=== PATIENT | male | born 1935 | race Caucasian/White ===

== ENCOUNTER 2024-09-30 15:45 | Inpatient (IN) | payer MEDICARE, BC, SELFPAY ==
[2024-09-30] VITALS (20 sets, daily range): BP systolic 117–175; BP diastolic 63–85; PULSE 82–103; RESP 10–20; TEMP 36.5–36.9; O2SAT 94–100; BMI 30.4
--- NOTE | ~2024-09-30 | US_ITS ---
EXAMINATION: US right upper quadrant DATE: 10/01/2024 08:03 INDICATION: Right upper quadrant abdominal pain TECHNIQUE: Multiple grayscale and Doppler ultrasound images of the abdomen were obtained. COMPARISON: None FINDINGS: The region of the pancreas is obscured by shadowing bowel gas. The visualized liver has normal echoge nicity and contour, with a smooth surface. No liver lesion identified. Portions of the lateral segmen t left hepatic lobe are not clearly visualized. There is mild central intrahepatic biliary ductal dil ation. Portal venous flow was seen in the hepatopetal, normal direction and has normal Doppler wavefo rm. There are multiple shadowing gallstones within the otherwise normal-appearing gallbladder. There is dilation of the common bile duct which measures up to 1.1 cm maximal diameter. The region of the d istal common bile duct is obscured. Sonographic Burroughs sign was reported as negative by the sonograph er. IMPRESSION: 1. Cholelithiasis with a normal-appearing gallbladder but with mild intra and extrahepatic biliary du ctal dilation which raises concern for a nonvisualized distal obstructing choledocholithiasis. Correl ate with liver function tests and if clinically indicated could consider further evaluation with [facility] er MRCP or ERCP. Reviewed, dictated and finalized at location A. IMPRESSION: 1. Cholelithiasis with a normal-appearing gallbladder but with mild intra and e xtrahepatic biliary ductal dilation which raises concern for a nonvisualized di stal obstructing choledocholithiasis. Correlate with liver function tests and i f clinically indicated could consider further evaluation with either MRCP or ER CP.
--- NOTE | ~2024-09-30 | NM_ITS ---
EXAMINATION: NM hepatobiliary wo pharm DATE: 10/05/2024 08:33 INDICATION: Cholecystitis. Assess for common bile duct obstruction. COMPARISON: None. TECHNIQUE: 5.4 mCi Tc-99m mebrofenin (Choletec) was administered intravenously. Scintigraphic images of the abdomen were obtained for one hour. At the 1 hour time point, the patient drank 8 oz Ensure, and imaging was continued for 60 minutes. Gallbladder ejection fraction was calculated by the technol ogist. FINDINGS: There is normal clearance of radiotracer from the blood pool. There is homogeneous tracer u ptake by the liver. Activity progresses to the common bile duct by 15 minutes with small bowel activ ity identified at 55 minutes. There is progressive accumulation of activity in the bowel to the subse quent 3 hours of imaging. No evident gallbladder activity which be consistent with acute cholecystiti s. IMPRESSION: 1. No evident gallbladder activity consistent with acute cholecystitis. Reviewed, dictated and finalized at location A.
--- NOTE | ~2024-09-30 | XR_ITS ---
XR chest 1V portable Ordering provider: Dang Lopez MD History: 88 years Male with . SOB; WHEEZING . Comparison: October 02, 2024 FINDINGS: MEDIASTINUM: The cardiac silhouette is slightly enlarged. Valve prosthesis is noted unchanged. Left bipolar pacemaker. Congestive marissa. LUNGS: No effusions or pneumothorax. Bilateral interstitial thickening. OTHER: No free air under the diaphragm. IMPRESSION: Cardiomegaly with cardiac decompensation and pulmonary edema. Pneumonitis is not excluded. Reviewed, dictated and finalized at location A. IMPRESSION: Cardiomegaly with cardiac decompensation and pulmonary edema. Pneumonitis is no t excluded.
--- NOTE | ~2024-09-30 | XR_ITS ---
Portable chest x-ray Comparison: 10/03/2024 Clinical History: CHF Findings: Lungs are clear, without focal consolidation or pleural effusion. Cardiomediastinal silho uette is stable, status post aortic valve replacement with pacemaker device. Bones and soft tissues a re unremarkable. Impression: Clear lungs. Status post aortic valve replacement, with pacemaker device. Reviewed, dictated and finalized at location . Impression: Clear lungs. Status post aortic valve replacement, with pacemaker device.
--- NOTE | ~2024-09-30 | US_ITS ---
EXAMINATION: US perc cholecystostomy w imag DATE: 10/05/2024 16:49 INDICATION: Acute cholecystitis TECHNIQUE: The procedure including the risks and benefits was discussed with the patient and the raul ent's . Risks discussed included bleeding including hemorrhage and bile peritonitis. Oral and wri tten consent were obtained from the patient's . The patient was confirmed to be receiving appropr iate antibiotic coverage. The skin overlying the liver and gallbladder was prepped and draped in usu al sterile fashion. Anesthetic was administered with 1% lidocaine subcutaneously. An 8.5 Fr cathete r was inserted through liver parenchyma into the gallbladder by trocar technique under continuous son ographic observation. The metal stiffener and trocar needle were removed, and the pigtail tip was loc ked. Bile was aspirated and sent for culture. The catheter was stitched to the skin with suture. Anti biotic ointment and a sterile dressing were applied. The catheter was then attached to gravity draina ge and was draining additional polyp the conclusion of the procedure. There were no immediate complic ations. FINDINGS: The gallbladder is dilated with wall thickening and stones and sludge, consistent with acut e cholecystitis. Ultrasound images demonstrate the catheter within the gallbladder. 35 mL of brownish -marisela-colored bile was aspirated. Final images show the formed pigtail catheter tip in the gallblad alan. IMPRESSION: 1. Successful ultrasound-guided cholecystostomy tube placement. 2. 35 mL bile was sent for aerobic, anaerobic, and fungal cultures. 3. The catheter will be managed by Dr. Brennan. Reviewed, dictated and finalized at location A.
--- NOTE | ~2024-09-30 | XR_ITS ---
EXAMINATION: XR chest 1V portable 10/02/2024 14:56 INDICATION: Fever PROCEDURE: AP portable chest COMPARISON: 09/30/2024 FINDINGS: The lungs are clear. The cardiomediastinal silhouette is within normal limits. There are no pleural effusions. There is no pneumothorax suspected. There is a prosthetic heart valve. Pacema ker leads in expected position. IMPRESSION: 1: NO ACUTE CARDIOPULMONARY DISEASE. Reviewed, dictated and finalized at location B.
--- NOTE | ~2024-09-30 | NM_ITS ---
EXAMINATION: NM hepatobiliary wo pharm DATE: 10/19/2024 11:16 INDICATION: Difficult cholecystectomy. Evaluate for bile leak. COMPARISON: CT dated 09/30/2024 TECHNIQUE: 5 mCi Tc-99m mebrofenin (Choletec) was administered intravenously. Scintigraphic images o f the abdomen were obtained for one hour. FINDINGS: There is normal clearance of radiotracer from the blood pool. There is homogeneous tracer u ptake by the liver. Activity progresses to the bowel common bile duct and small bowel by 25 minutes with progressive accumulation of activity in the small bowel over the subsequent 30 minutes. No evide nt bile leak IMPRESSION: 1. Normal post cholecystectomy hepatobiliary scan with no bile leak. Reviewed, dictated and finalized at location A.
--- NOTE | ~2024-09-30 | XR_ITS ---
EXAMINATION: XR chest 1V portable Exam Date/Time: 09/30/2024 16:05 CDT HISTORY: MID chest pain Comparison: None. RESULT: Lines, tubes, and devices: Left chest pacer with intact leads. Cardiac valve replacement. Lungs and pleura: Lordotic positioning. Low lines with crowding. Minimal bibasilar scar/atelectasis. Cardiomediastinal silhouette: Unremarkable. Other: No acute osseous or upper abdominal finding. IMPRESSION: No acute cardiopulmonary process. Reviewed, dictated and finalized at location K.
--- NOTE | ~2024-09-30 | US_ITS ---
EXAMINATION: US venous doppler [facility] DATE: 10/17/2024 12:16 INDICATION: Lower limb swelling TECHNIQUE: Grayscale ultrasound images without and with compression and Doppler ultrasound images of the bilateral lower extremity veins were obtained. COMPARISON: None. FINDINGS: The visualized portions of right common femoral vein, profunda (deep) femoral vein, femoral vein, pop liteal vein, posterior tibial veins, peroneal veins, gastrocnemius vein and greater saphenous vein ou tflow are patent. There is noncompressible occlusive appearing deep venous necrosis at the right calf in one of the ana red left peroneal veins. The second peroneal vein is patent and compressible. The visualized portions of left common femoral vein, profunda femoral vein, femoral vein, popliteal vein, posterior tibial v eins, gastrocnemius vein and greater saphenous vein outflow are patent. Small Reno's cyst at the rig ht popliteal fossa measuring 4.1 x 2.2 x 0.8 cm. IMPRESSION: 1. Right [id number] deep venous thrombosis in one of the paired right peroneal veins. Findings w ere discussed with Abeba crum, the nurse caring for the patient, at 1:07 PM. 2. No deep venous thrombosis in the left lower limb. 3. Small right Reno's cyst. Reviewed, dictated and finalized at location A. IMPRESSION: 1. Right [id number] deep venous thrombosis in one of the paired right kiaa suhail veins. Findings were discussed with Abeba crum, the nurse caring for the patient, at 1:07 PM. 2. No deep venous thrombosis in the left lower limb. 3. Small right Reno's cyst.
--- NOTE | ~2024-09-30 | XR_ITS ---
INTRAOPERATIVE FLUOROSCOPY: CLINICAL HISTORY: 88 years old Male; CHOLELITHIASIS/MULTIPLE STONES EXTRACTED PROCEDURE COMMENTS: Limited intraoperative fluoroscopy of the right upper quadrant was performed. CUMULATIVE DOSE: 67 mGy FLUOROSCOPY TIME: 150 seconds FINDINGS/IMPRESSION: Please refer to operative note for further details. Reviewed, dictated and finalized at location A.
--- NOTE | ~2024-09-30 | CT_ITS ---
EXAMINATION: CT abdomen pelvis wo con DATE: 09/30/2024 18:36 INDICATION: LLQ pain TECHNIQUE: Computed tomography (CT) of the abdomen and pelvis was performed without intravenous contr ast. Automated exposure control and iterative reconstruction technique were employed. The dose-length product was 915.14 mGy-cm. COMPARISON: 08/10/2018; 08/04/2018. FINDINGS: Lower thorax: Cardiac valve replacement. The tips of pacer wires terminate in expected position. Shar nary artery calcifications. Stable pleural-based right middle lobe nodule. Liver: Normal. Biliary/Gallbladder: Gallbladder is mildly distended. No inflammatory change. No stones. Common bile duct is dilated to 14 mm. No obstructing stone or mass detected. Pancreas: Fatty infiltration of mild atrophy. Spleen: Normal. Adrenals:Small left adrenal myelolipoma. Kidneys: No suspicious mass, obstructing stone, or hydronephrosis. GI tract: No small or large bowel dilation. Partial right hemicolectomy. Uncomplicated anastomosis. A ppendix surgically absent. Diverticulosis without diverticulitis. Mesentery/Peritoneum: No ascites, mass, or free air. Retroperitoneum: No mass. Atherosclerotic calcifications of intra-abdominal arterial vessels. Fusifor m infrarenal abdominal aortic aneurysm measuring up to 3.4 cm. Pelvis: Pelvic organs are within normal limits. Soft Tissues: Small uncomplicated fat-containing bilateral inguinal hernias. Bones: No acute osseous finding. Uncomplicated appearing fixation hardware in the right femoral neck . IMPRESSION: Gallbladder hydrops without inflammatory change. Dilated common bile duct, measuring 14 mm. No obstru cting stone or mass detected. Correlate with biliary labs. 3.4 cm fusiform infrarenal abdominal aortic aneurysm. Consider follow-up in 3 years. Reviewed, dictated and finalized at location K. IMPRESSION: Gallbladder hydrops without inflammatory change. Dilated common bile duct, twan uring 14 mm. No obstructing stone or mass detected. Correlate with biliary labs . 3.4 cm fusiform infrarenal abdominal aortic aneurysm. Consider follow-up in 3 y ears.
--- NOTE | ~2024-09-30 | XR_ITS ---
EXAMINATION: XR catheter cholangiogram DATE: 10/12/2024 12:44 INDICATION: Evaluate cystic duct patency TECHNIQUE: 11 fluoroscopic images of the right upper quadrant were obtained during injection of 40 mL water-soluble contrast into the patient's right percutaneous cholecystostomy tube. At the conclusion of the procedure contrast was aspirated from the gallbladder, the catheter flushed with 10 mL steril e saline and and reaspirated and then attached to gravity drainage. The amount of fluoroscopy time us ed during this procedure was 0.6 minutes. Total DAP was 9.344 mGym^2. COMPARISON: CT dated 09/30/2024 FINDINGS: There are multiple filling defects consistent with sludge or gallstones within the gallbladder. The c ystic duct is patent with contrast extending to the common bile duct which remains dilated to 12 mm. There are numerous additional small lucent filling defects consistent with sludge and/or stone within the distal common bile duct. There is reflux of contrast into the mildly dilated central intrahepati c biliary ductal tree but no evident emptying of the common bile duct into the duodenum. IMPRESSION: 1. Cholelithiasis and choledocholithiasis obstructing distal choledocholithiasis with no observed con trast emptying into the duodenum. The cystic duct is patent. Consider ERCP for stone extraction and s phincterotomy to relieve the distal ductal obstruction. Reviewed, dictated and finalized at location B. IMPRESSION: 1. Cholelithiasis and choledocholithiasis obstructing distal choledocholithiasi s with no observed contrast emptying into the duodenum. The cystic duct is piedra nt. Consider ERCP for stone extraction and sphincterotomy to relieve the distal ductal obstruction.
--- NOTE | ~2024-09-30 | XR_ITS ---
XR chest 2V Ordering provider: Shanel Pendleton APRN History: 88 years Male with . Preop, heart failure . Comparison: October 10, 2024 FINDINGS: MEDIASTINUM: The cardiac silhouette is slightly enlarged. Left bipolar pacemaker. Valve prosthesis is noted. LUNGS: No effusions or pneumothorax. Minimal Haziness is seen in the left lung base.. OTHER: No free air under the diaphragm. IMPRESSION: No significant change from previous examination. Reviewed, dictated and finalized at location A.
--- NOTE | ~2024-09-30 | XR_ITS ---
EXAMINATION: XR ankle LT min 3V, XR foot LT min 3V DATE: 10/22/2024 10:01 INDICATION: Left foot and ankle pain with weightbearing TECHNIQUE: 1. Anteroposterior, mortise and lateral view of the left ankle were obtained. 2. Dorsoplantar, oblique and lateral views of the left foot were obtained. COMPARISON: None. FINDINGS: Alignment of the left foot and ankle is normal. Nondisplaced extra articular fracture at the base of the fourth proximal phalanx with buckling along the lateral sided cortex. There appears be some assoc iated callus formation suggesting this is subacute. Correlate 4. Tenderness at this location and with clinical history. No other fractures identified. Mild polyarticular osteoarthritis at the talonavicu lar, first metatarsophalangeal and several tarsal metatarsal and interphalangeal joints. No ankle kyle nt effusion. The soft tissues are unremarkable. IMPRESSION: 1. Age-indeterminate, potentially subacute nondisplaced extra-articular fracture at the base of the l eft fourth proximal phalanx. Reviewed, dictated and finalized at location B. IMPRESSION: 1. Age-indeterminate, potentially subacute nondisplaced extra-articular fractur e at the base of the left fourth proximal phalanx.
--- NOTE | 2024-09-30 15:49 | ECG_ITS ---
Test Date: 2024-09-30 15:49:49 Measurements Intervals [place] Rate: 97 P: 15 [place]: 215 QRS: -17 QRSD: 152 T: -9 QT: 428 QTc: 546 Interpretive Statements SINUS RHYTHM WITH FIRST DEGREE AV BLOCK POSSIBLE LEFT ATRIAL ENLARGEMENT RIGHT BUNDLE BRANCH BLOCK BASELINE ARTIFACT- I, II, III, AVR, AVL, AVF, V1-V6 ABNORMAL ECG No previous ECG available for comparison Electronically Signed On 10-01-2024 08:20:03 CDT by Rachid Farnsworth D.O.
[2024-09-30 16:08] LABS: Hematocrit 38.3 % (37.0-47.0); Hemoglobin 12.0 g/dL (12.0-15.0); Mean Corpuscular HGB Conc 31.3 g/dl (32-36); Mean Corpuscular Hemoglobin 29.3 pg (26-34); Mean Corpuscular Volume 93.6 fl (80-100); Platelet Count Result 197 k/mm3 (150-375); Red Blood Count 4.09 M/mm3 (4.2-5.4); White Blood Count 18.1 K/mm3 (4.5-10.0)
[2024-09-30 16:23] LABS: INR 1.1; Prothrombin Time 14.2 Seconds (11.1-14.7)
[2024-09-30 16:24] LABS: Partial Thromboplastin Time 32.4 Seconds (22.3-36.8)
[2024-09-30 16:31] LABS: Alanine Aminotransferase 23 U/L (6-35); Albumin Level 4.4 g/dL (3.5-5.1); Alkaline Phosphatase 82 U/L (38-126); Anion Gap 11 mmol/L (4-12); Aspartate Amino Transferase 33 U/L (14-36); Bilirubin,Total 0.8 mg/dL (0.2-1.3); Blood Urea Nitrogen 120 mg/dL (7-17); Calcium 9.7 mg/dL (8.4-10.2); Carbon Dioxide 33 mmol/L (22-30); Chloride 89 mmol/L (98-107); Estimated CRCL calculation 11 ml/min; Estimated Glomerular Filt Rate 11; Glucose 218 mg/dL (65-110); Lipase 16 U/L (23-300); Potassium 3.6 mmol/L (3.4-5.0); Sodium 133 mmol/L (137-145); Total Protein 7.9 g/dL (6.3-8.2); Troponin I 0.053 ng/mL (0.000-0.034)
[2024-09-30 16:35] LABS: Band Neutrophils Percent 5 % (0-6); Lymphocytes Absolute Manual 0.18 K/mm3 (1.1-4.5); Lymphocytes Percent Manual 1.0 % (18-44); Monocytes Absolute Manual 0.90 K/mm3 (0.1-0.90); Monocytes Percent Manual 5 % (3-9); Neutrophils Absolute Manual 17.01 K/mm3 (1.3-6.7); Neutrophils Percent Manual 89 % (46-73); Total Cells Counted 100
[2024-09-30 16:36] LABS: Anisocytosis 1+; Hypochromasia 1+; Schistocytes None Seen
--- OUTSIDE RECORDS SUMMARY | 2024-09-30 17:24 | XMS_ITS | Clinical Summary ---
Author Organization [facility] Facility Address [address] [place] [id number] Care Team Providers Care Director Clinical Pharmacology Name Role Phone Unavailable Primary Care Provider Unavailabl e Social History Tobacco Use Types Packs/Day Years Used Date Smoking Tobacco: Never Assessed Sex and Gender Information Value Date Recorded Sex Assigned at Not on file Legal Sex Male 10:57 AM EDT Gender Identity Not on file Sexual Orientation Not on file Plan of Treatment Health Maintenance Due Date Last Done Comments Pneumococcal Vaccine: 50+ Years (2 of 2 - PCV) 12/24/2009 12/24/2008, 05/21/2007 Diabetes: Hemoglobin A1C 05/30/2023 Diabetes: Ophthalmology Exam 05/30/2023 Diabetes: Pedal Pulse Checked 05/30/2023 Diabetes: Sensory Foot Exam 05/30/2023 Diabetes: Visual Foot Exam 05/30/2023 Influenza Vaccine (Season Ended) 2024 04/22/2020 Hepatitis B Vaccine Aged Out No longe r eligible based on patient's age to complete this topic Insurance Medicare [place]
--- OUTSIDE RECORDS SUMMARY | 2024-09-30 17:24 | XMS_ITS | CONTINUITY OF CARE DOCUMENT ---
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 Eliane Garcia Cardiology examination active Hayder carnes MD Aortic stenosis, severe s/p TAVR 05/23/23 active 09/01 Hayder Penn MD Swelling of bilateral legs active Hayder Penn MD Fatigue active Hayder Penn MD Hyperlipidemia active Hayder Penn MD Hypertension active Hayder Penn MD CKD active Hayder Penn MD BPH active Hayder Penn MD Diabetes, Type 2 active Hayder Penn MD Right bundle branch block active Hayder patino MD Cardiology examination active Hayder carnes MD ENCOUNTERS Date Type Provider Location Encounter Diag nosis - In-person encounter Office Visit Hayder Penn MD [facility] Cardiology examination - In-person encounter Office Visit Hayder Penn MD [facility] Right bundle branch block - In-person encounter Office Visit Hayder Penn MD [facility] Aortic stenosis, severe s/p TAVR 05/23/23 - In-person encounter Office Visit Hayder Penn MD [facility] Diabetes, Type 2 - In-person encounter Office Visit Hayder Penn MD [facility] - In-person encounter Office Visit Hayder Penn MD [facility] Cardiology examinationAortic stenosis, s evere s/p TAVR 05/23/23Swelling of bilateral legsFatigueHyperlipidemiaHypertensionCKDBPH VITAL SIGNS Date Observation Value Provider Body Mass Index (Ratio) 32.54 kg/m2 Ollie Penn MD blood pressure, diastolic 77 mm[Hg] Ashley nkLogcynthia blood pressure, systolic 182 mm[Hg] Odalis Kaylynnogcynthia blood pressure, systolic 182 mm[Hg] Madhu Aguilar blood pressure, diastolic 77 mm[Hg] Kale Aguilar blood pressure, cuff size regular Fa gilles Aguilar oxygen saturation, oximetry 98 % Issac Aguilar pulse rate 70 /min Issac Aguilar weight E&M 214 [lb_av] Issac Aguilar height E&M 68 [in_i] Issac Aguilar Body Mass Index (Ratio) 32.60 kg/m2 Ollie Penn MD blood pressure, cuff size regular Ol ivia Purdy blood pressure, diastolic 68 mm[Hg] Ol ivia Purdy blood pressure, systolic 156 mm[Hg] Arjun via Purdy pulse rate 75 /min Itzel Purdy oxygen saturation, oximetry 96 % Itzel Purdy respiratory rate E&M 12 /min Itzel Purdy weight E&M 214.4 [lb_av] Itzel Purdy height E&M 68 [in_i] Itzel Purdy Body Mass Index (Ratio) 31.01 kg/m2 Ollie Penn MD blood pressure, diastolic 68 mm[Hg] Ashley nkLogcynthia blood pressure, systolic 138 mm[Hg] Odalis kLic blood pressure, cuff size regular Wally Santizo blood pressure, diastolic 68 mm[Hg] Ta ebony Santizo blood pressure, systolic 138 mm[Hg] Tab celine Santizo oxygen saturation, oximetry 98 % Chitra Santizo pulse rate 67 /min Chitra Santizo respiratory rate E&M 12 /min Chitra Santizo weight E&M 204 [lb_av] Chitra Santizo height E&M 68 [in_i] Chitra Santizo blood pressure, cuff size regular Ja rret blood pressure, diastolic 69 mm[Hg] Ja rret blood pressure, systolic 132 mm[Hg] Jar ret pulse rate 79 /min [facility]zair y oxygen saturation, oximetry 100 % [facility] respiratory rate E&M 14 /min [facility] height E&M 68 [in_i] [facility] da y Body Mass Index (Ratio) 31.77 kg/m2 Ollie Penn MD blood pressure, diastolic 76 mm[Hg] Li nkLogcynthia blood pressure, systolic 165 mm[Hg] Odalis kLogic blood pressure, cuff size regular Ja rret blood pressure, diastolic 76 mm[Hg] Ja rret blood pressure, systolic 165 mm[Hg] Omkar ret oxygen saturation, oximetry 96 % Uzair respiratory rate E&M 12 /min pulse rate 81 /min [facility] weight E&M 209 [lb_av] Uzair height E&M 68 [in_i] Uzair y Body Mass Index (Ratio) 31.32 kg/m2 Michell griffin Antonia blood pressure, cuff size regular Ke rri Jonathanuene blood pressure, diastolic 80 mm[Hg] Ke rri Grueneeld blood pressure, systolic 150 mm[Hg] Rodriguez ri Chanielder oxygen saturation, oximetry 97 % Joleen Candiser respiratory rate E&M 12 /min Joleen G britenenfelder pulse rate 74 /min Joleen Chanie lder weight E&M 206 [lb_av] Joleen Chanie lder height E&M 68 [in_i] Joleen Juniornenfe lder ALLERGIES Allergy Name Onset Date Reaction Criticality Status LIPITOR due to kidneys High Criticality acti ve RESULTS Date Observation Value Provider Reference Range Interpretation Location Estimated Glomerular Filtration Rate (calc) 21 mL/min/{ 1.73_m2} [facility] C, [place] [address] NT-pro BNP 452 [facility] <=450 High C, [place] [address] aspartate aminotransferase (SGOT), serum 13 1/L [facility] 10-50 Normal C, [place] [address] alanine aminotransferase (SGPT), serum 15 1/L [facility] 7-55 Normal C, [place] [address] Alkaline phosphatase 101 [facility] 40-130 Normal C, [place] [address] albumin, serum 4.0 g/dL [facility] 3.5-5.0 Normal C, [place] [address] protein, total, serum 6.9 g/dL [facility] 6.5-8.5 Normal C, [place] [address] bilirubin, serum, total 0.2 mg/dL [facility] 0.1-1.2 Normal , [place] [address] calcium, serum 9.1 mg/dL [facility] 8.5-10.3 Normal , [place] [address] blood glucose, random 129 mg/dL [facility] 70-199 Normal C, [place] [address] creatine, serum 2.90 mg/dL [facility] 0.80-1.30 High , [place] [address] urea nitrogen, blood 70 mg/dL [facility] 6-25 High C, [place] [address] anion gap, serum 13 mmol/L [facility] 2-15 Normal C, [place] [address] carbon dioxide, venous blood 22 mmol/L [facility] 22-32 Normal C, [place] [address] chloride, serum 108 mmol/L [facility] 97-110 Normal , [place] [address] potassium, serum 5.1 MMOL/L [facility] 3.3-4.9 High [place] [address] sodium, serum 143 mmol/L [facility] 135-145 Normal C, [place] [address] activated partial thromboplastin time (aPTT) 33 s [facility] 28-38 Normal C, [place] [address] international normalized ratio (INR) 0.97 [facility] 0.90-1.20 Normal C, [place] [address] prothrombin time (patient) 11.1 s [facility] 10.3-13.7 Normal C, [place] [address] Absolute Basophils 0.0 K/CUMM [facility] 0.0-0.1 Normal C, [place] [address] Absolute Monocytes 0.8 K/CUMM [facility] 0.2-0.8 Normal C, [place] [address] Absolute Lymphocytes 1.3 K/CUMM [facility] 0.8-3.3 Normal C, [place] [address] Absolute Neutrophils 5.1 K/CUMM [facility] 1.5-6.5 Normal C, [place] [address] nucleated red blood cells as percent of blood leukocytes 0.00 K/CUMM [facility] 0.00-0.01 Normal red blood cell distribution width, size density 51.8 fL [facility] 35.7-48.1 High mean corpuscular hemoglobin concentration, RBC 30.4 G/DL [facility] 32.3-35.7 Low mean corpuscular hemoglobin, RBC 28.4 pg [facility] 27.1-33.3 Normal mean corpuscular volume, RBC 93.2 fL [facility] 81.3-96.4 Normal erythrocyte count, whole blood 3.70 M/CUMM [facility] 4.30-5.80 Low mean platelet volume 9.7 fL [facility] 9.1-12.3 Normal platelet count 283 10*3/uL [facility] 150-400 Normal hematocrit, blood 34.5 % [facility] 38.9-50.3 Low hemoglobin, blood 10.5 g/dL [facility] 13.0-17.5 Low HISTORY OF MEDICATION USE Medication Status Instructions Dates Provider Indications Com ments verapamil 120 mg tablet active Take 1 tablet by mouth twice a day Hayder Penn MD metolazone 5 mg tablet active Hayder Penn MD tamsulosin 0.4 mg capsule active Hayder Penn MD furosemide 40 mg tablet active TAKE 1 TABLET BY MOUTH EVERY DAY 11/14 [facility] clopidogrel 75 mg tablet active TAKE 1 TABLET BY MOUTH EVERY DAY 11/14 Zuri Stephenson losartan 50 mg tablet completed Take 1 tablet by mouth once a day - 07/18 Hayder Penn MD morphine 15 mg tablet active as needed amlodipine 10 mg tablet completed Take 1 tablet by mouth once a day - 07/18 Hayder Penn MD clopidogrel 75 mg tablet completed Take 1 tablet by mouth once a day - 11/14 [facility] pioglitazone 15 mg tablet active Take 1 tablet by mouth once a day famotidine 20 mg tablet active Take 1 tablet by mouth twice a day [facility] doxycycline monohydrate 100 mg tablet completed TAKE 1 TABLET BY MOUTH TWICE DAILY FOR 5 DAYS 06/13 - 06/28 [facility] doxycycline monohydrate 100 mg tablet completed Take 1 tablet twice daily for 5 days 06/01 - 06/13 Yusra Curtis furosemide 20 mg tablet completed Take 1 tablet by mouth once a day - 11/14 [facility] fluticasone propionate 50 mcg/actuation spray,suspension active as needed amlodipine 5 mg tablet completed TAKE 1 TABLET BY MOUTH DAILY - 06/15 Hayder Penn MD doxazosin 8 mg tablet active Take 1 tablet by mouth once a day Joleen Rhodes ezetimibe 10 mg tablet active Take 1 tablet by mouth once daily Joleen Rhodes finasteride 5 mg tablet active Take 1 tablet by mouth every night Joleen Carmelo hydrochlorothiazide 12.5 mg tablet completed Take 1 tablet by mouth once a day replaces chlorthalidone - 04/25 [facility] SOCIAL HISTORY Date Observation Value Provider smoking status Never smoker Hayder carnes MD smoking status Never smoker Hayder carnes MD smoking status Never smoker Hayder carnes MD smoking status Never smoker Helder Pascual smoking status Never smoker Hayder carnes MD social history reviewed E&M revi ewed - no changes required Hayder Penn MD social history E&M S moking History: Aj salazar has never smoked. Hayder Penn MD social history reviewed E&M revi ewed - no changes required Hayder Penn MD smoking status Never smoker Joleen joseph INSURANCE PROVIDERS Payer name Policy type / Coverage type [place] [employer] party ID [facility] [id number] 1 [place] MED[employer] Medicare [id number] ADVANCE DIRECTIVES Name Date DISCUSSED - NO DECISION MADE TREATMENT PLAN Date Name Performer [id number],S, S evere per echo. Discussed with him proceed with a cardaic cath to further assess the aortic vavle as well as the coronary arteries. Discussed as well having his aortic valve replaced with either TAVR. I discussed the risks and benefits with him. H ad cath scheduled in August but was cancelled due to broken hip, will reschedule keeping in mind CKD and elevated creatinine Hayder Penn MD [id number],C,sees nephrolo gist Hayder Penn MD [id number],C,mild fatigue Hayder Penn MD [id number],S, S evere per echo. Discussed with him proceed with a cardaic cath to further assess the aortic vavle as well as the coronary arteries. Discussed as well having his aortic valve replaced with either TAVR. I discussed the risks and benefits with him. H ad cath scheduled in August but was cancelled due to broken hip, will reschedule keeping in mind CKD Hayder Penn MD [id number],S, B P today: 165/76 P rior BP: 150/80 (09/01/2022) The following medications were removed from the medication list: Hydrochlorothiazide 12.5 Mg Tablet (Hydrochlorothiazide) ..... Take 1 tablet by mouth once a day replaces chlorthalidone His updated medication list for this problem includes: Furosemide 20 Mg Tablet (Furosemide) Amlodipine 5 Mg Tablet (Amlodipine) ..... Take 1 tablet by mouth daily Doxazosin 8 Mg Tablet (Doxazosin) ..... Take 1 tablet by mouth once a day Hayder Penn MD [id number],S, H is updated medication list for this problem includes: Ezetimibe 10 Mg Tablet (Ezetimibe) ..... Take 1 tablet by mouth once daily Hayder Penn MD [id number],C, S evere per echo. Discussed with him proceed with a cardaic cath to further assess jesus aortic vavle as well as the coronary arteries. Discussed as well having his aortic valve replaced with either TAVR or full surgery. I discussed the risks and benefits with him. He has CKD, so we will obtain BMP to assess his renal function and assess if he able to receive contrast Hayder Penn MD [id number],C, R esolved since being put on HCTZ and being diuresed in the hospital Hayder Penn MD [id number],C, C ontinues on Zetia. Recent LDL is 86. Advised LDL < 70 Hayder Penn MD [id number],C,B P elevated today at 150/80. Advised reduced sodium intake and routine monitoring of the blood pressure. We aim for less than 130/80. Hayder Penn MD Cardiology:BP marked ly elevated today. Losartan and amlodipine reportedly discontinued. We will increase verapamil 120 mg twice daily. Until out of current stock advised to take 3 tablets of 40 mg daily. once he runs out, start taking 120mg tablets twice daily.Also recommend to continue to check BP daily and keep diary of readings BP today: 182/77 P rior BP: 156/68 (05/23/2024) & #13;The following medications were removed from the medication list: Losartan 50 Mg Tablet (Losartan) ..... Take 1 tablet by mouth once a day Amlodipine 10 Mg Tablet (Amlodipine) ..... Take 1 tablet by mouth once a day His updated medication list for this problem includes: Verapamil 120 Mg Tablet (Verapamil) ..... Take 1 tablet by mouth twice a day Metolazone 5 Mg Tablet (Metolazone) Furosemide 40 Mg Tablet (Furosemide) ..... Take 1 tablet by mouth every day Doxazosin 8 Mg Tablet (Doxazosin) ..... Take 1 tablet by mouth once a day Hayder Penn MD Cardiology:aortic bi oprosthetic valve is well visualized and normal-appearing on most recent echo Hayder Penn MD Cardiology: A im for LDL below 70 His updated medication list for this problem includes: Ezetimibe 10 Mg Tablet (Ezetimibe) ..... 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 Vaughan. Hayder Penn MD Cardiology:3+ b/l on multiple di uretics Hayder Penn MD Cardiology:BP marked ly elevated today. Losartan and amlodipine reportedly discontinued. We will increase verapamil 120 mg twice daily. Until out of current stock advised to take 3 tablets of 40 mg daily. Also recommend to continue to check BP daily and keep diary. B P today: 182/77 P rior BP: 156/68 (05/23/2024) The following medications were removed from the medication list: Losartan 50 Mg Tablet (Losartan) ..... Take 1 tablet by mouth once a day Amlodipine 10 Mg Tablet (Amlodipine) ..... Take 1 tablet by mouth once a day His updated medication list for this problem includes: Verapamil 120 Mg Tablet (Verapamil) ..... Take 1 tablet by mouth twice a day Metolazone 5 Mg Tablet (Metolazone) Furosemide 40 Mg Tablet (Furosemide) ..... Take 1 tablet by mouth every day Doxazosin 8 Mg Tablet (Doxazosin) ..... Take 1 tablet by mouth once a day Hayder Penn MD Cardiology:He has be en pioglitazone which has the ability to retain fluids. If you agree, this may be discontinued if his BP remains elevated and replaced with alternative. Hayder Penn MD Cardiology:Noted on EKG today an d prior EKG Hayder Penn MD Cardiology: A im for LDL below 70 H is updated medication list for this problem includes: Ezetimibe 10 Mg Tablet (Ezetimibe) ..... Take 1 tablet by mouth once daily Hayder Penn MD Cardiology:rare epis odes. Was given metolazone in addition for better management by nephro. Denies BLE edema at present. Hayder Penn MD Cardiology:follows with nephrolo gist Dr. Alexus Penn MD Cardiology: M anaged by PCP His updated medication list for this problem includes: Pioglitazone 15 Mg Tablet (Pioglitazone) ..... Take 1 tablet by mouth once a day Losartan 50 Mg Tablet (Losartan) ..... Take 1 tablet by mouth once a day Hayder Penn MD Cardiology:Advised t o check bp at home and continue to monitor BP today: 156/68 P rior BP: 138/68 (12/07/2023) His updated medication list for this problem includes: Verapamil 80 Mg Tablet (Verapamil) Metolazone 5 Mg Tablet (Metolazone) Furosemide 40 Mg Tablet (Furosemide) ..... Take 1 tablet by mouth every day Amlodipine 10 Mg Tablet (Amlodipine) ..... Take 1 tablet by mouth once a day Losartan 50 Mg Tablet (Losartan) ..... Take 1 tablet by mouth once a day Doxazosin 8 Mg Tablet (Doxazosin) ..... Take 1 tablet by mouth once a day This visit has been a part of the consistent, comprehensive, and ongoing management of the chronic medical condition(s) listed above for the patient. Hayder Penn MD Cardiology: S /p TAVR in [facility] improved s oft murmur on exam check echo at followup Hayder Penn MD Cardiology:Managed b y PCP H is updated medication list for this problem includes: Pioglitazone 15 Mg Tablet (Pioglitazone) ..... Take 1 tablet by mouth once a day Losartan 50 Mg Tablet (Losartan) ..... Take 1 tablet by mouth once a day Hayder Penn MD Cardiology:Aim for L DL below 70 H is updated medication list for this problem includes: Ezetimibe 10 Mg Tablet (Ezetimibe) ..... Take 1 tablet by mouth once daily Hayder Penn MD Cardiology:S/p TAVR in [facility] improved Hayder Penn MD Cardiology: B P today: 138/68 P rior BP: 132/69 (06/29/2023) His updated medication list for this problem includes: Furosemide 40 Mg Tablet (Furosemide) ..... Take 1 tablet by mouth every day Amlodipine 10 Mg Tablet (Amlodipine) ..... Take 1 tablet by mouth once a day Losartan 50 Mg Tablet (Losartan) ..... Take 1 tablet by mouth once a day Doxazosin 8 Mg Tablet (Doxazosin) ..... Take 1 tablet by mouth once a day Hayder Penn MD Cardiology: H is updated medication list for this problem includes: Ezetimibe 10 Mg Tablet (Ezetimibe) ..... Take 1 tablet by mouth once daily Hayder Penn MD Cardiology:Patient edy lockhart discuss with PCP regarding pioglitazone as it is not being used regularly anymore. His updated medication list for this problem includes: Pioglitazone 15 Mg Tablet (Pioglitazone) ..... Take 1 tablet by mouth once a day Losartan 50 Mg Tablet (Losartan) ..... 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 Discussed with him proceed with a cardaic cath to further assess the aortic vavle as well as the coronary arteries. Discussed as well having his aortic valve replaced with either TAVR. I discussed the risks and benefits with him. H ad cath scheduled in August but was cancelled due to broken hip, will reschedule keeping in mind CKD and elevated creatinine Hayder Penn MD Cardiology:sees parking enforcement specialist Shon Penn MD Cardiology:mild fatigue Hayder Penn MD Cardiology: S joselito per echo. Discussed with him proceed with a cardaic cath to further assess the aortic vavle as well as the coronary arteries. Discussed as well having his aortic valve replaced with either TAVR. I discussed the risks and benefits with him. H ad cath scheduled in August but was cancelled due to broken hip, will reschedule keeping in mind CKD Hayder Penn MD Cardiology: B P today: 165/76 P rior BP: 150/80 (09/01/2022) The following medications were removed from the medication list: Hydrochlorothiazide 12.5 Mg Tablet (Hydrochlorothiazide) ..... Take 1 tablet by mouth once a day replaces chlorthalidone His updated medication list for this problem includes: Furosemide 20 Mg Tablet (Furosemide) Amlodipine 5 Mg Tablet (Amlodipine) ..... Take 1 tablet by mouth daily Doxazosin 8 Mg Tablet (Doxazosin) ..... Take 1 tablet by mouth once a day Hayder Penn MD Cardiology: H is updated medication list for this problem includes: Ezetimibe 10 Mg Tablet (Ezetimibe) ..... Take 1 tablet by mouth once daily Hayder Penn MD Cardiology: S evere per echo. Discussed with him proceed with a cardaic cath to further assess jesus aortic vavle as well as the coronary arteries. Discussed as well having his aortic valve replaced with either TAVR or full surgery. I discussed the risks and benefits with him. He has CKD, so we will obtain BMP to assess his renal function and assess if he able to receive contrast Hayder Penn MD Cardiology: R esolved since being put on HCTZ and being diuresed in the hospital Hayder Penn MD Cardiology: C ontinues on Zetia. Recent LDL is 86. Advised LDL < 70 Hayder Penn MD Cardiology:BP elevat ed today at 150/80. Advised reduced sodium intake and routine monitoring of the blood pressure. We aim for less than 130/80. Hayder Penn MD Date Name Complete Echo EKG PROTHROMBIN TIME WIT H INR LIPID PANEL CBC (INCLUDES DIFF/P LT) BASIC METABOLIC PANE L W/EGFR HISTORY OF PROCEDURES Procedure Date Procedure Name Provider Procedure Notes S tatus Complex e/m visit add on Hayder Penn MD completed EKG Hayder Penn MD complet ed Complex e/m visit add on Hayder Penn MD completed Complex e/m visit add on Hayder Penn MD completed EKG Hayder Penn MD complet ed EKG Hayder Penn MD complet ed EKG Hayder Penn MD complet ed
--- OUTSIDE RECORDS SUMMARY | 2024-09-30 17:24 | XMS_ITS | Referral Summary ---
Author Organization [facility] Address [address] [place] [phone] Care Team Providers Care Wash Tub Machine Operator Name Role Phone Eric Duong MD Primary Care Provider Hayder Penn MD Unavailable [phone] Allergies Active Allergy Reactions Criticality Noted Date Comments Atorvastatin Rosuvastatin Grgjfvf-Wua-Wnl Reductase Inhibitors Muscle pain Medium 11/21/2018 Other: myalgias Medications amLODIPine (NORVASC) 10 mg tablet Take 1 tablet (10 mg total) by mouth daily Active doxazosin (CARDURA) 8 mg tablet Take 1 tablet (8 mg total) by mouth daily 04/04/2023 Active ezetimibe (ZETIA) 10 mg tablet Take 1 tablet (10 mg total) by mouth daily Active famotidine (PEPCID) 20 mg tablet Take 1 tablet (20 mg total) by mouth 2 (two) times a day Active finasteride (PROSCAR) 5 mg tablet Take 1 tablet (5 mg total) by mouth daily Active furosemide (LASIX) 20 mg tablet Take 1 tablet (20 mg total) by mouth daily 05/05/2023 Active morphine (MSIR) 15 mg tablet Take 1 tablet (15 mg total) by mouth every 8 (eight) hours as needed Active clopidogreL (PLAVIX) 75 mg tabletIndication s:coronary artery disease Take 1 tablet (75 mg total) by mouth daily 90 tablet 1 05/25/2023 Active furosemide (LASIX) 40 mg tablet Take 1 tablet (40 mg total) by mouth daily 90 tablet 1 05/25/2023 Active Active Problems Problem Noted Date Diagnosed Date S/p TAVR (transcatheter aort ic valve replacement), bioprosthetic 05/23/2023 AV block 05/23/2023 Nonrheumatic aortic valve stenosis 04/26/2023 Other spondylosis with radiculopathy, lumbar reg ion 11/20/2018 Spondylosis 11/20/2018 Benign prostatic hyperplasia without lower urinary tract symptoms 09/05/2017 Chronic kidney disease, stage IV (severe) 2017 Essential (primary) hypertension 09/05/2017 Hyperlipidemia 09/05/2017 Type 2 diabetes mellitus wit h diabetic chronic kidney disease 09/05/2017 Social History Tobacco Use Types Packs/Day Years Used Date Smoking Tobacco: Never Smokeless Tobacco: Never Tobacco Cessation:Counseling Given: Not Answered Alcohol Use Standard Drinks/Week Comments No 0 (1 standard drink = 0.6 oz pur e alcohol) [facility] Utilities Answer Date Recorded In the past 12 months has e [employer], gas, oil, or water company threatened to shut off services in your home? No 05/23/2023 Social Connection and Isolat ion Panel [NHANES] Answer Date Recorded In a typical week, how many times do you talk on the phone with family, friends, or neighbors? More than three times a week 05/23/2023 How often do you get togethe r with friends or relatives? More than three times a week 05/23/2023 How often do you attend chur ch or tenriism services? More than 4 times per year 05/23/2023 Do you belong to any clubs o r organizations such as baptism groups, unions, fraternal or athletic groups, or school groups? No 05/23/2023 How often do you attend meet ings of the clubs or organizations you belong to? Never 05/23/2023 Are you , , di vorced, , never , or living with a partner? 05/23/2023 AUDIT-C Answer Date Recorded Frequency of Alcohol Consumption Not on file 05/10/2023 Q2: How many drinks containi ng alcohol do you have on a typical day when you are drinking? Patient does not drink Frequency of Binge Drinking Not on file 04/25 Overall Financial Resource Strain (CARDIA) Answe r Date Recorded How hard is it for you to pa y for the very basics like food, housing, medical care, and heating? Not hard at all 05/23/2023 PHQ-2 Answer Date Recorded PHQ-2 Total Score (If total score is 3 or more points, staff should administer the PHQ-9) 0 05/23/2023 Hunger Vital Sign Answer Date Recorded Within the past 12 months, y ou worried that your food would run out before you got the money to buy more. Never true 05/23/19 24 Within the past 12 months, t he food you bought just didn't last and you didn't have money to get more. Never true 05/23/2023 PRAPARE - Transportation Answer Date Re corded In the past 12 months, has l ack of transportation kept you from medical appointments or from getting medications? No 04/26 In the past 12 months, has l ack of transportation kept you from meetings, work, or from getting things needed for daily living? No 05/23/2023 Housing Stability Vital Sign Answer Jay Jay e Recorded In the last 12 months, was t here a time when you were not able to pay the mortgage or rent on time? No 05/23/2023 In the last 12 months, how many places have you lived? 1 05/23/2023 In the last 12 months, was t here a time when you did not have a steady place to sleep or slept in a group home (including now)? No 05/23/2023 Personal Safety Answer Date Recorded Have you ever been in or are you currently in a harmful physical or emotional relationship or is someone making you feel afraid or unsafe? Denies 05/24/2023 Sex and Gender Information Value Date Recorded Sex Assigned at Not on file Legal Sex Male 3:02 AM RECONCILEMENT CLERK Gender Identity Not on file Sexual Orientation Not on file Last Filed Vital Signs Vital Sign Reading Time Taken Comments Blood Pressure 172/75 05/25/2023 12:04 PM RECONCILEMENT CLERK Pulse 100 05/25/2023 12:04 PM RECONCILEMENT CLERK Temperature 36.9 C (98.4 F) 05/25/2023 7:38 AM RECONCILEMENT CLERK Respiratory Rate 18 05/25/2023 12:04 PM RECONCILEMENT CLERK Oxygen Saturation 98% 05/25/2023 12:04 PM RECONCILEMENT CLERK Inhaled Oxygen Concentration - - Weight 89.9 kg (198 lb 4.8 oz) 05/25/2023 6:00 A M RECONCILEMENT CLERK Height 172.7 cm (5' 8) 05/24/2023 5:20 PM RECONCILEMENT CLERK Body Mass Index 30.15 05/24/2023 5:20 PM RECONCILEMENT CLERK Plan of Treatment Not on file Medical Devices Implanted Type Area Forgesmith Device Identifier Shelf Expiration Date Model / Serial / Lot [employer] V[employer] Device Clsr Perclose Prostyle Sut-Mediatd Closure-Repair Sys 82546-71 - [id number] Implanted:Qty: 1 on 05/23/2023 by Hu Chapman MD at [facility] [employer] 02/22/2025 [id number] / / [id number] [employer] Device Clsr Perclose Prostyle Sut-Mediatd Closure-Repair Sys 52989-45 - [id number] Implanted:Qty: 1 on 05/23/2023 by Hu Chapman MD at [facility] Vascular 02/22/2025 [id number] / / [id number] [employer] Devendra 3 Commander [place] 26mm Transcatheter Ultra Low Profile [id number] - [id number] - [id number] Implanted:Qty: 1 on 05/23/2023 by Hu Chapman MD at [facility] [employer] 01/25/2026 [id number] / [id number] / [employer] Promri Solia S 60cm Lead Pacing Steroid Eluting [id number] - [id number] - [id number] Implanted:Qty: 1 on 05/24/2023 by Hayder Penn MD at [facility] Left: Chest [employer] 02/22/2025 [id number] / [id number] / [employer] Solia S 53cm Steroid Elute Bipolar Active Fixation Endocardial [id number] - [id number] - [id number] Implanted:Qty: 1 on 05/24/2023 by Hayder Penn MD at [facility] Left: Chest [employer] [id number] 04/24/2025 [id number] / [id number] / [employer] Edora Promri 47a86g7.5mm Dual Chamber Rate Adaptive Unipolar Bipolar [id number] - [id number] - [id number] Implanted:Qty: 1 on 05/24/2023 by Hayder Penn MD at [facility] Left: Chest [employer] 09/22/2024 [id number] / [id number] / Procedures Procedure Name Priority Date/Time Associated Diagnosis Comments EGFR Routine 05/25/2023 5:27 AM RECONCILEMENT CLERK from Last 3 Months or Most Recently Relevant to Health Maintenance Results * eGFR (05/25/2023 5:27 AM RECONCILEMENT CLERK) eGFR 21 mL/min/1. 73 m2 ARYAN HERNÁNDEZ Comment: Interpretive Data Reference Interval Normal >/= 90 mL/min/1.73m2 Mildly decreased* 60 - 89 mL/min/1.73m2 Mildly to moderately decreased 45 - 59 mL/min/1.73m2 Moderately to severely decreased 30 - 44 mL/min/1.73m2 Severely decreased 15 - 29 mL/min/1.73m2 Kidney Failure < 15 mL/min/1.73m2 *Relative to young adult level Estimated glomerular filtration rate is determined by the 2020 CKD-EPI equation recommended by the National Kidney Foundation (A Unifying Approach to GFR Estimation: Recommendations of the NKF-ASK Task Force on Reassessing the Inclusion of Race in Diagnosing Kidney Disease, JASN 2020). The CKD-EPI equation should not be used for patients with unstable renal function and has not been validated in children and those over 70. Current interpretive data was last reviewed 2021. Blood 05/25/2023 5:27 AM RECONCILEMENT CLERK 05/25/2023 5:51 AM RECONCILEMENT CLERK Cristina DISLA LAB BLOOD ORDERABLES F inal Result ARYAN [address] Department [place] [address] from Last 3 Months or Most Recently Relevant to Health Maintenance Insurance MEDICARE BLUE TRADITIONAL OOS MEDICARE BLUE TRADITIONAL OOS Advance Directives For more information, please contact: [phone] * Full Code (Latest Code Status on File) Date Activated Date Inactivated Comments 05/23/2023 11:47 AM 05/25/2023 5:36 PM Care Teams Wash Tub Machine Operator Relationship Specialty [place] [id number] [place] [address] PCP - General Orthopedic Surgery 03/08/23 [place] [address] [place] [address] Consulting Physician Cardiology 05/25/23
--- OUTSIDE RECORDS SUMMARY | 2024-09-30 17:24 | XMS_ITS | Clinical Summary ---
Author Organization [facility] Address [address] [place] [id number] Care Team Providers Care Clock And Watch Hands Mounter Name Role Phone Eric Duong MD Primary Care Provider Hayder Penn MD Unavailable [phone] Allergies Active Allergy Reactions Criticality Noted Date Comments Atorvastatin Rosuvastatin Jyejgya-Ncr-Gpv Reductase Inhibitors Muscle pain Medium 11/21/2018 Other: [...] wit h diabetic chronic kidney disease 09/05/2017 Surgical History Surgery Date Site/Laterality Comments CATARACT EXTRACTION, BILATERAL KNEE ARTHROSCOPY KNEE SURGERY SHOULDER SURGERY Right COLON SURGERY polyps - colectomy HIP FRACTURE SURGERY Right fracture repair CARDIAC CATHETERIZATION Medical History Medical History Date Comments Hypertension Hypertension Hx Other Medical Diabetes Type I I Hx Other Medical dyslipidemia Motion sickness Aortic stenosis Coronary artery disease SOBOE (shortness of breath on exertion) GERD (gastroesophageal reflux disease) Chronic kidney disease BPH (benign prostatic hyperplasia) Type 2 diabetes mellitus (HCC) Arthritis History of transfusion Back pain Family History Medical History Relation Name Comments Cardiomyopathy Father Cardiomyopath y; Heart disease Father Cancer Mother Relation Name Status Comments Father Mother Social History Tobacco Use Types Packs/Day Years Used Date Smoking Tobacco: Never Smokeless Tobacco: Never Tobacco Cessation:Counseling Given: Not Answered Alcohol Use Standard Drinks/Week Comments No 0 (1 standard drink = 0.6 oz pur e alcohol) [facility] Utilities Answer Date Recorded In the past 12 months has [employer], gas, oil, or water [employer] threatened to shut off services in your [...] 05/23/2023 How often do you attend chur or scientologist services? More than 4 times per year 05/23/2023 Do you belong to any clubs o r organizations such as scientologist groups, unions, fraternal or athletic groups, or [...] place to sleep or slept in a halfway (including now)? No 05/23/2023 Personal Safety Answer Date Recorded Have you ever been in or are you currently in a harmful physical or emotional relationship or is someone making you feel afraid or unsafe? Denies 05/24/2023 Sex and Gender Information Value Date Recorded Sex Assigned at Not on file Legal Sex Male 3:02 AM MEDIA SALES CONSULTANT Gender Identity Not on file Sexual Orientation Not on file Obstetrics History Last Filed Vital Signs Vital Sign Reading Time Taken Comments Blood Pressure 172/75 05/25/2023 12:04 PM MEDIA SALES CONSULTANT Pulse 100 05/25/2023 12:04 PM MEDIA SALES CONSULTANT Temperature 36.9 C (98.4 F) 05/25/2023 7:38 AM MEDIA SALES CONSULTANT Respiratory Rate 18 05/25/2023 12:04 PM MEDIA SALES CONSULTANT Oxygen Saturation 98% 05/25/2023 12:04 PM MEDIA SALES CONSULTANT Inhaled Oxygen Concentration - - Weight 89.9 kg (198 lb 4.8 oz) 05/25/2023 6:00 A M MEDIA SALES CONSULTANT Height 172.7 cm (5' 8) 05/24/2023 5:20 PM MEDIA SALES CONSULTANT Body Mass Index 30.15 05/24/2023 5:20 PM MEDIA SALES CONSULTANT Plan of Treatment Health Maintenance Due Date Last Done Comments Albumin Creatinine Ratio, Urine 1937 Hemoglobin A1C 1937 Dilated Eye Exam 1937 Foot Exam 1937 Lipid Panel 1937 Hepatitis B Screening 12/02/1955 Zoster Vaccine (1 of 2) 12/02/1987 Well Visit 65+ 2002 DTaP/Tdap/Td Vaccine (2 - Td or Tdap) 11/18/2017 11/19/2007 Covid-19 Vaccine (3 - 2023-2 5 season) 2023 08/26/2020, 07/29/2020 Depression Screening 04/26/2024 04/26/2023, 04/26/19 24 Fall Risk Assessment 05/25/2024 05/25/2023 eGFR 05/25/2024 05/25/2023, 04/27, 05/24/2023, Additional history exists Influenza Vaccine (Season Ended) 2024 04/22/20, 04/22/2020 Pneumococcal vaccine 65+ Completed 12/24/2008, 04/26 Medical Devices Implanted Type Area Snout Puller Device Identifier Shelf Expiration Date Model / Serial / Lot [employer] V[employer] Device Clsr Perclose Prostyle Sut-Mediatd Closure-Repair Sys 23254-07 - [id number] Implanted:Qty: 1 on 05/23/2023 by Hu Chapman MD at [facility] [employer] 02/22/2025 [id number] / / [id number] [employer] Device Clsr Perclose Prostyle Sut-Mediatd Closure-Repair Sys 07606-53 - [id number] Implanted:Qty: 1 on 05/23/2023 by Hu Chapman MD at [facility] [employer] 02/22/2025 [id number] / / [id number] [employer] Devendra 3 Commander [place] 26mm Transcatheter Ultra Low Profile [id number] - [id number] - [id number] Implanted:Qty: 1 on 05/23/2023 by Hu Chapman MD at [facility] [employer] 01/25/2026 [id number] / [id number] / [employer] Promri Solia S 60cm Lead Pacing Steroid Eluting [id number] - [id number] - [id number] Implanted:Qty: 1 on 05/24/2023 by Hayder Penn MD at [facility] Left: Chest [employer] 02/22/2025 [id number] / [id number] / [employer] Solia S 53cm Steroid Elute Bipolar Active Fixation Endocardial [id number] - [id number] - [id number] Implanted:Qty: 1 on 05/24/2023 by Hayder Penn MD at [facility] Left: Chest [employer] [id number] 04/24/2025 [id number] / [id number] / [employer] Edora Promri 01l05a7.5mm Dual Chamber Rate Adaptive Unipolar Bipolar [id number] - [id number] - [id number] Implanted:Qty: 1 on 05/24/2023 by Hayder Penn MD at [facility] Left: Chest [employer] 09/22/2024 [id number] / [id number] / Procedures Procedure Name Priority Date/Time Associated Diagnosis Comments EGFR Routine 05/25/2023 5:27 AM MEDIA SALES CONSULTANT from Last 3 Months or Most Recently Relevant to Health Maintenance Results * eGFR (05/25/2023 5:27 AM MEDIA SALES CONSULTANT) eGFR 21 mL/min/1. 73 m2 ARYAN HERNÁNDEZ [...] last reviewed 2021. Blood 05/25/2023 5:27 AM MEDIA SALES CONSULTANT 05/25/2023 5:51 AM MEDIA SALES CONSULTANT Cristina DISLA LAB BLOOD ORDERABLES F inal Result [facility] [address] Department [place] [address] from Last 3 Months or Most Recently Relevant to Health Maintenance Insurance MEDICARE [facility] MEDICARE [facility] Advance Directives For more information, please contact: [phone] * Full Code (Latest Code Status on File) Date Activated Date Inactivated Comments 05/23/2023 11:47 AM 05/25/2023 5:36 PM Care Teams Clock And Watch Hands Mounter Relationship Specialty [place] [address] [place] [address] PCP - General Orthopedic Surgery 03/08/23 [place] [address] [facility] [address] [place] [id number] Consulting Physician Cardiology 05/25/23
--- OUTSIDE RECORDS SUMMARY | 2024-09-30 17:24 | XMS_ITS | Clinical Summary ---
Author Organization [facility] [address] [facility] Address [address] [place] [address] Care Team Providers Care Check Scaler Name Role Phone Mario Alberto Fleming DO Primary Care Provider Allergies Active Allergy Reactions Criticality Noted Date Comments Suxgyib-Bzy-Mws Reductase Inhibitors Other (See Comments) Medium 11/21/2018 Other: myalgias Medications vitamin E 400 unit capsule Take 400 Units by mouth daily. 09/29/2017 Active amLODIPine (NORVASC) 10 mg tablet Take 10 mg by mouth daily. 09/29/2017 Active cholecalciferol , vitamin D3, 2,000 unit Tablet, Chewable Take 2,000 Units by mouth daily. Active finasteride (PROSCAR) 5 mg tablet Take 5 mg by mouth daily. 09/03/2017 Active gemfibrozil (LOPID) 600 mg tablet Take 1 Tablet by mouth 2 times daily. 09/03/2017 Active metFORMIN (GLUCOPHAGE) 500 mg tablet Take 1 Tablet by mouth daily Takes 1 tablet in am and 2 tablets in pm. 09/03/2017 Active morphine (MS IR) 15 mg tablet Take 1 Tablet by mouth 3 times daily. 11/07/2018 Active omeprazole (PriLOSEC) 40 mg Capsule, Delayed Release(E.C.) Take 40 mg by mouth daily. 09/03/2017 Active tamsulosin (FLOMAX) 0.4 mg capsule Take 0.4 mg by mouth daily. 09/03/2017 Active triamcinolone acetonide (KENALOG) 0.1 % Cream 10/27/2018 Active ondansetron (ZOFRAN) 4 mg Tablet Take 4 mg by mouth every 8 hours as needed for Nausea/Emesi s. Active sennosides (SENNA ORAL) Take by mouth 1 time daily as needed. Active glucosamine HCl/chondroitin davis (GLUCOSAMINE-CH ONDROITIN ORAL) Take 3 Tablets by mouth daily. Active SAW PALMETTO ORAL Take 450 mg by mouth 2 times daily. Active multivitamin (DAILY-AGUSTÍN) tablet Take 1 Tablet by mouth daily. 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 on 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 Not on file Not on file Last Filed Vital Signs Vital Sign Reading Time Taken Comments Blood Pressure 110/50 11/20/2018 11:32 AM CDT Pulse - - Temperature - - Respiratory Rate - - Oxygen Saturation - - Inhaled Oxygen Concentration - - Weight 72.6 kg (160 lb) 11/20/2018 11:32 AM CDT Height 172.7 cm (5' 8) 11/20/2018 11:32 AM CDT Body Mass Index 24.33 11/20/2018 11:32 AM CDT Plan of Treatment Health Maintenance Due Date Last Done Comments DIABETES ANNUAL FOOT EXAM [birth year]02/1953 DIABETES ANNUAL RETINAL EXAM 12/02/1953 DIABETES HBA1C Q 6 MONTHS 12/02/1955 DIABETES MICROALBUMIN ANNUAL SCREEN 12/02/1955 LDL CHOLESTEROL ANNUAL 12/02/1955 DTAP/TDAP/TD VACCINES (1 - Tdap) 1956 PNEUMOCOCCAL VACCINE 50+ YEARS (1 of 2 - PCV) 12/01/18 57 ZOSTER VACCINE (1 of 2) 12/02/1987 RSV VACCINE (60+ or ) (1 - 1-dose 75+ series) 2012 INFLUENZA VACCINE (#1) 2023 Insurance MEDICARE PART A AND B [employer] BLUE ACCESS/TRUE BLUE PPO Care Teams Check Scaler Relationship Specialty Start Date End Date Mario Alberto Fleming DO [address] [facility] [address] [facility] [address] [place] [id number] PCP - General Internal Medicine 11/07/18
--- OUTSIDE RECORDS SUMMARY | 2024-09-30 17:24 | XMS_ITS | Clinical Summary ---
Author Organization [facility] Address [address] [address] Phone Care Team Providers Care Copper Tapper Name Role Phone Mario Alberto Fleming DO Primary Care Provider [phone] Allergies Active Allergy Reactions Criticality Noted Date Comments Statins Other (see comments) Medium Other: myalgias Medications alpha tocopherol (VITAMIN E) 400 units capsule 1 daiy 0 09/29/2017 Activ e amLODIPine (NORVASC) 10 MG tablet 1 daily 0 09/29/2017 Active labetalol (NORMODYNE) 100 MG tablet 1 bid 12 05/17/2018 Active Ascorbic Acid (VITAMIN C DROPS) 60 MG lozenge 1 daily 0 09/29/2017 Active vardenafil (LEVITRA) 20 MG tablet 1 as needed 0 09/03/2017 Active Multiple Vitamin (MULTIVITAMIN) capsule 0 09/29/2017 Active gemfibrozil (LOPID) 600 MG tablet 1 bid 0 09/03/2017 Active finasteride (PROSCAR) 5 MG tablet 1 daily 0 09/03/2017 Active tamsulosin (FLOMAX) 0.4 MG 24 hr capsule 1 nightly 0 09/03/2017 Activ e Cholecalciferol (VITAMIN D3) 2000 units chewable tablet Chew. Acti ve morphine (MSIR) 15 MG tablet Take 1 tablet by mouth 3 times daily 11/07/2018 Active pioglitazone (ACTOS) 15 MG tablet Take 15 mg by mouth 1 (one) time each day Active ondansetron (ZOFRAN) 4 MG tablet 09/26/2019 Active famotidine (PEPCID) 20 MG tablet Take 20 mg by mouth 2 (two) times a day 11/14/2020 Active ezetimibe (ZETIA) 10 MG tablet Take 10 mg by mouth 1 (one) time each day 11/24/2020 Active hydroCHLOROthia zide (HYDRODIURIL) 25 MG tablet TAKE 1 TABLET BY MOUTH EVERY DAY 90 tablet 3 04/21/2022 Active Active Problems Problem Noted Date Diagnosed Date Spondylosis 11/20/2018 Type 2 diabetes mellitus wit h diabetic chronic kidney disease 09/05/2017 Chronic kidney disease, Stage IV (severe) 2017 Essential (primary) hypertension 09/05/2017 Hyperlipidemia 09/05/2017 Benign prostatic hyperplasia without lower urinary tract symptom 09/05/2017 Immunizations Immunization Administration Dates Next Due Fluzone High-Dose 04/22/2020 Influenza TIV (IM) 04/15/2022(Deferred: Patient Refused),04/22/2020,04/21/2020(Deferred: Patient Refused) Pneumococcal Conjugate 12/24/2008 Pneumococcal Polysaccharide 05/21/2007 Tdap 11/19/2007 Family History Medical History Relation Comments Kidney disease Father Relation Status Comments Father Social History Tobacco Use Types Packs/Day Years Used Date Smoking Tobacco: Never Smokeless Tobacco: Never Alcohol Use Standard Drinks/Week Comments No 0 (1 standard drink = 0.6 oz pur e alcohol) AUDIT-C Answer Date Recorded Frequency of Alcohol Consumption Never 09/15/2018 Average Number of Drinks Not on file 019 Frequency of Binge Drinking Not on file 08/24 Sex and Gender Information Value Date Recorded Sex Assigned at Not on file Legal Sex Male 9:25 AM [facility] Gender Identity Not on file Sexual Orientation Not on file Last Filed Vital Signs Vital Sign Reading Time Taken Comments Blood Pressure 122/60 09/30/2021 3:57 PM CDT Pulse 72 09/30/2021 3:57 PM CDT Temperature 36.7 C (98 F) 09/30/2021 3:57 PM CDT Respiratory Rate - - Oxygen Saturation - - Inhaled Oxygen Concentration - - Weight 89.4 kg (197 lb) 09/30/2021 3:57 PM CDT Height 172.7 cm (5' 8) 09/30/2021 3:57 PM CDT Body Mass Index 29.95 09/30/2021 3:57 PM CDT Plan of Treatment Health Maintenance Due Date Last Done Comments Pneumococcal PPSV23/PCV13 65 + Years / Low and Medium Risk (2 of 3 - PCV) 05/21/2008 05/21/2007 Influenza Vaccine (Season Ended) 2024 04/22/20 20 Insurance MEDICARE [facility]) Care Teams Copper Tapper Relationship Specialty Start Date End Date Mario Alberto Fleming DO [address] [place] [id number] PCP - General Internal Medicine 10/11/18
[2024-09-30 17:57] LABS: NT Pro B Type Natriuretic Pept 1370 pg/mL (19.9-100)
--- NOTE | 2024-09-30 18:07 | ED_ITS ---
HPI - General Adult General Chief complaint: Chest Pain Stated complaint: cp Time Seen by Provider: 09/30/24 16:49 History of Present Illness HPI narrative: Patient is an 88-year-old male who presents ER with chest pain. Ongoing over last 2 3 days. Central. No radiation. He is unsure what affects his discomfort. Mild dyspnea. Has history of pacemaker and valve replacement. Sees cardiology with [facility]. 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 No new leg edema. Has some mild lower abdominal pain and he is unsure when began. Related Data Home Medications ?Medication ?Instructions ?Recorded ?Confirmed ?Last Taken ?Type clopidogrel 75 mg tablet 75 mg PO DAILY 07/25/23 08/13/24 Unknown History clopidogrel 75 mg tablet (Plavix) 75 mg PO DAILY 09/30/24 09/30/24 09/29/24 History docusate sodium 100 mg capsule 100 mg PO DAILY 09/30/24 09/30/24 09/29/24 History (Colace) ezetimibe 10 mg tablet (Zetia) 10 mg PO DAILY 09/30/24 09/30/24 09/29/24 History famotidine 20 mg tablet (Acid 20 mg PO BID 09/30/24 09/30/24 09/29/24 History Controller) finasteride 5 mg tablet 5 mg PO DAILY 09/30/24 09/30/24 09/29/24 History fluticasone propionate 50 2 spray intranasal DAILY PRN 09/30/24 09/30/24 09/29/24 History mcg/actuation nasal allergy symptoms spray,suspension (Flonase Allergy Relief) furosemide 80 mg tablet 80 mg PO DAILY 09/30/24 09/30/24 09/29/24 History metolazone 5 mg tablet 5 mg PO DAILY 09/30/24 09/30/24 09/29/24 History morphine 15 mg immediate release 15 mg PO Q8H PRN pain 09/30/24 09/30/24 09/29/24 History tablet pioglitazone 15 mg tablet (Actos) 15 mg PO DAILY 09/30/24 09/30/24 09/29/24 History verapamil 120 mg tablet 120 mg PO DAILY 09/30/24 09/30/24 09/29/24 History Allergies Allergy/AdvReac Type Severity Reaction Status Date / Time atorvastatin Allergy Unknown myalgia Verified 10/01/24 08:17 rosuvastatin Allergy Unknown myalgia Verified 10/01/24 08:17 Review of Systems 2 Review of Systems: All systems reviewed & are unremarkable except as noted in HPI and below Constitutional: Constitutional: Reports no additional constitutional complaints ENT: Reports system reviewed and no additional complaints, except as documented Cardiovascular: Cardiovascular: Reports no additional cardiovascular complaints Respiratory: Respiratory: Reports no additional respiratory complaints Gastrointestinal: Gastrointestinal: Reports no additional gastrointestinal complaints Genitourinary: Genitourinary: Reports no additional male genitourinary complaints [facility] Past Medical History Medical History (Updated 10/01/24 @ 12:02 by Dang Lopez MD) Elevated LFTs Chronic pain 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 URI (upper respiratory infection) Preoperative clearance History of colon polyps Dupuytren's contracture of right hand Pre-operative clearance Trigger finger, right middle finger Aortic stenosis Iron deficiency anemia Low back pain radiating to left leg Type II diabetes mellitus with renal manifestations Essential hypertension, benign Mixed hyperlipidemia Bilateral inguinal hernia Small fat containing bilateral inguinal hernias noted on CT 09/30/2024 Hepatic steatosis Chronic pain GERD (gastroesophageal reflux disease) Dyslipidemia BPH (benign prostatic hyperplasia) Type 2 diabetes mellitus Hypertension Hyperlipidemia Chronic kidney disease Heart failure 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 moderate mitral valve regurgitation Surgical History Surgical History (Updated 10/01/24 @ 08:17 by Trey Mas) History of repair of right rotator cuff (~07/05/14) Subacromial Decompression; Limited Debridement Status post cataract extraction of both eyes with insertion of intraocular lens 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 He has 3 children. He is a retired [employer]. He he is a lifelong nonsmoker and does not drink alcohol or use illicit substances. He ambulates with a walker. Code status: Full code (he states he would not want long-term intubation or feeding tube) Surrogate decision maker: Nallely () Smoking status: Never smoker Second hand tobacco smoke exposure: No Alcohol intake: never Substance use: never Do You Feel Safe in your Home?: Yes Lack of Transportation: YES Lack of Food: Never True Current Housing: I Have Housing Concerned About Future Housing: No Difficulty Paying Gas/Electric Bills: No Difficulty Paying for Meds: No Currently Unemployed: No Education: High School Diploma/GED Difficulty w/ Childcare or Family Care: No Living arrangements: with family Gender identity (if verbalized by the patient): Male Spiritual care concerns: No Exam 2 Narrative: GENERAL: Well-appearing, well-nourished, and in no acute distress. HEAD: Normocephalic, atraumatic. ENT: Mucous membranes moist. NECK: Supple. CHEST: Clear to auscultation. No respiratory distress. HEART: Regular rate and rhythm. Normal peripheral pulses. ABDOMEN: Soft, mild tenderness left lower quadrant, nondistended, normal active bowel sounds. EXTREMITIES: Normal range of motion. 1+ edema. SKIN: Warm, dry, no rash. NEURO: Alert and oriented x3. PSYCH: Normal mood and affect. Course Course Emergency Course: Patient reports normal urine output over last few days. Has never been told that he may need dialysis. Patient is able to void 200 mL and only had 13 mL left on bladder scan. 1820: Nephrology recommends holding diuretics and rechecking labs in the morning. Will give some hydration. 1901: Accepted by hospitalist service for admission. Vital Signs Vital signs: Vital Signs Temperature 98.4 F 09/30/24 15:47 Pulse Rate 97 09/30/24 15:47 Respiratory Rate 18 09/30/24 15:47 Blood Pressure 175/85 H 09/30/24 15:47 Pulse Oximetry 98 09/30/24 15:47 Oxygen Delivery Room Air 09/30/24 15:47 Temperature 98.1 F 10/03/24 06:12 Pulse Rate 76 10/03/24 06:12 Respiratory Rate 18 10/03/24 06:12 Blood Pressure 148/59 H 10/03/24 06:12 Pulse Oximetry 90 10/03/24 06:12 Oxygen Delivery Room Air 10/02/24 20:00 Medical Decision Making Vital Signs Vital Signs: Vital Signs Temperature 98.4 F 09/30/24 15:47 Pulse Rate 97 09/30/24 15:47 Respiratory Rate 18 09/30/24 15:47 Blood Pressure 175/85 H 09/30/24 15:47 Pulse Oximetry 98 09/30/24 15:47 Oxygen Delivery Room Air 09/30/24 15:47 Temperature 98.1 F 10/03/24 06:12 Pulse Rate 76 10/03/24 06:12 Respiratory Rate 18 10/03/24 06:12 Blood Pressure 148/59 H 10/03/24 06:12 Pulse Oximetry 90 10/03/24 06:12 Oxygen Delivery Room Air 10/02/24 20:00 Lab Data 10/03/24 04:59 10/03/24 04:59 Labs: Lab Results 09/30/24 09/30/24 09/30/24 Range/Units 16:03 19:35 21:10 WBC 18.1 H (4.5-10.0) K/mm3 RBC 4.09 L (4.2-5.4) M/mm3 Hgb 12.0 (12.0-15.0) g/dL Hct 38.3 (37.0-47.0) % MCV 93.6 (80-100) fl MCH 29.3 (26-34) pg MCHC 31.3 L (32-36) g/dl RDW 13.5 (11.5-14.5) % Plt Count 197 (150-375) k/mm3 MPV 9.5 (7.4-10.4) fl Immature Gran % (Auto) Not Reportable Neut % (Auto) Not Reportable Lymph % (Auto) Not Reportable [place] % (Auto) Not Reportable Eos % (Auto) Not Reportable Baso % (Auto) Not Reportable Lymph # (Auto) Not Reportable [place] # (Auto) Not Reportable Eos # (Auto) Not Reportable Baso # (Auto) Not Reportable Abs Immat Gran (auto) Not Reportable Absolute Neuts (auto) Not Reportable Absolute Nucleated RBC Not Reportable Total Counted 100 Neutrophils % (Manual) 89 H (46-73) % Band Neutrophils % 5 (0-6) % Lymphocytes % (Manual) 1.0 L (18-44) % Monocytes % (Manual) 5 (3-9) % Nucleated RBC % Not Reportable Abs Neuts (Manual) 17.01 H (1.3-6.7) K/mm3 Abs Lymphs (Manual) 0.18 L (1.1-4.5) K/mm3 Abs Monocytes (Manual) 0.90 (0.1-0.90) K/mm3 Platelet Estimate Adequate (Adequate) Clumped Platelets Present Hypochromasia 1+ Anisocytosis 1+ Schistocytes None seen PT 14.2 (11.1-14.7) Seconds INR 1.1 APTT 32.4 (22.3-36.8) Seconds Sodium 133 L (137-145) mmol/L Potassium 3.6 (3.4-5.0) mmol/L Chloride 89 L (98-107) mmol/L Carbon Dioxide 33 H (22-30) mmol/L Anion Gap 11 (4-12) mmol/L BUN 120 H (7-17) mg/dL Creatinine 3.86 H (0.7-1.0) mg/dL Estim Creat Clear Calc 11 ml/min Estimated GFR 11 L (59 - ) Glucose 218 H (65-110) mg/dL POC Capillary Glucose (65-105) mg/dl Calcium 9.7 (8.4-10.2) mg/dL Phosphorus (2.5-4.5) mg/dL Magnesium (1.6-2.3) mg/dL Total Bilirubin 0.8 (0.2-1.3) mg/dL AST 33 (14-36) U/L ALT 23 (6-35) U/L Alkaline Phosphatase 82 (38-126) U/L Total Creatine Kinase (55-170) U/L Troponin I 0.053 H* 0.080 H* D (0.000-0.034) ng/mL NT-Pro-B Natriuret Pep 1370 H (19.9-100) pg/mL Total Protein 7.9 (6.3-8.2) g/dL Albumin 4.4 (3.5-5.1) g/dL Lipase 16 L (23-300) U/L Urine Color Yellow (Yellow) Urine Appearance Clear (Clear) Urine pH 5.5 (5.0-9.0) Ur Specific [place] 1.015 (1.001-1.035) Urine Protein Trace (Negative) mg/dL Urine Glucose (UA) Negative (Negative) mg/dL Urine Ketones Negative (Negative) mg/dL Ur Blood (Man) Negative (Negative) Urine Nitrate Negative (Negative) Urine Bilirubin Negative (Negative) Urine Urobilinogen 1.0 (<2.0) mg/dL Leukocyte Esterase Rfl Negative (Negative) TAMI/UL Urine RBC 0-2 (0-2) /hpf Urine WBC 0-5 (0-3) /hpf Ur Squamous Epith Cells None seen (Few) /hpf Urine Bacteria None seen /hpf Urine Casts 0-2 Urine Eosinophils (None Seen) % U Random Total Protein mg/dL Ur Random Sodium meq/L Ur Random Urea MG/DL Urine Total Volume Urine Creatinine mg/dL Protein/Creat Ratio 2 (0-0.20) mg/mg 09/30/24 09/30/24 10/01/24 Range/Units 22:17 23:55 03:52 WBC 16.2 H (4.5-10.0) K/mm3 RBC 3.60 L (4.2-5.4) M/mm3 Hgb 10.9 L (12.0-15.0) g/dL Hct 33.3 L (37.0-47.0) % MCV 92.5 (80-100) fl MCH 30.3 (26-34) pg MCHC 32.7 (32-36) g/dl RDW 13.5 (11.5-14.5) % Plt Count 169 (150-375) k/mm3 MPV 9.8 (7.4-10.4) fl Immature Gran % (Auto) 0.9 H Neut % (Auto) 89.1 H Lymph % (Auto) 2.5 L [place] % (Auto) 7.3 Eos % (Auto) 0.0 Baso % (Auto) 0.2 Lymph # (Auto) 0.41 L [place] # (Auto) 1.2 H Eos # (Auto) 0.0 Baso # (Auto) 0.0 Abs Immat Gran (auto) 0.14 H Absolute Neuts (auto) 14.5 H Absolute Nucleated RBC 0.000 Total Counted Neutrophils % (Manual) (46-73) % Band Neutrophils % (0-6) % Lymphocytes % (Manual) (18-44) % Monocytes % (Manual) (3-9) % Nucleated RBC % 0.0 Abs Neuts (Manual) (1.3-6.7) K/mm3 Abs Lymphs (Manual) (1.1-4.5) K/mm3 Abs Monocytes (Manual) (0.1-0.90) K/mm3 Platelet Estimate (Adequate) Clumped Platelets Hypochromasia Anisocytosis Schistocytes PT (11.1-14.7) Seconds INR APTT (22.3-36.8) Seconds Sodium 132 L (137-145) mmol/L Potassium 3.2 L (3.4-5.0) mmol/L Chloride 92 L (98-107) mmol/L Carbon Dioxide 30 (22-30) mmol/L Anion Gap 10 (4-12) mmol/L BUN 120 H (7-17) mg/dL Creatinine 3.34 H (0.7-1.0) mg/dL Estim Creat Clear Calc 16 ml/min Estimated GFR 18 L (59 - ) Glucose 172 H (65-110) mg/dL POC Capillary Glucose 195 H (65-105) mg/dl Calcium 9.1 (8.4-10.2) mg/dL Phosphorus 2.5 (2.5-4.5) mg/dL Magnesium 2.6 H (1.6-2.3) mg/dL Total Bilirubin (0.2-1.3) mg/dL AST (14-36) U/L ALT (6-35) U/L Alkaline Phosphatase (38-126) U/L Total Creatine Kinase 49 L (55-170) U/L Troponin I 0.090 H* (0.000-0.034) ng/mL NT-Pro-B Natriuret Pep (19.9-100) pg/mL Total Protein (6.3-8.2) g/dL Albumin (3.5-5.1) g/dL Lipase (23-300) U/L Urine Color (Yellow) Urine Appearance (Clear) Urine pH (5.0-9.0) Ur Specific [place] (1.001-1.035) Urine Protein (Negative) mg/dL Urine Glucose (UA) (Negative) mg/dL Urine Ketones (Negative) mg/dL Ur Blood (Man) (Negative) Urine Nitrate (Negative) Urine Bilirubin (Negative) Urine Urobilinogen (<2.0) mg/dL Leukocyte Esterase Rfl (Negative) TAMI/UL Urine RBC (0-2) /hpf Urine WBC (0-3) /hpf Ur Squamous Epith Cells (Few) /hpf Urine Bacteria /hpf Urine Casts Urine Eosinophils (None Seen) % U Random Total Protein mg/dL Ur Random Sodium meq/L Ur Random Urea MG/DL Urine Total Volume Urine Creatinine mg/dL Protein/Creat Ratio 2 (0-0.20) mg/mg 10/01/24 10/01/24 10/01/24 Range/Units 04:43 04:43 04:43 WBC (4.5-10.0) K/mm3 RBC (4.2-5.4) M/mm3 Hgb (12.0-15.0) g/dL Hct (37.0-47.0) % MCV (80-100) fl MCH (26-34) pg MCHC (32-36) g/dl RDW (11.5-14.5) % Plt Count (150-375) k/mm3 MPV (7.4-10.4) fl Immature Gran % (Auto) Neut % (Auto) Lymph % (Auto) [place] % (Auto) Eos % (Auto) Baso % (Auto) Lymph # (Auto) [place] # (Auto) Eos # (Auto) Baso # (Auto) Abs Immat Gran (auto) Absolute Neuts (auto) Absolute Nucleated RBC Total Counted Neutrophils % (Manual) (46-73) % Band Neutrophils % (0-6) % Lymphocytes % (Manual) (18-44) % Monocytes % (Manual) (3-9) % Nucleated RBC % Abs Neuts (Manual) (1.3-6.7) K/mm3 Abs Lymphs (Manual) (1.1-4.5) K/mm3 Abs Monocytes (Manual) (0.1-0.90) K/mm3 Platelet Estimate (Adequate) Clumped Platelets Hypochromasia Anisocytosis Schistocytes PT (11.1-14.7) Seconds INR APTT (22.3-36.8) Seconds Sodium (137-145) mmol/L Potassium (3.4-5.0) mmol/L Chloride (98-107) mmol/L Carbon Dioxide (22-30) mmol/L Anion Gap (4-12) mmol/L BUN (7-17) mg/dL Creatinine (0.7-1.0) mg/dL Estim Creat Clear Calc ml/min Estimated GFR (59 - ) Glucose (65-110) mg/dL POC Capillary Glucose (65-105) mg/dl Calcium (8.4-10.2) mg/dL Phosphorus (2.5-4.5) mg/dL Magnesium (1.6-2.3) mg/dL Total Bilirubin (0.2-1.3) mg/dL AST (14-36) U/L ALT (6-35) U/L Alkaline Phosphatase (38-126) U/L Total Creatine Kinase (55-170) U/L Troponin I (0.000-0.034) ng/mL NT-Pro-B Natriuret Pep (19.9-100) pg/mL Total Protein (6.3-8.2) g/dL Albumin (3.5-5.1) g/dL Lipase (23-300) U/L Urine Color (Yellow) Urine Appearance (Clear) Urine pH (5.0-9.0) Ur Specific [place] (1.001-1.035) Urine Protein (Negative) mg/dL Urine Glucose (UA) (Negative) mg/dL Urine Ketones (Negative) mg/dL Ur Blood (Man) (Negative) Urine Nitrate (Negative) Urine Bilirubin (Negative) Urine Urobilinogen (<2.0) mg/dL Leukocyte Esterase Rfl (Negative) TAMI/UL Urine RBC (0-2) /hpf Urine WBC (0-3) /hpf Ur Squamous Epith Cells (Few) /hpf Urine Bacteria /hpf Urine Casts Urine Eosinophils None seen (None Seen) % U Random Total Protein 27 Cancelled mg/dL Ur Random Sodium 29 meq/L Ur Random Urea 833 MG/DL Urine Total Volume Cancelled Urine Creatinine 74.8 Cancelled mg/dL Protein/Creat Ratio 2 0.36 H (0-0.20) mg/mg 10/01/24 Range/Units 10:53 WBC (4.5-10.0) K/mm3 RBC (4.2-5.4) M/mm3 Hgb (12.0-15.0) g/dL Hct (37.0-47.0) % MCV (80-100) fl MCH (26-34) pg MCHC (32-36) g/dl RDW (11.5-14.5) % Plt Count (150-375) k/mm3 MPV (7.4-10.4) fl Immature Gran % (Auto) Neut % (Auto) Lymph % (Auto) [place] % (Auto) Eos % (Auto) Baso % (Auto) Lymph # (Auto) [place] # (Auto) Eos # (Auto) Baso # (Auto) Abs Immat Gran (auto) Absolute Neuts (auto) Absolute Nucleated RBC Total Counted Neutrophils % (Manual) (46-73) % Band Neutrophils % (0-6) % Lymphocytes % (Manual) (18-44) % Monocytes % (Manual) (3-9) % Nucleated RBC % Abs Neuts (Manual) (1.3-6.7) K/mm3 Abs Lymphs (Manual) (1.1-4.5) K/mm3 Abs Monocytes (Manual) (0.1-0.90) K/mm3 Platelet Estimate (Adequate) Clumped Platelets Hypochromasia Anisocytosis Schistocytes PT (11.1-14.7) Seconds INR APTT (22.3-36.8) Seconds Sodium (137-145) mmol/L Potassium (3.4-5.0) mmol/L Chloride (98-107) mmol/L Carbon Dioxide (22-30) mmol/L Anion Gap (4-12) mmol/L BUN (7-17) mg/dL Creatinine (0.7-1.0) mg/dL Estim Creat Clear Calc ml/min Estimated GFR (59 - ) Glucose (65-110) mg/dL POC Capillary Glucose 175 H (65-105) mg/dl Calcium (8.4-10.2) mg/dL Phosphorus (2.5-4.5) mg/dL Magnesium (1.6-2.3) mg/dL Total Bilirubin (0.2-1.3) mg/dL AST (14-36) U/L ALT (6-35) U/L Alkaline Phosphatase (38-126) U/L Total Creatine Kinase (55-170) U/L Troponin I (0.000-0.034) ng/mL NT-Pro-B Natriuret Pep (19.9-100) pg/mL Total Protein (6.3-8.2) g/dL Albumin (3.5-5.1) g/dL Lipase (23-300) U/L Urine Color (Yellow) Urine Appearance (Clear) Urine pH (5.0-9.0) Ur Specific [place] (1.001-1.035) Urine Protein (Negative) mg/dL Urine Glucose (UA) (Negative) mg/dL Urine Ketones (Negative) mg/dL Ur Blood (Man) (Negative) Urine Nitrate (Negative) Urine Bilirubin (Negative) Urine Urobilinogen (<2.0) mg/dL Leukocyte Esterase Rfl (Negative) TAMI/UL Urine RBC (0-2) /hpf Urine WBC (0-3) /hpf Ur Squamous Epith Cells (Few) /hpf Urine Bacteria /hpf Urine Casts Urine Eosinophils (None Seen) % U Random Total Protein mg/dL Ur Random Sodium meq/L Ur Random Urea MG/DL Urine Total Volume Urine Creatinine mg/dL Protein/Creat Ratio 2 (0-0.20) mg/mg Imaging Data Radiologist's impression: ITS Impressions Chest X-Ray 09/30/24 16:52 IMPRESSION: No acute cardiopulmonary process. ECG Data EKG #1: ECG completion date: 09/30/24 ECG completion time: 15:49 EKG Interpretation: normal rate (97), sinus rhythm, non-specific ST changes and RBBB Discharge Plan Discharge Clinical Impression: Acute kidney injury superimposed on CKD, Acute uremia Chest pain Qualifiers: Chest pain type: unspecified Qualified Code(s): R07.9 - Chest pain, unspecified Patient Disposition: Still a Patient Condition: Stable Quality HEART score for chest pain patients History: slightly suspicious ECG: non specific repolarization disturbance/LBTB/PM Age: > or = to 65 years Risk factors: > or = to 3 risk factors of atherosclerotic disease Troponin: > 1 and < 3x normal limit Heart score: 6
[2024-09-30] MEDS: SODIUM CHLORIDE 0.9% IV 1,000 ML 125 ML IV CONT (19:32)
[2024-09-30 19:51] LABS: Add Urine Microscopic? YES; Appearance Urine Clear (Clear); Glucose Urine UA Negative (Negative); Leukocyte Esterase Ur Negative LEU/UL (Negative); Nitrate Urine Negative (Negative); Non Pathogenic Casts 0-2; Specific Grav Ur 1.015 (1.001-1.035)
--- NOTE | 2024-09-30 20:11 | P.HP_ITS ---
H&P: HPI History of Present Illness Date/Time: 09/30/24 20:11 Chief Complaint: Nausea, abdominal pain and Chest pain Narrative: 88-year-old male with a past medical history of heart valve replacement, CHF, chronic kidney disease, BPH, type 2 diabetes mellitus and chronic pain who presented to the ER via EMS from home due to nausea, abdominal pain and chest pain for 3 days. The patient reports that he has been having initial symptoms of abdominal pain of his generalized for the last 3 days. It was accompanied by nausea with some dry heaves but no significant vomiting. He is reports feeling chilled and being sweaty at times with the chills. She he has been also having some indigestion. He reports that his chest discomfort feels more like indigestion and is occurring several times a day. It is made worse when he is nauseous. In feels like it burning sensation in his chest. The pain does not radiate. The pain is at 3 out in 10 in intensity currently. He denies any eliciting or relieving symptoms. I did order a GI cocktail which patient was not able to tolerate due to the taste. He does not take medications for heartburn. He denies any sore throat or difficulty swallowing. He has not had any fevers that he knows of but has not checked his temperature. He is afebrile on arrival to the ER. He reports that he has been having normal bowel movements without hematochezia or melena. His last bowel movement was today. He actually denies a history of coronary artery disease or stents but has had valve replacement and CHF. The patient's creatinine as outpatient on 08/07/2024 was 3.26 with EGFR of 18. Labs in the ER today demonstrated BUN of 120 creatinine 3.86. He was hyperglycemic in the ER. And does not know what is recent A1c value was and I cannot find it in his other chart. He only checks his blood sugars once a week. The patient does report some dyspnea on exertion but this seems to be at his baseline. He denies any orthopnea or paroxysmal nocturnal dyspnea. He has chronic lower extremity swelling left greater than right that is unchanged from baseline. He reports that his worse pain I now has in his low back due to his chronic low back pain. He has not had is morphine for the day. He was noted to have hyperglycemia in the ER. He does have history of diabetes and is on Actos at home. He only checks his blood sugars once a week. Source of information is from patient who is not a very good historian despite being alert orient x4. Also review of the patient's medical record including information listed under Review of Systems 2 Review of Systems: 12 systems were reviewed with pertinent positives and negatives per HPI. Except as documented in the HPI, all other systems were reviewed and are negative. [facility] Past Medical History Medical History (Updated 10/01/24 @ 02:32 by Arleen Talamantes DO) Bilateral inguinal hernia Small fat containing bilateral inguinal hernias noted on CT 09/30/2024 Hepatic steatosis Chronic pain GERD (gastroesophageal reflux disease) Dyslipidemia BPH (benign prostatic hyperplasia) Type 2 diabetes mellitus Hypertension Hyperlipidemia Chronic kidney disease Heart failure 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 moderate mitral valve regurgitation Surgical History Surgical History (Updated 10/01/24 @ 02:38 by Arleen Talamantes DO) Status post cataract extraction of both eyes with insertion of intraocular lens 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) History of appendectomy History of right hemicolectomy (2008) Status post open reduction with internal fixation of fracture Right femur History of permanent cardiac pacemaker placement Biotronik dual chamber pacemaker MRI safe Family History Family History (Updated 10/01/24 @ 02:36 by Arleen Talamantes DO) Father Chronic kidney disease Cerebrovascular accident Heart disease Mother Carcinoma of colon Social History Social History (Updated 10/01/24 @ 02:38 by Arleen Talamantes DO) Social History: The patient lives with his of he he 19 years. He has 3 children. He is a retired [employer]. He he is a lifelong nonsmoker and does not drink alcohol or use illicit substances. He ambulates with a walker. Code status: Full code (he states he would not want long-term intubation or feeding tube) Surrogate decision maker: Nallely () Smoking status: Never smoker Second hand tobacco smoke exposure: No Alcohol intake: never Substance use: never Do You Feel Safe in your Home?: Yes Lack of Transportation: YES Lack of Food: Never True Current Housing: I Have Housing Concerned About Future Housing: No Difficulty Paying Gas/Electric Bills: No Difficulty Paying for Meds: No Currently Unemployed: No Education: High School Diploma/GED Difficulty w/ Childcare or Family Care: No Spiritual care concerns: No Meds Home Medications and Allergies Home Medications ?Medication ?Instructions ?Recorded ?Confirmed ?Type clopidogrel 75 mg tablet (Plavix) 75 mg PO DAILY 09/30/24 09/30/24 History docusate sodium 100 mg capsule 100 mg PO DAILY 09/30/24 09/30/24 History (Colace) ezetimibe 10 mg tablet (Zetia) 10 mg PO DAILY 09/30/24 09/30/24 History famotidine 20 mg tablet (Acid 20 mg PO BID 09/30/24 09/30/24 History Controller) finasteride 5 mg tablet 5 mg PO DAILY 09/30/24 09/30/24 History fluticasone propionate 50 2 spray intranasal DAILY PRN 09/30/24 09/30/24 History mcg/actuation nasal allergy symptoms spray,suspension (Flonase Allergy Relief) furosemide 80 mg tablet 80 mg PO DAILY 09/30/24 09/30/24 History metolazone 5 mg tablet 5 mg PO DAILY 09/30/24 09/30/24 History morphine 15 mg immediate release 15 mg PO Q8H PRN pain 09/30/24 09/30/24 History tablet pioglitazone 15 mg tablet (Actos) 15 mg PO DAILY 09/30/24 09/30/24 History verapamil 120 mg tablet 120 mg PO DAILY 09/30/24 09/30/24 History Allergies Allergy/AdvReac Type Severity Reaction Status Date / Time No Known Allergies Allergy Verified 09/30/24 16:36 Vital Signs Vital Signs - 24 hr 09/30/24 15:47 09/30/24 15:52 09/30/24 16:16 Temperature 98.4 F Pulse Rate 97 98 92 Respiratory Rate 18 12 17 Blood Pressure 175/85 H 175/85 H 132/67 Pulse Oximetry 98 97 100 Oxygen Delivery Room Air 09/30/24 16:46 09/30/24 17:01 09/30/24 17:16 Temperature Pulse Rate 89 92 88 Respiratory Rate 14 19 14 Blood Pressure 117/63 138/65 142/68 H Pulse Oximetry 97 94 Oxygen Delivery 09/30/24 17:31 09/30/24 17:46 Temperature Pulse Rate 85 83 Respiratory Rate 16 17 Blood Pressure 139/64 147/71 H Pulse Oximetry 97 96 Oxygen Delivery Exam 2 Narrative: Weight 89.4 kg BMI 29.6 Const: Other: No acute distress, well-developed, obese, appears stated age HENMT: Other: Mucous membranes are tacky, upper and lower dentures in place Eyes: Other: Bilateral lens replacements noted, no conjunctival pallor, no scleral icterus Neck: Other: Large neck circumference, no JVD, loss of cervical lordosis Resp: Other: Clear to auscultation bilaterally, no increased work of breathing Cardio: Other: Regular rate, regular rhythm, no murmur, 2+ bilateral radial and pedal pulses GI: Other: Mild discomfort to palpation in his lower quadrants, severe pain in the right upper quadrant positive Burroughs sign, normoactive bowel sounds, soft, obese Skin: Other: No petechiae, no jaundice, mildly diaphoretic Neuro: Other: Alert oriented to person place and time, speech is clear, mild hearing loss, no localizing neurologic deficit noted during the course of conversation Extrem: Other: 5/5 sweet pickle maker strength bilaterally, trace lisa ma right lower extremity 1+ edema left lower extremity Psych: Other: Flat affect, cooperative, appropriate insight and judgment H&P: Results Labs Labs: Laboratory Tests 09/30/24 16:03 09/30/24 16:03 09/30/24 09/30/24 16:03 19:35 WBC 18.1 H RBC 4.09 L Hgb 12.0 Hct 38.3 MCV 93.6 MCH 29.3 MCHC 31.3 L RDW 13.5 Plt Count 197 MPV 9.5 Immature Gran % (Auto) Not Reportable Neut % (Auto) Not Reportable Lymph % (Auto) Not Reportable [place] % (Auto) Not Reportable Eos % (Auto) Not Reportable Baso % (Auto) Not Reportable Lymph # (Auto) Not Reportable [place] # (Auto) Not Reportable Eos # (Auto) Not Reportable Baso # (Auto) Not Reportable Abs Immat Gran (auto) Not Reportable Absolute Neuts (auto) Not Reportable Absolute Nucleated RBC Not Reportable Total Counted 100 Neutrophils % (Manual) 89 H Band Neutrophils % 5 Lymphocytes % (Manual) 1.0 L Monocytes % (Manual) 5 Nucleated RBC % Not Reportable Abs Neuts (Manual) 17.01 H Abs Lymphs (Manual) 0.18 L Abs Monocytes (Manual) 0.90 Platelet Estimate Adequate Clumped Platelets Present Hypochromasia 1+ Anisocytosis 1+ Schistocytes None seen PT 14.2 INR 1.1 APTT 32.4 Sodium 133 L Potassium 3.6 Chloride 89 L Carbon Dioxide 33 H Anion Gap 11 BUN 120 H Creatinine 3.86 H Estim Creat Clear Calc 11 Estimated GFR 11 L Glucose 218 H Calcium 9.7 Total Bilirubin 0.8 AST 33 ALT 23 Alkaline Phosphatase 82 Troponin I 0.053 H* Pending NT-Pro-B Natriuret Pep 1370 H Total Protein 7.9 Albumin 4.4 Lipase 16 L Urine Color Yellow Urine Appearance Clear Urine pH 5.5 Ur Specific [place] 1.015 Urine Protein Trace Urine Glucose (UA) Negative Urine Ketones Negative Ur Blood (Man) Negative Urine Nitrate Negative Urine Bilirubin Negative Urine Urobilinogen 1.0 Leukocyte Esterase Rfl Negative Urine RBC 0-2 Urine WBC 0-5 Ur Squamous Epith Cells None seen Urine Bacteria None seen Urine Casts 0-2 Impressions Chest X-Ray 09/30/24 16:52 IMPRESSION: No acute cardiopulmonary process. Abdomen/Pelvis CT 09/30/24 19:00 IMPRESSION: Gallbladder hydrops without inflammatory change. Dilated common bile duct, measuring 14 mm. No obstructing stone or mass detected. Correlate with biliary labs. 3.4 cm fusiform infrarenal abdominal aortic aneurysm. Consider follow-up in 3 years. EKG: All imaging and EKGs personally reviewed and interpreted. And unless stated otherwise agree with radiologic and cardiology interpretation. Assessment and Plan Assessment and plan (1) Chest pain: Qualifiers: Chest pain type: unspecified Qualified Code(s): R07.9 - Chest pain, unspecified Code(s): R07.9 - Chest pain, unspecified Status: Acute Assessment and Plan: Chest pain seems atypical in nature. Troponin are elevated but flat. Pain seems more consistent with GI cause with reported indigestion and significant right upper quadrant pain. Will complete troponin series. Will continue Antihypertensives and Plavix. (2) Acute kidney injury superimposed on CKD: Code(s): N17.9 - Acute kidney failure, unspecified; N18.9 - Chronic kidney disease, unspecified Status: Acute Assessment and Plan: Patient has chronic kidney disease stage 4 with acute kidney injury. Most likely prerenal due to intervascular volume depletion. Will hold Lasix and continue IV fluid hydration. Nephrology was consulted from the ER. Nursing staff checked postvoid residual which was minimal. No evidence of obstructive uropathy. I will also continue Flomax for the patient's BPH. (3) Acute uremia: Code(s): N19 - Unspecified kidney failure Status: Acute Assessment and Plan: Possibly due to hypovolemia. GI bleed is less likely given patient's hemoglobin is stable at 12 and patient denies symptoms of hematemesis hematochezia or melena. Will hold Lasix and continue IV fluid hydration and repeat CBC and electrolyte panel in a.m.. (4) Gallbladder hydrops: Code(s): K82.1 - Hydrops of gallbladder Status: Acute Assessment and Plan: CT does not suggest overt acute cholecystitis but patient does have significant kit right upper quadrant pain on palpation and worsening of his nausea with palpation of right upper quadrant. Will obtain right upper quadrant ultrasound for better visualization of the gallbladder. Bilirubin and transaminases are normal. Patient does have some leukocytosis but no fever. Will hold off on adding antibiotic coverage at this time and will repeat CBC in a.m.. (5) Type 2 diabetes mellitus with hyperglycemia, without long-term current use of insulin: Code(s): E11.65 - Type 2 diabetes mellitus with hyperglycemia Status: Acute Assessment and Plan: Will resume patient's home Actos and will add moderate dose sliding scale insulin with Accu-Cheks a.c. HS and hypoglycemia protocol. (6) Chronic pain: Qualifiers: Chronic pain type: chronic pain syndrome Qualified Code(s): G89.4 - Chronic pain syndrome Code(s): G89.29 - Other chronic pain Status: Acute Assessment and Plan: Will resume patient's home morphine 15 mg Q 8 hours p.r.n. pain 7-10. (7) Abdominal aortic aneurysm (AAA) 3.0 cm to 5.5 cm in diameter in male: Code(s): I71.40 - Abdominal aortic aneurysm, without rupture, unspecified Status: Acute Assessment and Plan: Likely chronic will defer follow-up to patient's primary care provider Plan Patient has been admitted as observation status. Quality VTE Prophylaxis VTE prophylaxis: pharmacologic ordered (Heparin 5000 units subQ q.12 hours.) Hospitalist [facility] [place] Advance Care Plan I have confirmed that the patient's Advanced Care Plan is present, code status is documented, or surrogate decision maker is listed in patient medical record.: Yes Medication Reconciliation I have utilized all available resources to obtain, update and review the patients current medications (includes all prescriptions, OTC, herbals, cannabis, and nutritional supplements).: Yes
[2024-09-30 21:42] LABS: Troponin I 0.080 ng/mL (0.000-0.034)
[2024-09-30] MEDS: VERAPAMIL HCL 120 MG TABLET IMMED RELEASE PO (22:29)
[2024-09-30] MEDS: FAMOTIDINE 20 MG TABLET PO (22:29)
--- NOTE | 2024-09-30 22:49 | ADMGEN ---
This patient, Angel Zuniga, was admitted to IMU Room 203-01. Patient/family oriented to hospital policies and general routines including ID bracelet, bed and alarms, visiting hours, pain management, procedures, bathroom and other care routines, personal items, smoking policy, room service/diet, and visiting hours. Information on how to activate the Rapid Response Team has been discussed. Patient/Family are encouraged to report perceived risks to care and to ask questions if they do not understand what they are told or what they should do.
[2024-09-30] MEDS: BELLADONNA ALK/PHENOB ELIX 10 ML, MAG HYDROX/ALUMINUM HYD/SIMETH 30 ML, LIDOCAINE 2% VI... PO (23:28)
[2024-09-30] MEDS: MORPHINE SULFATE (*CRX) 15 MG TAB IR PO (23:30)
[2024-10-01] VITALS (12 sets, daily range): BP systolic 135–178; BP diastolic 50–67; PULSE 70–93; RESP 16–20; TEMP 37–37.7; O2SAT 94–99
[2024-10-01 01:02] LABS: Troponin I 0.090 ng/mL (0.000-0.034)
[2024-10-01] MEDS: SODIUM CHLORIDE 0.9% IV 1,000 ML 125 ML IV CONT ×3 (03:42→21:05)
[2024-10-01 04:26] LABS: Hematocrit 33.3 % (42.0-52.0); Hemoglobin 10.9 g/dL (14.0-18.0); Immature Granulocyte Percent A 0.9 % (0-0.5); Lymphocytes Absolute Auto 0.41 K/mm3 (0.9-3.2); Mean Corpuscular HGB Conc 32.7 g/dl (32-36); Mean Corpuscular Hemoglobin 30.3 pg (26-34); Mean Corpuscular Volume 92.5 fl (80-100); Nucleated Red Blood Cells Absolute Auto 0.000 K/mm3 (0.0-0.012); Nucleated Red Blood Cells Perc 0.0 % (0.0-0.2); Platelet Count Result 169 k/mm3 (150-375); Red Blood Count 3.60 M/mm3 (4.6-6.20); White Blood Count 16.2 K/mm3 (4.5-10.0)
[2024-10-01 05:11] LABS: Anion Gap 10 mmol/L (4-12); Blood Urea Nitrogen 120 mg/dL (9-20); Calcium 9.1 mg/dL (8.4-10.2); Carbon Dioxide 30 mmol/L (22-30); Chloride 92 mmol/L (98-107); Creatine Kinase 49 U/L (55-170); Estimated CRCL calculation 16 ml/min; Estimated Glomerular Filt Rate 18; Glucose 172 mg/dL (65-110); Magnesium 2.6 mg/dL (1.6-2.3); Potassium 3.2 mmol/L (3.4-5.0); Sodium 132 mmol/L (137-145)
--- NOTE | 2024-10-01 05:52 | PC.NURSE ---
I have reviewed Andreea's charting and assessment of pt. and agree with Andreea's charting and assessment of the pt.
[2024-10-01 06:13] LABS: Total Protein Urine Random 27 mg/dL; Ur Ttl Prot Creatinine Ratio 0.36 mg/mg (0-0.20)
[2024-10-01 06:58] LABS: Urea Random Urine 833 MG/DL
[2024-10-01 08:34] LABS: Urine Eos QC 2nd Tech Confirmed
[2024-10-01] MEDS: CLOPIDOGREL BISULFATE 75 MG TABLET PO (09:01)
[2024-10-01] MEDS: ONDANSETRON INJ 4 MG/2 ML VIAL IV PUSH (09:01)
[2024-10-01] MEDS: PANTOPRAZOLE SODIUM IV 40 MG VIAL IV PUSH ×2 (09:01→21:06)
--- NOTE | 2024-10-01 09:01 | P.PNIM_ITS ---
Progress Note: A&P Assessment and Plan (1) Chest pain: Qualifiers: Chest pain type: unspecified Qualified Code(s): R07.9 - Chest pain, unspecified Code(s): R07.9 - Chest pain, unspecified Status: Acute Assessment and Plan: Chest pain seems atypical in nature. Troponin are elevated but flat. Pain seems more consistent with GI cause with reported indigestion and significant right upper quadrant pain. Will complete troponin series. Will continue Antihypertensives and Plavix. no chest pain currently (2) Acute kidney injury superimposed on CKD: Code(s): N17.9 - Acute kidney failure, unspecified; N18.9 - Chronic kidney disease, unspecified Status: Acute Assessment and Plan: Patient has chronic kidney disease stage 4 with acute kidney injury. Most likely prerenal due to intervascular volume depletion. - hold Lasix and continue IV fluid hydration. - Nephrology was consulted from the ER. - continue flomax (3) Acute uremia: Code(s): N19 - Unspecified kidney failure Status: Acute Assessment and Plan: Possibly due to hypovolemia. GI bleed is less likely given patient's hemoglobin is stable at 12 and patient denies symptoms of hematemesis hematochezia or melena. Will hold Lasix and continue IV fluid hydration and repeat CBC and electrolyte panel in a.m.. (4) Gallbladder hydrops: Code(s): K82.1 - Hydrops of gallbladder Status: Acute Assessment and Plan: CT does not suggest overt acute cholecystitis but patient does have significant kit right upper quadrant pain on palpation and worsening of his nausea with palpation of right upper quadrant. Will obtain right upper quadrant ultrasound for better visualization of the gallbladder. Bilirubin and transaminases are normal. Patient does have some leukocytosis but no fever. Will hold off on adding antibiotic coverage at this time and will repeat CBC in a.m.. (5) Type 2 diabetes mellitus with hyperglycemia, without long-term current use of insulin: Code(s): E11.65 - Type 2 diabetes mellitus with hyperglycemia Status: Acute Assessment and Plan: hold Actos moderate dose sliding scale insulin with Accu-Cheks a.c. HS and hypoglycemia protocol. (6) Chronic pain: Qualifiers: Chronic pain type: chronic pain syndrome Qualified Code(s): G89.4 - Chronic pain syndrome Code(s): G89.29 - Other chronic pain Status: Acute Assessment and Plan: Will resume patient's home morphine 15 mg Q 8 hours p.r.n. pain 7-10. (7) Abdominal aortic aneurysm (AAA) 3.0 cm to 5.5 cm in diameter in male: Code(s): I71.40 - Abdominal aortic aneurysm, without rupture, unspecified Status: Acute Assessment and Plan: Likely chronic will defer follow-up to patient's primary care provider Plan Patient has been admitted as observation status. Time Spent With Patient Time with patient: 25 - 35 minutes Subjective Date/time seen: 10/01/24 09:01 Interval history: 88-year-old male with a past medical history of heart valve replacement, CHF, chronic kidney disease, BPH, type 2 diabetes mellitus and chronic pain who presented to the ER via EMS from home due to nausea, abdominal pain and chest pain for 3 days. The patient reports that he has been having initial symptoms of abdominal pain of his generalized for the last 3 days. In ED- BUN of 120 creatinine 3.86. He was hyperglycemic in the ER. Pt is seen and examined.He denies any chest apin, feels overall tired and somewhat nauseated. Review of Systems Review of Systems: 12 systems were reviewed with pertinent positives and negatives per HPI. Except as documented in the HPI, all other systems were reviewed and are negative. Exam Narrative: Weight 89.4 kg BMI 29.6 Const: General: comfortable Eyes: Sclera: sclerae normal Resp: Effort & Inspection: normal respiratory effort Auscultation: clear to auscultation bilaterally Cardio: Rate: regular rate Rhythm: regular rhythm GI: GI Palp: Yes Soft to palpation Skin: General skin exam: normal color Rashes: no rashes noted Other: N Neuro: Other: Alert oriented to person place and time, speech is clear, mild hearing loss, no localizing neurologic deficit noted during the course of conversation Extrem: General: normal to inspection Psych: Affect: normal affect Objective Data Vital Signs Vital Signs: Vital Signs - 24 hr 09/30/24 15:47 09/30/24 15:52 09/30/24 16:16 Temperature 98.4 F Pulse Rate 97 98 92 Respiratory Rate 18 12 17 Blood Pressure 175/85 H 175/85 H 132/67 Pulse Oximetry 98 97 100 Oxygen Delivery Room Air 09/30/24 16:46 09/30/24 17:01 09/30/24 17:16 Temperature Pulse Rate 89 92 88 Respiratory Rate 14 19 14 Blood Pressure 117/63 138/65 142/68 H Pulse Oximetry 97 94 Oxygen Delivery 09/30/24 17:31 09/30/24 17:46 09/30/24 18:16 Temperature Pulse Rate 85 83 82 Respiratory Rate 16 17 20 Blood Pressure 139/64 147/71 H 143/70 H Pulse Oximetry 97 96 96 Oxygen Delivery 09/30/24 18:36 09/30/24 18:45 09/30/24 19:00 Temperature Pulse Rate 86 84 82 Respiratory Rate 12 10 L 18 Blood Pressure Pulse Oximetry 97 Oxygen Delivery 09/30/24 19:15 09/30/24 19:30 09/30/24 19:46 Temperature Pulse Rate 84 84 83 Respiratory Rate 13 12 13 Blood Pressure 154/74 H 151/67 H Pulse Oximetry 99 Oxygen Delivery 09/30/24 20:01 09/30/24 20:16 09/30/24 20:31 Temperature Pulse Rate 82 85 85 Respiratory Rate 12 15 18 Blood Pressure 144/69 H 155/69 H 152/67 H Pulse Oximetry Oxygen Delivery 09/30/24 21:35 09/30/24 22:00 09/30/24 22:00 Temperature 97.7 F Pulse Rate 103 H 85 83 Respiratory Rate 18 20 Blood Pressure 149/70 H Pulse Oximetry 100 100 Oxygen Delivery Room Air 10/01/24 00:00 10/01/24 00:00 10/01/24 00:00 Temperature 99.3 F Pulse Rate 83 80 80 Respiratory Rate 18 20 Blood Pressure 158/61 H Pulse Oximetry 96 99 Oxygen Delivery Room Air 10/01/24 02:00 10/01/24 03:54 10/01/24 04:00 Temperature Pulse Rate 92 89 87 Respiratory Rate 20 Blood Pressure Pulse Oximetry 99 Oxygen Delivery Room Air 10/01/24 04:00 10/01/24 06:00 10/01/24 08:00 Temperature 99.9 F H 98.6 F Pulse Rate 93 87 92 Respiratory Rate 18 16 Blood Pressure 155/67 H 178/66 H Pulse Oximetry 94 95 Oxygen Delivery Intake/Output Intake/Output: Intake & Output 09/28/24 09/29/24 09/30/24 10/01/24 23:59 23:59 23:59 23:59 Intake Total 1770 Output Total 200 400 Balance -200 1370 Meds/Results Medications: Active Medications Generic Name Dose Route Start Last Admin Trade Name Freq PRN Reason Stop Dose Admin Acetaminophen 650 mg 09/30/24 19:02 Acetaminophen 325 Mg Tablet PO Q4H PRN Mild Pain (1-3) or Fever Clopidogrel Bisulfate 75 mg 10/01/24 09:00 Clopidogrel Bisulfate 75 Mg Tablet PO DAILY VU Dextrose 12.5 gm 09/30/24 20:29 Dextrose 50% 25 Gm/50 Ml Syringe IV PUSH PRN PRN Hypoglycemia Protocol Docusate Sodium 100 mg 10/01/24 09:00 Docusate Sodium 100 Mg Capsule PO DAILY VU Ezetimibe 10 mg 10/01/24 09:00 Ezetimibe 10 Mg Tablet PO DAILY VU Famotidine 20 mg 09/30/24 21:00 09/30/24 22:29 Famotidine 20 Mg Tablet PO 20 mg Q12HR VU Administration Finasteride 5 mg 10/01/24 09:00 Finasteride 5 Mg Tablet PO DAILY VU Fluticasone Propionate 2 spray 09/30/24 20:28 Fluticasone Propionate 0.05% Na Spr 16 Gm Btl (*Bkc) NASAL DAILY PRN allergy symptoms Glucagon 1 mg 09/30/24 20:29 Glucagon For Inj 1 Mg Vial IM PRN PRN Hypoglycemia Protocol Glucose 15 gm 09/30/24 20:29 Glucose Oral Gel 15 Gm Of Glucse In 37.5 Gm Tube PO PRN PRN Hypoglycemia Protocol Heparin Sodium (Porcine) 5,000 units 09/30/24 21:00 09/30/24 22:29 Heparin Sodium 5,000 Units/Ml Vial SUB-Q 5,000 units Q12HR VU Administration Sodium Chloride 1,000 mls @ 125 mls/hr 09/30/24 19:05 10/01/24 03:42 Normal Saline Iv IV CONT 125 mls/hr .Q8H VU Administration Dextrose 1,000 mls @ 100 mls/hr 09/30/24 20:29 Dextrose 5% 1,000 Ml IVPB PRN PRN Hypoglycemia Protocol Insulin Aspart 1 - 3 units 09/30/24 21:00 09/30/24 22:19 Insulin Aspart (*Bkc) 100 Units/Ml SUB-Q Not Given HS [facility] Protocol Insulin Aspart 3 - 6 units 10/01/24 08:00 10/01/24 08:56 Insulin Aspart (*Bkc) 100 Units/Ml SUB-Q Not Given TIDWM [facility] Protocol Morphine Sulfate 15 mg 09/30/24 20:28 09/30/24 23:30 Morphine Sulfate (*Crx) 15 Mg Tab Ir PO 15 mg Q8H PRN Administration pain 7-10 Ondansetron HCl 4 mg 09/30/24 19:02 Ondansetron Inj 4 Mg/2 Ml Vial IV PUSH Q4H PRN Nausea Pantoprazole Sodium 40 mg 10/01/24 09:00 Pantoprazole Sodium Iv 40 Mg Vial IV PUSH Q12HR VU Pioglitazone HCl 15 mg 10/01/24 09:00 Pioglitazone Hcl 15 Mg Tab PO DAILY VU Verapamil HCl 120 mg 09/30/24 21:00 09/30/24 22:29 Verapamil Hcl 120 Mg Tablet Immed Release PO 120 mg Q12HR VU Administration Radiology Results: ITS Impressions Chest X-Ray 09/30/24 16:52 IMPRESSION: No acute cardiopulmonary process. Abdomen/Pelvis CT 09/30/24 19:00 IMPRESSION: Gallbladder hydrops without inflammatory change. Dilated common bile duct, measuring 14 mm. No obstructing stone or mass detected. Correlate with biliary labs. 3.4 cm fusiform infrarenal abdominal aortic aneurysm. Consider follow-up in 3 years. Upper Quadrant Ultrasound 10/01/24 08:43 IMPRESSION: 1. Cholelithiasis with a normal-appearing gallbladder but with mild intra and extrahepatic biliary ductal dilation which raises concern for a nonvisualized distal obstructing choledocholithiasis. Correlate with liver function tests and if clinically indicated could consider further evaluation with either MRCP or ERCP. Labs Labs: Laboratory Results - last 24 hr 09/30/24 09/30/24 09/30/24 16:03 19:35 21:10 WBC 18.1 H RBC 4.09 L Hgb 12.0 Hct 38.3 MCV 93.6 MCH 29.3 MCHC 31.3 L RDW 13.5 Plt Count 197 MPV 9.5 Immature Gran % (Auto) Not Reportable Neut % (Auto) Not Reportable Lymph % (Auto) Not Reportable [place] % (Auto) Not Reportable Eos % (Auto) Not Reportable Baso % (Auto) Not Reportable Lymph # (Auto) Not Reportable [place] # (Auto) Not Reportable Eos # (Auto) Not Reportable Baso # (Auto) Not Reportable Abs Immat Gran (auto) Not Reportable Absolute Neuts (auto) Not Reportable Absolute Nucleated RBC Not Reportable Total Counted 100 Neutrophils % (Manual) 89 H Band Neutrophils % 5 Lymphocytes % (Manual) 1.0 L Monocytes % (Manual) 5 Nucleated RBC % Not Reportable Abs Neuts (Manual) 17.01 H Abs Lymphs (Manual) 0.18 L Abs Monocytes (Manual) 0.90 Platelet Estimate Adequate Clumped Platelets Present Hypochromasia 1+ Anisocytosis 1+ Schistocytes None seen PT 14.2 INR 1.1 APTT 32.4 Sodium 133 L Potassium 3.6 Chloride 89 L Carbon Dioxide 33 H Anion Gap 11 BUN 120 H Creatinine 3.86 H Estim Creat Clear Calc 11 Estimated GFR 11 L Glucose 218 H POC Capillary Glucose Calcium 9.7 Phosphorus Magnesium Total Bilirubin 0.8 AST 33 ALT 23 Alkaline Phosphatase 82 Total Creatine Kinase Troponin I 0.053 H* 0.080 H* D NT-Pro-B Natriuret Pep 1370 H Total Protein 7.9 Albumin 4.4 Lipase 16 L Urine Color Yellow Urine Appearance Clear Urine pH 5.5 Ur Specific [place] 1.015 Urine Protein Trace Urine Glucose (UA) Negative Urine Ketones Negative Ur Blood (Man) Negative Urine Nitrate Negative Urine Bilirubin Negative Urine Urobilinogen 1.0 Leukocyte Esterase Rfl Negative Urine RBC 0-2 Urine WBC 0-5 Ur Squamous Epith Cells None seen Urine Bacteria None seen Urine Casts 0-2 Urine Eosinophils U Random Total Protein Ur Random Sodium Ur Random Urea Urine Total Volume Urine Creatinine Protein/Creat Ratio 2 09/30/24 09/30/24 10/01/24 22:17 23:55 03:52 WBC 16.2 H RBC 3.60 L Hgb 10.9 L Hct 33.3 L MCV 92.5 MCH 30.3 MCHC 32.7 RDW 13.5 Plt Count 169 MPV 9.8 Immature Gran % (Auto) 0.9 H Neut % (Auto) 89.1 H Lymph % (Auto) 2.5 L [place] % (Auto) 7.3 Eos % (Auto) 0.0 Baso % (Auto) 0.2 Lymph # (Auto) 0.41 L [place] # (Auto) 1.2 H Eos # (Auto) 0.0 Baso # (Auto) 0.0 Abs Immat Gran (auto) 0.14 H Absolute Neuts (auto) 14.5 H Absolute Nucleated RBC 0.000 Total Counted Neutrophils % (Manual) Band Neutrophils % Lymphocytes % (Manual) Monocytes % (Manual) Nucleated RBC % 0.0 Abs Neuts (Manual) Abs Lymphs (Manual) Abs Monocytes (Manual) Platelet Estimate Clumped Platelets Hypochromasia Anisocytosis Schistocytes PT INR APTT Sodium 132 L Potassium 3.2 L Chloride 92 L Carbon Dioxide 30 Anion Gap 10 BUN 120 H Creatinine 3.34 H Estim Creat Clear Calc 16 Estimated GFR 18 L Glucose 172 H POC Capillary Glucose 195 H Calcium 9.1 Phosphorus 2.5 Magnesium 2.6 H Total Bilirubin AST ALT Alkaline Phosphatase Total Creatine Kinase 49 L Troponin I 0.090 H* NT-Pro-B Natriuret Pep Total Protein Albumin Lipase Urine Color Urine Appearance Urine pH Ur Specific [place] Urine Protein Urine Glucose (UA) Urine Ketones Ur Blood (Man) Urine Nitrate Urine Bilirubin Urine Urobilinogen Leukocyte Esterase Rfl Urine RBC Urine WBC Ur Squamous Epith Cells Urine Bacteria Urine Casts Urine Eosinophils U Random Total Protein Ur Random Sodium Ur Random Urea Urine Total Volume Urine Creatinine Protein/Creat Ratio 2 10/01/24 10/01/24 10/01/24 04:43 04:43 04:43 WBC RBC Hgb Hct MCV MCH MCHC RDW Plt Count MPV Immature Gran % (Auto) Neut % (Auto) Lymph % (Auto) [place] % (Auto) Eos % (Auto) Baso % (Auto) Lymph # (Auto) [place] # (Auto) Eos # (Auto) Baso # (Auto) Abs Immat Gran (auto) Absolute Neuts (auto) Absolute Nucleated RBC Total Counted Neutrophils % (Manual) Band Neutrophils % Lymphocytes % (Manual) Monocytes % (Manual) Nucleated RBC % Abs Neuts (Manual) Abs Lymphs (Manual) Abs Monocytes (Manual) Platelet Estimate Clumped Platelets Hypochromasia Anisocytosis Schistocytes PT INR APTT Sodium Potassium Chloride Carbon Dioxide Anion Gap BUN Creatinine Estim Creat Clear Calc Estimated GFR Glucose POC Capillary Glucose Calcium Phosphorus Magnesium Total Bilirubin AST ALT Alkaline Phosphatase Total Creatine Kinase Troponin I NT-Pro-B Natriuret Pep Total Protein Albumin Lipase Urine Color Urine Appearance Urine pH Ur Specific [place] Urine Protein Urine Glucose (UA) Urine Ketones Ur Blood (Man) Urine Nitrate Urine Bilirubin Urine Urobilinogen Leukocyte Esterase Rfl Urine RBC Urine WBC Ur Squamous Epith Cells Urine Bacteria Urine Casts Urine Eosinophils None seen U Random Total Protein 27 Cancelled Ur Random Sodium 29 Ur Random Urea 833 Urine Total Volume Cancelled Urine Creatinine 74.8 Cancelled Protein/Creat Ratio 2 0.36 H Quality VTE Prophylaxis VTE prophylaxis: pharmacologic ordered (Heparin 5000 units subQ q.12 hours.)
[2024-10-01] MEDS: FAMOTIDINE 20 MG TABLET PO ×2 (09:02→21:07)
[2024-10-01] MEDS: DOCUSATE SODIUM 100 MG CAPSULE PO (09:02)
[2024-10-01] MEDS: PIOGLITAZONE HCL 15 MG TAB PO (09:02)
[2024-10-01] MEDS: EZETIMIBE 10 MG TABLET PO (09:02)
[2024-10-01] MEDS: VERAPAMIL HCL 120 MG TABLET IMMED RELEASE PO ×2 (09:02→21:06)
[2024-10-01] MEDS: FINASTERIDE 5 MG TABLET PO (09:02)
--- NOTE | 2024-10-01 11:55 | P.CONNP_ITS ---
Assessment and Plan Assessment and plan (1) Acute kidney injury: Code(s): N17.9 - Acute kidney failure, unspecified Status: Acute Assessment and Plan: * as noted on admission * complicated by significant azotemia/elevated BUN * mild improvement in creatinine but BUN still elevated by repeat labs * agree with holding diuretics and trial of IVFs * evaluation to date noted: * admission CT of A/P with no suspicious mass, obstructing stone, or hydronephrosis * prerenal urine electrolytes (by FeUrea) * urine eosinophils negative * mild proteinuria * normal/low CPK * UA without evidence of infection * follow trend of repeat labs and UOP (2) Stage 4 chronic kidney disease: Code(s): N18.4 - Chronic kidney disease, stage 4 (severe) Status: Chronic Assessment and Plan: * slow and progressive decline noted * GFR ~ 22 to 23 in * GFR ~ 20 to 21 in * GFR ~ 18 by July 2024 labs * creatinine has been running anywhere from 2.4 - 3.2mg/dl in the last 6 months * creatinine on 09/27/24 (outpatient labs) = 3.93mg/dl (GFR 15) * most likely due to diabetes and hypertension (3) Azotemia: Code(s): R79.89 - Other specified abnormal findings of blood chemistry Status: Acute Assessment and Plan: * noted on admission * suspected related to diuretic therapy * no evidence of GI bleed * no other culprit medications * follow trend of BUN (4) Gallbladder hydrops: Code(s): K82.1 - Hydrops of gallbladder Status: Acute Assessment and Plan: * CT of A/P without overt acute cholecystitis * however, does have significant right upper quadrant pain on palpation * RUQ ultrasound results noted as well * LFTs normal * consider GI consultation * continue supportive therapy (5) Hypertension: Code(s): I10 - Essential (primary) hypertension Status: Chronic Assessment and Plan: * fluctuating but does have pain issues at this time * follow trend of hemodynamics (6) Type 2 diabetes mellitus with hyperglycemia, without long-term current use of insulin: Code(s): E11.65 - Type 2 diabetes mellitus with hyperglycemia Status: Chronic Assessment and Plan: * follow accu-cheks * glycemic control per hospitalist I will continue to follow the patient with you while he remains hospitalized and make further recommendations as deemed necessary. Thank you for allowing me to participate in the care of this patient. L History of Present Illness Reason for Consult Consult date: 10/01/24 Reason for consult: acute renal failure (on chronic kidney disease versus progression of CKD) Chief Complaint Chief complaint: Chest pain, Acute on chronic renal failure, Uremia History of Present Illness Narrative: Some of the information that I have obtained is from review of the electronic medical records as well as discussion with the physician/nurses involved in the patient's care as despite being fully oriented, it is difficult to get a full and complete history from the patient himself. The patient is an 88-year-old male with a past medical history as outlined below who presented to [facility] Emergency Room with complaints of nausea, abdominal pain, and chest discomfort. Apparently, the symptoms have been present for last 3 or 4 days if not longer. The patient started having symptoms of abdominal pain 1st with she then resulted in problems with nausea and dry heaves but no overt vomiting. Associated symptoms included subjective chills and diaphoresis as well as ?indigestion.He thinks that his symptoms of chest discomfort are more related to his indigestion rather than overt chest pain as a seems to be more associated when he is nauseous with a burning sensation in the center of his chest without radiation although he does state that has occurred several times over last few days. He denies any symptoms of fever but states he has not checked his temperature and denies any other symptoms with regard to shortness of breath, palpitations, dizziness, lightheadedness, or diarrhea. Given the persistence of the symptoms and the fact that he felt that he was not improving, he called EMS and was taken to the ER for further assessment. Workup and evaluation emergency room demonstrated the patient to be hemodynamically stable and afebrile. Routine blood test were significant for an elevated white blood cell count of 18.1 with relative stability in his hemoglobin and platelet count and a chemistry that was no or the for an elevated BUN and creatinine above his baseline at 120 and 3.86 mg/dL, respectively. His EKG was without ischemic changes and his chest x-ray demonstrated no acute pathology. A subsequent CT scan of the abdomen pelvis was done which demonstrated gallbladder hydrops without inflammatory change, dilated common bile duct, and no obstructing stone or mass detected along with a 3.4 cm fusiform infrarenal abdominal aortic aneurysm. Given his symptoms as well as his worsening renal function, his diuretics were placed on hold and he was initiated on IV fluids. There was a concern for gallbladder issues being a cause of his leukocytosis but antibiotics were held on admission. He was subsequently admitted to the hospital for further evaluation and therapy. Since his admission, his creatinine has improved with IV fluids but his BUN remains elevated. He had a right upper quadrant ultrasound done this morning which demonstrated cholelithiasis with a normal-appearing gallbladder but with mild intra and extrahepatic biliary ductal dilation which raises concern for a nonvisualized distal obstructing choledocholithiasis. Renal consultation was requested due to his acute kidney injury/acute renal failure on top of his baseline chronic kidney disease. The patient normally follows with Dr. Popeye Vaughan for management of his chronic kidney disease and last saw him in July of this year. His creatinine has been worsening over the last few years as noted by outpatient labs and his most recent creatinine done in early September of this year she was 3.93 mg/dL. His baseline creatinine seems to run around 2.4-3.2 mg/dL in the last 6 months although his chronic diuretic therapy may be playing a role with these fluctuations. It is felt that his underlying chronic kidney disease is secondary to his diabetes and hypertension with some contributions from chronic diuretic therapy as mentioned. His diuretics have been placed on hold given his significant azotemia on admission. Currently, at the time my evaluation, he does not appear to be in any acute distress. Review of Systems 2 Review of Systems: As per HPI. 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 URI (upper respiratory infection) Preoperative clearance History of colon polyps Dupuytren's contracture of right hand Pre-operative clearance Trigger finger, right middle finger Aortic stenosis Iron deficiency anemia Low back pain radiating to left leg Type II diabetes mellitus with renal manifestations Essential hypertension, benign Mixed hyperlipidemia Bilateral inguinal hernia Small fat containing bilateral inguinal hernias noted on CT 09/30/2024 Hepatic steatosis Chronic pain GERD (gastroesophageal reflux disease) Dyslipidemia BPH (benign prostatic hyperplasia) Type 2 diabetes mellitus Hypertension Hyperlipidemia Chronic kidney disease Heart failure 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 moderate mitral valve regurgitation Surgical History Surgical History History of repair of right rotator cuff (~07/05/14) Subacromial Decompression; Limited Debridement Status post cataract extraction of both eyes with insertion of intraocular lens 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 He has 3 children. He is a retired [employer]. He he is a lifelong nonsmoker and does not drink alcohol or use illicit substances. He ambulates with a walker. Code status: Full code (he states he would not want long-term intubation or feeding tube) Surrogate decision maker: Nallely () Smoking status: Never smoker Second hand tobacco smoke exposure: No Alcohol intake: never Substance use: never Do You Feel Safe in your Home?: Yes Lack of Transportation: YES Lack of Food: Never True Current Housing: I Have Housing Concerned About Future Housing: No Difficulty Paying Gas/Electric Bills: No Difficulty Paying for Meds: No Currently Unemployed: No Education: High School Diploma/GED Difficulty w/ Childcare or Family Care: No Living arrangements: with family Gender identity (if verbalized by the patient): Male Spiritual care concerns: No Meds Home Medications and Allergies Home Medications ?Medication ?Instructions ?Recorded ?Confirmed ?Type clopidogrel 75 mg tablet 75 mg PO DAILY 07/25/23 08/13/24 History fluticasone propionate 50 See Rx Instructions .Route 02/27/24 08/13/24 Rx mcg/actuation nasal .COMPLEX #48 mL spray,suspension cetirizine 5 mg tablet (Allergy 5 mg PO DAILY #30 tabs 05/08/24 08/13/24 Rx Relief (cetirizine)) ezetimibe 10 mg tablet See Rx Instructions .Route 05/09/24 08/13/24 Rx .COMPLEX #90 tabs famotidine 20 mg tablet See Rx Instructions .Route 05/09/24 08/13/24 Rx .COMPLEX #180 tabs finasteride 5 mg tablet See Rx Instructions .Route 05/09/24 08/13/24 Rx .COMPLEX #90 tabs pioglitazone 15 mg tablet See Rx Instructions .Route 05/09/24 08/13/24 Rx .COMPLEX #90 tabs verapamil 80 mg tablet See Rx Instructions .Route 06/11/24 08/13/24 Rx .COMPLEX #60 tabs metolazone 5 mg tablet 5 mg PO .COMPLEX #20 tabs 07/26/24 08/13/24 Rx furosemide 40 mg tablet See Rx Instructions .Route 08/02/24 10/07/24 Rx .COMPLEX #180 tabs doxazosin 4 mg tablet (Cardura) 4 mg PO QHS #30 tabs 08/08/24 08/08/24 Rx morphine 15 mg immediate release 15 mg PO Q8H PRN pain #80 tabs 09/28/24 Rx tablet clopidogrel 75 mg tablet (Plavix) 75 mg PO DAILY 09/30/24 09/30/24 History docusate sodium 100 mg capsule 100 mg PO DAILY 09/30/24 09/30/24 History (Colace) ezetimibe 10 mg tablet (Zetia) 10 mg PO DAILY 09/30/24 09/30/24 History famotidine 20 mg tablet (Acid 20 mg PO BID 09/30/24 09/30/24 History Controller) finasteride 5 mg tablet 5 mg PO DAILY 09/30/24 09/30/24 History fluticasone propionate 50 2 spray intranasal DAILY PRN 09/30/24 09/30/24 History mcg/actuation nasal allergy symptoms spray,suspension (Flonase Allergy Relief) metolazone 5 mg tablet 5 mg PO DAILY 09/30/24 09/30/24 History morphine 15 mg immediate release 15 mg PO Q8H PRN pain 09/30/24 09/30/24 History tablet pioglitazone 15 mg tablet (Actos) 15 mg PO DAILY 09/30/24 09/30/24 History verapamil 120 mg tablet 120 mg PO DAILY 09/30/24 09/30/24 History Allergies Allergy/AdvReac Type Severity Reaction Status Date / Time atorvastatin Allergy Unknown myalgia Verified 10/01/24 08:17 rosuvastatin Allergy Unknown myalgia Verified 10/01/24 08:17 Vital Signs Vital Signs Temp Pulse Resp BP Pulse Ox O2 Del Method 10/01/24 08:00 83 10/01/24 08:00 98.6 F 92 16 178/66 H 95 10/01/24 06:00 87 10/01/24 04:00 99.9 F H 93 18 155/67 H 94 10/01/24 04:00 87 10/01/24 03:54 89 20 99 Room Air 10/01/24 02:00 92 10/01/24 00:00 80 10/01/24 00:00 80 20 99 Room Air 10/01/24 00:00 99.3 F 83 18 158/61 H 96 09/30/24 22:00 83 09/30/24 22:00 85 20 100 Room Air 09/30/24 21:35 97.7 F 103 H 18 149/70 H 100 09/30/24 20:31 85 18 152/67 H 09/30/24 20:16 85 15 155/69 H 09/30/24 20:01 82 12 144/69 H 09/30/24 19:46 83 13 151/67 H 09/30/24 19:30 84 12 154/74 H 09/30/24 19:15 84 13 99 09/30/24 19:00 82 18 97 09/30/24 18:45 84 10 L 09/30/24 18:36 86 12 09/30/24 18:16 82 20 143/70 H 96 09/30/24 17:46 83 17 147/71 H 96 09/30/24 17:31 85 16 139/64 97 09/30/24 17:16 88 14 142/68 H 94 09/30/24 17:01 92 19 138/65 09/30/24 16:46 89 14 117/63 97 09/30/24 16:16 92 17 132/67 100 09/30/24 15:52 98 12 175/85 H 97 09/30/24 15:47 98.4 F 97 18 175/85 H 98 Room Air Exam 2 Narrative: GENERAL APPEARANCE: elderly but well developed well nourished male in no acute distress HEENT: normocephalic, atraumatic, normal conjunctiva and sclera, nares patient NECK: no lymphadenopathy, thyromegaly, or JVD MOUTH: normal lips, teeth, and gums CARDIOVASCULAR: RRR, normal S1 and S2, no rub RESPIRATORY: clear anteroirly ABDOMEN: soft, mild TTP in lower quadrants and RUQ; nondistended, positive bowel sounds present EXTREMITIES: no evidence of cyanosis, clubbing, or edema NEUROLOGICAL: alert and oriented x 3; CN II - XII intact bilaterally; no focal deficits noted Results Lab Results 10/09/24 08:01 10/09/24 08:01 Lab results: Most recent lab results Calcium 9.1 mg/dL (8.4-10.2) 10/01/24 03:52 Phosphorus 2.5 mg/dL (2.5-4.5) 10/01/24 03:52 Magnesium 2.6 mg/dL (1.6-2.3) H 10/01/24 03:52 Urine Creatinine 74.8 mg/dL 10/01/24 04:43 Urine Creatinine Cancelled 10/01/24 04:43
[2024-10-01] MEDS: POTASSIUM CHLORIDE 20 MEQ ER TABLET 40 MEQ PO (13:18)
--- NOTE | 2024-10-01 13:56 | PC.NURSE ---
This patient, Angel Zuniga, was received from IMU on 10/01/24 at 1355. Patient/family oriented to unit policies and routines
[2024-10-01] MEDS: MORPHINE SULFATE (*CRX) 15 MG TAB IR PO (21:07)
[2024-10-02 04:00] VITALS: BP 152/56; PULSE 81; RESP 12; TEMP 36.9; O2SAT 94
[2024-10-02 05:20] LABS: Hematocrit 31.4 % (42.0-52.0); Hemoglobin 10.0 g/dL (14.0-18.0); Mean Corpuscular HGB Conc 31.8 g/dl (32-36); Mean Corpuscular Hemoglobin 29.9 pg (26-34); Mean Corpuscular Volume 93.7 fl (80-100); Platelet Count Result 147 k/mm3 (150-375); Red Blood Count 3.35 M/mm3 (4.6-6.20); White Blood Count 12.6 K/mm3 (4.5-10.0)
[2024-10-02] MEDS: SODIUM CHLORIDE 0.9% IV 1,000 ML 125 ML IV CONT (05:27)
[2024-10-02 05:38] LABS: Anion Gap 9 mmol/L (4-12); Blood Urea Nitrogen 100 mg/dL (9-20); Calcium 8.5 mg/dL (8.4-10.2); Carbon Dioxide 25 mmol/L (22-30); Chloride 97 mmol/L (98-107); Estimated CRCL calculation 19 ml/min; Estimated Glomerular Filt Rate 20; Glucose 140 mg/dL (65-110); Potassium 3.6 mmol/L (3.4-5.0); Sodium 131 mmol/L (137-145)
[2024-10-02 08:00] VITALS: BP 151/54; PULSE 81; RESP 18; TEMP 38.3; O2SAT 96
[2024-10-02 09:21] VITALS: TEMP 38.3
[2024-10-02] MEDS: FAMOTIDINE 20 MG TABLET PO ×2 (09:21→20:37)
[2024-10-02] MEDS: CLOPIDOGREL BISULFATE 75 MG TABLET PO (09:21)
[2024-10-02] MEDS: VERAPAMIL HCL 120 MG TABLET IMMED RELEASE PO ×2 (09:21→20:37)
[2024-10-02] MEDS: DOCUSATE SODIUM 100 MG CAPSULE PO (09:21)
[2024-10-02] MEDS: EZETIMIBE 10 MG TABLET PO (09:21)
[2024-10-02] MEDS: ACETAMINOPHEN 325 MG TABLET 650 MG PO (09:21)
[2024-10-02] MEDS: FINASTERIDE 5 MG TABLET PO (09:21)
[2024-10-02] MEDS: PANTOPRAZOLE SODIUM IV 40 MG VIAL IV PUSH ×2 (09:22→20:37)
--- NOTE | 2024-10-02 10:05 | P.PNNP_ITS ---
Progress Note: A&P Assessment and Plan (1) Acute kidney injury: Code(s): N17.9 - Acute kidney failure, unspecified Status: Acute Assessment and Plan: * as noted on admission * complicated by significant azotemia/elevated BUN * mild improvement in creatinine but BUN still elevated by repeat labs * agree with holding diuretics and trial of IVFs * follow respiratory status closely given hx of CHF * evaluation to date noted: * admission CT of A/P with no suspicious mass, obstructing stone, or hydronephrosis * prerenal urine electrolytes (by FeUrea) * urine eosinophils negative * mild proteinuria * normal/low CPK * UA without evidence of infection * suspect multifactorial etiology: * prerenal factors * overdiuresis(?) * possible infection (secondary to gallbladder issues?) * other(?) * follow trend of repeat labs and UOP (2) Stage 4 chronic kidney disease: Code(s): N18.4 - Chronic kidney disease, stage 4 (severe) Status: Chronic Assessment and Plan: * slow and progressive decline noted * GFR ~ 22 to 23 in * GFR ~ 20 to 21 in 2022/2023 * GFR ~ 18 by July 2024 labs * creatinine has been running anywhere from 2.4 - 3.2mg/dl in the last 6 months * creatinine on 09/27/24 (outpatient labs) = 3.93mg/dl (GFR 15) * most likely due to diabetes and hypertension + chronic diuretic therapy (3) Azotemia: Code(s): R79.89 - Other specified abnormal findings of blood chemistry Status: Acute Assessment and Plan: * noted on admission * suspected related to diuretic therapy * no evidence of GI bleed * no other culprit medications * follow trend of BUN (4) Gallbladder hydrops: Code(s): K82.1 - Hydrops of gallbladder Status: Acute Assessment and Plan: * CT of A/P without overt acute cholecystitis * however, does have significant right upper quadrant pain on palpation * RUQ ultrasound results noted as well * LFTs normal * consider GI consultation * continue supportive therapy (5) Hypertension: Code(s): I10 - Essential (primary) hypertension Status: Chronic Assessment and Plan: * fluctuating but does have pain issues at this time * follow trend of hemodynamics (6) Type 2 diabetes mellitus with hyperglycemia, without long-term current use of insulin: Code(s): E11.65 - Type 2 diabetes mellitus with hyperglycemia Status: Chronic Assessment and Plan: * follow accu-cheks * glycemic control per hospitalist Will continue to follow. L Subjective Date/time seen: 10/02/24 09:53 Interval history: Follow-up for acute kidney injury/acute renal failure on chronic kidney disease. Renal function/creatinine as well as BUN have appear to be doing better by repeat labs and interventions to date (IVFs and holding diuretics); low grade fever noted this AM; major complaint is that of fatigue/weakness and on/off nausea at the time of my visit; no other acute complaints voiced. Exam 2 Narrative: General: elderly but WD/WN male in NAD Heart: normal S1 and S2; no rub Lungs: clear anteriolry Abdomen: soft, +TTP in RUQ; nondistended, positive bowel sounds Extremities: no cyanosis or clubbing; trace - 1+ edema (L > R) Skin: warm and dry Objective Data Vital Signs Vital Signs: Vital Signs Temp Pulse Resp BP Pulse Ox O2 Del Method 10/02/24 09:30 Room Air 10/02/24 09:21 100.9 F H 10/02/24 08:00 100.9 F H 81 18 151/54 H 96 10/02/24 04:00 98.5 F 81 12 152/56 H 94 10/01/24 23:40 99.4 F 71 20 135/60 95 10/01/24 20:00 Room Air 10/01/24 20:00 99.0 F 78 20 147/58 H 98 10/01/24 14:56 99.2 F 83 18 146/58 H 99 Intake/Output Intake/Output: Intake & Output 09/29/24 09/30/24 10/01/24 10/02/24 23:59 23:59 23:59 23:59 Intake Total 4843.8 2190 Output Total 200 1100 600 Balance -200 3743.8 1590 Meds/Results Medications: Active Medications Generic Name Dose Route Start Last Admin Trade Name Freq PRN Reason Stop Dose Admin Acetaminophen 650 mg 09/30/24 19:02 10/02/24 09:21 Acetaminophen 325 Mg Tablet PO 650 mg Q4H PRN Administration Mild Pain (1-3) or Fever Clopidogrel Bisulfate 75 mg 10/01/24 09:00 10/02/24 09:21 Clopidogrel Bisulfate 75 Mg Tablet PO 75 mg DAILY VU Administration Dextrose 12.5 gm 09/30/24 20:29 Dextrose 50% 25 Gm/50 Ml Syringe IV PUSH PRN PRN Hypoglycemia Protocol Docusate Sodium 100 mg 10/01/24 09:00 10/02/24 09:21 Docusate Sodium 100 Mg Capsule PO 100 mg DAILY VU Administration Ezetimibe 10 mg 10/01/24 09:00 10/02/24 09:21 Ezetimibe 10 Mg Tablet PO 10 mg DAILY VU Administration Famotidine 20 mg 09/30/24 21:00 10/02/24 09:21 Famotidine 20 Mg Tablet PO 20 mg Q12HR VU Administration Finasteride 5 mg 10/01/24 09:00 10/02/24 09:21 Finasteride 5 Mg Tablet PO 5 mg DAILY VU Administration Fluticasone Propionate 2 spray 09/30/24 20:28 Fluticasone Propionate 0.05% Na Spr 16 Gm Btl (*Bkc) NASAL DAILY PRN allergy symptoms Glucagon 1 mg 09/30/24 20:29 Glucagon For Inj 1 Mg Vial IM PRN PRN Hypoglycemia Protocol Glucose 15 gm 09/30/24 20:29 Glucose Oral Gel 15 Gm Of Glucse In 37.5 Gm Tube PO PRN PRN Hypoglycemia Protocol Heparin Sodium (Porcine) 5,000 units 09/30/24 21:00 10/02/24 09:23 Heparin Sodium 5,000 Units/Ml Vial SUB-Q 5,000 units Q12HR VU Administration Sodium Chloride 1,000 mls @ 125 mls/hr 09/30/24 19:05 10/02/24 05:27 Normal Saline Iv IV CONT 125 mls/hr .Q8H VU Administration Dextrose 1,000 mls @ 100 mls/hr 09/30/24 20:29 Dextrose 5% 1,000 Ml IVPB PRN PRN Hypoglycemia Protocol Insulin Aspart 1 - 3 units 09/30/24 21:00 10/01/24 21:07 Insulin Aspart (*Bkc) 100 Units/Ml SUB-Q Not Given HS VU Protocol Insulin Aspart 3 - 6 units 10/01/24 08:00 10/02/24 12:20 Insulin Aspart (*Bkc) 100 Units/Ml SUB-Q Not Given TIDWM VU Protocol Morphine Sulfate 15 mg 09/30/24 20:28 10/02/24 12:04 Morphine Sulfate (*Crx) 15 Mg Tab Ir PO 15 mg Q8H PRN Administration pain 7-10 Ondansetron HCl 4 mg 09/30/24 19:02 10/01/24 09:01 Ondansetron Inj 4 Mg/2 Ml Vial IV PUSH 4 mg Q4H PRN Administration Nausea Pantoprazole Sodium 40 mg 10/01/24 09:00 10/02/24 09:22 Pantoprazole Sodium Iv 40 Mg Vial IV PUSH 40 mg Q12HR VU Administration Polyethylene Glycol 17 gm 10/01/24 21:11 Polyethylene Glycol 3350 17 Gm Powd.Pack PO DAILY PRN Constipation Verapamil HCl 120 mg 09/30/24 21:00 10/02/24 09:21 Verapamil Hcl 120 Mg Tablet Immed Release PO 120 mg Q12HR VU Administration Radiology Results: ITS Impressions Chest X-Ray 09/30/24 16:52 IMPRESSION: No acute cardiopulmonary process. Abdomen/Pelvis CT 09/30/24 19:00 IMPRESSION: Gallbladder hydrops without inflammatory change. Dilated common bile duct, measuring 14 mm. No obstructing stone or mass detected. Correlate with biliary labs. 3.4 cm fusiform infrarenal abdominal aortic aneurysm. Consider follow-up in 3 years. Upper Quadrant Ultrasound 10/01/24 08:43 IMPRESSION: 1. Cholelithiasis with a normal-appearing gallbladder but with mild intra and extrahepatic biliary ductal dilation which raises concern for a nonvisualized distal obstructing choledocholithiasis. Correlate with liver function tests and if clinically indicated could consider further evaluation with either MRCP or ERCP. Labs Labs: Laboratory Tests 10/02/24 04:32 10/02/24 04:32
--- NOTE | 2024-10-02 10:11 | P.PNIM_ITS ---
Progress Note: A&P Assessment and Plan (1) Chest pain: Qualifiers: Chest pain type: unspecified Qualified Code(s): R07.9 - Chest pain, unspecified Code(s): R07.9 - Chest pain, unspecified Status: Acute Assessment and Plan: Chest pain seems atypical in nature. Troponin are elevated but flat. Pain seems more consistent with GI cause with reported indigestion and significant right upper quadrant pain. Will complete troponin series. Will continue Antihypertensives and Plavix. no chest pain currently (2) Acute kidney injury superimposed on CKD: Code(s): N17.9 - Acute kidney failure, unspecified; N18.9 - Chronic kidney disease, unspecified Status: Acute Assessment and Plan: Patient has chronic kidney disease stage 4 with acute kidney injury. Most likely prerenal due to intervascular volume depletion. - hold Lasix and continue IV fluid hydration. - Nephrology was consulted from the ER. - continue flomax 6/10- cr/bun 2.96/100 (3) Acute uremia: Code(s): N19 - Unspecified kidney failure Status: Acute Assessment and Plan: Possibly due to hypovolemia. GI bleed is less likely given patient's hemoglobin is stable at 12 and patient denies symptoms of hematemesis hematochezia or melena. Will hold Lasix and continue IV fluid hydration and repeat CBC and electrolyte panel in a.m.. - decrease IV fluids to 50 ml and monitor I/O closely (4) Gallbladder hydrops: Code(s): K82.1 - Hydrops of gallbladder Status: Acute Assessment and Plan: CT does not suggest overt acute cholecystitis but patient does have significant kit right upper quadrant pain on palpation and worsening of his nausea with palpation of right upper quadrant. Will obtain right upper quadrant ultrasound for better visualization of the gallbladder. Bilirubin and transaminases are normal. Patient does have some leukocytosis but no fever. Will hold off on adding antibiotic coverage at this time and will repeat CBC in a.m.. (5) Type 2 diabetes mellitus with hyperglycemia, without long-term current use of insulin: Code(s): E11.65 - Type 2 diabetes mellitus with hyperglycemia Status: Acute Assessment and Plan: hold Actos moderate dose sliding scale insulin with Accu-Cheks a.c. HS and hypoglycemia protocol. (6) Chronic pain: Qualifiers: Chronic pain type: chronic pain syndrome Qualified Code(s): G89.4 - Chronic pain syndrome Code(s): G89.29 - Other chronic pain Status: Acute Assessment and Plan: Will resume patient's home morphine 15 mg Q 8 hours p.r.n. pain 7-10. (7) Abdominal aortic aneurysm (AAA) 3.0 cm to 5.5 cm in diameter in male: Code(s): I71.40 - Abdominal aortic aneurysm, without rupture, unspecified Status: Acute Assessment and Plan: Likely chronic will defer follow-up to patient's primary care provider Plan Patient has been admitted as observation status. Time Spent With Patient Time with patient: 25 - 35 minutes Subjective Date/time seen: 10/02/24 10:11 Interval history: 88-year-old male with a past medical history of heart valve replacement, CHF, chronic kidney disease, BPH, type 2 diabetes mellitus and chronic pain who presented to the ER via EMS from home due to nausea, abdominal pain and chest pain for 3 days. The patient reports that he has been having initial symptoms of abdominal pain of his generalized for the last 3 days. In ED- BUN of 120 creatinine 3.86. He was hyperglycemic in the ER. Pt is seen and examined.He denies any chest pain, feels overall tired and somewhat nauseated. 10/02 - pt is seen and examined. He is very weak, unable to do much on his own. No abd pain, no nausea today. Cr is improving- nephrology following. Review of Systems Review of Systems: 12 systems were reviewed with pertinent positives and negatives per HPI. Except as documented in the HPI, all other systems were reviewed and are negative. Exam Narrative: Weight 89.4 kg BMI 29.6 Const: General: comfortable Other: No acute distress, well-developed, obese, appears stated age HENMT: Other: Mucous membranes are tacky, upper and lower dentures in place Eyes: Sclera: sclerae normal Other: Bilateral lens replacements noted, no conjunctival pallor, no scleral icterus Neck: Other: Large neck circumference, no JVD, loss of cervical lordosis Resp: Effort & Inspection: normal respiratory effort Auscultation: clear to auscultation bilaterally Other: Clear to auscultation bilaterally, no increased work of breathing Cardio: Rate: regular rate Rhythm: regular rhythm Other: Regular rate, regular rhythm, no murmur, 2+ bilateral radial and pedal pulses GI: Other: Mild discomfort to palpation in his lower quadrants, severe pain in the right upper quadrant positive Burroughs sign, normoactive bowel sounds, soft, obese Skin: General skin exam: normal color and No rashes Rashes: no rashes noted Other: N Neuro: Other: Alert oriented to person place and time, speech is clear, mild hearing loss, no localizing neurologic deficit noted during the course of conversation Extrem: General: normal to inspection Other: 5/5 manager spanish strength bilaterally, trace lisa ma right lower extremity 1+ edema left lower extremity Psych: Affect: normal affect Other: Flat affect, cooperative, appropriate insight and judgment Objective Data Vital Signs Vital Signs: Vital Signs - 24 hr 10/01/24 11:28 10/01/24 12:00 10/01/24 14:56 Temperature 98.6 F 99.2 F Pulse Rate 71 70 83 Respiratory Rate 18 18 Blood Pressure 144/50 H 146/58 H Pulse Oximetry 96 99 Oxygen Delivery 10/01/24 20:00 10/01/24 20:00 10/01/24 23:40 Temperature 99.0 F 99.4 F Pulse Rate 78 71 Respiratory Rate 20 20 Blood Pressure 147/58 H 135/60 Pulse Oximetry 98 95 Oxygen Delivery Room Air 10/02/24 04:00 10/02/24 08:00 10/02/24 09:21 Temperature 98.5 F 100.9 F H 100.9 F H Pulse Rate 81 81 Respiratory Rate 12 18 Blood Pressure 152/56 H 151/54 H Pulse Oximetry 94 96 Oxygen Delivery Intake/Output Intake/Output: Intake & Output 09/29/24 09/30/24 10/01/24 10/02/24 23:59 23:59 23:59 23:59 Intake Total 4843.8 2190 Output Total 200 1100 600 Balance -200 3743.8 1590 Meds/Results Medications: Active Medications Generic Name Dose Route Start Last Admin Trade Name Freq PRN Reason Stop Dose Admin Acetaminophen 650 mg 09/30/24 19:02 10/02/24 09:21 Acetaminophen 325 Mg Tablet PO 650 mg Q4H PRN Administration Mild Pain (1-3) or Fever Clopidogrel Bisulfate 75 mg 10/01/24 09:00 10/02/24 09:21 Clopidogrel Bisulfate 75 Mg Tablet PO 75 mg DAILY VU Administration Dextrose 12.5 gm 09/30/24 20:29 Dextrose 50% 25 Gm/50 Ml Syringe IV PUSH PRN PRN Hypoglycemia Protocol Docusate Sodium 100 mg 10/01/24 09:00 10/02/24 09:21 Docusate Sodium 100 Mg Capsule PO 100 mg DAILY VU Administration Ezetimibe 10 mg 10/01/24 09:00 10/02/24 09:21 Ezetimibe 10 Mg Tablet PO 10 mg DAILY VU Administration Famotidine 20 mg 09/30/24 21:00 10/02/24 09:21 Famotidine 20 Mg Tablet PO 20 mg Q12HR VU Administration Finasteride 5 mg 10/01/24 09:00 10/02/24 09:21 Finasteride 5 Mg Tablet PO 5 mg DAILY VU Administration Fluticasone Propionate 2 spray 09/30/24 20:28 Fluticasone Propionate 0.05% Na Spr 16 Gm Btl (*Bkc) NASAL DAILY PRN allergy symptoms Glucagon 1 mg 09/30/24 20:29 Glucagon For Inj 1 Mg Vial IM PRN PRN Hypoglycemia Protocol Glucose 15 gm 09/30/24 20:29 Glucose Oral Gel 15 Gm Of Glucse In 37.5 Gm Tube PO PRN PRN Hypoglycemia Protocol Heparin Sodium (Porcine) 5,000 units 09/30/24 21:00 10/02/24 09:23 Heparin Sodium 5,000 Units/Ml Vial SUB-Q 5,000 units Q12HR VU Administration Sodium Chloride 1,000 mls @ 125 mls/hr 09/30/24 19:05 10/02/24 05:27 Normal Saline Iv IV CONT 125 mls/hr .Q8H VU Administration Dextrose 1,000 mls @ 100 mls/hr 09/30/24 20:29 Dextrose 5% 1,000 Ml IVPB PRN PRN Hypoglycemia Protocol Insulin Aspart 1 - 3 units 09/30/24 21:00 10/01/24 21:07 Insulin Aspart (*Bkc) 100 Units/Ml SUB-Q Not Given HS VU Protocol Insulin Aspart 3 - 6 units 10/01/24 08:00 10/02/24 08:43 Insulin Aspart (*Bkc) 100 Units/Ml SUB-Q Not Given TIDWM VU Protocol Morphine Sulfate 15 mg 09/30/24 20:28 10/01/24 21:07 Morphine Sulfate (*Crx) 15 Mg Tab Ir PO 15 mg Q8H PRN Administration pain 7-10 Ondansetron HCl 4 mg 09/30/24 19:02 10/01/24 09:01 Ondansetron Inj 4 Mg/2 Ml Vial IV PUSH 4 mg Q4H PRN Administration Nausea Pantoprazole Sodium 40 mg 10/01/24 09:00 10/02/24 09:22 Pantoprazole Sodium Iv 40 Mg Vial IV PUSH 40 mg Q12HR VU Administration Polyethylene Glycol 17 gm 10/01/24 21:11 Polyethylene Glycol 3350 17 Gm Powd.Pack PO DAILY PRN Constipation Verapamil HCl 120 mg 09/30/24 21:00 10/02/24 09:21 Verapamil Hcl 120 Mg Tablet Immed Release PO 120 mg Q12HR VU Administration Radiology Results: ITS Impressions Chest X-Ray 09/30/24 16:52 IMPRESSION: No acute cardiopulmonary process. Abdomen/Pelvis CT 09/30/24 19:00 IMPRESSION: Gallbladder hydrops without inflammatory change. Dilated common bile duct, measuring 14 mm. No obstructing stone or mass detected. Correlate with biliary labs. 3.4 cm fusiform infrarenal abdominal aortic aneurysm. Consider follow-up in 3 years. Upper Quadrant Ultrasound 10/01/24 08:43 IMPRESSION: 1. Cholelithiasis with a normal-appearing gallbladder but with mild intra and extrahepatic biliary ductal dilation which raises concern for a nonvisualized distal obstructing choledocholithiasis. Correlate with liver function tests and if clinically indicated could consider further evaluation with either MRCP or ERCP. Labs Labs: Laboratory Results - last 24 hr 10/01/24 10/01/24 10/01/24 10:53 16:54 20:55 WBC RBC Hgb Hct MCV MCH MCHC RDW Plt Count MPV Sodium Potassium Chloride Carbon Dioxide Anion Gap BUN Creatinine Estim Creat Clear Calc Estimated GFR Glucose POC Capillary Glucose 175 H 165 H 193 H Calcium 10/02/24 10/02/24 04:32 08:14 WBC 12.6 H RBC 3.35 L Hgb 10.0 L Hct 31.4 L MCV 93.7 MCH 29.9 MCHC 31.8 L RDW 13.9 Plt Count 147 L MPV 10.2 Sodium 131 L Potassium 3.6 Chloride 97 L Carbon Dioxide 25 Anion Gap 9 BUN 100 H D Creatinine 2.96 H Estim Creat Clear Calc 19 Estimated GFR 20 L Glucose 140 H POC Capillary Glucose 147 H Calcium 8.5 Quality VTE Prophylaxis VTE prophylaxis: pharmacologic ordered (Heparin 5000 units subQ q.12 hours.)
[2024-10-02 12:00] VITALS: BP 114/54; PULSE 60; RESP 18; TEMP 36.9; O2SAT 95
[2024-10-02] MEDS: MORPHINE SULFATE (*CRX) 15 MG TAB IR PO ×2 (12:04→20:36)
[2024-10-02] MEDS: SODIUM CHLORIDE 0.9% IV 1,000 ML 70 ML IV CONT (13:07)
[2024-10-02 16:00] VITALS: BP 144/62; PULSE 72; RESP 20; TEMP 36.6; O2SAT 97
[2024-10-02] MEDS: ONDANSETRON INJ 4 MG/2 ML VIAL IV PUSH (18:18)
[2024-10-02 20:00] VITALS: BP 125/49; PULSE 79; RESP 18; TEMP 37.5; O2SAT 97
[2024-10-03] VITALS (8 sets, daily range): BP systolic 100–149; BP diastolic 47–67; PULSE 61–78; RESP 18–20; TEMP 36.5–38.1; O2SAT 90–97
[2024-10-03 05:16] LABS: Hematocrit 30.5 % (42.0-52.0); Hemoglobin 9.6 g/dL (14.0-18.0); Mean Corpuscular HGB Conc 31.5 g/dl (32-36); Mean Corpuscular Hemoglobin 29.9 pg (26-34); Mean Corpuscular Volume 95.0 fl (80-100); Platelet Count Result 132 k/mm3 (150-375); Red Blood Count 3.21 M/mm3 (4.6-6.20); White Blood Count 12.2 K/mm3 (4.5-10.0)
[2024-10-03 05:30] LABS: Albumin Level 3.2 g/dL (3.5-5.1); Anion Gap 11 mmol/L (4-12); Blood Urea Nitrogen 91 mg/dL (9-20); Calcium 8.2 mg/dL (8.4-10.2); Carbon Dioxide 22 mmol/L (22-30); Chloride 98 mmol/L (98-107); Estimated CRCL calculation 17 ml/min; Estimated Glomerular Filt Rate 18; Glucose 145 mg/dL (65-110); Potassium 3.5 mmol/L (3.4-5.0); Sodium 131 mmol/L (137-145)
[2024-10-03] MEDS: SODIUM CHLORIDE 0.9% IV 1,000 ML 50 ML IV CONT ×2 (06:50→23:50)
--- NOTE | 2024-10-03 08:31 | PCOTNOTE ---
Patient refused treatment this session due to pain. KYLEE Us notified.
[2024-10-03] MEDS: FINASTERIDE 5 MG TABLET PO (08:41)
[2024-10-03] MEDS: MORPHINE SULFATE (*CRX) 15 MG TAB IR PO (08:41)
[2024-10-03] MEDS: DOCUSATE SODIUM 100 MG CAPSULE PO (08:41)
[2024-10-03] MEDS: VERAPAMIL HCL 120 MG TABLET IMMED RELEASE PO ×2 (08:41→20:55)
[2024-10-03] MEDS: EZETIMIBE 10 MG TABLET PO (08:41)
[2024-10-03] MEDS: CLOPIDOGREL BISULFATE 75 MG TABLET PO (08:41)
[2024-10-03] MEDS: FAMOTIDINE 20 MG TABLET PO ×2 (08:41→20:55)
[2024-10-03] MEDS: PANTOPRAZOLE SODIUM IV 40 MG VIAL IV PUSH ×2 (08:42→20:56)
--- NOTE | 2024-10-03 09:53 | PM.IMPN ---
Progress Note: A&P Assessment and Plan (1) Chest pain: Qualifiers: Chest pain type: unspecified Qualified Code(s): R07.9 - Chest pain, unspecified Code(s): R07.9 - Chest pain, unspecified Status: Acute Assessment and Plan: -Chest pain seems atypical in nature, pt continue to deny CP. -Troponin are elevated but flat. Will complete troponin series. -Pain seems more consistent with GI cause with reported indigestion and significant right upper quadrant pain. -Will continue Antihypertensives and Plavix. (2) Acute kidney injury superimposed on CKD: Code(s): N17.9 - Acute kidney failure, unspecified; N18.9 - Chronic kidney disease, unspecified Status: Acute Assessment and Plan: Patient has chronic kidney disease stage 4 with acute kidney injury. Most likely prerenal due to intervascular volume depletion. - Hold Lasix and continue IV fluid hydration. - Nephrology was consulted from the ER. - Continue flomax 10/02- cr/bun 2.96/100 10/03: Cr/BUN: 3.26/91, pending neph rounds due to worsening Cr (3) Acute uremia: Code(s): N19 - Unspecified kidney failure Status: Acute Assessment and Plan: Possibly due to hypovolemia. GI bleed is less likely given patient's hemoglobin is stable at 12 in ED and patient denies symptoms of hematemesis hematochezia or melena. Pt continues to deny any blood loss. -Will hold Lasix and continue IV fluid hydration and repeat CBC and electrolyte panel in a.m. -Decrease IV fluids to 50 ml and monitor I/O closely 10/03: -H/H as of 10/03: 9.6/30.5 -Pt appetite still decreased, continue IVF 50/hr (4) Gallbladder hydrops: Code(s): K82.1 - Hydrops of gallbladder Status: Acute Assessment and Plan: CT does not suggest overt acute cholecystitis but patient does have significant kit right upper quadrant pain on palpation and worsening of his nausea with palpation of right upper quadrant. -RUQ US for better visualization of the gallbladder: 1. Cholelithiasis with a normal-appearing gallbladder but with mild intra and extrahepatic biliary ductal dilation which raises concern for a nonvisualized distal obstructing choledocholithiasis. Correlate with liver function tests and if clinically indicated could consider further evaluation with either MRCP or ERCP. -->Consulted GI 10/03, pending recs/rounding -Bilirubin and transaminases are normal. -Patient does have some leukocytosis but no fever. -Will hold off on adding antibiotic coverage at this time and will repeat CBC in a.m.. (5) Type 2 diabetes mellitus with hyperglycemia, without long-term current use of insulin: Code(s): E11.65 - Type 2 diabetes mellitus with hyperglycemia Status: Acute Assessment and Plan: Hold Actos -Moderate dose sliding scale insulin with Accu-Cheks a.c. HS and hypoglycemia protocol. -Glucose has been stable during stay (6) Chronic pain: Qualifiers: Chronic pain type: chronic pain syndrome Qualified Code(s): G89.4 - Chronic pain syndrome Code(s): G89.29 - Other chronic pain Status: Acute Assessment and Plan: Will resume patient's home morphine 15 mg Q 8 hours p.r.n. pain 7-10. (7) Abdominal aortic aneurysm (AAA) 3.0 cm to 5.5 cm in diameter in male: Code(s): I71.40 - Abdominal aortic aneurysm, without rupture, unspecified Status: Acute Assessment and Plan: Likely chronic will defer follow-up to patient's primary care provider for serial imaging Plan Pending GI recs/rounding today for RUQ US results Subjective Date/time seen: 10/03/24 1124 Interval history: 88-year-old male with a past medical history of heart valve replacement, CHF, chronic kidney disease, BPH, type 2 diabetes mellitus and chronic pain who presented to the ER via EMS from home due to nausea, abdominal pain and chest pain for 3 days. The patient reports that he has been having initial symptoms of abdominal pain of his generalized for the last 3 days. In ED- BUN of 120 creatinine 3.86. He was hyperglycemic in the ER. Pt is seen and examined.He denies any chest pain, feels overall tired and somewhat nauseated. 10/02 - pt is seen and examined. He is very weak, unable to do much on his own. No abd pain, no nausea today. Cr elevated overnight- nephrology following. 10/03: Pt continues to report RUQ abd pain, nausea, and decreased appetite. pt denies CP. Pt is confused why he is still having pain, I updated him that his abd US showed that he may have a gallstone that may be trapped in his bile duct today and that may be why he is still in pain. Updated him on the plan for GI to come see him to discuss further steps, pt agreeable with the plan. Pt encouraged to keep trying to eat and drink fluids, continue IVF as of now. Review of Systems Review of Systems: 12 systems were reviewed with pertinent positives and negatives per HPI. Except as documented in the HPI, all other systems were reviewed and are negative. Exam Narrative: Weight 89.4 kg BMI 29.6 Const: General: comfortable Other: No acute distress, well-developed, obese, appears stated age HENMT: Other: Mucous membranes are tacky, upper and lower dentures in place Eyes: General: appearance normal, both eyes and all related structures Sclera: sclerae normal Neck: Other: Large neck circumference, no JVD, loss of cervical lordosis Resp: Effort & Inspection: normal respiratory effort Auscultation: clear to auscultation bilaterally Other: Clear to auscultation bilaterally, no increased work of breathing Cardio: Rate: regular rate Rhythm: regular rhythm Other: Regular rate, regular rhythm, no murmur, 2+ bilateral radial and pedal pulses GI: Inspection: non-distended Auscultation: normal bowel sounds Other: RUQ TTP Skin: General skin exam: normal color and No rashes Rashes: no rashes noted Neuro: Other: Alert oriented to person place and time, speech is clear, mild hearing loss, no localizing neurologic deficit noted during the course of conversation Extrem: General: normal to inspection Other: 5/5 precision lens polisher strength bilaterally, trace edema right lower extremity 1+ edema left lower extremity Psych: Affect: normal affect Other: Flat affect, cooperative, appropriate insight and judgment Objective Data Vital Signs Vital Signs: Vital Signs - 24 hr 10/02/24 12:00 10/02/24 12:20 10/02/24 13:30 Temperature 98.4 F Pulse Rate 60 Respiratory Rate 18 Blood Pressure 114/54 L Pulse Oximetry 95 Oxygen Delivery Room Air Room Air 10/02/24 16:00 10/02/24 20:00 10/02/24 20:00 Temperature 97.9 F 99.5 F Pulse Rate 72 79 Respiratory Rate 20 18 Blood Pressure 144/62 H 125/49 L Pulse Oximetry 97 97 Oxygen Delivery Room Air 10/03/24 00:00 10/03/24 04:00 10/03/24 06:12 Temperature 100.5 F H 98.7 F 98.1 F Pulse Rate 70 78 76 Respiratory Rate 18 18 18 Blood Pressure 131/47 L 100/67 148/59 H Pulse Oximetry 96 97 90 Oxygen Delivery Intake/Output Intake/Output: Intake & Output 09/30/24 10/01/24 10/02/24 10/03/24 23:59 23:59 23:59 23:59 Intake Total 4843.8 4708.8 1008.3 Output Total 200 1100 900 Balance -200 3743.8 3808.8 1008.3 Meds/Results Medications: Active Medications Generic Name Dose Route Start Last Admin Trade Name Freq PRN Reason Stop Dose Admin Acetaminophen 650 mg 09/30/24 19:02 10/02/24 09:21 Acetaminophen 325 Mg Tablet PO 650 mg Q4H PRN Administration Mild Pain (1-3) or Fever Clopidogrel Bisulfate 75 mg 10/01/24 09:00 10/03/24 08:41 Clopidogrel Bisulfate 75 Mg Tablet PO 75 mg DAILY VU Administration Dextrose 12.5 gm 09/30/24 20:29 Dextrose 50% 25 Gm/50 Ml Syringe IV PUSH PRN PRN Hypoglycemia Protocol Docusate Sodium 100 mg 10/01/24 09:00 10/03/24 08:41 Docusate Sodium 100 Mg Capsule PO 100 mg DAILY UV Administration Ezetimibe 10 mg 10/01/24 09:00 10/03/24 08:41 Ezetimibe 10 Mg Tablet PO 10 mg DAILY VU Administration Famotidine 20 mg 09/30/24 21:00 10/03/24 08:41 Famotidine 20 Mg Tablet PO 20 mg Q12HR VU Administration Finasteride 5 mg 10/01/24 09:00 10/03/24 08:41 Finasteride 5 Mg Tablet PO 5 mg DAILY VU Administration Fluticasone Propionate 2 spray 09/30/24 20:28 Fluticasone Propionate 0.05% Na Spr 16 Gm Btl (*Bkc) NASAL DAILY PRN allergy symptoms Glucagon 1 mg 09/30/24 20:29 Glucagon For Inj 1 Mg Vial IM PRN PRN Hypoglycemia Protocol Glucose 15 gm 09/30/24 20:29 Glucose Oral Gel 15 Gm Of Glucse In 37.5 Gm Tube PO PRN PRN Hypoglycemia Protocol Heparin Sodium (Porcine) 5,000 units 09/30/24 21:00 10/03/24 08:42 Heparin Sodium 5,000 Units/Ml Vial SUB-Q 5,000 units Q12HR VU Administration Sodium Chloride 1,000 mls @ 50 mls/hr 09/30/24 19:05 10/03/24 06:50 Normal Saline Iv IV CONT 50 mls/hr .Q20H VU Administration Dextrose 1,000 mls @ 100 mls/hr 09/30/24 20:29 Dextrose 5% 1,000 Ml IVPB PRN PRN Hypoglycemia Protocol Insulin Aspart 1 - 3 units 09/30/24 21:00 10/02/24 20:58 Insulin Aspart (*Bkc) 100 Units/Ml SUB-Q Not Given HS VU Protocol Insulin Aspart 3 - 6 units 10/01/24 08:00 10/03/24 08:36 Insulin Aspart (*Bkc) 100 Units/Ml SUB-Q Not Given TIDWM VU Protocol Morphine Sulfate 15 mg 09/30/24 20:28 10/03/24 08:41 Morphine Sulfate (*Crx) 15 Mg Tab Ir PO 15 mg Q8H PRN Administration pain 7-10 Ondansetron HCl 4 mg 09/30/24 19:02 10/02/24 18:18 Ondansetron Inj 4 Mg/2 Ml Vial IV PUSH 4 mg Q4H PRN Administration Nausea Pantoprazole Sodium 40 mg 10/01/24 09:00 10/03/24 08:42 Pantoprazole Sodium Iv 40 Mg Vial IV PUSH 40 mg Q12HR VU Administration Polyethylene Glycol 17 gm 10/01/24 21:11 Polyethylene Glycol 3350 17 Gm Powd.Pack PO DAILY PRN Constipation Verapamil HCl 120 mg 09/30/24 21:00 10/03/24 08:41 Verapamil Hcl 120 Mg Tablet Immed Release PO 120 mg Q12HR VU Administration Radiology Results: ITS Impressions Abdomen/Pelvis CT 09/30/24 19:00 IMPRESSION: Gallbladder hydrops without inflammatory change. Dilated common bile duct, measuring 14 mm. No obstructing stone or mass detected. Correlate with biliary labs. 3.4 cm fusiform infrarenal abdominal aortic aneurysm. Consider follow-up in 3 years. Upper Quadrant Ultrasound 10/01/24 08:43 IMPRESSION: 1. Cholelithiasis with a normal-appearing gallbladder but with mild intra and extrahepatic biliary ductal dilation which raises concern for a nonvisualized distal obstructing choledocholithiasis. Correlate with liver function tests and if clinically indicated could consider further evaluation with either MRCP or ERCP. Chest X-Ray 10/02/24 15:24 IMPRESSION: 1: NO ACUTE CARDIOPULMONARY DISEASE. Labs Labs: Laboratory Results - last 24 hr 10/02/24 10/02/24 10/02/24 11:39 16:56 20:26 WBC RBC Hgb Hct MCV MCH MCHC RDW Plt Count MPV Sodium Potassium Chloride Carbon Dioxide Anion Gap BUN Creatinine Estim Creat Clear Calc Estimated GFR Glucose POC Capillary Glucose 183 H 139 H 184 H Calcium Phosphorus Albumin 10/03/24 10/03/24 04:59 08:05 WBC 12.2 H RBC 3.21 L Hgb 9.6 L Hct 30.5 L MCV 95.0 MCH 29.9 MCHC 31.5 L RDW 14.0 Plt Count 132 L MPV 10.3 Sodium 131 L Potassium 3.5 Chloride 98 Carbon Dioxide 22 Anion Gap 11 BUN 91 H Creatinine 3.26 H Estim Creat Clear Calc 17 Estimated GFR 18 L Glucose 145 H POC Capillary Glucose 133 H Calcium 8.2 L Phosphorus 2.7 Albumin 3.2 L Quality VTE Prophylaxis VTE prophylaxis: pharmacologic ordered (Heparin 5000 units subQ q.12 hours.)
--- NOTE | 2024-10-03 10:45 | PCPTNOTE ---
Patient refused treatment at this time stating he has pain and does not feel well. Patient states he can not do therapy at this time. PT will continue to follow.
--- NOTE | 2024-10-03 13:17 | P.PNNP_ITS ---
Progress Note: A&P Assessment and Plan (1) Acute kidney injury: Code(s): N17.9 - Acute kidney failure, unspecified Status: Acute Assessment and Plan: * slow improvement noted * as noted on admission * complicated by significant azotemia/elevated BUN * mild improvement in creatinine but BUN still elevated by repeat labs * agree with holding diuretics and trial of IVFs * follow respiratory status closely given hx of CHF * evaluation to date noted: * admission CT of A/P with no suspicious mass, obstructing stone, or hydronephrosis * prerenal urine electrolytes (by FeUrea) * urine eosinophils negative * mild proteinuria * normal/low CPK * UA without evidence of infection * suspect multifactorial etiology: * prerenal factors * overdiuresis(?) * possible infection (secondary to gallbladder issues?) * other(?) * follow trend of repeat labs and UOP (2) Stage 4 chronic kidney disease: Code(s): N18.4 - Chronic kidney disease, stage 4 (severe) Status: Chronic Assessment and Plan: * slow and progressive decline noted * GFR ~ 22 to 23 in 2020/2021 * GFR ~ 20 to 21 in 2022/2023 * GFR ~ 18 by July 2024 labs * creatinine has been running anywhere from 2.4 - 3.2mg/dl in the last 6 months * creatinine on 09/27/24 (outpatient labs) = 3.93mg/dl (GFR 15) * most likely due to diabetes and hypertension + chronic diuretic therapy (3) Azotemia: Code(s): R79.89 - Other specified abnormal findings of blood chemistry Status: Acute Assessment and Plan: * slow improvement noted * noted on admission * suspected related to diuretic therapy * no evidence of GI bleed * no other culprit medications * follow trend of BUN (4) Gallbladder hydrops: Code(s): K82.1 - Hydrops of gallbladder Status: Acute Assessment and Plan: * CT of A/P without overt acute cholecystitis * however, does have significant right upper quadrant pain on palpation with nausea and decreased oral intake * RUQ ultrasound results noted as well * LFTs normal * GI consultation * continue supportive therapy (5) Hypertension: Code(s): I10 - Essential (primary) hypertension Status: Chronic Assessment and Plan: * reasonable control * follow trend of hemodynamics (6) Type 2 diabetes mellitus with hyperglycemia, without long-term current use of insulin: Code(s): E11.65 - Type 2 diabetes mellitus with hyperglycemia Status: Chronic Assessment and Plan: * follow accu-cheks * glycemic control per hospitalist Will continue to follow. L Subjective Date/time seen: 10/03/24 13:17 Interval history: Follow-up for acute kidney injury/acute renal failure on chronic kidney disease. Renal function/creatinine as well as BUN continue to slowly improve with gentle IVF hydration and holding diuretic therapy; continue to endorse significant RUQ pain along with nausea and diminished oral intake -- GI consulted for further evaluation; no other issues/events overnight or earlier this morning. Exam 2 Narrative: General: elderly but WD/WN male in NAD Heart: normal S1 and S2; no rub Lungs: clear anteriolry Abdomen: soft, +TTP in RUQ; nondistended, positive bowel sounds Extremities: no cyanosis or clubbing; trace - 1+ edema Skin: warm and intact Objective Data Vital Signs Vital Signs: Vital Signs Temp Pulse Resp BP Pulse Ox O2 Del Method 10/03/24 12:00 97.8 F 70 18 136/58 L 92 10/03/24 08:40 Room Air 10/03/24 08:00 98 F 74 18 138/60 92 10/03/24 06:12 98.1 F 76 18 148/59 H 90 10/03/24 04:00 98.7 F 78 18 100/67 97 10/03/24 00:00 100.5 F H 70 18 131/47 L 96 10/02/24 20:00 Room Air 10/02/24 20:00 99.5 F 79 18 125/49 L 97 Intake/Output Intake/Output: Intake & Output 09/30/24 10/01/24 10/02/24 10/03/24 23:59 23:59 23:59 23:59 Intake Total 4843.8 4708.8 1470.3 Output Total 200 1100 900 Balance -200 3743.8 3808.8 1470.3 Meds/Results Medications: Active Medications Generic Name Dose Route Start Last Admin Trade Name Freq PRN Reason Stop Dose Admin Acetaminophen 650 mg 09/30/24 19:02 10/02/24 09:21 Acetaminophen 325 Mg Tablet PO 650 mg Q4H PRN Administration Mild Pain (1-3) or Fever Albuterol 2 puff 10/03/24 15:40 10/03/24 15:58 Albuterol Sulfate (*Sp) Aerosol 1 Puff INHALATION 2 puff Q6HRT PRN Administration Shortness Of Breath Or Wheezing Clopidogrel Bisulfate 75 mg 10/01/24 09:00 10/03/24 08:41 Clopidogrel Bisulfate 75 Mg Tablet PO 75 mg DAILY VU Administration Dextrose 12.5 gm 09/30/24 20:29 Dextrose 50% 25 Gm/50 Ml Syringe IV PUSH PRN PRN Hypoglycemia Protocol Docusate Sodium 100 mg 10/01/24 09:00 10/03/24 08:41 Docusate Sodium 100 Mg Capsule PO 100 mg DAILY VU Administration Ezetimibe 10 mg 10/01/24 09:00 10/03/24 08:41 Ezetimibe 10 Mg Tablet PO 10 mg DAILY VU Administration Famotidine 20 mg 09/30/24 21:00 10/03/24 08:41 Famotidine 20 Mg Tablet PO 20 mg Q12HR VU Administration Finasteride 5 mg 10/01/24 09:00 10/03/24 08:41 Finasteride 5 Mg Tablet PO 5 mg DAILY VU Administration Fluticasone Propionate 2 spray 09/30/24 20:28 Fluticasone Propionate 0.05% Na Spr 16 Gm Btl (*Bkc) NASAL DAILY PRN allergy symptoms Glucagon 1 mg 09/30/24 20:29 Glucagon For Inj 1 Mg Vial IM PRN PRN Hypoglycemia Protocol Glucose 15 gm 09/30/24 20:29 Glucose Oral Gel 15 Gm Of Glucse In 37.5 Gm Tube PO PRN PRN Hypoglycemia Protocol Heparin Sodium (Porcine) 5,000 units 09/30/24 21:00 10/03/24 08:42 Heparin Sodium 5,000 Units/Ml Vial SUB-Q 5,000 units Q12HR VU Administration Sodium Chloride 1,000 mls @ 50 mls/hr 09/30/24 19:05 10/03/24 06:50 Normal Saline Iv IV CONT 50 mls/hr .Q20H VU Administration Dextrose 1,000 mls @ 100 mls/hr 09/30/24 20:29 Dextrose 5% 1,000 Ml IVPB PRN PRN Hypoglycemia Protocol Insulin Aspart 1 - 3 units 09/30/24 21:00 10/02/24 20:58 Insulin Aspart (*Bkc) 100 Units/Ml SUB-Q Not Given HS [facility] Protocol Insulin Aspart 3 - 6 units 10/01/24 08:00 10/03/24 17:20 Insulin Aspart (*Bkc) 100 Units/Ml SUB-Q Not Given TIDWM [facility] Protocol Morphine Sulfate 15 mg 09/30/24 20:28 10/03/24 08:41 Morphine Sulfate (*Crx) 15 Mg Tab Ir PO 15 mg Q8H PRN Administration pain 7-10 Ondansetron HCl 4 mg 09/30/24 19:02 10/02/24 18:18 Ondansetron Inj 4 Mg/2 Ml Vial IV PUSH 4 mg Q4H PRN Administration Nausea Pantoprazole Sodium 40 mg 10/01/24 09:00 10/03/24 08:42 Pantoprazole Sodium Iv 40 Mg Vial IV PUSH 40 mg Q12HR VU Administration Polyethylene Glycol 17 gm 10/01/24 21:11 Polyethylene Glycol 3350 17 Gm Powd.Pack PO DAILY PRN Constipation Verapamil HCl 120 mg 09/30/24 21:00 10/03/24 08:41 Verapamil Hcl 120 Mg Tablet Immed Release PO 120 mg Q12HR VU Administration Radiology Results: ITS Impressions Abdomen/Pelvis CT 09/30/24 19:00 IMPRESSION: Gallbladder hydrops without inflammatory change. Dilated common bile duct, measuring 14 mm. No obstructing stone or mass detected. Correlate with biliary labs. 3.4 cm fusiform infrarenal abdominal aortic aneurysm. Consider follow-up in 3 years. Upper Quadrant Ultrasound 10/01/24 08:43 IMPRESSION: 1. Cholelithiasis with a normal-appearing gallbladder but with mild intra and extrahepatic biliary ductal dilation which raises concern for a nonvisualized distal obstructing choledocholithiasis. Correlate with liver function tests and if clinically indicated could consider further evaluation with either MRCP or ERCP. Chest X-Ray 10/02/24 15:24 IMPRESSION: 1: NO ACUTE CARDIOPULMONARY DISEASE. Labs Labs: Laboratory Tests 10/03/24 04:59 10/03/24 04:59 Calcium 8.2 L Phosphorus 2.7 Albumin 3.2 L
[2024-10-03] MEDS: ALBUTEROL SULFATE (*SP) AEROSOL 1 PUFF 2 PUFF INHALATION (15:58)
--- NOTE | 2024-10-03 16:08 | P.CONGI_ITS ---
Assessment and Plan Assessment and plan (1) Cholelithiasis: Code(s): K80.20 - Calculus of gallbladder without cholecystitis without obstruction Status: Acute Assessment and Plan: The patient's presentation of dry heaves and non-cardiac chest pain, evolving into right upper quadrant pain, is highly suggestive of biliary colic. While initial imaging, including CT and ultrasound, revealed a dilated common bile duct, no definitive stones were identified. An MRCP would typically be the next diagnostic step, but it is unfortunately contraindicated due to his pacemaker. Given these circumstances, I propose a surgical evaluation to consider laparoscopic cholecystectomy with intraoperative cholangiogram . If the IOC confirm the presence of a choledocholithiasis, I will then proceed with ERCP and stone extraction. GI Consult Note Consult date/time: 10/03/24 16:08 Reason for consult: Cholelithiasis HPI: Angel Zuniga, an 88-year-old male with a history of pacemaker placement, aortic valve replacement, Stage 4 chronic kidney disease, and a remote right hemicolectomy for an advanced polyp, was admitted on September 30, 2024. His chief complaint was moderate, intermittent chest pain for two days, consistently associated with nausea and retching. During his hospitalization, he experienced a brief episode of right upper quadrant pain, lasting only a few minutes, accompanied by persistent dry heaves. A subsequent right upper quadrant sonogram identified cholelithiasis with mild intra- and extrahepatic biliary dilation, though definitive choledocholithiasis was not confirmed. Relevant laboratory data today include: sodium 131, potassium 3.5, creatinine 3.26, white count 12.2, hemoglobin 9.6, and platelets 132. On September 30, 2024, his AST was 33, ALT 23, albumin 3.2, and bilirubin 0.8. Over the past 24 hours, the patient has reported new onset shortness of breath and some wheezing. There have been no further abdominal pain episodes since the transient event. 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 URI (upper respiratory infection) Preoperative clearance History of colon polyps Dupuytren's contracture of right hand Pre-operative clearance Trigger finger, right middle finger Aortic stenosis Iron deficiency anemia Low back pain radiating to left leg Type II diabetes mellitus with renal manifestations Essential hypertension, benign Mixed hyperlipidemia Bilateral inguinal hernia Small fat containing bilateral inguinal hernias noted on CT 09/30/2024 Hepatic steatosis Chronic pain GERD (gastroesophageal reflux disease) Dyslipidemia BPH (benign prostatic hyperplasia) Type 2 diabetes mellitus Hypertension Hyperlipidemia Chronic kidney disease Heart failure 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 moderate mitral valve regurgitation Surgical History Surgical History (Updated 10/01/24 @ 08:17 by Trey Mas) History of repair of right rotator cuff (~07/05/14) Subacromial Decompression; Limited Debridement Status post cataract extraction of both eyes with insertion of intraocular lens 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 He has 3 children. He is a retired [employer]. He he is a lifelong nonsmoker and does not drink alcohol or use illicit substances. He ambulates with a walker. Code status: Full code (he states he would not want long-term intubation or feeding tube) Surrogate decision maker: Nallely () Smoking status: Never smoker Second hand tobacco smoke exposure: No Alcohol intake: never Substance use: never Do You Feel Safe in your Home?: Yes Lack of Transportation: YES Lack of Food: Never True Current Housing: I Have Housing Concerned About Future Housing: No Difficulty Paying Gas/Electric Bills: No Difficulty Paying for Meds: No Currently Unemployed: No Education: High School Diploma/GED Difficulty w/ Childcare or Family Care: No Living arrangements: with family Gender identity (if verbalized by the patient): Male Spiritual care concerns: No Meds Home Medications and Allergies Home Medications ?Medication ?Instructions ?Recorded ?Confirmed ?Type clopidogrel 75 mg tablet 75 mg PO DAILY 07/25/23 08/13/24 History fluticasone propionate 50 See Rx Instructions .Route 02/27/24 08/13/24 Rx mcg/actuation nasal .COMPLEX #48 mL spray,suspension cetirizine 5 mg tablet (Allergy 5 mg PO DAILY #30 tabs 05/08/24 08/13/24 Rx Relief (cetirizine)) ezetimibe 10 mg tablet See Rx Instructions .Route 05/09/24 08/13/24 Rx .COMPLEX #90 tabs famotidine 20 mg tablet See Rx Instructions .Route 05/09/24 08/13/24 Rx .COMPLEX #180 tabs finasteride 5 mg tablet See Rx Instructions .Route 05/09/24 08/13/24 Rx .COMPLEX #90 tabs pioglitazone 15 mg tablet See Rx Instructions .Route 05/09/24 08/13/24 Rx .COMPLEX #90 tabs verapamil 80 mg tablet See Rx Instructions .Route 06/11/24 08/13/24 Rx .COMPLEX #60 tabs metolazone 5 mg tablet 5 mg PO .COMPLEX #20 tabs 07/26/24 08/13/24 Rx furosemide 40 mg tablet See Rx Instructions .Route 08/02/24 08/13/24 Rx .COMPLEX #180 tabs doxazosin 4 mg tablet (Cardura) 4 mg PO QHS #30 tabs 08/08/24 08/08/24 Rx morphine 15 mg immediate release 15 mg PO Q8H PRN pain #80 tabs 09/28/24 Rx tablet clopidogrel 75 mg tablet (Plavix) 75 mg PO DAILY 09/30/24 09/30/24 History docusate sodium 100 mg capsule 100 mg PO DAILY 09/30/24 09/30/24 History (Colace) ezetimibe 10 mg tablet (Zetia) 10 mg PO DAILY 09/30/24 09/30/24 History famotidine 20 mg tablet (Acid 20 mg PO BID 09/30/24 09/30/24 History Controller) finasteride 5 mg tablet 5 mg PO DAILY 09/30/24 09/30/24 History fluticasone propionate 50 2 spray intranasal DAILY PRN 09/30/24 09/30/24 History mcg/actuation nasal allergy symptoms spray,suspension (Flonase Allergy Relief) furosemide 80 mg tablet 80 mg PO DAILY 09/30/24 09/30/24 History metolazone 5 mg tablet 5 mg PO DAILY 09/30/24 09/30/24 History morphine 15 mg immediate release 15 mg PO Q8H PRN pain 09/30/24 09/30/24 History tablet pioglitazone 15 mg tablet (Actos) 15 mg PO DAILY 09/30/24 09/30/24 History verapamil 120 mg tablet 120 mg PO DAILY 09/30/24 09/30/24 History Allergies Allergy/AdvReac Type Severity Reaction Status Date / Time atorvastatin Allergy Unknown myalgia Verified 10/01/24 08:17 rosuvastatin Allergy Unknown myalgia Verified 10/01/24 08:17 Vital Signs Vital Signs - 24 hr 10/02/24 20:00 10/02/24 20:00 10/03/24 00:00 Temperature 99.5 F 100.5 F H Pulse Rate 79 70 Respiratory Rate 18 18 Blood Pressure 125/49 L 131/47 L Pulse Oximetry 97 96 Oxygen Delivery Room Air 10/03/24 04:00 10/03/24 06:12 10/03/24 08:00 Temperature 98.7 F 98.1 F 98 F Pulse Rate 78 76 74 Respiratory Rate 18 18 18 Blood Pressure 100/67 148/59 H 138/60 Pulse Oximetry 97 90 92 Oxygen Delivery 10/03/24 08:40 10/03/24 12:00 Temperature 97.8 F Pulse Rate 70 Respiratory Rate 18 Blood Pressure 136/58 L Pulse Oximetry 92 Oxygen Delivery Room Air Exam 2 Narrative: Alert oriented x3. Moderate shortness of breath. Lungs: Prolonged expiration, presence of bilateral crackles up to 1/3 of each lung field. Abdomen: Soft, nontender, nondistended, obese, no Burroughs sign. Rest of the exam within no Results Labs 10/03/24 04:59 10/03/24 04:59 Labs: Short CBC 10/03/24 Range/Units 04:59 WBC 12.2 H (4.5-10.0) K/mm3 Hgb 9.6 L (14.0-18.0) g/dL Hct 30.5 L (42.0-52.0) % Plt Count 132 L (150-375) k/mm3 BMP 10/03/24 04:59 Sodium 131 L Potassium 3.5 Chloride 98 Carbon Dioxide 22 BUN 91 H Creatinine 3.26 H Glucose 145 H Calcium 8.2 L Liver Function 10/03/24 Range/Units 04:59 Albumin 3.2 L (3.5-5.1) g/dL
[2024-10-03] MEDS: FLUTICASONE PROPIONATE 0.05% NA SPR 16 GM BTL (*BKC) 2 SPRAY NASAL (20:55)
[2024-10-04] VITALS: BP 171/56; PULSE 81; RESP 18; TEMP 36.8; O2SAT 98
[2024-10-04 04:00] VITALS: BP 160/71; PULSE 72; RESP 18; TEMP 38; O2SAT 95
[2024-10-04 05:55] LABS: Hematocrit 30.5 % (42.0-52.0); Hemoglobin 9.8 g/dL (14.0-18.0); Mean Corpuscular HGB Conc 32.1 g/dl (32-36); Mean Corpuscular Hemoglobin 29.8 pg (26-34); Mean Corpuscular Volume 92.7 fl (80-100); Platelet Count Result 131 k/mm3 (150-375); Red Blood Count 3.29 M/mm3 (4.6-6.20); White Blood Count 11.0 K/mm3 (4.5-10.0)
[2024-10-04 06:09] LABS: Albumin Level 3.1 g/dL (3.5-5.1); Anion Gap 10 mmol/L (4-12); Blood Urea Nitrogen 90 mg/dL (9-20); Calcium 8.3 mg/dL (8.4-10.2); Carbon Dioxide 21 mmol/L (22-30); Chloride 100 mmol/L (98-107); Estimated CRCL calculation 17 ml/min; Estimated Glomerular Filt Rate 17; Glucose 160 mg/dL (65-110); Potassium 3.6 mmol/L (3.4-5.0); Sodium 131 mmol/L (137-145)
[2024-10-04 08:14] VITALS: BP 152/64; PULSE 77; TEMP 37.6; O2SAT 95
[2024-10-04] MEDS: FINASTERIDE 5 MG TABLET PO (08:22)
[2024-10-04] MEDS: CLOPIDOGREL BISULFATE 75 MG TABLET PO (08:22)
[2024-10-04] MEDS: EZETIMIBE 10 MG TABLET PO (08:22)
[2024-10-04] MEDS: DOCUSATE SODIUM 100 MG CAPSULE PO (08:22)
[2024-10-04] MEDS: VERAPAMIL HCL 120 MG TABLET IMMED RELEASE PO ×2 (08:22→20:06)
[2024-10-04] MEDS: FAMOTIDINE 20 MG TABLET PO ×2 (08:23→20:06)
[2024-10-04] MEDS: PANTOPRAZOLE SODIUM IV 40 MG VIAL IV PUSH ×2 (08:30→20:06)
[2024-10-04] MEDS: ALBUTEROL SULFATE (*SP) AEROSOL 1 PUFF 2 PUFF INHALATION (09:06)
--- NOTE | 2024-10-04 09:45 | P.PNIM_ITS ---
Progress Note: A&P Assessment and Plan (1) Chest pain: Qualifiers: Chest pain type: unspecified Qualified Code(s): R07.9 - Chest pain, unspecified Code(s): R07.9 - Chest pain, unspecified Status: Acute Assessment and Plan: -Chest pain seems atypical in nature, pt continue to deny CP. -Troponin are elevated but flat. Will complete troponin series. -Pain seems more consistent with GI cause with reported indigestion and significant right upper quadrant pain. -Will continue Antihypertensives and Plavix. -->HOLD Plavix starting 10/05 for eventual lap torrie per surg (2) Acute kidney injury superimposed on CKD: Code(s): N17.9 - Acute kidney failure, unspecified; N18.9 - Chronic kidney disease, unspecified Status: Acute Assessment and Plan: Patient has chronic kidney disease stage 4 with acute kidney injury. Most likely prerenal due to intervascular volume depletion. - Hold Lasix and continue IV fluid hydration. - Nephrology was consulted from the ER. - Continue flomax 10/02- cr/bun 2.96/100 10/03: Cr/BUN: 3.26/91, pending neph rounds due to worsening Cr 10/04: Cr/BUN: 3.43/90, Started IVF again today, continue to hold lasix (3) Acute uremia: Code(s): N19 - Unspecified kidney failure Status: Acute Assessment and Plan: Possibly due to hypovolemia. GI bleed is less likely given patient's hemoglobin is stable at 12 in ED and patient denies symptoms of hematemesis hematochezia or melena. Pt continues to deny any blood loss. -Will hold Lasix and continue IV fluid hydration and repeat CBC and electrolyte panel in a.m. -Decrease IV fluids to 50 ml and monitor I/O closely 10/03: -H/H as of 10/03: 9.6/30.5 -Pt appetite still decreased, continue IVF 50/hr 10/04: -H/H 9.8/30.5 -Started again on IVF to try to normalize creat, pt will be NPO at [facility] anyway for procedure tomorrow. (4) Gallbladder hydrops: Code(s): K82.1 - Hydrops of gallbladder Status: Acute Assessment and Plan: CT does not suggest overt acute cholecystitis but patient does have significant kit right upper quadrant pain on palpation and worsening of his nausea with palpation of right upper quadrant. -RUQ US for better visualization of the gallbladder: 1. Cholelithiasis with a normal-appearing gallbladder but with mild intra and e xtrahepatic biliary ductal dilation which raises concern for a nonvisualized distal obstructing choledocholithiasis. Correlate with liver function tests and if clinically indicated could consider further evaluation with either MRCP or ERCP. -->Consulted GI 10/03, pending recs/rounding -Bilirubin and transaminases are normal. -Patient does have some leukocytosis but no fever. -Will hold off on adding antibiotic coverage at this time and will repeat CBC in a.m. 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 His symptoms are likely related to his gallbadder and there is concern for choledocholithiasis given his common bile duct dilatation on imaging. Since his Plavix has been continued, he would not be a candidate for a laparoscopic cholecystectomy at this time. He received his last dose of Plavix this morning, which I have put on hold. Since he continues to have symptoms, we would recommend proceeding with percutaneous cholecystostomy tube placement to treat his cholecystitis. We will eventually consider proceeding with a laparoscopic cholecystectomy with intraoperative cholangiogram to evaluate for choledocholithiasis, but this will be at a later date, possibly as an outpatient depending on how he is progressing medically, when his Plavix can be held for an adequate amount of time. This would also allow time for improved medical optimization in regards to his renal failure and pulmonary edema. Will repeat labs tomorrow and include a CMP to re-evaluate his liver enzymes. Although his WBC count has been trending down, I will also start him on broad-spectrum IV antibiotics to cover for cholecystitis/cholangitis given his persistent pain/fever/leukocytosis. Plavix has been continued since his admission. He received a dose this morning. Will hold his Plavix now, which ideally is held for 5 days prior to a cholecystectomy. -->Plan for torrie tube placement tomorrow (5) Type 2 diabetes mellitus with hyperglycemia, without long-term current use of insulin: Code(s): E11.65 - Type 2 diabetes mellitus with hyperglycemia Status: Acute Assessment and Plan: Hold Actos -Moderate dose sliding scale insulin with Accu-Cheks a.c. HS and hypoglycemia protocol. -Glucose has been stable during stay (6) Chronic pain: Qualifiers: Chronic pain type: chronic pain syndrome Qualified Code(s): G89.4 - Chronic pain syndrome Code(s): G89.29 - Other chronic pain Status: Acute Assessment and Plan: Will resume patient's home morphine 15 mg Q 8 hours p.r.n. pain 7-10. (7) Abdominal aortic aneurysm (AAA) 3.0 cm to 5.5 cm in diameter in male: Code(s): I71.40 - Abdominal aortic aneurysm, without rupture, unspecified Status: Acute Assessment and Plan: Likely chronic will defer follow-up to patient's primary care provider for serial imaging (8) Antiplatelet or antithrombotic long-term use: Code(s): Z79.02 - terminal clerk (current) use of antithrombotics/antiplatelets Status: Acute Assessment and Plan: Pt with hx of pacemaker and plavix long-term use. Per surg: Plavix has been continued since his admission. He received a dose this morning. Will hold his Plavix now, which ideally is held for 5 days prior to a cholecystectomy. Plan Torrie tube placement tomorrow, continue to monitor pt with labs, VS, and pain control. Surg order for NPO at [place] and pausing Plavix starting 10/05 Subjective Date/time seen: 10/04/24 0910 Interval history: 88-year-old male with a past medical history of heart valve replacement, CHF, chronic kidney disease, BPH, type 2 diabetes mellitus and chronic pain who presented to the ER via EMS from home due to nausea, abdominal pain and chest pain for 3 days. The patient reports that he has been having initial symptoms of abdominal pain of his generalized for the last 3 days. In ED- BUN of 120 creatinine 3.86. He was hyperglycemic in the ER. Pt is seen and examined.He denies any chest pain, feels overall tired and somewhat nauseated. 10/02 - pt is seen and examined. He is very weak, unable to do much on his own. No abd pain, no nausea today. Cr elevated overnight- nephrology following. 10/03: Pt continues to report RUQ abd pain, nausea, and decreased appetite. pt denies CP. Pt is confused why he is still having pain, I updated him that his abd US showed that he may have a gallstone that may be trapped in his bile duct today and that may be why he is still in pain. Updated him on the plan for GI to come see him to discuss further steps, pt agreeable with the plan. Pt encouraged to keep trying to eat and drink fluids, continue IVF as of now. 10/04: Pt reports that his RUQ pain today is mildly worse, but denies any nausea and he states I have not had any of that for some time now. Updated him on the plan from GI for surgery to consult due to the need of a lap torrie to visualize the probable stone due to not being able to obtain an MRCP because he has a pacemaker. Upon exam today, pt drowsy, but awakens to verbal stimuli. I spoke to on the phone and she states that his drowsiness state is baseline. 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 Reiterated plan for surgery to consult on plan which they recommended proceeding with percutaneous cholecystostomy tube placement to treat his cholecystitis due to being on his Plavix. Review of Systems Review of Systems: 12 systems were reviewed with pertinent positives and negatives per HPI. Except as documented in the HPI, all other systems were reviewed and are negative. Exam Const: General: comfortable Other: No acute distress, well-developed, obese, appears stated age HENMT: Other: Mucous membranes are tacky, upper and lower dentures in place Eyes: General: appearance normal, both eyes and all related structures Sclera: sclerae normal Other: Bilateral lens replacements noted - R 4mm, L 3mm pupils, no conjunctival pallor, no scleral icterus Neck: Other: Large neck circumference, no JVD, loss of cervical lordosis Resp: Effort & Inspection: normal respiratory effort Auscultation: clear to auscultation bilaterally Other: Clear to auscultation bilaterally, no increased work of breathing Cardio: Rate: regular rate Rhythm: regular rhythm Other: Regular rate, regular rhythm, no murmur, 2+ bilateral radial and pedal pulses GI: Inspection: non-distended Auscultation: normal bowel sounds Other: RUQ TTP Skin: General skin exam: normal color and No rashes Rashes: no rashes noted Neuro: Other: Alert oriented to person place and time, speech is clear, mild hearing loss, no localizing neurologic deficit noted during the course of conversation. Drowsy but awakens to verbal stimuli. 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, trace lisa ma right lower extremity 1+ edema left lower extremity Psych: Affect: normal affect Other: Flat affect, cooperative, appropriate insight and judgment Objective Data Vital Signs Vital Signs: Vital Signs - 24 hr 10/03/24 12:00 10/03/24 16:00 10/03/24 20:00 Temperature 97.8 F 97.7 F 98.2 F Pulse Rate 70 74 64 Respiratory Rate 18 18 18 Blood Pressure 136/58 L 149/53 H 128/52 L Pulse Oximetry 92 95 94 Oxygen Delivery Fraction of Inspired Oxygen 10/03/24 20:00 10/03/24 20:08 10/04/24 00:00 Temperature 98.2 F Pulse Rate 61 81 Respiratory Rate 20 18 Blood Pressure 171/56 H Pulse Oximetry 90 98 Oxygen Delivery Room Air Room Air Fraction of Inspired Oxygen 21 10/04/24 04:00 10/04/24 08:14 Temperature 100.4 F H 99.7 F H Pulse Rate 72 77 Respiratory Rate 18 Blood Pressure 160/71 H 152/64 H Pulse Oximetry 95 95 Oxygen Delivery Fraction of Inspired Oxygen Intake/Output Intake/Output: Intake & Output 10/01/24 10/02/24 10/03/24 10/04/24 23:59 23:59 23:59 23:59 Intake Total 4843.8 4708.8 2320.3 Output Total 1100 900 250 Balance 3743.8 3808.8 2320.3 -250 Meds/Results Medications: Active Medications Generic Name Dose Route Start Last Admin Trade Name Freq PRN Reason Stop Dose Admin Acetaminophen 650 mg 09/30/24 19:02 10/02/24 09:21 Acetaminophen 325 Mg Tablet PO 650 mg Q4H PRN Administration Mild Pain (1-3) or Fever Albuterol 2 puff 10/03/24 15:40 10/04/24 09:06 Albuterol Sulfate (*Sp) Aerosol 1 Puff INHALATION 2 puff Q6HRT PRN Administration Shortness Of Breath Or Wheezing Clopidogrel Bisulfate 75 mg 10/01/24 09:00 10/04/24 08:22 Clopidogrel Bisulfate 75 Mg Tablet PO 75 mg DAILY VU Administration Dextrose 12.5 gm 09/30/24 20:29 Dextrose 50% 25 Gm/50 Ml Syringe IV PUSH PRN PRN Hypoglycemia Protocol Docusate Sodium 100 mg 10/01/24 09:00 10/04/24 08:22 Docusate Sodium 100 Mg Capsule PO 100 mg DAILY VU Administration Ezetimibe 10 mg 10/01/24 09:00 10/04/24 08:22 Ezetimibe 10 Mg Tablet PO 10 mg DAILY VU Administration Famotidine 20 mg 09/30/24 21:00 10/04/24 08:23 Famotidine 20 Mg Tablet PO 20 mg Q12HR VU Administration Finasteride 5 mg 10/01/24 09:00 10/04/24 08:22 Finasteride 5 Mg Tablet PO 5 mg DAILY VU Administration Fluticasone Propionate 2 spray 09/30/24 20:28 10/03/24 20:55 Fluticasone Propionate 0.05% Na Spr 16 Gm Btl (*Bkc) NASAL 2 spray DAILY PRN Administration allergy symptoms Glucagon 1 mg 09/30/24 20:29 Glucagon For Inj 1 Mg Vial IM PRN PRN Hypoglycemia Protocol Glucose 15 gm 09/30/24 20:29 Glucose Oral Gel 15 Gm Of Glucse In 37.5 Gm Tube PO PRN PRN Hypoglycemia Protocol Heparin Sodium (Porcine) 5,000 units 09/30/24 21:00 10/04/24 08:30 Heparin Sodium 5,000 Units/Ml Vial SUB-Q 5,000 units Q12HR VU Administration Dextrose 1,000 mls @ 100 mls/hr 09/30/24 20:29 Dextrose 5% 1,000 Ml IVPB PRN PRN Hypoglycemia Protocol Insulin Aspart 1 - 3 units 09/30/24 21:00 10/03/24 20:23 Insulin Aspart (*Bkc) 100 Units/Ml SUB-Q Not Given HS VU Protocol Insulin Aspart 3 - 6 units 10/01/24 08:00 10/04/24 08:21 Insulin Aspart (*Bkc) 100 Units/Ml SUB-Q Not Given [facility] Protocol Morphine Sulfate 15 mg 09/30/24 20:28 10/03/24 08:41 Morphine Sulfate (*Crx) 15 Mg Tab Ir PO 15 mg Q8H PRN Administration pain 7-10 Ondansetron HCl 4 mg 09/30/24 19:02 10/02/24 18:18 Ondansetron Inj 4 Mg/2 Ml Vial IV PUSH 4 mg Q4H PRN Administration Nausea Pantoprazole Sodium 40 mg 10/01/24 09:00 10/04/24 08:30 Pantoprazole Sodium Iv 40 Mg Vial IV PUSH 40 mg Q12HR VU Administration Polyethylene Glycol 17 gm 10/01/24 21:11 Polyethylene Glycol 3350 17 Gm Powd.Pack PO DAILY PRN Constipation Verapamil HCl 120 mg 09/30/24 21:00 10/04/24 08:22 Verapamil Hcl 120 Mg Tablet Immed Release PO 120 mg Q12HR VU Administration Radiology Results: ITS Impressions Abdomen/Pelvis CT 09/30/24 19:00 IMPRESSION: Gallbladder hydrops without inflammatory change. Dilated common bile duct, measuring 14 mm. No obstructing stone or mass detected. Correlate with biliary labs. 3.4 cm fusiform infrarenal abdominal aortic aneurysm. Consider follow-up in 3 years. Upper Quadrant Ultrasound 10/01/24 08:43 IMPRESSION: 1. Cholelithiasis with a normal-appearing gallbladder but with mild intra and extrahepatic biliary ductal dilation which raises concern for a nonvisualized distal obstructing choledocholithiasis. Correlate with liver function tests and if clinically indicated could consider further evaluation with either MRCP or ERCP. Chest X-Ray 10/03/24 19:24 IMPRESSION: Cardiomegaly with cardiac decompensation and pulmonary edema. Pneumonitis is not excluded. Labs Labs: Laboratory Results - last 24 hr 10/03/24 10/03/24 10/03/24 11:42 17:12 20:07 WBC RBC Hgb Hct MCV MCH MCHC RDW Plt Count MPV Sodium Potassium Chloride Carbon Dioxide Anion Gap BUN Creatinine Estim Creat Clear Calc Estimated GFR Glucose POC Capillary Glucose 145 H 145 H 182 H Calcium Phosphorus Albumin 10/04/24 10/04/24 04:59 08:07 WBC 11.0 H RBC 3.29 L Hgb 9.8 L Hct 30.5 L MCV 92.7 MCH 29.8 MCHC 32.1 RDW 14.3 Plt Count 131 L MPV 10.4 Sodium 131 L Potassium 3.6 Chloride 100 Carbon Dioxide 21 L Anion Gap 10 BUN 90 H Creatinine 3.43 H Estim Creat Clear Calc 17 Estimated GFR 17 L Glucose 160 H POC Capillary Glucose 136 H Calcium 8.3 L Phosphorus 2.9 Albumin 3.1 L Quality VTE Prophylaxis VTE prophylaxis: pharmacologic ordered (Heparin 5000 units subQ q.12 hours.)
--- NOTE | 2024-10-04 10:21 | PM.CNGS ---
Assessment and Plan Assessment and plan (1) Cholelithiasis: Code(s): K80.20 - Calculus of gallbladder without cholecystitis without obstruction Status: Acute Assessment and Plan: Patient admitted 4 days ago for chest pain and acute on chronic renal failure. CT scan of the abdomen and pelvis on admission showed gallbladder hydrops with a dilated common bile duct. RUQ US showed cholelithiasis with mild intra and extrahepatic biliary ductal dilation, concerning for choledocholithiasis. Initial LFTs/bilirubin were normal. Cardiac workup that this is not cardiac related and GI was consulted. He has continued to have intermittent RUQ pain and vomiting since admission, as well as intermittent low grade fevers. He is not able to have an MRCP due to his pacemaker. His symptoms are likely related to his gallbadder and there is concern for choledocholithiasis given his common bile duct dilatation on imaging. Since his Plavix has been continued, he would not be a candidate for a laparoscopic cholecystectomy at this time. He received his last dose of Plavix this morning, which I have put on hold. Since he continues to have symptoms, we would recommend proceeding with percutaneous cholecystostomy tube placement to treat his cholecystitis. We will eventually consider proceeding with a laparoscopic cholecystectomy with intraoperative cholangiogram to evaluate for choledocholithiasis, but this will be at a later date, possibly as an outpatient depending on how he is progressing medically, when his Plavix can be held for an adequate amount of time. This would also allow time for improved medical optimization in regards to his renal failure and pulmonary edema. Will repeat labs tomorrow and include a CMP to re-evaluate his liver enzymes. Although his WBC count has been trending down, I will also start him on broad-spectrum IV antibiotics to cover for cholecystitis/cholangitis given his persistent pain/fever/leukocytosis. (2) Common bile duct dilation: Code(s): K83.8 - Other specified diseases of biliary tract Status: Acute Assessment and Plan: See plan above. (3) Chest pain: Qualifiers: Chest pain type: unspecified Qualified Code(s): R07.9 - Chest pain, unspecified Code(s): R07.9 - Chest pain, unspecified Status: Acute Assessment and Plan: Not currently complaining of chest pain. He points more towards the epigastric area when asked about pain. This seems to be an intermittent problem and did have an episode of vomiting earlier this morning. (4) Antiplatelet or antithrombotic long-term use: Code(s): Z79.02 - termite treater (current) use of antithrombotics/antiplatelets Status: Acute Assessment and Plan: Plavix has been continued since his admission. He received a dose this morning. Will hold his Plavix now, which ideally is held for 5 days prior to a cholecystectomy. (5) Acute kidney injury superimposed on CKD: Code(s): N17.9 - Acute kidney failure, unspecified; N18.9 - Chronic kidney disease, unspecified Status: Acute Assessment and Plan: Nephrology following (6) Type 2 diabetes mellitus with hyperglycemia, without long-term current use of insulin: Code(s): E11.65 - Type 2 diabetes mellitus with hyperglycemia Status: Acute (7) Pacemaker: Code(s): Z95.0 - Presence of cardiac pacemaker Status: Acute (8) Aortic stenosis: Qualifiers: Cardiac valve disease etiology: nonrheumatic Qualified Code(s): I35.0 - Nonrheumatic aortic (valve) stenosis Code(s): I35.0 - Nonrheumatic aortic (valve) stenosis Status: Acute Assessment and Plan: S/p TAVR in April 2023 Plan I have discussed the patient's case and plan of care with Dr. Brennan. History of Present Illness Consult details Consult date: 10/04/24 Reason for consult: other (Requested evaluation to consider laparoscopic cholecystectomy with IOC) Requesting physician: Kal Palma MD Narrative: This is an 88-year-old man with a history of severe aortic stenosis s/p TAVR 04/2023 on Plavix, pacemaker, HTN, CKD stage 4, BPH, type 2 diabetes mellitus and chronic back pain on 15 mg p.o. morphine t.i.d. chronically, who we have been asked to see in surgical evaluation for possible laparoscopic cholecystectomy with IOC. The patient presented from home to the ED 4 days ago with midsternal chest pain/epigastric pain. He was admitted for further workup of the chest pain and acute on chronic renal failure with uremia. [place] [address] [place] admission, which has been trending down over the past few days to 11,000 this morning. His initial LFTs were all normal, but have not been repeated in the past few days. He had a CT scan of the abdomen and pelvis on 09/30/2024 in the ED that showed gallbladder hydrops with inflammatory change, dilated common bile duct measuring 14 mm, but no obstructing stone or mass seen and no CT evidence of gallstones. Also noted is a 3.4 cm infrarenal abdominal aortic aneurysm. Right upper quadrant abdominal ultrasound showed cholelithiasis with a normal appearing gallbladder but with mild intra and extrahepatic biliary ductal dilatation which raises concern for a nonvisualized distal obstructing common bile duct stone. His troponins were initially elevated, but flat and felt that his chest pain was not cardiac. GI has been consulted as he has complained of reflux symptoms and intermittent right upper quadrant abdominal pain. GI evaluated the patient yesterday. He is unable to have an MRCP due to his pacemaker. GI is recommending evaluation for possible laparoscopic cholecystectomy with IOC. He is now seen on the medical floor. He has continued to have intermittent low grade fevers. Serial chest x-rays showed pulmonary edema, possible pneumonitis. Nephrology continues to follow and his creatinine has improved some but BUN remains as high as 90. He is making urine. Patient is lethargic, but received p.o. morphine about an hour prior to my arrival. He does wake up and answer questions appropriately. He is oriented x3. He denies any abdominal pain at the time of my exam. He reports his pain does seem to be aggravated with eating at times. He reports intermittent nausea and vomiting. He vomited once this morning. No nausea currently. Bowels have been moving normally. Previous abdominal surgery includes a hand assisted laparoscopic right hemicolectomy by Dr. Brennan in 2008 for colon polyp. 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 URI (upper respiratory infection) Preoperative clearance History of colon polyps Dupuytren's contracture of right hand Pre-operative clearance Trigger finger, right middle finger Aortic stenosis Iron deficiency anemia Low back pain radiating to left leg Type II diabetes mellitus with renal manifestations Essential hypertension, benign Mixed hyperlipidemia Bilateral inguinal hernia Small fat containing bilateral inguinal hernias noted on CT 09/30/2024 Hepatic steatosis Chronic pain GERD (gastroesophageal reflux disease) Dyslipidemia BPH (benign prostatic hyperplasia) Type 2 diabetes mellitus Hypertension Hyperlipidemia Chronic kidney disease Heart failure 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 moderate mitral valve regurgitation Surgical History Surgical History History of repair of right rotator cuff (~07/05/14) Subacromial Decompression; Limited Debridement Status post cataract extraction of both eyes with insertion of intraocular lens 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 He has 3 children. He is a retired [employer]. He he is a lifelong nonsmoker and does not drink alcohol or use illicit substances. He ambulates with a walker. Code status: Full code (he states he would not want long-term intubation or feeding tube) Surrogate decision maker: Nallely () Smoking status: Never smoker Second hand tobacco smoke exposure: No Alcohol intake: never Substance use: never Do You Feel Safe in your Home?: Yes Lack of Transportation: YES Lack of Food: Never True Current Housing: I Have Housing Concerned About Future Housing: No Difficulty Paying Gas/Electric Bills: No Difficulty Paying for Meds: No Currently Unemployed: No Education: High School Diploma/GED Difficulty w/ Childcare or Family Care: No Living arrangements: with family Gender identity (if verbalized by the patient): Male Spiritual care concerns: No Meds Home Medications and Allergies Home Medications ?Medication ?Instructions ?Recorded ?Confirmed ?Type clopidogrel 75 mg tablet 75 mg PO DAILY 07/25/23 08/13/24 History fluticasone propionate 50 See Rx Instructions .Route 02/27/24 08/13/24 Rx mcg/actuation nasal .COMPLEX #48 mL spray,suspension cetirizine 5 mg tablet (Allergy 5 mg PO DAILY #30 tabs 05/08/24 08/13/24 Rx Relief (cetirizine)) ezetimibe 10 mg tablet See Rx Instructions .Route 05/09/24 08/13/24 Rx .COMPLEX #90 tabs famotidine 20 mg tablet See Rx Instructions .Route 05/09/24 08/13/24 Rx .COMPLEX #180 tabs finasteride 5 mg tablet See Rx Instructions .Route 05/09/24 08/13/24 Rx .COMPLEX #90 tabs pioglitazone 15 mg tablet See Rx Instructions .Route 05/09/24 08/13/24 Rx .COMPLEX #90 tabs verapamil 80 mg tablet See Rx Instructions .Route 06/11/24 08/13/24 Rx .COMPLEX #60 tabs metolazone 5 mg tablet 5 mg PO .COMPLEX #20 tabs 07/26/24 08/13/24 Rx furosemide 40 mg tablet See Rx Instructions .Route 08/02/24 08/13/24 Rx .COMPLEX #180 tabs doxazosin 4 mg tablet (Cardura) 4 mg PO QHS #30 tabs 08/08/24 08/08/24 Rx morphine 15 mg immediate release 15 mg PO Q8H PRN pain #80 tabs 09/28/24 Rx tablet clopidogrel 75 mg tablet (Plavix) 75 mg PO DAILY 09/30/24 09/30/24 History docusate sodium 100 mg capsule 100 mg PO DAILY 09/30/24 09/30/24 History (Colace) ezetimibe 10 mg tablet (Zetia) 10 mg PO DAILY 09/30/24 09/30/24 History famotidine 20 mg tablet (Acid 20 mg PO BID 09/30/24 09/30/24 History Controller) finasteride 5 mg tablet 5 mg PO DAILY 09/30/24 09/30/24 History fluticasone propionate 50 2 spray intranasal DAILY PRN 09/30/24 09/30/24 History mcg/actuation nasal allergy symptoms spray,suspension (Flonase Allergy Relief) furosemide 80 mg tablet 80 mg PO DAILY 09/30/24 09/30/24 History metolazone 5 mg tablet 5 mg PO DAILY 09/30/24 09/30/24 History morphine 15 mg immediate release 15 mg PO Q8H PRN pain 09/30/24 09/30/24 History tablet pioglitazone 15 mg tablet (Actos) 15 mg PO DAILY 09/30/24 09/30/24 History verapamil 120 mg tablet 120 mg PO DAILY 09/30/24 09/30/24 History Allergies Allergy/AdvReac Type Severity Reaction Status Date / Time atorvastatin Allergy Unknown myalgia Verified 10/01/24 08:17 rosuvastatin Allergy Unknown myalgia Verified 10/01/24 08:17 Vital Signs Vital Signs - 24 hr 10/03/24 12:00 10/03/24 16:00 10/03/24 20:00 Temperature 97.8 F 97.7 F 98.2 F Pulse Rate 70 74 64 Respiratory Rate 18 18 18 Blood Pressure 136/58 L 149/53 H 128/52 L Pulse Oximetry 92 95 94 Oxygen Delivery Fraction of Inspired Oxygen 10/03/24 20:00 10/03/24 20:08 10/04/24 00:00 Temperature 98.2 F Pulse Rate 61 81 Respiratory Rate 20 18 Blood Pressure 171/56 H Pulse Oximetry 90 98 Oxygen Delivery Room Air Room Air Fraction of Inspired Oxygen 21 10/04/24 04:00 10/04/24 08:14 10/04/24 08:30 Temperature 100.4 F H 99.7 F H Pulse Rate 72 77 Respiratory Rate 18 Blood Pressure 160/71 H 152/64 H Pulse Oximetry 95 95 Oxygen Delivery Room Air Fraction of Inspired Oxygen Exam Const: General: no acute distress and tired appearing Nutritional Appearance: average body habitus Orientation/consciousness: patient oriented x3 (falls asleep easily while talking to him but easily arousable) HENMT: Head: normocephalic and atraumatic Ears: hearing grossly normal bilaterally Mouth: Yes moist mucous membranes Eyes: General: appearance normal, both eyes and all related structures Pupils: Equal, round and reactive pupils present Neck: Neck: normal visual inspection and full ROM Chest: Chest palpation & inspection: normal inspection of the chest Resp: Effort & Inspection: no respiratory distress Auscultation: clear to auscultation bilaterally and wheezes expiratory wheezes and throughout Cardio: Rate: regular rate Rhythm: regular rhythm Heart sounds: S1 normal heart sound present and S2 normal heart sound present Peripheral pulses: Peripheral pulses 2+ throughout GI: Inspection: non-distended, scar (Small vertical midline scar from hand port site) and no visible herniation GI Palp: Yes Soft to palpation, Yes Tenderness to palpation present (GI) (Mild diffuse tenderness in epigastric area and RUQ), No Guarding due to palpation present (GI), Yes No hepatosplenomegaly present and No Rebound tenderness present Auscultation: normal bowel sounds Rectal Exam: deferred Skin: General skin exam: normal color Neuro: General: moves all extremities and no focal motor deficits Speech: normal speech Motor exam (neuro): 5/5 motor strength present throughout Extrem: General: normal to inspection, no calf tenderness and edema bilateral (1-2 +pitting bilateral lower extremities, trace upper extremity edema bilaterally) Psych: Mental Status: mental status grossly normal Attitude: cooperative Insight: Good insight present (Psych) Judgement: Good judgement present (Psych) Results Labs 10/04/24 04:59 10/04/24 04:59 Labs: Abnormal lab results 10/03/24 10/03/24 10/03/24 Range/Units 11:42 17:12 20:07 WBC (4.5-10.0) K/mm3 RBC (4.6-6.20) M/mm3 Hgb (14.0-18.0) g/dL Hct (42.0-52.0) % Plt Count (150-375) k/mm3 Sodium (137-145) mmol/L Carbon Dioxide (22-30) mmol/L BUN (9-20) mg/dL Creatinine (0.7-1.3) mg/dL Estimated GFR (59 - ) Glucose (65-110) mg/dL POC Capillary Glucose 145 H 145 H 182 H (65-105) mg/dl Calcium (8.4-10.2) mg/dL Albumin (3.5-5.1) g/dL 10/04/24 10/04/24 Range/Units 04:59 08:07 WBC 11.0 H (4.5-10.0) K/mm3 RBC 3.29 L (4.6-6.20) M/mm3 Hgb 9.8 L (14.0-18.0) g/dL Hct 30.5 L (42.0-52.0) % Plt Count 131 L (150-375) k/mm3 Sodium 131 L (137-145) mmol/L Carbon Dioxide 21 L (22-30) mmol/L BUN 90 H (9-20) mg/dL Creatinine 3.43 H (0.7-1.3) mg/dL Estimated GFR 17 L (59 - ) Glucose 160 H (65-110) mg/dL POC Capillary Glucose 136 H (65-105) mg/dl Calcium 8.3 L (8.4-10.2) mg/dL Albumin 3.1 L (3.5-5.1) g/dL Diabetes panel 10/04/24 Range/Units 04:59 Sodium 131 L (137-145) mmol/L Potassium 3.6 (3.4-5.0) mmol/L Chloride 100 (98-107) mmol/L Carbon Dioxide 21 L (22-30) mmol/L BUN 90 H (9-20) mg/dL Creatinine 3.43 H (0.7-1.3) mg/dL Glucose 160 H (65-110) mg/dL Calcium 8.3 L (8.4-10.2) mg/dL Albumin 3.1 L (3.5-5.1) g/dL Calcium panel 10/04/24 Range/Units 04:59 Calcium 8.3 L (8.4-10.2) mg/dL Phosphorus 2.9 (2.5-4.5) mg/dL Albumin 3.1 L (3.5-5.1) g/dL Pituitary panel 10/04/24 Range/Units 04:59 Sodium 131 L (137-145) mmol/L Potassium 3.6 (3.4-5.0) mmol/L Chloride 100 (98-107) mmol/L Carbon Dioxide 21 L (22-30) mmol/L BUN 90 H (9-20) mg/dL Creatinine 3.43 H (0.7-1.3) mg/dL Glucose 160 H (65-110) mg/dL Calcium 8.3 L (8.4-10.2) mg/dL Adrenal panel 10/04/24 Range/Units 04:59 Sodium 131 L (137-145) mmol/L Potassium 3.6 (3.4-5.0) mmol/L Chloride 100 (98-107) mmol/L Carbon Dioxide 21 L (22-30) mmol/L BUN 90 H (9-20) mg/dL Creatinine 3.43 H (0.7-1.3) mg/dL Glucose 160 H (65-110) mg/dL Calcium 8.3 L (8.4-10.2) mg/dL Albumin 3.1 L (3.5-5.1) g/dL All other labs normal. Imaging Additional studies: ITS Impressions Chest X-Ray 09/30/24 16:52 IMPRESSION: No acute cardiopulmonary process. Abdomen/Pelvis CT 09/30/24 19:00 IMPRESSION: Gallbladder hydrops without inflammatory change. Dilated common bile duct, measuring 14 mm. No obstructing stone or mass detected. Correlate with biliary labs. 3.4 cm fusiform infrarenal abdominal aortic aneurysm. Consider follow-up in 3 years. Upper Quadrant Ultrasound 10/01/24 08:43 IMPRESSION: 1. Cholelithiasis with a normal-appearing gallbladder but with mild intra and extrahepatic biliary ductal dilation which raises concern for a nonvisualized distal obstructing choledocholithiasis. Correlate with liver function tests and if clinically indicated could consider further evaluation with either MRCP or ERCP. Chest X-Ray 10/02/24 15:24 IMPRESSION: 1: NO ACUTE CARDIOPULMONARY DISEASE. Chest X-Ray 10/03/24 19:24 IMPRESSION: Cardiomegaly with cardiac decompensation and pulmonary edema. Pneumonitis is not excluded.
[2024-10-04] MEDS: cefTRIAXone 2 GM/NS 100 ML 2 GM/100 ML BAG IVPB (13:11)
--- NOTE | 2024-10-04 13:51 | P.PNNP_ITS ---
Progress Note: A&P Assessment and Plan (1) Acute kidney injury: Code(s): N17.9 - Acute kidney failure, unspecified Status: Acute Assessment and Plan: * fluctuations noted * as noted on admission * complicated by significant azotemia/elevated BUN * mild improvement in creatinine but BUN still elevated by repeat labs * agree with holding diuretics and trial of IVFs * follow respiratory status closely given hx of CHF * evaluation to date noted: * admission CT of A/P with no suspicious mass, obstructing stone, or hydronephrosis * prerenal urine electrolytes (by FeUrea) * urine eosinophils negative * mild proteinuria * normal/low CPK * UA without evidence of infection * suspect multifactorial etiology: * prerenal factors * overdiuresis(?) * possible infection (secondary to gallbladder issues?) * other(?) * follow trend of repeat labs and UOP (2) Stage 4 chronic kidney disease: Code(s): N18.4 - Chronic kidney disease, stage 4 (severe) Status: Chronic Assessment and Plan: * slow and progressive decline noted * GFR ~ 22 to 23 in * GFR ~ 20 to 21 in 2022/2023 * GFR ~ 18 by July 2024 labs * creatinine has been running anywhere from 2.4 - 3.2mg/dl in the last 6 months * creatinine on 09/27/24 (outpatient labs) = 3.93mg/dl (GFR 15) * most likely due to diabetes and hypertension + chronic diuretic therapy (3) Azotemia: Code(s): R79.89 - Other specified abnormal findings of blood chemistry Status: Acute Assessment and Plan: * slow improvement noted * noted on admission * suspected related to diuretic therapy * no evidence of GI bleed * no other culprit medications * follow trend of BUN (4) Gallbladder hydrops: Code(s): K82.1 - Hydrops of gallbladder Status: Acute Assessment and Plan: * CT of A/P without overt acute cholecystitis * however, does have significant right upper quadrant pain on palpation with nausea and decreased oral intake * RUQ ultrasound results noted as well * LFTs normal * GI and Surgery recommendations noted * noted plan for cholecystostomy tube placement for presumed cholecystitis * continue supportive therapy (5) Hypertension: Code(s): I10 - Essential (primary) hypertension Status: Chronic Assessment and Plan: * reasonable control * follow trend of hemodynamics (6) Type 2 diabetes mellitus with hyperglycemia, without long-term current use of insulin: Code(s): E11.65 - Type 2 diabetes mellitus with hyperglycemia Status: Chronic Assessment and Plan: * follow accu-cheks * glycemic control per hospitalist Will continue to follow. L Subjective Date/time seen: 10/04/24 13:51 Interval history: Follow-up for acute kidney injury/acute renal failure on chronic kidney disease. Seen by GI yesterday afternoon and seen by Surgery earlier this morning with recommendations noted (cholecystectomy tube placement); BUN continue to improve but creatinine back up again in the last 24 hours and IVFs were dc'd due CXR findings noting mild pulmonary edema; still with on/off RUQ pain but denies any nausea; low grade fevers noted as well. Exam 2 Narrative: General: elderly but WD/WN male in NAD Heart: normal S1 and S2; no rub Lungs: clear anteriorly Abdomen: soft, +TTP in RUQ; nondistended, positive bowel sounds Extremities: no cyanosis or clubbing; trace - 1+ edema Skin: no rash Objective Data Vital Signs Vital Signs: Vital Signs Temp Pulse Resp BP Pulse Ox O2 Del Method FiO2 10/04/24 13:50 98.2 F 71 20 131/51 L 98 10/04/24 08:30 Room Air 10/04/24 08:14 99.7 F H 77 152/64 H 95 10/04/24 04:00 100.4 F H 72 18 160/71 H 95 10/04/24 00:00 98.2 F 81 18 171/56 H 98 10/03/24 20:08 61 20 90 Room Air 21 10/03/24 20:00 Room Air 10/03/24 20:00 98.2 F 64 18 128/52 L 94 Intake/Output Intake/Output: Intake & Output 10/01/24 10/02/24 10/03/24 10/04/24 23:59 23:59 23:59 23:59 Intake Total 4843.8 4708.8 2320.3 560 Output Total 1100 900 250 Balance 3743.8 3808.8 2320.3 310 Meds/Results Medications: Active Medications Generic Name Dose Route Start Last Admin Trade Name Freq PRN Reason Stop Dose Admin Acetaminophen 650 mg 09/30/24 19:02 10/02/24 09:21 Acetaminophen 325 Mg Tablet PO 650 mg Q4H PRN Administration Mild Pain (1-3) or Fever Albuterol 2 puff 10/03/24 15:40 10/04/24 09:06 Albuterol Sulfate (*Sp) Aerosol 1 Puff INHALATION 2 puff Q6HRT PRN Administration Shortness Of Breath Or Wheezing Clopidogrel Bisulfate 75 mg 10/01/24 09:00 10/04/24 08:22 Clopidogrel Bisulfate 75 Mg Tablet PO 75 mg DAILY VU Administration Dextrose 12.5 gm 09/30/24 20:29 Dextrose 50% 25 Gm/50 Ml Syringe IV PUSH PRN PRN Hypoglycemia Protocol Docusate Sodium 100 mg 10/01/24 09:00 10/04/24 08:22 Docusate Sodium 100 Mg Capsule PO 100 mg DAILY VU Administration Ezetimibe 10 mg 10/01/24 09:00 10/04/24 08:22 Ezetimibe 10 Mg Tablet PO 10 mg DAILY VU Administration Famotidine 20 mg 09/30/24 21:00 10/04/24 08:23 Famotidine 20 Mg Tablet PO 20 mg Q12HR VU Administration Finasteride 5 mg 10/01/24 09:00 10/04/24 08:22 Finasteride 5 Mg Tablet PO 5 mg DAILY VU Administration Fluticasone Propionate 2 spray 09/30/24 20:28 10/03/24 20:55 Fluticasone Propionate 0.05% Na Spr 16 Gm Btl (*Bkc) NASAL 2 spray DAILY PRN Administration allergy symptoms Glucagon 1 mg 09/30/24 20:29 Glucagon For Inj 1 Mg Vial IM PRN PRN Hypoglycemia Protocol Glucose 15 gm 09/30/24 20:29 Glucose Oral Gel 15 Gm Of Glucse In 37.5 Gm Tube PO PRN PRN Hypoglycemia Protocol Heparin Sodium (Porcine) 5,000 units 09/30/24 21:00 10/04/24 08:30 Heparin Sodium 5,000 Units/Ml Vial SUB-Q 5,000 units Q12HR VU Administration Dextrose 1,000 mls @ 100 mls/hr 09/30/24 20:29 Dextrose 5% 1,000 Ml IVPB PRN PRN Hypoglycemia Protocol Metronidazole 500 mg in 100 mls @ 100 mls/hr 10/04/24 13:00 10/04/24 14:56 Flagyl 500 Mg/Iso Soln 100 Ml IVPB Infused Q8HR VU Infusion Ceftriaxone Sodium 2 gm in 100 mls @ 200 mls/hr 10/04/24 12:00 10/04/24 13:41 Rocephin 2 Gm/Ns 100 Ml IVPB Infused Q24H VU Infusion Sodium Chloride 1,000 mls @ 100 mls/hr 10/04/24 13:50 10/04/24 15:04 Normal Saline Iv IV CONT 100 mls/hr .Q10H VU Administration Insulin Aspart 1 - 3 units 09/30/24 21:00 10/03/24 20:23 Insulin Aspart (*Bkc) 100 Units/Ml SUB-Q Not Given HS [facility] Protocol Insulin Aspart 3 - 6 units 10/01/24 08:00 10/04/24 17:00 Insulin Aspart (*Bkc) 100 Units/Ml SUB-Q Not Given TIDWM [facility] Protocol Morphine Sulfate 15 mg 09/30/24 20:28 10/03/24 08:41 Morphine Sulfate (*Crx) 15 Mg Tab Ir PO 15 mg Q8H PRN Administration pain 7-10 Ondansetron HCl 4 mg 09/30/24 19:02 10/02/24 18:18 Ondansetron Inj 4 Mg/2 Ml Vial IV PUSH 4 mg Q4H PRN Administration Nausea Pantoprazole Sodium 40 mg 10/01/24 09:00 10/04/24 08:30 Pantoprazole Sodium Iv 40 Mg Vial IV PUSH 40 mg Q12HR VU Administration Polyethylene Glycol 17 gm 10/01/24 21:11 Polyethylene Glycol 3350 17 Gm Powd.Pack PO DAILY PRN Constipation Verapamil HCl 120 mg 09/30/24 21:00 10/04/24 08:22 Verapamil Hcl 120 Mg Tablet Immed Release PO 120 mg Q12HR VU Administration Radiology Results: ITS Impressions Abdomen/Pelvis CT 09/30/24 19:00 IMPRESSION: Gallbladder hydrops without inflammatory change. Dilated common bile duct, measuring 14 mm. No obstructing stone or mass detected. Correlate with biliary labs. 3.4 cm fusiform infrarenal abdominal aortic aneurysm. Consider follow-up in 3 years. Upper Quadrant Ultrasound 10/01/24 08:43 IMPRESSION: 1. Cholelithiasis with a normal-appearing gallbladder but with mild intra and extrahepatic biliary ductal dilation which raises concern for a nonvisualized distal obstructing choledocholithiasis. Correlate with liver function tests and if clinically indicated could consider further evaluation with either MRCP or ERCP. Chest X-Ray 10/03/24 19:24 IMPRESSION: Cardiomegaly with cardiac decompensation and pulmonary edema. Pneumonitis is not excluded. Labs Labs: Laboratory Tests 10/04/24 04:59 10/04/24 04:59 Calcium 8.3 L Phosphorus 2.9 Albumin 3.1 L
[2024-10-04] MEDS: metroNIDAZOLE 500 MG/ISO 100ML 500 MG/100 ML BAG 100 MG IVPB ×2 (13:56→21:38)
[2024-10-04 13:57] VITALS: BP 131/51; PULSE 71; RESP 20; TEMP 36.8; O2SAT 98
[2024-10-04] MEDS: SODIUM CHLORIDE 0.9% IV 1,000 ML 100 ML IV CONT (15:04)
[2024-10-04 18:21] VITALS: BP 138/51; PULSE 73; RESP 18; TEMP 36.8; O2SAT 97
[2024-10-04 20:00] VITALS: BP 114/55; PULSE 62; RESP 16; TEMP 37; O2SAT 96
[2024-10-04] MEDS: MORPHINE SULFATE (*CRX) 15 MG TAB IR PO (20:17)
[2024-10-05] VITALS: BP 126/52; PULSE 60; RESP 14; TEMP 37.1; O2SAT 94
[2024-10-05] MEDS: SODIUM CHLORIDE 0.9% IV 1,000 ML 100 ML IV CONT ×2 (02:28→16:30)
[2024-10-05 04:00] VITALS: BP 155/62; PULSE 72; RESP 12; TEMP 36.7; O2SAT 95
[2024-10-05 05:59] LABS: Hematocrit 31.3 % (42.0-52.0); Hemoglobin 9.9 g/dL (14.0-18.0); Mean Corpuscular HGB Conc 31.6 g/dl (32-36); Mean Corpuscular Hemoglobin 29.4 pg (26-34); Mean Corpuscular Volume 92.9 fl (80-100); Platelet Count Result 130 k/mm3 (150-375); Red Blood Count 3.37 M/mm3 (4.6-6.20); White Blood Count 9.9 K/mm3 (4.5-10.0)
[2024-10-05] MEDS: metroNIDAZOLE 500 MG/ISO 100ML 500 MG/100 ML BAG 100 MG IVPB ×3 (06:11→21:29)
[2024-10-05 06:28] LABS: Alanine Aminotransferase 25 U/L (6-50); Albumin Level 3.0 g/dL (3.5-5.1); Alkaline Phosphatase 69 U/L (38-126); Anion Gap 10 mmol/L (4-12); Aspartate Amino Transferase 34 U/L (17-59); Bilirubin,Total 0.8 mg/dL (0.2-1.3); Blood Urea Nitrogen 94 mg/dL (9-20); Calcium 8.4 mg/dL (8.4-10.2); Carbon Dioxide 22 mmol/L (22-30); Chloride 102 mmol/L (98-107); Estimated CRCL calculation 16 ml/min; Estimated Glomerular Filt Rate 16; Glucose 125 mg/dL (65-110); Potassium 3.8 mmol/L (3.4-5.0); Sodium 134 mmol/L (137-145); Total Protein 6.1 g/dL (6.3-8.2)
--- NOTE | 2024-10-05 07:47 | P.PNIM_ITS ---
Progress Note: A&P Assessment and Plan (1) Chest pain: Qualifiers: Chest pain type: unspecified Qualified Code(s): R07.9 - Chest pain, unspecified Code(s): R07.9 - Chest pain, unspecified Status: Acute Assessment and Plan: -Chest pain seems atypical in nature, pt continue to deny CP. -Troponin are elevated but flat. Will complete troponin series. -Pain seems more consistent with GI cause with reported indigestion and significant right upper quadrant pain. -Will continue Antihypertensives and Plavix. -->HOLD Plavix starting 10/05 for eventual lap torrie per surg (2) Acute kidney injury superimposed on CKD: Code(s): N17.9 - Acute kidney failure, unspecified; N18.9 - Chronic kidney disease, unspecified Status: Acute Assessment and Plan: Patient has chronic kidney disease stage 4 with acute kidney injury. Most likely prerenal due to intervascular volume depletion. - Hold Lasix and continue IV fluid hydration at 75ml/hr. - Nephrology was consulted from the ER. - Continue flomax 10/02- cr/bun 2.96/100 10/03: Cr/BUN: 3.26/91, pending neph rounds due to worsening Cr 10/04: Cr/BUN: 3.43/90, Started IVF again today, continue to hold lasix 10/05: Cr/BUN: 3.54/[address] Lopez today, he believes that once the torrie tube is placed and with IV abx on board, kidney labs should begin to normalize back to pt baseline which is CKD4. Will continue to monitor levels. Dr. Lopez on for the weekend. (3) Acute uremia: Code(s): N19 - Unspecified kidney failure Status: Acute Assessment and Plan: Possibly due to hypovolemia. GI bleed is less likely given patient's hemoglobin is stable at 12 in ED and patient denies symptoms of hematemesis hematochezia or melena. Pt continues to deny any blood loss. -Will hold Lasix and continue IV fluid hydration and repeat CBC and electrolyte panel in a.m. -Decrease IV fluids to 50 ml and monitor I/O closely 10/03: -H/H as of 10/03: 9.6/30.5 -Pt appetite still decreased, continue IVF 50/hr 10/04: -H/H 9.8/30.5 -Started again on IVF to try to normalize creat, pt will be NPO at [facility] anyway for procedure tomorrow. 10/05: -H/H 9.9/31.3 -IVF down to 75 ml/hr for NPO status and to avoid pulm edema Spoke to Dr. Lopez today, he believes that once the torrie tube is placed and with IV abx on board, kidney labs should begin to normalize back to pt baseline which is CKD4. Will continue to monitor levels. Dr. Lopez on for the weekend. (4) Gallbladder hydrops: Code(s): K82.1 - Hydrops of gallbladder Status: Acute Assessment and Plan: CT does not suggest overt acute cholecystitis but patient does have significant kit right upper quadrant pain on palpation and worsening of his nausea with palpation of right upper quadrant. -RUQ US for better visualization of the gallbladder: 1. Cholelithiasis with a normal-appearing gallbladder but with mild intra and extrahepatic biliary ductal dilation which raises concern for a nonvisualized distal obstructing choledocholithiasis. Correlate with liver function tests and if clinically indicated could consider further evaluation with either MRCP or ERCP. -->Consulted GI 10/03, pending recs/rounding -Bilirubin and transaminases are normal. -Patient does have some leukocytosis but no fever. -Will hold off on adding antibiotic coverage at this time and will repeat CBC in a.m. 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 His symptoms are likely related to his gallbadder and there is concern for choledocholithiasis given his common bile duct dilatation on imaging. Since his Plavix has been continued, he would not be a candidate for a laparoscopic cholecystectomy at this time. He received his last dose of Plavix this morning, which I have put on hold. Since he continues to have symptoms, we would recommend proceeding with percutaneous cholecystostomy tube placement to treat his cholecystitis. We will eventually consider proceeding with a laparoscopic cholecystectomy with intraoperative cholangiogram to evaluate for choledocholithiasis, but this will be at a later date, possibly as an outpatient depending on how he is progressing medically, when his Plavix can be held for an adequate amount of time. This would also allow time for improved medical optimization in regards to his renal failure and pulmonary edema. Will repeat labs tomorrow and include a CMP to re-evaluate his liver enzymes. Although his WBC count has been trending down, I will also start him on broad-spectrum IV antibiotics to cover for cholecystitis/cholangitis given his persistent pain/fever/leukocytosis. Plavix has been continued since his admission. He received a dose this morning. Will hold his Plavix now, which ideally is held for 5 days prior to a cholecystectomy. -->Plan for torrie tube placement tomorrow, surg started ceftriaxone and flagyl today 10/05: HIDA scan and cholecystectomy tube placement today. Low fat diet started after procedure. Will continue to monitor tube and daily AM labs. (5) Type 2 diabetes mellitus with hyperglycemia, without long-term current use of insulin: Code(s): E11.65 - Type 2 diabetes mellitus with hyperglycemia Status: Acute Assessment and Plan: Hold Actos -Moderate dose sliding scale insulin with Accu-Cheks a.c. HS and hypoglycemia protocol. -Glucose has been stable during stay (6) Chronic pain: Qualifiers: Chronic pain type: chronic pain syndrome Qualified Code(s): G89.4 - Chronic pain syndrome Code(s): G89.29 - Other chronic pain Status: Acute Assessment and Plan: Will resume patient's home morphine 15 mg Q 8 hours p.r.n. pain 7-10. (7) Abdominal aortic aneurysm (AAA) 3.0 cm to 5.5 cm in diameter in male: Code(s): I71.40 - Abdominal aortic aneurysm, without rupture, unspecified Status: Acute Assessment and Plan: Likely chronic will defer follow-up to patient's primary care provider for serial imaging (8) Antiplatelet or antithrombotic long-term use: Code(s): Z79.02 - MCFP (current) use of antithrombotics/antiplatelets Status: Acute Assessment and Plan: Pt with hx of pacemaker and plavix long-term use. Per surg: Plavix has been continued since his admission. He received a dose this morning. Will hold his Plavix now, which ideally is held for 5 days prior to a cholecystectomy. (9) Bacteremia: Code(s): R78.81 - Bacteremia Status: Acute Assessment and Plan: 10/05: Both blood cultures resulted today with Gram + cocci in chains -->Spoke with [facility] pharm, reports could be either strep strain (covered by Ceftriaxone) or Entero strain (covered by Vanc) --->Will start vanc today to treat if ends up being entero strain to get ahead of the infection, will f/u tomorrow for final reads -Pt on Ceftriaxone 2g already via surg for low grade fevers and leukocytosis, will continue. -Ordered echo 10/05 to r/o endocarditis -Also repeat order for BC placed today Plan Torrie tube placement 10/05, continue to monitor pt with labs, VS, and pain control. Surg started IV abx 10/04 and also paused Plavix starting 10/05 for eventual lap torrie. F/u with BC final result tomorrow, vanc started today due to prelim result of Gram+ cocci chains Subjective Date/time seen: 10/05/24 1115 Interval history: 88-year-old male with a past medical history of heart valve replacement, CHF, chronic kidney disease, BPH, type 2 diabetes mellitus and chronic pain who presented to the ER via EMS from home due to nausea, abdominal pain and chest pain for 3 days. The patient reports that he has been having initial symptoms of abdominal pain of his generalized for the last 3 days. In ED- BUN of 120 creatinine 3.86. He was hyperglycemic in the ER. Pt is seen and examined.He denies any chest pain, feels overall tired and somewhat nauseated. 10/02 - pt is seen and examined. He is very weak, unable to do much on his own. No abd pain, no nausea today. Cr elevated overnight- nephrology following. 10/03: Pt continues to report RUQ abd pain, nausea, and decreased appetite. pt denies CP. Pt is confused why he is still having pain, I updated him that his abd US showed that he may have a gallstone that may be trapped in his bile duct today and that may be why he is still in pain. Updated him on the plan for GI to come see him to discuss further steps, pt agreeable with the plan. Pt encouraged to keep trying to eat and drink fluids, continue IVF as of now. 10/04: Pt reports that his RUQ pain today is mildly worse, but denies any nausea and he states I have not had any of that for some time now. Updated him on the plan from GI for surgery to consult due to the need of a lap torrie to visualize the probable stone due to not being able to obtain an MRCP because he has a pacemaker. Upon exam today, pt drowsy, but awakens to verbal stimuli. I spoke to on the phone and she states that his drowsiness state is baseline. 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 Reiterated plan for surgery to consult on plan which they recommended proceeding with percutaneous cholecystostomy tube placement to treat his cholecystitis due to being on his Plavix. 10/05: Pt sleeping when entered room, awakens to verbal stimuli. Pt continues to report mild RUQ pain and deny nausea. Updated him on the plan for additional imaging today as well as a torrie tube placement, pt agreeable with the plan. Transport here to get pt now. Review of Systems Review of Systems: 12 systems were reviewed with pertinent positives and negatives per HPI. Except as documented in the HPI, all other systems were reviewed and are negative. Exam Const: General: comfortable Other: No acute distress, well-developed, obese, appears stated age HENMT: Other: Mucous membranes are tacky, upper and lower dentures in place Eyes: General: appearance normal, both eyes and all related structures Sclera: sclerae normal Other: Bilateral lens replacements noted - R 4mm, L 3mm pupils, no conjunctival pallor, no scleral icterus Neck: Other: Large neck circumference, no JVD, loss of cervical lordosis Resp: Effort & Inspection: normal respiratory effort Auscultation: clear to auscultation bilaterally Other: Clear to auscultation bilaterally, no increased work of breathing Cardio: Rate: regular rate Rhythm: regular rhythm Other: Regular rate, regular rhythm, no murmur, 2+ bilateral radial and pedal pulses GI: Inspection: non-distended Auscultation: normal bowel sounds Other: RUQ with mild TTP Skin: General skin exam: normal color and No rashes Rashes: no rashes noted Neuro: Other: Alert oriented to person place and time, speech is clear, mild hearing loss, no localizing neurologic deficit noted during the course of conversation. Drowsy but awakens to verbal stimuli. Extrem: General: normal to inspection Other: 5/5 marketing secretary strength bilaterally, trace lisa ma right lower extremity 1+ edema left lower extremity Psych: Affect: normal affect Other: Flat affect, cooperative, appropriate insight and judgment Objective Data Vital Signs Vital Signs: Vital Signs - 24 hr 10/04/24 08:14 10/04/24 08:30 10/04/24 13:57 Temperature 99.7 F H 98.2 F Pulse Rate 77 71 Respiratory Rate 20 Blood Pressure 152/64 H 131/51 L Pulse Oximetry 95 98 Oxygen Delivery Room Air 10/04/24 18:21 10/04/24 20:00 10/04/24 20:00 Temperature 98.3 F 98.6 F Pulse Rate 73 62 Respiratory Rate 18 16 Blood Pressure 138/51 L 114/55 L Pulse Oximetry 97 96 Oxygen Delivery Room Air 10/05/24 00:00 10/05/24 04:00 Temperature 98.8 F 98.1 F Pulse Rate 60 72 Respiratory Rate 14 12 Blood Pressure 126/52 L 155/62 H Pulse Oximetry 94 95 Oxygen Delivery Intake/Output Intake/Output: Intake & Output 10/02/24 10/03/24 10/04/24 10/05/24 23:59 23:59 23:59 23:59 Intake Total 4708.8 2320.3 1230 1000 Output Total 900 250 450 Balance 3808.8 2320.3 980 550 Meds/Results Medications: Active Medications Generic Name Dose Route Start Last Admin Trade Name Freq PRN Reason Stop Dose Admin Acetaminophen 650 mg 09/30/24 19:02 10/02/24 09:21 Acetaminophen 325 Mg Tablet PO 650 mg Q4H PRN Administration Mild Pain (1-3) or Fever Albuterol 2 puff 10/03/24 15:40 10/04/24 09:06 Albuterol Sulfate (*Sp) Aerosol 1 Puff INHALATION 2 puff Q6HRT PRN Administration Shortness Of Breath Or Wheezing Clopidogrel Bisulfate 75 mg 10/01/24 09:00 10/04/24 08:22 Clopidogrel Bisulfate 75 Mg Tablet PO 75 mg DAILY VU Administration Dextrose 12.5 gm 09/30/24 20:29 Dextrose 50% 25 Gm/50 Ml Syringe IV PUSH PRN PRN Hypoglycemia Protocol Docusate Sodium 100 mg 10/01/24 09:00 10/04/24 08:22 Docusate Sodium 100 Mg Capsule PO 100 mg DAILY VU Administration Ezetimibe 10 mg 10/01/24 09:00 10/04/24 08:22 Ezetimibe 10 Mg Tablet PO 10 mg DAILY VU Administration Famotidine 20 mg 09/30/24 21:00 10/04/24 20:06 Famotidine 20 Mg Tablet PO 20 mg Q12HR VU Administration Finasteride 5 mg 10/01/24 09:00 10/04/24 08:22 Finasteride 5 Mg Tablet PO 5 mg DAILY VU Administration Fluticasone Propionate 2 spray 09/30/24 20:28 10/03/24 20:55 Fluticasone Propionate 0.05% Na Spr 16 Gm Btl (*Bkc) NASAL 2 spray DAILY PRN Administration allergy symptoms Glucagon 1 mg 09/30/24 20:29 Glucagon For Inj 1 Mg Vial IM PRN PRN Hypoglycemia Protocol Glucose 15 gm 09/30/24 20:29 Glucose Oral Gel 15 Gm Of Glucse In 37.5 Gm Tube PO PRN PRN Hypoglycemia Protocol Heparin Sodium (Porcine) 5,000 units 09/30/24 21:00 10/04/24 20:06 Heparin Sodium 5,000 Units/Ml Vial SUB-Q 5,000 units Q12HR VU Administration Dextrose 1,000 mls @ 100 mls/hr 09/30/24 20:29 Dextrose 5% 1,000 Ml IVPB PRN PRN Hypoglycemia Protocol Metronidazole 500 mg in 100 mls @ 100 mls/hr 10/04/24 13:00 10/05/24 06:11 Flagyl 500 Mg/Iso Soln 100 Ml IVPB 100 mls/hr Q8HR VU Administration Ceftriaxone Sodium 2 gm in 100 mls @ 200 mls/hr 10/04/24 12:00 10/04/24 13:41 Rocephin 2 Gm/Ns 100 Ml IVPB Infused Q24H VU Infusion Sodium Chloride 1,000 mls @ 100 mls/hr 10/04/24 13:50 10/05/24 02:28 Normal Saline Iv IV CONT 100 mls/hr .Q10H VU Administration Insulin Aspart 1 - 3 units 09/30/24 21:00 10/04/24 21:42 Insulin Aspart (*Bkc) 100 Units/Ml SUB-Q Not Given HS VU Protocol Insulin Aspart 3 - 6 units 10/01/24 08:00 10/04/24 17:00 Insulin Aspart (*Bkc) 100 Units/Ml SUB-Q Not Given TIDWM VU Protocol Morphine Sulfate 15 mg 09/30/24 20:28 10/04/24 20:17 Morphine Sulfate (*Crx) 15 Mg Tab Ir PO 15 mg Q8H PRN Administration pain 7-10 Ondansetron HCl 4 mg 09/30/24 19:02 10/02/24 18:18 Ondansetron Inj 4 Mg/2 Ml Vial IV PUSH 4 mg Q4H PRN Administration Nausea Pantoprazole Sodium 40 mg 10/01/24 09:00 10/04/24 20:06 Pantoprazole Sodium Iv 40 Mg Vial IV PUSH 40 mg Q12HR VU Administration Polyethylene Glycol 17 gm 10/01/24 21:11 Polyethylene Glycol 3350 17 Gm Powd.Pack PO DAILY PRN Constipation Verapamil HCl 120 mg 09/30/24 21:00 10/04/24 20:06 Verapamil Hcl 120 Mg Tablet Immed Release PO 120 mg Q12HR VU Administration Radiology Results: ITS Impressions Abdomen/Pelvis CT 09/30/24 19:00 IMPRESSION: Gallbladder hydrops without inflammatory change. Dilated common bile duct, measuring 14 mm. No obstructing stone or mass detected. Correlate with biliary labs. 3.4 cm fusiform infrarenal abdominal aortic aneurysm. Consider follow-up in 3 years. Upper Quadrant Ultrasound 10/01/24 08:43 IMPRESSION: 1. Cholelithiasis with a normal-appearing gallbladder but with mild intra and extrahepatic biliary ductal dilation which raises concern for a nonvisualized distal obstructing choledocholithiasis. Correlate with liver function tests and if clinically indicated could consider further evaluation with either MRCP or ERCP. Chest X-Ray 10/03/24 19:24 IMPRESSION: Cardiomegaly with cardiac decompensation and pulmonary edema. Pneumonitis is not excluded. Labs Labs: Laboratory Results - last 24 hr 10/04/24 10/04/24 10/04/24 08:07 11:57 12:56 WBC RBC Hgb Hct MCV MCH MCHC RDW Plt Count MPV Sodium Potassium Chloride Carbon Dioxide Anion Gap BUN Creatinine Estim Creat Clear Calc Estimated GFR Glucose POC Capillary Glucose 136 H 139 H Lactic Acid 0.9 Calcium Phosphorus Total Bilirubin AST ALT Alkaline Phosphatase Total Protein Albumin 10/04/24 10/04/24 10/05/24 16:44 21:27 05:50 WBC 9.9 RBC 3.37 L Hgb 9.9 L Hct 31.3 L MCV 92.9 MCH 29.4 MCHC 31.6 L RDW 14.6 H Plt Count 130 L MPV 10.1 Sodium 134 L Potassium 3.8 Chloride 102 Carbon Dioxide 22 Anion Gap 10 BUN 94 H Creatinine 3.54 H Estim Creat Clear Calc 16 Estimated GFR 16 L Glucose 125 H POC Capillary Glucose 154 H 161 H Lactic Acid Calcium 8.4 Phosphorus 3.4 Total Bilirubin 0.8 AST 34 ALT 25 Alkaline Phosphatase 69 Total Protein 6.1 L Albumin 3.0 L Quality VTE Prophylaxis VTE prophylaxis: pharmacologic ordered (Heparin 5000 units subQ q.12 hours.)
[2024-10-05] MEDS: PANTOPRAZOLE SODIUM IV 40 MG VIAL IV PUSH (09:54)
[2024-10-05 10:02] VITALS: BP 152/65; PULSE 85; RESP 18; O2SAT 95
--- NOTE | 2024-10-05 11:02 | PM.PNNEP ---
Progress Note: A&P Assessment and Plan (1) Acute kidney injury: Code(s): N17.9 - Acute kidney failure, unspecified Status: Acute Assessment and Plan: fluctuations noted as noted on admission complicated by significant azotemia/elevated BUN mild improvement in creatinine but BUN still elevated by repeat labs agree with holding diuretics and trial of IVFs follow respiratory status closely given hx of CHF evaluation to date noted: admission CT of A/P with no suspicious mass, obstructing stone, or hydronephrosis prerenal urine electrolytes (by FeUrea) urine eosinophils negative mild proteinuria normal/low CPK UA without evidence of infection suspect multifactorial etiology: prerenal factors overdiuresis(?) infection (bacteremia +/- gallbladder issues/cholecystitis) other(?) follow trend of repeat labs and UOP (2) Stage 4 chronic kidney disease: Code(s): N18.4 - Chronic kidney disease, stage 4 (severe) Status: Chronic Assessment and Plan: slow and progressive decline noted GFR ~ 22 to 23 in GFR ~ 20 to 21 in GFR ~ 18 by July 2024 labs creatinine has been running anywhere from 2.4 - 3.2mg/dl in the last 6 months creatinine on 09/27/24 (outpatient labs) = 3.93mg/dl (GFR 15) most likely due to diabetes and hypertension + chronic diuretic therapy (3) Azotemia: Code(s): R79.89 - Other specified abnormal findings of blood chemistry Status: Acute Assessment and Plan: slow improvement noted noted on admission suspected related to diuretic therapy no evidence of GI bleed no other culprit medications follow trend of BUN (4) Bacteremia: Code(s): R78.81 - Bacteremia Status: Acute Assessment and Plan: positive blood culture noted source?? -- from gallbladder(?) on antibiotics follow repeat blood cultures (5) Gallbladder hydrops: Code(s): K82.1 - Hydrops of gallbladder Status: Acute Assessment and Plan: CT of A/P without overt acute cholecystitis however, does have significant right upper quadrant pain on palpation with nausea and decreased oral intake RUQ ultrasound results noted as well LFTs normal GI and Surgery recommendations noted noted plan for cholecystostomy tube placement for presumed cholecystitis today continue supportive therapy (6) Anemia: Code(s): D64.9 - Anemia, unspecified Status: Acute Assessment and Plan: due to combo of LEROY, CKD, acute illness/infection and possibly IVFs follow trend of H/H (7) Hypertension: Code(s): I10 - Essential (primary) hypertension Status: Chronic Assessment and Plan: reasonable control follow trend of hemodynamics (8) Type 2 diabetes mellitus with hyperglycemia, without long-term current use of insulin: Code(s): E11.65 - Type 2 diabetes mellitus with hyperglycemia Status: Chronic Assessment and Plan: follow accu-cheks glycemic control per hospitalist Will continue to follow. Subjective Date/time seen: 10/05/24 11:02 Interval history: Follow-up for acute kidney injury/acute renal failure on chronic kidney disease. Noted plans for cholecystostomy tube placement by IR this afternoon; still with intermittent RUQ pain but no nausea, blood culture results noted with antibiotic therapy initiated; BUN continue to improve but creatinine has worsened; back on IVFs since NPO; no other issues/events overnight or earlier this morning Exam Narrative: General: elderly but WD/WN male in NAD Heart: normal S1 and S2; no rub Lungs: clear anteriorly Abdomen: soft, +TTP in RUQ; nondistended, positive bowel sounds Extremities: no cyanosis or clubbing; trace - 1+ edema Skin: no nodules Objective Data Vital Signs Vital Signs: Vital Signs Temp Pulse Resp BP Pulse Ox O2 Del Method 10/05/24 10:32 98.2 F 82 16 148/64 H 96 Room Air 10/05/24 10:02 85 18 152/65 H 95 10/05/24 04:00 98.1 F 72 12 155/62 H 95 10/05/24 00:00 98.8 F 60 14 126/52 L 94 10/04/24 20:00 98.6 F 62 16 114/55 L 96 10/04/24 20:00 Room Air 10/04/24 18:21 98.3 F 73 18 138/51 L 97 Intake/Output Intake/Output: Intake & Output 10/02/24 10/03/24 10/04/24 10/05/24 23:59 23:59 23:59 23:59 Intake Total 4708.8 2320.3 1230 2100 Output Total 900 250 735 Balance 3808.8 2320.3 980 1365 Meds/Results Medications: Active Medications Generic Name Dose Route Start Last Admin Trade Name Freq PRN Reason Stop Dose Admin Acetaminophen 650 mg 09/30/24 19:02 10/05/24 16:42 Acetaminophen 325 Mg Tablet PO 650 mg Q4H PRN Administration Mild Pain (1-3) or Fever Albuterol 2 puff 10/03/24 15:40 10/04/24 09:06 Albuterol Sulfate (*Sp) Aerosol 1 Puff INHALATION 2 puff Q6HRT PRN Administration Shortness Of Breath Or Wheezing Clopidogrel Bisulfate 75 mg 10/01/24 09:00 10/04/24 08:22 Clopidogrel Bisulfate 75 Mg Tablet PO 75 mg DAILY VU Administration Dextrose 12.5 gm 09/30/24 20:29 Dextrose 50% 25 Gm/50 Ml Syringe IV PUSH PRN PRN Hypoglycemia Protocol Docusate Sodium 100 mg 10/01/24 09:00 10/05/24 09:42 Docusate Sodium 100 Mg Capsule PO Not Given DAILY VU Ezetimibe 10 mg 10/01/24 09:00 10/05/24 09:42 Ezetimibe 10 Mg Tablet PO Not Given DAILY VU Famotidine 20 mg 09/30/24 21:00 10/05/24 09:41 Famotidine 20 Mg Tablet PO Not Given Q12HR VU Finasteride 5 mg 10/01/24 09:00 10/05/24 09:41 Finasteride 5 Mg Tablet PO Not Given DAILY [facility] Fluticasone Propionate 2 spray 09/30/24 20:28 10/03/24 20:55 Fluticasone Propionate 0.05% Na Spr 16 Gm Btl (*Bkc) NASAL 2 spray DAILY PRN Administration allergy symptoms Glucagon 1 mg 09/30/24 20:29 Glucagon For Inj 1 Mg Vial IM PRN PRN Hypoglycemia Protocol Glucose 15 gm 09/30/24 20:29 Glucose Oral Gel 15 Gm Of Glucse In 37.5 Gm Tube PO PRN PRN Hypoglycemia Protocol Heparin Sodium (Porcine) 5,000 units 09/30/24 21:00 10/05/24 09:54 Heparin Sodium 5,000 Units/Ml Vial SUB-Q 5,000 units Q12HR VU Administration Dextrose 1,000 mls @ 100 mls/hr 09/30/24 20:29 Dextrose 5% 1,000 Ml IVPB PRN PRN Hypoglycemia Protocol Metronidazole 500 mg in 100 mls @ 100 mls/hr 10/04/24 13:00 10/05/24 16:29 Flagyl 500 Mg/Iso Soln 100 Ml IVPB 100 mls/hr Q8HR VU Administration Ceftriaxone Sodium 2 gm in 100 mls @ 200 mls/hr 10/04/24 12:00 10/05/24 12:38 Rocephin 2 Gm/Ns 100 Ml IVPB 200 mls/hr Q24H VU Administration Sodium Chloride 1,000 mls @ 75 mls/hr 10/04/24 13:50 10/05/24 16:30 Normal Saline Iv IV CONT 100 mls/hr .[id number] VU Administration Insulin Aspart 1 - 3 units 09/30/24 21:00 10/04/24 21:42 Insulin Aspart (*Bkc) 100 Units/Ml SUB-Q Not Given HS [facility] Protocol Insulin Aspart 3 - 6 units 10/01/24 08:00 10/05/24 16:52 Insulin Aspart (*Bkc) 100 Units/Ml SUB-Q Not Given TIDWM [facility] Protocol Morphine Sulfate 15 mg 09/30/24 20:28 10/04/24 20:17 Morphine Sulfate (*Crx) 15 Mg Tab Ir PO 15 mg Q8H PRN Administration pain 7-10 Ondansetron HCl 4 mg 09/30/24 19:02 10/02/24 18:18 Ondansetron Inj 4 Mg/2 Ml Vial IV PUSH 4 mg Q4H PRN Administration Nausea Pantoprazole Sodium 40 mg 10/06/24 09:00 Pantoprazole Sodium Iv 40 Mg Vial IV PUSH QAM [facility] Polyethylene Glycol 17 gm 10/01/24 21:11 Polyethylene Glycol 3350 17 Gm Powd.Pack PO DAILY PRN Constipation Vancomycin HCl 1 each 10/05/24 12:38 Vancomycin For Acute Kidney Injury IVPB PRN PRN Vancomycin Protocol Verapamil HCl 120 mg 09/30/24 21:00 10/05/24 09:41 Verapamil Hcl 120 Mg Tablet Immed Release PO Not Given Q12HR [facility] Radiology Results: ITS Impressions Abdomen/Pelvis CT 09/30/24 19:00 IMPRESSION: Gallbladder hydrops without inflammatory change. Dilated common bile duct, measuring 14 mm. No obstructing stone or mass detected. Correlate with biliary labs. 3.4 cm fusiform infrarenal abdominal aortic aneurysm. Consider follow-up in 3 years. Upper Quadrant Ultrasound 10/01/24 08:43 IMPRESSION: 1. Cholelithiasis with a normal-appearing gallbladder but with mild intra and extrahepatic biliary ductal dilation which raises concern for a nonvisualized distal obstructing choledocholithiasis. Correlate with liver function tests and if clinically indicated could consider further evaluation with either MRCP or ERCP. Chest X-Ray 10/03/24 19:24 IMPRESSION: Cardiomegaly with cardiac decompensation and pulmonary edema. Pneumonitis is not excluded. Hepatobiliary Scan Nuclear Medicine 10/05/24 08:35 IMPRESSION: 1. No evident gallbladder activity consistent with acute cholecystitis. Labs Labs: Laboratory Tests 10/05/24 05:50 10/05/24 05:50 Calcium 8.4 Phosphorus 3.4 Total Bilirubin 0.8 AST 34 ALT 25 Alkaline Phosphatase 69 Total Protein 6.1 L Albumin 3.0 L Microbiology 10/04/24 13:05 Blood Blood Culture - Preliminary Gram positive cocci in chains 10/04/24 12:56 Blood Blood Culture - Preliminary Gram positive cocci in chains
[2024-10-05] MEDS: cefTRIAXone 2 GM/NS 100 ML 2 GM/100 ML BAG IVPB (12:38)
[2024-10-05 13:25] LABS: INR 1.1; Prothrombin Time 13.7 Seconds (11.1-14.7)
[2024-10-05 13:26] LABS: Partial Thromboplastin Time 36.2 Seconds (22.3-36.8)
[2024-10-05] MEDS: VANCOMYCIN 1,500 MG/NS 500 ML 1,500 MG/500 ML BAG 250 MG IVPB (13:39)
--- NOTE | 2024-10-05 13:49 | PC.NURSE ---
RN called patient's spouse to inform about drain placement, but no one answered.
[2024-10-05 14:32] VITALS: BP 148/64; PULSE 82; RESP 16; TEMP 36.8; O2SAT 96
--- NOTE | 2024-10-05 15:34 | PC.NURSE ---
Patient down to radiology for drain placement at 1526.
--- NOTE | 2024-10-05 16:38 | PC.NURSE ---
Patient returned to floor 1625.
[2024-10-05] MEDS: ACETAMINOPHEN 325 MG TABLET 650 MG PO (16:42)
[2024-10-05 20:00] VITALS: BP 132/58; PULSE 73; RESP 16; TEMP 36.7; O2SAT 96
[2024-10-05] MEDS: VERAPAMIL HCL 120 MG TABLET IMMED RELEASE PO (20:21)
[2024-10-05] MEDS: FAMOTIDINE 20 MG TABLET PO (20:21)
[2024-10-06] VITALS (7 sets, daily range): BP systolic 114–156; BP diastolic 51–63; PULSE 60–98; RESP 16–18; TEMP 36.4–37; O2SAT 74–99
[2024-10-06 05:36] LABS: Hematocrit 35.4 % (42.0-52.0); Hemoglobin 10.8 g/dL (14.0-18.0); Mean Corpuscular HGB Conc 30.5 g/dl (32-36); Mean Corpuscular Hemoglobin 29.6 pg (26-34); Mean Corpuscular Volume 97.0 fl (80-100); Platelet Count Result 172 k/mm3 (150-375); Red Blood Count 3.65 M/mm3 (4.6-6.20); White Blood Count 10.9 K/mm3 (4.5-10.0)
[2024-10-06] MEDS: metroNIDAZOLE 500 MG/ISO 100ML 500 MG/100 ML BAG 100 MG IVPB ×3 (05:57→21:30)
[2024-10-06 06:16] LABS: Alanine Aminotransferase 28 U/L (6-50); Bilirubin,Total 0.9 mg/dL (0.2-1.3); Calcium 7.9 mg/dL (8.4-10.2); Carbon Dioxide 15 mmol/L (22-30); Glucose 139 mg/dL (65-110)
[2024-10-06 06:17] LABS: Anion Gap 11 mmol/L (4-12); Blood Urea Nitrogen 84 mg/dL (9-20); Chloride 106 mmol/L (98-107); Estimated CRCL calculation 20 ml/min; Estimated Glomerular Filt Rate 21; Sodium 132 mmol/L (137-145)
[2024-10-06 06:25] LABS: Albumin Level 2.7 g/dL (3.5-5.1); Alkaline Phosphatase 78 U/L (38-126); Aspartate Amino Transferase 37 U/L (17-59); Potassium 3.8 mmol/L (3.4-5.0); Total Protein 5.5 g/dL (6.3-8.2)
[2024-10-06] MEDS: SODIUM CHLORIDE 0.9% IV 1,000 ML 75 ML IV CONT (08:55)
[2024-10-06] MEDS: EZETIMIBE 10 MG TABLET PO (08:56)
[2024-10-06] MEDS: FINASTERIDE 5 MG TABLET PO (08:56)
[2024-10-06] MEDS: DOCUSATE SODIUM 100 MG CAPSULE PO (08:56)
[2024-10-06] MEDS: VERAPAMIL HCL 120 MG TABLET IMMED RELEASE PO ×2 (08:56→21:29)
[2024-10-06] MEDS: PANTOPRAZOLE SODIUM IV 40 MG VIAL IV PUSH (08:56)
[2024-10-06] MEDS: MORPHINE SULFATE (*CRX) 15 MG TAB IR PO ×2 (08:56→16:44)
[2024-10-06] MEDS: FAMOTIDINE 20 MG TABLET PO ×2 (08:56→21:29)
--- NOTE | 2024-10-06 09:59 | PCPTNOTE ---
Pt refused physical therapy this AM, will attempt this afternoon if time allows.
--- NOTE | 2024-10-06 11:50 | P.PNNP_ITS ---
Progress Note: A&P Assessment and Plan (1) Acute kidney injury: Code(s): N17.9 - Acute kidney failure, unspecified Status: Acute Assessment and Plan: * slwo improvement noted * as noted on admission * complicated by significant azotemia/elevated BUN * mild improvement in creatinine but BUN still elevated by repeat labs * agree with holding diuretics and trial of IVFs * follow respiratory status closely given hx of CHF * evaluation to date noted: * admission CT of A/P with no suspicious mass, obstructing stone, or hydronephrosis * prerenal urine electrolytes (by FeUrea) * urine eosinophils negative * mild proteinuria * normal/low CPK * UA without evidence of infection * suspect multifactorial etiology: * prerenal factors * overdiuresis(?) * infection (bacteremia + cholecystitis) * other(?) * follow trend of repeat labs and UOP (2) Stage 4 chronic kidney disease: Code(s): N18.4 - Chronic kidney disease, stage 4 (severe) Status: Chronic Assessment and Plan: * slow and progressive decline noted * GFR ~ 22 to 23 in 2020/2021 * GFR ~ 20 to 21 in 2022/2023 * GFR ~ 18 by July 2024 labs * creatinine has been running anywhere from 2.4 - 3.2mg/dl in the last 6 months * creatinine on 09/27/24 (outpatient labs) = 3.93mg/dl (GFR 15) -- but this may have related to acute medical issues currently * most likely due to diabetes and hypertension + chronic diuretic therapy (3) Azotemia: Code(s): R79.89 - Other specified abnormal findings of blood chemistry Status: Acute Assessment and Plan: * slow improvement noted * noted on admission * suspected related to diuretic therapy * no evidence of GI bleed * no other culprit medications * follow trend of BUN (4) Bacteremia: Code(s): R78.81 - Bacteremia Status: Acute Assessment and Plan: * blood culture results noted: * 10/04 blood cultures - Enterococcus faecalis * 10/05 blood cultures - Gram positive cocci in chains * source?? -- from gallbladder(?) * follow-up on bile culture * on antibiotics * follow repeat blood cultures (5) Gallbladder hydrops: Code(s): K82.1 - Hydrops of gallbladder Status: Acute Assessment and Plan: * CT of A/P without overt acute cholecystitis * however, does have significant right upper quadrant pain on palpation with nausea and decreased oral intake * RUQ ultrasound results noted as well * LFTs normal * GI and Surgery recommendations noted * s/p cholecystostomy tube placement (on 10/05) * continue supportive therapy (6) Anemia: Code(s): D64.9 - Anemia, unspecified Status: Acute Assessment and Plan: * due to combo of LEROY, CKD, acute illness/infection and possibly previous IVFs * follow trend of H/H (7) Hypertension: Code(s): I10 - Essential (primary) hypertension Status: Chronic Assessment and Plan: * reasonable control * follow trend of hemodynamics (8) Type 2 diabetes mellitus with hyperglycemia, without long-term current use of insulin: Code(s): E11.65 - Type 2 diabetes mellitus with hyperglycemia Status: Chronic Assessment and Plan: * follow accu-cheks * glycemic control per hospitalist Will continue to follow. L Subjective Date/time seen: 10/06/24 11:50 Interval history: Follow-up for acute kidney injury/acute renal failure on chronic kidney disease. S/P cholecystostomy tube placement by IR yesterday afternoon and tolerated this procedure reasonably well; mild discomfort at insertion site of cholecystostomy tube but tolerable and pain medications are helping with this; no other acute complaints voiced at this time; improvement in renal function/creatinine as well as BUN noted by AM labs. Exam 2 Narrative: General: elderly but WD/WN male in NAD Heart: normal S1 and S2; no rub Lungs: clear anteriorly Abdomen: soft, nontender, nondistended, positive bowel sounds Extremities: no cyanosis or clubbing; trace edema Skin: warm and dry Objective Data Vital Signs Vital Signs: Vital Signs Temp Pulse Resp BP Pulse Ox O2 Del Method 10/06/24 10:53 98.1 F 61 16 121/51 L 96 10/06/24 09:00 Room Air 10/06/24 06:49 98.6 F 98 16 136/53 L 74 L 10/06/24 04:00 98.0 F 66 18 156/63 H 99 10/06/24 00:00 98.0 F 71 16 114/53 L 99 10/05/24 20:00 98.1 F 73 16 132/58 L 96 10/05/24 20:00 Room Air Intake/Output Intake/Output: Intake & Output 10/03/24 10/04/24 10/05/24 10/06/24 23:59 23:59 23:59 23:59 Intake Total 2320.3 1230 2620 1800 Output Total 982 996 1446 Balance 2320.3 980 1685 225 Meds/Results Medications: Active Medications Generic Name Dose Route Start Last Admin Trade Name Freq PRN Reason Stop Dose Admin Acetaminophen 650 mg 09/30/24 19:02 10/06/24 13:40 Acetaminophen 325 Mg Tablet PO 650 mg Q4H PRN Administration Mild Pain (1-3) or Fever Albuterol 2 puff 10/03/24 15:40 10/04/24 09:06 Albuterol Sulfate (*Sp) Aerosol 1 Puff INHALATION 2 puff Q6HRT PRN Administration Shortness Of Breath Or Wheezing Clopidogrel Bisulfate 75 mg 10/01/24 09:00 10/04/24 08:22 Clopidogrel Bisulfate 75 Mg Tablet PO 75 mg DAILY VU Administration Dextrose 12.5 gm 09/30/24 20:29 Dextrose 50% 25 Gm/50 Ml Syringe IV PUSH PRN PRN Hypoglycemia Protocol Docusate Sodium 100 mg 10/01/24 09:00 10/06/24 08:56 Docusate Sodium 100 Mg Capsule PO 100 mg DAILY VU Administration Ezetimibe 10 mg 10/01/24 09:00 10/06/24 08:56 Ezetimibe 10 Mg Tablet PO 10 mg DAILY VU Administration Famotidine 20 mg 09/30/24 21:00 10/06/24 08:56 Famotidine 20 Mg Tablet PO 20 mg Q12HR VU Administration Finasteride 5 mg 10/01/24 09:00 10/06/24 08:56 Finasteride 5 Mg Tablet PO 5 mg DAILY VU Administration Fluticasone Propionate 2 spray 09/30/24 20:28 10/06/24 13:39 Fluticasone Propionate 0.05% Na Spr 16 Gm Btl (*Bkc) NASAL 2 spray DAILY PRN Administration allergy symptoms Glucagon 1 mg 09/30/24 20:29 Glucagon For Inj 1 Mg Vial IM PRN PRN Hypoglycemia Protocol Glucose 15 gm 09/30/24 20:29 Glucose Oral Gel 15 Gm Of Glucse In 37.5 Gm Tube PO PRN PRN Hypoglycemia Protocol Heparin Sodium (Porcine) 5,000 units 09/30/24 21:00 10/06/24 08:56 Heparin Sodium 5,000 Units/Ml Vial SUB-Q 5,000 units Q12HR VU Administration Dextrose 1,000 mls @ 100 mls/hr 09/30/24 20:29 Dextrose 5% 1,000 Ml IVPB PRN PRN Hypoglycemia Protocol Metronidazole 500 mg in 100 mls @ 100 mls/hr 10/04/24 13:00 10/06/24 13:36 Flagyl 500 Mg/Iso Soln 100 Ml IVPB 100 mls/hr Q8HR VU Administration Ceftriaxone Sodium 2 gm in 100 mls @ 200 mls/hr 10/04/24 12:00 10/06/24 12:27 Rocephin 2 Gm/Ns 100 Ml IVPB 200 mls/hr Q24H VU Administration Insulin Aspart 1 - 3 units 09/30/24 21:00 10/05/24 20:21 Insulin Aspart (*Bkc) 100 Units/Ml SUB-Q Not Given HS VU Protocol Insulin Aspart 3 - 6 units 10/01/24 08:00 10/06/24 13:44 Insulin Aspart (*Bkc) 100 Units/Ml SUB-Q 3 units TIDWM VU Administration Protocol Morphine Sulfate 15 mg 09/30/24 20:28 10/06/24 08:56 Morphine Sulfate (*Crx) 15 Mg Tab Ir PO 15 mg Q8H PRN Administration pain 7-10 Ondansetron HCl 4 mg 09/30/24 19:02 10/02/24 18:18 Ondansetron Inj 4 Mg/2 Ml Vial IV PUSH 4 mg Q4H PRN Administration Nausea Pantoprazole Sodium 40 mg 10/07/24 09:00 Pantoprazole 40 Mg Tablet PO QAM VU Polyethylene Glycol 17 gm 10/01/24 21:11 10/06/24 08:56 Polyethylene Glycol 3350 17 Gm Powd.Pack PO 17 gm DAILY PRN Administration Constipation Sodium Chloride 500 mg 10/06/24 17:00 Sodium Chloride 500 Mg Tablet PO BID VU Vancomycin HCl 1 each 10/05/24 12:38 Vancomycin For Acute Kidney Injury IVPB PRN PRN Vancomycin Protocol Verapamil HCl 120 mg 09/30/24 21:00 10/06/24 08:56 Verapamil Hcl 120 Mg Tablet Immed Release PO 120 mg Q12HR VU Administration Radiology Results: ITS Impressions Abdomen/Pelvis CT 09/30/24 19:00 IMPRESSION: Gallbladder hydrops without inflammatory change. Dilated common bile duct, measuring 14 mm. No obstructing stone or mass detected. Correlate with biliary labs. 3.4 cm fusiform infrarenal abdominal aortic aneurysm. Consider follow-up in 3 years. Upper Quadrant Ultrasound 10/01/24 08:43 IMPRESSION: 1. Cholelithiasis with a normal-appearing gallbladder but with mild intra and extrahepatic biliary ductal dilation which raises concern for a nonvisualized distal obstructing choledocholithiasis. Correlate with liver function tests and if clinically indicated could consider further evaluation with either MRCP or ERCP. Chest X-Ray 10/03/24 19:24 IMPRESSION: Cardiomegaly with cardiac decompensation and pulmonary edema. Pneumonitis is not excluded. Hepatobiliary Scan Nuclear Medicine 10/05/24 08:35 IMPRESSION: 1. No evident gallbladder activity consistent with acute cholecystitis. Cholecystostomy 10/05/24 16:57 IMPRESSION: 1. Successful ultrasound-guided cholecystostomy tube placement. 2. 35 mL bile was sent for aerobic, anaerobic, and fungal cultures. 3. The catheter will be managed by Dr. Brennan. Labs Labs: Laboratory Tests 10/06/24 05:31 10/06/24 05:31 Calcium 7.9 L Phosphorus 3.3 Total Bilirubin 0.9 AST 37 ALT 28 Alkaline Phosphatase 78 Total Protein 5.5 L Albumin 2.7 L Microbiology 10/05/24 12:45 Blood Blood Culture - Preliminary Gram positive cocci in chains 10/04/24 13:05 Blood Blood Culture - Final Enterococcus faecalis 10/05/24 16:15 Gallbladder Anaerobic Culture - Preliminary 10/04/24 12:56 Blood Blood Culture - Preliminary Enterococcus faecalis 10/05/24 12:47 Blood Blood Culture - Preliminary
[2024-10-06] MEDS: cefTRIAXone 2 GM/NS 100 ML 2 GM/100 ML BAG IVPB (12:27)
--- NOTE | 2024-10-06 12:37 | PM.IMPN ---
Progress Note: A&P Assessment and Plan (1) Chest pain: Qualifiers: Chest pain type: unspecified Qualified Code(s): R07.9 - Chest pain, unspecified Code(s): R07.9 - Chest pain, unspecified Status: Acute Assessment and Plan: -Chest pain seems atypical in nature, pt continue to deny CP. -Troponin are elevated but flat. Will complete troponin series. -Pain seems more consistent with GI cause with reported indigestion and significant right upper quadrant pain. -Will continue Antihypertensives and Plavix. -->HOLD Plavix starting 10/05 for eventual lap torrie per surg (2) Acute kidney injury superimposed on CKD: Code(s): N17.9 - Acute kidney failure, unspecified; N18.9 - Chronic kidney disease, unspecified Status: Acute Assessment and Plan: Patient has chronic kidney disease stage 4 with acute kidney injury. Most likely prerenal due to intervascular volume depletion. - Hold Lasix and continue IV fluid hydration at 75ml/hr. - Nephrology was consulted from the ER. - Continue flomax 10/02- cr/bun 2.96/100 10/03: Cr/BUN: 3.26/91, pending neph rounds due to worsening Cr 10/04: Cr/BUN: 3.43/90, Started IVF again today, continue to hold lasix 10/05: Cr/BUN: 3.54/[address] Lopez today, he believes that once the torrie tube is placed and with IV abx on board, kidney labs should begin to normalize back to pt baseline which is CKD4. Will continue to monitor levels. Dr. Lopez on for the weekend. 10/06: Cr/BUN: 2.84/84, starting to trend down, will continue to monitor daily IVF D/C due to better trending kidneys, lasix still on hold (no pulm congestion), and adequate intake. (3) Acute uremia: Code(s): N19 - Unspecified kidney failure Status: Acute Assessment and Plan: Possibly due to hypovolemia. GI bleed is less likely given patient's hemoglobin is stable at 12 in ED and patient denies symptoms of hematemesis hematochezia or melena. Pt continues to deny any blood loss. -Will hold Lasix and continue IV fluid hydration and repeat CBC and electrolyte panel in a.m. -Decrease IV fluids to 50 ml and monitor I/O closely 10/03: -H/H as of 10/03: 9.6/30.5 -Pt appetite still decreased, continue IVF 50/hr 10/04: -H/H 9.8/30.5 -Started again on IVF to try to normalize creat, pt will be NPO at [facility] anyway for procedure tomorrow. 10/05: -H/H 9.9/31.3 -IVF down to 75 ml/hr for NPO status and to avoid pulm edema Spoke to Dr. Lopez today, he believes that once the torrie tube is placed and with IV abx on board, kidney labs should begin to normalize back to pt baseline which is CKD4. Will continue to monitor levels. Dr. Lopez on for the weekend. 10/06: -H/H 10.8/35.4 -IVF stopped today (4) Gallbladder hydrops: Code(s): K82.1 - Hydrops of gallbladder Status: Acute Assessment and Plan: CT does not suggest overt acute cholecystitis but patient does have significant kit right upper quadrant pain on palpation and worsening of his nausea with palpation of right upper quadrant. -RUQ US for better visualization of the gallbladder: 1. Cholelithiasis with a normal-appearing gallbladder but with mild intra and extrahepatic biliary ductal dilation which raises concern for a nonvisualized distal obstructing choledocholithiasis. Correlate with liver function tests and if clinically indicated could consider further evaluation with either MRCP or ERCP. -->Consulted GI 10/03, pending recs/rounding -Bilirubin and transaminases are normal. -Patient does have some leukocytosis but no fever. -Will hold off on adding antibiotic coverage at this time and will repeat CBC in a.m. 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 His symptoms are likely related to his gallbadder and there is concern for choledocholithiasis given his common bile duct dilatation on imaging. Since his Plavix has been continued, he would not be a candidate for a laparoscopic cholecystectomy at this time. He received his last dose of Plavix this morning, which I have put on hold. Since he continues to have symptoms, we would recommend proceeding with percutaneous cholecystostomy tube placement to treat his cholecystitis. We will eventually consider proceeding with a laparoscopic cholecystectomy with intraoperative cholangiogram to evaluate for choledocholithiasis, but this will be at a later date, possibly as an outpatient depending on how he is progressing medically, when his Plavix can be held for an adequate amount of time. This would also allow time for improved medical optimization in regards to his renal failure and pulmonary edema. Will repeat labs tomorrow and include a CMP to re-evaluate his liver enzymes. Although his WBC count has been trending down, I will also start him on broad-spectrum IV antibiotics to cover for cholecystitis/cholangitis given his persistent pain/fever/leukocytosis. Plavix has been continued since his admission. He received a dose this morning. Will hold his Plavix now, which ideally is held for 5 days prior to a cholecystectomy. -->Plan for torrie tube placement tomorrow, surg started ceftriaxone and flagyl today 10/05: HIDA scan and cholecystectomy tube placement today. Low fat diet started after procedure. Will continue to monitor tube and daily AM labs. 10/06: Pt looking a lot better since tube placement yesterday. Pt reporting some pain in his RLQ and tube insertion site but per pt his morphine home dose has been taking care of the pain. -Per surg note today: Cholecystostomy tube placed yesterday. Having pain at drain site. Cholecystostomy tube will alleviate acute cholecystitis. Will not help if patient has cholangitis. Although the bile ducts are dilated, liver function tests are normal. Cholangitis seems unlikely. Bacteremia: Receiving appropriate antibiotics with vancomycin and cefepime. Pending susceptibility testing on the Enterococcus (5) Type 2 diabetes mellitus with hyperglycemia, without long-term current use of insulin: Code(s): E11.65 - Type 2 diabetes mellitus with hyperglycemia Status: Acute Assessment and Plan: Hold Actos -Moderate dose sliding scale insulin with Accu-Cheks a.c. HS and hypoglycemia protocol. -Glucose has been stable during stay (6) Chronic pain: Qualifiers: Chronic pain type: chronic pain syndrome Qualified Code(s): G89.4 - Chronic pain syndrome Code(s): G89.29 - Other chronic pain Status: Acute Assessment and Plan: Will resume patient's home morphine 15 mg Q 8 hours p.r.n. pain 7-10. (7) Abdominal aortic aneurysm (AAA) 3.0 cm to 5.5 cm in diameter in male: Code(s): I71.40 - Abdominal aortic aneurysm, without rupture, unspecified Status: Acute Assessment and Plan: Likely chronic will defer follow-up to patient's primary care provider for serial imaging (8) Antiplatelet or antithrombotic long-term use: Code(s): Z79.02 - group home (current) use of antithrombotics/antiplatelets Status: Acute Assessment and Plan: Pt with hx of pacemaker and plavix long-term use. Per surg: Plavix has been continued since his admission. He received a dose this morning. Will hold his Plavix now, which ideally is held for 5 days prior to a cholecystectomy. (9) Bacteremia: Code(s): R78.81 - Bacteremia Status: Acute Assessment and Plan: 10/05: Both blood cultures resulted today with Gram + cocci in chains -->Spoke with [facility] pharm, reports could be either strep strain (covered by Ceftriaxone) or Entero strain (covered by Vanc) --->Will start vanc today to treat if ends up being entero strain to get ahead of the infection, will f/u tomorrow for final reads -Pt on Ceftriaxone 2g already via surg for low grade fevers and leukocytosis, will continue. -Ordered echo 10/05 to r/o endocarditis -Also repeat order for BC placed today 10/06: X1 BC final result yielding enterococcus faecalis, will continue with vanc, pending second final BC result -Will continue to trend BCs (10) Hyponatremia: Code(s): E87.1 - Hypo-osmolality and hyponatremia Status: Acute Assessment and Plan: Levels have been low since admission despite IVF NS. -Will start sodium chl tablets today to normalize -Will continue to trend pt status and daily labs Plan Torrie tube placement 10/05, continue to monitor pt with labs, VS, and pain control. Surg started IV abx 10/04 and also paused Plavix starting 10/05 for eventual lap torrie. F/u with BC final result tomorrow, vanc started 10/05 due to prelim result of Gram+ cocci chains and one final of enterococcus faecalis, will continue vanc. Subjective Date/time seen: 10/06/24 1421 Interval history: 88-year-old male with a past medical history of heart valve replacement, CHF, chronic kidney disease, BPH, type 2 diabetes mellitus and chronic pain who presented to the ER via EMS from home due to nausea, abdominal pain and chest pain for 3 days. The patient reports that he has been having initial symptoms of abdominal pain of his generalized for the last 3 days. In ED- BUN of 120 creatinine 3.86. He was hyperglycemic in the ER. Pt is seen and examined.He denies any chest pain, feels overall tired and somewhat nauseated. 10/02 - pt is seen and examined. He is very weak, unable to do much on his own. No abd pain, no nausea today. Cr elevated overnight- nephrology following. 10/03: Pt continues to report RUQ abd pain, nausea, and decreased appetite. pt denies CP. Pt is confused why he is still having pain, I updated him that his abd US showed that he may have a gallstone that may be trapped in his bile duct today and that may be why he is still in pain. Updated him on the plan for GI to come see him to discuss further steps, pt agreeable with the plan. Pt encouraged to keep trying to eat and drink fluids, continue IVF as of now. 10/04: Pt reports that his RUQ pain today is mildly worse, but denies any nausea and he states I have not had any of that for some time now. Updated him on the plan from GI for surgery to consult due to the need of a lap torrie to visualize the probable stone due to not being able to obtain an MRCP because he has a pacemaker. Upon exam today, pt drowsy, but awakens to verbal stimuli. I spoke to on the phone and she states that his drowsiness state is baseline. 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 Reiterated plan for surgery to consult on plan which they recommended proceeding with percutaneous cholecystostomy tube placement to treat his cholecystitis due to being on his Plavix. 10/05: Pt sleeping when entered room, awakens to verbal stimuli. Pt continues to report mild RUQ pain and deny nausea. Updated him on the plan for additional imaging today as well as a torrie tube placement, pt agreeable with the plan. Transport here to get pt now. 10/06: Pt more alert today, , Nallely, at the bedside. Pt sitting up in chair. Reporting pain to insertion site of Torrie tube, but reports that his morphine he gets at baseline has been helping with that pain. Pt denies SOB/CP, increased BLE edema, or any other sx. Review of Systems Review of Systems: 12 systems were reviewed with pertinent positives and negatives per HPI. Except as documented in the HPI, all other systems were reviewed and are negative. Exam Const: General: comfortable Other: No acute distress, well-developed, obese, appears stated age HENMT: Face/Nose/Sinus: Normal nares present Mouth: Yes moist mucous membranes Other: Upper and lower dentures in place Eyes: General: appearance normal, both eyes and all related structures Sclera: sclerae normal Other: Bilateral lens replacements noted - R 4mm, L 3mm pupils, no conjunctival pallor, no scleral icterus Neck: Other: Large neck circumference, no JVD, loss of cervical lordosis Resp: Effort & Inspection: normal respiratory effort Auscultation: clear to auscultation bilaterally Other: Clear to auscultation bilaterally, no increased work of breathing Cardio: Rate: regular rate Rhythm: regular rhythm Other: Regular rate, regular rhythm, no murmur, 2+ bilateral radial and pedal pulses GI: Inspection: non-distended Auscultation: normal bowel sounds Other: Mild TTP to torrie tube insertion site and RLQ Torrie tube with bile colored drainage, minimal Skin: General skin exam: normal color and No rashes Rashes: no rashes noted Neuro: Other: A&O x4, speech is clear, mild hearing loss, no localizing neurologic deficit noted during the course of conversation. Extrem: General: normal to inspection Other: 5/5 mechanical service representative strength bilaterally, trace edema right lower extremity 1+ edema left lower extremity Psych: Affect: normal affect Other: Flat affect, cooperative, appropriate insight and judgment Objective Data Vital Signs Vital Signs: Vital Signs - 24 hr 10/05/24 14:32 10/05/24 20:00 10/05/24 20:00 Temperature 98.2 F 98.1 F Pulse Rate 82 73 Respiratory Rate 16 16 Blood Pressure 148/64 H 132/58 L Pulse Oximetry 96 96 Oxygen Delivery Room Air 10/06/24 00:00 10/06/24 04:00 10/06/24 06:49 Temperature 98.0 F 98.0 F 98.6 F Pulse Rate 71 66 98 Respiratory Rate 16 18 16 Blood Pressure 114/53 L 156/63 H 136/53 L Pulse Oximetry 99 99 74 L Oxygen Delivery 10/06/24 10:53 Temperature 98.1 F Pulse Rate 61 Respiratory Rate 16 Blood Pressure 121/51 L Pulse Oximetry 96 Oxygen Delivery Intake/Output Intake/Output: Intake & Output 10/03/24 10/04/24 10/05/24 10/06/24 23:59 23:59 23:59 23:59 Intake Total 2320.3 1230 2620 1460 Output Total 073 466 5966 Balance 2320.3 980 1685 -115 Meds/Results Medications: Active Medications Generic Name Dose Route Start Last Admin Trade Name Freq PRN Reason Stop Dose Admin Acetaminophen 650 mg 09/30/24 19:02 10/05/24 16:42 Acetaminophen 325 Mg Tablet PO 650 mg Q4H PRN Administration Mild Pain (1-3) or Fever Albuterol 2 puff 10/03/24 15:40 10/04/24 09:06 Albuterol Sulfate (*Sp) Aerosol 1 Puff INHALATION 2 puff Q6HRT PRN Administration Shortness Of Breath Or Wheezing Clopidogrel Bisulfate 75 mg 10/01/24 09:00 10/04/24 08:22 Clopidogrel Bisulfate 75 Mg Tablet PO 75 mg DAILY VU Administration Dextrose 12.5 gm 09/30/24 20:29 Dextrose 50% 25 Gm/50 Ml Syringe IV PUSH PRN PRN Hypoglycemia Protocol Docusate Sodium 100 mg 10/01/24 09:00 10/06/24 08:56 Docusate Sodium 100 Mg Capsule PO 100 mg DAILY VU Administration Ezetimibe 10 mg 10/01/24 09:00 10/06/24 08:56 Ezetimibe 10 Mg Tablet PO 10 mg DAILY VU Administration Famotidine 20 mg 09/30/24 21:00 10/06/24 08:56 Famotidine 20 Mg Tablet PO 20 mg Q12HR VU Administration Finasteride 5 mg 10/01/24 09:00 10/06/24 08:56 Finasteride 5 Mg Tablet PO 5 mg DAILY VU Administration Fluticasone Propionate 2 spray 09/30/24 20:28 10/03/24 20:55 Fluticasone Propionate 0.05% Na Spr 16 Gm Btl (*Bkc) NASAL 2 spray DAILY PRN Administration allergy symptoms Glucagon 1 mg 09/30/24 20:29 Glucagon For Inj 1 Mg Vial IM PRN PRN Hypoglycemia Protocol Glucose 15 gm 09/30/24 20:29 Glucose Oral Gel 15 Gm Of Glucse In 37.5 Gm Tube PO PRN PRN Hypoglycemia Protocol Heparin Sodium (Porcine) 5,000 units 09/30/24 21:00 10/06/24 08:56 Heparin Sodium 5,000 Units/Ml Vial SUB-Q 5,000 units Q12HR VU Administration Dextrose 1,000 mls @ 100 mls/hr 09/30/24 20:29 Dextrose 5% 1,000 Ml IVPB PRN PRN Hypoglycemia Protocol Metronidazole 500 mg in 100 mls @ 100 mls/hr 10/04/24 13:00 10/06/24 05:57 Flagyl 500 Mg/Iso Soln 100 Ml IVPB 100 mls/hr Q8HR VU Administration Ceftriaxone Sodium 2 gm in 100 mls @ 200 mls/hr 10/04/24 12:00 10/06/24 12:27 Rocephin 2 Gm/Ns 100 Ml IVPB 200 mls/hr Q24H VU Administration Sodium Chloride 1,000 mls @ 75 mls/hr 10/04/24 13:50 10/06/24 08:55 Normal Saline Iv IV CONT 75 mls/hr .[id number] VU Administration Insulin Aspart 1 - 3 units 09/30/24 21:00 10/05/24 20:21 Insulin Aspart (*Bkc) 100 Units/Ml SUB-Q Not Given HS VU Protocol Insulin Aspart 3 - 6 units 10/01/24 08:00 10/06/24 08:57 Insulin Aspart (*Bkc) 100 Units/Ml SUB-Q Not Given [facility] Protocol Morphine Sulfate 15 mg 09/30/24 20:28 10/06/24 08:56 Morphine Sulfate (*Crx) 15 Mg Tab Ir PO 15 mg Q8H PRN Administration pain 7-10 Ondansetron HCl 4 mg 09/30/24 19:02 10/02/24 18:18 Ondansetron Inj 4 Mg/2 Ml Vial IV PUSH 4 mg Q4H PRN Administration Nausea Pantoprazole Sodium 40 mg 10/06/24 09:00 10/06/24 08:56 Pantoprazole Sodium Iv 40 Mg Vial IV PUSH 40 mg QAM VU Administration Polyethylene Glycol 17 gm 10/01/24 21:11 10/06/24 08:56 Polyethylene Glycol 3350 17 Gm Powd.Pack PO 17 gm DAILY PRN Administration Constipation Vancomycin HCl 1 each 10/05/24 12:38 Vancomycin For Acute Kidney Injury IVPB PRN PRN Vancomycin Protocol Verapamil HCl 120 mg 09/30/24 21:00 10/06/24 08:56 Verapamil Hcl 120 Mg Tablet Immed Release PO 120 mg Q12HR VU Administration Radiology Results: ITS Impressions Abdomen/Pelvis CT 09/30/24 19:00 IMPRESSION: Gallbladder hydrops without inflammatory change. Dilated common bile duct, measuring 14 mm. No obstructing stone or mass detected. Correlate with biliary labs. 3.4 cm fusiform infrarenal abdominal aortic aneurysm. Consider follow-up in 3 years. Upper Quadrant Ultrasound 10/01/24 08:43 IMPRESSION: 1. Cholelithiasis with a normal-appearing gallbladder but with mild intra and extrahepatic biliary ductal dilation which raises concern for a nonvisualized distal obstructing choledocholithiasis. Correlate with liver function tests and if clinically indicated could consider further evaluation with either MRCP or ERCP. Chest X-Ray 10/03/24 19:24 IMPRESSION: Cardiomegaly with cardiac decompensation and pulmonary edema. Pneumonitis is not excluded. Hepatobiliary Scan Nuclear Medicine 10/05/24 08:35 IMPRESSION: 1. No evident gallbladder activity consistent with acute cholecystitis. Cholecystostomy 10/05/24 16:57 IMPRESSION: 1. Successful ultrasound-guided cholecystostomy tube placement. 2. 35 mL bile was sent for aerobic, anaerobic, and fungal cultures. 3. The catheter will be managed by Dr. Brennan. Labs Labs: Laboratory Results - last 24 hr 10/05/24 10/05/24 10/05/24 12:45 16:35 20:14 WBC RBC Hgb Hct MCV MCH MCHC RDW Plt Count MPV PT 13.7 INR 1.1 APTT 36.2 D-Dimer 3.48 H Sodium Potassium Chloride Carbon Dioxide Anion Gap BUN Creatinine Estim Creat Clear Calc Estimated GFR Glucose POC Capillary Glucose 105 176 H Calcium Phosphorus Total Bilirubin AST ALT Alkaline Phosphatase Total Protein Albumin 10/06/24 10/06/24 10/06/24 05:31 08:06 11:45 WBC 10.9 H RBC 3.65 L Hgb 10.8 L Hct 35.4 L MCV 97.0 MCH 29.6 MCHC 30.5 L RDW 14.9 H Plt Count 172 MPV 10.5 H PT INR APTT D-Dimer Sodium 132 L Potassium 3.8 Chloride 106 Carbon Dioxide 15 L Anion Gap 11 BUN 84 H D Creatinine 2.84 H Estim Creat Clear Calc 20 Estimated GFR 21 L Glucose 139 H POC Capillary Glucose 133 H 205 H Calcium 7.9 L Phosphorus 3.3 Total Bilirubin 0.9 AST 37 ALT 28 Alkaline Phosphatase 78 Total Protein 5.5 L Albumin 2.7 L Quality VTE Prophylaxis VTE prophylaxis: pharmacologic ordered (Heparin 5000 units subQ q.12 hours.)
--- NOTE | 2024-10-06 12:52 | P.PNGS_ITS ---
Progress Note: A&P Assessment and Plan (1) Cholelithiasis with acute cholecystitis without biliary obstruction: Qualifiers: Cholelithiasis location: gallbladder Qualified Code(s): K80.00 - Calculus of gallbladder with acute cholecystitis without obstruction Code(s): K80.00 - Calculus of gallbladder with acute cholecystitis without obstruction Status: Acute Assessment and Plan: Cholecystostomy tube placed yesterday. Having pain at drain site. Cholecystostomy tube will alleviate acute cholecystitis. Will not help if patient has cholangitis. Although the bile ducts are dilated, liver function tests are normal. Cholangitis seems unlikely. (2) Enterococcal bacteremia: Code(s): R78.81 - Bacteremia; B95.2 - Enterococcus as the cause of diseases classified elsewhere Status: Acute Assessment and Plan: Receiving appropriate antibiotics with vancomycin and cefepime. Pending susceptibility testing on the Enterococcus. 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: Qualifiers: Diabetes mellitus longterm insulin use: without longterm use Diabetes mellitus complication detail: with chronic kidney disease Chronic kidney disease stage: unspecified stage Qualified Code(s): E11.22 - Type 2 diabetes mellitus with diabetic chronic kidney disease Code(s): E11.29 - Type 2 diabetes mellitus with other diabetic kidney complication Status: Chronic (6) Acute kidney injury superimposed on CKD: Code(s): N17.9 - Acute kidney failure, unspecified; N18.9 - Chronic kidney disease, unspecified Status: Acute Assessment and Plan: Improving slowly (7) 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: Qualifiers: Chronic kidney disease stage: stage 4 (severe) Qualified Code(s): N18.4 - Chronic kidney disease, stage 4 (severe); D63.1 - Anemia in chronic kidney disease Code(s): N18.9 - Chronic kidney disease, unspecified; D63.1 - Anemia in chronic kidney disease Status: Chronic Subjective Subjective Date/Time Seen: 10/06/24 12:52 Patient reports: no new complaints (Still feeling weak and tired), still having pain (Drain site hurts), tolerating a regular diet, no bowel movement (Last BM recorded was 10/03/2024) and afebrile Review of Systems Review of Systems: All systems reviewed & are unremarkable except as noted in HPI and below (HPI) Exam Const: General: comfortable, alert and awake GI: Inspection: non-distended, obesity and other (Cholecystostomy tube draining bile) GI Palp: Yes Firmness to palpation present (GI), No Tenderness to palpation present (GI), No Hernia present and No Palpable mass present Objective Data Vital Signs Vital Signs: Vital Signs - 24 hr 10/05/24 14:32 10/05/24 20:00 10/05/24 20:00 Temperature 36.8 C 36.7 C Pulse Rate 82 73 Respiratory Rate 16 16 Blood Pressure 148/64 H 132/58 L Pulse Oximetry 96 96 Oxygen Delivery Room Air 10/06/24 00:00 10/06/24 04:00 10/06/24 06:49 Temperature 36.7 C 36.7 C 37.0 C Pulse Rate 71 66 98 Respiratory Rate 16 18 16 Blood Pressure 114/53 L 156/63 H 136/53 L Pulse Oximetry 99 99 74 L Oxygen Delivery 10/06/24 10:53 Temperature 36.7 C Pulse Rate 61 Respiratory Rate 16 Blood Pressure 121/51 L Pulse Oximetry 96 Oxygen Delivery Intake/Output Intake/Output: Intake & Output 10/03/24 10/04/24 10/05/24 10/06/24 23:59 23:59 23:59 23:59 Intake Total 2320.3 1230 2620 1460 Output Total 495 610 6210 Balance 2320.3 980 1685 -115 Meds/Results Medications: Active Medications Generic Name Dose Route Start Last Admin Trade Name Freq PRN Reason Stop Dose Admin Acetaminophen 650 mg 09/30/24 19:02 10/05/24 16:42 Acetaminophen 325 Mg Tablet PO 650 mg Q4H PRN Administration Mild Pain (1-3) or Fever Albuterol 2 puff 10/03/24 15:40 10/04/24 09:06 Albuterol Sulfate (*Sp) Aerosol 1 Puff INHALATION 2 puff Q6HRT PRN Administration Shortness Of Breath Or Wheezing Clopidogrel Bisulfate 75 mg 10/01/24 09:00 10/04/24 08:22 Clopidogrel Bisulfate 75 Mg Tablet PO 75 mg DAILY VU Administration Dextrose 12.5 gm 09/30/24 20:29 Dextrose 50% 25 Gm/50 Ml Syringe IV PUSH PRN PRN Hypoglycemia Protocol Docusate Sodium 100 mg 10/01/24 09:00 10/06/24 08:56 Docusate Sodium 100 Mg Capsule PO 100 mg DAILY VU Administration Ezetimibe 10 mg 10/01/24 09:00 10/06/24 08:56 Ezetimibe 10 Mg Tablet PO 10 mg DAILY VU Administration Famotidine 20 mg 09/30/24 21:00 10/06/24 08:56 Famotidine 20 Mg Tablet PO 20 mg Q12HR VU Administration Finasteride 5 mg 10/01/24 09:00 10/06/24 08:56 Finasteride 5 Mg Tablet PO 5 mg DAILY VU Administration Fluticasone Propionate 2 spray 09/30/24 20:28 10/03/24 20:55 Fluticasone Propionate 0.05% Na Spr 16 Gm Btl (*Bkc) NASAL 2 spray DAILY PRN Administration allergy symptoms Glucagon 1 mg 09/30/24 20:29 Glucagon For Inj 1 Mg Vial IM PRN PRN Hypoglycemia Protocol Glucose 15 gm 09/30/24 20:29 Glucose Oral Gel 15 Gm Of Glucse In 37.5 Gm Tube PO PRN PRN Hypoglycemia Protocol Heparin Sodium (Porcine) 5,000 units 09/30/24 21:00 10/06/24 08:56 Heparin Sodium 5,000 Units/Ml Vial SUB-Q 5,000 units Q12HR VU Administration Dextrose 1,000 mls @ 100 mls/hr 09/30/24 20:29 Dextrose 5% 1,000 Ml IVPB PRN PRN Hypoglycemia Protocol Metronidazole 500 mg in 100 mls @ 100 mls/hr 10/04/24 13:00 10/06/24 05:57 Flagyl 500 Mg/Iso Soln 100 Ml IVPB 100 mls/hr Q8HR VU Administration Ceftriaxone Sodium 2 gm in 100 mls @ 200 mls/hr 10/04/24 12:00 10/06/24 12:27 Rocephin 2 Gm/Ns 100 Ml IVPB 200 mls/hr Q24H VU Administration Sodium Chloride 1,000 mls @ 75 mls/hr 10/04/24 13:50 10/06/24 08:55 Normal Saline Iv IV CONT 75 mls/hr .[id number] VU Administration Insulin Aspart 1 - 3 units 09/30/24 21:00 10/05/24 20:21 Insulin Aspart (*Bkc) 100 Units/Ml SUB-Q Not Given HS VU Protocol Insulin Aspart 3 - 6 units 10/01/24 08:00 10/06/24 08:57 Insulin Aspart (*Bkc) 100 Units/Ml SUB-Q Not Given TIDWM [facility] Protocol Morphine Sulfate 15 mg 09/30/24 20:28 10/06/24 08:56 Morphine Sulfate (*Crx) 15 Mg Tab Ir PO 15 mg Q8H PRN Administration pain 7-10 Ondansetron HCl 4 mg 09/30/24 19:02 10/02/24 18:18 Ondansetron Inj 4 Mg/2 Ml Vial IV PUSH 4 mg Q4H PRN Administration Nausea Polyethylene Glycol 17 gm 10/01/24 21:11 10/06/24 08:56 Polyethylene Glycol 3350 17 Gm Powd.Pack PO 17 gm DAILY PRN Administration Constipation Vancomycin HCl 1 each 10/05/24 12:38 Vancomycin For Acute Kidney Injury IVPB PRN PRN Vancomycin Protocol Verapamil HCl 120 mg 09/30/24 21:00 10/06/24 08:56 Verapamil Hcl 120 Mg Tablet Immed Release PO 120 mg Q12HR VU Administration Radiology Results: ITS Impressions Abdomen/Pelvis CT 09/30/24 19:00 IMPRESSION: Gallbladder hydrops without inflammatory change. Dilated common bile duct, measuring 14 mm. No obstructing stone or mass detected. Correlate with biliary labs. 3.4 cm fusiform infrarenal abdominal aortic aneurysm. Consider follow-up in 3 years. Upper Quadrant Ultrasound 10/01/24 08:43 IMPRESSION: 1. Cholelithiasis with a normal-appearing gallbladder but with mild intra and extrahepatic biliary ductal dilation which raises concern for a nonvisualized distal obstructing choledocholithiasis. Correlate with liver function tests and if clinically indicated could consider further evaluation with either MRCP or ERCP. Chest X-Ray 10/03/24 19:24 IMPRESSION: Cardiomegaly with cardiac decompensation and pulmonary edema. Pneumonitis is not excluded. Hepatobiliary Scan Nuclear Medicine 10/05/24 08:35 IMPRESSION: 1. No evident gallbladder activity consistent with acute cholecystitis. Cholecystostomy 10/05/24 16:57 IMPRESSION: 1. Successful ultrasound-guided cholecystostomy tube placement. 2. 35 mL bile was sent for aerobic, anaerobic, and fungal cultures. 3. The catheter will be managed by Dr. Brennan. Labs Labs: Laboratory Results - last 24 hr 10/05/24 10/05/24 10/05/24 12:45 16:35 20:14 WBC RBC Hgb Hct MCV MCH MCHC RDW Plt Count MPV PT 13.7 INR 1.1 APTT 36.2 D-Dimer 3.48 H Sodium Potassium Chloride Carbon Dioxide Anion Gap BUN Creatinine Estim Creat Clear Calc Estimated GFR Glucose POC Capillary Glucose 105 176 H Calcium Phosphorus Total Bilirubin AST ALT Alkaline Phosphatase Total Protein Albumin 10/06/24 10/06/24 10/06/24 05:31 08:06 11:45 WBC 10.9 H RBC 3.65 L Hgb 10.8 L Hct 35.4 L MCV 97.0 MCH 29.6 MCHC 30.5 L RDW 14.9 H Plt Count 172 MPV 10.5 H PT INR APTT D-Dimer Sodium 132 L Potassium 3.8 Chloride 106 Carbon Dioxide 15 L Anion Gap 11 BUN 84 H D Creatinine 2.84 H Estim Creat Clear Calc 20 Estimated GFR 21 L Glucose 139 H POC Capillary Glucose 133 H 205 H Calcium 7.9 L Phosphorus 3.3 Total Bilirubin 0.9 AST 37 ALT 28 Alkaline Phosphatase 78 Total Protein 5.5 L Albumin 2.7 L Blood cultures from 10/04/2024 positive for Enterococcus. This came back just today. Susceptibility testing pending
[2024-10-06] MEDS: FLUTICASONE PROPIONATE 0.05% NA SPR 16 GM BTL (*BKC) 2 SPRAY NASAL (13:39)
[2024-10-06] MEDS: ACETAMINOPHEN 325 MG TABLET 650 MG PO (13:40)
[2024-10-06] MEDS: INSULIN ASPART (*BKC) 100 UNITS/ML SUB-Q (13:44)
--- NOTE | 2024-10-06 14:39 | PCPTNOTE ---
Pt refused PT for today- reports having a lot of pain. RN aware. Will cont per POC
[2024-10-06] MEDS: VANCOMYCIN 1,500 MG/NS 500 ML 1,500 MG/500 ML BAG 250 MG IVPB (15:52)
[2024-10-06] MEDS: SODIUM CHLORIDE 500 MG TABLET PO (16:46)
[2024-10-07 03:41] VITALS: BP 157/60; PULSE 76; RESP 18; TEMP 36.8; O2SAT 98
[2024-10-07] MEDS: MORPHINE SULFATE (*CRX) 15 MG TAB IR PO ×4 (03:48→22:04)
[2024-10-07 05:36] LABS: Hematocrit 29.8 % (42.0-52.0); Hemoglobin 9.7 g/dL (14.0-18.0); Mean Corpuscular HGB Conc 32.6 g/dl (32-36); Mean Corpuscular Hemoglobin 29.8 pg (26-34); Mean Corpuscular Volume 91.4 fl (80-100); Platelet Count Result 204 k/mm3 (150-375); Red Blood Count 3.26 M/mm3 (4.6-6.20); White Blood Count 10.4 K/mm3 (4.5-10.0)
[2024-10-07] MEDS: metroNIDAZOLE 500 MG/ISO 100ML 500 MG/100 ML BAG 100 MG IVPB (05:51)
[2024-10-07 05:53] LABS: Alanine Aminotransferase 24 U/L (6-50); Albumin Level 2.8 g/dL (3.5-5.1); Alkaline Phosphatase 76 U/L (38-126); Anion Gap 8 mmol/L (4-12); Aspartate Amino Transferase 28 U/L (17-59); Bilirubin,Total 0.4 mg/dL (0.2-1.3); Blood Urea Nitrogen 71 mg/dL (9-20); Calcium 8.3 mg/dL (8.4-10.2); Carbon Dioxide 22 mmol/L (22-30); Chloride 104 mmol/L (98-107); Estimated CRCL calculation 24 ml/min; Estimated Glomerular Filt Rate 25; Glucose 145 mg/dL (65-110); Potassium 3.5 mmol/L (3.4-5.0); Sodium 134 mmol/L (137-145); Total Protein 5.7 g/dL (6.3-8.2)
--- NOTE | 2024-10-07 08:03 | PM.IMPN ---
Progress Note: A&P Assessment and Plan (1) Chest pain: Qualifiers: Chest pain type: unspecified Qualified Code(s): R07.9 - Chest pain, unspecified Code(s): R07.9 - Chest pain, unspecified Status: Acute Assessment and Plan: -Chest pain seems atypical in nature, pt continue to deny CP. -Troponin are elevated but flat. Will complete troponin series. -Pain seems more consistent with GI cause with reported indigestion and significant right upper quadrant pain. -Will continue Antihypertensives and Plavix. -->HOLD Plavix starting 10/05 for eventual lap torrie per surg 10/07: Per surg: No longer plan to proceed with cholecystectomy this week. Patient to ill with sepsis and bacteremia as well as acute on chronic renal failure. Will resume Plavix today. Pt continues to deny CP/SOB or any other worrisome sx. (2) Acute kidney injury superimposed on CKD: Code(s): N17.9 - Acute kidney failure, unspecified; N18.9 - Chronic kidney disease, unspecified Status: Acute Assessment and Plan: Patient has chronic kidney disease stage 4 with acute kidney injury. Most likely prerenal due to intervascular volume depletion. - Hold Lasix and continue IV fluid hydration at 75ml/hr. - Nephrology was consulted from the ER. - Continue flomax 10/02- cr/bun 2.96/100 10/03: Cr/BUN: 3.26/91, pending neph rounds due to worsening Cr 10/04: Cr/BUN: 3.43/90, Started IVF again today, continue to hold lasix 10/05: Cr/BUN: 3.54/[address] Lopez today, he believes that once the torrie tube is placed and with IV abx on board, kidney labs should begin to normalize back to pt baseline which is CKD4. Will continue to monitor levels. Dr. Lopez on for the weekend. 10/06: Cr/BUN: 2.84/84, starting to trend down, will continue to monitor daily IVF D/C due to better trending kidneys, lasix still on hold (no pulm congestion), and adequate intake. 10/07: Kidney levels continuing to improve Cr/BUN: 2.33/27 -If continues to improve, will start Lasix back up tomorrow. at the bedside today concerned for his BLE edema, which has not worsened per my exam. Pt also denies CP/SOB. (3) Acute uremia: Code(s): N19 - Unspecified kidney failure Status: Acute Assessment and Plan: Possibly due to hypovolemia. GI bleed is less likely given patient's hemoglobin is stable at 12 in ED and patient denies symptoms of hematemesis hematochezia or melena. Pt continues to deny any blood loss. -Will hold Lasix and continue IV fluid hydration and repeat CBC and electrolyte panel in a.m. -Decrease IV fluids to 50 ml and monitor I/O closely 10/03: -H/H as of 10/03: 9.6/30.5 -Pt appetite still decreased, continue IVF 50/hr 10/04: -H/H 9.8/30.5 -Started again on IVF to try to normalize creat, pt will be NPO at [place] anyway for procedure tomorrow. 10/05: -H/H 9.9/31.3 -IVF down to 75 ml/hr for NPO status and to avoid pulm edema Spoke to Dr. Lopez today, he believes that once the torrie tube is placed and with IV abx on board, kidney labs should begin to normalize back to pt baseline which is CKD4. Will continue to monitor levels. Dr. Lopez on for the weekend. 10/06: -H/H 10.8/35.4 -IVF stopped today, appetite better 10/07: -H/H/: 9.7/29.8 (4) Gallbladder hydrops: Code(s): K82.1 - Hydrops of gallbladder Status: Acute Assessment and Plan: CT does not suggest overt acute cholecystitis but patient does have significant kit right upper quadrant pain on palpation and worsening of his nausea with palpation of right upper quadrant. -RUQ US for better visualization of the gallbladder: 1. Cholelithiasis with a normal-appearing gallbladder but with mild intra and extrahepatic biliary ductal dilation which raises concern for a nonvisualized distal obstructing choledocholithiasis. Correlate with liver function tests and if clinically indicated could consider further evaluation with either MRCP or ERCP. -->Consulted GI 10/03, pending recs/rounding -Bilirubin and transaminases are normal. -Patient does have some leukocytosis but no fever. -Will hold off on adding antibiotic coverage at this time and will repeat CBC in a.m. 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 His symptoms are likely related to his gallbadder and there is concern for choledocholithiasis given his common bile duct dilatation on imaging. Since his Plavix has been continued, he would not be a candidate for a laparoscopic cholecystectomy at this time. He received his last dose of Plavix this morning, which I have put on hold. Since he continues to have symptoms, we would recommend proceeding with percutaneous cholecystostomy tube placement to treat his cholecystitis. We will eventually consider proceeding with a laparoscopic cholecystectomy with intraoperative cholangiogram to evaluate for choledocholithiasis, but this will be at a later date, possibly as an outpatient depending on how he is progressing medically, when his Plavix can be held for an adequate amount of time. This would also allow time for improved medical optimization in regards to his renal failure and pulmonary edema. Will repeat labs tomorrow and include a CMP to re-evaluate his liver enzymes. Although his WBC count has been trending down, I will also start him on broad-spectrum IV antibiotics to cover for cholecystitis/cholangitis given his persistent pain/fever/leukocytosis. Plavix has been continued since his admission. He received a dose this morning. Will hold his Plavix now, which ideally is held for 5 days prior to a cholecystectomy. -->Plan for torrie tube placement tomorrow, surg started ceftriaxone and flagyl today 10/05: HIDA scan and cholecystectomy tube placement today. Low fat diet started after procedure. Will continue to monitor tube and daily AM labs. 10/06: Pt looking a lot better since tube placement yesterday. Pt reporting some pain in his RLQ and tube insertion site but per pt his morphine home dose has been taking care of the pain. -Per surg note today: Cholecystostomy tube placed yesterday. Having pain at drain site. Cholecystostomy tube will alleviate acute cholecystitis. Will not help if patient has cholangitis. Although the bile ducts are dilated, liver function tests are normal. Cholangitis seems unlikely. Bacteremia: Receiving appropriate antibiotics with vancomycin and cefepime. Pending susceptibility testing on the Enterococcus 10/07: Per surg: Relieved with placement cholecystostomy tube. Abdomen benign and no further abdominal pain. No longer plan to proceed with cholecystectomy this week. Patient to ill with sepsis and bacteremia as well as acute on chronic renal failure. Will resume Plavix today. -Pt denies pain to his abd or torrie tube site. (5) Type 2 diabetes mellitus with hyperglycemia, without long-term current use of insulin: Code(s): E11.65 - Type 2 diabetes mellitus with hyperglycemia Status: Acute Assessment and Plan: Hold Actos -Moderate dose sliding scale insulin with Accu-Cheks a.c. HS and hypoglycemia protocol. -Glucose has been stable during stay (6) Chronic pain: Qualifiers: Chronic pain type: chronic pain syndrome Qualified Code(s): G89.4 - Chronic pain syndrome Code(s): G89.29 - Other chronic pain Status: Acute Assessment and Plan: Will resume patient's home morphine 15 mg Q 8 hours p.r.n. pain 7-10. (7) Abdominal aortic aneurysm (AAA) 3.0 cm to 5.5 cm in diameter in male: Code(s): I71.40 - Abdominal aortic aneurysm, without rupture, unspecified Status: Acute Assessment and Plan: Likely chronic will defer follow-up to patient's primary care provider for serial imaging (8) Antiplatelet or antithrombotic long-term use: Code(s): Z79.02 - predatory animal exterminator (current) use of antithrombotics/antiplatelets Status: Acute Assessment and Plan: Pt with hx of pacemaker and plavix long-term use. Per surg: Plavix has been continued since his admission. He received a dose this morning. Will hold his Plavix now, which ideally is held for 5 days prior to a cholecystectomy. 10/07: Per surg: No longer plan to proceed with cholecystectomy this week. Patient to ill with sepsis and bacteremia as well as acute on chronic renal failure. Will resume Plavix today. -Plan for outpatient lap torrie potentially, surg to continue to follow. (9) Bacteremia: Code(s): R78.81 - Bacteremia Status: Acute Assessment and Plan: 10/05: Both blood cultures resulted today with Gram + cocci in chains -->Spoke with ID pharm, reports could be either strep strain (covered by Ceftriaxone) or Entero strain (covered by Vanc) --->Will start vanc today to treat if ends up being entero strain to get ahead of the infection, will f/u tomorrow for final reads -Pt on Ceftriaxone 2g already via surg for low grade fevers and leukocytosis, will continue. -Ordered echo 10/05 to r/o endocarditis -Also repeat order for BC placed today 10/06: X1 BC final result yielding enterococcus faecalis, will continue with vanc, pending second final BC result -Will continue to trend BCs 10/07: After a slight bump, WBC continues to downtrend slightly, will continue to monitor. Per surg today: Spoke with pharmacist. Will change to ampicillin and gentamicin based on susceptibilities of the Enterococcus -->Gallbladder wound culture prelim resulted today for Enterococcus, continue ampicillin and gentamicin -Will continue to trend BCs, new draw tomorrow AM scheduled (10) Hyponatremia: Code(s): E87.1 - Hypo-osmolality and hyponatremia Status: Acute Assessment and Plan: Levels have been low since admission despite IVF NS. -Sodium chl tablets started 10/06 to normalize -Will continue to trend pt status and daily labs 10/07: Na 134 Plan Torrie tube placement 10/05, continue to monitor pt with labs, VS, and pain control. Surg started IV abx 10/04. Surg restarted Plavix today due to pt being too sick for lap torrie during this admission. Per surg, per pharm, abx changed for wound culture +enterococcus coverage. Will obtain new BC tomorrow AM. Subjective Date/time seen: 10/07/24 1046 Interval history: 88-year-old male with a past medical history of heart valve replacement, CHF, chronic kidney disease, BPH, type 2 diabetes mellitus and chronic pain who presented to the ER via EMS from home due to nausea, abdominal pain and chest pain for 3 days. The patient reports that he has been having initial symptoms of abdominal pain of his generalized for the last 3 days. In ED- BUN of 120 creatinine 3.86. He was hyperglycemic in the ER. Pt is seen and examined.He denies any chest pain, feels overall tired and somewhat nauseated. 10/02 - pt is seen and examined. He is very weak, unable to do much on his own. No abd pain, no nausea today. Cr elevated overnight- nephrology following. 10/03: Pt continues to report RUQ abd pain, nausea, and decreased appetite. pt denies CP. Pt is confused why he is still having pain, I updated him that his abd US showed that he may have a gallstone that may be trapped in his bile duct today and that may be why he is still in pain. Updated him on the plan for GI to come see him to discuss further steps, pt agreeable with the plan. Pt encouraged to keep trying to eat and drink fluids, continue IVF as of now. 10/04: Pt reports that his RUQ pain today is mildly worse, but denies any nausea and he states I have not had any of that for some time now. Updated him on the plan from GI for surgery to consult due to the need of a lap torrie to visualize the probable stone due to not being able to obtain an MRCP because he has a pacemaker. Upon exam today, pt drowsy, but awakens to verbal stimuli. I spoke to on the phone and she states that his drowsiness state is baseline. 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 Reiterated plan for surgery to consult on plan which they recommended proceeding with percutaneous cholecystostomy tube placement to treat his cholecystitis due to being on his Plavix. 10/05: Pt sleeping when entered room, awakens to verbal stimuli. Pt continues to report mild RUQ pain and deny nausea. Updated him on the plan for additional imaging today as well as a torrie tube placement, pt agreeable with the plan. Transport here to get pt now. 10/06: Pt more alert today, , Nallely, at the bedside. Pt sitting up in chair. Reporting pain to insertion site of Torrie tube, but reports that his morphine he gets at baseline has been helping with that pain. Pt denies SOB/CP, increased BLE edema, or any other sx. 10/07: Pt up and sitting in the chair. Pt reporting his chronic pain in bilateral hips and back today but states that it is controlled by his home pain medication. Pt reports BM x2 days ago. Continues to deny CP, SOB, or increased BLE edema. Since kidneys are looking better daily, likely to restart his Lasix tomorrow. Review of Systems Review of Systems: 12 systems were reviewed with pertinent positives and negatives per HPI. Except as documented in the HPI, all other systems were reviewed and are negative. Exam Const: General: comfortable Other: No acute distress, well-developed, obese, appears stated age HENMT: Face/Nose/Sinus: Normal nares present Mouth: Yes moist mucous membranes Other: Upper and lower dentures in place Eyes: General: appearance normal, both eyes and all related structures Sclera: sclerae normal Other: Bilateral lens replacements noted - R 4mm, L 3mm pupils, no conjunctival pallor, no scleral icterus Neck: Other: Large neck circumference, no JVD, loss of cervical lordosis Resp: Effort & Inspection: normal respiratory effort Auscultation: clear to auscultation bilaterally Other: Clear to auscultation bilaterally, no increased work of breathing Cardio: Rate: regular rate Rhythm: regular rhythm Other: Regular rate, regular rhythm, no murmur, 2+ bilateral radial and pedal pulses GI: Inspection: non-distended Auscultation: normal bowel sounds Other: No pain in abd to palpitation Torrie tube with bile colored drainage, minimal Skin: General skin exam: normal color and No rashes Rashes: no rashes noted Neuro: Other: A&O x4, speech is clear, mild hearing loss, no localizing neurologic deficit noted during the course of conversation. Extrem: General: normal to inspection Other: 5/5 sr. manager marketing strength bilaterally, trace edema right lower extremity 1+ edema left lower extremity Psych: Affect: normal affect Other: Flat affect, cooperative, appropriate insight and judgment Objective Data Vital Signs Vital Signs: Vital Signs - 24 hr 10/06/24 09:00 10/06/24 10:53 10/06/24 16:00 Temperature 98.1 F 98.5 F Pulse Rate 61 60 Respiratory Rate 16 16 Blood Pressure 121/51 L 123/57 L Pulse Oximetry 96 97 Oxygen Delivery Room Air 10/06/24 19:57 10/06/24 20:00 10/06/24 23:37 Temperature 98.2 F 97.6 F Pulse Rate 68 70 Respiratory Rate 17 17 Blood Pressure 137/60 141/60 H Pulse Oximetry 98 99 Oxygen Delivery Room Air 10/07/24 03:41 Temperature 98.3 F Pulse Rate 76 Respiratory Rate 18 Blood Pressure 157/60 H Pulse Oximetry 98 Oxygen Delivery Intake/Output Intake/Output: Intake & Output 10/04/24 10/05/24 10/06/24 10/07/24 23:59 23:59 23:59 23:59 Intake Total 1230 2620 2240 350 Output Total 151 863 0796 350 Balance 980 1685 -110 0 Meds/Results Medications: Active Medications Generic Name Dose Route Start Last Admin Trade Name Freq PRN Reason Stop Dose Admin Acetaminophen 650 mg 09/30/24 19:02 10/06/24 13:40 Acetaminophen 325 Mg Tablet PO 650 mg Q4H PRN Administration Mild Pain (1-3) or Fever Albuterol 2 puff 10/03/24 15:40 10/04/24 09:06 Albuterol Sulfate (*Sp) Aerosol 1 Puff INHALATION 2 puff Q6HRT PRN Administration Shortness Of Breath Or Wheezing Clopidogrel Bisulfate 75 mg 10/01/24 09:00 10/04/24 08:22 Clopidogrel Bisulfate 75 Mg Tablet PO 75 mg DAILY VU Administration Dextrose 12.5 gm 09/30/24 20:29 Dextrose 50% 25 Gm/50 Ml Syringe IV PUSH PRN PRN Hypoglycemia Protocol Docusate Sodium 100 mg 10/01/24 09:00 10/06/24 08:56 Docusate Sodium 100 Mg Capsule PO 100 mg DAILY VU Administration Ezetimibe 10 mg 10/01/24 09:00 10/06/24 08:56 Ezetimibe 10 Mg Tablet PO 10 mg DAILY VU Administration Famotidine 20 mg 09/30/24 21:00 10/06/24 21:29 Famotidine 20 Mg Tablet PO 20 mg Q12HR VU Administration Finasteride 5 mg 10/01/24 09:00 10/06/24 08:56 Finasteride 5 Mg Tablet PO 5 mg DAILY VU Administration Fluticasone Propionate 2 spray 09/30/24 20:28 10/06/24 13:39 Fluticasone Propionate 0.05% Na Spr 16 Gm Btl (*Bkc) NASAL 2 spray DAILY PRN Administration allergy symptoms Glucagon 1 mg 09/30/24 20:29 Glucagon For Inj 1 Mg Vial IM PRN PRN Hypoglycemia Protocol Glucose 15 gm 09/30/24 20:29 Glucose Oral Gel 15 Gm Of Glucse In 37.5 Gm Tube PO PRN PRN Hypoglycemia Protocol Heparin Sodium (Porcine) 5,000 units 09/30/24 21:00 10/06/24 21:30 Heparin Sodium 5,000 Units/Ml Vial SUB-Q 5,000 units Q12HR VU Administration Dextrose 1,000 mls @ 100 mls/hr 09/30/24 20:29 Dextrose 5% 1,000 Ml IVPB PRN PRN Hypoglycemia Protocol Metronidazole 500 mg in 100 mls @ 100 mls/hr 10/04/24 13:00 10/07/24 06:56 Flagyl 500 Mg/Iso Soln 100 Ml IVPB Infused Q8HR VU Infusion Ceftriaxone Sodium 2 gm in 100 mls @ 200 mls/hr 10/04/24 12:00 10/06/24 12:27 Rocephin 2 Gm/Ns 100 Ml IVPB 200 mls/hr Q24H VU Administration Insulin Aspart 1 - 3 units 09/30/24 21:00 10/06/24 21:25 Insulin Aspart (*Bkc) 100 Units/Ml SUB-Q Not Given HS VU Protocol Insulin Aspart 3 - 6 units 10/01/24 08:00 10/06/24 18:03 Insulin Aspart (*Bkc) 100 Units/Ml SUB-Q Not Given TIDWM [facility] Protocol Morphine Sulfate 15 mg 09/30/24 20:28 10/07/24 03:48 Morphine Sulfate (*Crx) 15 Mg Tab Ir PO 15 mg Q8H PRN Administration pain 7-10 Ondansetron HCl 4 mg 09/30/24 19:02 10/02/24 18:18 Ondansetron Inj 4 Mg/2 Ml Vial IV PUSH 4 mg Q4H PRN Administration Nausea Pantoprazole Sodium 40 mg 10/07/24 09:00 Pantoprazole 40 Mg Tablet PO QAM [facility] Polyethylene Glycol 17 gm 10/01/24 21:11 10/06/24 08:56 Polyethylene Glycol 3350 17 Gm Powd.Pack PO 17 gm DAILY PRN Administration Constipation Sodium Chloride 500 mg 10/06/24 17:00 10/06/24 16:46 Sodium Chloride 500 Mg Tablet PO 500 mg BID VU Administration Vancomycin HCl 1 each 10/05/24 12:38 Vancomycin For Acute Kidney Injury IVPB PRN PRN Vancomycin Protocol Verapamil HCl 120 mg 09/30/24 21:00 10/06/24 21:29 Verapamil Hcl 120 Mg Tablet Immed Release PO 120 mg Q12HR VU Administration Radiology Results: ITS Impressions Abdomen/Pelvis CT 09/30/24 19:00 IMPRESSION: Gallbladder hydrops without inflammatory change. Dilated common bile duct, measuring 14 mm. No obstructing stone or mass detected. Correlate with biliary labs. 3.4 cm fusiform infrarenal abdominal aortic aneurysm. Consider follow-up in 3 years. Upper Quadrant Ultrasound 10/01/24 08:43 IMPRESSION: 1. Cholelithiasis with a normal-appearing gallbladder but with mild intra and extrahepatic biliary ductal dilation which raises concern for a nonvisualized distal obstructing choledocholithiasis. Correlate with liver function tests and if clinically indicated could consider further evaluation with either MRCP or ERCP. Chest X-Ray 10/03/24 19:24 IMPRESSION: Cardiomegaly with cardiac decompensation and pulmonary edema. Pneumonitis is not excluded. Hepatobiliary Scan Nuclear Medicine 10/05/24 08:35 IMPRESSION: 1. No evident gallbladder activity consistent with acute cholecystitis. Cholecystostomy 10/05/24 16:57 IMPRESSION: 1. Successful ultrasound-guided cholecystostomy tube placement. 2. 35 mL bile was sent for aerobic, anaerobic, and fungal cultures. 3. The catheter will be managed by Dr. Brennan. Labs Labs: Laboratory Results - last 24 hr 10/06/24 10/06/24 10/06/24 08:06 11:45 12:59 WBC RBC Hgb Hct MCV MCH MCHC RDW Plt Count MPV Sodium Potassium Chloride Carbon Dioxide Anion Gap BUN Creatinine Estim Creat Clear Calc Estimated GFR Glucose POC Capillary Glucose 133 H 205 H Calcium Total Bilirubin AST ALT Alkaline Phosphatase Total Protein Albumin Vancomycin Trough 8.5 L 10/06/24 10/06/24 10/07/24 17:11 20:46 05:23 WBC 10.4 H RBC 3.26 L Hgb 9.7 L Hct 29.8 L MCV 91.4 D MCH 29.8 MCHC 32.6 RDW 14.7 H Plt Count 204 MPV 10.2 Sodium 134 L Potassium 3.5 Chloride 104 Carbon Dioxide 22 Anion Gap 8 BUN 71 H D Creatinine 2.47 H Estim Creat Clear Calc 24 Estimated GFR 25 L Glucose 145 H POC Capillary Glucose 169 H 160 H Calcium 8.3 L Total Bilirubin 0.4 AST 28 ALT 24 Alkaline Phosphatase 76 Total Protein 5.7 L Albumin 2.8 L Vancomycin Trough 10/07/24 07:50 WBC RBC Hgb Hct MCV MCH MCHC RDW Plt Count MPV Sodium Potassium Chloride Carbon Dioxide Anion Gap BUN Creatinine Estim Creat Clear Calc Estimated GFR Glucose POC Capillary Glucose 126 H Calcium Total Bilirubin AST ALT Alkaline Phosphatase Total Protein Albumin Vancomycin Trough Quality VTE Prophylaxis VTE prophylaxis: pharmacologic ordered (Heparin 5000 units subQ q.12 hours.)
[2024-10-07] MEDS: FAMOTIDINE 20 MG TABLET PO ×2 (09:06→21:52)
[2024-10-07] MEDS: EZETIMIBE 10 MG TABLET PO (09:06)
[2024-10-07] MEDS: FINASTERIDE 5 MG TABLET PO (09:06)
[2024-10-07] MEDS: PANTOPRAZOLE 40 MG TABLET PO (09:06)
[2024-10-07] MEDS: DOCUSATE SODIUM 100 MG CAPSULE PO (09:06)
[2024-10-07] MEDS: SODIUM CHLORIDE 500 MG TABLET PO ×2 (09:06→17:31)
[2024-10-07] MEDS: VERAPAMIL HCL 120 MG TABLET IMMED RELEASE PO ×2 (09:06→21:52)
[2024-10-07] MEDS: FLUTICASONE PROPIONATE 0.05% NA SPR 16 GM BTL (*BKC) 2 SPRAY NASAL (09:06)
[2024-10-07] MEDS: AMPICILLIN 2 GM/NS 100 ML 2 GM/100 ML BAG IVPB ×2 (09:28→17:30)
--- NOTE | 2024-10-07 09:59 | PM.PNGS ---
Progress Note: A&P Assessment and Plan (1) Cholelithiasis with acute cholecystitis without biliary obstruction: Qualifiers: Cholelithiasis location: gallbladder Qualified Code(s): K80.00 - Calculus of gallbladder with acute cholecystitis without obstruction Code(s): K80.00 - Calculus of gallbladder with acute cholecystitis without obstruction Status: Acute Assessment and Plan: Relieved with placement cholecystostomy tube. Abdomen benign and no further abdominal pain. (2) Enterococcal bacteremia: Code(s): R78.81 - Bacteremia; B95.2 - Enterococcus as the cause of diseases classified elsewhere Status: Acute Assessment and Plan: Spoke with pharmacist. 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 Patient to ill with sepsis and bacteremia as well as acute on chronic renal failure. Will resume Plavix today. 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: Qualifiers: Diabetes mellitus senior living insulin use: without senior living use Diabetes mellitus complication detail: with chronic kidney disease Chronic kidney disease stage: unspecified stage Qualified Code(s): E11.22 - Type 2 diabetes mellitus with diabetic chronic kidney disease Code(s): E11.29 - Type 2 diabetes mellitus with other diabetic kidney complication Status: Chronic (6) Acute kidney injury superimposed on CKD: Code(s): N17.9 - Acute kidney failure, unspecified; N18.9 - Chronic kidney disease, unspecified Status: Acute Assessment and Plan: Improving slowly (7) 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: Qualifiers: Chronic kidney disease stage: stage 4 (severe) Qualified Code(s): N18.4 - Chronic kidney disease, stage 4 (severe); D63.1 - Anemia in chronic kidney disease Code(s): N18.9 - Chronic kidney disease, unspecified; D63.1 - Anemia in chronic kidney disease Status: Chronic Subjective Subjective Date/Time Seen: 10/07/24 09:59 Patient reports: still having pain (No abdominal pain but right hip is really painful for him.), tolerating a regular diet (Low-fat), bowel movement (Yesterday) and afebrile Review of Systems Review of Systems: All systems reviewed & are unremarkable except as noted in HPI and below (HPI) Exam Const: General: cooperative, comfortable, alert, awake and acute distress Nutritional Appearance: overweight Orientation/consciousness: No confusion GI: Inspection: non-distended, obesity and other (Cholecystostomy tube draining bile appropriately) GI Palp: Yes Soft to palpation, Yes Tenderness to palpation present (GI) (Only at exit site of cholecystostomy tube), No Guarding due to palpation present (GI), No Hernia present, No Palpable mass present and No Rebound tenderness present Objective Data Vital Signs Vital Signs: Vital Signs - 24 hr 10/06/24 10:53 10/06/24 16:00 10/06/24 19:57 Temperature 36.7 C 36.9 C Pulse Rate 61 60 Respiratory Rate 16 16 Blood Pressure 121/51 L 123/57 L Pulse Oximetry 96 97 Oxygen Delivery Room Air 10/06/24 20:00 10/06/24 23:37 10/07/24 03:41 Temperature 36.8 C 36.4 C 36.8 C Pulse Rate 68 70 76 Respiratory Rate 17 17 18 Blood Pressure 137/60 141/60 H 157/60 H Pulse Oximetry 98 99 98 Oxygen Delivery Intake/Output Intake/Output: Intake & Output 10/04/24 10/05/24 10/06/24 10/07/24 23:59 23:59 23:59 23:59 Intake Total 1230 2620 2240 350 Output Total 358 611 8746 350 Balance 980 1685 -110 0 Meds/Results Medications: Active Medications Generic Name Dose Route Start Last Admin Trade Name Freq PRN Reason Stop Dose Admin Acetaminophen 650 mg 09/30/24 19:02 10/06/24 13:40 Acetaminophen 325 Mg Tablet PO 650 mg Q4H PRN Administration Mild Pain (1-3) or Fever Albuterol 2 puff 10/03/24 15:40 10/04/24 09:06 Albuterol Sulfate (*Sp) Aerosol 1 Puff INHALATION 2 puff Q6HRT PRN Administration Shortness Of Breath Or Wheezing Clopidogrel Bisulfate 75 mg 10/01/24 09:00 10/04/24 08:22 Clopidogrel Bisulfate 75 Mg Tablet PO 75 mg DAILY VU Administration Dextrose 12.5 gm 09/30/24 20:29 Dextrose 50% 25 Gm/50 Ml Syringe IV PUSH PRN PRN Hypoglycemia Protocol Docusate Sodium 100 mg 10/01/24 09:00 10/07/24 09:06 Docusate Sodium 100 Mg Capsule PO 100 mg DAILY VU Administration Ezetimibe 10 mg 10/01/24 09:00 10/07/24 09:06 Ezetimibe 10 Mg Tablet PO 10 mg DAILY VU Administration Famotidine 20 mg 09/30/24 21:00 10/07/24 09:06 Famotidine 20 Mg Tablet PO 20 mg Q12HR VU Administration Finasteride 5 mg 10/01/24 09:00 10/07/24 09:06 Finasteride 5 Mg Tablet PO 5 mg DAILY VU Administration Fluticasone Propionate 2 spray 09/30/24 20:28 10/07/24 09:06 Fluticasone Propionate 0.05% Na Spr 16 Gm Btl (*Bkc) NASAL 2 spray DAILY PRN Administration allergy symptoms Glucagon 1 mg 09/30/24 20:29 Glucagon For Inj 1 Mg Vial IM PRN PRN Hypoglycemia Protocol Glucose 15 gm 09/30/24 20:29 Glucose Oral Gel 15 Gm Of Glucse In 37.5 Gm Tube PO PRN PRN Hypoglycemia Protocol Heparin Sodium (Porcine) 5,000 units 09/30/24 21:00 10/07/24 09:06 Heparin Sodium 5,000 Units/Ml Vial SUB-Q 5,000 units Q12HR VU Administration Dextrose 1,000 mls @ 100 mls/hr 09/30/24 20:29 Dextrose 5% 1,000 Ml IVPB PRN PRN Hypoglycemia Protocol Ampicillin Sodium 2 gm in 100 mls @ 200 mls/hr 10/07/24 10:00 10/07/24 09:28 Ampicillin 2 Gm/Ns 100 Ml IVPB 200 mls/hr Q8H VU Administration Gentamicin Sulfate 425 mg/ 110.625 mls @ 100 mls/hr 10/07/24 10:00 Dextrose IVPB 10/07/24 11:06 ONCE ONE Gentamicin Sulfate 425 mg/ 110.625 mls @ 100 mls/hr 10/07/24 09:40 Dextrose IVPB PRN PRN PLACEHOLDER Insulin Aspart 1 - 3 units 09/30/24 21:00 10/06/24 21:25 Insulin Aspart (*Bkc) 100 Units/Ml SUB-Q Not Given HS [facility] Protocol Insulin Aspart 3 - 6 units 10/01/24 08:00 10/07/24 09:02 Insulin Aspart (*Bkc) 100 Units/Ml SUB-Q Not Given TIDWM [facility] Protocol Morphine Sulfate 15 mg 09/30/24 20:28 10/07/24 03:48 Morphine Sulfate (*Crx) 15 Mg Tab Ir PO 15 mg Q8H PRN Administration pain 7-10 Morphine Sulfate 15 mg 10/07/24 09:53 Morphine Sulfate (*Crx) 15 Mg Tab Ir PO Q4H PRN Pain Rated 7-10 Ondansetron HCl 4 mg 09/30/24 19:02 10/02/24 18:18 Ondansetron Inj 4 Mg/2 Ml Vial IV PUSH 4 mg Q4H PRN Administration Nausea Pantoprazole Sodium 40 mg 10/07/24 09:00 10/07/24 09:06 Pantoprazole 40 Mg Tablet PO 40 mg QAM VU Administration Polyethylene Glycol 17 gm 10/01/24 21:11 10/07/24 09:06 Polyethylene Glycol 3350 17 Gm Powd.Pack PO 17 gm DAILY PRN Administration Constipation Sodium Chloride 500 mg 10/06/24 17:00 10/07/24 09:06 Sodium Chloride 500 Mg Tablet PO 500 mg BID VU Administration Verapamil HCl 120 mg 09/30/24 21:00 10/07/24 09:06 Verapamil Hcl 120 Mg Tablet Immed Release PO 120 mg Q12HR VU Administration Radiology Results: ITS Impressions Abdomen/Pelvis CT 09/30/24 19:00 IMPRESSION: Gallbladder hydrops without inflammatory change. Dilated common bile duct, measuring 14 mm. No obstructing stone or mass detected. Correlate with biliary labs. 3.4 cm fusiform infrarenal abdominal aortic aneurysm. Consider follow-up in 3 years. Upper Quadrant Ultrasound 10/01/24 08:43 IMPRESSION: 1. Cholelithiasis with a normal-appearing gallbladder but with mild intra and extrahepatic biliary ductal dilation which raises concern for a nonvisualized distal obstructing choledocholithiasis. Correlate with liver function tests and if clinically indicated could consider further evaluation with either MRCP or ERCP. Chest X-Ray 10/03/24 19:24 IMPRESSION: Cardiomegaly with cardiac decompensation and pulmonary edema. Pneumonitis is not excluded. Hepatobiliary Scan Nuclear Medicine 10/05/24 08:35 IMPRESSION: 1. No evident gallbladder activity consistent with acute cholecystitis. Cholecystostomy 10/05/24 16:57 IMPRESSION: 1. Successful ultrasound-guided cholecystostomy tube placement. 2. 35 mL bile was sent for aerobic, anaerobic, and fungal cultures. 3. The catheter will be managed by Dr. Brennan. Labs Labs: Laboratory Results - last 24 hr 10/06/24 10/06/24 10/06/24 11:45 12:59 17:11 WBC RBC Hgb Hct MCV MCH MCHC RDW Plt Count MPV Sodium Potassium Chloride Carbon Dioxide Anion Gap BUN Creatinine Estim Creat Clear Calc Estimated GFR Glucose POC Capillary Glucose 205 H 169 H Calcium Total Bilirubin AST ALT Alkaline Phosphatase Total Protein Albumin Vancomycin Trough 8.5 L 10/06/24 10/07/24 10/07/24 20:46 05:23 07:50 WBC 10.4 H RBC 3.26 L Hgb 9.7 L Hct 29.8 L MCV 91.4 D MCH 29.8 MCHC 32.6 RDW 14.7 H Plt Count 204 MPV 10.2 Sodium 134 L Potassium 3.5 Chloride 104 Carbon Dioxide 22 Anion Gap 8 BUN 71 H D Creatinine 2.47 H Estim Creat Clear Calc 24 Estimated GFR 25 L Glucose 145 H POC Capillary Glucose 160 H 126 H Calcium 8.3 L Total Bilirubin 0.4 AST 28 ALT 24 Alkaline Phosphatase 76 Total Protein 5.7 L Albumin 2.8 L Vancomycin Trough Susceptibilities to enterococcal bacteremia are back. Has some synergy with ampicillin with gentamicin. Will discontinue current antibiotics and start on her renal dose of ampicillin and pharmacy to dose gentamicin.
[2024-10-07 10:15] LABS: Estimated CRCL calculation 25 ml/min; Estimated Glomerular Filt Rate 27
[2024-10-07] MEDS: GENTAMICIN SULFATE INJ 425 MG in DEXTROSE 5% 100 ML 100 MG IVPB (11:31)
--- NOTE | 2024-10-07 11:37 | P.PNNP_ITS ---
Progress Note: A&P Assessment and Plan (1) Acute kidney injury: Code(s): N17.9 - Acute kidney failure, unspecified Status: Acute Assessment and Plan: * slwo improvement noted * as noted on admission * complicated by significant azotemia/elevated BUN * mild improvement in creatinine but BUN still elevated by repeat labs * agree with holding diuretics and trial of IVFs * follow respiratory status closely given hx of CHF * evaluation to date noted: * admission CT of A/P with no suspicious mass, obstructing stone, or hydronephrosis * prerenal urine electrolytes (by FeUrea) * urine eosinophils negative * mild proteinuria * normal/low CPK * UA without evidence of infection * suspect multifactorial etiology: * prerenal factors * overdiuresis(?) * infection (bacteremia + cholecystitis) * other(?) * follow trend of repeat labs and UOP (2) Stage 4 chronic kidney disease: Code(s): N18.4 - Chronic kidney disease, stage 4 (severe) Status: Chronic Assessment and Plan: * slow and progressive decline noted * GFR ~ 22 to 23 in 2020/2021 * GFR ~ 20 to 21 in 2022/2023 * GFR ~ 18 by July 2024 labs * creatinine has been running anywhere from 2.4 - 3.2mg/dl in the last 6 months * creatinine on 09/27/24 (outpatient labs) = 3.93mg/dl (GFR 15) -- but this may have related to acute medical issues currently * most likely due to diabetes and hypertension + chronic diuretic therapy (3) Azotemia: Code(s): R79.89 - Other specified abnormal findings of blood chemistry Status: Acute Assessment and Plan: * slow improvement noted * noted on admission * suspected related to diuretic therapy * however, underlying infection (see #4) likely a contributing factor as well... * no evidence of GI bleed * no other culprit medications * follow trend of BUN (4) Bacteremia: Code(s): R78.81 - Bacteremia Status: Acute Assessment and Plan: * blood culture results noted: * 10/04 blood cultures - Enterococcus faecalis * 10/05 blood cultures - Enterococcus faecalis * presumed source = gallbladder * gallbladder/bile culture - Enterococcus species * on antibiotics * follow repeat blood cultures (5) Gallbladder hydrops: Code(s): K82.1 - Hydrops of gallbladder Status: Acute Assessment and Plan: * CT of A/P without overt acute cholecystitis * however, does have significant right upper quadrant pain on palpation with nausea and decreased oral intake * RUQ ultrasound results noted as well * LFTs normal * GI recommendations noted * Surgery following * s/p cholecystostomy tube placement (on 10/05) * will eventually need cholecystectomy * continue supportive therapy (6) Anemia: Code(s): D64.9 - Anemia, unspecified Status: Acute Assessment and Plan: * due to combo of LEROY, CKD, acute illness/infection and possibly previous IVFs * no need for SANKET at this time * follow trend of H/H (7) Hypertension: Code(s): I10 - Essential (primary) hypertension Status: Chronic Assessment and Plan: * reasonable control * follow trend of hemodynamics (8) Type 2 diabetes mellitus with hyperglycemia, without long-term current use of insulin: Code(s): E11.65 - Type 2 diabetes mellitus with hyperglycemia Status: Chronic Assessment and Plan: * follow accu-cheks * glycemic control per hospitalist Will continue to follow. L Subjective Date/time seen: 10/07/24 11:37 Interval history: Follow-up for acute kidney injury/acute renal failure on chronic kidney disease. No apparent distress noted at the time of my visit; renal function/creatinine along with BUN continue to improve with supportive therapy; pain control seems adequate; no other acute complaints voiced currently. Exam 2 Narrative: General: elderly but WD/WN male in NAD Heart: normal S1 and S2; no rub Lungs: clear anteriorly Abdomen: soft, nontender, nondistended, positive bowel sounds Extremities: no cyanosis or clubbing; trace edema Skin: warm and intact Objective Data Vital Signs Vital Signs: Vital Signs Temp Pulse Resp BP Pulse Ox O2 Del Method 10/07/24 03:41 98.3 F 76 18 157/60 H 98 10/06/24 23:37 97.6 F 70 17 141/60 H 99 10/06/24 20:00 98.2 F 68 17 137/60 98 10/06/24 19:57 Room Air 10/06/24 16:00 98.5 F 60 16 123/57 L 97 Intake/Output Intake/Output: Intake & Output 10/04/24 10/05/24 10/06/24 10/07/24 23:59 23:59 23:59 23:59 Intake Total 1230 2620 2240 350 Output Total 263 650 6705 350 Balance 980 1685 -110 0 Meds/Results Medications: Active Medications Generic Name Dose Route Start Last Admin Trade Name Freq PRN Reason Stop Dose Admin Acetaminophen 650 mg 09/30/24 19:02 10/06/24 13:40 Acetaminophen 325 Mg Tablet PO 650 mg Q4H PRN Administration Mild Pain (1-3) or Fever Albuterol 2 puff 10/03/24 15:40 10/04/24 09:06 Albuterol Sulfate (*Sp) Aerosol 1 Puff INHALATION 2 puff Q6HRT PRN Administration Shortness Of Breath Or Wheezing Clopidogrel Bisulfate 75 mg 10/01/24 09:00 10/04/24 08:22 Clopidogrel Bisulfate 75 Mg Tablet PO 75 mg DAILY VU Administration Dextrose 12.5 gm 09/30/24 20:29 Dextrose 50% 25 Gm/50 Ml Syringe IV PUSH PRN PRN Hypoglycemia Protocol Docusate Sodium 100 mg 10/01/24 09:00 10/07/24 09:06 Docusate Sodium 100 Mg Capsule PO 100 mg DAILY VU Administration Ezetimibe 10 mg 10/01/24 09:00 10/07/24 09:06 Ezetimibe 10 Mg Tablet PO 10 mg DAILY VU Administration Famotidine 20 mg 09/30/24 21:00 10/07/24 09:06 Famotidine 20 Mg Tablet PO 20 mg Q12HR VU Administration Finasteride 5 mg 10/01/24 09:00 10/07/24 09:06 Finasteride 5 Mg Tablet PO 5 mg DAILY VU Administration Fluticasone Propionate 2 spray 09/30/24 20:28 10/07/24 09:06 Fluticasone Propionate 0.05% Na Spr 16 Gm Btl (*Bkc) NASAL 2 spray DAILY PRN Administration allergy symptoms Glucagon 1 mg 09/30/24 20:29 Glucagon For Inj 1 Mg Vial IM PRN PRN Hypoglycemia Protocol Glucose 15 gm 09/30/24 20:29 Glucose Oral Gel 15 Gm Of Glucse In 37.5 Gm Tube PO PRN PRN Hypoglycemia Protocol Heparin Sodium (Porcine) 5,000 units 09/30/24 21:00 10/07/24 09:06 Heparin Sodium 5,000 Units/Ml Vial SUB-Q 5,000 units Q12HR VU Administration Dextrose 1,000 mls @ 100 mls/hr 09/30/24 20:29 Dextrose 5% 1,000 Ml IVPB PRN PRN Hypoglycemia Protocol Ampicillin Sodium 2 gm in 100 mls @ 200 mls/hr 10/07/24 10:00 10/07/24 09:28 Ampicillin 2 Gm/Ns 100 Ml IVPB 200 mls/hr Q8H VU Administration Gentamicin Sulfate 425 mg/ 110.625 mls @ 100 mls/hr 10/07/24 09:40 Dextrose IVPB PRN PRN PLACEHOLDER Insulin Aspart 1 - 3 units 09/30/24 21:00 10/06/24 21:25 Insulin Aspart (*Bkc) 100 Units/Ml SUB-Q Not Given HS VU Protocol Insulin Aspart 3 - 6 units 10/01/24 08:00 10/07/24 12:10 Insulin Aspart (*Bkc) 100 Units/Ml SUB-Q Not Given TIDWM VU Protocol Morphine Sulfate 15 mg 09/30/24 20:28 10/07/24 03:48 Morphine Sulfate (*Crx) 15 Mg Tab Ir PO 15 mg Q8H PRN Administration pain 7-10 Morphine Sulfate 15 mg 10/07/24 09:53 10/07/24 11:31 Morphine Sulfate (*Crx) 15 Mg Tab Ir PO 15 mg Q4H PRN Administration Pain Rated 7-10 Ondansetron HCl 4 mg 09/30/24 19:02 10/02/24 18:18 Ondansetron Inj 4 Mg/2 Ml Vial IV PUSH 4 mg Q4H PRN Administration Nausea Pantoprazole Sodium 40 mg 10/07/24 09:00 10/07/24 09:06 Pantoprazole 40 Mg Tablet PO 40 mg QAM VU Administration Polyethylene Glycol 17 gm 10/01/24 21:11 10/07/24 09:06 Polyethylene Glycol 3350 17 Gm Powd.Pack PO 17 gm DAILY PRN Administration Constipation Sodium Chloride 500 mg 10/06/24 17:00 10/07/24 09:06 Sodium Chloride 500 Mg Tablet PO 500 mg BID VU Administration Verapamil HCl 120 mg 09/30/24 21:00 10/07/24 09:06 Verapamil Hcl 120 Mg Tablet Immed Release PO 120 mg Q12HR VU Administration Radiology Results: ITS Impressions Abdomen/Pelvis CT 09/30/24 19:00 IMPRESSION: Gallbladder hydrops without inflammatory change. Dilated common bile duct, measuring 14 mm. No obstructing stone or mass detected. Correlate with biliary labs. 3.4 cm fusiform infrarenal abdominal aortic aneurysm. Consider follow-up in 3 years. Upper Quadrant Ultrasound 10/01/24 08:43 IMPRESSION: 1. Cholelithiasis with a normal-appearing gallbladder but with mild intra and extrahepatic biliary ductal dilation which raises concern for a nonvisualized distal obstructing choledocholithiasis. Correlate with liver function tests and if clinically indicated could consider further evaluation with either MRCP or ERCP. Chest X-Ray 10/03/24 19:24 IMPRESSION: Cardiomegaly with cardiac decompensation and pulmonary edema. Pneumonitis is not excluded. Hepatobiliary Scan Nuclear Medicine 10/05/24 08:35 IMPRESSION: 1. No evident gallbladder activity consistent with acute cholecystitis. Cholecystostomy 10/05/24 16:57 IMPRESSION: 1. Successful ultrasound-guided cholecystostomy tube placement. 2. 35 mL bile was sent for aerobic, anaerobic, and fungal cultures. 3. The catheter will be managed by Dr. Brennan. Labs Labs: Laboratory Tests 10/07/24 05:23 10/07/24 10:01 10/07/24 05:23 Sodium 134 L Potassium 3.5 Chloride 104 Carbon Dioxide 22 Anion Gap 8 BUN 71 H D Creatinine 2.47 H Estim Creat Clear Calc 24 Estimated GFR 25 L Glucose 145 H Calcium 8.3 L Total Bilirubin 0.4 AST 28 ALT 24 Alkaline Phosphatase 76 Total Protein 5.7 L Albumin 2.8 L Microbiology 10/05/24 16:15 Gallbladder Anaerobic Culture - Preliminary 10/05/24 16:15 Gallbladder Aerobic Culture - Preliminary Enterococcus species 10/05/24 12:45 Blood Blood Culture - Final Enterococcus faecalis 10/04/24 12:56 Blood Blood Culture - Final Enterococcus faecalis 10/05/24 12:47 Blood Blood Culture - Preliminary Gram positive cocci in chains 10/04/24 13:05 Blood Blood Culture - Final Enterococcus faecalis
[2024-10-07 15:04] VITALS: BP 150/64; PULSE 75; RESP 18; TEMP 37.4; O2SAT 99
[2024-10-07 20:00] VITALS: BP 142/63; PULSE 75; RESP 20; TEMP 36.6; O2SAT 97
[2024-10-08] VITALS: BP 147/60; PULSE 70; RESP 20; TEMP 36.7; O2SAT 100
[2024-10-08] MEDS: AMPICILLIN 2 GM/NS 100 ML 2 GM/100 ML BAG IVPB ×3 (01:52→17:17)
[2024-10-08] MEDS: MORPHINE SULFATE (*CRX) 15 MG TAB IR PO ×3 (01:53→21:13)
[2024-10-08 04:45] VITALS: BP 154/60; PULSE 80; RESP 20; TEMP 37.5; O2SAT 100
[2024-10-08 05:14] LABS: Hematocrit 31.7 % (42.0-52.0); Hemoglobin 10.3 g/dL (14.0-18.0); Mean Corpuscular HGB Conc 32.5 g/dl (32-36); Mean Corpuscular Hemoglobin 29.8 pg (26-34); Mean Corpuscular Volume 91.6 fl (80-100); Platelet Count Result 265 k/mm3 (150-375); Red Blood Count 3.46 M/mm3 (4.6-6.20); White Blood Count 12.1 K/mm3 (4.5-10.0)
[2024-10-08 05:30] LABS: Alanine Aminotransferase 20 U/L (6-50); Albumin Level 2.6 g/dL (3.5-5.1); Alkaline Phosphatase 88 U/L (38-126); Anion Gap 9 mmol/L (4-12); Aspartate Amino Transferase 26 U/L (17-59); Bilirubin,Total 0.7 mg/dL (0.2-1.3); Blood Urea Nitrogen 59 mg/dL (9-20); Calcium 8.3 mg/dL (8.4-10.2); Carbon Dioxide 22 mmol/L (22-30); Chloride 104 mmol/L (98-107); Estimated CRCL calculation 26 ml/min; Estimated Glomerular Filt Rate 29; Glucose 122 mg/dL (65-110); Potassium 3.9 mmol/L (3.4-5.0); Sodium 135 mmol/L (137-145); Total Protein 5.5 g/dL (6.3-8.2)
--- NOTE | 2024-10-08 07:36 | PM.IMPN ---
Progress Note: A&P Assessment and Plan (1) Chest pain: Qualifiers: Chest pain type: unspecified Qualified Code(s): R07.9 - Chest pain, unspecified Code(s): R07.9 - Chest pain, unspecified Status: Acute Assessment and Plan: -Chest pain seems atypical in nature, pt continue to deny CP. -Troponin are elevated but flat. Will complete troponin series. -Pain seems more consistent with GI cause with reported indigestion and significant right upper quadrant pain. -Will continue Antihypertensives and Plavix. -->HOLD Plavix starting 10/05 for eventual lap torrie per surg 10/07: Per surg: No longer plan to proceed with cholecystectomy this week. Patient to ill with sepsis and bacteremia as well as acute on chronic renal failure. Will resume Plavix today. Pt continues to deny CP/SOB or any other worrisome sx. (2) Acute kidney injury superimposed on CKD: Code(s): N17.9 - Acute kidney failure, unspecified; N18.9 - Chronic kidney disease, unspecified Status: Acute Assessment and Plan: Patient has chronic kidney disease stage 4 with acute kidney injury. Most likely prerenal due to intervascular volume depletion. - Hold Lasix and continue IV fluid hydration at 75ml/hr. - Nephrology was consulted from the ER. - Continue flomax 10/02- cr/bun 2.96/100 10/03: Cr/BUN: 3.26/91, pending neph rounds due to worsening Cr 10/04: Cr/BUN: 3.43/90, Started IVF again today, continue to hold lasix 10/05: Cr/BUN: 3.54/[address] Lopez today, he believes that once the torrie tube is placed and with IV abx on board, kidney labs should begin to normalize back to pt baseline which is CKD4. Will continue to monitor levels. Dr. Lopez on for the weekend. 10/06: Cr/BUN: 2.84/84, starting to trend down, will continue to monitor daily IVF D/C due to better trending kidneys, lasix still on hold (no pulm congestion), and adequate intake. 10/07: Kidney levels continuing to improve Cr/BUN: 2.33/27 -If continues to improve, will start Lasix back up tomorrow. at the bedside today concerned for his BLE edema, which has not worsened per my exam. Pt also denies CP/SOB. 10/08: Kidney levels continuing to improve Cr/BUN: 2. -Lasix restarted today (3) Acute uremia: Code(s): N19 - Unspecified kidney failure Status: Acute Assessment and Plan: Possibly due to hypovolemia. GI bleed is less likely given patient's hemoglobin is stable at 12 in ED and patient denies symptoms of hematemesis hematochezia or melena. Pt continues to deny any blood loss. -Will hold Lasix and continue IV fluid hydration and repeat CBC and electrolyte panel in a.m. -Decrease IV fluids to 50 ml and monitor I/O closely 10/03: -H/H as of 10/03: 9.6/30.5 -Pt appetite still decreased, continue IVF 50/hr 10/04: -H/H 9.8/30.5 -Started again on IVF to try to normalize creat, pt will be NPO at [facility] anyway for procedure tomorrow. 10/05: -H/H 9.9/31.3 -IVF down to 75 ml/hr for NPO status and to avoid pulm edema Spoke to Dr. Lopez today, he believes that once the torrie tube is placed and with IV abx on board, kidney labs should begin to normalize back to pt baseline which is CKD4. Will continue to monitor levels. Dr. Lopez on for the weekend. 10/06: -H/H 10.8/35.4 -IVF stopped today, appetite better 10/07: -H/H: 9.7/29.8 10/08: -H/H: 10.3/31.7 (4) Gallbladder hydrops: Code(s): K82.1 - Hydrops of gallbladder Status: Acute Assessment and Plan: CT does not suggest overt acute cholecystitis but patient does have significant kit right upper quadrant pain on palpation and worsening of his nausea with palpation of right upper quadrant. -RUQ US for better visualization of the gallbladder: 1. Cholelithiasis with a normal-appearing gallbladder but with mild intra and extrahepatic biliary ductal dilation which raises concern for a nonvisualized distal obstructing choledocholithiasis. Correlate with liver function tests and if clinically indicated could consider further evaluation with either MRCP or ERCP. -->Consulted GI 10/03, pending recs/rounding -Bilirubin and transaminases are normal. -Patient does have some leukocytosis but no fever. -Will hold off on adding antibiotic coverage at this time and will repeat CBC in a.m. 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 His symptoms are likely related to his gallbadder and there is concern for choledocholithiasis given his common bile duct dilatation on imaging. Since his Plavix has been continued, he would not be a candidate for a laparoscopic cholecystectomy at this time. He received his last dose of Plavix this morning, which I have put on hold. Since he continues to have symptoms, we would recommend proceeding with percutaneous cholecystostomy tube placement to treat his cholecystitis. We will eventually consider proceeding with a laparoscopic cholecystectomy with intraoperative cholangiogram to evaluate for choledocholithiasis, but this will be at a later date, possibly as an outpatient depending on how he is progressing medically, when his Plavix can be held for an adequate amount of time. This would also allow time for improved medical optimization in regards to his renal failure and pulmonary edema. Will repeat labs tomorrow and include a CMP to re-evaluate his liver enzymes. Although his WBC count has been trending down, I will also start him on broad-spectrum IV antibiotics to cover for cholecystitis/cholangitis given his persistent pain/fever/leukocytosis. Plavix has been continued since his admission. He received a dose this morning. Will hold his Plavix now, which ideally is held for 5 days prior to a cholecystectomy. -->Plan for torrie tube placement tomorrow, surg started ceftriaxone and flagyl today 10/05: HIDA scan and cholecystectomy tube placement today. Low fat diet started after procedure. Will continue to monitor tube and daily AM labs. 10/06: Pt looking a lot better since tube placement yesterday. Pt reporting some pain in his RLQ and tube insertion site but per pt his morphine home dose has been taking care of the pain. -Per surg note today: Cholecystostomy tube placed yesterday. Having pain at drain site. Cholecystostomy tube will alleviate acute cholecystitis. Will not help if patient has cholangitis. Although the bile ducts are dilated, liver function tests are normal. Cholangitis seems unlikely. Bacteremia: Receiving appropriate antibiotics with vancomycin and cefepime. Pending susceptibility testing on the Enterococcus 10/07: Per surg: Relieved with placement cholecystostomy tube. Abdomen benign and no further abdominal pain. No longer plan to proceed with cholecystectomy this week. Patient to ill with sepsis and bacteremia as well as acute on chronic renal failure. Will resume Plavix today. -Pt denies pain to his abd or torrie tube site. 10/08: -Slight WBC increase overnight, 10.4-->12.1 -Per surg rounds: Relieved with placement cholecystostomy tube. Abdomen benign and no further abdominal pain. No longer plan to proceed with cholecystectomy this week. Patient too ill with sepsis and bacteremia as well as acute on chronic renal failure. Plavix resumed. -Switched abx yesterday from vanc ampicillin and gentamicin based on susceptibilities of the Enterococcus per pharm (5) Type 2 diabetes mellitus with hyperglycemia, without long-term current use of insulin: Code(s): E11.65 - Type 2 diabetes mellitus with hyperglycemia Status: Acute Assessment and Plan: Hold Actos -Moderate dose sliding scale insulin with Accu-Cheks a.c. HS and hypoglycemia protocol. -Glucose has been stable during stay (6) Chronic pain: Qualifiers: Chronic pain type: chronic pain syndrome Qualified Code(s): G89.4 - Chronic pain syndrome Code(s): G89.29 - Other chronic pain Status: Acute Assessment and Plan: Will resume patient's home morphine 15 mg Q 8 hours p.r.n. pain 7-10. (7) Abdominal aortic aneurysm (AAA) 3.0 cm to 5.5 cm in diameter in male: Code(s): I71.40 - Abdominal aortic aneurysm, without rupture, unspecified Status: Acute Assessment and Plan: Likely chronic will defer follow-up to patient's primary care provider for serial imaging (8) Antiplatelet or antithrombotic long-term use: Code(s): Z79.02 - MCC (current) use of antithrombotics/antiplatelets Status: Acute Assessment and Plan: Pt with hx of pacemaker and plavix long-term use. Per surg: Plavix has been continued since his admission. He received a dose this morning. Will hold his Plavix now, which ideally is held for 5 days prior to a cholecystectomy. 10/07: Per surg: No longer plan to proceed with cholecystectomy this week. Patient to ill with sepsis and bacteremia as well as acute on chronic renal failure. Will resume Plavix today. -Plan for outpatient lap torrie potentially, surg to continue to follow. (9) Bacteremia: Code(s): R78.81 - Bacteremia Status: Acute Assessment and Plan: 10/05: Both blood cultures resulted today with Gram + cocci in chains -->Spoke with ID pharm, reports could be either strep strain (covered by Ceftriaxone) or Entero strain (covered by Vanc) --->Will start vanc today to treat if ends up being entero strain to get ahead of the infection, will f/u tomorrow for final reads -Pt on Ceftriaxone 2g already via surg for low grade fevers and leukocytosis, will continue. -Ordered echo 10/05 to r/o endocarditis -Also repeat order for BC placed today 10/06: X1 BC final result yielding enterococcus faecalis, will continue with vanc, pending second final BC result -Will continue to trend BCs 10/07: After a slight bump, WBC continues to downtrend slightly, will continue to monitor. Per surg today: Spoke with pharmacist. Will change to ampicillin and gentamicin based on susceptibilities of the Enterococcus -->Gallbladder wound culture prelim resulted today for Enterococcus, continue ampicillin and gentamicin -Will continue to trend BCs, new draw tomorrow AM scheduled 10/08: -Slight WBC increase overnight, 10.4-->12.1 -Per surg: Continue ampicillin and gentamicin based on susceptibilities of the Enterococcus. -Switched abx yesterday from vanc ampicillin and gentamicin based on susceptibilities of the Enterococcus per pharm -Will continue to monitor daily labs (10) Hyponatremia: Code(s): E87.1 - Hypo-osmolality and hyponatremia Status: Acute Assessment and Plan: Levels have been low since admission despite IVF NS. -Sodium chl tablets started 10/06 to normalize -Will continue to trend pt status and daily labs 10/07: Na 134 10/08: Na 135 Plan Torrie tube placement 10/05, continue to monitor pt with labs, VS, and pain control. Surg started IV abx 10/04. Surg restarted Plavix 10/07 due to pt being too sick for lap torrie during this admission. Per surg, per pharm, abx changed for wound culture +enterococcus coverage. Obtained new BC this AM, will follow. Subjective Date/time seen: 10/08/24 1158 Interval history: 88-year-old male with a past medical history of heart valve replacement, CHF, chronic kidney disease, BPH, type 2 diabetes mellitus and chronic pain who presented to the ER via EMS from home due to nausea, abdominal pain and chest pain for 3 days. The patient reports that he has been having initial symptoms of abdominal pain of his generalized for the last 3 days. In ED- BUN of 120 creatinine 3.86. He was hyperglycemic in the ER. Pt is seen and examined.He denies any chest pain, feels overall tired and somewhat nauseated. 10/02 - pt is seen and examined. He is very weak, unable to do much on his own. No abd pain, no nausea today. Cr elevated overnight- nephrology following. 10/03: Pt continues to report RUQ abd pain, nausea, and decreased appetite. pt denies CP. Pt is confused why he is still having pain, I updated him that his abd US showed that he may have a gallstone that may be trapped in his bile duct today and that may be why he is still in pain. Updated him on the plan for GI to come see him to discuss further steps, pt agreeable with the plan. Pt encouraged to keep trying to eat and drink fluids, continue IVF as of now. 10/04: Pt reports that his RUQ pain today is mildly worse, but denies any nausea and he states I have not had any of that for some time now. Updated him on the plan from GI for surgery to consult due to the need of a lap torrie to visualize the probable stone due to not being able to obtain an MRCP because he has a pacemaker. Upon exam today, pt drowsy, but awakens to verbal stimuli. I spoke to on the phone and she states that his drowsiness state is baseline. 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 Reiterated plan for surgery to consult on plan which they recommended proceeding with percutaneous cholecystostomy tube placement to treat his cholecystitis due to being on his Plavix. 10/05: Pt sleeping when entered room, awakens to verbal stimuli. Pt continues to report mild RUQ pain and deny nausea. Updated him on the plan for additional imaging today as well as a torrie tube placement, pt agreeable with the plan. Transport here to get pt now. 10/06: Pt more alert today, , Nallely, at the bedside. Pt sitting up in chair. Reporting pain to insertion site of Torrie tube, but reports that his morphine he gets at baseline has been helping with that pain. Pt denies SOB/CP, increased BLE edema, or any other sx. 10/07: Pt up and sitting in the chair. Pt reporting his chronic pain in bilateral hips and back today but states that it is controlled by his home pain medication. Pt reports BM x2 days ago. Continues to deny CP, SOB, or increased BLE edema. Since kidneys are looking better daily, likely to restart his Lasix tomorrow. 10/08: Pt working with PT upon my arrival to his room. Pt with no new abd pain or other sx. I updated his on the phone that we were able to restart his lasix today due to his kidneys being back at baseline. Will continue to monitor. Review of Systems Review of Systems: 12 systems were reviewed with pertinent positives and negatives per HPI. Except as documented in the HPI, all other systems were reviewed and are negative. Exam Narrative: Pt working with PT Const: General: comfortable Other: No acute distress, well-developed, obese, appears stated age HENMT: Face/Nose/Sinus: Normal nares present Mouth: Yes moist mucous membranes Other: Upper and lower dentures in place Eyes: General: appearance normal, both eyes and all related structures Sclera: sclerae normal Other: Bilateral lens replacements noted - R 4mm, L 3mm pupils, no conjunctival pallor, no scleral icterus Neck: Other: Large neck circumference, no JVD, loss of cervical lordosis Resp: Effort & Inspection: normal respiratory effort Auscultation: clear to auscultation bilaterally Other: Clear to auscultation bilaterally, no increased work of breathing Cardio: Rate: regular rate Rhythm: regular rhythm Other: Regular rate, regular rhythm, no murmur, 2+ bilateral radial and pedal pulses GI: Inspection: non-distended Auscultation: normal bowel sounds Other: No pain in abd to palpitation Torrie tube with bile colored drainage, minimal Skin: General skin exam: normal color and No rashes Rashes: no rashes noted Neuro: Speech: normal speech Motor exam (neuro): Normal motor muscle tone present throughout Sensory Exam: normal sensation Other: A&O x4, speech is clear, mild hearing loss, no localizing neurologic deficit noted during the course of conversation. Pt at his baseline grogginess, attributing to home pain regimen Extrem: General: normal to inspection Other: BLE: 1+ pitting edema Psych: Affect: normal affect Other: Flat affect, cooperative, appropriate insight and judgment Objective Data Vital Signs Vital Signs: Vital Signs - 24 hr 10/07/24 09:35 10/07/24 15:04 10/07/24 20:00 Temperature 99.3 F 97.9 F Pulse Rate 75 75 Respiratory Rate 18 20 Blood Pressure 150/64 H 142/63 H Pulse Oximetry 99 97 Oxygen Delivery Room Air 10/07/24 20:00 10/08/24 00:00 10/08/24 04:45 Temperature 98.0 F 99.5 F Pulse Rate 70 80 Respiratory Rate 20 20 Blood Pressure 147/60 H 154/60 H Pulse Oximetry 100 100 Oxygen Delivery Room Air Intake/Output Intake/Output: Intake & Output 10/05/24 10/06/24 10/07/24 10/08/24 23:59 23:59 23:59 23:59 Intake Total 2620 2240 1080 240 Output Total 935 2350 550 900 Balance 1685 110 530 -660 Meds/Results Medications: Active Medications Generic Name Dose Route Start Last Admin Trade Name Freq PRN Reason Stop Dose Admin Acetaminophen 650 mg 09/30/24 19:02 10/06/24 13:40 Acetaminophen 325 Mg Tablet PO 650 mg Q4H PRN Administration Mild Pain (1-3) or Fever Albuterol 2 puff 10/03/24 15:40 10/04/24 09:06 Albuterol Sulfate (*Sp) Aerosol 1 Puff INHALATION 2 puff Q6HRT PRN Administration Shortness Of Breath Or Wheezing Clopidogrel Bisulfate 75 mg 10/01/24 09:00 10/04/24 08:22 Clopidogrel Bisulfate 75 Mg Tablet PO 75 mg DAILY VU Administration Dextrose 12.5 gm 09/30/24 20:29 Dextrose 50% 25 Gm/50 Ml Syringe IV PUSH PRN PRN Hypoglycemia Protocol Docusate Sodium 100 mg 10/01/24 09:00 10/07/24 09:06 Docusate Sodium 100 Mg Capsule PO 100 mg DAILY VU Administration Ezetimibe 10 mg 10/01/24 09:00 10/07/24 09:06 Ezetimibe 10 Mg Tablet PO 10 mg DAILY VU Administration Famotidine 20 mg 09/30/24 21:00 10/07/24 21:52 Famotidine 20 Mg Tablet PO 20 mg Q12HR VU Administration Finasteride 5 mg 10/01/24 09:00 10/07/24 09:06 Finasteride 5 Mg Tablet PO 5 mg DAILY VU Administration Fluticasone Propionate 2 spray 09/30/24 20:28 10/07/24 09:06 Fluticasone Propionate 0.05% Na Spr 16 Gm Btl (*Bkc) NASAL 2 spray DAILY PRN Administration allergy symptoms Furosemide 0 mg 10/08/24 09:00 Furosemide 40 Mg Tablet BY MOUTH .COMPLEX VU Glucagon 1 mg 09/30/24 20:29 Glucagon For Inj 1 Mg Vial IM PRN PRN Hypoglycemia Protocol Glucose 15 gm 09/30/24 20:29 Glucose Oral Gel 15 Gm Of Glucse In 37.5 Gm Tube PO PRN PRN Hypoglycemia Protocol Heparin Sodium (Porcine) 5,000 units 09/30/24 21:00 10/07/24 21:52 Heparin Sodium 5,000 Units/Ml Vial SUB-Q 5,000 units Q12HR VU Administration Dextrose 1,000 mls @ 100 mls/hr 09/30/24 20:29 Dextrose 5% 1,000 Ml IVPB PRN PRN Hypoglycemia Protocol Ampicillin Sodium 2 gm in 100 mls @ 200 mls/hr 10/07/24 10:00 10/08/24 01:52 Ampicillin 2 Gm/Ns 100 Ml IVPB 200 mls/hr Q8H VU Administration Gentamicin Sulfate 425 mg/ 110.625 mls @ 100 mls/hr 10/09/24 12:00 Dextrose IVPB Q48H VU Insulin Aspart 1 - 3 units 09/30/24 21:00 10/08/24 00:36 Insulin Aspart (*Bkc) 100 Units/Ml SUB-Q Not Given HS [facility] Protocol Insulin Aspart 3 - 6 units 10/01/24 08:00 10/07/24 16:54 Insulin Aspart (*Bkc) 100 Units/Ml SUB-Q Not Given TIDWM [facility] Protocol Morphine Sulfate 15 mg 09/30/24 20:28 10/07/24 22:04 Morphine Sulfate (*Crx) 15 Mg Tab Ir PO 15 mg Q8H PRN Administration pain 7-10 Morphine Sulfate 15 mg 10/07/24 09:53 10/08/24 01:53 Morphine Sulfate (*Crx) 15 Mg Tab Ir PO 15 mg Q4H PRN Administration Pain Rated 7-10 Ondansetron HCl 4 mg 09/30/24 19:02 10/02/24 18:18 Ondansetron Inj 4 Mg/2 Ml Vial IV PUSH 4 mg Q4H PRN Administration Nausea Pantoprazole Sodium 40 mg 10/07/24 09:00 10/07/24 09:06 Pantoprazole 40 Mg Tablet PO 40 mg QAM VU Administration Polyethylene Glycol 17 gm 10/01/24 21:11 10/07/24 09:06 Polyethylene Glycol 3350 17 Gm Powd.Pack PO 17 gm DAILY PRN Administration Constipation Sodium Chloride 500 mg 10/06/24 17:00 10/07/24 17:31 Sodium Chloride 500 Mg Tablet PO 500 mg BID VU Administration Verapamil HCl 120 mg 09/30/24 21:00 10/07/24 21:52 Verapamil Hcl 120 Mg Tablet Immed Release PO 120 mg Q12HR VU Administration Radiology Results: ITS Impressions Abdomen/Pelvis CT 09/30/24 19:00 IMPRESSION: Gallbladder hydrops without inflammatory change. Dilated common bile duct, measuring 14 mm. No obstructing stone or mass detected. Correlate with biliary labs. 3.4 cm fusiform infrarenal abdominal aortic aneurysm. Consider follow-up in 3 years. Upper Quadrant Ultrasound 10/01/24 08:43 IMPRESSION: 1. Cholelithiasis with a normal-appearing gallbladder but with mild intra and extrahepatic biliary ductal dilation which raises concern for a nonvisualized distal obstructing choledocholithiasis. Correlate with liver function tests and if clinically indicated could consider further evaluation with either MRCP or ERCP. Chest X-Ray 10/03/24 19:24 IMPRESSION: Cardiomegaly with cardiac decompensation and pulmonary edema. Pneumonitis is not excluded. Hepatobiliary Scan Nuclear Medicine 10/05/24 08:35 IMPRESSION: 1. No evident gallbladder activity consistent with acute cholecystitis. Cholecystostomy 10/05/24 16:57 IMPRESSION: 1. Successful ultrasound-guided cholecystostomy tube placement. 2. 35 mL bile was sent for aerobic, anaerobic, and fungal cultures. 3. The catheter will be managed by Dr. Brennan. Labs Labs: Laboratory Results - last 24 hr 10/07/24 10/07/24 10/07/24 07:50 10:01 11:59 WBC RBC Hgb Hct MCV MCH MCHC RDW Plt Count MPV Sodium Potassium Chloride Carbon Dioxide Anion Gap BUN Creatinine 2.33 H Estim Creat Clear Calc 25 Estimated GFR 27 L Glucose POC Capillary Glucose 126 H 171 H Calcium Total Bilirubin AST ALT Alkaline Phosphatase Total Protein Albumin Random Gentamicin 10/07/24 10/07/24 10/08/24 16:41 19:53 04:55 WBC 12.1 H RBC 3.46 L Hgb 10.3 L Hct 31.7 L MCV 91.6 MCH 29.8 MCHC 32.5 RDW 15.3 H Plt Count 265 MPV 11.1 H Sodium 135 L Potassium 3.9 Chloride 104 Carbon Dioxide 22 Anion Gap 9 BUN 59 H D Creatinine 2.15 H Estim Creat Clear Calc 26 Estimated GFR 29 L Glucose 122 H POC Capillary Glucose 145 H Calcium 8.3 L Total Bilirubin 0.7 AST 26 ALT 20 Alkaline Phosphatase 88 Total Protein 5.5 L Albumin 2.6 L Random Gentamicin 9.8 Quality VTE Prophylaxis VTE prophylaxis: pharmacologic ordered (Heparin 5000 units subQ q.12 hours.)
[2024-10-08] MEDS: FLUTICASONE PROPIONATE 0.05% NA SPR 16 GM BTL (*BKC) 2 SPRAY NASAL (08:25)
[2024-10-08] MEDS: DOCUSATE SODIUM 100 MG CAPSULE PO (08:26)
[2024-10-08] MEDS: FAMOTIDINE 20 MG TABLET PO ×2 (08:26→21:14)
[2024-10-08] MEDS: SODIUM CHLORIDE 500 MG TABLET PO ×2 (08:26→16:25)
[2024-10-08] MEDS: CLOPIDOGREL BISULFATE 75 MG TABLET PO (08:26)
[2024-10-08] MEDS: EZETIMIBE 10 MG TABLET PO (08:27)
[2024-10-08] MEDS: PANTOPRAZOLE 40 MG TABLET PO (08:27)
[2024-10-08] MEDS: FINASTERIDE 5 MG TABLET PO (08:27)
[2024-10-08 08:28] VITALS: RESP 20; O2SAT 100
[2024-10-08] MEDS: VERAPAMIL HCL 120 MG TABLET IMMED RELEASE PO ×2 (08:28→21:14)
--- NOTE | 2024-10-08 10:29 | PM.PNGS ---
Progress Note: A&P Assessment and Plan (1) Cholelithiasis with acute cholecystitis without biliary obstruction: Qualifiers: Cholelithiasis location: gallbladder Qualified Code(s): K80.00 - Calculus of gallbladder with acute cholecystitis without obstruction Code(s): K80.00 - Calculus of gallbladder with acute cholecystitis without obstruction Status: Acute Assessment and Plan: Relieved with placement cholecystostomy tube. Abdomen benign and no further abdominal pain. (2) Enterococcal bacteremia: Code(s): R78.81 - Bacteremia; B95.2 - Enterococcus as the cause of diseases classified elsewhere Status: Acute Assessment and Plan: Continue ampicillin and gentamicin based on susceptibilities of the Enterococcus. 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 Patient too ill with sepsis and bacteremia as well as acute on chronic renal failure. Plavix resumed. 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: Qualifiers: Diabetes mellitus group home insulin use: without group home use Diabetes mellitus complication detail: with chronic kidney disease Chronic kidney disease stage: unspecified stage Qualified Code(s): E11.22 - Type 2 diabetes mellitus with diabetic chronic kidney disease Code(s): E11.29 - Type 2 diabetes mellitus with other diabetic kidney complication Status: Chronic (6) Acute kidney injury superimposed on CKD: Code(s): N17.9 - Acute kidney failure, unspecified; N18.9 - Chronic kidney disease, unspecified Status: Acute Assessment and Plan: Improving slowly (7) 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 He complains of abdominal pain around his drain site. He also states that he vomited this morning, but nurse denied any episodes of emesis this morning and none charted. Per chart, patient had a bowel movement yesterday. Exam GI: Inspection: distended GI Palp: Yes Tenderness to palpation present (GI) (tenderness to palpation. Patient says pain worseo n left side.) Auscultation: normal bowel sounds Objective Data Vital Signs Vital Signs: Vital Signs - 24 hr 10/07/24 15:04 10/07/24 20:00 10/07/24 20:00 Temperature 99.3 F 97.9 F Pulse Rate 75 75 Respiratory Rate 18 20 Blood Pressure 150/64 H 142/63 H Pulse Oximetry 99 97 Oxygen Delivery Room Air 10/08/24 00:00 10/08/24 04:45 Temperature 98.0 F 99.5 F Pulse Rate 70 80 Respiratory Rate 20 20 Blood Pressure 147/60 H 154/60 H Pulse Oximetry 100 100 Oxygen Delivery Intake/Output Intake/Output: Intake & Output 10/05/24 10/06/24 10/07/24 10/08/24 23:59 23:59 23:59 23:59 Intake Total 2620 2240 1080 580 Output Total 935 2350 550 900 Balance 1685 -110 530 -320 Meds/Results Medications: Active Medications Generic Name Dose Route Start Last Admin Trade Name Freq PRN Reason Stop Dose Admin Acetaminophen 650 mg 09/30/24 19:02 10/06/24 13:40 Acetaminophen 325 Mg Tablet PO 650 mg Q4H PRN Administration Mild Pain (1-3) or Fever Albuterol 2 puff 10/03/24 15:40 10/04/24 09:06 Albuterol Sulfate (*Sp) Aerosol 1 Puff INHALATION 2 puff Q6HRT PRN Administration Shortness Of Breath Or Wheezing Clopidogrel Bisulfate 75 mg 10/01/24 09:00 10/08/24 08:26 Clopidogrel Bisulfate 75 Mg Tablet PO 75 mg DAILY VU Administration Dextrose 12.5 gm 09/30/24 20:29 Dextrose 50% 25 Gm/50 Ml Syringe IV PUSH PRN PRN Hypoglycemia Protocol Docusate Sodium 100 mg 10/01/24 09:00 10/08/24 08:26 Docusate Sodium 100 Mg Capsule PO 100 mg DAILY VU Administration Ezetimibe 10 mg 10/01/24 09:00 10/08/24 08:27 Ezetimibe 10 Mg Tablet PO 10 mg DAILY VU Administration Famotidine 20 mg 09/30/24 21:00 10/08/24 08:26 Famotidine 20 Mg Tablet PO 20 mg Q12HR VU Administration Finasteride 5 mg 10/01/24 09:00 10/08/24 08:27 Finasteride 5 Mg Tablet PO 5 mg DAILY VU Administration Fluticasone Propionate 2 spray 09/30/24 20:28 10/08/24 08:25 Fluticasone Propionate 0.05% Na Spr 16 Gm Btl (*Bkc) NASAL 2 spray DAILY PRN Administration allergy symptoms Furosemide 40 mg 10/08/24 09:00 Furosemide 40 Mg Tablet BY MOUTH BID PRN Edema Glucagon 1 mg 09/30/24 20:29 Glucagon For Inj 1 Mg Vial IM PRN PRN Hypoglycemia Protocol Glucose 15 gm 09/30/24 20:29 Glucose Oral Gel 15 Gm Of Glucse In 37.5 Gm Tube PO PRN PRN Hypoglycemia Protocol Heparin Sodium (Porcine) 5,000 units 09/30/24 21:00 10/08/24 08:28 Heparin Sodium 5,000 Units/Ml Vial SUB-Q 5,000 units Q12HR VU Administration Dextrose 1,000 mls @ 100 mls/hr 09/30/24 20:29 Dextrose 5% 1,000 Ml IVPB PRN PRN Hypoglycemia Protocol Ampicillin Sodium 2 gm in 100 mls @ 200 mls/hr 10/07/24 10:00 10/08/24 09:45 Ampicillin 2 Gm/Ns 100 Ml IVPB 200 mls/hr Q8H VU Administration Gentamicin Sulfate 425 mg/ 110.625 mls @ 100 mls/hr 10/09/24 12:00 Dextrose IVPB Q48H VU Insulin Aspart 1 - 3 units 09/30/24 21:00 10/08/24 00:36 Insulin Aspart (*Bkc) 100 Units/Ml SUB-Q Not Given HS [facility] Protocol Insulin Aspart 3 - 6 units 10/01/24 08:00 10/08/24 08:18 Insulin Aspart (*Bkc) 100 Units/Ml SUB-Q Not Given TIDWM VU Protocol Morphine Sulfate 15 mg 09/30/24 20:28 10/08/24 08:27 Morphine Sulfate (*Crx) 15 Mg Tab Ir PO 15 mg Q8H PRN Administration pain 7-10 Morphine Sulfate 15 mg 10/07/24 09:53 10/08/24 01:53 Morphine Sulfate (*Crx) 15 Mg Tab Ir PO 15 mg Q4H PRN Administration Pain Rated 7-10 Ondansetron HCl 4 mg 09/30/24 19:02 10/02/24 18:18 Ondansetron Inj 4 Mg/2 Ml Vial IV PUSH 4 mg Q4H PRN Administration Nausea Pantoprazole Sodium 40 mg 10/07/24 09:00 10/08/24 08:27 Pantoprazole 40 Mg Tablet PO 40 mg QAM VU Administration Polyethylene Glycol 17 gm 10/01/24 21:11 10/07/24 09:06 Polyethylene Glycol 3350 17 Gm Powd.Pack PO 17 gm DAILY PRN Administration Constipation Sodium Chloride 500 mg 10/06/24 17:00 10/08/24 08:26 Sodium Chloride 500 Mg Tablet PO 500 mg BID VU Administration Verapamil HCl 120 mg 09/30/24 21:00 10/08/24 08:28 Verapamil Hcl 120 Mg Tablet Immed Release PO 120 mg Q12HR VU Administration Radiology Results: ITS Impressions Abdomen/Pelvis CT 09/30/24 19:00 IMPRESSION: Gallbladder hydrops without inflammatory change. Dilated common bile duct, measuring 14 mm. No obstructing stone or mass detected. Correlate with biliary labs. 3.4 cm fusiform infrarenal abdominal aortic aneurysm. Consider follow-up in 3 years. Upper Quadrant Ultrasound 10/01/24 08:43 IMPRESSION: 1. Cholelithiasis with a normal-appearing gallbladder but with mild intra and extrahepatic biliary ductal dilation which raises concern for a nonvisualized distal obstructing choledocholithiasis. Correlate with liver function tests and if clinically indicated could consider further evaluation with either MRCP or ERCP. Chest X-Ray 10/03/24 19:24 IMPRESSION: Cardiomegaly with cardiac decompensation and pulmonary edema. Pneumonitis is not excluded. Hepatobiliary Scan Nuclear Medicine 10/05/24 08:35 IMPRESSION: 1. No evident gallbladder activity consistent with acute cholecystitis. Cholecystostomy 10/05/24 16:57 IMPRESSION: 1. Successful ultrasound-guided cholecystostomy tube placement. 2. 35 mL bile was sent for aerobic, anaerobic, and fungal cultures. 3. The catheter will be managed by Dr. Brennan. Labs Labs: Laboratory Results - last 24 hr 10/07/24 10/07/24 10/07/24 11:59 16:41 19:53 WBC RBC Hgb Hct MCV MCH MCHC RDW Plt Count MPV Sodium Potassium Chloride Carbon Dioxide Anion Gap BUN Creatinine Estim Creat Clear Calc Estimated GFR Glucose POC Capillary Glucose 171 H 145 H Calcium Total Bilirubin AST ALT Alkaline Phosphatase Total Protein Albumin Random Gentamicin 9.8 10/08/24 10/08/24 04:55 08:01 WBC 12.1 H RBC 3.46 L Hgb 10.3 L Hct 31.7 L MCV 91.6 MCH 29.8 MCHC 32.5 RDW 15.3 H Plt Count 265 MPV 11.1 H Sodium 135 L Potassium 3.9 Chloride 104 Carbon Dioxide 22 Anion Gap 9 BUN 59 H D Creatinine 2.15 H Estim Creat Clear Calc 26 Estimated GFR 29 L Glucose 122 H POC Capillary Glucose 105 Calcium 8.3 L Total Bilirubin 0.7 AST 26 ALT 20 Alkaline Phosphatase 88 Total Protein 5.5 L Albumin 2.6 L Random Gentamicin
--- NOTE | 2024-10-08 12:06 | P.PNNP_ITS ---
Progress Note: A&P Assessment and Plan (1) Acute kidney injury: Code(s): N17.9 - Acute kidney failure, unspecified Status: Acute Assessment and Plan: * improvement noted (if not back to baseline) * as noted on admission * complicated by significant azotemia/elevated BUN * mild improvement in creatinine but BUN still elevated by repeat labs * agree with holding diuretics and trial of IVFs * follow respiratory status closely given hx of CHF * evaluation to date noted: * admission CT of A/P with no suspicious mass, obstructing stone, or hydronephrosis * prerenal urine electrolytes (by FeUrea) * urine eosinophils negative * mild proteinuria * normal/low CPK * UA without evidence of infection * suspect multifactorial etiology: * prerenal factors * overdiuresis * infection (bacteremia + cholecystitis) * other(?) * follow trend of repeat labs and UOP (2) Stage 4 chronic kidney disease: Code(s): N18.4 - Chronic kidney disease, stage 4 (severe) Status: Chronic Assessment and Plan: * slow and progressive decline noted * GFR ~ 22 to 23 in 2020/2021 * GFR ~ 20 to 21 in 2022/2023 * GFR ~ 18 by July 2024 labs * creatinine has been running anywhere from 2.4 - 3.2mg/dl in the last 6 months * creatinine on 09/27/24 (outpatient labs) = 3.93mg/dl (GFR 15) -- but this may have related to his acute medical issues currently * most likely due to diabetes and hypertension + chronic diuretic therapy (3) Azotemia: Code(s): R79.89 - Other specified abnormal findings of blood chemistry Status: Acute Assessment and Plan: * slow improvement noted * noted on admission * suspected related to diuretic therapy * however, underlying infection (see #4) likely a contributing factor as well... * no evidence of GI bleed * no other culprit medications * follow trend of BUN (4) Bacteremia: Code(s): R78.81 - Bacteremia Status: Acute Assessment and Plan: * blood culture results noted: * 10/04 blood cultures - Enterococcus faecalis * 10/05 blood cultures - Enterococcus faecalis * presumed source = gallbladder * gallbladder/bile culture - Enterococcus faecalis * on antibiotics * follow repeat blood cultures (5) Gallbladder hydrops: Code(s): K82.1 - Hydrops of gallbladder Status: Acute Assessment and Plan: * CT of A/P without overt acute cholecystitis * however, does have significant right upper quadrant pain on palpation with nausea and decreased oral intake * RUQ ultrasound results noted as well * LFTs normal * GI recommendations noted * Surgery following * s/p cholecystostomy tube placement (on 10/05) * will eventually need cholecystectomy * continue supportive therapy (6) Anemia: Code(s): D64.9 - Anemia, unspecified Status: Acute Assessment and Plan: * due to combo of LEROY, CKD, acute illness/infection and possibly previous IVFs * no need for SANKET at this time * follow trend of H/H (7) Hypertension: Code(s): I10 - Essential (primary) hypertension Status: Chronic Assessment and Plan: * reasonable control * follow trend of hemodynamics (8) Type 2 diabetes mellitus with hyperglycemia, without long-term current use of insulin: Code(s): E11.65 - Type 2 diabetes mellitus with hyperglycemia Status: Chronic Assessment and Plan: * follow accu-cheks * glycemic control per hospitalist Will continue to follow. L Subjective Date/time seen: 10/08/24 12:06 Interval history: Follow-up for acute kidney injury/acute renal failure on chronic kidney disease. Renal function/creatinine as well as BUN continue to improve if not back to baseline (although was off diuretic therapy since admission); no apparent new symptoms or problems voiced at the time of my visit; tolerating antibiotic therapy; working with PT/OT as tolerated. Exam 2 Narrative: General: elderly but WD/WN male in NAD Heart: normal S1 and S2; no rub Lungs: clear anteriorly Abdomen: soft, nontender, nondistended, positive bowel sounds Extremities: no cyanosis or clubbing; trace edema Skin: no rash Objective Data Vital Signs Vital Signs: Vital Signs Temp Pulse Resp BP Pulse Ox O2 Del Method FiO2 10/08/24 12:00 100.1 F H 84 19 151/54 H 97 10/08/24 08:28 20 100 Room Air 21 10/08/24 04:45 99.5 F 80 20 154/60 H 100 10/08/24 00:00 98.0 F 70 20 147/60 H 100 10/07/24 20:00 Room Air 10/07/24 20:00 97.9 F 75 20 142/63 H 97 Intake/Output Intake/Output: Intake & Output 10/05/24 10/06/24 10/07/24 10/08/24 23:59 23:59 23:59 23:59 Intake Total 2620 2240 1080 1380 Output Total 935 2350 550 1630 Balance 1685 -110 530 -250 Meds/Results Medications: Active Medications Generic Name Dose Route Start Last Admin Trade Name Freq PRN Reason Stop Dose Admin Acetaminophen 650 mg 09/30/24 19:02 10/06/24 13:40 Acetaminophen 325 Mg Tablet PO 650 mg Q4H PRN Administration Mild Pain (1-3) or Fever Albuterol 2 puff 10/03/24 15:40 10/04/24 09:06 Albuterol Sulfate (*Sp) Aerosol 1 Puff INHALATION 2 puff Q6HRT PRN Administration Shortness Of Breath Or Wheezing Clopidogrel Bisulfate 75 mg 10/01/24 09:00 10/08/24 08:26 Clopidogrel Bisulfate 75 Mg Tablet PO 75 mg DAILY VU Administration Dextrose 12.5 gm 09/30/24 20:29 Dextrose 50% 25 Gm/50 Ml Syringe IV PUSH PRN PRN Hypoglycemia Protocol Docusate Sodium 100 mg 10/01/24 09:00 10/08/24 08:26 Docusate Sodium 100 Mg Capsule PO 100 mg DAILY VU Administration Ezetimibe 10 mg 10/01/24 09:00 10/08/24 08:27 Ezetimibe 10 Mg Tablet PO 10 mg DAILY VU Administration Famotidine 20 mg 09/30/24 21:00 10/08/24 08:26 Famotidine 20 Mg Tablet PO 20 mg Q12HR VU Administration Finasteride 5 mg 10/01/24 09:00 10/08/24 08:27 Finasteride 5 Mg Tablet PO 5 mg DAILY VU Administration Fluticasone Propionate 2 spray 09/30/24 20:28 10/08/24 08:25 Fluticasone Propionate 0.05% Na Spr 16 Gm Btl (*Bkc) NASAL 2 spray DAILY PRN Administration allergy symptoms Furosemide 40 mg 10/08/24 09:00 Furosemide 40 Mg Tablet BY MOUTH BID PRN Edema Glucagon 1 mg 09/30/24 20:29 Glucagon For Inj 1 Mg Vial IM PRN PRN Hypoglycemia Protocol Glucose 15 gm 09/30/24 20:29 Glucose Oral Gel 15 Gm Of Glucse In 37.5 Gm Tube PO PRN PRN Hypoglycemia Protocol Heparin Sodium (Porcine) 5,000 units 09/30/24 21:00 10/08/24 08:28 Heparin Sodium 5,000 Units/Ml Vial SUB-Q 5,000 units Q12HR VU Administration Dextrose 1,000 mls @ 100 mls/hr 09/30/24 20:29 Dextrose 5% 1,000 Ml IVPB PRN PRN Hypoglycemia Protocol Ampicillin Sodium 2 gm in 100 mls @ 200 mls/hr 10/07/24 10:00 10/08/24 17:17 Ampicillin 2 Gm/Ns 100 Ml IVPB 200 mls/hr Q8H VU Administration Ceftriaxone Sodium 2 gm in 100 mls @ 200 mls/hr 10/08/24 14:00 10/08/24 16:50 Rocephin 2 Gm/Ns 100 Ml IVPB Infused Q24H VU Infusion Insulin Aspart 1 - 3 units 09/30/24 21:00 10/08/24 00:36 Insulin Aspart (*Bkc) 100 Units/Ml SUB-Q Not Given HS [facility] Protocol Insulin Aspart 3 - 6 units 10/01/24 08:00 10/08/24 17:14 Insulin Aspart (*Bkc) 100 Units/Ml SUB-Q Not Given TIDWM [facility] Protocol Metronidazole 500 mg 10/08/24 14:00 10/08/24 16:21 Metronidazole 500 Mg Tablet PO 500 mg Q8HR VU Administration Morphine Sulfate 15 mg 09/30/24 20:28 10/08/24 08:27 Morphine Sulfate (*Crx) 15 Mg Tab Ir PO 15 mg Q8H PRN Administration pain 7-10 Morphine Sulfate 15 mg 10/07/24 09:53 10/08/24 01:53 Morphine Sulfate (*Crx) 15 Mg Tab Ir PO 15 mg Q4H PRN Administration Pain Rated 7-10 Ondansetron HCl 4 mg 09/30/24 19:02 10/02/24 18:18 Ondansetron Inj 4 Mg/2 Ml Vial IV PUSH 4 mg Q4H PRN Administration Nausea Pantoprazole Sodium 40 mg 10/07/24 09:00 10/08/24 08:27 Pantoprazole 40 Mg Tablet PO 40 mg QAM VU Administration Polyethylene Glycol 17 gm 10/01/24 21:11 10/07/24 09:06 Polyethylene Glycol 3350 17 Gm Powd.Pack PO 17 gm DAILY PRN Administration Constipation Sodium Chloride 500 mg 10/06/24 17:00 10/08/24 16:25 Sodium Chloride 500 Mg Tablet PO 500 mg BID VU Administration Verapamil HCl 120 mg 09/30/24 21:00 10/08/24 08:28 Verapamil Hcl 120 Mg Tablet Immed Release PO 120 mg Q12HR VU Administration Radiology Results: ITS Impressions Abdomen/Pelvis CT 09/30/24 19:00 IMPRESSION: Gallbladder hydrops without inflammatory change. Dilated common bile duct, measuring 14 mm. No obstructing stone or mass detected. Correlate with biliary labs. 3.4 cm fusiform infrarenal abdominal aortic aneurysm. Consider follow-up in 3 years. Upper Quadrant Ultrasound 10/01/24 08:43 IMPRESSION: 1. Cholelithiasis with a normal-appearing gallbladder but with mild intra and extrahepatic biliary ductal dilation which raises concern for a nonvisualized distal obstructing choledocholithiasis. Correlate with liver function tests and if clinically indicated could consider further evaluation with either MRCP or ERCP. Chest X-Ray 10/03/24 19:24 IMPRESSION: Cardiomegaly with cardiac decompensation and pulmonary edema. Pneumonitis is not excluded. Hepatobiliary Scan Nuclear Medicine 10/05/24 08:35 IMPRESSION: 1. No evident gallbladder activity consistent with acute cholecystitis. Cholecystostomy 10/05/24 16:57 IMPRESSION: 1. Successful ultrasound-guided cholecystostomy tube placement. 2. 35 mL bile was sent for aerobic, anaerobic, and fungal cultures. 3. The catheter will be managed by Dr. Brennan. Labs Labs: Laboratory Tests 10/08/24 04:55 10/08/24 04:55 Calcium 8.3 L Total Bilirubin 0.7 AST 26 ALT 20 Alkaline Phosphatase 88 Total Protein 5.5 L Albumin 2.6 L Microbiology 10/05/24 16:15 Bile Fungal Culture - Preliminary 10/05/24 16:15 Gallbladder Anaerobic Culture - Preliminary 10/05/24 16:15 Gallbladder Aerobic Culture - Preliminary Enterococcus faecalis
[2024-10-08 13:38] VITALS: BMI 35.2
[2024-10-08 14:00] VITALS: BP 151/54; PULSE 84; RESP 19; TEMP 37.8; O2SAT 97
[2024-10-08] MEDS: cefTRIAXone 2 GM/NS 100 ML 2 GM/100 ML BAG IVPB (16:21)
[2024-10-08 21:27] VITALS: BP 151/67; PULSE 89; RESP 14; O2SAT 97
[2024-10-09] MEDS: AMPICILLIN 2 GM/NS 100 ML 2 GM/100 ML BAG IVPB ×3 (02:14→17:26)
[2024-10-09 05:00] VITALS: BP 147/57; PULSE 69; RESP 12; TEMP 37; O2SAT 98
[2024-10-09 08:06] LABS: Hematocrit 28.7 % (42.0-52.0); Hemoglobin 9.2 g/dL (14.0-18.0); Mean Corpuscular HGB Conc 32.1 g/dl (32-36); Mean Corpuscular Hemoglobin 29.5 pg (26-34); Mean Corpuscular Volume 92.0 fl (80-100); Platelet Count Result 285 k/mm3 (150-375); Red Blood Count 3.12 M/mm3 (4.6-6.20); White Blood Count 12.2 K/mm3 (4.5-10.0)
[2024-10-09] MEDS: CLOPIDOGREL BISULFATE 75 MG TABLET PO (08:10)
[2024-10-09] MEDS: PANTOPRAZOLE 40 MG TABLET PO (08:11)
[2024-10-09] MEDS: FINASTERIDE 5 MG TABLET PO (08:11)
[2024-10-09] MEDS: FAMOTIDINE 20 MG TABLET PO ×2 (08:11→21:32)
[2024-10-09] MEDS: VERAPAMIL HCL 120 MG TABLET IMMED RELEASE PO ×2 (08:11→21:31)
[2024-10-09] MEDS: SODIUM CHLORIDE 500 MG TABLET PO ×2 (08:11→17:25)
[2024-10-09] MEDS: DOCUSATE SODIUM 100 MG CAPSULE PO (08:11)
[2024-10-09] MEDS: EZETIMIBE 10 MG TABLET PO (08:11)
[2024-10-09] MEDS: FUROSEMIDE 40 MG TABLET BY MOUTH (08:14)
[2024-10-09 08:25] LABS: Alanine Aminotransferase 20 U/L (6-50); Albumin Level 2.8 g/dL (3.5-5.1); Alkaline Phosphatase 99 U/L (38-126); Anion Gap 7 mmol/L (4-12); Aspartate Amino Transferase 34 U/L (17-59); Bilirubin,Total 0.7 mg/dL (0.2-1.3); Blood Urea Nitrogen 55 mg/dL (9-20); Calcium 8.4 mg/dL (8.4-10.2); Carbon Dioxide 23 mmol/L (22-30); Chloride 104 mmol/L (98-107); Estimated CRCL calculation 24 ml/min; Estimated Glomerular Filt Rate 26; Glucose 123 mg/dL (65-110); Potassium 4.0 mmol/L (3.4-5.0); Sodium 134 mmol/L (137-145); Total Protein 6.0 g/dL (6.3-8.2)
--- NOTE | 2024-10-09 12:07 | P.PNNP_ITS ---
Progress Note: A&P Assessment and Plan (1) Acute kidney injury: Code(s): N17.9 - Acute kidney failure, unspecified Status: Acute Assessment and Plan: * improvement noted (if not back to baseline) * as noted on admission * complicated by significant azotemia/elevated BUN * mild improvement in creatinine but BUN still elevated by repeat labs * agree with holding diuretics and trial of IVFs * follow respiratory status closely given hx of CHF * evaluation to date noted: * admission CT of A/P with no suspicious mass, obstructing stone, or hydronephrosis * prerenal urine electrolytes (by FeUrea) * urine eosinophils negative * mild proteinuria * normal/low CPK * UA without evidence of infection * suspect multifactorial etiology: * prerenal factors * overdiuresis * infection (bacteremia + cholecystitis) * other(?) * follow trend of repeat labs and UOP (2) Stage 4 chronic kidney disease: Code(s): N18.4 - Chronic kidney disease, stage 4 (severe) Status: Chronic Assessment and Plan: * slow and progressive decline noted * GFR ~ 22 to 23 in 2020/2021 * GFR ~ 20 to 21 in 2022/2023 * GFR ~ 18 by July 2024 labs * creatinine has been running anywhere from 2.4 - 3.2mg/dl in the last 6 months * creatinine on 09/27/24 (outpatient labs) = 3.93mg/dl (GFR 15) -- but this may have related to his acute medical issues currently * most likely due to diabetes and hypertension + chronic diuretic therapy (3) Azotemia: Code(s): R79.89 - Other specified abnormal findings of blood chemistry Status: Acute Assessment and Plan: * slow improvement noted * noted on admission * suspected related to diuretic therapy * however, underlying infection (see #4) likely a contributing factor as well... * no evidence of GI bleed * no other culprit medications * follow trend of BUN (4) Bacteremia: Code(s): R78.81 - Bacteremia Status: Acute Assessment and Plan: * blood culture results noted: * 10/04 blood cultures - Enterococcus faecalis * 10/05 blood cultures - Enterococcus faecalis * presumed source = gallbladder * gallbladder/bile culture - Enterococcus faecalis * on antibiotics * follow repeat blood cultures (5) Gallbladder hydrops: Code(s): K82.1 - Hydrops of gallbladder Status: Acute Assessment and Plan: * CT of A/P without overt acute cholecystitis * however, does have significant right upper quadrant pain on palpation with nausea and decreased oral intake * RUQ ultrasound results noted as well * LFTs normal * GI recommendations noted * Surgery following * s/p cholecystostomy tube placement (on 10/05) * will eventually need cholecystectomy * continue supportive therapy (6) Anemia: Code(s): D64.9 - Anemia, unspecified Status: Acute Assessment and Plan: * due to combo of LEROY, CKD, acute illness/infection and possibly previous IVFs * no need for SANKET at this time * follow trend of H/H (7) Hypertension: Code(s): I10 - Essential (primary) hypertension Status: Chronic Assessment and Plan: * reasonable control * follow trend of hemodynamics (8) Type 2 diabetes mellitus with hyperglycemia, without long-term current use of insulin: Code(s): E11.65 - Type 2 diabetes mellitus with hyperglycemia Status: Chronic Assessment and Plan: * follow accu-cheks * glycemic control per hospitalist Will continue to follow. L Subjective Date/time seen: 10/09/24 12:07 Interval history: Follow-up for acute kidney injury/acute renal failure on chronic kidney disease. Appears to be doing reasonably well at the time of my visit; no apparent distress voiced when seen; renal function/creatinine/BUN relatively stable at this time (restarted on oral lasix today); no other issues/events overnight or earlier this morning; remains on antibiotics and appears to be tolerating. Exam 2 Narrative: General: elderly but WD/WN male in NAD Heart: normal S1 and S2; no rub Lungs: clear anteriorly Abdomen: soft, nontender, nondistended, positive bowel sounds Extremities: no cyanosis or clubbing; trace edema Skin: no nodules Objective Data Vital Signs Vital Signs: Vital Signs Temp Pulse Resp BP Pulse Ox O2 Del Method 10/09/24 12:00 99 F 79 19 146/57 H 99 10/09/24 08:00 Room Air 10/09/24 05:00 98.6 F 69 12 147/57 H 98 10/08/24 21:27 89 14 151/67 H 97 10/08/24 20:00 Room Air Intake/Output Intake/Output: Intake & Output 10/06/24 10/07/24 10/08/24 10/09/24 23:59 23:59 23:59 23:59 Intake Total 2240 1080 1480 990 Output Total 2350 550 1630 680 Balance -110 530 -150 310 Meds/Results Medications: Active Medications Generic Name Dose Route Start Last Admin Trade Name Freq PRN Reason Stop Dose Admin Acetaminophen 650 mg 09/30/24 19:02 10/06/24 13:40 Acetaminophen 325 Mg Tablet PO 650 mg Q4H PRN Administration Mild Pain (1-3) or Fever Albuterol 2 puff 10/03/24 15:40 10/04/24 09:06 Albuterol Sulfate (*Sp) Aerosol 1 Puff INHALATION 2 puff Q6HRT PRN Administration Shortness Of Breath Or Wheezing Clopidogrel Bisulfate 75 mg 10/01/24 09:00 10/09/24 08:10 Clopidogrel Bisulfate 75 Mg Tablet PO 75 mg DAILY VU Administration Dextrose 12.5 gm 09/30/24 20:29 Dextrose 50% 25 Gm/50 Ml Syringe IV PUSH PRN PRN Hypoglycemia Protocol Docusate Sodium 100 mg 10/01/24 09:00 10/09/24 08:11 Docusate Sodium 100 Mg Capsule PO 100 mg DAILY VU Administration Ezetimibe 10 mg 10/01/24 09:00 10/09/24 08:11 Ezetimibe 10 Mg Tablet PO 10 mg DAILY VU Administration Famotidine 20 mg 09/30/24 21:00 10/09/24 08:11 Famotidine 20 Mg Tablet PO 20 mg Q12HR VU Administration Finasteride 5 mg 10/01/24 09:00 10/09/24 08:11 Finasteride 5 Mg Tablet PO 5 mg DAILY VU Administration Fluticasone Propionate 2 spray 09/30/24 20:28 10/08/24 08:25 Fluticasone Propionate 0.05% Na Spr 16 Gm Btl (*Bkc) NASAL 2 spray DAILY PRN Administration allergy symptoms Furosemide 40 mg 10/09/24 09:00 10/09/24 17:25 Furosemide 40 Mg Tablet PO 40 mg BID VU Administration Glucagon 1 mg 09/30/24 20:29 Glucagon For Inj 1 Mg Vial IM PRN PRN Hypoglycemia Protocol Glucose 15 gm 09/30/24 20:29 Glucose Oral Gel 15 Gm Of Glucse In 37.5 Gm Tube PO PRN PRN Hypoglycemia Protocol Heparin Sodium (Porcine) 5,000 units 09/30/24 21:00 10/09/24 08:14 Heparin Sodium 5,000 Units/Ml Vial SUB-Q 5,000 units Q12HR VU Administration Dextrose 1,000 mls @ 100 mls/hr 09/30/24 20:29 Dextrose 5% 1,000 Ml IVPB PRN PRN Hypoglycemia Protocol Ampicillin Sodium 2 gm in 100 mls @ 200 mls/hr 10/07/24 10:00 10/09/24 17:56 Ampicillin 2 Gm/Ns 100 Ml IVPB Infused Q8H VU Infusion Ceftriaxone Sodium 2 gm in 100 mls @ 200 mls/hr 10/08/24 14:00 10/09/24 14:09 Rocephin 2 Gm/Ns 100 Ml IVPB 200 mls/hr Q24H VU Administration Insulin Aspart 1 - 3 units 09/30/24 21:00 10/08/24 21:29 Insulin Aspart (*Bkc) 100 Units/Ml SUB-Q Not Given HS [facility] Protocol Insulin Aspart 3 - 6 units 10/01/24 08:00 10/09/24 17:19 Insulin Aspart (*Bkc) 100 Units/Ml SUB-Q Not Given TIDWM [facility] Protocol Metronidazole 500 mg 10/08/24 14:00 10/09/24 14:07 Metronidazole 500 Mg Tablet PO 500 mg Q8HR UV Administration Morphine Sulfate 15 mg 09/30/24 20:28 10/09/24 14:07 Morphine Sulfate (*Crx) 15 Mg Tab Ir PO 15 mg Q8H PRN Administration pain 7-10 Morphine Sulfate 15 mg 10/07/24 09:53 10/08/24 01:53 Morphine Sulfate (*Crx) 15 Mg Tab Ir PO 15 mg Q4H PRN Administration Pain Rated 7-10 Ondansetron HCl 4 mg 09/30/24 19:02 10/02/24 18:18 Ondansetron Inj 4 Mg/2 Ml Vial IV PUSH 4 mg Q4H PRN Administration Nausea Pantoprazole Sodium 40 mg 10/07/24 09:00 10/09/24 08:11 Pantoprazole 40 Mg Tablet PO 40 mg QAM VU Administration Polyethylene Glycol 17 gm 10/01/24 21:11 10/07/24 09:06 Polyethylene Glycol 3350 17 Gm Powd.Pack PO 17 gm DAILY PRN Administration Constipation Sodium Chloride 500 mg 10/06/24 17:00 10/09/24 17:25 Sodium Chloride 500 Mg Tablet PO 500 mg BID VU Administration Verapamil HCl 120 mg 09/30/24 21:00 10/09/24 08:11 Verapamil Hcl 120 Mg Tablet Immed Release PO 120 mg Q12HR VU Administration Radiology Results: ITS Impressions Abdomen/Pelvis CT 09/30/24 19:00 IMPRESSION: Gallbladder hydrops without inflammatory change. Dilated common bile duct, measuring 14 mm. No obstructing stone or mass detected. Correlate with biliary labs. 3.4 cm fusiform infrarenal abdominal aortic aneurysm. Consider follow-up in 3 years. Upper Quadrant Ultrasound 10/01/24 08:43 IMPRESSION: 1. Cholelithiasis with a normal-appearing gallbladder but with mild intra and extrahepatic biliary ductal dilation which raises concern for a nonvisualized distal obstructing choledocholithiasis. Correlate with liver function tests and if clinically indicated could consider further evaluation with either MRCP or ERCP. Chest X-Ray 10/03/24 19:24 IMPRESSION: Cardiomegaly with cardiac decompensation and pulmonary edema. Pneumonitis is not excluded. Hepatobiliary Scan Nuclear Medicine 10/05/24 08:35 IMPRESSION: 1. No evident gallbladder activity consistent with acute cholecystitis. Cholecystostomy 10/05/24 16:57 IMPRESSION: 1. Successful ultrasound-guided cholecystostomy tube placement. 2. 35 mL bile was sent for aerobic, anaerobic, and fungal cultures. 3. The catheter will be managed by Dr. Brennan. Labs Labs: Laboratory Tests 10/09/24 08:01 10/09/24 08:01 Calcium 8.4 Total Bilirubin 0.7 AST 34 ALT 20 Alkaline Phosphatase 99 Total Protein 6.0 L Albumin 2.8 L Microbiology 10/08/24 04:55 Blood Blood Culture - Preliminary 10/08/24 04:55 Blood Blood Culture - Preliminary 10/05/24 16:15 Bile Fungal Culture - Preliminary
[2024-10-09 14:00] VITALS: BP 146/57; PULSE 79; RESP 19; TEMP 37.2; O2SAT 99
[2024-10-09] MEDS: MORPHINE SULFATE (*CRX) 15 MG TAB IR PO ×2 (14:07→21:31)
[2024-10-09] MEDS: cefTRIAXone 2 GM/NS 100 ML 2 GM/100 ML BAG IVPB (14:09)
--- NOTE | 2024-10-09 15:56 | P.PNGS_ITS ---
Progress Note: A&P Assessment and Plan (1) Cholelithiasis with acute cholecystitis without biliary obstruction: Qualifiers: Cholelithiasis location: gallbladder Qualified Code(s): K80.00 - Calculus of gallbladder with acute cholecystitis without obstruction Code(s): K80.00 - Calculus of gallbladder with acute cholecystitis without obstruction Status: Acute Assessment and Plan: Relieved with placement cholecystostomy tube. Abdomen benign and no further abdominal pain. (2) Enterococcal bacteremia: Code(s): R78.81 - Bacteremia; B95.2 - Enterococcus as the cause of diseases classified elsewhere Status: Acute Assessment and Plan: Continue ampicillin and gentamicin based on susceptibilities of the Enterococcus. 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 Patient too ill with sepsis and bacteremia as well as acute on chronic renal failure. Plavix resumed. 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: Qualifiers: Diabetes mellitus senior living insulin use: without senior living use Diabetes mellitus complication detail: with chronic kidney disease Chronic kidney disease stage: unspecified stage Qualified Code(s): E11.22 - Type 2 diabetes mellitus with diabetic chronic kidney disease Code(s): E11.29 - Type 2 diabetes mellitus with other diabetic kidney complication Status: Chronic (6) Acute kidney injury superimposed on CKD: Code(s): N17.9 - Acute kidney failure, unspecified; N18.9 - Chronic kidney disease, unspecified Status: Acute Assessment and Plan: Improving slowly (7) 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 No acute abdominal pain. WBC 12.2, fairly unchanged from yesterday. Low grade fever overnight. Sunni tube draining properly with roughly 100 mL of bilious fluid upon exam. Nurse notes fluid to be more brown last night, but returned back to greenish color today. Exam GI: Inspection: distended, obesity, scar (Small vertical midline scar from hand port site), no visible herniation and other (Cholecystostomy tube draining bile appropriately) Auscultation: normal bowel sounds Rectal Exam: deferred Objective Data Vital Signs Vital Signs: Vital Signs - 24 hr 10/08/24 20:00 10/08/24 21:27 10/09/24 05:00 Temperature 98.6 F Pulse Rate 89 69 Respiratory Rate 14 12 Blood Pressure 151/67 H 147/57 H Pulse Oximetry 97 98 Oxygen Delivery Room Air 10/09/24 08:00 10/09/24 14:00 Temperature 99 F Pulse Rate 79 Respiratory Rate 19 Blood Pressure 146/57 H Pulse Oximetry 99 Oxygen Delivery Room Air Intake/Output Intake/Output: Intake & Output 10/06/24 10/07/24 10/08/24 10/09/24 23:59 23:59 23:59 23:59 Intake Total 2240 1080 1480 650 Output Total 2350 550 1630 530 Balance -110 530 -150 120 Meds/Results Medications: Active Medications Generic Name Dose Route Start Last Admin Trade Name Freq PRN Reason Stop Dose Admin Acetaminophen 650 mg 09/30/24 19:02 10/06/24 13:40 Acetaminophen 325 Mg Tablet PO 650 mg Q4H PRN Administration Mild Pain (1-3) or Fever Albuterol 2 puff 10/03/24 15:40 10/04/24 09:06 Albuterol Sulfate (*Sp) Aerosol 1 Puff INHALATION 2 puff Q6HRT PRN Administration Shortness Of Breath Or Wheezing Clopidogrel Bisulfate 75 mg 10/01/24 09:00 10/09/24 08:10 Clopidogrel Bisulfate 75 Mg Tablet PO 75 mg DAILY VU Administration Dextrose 12.5 gm 09/30/24 20:29 Dextrose 50% 25 Gm/50 Ml Syringe IV PUSH PRN PRN Hypoglycemia Protocol Docusate Sodium 100 mg 10/01/24 09:00 10/09/24 08:11 Docusate Sodium 100 Mg Capsule PO 100 mg DAILY VU Administration Ezetimibe 10 mg 10/01/24 09:00 10/09/24 08:11 Ezetimibe 10 Mg Tablet PO 10 mg DAILY VU Administration Famotidine 20 mg 09/30/24 21:00 10/09/24 08:11 Famotidine 20 Mg Tablet PO 20 mg Q12HR VU Administration Finasteride 5 mg 10/01/24 09:00 10/09/24 08:11 Finasteride 5 Mg Tablet PO 5 mg DAILY VU Administration Fluticasone Propionate 2 spray 09/30/24 20:28 10/08/24 08:25 Fluticasone Propionate 0.05% Na Spr 16 Gm Btl (*Bkc) NASAL 2 spray DAILY PRN Administration allergy symptoms Furosemide 40 mg 10/09/24 09:00 10/09/24 09:08 Furosemide 40 Mg Tablet PO Not Given BID VU Glucagon 1 mg 09/30/24 20:29 Glucagon For Inj 1 Mg Vial IM PRN PRN Hypoglycemia Protocol Glucose 15 gm 09/30/24 20:29 Glucose Oral Gel 15 Gm Of Glucse In 37.5 Gm Tube PO PRN PRN Hypoglycemia Protocol Heparin Sodium (Porcine) 5,000 units 09/30/24 21:00 10/09/24 08:14 Heparin Sodium 5,000 Units/Ml Vial SUB-Q 5,000 units Q12HR VU Administration Dextrose 1,000 mls @ 100 mls/hr 09/30/24 20:29 Dextrose 5% 1,000 Ml IVPB PRN PRN Hypoglycemia Protocol Ampicillin Sodium 2 gm in 100 mls @ 200 mls/hr 10/07/24 10:00 10/09/24 11:29 Ampicillin 2 Gm/Ns 100 Ml IVPB Infused Q8H VU Infusion Ceftriaxone Sodium 2 gm in 100 mls @ 200 mls/hr 10/08/24 14:00 10/09/24 14:09 Rocephin 2 Gm/Ns 100 Ml IVPB 200 mls/hr Q24H VU Administration Insulin Aspart 1 - 3 units 09/30/24 21:00 10/08/24 21:29 Insulin Aspart (*Bkc) 100 Units/Ml SUB-Q Not Given HS [facility]U Protocol Insulin Aspart 3 - 6 units 10/01/24 08:00 10/09/24 12:01 Insulin Aspart (*Bkc) 100 Units/Ml SUB-Q Not Given TIDWM [facility]U Protocol Metronidazole 500 mg 10/08/24 14:00 10/09/24 14:07 Metronidazole 500 Mg Tablet PO 500 mg Q8HR VU Administration Morphine Sulfate 15 mg 09/30/24 20:28 10/09/24 14:07 Morphine Sulfate (*Crx) 15 Mg Tab Ir PO 15 mg Q8H PRN Administration pain 7-10 Morphine Sulfate 15 mg 10/07/24 09:53 10/08/24 01:53 Morphine Sulfate (*Crx) 15 Mg Tab Ir PO 15 mg Q4H PRN Administration Pain Rated 7-10 Ondansetron HCl 4 mg 09/30/24 19:02 10/02/24 18:18 Ondansetron Inj 4 Mg/2 Ml Vial IV PUSH 4 mg Q4H PRN Administration Nausea Pantoprazole Sodium 40 mg 10/07/24 09:00 10/09/24 08:11 Pantoprazole 40 Mg Tablet PO 40 mg QAM VU Administration Polyethylene Glycol 17 gm 10/01/24 21:11 10/07/24 09:06 Polyethylene Glycol 3350 17 Gm Powd.Pack PO 17 gm DAILY PRN Administration Constipation Sodium Chloride 500 mg 10/06/24 17:00 10/09/24 08:11 Sodium Chloride 500 Mg Tablet PO 500 mg BID VU Administration Verapamil HCl 120 mg 09/30/24 21:00 10/09/24 08:11 Verapamil Hcl 120 Mg Tablet Immed Release PO 120 mg Q12HR VU Administration Radiology Results: ITS Impressions Abdomen/Pelvis CT 09/30/24 19:00 IMPRESSION: Gallbladder hydrops without inflammatory change. Dilated common bile duct, measuring 14 mm. No obstructing stone or mass detected. Correlate with biliary labs. 3.4 cm fusiform infrarenal abdominal aortic aneurysm. Consider follow-up in 3 years. Upper Quadrant Ultrasound 10/01/24 08:43 IMPRESSION: 1. Cholelithiasis with a normal-appearing gallbladder but with mild intra and extrahepatic biliary ductal dilation which raises concern for a nonvisualized distal obstructing choledocholithiasis. Correlate with liver function tests and if clinically indicated could consider further evaluation with either MRCP or ERCP. Chest X-Ray 10/03/24 19:24 IMPRESSION: Cardiomegaly with cardiac decompensation and pulmonary edema. Pneumonitis is not excluded. Hepatobiliary Scan Nuclear Medicine 10/05/24 08:35 IMPRESSION: 1. No evident gallbladder activity consistent with acute cholecystitis. Cholecystostomy 10/05/24 16:57 IMPRESSION: 1. Successful ultrasound-guided cholecystostomy tube placement. 2. 35 mL bile was sent for aerobic, anaerobic, and fungal cultures. 3. The catheter will be managed by Dr. Brennan. Labs Labs: Laboratory Results - last 24 hr 10/08/24 10/08/24 10/09/24 17:02 21:27 07:36 WBC RBC Hgb Hct MCV MCH MCHC RDW Plt Count MPV Sodium Potassium Chloride Carbon Dioxide Anion Gap BUN Creatinine Estim Creat Clear Calc Estimated GFR Glucose POC Capillary Glucose 112 H 133 H 124 H Calcium Total Bilirubin AST ALT Alkaline Phosphatase Total Protein Albumin 10/09/24 10/09/24 08:01 11:38 WBC 12.2 H RBC 3.12 L Hgb 9.2 L Hct 28.7 L MCV 92.0 MCH 29.5 MCHC 32.1 RDW 15.2 H Plt Count 285 MPV 9.1 Sodium 134 L Potassium 4.0 Chloride 104 Carbon Dioxide 23 Anion Gap 7 BUN 55 H Creatinine 2.41 H Estim Creat Clear Calc 24 Estimated GFR 26 L Glucose 123 H POC Capillary Glucose 177 H Calcium 8.4 Total Bilirubin 0.7 AST 34 ALT 20 Alkaline Phosphatase 99 Total Protein 6.0 L Albumin 2.8 L
--- NOTE | 2024-10-09 16:09 | P.PNIM_ITS ---
Progress Note: A&P Assessment and Plan (1) Chest pain: Qualifiers: Chest pain type: unspecified Qualified Code(s): R07.9 - Chest pain, unspecified Code(s): R07.9 - Chest pain, unspecified Status: Acute Assessment and Plan: -Chest pain seems atypical in nature, pt continue to deny CP. -Troponin are elevated but flat. Will complete troponin series. -Pain seems more consistent with GI cause with reported indigestion and significant right upper quadrant pain. -Will continue Antihypertensives and Plavix. -->HOLD Plavix starting 10/05 for eventual lap torrie per surg 10/07: Per surg: No longer plan to proceed with cholecystectomy this week. Patient to ill with sepsis and bacteremia as well as acute on chronic renal failure. Will resume Plavix today. Pt continues to deny CP/SOB or any other worrisome sx. (2) Acute kidney injury superimposed on CKD: Code(s): N17.9 - Acute kidney failure, unspecified; N18.9 - Chronic kidney disease, unspecified Status: Acute Assessment and Plan: Patient has chronic kidney disease stage 4 with acute kidney injury. Most likely prerenal due to intervascular volume depletion. - Hold Lasix and continue IV fluid hydration at 75ml/hr. - Nephrology was consulted from the ER. - Continue flomax 10/02- cr/bun 2.96/100 10/03: Cr/BUN: 3.26/91, pending neph rounds due to worsening Cr 10/04: Cr/BUN: 3.43/90, Started IVF again today, continue to hold lasix 10/05: Cr/BUN: 3.54/[address] Lopez today, he believes that once the torrie tube is placed and with IV abx on board, kidney labs should begin to normalize back to pt baseline which is CKD4. Will continue to monitor levels. Dr. Lopez on for the weekend. 10/06: Cr/BUN: 2.84/84, starting to trend down, will continue to monitor daily IVF D/C due to better trending kidneys, lasix still on hold (no pulm congestion), and adequate intake. 10/07: Kidney levels continuing to improve Cr/BUN: 2.33/27 -If continues to improve, will start Lasix back up tomorrow. at the bedside today concerned for his BLE edema, which has not worsened per my exam. Pt also denies CP/SOB. 10/08: Kidney levels continuing to improve Cr/BUN: 2.15/59 -Lasix restarted today 10/09 daily: Cr/BUN: 2.41/55 Per neph 10/08: * slow and progressive decline noted * GFR ~ 22 to 23 in * GFR ~ 20 to 21 in * GFR ~ 18 by July 2024 labs * creatinine has been running anywhere from 2.4 - 3.2mg/dl in the last 6 months * creatinine on 09/27/24 (outpatient labs) = 3.93mg/dl (GFR 15) -- but this may have related to his acute medical issues currently * most likely due to diabetes and hypertension + chronic diuretic therapy go to the (3) Acute uremia: Code(s): N19 - Unspecified kidney failure Status: Acute Assessment and Plan: Possibly due to hypovolemia. GI bleed is less likely given patient's hemoglobin is stable at 12 in ED and patient denies symptoms of hematemesis hematochezia or melena. Pt continues to deny any blood loss. -Will hold Lasix and continue IV fluid hydration and repeat CBC and electrolyte panel in a.m. -Decrease IV fluids to 50 ml and monitor I/O closely 10/03: -H/H as of 10/03: 9.6/30.5 -Pt appetite still decreased, continue IVF 50/hr 10/04: -H/H 9.8/30.5 -Started again on IVF to try to normalize creat, pt will be NPO at [facility] anyway for procedure tomorrow. 10/05: -H/H 9.9/31.3 -IVF down to 75 ml/hr for NPO status and to avoid pulm edema Spoke to Dr. Lopez today, he believes that once the torrie tube is placed and with IV abx on board, kidney labs should begin to normalize back to pt baseline which is CKD4. Will continue to monitor levels. Dr. Lopez on for the weekend. 10/06: -H/H 10.8/35.4 -IVF stopped today, appetite better 10/07: -H/H: 9.7/29.8 10/08: -H/H: 10.3/31.7 (4) Gallbladder hydrops: Code(s): K82.1 - Hydrops of gallbladder Status: Acute Assessment and Plan: CT does not suggest overt acute cholecystitis but patient does have significant kit right upper quadrant pain on palpation and worsening of his nausea with palpation of right upper quadrant. -RUQ US for better visualization of the gallbladder: 1. Cholelithiasis with a normal-appearing gallbladder but with mild intra and extrahepatic biliary ductal dilation which raises concern for a nonvisualized distal obstructing choledocholithiasis. Correlate with liver function tests and if clinically indicated could consider further evaluation with either MRCP or ERCP. -->Consulted GI 10/03, pending recs/rounding -Bilirubin and transaminases are normal. -Patient does have some leukocytosis but no fever. -Will hold off on adding antibiotic coverage at this time and will repeat CBC in a.m. 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 His symptoms are likely related to his gallbadder and there is concern for choledocholithiasis given his common bile duct dilatation on imaging. Since his Plavix has been continued, he would not be a candidate for a laparoscopic cholecystectomy at this time. He received his last dose of Plavix this morning, which I have put on hold. Since he continues to have symptoms, we would recommend proceeding with percutaneous cholecystostomy tube placement to treat his cholecystitis. We will eventually consider proceeding with a laparoscopic cholecystectomy with intraoperative cholangiogram to evaluate for choledocholithiasis, but this will be at a later date, possibly as an outpatient depending on how he is progressing medically, when his Plavix can be held for an adequate amount of time. This would also allow time for improved medical optimization in regards to his renal failure and pulmonary edema. Will repeat labs tomorrow and include a CMP to re-evaluate his liver enzymes. Although his WBC count has been trending down, I will also start him on broad-spectrum IV antibiotics to cover for cholecystitis/cholangitis given his persistent pain/fever/leukocytosis. Plavix has been continued since his admission. He received a dose this morning. Will hold his Plavix now, which ideally is held for 5 days prior to a cholecystectomy. -->Plan for torrie tube placement tomorrow, surg started ceftriaxone and flagyl today 10/05: HIDA scan and cholecystectomy tube placement today. Low fat diet started after procedure. Will continue to monitor tube and daily AM labs. 10/06: Pt looking a lot better since tube placement yesterday. Pt reporting some pain in his RLQ and tube insertion site but per pt his morphine home dose has been taking care of the pain. -Per surg note today: Cholecystostomy tube placed yesterday. Having pain at drain site. Cholecystostomy tube will alleviate acute cholecystitis. Will not help if patient has cholangitis. Although the bile ducts are dilated, liver function tests are normal. Cholangitis seems unlikely. Bacteremia: Receiving appropriate antibiotics with vancomycin and cefepime. Pending susceptibility testing on the Enterococcus 10/07: Per surg: Relieved with placement cholecystostomy tube. Abdomen benign and no further abdominal pain. No longer plan to proceed with cholecystectomy this week. Patient to ill with sepsis and bacteremia as well as acute on chronic renal failure. Will resume Plavix today. -Pt denies pain to his abd or torrie tube site. 10/08: -Slight WBC increase overnight, 10.4-->12.1 -Per surg rounds: Relieved with placement cholecystostomy tube. Abdomen benign and no further abdominal pain. No longer plan to proceed with cholecystectomy this week. Patient too ill with sepsis and bacteremia as well as acute on chronic renal failure. Plavix resumed. -Switched abx yesterday from vanc ampicillin and gentamicin based on susceptibilities of the Enterococcus per pharm 10/09: -Slight WBC increase overnight again, surg aware. Continue IV abx. Continue to monitor torrie tube, labs, VS. (5) Type 2 diabetes mellitus with hyperglycemia, without long-term current use of insulin: Code(s): E11.65 - Type 2 diabetes mellitus with hyperglycemia Status: Chronic Assessment and Plan: Hold Actos -Moderate dose sliding scale insulin with Accu-Cheks a.c. HS and hypoglycemia protocol. -Glucose has been stable during stay (6) Chronic pain: Qualifiers: Chronic pain type: chronic pain syndrome Qualified Code(s): G89.4 - Chronic pain syndrome Code(s): G89.29 - Other chronic pain Status: Acute Assessment and Plan: Will resume patient's home morphine 15 mg Q 8 hours p.r.n. pain 7-10. (7) Abdominal aortic aneurysm (AAA) 3.0 cm to 5.5 cm in diameter in male: Code(s): I71.40 - Abdominal aortic aneurysm, without rupture, unspecified Status: Acute Assessment and Plan: Likely chronic will defer follow-up to patient's primary care provider for serial imaging (8) Antiplatelet or antithrombotic long-term use: Code(s): Z79.02 - MCFP (current) use of antithrombotics/antiplatelets Status: Acute Assessment and Plan: Pt with hx of pacemaker and plavix long-term use. Per surg: Plavix has been continued since his admission. He received a dose this morning. Will hold his Plavix now, which ideally is held for 5 days prior to a cholecystectomy. 10/07: Per surg: No longer plan to proceed with cholecystectomy this week. Patient to ill with sepsis and bacteremia as well as acute on chronic renal failure. Will resume Plavix today. -Plan for outpatient lap torrie potentially, surg to continue to follow. (9) Bacteremia: Code(s): R78.81 - Bacteremia Status: Acute Assessment and Plan: 10/05: Both blood cultures resulted today with Gram + cocci in chains -->Spoke with ID pharm, reports could be either strep strain (covered by Ceftriaxone) or Entero strain (covered by Vanc) --->Will start vanc today to treat if ends up being entero strain to get ahead of the infection, will f/u tomorrow for final reads -Pt on Ceftriaxone 2g already via surg for low grade fevers and leukocytosis, will continue. -Ordered echo 10/05 to r/o endocarditis -Also repeat order for BC placed today 10/06: X1 BC final result yielding enterococcus faecalis, will continue with vanc, pending second final BC result -Will continue to trend BCs 10/07: After a slight bump, WBC continues to downtrend slightly, will continue to monitor. Per surg today: Spoke with pharmacist. Will change to ampicillin and gentamicin based on susceptibilities of the Enterococcus -->Gallbladder wound culture prelim resulted today for Enterococcus, continue ampicillin and gentamicin -Will continue to trend BCs, new draw tomorrow AM scheduled 10/08: -Slight WBC increase overnight, 10.4-->12.1 -Per surg: Continue ampicillin and gentamicin based on susceptibilities of the Enterococcus. -Switched abx yesterday from vanc ampicillin and gentamicin based on susceptibilities of the Enterococcus per pharm -Will continue to monitor daily labs 10/09: -Very slight, surg aware. Continue IV abx. Continue to monitor torrie tube, labs, VS. (10) Hyponatremia: Code(s): E87.1 - Hypo-osmolality and hyponatremia Status: Acute Assessment and Plan: Levels have been low since admission despite IVF NS. -Sodium chl tablets started 10/06 to normalize -Will continue to trend pt status and daily labs 10/07: Na 134 10/08: Na 135 10/09: Na 134 Plan Torrie tube placement 10/05, continue to monitor pt with labs, VS, and pain control. Surg started IV abx 10/04. Surg restarted Plavix 10/07 due to pt being too sick for lap torrie during this admission. Per surg, per pharm, abx changed for wound culture +enterococcus coverage. Obtained new BC 10/08, pending clear BC. Subjective Date/time seen: 10/09/24 1006 Interval history: 88-year-old male with a past medical history of heart valve replacement, CHF, chronic kidney disease, BPH, type 2 diabetes mellitus and chronic pain who presented to the ER via EMS from home due to nausea, abdominal pain and chest pain for 3 days. The patient reports that he has been having initial symptoms of abdominal pain of his generalized for the last 3 days. In ED- BUN of 120 creatinine 3.86. He was hyperglycemic in the ER. Pt is seen and examined.He denies any chest pain, feels overall tired and somewhat nauseated. 10/02 - pt is seen and examined. He is very weak, unable to do much on his own. No abd pain, no nausea today. Cr elevated overnight- nephrology following. 10/03: Pt continues to report RUQ abd pain, nausea, and decreased appetite. pt denies CP. Pt is confused why he is still having pain, I updated him that his abd US showed that he may have a gallstone that may be trapped in his bile duct today and that may be why he is still in pain. Updated him on the plan for GI to come see him to discuss further steps, pt agreeable with the plan. Pt encouraged to keep trying to eat and drink fluids, continue IVF as of now. 10/04: Pt reports that his RUQ pain today is mildly worse, but denies any nausea and he states I have not had any of that for some time now. Updated him on the plan from GI for surgery to consult due to the need of a lap torrie to visualize the probable stone due to not being able to obtain an MRCP because he has a pacemaker. Upon exam today, pt drowsy, but awakens to verbal stimuli. I spoke to on the phone and she states that his drowsiness state is baseline. 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 Reiterated plan for surgery to consult on pl an which they recommended proceeding with percutaneous cholecystostomy tube placement to treat his cholecystitis due to being on his Plavix. 10/05: Pt sleeping when entered room, awakens to verbal stimuli. Pt continues to report mild RUQ pain and deny nausea. Updated him on the plan for additional imaging today as well as a torrie tube placement, pt agreeable with the plan. Transport here to get pt now. 10/06: Pt more alert today, , Nallely, at the bedside. Pt sitting up in chair. Reporting pain to insertion site of Torrie tube, but reports that his morphine he gets at baseline has been helping with that pain. Pt denies SOB/CP, increased BLE edema, or any other sx. 10/07: Pt up and sitting in the chair. Pt reporting his chronic pain in bilateral hips and back today but states that it is controlled by his home pain medication. Pt reports BM x2 days ago. Continues to deny CP, SOB, or increased BLE edema. Since kidneys are looking better daily, likely to restart his Lasix tomorrow. 10/08: Pt working with PT upon my arrival to his room. Pt with no new abd pain or other sx. I updated his on the phone that we were able to restart his lasix today due to his kidneys being back at baseline. Will continue to monitor. 10/09: Pt reports today that he is feeling better? Hard to tell with affect. More alert for me once I entered. VSS. Continue with abx for bacteremia. Review of Systems Review of Systems: 12 systems were reviewed with pertinent positives and negatives per HPI. Except as documented in the HPI, all other systems were reviewed and are negative. Exam Const: General: comfortable Other: No acute distress, well-developed, obese, appears stated age HENMT: Face/Nose/Sinus: Normal nares present Mouth: Yes moist mucous membranes Other: Upper and lower dentures in place Eyes: General: appearance normal, both eyes and all related structures Sclera: sclerae normal Other: Bilateral lens replacements noted - R 4mm, L 3mm pupils, no conjunctival pallor, no scleral icterus Neck: Other: Large neck circumference, no JVD, loss of cervical lordosis Resp: Effort & Inspection: normal respiratory effort Auscultation: clear to auscultation bilaterally Other: Clear to auscultation bilaterally, no increased work of breathing Cardio: Rate: regular rate Rhythm: regular rhythm Other: Regular rate, regular rhythm, no murmur, 2+ bilateral radial and pedal pulses GI: Inspection: non-distended Auscultation: normal bowel sounds Other: No pain in abd to palpitation Torrie tube with bile colored drainage, minimal Skin: General skin exam: normal color and No rashes Rashes: no rashes noted Other: N Neuro: Speech: normal speech Motor exam (neuro): Normal motor muscle tone present throughout Sensory Exam: normal sensation Other: A&O x4, speech is clear, mild hearing loss, no localizing neurologic deficit noted during the course of conversation. Pt at his baseline grogginess, attributing to home pain regimen Extrem: General: normal to inspection Other: BLE: 1+ pitting edema Psych: Affect: normal affect Other: Flat affect, cooperative, appropriate insight and judgment Objective Data Vital Signs Vital Signs: Vital Signs - 24 hr 10/08/24 20:00 10/08/24 21:27 10/09/24 05:00 Temperature 98.6 F Pulse Rate 89 69 Respiratory Rate 14 12 Blood Pressure 151/67 H 147/57 H Pulse Oximetry 97 98 Oxygen Delivery Room Air 10/09/24 08:00 10/09/24 14:00 Temperature 99 F Pulse Rate 79 Respiratory Rate 19 Blood Pressure 146/57 H Pulse Oximetry 99 Oxygen Delivery Room Air Intake/Output Intake/Output: Intake & Output 10/06/24 10/07/24 10/08/24 10/09/24 23:59 23:59 23:59 23:59 Intake Total 2240 1080 1480 650 Output Total 2350 550 1630 530 Balance -110 530 -150 120 Meds/Results Medications: Active Medications Generic Name Dose Route Start Last Admin Trade Name Freq PRN Reason Stop Dose Admin Acetaminophen 650 mg 09/30/24 19:02 10/06/24 13:40 Acetaminophen 325 Mg Tablet PO 650 mg Q4H PRN Administration Mild Pain (1-3) or Fever Albuterol 2 puff 10/03/24 15:40 10/04/24 09:06 Albuterol Sulfate (*Sp) Aerosol 1 Puff INHALATION 2 puff Q6HRT PRN Administration Shortness Of Breath Or Wheezing Clopidogrel Bisulfate 75 mg 10/01/24 09:00 10/09/24 08:10 Clopidogrel Bisulfate 75 Mg Tablet PO 75 mg DAILY VU Administration Dextrose 12.5 gm 09/30/24 20:29 Dextrose 50% 25 Gm/50 Ml Syringe IV PUSH PRN PRN Hypoglycemia Protocol Docusate Sodium 100 mg 10/01/24 09:00 10/09/24 08:11 Docusate Sodium 100 Mg Capsule PO 100 mg DAILY VU Administration Ezetimibe 10 mg 10/01/24 09:00 10/09/24 08:11 Ezetimibe 10 Mg Tablet PO 10 mg DAILY VU Administration Famotidine 20 mg 09/30/24 21:00 10/09/24 08:11 Famotidine 20 Mg Tablet PO 20 mg Q12HR VU Administration Finasteride 5 mg 10/01/24 09:00 10/09/24 08:11 Finasteride 5 Mg Tablet PO 5 mg DAILY VU Administration Fluticasone Propionate 2 spray 09/30/24 20:28 10/08/24 08:25 Fluticasone Propionate 0.05% Na Spr 16 Gm Btl (*Bkc) NASAL 2 spray DAILY PRN Administration allergy symptoms Furosemide 40 mg 10/09/24 09:00 10/09/24 09:08 Furosemide 40 Mg Tablet PO Not Given BID VU Glucagon 1 mg 09/30/24 20:29 Glucagon For Inj 1 Mg Vial IM PRN PRN Hypoglycemia Protocol Glucose 15 gm 09/30/24 20:29 Glucose Oral Gel 15 Gm Of Glucse In 37.5 Gm Tube PO PRN PRN Hypoglycemia Protocol Heparin Sodium (Porcine) 5,000 units 09/30/24 21:00 10/09/24 08:14 Heparin Sodium 5,000 Units/Ml Vial SUB-Q 5,000 units Q12HR VU Administration Dextrose 1,000 mls @ 100 mls/hr 09/30/24 20:29 Dextrose 5% 1,000 Ml IVPB PRN PRN Hypoglycemia Protocol Ampicillin Sodium 2 gm in 100 mls @ 200 mls/hr 10/07/24 10:00 10/09/24 11:29 Ampicillin 2 Gm/Ns 100 Ml IVPB Infused Q8H VU Infusion Ceftriaxone Sodium 2 gm in 100 mls @ 200 mls/hr 10/08/24 14:00 10/09/24 14:09 Rocephin 2 Gm/Ns 100 Ml IVPB 200 mls/hr Q24H VU Administration Insulin Aspart 1 - 3 units 09/30/24 21:00 10/08/24 21:29 Insulin Aspart (*Bkc) 100 Units/Ml SUB-Q Not Given HS VU Protocol Insulin Aspart 3 - 6 units 10/01/24 08:00 10/09/24 12:01 Insulin Aspart (*Bkc) 100 Units/Ml SUB-Q Not Given T[facility] Protocol Metronidazole 500 mg 10/08/24 14:00 10/09/24 14:07 Metronidazole 500 Mg Tablet PO 500 mg Q8HR VU Administration Morphine Sulfate 15 mg 09/30/24 20:28 10/09/24 14:07 Morphine Sulfate (*Crx) 15 Mg Tab Ir PO 15 mg Q8H PRN Administration pain 7-10 Morphine Sulfate 15 mg 10/07/24 09:53 10/08/24 01:53 Morphine Sulfate (*Crx) 15 Mg Tab Ir PO 15 mg Q4H PRN Administration Pain Rated 7-10 Ondansetron HCl 4 mg 09/30/24 19:02 10/02/24 18:18 Ondansetron Inj 4 Mg/2 Ml Vial IV PUSH 4 mg Q4H PRN Administration Nausea Pantoprazole Sodium 40 mg 10/07/24 09:00 10/09/24 08:11 Pantoprazole 40 Mg Tablet PO 40 mg QAM VU Administration Polyethylene Glycol 17 gm 10/01/24 21:11 10/07/24 09:06 Polyethylene Glycol 3350 17 Gm Powd.Pack PO 17 gm DAILY PRN Administration Constipation Sodium Chloride 500 mg 10/06/24 17:00 10/09/24 08:11 Sodium Chloride 500 Mg Tablet PO 500 mg BID VU Administration Verapamil HCl 120 mg 09/30/24 21:00 10/09/24 08:11 Verapamil Hcl 120 Mg Tablet Immed Release PO 120 mg Q12HR VU Administration Radiology Results: ITS Impressions Abdomen/Pelvis CT 09/30/24 19:00 IMPRESSION: Gallbladder hydrops without inflammatory change. Dilated common bile duct, measuring 14 mm. No obstructing stone or mass detected. Correlate with biliary labs. 3.4 cm fusiform infrarenal abdominal aortic aneurysm. Consider follow-up in 3 years. Upper Quadrant Ultrasound 10/01/24 08:43 IMPRESSION: 1. Cholelithiasis with a normal-appearing gallbladder but with mild intra and extrahepatic biliary ductal dilation which raises concern for a nonvisualized distal obstructing choledocholithiasis. Correlate with liver function tests and if clinically indicated could consider further evaluation with either MRCP or ERCP. Chest X-Ray 10/03/24 19:24 IMPRESSION: Cardiomegaly with cardiac decompensation and pulmonary edema. Pneumonitis is not excluded. Hepatobiliary Scan Nuclear Medicine 10/05/24 08:35 IMPRESSION: 1. No evident gallbladder activity consistent with acute cholecystitis. Cholecystostomy 10/05/24 16:57 IMPRESSION: 1. Successful ultrasound-guided cholecystostomy tube placement. 2. 35 mL bile was sent for aerobic, anaerobic, and fungal cultures. 3. The catheter will be managed by Dr. Brennan. Labs Labs: Laboratory Results - last 24 hr 10/08/24 10/08/24 10/09/24 17:02 21:27 07:36 WBC RBC Hgb Hct MCV MCH MCHC RDW Plt Count MPV Sodium Potassium Chloride Carbon Dioxide Anion Gap BUN Creatinine Estim Creat Clear Calc Estimated GFR Glucose POC Capillary Glucose 112 H 133 H 124 H Calcium Total Bilirubin AST ALT Alkaline Phosphatase Total Protein Albumin 10/09/24 10/09/24 08:01 11:38 WBC 12.2 H RBC 3.12 L Hgb 9.2 L Hct 28.7 L MCV 92.0 MCH 29.5 MCHC 32.1 RDW 15.2 H Plt Count 285 MPV 9.1 Sodium 134 L Potassium 4.0 Chloride 104 Carbon Dioxide 23 Anion Gap 7 BUN 55 H Creatinine 2.41 H Estim Creat Clear Calc 24 Estimated GFR 26 L Glucose 123 H POC Capillary Glucose 177 H Calcium 8.4 Total Bilirubin 0.7 AST 34 ALT 20 Alkaline Phosphatase 99 Total Protein 6.0 L Albumin 2.8 L Quality VTE Prophylaxis VTE prophylaxis: pharmacologic ordered (Heparin 5000 units subQ q.12 hours.)
[2024-10-09] MEDS: FUROSEMIDE 40 MG TABLET PO (17:25)
[2024-10-09 21:14] VITALS: BP 159/69; PULSE 86; RESP 20; TEMP 37.2; O2SAT 98
[2024-10-09 21:35] VITALS: O2SAT 98
[2024-10-10] MEDS: AMPICILLIN 2 GM/NS 100 ML 2 GM/100 ML BAG IVPB ×3 (01:50→17:07)
[2024-10-10 04:58] VITALS: BP 168/59; PULSE 83; RESP 20; TEMP 37.3; O2SAT 100
[2024-10-10 05:09] LABS: Hematocrit 28.4 % (42.0-52.0); Hemoglobin 9.1 g/dL (14.0-18.0); Mean Corpuscular HGB Conc 32.0 g/dl (32-36); Mean Corpuscular Hemoglobin 29.4 pg (26-34); Mean Corpuscular Volume 91.9 fl (80-100); Platelet Count Result 330 k/mm3 (150-375); Red Blood Count 3.09 M/mm3 (4.6-6.20); White Blood Count 12.6 K/mm3 (4.5-10.0)
[2024-10-10 05:49] LABS: Alanine Aminotransferase 21 U/L (6-50); Albumin Level 2.9 g/dL (3.5-5.1); Alkaline Phosphatase 100 U/L (38-126); Anion Gap 9 mmol/L (4-12); Aspartate Amino Transferase 30 U/L (17-59); Bilirubin,Total 0.7 mg/dL (0.2-1.3); Blood Urea Nitrogen 57 mg/dL (9-20); Calcium 8.5 mg/dL (8.4-10.2); Carbon Dioxide 24 mmol/L (22-30); Chloride 101 mmol/L (98-107); Estimated CRCL calculation 20 ml/min; Estimated Glomerular Filt Rate 21; Glucose 156 mg/dL (65-110); Potassium 4.0 mmol/L (3.4-5.0); Sodium 134 mmol/L (137-145); Total Protein 6.3 g/dL (6.3-8.2)
[2024-10-10 09:14] LABS: Magnesium 2.1 mg/dL (1.6-2.3)
[2024-10-10] MEDS: CLOPIDOGREL BISULFATE 75 MG TABLET PO (09:17)
[2024-10-10] MEDS: EZETIMIBE 10 MG TABLET PO (09:17)
[2024-10-10] MEDS: SODIUM CHLORIDE 500 MG TABLET PO ×2 (09:17→17:07)
[2024-10-10] MEDS: MORPHINE SULFATE (*CRX) 15 MG TAB IR PO ×3 (09:18→20:57)
[2024-10-10] MEDS: VERAPAMIL HCL 120 MG TABLET IMMED RELEASE PO ×2 (09:18→20:57)
[2024-10-10] MEDS: PANTOPRAZOLE 40 MG TABLET PO (09:18)
[2024-10-10] MEDS: FINASTERIDE 5 MG TABLET PO (09:18)
[2024-10-10] MEDS: FAMOTIDINE 20 MG TABLET PO ×2 (09:18→20:57)
[2024-10-10] MEDS: DOCUSATE SODIUM 100 MG CAPSULE PO (09:18)
--- NOTE | 2024-10-10 12:07 | PM.PNGS ---
Progress Note: A&P Assessment and Plan (1) Cholelithiasis with acute cholecystitis without biliary obstruction: Qualifiers: Cholelithiasis location: gallbladder Qualified Code(s): K80.00 - Calculus of gallbladder with acute cholecystitis without obstruction Code(s): K80.00 - Calculus of gallbladder with acute cholecystitis without obstruction Status: Acute Assessment and Plan: Relieved with placement cholecystostomy tube. Abdomen benign and no further abdominal pain. (2) Enterococcal bacteremia: Code(s): R78.81 - Bacteremia; B95.2 - Enterococcus as the cause of diseases classified elsewhere Status: Acute Assessment and Plan: Continue ampicillin, ceftriaxone, and flagyl based on susceptibilities of the Enterococcus. (3) Antiplatelet or antithrombotic long-term use: Code(s): Z79.02 - senior living (current) use of antithrombotics/antiplatelets Status: Acute Assessment and Plan: No longer plan to proceed with cholecystectomy this week. Patient too ill with sepsis and bacteremia as well as acute on chronic renal failure. Plavix resumed. When patient is discharged, he will likely go home with cholecystostomy tube in place. 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: Qualifiers: Diabetes mellitus intermodal dispatcher insulin use: without halfway use Diabetes mellitus complication detail: with chronic kidney disease Chronic kidney disease stage: unspecified stage Qualified Code(s): E11.22 - Type 2 diabetes mellitus with diabetic chronic kidney disease Code(s): E11.29 - Type 2 diabetes mellitus with other diabetic kidney complication Status: Chronic (6) Acute kidney injury superimposed on CKD: Code(s): N17.9 - Acute kidney failure, unspecified; N18.9 - Chronic kidney disease, unspecified Status: Acute Assessment and Plan: Continue to monitor with serial labs. 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 No abdominal pain or discomfort. Sunni tube draining appropriately. He does complain of back and leg pain. Sitting up and working with PT upon visit today. Low grade fever yesterday. Temps in 98-99s today. WBC 12.6 (12.2 yesterday). Liver enzymes normal. Exam GI: Inspection: distended, obesity, scar (Small vertical midline scar from hand port site), no visible herniation and other (Cholecystostomy tube draining bile appropriately) Rectal Exam: deferred Objective Data Vital Signs Vital Signs: Vital Signs - 24 hr 10/09/24 14:00 10/09/24 20:00 10/09/24 21:14 Temperature 99 F 98.9 F Pulse Rate 79 86 Respiratory Rate 19 20 Blood Pressure 146/57 H 159/69 H Pulse Oximetry 99 98 Oxygen Delivery Room Air 10/09/24 21:35 10/10/24 04:58 10/10/24 09:40 Temperature 99.2 F Pulse Rate 83 Respiratory Rate 20 Blood Pressure 168/59 H Pulse Oximetry 98 100 Oxygen Delivery Room Air Room Air Intake/Output Intake/Output: Intake & Output 10/07/24 10/08/24 10/09/24 10/10/24 23:59 23:59 23:59 23:59 Intake Total 1080 1480 990 830 Output Total 550 1630 1030 430 Balance 530 -150 -40 400 Meds/Results Medications: Active Medications Generic Name Dose Route Start Last Admin Trade Name Freq PRN Reason Stop Dose Admin Acetaminophen 650 mg 09/30/24 19:02 10/06/24 13:40 Acetaminophen 325 Mg Tablet PO 650 mg Q4H PRN Administration Mild Pain (1-3) or Fever Albuterol 2 puff 10/03/24 15:40 10/04/24 09:06 Albuterol Sulfate (*Sp) Aerosol 1 Puff INHALATION 2 puff Q6HRT PRN Administration Shortness Of Breath Or Wheezing Clopidogrel Bisulfate 75 mg 10/01/24 09:00 10/10/24 09:17 Clopidogrel Bisulfate 75 Mg Tablet PO 75 mg DAILY VU Administration Dextrose 12.5 gm 09/30/24 20:29 Dextrose 50% 25 Gm/50 Ml Syringe IV PUSH PRN PRN Hypoglycemia Protocol Docusate Sodium 100 mg 10/01/24 09:00 10/10/24 09:18 Docusate Sodium 100 Mg Capsule PO 100 mg DAILY VU Administration Ezetimibe 10 mg 10/01/24 09:00 10/10/24 09:17 Ezetimibe 10 Mg Tablet PO 10 mg DAILY VU Administration Famotidine 20 mg 09/30/24 21:00 10/10/24 09:18 Famotidine 20 Mg Tablet PO 20 mg Q12HR VU Administration Finasteride 5 mg 10/01/24 09:00 10/10/24 09:18 Finasteride 5 Mg Tablet PO 5 mg DAILY VU Administration Fluticasone Propionate 2 spray 09/30/24 20:28 10/08/24 08:25 Fluticasone Propionate 0.05% Na Spr 16 Gm Btl (*Bkc) NASAL 2 spray DAILY PRN Administration allergy symptoms Furosemide 40 mg 10/09/24 09:00 10/09/24 17:25 Furosemide 40 Mg Tablet PO 40 mg BID VU Administration Glucagon 1 mg 09/30/24 20:29 Glucagon For Inj 1 Mg Vial IM PRN PRN Hypoglycemia Protocol Glucose 15 gm 09/30/24 20:29 Glucose Oral Gel 15 Gm Of Glucse In 37.5 Gm Tube PO PRN PRN Hypoglycemia Protocol Heparin Sodium (Porcine) 5,000 units 09/30/24 21:00 10/10/24 09:19 Heparin Sodium 5,000 Units/Ml Vial SUB-Q 5,000 units Q12HR VU Administration Dextrose 1,000 mls @ 100 mls/hr 09/30/24 20:29 Dextrose 5% 1,000 Ml IVPB PRN PRN Hypoglycemia Protocol Ampicillin Sodium 2 gm in 100 mls @ 200 mls/hr 10/07/24 10:00 10/10/24 09:49 Ampicillin 2 Gm/Ns 100 Ml IVPB Infused Q8H VU Infusion Ceftriaxone Sodium 2 gm in 100 mls @ 200 mls/hr 10/08/24 14:00 10/09/24 14:09 Rocephin 2 Gm/Ns 100 Ml IVPB 200 mls/hr Q24H VU Administration Insulin Aspart 1 - 3 units 09/30/24 21:00 10/09/24 21:24 Insulin Aspart (*Bkc) 100 Units/Ml SUB-Q Not Given HS VU Protocol Insulin Aspart 3 - 6 units 10/01/24 08:00 10/10/24 08:16 Insulin Aspart (*Bkc) 100 Units/Ml SUB-Q Not Given TIDWM [facility] Protocol Metronidazole 500 mg 10/08/24 14:00 10/10/24 05:21 Metronidazole 500 Mg Tablet PO 500 mg Q8HR VU Administration Miscellaneous Information 1 each 10/10/24 00:01 Please Renew Morphine_. Per [employer] Procedure, It Will Discontinue If Not Renewed XX 11/09/24 00:00 CLARIFY [facility] Morphine Sulfate 15 mg 09/30/24 20:28 10/10/24 09:18 Morphine Sulfate (*Crx) 15 Mg Tab Ir PO 15 mg Q8H PRN Administration pain 7-10 Morphine Sulfate 15 mg 10/07/24 09:53 10/09/24 21:31 Morphine Sulfate (*Crx) 15 Mg Tab Ir PO 15 mg Q4H PRN Administration Pain Rated 7-10 Ondansetron HCl 4 mg 09/30/24 19:02 10/02/24 18:18 Ondansetron Inj 4 Mg/2 Ml Vial IV PUSH 4 mg Q4H PRN Administration Nausea Pantoprazole Sodium 40 mg 10/07/24 09:00 10/10/24 09:18 Pantoprazole 40 Mg Tablet PO 40 mg QAM VU Administration Polyethylene Glycol 17 gm 10/01/24 21:11 10/07/24 09:06 Polyethylene Glycol 3350 17 Gm Powd.Pack PO 17 gm DAILY PRN Administration Constipation Sodium Chloride 500 mg 10/06/24 17:00 10/10/24 09:17 Sodium Chloride 500 Mg Tablet PO 500 mg BID VU Administration Verapamil HCl 120 mg 09/30/24 21:00 10/10/24 09:18 Verapamil Hcl 120 Mg Tablet Immed Release PO 120 mg Q12HR VU Administration Radiology Results: ITS Impressions Abdomen/Pelvis CT 09/30/24 19:00 IMPRESSION: Gallbladder hydrops without inflammatory change. Dilated common bile duct, measuring 14 mm. No obstructing stone or mass detected. Correlate with biliary labs. 3.4 cm fusiform infrarenal abdominal aortic aneurysm. Consider follow-up in 3 years. Upper Quadrant Ultrasound 10/01/24 08:43 IMPRESSION: 1. Cholelithiasis with a normal-appearing gallbladder but with mild intra and extrahepatic biliary ductal dilation which raises concern for a nonvisualized distal obstructing choledocholithiasis. Correlate with liver function tests and if clinically indicated could consider further evaluation with either MRCP or ERCP. Hepatobiliary Scan Nuclear Medicine 10/05/24 08:35 IMPRESSION: 1. No evident gallbladder activity consistent with acute cholecystitis. Cholecystostomy 10/05/24 16:57 IMPRESSION: 1. Successful ultrasound-guided cholecystostomy tube placement. 2. 35 mL bile was sent for aerobic, anaerobic, and fungal cultures. 3. The catheter will be managed by Dr. Brennan. Chest X-Ray 10/10/24 06:58 Impression: Clear lungs. Status post aortic valve replacement, with pacemaker device. Labs Labs: Laboratory Results - last 24 hr 10/09/24 10/09/24 10/10/24 17:07 21:14 04:48 WBC 12.6 H RBC 3.09 L Hgb 9.1 L Hct 28.4 L MCV 91.9 MCH 29.4 MCHC 32.0 RDW 15.2 H Plt Count 330 MPV 9.5 Sodium 134 L Potassium 4.0 Chloride 101 Carbon Dioxide 24 Anion Gap 9 BUN 57 H Creatinine 2.84 H Estim Creat Clear Calc 20 Estimated GFR 21 L Glucose 156 H POC Capillary Glucose 121 H 146 H Calcium 8.5 Phosphorus 3.2 Magnesium 2.1 Total Bilirubin 0.7 AST 30 ALT 21 Alkaline Phosphatase 100 Total Protein 6.3 Albumin 2.9 L 10/10/24 10/10/24 08:11 11:36 WBC RBC Hgb Hct MCV MCH MCHC RDW Plt Count MPV Sodium Potassium Chloride Carbon Dioxide Anion Gap BUN Creatinine Estim Creat Clear Calc Estimated GFR Glucose POC Capillary Glucose 110 H 171 H Calcium Phosphorus Magnesium Total Bilirubin AST ALT Alkaline Phosphatase Total Protein Albumin
--- NOTE | 2024-10-10 13:26 | P.PNNP_ITS ---
Progress Note: A&P Assessment and Plan (1) Acute kidney injury: Code(s): N17.9 - Acute kidney failure, unspecified Status: Acute Assessment and Plan: * improvement noted (if not back to baseline) * as noted on admission * complicated by significant azotemia/elevated BUN * mild improvement in creatinine but BUN still elevated by repeat labs * holding diuretics and s/p trial of IVFs * follow respiratory status closely given history of CHF * recent CXR noted clear lungs so hold diuretics for now * evaluation to date noted: * admission CT of A/P with no suspicious mass, obstructing stone, or hydronephrosis * prerenal urine electrolytes (by FeUrea) * urine eosinophils negative * mild proteinuria * normal/low CPK * UA without evidence of infection * suspect multifactorial etiology: * prerenal factors * overdiuresis * infection (bacteremia + cholecystitis) * other(?) * follow trend of repeat labs and UOP (2) Stage 4 chronic kidney disease: Code(s): N18.4 - Chronic kidney disease, stage 4 (severe) Status: Chronic Assessment and Plan: * slow and progressive decline noted * GFR ~ 22 to 23 in 2020/2021 * GFR ~ 20 to 21 in 2022/2023 * GFR ~ 18 by July 2024 labs * creatinine has been running anywhere from 2.4 - 3.2mg/dl in the last 6 months * creatinine on 09/27/24 (outpatient labs) = 3.93mg/dl (GFR 15) -- but this may have related to his acute medical issues currently * most likely due to diabetes and hypertension + chronic diuretic therapy (3) Azotemia: Code(s): R79.89 - Other specified abnormal findings of blood chemistry Status: Acute Assessment and Plan: * slow improvement noted * noted on admission * suspected related to diuretic therapy * however, underlying infection (see #4) likely a contributing factor as well... * no evidence of GI bleed * no other culprit medications * follow trend of BUN (4) Bacteremia: Code(s): R78.81 - Bacteremia Status: Acute Assessment and Plan: * blood culture results noted: * 10/04 blood cultures - Enterococcus faecalis * 10/05 blood cultures - Enterococcus faecalis * presumed source = gallbladder * gallbladder/bile culture - Enterococcus faecalis * on antibiotics * follow repeat blood cultures (5) Gallbladder hydrops: Code(s): K82.1 - Hydrops of gallbladder Status: Acute Assessment and Plan: * CT of A/P without overt acute cholecystitis * however, does have significant right upper quadrant pain on palpation with nausea and decreased oral intake * RUQ ultrasound results noted as well * LFTs normal * GI recommendations noted * Surgery following * s/p cholecystostomy tube placement (on 10/05) * will eventually need cholecystectomy * continue supportive therapy (6) Anemia: Code(s): D64.9 - Anemia, unspecified Status: Acute Assessment and Plan: * due to combo of LEROY, CKD, acute illness/infection and possibly previous IVFs * no need for SANKET at this time * follow trend of H/H (7) Hypertension: Code(s): I10 - Essential (primary) hypertension Status: Chronic Assessment and Plan: * reasonable control * follow trend of hemodynamics (8) Type 2 diabetes mellitus with hyperglycemia, without long-term current use of insulin: Code(s): E11.65 - Type 2 diabetes mellitus with hyperglycemia Status: Chronic Assessment and Plan: * follow accu-cheks * glycemic control per hospitalist Will continue to follow. L Subjective Date/time seen: 10/10/24 13:26 Interval history: Follow-up for acute kidney injury/acute renal failure on chronic kidney disease. Seems to be doing reasonably well at the time of my visit; no apparent distress noted; renal function/creatinine fluctuating (but was restarted on diuretics yesterday); no other acute issues/events overnight or earlier this morning. Exam 2 Narrative: General: elderly but WD/WN male in NAD Heart: normal S1 and S2; no rub Lungs: clear anteriorly Abdomen: soft, nontender, nondistended, positive bowel sounds Extremities: no cyanosis or clubbing; trace edema Skin: warm and dry Objective Data Vital Signs Vital Signs: Vital Signs Temp Pulse Resp BP Pulse Ox O2 Del Method 10/10/24 12:00 97.7 F 68 18 141/57 H 98 10/10/24 09:40 Room Air 10/10/24 04:58 99.2 F 83 20 168/59 H 100 10/09/24 21:35 98 Room Air 10/09/24 21:14 98.9 F 86 20 159/69 H 98 10/09/24 20:00 Room Air Intake/Output Intake/Output: Intake & Output 10/07/24 10/08/24 10/09/24 10/10/24 23:59 23:59 23:59 23:59 Intake Total 1080 1480 1090 1170 Output Total 550 1630 1030 430 Balance 530 -150 60 740 Meds/Results Medications: Active Medications Generic Name Dose Route Start Last Admin Trade Name Freq PRN Reason Stop Dose Admin Acetaminophen 650 mg 09/30/24 19:02 10/06/24 13:40 Acetaminophen 325 Mg Tablet PO 650 mg Q4H PRN Administration Mild Pain (1-3) or Fever Albuterol 2 puff 10/03/24 15:40 10/04/24 09:06 Albuterol Sulfate (*Sp) Aerosol 1 Puff INHALATION 2 puff Q6HRT PRN Administration Shortness Of Breath Or Wheezing Clopidogrel Bisulfate 75 mg 10/01/24 09:00 10/10/24 09:17 Clopidogrel Bisulfate 75 Mg Tablet PO 75 mg DAILY VU Administration Dextrose 12.5 gm 09/30/24 20:29 Dextrose 50% 25 Gm/50 Ml Syringe IV PUSH PRN PRN Hypoglycemia Protocol Docusate Sodium 100 mg 10/01/24 09:00 10/10/24 09:18 Docusate Sodium 100 Mg Capsule PO 100 mg DAILY VU Administration Ezetimibe 10 mg 10/01/24 09:00 10/10/24 09:17 Ezetimibe 10 Mg Tablet PO 10 mg DAILY VU Administration Famotidine 20 mg 09/30/24 21:00 10/10/24 09:18 Famotidine 20 Mg Tablet PO 20 mg Q12HR VU Administration Finasteride 5 mg 10/01/24 09:00 10/10/24 09:18 Finasteride 5 Mg Tablet PO 5 mg DAILY VU Administration Fluticasone Propionate 2 spray 09/30/24 20:28 10/08/24 08:25 Fluticasone Propionate 0.05% Na Spr 16 Gm Btl (*Bkc) NASAL 2 spray DAILY PRN Administration allergy symptoms Furosemide 40 mg 10/09/24 09:00 10/09/24 17:25 Furosemide 40 Mg Tablet PO 40 mg BID VU Administration Glucagon 1 mg 09/30/24 20:29 Glucagon For Inj 1 Mg Vial IM PRN PRN Hypoglycemia Protocol Glucose 15 gm 09/30/24 20:29 Glucose Oral Gel 15 Gm Of Glucse In 37.5 Gm Tube PO PRN PRN Hypoglycemia Protocol Heparin Sodium (Porcine) 5,000 units 09/30/24 21:00 10/10/24 09:19 Heparin Sodium 5,000 Units/Ml Vial SUB-Q 5,000 units Q12HR VU Administration Dextrose 1,000 mls @ 100 mls/hr 09/30/24 20:29 Dextrose 5% 1,000 Ml IVPB PRN PRN Hypoglycemia Protocol Ampicillin Sodium 2 gm in 100 mls @ 200 mls/hr 10/07/24 10:00 10/10/24 17:07 Ampicillin 2 Gm/Ns 100 Ml IVPB 200 mls/hr Q8H VU Administration Ceftriaxone Sodium 2 gm in 100 mls @ 200 mls/hr 10/08/24 14:00 10/10/24 14:26 Rocephin 2 Gm/Ns 100 Ml IVPB Infused Q24H VU Infusion Insulin Aspart 1 - 3 units 09/30/24 21:00 10/09/24 21:24 Insulin Aspart (*Bkc) 100 Units/Ml SUB-Q Not Given HS VU Protocol Insulin Aspart 3 - 6 units 10/01/24 08:00 10/10/24 17:10 Insulin Aspart (*Bkc) 100 Units/Ml SUB-Q Not Given TIDWM [facility] Protocol Metronidazole 500 mg 10/08/24 14:00 10/10/24 13:53 Metronidazole 500 Mg Tablet PO 500 mg Q8HR VU Administration Miscellaneous Information 1 each 10/10/24 00:01 Please Renew Morphine_. Per [employer] Procedure, It Will Discontinue If Not Renewed XX 11/09/24 00:00 CLARIFY VU Morphine Sulfate 15 mg 09/30/24 20:28 10/10/24 09:18 Morphine Sulfate (*Crx) 15 Mg Tab Ir PO 15 mg Q8H PRN Administration pain 7-10 Morphine Sulfate 15 mg 10/07/24 09:53 10/10/24 13:56 Morphine Sulfate (*Crx) 15 Mg Tab Ir PO 15 mg Q4H PRN Administration Pain Rated 7-10 Ondansetron HCl 4 mg 09/30/24 19:02 10/02/24 18:18 Ondansetron Inj 4 Mg/2 Ml Vial IV PUSH 4 mg Q4H PRN Administration Nausea Pantoprazole Sodium 40 mg 10/07/24 09:00 10/10/24 09:18 Pantoprazole 40 Mg Tablet PO 40 mg QAM VU Administration Polyethylene Glycol 17 gm 10/10/24 13:40 10/10/24 13:53 Polyethylene Glycol 3350 17 Gm Powd.Pack PO 17 gm QAM VU Administration Sodium Chloride 500 mg 10/06/24 17:00 10/10/24 17:07 Sodium Chloride 500 Mg Tablet PO 500 mg BID VU Administration Verapamil HCl 120 mg 09/30/24 21:00 10/10/24 09:18 Verapamil Hcl 120 Mg Tablet Immed Release PO 120 mg Q12HR VU Administration Radiology Results: ITS Impressions Abdomen/Pelvis CT 09/30/24 19:00 IMPRESSION: Gallbladder hydrops without inflammatory change. Dilated common bile duct, measuring 14 mm. No obstructing stone or mass detected. Correlate with biliary labs. 3.4 cm fusiform infrarenal abdominal aortic aneurysm. Consider follow-up in 3 years. Upper Quadrant Ultrasound 10/01/24 08:43 IMPRESSION: 1. Cholelithiasis with a normal-appearing gallbladder but with mild intra and extrahepatic biliary ductal dilation which raises concern for a nonvisualized distal obstructing choledocholithiasis. Correlate with liver function tests and if clinically indicated could consider further evaluation with either MRCP or ERCP. Hepatobiliary Scan Nuclear Medicine 10/05/24 08:35 IMPRESSION: 1. No evident gallbladder activity consistent with acute cholecystitis. Cholecystostomy 10/05/24 16:57 IMPRESSION: 1. Successful ultrasound-guided cholecystostomy tube placement. 2. 35 mL bile was sent for aerobic, anaerobic, and fungal cultures. 3. The catheter will be managed by Dr. Brennan. Chest X-Ray 10/10/24 06:58 Impression: Clear lungs. Status post aortic valve replacement, with pacemaker device. Labs Labs: Laboratory Tests 10/10/24 04:48 10/10/24 04:48 Calcium 8.5 Phosphorus 3.2 Magnesium 2.1 Total Bilirubin 0.7 AST 30 ALT 21 Alkaline Phosphatase 100 Total Protein 6.3 Albumin 2.9 L Microbiology 10/05/24 16:15 Gallbladder Anaerobic Culture - Preliminary 10/05/24 16:15 Gallbladder Aerobic Culture - Final Enterococcus species
--- NOTE | 2024-10-10 13:36 | P.PNIM_ITS ---
Progress Note: A&P Assessment and Plan (1) Chest pain: Qualifiers: Chest pain type: unspecified Qualified Code(s): R07.9 - Chest pain, unspecified Code(s): R07.9 - Chest pain, unspecified Status: Acute Assessment and Plan: -Chest pain seems atypical in nature, pt continue to deny CP. -Troponin are elevated but flat. Will complete troponin series. -Pain seems more consistent with GI cause with reported indigestion and significant right upper quadrant pain. -Will continue Antihypertensives and Plavix. -->HOLD Plavix starting 10/05 for eventual lap torrie per surg 10/07: Per surg: No longer plan to proceed with cholecystectomy this week. Patient to ill with sepsis and bacteremia as well as acute on chronic renal failure. Will resume Plavix today. Pt continues to deny CP/SOB or any other worrisome sx. (2) Acute kidney injury superimposed on CKD: Code(s): N17.9 - Acute kidney failure, unspecified; N18.9 - Chronic kidney disease, unspecified Status: Acute Assessment and Plan: Patient has chronic kidney disease stage 4 with acute kidney injury. Most likely prerenal due to intervascular volume depletion. - Hold Lasix and continue IV fluid hydration at 75ml/hr. - Nephrology was consulted from the ER. - Continue flomax 10/02- cr/bun 2.96/100 10/03: Cr/BUN: 3.26/91, pending neph rounds due to worsening Cr 10/04: Cr/BUN: 3.43/90, Started IVF again today, continue to hold lasix 10/05: Cr/BUN: 3.54/[address] Lopez today, he believes that once the torrie tube is placed and with IV abx on board, kidney labs should begin to normalize back to pt baseline which is CKD4. Will continue to monitor levels. Dr. Lopez on for the weekend. 10/06: Cr/BUN: 2.84/84, starting to trend down, will continue to monitor daily IVF D/C due to better trending kidneys, lasix still on hold (no pulm congestion), and adequate intake. 10/07: Kidney levels continuing to improve Cr/BUN: 2.33/27 -If continues to improve, will start Lasix back up tomorrow. at the bedside today concerned for his BLE edema, which has not worsened per my exam. Pt also denies CP/SOB. 10/08: Kidney levels continuing to improve Cr/BUN: 2.15/59 -Lasix restarted today 10/09 daily: Cr/BUN: 2.41/55 Per neph 10/08: * slow and progressive decline noted * GFR ~ 22 to 23 in * GFR ~ 20 to 21 in * GFR ~ 18 by July 2024 labs * creatinine has been running anywhere from 2.4 - 3.2mg/dl in the last 6 months * creatinine on 09/27/24 (outpatient labs) = 3.93mg/dl (GFR 15) -- but this may have related to his acute medical issues currently * most likely due to diabetes and hypertension + chronic diuretic therapy go to the 10/10: Cr/BUN: 2.84/57. Nephrology following, appreciate recommendations. (3) Acute uremia: Code(s): N19 - Unspecified kidney failure Status: Acute Assessment and Plan: Possibly due to hypovolemia. GI bleed is less likely given patient's hemoglobin is stable at 12 in ED and patient denies symptoms of hematemesis hematochezia or melena. Pt continues to deny any blood loss. -Will hold Lasix and continue IV fluid hydration and repeat CBC and electrolyte panel in a.m. -Decrease IV fluids to 50 ml and monitor I/O closely 10/03: -H/H as of 10/03: 9.6/30.5 -Pt appetite still decreased, continue IVF 50/hr 10/04: -H/H 9.8/30.5 -Started again on IVF to try to normalize creat, pt will be NPO at [facility] anyway for procedure tomorrow. 10/05: -H/H 9.9/31.3 -IVF down to 75 ml/hr for NPO status and to avoid pulm edema Spoke to Dr. Lopez today, he believes that once the torrie tube is placed and with IV abx on board, kidney labs should begin to normalize back to pt baseline which is CKD4. Will continue to monitor levels. Dr. Lopez on for the weekend. 10/06: -H/H 10.8/35.4 -IVF stopped today, appetite better 10/07: -H/H: 9.7/29.8 10/08: -H/H: 10.3/31.7 10/10: -H/H 9.1/28.4. (4) Gallbladder hydrops: Code(s): K82.1 - Hydrops of gallbladder Status: Acute Assessment and Plan: CT does not suggest overt acute cholecystitis but patient does have significant kit right upper quadrant pain on palpation and worsening of his nausea with palpation of right upper quadrant. -RUQ US for better visualization of the gallbladder: 1. Cholelithiasis with a normal-appearing gallbladder but with mild intra and extrahepatic biliary ductal dilation which raises concern for a nonvisualized distal obstructing choledocholithiasis. Correlate with liver function tests and if clinically indicated could consider further evaluation with either MRCP or ERCP. -->Consulted GI 10/03, pending recs/rounding -Bilirubin and transaminases are normal. -Patient does have some leukocytosis but no fever. -Will hold off on adding antibiotic coverage at this time and will repeat CBC in a.m. 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 His symptoms are likely related to his gallbadder and there is concern for choledocholithiasis given his common bile duct dilatation on imaging. Since his Plavix has been continued, he would not be a candidate for a laparoscopic cholecystectomy at this time. He received his last dose of Plavix this morning, which I have put on hold. Since he continues to have symptoms, we would recommend proceeding with percutaneous cholecystostomy tube placement to treat his cholecystitis. We will eventually consider proceeding with a laparoscopic cholecystectomy with intraoperative cholangiogram to evaluate for choledocholithiasis, but this will be at a later date, possibly as an outpatient depending on how he is progressing medically, when his Plavix can be held for an adequate amount of time. This would also allow time for improved medical optimization in regards to his renal failure and pulmonary edema. Will repeat labs tomorrow and include a CMP to re-evaluate his liver enzymes. Although his WBC count has been trending down, I will also start him on broad-spectrum IV antibiotics to cover for cholecystitis/cholangitis given his persistent pain/fever/leukocytosis. Plavix has been continued since his admission. He received a dose this morning. Will hold his Plavix now, which ideally is held for 5 days prior to a cholecystectomy. -->Plan for torrie tube placement tomorrow, surg started ceftriaxone and flagyl today 10/05: HIDA scan and cholecystectomy tube placement today. Low fat diet started after procedure. Will continue to monitor tube and daily AM labs. 10/06: Pt looking a lot better since tube placement yesterday. Pt reporting some pain in his RLQ and tube insertion site but per pt his morphine home dose has been taking care of the pain. -Per surg note today: Cholecystostomy tube placed yesterday. Having pain at drain site. Cholecystostomy tube will alleviate acute cholecystitis. Will not help if patient has cholangitis. Although the bile ducts are dilated, liver function tests are normal. Cholangitis seems unlikely. Bacteremia: Receiving appropriate antibiotics with vancomycin and cefepime. Pending susceptibility testing on the Enterococcus 10/07: Per surg: Relieved with placement cholecystostomy tube. Abdomen benign and no further abdominal pain. No longer plan to proceed with cholecystectomy this week. Patient to ill with sepsis and bacteremia as well as acute on chronic renal failure. Will resume Plavix today. -Pt denies pain to his abd or torrie tube site. 10/08: -Slight WBC increase overnight, 10.4-->12.1 -Per surg rounds: Relieved with placement cholecystostomy tube. Abdomen benign and no further abdominal pain. No longer plan to proceed with cholecystectomy this week. Patient too ill with sepsis and bacteremia as well as acute on chronic renal failure. Plavix resumed. -Switched abx yesterday from vanc ampicillin and gentamicin based on susceptibilities of the Enterococcus per pharm 10/09: -Slight WBC increase overnight again, surg aware. Continue IV abx. Continue to monitor torrie tube, labs, VS. 10/10: -WBC 12.6, Ampicillin 2 gram IVPB q 8, Ceftriaxone 2 gram IVPB daily, and Metronidazole 500 mg PO q 8. Continue to monitor torrie tube, labs, VS. PT/OT. Surgery following, appreciate recommendations. (5) Type 2 diabetes mellitus with hyperglycemia, without long-term current use of insulin: Code(s): E11.65 - Type 2 diabetes mellitus with hyperglycemia Status: Chronic Assessment and Plan: Hold Actos -Moderate dose sliding scale insulin with Accu-Cheks a.c. HS and hypoglycemia protocol. -Glucose has been stable during stay (6) Chronic pain: Qualifiers: Chronic pain type: chronic pain syndrome Qualified Code(s): G89.4 - Chronic pain syndrome Code(s): G89.29 - Other chronic pain Status: Acute Assessment and Plan: Will resume patient's home morphine 15 mg Q 8 hours p.r.n. pain 7-10. (7) Abdominal aortic aneurysm (AAA) 3.0 cm to 5.5 cm in diameter in male: Code(s): I71.40 - Abdominal aortic aneurysm, without rupture, unspecified Status: Acute Assessment and Plan: Likely chronic will defer follow-up to patient's primary care provider for serial imaging (8) Antiplatelet or antithrombotic long-term use: Code(s): Z79.02 - salvage determiner (current) use of antithrombotics/antiplatelets Status: Acute Assessment and Plan: Pt with hx of pacemaker and plavix long-term use. Per surg: Plavix has been continued since his admission. He received a dose this morning. Will hold his Plavix now, which ideally is held for 5 days prior to a cholecystectomy. 10/07: Per surg: No longer plan to proceed with cholecystectomy this week. Patient to ill with sepsis and bacteremia as well as acute on chronic renal failure. Will resume Plavix today. -Plan for outpatient lap torrie potentially, surg to continue to follow. (9) Bacteremia: Code(s): R78.81 - Bacteremia Status: Acute Assessment and Plan: 10/05: Both blood cultures resulted today with Gram + cocci in chains -->Spoke with ID pharm, reports could be either strep strain (covered by Ceftriaxone) or Entero strain (covered by Vanc) --->Will start vanc today to treat if ends up being entero strain to get ahead of the infection, will f/u tomorrow for final reads -Pt on Ceftriaxone 2g already via surg for low grade fevers and leukocytosis, will continue. -Ordered echo 10/05 to r/o endocarditis -Also repeat order for BC placed today 10/06: X1 BC final result yielding enterococcus faecalis, will continue with vanc, pending second final BC result -Will continue to trend BCs 10/07: After a slight bump, WBC continues to downtrend slightly, will continue to monitor. Per surg today: Spoke with pharmacist. Will change to ampicillin and gentamicin based on susceptibilities of the Enterococcus -->Gallbladder wound culture prelim resulted today for Enterococcus, continue ampicillin and gentamicin -Will continue to trend BCs, new draw tomorrow AM scheduled 10/08: -Slight WBC increase overnight, 10.4-->12.1 -Per surg: Continue ampicillin and gentamicin based on susceptibilities of the Enterococcus. -Switched abx yesterday from vanc ampicillin and gentamicin based on susceptibilities of the Enterococcus per pharm -Will continue to monitor daily labs 10/09: -Very slight, surg aware. Continue IV abx. Continue to monitor torrie tube, labs, VS. 10/10: -WBC 12.6, Ampicillin 2 gram IVPB q 8, Ceftriaxone 2 gram IVPB daily, and Metronidazole 500 mg PO q 8. Continue to monitor torrie tube, labs, VS. (10) Hyponatremia: Code(s): E87.1 - Hypo-osmolality and hyponatremia Status: Acute Assessment and Plan: Levels have been low since admission despite IVF NS. -Sodium chl tablets started 10/06 to normalize -Will continue to trend pt status and daily labs 10/07: Na 134 10/08: Na 135 10/09: Na 134 10/10: Na 134. Plan Torrie tube placement 10/05, continue to monitor pt with labs, VS, and pain control. Surg started IV abx 10/04. Surg restarted Plavix 10/07 due to pt being too sick for lap torrie during this admission. Per surg, per pharm, abx changed for wound culture +enterococcus coverage. Obtained new BC 10/08, pending clear BC. Subjective Date/time seen: 10/10/24 13:36 Interval history: Patient sitting up in chair. Patient reports pain on right side down his right leg that is a6, constant, and aching. Patient denies chest pain, palpitations, headache, dizziness, nausea, or vomiting. Appetite is fair. Review of Systems Review of Systems: All systems reviewed & are unremarkable except as noted in HPI and below Exam Const: General: no acute distress and uncomfortable Resp: Effort & Inspection: normal respiratory effort Auscultation: clear to auscultation bilaterally Cardio: Rate: regular rate Rhythm: regular rhythm GI: GI Palp: Yes Soft to palpation Auscultation: normal bowel sounds Other: Torrie tube with bile colored drainage, minimal Neuro: Speech: normal speech Extrem: General: pedal edema on the right 1+ and on the left 2+ Psych: Mental Status: mental status grossly normal Affect: normal affect Objective Data Vital Signs Vital Signs: Vital Signs - 24 hr 10/09/24 14:00 10/09/24 20:00 10/09/24 21:14 Temperature 99 F 98.9 F Pulse Rate 79 86 Respiratory Rate 19 20 Blood Pressure 146/57 H 159/69 H Pulse Oximetry 99 98 Oxygen Delivery Room Air 10/09/24 21:35 10/10/24 04:58 10/10/24 09:40 Temperature 99.2 F Pulse Rate 83 Respiratory Rate 20 Blood Pressure 168/59 H Pulse Oximetry 98 100 Oxygen Delivery Room Air Room Air Intake/Output Intake/Output: Intake & Output 10/07/24 10/08/24 10/09/24 10/10/24 23:59 23:59 23:59 23:59 Intake Total 1080 1480 990 830 Output Total 550 1630 1030 430 Balance 530 -150 -40 400 Meds/Results Medications: Active Medications Generic Name Dose Route Start Last Admin Trade Name Freq PRN Reason Stop Dose Admin Acetaminophen 650 mg 09/30/24 19:02 10/06/24 13:40 Acetaminophen 325 Mg Tablet PO 650 mg Q4H PRN Administration Mild Pain (1-3) or Fever Albuterol 2 puff 10/03/24 15:40 10/04/24 09:06 Albuterol Sulfate (*Sp) Aerosol 1 Puff INHALATION 2 puff Q6HRT PRN Administration Shortness Of Breath Or Wheezing Clopidogrel Bisulfate 75 mg 10/01/24 09:00 10/10/24 09:17 Clopidogrel Bisulfate 75 Mg Tablet PO 75 mg DAILY VU Administration Dextrose 12.5 gm 09/30/24 20:29 Dextrose 50% 25 Gm/50 Ml Syringe IV PUSH PRN PRN Hypoglycemia Protocol Docusate Sodium 100 mg 10/01/24 09:00 10/10/24 09:18 Docusate Sodium 100 Mg Capsule PO 100 mg DAILY VU Administration Ezetimibe 10 mg 10/01/24 09:00 10/10/24 09:17 Ezetimibe 10 Mg Tablet PO 10 mg DAILY VU Administration Famotidine 20 mg 09/30/24 21:00 10/10/24 09:18 Famotidine 20 Mg Tablet PO 20 mg Q12HR VU Administration Finasteride 5 mg 10/01/24 09:00 10/10/24 09:18 Finasteride 5 Mg Tablet PO 5 mg DAILY VU Administration Fluticasone Propionate 2 spray 09/30/24 20:28 10/08/24 08:25 Fluticasone Propionate 0.05% Na Spr 16 Gm Btl (*Bkc) NASAL 2 spray DAILY PRN Administration allergy symptoms Furosemide 40 mg 10/09/24 09:00 10/09/24 17:25 Furosemide 40 Mg Tablet PO 40 mg BID VU Administration Glucagon 1 mg 09/30/24 20:29 Glucagon For Inj 1 Mg Vial IM PRN PRN Hypoglycemia Protocol Glucose 15 gm 09/30/24 20:29 Glucose Oral Gel 15 Gm Of Glucse In 37.5 Gm Tube PO PRN PRN Hypoglycemia Protocol Heparin Sodium (Porcine) 5,000 units 09/30/24 21:00 10/10/24 09:19 Heparin Sodium 5,000 Units/Ml Vial SUB-Q 5,000 units Q12HR VU Administration Dextrose 1,000 mls @ 100 mls/hr 09/30/24 20:29 Dextrose 5% 1,000 Ml IVPB PRN PRN Hypoglycemia Protocol Ampicillin Sodium 2 gm in 100 mls @ 200 mls/hr 10/07/24 10:00 10/10/24 09:49 Ampicillin 2 Gm/Ns 100 Ml IVPB Infused Q8H VU Infusion Ceftriaxone Sodium 2 gm in 100 mls @ 200 mls/hr 10/08/24 14:00 10/09/24 14:09 Rocephin 2 Gm/Ns 100 Ml IVPB 200 mls/hr Q24H VU Administration Insulin Aspart 1 - 3 units 09/30/24 21:00 10/09/24 21:24 Insulin Aspart (*Bkc) 100 Units/Ml SUB-Q Not Given HS VU Protocol Insulin Aspart 3 - 6 units 10/01/24 08:00 10/10/24 08:16 Insulin Aspart (*Bkc) 100 Units/Ml SUB-Q Not Given TIDWM VU Protocol Metronidazole 500 mg 10/08/24 14:00 10/10/24 05:21 Metronidazole 500 Mg Tablet PO 500 mg Q8HR VU Administration Miscellaneous Information 1 each 10/10/24 00:01 Please Renew Morphine_. Per [employer] Procedure, It Will Discontinue If Not Renewed XX 11/09/24 00:00 CLARIFY VU Morphine Sulfate 15 mg 09/30/24 20:28 10/10/24 09:18 Morphine Sulfate (*Crx) 15 Mg Tab Ir PO 15 mg Q8H PRN Administration pain 7-10 Morphine Sulfate 15 mg 10/07/24 09:53 10/09/24 21:31 Morphine Sulfate (*Crx) 15 Mg Tab Ir PO 15 mg Q4H PRN Administration Pain Rated 7-10 Ondansetron HCl 4 mg 09/30/24 19:02 10/02/24 18:18 Ondansetron Inj 4 Mg/2 Ml Vial IV PUSH 4 mg Q4H PRN Administration Nausea Pantoprazole Sodium 40 mg 10/07/24 09:00 10/10/24 09:18 Pantoprazole 40 Mg Tablet PO 40 mg QAM VU Administration Polyethylene Glycol 17 gm 10/01/24 21:11 10/07/24 09:06 Polyethylene Glycol 3350 17 Gm Powd.Pack PO 17 gm DAILY PRN Administration Constipation Sodium Chloride 500 mg 10/06/24 17:00 10/10/24 09:17 Sodium Chloride 500 Mg Tablet PO 500 mg BID VU Administration Verapamil HCl 120 mg 09/30/24 21:00 10/10/24 09:18 Verapamil Hcl 120 Mg Tablet Immed Release PO 120 mg Q12HR VU Administration Radiology Results: ITS Impressions Abdomen/Pelvis CT 09/30/24 19:00 IMPRESSION: Gallbladder hydrops without inflammatory change. Dilated common bile duct, measuring 14 mm. No obstructing stone or mass detected. Correlate with biliary labs. 3.4 cm fusiform infrarenal abdominal aortic aneurysm. Consider follow-up in 3 years. Upper Quadrant Ultrasound 10/01/24 08:43 IMPRESSION: 1. Cholelithiasis with a normal-appearing gallbladder but with mild intra and extrahepatic biliary ductal dilation which raises concern for a nonvisualized distal obstructing choledocholithiasis. Correlate with liver function tests and if clinically indicated could consider further evaluation with either MRCP or ERCP. Hepatobiliary Scan Nuclear Medicine 10/05/24 08:35 IMPRESSION: 1. No evident gallbladder activity consistent with acute cholecystitis. Cholecystostomy 10/05/24 16:57 IMPRESSION: 1. Successful ultrasound-guided cholecystostomy tube placement. 2. 35 mL bile was sent for aerobic, anaerobic, and fungal cultures. 3. The catheter will be managed by Dr. Brennan. Chest X-Ray 10/10/24 06:58 Impression: Clear lungs. Status post aortic valve replacement, with pacemaker device. Labs Labs: Laboratory Results - last 24 hr 10/09/24 10/09/24 10/10/24 17:07 21:14 04:48 WBC 12.6 H RBC 3.09 L Hgb 9.1 L Hct 28.4 L MCV 91.9 MCH 29.4 MCHC 32.0 RDW 15.2 H Plt Count 330 MPV 9.5 Sodium 134 L Potassium 4.0 Chloride 101 Carbon Dioxide 24 Anion Gap 9 BUN 57 H Creatinine 2.84 H Estim Creat Clear Calc 20 Estimated GFR 21 L Glucose 156 H POC Capillary Glucose 121 H 146 H Calcium 8.5 Phosphorus 3.2 Magnesium 2.1 Total Bilirubin 0.7 AST 30 ALT 21 Alkaline Phosphatase 100 Total Protein 6.3 Albumin 2.9 L 10/10/24 10/10/24 08:11 11:36 WBC RBC Hgb Hct MCV MCH MCHC RDW Plt Count MPV Sodium Potassium Chloride Carbon Dioxide Anion Gap BUN Creatinine Estim Creat Clear Calc Estimated GFR Glucose POC Capillary Glucose 110 H 171 H Calcium Phosphorus Magnesium Total Bilirubin AST ALT Alkaline Phosphatase Total Protein Albumin Quality VTE Prophylaxis VTE prophylaxis: pharmacologic ordered (Heparin 5000 units subQ q.12 hours.)
[2024-10-10] MEDS: cefTRIAXone 2 GM/NS 100 ML 2 GM/100 ML BAG IVPB (13:56)
[2024-10-10 14:00] VITALS: BP 141/57; PULSE 68; RESP 18; TEMP 36.5; O2SAT 98
[2024-10-10 20:15] VITALS: BP 146/52; PULSE 83; RESP 16; TEMP 36.9; O2SAT 99
[2024-10-10 21:26] VITALS: PULSE 76; RESP 20; O2SAT 94
[2024-10-11] MEDS: AMPICILLIN 2 GM/NS 100 ML 2 GM/100 ML BAG IVPB ×3 (02:02→17:22)
[2024-10-11] MEDS: MORPHINE SULFATE (*CRX) 15 MG TAB IR PO ×3 (05:20→22:57)
[2024-10-11 05:38] LABS: Hematocrit 28.0 % (42.0-52.0); Hemoglobin 9.1 g/dL (14.0-18.0); Mean Corpuscular HGB Conc 32.5 g/dl (32-36); Mean Corpuscular Hemoglobin 29.7 pg (26-34); Mean Corpuscular Volume 91.5 fl (80-100); Platelet Count Result 400 k/mm3 (150-375); Red Blood Count 3.06 M/mm3 (4.6-6.20); White Blood Count 12.5 K/mm3 (4.5-10.0)
[2024-10-11 05:42] VITALS: BP 154/65; PULSE 85; RESP 16; TEMP 37.2; O2SAT 98
[2024-10-11 05:53] LABS: Alanine Aminotransferase 23 U/L (6-50); Albumin Level 2.9 g/dL (3.5-5.1); Alkaline Phosphatase 109 U/L (38-126); Anion Gap 8 mmol/L (4-12); Aspartate Amino Transferase 36 U/L (17-59); Bilirubin,Total 0.8 mg/dL (0.2-1.3); Blood Urea Nitrogen 55 mg/dL (9-20); Calcium 8.5 mg/dL (8.4-10.2); Carbon Dioxide 23 mmol/L (22-30); Chloride 100 mmol/L (98-107); Estimated CRCL calculation 19 ml/min; Estimated Glomerular Filt Rate 20; Glucose 124 mg/dL (65-110); Potassium 4.2 mmol/L (3.4-5.0); Sodium 131 mmol/L (137-145); Total Protein 6.2 g/dL (6.3-8.2)
[2024-10-11 08:00] VITALS: PULSE 85; RESP 16; O2SAT 98
[2024-10-11] MEDS: FLUTICASONE PROPIONATE 0.05% NA SPR 16 GM BTL (*BKC) 2 SPRAY NASAL (08:00)
[2024-10-11] MEDS: EZETIMIBE 10 MG TABLET PO (08:00)
[2024-10-11] MEDS: SODIUM CHLORIDE 500 MG TABLET PO ×2 (08:00→17:22)
[2024-10-11] MEDS: CLOPIDOGREL BISULFATE 75 MG TABLET PO (08:01)
[2024-10-11] MEDS: FAMOTIDINE 20 MG TABLET PO ×2 (08:01→21:04)
[2024-10-11] MEDS: DOCUSATE SODIUM 100 MG CAPSULE PO (08:01)
[2024-10-11] MEDS: PANTOPRAZOLE 40 MG TABLET PO (08:01)
[2024-10-11] MEDS: FINASTERIDE 5 MG TABLET PO (08:01)
[2024-10-11] MEDS: VERAPAMIL HCL 120 MG TABLET IMMED RELEASE PO ×2 (08:01→21:04)
--- NOTE | 2024-10-11 10:38 | P.PNIM_ITS ---
Progress Note: A&P Assessment and Plan (1) Chest pain: Qualifiers: Chest pain type: unspecified Qualified Code(s): R07.9 - Chest pain, unspecified Code(s): R07.9 - Chest pain, unspecified Status: Acute Assessment and Plan: -Chest pain seems atypical in nature, pt continue to deny CP. -Troponin are elevated but flat. Will complete troponin series. -Pain seems more consistent with GI cause with reported indigestion and significant right upper quadrant pain. -Will continue Antihypertensives and Plavix. -->HOLD Plavix starting 10/05 for eventual lap torrie per surg 10/07: Per surg: No longer plan to proceed with cholecystectomy this week. Patient to ill with sepsis and bacteremia as well as acute on chronic renal failure. Will resume Plavix today. Pt continues to deny CP/SOB or any other worrisome sx. (2) Acute kidney injury superimposed on CKD: Code(s): N17.9 - Acute kidney failure, unspecified; N18.9 - Chronic kidney disease, unspecified Status: Acute Assessment and Plan: Patient has chronic kidney disease stage 4 with acute kidney injury. Most likely prerenal due to intervascular volume depletion. - Hold Lasix and continue IV fluid hydration at 75ml/hr. - Nephrology was consulted from the ER. - Continue flomax 10/02- cr/bun 2.96/100 10/03: Cr/BUN: 3.26/91, pending neph rounds due to worsening Cr 10/04: Cr/BUN: 3.43/90, Started IVF again today, continue to hold lasix 10/05: Cr/BUN: 3.54/[address] Lopez today, he believes that once the torrie tube is placed and with IV abx on board, kidney labs should begin to normalize back to pt baseline which is CKD4. Will continue to monitor levels. Dr. Lopez on for the weekend. 10/06: Cr/BUN: 2.84/84, starting to trend down, will continue to monitor daily IVF D/C due to better trending kidneys, lasix still on hold (no pulm congestion), and adequate intake. 10/07: Kidney levels continuing to improve Cr/BUN: 2.33/27 -If continues to improve, will start Lasix back up tomorrow. at the bedside today concerned for his BLE edema, which has not worsened per my exam. Pt also denies CP/SOB. 10/08: Kidney levels continuing to improve Cr/BUN: 2.15/59 -Lasix restarted today 10/09 daily: Cr/BUN: 2.41/55 Per neph 10/08: * slow and progressive decline noted * GFR ~ 22 to 23 in * GFR ~ 20 to 21 in * GFR ~ 18 by July 2024 labs * creatinine has been running anywhere from 2.4 - 3.2mg/dl in the last 6 months * creatinine on 09/27/24 (outpatient labs) = 3.93mg/dl (GFR 15) -- but this may have related to his acute medical issues currently * most likely due to diabetes and hypertension + chronic diuretic therapy go to the 10/10: Cr/BUN: 2.84/57. Nephrology following, appreciate recommendations. 10/11: Cr/BUN 3.02/55. Nephrology following, appreciate recommendations. (3) Acute uremia: Code(s): N19 - Unspecified kidney failure Status: Acute Assessment and Plan: Possibly due to hypovolemia. GI bleed is less likely given patient's hemoglobin is stable at 12 in ED and patient denies symptoms of hematemesis hematochezia or melena. Pt continues to deny any blood loss. -Will hold Lasix and continue IV fluid hydration and repeat CBC and electrolyte panel in a.m. -Decrease IV fluids to 50 ml and monitor I/O closely 10/03: -H/H as of 10/03: 9.630.5 -Pt appetite still decreased, continue IVF 50/hr 10/04: -H/H 9.830.5 -Started again on IVF to try to normalize creat, pt will be NPO at [facility] anyway for procedure tomorrow. 10/05: -H/H 9.931.3 -IVF down to 75 ml/hr for NPO status and to avoid pulm edema Spoke to Dr. Lopez today, he believes that once the torrie tube is placed and with IV abx on board, kidney labs should begin to normalize back to pt baseline which is CKD4. Will continue to monitor levels. Dr. Loepz on for the weekend. 10/06: -H/H 10.8/35.4 -IVF stopped today, appetite better 10/07: -H/H: 9.7/29.8 10/08: -H/H: 10.3/31.7 10/10: -H/H 9.1/28.4. 10/11: H&H 9.1/28.0. (4) Gallbladder hydrops: Code(s): K82.1 - Hydrops of gallbladder Status: Acute Assessment and Plan: CT does not suggest overt acute cholecystitis but patient does have significant kit right upper quadrant pain on palpation and worsening of his nausea with palpation of right upper quadrant. -RUQ US for better visualization of the gallbladder: 1. Cholelithiasis with a normal-appearing gallbladder but with mild intra and extrahepatic biliary ductal dilation which raises concern for a nonvisualized distal obstructing choledocholithiasis. Correlate with liver function tests and if clinically indicated could consider further evaluation with either MRCP or ERCP. -->Consulted GI 10/03, pending recs/rounding -Bilirubin and transaminases are normal. -Patient does have some leukocytosis but no fever. -Will hold off on adding antibiotic coverage at this time and will repeat CBC in a.m. 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 His symptoms are likely related to his gallbadder and there is concern for choledocholithiasis given his common bile duct dilatation on imaging. Since his Plavix has been continued, he would not be a candidate for a laparoscopic cholecystectomy at this time. He received his last dose of Plavix this morning, which I have put on hold. Since he continues to have symptoms, we would recommend proceeding with percutaneous cholecystostomy tube placement to treat his cholecystitis. We will eventually consider proceeding with a laparoscopic cholecystectomy with intraoperative cholangiogram to evaluate for choledocholithiasis, but this will be at a later date, possibly as an outpatient depending on how he is progressing medically, when his Plavix can be held for an adequate amount of time. This would also allow time for improved medical optimization in regards to his renal failure and pulmonary edema. Will repeat labs tomorrow and include a CMP to re-evaluate his liver enzymes. Although his WBC count has been trending down, I will also start him on broad-spectrum IV antibiotics to cover for cholecystitis/cholangitis given his persistent pain/fever/leukocytosis. Plavix has been continued since his admission. He received a dose this morning. Will hold his Plavix now, which ideally is held for 5 days prior to a cholecystectomy. -->Plan for torrie tube placement tomorrow, surg started ceftriaxone and flagyl today 10/05: HIDA scan and cholecystectomy tube placement today. Low fat diet started after procedure. Will continue to monitor tube and daily AM labs. 10/06: Pt looking a lot better since tube placement yesterday. Pt reporting some pain in his RLQ and tube insertion site but per pt his morphine home dose has been taking care of the pain. -Per surg note today: Cholecystostomy tube placed yesterday. Having pain at drain site. Cholecystostomy tube will alleviate acute cholecystitis. Will not help if patient has cholangitis. Although the bile ducts are dilated, liver function tests are normal. Cholangitis seems unlikely. Bacteremia: Receiving appropriate antibiotics with vancomycin and cefepime. Pending susceptibility testing on the Enterococcus 10/07: Per surg: Relieved with placement cholecystostomy tube. Abdomen benign and no further abdominal pain. No longer plan to proceed with cholecystectomy this week. Patient to ill with sepsis and bacteremia as well as acute on chronic renal failure. Will resume Plavix today. -Pt denies pain to his abd or torrie tube site. 10/08: -Slight WBC increase overnight, 10.4-->12.1 -Per surg rounds: Relieved with placement cholecystostomy tube. Abdomen benign and no further abdominal pain. No longer plan to proceed with cholecystectomy this week. Patient too ill with sepsis and bacteremia as well as acute on chronic renal failure. Plavix resumed. -Switched abx yesterday from vanc ampicillin and gentamicin based on susceptibilities of the Enterococcus per pharm 10/09: -Slight WBC increase overnight again, surg aware. Continue IV abx. Continue to monitor torrie tube, labs, VS. 10/10: -WBC 12.6, Ampicillin 2 gram IVPB q 8, Ceftriaxone 2 gram IVPB daily, and Metronidazole 500 mg PO q 8. Continue to monitor torrie tube, labs, VS. PT/OT. Surgery following, appreciate recommendations. (5) Type 2 diabetes mellitus with hyperglycemia, without long-term current use of insulin: Code(s): E11.65 - Type 2 diabetes mellitus with hyperglycemia Status: Chronic Assessment and Plan: Hold Actos -Moderate dose sliding scale insulin with Accu-Cheks a.c. HS and hypoglycemia protocol. -Glucose has been stable during stay (6) Chronic pain: Qualifiers: Chronic pain type: chronic pain syndrome Qualified Code(s): G89.4 - Chronic pain syndrome Code(s): G89.29 - Other chronic pain Status: Acute Assessment and Plan: Will resume patient's home morphine 15 mg Q 8 hours p.r.n. pain 7-10. (7) Abdominal aortic aneurysm (AAA) 3.0 cm to 5.5 cm in diameter in male: Code(s): I71.40 - Abdominal aortic aneurysm, without rupture, unspecified Status: Acute Assessment and Plan: Likely chronic will defer follow-up to patient's primary care provider for serial imaging (8) Antiplatelet or antithrombotic long-term use: Code(s): Z79.02 - senior living (current) use of antithrombotics/antiplatelets Status: Acute Assessment and Plan: Pt with hx of pacemaker and plavix long-term use. Per surg: Plavix has been continued since his admission. He received a dose this morning. Will hold his Plavix now, which ideally is held for 5 days prior to a cholecystectomy. 10/07: Per surg: No longer plan to proceed with cholecystectomy this week. Patient to ill with sepsis and bacteremia as well as acute on chronic renal failure. Will resume Plavix today. -Plan for outpatient lap torrie potentially, surg to continue to follow. (9) Bacteremia: Code(s): R78.81 - Bacteremia Status: Acute Assessment and Plan: 10/05: Both blood cultures resulted today with Gram + cocci in chains -->Spoke with ID pharm, reports could be either strep strain (covered by Ceftriaxone) or Entero strain (covered by Vanc) --->Will start vanc today to treat if ends up being entero strain to get ahead of the infection, will f/u tomorrow for final reads -Pt on Ceftriaxone 2g already via surg for low grade fevers and leukocytosis, will continue. -Ordered echo 10/05 to r/o endocarditis -Also repeat order for BC placed today 10/06: X1 BC final result yielding enterococcus faecalis, will continue with vanc, pending second final BC result -Will continue to trend BCs 10/07: After a slight bump, WBC continues to downtrend slightly, will continue to monitor. Per surg today: Spoke with pharmacist. Will change to ampicillin and gentamicin based on susceptibilities of the Enterococcus -->Gallbladder wound culture prelim resulted today for Enterococcus, continue ampicillin and gentamicin -Will continue to trend BCs, new draw tomorrow AM scheduled 10/08: -Slight WBC increase overnight, 10.4-->12.1 -Per surg: Continue ampicillin and gentamicin based on susceptibilities of the Enterococcus. -Switched abx yesterday from vanc ampicillin and gentamicin based on susceptibilities of the Enterococcus per pharm -Will continue to monitor daily labs 10/09: -Very slight, surg aware. Continue IV abx. Continue to monitor torrie tube, labs, VS. 10/10: -WBC 12.6, Ampicillin 2 gram IVPB q 8, Ceftriaxone 2 gram IVPB daily, and Metronidazole 500 mg PO q 8. Continue to monitor torrie tube, labs, VS. 10/11: WBC 12.5. Ampicillin 2 gram IVPB q 8, Ceftriaxone 2 gram IVPB daily, and Metronidazole 500 mg PO q 8. Continue to monitor torrie tube, labs, VS. (10) Hyponatremia: Code(s): E87.1 - Hypo-osmolality and hyponatremia Status: Acute Assessment and Plan: Levels have been low since admission despite IVF NS. -Sodium chl tablets started 10/06 to normalize -Will continue to trend pt status and daily labs 10/07: Na 134 10/08: Na 135 10/09: Na 134 10/10: Na 134. 10/11: Na+ 131. Receiving Sodium chloride 500 mg PO BID. (11) Elevated brain natriuretic peptide (BNP) level: Code(s): R79.89 - Other specified abnormal findings of blood chemistry Status: Acute Assessment and Plan: * BNP 9700. * Lasix 40 mg ivp x 1 given. Will check labs before giving further dose due to elevated creatinine. * Echocardiogram. Plan Torrie tube placement 10/05, continue to monitor pt with labs, VS, and pain c ontrol. Surg started IV abx 10/04. Surg restarted Plavix 10/07 due to pt being too sick for lap torrie during this admission. Per surg, per pharm, abx changed for wound culture +enterococcus coverage. Obtained new BC 10/08, pending clear BC. Subjective Date/time seen: 10/11/24 10:38 Interval history: Patient sitting up in chair. Patient reports feeling like something is in the back of his throat. Patient denies chest pain, palpitations, headache, dizziness, nausea, or vomiting. Review of Systems Review of Systems: All systems reviewed & are unremarkable except as noted in HPI and below Exam Const: General: comfortable and no acute distress Resp: Effort & Inspection: normal respiratory effort Auscultation: clear to auscultation bilaterally Cardio: Rate: regular rate Rhythm: regular rhythm GI: GI Palp: Yes Soft to palpation Auscultation: normal bowel sounds Other: Torrie tube with bile colored drainage, small amount. Neuro: Speech: normal speech Extrem: General: pedal edema bilaterally 2+ Psych: Mental Status: mental status grossly normal Affect: normal affect Objective Data Vital Signs Vital Signs: Vital Signs - 24 hr 10/10/24 14:00 10/10/24 20:00 10/10/24 20:15 Temperature 97.7 F 98.5 F Pulse Rate 68 83 Respiratory Rate 18 16 Blood Pressure 141/57 H 146/52 H Pulse Oximetry 98 99 Oxygen Delivery Room Air Fraction of Inspired Oxygen 10/10/24 21:26 10/11/24 05:42 10/11/24 08:00 Temperature 99.0 F Pulse Rate 76 85 85 Respiratory Rate 20 16 16 Blood Pressure 154/65 H Pulse Oximetry 94 98 98 Oxygen Delivery Room Air Room Air Fraction of Inspired Oxygen 21 21 Intake/Output Intake/Output: Intake & Output 10/08/24 10/09/24 10/10/24 10/11/24 23:59 23:59 23:59 23:59 Intake Total 1480 1090 1492 340 Output Total 1630 1030 1380 680 Balance -150 60 112 -340 Meds/Results Medications: Active Medications Generic Name Dose Route Start Last Admin Trade Name Freq PRN Reason Stop Dose Admin Acetaminophen 650 mg 09/30/24 19:02 10/06/24 13:40 Acetaminophen 325 Mg Tablet PO 650 mg Q4H PRN Administration Mild Pain (1-3) or Fever Albuterol 2 puff 10/03/24 15:40 10/04/24 09:06 Albuterol Sulfate (*Sp) Aerosol 1 Puff INHALATION 2 puff Q6HRT PRN Administration Shortness Of Breath Or Wheezing Clopidogrel Bisulfate 75 mg 10/01/24 09:00 10/11/24 08:01 Clopidogrel Bisulfate 75 Mg Tablet PO 75 mg DAILY VU Administration Dextrose 12.5 gm 09/30/24 20:29 Dextrose 50% 25 Gm/50 Ml Syringe IV PUSH PRN PRN Hypoglycemia Protocol Docusate Sodium 100 mg 10/01/24 09:00 10/11/24 08:01 Docusate Sodium 100 Mg Capsule PO 100 mg DAILY VU Administration Ezetimibe 10 mg 10/01/24 09:00 10/11/24 08:00 Ezetimibe 10 Mg Tablet PO 10 mg DAILY VU Administration Famotidine 20 mg 09/30/24 21:00 10/11/24 08:01 Famotidine 20 Mg Tablet PO 20 mg Q12HR VU Administration Finasteride 5 mg 10/01/24 09:00 10/11/24 08:01 Finasteride 5 Mg Tablet PO 5 mg DAILY VU Administration Fluticasone Propionate 2 spray 09/30/24 20:28 10/11/24 08:00 Fluticasone Propionate 0.05% Na Spr 16 Gm Btl (*Bkc) NASAL 2 spray DAILY PRN Administration allergy symptoms Furosemide 40 mg 10/09/24 09:00 10/09/24 17:25 Furosemide 40 Mg Tablet PO 40 mg BID VU Administration Glucagon 1 mg 09/30/24 20:29 Glucagon For Inj 1 Mg Vial IM PRN PRN Hypoglycemia Protocol Glucose 15 gm 09/30/24 20:29 Glucose Oral Gel 15 Gm Of Glucse In 37.5 Gm Tube PO PRN PRN Hypoglycemia Protocol Heparin Sodium (Porcine) 5,000 units 09/30/24 21:00 10/11/24 08:05 Heparin Sodium 5,000 Units/Ml Vial SUB-Q 5,000 units Q12HR VU Administration Dextrose 1,000 mls @ 100 mls/hr 09/30/24 20:29 Dextrose 5% 1,000 Ml IVPB PRN PRN Hypoglycemia Protocol Ampicillin Sodium 2 gm in 100 mls @ 200 mls/hr 10/07/24 10:00 10/11/24 02:32 Ampicillin 2 Gm/Ns 100 Ml IVPB Infused Q8H VU Infusion Ceftriaxone Sodium 2 gm in 100 mls @ 200 mls/hr 10/08/24 14:00 10/10/24 14:26 Rocephin 2 Gm/Ns 100 Ml IVPB Infused Q24H VU Infusion Insulin Aspart 1 - 3 units 09/30/24 21:00 10/10/24 21:44 Insulin Aspart (*Bkc) 100 Units/Ml SUB-Q Not Given HS [facility] Protocol Insulin Aspart 3 - 6 units 10/01/24 08:00 10/11/24 08:06 Insulin Aspart (*Bkc) 100 Units/Ml SUB-Q Not Given TIDWM [facility] Protocol Metronidazole 500 mg 10/08/24 14:00 10/11/24 05:20 Metronidazole 500 Mg Tablet PO 500 mg Q8HR VU Administration Miscellaneous Information 1 each 10/10/24 00:01 Please Renew Morphine_. Per [employer] Procedure, It Will Discontinue If Not Renewed XX 11/09/24 00:00 CLARIFY VU Morphine Sulfate 15 mg 09/30/24 20:28 10/11/24 05:20 Morphine Sulfate (*Crx) 15 Mg Tab Ir PO 15 mg Q8H PRN Administration pain 7-10 Morphine Sulfate 15 mg 10/07/24 09:53 10/11/24 08:18 Morphine Sulfate (*Crx) 15 Mg Tab Ir PO 15 mg Q4H PRN Administration Pain Rated 7-10 Ondansetron HCl 4 mg 09/30/24 19:02 10/02/24 18:18 Ondansetron Inj 4 Mg/2 Ml Vial IV PUSH 4 mg Q4H PRN Administration Nausea Pantoprazole Sodium 40 mg 10/07/24 09:00 10/11/24 08:01 Pantoprazole 40 Mg Tablet PO 40 mg QAM VU Administration Polyethylene Glycol 17 gm 10/10/24 13:40 10/11/24 08:01 Polyethylene Glycol 3350 17 Gm Powd.Pack PO 17 gm QAM VU Administration Sodium Chloride 500 mg 10/06/24 17:00 10/11/24 08:00 Sodium Chloride 500 Mg Tablet PO 500 mg BID VU Administration Verapamil HCl 120 mg 09/30/24 21:00 10/11/24 08:01 Verapamil Hcl 120 Mg Tablet Immed Release PO 120 mg Q12HR VU Administration Radiology Results: ITS Impressions Abdomen/Pelvis CT 09/30/24 19:00 IMPRESSION: Gallbladder hydrops without inflammatory change. Dilated common bile duct, measuring 14 mm. No obstructing stone or mass detected. Correlate with biliary labs. 3.4 cm fusiform infrarenal abdominal aortic aneurysm. Consider follow-up in 3 years. Upper Quadrant Ultrasound 10/01/24 08:43 IMPRESSION: 1. Cholelithiasis with a normal-appearing gallbladder but with mild intra and extrahepatic biliary ductal dilation which raises concern for a nonvisualized distal obstructing choledocholithiasis. Correlate with liver function tests and if clinically indicated could consider further evaluation with either MRCP or ERCP. Hepatobiliary Scan Nuclear Medicine 10/05/24 08:35 IMPRESSION: 1. No evident gallbladder activity consistent with acute cholecystitis. Cholecystostomy 10/05/24 16:57 IMPRESSION: 1. Successful ultrasound-guided cholecystostomy tube placement. 2. 35 mL bile was sent for aerobic, anaerobic, and fungal cultures. 3. The catheter will be managed by Dr. Brennan. Chest X-Ray 10/10/24 06:58 Impression: Clear lungs. Status post aortic valve replacement, with pacemaker device. Labs Labs: Laboratory Results - last 24 hr 10/10/24 10/10/24 10/10/24 11:36 17:03 19:36 WBC RBC Hgb Hct MCV MCH MCHC RDW Plt Count MPV Sodium Potassium Chloride Carbon Dioxide Anion Gap BUN Creatinine Estim Creat Clear Calc Estimated GFR Glucose POC Capillary Glucose 171 H 141 H 182 H Calcium Total Bilirubin AST ALT Alkaline Phosphatase Total Protein Albumin 10/11/24 10/11/24 05:10 08:04 WBC 12.5 H RBC 3.06 L Hgb 9.1 L Hct 28.0 L MCV 91.5 MCH 29.7 MCHC 32.5 RDW 15.1 H Plt Count 400 H MPV 9.7 Sodium 131 L Potassium 4.2 Chloride 100 Carbon Dioxide 23 Anion Gap 8 BUN 55 H Creatinine 3.02 H Estim Creat Clear Calc 19 Estimated GFR 20 L Glucose 124 H POC Capillary Glucose 126 H Calcium 8.5 Total Bilirubin 0.8 AST 36 ALT 23 Alkaline Phosphatase 109 Total Protein 6.2 L Albumin 2.9 L Quality VTE Prophylaxis VTE prophylaxis: pharmacologic ordered (Heparin 5000 units subQ q.12 hours.)
[2024-10-11 11:05] LABS: NT Pro B Type Natriuretic Pept 9700 pg/mL (19.9-100)
[2024-10-11] MEDS: FUROSEMIDE INJ 40 MG/4 ML VIAL IV PUSH (12:22)
--- NOTE | 2024-10-11 12:24 | PM.PNGS ---
Progress Note: A&P Assessment and Plan (1) Cholelithiasis with acute cholecystitis without biliary obstruction: Qualifiers: Cholelithiasis location: gallbladder Qualified Code(s): K80.00 - Calculus of gallbladder with acute cholecystitis without obstruction Code(s): K80.00 - Calculus of gallbladder with acute cholecystitis without obstruction Status: Acute Assessment and Plan: Relieved with placement cholecystostomy tube. Abdomen benign and no further abdominal pain. (2) Enterococcal bacteremia: Code(s): R78.81 - Bacteremia; B95.2 - Enterococcus as the cause of diseases classified elsewhere Status: Acute Assessment and Plan: Continue ampicillin, ceftriaxone, and flagyl based on susceptibilities of the Enterococcus. (3) Antiplatelet or antithrombotic long-term use: Code(s): Z79.02 - intermediate (current) use of antithrombotics/antiplatelets Status: Acute Assessment and Plan: No longer plan to proceed with cholecystectomy this week. Patient too ill with sepsis and bacteremia as well as acute on chronic renal failure. Plavix resumed. When patient is discharged, he will likely go home with cholecystostomy tube in place. (4) Pacemaker: Code(s): Z95.0 - Presence of cardiac pacemaker Status: Acute Assessment and Plan: Cannot have MRCP with pacemaker in place. 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 GFR 20. 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 No acute events overnight. VSS aside from a chronically elevated BP. WBC 12.5. Sunni tube draining appropriately. Liver enzymes normal. Exam GI: Inspection: distended, obesity, no visible herniation and other (Cholecystostomy tube draining bile appropriately) Auscultation: normal bowel sounds Rectal Exam: deferred Objective Data Vital Signs Vital Signs: Vital Signs - 24 hr 10/10/24 14:00 10/10/24 20:00 10/10/24 20:15 Temperature 97.7 F 98.5 F Pulse Rate 68 83 Respiratory Rate 18 16 Blood Pressure 141/57 H 146/52 H Pulse Oximetry 98 99 Oxygen Delivery Room Air Fraction of Inspired Oxygen 10/10/24 21:26 10/11/24 05:42 10/11/24 08:00 Temperature 99.0 F Pulse Rate 76 85 85 Respiratory Rate 20 16 16 Blood Pressure 154/65 H Pulse Oximetry 94 98 98 Oxygen Delivery Room Air Room Air Fraction of Inspired Oxygen 21 21 Intake/Output Intake/Output: Intake & Output 10/08/24 10/09/24 10/10/24 10/11/24 23:59 23:59 23:59 23:59 Intake Total 1480 1090 1492 340 Output Total 1630 1030 1380 680 Balance -150 60 112 -340 Meds/Results Medications: Active Medications Generic Name Dose Route Start Last Admin Trade Name Freq PRN Reason Stop Dose Admin Acetaminophen 650 mg 09/30/24 19:02 10/06/24 13:40 Acetaminophen 325 Mg Tablet PO 650 mg Q4H PRN Administration Mild Pain (1-3) or Fever Albuterol 2 puff 10/03/24 15:40 10/04/24 09:06 Albuterol Sulfate (*Sp) Aerosol 1 Puff INHALATION 2 puff Q6HRT PRN Administration Shortness Of Breath Or Wheezing Clopidogrel Bisulfate 75 mg 10/01/24 09:00 10/11/24 08:01 Clopidogrel Bisulfate 75 Mg Tablet PO 75 mg DAILY VU Administration Dextrose 12.5 gm 09/30/24 20:29 Dextrose 50% 25 Gm/50 Ml Syringe IV PUSH PRN PRN Hypoglycemia Protocol Docusate Sodium 100 mg 10/01/24 09:00 10/11/24 08:01 Docusate Sodium 100 Mg Capsule PO 100 mg DAILY VU Administration Ezetimibe 10 mg 10/01/24 09:00 10/11/24 08:00 Ezetimibe 10 Mg Tablet PO 10 mg DAILY VU Administration Famotidine 20 mg 09/30/24 21:00 10/11/24 08:01 Famotidine 20 Mg Tablet PO 20 mg Q12HR VU Administration Finasteride 5 mg 10/01/24 09:00 10/11/24 08:01 Finasteride 5 Mg Tablet PO 5 mg DAILY VU Administration Fluticasone Propionate 2 spray 09/30/24 20:28 10/11/24 08:00 Fluticasone Propionate 0.05% Na Spr 16 Gm Btl (*Bkc) NASAL 2 spray DAILY PRN Administration allergy symptoms Furosemide 40 mg 10/09/24 09:00 10/09/24 17:25 Furosemide 40 Mg Tablet PO 40 mg BID UV Administration Glucagon 1 mg 09/30/24 20:29 Glucagon For Inj 1 Mg Vial IM PRN PRN Hypoglycemia Protocol Glucose 15 gm 09/30/24 20:29 Glucose Oral Gel 15 Gm Of Glucse In 37.5 Gm Tube PO PRN PRN Hypoglycemia Protocol Guaifenesin 600 mg 10/11/24 21:00 Guaifenesin 12 Hr 600 Mg Tabcr PO 10/18/24 20:59 Q12HR VU Heparin Sodium (Porcine) 5,000 units 09/30/24 21:00 10/11/24 08:05 Heparin Sodium 5,000 Units/Ml Vial SUB-Q 5,000 units Q12HR VU Administration Dextrose 1,000 mls @ 100 mls/hr 09/30/24 20:29 Dextrose 5% 1,000 Ml IVPB PRN PRN Hypoglycemia Protocol Ampicillin Sodium 2 gm in 100 mls @ 200 mls/hr 10/07/24 10:00 10/11/24 10:50 Ampicillin 2 Gm/Ns 100 Ml IVPB 200 mls/hr Q8H VU Administration Ceftriaxone Sodium 2 gm in 100 mls @ 200 mls/hr 10/08/24 14:00 10/10/24 14:26 Rocephin 2 Gm/Ns 100 Ml IVPB Infused Q24H VU Infusion Insulin Aspart 1 - 3 units 09/30/24 21:00 10/10/24 21:44 Insulin Aspart (*Bkc) 100 Units/Ml SUB-Q Not Given HS VU Protocol Insulin Aspart 3 - 6 units 10/01/24 08:00 10/11/24 08:06 Insulin Aspart (*Bkc) 100 Units/Ml SUB-Q Not Given TIDWM [facility] Protocol Metronidazole 500 mg 10/08/24 14:00 10/11/24 05:20 Metronidazole 500 Mg Tablet PO 500 mg Q8HR VU Administration Miscellaneous Information 1 each 10/10/24 00:01 Please Renew Morphine_. Per [employer] Procedure, It Will Discontinue If Not Renewed XX 11/09/24 00:00 CLARIFY VU Morphine Sulfate 15 mg 09/30/24 20:28 10/11/24 05:20 Morphine Sulfate (*Crx) 15 Mg Tab Ir PO 15 mg Q8H PRN Administration pain 7-10 Morphine Sulfate 15 mg 10/07/24 09:53 10/11/24 08:18 Morphine Sulfate (*Crx) 15 Mg Tab Ir PO 15 mg Q4H PRN Administration Pain Rated 7-10 Ondansetron HCl 4 mg 09/30/24 19:02 10/02/24 18:18 Ondansetron Inj 4 Mg/2 Ml Vial IV PUSH 4 mg Q4H PRN Administration Nausea Pantoprazole Sodium 40 mg 10/07/24 09:00 10/11/24 08:01 Pantoprazole 40 Mg Tablet PO 40 mg QAM VU Administration Polyethylene Glycol 17 gm 10/10/24 13:40 10/11/24 08:01 Polyethylene Glycol 3350 17 Gm Powd.Pack PO 17 gm QAM VU Administration Saccharomyces Boulardii 250 mg 10/11/24 17:00 Saccharomyces Boulardii 250 Mg Capsule PO BID VU Sodium Chloride 500 mg 10/06/24 17:00 10/11/24 08:00 Sodium Chloride 500 Mg Tablet PO 500 mg BID VU Administration Verapamil HCl 120 mg 09/30/24 21:00 10/11/24 08:01 Verapamil Hcl 120 Mg Tablet Immed Release PO 120 mg Q12HR VU Administration Radiology Results: ITS Impressions Abdomen/Pelvis CT 09/30/24 19:00 IMPRESSION: Gallbladder hydrops without inflammatory change. Dilated common bile duct, measuring 14 mm. No obstructing stone or mass detected. Correlate with biliary labs. 3.4 cm fusiform infrarenal abdominal aortic aneurysm. Consider follow-up in 3 years. Upper Quadrant Ultrasound 10/01/24 08:43 IMPRESSION: 1. Cholelithiasis with a normal-appearing gallbladder but with mild intra and extrahepatic biliary ductal dilation which raises concern for a nonvisualized distal obstructing choledocholithiasis. Correlate with liver function tests and if clinically indicated could consider further evaluation with either MRCP or ERCP. Hepatobiliary Scan Nuclear Medicine 10/05/24 08:35 IMPRESSION: 1. No evident gallbladder activity consistent with acute cholecystitis. Cholecystostomy 10/05/24 16:57 IMPRESSION: 1. Successful ultrasound-guided cholecystostomy tube placement. 2. 35 mL bile was sent for aerobic, anaerobic, and fungal cultures. 3. The catheter will be managed by Dr. Brennan. Chest X-Ray 10/10/24 06:58 Impression: Clear lungs. Status post aortic valve replacement, with pacemaker device. Labs Labs: Laboratory Results - last 24 hr 10/10/24 10/10/24 10/11/24 17:03 19:36 05:10 WBC 12.5 H RBC 3.06 L Hgb 9.1 L Hct 28.0 L MCV 91.5 MCH 29.7 MCHC 32.5 RDW 15.1 H Plt Count 400 H MPV 9.7 Sodium 131 L Potassium 4.2 Chloride 100 Carbon Dioxide 23 Anion Gap 8 BUN 55 H Creatinine 3.02 H Estim Creat Clear Calc 19 Estimated GFR 20 L Glucose 124 H POC Capillary Glucose 141 H 182 H Calcium 8.5 Total Bilirubin 0.8 AST 36 ALT 23 Alkaline Phosphatase 109 NT-Pro-B Natriuret Pep 9700 H Total Protein 6.2 L Albumin 2.9 L 10/11/24 08:04 WBC RBC Hgb Hct MCV MCH MCHC RDW Plt Count MPV Sodium Potassium Chloride Carbon Dioxide Anion Gap BUN Creatinine Estim Creat Clear Calc Estimated GFR Glucose POC Capillary Glucose 126 H Calcium Total Bilirubin AST ALT Alkaline Phosphatase NT-Pro-B Natriuret Pep Total Protein Albumin
--- NOTE | 2024-10-11 13:18 | P.PNNP_ITS ---
Progress Note: A&P Assessment and Plan (1) Acute kidney injury: Code(s): N17.9 - Acute kidney failure, unspecified Status: Acute Assessment and Plan: * improvement noted if not relatively stable * as noted on admission * complicated by significant azotemia/elevated BUN * mild improvement in creatinine but BUN still elevated by repeat labs * holding diuretics and s/p trial of IVFs * follow respiratory status closely given history of CHF * recent CXR noted clear lungs so hold diuretics for now * evaluation to date noted: * admission CT of A/P with no suspicious mass, obstructing stone, or hydronephrosis * prerenal urine electrolytes (by FeUrea) * urine eosinophils negative * mild proteinuria * normal/low CPK * UA without evidence of infection * suspect multifactorial etiology: * prerenal factors * overdiuresis * infection (bacteremia + cholecystitis) * other(?) * follow trend of repeat labs and UOP (2) Stage 4 chronic kidney disease: Code(s): N18.4 - Chronic kidney disease, stage 4 (severe) Status: Chronic Assessment and Plan: * slow and progressive decline noted * GFR ~ 22 to 23 in 2020/2021 * GFR ~ 20 to 21 in 2022/2023 * GFR ~ 18 by July 2024 labs * creatinine has been running anywhere from 2.4 - 3.2mg/dl in the last 6 months * creatinine on 09/27/24 (outpatient labs) = 3.93mg/dl (GFR 15) -- but this may have related to his acute medical issues currently * most likely due to diabetes and hypertension + chronic diuretic therapy (3) Azotemia: Code(s): R79.89 - Other specified abnormal findings of blood chemistry Status: Acute Assessment and Plan: * slow improvement noted * noted on admission * suspected related to diuretic therapy * however, underlying infection (see #4) likely a contributing factor as well... * no evidence of GI bleed * no other culprit medications * follow trend of BUN (4) Bacteremia: Code(s): R78.81 - Bacteremia Status: Acute Assessment and Plan: * blood culture results noted: * 10/04 blood cultures - Enterococcus faecalis * 10/05 blood cultures - Enterococcus faecalis * presumed source = gallbladder * gallbladder/bile culture - Enterococcus faecalis * on antibiotics * follow repeat blood cultures (5) Gallbladder hydrops: Code(s): K82.1 - Hydrops of gallbladder Status: Acute Assessment and Plan: * CT of A/P without overt acute cholecystitis * however, does have significant right upper quadrant pain on palpation with nausea and decreased oral intake * RUQ ultrasound results noted as well * LFTs normal * GI recommendations noted * Surgery following * s/p cholecystostomy tube placement (on 10/05) * will eventually need cholecystectomy * continue supportive therapy (6) Anemia: Code(s): D64.9 - Anemia, unspecified Status: Acute Assessment and Plan: * due to combo of LEROY, CKD, acute illness/infection and possibly previous IVFs * no need for SANKET at this time * follow trend of H/H (7) Hypertension: Code(s): I10 - Essential (primary) hypertension Status: Chronic Assessment and Plan: * reasonable control * follow trend of hemodynamics (8) Type 2 diabetes mellitus with hyperglycemia, without long-term current use of insulin: Code(s): E11.65 - Type 2 diabetes mellitus with hyperglycemia Status: Chronic Assessment and Plan: * follow accu-cheks * glycemic control per hospitalist Will continue to follow. L Subjective Date/time seen: 10/11/24 13:18 Interval history: Follow-up for acute kidney injury/acute renal failure on chronic kidney disease. Renal function/creatinine rising again but now having issues with worsening swelling/edema -- restarted on diuretic therapy; otherwise appears to be doing reasonably well; no other events overnight or earlier this morning; no acute complaints to report at the time of my visit. Exam 2 Narrative: General: elderly but WD/WN male in NAD Heart: normal S1 and S2; no rub Lungs: clear anteriorly Abdomen: soft, nontender, nondistended, positive bowel sounds Extremities: no cyanosis or clubbing; trace - 1+ edema Skin: warm and intact Objective Data Vital Signs Vital Signs: Vital Signs Temp Pulse Resp BP Pulse Ox O2 Del Method FiO2 10/11/24 13:00 99.1 F 85 18 149/64 H 98 10/11/24 08:00 85 16 98 Room Air 21 10/11/24 05:42 99.0 F 85 16 154/65 H 98 10/10/24 21:26 76 20 94 Room Air 21 10/10/24 20:15 98.5 F 83 16 146/52 H 99 10/10/24 20:00 Room Air Intake/Output Intake/Output: Intake & Output 10/08/24 10/09/24 10/10/24 10/11/24 23:59 23:59 23:59 23:59 Intake Total 1480 1090 1492 1240 Output Total 1630 1030 1380 880 Balance -150 60 112 360 Meds/Results Medications: Active Medications Generic Name Dose Route Start Last Admin Trade Name Freq PRN Reason Stop Dose Admin Acetaminophen 650 mg 09/30/24 19:02 10/06/24 13:40 Acetaminophen 325 Mg Tablet PO 650 mg Q4H PRN Administration Mild Pain (1-3) or Fever Albuterol 2 puff 10/03/24 15:40 10/04/24 09:06 Albuterol Sulfate (*Sp) Aerosol 1 Puff INHALATION 2 puff Q6HRT PRN Administration Shortness Of Breath Or Wheezing Clopidogrel Bisulfate 75 mg 10/01/24 09:00 10/11/24 08:01 Clopidogrel Bisulfate 75 Mg Tablet PO 75 mg DAILY VU Administration Dextrose 12.5 gm 09/30/24 20:29 Dextrose 50% 25 Gm/50 Ml Syringe IV PUSH PRN PRN Hypoglycemia Protocol Docusate Sodium 100 mg 10/01/24 09:00 10/11/24 08:01 Docusate Sodium 100 Mg Capsule PO 100 mg DAILY VU Administration Ezetimibe 10 mg 10/01/24 09:00 10/11/24 08:00 Ezetimibe 10 Mg Tablet PO 10 mg DAILY VU Administration Famotidine 20 mg 09/30/24 21:00 10/11/24 08:01 Famotidine 20 Mg Tablet PO 20 mg Q12HR VU Administration Finasteride 5 mg 10/01/24 09:00 10/11/24 08:01 Finasteride 5 Mg Tablet PO 5 mg DAILY VU Administration Fluticasone Propionate 2 spray 09/30/24 20:28 10/11/24 08:00 Fluticasone Propionate 0.05% Na Spr 16 Gm Btl (*Bkc) NASAL 2 spray DAILY PRN Administration allergy symptoms Furosemide 40 mg 10/09/24 09:00 10/09/24 17:25 Furosemide 40 Mg Tablet PO 40 mg BID VU Administration Glucagon 1 mg 09/30/24 20:29 Glucagon For Inj 1 Mg Vial IM PRN PRN Hypoglycemia Protocol Glucose 15 gm 09/30/24 20:29 Glucose Oral Gel 15 Gm Of Glucse In 37.5 Gm Tube PO PRN PRN Hypoglycemia Protocol Guaifenesin 600 mg 10/11/24 21:00 Guaifenesin 12 Hr 600 Mg Tabcr PO 10/18/24 20:59 Q12HR [facility] Heparin Sodium (Porcine) 5,000 units 09/30/24 21:00 10/11/24 08:05 Heparin Sodium 5,000 Units/Ml Vial SUB-Q 5,000 units Q12HR VU Administration Dextrose 1,000 mls @ 100 mls/hr 09/30/24 20:29 Dextrose 5% 1,000 Ml IVPB PRN PRN Hypoglycemia Protocol Ampicillin Sodium 2 gm in 100 mls @ 200 mls/hr 10/07/24 10:00 10/11/24 18:01 Ampicillin 2 Gm/Ns 100 Ml IVPB Infused Q8H UV Infusion Ceftriaxone Sodium 2 gm in 100 mls @ 200 mls/hr 10/08/24 14:00 10/11/24 14:00 Rocephin 2 Gm/Ns 100 Ml IVPB Infused Q24H VU Infusion Insulin Aspart 1 - 3 units 09/30/24 21:00 10/10/24 21:44 Insulin Aspart (*Bkc) 100 Units/Ml SUB-Q Not Given HS [facility] Protocol Insulin Aspart 3 - 6 units 10/01/24 08:00 10/11/24 17:02 Insulin Aspart (*Bkc) 100 Units/Ml SUB-Q Not Given TIDWM [facility] Protocol Metronidazole 500 mg 10/08/24 14:00 10/11/24 13:25 Metronidazole 500 Mg Tablet PO 500 mg Q8HR VU Administration Miscellaneous Information 1 each 10/10/24 00:01 Please Renew Morphine_. Per [employer] Procedure, It Will Discontinue If Not Renewed XX 11/09/24 00:00 CLARIFY VU Morphine Sulfate 15 mg 09/30/24 20:28 10/11/24 05:20 Morphine Sulfate (*Crx) 15 Mg Tab Ir PO 15 mg Q8H PRN Administration pain 7-10 Morphine Sulfate 15 mg 10/07/24 09:53 10/11/24 08:18 Morphine Sulfate (*Crx) 15 Mg Tab Ir PO 15 mg Q4H PRN Administration Pain Rated 7-10 Ondansetron HCl 4 mg 09/30/24 19:02 10/02/24 18:18 Ondansetron Inj 4 Mg/2 Ml Vial IV PUSH 4 mg Q4H PRN Administration Nausea Pantoprazole Sodium 40 mg 10/07/24 09:00 10/11/24 08:01 Pantoprazole 40 Mg Tablet PO 40 mg QAM VU Administration Perflutren Lipid Microsphere 0 ml 10/11/24 15:48 Perflutren Lipid Microspheres 1.5 Ml Vial Diluted To 10 Ml Total Volume IV PUSH 10/14/24 15:48 ONCE PRN adequate visualization Protocol Polyethylene Glycol 17 gm 10/10/24 13:40 10/11/24 08:01 Polyethylene Glycol 3350 17 Gm Powd.Pack PO 17 gm QAM VU Administration Saccharomyces Boulardii 250 mg 10/11/24 17:00 10/11/24 17:22 Saccharomyces Boulardii 250 Mg Capsule PO 250 mg BID VU Administration Sodium Chloride 500 mg 10/06/24 17:00 10/11/24 17:22 Sodium Chloride 500 Mg Tablet PO 500 mg BID VU Administration Verapamil HCl 120 mg 09/30/24 21:00 10/11/24 08:01 Verapamil Hcl 120 Mg Tablet Immed Release PO 120 mg Q12HR VU Administration Radiology Results: ITS Impressions Abdomen/Pelvis CT 09/30/24 19:00 IMPRESSION: Gallbladder hydrops without inflammatory change. Dilated common bile duct, measuring 14 mm. No obstructing stone or mass detected. Correlate with biliary labs. 3.4 cm fusiform infrarenal abdominal aortic aneurysm. Consider follow-up in 3 years. Upper Quadrant Ultrasound 10/01/24 08:43 IMPRESSION: 1. Cholelithiasis with a normal-appearing gallbladder but with mild intra and extrahepatic biliary ductal dilation which raises concern for a nonvisualized distal obstructing choledocholithiasis. Correlate with liver function tests and if clinically indicated could consider further evaluation with either MRCP or ERCP. Hepatobiliary Scan Nuclear Medicine 10/05/24 08:35 IMPRESSION: 1. No evident gallbladder activity consistent with acute cholecystitis. Cholecystostomy 10/05/24 16:57 IMPRESSION: 1. Successful ultrasound-guided cholecystostomy tube placement. 2. 35 mL bile was sent for aerobic, anaerobic, and fungal cultures. 3. The catheter will be managed by Dr. Brennan. Chest X-Ray 10/10/24 06:58 Impression: Clear lungs. Status post aortic valve replacement, with pacemaker device. Labs Labs: Laboratory Tests 10/11/24 05:10 10/11/24 05:10 Calcium 8.5 Total Bilirubin 0.8 AST 36 ALT 23 Alkaline Phosphatase 109 NT-Pro-B Natriuret Pep 9700 H Total Protein 6.2 L Albumin 2.9 L Microbiology 10/05/24 16:15 Gallbladder Anaerobic Culture - Final 10/05/24 16:15 Gallbladder Aerobic Culture - Final Enterococcus species
[2024-10-11] MEDS: INSULIN ASPART (*BKC) 100 UNITS/ML SUB-Q (13:24)
[2024-10-11] MEDS: cefTRIAXone 2 GM/NS 100 ML 2 GM/100 ML BAG IVPB (13:25)
[2024-10-11 14:00] VITALS: BP 149/64; PULSE 85; RESP 18; TEMP 37.3; O2SAT 98
--- NOTE | 2024-10-11 14:57 | PCSTNOTE ---
Please refer to the Bedside Swallow Evaluation in the EMR. Please note, silent aspiration cannot be ruled out at bedside. The above pleasant and cooperative pt was seen for a swallow evaluation at bedside. Upon entering the pt was leaned back with lunch tray in front of him. For testing, the pt was repositioned upright in a recliner to reduce risk of aspiration. He was alert & oriented and able to follow commands. He is currently on a regular diet and states that it feels like there something in the back of his throat but denies choking. Oral mucosa is normal; pt has good fitting upper & lower full dentures. Oral peripheral exam revealed lingual and labial structures to be normal. He was able to dry swallow on command and exhibited clear vocal quality. He was tested with pudding, fruit cocktail, cracker and thin liquids in controlled and uncontrolled amounts. The oral stages appeared WNL. No oral residue, leakage, or pocketing was noted. During the pharyngeal stage, swallow reflex appeared prompt & laryngeal elevation adequate. No overt s/s of aspiration were exhibited; however, silent aspiration cannot be ruled at bedside. General impression is normal swallow ability. Recommendation: Continue current diet. Notify ST if further difficulty develops. Thank you for this referral.
[2024-10-11] MEDS: SACCHAROMYCES BOULARDII 250 MG CAPSULE PO (17:22)
[2024-10-11 20:41] VITALS: PULSE 85; RESP 20; O2SAT 95
[2024-10-11] MEDS: guaiFENesin 12 HR 600 MG TABCR PO (21:04)
[2024-10-11 21:37] VITALS: BP 128/63; PULSE 85; RESP 14; TEMP 36.6; O2SAT 99
[2024-10-12] MEDS: AMPICILLIN 2 GM/NS 100 ML 2 GM/100 ML BAG IVPB ×3 (01:00→17:43)
[2024-10-12] MEDS: ACETAMINOPHEN 325 MG TABLET 650 MG PO (01:13)
[2024-10-12] MEDS: MORPHINE SULFATE (*CRX) 15 MG TAB IR PO ×4 (03:16→16:48)
[2024-10-12 05:05] VITALS: BP 141/85; PULSE 76; RESP 12; TEMP 36.7; O2SAT 96
[2024-10-12 05:38] LABS: Hematocrit 27.2 % (42.0-52.0); Hemoglobin 8.6 g/dL (14.0-18.0); Mean Corpuscular HGB Conc 31.6 g/dl (32-36); Mean Corpuscular Hemoglobin 29.0 pg (26-34); Mean Corpuscular Volume 91.6 fl (80-100); Platelet Count Result 448 k/mm3 (150-375); Red Blood Count 2.97 M/mm3 (4.6-6.20); White Blood Count 11.2 K/mm3 (4.5-10.0)
[2024-10-12 05:48] LABS: Alanine Aminotransferase 20 U/L (6-50); Albumin Level 2.7 g/dL (3.5-5.1); Alkaline Phosphatase 98 U/L (38-126); Anion Gap 9 mmol/L (4-12); Aspartate Amino Transferase 30 U/L (17-59); Bilirubin,Total 0.6 mg/dL (0.2-1.3); Blood Urea Nitrogen 53 mg/dL (9-20); Calcium 8.5 mg/dL (8.4-10.2); Carbon Dioxide 23 mmol/L (22-30); Chloride 100 mmol/L (98-107); Estimated CRCL calculation 19 ml/min; Estimated Glomerular Filt Rate 20; Glucose 108 mg/dL (65-110); Potassium 4.2 mmol/L (3.4-5.0); Sodium 132 mmol/L (137-145); Total Protein 6.0 g/dL (6.3-8.2)
[2024-10-12] MEDS: EZETIMIBE 10 MG TABLET PO (08:42)
[2024-10-12] MEDS: SACCHAROMYCES BOULARDII 250 MG CAPSULE PO ×2 (08:42→17:31)
[2024-10-12] MEDS: guaiFENesin 12 HR 600 MG TABCR PO ×2 (08:42→20:37)
[2024-10-12] MEDS: VERAPAMIL HCL 120 MG TABLET IMMED RELEASE PO ×2 (08:42→20:38)
[2024-10-12] MEDS: DOCUSATE SODIUM 100 MG CAPSULE PO (08:42)
[2024-10-12] MEDS: CLOPIDOGREL BISULFATE 75 MG TABLET PO (08:42)
[2024-10-12] MEDS: FINASTERIDE 5 MG TABLET PO (08:42)
[2024-10-12] MEDS: FAMOTIDINE 20 MG TABLET PO ×2 (08:42→20:37)
[2024-10-12] MEDS: PANTOPRAZOLE 40 MG TABLET PO (08:42)
[2024-10-12] MEDS: SODIUM CHLORIDE 500 MG TABLET PO ×2 (08:43→17:31)
[2024-10-12 08:55] LABS: Magnesium 2.0 mg/dL (1.6-2.3)
[2024-10-12 08:58] LABS: NT Pro B Type Natriuretic Pept 7310 pg/mL (19.9-100)
[2024-10-12] MEDS: FUROSEMIDE 40 MG TABLET PO ×2 (09:53→17:31)
--- NOTE | 2024-10-12 10:10 | P.PNIM_ITS ---
Progress Note: A&P Assessment and Plan (1) Chest pain: Qualifiers: Chest pain type: unspecified Qualified Code(s): R07.9 - Chest pain, unspecified Code(s): R07.9 - Chest pain, unspecified Status: Acute Assessment and Plan: -Chest pain seems atypical in nature, pt continue to deny CP. -Troponin are elevated but flat. Will complete troponin series. -Pain seems more consistent with GI cause with reported indigestion and significant right upper quadrant pain. -Will continue Antihypertensives and Plavix. -->HOLD Plavix starting 10/05 for eventual lap torrie per surg 10/07: Per surg: No longer plan to proceed with cholecystectomy this week. Patient to ill with sepsis and bacteremia as well as acute on chronic renal failure. Will resume Plavix today. Pt continues to deny CP/SOB or any other worrisome sx. (2) Acute kidney injury superimposed on CKD: Code(s): N17.9 - Acute kidney failure, unspecified; N18.9 - Chronic kidney disease, unspecified Status: Acute Assessment and Plan: Patient has chronic kidney disease stage 4 with acute kidney injury. Most likely prerenal due to intervascular volume depletion. - Hold Lasix and continue IV fluid hydration at 75ml/hr. - Nephrology was consulted from the ER. - Continue flomax 10/02- cr/bun 2.96/100 10/03: Cr/BUN: 3.26/91, pending neph rounds due to worsening Cr 10/04: Cr/BUN: 3.43/90, Started IVF again today, continue to hold lasix 10/05: Cr/BUN: 3.54/[address] Lopez today, he believes that once the torrie tube is placed and with IV abx on board, kidney labs should begin to normalize back to pt baseline which is CKD4. Will continue to monitor levels. Dr. Lopez on for the weekend. 10/06: Cr/BUN: 2.84/84, starting to trend down, will continue to monitor daily IVF D/C due to better trending kidneys, lasix still on hold (no pulm congestion), and adequate intake. 10/07: Kidney levels continuing to improve Cr/BUN: 2.33/27 -If continues to improve, will start Lasix back up tomorrow. at the bedside today concerned for his BLE edema, which has not worsened per my exam. Pt also denies CP/SOB. 10/08: Kidney levels continuing to improve Cr/BUN: 2.15/59 -Lasix restarted today 10/09 daily: Cr/BUN: 2.41/55 Per neph 10/08: * slow and progressive decline noted * GFR ~ 22 to 23 in * GFR ~ 20 to 21 in * GFR ~ 18 by July 2024 labs * creatinine has been running anywhere from 2.4 - 3.2mg/dl in the last 6 months * creatinine on 09/27/24 (outpatient labs) = 3.93mg/dl (GFR 15) -- but this may have related to his acute medical issues currently * most likely due to diabetes and hypertension + chronic diuretic therapy go to the 10/10: Cr/BUN: 2.84/57. Nephrology following, appreciate recommendations. 10/11: Cr/BUN 3.02/55. Nephrology following, appreciate recommendations. 10/12: Cr/BUN 2.99/53. Nephrology following, appreciate recommendations. (3) Acute uremia: Code(s): N19 - Unspecified kidney failure Status: Acute Assessment and Plan: Possibly due to hypovolemia. GI bleed is less likely given patient's hemoglobin is stable at 12 in ED and patient denies symptoms of hematemesis hematochezia or melena. Pt continues to deny any blood loss. -Will hold Lasix and continue IV fluid hydration and repeat CBC and electrolyte panel in a.m. -Decrease IV fluids to 50 ml and monitor I/O closely 10/03: -H/H as of 10/03: 9.630.5 -Pt appetite still decreased, continue IVF 50/hr 10/04: -H/H 9.830.5 -Started again on IVF to try to normalize creat, pt will be NPO at [facility] anyway for procedure tomorrow. 10/05: -H/H 9.931.3 -IVF down to 75 ml/hr for NPO status and to avoid pulm edema Spoke to Dr. Lopez today, he believes that once the torrie tube is placed and with IV abx on board, kidney labs should begin to normalize back to pt baseline which is CKD4. Will continue to monitor levels. Dr. Lopez on for the weekend. 10/06: -H/H 10.8/35.4 -IVF stopped today, appetite better 10/07: -H/H: 9.7/29.8 10/08: -H/H: 10.3/31.7 10/10: -H/H 9.1/28.4. 10/11: H&H 9.1/28.0. 10/12: H&H 8.6/27.2. (4) Gallbladder hydrops: Code(s): K82.1 - Hydrops of gallbladder Status: Acute Assessment and Plan: CT does not suggest overt acute cholecystitis but patient does have significant kit right upper quadrant pain on palpation and worsening of his nausea with palpation of right upper quadrant. -RUQ US for better visualization of the gallbladder: 1. Cholelithiasis with a normal-appearing gallbladder but with mild intra and extrahepatic biliary ductal dilation which raises concern for a nonvisualized distal obstructing choledocholithiasis. Correlate with liver function tests and if clinically indicated could consider further evaluation with either MRCP or ERCP. -->Consulted GI 10/03, pending recs/rounding -Bilirubin and transaminases are normal. -Patient does have some leukocytosis but no fever. -Will hold off on adding antibiotic coverage at this time and will repeat CBC in a.m. 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 His symptoms are likely related to his gallbadder and there is concern for choledocholithiasis given his common bile duct dilatation on imaging. Since his Plavix has been continued, he would not be a candidate for a laparoscopic cholecystectomy at this time. He received his last dose of Plavix this morning, which I have put on hold. Since he continues to have symptoms, we would recommend proceeding with percutaneous cholecystostomy tube placement to treat his cholecystitis. We will eventually consider proceeding with a laparoscopic cholecystectomy with intraoperative cholangiogram to evaluate for choledocholithiasis, but this will be at a later date, possibly as an outpatient depending on how he is progressing medically, when his Plavix can be held for an adequate amount of time. This would also allow time for improved medical optimization in regards to his renal failure and pulmonary edema. Will repeat labs tomorrow and include a CMP to re-evaluate his liver enzymes. Although his WBC count has been trending down, I will also start him on broad-spectrum IV antibiotics to cover for cholecystitis/cholangitis given his persistent pain/fever/leukocytosis. Plavix has been continued since his admission. He received a dose this morning. Will hold his Plavix now, which ideally is held for 5 days prior to a cholecystectomy. -->Plan for torrie tube placement tomorrow, surg started ceftriaxone and flagyl today 10/05: HIDA scan and cholecystectomy tube placement today. Low fat diet started after procedure. Will continue to monitor tube and daily AM labs. 10/06: Pt looking a lot better since tube placement yesterday. Pt reporting some pain in his RLQ and tube insertion site but per pt his morphine home dose has been taking care of the pain. -Per surg note today: Cholecystostomy tube placed yesterday. Having pain at drain site. Cholecystostomy tube will alleviate acute cholecystitis. Will not help if patient has cholangitis. Although the bile ducts are dilated, liver function tests are normal. Cholangitis seems unlikely. Bacteremia: Receiving appropriate antibiotics with vancomycin and cefepime. Pending susceptibility testing on the Enterococcus 10/07: Per surg: Relieved with placement cholecystostomy tube. Abdomen benign and no further abdominal pain. No longer plan to proceed with cholecystectomy this week. Patient to ill with sepsis and bacteremia as well as acute on chronic renal failure. Will resume Plavix today. -Pt denies pain to his abd or torrie tube site. 10/08: -Slight WBC increase overnight, 10.4-->12.1 -Per surg rounds: Relieved with placement cholecystostomy tube. Abdomen benign and no further abdominal pain. No longer plan to proceed with cholecystectomy this week. Patient too ill with sepsis and bacteremia as well as acute on chronic renal failure. Plavix resumed. -Switched abx yesterday from vanc ampicillin and gentamicin based on susceptibilities of the Enterococcus per pharm 10/09: -Slight WBC increase overnight again, surg aware. Continue IV abx. Continue to monitor torrie tube, labs, VS. 10/10: -WBC 12.6, Ampicillin 2 gram IVPB q 8, Ceftriaxone 2 gram IVPB daily, and Metronidazole 500 mg PO q 8. Continue to monitor torrie tube, labs, VS. PT/OT. Surgery following, appreciate recommendations. 10/12: -WBC 11.2, Ampicillin 2 gram IVPB q 8, Ceftriaxone 2 gram IVPB daily, and Metronidazole 500 mg PO q 8. Continue to monitor torrie tube, labs, VS. PT/OT. Surgery following, appreciate recommendations. Cholangiogram today showed: Cholelithiasis and choledocholithiasis obstructing distal choledocholithiasis with no observed contrast emptying into the duodenum. The cystic duct is patent. Consider ERCP for stone extraction and sphincterotomy to relieve the distal ductal obstruction. (5) Type 2 diabetes mellitus with hyperglycemia, without long-term current use of insulin: Code(s): E11.65 - Type 2 diabetes mellitus with hyperglycemia Status: Chronic Assessment and Plan: Hold Actos -Moderate dose sliding scale insulin with Accu-Cheks a.c. HS and hypoglycemia protocol. -Glucose has been stable during stay (6) Chronic pain: Qualifiers: Chronic pain type: chronic pain syndrome Qualified Code(s): G89.4 - Chronic pain syndrome Code(s): G89.29 - Other chronic pain Status: Acute Assessment and Plan: Will resume patient's home morphine 15 mg Q 8 hours p.r.n. pain 7-10. 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 Per surg: Plavix has been continued since his admission. He received a dose this morning. Will hold his Plavix now, which ideally is held for 5 days prior to a cholecystectomy. 10/07: Per surg: No longer plan to proceed with cholecystectomy this week. Patient to ill with sepsis and bacteremia as well as acute on chronic renal failure. Will resume Plavix today. -Plan for outpatient lap torrie potentially, surg to continue to follow. (9) Bacteremia: Code(s): R78.81 - Bacteremia Status: Acute Assessment and Plan: 10/05: Both blood cultures resulted today with Gram + cocci in chains -->Spoke with ID pharm, reports could be either strep strain (covered by Ceftriaxone) or Entero strain (covered by Vanc) --->Will start vanc today to treat if ends up being entero strain to get ahead of the infection, will f/u tomorrow for final reads -Pt on Ceftriaxone 2g already via surg for low grade fevers and leukocytosis, will continue. -Ordered echo 10/05 to r/o endocarditis -Also repeat order for BC placed today 10/06: X1 BC final result yielding enterococcus faecalis, will continue with vanc, pending second final BC result -Will continue to trend BCs 10/07: After a slight bump, WBC continues to downtrend slightly, will continue to monitor. Per surg today: Spoke with pharmacist. Will change to ampicillin and gentamicin based on susceptibilities of the Enterococcus -->Gallbladder wound culture prelim resulted today for Enterococcus, continue ampicillin and gentamicin -Will continue to trend BCs, new draw tomorrow AM scheduled 10/08: -Slight WBC increase overnight, 10.4-->12.1 -Per surg: Continue ampicillin and gentamicin based on susceptibilities of the Enterococcus. -Switched abx yesterday from vanc ampicillin and gentamicin based on susceptibilities of the Enterococcus per pharm -Will continue to monitor daily labs 10/09: -Very slight, surg aware. Continue IV abx. Continue to monitor torrie tube, labs, VS. 10/10: -WBC 12.6, Ampicillin 2 gram IVPB q 8, Ceftriaxone 2 gram IVPB daily, and Metronidazole 500 mg PO q 8. Continue to monitor torrie tube, labs, VS. 10/11: WBC 12.5. Ampicillin 2 gram IVPB q 8, Ceftriaxone 2 gram IVPB daily, and Metronidazole 500 mg PO q 8. Continue to monitor torrie tube, labs, VS. 10/12: WBC 11.2. Ampicillin 2 gram IVPB q 8, Ceftriaxone 2 gram IVPB daily, and Metronidazole 500 mg PO q 8. Continue to monitor torrie tube, labs, VS. (10) Hyponatremia: Code(s): E87.1 - Hypo-osmolality and hyponatremia Status: Acute Assessment and Plan: Levels have been low since admission despite IVF NS. -Sodium chl tablets started 10/06 to normalize -Will continue to trend pt status and daily labs 10/07: Na 134 10/08: Na 135 10/09: Na 134 10/10: Na 134. 10/11: Na+ 131. Receiving Sodium chloride 500 mg PO BID. 10/12: Na+ 132. Receiving Sodium chloride 500 mg PO BID. (11) Elevated brain natriuretic peptide (BNP) level: Code(s): R79.89 - Other specified abnormal findings of blood chemistry Status: Acute Assessment and Plan: * 10/11: BNP 9700. Lasix 40 mg ivp x 1 given. * 10/12: BNP 7,310. Creatinine 2.99. Restart home dose of Furosemide 40 mg PO BID. Monitor kidney function. * Echocardiogram ordered. Plan Torrie tube placement 10/05, continue to monitor pt with labs, VS, and pain control. Surg started IV abx 10/04. Surg restarted Plavix 10/07 due to pt being too sick for lap torrie during this admission. Per surg, per pharm, abx changed for wound culture +enterococcus coverage. Obtained new BC 10/08, pending clear BC. Subjective Date/time seen: 10/12/24 10:10 Interval history: Patient sitting up in bed. Patient reports that the feeling like something in his throat has now subsided. Patient reports pain in his right hip is an 8, constant, and aching. Patient denies chest pain, palpitations, headache, dizziness, nausea, or vomiting. Review of Systems Review of Systems: All systems reviewed & are unremarkable except as noted in HPI and below Exam Const: General: no acute distress and uncomfortable Resp: Effort & Inspection: normal respiratory effort Auscultation: clear to auscultation bilaterally Cardio: Rate: regular rate Rhythm: regular rhythm GI: GI Palp: Yes Soft to palpation Auscultation: normal bowel sounds Other: Torrie tube with bile colored drainage, small amount. Neuro: Speech: normal speech Extrem: General: pedal edema bilaterally 2+ Psych: Mental Status: mental status grossly normal Affect: normal affect Objective Data Vital Signs Vital Signs: Vital Signs - 24 hr 10/11/24 14:00 10/11/24 20:00 10/11/24 20:41 Temperature 99.1 F Pulse Rate 85 85 Respiratory Rate 18 20 Blood Pressure 149/64 H Pulse Oximetry 98 95 Oxygen Delivery Room Air Room Air Fraction of Inspired Oxygen 21 10/11/24 21:37 10/12/24 05:05 Temperature 97.9 F 98.1 F Pulse Rate 85 76 Respiratory Rate 14 12 Blood Pressure 128/63 141/85 H Pulse Oximetry 99 96 Oxygen Delivery Fraction of Inspired Oxygen Intake/Output Intake/Output: Intake & Output 10/09/24 10/10/24 10/11/24 10/12/24 23:59 23:59 23:59 23:59 Intake Total 1090 1492 1240 610 Output Total 1030 1380 880 600 Balance 60 112 360 10 Meds/Results Medications: Active Medications Generic Name Dose Route Start Last Admin Trade Name Freq PRN Reason Stop Dose Admin Acetaminophen 650 mg 09/30/24 19:02 10/12/24 01:13 Acetaminophen 325 Mg Tablet PO 650 mg Q4H PRN Administration Mild Pain (1-3) or Fever Albuterol 2 puff 10/03/24 15:40 10/04/24 09:06 Albuterol Sulfate (*Sp) Aerosol 1 Puff INHALATION 2 puff Q6HRT PRN Administration Shortness Of Breath Or Wheezing Clopidogrel Bisulfate 75 mg 10/01/24 09:00 10/12/24 08:42 Clopidogrel Bisulfate 75 Mg Tablet PO 75 mg DAILY VU Administration Dextrose 12.5 gm 09/30/24 20:29 Dextrose 50% 25 Gm/50 Ml Syringe IV PUSH PRN PRN Hypoglycemia Protocol Docusate Sodium 100 mg 10/01/24 09:00 10/12/24 08:42 Docusate Sodium 100 Mg Capsule PO 100 mg DAILY VU Administration Ezetimibe 10 mg 10/01/24 09:00 10/12/24 08:42 Ezetimibe 10 Mg Tablet PO 10 mg DAILY VU Administration Famotidine 20 mg 09/30/24 21:00 10/12/24 08:42 Famotidine 20 Mg Tablet PO 20 mg Q12HR VU Administration Finasteride 5 mg 10/01/24 09:00 10/12/24 08:42 Finasteride 5 Mg Tablet PO 5 mg DAILY VU Administration Fluticasone Propionate 2 spray 09/30/24 20:28 10/11/24 08:00 Fluticasone Propionate 0.05% Na Spr 16 Gm Btl (*Bkc) NASAL 2 spray DAILY PRN Administration allergy symptoms Furosemide 40 mg 10/09/24 09:00 10/12/24 09:53 Furosemide 40 Mg Tablet PO 40 mg BID VU Administration Glucagon 1 mg 09/30/24 20:29 Glucagon For Inj 1 Mg Vial IM PRN PRN Hypoglycemia Protocol Glucose 15 gm 09/30/24 20:29 Glucose Oral Gel 15 Gm Of Glucse In 37.5 Gm Tube PO PRN PRN Hypoglycemia Protocol Guaifenesin 600 mg 10/11/24 21:00 10/12/24 08:42 Guaifenesin 12 Hr 600 Mg Tabcr PO 10/18/24 20:59 600 mg Q12HR VU Administration Heparin Sodium (Porcine) 5,000 units 09/30/24 21:00 10/12/24 08:43 Heparin Sodium 5,000 Units/Ml Vial SUB-Q 5,000 units Q12HR VU Administration Dextrose 1,000 mls @ 100 mls/hr 09/30/24 20:29 Dextrose 5% 1,000 Ml IVPB PRN PRN Hypoglycemia Protocol Ampicillin Sodium 2 gm in 100 mls @ 200 mls/hr 10/07/24 10:00 10/12/24 09:53 Ampicillin 2 Gm/Ns 100 Ml IVPB 200 mls/hr Q8H VU Administration Ceftriaxone Sodium 2 gm in 100 mls @ 200 mls/hr 10/08/24 14:00 10/11/24 14:00 Rocephin 2 Gm/Ns 100 Ml IVPB Infused Q24H VU Infusion Insulin Aspart 1 - 3 units 09/30/24 21:00 10/11/24 23:15 Insulin Aspart (*Bkc) 100 Units/Ml SUB-Q Not Given HS VU Protocol Insulin Aspart 3 - 6 units 10/01/24 08:00 10/12/24 08:42 Insulin Aspart (*Bkc) 100 Units/Ml SUB-Q Not Given [facility] Protocol Metronidazole 500 mg 10/08/24 14:00 10/12/24 06:18 Metronidazole 500 Mg Tablet PO 500 mg Q8HR VU Administration Miscellaneous Information 1 each 10/10/24 00:01 Please Renew Morphine_. Per [employer] Procedure, It Will Discontinue If Not Renewed XX 11/09/24 00:00 CLARIFY VU Morphine Sulfate 15 mg 09/30/24 20:28 10/12/24 08:41 Morphine Sulfate (*Crx) 15 Mg Tab Ir PO 15 mg Q8H PRN Administration pain 7-10 Morphine Sulfate 15 mg 10/07/24 09:53 10/12/24 03:16 Morphine Sulfate (*Crx) 15 Mg Tab Ir PO 15 mg Q4H PRN Administration Pain Rated 7-10 Ondansetron HCl 4 mg 09/30/24 19:02 10/02/24 18:18 Ondansetron Inj 4 Mg/2 Ml Vial IV PUSH 4 mg Q4H PRN Administration Nausea Pantoprazole Sodium 40 mg 10/07/24 09:00 10/12/24 08:42 Pantoprazole 40 Mg Tablet PO 40 mg QAM VU Administration Perflutren Lipid Microsphere 0 ml 10/11/24 15:48 Perflutren Lipid Microspheres 1.5 Ml Vial Diluted To 10 Ml Total Volume IV PUSH 10/14/24 15:48 ONCE PRN adequate visualization Protocol Polyethylene Glycol 17 gm 10/10/24 13:40 10/12/24 08:42 Polyethylene Glycol 3350 17 Gm Powd.Pack PO 17 gm QAM VU Administration Saccharomyces Boulardii 250 mg 10/11/24 17:00 10/12/24 08:42 Saccharomyces Boulardii 250 Mg Capsule PO 250 mg BID VU Administration Sodium Chloride 500 mg 10/06/24 17:00 10/12/24 08:43 Sodium Chloride 500 Mg Tablet PO 500 mg BID VU Administration Verapamil HCl 120 mg 09/30/24 21:00 10/12/24 08:42 Verapamil Hcl 120 Mg Tablet Immed Release PO 120 mg Q12HR VU Administration Radiology Results: ITS Impressions Abdomen/Pelvis CT 09/30/24 19:00 IMPRESSION: Gallbladder hydrops without inflammatory change. Dilated common bile duct, measuring 14 mm. No obstructing stone or mass detected. Correlate with biliary labs. 3.4 cm fusiform infrarenal abdominal aortic aneurysm. Consider follow-up in 3 years. Upper Quadrant Ultrasound 10/01/24 08:43 IMPRESSION: 1. Cholelithiasis with a normal-appearing gallbladder but with mild intra and extrahepatic biliary ductal dilation which raises concern for a nonvisualized distal obstructing choledocholithiasis. Correlate with liver function tests and if clinically indicated could consider further evaluation with either MRCP or ERCP. Hepatobiliary Scan Nuclear Medicine 10/05/24 08:35 IMPRESSION: 1. No evident gallbladder activity consistent with acute cholecystitis. Cholecystostomy 10/05/24 16:57 IMPRESSION: 1. Successful ultrasound-guided cholecystostomy tube placement. 2. 35 mL bile was sent for aerobic, anaerobic, and fungal cultures. 3. The catheter will be managed by Dr. Brennan. Chest X-Ray 10/10/24 06:58 Impression: Clear lungs. Status post aortic valve replacement, with pacemaker device. Labs Labs: Laboratory Results - last 24 hr 10/11/24 10/11/24 10/11/24 05:10 12:18 16:44 WBC RBC Hgb Hct MCV MCH MCHC RDW Plt Count MPV Sodium Potassium Chloride Carbon Dioxide Anion Gap BUN Creatinine Estim Creat Clear Calc Estimated GFR Glucose POC Capillary Glucose 270 H 167 H Calcium Magnesium Total Bilirubin AST ALT Alkaline Phosphatase NT-Pro-B Natriuret Pep 9700 H Total Protein Albumin 10/11/24 10/12/24 10/12/24 21:37 04:46 08:21 WBC 11.2 H RBC 2.97 L Hgb 8.6 L Hct 27.2 L MCV 91.6 MCH 29.0 MCHC 31.6 L RDW 15.2 H Plt Count 448 H MPV 9.6 Sodium 132 L Potassium 4.2 Chloride 100 Carbon Dioxide 23 Anion Gap 9 BUN 53 H Creatinine 2.99 H Estim Creat Clear Calc 19 Estimated GFR 20 L Glucose 108 POC Capillary Glucose 187 H 122 H Calcium 8.5 Magnesium 2.0 Total Bilirubin 0.6 AST 30 ALT 20 Alkaline Phosphatase 98 NT-Pro-B Natriuret Pep 7310 H Total Protein 6.0 L Albumin 2.7 L Quality VTE Prophylaxis VTE prophylaxis: pharmacologic ordered (Heparin 5000 units subQ q.12 hours.)
--- NOTE | 2024-10-12 10:20 | PCNFU ---
Nutrition Follow-Up Complete: Inadequate oral intake related to acute loss of appetite as evidenced by recent intakes 0-50% Goal: Improve PO intake to 50% meals and supplements Patient is meeting goal. No new goal. Pt current nutrition is Low Fat with Ensure Clear BID. Last recorded weight is 108.4 kg, up from 104.9 kg on admit. Bowel Motility: Last reported BM 10/11 Labs Reviewed:Cr 2.99, BUN 53, Na 132, Hct 27.2, Hgb 8.6 Meds Noted: NovoLog, Protonix, Colace, Miralax. Skin: WNL Additional Notes: Patient remains on a Low Fat diet. Oral intake 50-100% of meals. Diet supplements are providing an additional 240 kcal and 8 gm protein. Agree with diet orders. Monitoring intakes, weights, labs, supplement intake, plan of care Follow up in 7 days
--- NOTE | 2024-10-12 11:26 | P.PNNP_ITS ---
Progress Note: A&P Assessment and Plan (1) Acute kidney injury: Code(s): N17.9 - Acute kidney failure, unspecified Status: Acute Assessment and Plan: * improvement noted if not relatively stable * as noted on admission * complicated by significant azotemia/elevated BUN * mild improvement in creatinine but BUN still elevated by repeat labs * holding diuretics and s/p trial of IVFs * follow respiratory status closely given history of CHF * recent CXR noted clear lungs so hold diuretics for now * evaluation to date noted: * admission CT of A/P with no suspicious mass, obstructing stone, or hydronephrosis * prerenal urine electrolytes (by FeUrea) * urine eosinophils negative * mild proteinuria * normal/low CPK * UA without evidence of infection * suspect multifactorial etiology: * prerenal factors * overdiuresis * infection (bacteremia + cholecystitis) * other(?) * follow trend of repeat labs and UOP (2) Stage 4 chronic kidney disease: Code(s): N18.4 - Chronic kidney disease, stage 4 (severe) Status: Chronic Assessment and Plan: * slow and progressive decline noted * GFR ~ 22 to 23 in 2020/2021 * GFR ~ 20 to 21 in * GFR ~ 18 by July 2024 labs * creatinine has been running anywhere from 2.4 - 3.2mg/dl in the last 6 months * creatinine on 09/27/24 (outpatient labs) = 3.93mg/dl (GFR 15) -- but this may have related to his acute medical issues currently * most likely due to diabetes and hypertension + chronic diuretic therapy (3) Azotemia: Code(s): R79.89 - Other specified abnormal findings of blood chemistry Status: Acute Assessment and Plan: * slow improvement noted if not stable * noted on admission * suspected related to diuretic therapy * however, underlying infection (see #4) likely a contributing factor as well... * no evidence of GI bleed * no other culprit medications * follow trend of BUN (4) Bacteremia: Code(s): R78.81 - Bacteremia Status: Acute Assessment and Plan: * blood culture results noted: * 10/04 blood cultures - Enterococcus faecalis * 10/05 blood cultures - Enterococcus faecalis * presumed source = gallbladder * gallbladder/bile culture - Enterococcus faecalis * on antibiotics * repeat blood cultures (10/08) negative (5) Gallbladder hydrops: Code(s): K82.1 - Hydrops of gallbladder Status: Acute Assessment and Plan: * CT of A/P without overt acute cholecystitis * however, does have significant right upper quadrant pain on palpation with nausea and decreased oral intake * RUQ ultrasound results noted as well * LFTs normal * GI recommendations noted * Surgery following * s/p cholecystostomy tube placement (on 10/05) * will eventually need cholecystectomy * continue supportive therapy (6) Anemia: Code(s): D64.9 - Anemia, unspecified Status: Acute Assessment and Plan: * due to combo of LEROY, CKD, acute illness/infection and possibly previous IVFs * dose with Epogen while hospitalized * follow trend of H/H (7) Hypertension: Code(s): I10 - Essential (primary) hypertension Status: Chronic Assessment and Plan: * reasonable control * follow trend of hemodynamics (8) Type 2 diabetes mellitus with hyperglycemia, without long-term current use of insulin: Code(s): E11.65 - Type 2 diabetes mellitus with hyperglycemia Status: Chronic Assessment and Plan: * follow accu-cheks * glycemic control per hospitalist Will continue to follow. L Subjective Date/time seen: 10/12/24 11:26 Interval history: Follow-up for acute kidney injury/acute renal failure on chronic kidney disease. Appears to be doing reasonably well at the time of my visit; renal function/creatinine relatively stable in spite of restarting/resuming diuretic therapy; no apparent distress voiced when seen; only other complaint is that of arthritis pain in his left hip; no other events overnight or earlier this morning. Exam 2 Narrative: General: elderly but WD/WN male in NAD Heart: normal S1 and S2; no rub Lungs: clear anteriorly Abdomen: soft, nontender, nondistended, positive bowel sounds Extremities: no cyanosis or clubbing; trace - 1+ edema Skin: no rash or nodules Objective Data Vital Signs Vital Signs: Vital Signs Temp Pulse Resp BP Pulse Ox O2 Del Method FiO2 10/12/24 11:20 99.0 F 87 18 144/60 H 99 10/12/24 08:45 Room Air 10/12/24 05:05 98.1 F 76 12 141/85 H 96 10/11/24 21:37 97.9 F 85 14 128/63 99 10/11/24 20:41 85 20 95 Room Air 21 10/11/24 20:00 Room Air Intake/Output Intake/Output: Intake & Output 10/09/24 10/10/24 10/11/24 10/12/24 23:59 23:59 23:59 23:59 Intake Total 1090 1492 1240 1190 Output Total 1030 0432 923 9125 Balance 60 112 360 -510 Meds/Results Medications: Active Medications Generic Name Dose Route Start Last Admin Trade Name Freq PRN Reason Stop Dose Admin Acetaminophen 650 mg 09/30/24 19:02 10/12/24 01:13 Acetaminophen 325 Mg Tablet PO 650 mg Q4H PRN Administration Mild Pain (1-3) or Fever Albuterol 2 puff 10/03/24 15:40 10/04/24 09:06 Albuterol Sulfate (*Sp) Aerosol 1 Puff INHALATION 2 puff Q6HRT PRN Administration Shortness Of Breath Or Wheezing Clopidogrel Bisulfate 75 mg 10/01/24 09:00 10/12/24 08:42 Clopidogrel Bisulfate 75 Mg Tablet PO 75 mg DAILY VU Administration Dextrose 12.5 gm 09/30/24 20:29 Dextrose 50% 25 Gm/50 Ml Syringe IV PUSH PRN PRN Hypoglycemia Protocol Docusate Sodium 100 mg 10/01/24 09:00 10/12/24 08:42 Docusate Sodium 100 Mg Capsule PO 100 mg DAILY VU Administration Ezetimibe 10 mg 10/01/24 09:00 10/12/24 08:42 Ezetimibe 10 Mg Tablet PO 10 mg DAILY VU Administration Famotidine 20 mg 09/30/24 21:00 10/12/24 08:42 Famotidine 20 Mg Tablet PO 20 mg Q12HR VU Administration Finasteride 5 mg 10/01/24 09:00 10/12/24 08:42 Finasteride 5 Mg Tablet PO 5 mg DAILY VU Administration Fluticasone Propionate 2 spray 09/30/24 20:28 10/11/24 08:00 Fluticasone Propionate 0.05% Na Spr 16 Gm Btl (*Bkc) NASAL 2 spray DAILY PRN Administration allergy symptoms Furosemide 40 mg 10/09/24 09:00 10/12/24 17:31 Furosemide 40 Mg Tablet PO 40 mg BID VU Administration Glucagon 1 mg 09/30/24 20:29 Glucagon For Inj 1 Mg Vial IM PRN PRN Hypoglycemia Protocol Glucose 15 gm 09/30/24 20:29 Glucose Oral Gel 15 Gm Of Glucse In 37.5 Gm Tube PO PRN PRN Hypoglycemia Protocol Guaifenesin 600 mg 10/11/24 21:00 10/12/24 08:42 Guaifenesin 12 Hr 600 Mg Tabcr PO 10/18/24 20:59 600 mg Q12HR VU Administration Heparin Sodium (Porcine) 5,000 units 09/30/24 21:00 10/12/24 08:43 Heparin Sodium 5,000 Units/Ml Vial SUB-Q 5,000 units Q12HR VU Administration Dextrose 1,000 mls @ 100 mls/hr 09/30/24 20:29 Dextrose 5% 1,000 Ml IVPB PRN PRN Hypoglycemia Protocol Ampicillin Sodium 2 gm in 100 mls @ 200 mls/hr 10/07/24 10:00 10/12/24 17:43 Ampicillin 2 Gm/Ns 100 Ml IVPB 200 mls/hr Q8H VU Administration Ceftriaxone Sodium 2 gm in 100 mls @ 200 mls/hr 10/08/24 14:00 10/12/24 13:18 Rocephin 2 Gm/Ns 100 Ml IVPB 200 mls/hr Q24H VU Administration Insulin Aspart 1 - 3 units 09/30/24 21:00 10/11/24 23:15 Insulin Aspart (*Bkc) 100 Units/Ml SUB-Q Not Given HS VU Protocol Insulin Aspart 3 - 6 units 10/01/24 08:00 10/12/24 17:31 Insulin Aspart (*Bkc) 100 Units/Ml SUB-Q Not Given TIDWM VU Protocol Metronidazole 500 mg 10/08/24 14:00 10/12/24 13:18 Metronidazole 500 Mg Tablet PO 500 mg Q8HR VU Administration Miscellaneous Information 1 each 10/10/24 00:01 Please Renew Morphine_. Per [employer] Procedure, It Will Discontinue If Not Renewed XX 11/09/24 00:00 CLARIFY VU Morphine Sulfate 15 mg 09/30/24 20:28 10/12/24 16:48 Morphine Sulfate (*Crx) 15 Mg Tab Ir PO 15 mg Q8H PRN Administration pain 7-10 Morphine Sulfate 15 mg 10/07/24 09:53 10/12/24 12:46 Morphine Sulfate (*Crx) 15 Mg Tab Ir PO 15 mg Q4H PRN Administration Pain Rated 7-10 Ondansetron HCl 4 mg 09/30/24 19:02 10/12/24 11:54 Ondansetron Inj 4 Mg/2 Ml Vial IV PUSH 4 mg Q4H PRN Administration Nausea Pantoprazole Sodium 40 mg 10/07/24 09:00 10/12/24 08:42 Pantoprazole 40 Mg Tablet PO 40 mg QAM VU Administration Perflutren Lipid Microsphere 0 ml 10/11/24 15:48 Perflutren Lipid Microspheres 1.5 Ml Vial Diluted To 10 Ml Total Volume IV PUSH 10/14/24 15:48 ONCE PRN adequate visualization Protocol Polyethylene Glycol 17 gm 10/10/24 13:40 10/12/24 08:42 Polyethylene Glycol 3350 17 Gm Powd.Pack PO 17 gm QAM VU Administration Saccharomyces Boulardii 250 mg 10/11/24 17:00 10/12/24 17:31 Saccharomyces Boulardii 250 Mg Capsule PO 250 mg BID VU Administration Sodium Chloride 500 mg 10/06/24 17:00 10/12/24 17:31 Sodium Chloride 500 Mg Tablet PO 500 mg BID VU Administration Verapamil HCl 120 mg 09/30/24 21:00 10/12/24 08:42 Verapamil Hcl 120 Mg Tablet Immed Release PO 120 mg Q12HR VU Administration Radiology Results: ITS Impressions Abdomen/Pelvis CT 09/30/24 19:00 IMPRESSION: Gallbladder hydrops without inflammatory change. Dilated common bile duct, measuring 14 mm. No obstructing stone or mass detected. Correlate with biliary labs. 3.4 cm fusiform infrarenal abdominal aortic aneurysm. Consider follow-up in 3 years. Upper Quadrant Ultrasound 10/01/24 08:43 IMPRESSION: 1. Cholelithiasis with a normal-appearing gallbladder but with mild intra and extrahepatic biliary ductal dilation which raises concern for a nonvisualized distal obstructing choledocholithiasis. Correlate with liver function tests and if clinically indicated could consider further evaluation with either MRCP or ERCP. Hepatobiliary Scan Nuclear Medicine 10/05/24 08:35 IMPRESSION: 1. No evident gallbladder activity consistent with acute cholecystitis. Cholecystostomy 10/05/24 16:57 IMPRESSION: 1. Successful ultrasound-guided cholecystostomy tube placement. 2. 35 mL bile was sent for aerobic, anaerobic, and fungal cultures. 3. The catheter will be managed by Dr. Brennan. Chest X-Ray 10/10/24 06:58 Impression: Clear lungs. Status post aortic valve replacement, with pacemaker device. Cholangiogram 10/12/24 14:45 IMPRESSION: 1. Cholelithiasis and choledocholithiasis obstructing distal choledocholithiasis with no observed contrast emptying into the duodenum. The cystic duct is patent. Consider ERCP for stone extraction and sphincterotomy to relieve the distal ductal obstruction. Labs Labs: Laboratory Tests 10/12/24 04:46 10/12/24 04:46 Calcium 8.5 Magnesium 2.0 Total Bilirubin 0.6 AST 30 ALT 20 Alkaline Phosphatase 98 NT-Pro-B Natriuret Pep 7310 H Total Protein 6.0 L Albumin 2.7 L
--- NOTE | 2024-10-12 11:38 | PM.PNGS ---
Progress Note: A&P Assessment and Plan (1) Cholelithiasis with acute cholecystitis without biliary obstruction: Qualifiers: Cholelithiasis location: gallbladder Qualified Code(s): K80.00 - Calculus of gallbladder with acute cholecystitis without obstruction Code(s): K80.00 - Calculus of gallbladder with acute cholecystitis without obstruction Status: Acute Assessment and Plan: Relieved with placement cholecystostomy tube. Abdomen benign aside from chronic distention and no further abdominal pain. (2) Enterococcal bacteremia: Code(s): R78.81 - Bacteremia; B95.2 - Enterococcus as the cause of diseases classified elsewhere Status: Acute Assessment and Plan: Continue ampicillin, ceftriaxone, and flagyl based on susceptibilities of the Enterococcus. (3) Antiplatelet or antithrombotic long-term use: Code(s): Z79.02 - rodent exterminator (current) use of antithrombotics/antiplatelets Status: Acute Assessment and Plan: No longer plan to proceed with cholecystectomy this week. Patient too ill with sepsis and bacteremia as well as acute on chronic renal failure. Plavix resumed. When patient is discharged, he will likely go home with cholecystostomy tube in place. (4) Pacemaker: Code(s): Z95.0 - Presence of cardiac pacemaker Status: Acute Assessment and Plan: Cannot have MRCP with pacemaker in place. 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: Qualifiers: Diabetes mellitus [facility] insulin use: without [facility] use Diabetes mellitus complication detail: with chronic kidney disease Chronic kidney disease stage: unspecified stage Qualified Code(s): E11.22 - Type 2 diabetes mellitus with diabetic chronic kidney disease Code(s): E11.29 - Type 2 diabetes mellitus with other diabetic kidney complication Status: Chronic (6) Acute kidney injury superimposed on CKD: Code(s): N17.9 - Acute kidney failure, unspecified; N18.9 - Chronic kidney disease, unspecified Status: Acute Assessment and Plan: Continue to monitor with serial labs. GFR 20. 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 No complaints of abdominal pain. WBC decreased from yesterday at 11.2. Afebrile overnight. [place] tube draining appropriately. Liver enzymes normal. Exam GI: Inspection: distended, obesity, no visible herniation and other (Cholecystostomy tube draining bile appropriately) Auscultation: normal bowel sounds Rectal Exam: deferred Objective Data Vital Signs Vital Signs: Vital Signs - 24 hr 10/11/24 14:00 10/11/24 20:00 10/11/24 20:41 Temperature 99.1 F Pulse Rate 85 85 Respiratory Rate 18 20 Blood Pressure 149/64 H Pulse Oximetry 98 95 Oxygen Delivery Room Air Room Air Fraction of Inspired Oxygen 21 10/11/24 21:37 10/12/24 05:05 10/12/24 08:45 Temperature 97.9 F 98.1 F Pulse Rate 85 76 Respiratory Rate 14 12 Blood Pressure 128/63 141/85 H Pulse Oximetry 99 96 Oxygen Delivery Room Air Fraction of Inspired Oxygen Intake/Output Intake/Output: Intake & Output 10/09/24 10/10/24 10/11/24 10/12/24 23:59 23:59 23:59 23:59 Intake Total 1090 1492 1240 610 Output Total 1030 1380 880 600 Balance 60 112 360 10 Meds/Results Medications: Active Medications Generic Name Dose Route Start Last Admin Trade Name Freq PRN Reason Stop Dose Admin Acetaminophen 650 mg 09/30/24 19:02 10/12/24 01:13 Acetaminophen 325 Mg Tablet PO 650 mg Q4H PRN Administration Mild Pain (1-3) or Fever Albuterol 2 puff 10/03/24 15:40 10/04/24 09:06 Albuterol Sulfate (*Sp) Aerosol 1 Puff INHALATION 2 puff Q6HRT PRN Administration Shortness Of Breath Or Wheezing Clopidogrel Bisulfate 75 mg 10/01/24 09:00 10/12/24 08:42 Clopidogrel Bisulfate 75 Mg Tablet PO 75 mg DAILY VU Administration Dextrose 12.5 gm 09/30/24 20:29 Dextrose 50% 25 Gm/50 Ml Syringe IV PUSH PRN PRN Hypoglycemia Protocol Docusate Sodium 100 mg 10/01/24 09:00 10/12/24 08:42 Docusate Sodium 100 Mg Capsule PO 100 mg DAILY VU Administration Ezetimibe 10 mg 10/01/24 09:00 10/12/24 08:42 Ezetimibe 10 Mg Tablet PO 10 mg DAILY VU Administration Famotidine 20 mg 09/30/24 21:00 10/12/24 08:42 Famotidine 20 Mg Tablet PO 20 mg Q12HR VU Administration Finasteride 5 mg 10/01/24 09:00 10/12/24 08:42 Finasteride 5 Mg Tablet PO 5 mg DAILY VU Administration Fluticasone Propionate 2 spray 09/30/24 20:28 10/11/24 08:00 Fluticasone Propionate 0.05% Na Spr 16 Gm Btl (*Bkc) NASAL 2 spray DAILY PRN Administration allergy symptoms Furosemide 40 mg 10/09/24 09:00 10/12/24 09:53 Furosemide 40 Mg Tablet PO 40 mg BID VU Administration Glucagon 1 mg 09/30/24 20:29 Glucagon For Inj 1 Mg Vial IM PRN PRN Hypoglycemia Protocol Glucose 15 gm 09/30/24 20:29 Glucose Oral Gel 15 Gm Of Glucse In 37.5 Gm Tube PO PRN PRN Hypoglycemia Protocol Guaifenesin 600 mg 10/11/24 21:00 10/12/24 08:42 Guaifenesin 12 Hr 600 Mg Tabcr PO 10/18/24 20:59 600 mg Q12HR VU Administration Heparin Sodium (Porcine) 5,000 units 09/30/24 21:00 10/12/24 08:43 Heparin Sodium 5,000 Units/Ml Vial SUB-Q 5,000 units Q12HR VU Administration Dextrose 1,000 mls @ 100 mls/hr 09/30/24 20:29 Dextrose 5% 1,000 Ml IVPB PRN PRN Hypoglycemia Protocol Ampicillin Sodium 2 gm in 100 mls @ 200 mls/hr 10/07/24 10:00 10/12/24 09:53 Ampicillin 2 Gm/Ns 100 Ml IVPB 200 mls/hr Q8H VU Administration Ceftriaxone Sodium 2 gm in 100 mls @ 200 mls/hr 10/08/24 14:00 10/11/24 14:00 Rocephin 2 Gm/Ns 100 Ml IVPB Infused Q24H VU Infusion Insulin Aspart 1 - 3 units 09/30/24 21:00 10/11/24 23:15 Insulin Aspart (*Bkc) 100 Units/Ml SUB-Q Not Given HS [facility] Protocol Insulin Aspart 3 - 6 units 10/01/24 08:00 10/12/24 08:42 Insulin Aspart (*Bkc) 100 Units/Ml SUB-Q Not Given TIDWM [facility] Protocol Metronidazole 500 mg 10/08/24 14:00 10/12/24 06:18 Metronidazole 500 Mg Tablet PO 500 mg Q8HR VU Administration Miscellaneous Information 1 each 10/10/24 00:01 Please Renew Morphine_. Per [employer] Procedure, It Will Discontinue If Not Renewed XX 11/09/24 00:00 CLARIFY VU Morphine Sulfate 15 mg 09/30/24 20:28 10/12/24 08:41 Morphine Sulfate (*Crx) 15 Mg Tab Ir PO 15 mg Q8H PRN Administration pain 7-10 Morphine Sulfate 15 mg 10/07/24 09:53 10/12/24 03:16 Morphine Sulfate (*Crx) 15 Mg Tab Ir PO 15 mg Q4H PRN Administration Pain Rated 7-10 Ondansetron HCl 4 mg 09/30/24 19:02 10/02/24 18:18 Ondansetron Inj 4 Mg/2 Ml Vial IV PUSH 4 mg Q4H PRN Administration Nausea Pantoprazole Sodium 40 mg 10/07/24 09:00 10/12/24 08:42 Pantoprazole 40 Mg Tablet PO 40 mg QAM VU Administration Perflutren Lipid Microsphere 0 ml 10/11/24 15:48 Perflutren Lipid Microspheres 1.5 Ml Vial Diluted To 10 Ml Total Volume IV PUSH 10/14/24 15:48 ONCE PRN adequate visualization Protocol Polyethylene Glycol 17 gm 10/10/24 13:40 10/12/24 08:42 Polyethylene Glycol 3350 17 Gm Powd.Pack PO 17 gm QAM VU Administration Saccharomyces Boulardii 250 mg 10/11/24 17:00 10/12/24 08:42 Saccharomyces Boulardii 250 Mg Capsule PO 250 mg BID VU Administration Sodium Chloride 500 mg 10/06/24 17:00 10/12/24 08:43 Sodium Chloride 500 Mg Tablet PO 500 mg BID VU Administration Verapamil HCl 120 mg 09/30/24 21:00 10/12/24 08:42 Verapamil Hcl 120 Mg Tablet Immed Release PO 120 mg Q12HR VU Administration Radiology Results: ITS Impressions Abdomen/Pelvis CT 09/30/24 19:00 IMPRESSION: Gallbladder hydrops without inflammatory change. Dilated common bile duct, measuring 14 mm. No obstructing stone or mass detected. Correlate with biliary labs. 3.4 cm fusiform infrarenal abdominal aortic aneurysm. Consider follow-up in 3 years. Upper Quadrant Ultrasound 10/01/24 08:43 IMPRESSION: 1. Cholelithiasis with a normal-appearing gallbladder but with mild intra and extrahepatic biliary ductal dilation which raises concern for a nonvisualized distal obstructing choledocholithiasis. Correlate with liver function tests and if clinically indicated could consider further evaluation with either MRCP or ERCP. Hepatobiliary Scan Nuclear Medicine 10/05/24 08:35 IMPRESSION: 1. No evident gallbladder activity consistent with acute cholecystitis. Cholecystostomy 10/05/24 16:57 IMPRESSION: 1. Successful ultrasound-guided cholecystostomy tube placement. 2. 35 mL bile was sent for aerobic, anaerobic, and fungal cultures. 3. The catheter will be managed by Dr. Brennan. Chest X-Ray 10/10/24 06:58 Impression: Clear lungs. Status post aortic valve replacement, with pacemaker device. Labs Labs: Laboratory Results - last 24 hr 10/11/24 10/11/24 10/11/24 12:18 16:44 21:37 WBC RBC Hgb Hct MCV MCH MCHC RDW Plt Count MPV Sodium Potassium Chloride Carbon Dioxide Anion Gap BUN Creatinine Estim Creat Clear Calc Estimated GFR Glucose POC Capillary Glucose 270 H 167 H 187 H Calcium Magnesium Total Bilirubin AST ALT Alkaline Phosphatase NT-Pro-B Natriuret Pep Total Protein Albumin 10/12/24 10/12/24 04:46 08:21 WBC 11.2 H RBC 2.97 L Hgb 8.6 L Hct 27.2 L MCV 91.6 MCH 29.0 MCHC 31.6 L RDW 15.2 H Plt Count 448 H MPV 9.6 Sodium 132 L Potassium 4.2 Chloride 100 Carbon Dioxide 23 Anion Gap 9 BUN 53 H Creatinine 2.99 H Estim Creat Clear Calc 19 Estimated GFR 20 L Glucose 108 POC Capillary Glucose 122 H Calcium 8.5 Magnesium 2.0 Total Bilirubin 0.6 AST 30 ALT 20 Alkaline Phosphatase 98 NT-Pro-B Natriuret Pep 7310 H Total Protein 6.0 L Albumin 2.7 L
[2024-10-12] MEDS: ONDANSETRON INJ 4 MG/2 ML VIAL IV PUSH (11:54)
[2024-10-12] MEDS: cefTRIAXone 2 GM/NS 100 ML 2 GM/100 ML BAG IVPB (13:18)
[2024-10-12 13:33] VITALS: BP 144/60; PULSE 87; RESP 18; TEMP 37.2; O2SAT 99
[2024-10-12 20:15] VITALS: BP 141/63; PULSE 86; RESP 12; TEMP 36.9; O2SAT 97
--- NOTE | 2024-10-13 | ECHO_ITS ---
Patient Info Name: Angel Zuniga Age: 88 years : 1935 Gender: Male Ht: 68 in Wt: 235 lbs BSA: 2.30 m2 HR: 88 bpm BP: 141 / 85 mmHg Technical Quality: Fair Exam Date: 10/13/2024 7:41 AM Patient Status: I Admit Date: 10/01/2024 Exam Type: CA echo dop color flow w con Complete two-dimensional, color flow and Doppler transthoracic echocardiogram is performed with contrast to opacify the left ventricle and to improve the deliniation of the left ventricle endocardial borders. Staff Referring Physician: Rosendo Brennan MD Solution Make Up Operator: Mildred Tejeda Attending Provider: Janette Washington Contrast/Agitated Saline Contrast/Ag. Saline: Definity Amount: 2.00 ml Administered By: Mildred Tejeda Existing IV Access: Yes IV Access Condition: patent with no signs of infiltration Summary 1. Definity contrast administered improved wall motion interpretation. 2. Left ventricular chamber dimension is normal. 3. Left ventricular systolic function is normal, estimated at 60-65. 4. There is moderate concentric increased left ventricular wall thickness. 5. The left ventricular diastolic function is grade I diastolic dysfunction. 6. E/e' 15 is elevated. 7. Left atrial chamber dimension is mildly enlarged. 8. 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 Consider ADOLFO if clinically indicated. 9. There is moderate to severe mitral valve regurgitation. 10. Circumferential echogenic mass measuring 1.4 cm x 0.8 cm attached to left atrial side of mitral valve annulus which probably calcified mass. There is an additional small calcified echogenic mass attached to left ventricular side of posterior mitral valve leaflet. Probably calcifications more likely than vegetations. Consider ADOLFO if clinically indicated. 11. There is mild tricuspid valve regurgitation. 12. Mild pulmonary hypertension, estimated pulmonary arterial systolic pressure is 40 mmHg. 13. There is trace pulmonic regurgitation. Left Ventricle E/e' 15 is elevated. Left ventricular chamber dimension is normal. Left ventricular systolic function is normal, estimated at 60-65. There is moderate concentric increased left ventricular wall thickness. The left ventricular diastolic function is grade I diastolic dysfunction. Definity contrast administered improved wall motion interpretation. Right Ventricle Right ventricular chamber dimension is normal. Right ventricular systolic function is normal and with normal TAPSE 2.0 cm. Left Atria Left atrial chamber dimension is mildly enlarged. Right Atria Right atrial chamber dimension is normal. 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 Consider ADOLFO if clinically indicated. Aortic Valve The aortic valve is not well visualized. There is no aortic valve stenosis. There is no aortic valve regurgitation. Pulmonic Valve There is trace pulmonic regurgitation. Mitral Valve There is no mitral valve stenosis. There is moderate to severe mitral valve regurgitation. Circumferential echogenic mass measuring 1.4 cm x 0.8 cm attached to left atrial side of mitral valve annulus which probably calcified mass. There is an additional small calcified echogenic mass attached to left ventricular side of posterior mitral valve leaflet. Probably calcifications more likely than vegetations. Consider ADOLFO if clinically indicated. Tricuspid Valve There is mild tricuspid valve regurgitation. Mild pulmonary hypertension, estimated pulmonary arterial systolic pressure is 40 mmHg. Pericardium/Pleural There is no pericardial effusion. Inferior Vena Cava Normal inferior vena cava with >50% collapse upon inspiration consistent with normal right atrial pressure, 5 mmHg. Aorta The aortic root size at the sinus of Valsalva is normal. Left Ventricular Outflow Tract Name Value Normal LVOT Doppler LVOT Peak Velocity 175 cm/s LVOT Peak Gradient 12 mmHg LVOT Mean Gradient 8 mmHg LVOT VTI 45 cm LVOT VTI/AV VTI Ratio 0.9 Pulmonic Valve Name Value Normal RVOT Doppler RVOT Peak Velocity 80 cm/s RVOT Peak Gradient 3 mmHg PV Doppler PV Peak Velocity 126 cm/s PV Peak Gradient 6 mmHg Mitral Valve Name Value Normal MV Doppler MV Peak Gradient 13 mmHg MV Mean Gradient 7 mmHg MV Diastolic Function MV E Peak Velocity 104 cm/s MV A Peak Velocity 153 cm/s MV E/A 0.7 MV Decel Time (PW) 492 ms MV Annular TDI MV E/e' (Septal) 21.5 MV E/e' (Lateral) 12.3 MV E/e' (Average) 16.9 Tricuspid Valve Name Value Normal TV Regurgitation Doppler TR Peak Velocity 294 cm/s TR Peak Gradient 31 mmHg Estimated PAP/RSVP RA Pressure 5 mmHg <=5 PA Systolic Pressure 40 mmHg <36 RV Systolic Pressure 40 mmHg <36 Aortic Valve Name Value Normal AV Doppler AV Peak Velocity 239 cm/s AV Peak Gradient 23 mmHg AV Mean Gradient 14 mmHg AV VTI 51 cm AV DI (Dev) 0.73 Ventricles Name Value Normal LV Dimensions 2D/MM IVS Diastolic Thickness (2D) 1.4 cm 0.6-1.0 LVID Diastole (2D) 3.9 cm 4.2-5.8 LVIW Diastolic Thickness (2D) 1.3 cm 0.6-1.0 LVID Systole (2D) 2.9 cm 2.5-4.0 LV Mass (2D Cubed) 188.50 g 88.00-224.00 LV Mass Index (2D Cubed) 82 g/m2 49-115 Relative Wall Thickness (2D) 0.66 <=0.42 LV Fractional Shortening/Ejection Fraction 2D/MM LV Fractional Shortening (2D) 26 % 25-43 LV EF (2D Teichholz) 51 % LV Diastolic Volume (4C MOD) 108 ml LV EF (4C MOD) 53 % LV Diastolic Volume (2C MOD) 104 ml LV EF (2C MOD) 67 % LV Diastolic Volume (BP MOD) 111 ml 62-150 LV Diastolic Volume Index (BP MOD) 48 ml/m2 34-74 LV Systolic Volume (BP MOD) 42 ml 21-61 LV Systolic Volume Index (BP MOD) 18 ml/m2 11-31 LV EF (BP MOD) 62 % 52-72 LV Diastolic Length (4C) 9.1 cm LV Systolic Length (4C) 7.4 cm LV Stroke Volume (4C MOD) 58 ml Atria Name Value Normal LA Dimensions LA Volume (4C A-L) 60 ml LA Volume (BP A-L) 53 ml RA Dimensions RA Systolic Major Adena Length (4C) 6.1 cm 2.1-2.7 RA Area (4C) 15.6 cm2 <=18.0 Report Signatures
[2024-10-13] MEDS: AMPICILLIN 2 GM/NS 100 ML 2 GM/100 ML BAG IVPB ×3 (01:12→18:10)
[2024-10-13 05:27] VITALS: BP 140/54; PULSE 78; RESP 10; TEMP 37.1; O2SAT 95
[2024-10-13 06:01] LABS: Hematocrit 26.9 % (42.0-52.0); Hemoglobin 8.5 g/dL (14.0-18.0); Mean Corpuscular HGB Conc 31.6 g/dl (32-36); Mean Corpuscular Hemoglobin 28.9 pg (26-34); Mean Corpuscular Volume 91.5 fl (80-100); Platelet Count Result 479 k/mm3 (150-375); Red Blood Count 2.94 M/mm3 (4.6-6.20); White Blood Count 12.0 K/mm3 (4.5-10.0)
[2024-10-13 06:17] LABS: Alanine Aminotransferase 17 U/L (6-50); Albumin Level 2.8 g/dL (3.5-5.1); Alkaline Phosphatase 97 U/L (38-126); Anion Gap 8 mmol/L (4-12); Aspartate Amino Transferase 27 U/L (17-59); Bilirubin,Total 0.5 mg/dL (0.2-1.3); Blood Urea Nitrogen 48 mg/dL (9-20); Calcium 8.4 mg/dL (8.4-10.2); Carbon Dioxide 25 mmol/L (22-30); Chloride 98 mmol/L (98-107); Estimated CRCL calculation 21 ml/min; Estimated Glomerular Filt Rate 22; Glucose 119 mg/dL (65-110); Potassium 4.6 mmol/L (3.4-5.0); Sodium 131 mmol/L (137-145); Total Protein 6.2 g/dL (6.3-8.2)
[2024-10-13] MEDS: PERFLUTREN LIPID MICROSPHERES 1.5 ML VIAL DILUTED TO 10 ML TOTAL VOLUME IV PUSH (08:20)
--- NOTE | 2024-10-13 08:38 | IVDEFINITY ---
Prior to administration of IV Definity the patient was educated on the risks and benefits of the imaging enhancing agent including potential adverse side effects. The patient verbalized understanding. Allergies were verified. No exclusion criteria were identified and at least one of the following inclusion criteria were met: 1) physician request, 2) patient technically difficult to image (per the [place] [employer] guidelines of two or more segments not discernable within the apical view), or 3) questionable left ventricular function. ?
[2024-10-13 08:46] LABS: NT Pro B Type Natriuretic Pept 6850 pg/mL (19.9-100)
[2024-10-13] MEDS: FAMOTIDINE 20 MG TABLET PO ×2 (08:46→21:05)
[2024-10-13] MEDS: DOCUSATE SODIUM 100 MG CAPSULE PO (08:46)
[2024-10-13] MEDS: FINASTERIDE 5 MG TABLET PO (08:46)
[2024-10-13] MEDS: EZETIMIBE 10 MG TABLET PO (08:46)
[2024-10-13] MEDS: SACCHAROMYCES BOULARDII 250 MG CAPSULE PO ×2 (08:46→16:52)
[2024-10-13] MEDS: PANTOPRAZOLE 40 MG TABLET PO (08:47)
[2024-10-13] MEDS: FUROSEMIDE 40 MG TABLET PO ×2 (08:47→16:52)
[2024-10-13] MEDS: VERAPAMIL HCL 120 MG TABLET IMMED RELEASE PO ×2 (08:47→21:05)
[2024-10-13] MEDS: FLUTICASONE PROPIONATE 0.05% NA SPR 16 GM BTL (*BKC) 2 SPRAY NASAL (08:47)
[2024-10-13] MEDS: MORPHINE SULFATE (*CRX) 15 MG TAB IR PO ×2 (08:47→16:52)
[2024-10-13] MEDS: guaiFENesin 12 HR 600 MG TABCR PO ×2 (08:47→21:05)
[2024-10-13] MEDS: SODIUM CHLORIDE 500 MG TABLET PO ×2 (10:57→16:52)
--- NOTE | 2024-10-13 11:57 | P.PNNP_ITS ---
Progress Note: A&P Assessment and Plan (1) Acute kidney injury: Code(s): N17.9 - Acute kidney failure, unspecified Status: Acute Assessment and Plan: * improvement noted if not relatively stable * as noted on admission * complicated by significant azotemia/elevated BUN on admission (see #3) * s/p holding diuretics and trial of IVFs * evaluation to date noted: * admission CT of A/P with no suspicious mass, obstructing stone, or hydronephrosis * prerenal urine electrolytes (by FeUrea) * urine eosinophils negative * mild proteinuria * normal/low CPK * UA without evidence of infection * suspect multifactorial etiology: * prerenal factors * overdiuresis * infection (bacteremia + cholecystitis) * other(?) * resumed on diuretic therapy (on 10/12) * follow trend of repeat labs and UOP (2) Stage 4 chronic kidney disease: Code(s): N18.4 - Chronic kidney disease, stage 4 (severe) Status: Chronic Assessment and Plan: * slow and progressive decline noted * GFR ~ 22 to 23 in * GFR ~ 20 to 21 in * GFR ~ 18 by July 2024 labs * creatinine has been running anywhere from 2.4 - 3.2mg/dl in the last 6 months * creatinine on 09/27/24 (outpatient labs) = 3.93mg/dl (GFR 15) -- but this may have related to his acute medical issues noted on admission * most likely due to diabetes and hypertension + chronic diuretic therapy (3) Azotemia: Code(s): R79.89 - Other specified abnormal findings of blood chemistry Status: Acute Assessment and Plan: * slow improvement noted if not stable * noted on admission * suspected related to diuretic therapy * however, underlying infection (see #4) likely a contributing factor as well... * no evidence of GI bleed * no other culprit medications * follow trend of BUN (4) Bacteremia: Code(s): R78.81 - Bacteremia Status: Acute Assessment and Plan: * blood culture results noted: * 10/04 blood cultures - Enterococcus faecalis * 10/05 blood cultures - Enterococcus faecalis * presumed source = gallbladder * gallbladder/bile culture - Enterococcus faecalis * on antibiotics * repeat blood cultures (10/08) negative (5) Gallbladder hydrops: Code(s): K82.1 - Hydrops of gallbladder Status: Acute Assessment and Plan: * CT of A/P without overt acute cholecystitis * however, does have significant right upper quadrant pain on palpation with nausea and decreased oral intake * RUQ ultrasound results noted as well * LFTs normal * GI recommendations noted * Surgery following * s/p cholecystostomy tube placement (on 10/05) * will eventually need cholecystectomy * cholangiogram (10/12) suggestive of retained stone in bile duct -- GI called to see again for possible ERCP * continue supportive therapy (6) Anemia: Code(s): D64.9 - Anemia, unspecified Status: Acute Assessment and Plan: * due to combo of LEROY, CKD, acute illness/infection and possibly previous IVFs * dose with Epogen while hospitalized * follow trend of H/H (7) Hypertension: Code(s): I10 - Essential (primary) hypertension Status: Chronic Assessment and Plan: * reasonable control * follow trend of hemodynamics (8) Type 2 diabetes mellitus with hyperglycemia, without long-term current use of insulin: Code(s): E11.65 - Type 2 diabetes mellitus with hyperglycemia Status: Chronic Assessment and Plan: * follow accu-cheks * glycemic control per hospitalist Will continue to follow. L Subjective Date/time seen: 10/13/24 11:57 Interval history: Follow-up for acute kidney injury/acute renal failure on chronic kidney disease. Resting comfortably in chair at the time of my visit; no apparent distress noted when seen; renal function/creatinine/BUN remains stable if not better and is tolerating re-institution of diuretic therapy; results of cholangiogram done yesterday noted -- GI called to see again; no other issues/events overnight or earlier this AM. Exam 2 Narrative: General: elderly but WD/WN male in NAD Heart: normal S1 and S2; no rub Lungs: clear anteriorly Abdomen: soft, nontender, nondistended, positive bowel sounds Extremities: no cyanosis or clubbing; trace - 1+ edema Skin: warm and intact Objective Data Vital Signs Vital Signs: Vital Signs Temp Pulse Resp BP Pulse Ox O2 Del Method 10/13/24 11:45 98.2 F 82 18 140/58 L 98 10/13/24 08:47 Room Air 10/13/24 05:27 98.7 F 78 10 L 140/54 L 95 10/12/24 20:15 98.5 F 86 12 141/63 H 97 10/12/24 20:00 Room Air Intake/Output Intake/Output: Intake & Output 10/10/24 10/11/24 10/12/24 10/13/24 23:59 23:59 23:59 23:59 Intake Total 1492 1240 1290 120 Output Total 0553 660 6870 850 Balance 112 976 -274 -415 Meds/Results Medications: Active Medications Generic Name Dose Route Start Last Admin Trade Name Freq PRN Reason Stop Dose Admin Acetaminophen 650 mg 09/30/24 19:02 10/12/24 01:13 Acetaminophen 325 Mg Tablet PO 650 mg Q4H PRN Administration Mild Pain (1-3) or Fever Albuterol 2 puff 10/03/24 15:40 10/04/24 09:06 Albuterol Sulfate (*Sp) Aerosol 1 Puff INHALATION 2 puff Q6HRT PRN Administration Shortness Of Breath Or Wheezing Clopidogrel Bisulfate 75 mg 10/01/24 09:00 10/12/24 08:42 Clopidogrel Bisulfate 75 Mg Tablet PO 75 mg DAILY VU Administration Dextrose 12.5 gm 09/30/24 20:29 Dextrose 50% 25 Gm/50 Ml Syringe IV PUSH PRN PRN Hypoglycemia Protocol Docusate Sodium 100 mg 10/01/24 09:00 10/12/24 08:42 Docusate Sodium 100 Mg Capsule PO 100 mg DAILY VU Administration Ezetimibe 10 mg 10/01/24 09:00 10/12/24 08:42 Ezetimibe 10 Mg Tablet PO 10 mg DAILY VU Administration Famotidine 20 mg 09/30/24 21:00 10/12/24 20:37 Famotidine 20 Mg Tablet PO 20 mg Q12HR VU Administration Finasteride 5 mg 10/01/24 09:00 10/12/24 08:42 Finasteride 5 Mg Tablet PO 5 mg DAILY VU Administration Fluticasone Propionate 2 spray 09/30/24 20:28 10/11/24 08:00 Fluticasone Propionate 0.05% Na Spr 16 Gm Btl (*Bkc) NASAL 2 spray DAILY PRN Administration allergy symptoms Furosemide 40 mg 10/09/24 09:00 10/12/24 17:31 Furosemide 40 Mg Tablet PO 40 mg BID VU Administration Glucagon 1 mg 09/30/24 20:29 Glucagon For Inj 1 Mg Vial IM PRN PRN Hypoglycemia Protocol Glucose 15 gm 09/30/24 20:29 Glucose Oral Gel 15 Gm Of Glucse In 37.5 Gm Tube PO PRN PRN Hypoglycemia Protocol Guaifenesin 600 mg 10/11/24 21:00 10/12/24 20:37 Guaifenesin 12 Hr 600 Mg Tabcr PO 10/18/24 20:59 600 mg Q12HR VU Administration Heparin Sodium (Porcine) 5,000 units 09/30/24 21:00 10/12/24 20:37 Heparin Sodium 5,000 Units/Ml Vial SUB-Q 5,000 units Q12HR VU Administration Dextrose 1,000 mls @ 100 mls/hr 09/30/24 20:29 Dextrose 5% 1,000 Ml IVPB PRN PRN Hypoglycemia Protocol Ampicillin Sodium 2 gm in 100 mls @ 200 mls/hr 10/07/24 10:00 10/13/24 01:12 Ampicillin 2 Gm/Ns 100 Ml IVPB 200 mls/hr Q8H VU Administration Ceftriaxone Sodium 2 gm in 100 mls @ 200 mls/hr 10/08/24 14:00 10/12/24 13:18 Rocephin 2 Gm/Ns 100 Ml IVPB 200 mls/hr Q24H VU Administration Insulin Aspart 1 - 3 units 09/30/24 21:00 10/12/24 21:21 Insulin Aspart (*Bkc) 100 Units/Ml SUB-Q Not Given HS VU Protocol Insulin Aspart 3 - 6 units 10/01/24 08:00 10/12/24 17:31 Insulin Aspart (*Bkc) 100 Units/Ml SUB-Q Not Given TIDWM VU Protocol Metolazone 5 mg 10/13/24 09:00 Metolazone 5 Mg Tablet PO 10/13/24 09:01 ONCE ONE Metronidazole 500 mg 10/08/24 14:00 10/13/24 05:33 Metronidazole 500 Mg Tablet PO 500 mg Q8HR VU Administration Miscellaneous Information 1 each 10/10/24 00:01 Please Renew Morphine_. Per [employer] Procedure, It Will Discontinue If Not Renewed XX 11/09/24 00:00 CLARIFY VU Morphine Sulfate 15 mg 09/30/24 20:28 10/12/24 16:48 Morphine Sulfate (*Crx) 15 Mg Tab Ir PO 15 mg Q8H PRN Administration pain 7-10 Morphine Sulfate 15 mg 10/07/24 09:53 10/12/24 12:46 Morphine Sulfate (*Crx) 15 Mg Tab Ir PO 15 mg Q4H PRN Administration Pain Rated 7-10 Ondansetron HCl 4 mg 09/30/24 19:02 10/12/24 11:54 Ondansetron Inj 4 Mg/2 Ml Vial IV PUSH 4 mg Q4H PRN Administration Nausea Pantoprazole Sodium 40 mg 10/07/24 09:00 10/12/24 08:42 Pantoprazole 40 Mg Tablet PO 40 mg QAM VU Administration Perflutren Lipid Microsphere 0 ml 10/11/24 15:48 Perflutren Lipid Microspheres 1.5 Ml Vial Diluted To 10 Ml Total Volume IV PUSH 10/14/24 15:48 ONCE PRN adequate visualization Protocol Polyethylene Glycol 17 gm 10/10/24 13:40 10/12/24 08:42 Polyethylene Glycol 3350 17 Gm Powd.Pack PO 17 gm QAM VU Administration Saccharomyces Boulardii 250 mg 10/11/24 17:00 10/12/24 17:31 Saccharomyces Boulardii 250 Mg Capsule PO 250 mg BID VU Administration Sodium Chloride 500 mg 10/06/24 17:00 10/12/24 17:31 Sodium Chloride 500 Mg Tablet PO 500 mg BID VU Administration Verapamil HCl 120 mg 09/30/24 21:00 10/12/24 20:38 Verapamil Hcl 120 Mg Tablet Immed Release PO 120 mg Q12HR VU Administration Radiology Results: ITS Impressions Abdomen/Pelvis CT 09/30/24 19:00 IMPRESSION: Gallbladder hydrops without inflammatory change. Dilated common bile duct, measuring 14 mm. No obstructing stone or mass detected. Correlate with biliary labs. 3.4 cm fusiform infrarenal abdominal aortic aneurysm. Consider follow-up in 3 years. Upper Quadrant Ultrasound 10/01/24 08:43 IMPRESSION: 1. Cholelithiasis with a normal-appearing gallbladder but with mild intra and extrahepatic biliary ductal dilation which raises concern for a nonvisualized distal obstructing choledocholithiasis. Correlate with liver function tests and if clinically indicated could consider further evaluation with either MRCP or ERCP. Hepatobiliary Scan Nuclear Medicine 10/05/24 08:35 IMPRESSION: 1. No evident gallbladder activity consistent with acute cholecystitis. Cholecystostomy 10/05/24 16:57 IMPRESSION: 1. Successful ultrasound-guided cholecystostomy tube placement. 2. 35 mL bile was sent for aerobic, anaerobic, and fungal cultures. 3. The catheter will be managed by Dr. Brennan. Chest X-Ray 10/10/24 06:58 Impression: Clear lungs. Status post aortic valve replacement, with pacemaker device. Cholangiogram 10/12/24 14:45 IMPRESSION: 1. Cholelithiasis and choledocholithiasis obstructing distal choledocholithiasis with no observed contrast emptying into the duodenum. The cystic duct is patent. Consider ERCP for stone extraction and sphincterotomy to relieve the distal ductal obstruction. Labs Labs: Laboratory Tests 10/13/24 05:52 10/13/24 05:52 Calcium 8.4 Total Bilirubin 0.5 AST 27 ALT 17 Alkaline Phosphatase 97 Total Protein 6.2 L Albumin 2.8 L
--- NOTE | 2024-10-13 11:59 | P.PNIM_ITS ---
Progress Note: A&P Assessment and Plan (1) Chest pain: Qualifiers: Chest pain type: unspecified Qualified Code(s): R07.9 - Chest pain, unspecified Code(s): R07.9 - Chest pain, unspecified Status: Acute Assessment and Plan: -Chest pain seems atypical in nature, pt continue to deny CP. -Troponin are elevated but flat. Will complete troponin series. -Pain seems more consistent with GI cause with reported indigestion and significant right upper quadrant pain. -Will continue Antihypertensives and Plavix. -->HOLD Plavix starting 10/05 for eventual lap torrie per surg 10/07: Per surg: No longer plan to proceed with cholecystectomy this week. Patient to ill with sepsis and bacteremia as well as acute on chronic renal failure. Will resume Plavix today. Pt continues to deny CP/SOB or any other worrisome sx. (2) Acute kidney injury superimposed on CKD: Code(s): N17.9 - Acute kidney failure, unspecified; N18.9 - Chronic kidney disease, unspecified Status: Acute Assessment and Plan: Patient has chronic kidney disease stage 4 with acute kidney injury. Most likely prerenal due to intervascular volume depletion. - Hold Lasix and continue IV fluid hydration at 75ml/hr. - Nephrology was consulted from the ER. - Continue flomax 10/02- cr/bun 2.96/100 10/03: Cr/BUN: 3.26/91, pending neph rounds due to worsening Cr 10/04: Cr/BUN: 3.43/90, Started IVF again today, continue to hold lasix 10/05: Cr/BUN: 3.54/[address] Lopez today, he believes that once the torrie tube is placed and with IV abx on board, kidney labs should begin to normalize back to pt baseline which is CKD4. Will continue to monitor levels. Dr. Lopez on for the weekend. 10/06: Cr/BUN: 2.84/84, starting to trend down, will continue to monitor daily IVF D/C due to better trending kidneys, lasix still on hold (no pulm congestion), and adequate intake. 10/07: Kidney levels continuing to improve Cr/BUN: 2.33/27 -If continues to improve, will start Lasix back up tomorrow. at the bedside today concerned for his BLE edema, which has not worsened per my exam. Pt also denies CP/SOB. 10/08: Kidney levels continuing to improve Cr/BUN: 2.15/59 -Lasix restarted today 10/09 daily: Cr/BUN: 2.41/55 Per neph 10/08: * slow and progressive decline noted * GFR ~ 22 to 23 in * GFR ~ 20 to 21 in * GFR ~ 18 by July 2024 labs * creatinine has been running anywhere from 2.4 - 3.2mg/dl in the last 6 months * creatinine on 09/27/24 (outpatient labs) = 3.93mg/dl (GFR 15) -- but this may have related to his acute medical issues currently * most likely due to diabetes and hypertension + chronic diuretic therapy go to the 10/10: Cr/BUN: 2.84/57. Nephrology following, appreciate recommendations. 10/11: Cr/BUN 3.02/55. Nephrology following, appreciate recommendations. 10/12: Cr/BUN 2.99/53. Nephrology following, appreciate recommendations. 10/13: Cr/BUN 2.74/48. Nephrology following, appreciate recommendations. (3) Acute uremia: Code(s): N19 - Unspecified kidney failure Status: Acute Assessment and Plan: Possibly due to hypovolemia. GI bleed is less likely given patient's hemoglobin is stable at 12 in ED and patient denies symptoms of hematemesis hematochezia or melena. Pt continues to deny any blood loss. -Will hold Lasix and continue IV fluid hydration and repeat CBC and electrolyte panel in a.m. -Decrease IV fluids to 50 ml and monitor I/O closely 10/03: -H/H as of 10/03: 9.6/30.5 -Pt appetite still decreased, continue IVF 50/hr 10/04: -H/H 9.830.5 -Started again on IVF to try to normalize creat, pt will be NPO at [place] anyway for procedure tomorrow. 10/05: -H/H 9.9/31.3 -IVF down to 75 ml/hr for NPO status and to avoid pulm edema Spoke to Dr. Lopez today, he believes that once the torrie tube is placed and with IV abx on board, kidney labs should begin to normalize back to pt baseline which is CKD4. Will continue to monitor levels. Dr. Lopez on for the weekend. 10/06: -H/H 10.8/35.4 -IVF stopped today, appetite better 10/07: -H/H: 9.7/29.8 10/08: -H/H: 10.3/31.7 10/10: -H/H 9.1/28.4. 10/11: H&H 9.1/28.0. 10/12: H&H 8.6/27.2. 10/13: H&H 8.5/26.9. (4) Gallbladder hydrops: Code(s): K82.1 - Hydrops of gallbladder Status: Acute Assessment and Plan: CT does not suggest overt acute cholecystitis but patient does have significant kit right upper quadrant pain on palpation and worsening of his nausea with palpation of right upper quadrant. -RUQ US for better visualization of the gallbladder: 1. Cholelithiasis with a normal-appearing gallbladder but with mild intra and extrahepatic biliary ductal dilation which raises concern for a nonvisualized distal obstructing choledocholithiasis. Correlate with liver function tests and if clinically indicated could consider further evaluation with either MRCP or ERCP. -->Consulted GI 10/03, pending recs/rounding -Bilirubin and transaminases are normal. -Patient does have some leukocytosis but no fever. -Will hold off on adding antibiotic coverage at this time and will repeat CBC in a.m. 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 His symptoms are likely related to his gallbadder and there is concern for choledocholithiasis given his common bile duct dilatation on imaging. Since his Plavix has been continued, he would not be a candidate for a laparoscopic cholecystectomy at this time. He received his last dose of Plavix this morning, which I have put on hold. Since he continues to have symptoms, we would recommend proceeding with percutaneous cholecystostomy tube placement to treat his cholecystitis. We will eventually consider proceeding with a laparoscopic cholecystectomy with intraoperative cholangiogram to evaluate for choledocholithiasis, but this will be at a later date, possibly as an outpatient depending on how he is progressing medically, when his Plavix can be held for an adequate amount of time. This would also allow time for improved medical optimization in regards to his renal failure and pulmonary edema. Will repeat labs tomorrow and include a CMP to re-evaluate his liver enzymes. Although his WBC count has been trending down, I will also start him on broad-spectrum IV antibiotics to cover for cholecystitis/cholangitis given his persistent pain/fever/leukocytosis. Plavix has been continued since his admission. He received a dose this morning. Will hold his Plavix now, which ideally is held for 5 days prior to a cholecystectomy. -->Plan for torrie tube placement tomorrow, surg started ceftriaxone and flagyl today 10/05: HIDA scan and cholecystectomy tube placement today. Low fat diet started after procedure. Will continue to monitor tube and daily AM labs. 10/06: Pt looking a lot better since tube placement yesterday. Pt reporting some pain in his RLQ and tube insertion site but per pt his morphine home dose has been taking care of the pain. -Per surg note today: Cholecystostomy tube placed yesterday. Having pain at drain site. Cholecystostomy tube will alleviate acute cholecystitis. Will not help if patient has cholangitis. Although the bile ducts are dilated, liver function tests are normal. Cholangitis seems unlikely. Bacteremia: Receiving appropriate antibiotics with vancomycin and cefepime. Pending susceptibility testing on the Enterococcus 10/07: Per surg: Relieved with placement cholecystostomy tube. Abdomen benign and no further abdominal pain. No longer plan to proceed with cholecystectomy this week. Patient to ill with sepsis and bacteremia as well as acute on chronic renal failure. Will resume Plavix today. -Pt denies pain to his abd or torrie tube site. 10/08: -Slight WBC increase overnight, 10.4-->12.1 -Per surg rounds: Relieved with placement cholecystostomy tube. Abdomen benign and no further abdominal pain. No longer plan to proceed with cholecystectomy this week. Patient too ill with sepsis and bacteremia as well as acute on chronic renal failure. Plavix resumed. -Switched abx yesterday from vanc ampicillin and gentamicin based on susceptibilities of the Enterococcus per pharm 10/09: -Slight WBC increase overnight again, surg aware. Continue IV abx. Continue to monitor torrie tube, labs, VS. 10/10: -WBC 12.6, Ampicillin 2 gram IVPB q 8, Ceftriaxone 2 gram IVPB daily, and M etronidazole 500 mg PO q 8. Continue to monitor torrie tube, labs, VS. PT/OT. Surgery following, appreciate recommendations. 10/12: -WBC 11.2, Ampicillin 2 gram IVPB q 8, Ceftriaxone 2 gram IVPB daily, and Metronidazole 500 mg PO q 8. Continue to monitor torrie tube, labs, VS. PT/OT. Surgery following, appreciate recommendations. Cholangiogram today showed: Cholelithiasis and choledocholithiasis obstructing distal choledocholithiasis with no observed contrast emptying into the duodenum. The cystic duct is patent. Consider ERCP for stone extraction and sphincterotomy to relieve the distal ductal obstruction. 10/13: -WBC 12.0, Ampicillin 2 gram IVPB q 8, Ceftriaxone 2 gram IVPB daily, and Metronidazole 500 mg PO q 8. Continue to monitor torrie tube, labs, VS. PT/OT. Ibrahim rgery following, appreciate recommendations. (5) Type 2 diabetes mellitus with hyperglycemia, without long-term current use of insulin: Code(s): E11.65 - Type 2 diabetes mellitus with hyperglycemia Status: Chronic Assessment and Plan: Hold Actos -Moderate dose sliding scale insulin with Accu-Cheks a.c. HS and hypoglycemia protocol. -Glucose has been stable during stay (6) Elevated brain natriuretic peptide (BNP) level: Code(s): R79.89 - Other specified abnormal findings of blood chemistry Status: Acute Assessment and Plan: * 10/11: BNP 9,700. Lasix 40 mg ivp x 1 given. * 10/12: BNP 7,310. Creatinine 2.99. Restart home dose of Furosemide 40 mg PO BID. Monitor kidney function. * 10/13: BNP 6,850. Creatinine 2.74. Continue Furosemide 40 mg PO BID. Monitor kidney function. * Echocardiogram showed: Summary 1. Definity contrast administered improved wall motion interpretation. 2. Left ventricular chamber dimension is normal. 3. Left ventricular systolic function is normal, estimated at 60-65. 4. There is moderate concentric increased left ventricular wall thickness. 5. The left ventricular diastolic function is grade I diastolic dysfunction. 6. E/e' 15 is elevated. 7. Left atrial chamber dimension is mildly enlarged. 8. 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 Consider ADOLFO if clinically indicated. 9. There is moderate to severe mitral valve regurgitation. 10. Circumferential echogenic mass measuring 1.4 cm x 0.8 cm attached to left atrial side of mitral valve annulus which probably calcified mass. There is an additional small calcified echogenic mass attached to left ventricular side of posterior mitral valve leaflet. Probably calcifications more likely than vegetations. Consider ADOLFO if clinically indicated. 11. There is mild tricuspid valve regurgitation. 12. Mild pulmonary hypertension, estimated pulmonary arterial systolic pressure is 40 mmHg. 13. There is trace pulmonic regurgitation. * Cardiology consulted. (7) Chronic pain: Qualifiers: Chronic pain type: chronic pain syndrome Qualified Code(s): G89.4 - Chronic pain syndrome Code(s): G89.29 - Other chronic pain Status: Acute Assessment and Plan: Will resume patient's home morphine 15 mg Q 8 hours p.r.n. pain 7-10. (8) Abdominal aortic aneurysm (AAA) 3.0 cm to 5.5 cm in diameter in male: Code(s): I71.40 - Abdominal aortic aneurysm, without rupture, unspecified Status: Acute Assessment and Plan: Likely chronic will defer follow-up to patient's primary care provider for serial imaging (9) Bacteremia: Code(s): R78.81 - Bacteremia Status: Acute Assessment and Plan: 10/05: Both blood cultures resulted today with Gram + cocci in chains -->Spoke with ID pharm, reports could be either strep strain (covered by Ceftriaxone) or Entero strain (covered by Vanc) --->Will start vanc today to treat if ends up being entero strain to get ahead of the infection, will f/u tomorrow for final reads -Pt on Ceftriaxone 2g already via surg for low grade fevers and leukocytosis, will continue. -Ordered echo 10/05 to r/o endocarditis -Also repeat order for BC placed today 10/06: X1 BC final result yielding enterococcus faecalis, will continue with vanc, pending second final BC result -Will continue to trend BCs 10/07: After a slight bump, WBC continues to downtrend slightly, will continue to monitor. Per surg today: Spoke with pharmacist. Will change to ampicillin and gentamicin based on susceptibilities of the Enterococcus -->Gallbladder wound culture prelim resulted today for Enterococcus, continue am picillin and gentamicin -Will continue to trend BCs, new draw tomorrow AM scheduled 10/08: -Slight WBC increase overnight, 10.4-->12.1 -Per surg: Continue ampicillin and gentamicin based on susceptibilities of the Enterococcus. -Switched abx yesterday from vanc ampicillin and gentamicin based on susceptibilities of the Enterococcus per pharm -Will continue to monitor daily labs 10/09: -Very slight, surg aware. Continue IV abx. Continue to monitor torrie tube, labs, VS. 10/10: -WBC 12.6, Ampicillin 2 gram IVPB q 8, Ceftriaxone 2 gram IVPB daily, and Metronidazole 500 mg PO q 8. Continue to monitor torrie tube, labs, VS. 10/11: WBC 12.5. Ampicillin 2 gram IVPB q 8, Ceftriaxone 2 gram IVPB daily, and Metronidazole 500 mg PO q 8. Continue to monitor torrie tube, labs, VS. 10/12: WBC 11.2. Ampicillin 2 gram IVPB q 8, Ceftriaxone 2 gram IVPB daily, and Metronidazole 500 mg PO q 8. Continue to monitor torrie tube, labs, VS. 10/13: WBC 12, Ampicillin 2 gram IVPB q 8, Ceftriaxone 2 gram IVPB daily, and Metronidazole 500 mg PO q 8. Continue to monitor torrie tube, labs, VS. PT/OT. Surgery following, appreciate recommendations. (10) Hyponatremia: Code(s): E87.1 - Hypo-osmolality and hyponatremia Status: Acute Assessment and Plan: Levels have been low since admission despite IVF NS. -Sodium chl tablets started 10/06 to normalize -Will continue to trend pt status and daily labs 10/07: Na 134 10/08: Na 135 10/09: Na 134 10/10: Na 134. 10/11: Na+ 131. Receiving Sodium chloride 500 mg PO BID. 10/12: Na+ 132. Receiving Sodium chloride 500 mg PO BID. 10/13: Na+ 131. Receiving Sodium chloride 500 mg PO BID. (11) Antiplatelet or antithrombotic long-term use: Code(s): Z79.02 - long term acute care registered nurse (current) use of antithrombotics/antiplatelets Status: Acute Assessment and Plan: Pt with hx of pacemaker and plavix long-term use. Per surg: Plavix has been continued since his admission. He received a dose this morning. Will hold his Plavix now, which ideally is held for 5 days prior to a cholecystectomy. 10/07: Per surg: No longer plan to proceed with cholecystectomy this week. Patient to ill with sepsis and bacteremia as well as acute on chronic renal failure. Will resume Plavix today. -Plan for outpatient lap torrie potentially, surg to continue to follow. Plan Torrie tube placement 10/05, continue to monitor pt with labs, VS, and pain control. Surg started IV abx 10/04. Surg restarted Plavix 10/07 due to pt being too sick for lap torrie during this admission. Per surg, per pharm, abx changed for wound culture +enterococcus coverage. Obtained new BC 10/08, pending clear BC. Subjective Date/time seen: 10/13/24 11:59 Interval history: Patient sitting up in bed. Patient denies chest pain, palpitations, headache, dizziness, nausea, or vomiting. Review of Systems Review of Systems: All systems reviewed & are unremarkable except as noted in HPI and below Exam Const: General: comfortable and no acute distress Resp: Effort & Inspection: normal respiratory effort Auscultation: clear to auscultation bilaterally Cardio: Rate: regular rate Rhythm: regular rhythm GI: GI Palp: Yes Soft to palpation Auscultation: normal bowel sounds Other: Torrie tube with bile colored drainage, small amount. Neuro: Speech: normal speech Extrem: General: pedal edema bilaterally 2+ Psych: Mental Status: mental status grossly normal Affect: normal affect Objective Data Vital Signs Vital Signs: Vital Signs - 24 hr 10/12/24 13:33 10/12/24 20:00 10/12/24 20:15 Temperature 99.0 F 98.5 F Pulse Rate 87 86 Respiratory Rate 18 12 Blood Pressure 144/60 H 141/63 H Pulse Oximetry 99 97 Oxygen Delivery Room Air 10/13/24 05:27 10/13/24 08:47 Temperature 98.7 F Pulse Rate 78 Respiratory Rate 10 L Blood Pressure 140/54 L Pulse Oximetry 95 Oxygen Delivery Room Air Intake/Output Intake/Output: Intake & Output 10/10/24 10/11/24 10/12/24 10/13/24 23:59 23:59 23:59 23:59 Intake Total 1492 1240 1290 340 Output Total 6465 951 9774 900 Balance 112 084 -958 -269 Meds/Results Medications: Active Medications Generic Name Dose Route Start Last Admin Trade Name Freq PRN Reason Stop Dose Admin Acetaminophen 650 mg 09/30/24 19:02 10/12/24 01:13 Acetaminophen 325 Mg Tablet PO 650 mg Q4H PRN Administration Mild Pain (1-3) or Fever Albuterol 2 puff 10/03/24 15:40 10/04/24 09:06 Albuterol Sulfate (*Sp) Aerosol 1 Puff INHALATION 2 puff Q6HRT PRN Administration Shortness Of Breath Or Wheezing Clopidogrel Bisulfate 75 mg 10/01/24 09:00 10/12/24 08:42 Clopidogrel Bisulfate 75 Mg Tablet PO 75 mg DAILY VU Administration Dextrose 12.5 gm 09/30/24 20:29 Dextrose 50% 25 Gm/50 Ml Syringe IV PUSH PRN PRN Hypoglycemia Protocol Docusate Sodium 100 mg 10/01/24 09:00 10/13/24 08:46 Docusate Sodium 100 Mg Capsule PO 100 mg DAILY VU Administration Ezetimibe 10 mg 10/01/24 09:00 10/13/24 08:46 Ezetimibe 10 Mg Tablet PO 10 mg DAILY VU Administration Famotidine 20 mg 09/30/24 21:00 10/13/24 08:46 Famotidine 20 Mg Tablet PO 20 mg Q12HR VU Administration Finasteride 5 mg 10/01/24 09:00 10/13/24 08:46 Finasteride 5 Mg Tablet PO 5 mg DAILY VU Administration Fluticasone Propionate 2 spray 09/30/24 20:28 10/13/24 08:47 Fluticasone Propionate 0.05% Na Spr 16 Gm Btl (*Bkc) NASAL 2 spray DAILY PRN Administration allergy symptoms Furosemide 40 mg 10/09/24 09:00 10/13/24 08:47 Furosemide 40 Mg Tablet PO 40 mg BID VU Administration Glucagon 1 mg 09/30/24 20:29 Glucagon For Inj 1 Mg Vial IM PRN PRN Hypoglycemia Protocol Glucose 15 gm 09/30/24 20:29 Glucose Oral Gel 15 Gm Of Glucse In 37.5 Gm Tube PO PRN PRN Hypoglycemia Protocol Guaifenesin 600 mg 10/11/24 21:00 10/13/24 08:47 Guaifenesin 12 Hr 600 Mg Tabcr PO 10/18/24 20:59 600 mg Q12HR VU Administration Heparin Sodium (Porcine) 5,000 units 09/30/24 21:00 10/13/24 08:55 Heparin Sodium 5,000 Units/Ml Vial SUB-Q 5,000 units Q12HR VU Administration Dextrose 1,000 mls @ 100 mls/hr 09/30/24 20:29 Dextrose 5% 1,000 Ml IVPB PRN PRN Hypoglycemia Protocol Ampicillin Sodium 2 gm in 100 mls @ 200 mls/hr 10/07/24 10:00 10/13/24 10:57 Ampicillin 2 Gm/Ns 100 Ml IVPB 200 mls/hr Q8H VU Administration Ceftriaxone Sodium 2 gm in 100 mls @ 200 mls/hr 10/08/24 14:00 10/12/24 13:18 Rocephin 2 Gm/Ns 100 Ml IVPB 200 mls/hr Q24H VU Administration Insulin Aspart 1 - 3 units 09/30/24 21:00 10/12/24 21:21 Insulin Aspart (*Bkc) 100 Units/Ml SUB-Q Not Given HS VU Protocol Insulin Aspart 3 - 6 units 10/01/24 08:00 10/13/24 11:59 Insulin Aspart (*Bkc) 100 Units/Ml SUB-Q Not Given TIDWM VU Protocol Metronidazole 500 mg 10/08/24 14:00 10/13/24 05:33 Metronidazole 500 Mg Tablet PO 500 mg Q8HR VU Administration Miscellaneous Information 1 each 10/10/24 00:01 10/13/24 11:24 Please Renew Morphine_. Per [employer] Procedure, It Will Discontinue If Not Renewed XX 11/09/24 00:00 Not Given CLARIFY VU Morphine Sulfate 15 mg 09/30/24 20:28 10/13/24 08:47 Morphine Sulfate (*Crx) 15 Mg Tab Ir PO 15 mg Q8H PRN Administration pain 7-10 Morphine Sulfate 15 mg 10/07/24 09:53 10/12/24 12:46 Morphine Sulfate (*Crx) 15 Mg Tab Ir PO 15 mg Q4H PRN Administration Pain Rated 7-10 Ondansetron HCl 4 mg 09/30/24 19:02 10/12/24 11:54 Ondansetron Inj 4 Mg/2 Ml Vial IV PUSH 4 mg Q4H PRN Administration Nausea Pantoprazole Sodium 40 mg 10/07/24 09:00 10/13/24 08:47 Pantoprazole 40 Mg Tablet PO 40 mg QAM VU Administration Polyethylene Glycol 17 gm 10/10/24 13:40 10/13/24 08:47 Polyethylene Glycol 3350 17 Gm Powd.Pack PO 17 gm QAM VU Administration Saccharomyces Boulardii 250 mg 10/11/24 17:00 10/13/24 08:46 Saccharomyces Boulardii 250 Mg Capsule PO 250 mg BID VU Administration Sodium Chloride 500 mg 10/06/24 17:00 10/13/24 10:57 Sodium Chloride 500 Mg Tablet PO 500 mg BID VU Administration Verapamil HCl 120 mg 09/30/24 21:00 10/13/24 08:47 Verapamil Hcl 120 Mg Tablet Immed Release PO 120 mg Q12HR VU Administration Radiology Results: ITS Impressions Abdomen/Pelvis CT 09/30/24 19:00 IMPRESSION: Gallbladder hydrops without inflammatory change. Dilated common bile duct, measuring 14 mm. No obstructing stone or mass detected. Correlate with biliary labs. 3.4 cm fusiform infrarenal abdominal aortic aneurysm. Consider follow-up in 3 years. Upper Quadrant Ultrasound 10/01/24 08:43 IMPRESSION: 1. Cholelithiasis with a normal-appearing gallbladder but with mild intra and extrahepatic biliary ductal dilation which raises concern for a nonvisualized distal obstructing choledocholithiasis. Correlate with liver function tests and if clinically indicated could consider further evaluation with either MRCP or ERCP. Hepatobiliary Scan Nuclear Medicine 10/05/24 08:35 IMPRESSION: 1. No evident gallbladder activity consistent with acute cholecystitis. Cholecystostomy 10/05/24 16:57 IMPRESSION: 1. Successful ultrasound-guided cholecystostomy tube placement. 2. 35 mL bile was sent for aerobic, anaerobic, and fungal cultures. 3. The catheter will be managed by Dr. Brennan. Chest X-Ray 10/10/24 06:58 Impression: Clear lungs. Status post aortic valve replacement, with pacemaker device. Cholangiogram 10/12/24 14:45 IMPRESSION: 1. Cholelithiasis and choledocholithiasis obstructing distal choledocholithiasis with no observed contrast emptying into the duodenum. The cystic duct is patent. Consider ERCP for stone extraction and sphincterotomy to relieve the distal ductal obstruction. Labs Labs: Laboratory Results - last 24 hr 10/12/24 10/12/24 10/12/24 12:43 17: 20:25 WBC RBC Hgb Hct MCV MCH MCHC RDW Plt Count MPV Sodium Potassium Chloride Carbon Dioxide Anion Gap BUN Creatinine Estim Creat Clear Calc Estimated GFR Glucose POC Capillary Glucose 108 H 143 H 183 H Calcium Total Bilirubin AST ALT Alkaline Phosphatase NT-Pro-B Natriuret Pep Total Protein Albumin 10/13/24 10/13/24 10/13/24 05:47 05:52 08:31 WBC 12.0 H RBC 2.94 L Hgb 8.5 L Hct 26.9 L MCV 91.5 MCH 28.9 MCHC 31.6 L RDW 15.2 H Plt Count 479 H MPV 8.9 Sodium 131 L Potassium 4.6 Chloride 98 Carbon Dioxide 25 Anion Gap 8 BUN 48 H Creatinine 2.74 H Estim Creat Clear Calc 21 Estimated GFR 22 L Glucose 119 H POC Capillary Glucose 115 H Calcium 8.4 Total Bilirubin 0.5 AST 27 ALT 17 Alkaline Phosphatase 97 NT-Pro-B Natriuret Pep 6850 H Total Protein 6.2 L Albumin 2.8 L Quality VTE Prophylaxis VTE prophylaxis: pharmacologic ordered (Heparin 5000 units subQ q.12 hours.)
[2024-10-13 14:00] VITALS: BP 140/58; PULSE 82; RESP 18; TEMP 36.8; O2SAT 98
[2024-10-13] MEDS: cefTRIAXone 2 GM/NS 100 ML 2 GM/100 ML BAG IVPB (15:06)
--- NOTE | 2024-10-13 15:16 | P.CONCA_ITS ---
Assessment and Plan Assessment and plan (1) Chest pain: Qualifiers: Chest pain type: unspecified Qualified Code(s): R07.9 - Chest pain, unspecified Code(s): R07.9 - Chest pain, unspecified Status: Acute Assessment and Plan: Atypical. Troponin only slightly elevated at 0.090. EKG shows no ST abnormality. No ACS. (2) Hypertension: Code(s): I10 - Essential (primary) hypertension Status: Chronic Assessment and Plan: Stable. (3) Mixed hyperlipidemia: Code(s): E78.2 - Mixed hyperlipidemia Status: Acute Assessment and Plan: On Zetia. Intolerant of statins. (4) Pacemaker: Code(s): Z95.0 - Presence of cardiac pacemaker Status: Acute Assessment and Plan: Stable. He is followed by his regular rn clinical documentation, Dr. Penn with [facility]. (5) Abdominal aortic aneurysm (AAA) 3.0 cm to 5.5 cm in diameter in male: Code(s): I71.40 - Abdominal aortic aneurysm, without rupture, unspecified Status: Acute Assessment and Plan: Stable. 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 Offered ADOLFO to r/o myxoma and vegetations this coming week if interested and he and his wanted to think about it then let me know. (7) Enterococcal bacteremia: Code(s): R78.81 - Bacteremia; B95.2 - Enterococcus as the cause of diseases classified elsewhere Status: Acute Assessment and Plan: On IV antibiotics. Possible vegetation of posterior mitral valve leaflet and annulus or calcifications. History of Present Illness History of Present Illness Consult date/time: 10/13/24 15:16 Reason For Visit: Chest pain, Acute on chronic renal failure, Uremia Narrative: 88 yr old man referred for evaluation of his cardiovascular status. 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 His regular rn clinical documentation is Dr. Penn with [facility]. is at bedside. He was admitted 13 days ago on 09/30/24 with nausea and abdominal pain, found to have cholelithiasis and had cholecystotomy tube placed. He had enterococcal bacteremia from gallbladder on antibiotics. The reason for my consult is echo showing possible right side atrial myxoma, and possible vegetation involving mitral valve and apparatus. States he has mild resting chest discomfort and sob. He is limited at walking around the house and not cannot walk due to significant edema of legs. Review of Systems 2 Constitutional: Constitutional: Reports as per HPI, Denies chills and Denies fever(s) Cardiovascular: Cardiovascular: Reports as per HPI, Reports chest pain, Denies irregular heart rhythm and Reports leg edema Respiratory: Respiratory: Reports as per HPI and Reports dyspnea Gastrointestinal: Gastrointestinal: Reports as per HPI, Reports abdominal pain and Reports nausea Genitourinary: Genitourinary: Reports as per HPI and Denies dysuria Musculoskeletal: Musculoskeletal: Reports as per HPI Neurologic: Reports as per HPI, Denies dizziness and Denies syncope [facility] Past Medical History Medical History (Updated 10/13/24 @ 15:27 by Rachid Farnsworth DO) Choledocholithiasis with acute cholecystitis Cholangitis Elevated LFTs Chronic pain 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 URI (upper respiratory infection) Preoperative clearance History of colon polyps Dupuytren's contracture of right hand Pre-operative clearance Trigger finger, right middle finger Aortic stenosis Iron deficiency anemia Low back pain radiating to left leg Type II diabetes mellitus with renal manifestations Essential hypertension, benign Mixed hyperlipidemia Bilateral inguinal hernia Small fat containing bilateral inguinal hernias noted on CT 09/30/2024 Hepatic steatosis Chronic pain GERD (gastroesophageal reflux disease) Dyslipidemia BPH (benign prostatic hyperplasia) Type 2 diabetes mellitus Hypertension Hyperlipidemia Chronic kidney disease Heart failure 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 moderate mitral valve regurgitation Surgical History Surgical History History of repair of right rotator cuff (~07/05/14) Subacromial Decompression; Limited Debridement Status post cataract extraction of both eyes with insertion of intraocular lens 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 He has 3 children. He is a retired [employer]. He he is a lifelong nonsmoker and does not drink alcohol or use illicit substances. He ambulates with a walker. Code status: Full code (he states he would not want long-term intubation or feeding tube) Surrogate decision maker: Nallely () Smoking status: Never smoker Second hand tobacco smoke exposure: No Alcohol intake: never Substance use: never Do You Feel Safe in your Home?: Yes Lack of Transportation: YES Lack of Food: Never True Current Housing: I Have Housing Concerned About Future Housing: No Difficulty Paying Gas/Electric Bills: No Difficulty Paying for Meds: No Currently Unemployed: No Education: High School Diploma/GED Difficulty w/ Childcare or Family Care: No Living arrangements: with family Gender identity (if verbalized by the patient): Male Spiritual care concerns: No Meds Home Medications and Allergies Home Medications ?Medication ?Instructions ?Recorded ?Confirmed ?Type furosemide 40 mg tablet See Rx Instructions .Route 08/02/24 10/07/24 Rx .COMPLEX #180 tabs doxazosin 4 mg tablet (Cardura) 4 mg PO QHS #30 tabs 08/08/24 08/08/24 Rx clopidogrel 75 mg tablet (Plavix) 75 mg PO DAILY 09/30/24 09/30/24 History docusate sodium 100 mg capsule 100 mg PO DAILY 09/30/24 09/30/24 History (Colace) ezetimibe 10 mg tablet (Zetia) 10 mg PO DAILY 09/30/24 09/30/24 History famotidine 20 mg tablet (Acid 20 mg PO BID 09/30/24 09/30/24 History Controller) finasteride 5 mg tablet 5 mg PO DAILY 09/30/24 09/30/24 History fluticasone propionate 50 2 spray intranasal DAILY PRN 09/30/24 09/30/24 History mcg/actuation nasal allergy symptoms spray,suspension (Flonase Allergy Relief) metolazone 5 mg tablet 5 mg PO DAILY 09/30/24 09/30/24 History morphine 15 mg immediate release 15 mg PO Q8H PRN pain 09/30/24 09/30/24 History tablet pioglitazone 15 mg tablet (Actos) 15 mg PO DAILY 09/30/24 09/30/24 History verapamil 120 mg tablet 120 mg PO DAILY 09/30/24 09/30/24 History Allergies Allergy/AdvReac Type Severity Reaction Status Date / Time atorvastatin Allergy Unknown myalgia Verified 10/01/24 08:17 rosuvastatin Allergy Unknown myalgia Verified 10/01/24 08:17 Vital Signs Vital Signs - 24 hr 10/12/24 20:00 10/12/24 20:15 10/13/24 05:27 Temperature 98.5 F 98.7 F Pulse Rate 86 78 Respiratory Rate 12 10 L Blood Pressure 141/63 H 140/54 L Pulse Oximetry 97 95 Oxygen Delivery Room Air 10/13/24 08:47 10/13/24 14:00 Temperature 98.2 F Pulse Rate 82 Respiratory Rate 18 Blood Pressure 140/58 L Pulse Oximetry 98 Oxygen Delivery Room Air Exam 2 Const: General: cooperative, healthy appearing and comfortable Resp: Auscultation: clear to auscultation bilaterally, no crackles, no rales, no rhonchi and no wheezes Cardio: Rate: regular rate Rhythm: regular rhythm Heart sounds: no murmurs Peripheral pulses: dorsalis pedis present GI: GI Palp: No abdominal tenderness and Yes Soft to palpation Neuro: General: oriented to person, oriented to place and oriented to time Extrem: Right lower extremity: edema Left lower extremity: edema Other: Mod edema of both legs Results Labs and Meds 10/13/24 05:52 10/13/24 05:52 Lab results: Cardiac Enzymes 10/13/24 Range/Units 05:52 AST 27 (17-59) U/L CBC 10/13/24 Range/Units 05:52 WBC 12.0 H (4.5-10.0) K/mm3 RBC 2.94 L (4.6-6.20) M/mm3 Hgb 8.5 L (14.0-18.0) g/dL Hct 26.9 L (42.0-52.0) % Plt Count 479 H (150-375) k/mm3 Comprehensive Metabolic Panel 10/13/24 Range/Units 05:52 Sodium 131 L (137-145) mmol/L Potassium 4.6 (3.4-5.0) mmol/L Chloride 98 (98-107) mmol/L Carbon Dioxide 25 (22-30) mmol/L BUN 48 H (9-20) mg/dL Creatinine 2.74 H (0.7-1.3) mg/dL Glucose 119 H (65-110) mg/dL Calcium 8.4 (8.4-10.2) mg/dL AST 27 (17-59) U/L ALT 17 (6-50) U/L Alkaline Phosphatase 97 (38-126) U/L Total Protein 6.2 L (6.3-8.2) g/dL Albumin 2.8 L (3.5-5.1) g/dL Intake and Output 10/12/24 10/13/24 10/13/24 23:59 07:59 15:59 Intake Total 340 220 360 Output Total 330 875 2229 Balance 110 -042 -796 Intake: IV 100 100 Ampicillin 2 gm/Ns 100 ml 2 gm 100 100 In 100 ml @ 200 mls/hr IVPB Q8H [facility] Rx#:[id number] Oral 240 120 360 Output: Catheter Urine 750 1100 External/Condom 750 1100 Drain 230 100 50 Percutaneous 230 100 50 Patient Weight 10/13/24 23:59 Weight 106 kg
--- NOTE | 2024-10-13 15:20 | WPDGIPROGNO ---
Progress Note: A&P Assessment and Plan (1) Enterococcal bacteremia: Code(s): R78.81 - Bacteremia; B95.2 - Enterococcus as the cause of diseases classified elsewhere Status: Acute Assessment and Plan: probably source is cholangitis (he is post cholecystostomy tube and cholangiogram noted retained stone in bile duct) he will need ERCP but discussed case with anesthesia, also worried about calcification in 2d-echo, probably is calcification but can not rule out vegetation, patient is on iv abx now. They would rather wait until Tuesday to do ERCP when full staff is available, patient now is hemodynamically stable, liver enzymes normal, no more abdominal pain and he is comfortable. I think he can wait another day (2) Cholangitis: Code(s): K83.09 - Other cholangitis Status: Acute Assessment and Plan: will need ercp, probably Tuesday (3) Choledocholithiasis with acute cholecystitis: Code(s): K80.42 - Calculus of bile duct with acute cholecystitis without obstruction Status: Acute (4) Antiplatelet or antithrombotic long-term use: Code(s): Z79.02 - intermediate (current) use of antithrombotics/antiplatelets Status: Acute Assessment and Plan: on hold (5) Type 2 diabetes mellitus with hyperglycemia, without long-term current use of insulin: Code(s): E11.65 - Type 2 diabetes mellitus with hyperglycemia Status: Chronic (6) Acute kidney injury superimposed on CKD: Code(s): N17.9 - Acute kidney failure, unspecified; N18.9 - Chronic kidney disease, unspecified Status: Acute Subjective Date/time seen: 10/13/24 15:20 Interval history: patient was evaluated by Dr Palma few days ago and now primary team is calling again. He had sepsis with Enterococcus bacteremia and cholecystitis however he was too sick for surgery and underwent cholecystostomy tube, cholangiogram yesterday revealed retained stone in bile duct, requesting evaluation for ERCP. Review of Systems Review of Systems: All systems reviewed & are unremarkable except as noted in HPI and below Exam Const: General: comfortable and no acute distress HENMT: Face/Nose/Sinus: Normal nares present Eyes: Sclera: sclerae normal Neck: Neck: supple Resp: Effort & Inspection: normal respiratory effort Auscultation: clear to auscultation bilaterally Cardio: Rate: regular rate Rhythm: regular rhythm GI: GI Palp: Yes Soft to palpation and No Guarding due to palpation present (GI) Auscultation: normal bowel sounds Other: Sunni tube with bile colored drainage, small amount. Skin: General skin exam: normal color Neuro: Speech: normal speech Extrem: General: pedal edema bilaterally 2+ Psych: Mental Status: mental status grossly normal Affect: normal affect Objective Data Vital Signs Vital Signs: Vital Signs - 24 hr 10/12/24 20:00 10/12/24 20:15 10/13/24 05:27 Temperature 98.5 F 98.7 F Pulse Rate 86 78 Respiratory Rate 12 10 L Blood Pressure 141/63 H 140/54 L Pulse Oximetry 97 95 Oxygen Delivery Room Air 10/13/24 08:47 10/13/24 14:00 Temperature 98.2 F Pulse Rate 82 Respiratory Rate 18 Blood Pressure 140/58 L Pulse Oximetry 98 Oxygen Delivery Room Air Intake/Output Intake/Output: Intake & Output 10/10/24 10/11/24 10/12/24 10/13/24 23:59 23:59 23:59 23:59 Intake Total 1492 1240 1390 580 Output Total 4478 961 8579 1999 Balance 112 833 -381 -3289 Meds/Results Medications: Active Medications Generic Name Dose Route Start Last Admin Trade Name Freq PRN Reason Stop Dose Admin Acetaminophen 650 mg 09/30/24 19:02 10/12/24 01:13 Acetaminophen 325 Mg Tablet PO 650 mg Q4H PRN Administration Mild Pain (1-3) or Fever Albuterol 2 puff 10/03/24 15:40 10/04/24 09:06 Albuterol Sulfate (*Sp) Aerosol 1 Puff INHALATION 2 puff Q6HRT PRN Administration Shortness Of Breath Or Wheezing Clopidogrel Bisulfate 75 mg 10/01/24 09:00 10/12/24 08:42 Clopidogrel Bisulfate 75 Mg Tablet PO 75 mg DAILY VU Administration Dextrose 12.5 gm 09/30/24 20:29 Dextrose 50% 25 Gm/50 Ml Syringe IV PUSH PRN PRN Hypoglycemia Protocol Docusate Sodium 100 mg 10/01/24 09:00 10/13/24 08:46 Docusate Sodium 100 Mg Capsule PO 100 mg DAILY VU Administration Ezetimibe 10 mg 10/01/24 09:00 10/13/24 08:46 Ezetimibe 10 Mg Tablet PO 10 mg DAILY VU Administration Famotidine 20 mg 09/30/24 21:00 10/13/24 08:46 Famotidine 20 Mg Tablet PO 20 mg Q12HR VU Administration Finasteride 5 mg 10/01/24 09:00 10/13/24 08:46 Finasteride 5 Mg Tablet PO 5 mg DAILY VU Administration Fluticasone Propionate 2 spray 09/30/24 20:28 10/13/24 08:47 Fluticasone Propionate 0.05% Na Spr 16 Gm Btl (*Bkc) NASAL 2 spray DAILY PRN Administration allergy symptoms Furosemide 40 mg 10/09/24 09:00 10/13/24 08:47 Furosemide 40 Mg Tablet PO 40 mg BID VU Administration Glucagon 1 mg 09/30/24 20:29 Glucagon For Inj 1 Mg Vial IM PRN PRN Hypoglycemia Protocol Glucose 15 gm 09/30/24 20:29 Glucose Oral Gel 15 Gm Of Glucse In 37.5 Gm Tube PO PRN PRN Hypoglycemia Protocol Guaifenesin 600 mg 10/11/24 21:00 10/13/24 08:47 Guaifenesin 12 Hr 600 Mg Tabcr PO 10/18/24 20:59 600 mg Q12HR VU Administration Heparin Sodium (Porcine) 5,000 units 09/30/24 21:00 10/13/24 08:55 Heparin Sodium 5,000 Units/Ml Vial SUB-Q 5,000 units Q12HR VU Administration Dextrose 1,000 mls @ 100 mls/hr 09/30/24 20:29 Dextrose 5% 1,000 Ml IVPB PRN PRN Hypoglycemia Protocol Ampicillin Sodium 2 gm in 100 mls @ 200 mls/hr 10/07/24 10:00 10/13/24 10:57 Ampicillin 2 Gm/Ns 100 Ml IVPB 200 mls/hr Q8H VU Administration Ceftriaxone Sodium 2 gm in 100 mls @ 200 mls/hr 10/08/24 14:00 10/13/24 15:06 Rocephin 2 Gm/Ns 100 Ml IVPB 200 mls/hr Q24H VU Administration Insulin Aspart 1 - 3 units 09/30/24 21:00 10/12/24 21:21 Insulin Aspart (*Bkc) 100 Units/Ml SUB-Q Not Given HS VU Protocol Insulin Aspart 3 - 6 units 10/01/24 08:00 10/13/24 11:59 Insulin Aspart (*Bkc) 100 Units/Ml SUB-Q Not Given TIDWM [facility] Protocol Metronidazole 500 mg 10/08/24 14:00 10/13/24 15:06 Metronidazole 500 Mg Tablet PO 500 mg Q8HR VU Administration Miscellaneous Information 1 each 10/10/24 00:01 10/13/24 11:24 Please Renew Morphine_. Per [employer] Procedure, It Will Discontinue If Not Renewed XX 11/09/24 00:00 Not Given CLARIFY VU Morphine Sulfate 15 mg 09/30/24 20:28 10/13/24 08:47 Morphine Sulfate (*Crx) 15 Mg Tab Ir PO 15 mg Q8H PRN Administration pain 7-10 Morphine Sulfate 15 mg 10/07/24 09:53 10/12/24 12:46 Morphine Sulfate (*Crx) 15 Mg Tab Ir PO 15 mg Q4H PRN Administration Pain Rated 7-10 Ondansetron HCl 4 mg 09/30/24 19:02 10/12/24 11:54 Ondansetron Inj 4 Mg/2 Ml Vial IV PUSH 4 mg Q4H PRN Administration Nausea Pantoprazole Sodium 40 mg 10/07/24 09:00 10/13/24 08:47 Pantoprazole 40 Mg Tablet PO 40 mg QAM VU Administration Polyethylene Glycol 17 gm 10/10/24 13:40 10/13/24 08:47 Polyethylene Glycol 3350 17 Gm Powd.Pack PO 17 gm QAM VU Administration Saccharomyces Boulardii 250 mg 10/11/24 17:00 10/13/24 08:46 Saccharomyces Boulardii 250 Mg Capsule PO 250 mg BID VU Administration Sodium Chloride 500 mg 10/06/24 17:00 10/13/24 10:57 Sodium Chloride 500 Mg Tablet PO 500 mg BID VU Administration Verapamil HCl 120 mg 09/30/24 21:00 10/13/24 08:47 Verapamil Hcl 120 Mg Tablet Immed Release PO 120 mg Q12HR VU Administration Radiology Results: ITS Impressions Abdomen/Pelvis CT 09/30/24 19:00 IMPRESSION: Gallbladder hydrops without inflammatory change. Dilated common bile duct, measuring 14 mm. No obstructing stone or mass detected. Correlate with biliary labs. 3.4 cm fusiform infrarenal abdominal aortic aneurysm. Consider follow-up in 3 years. Upper Quadrant Ultrasound 10/01/24 08:43 IMPRESSION: 1. Cholelithiasis with a normal-appearing gallbladder but with mild intra and extrahepatic biliary ductal dilation which raises concern for a nonvisualized distal obstructing choledocholithiasis. Correlate with liver function tests and if clinically indicated could consider further evaluation with either MRCP or ERCP. Hepatobiliary Scan Nuclear Medicine 10/05/24 08:35 IMPRESSION: 1. No evident gallbladder activity consistent with acute cholecystitis. Cholecystostomy 10/05/24 16:57 IMPRESSION: 1. Successful ultrasound-guided cholecystostomy tube placement. 2. 35 mL bile was sent for aerobic, anaerobic, and fungal cultures. 3. The catheter will be managed by Dr. Brennan. Chest X-Ray 10/10/24 06:58 Impression: Clear lungs. Status post aortic valve replacement, with pacemaker device. Cholangiogram 10/12/24 14:45 IMPRESSION: 1. Cholelithiasis and choledocholithiasis obstructing distal choledocholithiasis with no observed contrast emptying into the duodenum. The cystic duct is patent. Consider ERCP for stone extraction and sphincterotomy to relieve the distal ductal obstruction. Labs Labs: Laboratory Results - last 24 hr 10/12/24 10/12/24 10/13/24 17:25 20:25 05:47 WBC RBC Hgb Hct MCV MCH MCHC RDW Plt Count MPV Sodium Potassium Chloride Carbon Dioxide Anion Gap BUN Creatinine Estim Creat Clear Calc Estimated GFR Glucose POC Capillary Glucose 143 H 183 H Calcium Total Bilirubin AST ALT Alkaline Phosphatase NT-Pro-B Natriuret Pep 6850 H Total Protein Albumin 10/13/24 10/13/24 10/13/24 05:52 08:31 11:52 WBC 12.0 H RBC 2.94 L Hgb 8.5 L Hct 26.9 L MCV 91.5 MCH 28.9 MCHC 31.6 L RDW 15.2 H Plt Count 479 H MPV 8.9 Sodium 131 L Potassium 4.6 Chloride 98 Carbon Dioxide 25 Anion Gap 8 BUN 48 H Creatinine 2.74 H Estim Creat Clear Calc 21 Estimated GFR 22 L Glucose 119 H POC Capillary Glucose 115 H 146 H Calcium 8.4 Total Bilirubin 0.5 AST 27 ALT 17 Alkaline Phosphatase 97 NT-Pro-B Natriuret Pep Total Protein 6.2 L Albumin 2.8 L
[2024-10-13] MEDS: EPOETIN ALFA-EPBX 20,000 UNITS/ML VIAL 20000 UNITS SUB-Q (19:04)
[2024-10-13 22:05] VITALS: BP 110/48; PULSE 73; RESP 16; TEMP 36.4; O2SAT 97
[2024-10-14] MEDS: AMPICILLIN 2 GM/NS 100 ML 2 GM/100 ML BAG IVPB ×3 (02:28→17:13)
[2024-10-14] MEDS: MORPHINE SULFATE (*CRX) 15 MG TAB IR PO ×3 (02:29→20:25)
[2024-10-14 05:31] LABS: Hematocrit 27.0 % (42.0-52.0); Hemoglobin 8.6 g/dL (14.0-18.0); Mean Corpuscular HGB Conc 31.9 g/dl (32-36); Mean Corpuscular Hemoglobin 29.4 pg (26-34); Mean Corpuscular Volume 92.2 fl (80-100); Platelet Count Result 542 k/mm3 (150-375); Red Blood Count 2.93 M/mm3 (4.6-6.20); White Blood Count 12.6 K/mm3 (4.5-10.0)
[2024-10-14 05:53] LABS: Alanine Aminotransferase 16 U/L (6-50); Albumin Level 3.0 g/dL (3.5-5.1); Alkaline Phosphatase 80 U/L (38-126); Anion Gap 10 mmol/L (4-12); Aspartate Amino Transferase 27 U/L (17-59); Bilirubin,Total 0.6 mg/dL (0.2-1.3); Blood Urea Nitrogen 48 mg/dL (9-20); Calcium 8.5 mg/dL (8.4-10.2); Carbon Dioxide 27 mmol/L (22-30); Chloride 95 mmol/L (98-107); Estimated CRCL calculation 21 ml/min; Estimated Glomerular Filt Rate 23; Glucose 114 mg/dL (65-110); Magnesium 1.7 mg/dL (1.6-2.3); NT Pro B Type Natriuretic Pept 4900 pg/mL (19.9-100); Potassium 4.6 mmol/L (3.4-5.0); Sodium 132 mmol/L (137-145); Total Protein 6.5 g/dL (6.3-8.2)
[2024-10-14 07:26] VITALS: BP 145/57; PULSE 72; RESP 16; TEMP 36.6; O2SAT 96
--- NOTE | 2024-10-14 08:12 | PM.PNCARD ---
Progress Note: A&P Assessment and Plan (1) Chest pain: Qualifiers: Chest pain type: unspecified Qualified Code(s): R07.9 - Chest pain, unspecified Code(s): R07.9 - Chest pain, unspecified Status: Acute Assessment and Plan: Atypical. Troponin only slightly elevated at 0.090. EKG shows no ST abnormality. No ACS. (2) Hypertension: Code(s): I10 - Essential (primary) hypertension Status: Chronic Assessment and Plan: Stable. (3) Mixed hyperlipidemia: Code(s): E78.2 - Mixed hyperlipidemia Status: Acute Assessment and Plan: On Zetia. Intolerant of statins. (4) Pacemaker: Code(s): Z95.0 - Presence of cardiac pacemaker Status: Acute Assessment and Plan: Stable. Unknown device type. 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 Penn with [facility]. (5) Abdominal aortic aneurysm (AAA) 3.0 cm to 5.5 cm in diameter in male: Code(s): I71.40 - Abdominal aortic aneurysm, without rupture, unspecified Status: Acute Assessment and Plan: Stable. 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 Offered ADOLFO to r/o myxoma and vegetations this coming week if interested and he and his wanted to think about it then let me know. (7) Enterococcal bacteremia: Code(s): R78.81 - Bacteremia; B95.2 - Enterococcus as the cause of diseases classified elsewhere Status: Acute Assessment and Plan: On IV antibiotics. Possible vegetation of posterior mitral valve leaflet and annulus or calcifications. Subjective Date/time seen: 10/14/24 08:12 Interval history: No chest pain or sob. Exam Const: General: cooperative, healthy appearing and comfortable Orientation/consciousness: oriented to person, oriented to place and oriented to time Resp: Auscultation: clear to auscultation bilaterally, no crackles, no rales, no rhonchi and no wheezes Cardio: Rate: regular rate Rhythm: regular rhythm Heart sounds: no murmurs Peripheral pulses: dorsalis pedis present Neuro: General: oriented to person, oriented to place and oriented to time Extrem: Right lower extremity: edema Left lower extremity: edema Other: Mod edema of both legs Objective Data Vital Signs Vital Signs: Vital Signs - 24 hr 10/13/24 08:47 10/13/24 14:00 10/13/24 20:00 Temperature 98.2 F Pulse Rate 82 Respiratory Rate 18 Blood Pressure 140/58 L Pulse Oximetry 98 Oxygen Delivery Room Air Room Air 10/13/24 22:05 10/14/24 07:26 Temperature 97.6 F 97.8 F Pulse Rate 73 72 Respiratory Rate 16 16 Blood Pressure 110/48 L 145/57 H Pulse Oximetry 97 96 Oxygen Delivery Intake/Output Intake/Output: Intake & Output 10/11/24 10/12/24 10/13/24 10/14/24 23:59 23:59 23:59 23:59 Intake Total 1240 1390 1020 400 Output Total 880 1930 2000 2200 Balance 300 -[phone] Meds/Results Medications: Active Medications Generic Name Dose Route Start Last Admin Trade Name Freq PRN Reason Stop Dose Admin Acetaminophen 650 mg 09/30/24 19:02 10/12/24 01:13 Acetaminophen 325 Mg Tablet PO 650 mg Q4H PRN Administration Mild Pain (1-3) or Fever Albuterol 2 puff 10/03/24 15:40 10/04/24 09:06 Albuterol Sulfate (*Sp) Aerosol 1 Puff INHALATION 2 puff Q6HRT PRN Administration Shortness Of Breath Or Wheezing Clopidogrel Bisulfate 75 mg 10/01/24 09:00 10/12/24 08:42 Clopidogrel Bisulfate 75 Mg Tablet PO 75 mg DAILY VU Administration Dextrose 12.5 gm 09/30/24 20:29 Dextrose 50% 25 Gm/50 Ml Syringe IV PUSH PRN PRN Hypoglycemia Protocol Docusate Sodium 100 mg 10/01/24 09:00 10/13/24 08:46 Docusate Sodium 100 Mg Capsule PO 100 mg DAILY VU Administration Ezetimibe 10 mg 10/01/24 09:00 10/13/24 08:46 Ezetimibe 10 Mg Tablet PO 10 mg DAILY VU Administration Epoetin Gordo-epbx 10,000 units 10/14/24 09:00 Epoetin Gordo-Epbx 10,000 Units/Ml Vial SUB-Q 10/14/24 09:01 ONCE ONE Famotidine 20 mg 09/30/24 21:00 10/13/24 21:05 Famotidine 20 Mg Tablet PO 20 mg Q12HR VU Administration Finasteride 5 mg 10/01/24 09:00 10/13/24 08:46 Finasteride 5 Mg Tablet PO 5 mg DAILY VU Administration Fluticasone Propionate 2 spray 09/30/24 20:28 10/13/24 08:47 Fluticasone Propionate 0.05% Na Spr 16 Gm Btl (*Bkc) NASAL 2 spray DAILY PRN Administration allergy symptoms Furosemide 40 mg 10/09/24 09:00 10/13/24 16:52 Furosemide 40 Mg Tablet PO 40 mg BID VU Administration Glucagon 1 mg 09/30/24 20:29 Glucagon For Inj 1 Mg Vial IM PRN PRN Hypoglycemia Protocol Glucose 15 gm 09/30/24 20:29 Glucose Oral Gel 15 Gm Of Glucse In 37.5 Gm Tube PO PRN PRN Hypoglycemia Protocol Guaifenesin 600 mg 10/11/24 21:00 10/13/24 21:05 Guaifenesin 12 Hr 600 Mg Tabcr PO 10/18/24 20:59 600 mg Q12HR VU Administration Heparin Sodium (Porcine) 5,000 units 09/30/24 21:00 10/13/24 21:05 Heparin Sodium 5,000 Units/Ml Vial SUB-Q 5,000 units Q12HR VU Administration Dextrose 1,000 mls @ 100 mls/hr 09/30/24 20:29 Dextrose 5% 1,000 Ml IVPB PRN PRN Hypoglycemia Protocol Ampicillin Sodium 2 gm in 100 mls @ 200 mls/hr 10/07/24 10:00 10/14/24 02:28 Ampicillin 2 Gm/Ns 100 Ml IVPB 200 mls/hr Q8H VU Administration Ceftriaxone Sodium 2 gm in 100 mls @ 200 mls/hr 10/08/24 14:00 10/13/24 15:06 Rocephin 2 Gm/Ns 100 Ml IVPB 200 mls/hr Q24H VU Administration Insulin Aspart 1 - 3 units 09/30/24 21:00 10/14/24 02:32 Insulin Aspart (*Bkc) 100 Units/Ml SUB-Q Not Given HS VU Protocol Insulin Aspart 3 - 6 units 10/01/24 08:00 10/13/24 17:30 Insulin Aspart (*Bkc) 100 Units/Ml SUB-Q Not Given TIDWM [facility] Protocol Metronidazole 500 mg 10/08/24 14:00 10/14/24 05:55 Metronidazole 500 Mg Tablet PO 500 mg Q8HR VU Administration Miscellaneous Information 1 each 10/10/24 00:01 10/13/24 11:24 Please Renew Morphine_. Per [employer] Procedure, It Will Discontinue If Not Renewed XX 11/09/24 00:00 Not Given CLARIFY VU Morphine Sulfate 15 mg 09/30/24 20:28 10/14/24 02:29 Morphine Sulfate (*Crx) 15 Mg Tab Ir PO 15 mg Q8H PRN Administration pain 7-10 Morphine Sulfate 15 mg 10/07/24 09:53 10/12/24 12:46 Morphine Sulfate (*Crx) 15 Mg Tab Ir PO 15 mg Q4H PRN Administration Pain Rated 7-10 Ondansetron HCl 4 mg 09/30/24 19:02 10/12/24 11:54 Ondansetron Inj 4 Mg/2 Ml Vial IV PUSH 4 mg Q4H PRN Administration Nausea Pantoprazole Sodium 40 mg 10/07/24 09:00 10/13/24 08:47 Pantoprazole 40 Mg Tablet PO 40 mg QAM VU Administration Polyethylene Glycol 17 gm 10/10/24 13:40 10/13/24 08:47 Polyethylene Glycol 3350 17 Gm Powd.Pack PO 17 gm QAM VU Administration Saccharomyces Boulardii 250 mg 10/11/24 17:00 10/13/24 16:52 Saccharomyces Boulardii 250 Mg Capsule PO 250 mg BID VU Administration Sodium Chloride 500 mg 10/06/24 17:00 10/13/24 16:52 Sodium Chloride 500 Mg Tablet PO 500 mg BID VU Administration Verapamil HCl 120 mg 09/30/24 21:00 10/13/24 21:05 Verapamil Hcl 120 Mg Tablet Immed Release PO 120 mg Q12HR VU Administration Radiology Results: ITS Impressions Abdomen/Pelvis CT 09/30/24 19:00 IMPRESSION: Gallbladder hydrops without inflammatory change. Dilated common bile duct, measuring 14 mm. No obstructing stone or mass detected. Correlate with biliary labs. 3.4 cm fusiform infrarenal abdominal aortic aneurysm. Consider follow-up in 3 years. Upper Quadrant Ultrasound 10/01/24 08:43 IMPRESSION: 1. Cholelithiasis with a normal-appearing gallbladder but with mild intra and extrahepatic biliary ductal dilation which raises concern for a nonvisualized distal obstructing choledocholithiasis. Correlate with liver function tests and if clinically indicated could consider further evaluation with either MRCP or ERCP. Hepatobiliary Scan Nuclear Medicine 10/05/24 08:35 IMPRESSION: 1. No evident gallbladder activity consistent with acute cholecystitis. Cholecystostomy 10/05/24 16:57 IMPRESSION: 1. Successful ultrasound-guided cholecystostomy tube placement. 2. 35 mL bile was sent for aerobic, anaerobic, and fungal cultures. 3. The catheter will be managed by Dr. Brennan. Chest X-Ray 10/10/24 06:58 Impression: Clear lungs. Status post aortic valve replacement, with pacemaker device. Cholangiogram 10/12/24 14:45 IMPRESSION: 1. Cholelithiasis and choledocholithiasis obstructing distal choledocholithiasis with no observed contrast emptying into the duodenum. The cystic duct is patent. Consider ERCP for stone extraction and sphincterotomy to relieve the distal ductal obstruction. Labs Labs: Laboratory Results - last 24 hr 10/13/24 10/13/24 10/13/24 05:47 08:31 11:52 WBC RBC Hgb Hct MCV MCH MCHC RDW Plt Count MPV Sodium Potassium Chloride Carbon Dioxide Anion Gap BUN Creatinine Estim Creat Clear Calc Estimated GFR Glucose POC Capillary Glucose 115 H 146 H Calcium Magnesium Total Bilirubin AST ALT Alkaline Phosphatase NT-Pro-B Natriuret Pep 6850 H Total Protein Albumin 10/13/24 10/13/24 10/14/24 17:27 21:47 04:40 WBC 12.6 H RBC 2.93 L Hgb 8.6 L Hct 27.0 L MCV 92.2 MCH 29.4 MCHC 31.9 L RDW 15.2 H Plt Count 542 H MPV 9.2 Sodium 132 L Potassium 4.6 Chloride 95 L Carbon Dioxide 27 Anion Gap 10 BUN 48 H Creatinine 2.68 H Estim Creat Clear Calc 21 Estimated GFR 23 L Glucose 114 H POC Capillary Glucose 136 H 138 H Calcium 8.5 Magnesium 1.7 Total Bilirubin 0.6 AST 27 ALT 16 Alkaline Phosphatase 80 NT-Pro-B Natriuret Pep 4900 H Total Protein 6.5 Albumin 3.0 L
[2024-10-14 08:33] VITALS: PULSE 72; RESP 16; O2SAT 96
[2024-10-14] MEDS: FAMOTIDINE 20 MG TABLET PO ×2 (08:33→20:26)
[2024-10-14] MEDS: SACCHAROMYCES BOULARDII 250 MG CAPSULE PO ×2 (08:33→17:12)
[2024-10-14] MEDS: FLUTICASONE PROPIONATE 0.05% NA SPR 16 GM BTL (*BKC) 2 SPRAY NASAL (08:33)
[2024-10-14] MEDS: SODIUM CHLORIDE 500 MG TABLET PO ×2 (08:34→17:12)
[2024-10-14] MEDS: PANTOPRAZOLE 40 MG TABLET PO (08:34)
[2024-10-14] MEDS: EZETIMIBE 10 MG TABLET PO (08:34)
[2024-10-14] MEDS: guaiFENesin 12 HR 600 MG TABCR PO ×2 (08:34→20:26)
[2024-10-14] MEDS: FINASTERIDE 5 MG TABLET PO (08:34)
[2024-10-14] MEDS: VERAPAMIL HCL 120 MG TABLET IMMED RELEASE PO ×2 (08:34→20:26)
[2024-10-14] MEDS: FUROSEMIDE 40 MG TABLET PO ×2 (08:34→17:12)
[2024-10-14] MEDS: DOCUSATE SODIUM 100 MG CAPSULE PO (08:34)
--- NOTE | 2024-10-14 09:04 | P.PNGI_ITS ---
Progress Note: A&P Assessment and Plan (1) Enterococcal bacteremia: Code(s): R78.81 - Bacteremia; B95.2 - Enterococcus as the cause of diseases classified elsewhere Status: Acute Assessment and Plan: probably source is cholangitis (he is post cholecystostomy tube and cholangiogram noted retained stone in bile duct) he will need ERCP, will attempt tomorrow (plavix has been on hold, will also hold heparin today), continue with iv abx hemodynamically stable, liver enzymes normal, no more abdominal pain and he is comfortable. calcifications in valve, patient will get ADOLFO to rule out vegetations because of bacteremia (2) Cholangitis: Code(s): K83.09 - Other cholangitis Status: Acute Assessment and Plan: will need ercp, Dr Palma is coming back tomorrow (3) Choledocholithiasis with acute cholecystitis: Code(s): K80.42 - Calculus of bile duct with acute cholecystitis without obstruction Status: Acute Assessment and Plan: ercp (4) Antiplatelet or antithrombotic long-term use: Code(s): Z79.02 - senior living (current) use of antithrombotics/antiplatelets Status: Acute Assessment and Plan: meds on hold (5) Type 2 diabetes mellitus with hyperglycemia, without long-term current use of insulin: Code(s): E11.65 - Type 2 diabetes mellitus with hyperglycemia Status: Chronic (6) Acute kidney injury superimposed on CKD: Code(s): N17.9 - Acute kidney failure, unspecified; N18.9 - Chronic kidney disease, unspecified Status: Acute Subjective Date/time seen: 10/14/24 09:04 Interval history: no major changes, he is comfortable Review of Systems Review of Systems: All systems reviewed & are unremarkable except as noted in HPI and below Exam Const: General: comfortable and no acute distress HENMT: Face/Nose/Sinus: Normal nares present Eyes: Sclera: sclerae normal Neck: Neck: supple Resp: Effort & Inspection: normal respiratory effort Auscultation: clear to auscultation bilaterally Cardio: Rate: regular rate Rhythm: regular rhythm GI: GI Palp: Yes Soft to palpation and No Guarding due to palpation present (GI) Auscultation: normal bowel sounds Other: Cholecystostomy tube with bile colored drainage. Skin: General skin exam: normal color Neuro: Speech: normal speech Extrem: General: pedal edema bilaterally 2+ Psych: Mental Status: mental status grossly normal Affect: normal affect Objective Data Vital Signs Vital Signs: Vital Signs - 24 hr 10/13/24 14:00 10/13/24 20:00 10/13/24 22:05 Temperature 98.2 F 97.6 F Pulse Rate 82 73 Respiratory Rate 18 16 Blood Pressure 140/58 L 110/48 L Pulse Oximetry 98 97 Oxygen Delivery Room Air 10/14/24 07:26 Temperature 97.8 F Pulse Rate 72 Respiratory Rate 16 Blood Pressure 145/57 H Pulse Oximetry 96 Oxygen Delivery Intake/Output Intake/Output: Intake & Output 10/11/24 10/12/24 10/13/24 10/14/24 23:59 23:59 23:59 23:59 Intake Total 1240 1390 1020 400 Output Total 880 1930 2000 2200 Balance [phone] -[phone] Meds/Results Medications: Active Medications Generic Name Dose Route Start Last Admin Trade Name Freq PRN Reason Stop Dose Admin Acetaminophen 650 mg 09/30/24 19:02 10/12/24 01:13 Acetaminophen 325 Mg Tablet PO 650 mg Q4H PRN Administration Mild Pain (1-3) or Fever Albuterol 2 puff 10/03/24 15:40 10/04/24 09:06 Albuterol Sulfate (*Sp) Aerosol 1 Puff INHALATION 2 puff Q6HRT PRN Administration Shortness Of Breath Or Wheezing Clopidogrel Bisulfate 75 mg 10/01/24 09:00 10/12/24 08:42 Clopidogrel Bisulfate 75 Mg Tablet PO 75 mg DAILY VU Administration Dextrose 12.5 gm 09/30/24 20:29 Dextrose 50% 25 Gm/50 Ml Syringe IV PUSH PRN PRN Hypoglycemia Protocol Docusate Sodium 100 mg 10/01/24 09:00 10/14/24 08:34 Docusate Sodium 100 Mg Capsule PO 100 mg DAILY VU Administration Ezetimibe 10 mg 10/01/24 09:00 10/14/24 08:34 Ezetimibe 10 Mg Tablet PO 10 mg DAILY VU Administration Famotidine 20 mg 09/30/24 21:00 10/14/24 08:33 Famotidine 20 Mg Tablet PO 20 mg Q12HR VU Administration Finasteride 5 mg 10/01/24 09:00 10/14/24 08:34 Finasteride 5 Mg Tablet PO 5 mg DAILY VU Administration Fluticasone Propionate 2 spray 09/30/24 20:28 10/14/24 08:33 Fluticasone Propionate 0.05% Na Spr 16 Gm Btl (*Bkc) NASAL 2 spray DAILY PRN Administration allergy symptoms Furosemide 40 mg 10/09/24 09:00 10/14/24 08:34 Furosemide 40 Mg Tablet PO 40 mg BID VU Administration Glucagon 1 mg 09/30/24 20:29 Glucagon For Inj 1 Mg Vial IM PRN PRN Hypoglycemia Protocol Glucose 15 gm 09/30/24 20:29 Glucose Oral Gel 15 Gm Of Glucse In 37.5 Gm Tube PO PRN PRN Hypoglycemia Protocol Guaifenesin 600 mg 10/11/24 21:00 10/14/24 08:34 Guaifenesin 12 Hr 600 Mg Tabcr PO 10/18/24 20:59 600 mg Q12HR VU Administration Heparin Sodium (Porcine) 5,000 units 09/30/24 21:00 10/14/24 08:34 Heparin Sodium 5,000 Units/Ml Vial SUB-Q 5,000 units Q12HR VU Administration Dextrose 1,000 mls @ 100 mls/hr 09/30/24 20:29 Dextrose 5% 1,000 Ml IVPB PRN PRN Hypoglycemia Protocol Ampicillin Sodium 2 gm in 100 mls @ 200 mls/hr 10/07/24 10:00 10/14/24 02:28 Ampicillin 2 Gm/Ns 100 Ml IVPB 200 mls/hr Q8H VU Administration Ceftriaxone Sodium 2 gm in 100 mls @ 200 mls/hr 10/08/24 14:00 10/13/24 15:06 Rocephin 2 Gm/Ns 100 Ml IVPB 200 mls/hr Q24H VU Administration Insulin Aspart 1 - 3 units 09/30/24 21:00 10/14/24 02:32 Insulin Aspart (*Bkc) 100 Units/Ml SUB-Q Not Given HS VU Protocol Insulin Aspart 3 - 6 units 10/01/24 08:00 10/14/24 08:30 Insulin Aspart (*Bkc) 100 Units/Ml SUB-Q Not Given TIDWM VU Protocol Metronidazole 500 mg 10/08/24 14:00 10/14/24 05:55 Metronidazole 500 Mg Tablet PO 500 mg Q8HR VU Administration Miscellaneous Information 1 each 10/10/24 00:01 10/13/24 11:24 Please Renew Morphine_. Per [employer] Procedure, It Will Discontinue If Not Renewed XX 11/09/24 00:00 Not Given CLARIFY VU Morphine Sulfate 15 mg 09/30/24 20:28 10/14/24 02:29 Morphine Sulfate (*Crx) 15 Mg Tab Ir PO 15 mg Q8H PRN Administration pain 7-10 Morphine Sulfate 15 mg 10/07/24 09:53 10/12/24 12:46 Morphine Sulfate (*Crx) 15 Mg Tab Ir PO 15 mg Q4H PRN Administration Pain Rated 7-10 Ondansetron HCl 4 mg 09/30/24 19:02 10/12/24 11:54 Ondansetron Inj 4 Mg/2 Ml Vial IV PUSH 4 mg Q4H PRN Administration Nausea Pantoprazole Sodium 40 mg 10/07/24 09:00 10/14/24 08:34 Pantoprazole 40 Mg Tablet PO 40 mg QAM VU Administration Polyethylene Glycol 17 gm 10/10/24 13:40 10/14/24 08:34 Polyethylene Glycol 3350 17 Gm Powd.Pack PO 17 gm QAM VU Administration Saccharomyces Boulardii 250 mg 10/11/24 17:00 10/14/24 08:33 Saccharomyces Boulardii 250 Mg Capsule PO 250 mg BID VU Administration Sodium Chloride 500 mg 10/06/24 17:00 10/14/24 08:34 Sodium Chloride 500 Mg Tablet PO 500 mg BID VU Administration Verapamil HCl 120 mg 09/30/24 21:00 10/14/24 08:34 Verapamil Hcl 120 Mg Tablet Immed Release PO 120 mg Q12HR VU Administration Radiology Results: ITS Impressions Abdomen/Pelvis CT 09/30/24 19:00 IMPRESSION: Gallbladder hydrops without inflammatory change. Dilated common bile duct, measuring 14 mm. No obstructing stone or mass detected. Correlate with biliary labs. 3.4 cm fusiform infrarenal abdominal aortic aneurysm. Consider follow-up in 3 years. Upper Quadrant Ultrasound 10/01/24 08:43 IMPRESSION: 1. Cholelithiasis with a normal-appearing gallbladder but with mild intra and extrahepatic biliary ductal dilation which raises concern for a nonvisualized distal obstructing choledocholithiasis. Correlate with liver function tests and if clinically indicated could consider further evaluation with either MRCP or ERCP. Hepatobiliary Scan Nuclear Medicine 10/05/24 08:35 IMPRESSION: 1. No evident gallbladder activity consistent with acute cholecystitis. Cholecystostomy 10/05/24 16:57 IMPRESSION: 1. Successful ultrasound-guided cholecystostomy tube placement. 2. 35 mL bile was sent for aerobic, anaerobic, and fungal cultures. 3. The catheter will be managed by Dr. Brennan. Chest X-Ray 10/10/24 06:58 Impression: Clear lungs. Status post aortic valve replacement, with pacemaker device. Cholangiogram 10/12/24 14:45 IMPRESSION: 1. Cholelithiasis and choledocholithiasis obstructing distal choledocholithiasis with no observed contrast emptying into the duodenum. The cystic duct is patent. Consider ERCP for stone extraction and sphincterotomy to relieve the distal duct al obstruction. Labs Labs: Laboratory Results - last 24 hr 10/13/24 10/13/24 10/13/24 11:52 17:27 21:47 WBC RBC Hgb Hct MCV MCH MCHC RDW Plt Count MPV Sodium Potassium Chloride Carbon Dioxide Anion Gap BUN Creatinine Estim Creat Clear Calc Estimated GFR Glucose POC Capillary Glucose 146 H 136 H 138 H Calcium Magnesium Total Bilirubin AST ALT Alkaline Phosphatase NT-Pro-B Natriuret Pep Total Protein Albumin 10/14/24 10/14/24 04:40 08:12 WBC 12.6 H RBC 2.93 L Hgb 8.6 L Hct 27.0 L MCV 92.2 MCH 29.4 MCHC 31.9 L RDW 15.2 H Plt Count 542 H MPV 9.2 Sodium 132 L Potassium 4.6 Chloride 95 L Carbon Dioxide 27 Anion Gap 10 BUN 48 H Creatinine 2.68 H Estim Creat Clear Calc 21 Estimated GFR 23 L Glucose 114 H POC Capillary Glucose 104 Calcium 8.5 Magnesium 1.7 Total Bilirubin 0.6 AST 27 ALT 16 Alkaline Phosphatase 80 NT-Pro-B Natriuret Pep 4900 H Total Protein 6.5 Albumin 3.0 L
[2024-10-14] MEDS: EPOETIN ALFA-EPBX 10,000 UNITS/ML VIAL 10000 UNITS SUB-Q (10:32)
--- NOTE | 2024-10-14 10:48 | P.PNNP_ITS ---
Progress Note: A&P Assessment and Plan (1) Acute kidney injury: Code(s): N17.9 - Acute kidney failure, unspecified Status: Acute Assessment and Plan: * improvement noted if not relatively stable * as noted on admission * complicated by significant azotemia/elevated BUN on admission (see #3) * s/p holding diuretics and trial of IVFs * evaluation to date noted: * admission CT of A/P with no suspicious mass, obstructing stone, or hydronephrosis * prerenal urine electrolytes (by FeUrea) * urine eosinophils negative * mild proteinuria * normal/low CPK * UA without evidence of infection * suspect multifactorial etiology: * prerenal factors * overdiuresis * infection (bacteremia + cholecystitis) * other(?) * resumed on diuretic therapy (on 10/12) * follow trend of repeat labs and UOP (2) Stage 4 chronic kidney disease: Code(s): N18.4 - Chronic kidney disease, stage 4 (severe) Status: Chronic Assessment and Plan: * slow and progressive decline noted * GFR ~ 22 to 23 in * GFR ~ 20 to 21 in * GFR ~ 18 by July 2024 labs * creatinine has been running anywhere from 2.4 - 3.2mg/dl in the last 6 months * creatinine on 09/27/24 (outpatient labs) = 3.93mg/dl (GFR 15) -- but this may have related to his acute medical issues noted on admission * most likely due to diabetes and hypertension + chronic diuretic therapy (3) Azotemia: Code(s): R79.89 - Other specified abnormal findings of blood chemistry Status: Acute Assessment and Plan: * slow improvement noted if not stable * noted on admission * suspected related to diuretic therapy * however, underlying infection (see #4) likely a contributing factor as well... 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, 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 * moderate to severe mitral valve regurgitation * circumferential echogenic mass measuring 1.4 cm x 0.8 cm attached to left atrial side of mitral valve annulus which probably calcified mass; there is an additional small calcified echogenic mass attached to left ventricular side of posterior mitral valve leaflet -- probably calcifications more likely than vegetations; consider ADOLFO if clinically indicated * mild tricuspid valve regurgitation * mild pulmonary hypertension, estimated pulmonary arterial systolic pressure is 40 mmHg * trace pulmonic regurgitation * Cardiology following -- possible ADOLFO if patient agreeable... * repeat blood cultures (10/08) negative (5) Gallbladder hydrops: Code(s): K82.1 - Hydrops of gallbladder Status: Acute Assessment and Plan: * CT of A/P without overt acute cholecystitis * however, did have significant right upper quadrant pain on palpation with nausea and decreased oral intake * RUQ ultrasound results noted as well * LFTs normal * GI recommendations noted * Surgery following * s/p cholecystostomy tube placement (on 10/05) * will eventually need cholecystectomy * cholangiogram (10/12) suggestive of retained stone in bile duct -- ERCP planned for tomorrow per GI * continue supportive therapy (6) Anemia: Code(s): D64.9 - Anemia, unspecified Status: Acute Assessment and Plan: * due to combo of LEROY, CKD, acute illness/infection and possibly previous IVFs * dose with Epogen while hospitalized * follow trend of H/H (7) Hypertension: Code(s): I10 - Essential (primary) hypertension Status: Chronic Assessment and Plan: * reasonable control * follow trend of hemodynamics (8) Type 2 diabetes mellitus with hyperglycemia, without long-term current use of insulin: Code(s): E11.65 - Type 2 diabetes mellitus with hyperglycemia Status: Chronic Assessment and Plan: * follow accu-cheks * glycemic control per hospitalist Will continue to follow. L Subjective Date/time seen: 10/14/24 10:48 Interval history: Follow-up for acute kidney injury/acute renal failure on chronic kidney disease. Renal function/creatinine remains stable if not better at this time with ongoing diuretic therapy along with good urine output; seen by Cardiology yesterday given Echo findings; noted plans for ERCP tomorrow per GI; he otherwise appears to be fairly comfortable at the time of my visit other than mild right-sided abdominal pain. Exam 2 Narrative: General: elderly but WD/WN male in NAD Heart: normal S1 and S2; no rub Lungs: clear anteriorly Abdomen: soft, nontender, nondistended, positive bowel sounds Extremities: no cyanosis or clubbing; trace - 1+ edema Skin: no rash Objective Data Vital Signs Vital Signs: Vital Signs Temp Pulse Resp BP Pulse Ox O2 Del Method FiO2 10/14/24 08:33 72 16 96 Room Air 21 10/14/24 07:26 97.8 F 72 16 145/57 H 96 10/13/24 22:05 97.6 F 73 16 110/48 L 97 10/13/24 20:00 Room Air 10/13/24 14:00 98.2 F 82 18 140/58 L 98 Intake/Output Intake/Output: Intake & Output 10/11/24 10/12/24 10/13/24 10/14/24 23:59 23:59 23:59 23:59 Intake Total 1240 1390 1020 620 Output Total 880 1930 2000 2260 Balance 971 -104 -980 -3623 Meds/Results Medications: Active Medications Generic Name Dose Route Start Last Admin Trade Name Freq PRN Reason Stop Dose Admin Acetaminophen 650 mg 09/30/24 19:02 10/12/24 01:13 Acetaminophen 325 Mg Tablet PO 650 mg Q4H PRN Administration Mild Pain (1-3) or Fever Albuterol 2 puff 10/03/24 15:40 10/04/24 09:06 Albuterol Sulfate (*Sp) Aerosol 1 Puff INHALATION 2 puff Q6HRT PRN Administration Shortness Of Breath Or Wheezing Clopidogrel Bisulfate 75 mg 10/01/24 09:00 10/12/24 08:42 Clopidogrel Bisulfate 75 Mg Tablet PO 75 mg DAILY VU Administration Dextrose 12.5 gm 09/30/24 20:29 Dextrose 50% 25 Gm/50 Ml Syringe IV PUSH PRN PRN Hypoglycemia Protocol Docusate Sodium 100 mg 10/01/24 09:00 10/14/24 08:34 Docusate Sodium 100 Mg Capsule PO 100 mg DAILY VU Administration Ezetimibe 10 mg 10/01/24 09:00 10/14/24 08:34 Ezetimibe 10 Mg Tablet PO 10 mg DAILY VU Administration Famotidine 20 mg 09/30/24 21:00 10/14/24 08:33 Famotidine 20 Mg Tablet PO 20 mg Q12HR VU Administration Finasteride 5 mg 10/01/24 09:00 10/14/24 08:34 Finasteride 5 Mg Tablet PO 5 mg DAILY VU Administration Fluticasone Propionate 2 spray 09/30/24 20:28 10/14/24 08:33 Fluticasone Propionate 0.05% Na Spr 16 Gm Btl (*Bkc) NASAL 2 spray DAILY PRN Administration allergy symptoms Furosemide 40 mg 10/09/24 09:00 10/14/24 08:34 Furosemide 40 Mg Tablet PO 40 mg BID VU Administration Glucagon 1 mg 09/30/24 20:29 Glucagon For Inj 1 Mg Vial IM PRN PRN Hypoglycemia Protocol Glucose 15 gm 09/30/24 20:29 Glucose Oral Gel 15 Gm Of Glucse In 37.5 Gm Tube PO PRN PRN Hypoglycemia Protocol Guaifenesin 600 mg 10/11/24 21:00 10/14/24 08:34 Guaifenesin 12 Hr 600 Mg Tabcr PO 10/18/24 20:59 600 mg Q12HR VU Administration Heparin Sodium (Porcine) 5,000 units 09/30/24 21:00 10/14/24 08:34 Heparin Sodium 5,000 Units/Ml Vial SUB-Q 5,000 units Q12HR VU Administration Dextrose 1,000 mls @ 100 mls/hr 09/30/24 20:29 Dextrose 5% 1,000 Ml IVPB PRN PRN Hypoglycemia Protocol Ampicillin Sodium 2 gm in 100 mls @ 200 mls/hr 10/07/24 10:00 10/14/24 10:31 Ampicillin 2 Gm/Ns 100 Ml IVPB 200 mls/hr Q8H VU Administration Ceftriaxone Sodium 2 gm in 100 mls @ 200 mls/hr 10/08/24 14:00 10/13/24 15:06 Rocephin 2 Gm/Ns 100 Ml IVPB 200 mls/hr Q24H VU Administration Insulin Aspart 1 - 3 units 09/30/24 21:00 10/14/24 02:32 Insulin Aspart (*Bkc) 100 Units/Ml SUB-Q Not Given HS VU Protocol Insulin Aspart 3 - 6 units 10/01/24 08:00 10/14/24 08:30 Insulin Aspart (*Bkc) 100 Units/Ml SUB-Q Not Given TIDWM [facility] Protocol Metronidazole 500 mg 10/08/24 14:00 10/14/24 05:55 Metronidazole 500 Mg Tablet PO 500 mg Q8HR VU Administration Morphine Sulfate 15 mg 09/30/24 20:28 10/14/24 10:43 Morphine Sulfate (*Crx) 15 Mg Tab Ir PO 15 mg Q8H PRN Administration pain 7-10 Morphine Sulfate 15 mg 10/07/24 09:53 10/12/24 12:46 Morphine Sulfate (*Crx) 15 Mg Tab Ir PO 15 mg Q4H PRN Administration Pain Rated 7-10 Ondansetron HCl 4 mg 09/30/24 19:02 10/12/24 11:54 Ondansetron Inj 4 Mg/2 Ml Vial IV PUSH 4 mg Q4H PRN Administration Nausea Pantoprazole Sodium 40 mg 10/07/24 09:00 10/14/24 08:34 Pantoprazole 40 Mg Tablet PO 40 mg QAM VU Administration Polyethylene Glycol 17 gm 10/10/24 13:40 10/14/24 08:34 Polyethylene Glycol 3350 17 Gm Powd.Pack PO 17 gm QAM VU Administration Saccharomyces Boulardii 250 mg 10/11/24 17:00 10/14/24 08:33 Saccharomyces Boulardii 250 Mg Capsule PO 250 mg BID VU Administration Sodium Chloride 500 mg 10/06/24 17:00 10/14/24 08:34 Sodium Chloride 500 Mg Tablet PO 500 mg BID VU Administration Verapamil HCl 120 mg 09/30/24 21:00 10/14/24 08:34 Verapamil Hcl 120 Mg Tablet Immed Release PO 120 mg Q12HR VU Administration Radiology Results: ITS Impressions Abdomen/Pelvis CT 09/30/24 19:00 IMPRESSION: Gallbladder hydrops without inflammatory change. Dilated common bile duct, measuring 14 mm. No obstructing stone or mass detected. Correlate with biliary labs. 3.4 cm fusiform infrarenal abdominal aortic aneurysm. Consider follow-up in 3 years. Upper Quadrant Ultrasound 10/01/24 08:43 IMPRESSION: 1. Cholelithiasis with a normal-appearing gallbladder but with mild intra and extrahepatic biliary ductal dilation which raises concern for a nonvisualized distal obstructing choledocholithiasis. Correlate with liver function tests and if clinically indicated could consider further evaluation with either MRCP or ERCP. Hepatobiliary Scan Nuclear Medicine 10/05/24 08:35 IMPRESSION: 1. No evident gallbladder activity consistent with acute cholecystitis. Cholecystostomy 10/05/24 16:57 IMPRESSION: 1. Successful ultrasound-guided cholecystostomy tube placement. 2. 35 mL bile was sent for aerobic, anaerobic, and fungal cultures. 3. The catheter will be managed by Dr. Brennan. Chest X-Ray 10/10/24 06:58 Impression: Clear lungs. Status post aortic valve replacement, with pacemaker device. Cholangiogram 10/12/24 14:45 IMPRESSION: 1. Cholelithiasis and choledocholithiasis obstructing distal choledocholithiasis with no observed contrast emptying into the duodenum. The cystic duct is patent. Consider ERCP for stone extraction and sphincterotomy to relieve the distal ductal obstruction. Labs Labs: Laboratory Tests 10/14/24 04:40 10/14/24 04:40 Calcium 8.5 Magnesium 1.7 Total Bilirubin 0.6 AST 27 ALT 16 Alkaline Phosphatase 80 NT-Pro-B Natriuret Pep 4900 H Total Protein 6.5 Albumin 3.0 L Microbiology 10/08/24 04:55 Blood Blood Culture - Final 10/08/24 04:55 Blood Blood Culture - Final
--- NOTE | 2024-10-14 13:05 | P.PNIM_ITS ---
Progress Note: A&P Assessment and Plan (1) Chest pain: Qualifiers: Chest pain type: unspecified Qualified Code(s): R07.9 - Chest pain, unspecified Code(s): R07.9 - Chest pain, unspecified Status: Acute Assessment and Plan: -Chest pain seems atypical in nature, pt continue to deny CP. -Troponin are elevated but flat. Will complete troponin series. -Pain seems more consistent with GI cause with reported indigestion and significant right upper quadrant pain. -Will continue Antihypertensives and Plavix. -->HOLD Plavix starting 10/05 for eventual lap torrie per surg 10/07: Per surg: No longer plan to proceed with cholecystectomy this week. Patient to ill with sepsis and bacteremia as well as acute on chronic renal failure. Will resume Plavix today. Pt continues to deny CP/SOB or any other worrisome sx. (2) Acute kidney injury superimposed on CKD: Code(s): N17.9 - Acute kidney failure, unspecified; N18.9 - Chronic kidney disease, unspecified Status: Acute Assessment and Plan: Patient has chronic kidney disease stage 4 with acute kidney injury. Most likely prerenal due to intervascular volume depletion. - Hold Lasix and continue IV fluid hydration at 75ml/hr. - Nephrology was consulted from the ER. - Continue flomax 10/02- cr/bun 2.96/100 10/03: Cr/BUN: 3.26/91, pending neph rounds due to worsening Cr 10/04: Cr/BUN: 3.43/90, Started IVF again today, continue to hold lasix 10/05: Cr/BUN: 3.54/[address] Lopez today, he believes that once the torrie tube is placed and with IV abx on board, kidney labs should begin to normalize back to pt baseline which is CKD4. Will continue to monitor levels. Dr. Lopez on for the weekend. 10/06: Cr/BUN: 2.84/84, starting to trend down, will continue to monitor daily IVF D/C due to better trending kidneys, lasix still on hold (no pulm congestion), and adequate intake. 10/07: Kidney levels continuing to improve Cr/BUN: 2.33/27 -If continues to improve, will start Lasix back up tomorrow. at the bedside today concerned for his BLE edema, which has not worsened per my exam. Pt also denies CP/SOB. 10/08: Kidney levels continuing to improve Cr/BUN: 2.15/59 -Lasix restarted today 10/09 daily: Cr/BUN: 2.41/55 Per neph 10/08: * slow and progressive decline noted * GFR ~ 22 to 23 in * GFR ~ 20 to 21 in 2022/2023 * GFR ~ 18 by July 2024 labs * creatinine has been running anywhere from 2.4 - 3.2mg/dl in the last 6 months * creatinine on 09/27/24 (outpatient labs) = 3.93mg/dl (GFR 15) -- but this may have related to his acute medical issues currently * most likely due to diabetes and hypertension + chronic diuretic therapy go to the 10/10: Cr/BUN: 2.84/57. Nephrology following, appreciate recommendations. 10/11: Cr/BUN 3.02/55. Nephrology following, appreciate recommendations. 10/12: Cr/BUN 2.99/53. Nephrology following, appreciate recommendations. 10/13: Cr/BUN 2.74/48. Nephrology following, appreciate recommendations. 10/14: Cr/BUN 2.68/48. Nephrology following, appreciate recommendations. (3) Acute uremia: Code(s): N19 - Unspecified kidney failure Status: Acute Assessment and Plan: Possibly due to hypovolemia. GI bleed is less likely given patient's hemoglobin is stable at 12 in ED and patient denies symptoms of hematemesis hematochezia or melena. Pt continues to deny any blood loss. -Will hold Lasix and continue IV fluid hydration and repeat CBC and electrolyte panel in a.m. -Decrease IV fluids to 50 ml and monitor I/O closely 10/03: -H/H as of 10/03: 9.6/30.5 -Pt appetite still decreased, continue IVF 50/hr 10/04: -H/H 9.830.5 -Started again on IVF to try to normalize creat, pt will be NPO at [place] anyway for procedure tomorrow. 10/05: -H/H 9.9/31.3 -IVF down to 75 ml/hr for NPO status and to avoid pulm edema Spoke to Dr. Lopez today, he believes that once the torrie tube is placed and with IV abx on board, kidney labs should begin to normalize back to pt baseline which is CKD4. Will continue to monitor levels. Dr. Lopez on for the weekend. 10/06: -H/H 10.8/35.4 -IVF stopped today, appetite better 10/07: -H/H: 9.7/29.8 10/08: -H/H: 10.3/31.7 10/10: -H/H 9.1/28.4. 10/11: H&H 9.1/28.0. 10/12: H&H 8.6/27.2. 10/13: H&H 8.5/26.9. 10/14: H&H 8.6/27.0. (4) Gallbladder hydrops: Code(s): K82.1 - Hydrops of gallbladder Status: Acute Assessment and Plan: CT does not suggest overt acute cholecystitis but patient does have significant kit right upper quadrant pain on palpation and worsening of his nausea with palpation of right upper quadrant. -RUQ US for better visualization of the gallbladder: 1. Cholelithiasis with a normal-appearing gallbladder but with mild intra and extrahepatic biliary ductal dilation which raises concern for a nonvisualized distal obstructing choledocholithiasis. Correlate with liver function tests and if clinically indicated could consider further evaluation with either MRCP or ERCP. -->Consulted GI 10/03, pending recs/rounding -Bilirubin and transaminases are normal. -Patient does have some leukocytosis but no fever. -Will hold off on adding antibiotic coverage at this time and will repeat CBC in a.m. 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 His symptoms are likely related to his gallbadder and there is concern for choledocholithiasis given his common bile duct dilatation on imaging. Since his Plavix has been continued, he would not be a candidate for a laparoscopic cholecystectomy at this time. He received his last dose of Plavix this morning, which I have put on hold. Since he continues to have symptoms, we would recommend proceeding with percutaneous cholecystostomy tube placement to treat his cholecystitis. We will eventually consider proceeding with a laparoscopic cholecystectomy with intraoperative cholangiogram to evaluate for choledocholithiasis, but this will be at a later date, possibly as an outpatient depending on how he is progressing medically, when his Plavix can be held for an adequate amount of time. This would also allow time for improved medical optimization in regards to his renal failure and pulmonary edema. Will repeat labs tomorrow and include a CMP to re-evaluate his liver enzymes. Although his WBC count has been trending down, I will also start him on broad-spectrum IV antibiotics to cover for cholecystitis/cholangitis given his persistent pain/fever/leukocytosis. Plavix has been continued since his admission. He received a dose this morning. Will hold his Plavix now, which ideally is held for 5 days prior to a cholecystectomy. -->Plan for torrie tube placement tomorrow, surg started ceftriaxone and flagyl today 10/05: HIDA scan and cholecystectomy tube placement today. Low fat diet started after procedure. Will continue to monitor tube and daily AM labs. 10/06: Pt looking a lot better since tube placement yesterday. Pt reporting some pain in his RLQ and tube insertion site but per pt his morphine home dose has been taking care of the pain. -Per surg note today: Cholecystostomy tube placed yesterday. Having pain at drain site. Chol ecystostomy tube will alleviate acute cholecystitis. Will not help if patient has cholangitis. Although the bile ducts are dilated, liver function tests are normal. Cholangitis seems unlikely. Bacteremia: Receiving appropriate antibiotics with vancomycin and cefepime. Pending susceptibility testing on the Enterococcus 10/07: Per surg: Relieved with placement cholecystostomy tube. Abdomen benign and no further abdominal pain. No longer plan to proceed with cholecystectomy this week. Patient to ill with sepsis and bacteremia as well as acute on chronic renal failure. Will resume Plavix today. -Pt denies pain to his abd or torrie tube site. 10/08: -Slight WBC increase overnight, 10.4-->12.1 -Per surg rounds: Relieved with placement cholecystostomy tube. Abdomen benign and no further abdominal pain. No longer plan to proceed with cholecystectomy this week. Patient too ill with sepsis and bacteremia as well as acute on chronic renal failure. Plavix resumed. -Switched abx yesterday from vanc ampicillin and gentamicin based on susceptibilities of the Enterococcus per pharm 10/09: -Slight WBC increase overnight again, surg aware. Continue IV abx. Continue to monitor torrie tube, labs, VS. 10/10: -WBC 12.6, Ampicillin 2 gram IVPB q 8, Ceftriaxone 2 gram IVPB daily, and Metronidazole 500 mg PO q 8. Continue to monitor torrie tube, labs, VS. PT/OT. Surgery following, appreciate recommendations. 10/12: -WBC 11.2, Ampicillin 2 gram IVPB q 8, Ceftriaxone 2 gram IVPB daily, and Metronidazole 500 mg PO q 8. Continue to monitor torrie tube, labs, VS. PT/OT. Surgery following, appreciate recommendations. Cholangiogram today showed: Cholelithiasis and choledocholithiasis obstructing distal choledocholithiasis with no observed contrast emptying into the duodenum. The cystic duct is patent. Consider ERCP for stone extraction and sphincterotomy to relieve the distal ductal obstruction. 10/13: -WBC 12.0, Ampicillin 2 gram IVPB q 8, Ceftriaxone 2 gram IVPB daily, and Metronidazole 500 mg PO q 8. Continue to monitor torrie tube, labs, VS. PT/OT. Surgery following, appreciate recommendations. 10/14: -WBC 12.6, Ampicillin 2 gram IVPB q 8, Ceftriaxone 2 gram IVPB daily, and Metronidazole 500 mg PO q 8. Continue to monitor torrie tube, labs, VS. PT/OT. Surgery following, appreciate recommendations. GI consulted. NPO after MN for ERCP. (5) Type 2 diabetes mellitus with hyperglycemia, without long-term current use of insulin: Code(s): E11.65 - Type 2 diabetes mellitus with hyperglycemia Status: Chronic Assessment and Plan: Hold Actos -Moderate dose sliding scale insulin with Accu-Cheks a.c. HS and hypoglycemia protocol. -Glucose has been stable during stay (6) Elevated brain natriuretic peptide (BNP) level: Code(s): R79.89 - Other specified abnormal findings of blood chemistry Status: Acute Assessment and Plan: * 10/11: BNP 9,700. Lasix 40 mg ivp x 1 given. * 10/12: BNP 7,310. Creatinine 2.99. Restart home dose of Furosemide 40 mg PO BID. Monitor kidney function. * 10/13: BNP 6,850. Creatinine 2.74. Continue Furosemide 40 mg PO BID. Monitor kidney function. * 10/14: BNP 4,900. Creatinine 2.68. Continue Furosemide 40 mg PO BID. Monitor kidney function. * Echocardiogram showed: Summary 1. Definity contrast administered improved wall motion interpretation. 2. Left ventricular chamber dimension is normal. 3. Left ventricular systolic function is normal, estimated at 60-65. 4. There is moderate concentric increased left ventricular wall thickness. 5. The left ventricular diastolic function is grade I diastolic dysfunction. 6. E/e' 15 is elevated. 7. Left atrial chamber dimension is mildly enlarged. 8. 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 Consider ADOLOF if clinically indicated. 9. There is moderate to severe mitral valve regurgitation. 10. Circumferential echogenic mass measuring 1.4 cm x 0.8 cm attached to left atrial side of mitral valve annulus which probably calcified mass. There is an additional small calcified echogenic mass attached to left ventricular side of posterior mitral valve leaflet. Probably calcifications more likely than vegetations. Consider ADOLFO if clinically indicated. 11. There is mild tricuspid valve regurgitation. 12. Mild pulmonary hypertension, estimated pulmonary arterial systolic pressure is 40 mmHg. 13. There is trace pulmonic regurgitation. * Cardiology consulted, appreciate recommendations. (7) Chronic pain: Qualifiers: Chronic pain type: chronic pain syndrome Qualified Code(s): G89.4 - Chronic pain syndrome Code(s): G89.29 - Other chronic pain Status: Acute Assessment and Plan: Will resume patient's home morphine 15 mg Q 8 hours p.r.n. pain 7-10. (8) Abdominal aortic aneurysm (AAA) 3.0 cm to 5.5 cm in diameter in male: Code(s): I71.40 - Abdominal aortic aneurysm, without rupture, unspecified Status: Acute Assessment and Plan: Likely chronic will defer follow-up to patient's primary care provider for serial imaging (9) Bacteremia: Code(s): R78.81 - Bacteremia Status: Acute Assessment and Plan: 10/05: Both blood cultures resulted today with Gram + cocci in chains -->Spoke with ID pharm, reports could be either strep strain (covered by Ceftriaxone) or Entero strain (covered by Vanc) --->Will start vanc today to treat if ends up being entero strain to get ahead of the infection, will f/u tomorrow for final reads -Pt on Ceftriaxone 2g already via surg for low grade fevers and leukocytosis, will continue. -Ordered echo 10/05 to r/o endocarditis -Also repeat order for BC placed today 10/06: X1 BC final result yielding enterococcus faecalis, will continue with vanc, pending second final BC result -Will continue to trend BCs 10/07: After a slight bump, WBC continues to downtrend slightly, will continue to monitor. Per surg today: Spoke with pharmacist. Will change to ampicillin and gentamicin based on susceptibilities of the Enterococcus -->Gallbladder wound culture prelim resulted today for Enterococcus, continue ampicillin and gentamicin -Will continue to trend BCs, new draw tomorrow AM scheduled 10/08: -Slight WBC increase overnight, 10.4-->12.1 -Per surg: Continue ampicillin and gentamicin based on susceptibilities of the Enterococcus. -Switched abx yesterday from vanc ampicillin and gentamicin based on susceptibi lities of the Enterococcus per pharm -Will continue to monitor daily labs 10/09: -Very slight, surg aware. Continue IV abx. Continue to monitor torrie tube, labs, VS. 10/10: -WBC 12.6, Ampicillin 2 gram IVPB q 8, Ceftriaxone 2 gram IVPB daily, and Metronidazole 500 mg PO q 8. Continue to monitor torrie tube, labs, VS. 10/11: WBC 12.5. Ampicillin 2 gram IVPB q 8, Ceftriaxone 2 gram IVPB daily, and Metronidazole 500 mg PO q 8. Continue to monitor torrie tube, labs, VS. 10/12: WBC 11.2. Ampicillin 2 gram IVPB q 8, Ceftriaxone 2 gram IVPB daily, and Metronidazole 500 mg PO q 8. Continue to monitor torrie tube, labs, VS. 10/13: WBC 12, Ampicillin 2 gram IVPB q 8, Ceftriaxone 2 gram IVPB daily, and Metronidazole 500 mg PO q 8. Continue to monitor torrie tube, labs, VS. PT/OT. Surgery following, appreciate recommendations. 10/14: -WBC 12.6, Ampicillin 2 gram IVPB q 8, Ceftriaxone 2 gram IVPB daily, and Metronidazole 500 mg PO q 8. Continue to monitor torrie tube, labs, VS. PT/OT. Surgery following, appreciate recommendations. 10/08 blood cultures negative. (10) Hyponatremia: Code(s): E87.1 - Hypo-osmolality and hyponatremia Status: Acute Assessment and Plan: Levels have been low since admission despite IVF NS. -Sodium chl tablets started 10/06 to normalize -Will continue to trend pt status and daily labs 10/07: Na 134 10/08: Na 135 10/09: Na 134 10/10: Na 134. 10/11: Na+ 131. Receiving Sodium chloride 500 mg PO BID. 10/12: Na+ 132. Receiving Sodium chloride 500 mg PO BID. 10/13: Na+ 131. Receiving Sodium chloride 500 mg PO BID. 10/14: Na+ 132. Receiving Sodium chloride 500 mg PO BID. (11) Antiplatelet or antithrombotic long-term use: Code(s): Z79.02 - buttermaker continuous churn (current) use of antithrombotics/antiplatelets Status: Acute Assessment and Plan: Pt with hx of pacemaker and plavix long-term use. Per surg: Plavix has been continued since his admission. He received a dose this morning. Will hold his Plavix now, which ideally is held for 5 days prior to a cholecystectomy. 10/07: Per surg: No longer plan to proceed with cholecystectomy this week. Patient to ill with sepsis and bacteremia as well as acute on chronic renal failure. Will resume Plavix today. -Plan for outpatient lap torrie potentially, surg to continue to follow. Plan Torrie tube placement 10/05, continue to monitor pt with labs, VS, and pain control. Surg started IV abx 10/04. Subjective Date/time seen: 10/14/24 13:05 Interval history: Patient sitting up in bed. Patient reports pain in his right abdomen is a 7, it is sharp at times and shoots down toward leg, pain is frequent. Patient denies chest pain, palpitations, headache, dizziness, nausea, or vomiting. Review of Systems Review of Systems: All systems reviewed & are unremarkable except as noted in HPI and below Exam Const: General: no acute distress and uncomfortable Resp: Effort & Inspection: normal respiratory effort Auscultation: clear to auscultation bilaterally Cardio: Rate: regular rate Rhythm: regular rhythm GI: GI Palp: Yes Soft to palpation Auscultation: normal bowel sounds Other: Torrie tube with bile colored drainage, small amount. Neuro: Speech: normal speech Extrem: General: pedal edema bilaterally 2+ Psych: Mental Status: mental status grossly normal Affect: normal affect Objective Data Vital Signs Vital Signs: Vital Signs - 24 hr 10/13/24 14:00 10/13/24 20:00 10/13/24 22:05 Temperature 98.2 F 97.6 F Pulse Rate 82 73 Respiratory Rate 18 16 Blood Pressure 140/58 L 110/48 L Pulse Oximetry 98 97 Oxygen Delivery Room Air Fraction of Inspired Oxygen 10/14/24 07:26 10/14/24 08:33 Temperature 97.8 F Pulse Rate 72 72 Respiratory Rate 16 16 Blood Pressure 145/57 H Pulse Oximetry 96 96 Oxygen Delivery Room Air Fraction of Inspired Oxygen 21 Intake/Output Intake/Output: Intake & Output 10/11/24 10/12/24 10/13/24 10/14/24 23:59 23:59 23:59 23:59 Intake Total 1240 1390 1020 620 Output Total 880 1930 2000 2260 Balance 523 -658 -327 -0135 Meds/Results Medications: Active Medications Generic Name Dose Route Start Last Admin Trade Name Freq PRN Reason Stop Dose Admin Acetaminophen 650 mg 09/30/24 19:02 10/12/24 01:13 Acetaminophen 325 Mg Tablet PO 650 mg Q4H PRN Administration Mild Pain (1-3) or Fever Albuterol 2 puff 10/03/24 15:40 10/04/24 09:06 Albuterol Sulfate (*Sp) Aerosol 1 Puff INHALATION 2 puff Q6HRT PRN Administration Shortness Of Breath Or Wheezing Clopidogrel Bisulfate 75 mg 10/01/24 09:00 10/12/24 08:42 Clopidogrel Bisulfate 75 Mg Tablet PO 75 mg DAILY VU Administration Dextrose 12.5 gm 09/30/24 20:29 Dextrose 50% 25 Gm/50 Ml Syringe IV PUSH PRN PRN Hypoglycemia Protocol Docusate Sodium 100 mg 10/01/24 09:00 10/14/24 08:34 Docusate Sodium 100 Mg Capsule PO 100 mg DAILY VU Administration Ezetimibe 10 mg 10/01/24 09:00 10/14/24 08:34 Ezetimibe 10 Mg Tablet PO 10 mg DAILY VU Administration Famotidine 20 mg 09/30/24 21:00 10/14/24 08:33 Famotidine 20 Mg Tablet PO 20 mg Q12HR VU Administration Finasteride 5 mg 10/01/24 09:00 10/14/24 08:34 Finasteride 5 Mg Tablet PO 5 mg DAILY VU Administration Fluticasone Propionate 2 spray 09/30/24 20:28 10/14/24 08:33 Fluticasone Propionate 0.05% Na Spr 16 Gm Btl (*Bkc) NASAL 2 spray DAILY PRN Administration allergy symptoms Furosemide 40 mg 10/09/24 09:00 10/14/24 08:34 Furosemide 40 Mg Tablet PO 40 mg BID VU Administration Glucagon 1 mg 09/30/24 20:29 Glucagon For Inj 1 Mg Vial IM PRN PRN Hypoglycemia Protocol Glucose 15 gm 09/30/24 20:29 Glucose Oral Gel 15 Gm Of Glucse In 37.5 Gm Tube PO PRN PRN Hypoglycemia Protocol Guaifenesin 600 mg 10/11/24 21:00 10/14/24 08:34 Guaifenesin 12 Hr 600 Mg Tabcr PO 10/18/24 20:59 600 mg Q12HR VU Administration Heparin Sodium (Porcine) 5,000 units 09/30/24 21:00 10/14/24 08:34 Heparin Sodium 5,000 Units/Ml Vial SUB-Q 5,000 units Q12HR VU Administration Dextrose 1,000 mls @ 100 mls/hr 09/30/24 20:29 Dextrose 5% 1,000 Ml IVPB PRN PRN Hypoglycemia Protocol Ampicillin Sodium 2 gm in 100 mls @ 200 mls/hr 10/07/24 10:00 10/14/24 10:31 Ampicillin 2 Gm/Ns 100 Ml IVPB 200 mls/hr Q8H VU Administration Ceftriaxone Sodium 2 gm in 100 mls @ 200 mls/hr 10/08/24 14:00 10/13/24 15:06 Rocephin 2 Gm/Ns 100 Ml IVPB 200 mls/hr Q24H VU Administration Insulin Aspart 1 - 3 units 09/30/24 21:00 10/14/24 02:32 Insulin Aspart (*Bkc) 100 Units/Ml SUB-Q Not Given HS VU Protocol Insulin Aspart 3 - 6 units 10/01/24 08:00 10/14/24 13:01 Insulin Aspart (*Bkc) 100 Units/Ml SUB-Q Not Given TIDWM VU Protocol Metronidazole 500 mg 10/08/24 14:00 10/14/24 05:55 Metronidazole 500 Mg Tablet PO 500 mg Q8HR VU Administration Morphine Sulfate 15 mg 09/30/24 20:28 10/14/24 10:43 Morphine Sulfate (*Crx) 15 Mg Tab Ir PO 15 mg Q8H PRN Administration pain 7-10 Morphine Sulfate 15 mg 10/07/24 09:53 10/12/24 12:46 Morphine Sulfate (*Crx) 15 Mg Tab Ir PO 15 mg Q4H PRN Administration Pain Rated 7-10 Ondansetron HCl 4 mg 09/30/24 19:02 10/12/24 11:54 Ondansetron Inj 4 Mg/2 Ml Vial IV PUSH 4 mg Q4H PRN Administration Nausea Pantoprazole Sodium 40 mg 10/07/24 09:00 10/14/24 08:34 Pantoprazole 40 Mg Tablet PO 40 mg QAM VU Administration Polyethylene Glycol 17 gm 10/10/24 13:40 10/14/24 08:34 Polyethylene Glycol 3350 17 Gm Powd.Pack PO 17 gm QAM VU Administration Saccharomyces Boulardii 250 mg 10/11/24 17:00 10/14/24 08:33 Saccharomyces Boulardii 250 Mg Capsule PO 250 mg BID VU Administration Sodium Chloride 500 mg 10/06/24 17:00 10/14/24 08:34 Sodium Chloride 500 Mg Tablet PO 500 mg BID VU Administration Verapamil HCl 120 mg 09/30/24 21:00 10/14/24 08:34 Verapamil Hcl 120 Mg Tablet Immed Release PO 120 mg Q12HR VU Administration Radiology Results: ITS Impressions Abdomen/Pelvis CT 09/30/24 19:00 IMPRESSION: Gallbladder hydrops without inflammatory change. Dilated common bile duct, measuring 14 mm. No obstructing stone or mass detected. Correlate with biliary labs. 3.4 cm fusiform infrarenal abdominal aortic aneurysm. Consider follow-up in 3 years. Upper Quadrant Ultrasound 10/01/24 08:43 IMPRESSION: 1. Cholelithiasis with a normal-appearing gallbladder but with mild intra and extrahepatic biliary ductal dilation which raises concern for a nonvisualized distal obstructing choledocholithiasis. Correlate with liver function tests and if clinically indicated could consider further evaluation with either MRCP or ERCP. Hepatobiliary Scan Nuclear Medicine 10/05/24 08:35 IMPRESSION: 1. No evident gallbladder activity consistent with acute cholecystitis. Cholecystostomy 10/05/24 16:57 IMPRESSION: 1. Successful ultrasound-guided cholecystostomy tube placement. 2. 35 mL bile was sent for aerobic, anaerobic, and fungal cultures. 3. The catheter will be managed by Dr. Brennan. Chest X-Ray 10/10/24 06:58 Impression: Clear lungs. Status post aortic valve replacement, with pacemaker device. Cholangiogram 10/12/24 14:45 IMPRESSION: 1. Cholelithiasis and choledocholithiasis obstructing distal choledocholithiasis with no observed contrast emptying into the duodenum. The cystic duct is patent. Consider ERCP for stone extraction and sphincterotomy to relieve the distal ductal obstruction. Labs Labs: Laboratory Results - last 24 hr 10/13/24 10/13/24 10/14/24 17:27 21:47 04:40 WBC 12.6 H RBC 2.93 L Hgb 8.6 L Hct 27.0 L MCV 92.2 MCH 29.4 MCHC 31.9 L RDW 15.2 H Plt Count 542 H MPV 9.2 Sodium 132 L Potassium 4.6 Chloride 95 L Carbon Dioxide 27 Anion Gap 10 BUN 48 H Creatinine 2.68 H Estim Creat Clear Calc 21 Estimated GFR 23 L Glucose 114 H POC Capillary Glucose 136 H 138 H Calcium 8.5 Magnesium 1.7 Total Bilirubin 0.6 AST 27 ALT 16 Alkaline Phosphatase 80 NT-Pro-B Natriuret Pep 4900 H Total Protein 6.5 Albumin 3.0 L 10/14/24 10/14/24 08:12 12:10 WBC RBC Hgb Hct MCV MCH MCHC RDW Plt Count MPV Sodium Potassium Chloride Carbon Dioxide Anion Gap BUN Creatinine Estim Creat Clear Calc Estimated GFR Glucose POC Capillary Glucose 104 151 H Calcium Magnesium Total Bilirubin AST ALT Alkaline Phosphatase NT-Pro-B Natriuret Pep Total Protein Albumin Quality VTE Prophylaxis VTE prophylaxis: pharmacologic ordered (Heparin 5000 units subQ q.12 hours.)
[2024-10-14] MEDS: cefTRIAXone 2 GM/NS 100 ML 2 GM/100 ML BAG IVPB (13:58)
[2024-10-14 14:00] VITALS: BP 125/52; PULSE 86; RESP 14; TEMP 36.9; O2SAT 100
[2024-10-14 19:57] VITALS: BP 130/59; PULSE 82; RESP 18; TEMP 36.5; O2SAT 98
[2024-10-14 20:00] VITALS: PULSE 82; RESP 18; O2SAT 98
[2024-10-14] MEDS: ACETAMINOPHEN 325 MG TABLET 650 MG PO (23:24)
[2024-10-15] MEDS: AMPICILLIN 2 GM/NS 100 ML 2 GM/100 ML BAG IVPB ×3 (01:55→17:17)
[2024-10-15] MEDS: MORPHINE SULFATE (*CRX) 15 MG TAB IR PO ×4 (03:39→18:02)
[2024-10-15 05:17] LABS: Hematocrit 29.9 % (42.0-52.0); Hemoglobin 9.3 g/dL (14.0-18.0); Immature Granulocyte Percent A 2.6 % (0-0.5); Lymphocytes Absolute Auto 1.05 K/mm3 (0.9-3.2); Mean Corpuscular HGB Conc 31.1 g/dl (32-36); Mean Corpuscular Hemoglobin 29.2 pg (26-34); Mean Corpuscular Volume 93.7 fl (80-100); Nucleated Red Blood Cells Absolute Auto 0.020 K/mm3 (0.0-0.012); Nucleated Red Blood Cells Perc 0.2 % (0.0-0.2); Platelet Count Result 580 k/mm3 (150-375); Red Blood Count 3.19 M/mm3 (4.6-6.20); White Blood Count 11.8 K/mm3 (4.5-10.0)
[2024-10-15 05:50] LABS: Alanine Aminotransferase 17 U/L (6-50); Albumin Level 3.1 g/dL (3.5-5.1); Alkaline Phosphatase 95 U/L (38-126); Anion Gap 9 mmol/L (4-12); Aspartate Amino Transferase 32 U/L (17-59); Bilirubin,Total 0.5 mg/dL (0.2-1.3); Blood Urea Nitrogen 46 mg/dL (9-20); Calcium 8.8 mg/dL (8.4-10.2); Carbon Dioxide 30 mmol/L (22-30); Chloride 94 mmol/L (98-107); Estimated CRCL calculation 20 ml/min; Estimated Glomerular Filt Rate 22; Glucose 128 mg/dL (65-110); Magnesium 1.8 mg/dL (1.6-2.3); NT Pro B Type Natriuretic Pept 4260 pg/mL (19.9-100); Potassium 4.7 mmol/L (3.4-5.0); Sodium 133 mmol/L (137-145); Total Protein 6.8 g/dL (6.3-8.2)
--- NOTE | 2024-10-15 07:52 | PM.PNCARD ---
Progress Note: A&P Assessment and Plan (1) Chest pain: Qualifiers: Chest pain type: unspecified Qualified Code(s): R07.9 - Chest pain, unspecified Code(s): R07.9 - Chest pain, unspecified Status: Acute Assessment and Plan: Atypical. Troponin only slightly elevated at 0.090. EKG shows no ST abnormality. No ACS. (2) Hypertension: Code(s): I10 - Essential (primary) hypertension Status: Chronic Assessment and Plan: Stable. (3) Mixed hyperlipidemia: Code(s): E78.2 - Mixed hyperlipidemia Status: Acute Assessment and Plan: On Zetia. Intolerant of statins. (4) Pacemaker: Code(s): Z95.0 - Presence of cardiac pacemaker Status: Acute Assessment and Plan: Stable. 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 He is followed by his regular trim machine adjuster, Dr. Penn with [facility]. (5) Abdominal aortic aneurysm (AAA) 3.0 cm to 5.5 cm in diameter in male: Code(s): I71.40 - Abdominal aortic aneurysm, without rupture, unspecified Status: Acute Assessment and Plan: Stable. 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 Offered ADOLFO to r/o myxoma and vegetations this coming week if interested and he and his wanted to think about it then let me know. They are not interested at this time but plans to discuss with their primary trim machine adjuster, Dr. Penn as an outpatient. Will sign off, please call with any questions. Upon discharge have patient f/u with his regular trim machine adjuster, Dr. Penn in 1-2 weeks. (7) Enterococcal bacteremia: Code(s): R78.81 - Bacteremia; B95.2 - Enterococcus as the cause of diseases classified elsewhere Status: Acute Assessment and Plan: On IV antibiotics. Repeat blood culture negative which is reassuring that likely no vegetations. Possible vegetation of posterior mitral valve leaflet and annulus or calcifications. Subjective Date/time seen: 10/15/24 07:52 Interval history: No chest pain or sob. He has some RUQ abdominal pain. Exam Const: General: cooperative, healthy appearing and comfortable Orientation/consciousness: oriented to person, oriented to place and oriented to time Resp: Auscultation: clear to auscultation bilaterally, no crackles, no rales, no rhonchi and no wheezes Cardio: Rate: regular rate Rhythm: regular rhythm Heart sounds: no murmurs Peripheral pulses: dorsalis pedis present GI: GI Palp: Yes Soft to palpation Neuro: General: oriented to person, oriented to place and oriented to time Extrem: Right lower extremity: edema Left lower extremity: edema Other: Mild edema of both legs Objective Data Vital Signs Vital Signs: Vital Signs - 24 hr 10/14/24 08:33 10/14/24 14:00 10/14/24 19:57 Temperature 98.5 F 97.7 F Pulse Rate 72 86 82 Respiratory Rate 16 14 18 Blood Pressure 125/52 L 130/59 L Pulse Oximetry 96 100 98 Oxygen Delivery Room Air Fraction of Inspired Oxygen 21 10/14/24 20:00 Temperature Pulse Rate 82 Respiratory Rate 18 Blood Pressure Pulse Oximetry 98 Oxygen Delivery Room Air Fraction of Inspired Oxygen 21 Intake/Output Intake/Output: Intake & Output 10/12/24 10/13/24 10/14/24 10/15/24 23:59 23:59 23:59 23:59 Intake Total 1390 1120 1180 Output Total 1930 2000 3810 1000 Balance -540 -880 -2630 -1000 Meds/Results Medications: Active Medications Generic Name Dose Route Start Last Admin Trade Name Freq PRN Reason Stop Dose Admin Acetaminophen 650 mg 09/30/24 19:02 10/14/24 23:24 Acetaminophen 325 Mg Tablet PO 650 mg Q4H PRN Administration Mild Pain (1-3) or Fever Albuterol 2 puff 10/03/24 15:40 10/04/24 09:06 Albuterol Sulfate (*Sp) Aerosol 1 Puff INHALATION 2 puff Q6HRT PRN Administration Shortness Of Breath Or Wheezing Clopidogrel Bisulfate 75 mg 10/01/24 09:00 10/12/24 08:42 Clopidogrel Bisulfate 75 Mg Tablet PO 75 mg DAILY VU Administration Dextrose 12.5 gm 09/30/24 20:29 Dextrose 50% 25 Gm/50 Ml Syringe IV PUSH PRN PRN Hypoglycemia Protocol Docusate Sodium 100 mg 10/01/24 09:00 10/14/24 08:34 Docusate Sodium 100 Mg Capsule PO 100 mg DAILY VU Administration Ezetimibe 10 mg 10/01/24 09:00 10/14/24 08:34 Ezetimibe 10 Mg Tablet PO 10 mg DAILY VU Administration Epoetin Gordo-epbx 10,000 units 10/16/24 09:00 Epoetin [place]-Epbx 10,000 Units/Ml Vial SUB-Q TUTHSA@09 [facility] Famotidine 20 mg 09/30/24 21:00 10/14/24 20:26 Famotidine 20 Mg Tablet PO 20 mg Q12HR VU Administration Finasteride 5 mg 10/01/24 09:00 10/14/24 08:34 Finasteride 5 Mg Tablet PO 5 mg DAILY VU Administration Fluticasone Propionate 2 spray 09/30/24 20:28 10/14/24 08:33 Fluticasone Propionate 0.05% Na Spr 16 Gm Btl (*Bkc) NASAL 2 spray DAILY PRN Administration allergy symptoms Furosemide 40 mg 10/09/24 09:00 10/14/24 17:12 Furosemide 40 Mg Tablet PO 40 mg BID VU Administration Glucagon 1 mg 09/30/24 20:29 Glucagon For Inj 1 Mg Vial IM PRN PRN Hypoglycemia Protocol Glucose 15 gm 09/30/24 20:29 Glucose Oral Gel 15 Gm Of Glucse In 37.5 Gm Tube PO PRN PRN Hypoglycemia Protocol Guaifenesin 600 mg 10/11/24 21:00 10/14/24 20:26 Guaifenesin 12 Hr 600 Mg Tabcr PO 10/18/24 20:59 600 mg Q12HR VU Administration Heparin Sodium (Porcine) 5,000 units 09/30/24 21:00 10/14/24 08:34 Heparin Sodium 5,000 Units/Ml Vial SUB-Q 5,000 units Q12HR VU Administration Dextrose 1,000 mls @ 100 mls/hr 09/30/24 20:29 Dextrose 5% 1,000 Ml IVPB PRN PRN Hypoglycemia Protocol Ampicillin Sodium 2 gm in 100 mls @ 200 mls/hr 10/07/24 10:00 10/15/24 01:55 Ampicillin 2 Gm/Ns 100 Ml IVPB 200 mls/hr Q8H VU Administration Ceftriaxone Sodium 2 gm in 100 mls @ 200 mls/hr 10/08/24 14:00 10/14/24 13:58 Rocephin 2 Gm/Ns 100 Ml IVPB 200 mls/hr Q24H VU Administration Insulin Aspart 1 - 3 units 09/30/24 21:00 10/14/24 20:24 Insulin Aspart (*Bkc) 100 Units/Ml SUB-Q Not Given HS [facility] Protocol Insulin Aspart 3 - 6 units 10/01/24 08:00 10/14/24 16:55 Insulin Aspart (*Bkc) 100 Units/Ml SUB-Q Not Given TIDWM [facility] Protocol Metronidazole 500 mg 10/08/24 14:00 10/15/24 05:44 Metronidazole 500 Mg Tablet PO 500 mg Q8HR VU Administration Morphine Sulfate 15 mg 09/30/24 20:28 10/15/24 03:39 Morphine Sulfate (*Crx) 15 Mg Tab Ir PO 15 mg Q8H PRN Administration pain 7-10 Morphine Sulfate 15 mg 10/07/24 09:53 10/12/24 12:46 Morphine Sulfate (*Crx) 15 Mg Tab Ir PO 15 mg Q4H PRN Administration Pain Rated 7-10 Ondansetron HCl 4 mg 09/30/24 19:02 10/12/24 11:54 Ondansetron Inj 4 Mg/2 Ml Vial IV PUSH 4 mg Q4H PRN Administration Nausea Pantoprazole Sodium 40 mg 10/07/24 09:00 10/14/24 08:34 Pantoprazole 40 Mg Tablet PO 40 mg QAM VU Administration Polyethylene Glycol 17 gm 10/10/24 13:40 10/14/24 08:34 Polyethylene Glycol 3350 17 Gm Powd.Pack PO 17 gm QAM VU Administration Saccharomyces Boulardii 250 mg 10/11/24 17:00 10/14/24 17:12 Saccharomyces Boulardii 250 Mg Capsule PO 250 mg BID VU Administration Sodium Chloride 500 mg 10/06/24 17:00 10/14/24 17:12 Sodium Chloride 500 Mg Tablet PO 500 mg BID VU Administration Verapamil HCl 120 mg 09/30/24 21:00 10/14/24 20:26 Verapamil Hcl 120 Mg Tablet Immed Release PO 120 mg Q12HR VU Administration Radiology Results: ITS Impressions Abdomen/Pelvis CT 09/30/24 19:00 IMPRESSION: Gallbladder hydrops without inflammatory change. Dilated common bile duct, measuring 14 mm. No obstructing stone or mass detected. Correlate with biliary labs. 3.4 cm fusiform infrarenal abdominal aortic aneurysm. Consider follow-up in 3 years. Upper Quadrant Ultrasound 10/01/24 08:43 IMPRESSION: 1. Cholelithiasis with a normal-appearing gallbladder but with mild intra and extrahepatic biliary ductal dilation which raises concern for a nonvisualized distal obstructing choledocholithiasis. Correlate with liver function tests and if clinically indicated could consider further evaluation with either MRCP or ERCP. Hepatobiliary Scan Nuclear Medicine 10/05/24 08:35 IMPRESSION: 1. No evident gallbladder activity consistent with acute cholecystitis. Cholecystostomy 10/05/24 16:57 IMPRESSION: 1. Successful ultrasound-guided cholecystostomy tube placement. 2. 35 mL bile was sent for aerobic, anaerobic, and fungal cultures. 3. The catheter will be managed by Dr. Brennan. Chest X-Ray 10/10/24 06:58 Impression: Clear lungs. Status post aortic valve replacement, with pacemaker device. Cholangiogram 10/12/24 14:45 IMPRESSION: 1. Cholelithiasis and choledocholithiasis obstructing distal choledocholithiasis with no observed contrast emptying into the duodenum. The cystic duct is patent. Consider ERCP for stone extraction and sphincterotomy to relieve the distal ductal obstruction. Labs Labs: Laboratory Results - last 24 hr 10/14/24 10/14/24 10/14/24 08:12 12:10 16:49 WBC RBC Hgb Hct MCV MCH MCHC RDW Plt Count MPV Immature Gran % (Auto) Neut % (Auto) Lymph % (Auto) [place] % (Auto) Eos % (Auto) Baso % (Auto) Lymph # (Auto) [place] # (Auto) Eos # (Auto) Baso # (Auto) Abs Immat Gran (auto) Absolute Neuts (auto) Absolute Nucleated RBC Nucleated RBC % Sodium Potassium Chloride Carbon Dioxide Anion Gap BUN Creatinine Estim Creat Clear Calc Estimated GFR Glucose POC Capillary Glucose 104 151 H 157 H Calcium Magnesium Total Bilirubin AST ALT Alkaline Phosphatase NT-Pro-B Natriuret Pep Total Protein Albumin 10/14/24 10/15/24 19:53 04:54 WBC 11.8 H RBC 3.19 L Hgb 9.3 L Hct 29.9 L MCV 93.7 MCH 29.2 MCHC 31.1 L RDW 15.1 H Plt Count 580 H MPV 8.9 Immature Gran % (Auto) 2.6 H Neut % (Auto) 73.5 H Lymph % (Auto) 8.9 L [place] % (Auto) 12.2 H Eos % (Auto) 2.0 Baso % (Auto) 0.8 Lymph # (Auto) 1.05 [place] # (Auto) 1.4 H Eos # (Auto) 0.2 Baso # (Auto) 0.1 Abs Immat Gran (auto) 0.31 H Absolute Neuts (auto) 8.7 H Absolute Nucleated RBC 0.020 H Nucleated RBC % 0.2 Sodium 133 L Potassium 4.7 Chloride 94 L Carbon Dioxide 30 Anion Gap 9 BUN 46 H Creatinine 2.76 H Estim Creat Clear Calc 20 Estimated GFR 22 L Glucose 128 H POC Capillary Glucose 161 H Calcium 8.8 Magnesium 1.8 Total Bilirubin 0.5 AST 32 ALT 17 Alkaline Phosphatase 95 NT-Pro-B Natriuret Pep 4260 H Total Protein 6.8 Albumin 3.1 L
[2024-10-15 09:35] VITALS: PULSE 79; RESP 18; O2SAT 98
[2024-10-15] MEDS: FUROSEMIDE 40 MG TABLET PO ×2 (09:35→17:13)
[2024-10-15] MEDS: EZETIMIBE 10 MG TABLET PO (09:35)
[2024-10-15] MEDS: SODIUM CHLORIDE 500 MG TABLET PO ×2 (09:35→17:14)
[2024-10-15] MEDS: FAMOTIDINE 20 MG TABLET PO ×2 (09:35→20:38)
[2024-10-15] MEDS: FINASTERIDE 5 MG TABLET PO (09:35)
[2024-10-15] MEDS: SACCHAROMYCES BOULARDII 250 MG CAPSULE PO ×2 (09:35→17:13)
[2024-10-15] MEDS: guaiFENesin 12 HR 600 MG TABCR PO ×2 (09:35→20:38)
[2024-10-15] MEDS: VERAPAMIL HCL 120 MG TABLET IMMED RELEASE PO ×2 (09:35→20:38)
[2024-10-15] MEDS: PANTOPRAZOLE 40 MG TABLET PO (09:35)
[2024-10-15] MEDS: DOCUSATE SODIUM 100 MG CAPSULE PO (09:35)
--- NOTE | 2024-10-15 09:52 | P.PNIM_ITS ---
Progress Note: A&P Assessment and Plan (1) Chest pain: Qualifiers: Chest pain type: unspecified Qualified Code(s): R07.9 - Chest pain, unspecified Code(s): R07.9 - Chest pain, unspecified Status: Acute Assessment and Plan: -Chest pain seems atypical in nature, pt continue to deny CP. -Troponin are elevated but flat. Will complete troponin series. -Pain seems more consistent with GI cause with reported indigestion and significant right upper quadrant pain. -Will continue Antihypertensives and Plavix. -->HOLD Plavix starting 10/05 for eventual lap sunni per surg 10/07: Per surg: No longer plan to proceed with cholecystectomy this week. Patient to ill with sepsis and bacteremia as well as acute on chronic renal failure. Will resume Plavix today. Pt continues to deny CP/SOB or any other worrisome sx. (2) Acute kidney injury superimposed on CKD: Code(s): N17.9 - Acute kidney failure, unspecified; N18.9 - Chronic kidney disease, unspecified Status: Acute Assessment and Plan: Patient has chronic kidney disease stage 4 with acute kidney injury. Most likely prerenal due to intervascular volume depletion. - Hold Lasix and continue IV fluid hydration at 75ml/hr. - Nephrology was consulted from the ER. - Continue flomax 10/02- cr/bun 2.96/100 10/03: Cr/BUN: 3.26/91, pending neph rounds due to worsening Cr 10/04: Cr/BUN: 3.43/90, Started IVF again today, continue to hold lasix 10/05: Cr/BUN: 3.54/[address] Lopez today, he believes that once the sunni tube is placed and with IV abx on board, kidney labs should begin to normalize back to pt baseline which is CKD4. Will continue to monitor levels. Dr. Lopez on for the weekend. 10/06: Cr/BUN: 2.84/84, starting to trend down, will continue to monitor daily IVF D/C due to better trending kidneys, lasix still on hold (no pulm congestion), and adequate intake. 10/07: Kidney levels continuing to improve Cr/BUN: 2.33/27 -If continues to improve, will start Lasix back up tomorrow. at the bedside today concerned for his BLE edema, which has not worsened per my exam. Pt also denies CP/SOB. 10/08: Kidney levels continuing to improve Cr/BUN: 2.15/59 -Lasix restarted today 10/09 daily: Cr/BUN: 2.41/55 Per neph 10/08: * slow and progressive decline noted * GFR ~ 22 to 23 in * GFR ~ 20 to 21 in * GFR ~ 18 by July 2024 labs * creatinine has been running anywhere from 2.4 - 3.2mg/dl in the last 6 months * creatinine on 09/27/24 (outpatient labs) = 3.93mg/dl (GFR 15) -- but this may have related to his acute medical issues currently * most likely due to diabetes and hypertension + chronic diuretic therapy go to the 10/10: Cr/BUN: 2.84/57. Nephrology following, appreciate recommendations. 10/11: Cr/BUN 3.02/55. Nephrology following, appreciate recommendations. 10/12: Cr/BUN 2.99/53. Nephrology following, appreciate recommendations. 10/13: Cr/BUN 2.74/48. Nephrology following, appreciate recommendations. 10/14: Cr/BUN 2.68/48. Nephrology following, appreciate recommendations. 10/15: Cr/BUN 2.76/46. Nephrology following, appreciate recommendations. (3) Acute uremia: Code(s): N19 - Unspecified kidney failure Status: Acute Assessment and Plan: Possibly due to hypovolemia. GI bleed is less likely given patient's hemoglobin is stable at 12 in ED and patient denies symptoms of hematemesis hematochezia or melena. Pt continues to deny any blood loss. -Will hold Lasix and continue IV fluid hydration and repeat CBC and electrolyte panel in a.m. -Decrease IV fluids to 50 ml and monitor I/O closely 10/03: -H/H as of 10/03: 9.630.5 -Pt appetite still decreased, continue IVF 50/hr 10/04: -H/H 9.830.5 -Started again on IVF to try to normalize creat, pt will be NPO at [facility] anyway for procedure tomorrow. 10/05: -H/H 9.9/31.3 -IVF down to 75 ml/hr for NPO status and to avoid pulm edema Spoke to Dr. Lopez today, he believes that once the sunni tube is placed and with IV abx on board, kidney labs should begin to normalize back to pt baseline which is CKD4. Will continue to monitor levels. Dr. Lopez on for the weekend. 10/06: -H/H 10.8/35.4 -IVF stopped today, appetite better 10/07: -H/H: 9.7/29.8 16: -H/H: 10.3/31.7 10/10: -H/H 9.1/28.4. 10/11: H&H 9.1/28.0. 10/12: H&H 8.6/27.2. 10/13: H&H 8.5/26.9. 10/14: H&H 8.6/27.0. /: H&H 9.3/29.9. (4) Gallbladder hydrops: Code(s): K82.1 - Hydrops of gallbladder Status: Acute Assessment and Plan: CT does not suggest overt acute cholecystitis but patient does have significant kit right upper quadrant pain on palpation and worsening of his nausea with palpation of right upper quadrant. -RUQ US for better visualization of the gallbladder: 1. Cholelithiasis with a normal-appearing gallbladder but with mild intra and extrahepatic biliary ductal dilation which raises concern for a nonvisualized distal obstructing choledocholithiasis. Correlate with liver function tests and if clinically indicated could consider further evaluation with either MRCP or ERCP. -->Consulted GI 10/03, pending recs/rounding -Bilirubin and transaminases are normal. -Patient does have some leukocytosis but no fever. -Will hold off on adding antibiotic coverage at this time and will repeat CBC in a.m. 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 His symptoms are likely related to his gallbadder and there is concern for choledocholithiasis given his common bile duct dilatation on imaging. Since his Plavix has been continued, he would not be a candidate for a laparoscopic cholecystectomy at this time. He received his last dose of Plavix this morning, which I have put on hold. Since he continues to have symptoms, we would recommend proceeding with percutaneous cholecystostomy tube placement to treat his cholecystitis. We will eventually consider proceeding with a laparoscopic cholecystectomy with intraoperative cholangiogram to evaluate for choledocholithiasis, but this will be at a later date, possibly as an outpatient depending on how he is progressing medically, when his Plavix can be held for an adequate amount of time. This would also allow time for improved medical optimization in regards to his renal failure and pulmonary edema. Will repeat labs tomorrow and include a CMP to re-evaluate his liver enzymes. Although his WBC count has been trending down, I will also start him on broad-spectrum IV antibiotics to cover for cholecystitis/cholangitis given his persistent pain/fever/leukocytosis. Plavix has been continued since his admission. He received a dose this morning. Will hold his Plavix now, which ideally is held for 5 days prior to a cholecystectomy. -->Plan for sunni tube placement tomorrow, surg started ceftriaxone and flagyl today 10/05: HIDA scan and cholecystectomy tube placement today. Low fat diet started after procedure. Will continue to monitor tube and daily AM labs. 10/06: Pt looking a lot better since tube placement yesterday. Pt reporting some pain in his RLQ and tube insertion site but per pt his morphine home dose has been taking care of the pain. -Per surg note today: Cholecystostomy tube placed yesterday. Having pain at drain site. Cholecystostomy tube will alleviate acute cholecystitis. Will not help if patient has cholangitis. Although the bile ducts are dilated, liver function tests are normal. Cholangitis seems unlikely. Bacteremia: Receiving appropriate antibiotics with vancomycin and cefepime. Pending susceptibility testing on the Enterococcus 10/07: Per surg: Relieved with placement cholecystostomy tube. Abdomen benign and no further abdominal pain. No longer plan to proceed with cholecystectomy this week. Patient to ill with sepsis and bacteremia as well as acute on chronic renal failure. Will resume Plavix today. -Pt denies pain to his abd or sunni tube site. 10/08: -Slight WBC increase overnight, 10.4-->12.1 -Per surg rounds: Relieved with placement cholecystostomy tube. Abdomen benign and no further abdominal pain. No longer plan to proceed with cholecystectomy this week. Patient too ill with sepsis and bacteremia as well as acute on chronic renal failure. Plavix resumed. -Switched abx yesterday from vanc ampicillin and gentamicin based on susceptibilities of the Enterococcus per pharm 10/09: -Slight WBC increase overnight again, surg aware. Continue IV abx. Continue to monitor sunni tube, labs, VS. 10/10: -WBC 12.6, Ampicillin 2 gram IVPB q 8, Ceftriaxone 2 gram IVPB daily, and Metronidazole 500 mg PO q 8. Continue to monitor sunni tube, labs, VS. PT/OT. Surgery following, appreciate recommendations. 10/12: -WBC 11.2, Ampicillin 2 gram IVPB q 8, Ceftriaxone 2 gram IVPB daily, and Metronidazole 500 mg PO q 8. Continue to monitor sunni tube, labs, VS. PT/OT. Surgery following, appreciate recommendations. Cholangiogram today showed: Cholelithiasis and choledocholithiasis obstructing distal choledocholithiasis with no observed contrast emptying into the duodenum. The cystic duct is patent. Consider ERCP for stone extraction and sphincterotomy to relieve the distal d uctal obstruction. 10/13: -WBC 12.0, Ampicillin 2 gram IVPB q 8, Ceftriaxone 2 gram IVPB daily, and Metronidazole 500 mg PO q 8. Continue to monitor sunni tube, labs, VS. PT/OT. Surgery following, appreciate recommendations. 10/14: -WBC 12.6, Ampicillin 2 gram IVPB q 8, Ceftriaxone 2 gram IVPB daily, and Metronidazole 500 mg PO q 8. Continue to monitor sunni tube, labs, VS. PT/OT. S urgery following, appreciate recommendations. GI consulted. NPO after MN for ERCP. 10/15: WBC 11.8, Ampicillin 2 gram IVPB q 8, Ceftriaxone 2 gram IVPB daily, and Metronidazole 500 mg PO q 8. Continue to monitor sunni tube, labs, VS. PT/OT. Surgery following, appreciate recommendations. GI following. Cardiac cleared patient to proceed with ERCP. NPO after MN for ERCP. (5) Type 2 diabetes mellitus with hyperglycemia, without long-term current use of insulin: Code(s): E11.65 - Type 2 diabetes mellitus with hyperglycemia Status: Chronic Assessment and Plan: Hold Actos -Moderate dose sliding scale insulin with Accu-Cheks a.c. HS and hypoglycemia protocol. -Glucose has been stable during stay (6) Elevated brain natriuretic peptide (BNP) level: Code(s): R79.89 - Other specified abnormal findings of blood chemistry Status: Acute Assessment and Plan: * 10/11: BNP 9,700. Lasix 40 mg ivp x 1 given. * 10/12: BNP 7,310. Creatinine 2.99. Restart home dose of Furosemide 40 mg PO BID. Monitor kidney function. * 10/13: BNP 6,850. Creatinine 2.74. Continue Furosemide 40 mg PO BID. Monitor kidney function. * 10/14: BNP 4,900. Creatinine 2.68. Continue Furosemide 40 mg PO BID. Monitor kidney function. * 10/15: BNP 4,260. Creatinine 2.76. Continue Furosemide 40 mg PO BID. Monitor kidney function. * Echocardiogram showed: Summary 1. Definity contrast administered improved wall motion interpretation. 2. Left ventricular chamber dimension is normal. 3. Left ventricular systolic function is normal, estimated at 60-65. 4. There is moderate concentric increased left ventricular wall thickness. 5. The left ventricular diastolic function is grade I diastolic dysfunction. 6. E/e' 15 is elevated. 7. Left atrial chamber dimension is mildly enlarged. 8. 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 Consider ADOLFO if clinically indicated. 9. There is moderate to severe mitral valve regurgitation. 10. Circumferential echogenic mass measuring 1.4 cm x 0.8 cm attached to left atrial side of mitral valve annulus which probably calcified mass. There is an additional small calcified echogenic mass attached to left ventricular side of posterior mitral valve leaflet. Probably calcifications more likely than vegetations. Consider ADOLFO if clinically indicated. 11. There is mild tricuspid valve regurgitation. 12. Mild pulmonary hypertension, estimated pulmonary arterial systolic pressure is 40 mmHg. 13. There is trace pulmonic regurgitation. * Cardiology consulted, appreciate recommendations. (7) Chronic pain: Qualifiers: Chronic pain type: chronic pain syndrome Qualified Code(s): G89.4 - Chronic pain syndrome Code(s): G89.29 - Other chronic pain Status: Acute Assessment and Plan: Will resume patient's home morphine 15 mg Q 8 hours p.r.n. pain 7-10. (8) Abdominal aortic aneurysm (AAA) 3.0 cm to 5.5 cm in diameter in male: Code(s): I71.40 - Abdominal aortic aneurysm, without rupture, unspecified Status: Acute Assessment and Plan: Likely chronic will defer follow-up to patient's primary care provider for serial imaging (9) Bacteremia: Code(s): R78.81 - Bacteremia Status: Acute Assessment and Plan: 10/05: Both blood cultures resulted today with Gram + cocci in chains -->Spoke with ID pharm, reports could be either strep strain (covered by Ceftriaxone) or Entero strain (covered by Vanc) --->Will start vanc today to treat if ends up being entero strain to get ahead of the infection, will f/u tomorrow for final reads -Pt on Ceftriaxone 2g already via surg for low grade fevers and leukocytosis, will continue. -Ordered echo 10/05 to r/o endocarditis -Also repeat order for BC placed today 10/06: X1 BC final result yielding enterococcus faecalis, will continue with vanc, pending second final BC result -Will continue to trend BCs 10/07: After a slight bump, WBC continues to downtrend slightly, will continue to monitor. Per surg today: Spoke with pharmacist. Will change to ampicillin and gentamicin based on susceptibilities of the Enterococcus -->Gallbladder wound culture prelim resulted today for Enterococcus, continue ampicillin and gentamicin -Will continue to trend BCs, new draw tomorrow AM scheduled 10/08: -Slight WBC increase overnight, 10.4-->12.1 -Per surg: Continue ampicillin and gentamicin based on susceptibilities of the Enterococcus. -Switched abx yesterday from vanc ampicillin and gentamicin based on susceptibilities of the Enterococcus per pharm -Will continue to monitor daily labs 10/09: -Very slight, surg aware. Continue IV abx. Continue to monitor sunni tube, labs, VS. 10/10: -WBC 12.6, Ampicillin 2 gram IVPB q 8, Ceftriaxone 2 gram IVPB daily, and Metronidazole 500 mg PO q 8. Continue to monitor sunni tube, labs, VS. 10/11: WBC 12.5. Ampicillin 2 gram IVPB q 8, Ceftriaxone 2 gram IVPB daily, and Metronidazole 500 mg PO q 8. Continue to monitor sunni tube, labs, VS. 10/12: WBC 11.2. Ampicillin 2 gram IVPB q 8, Ceftriaxone 2 gram IVPB daily, and Metronidazole 500 mg PO q 8. Continue to monitor sunni tube, labs, VS. 10/13: WBC 12, Ampicillin 2 gram IVPB q 8, Ceftriaxone 2 gram IVPB daily, and Metronidazole 500 mg PO q 8. Continue to monitor sunni tube, labs, VS. PT/OT. Surgery following, appreciate recommendations. 10/14: -WBC 12.6, Ampicillin 2 gram IVPB q 8, Ceftriaxone 2 gram IVPB daily, and Metronidazole 500 mg PO q 8. Continue to monitor sunni tube, labs, VS. PT/OT. Surgery following, appreciate recommendations. 10/08 blood cultures negative. 10/15: WBC 11.8, Ampicillin 2 gram IVPB q 8, Ceftriaxone 2 gram IVPB daily, and Metronidazole 500 mg PO q 8. Continue to monitor sunni tube, labs, VS. PT/OT. Surgery following, appreciate recommendations. 10/08 blood cultures negative. (10) Hyponatremia: Code(s): E87.1 - Hypo-osmolality and hyponatremia Status: Acute Assessment and Plan: Levels have been low since admission despite IVF NS. -Sodium chl tablets started 10/06 to normalize -Will continue to trend pt status and daily labs 10/07: Na 134 10/08: Na 135 10/09: Na 134 10/10: Na 134. 10/11: Na+ 131. Receiving Sodium chloride 500 mg PO BID. 10/12: Na+ 132. Receiving Sodium chloride 500 mg PO BID. 10/13: Na+ 131. Receiving Sodium chloride 500 mg PO BID. 10/14: Na+ 132. Receiving Sodium chloride 500 mg PO BID. 10/15: Na+ 133. Receiving Sodium chloride 500 mg PO BID. (11) Antiplatelet or antithrombotic long-term use: Code(s): Z79.02 - nursing home (current) use of antithrombotics/antiplatelets Status: Acute Assessment and Plan: Pt with hx of pacemaker and plavix long-term use. Per surg: Plavix has been continued since his admission. He received a dose this morning. Will hold his Plavix now, which ideally is held for 5 days prior to a cholecystectomy. 10/07: Per surg: No longer plan to proceed with cholecystectomy this week. Patient to ill with sepsis and bacteremia as well as acute on chronic renal failure. Will resume Plavix today. -Plan for outpatient lap sunni potentially, surg to continue to follow. Plan Sunni tube placement 10/05, continue to monitor pt with labs, VS, and pain control. Surg started IV abx 10/04. Subjective Date/time seen: 10/15/24 09:52 Interval history: Patient sitting up in bed. Patient reports pain in his right abdomen is a 7, it is sharp at times and shoots down toward leg, pain is frequent. Patient denies chest pain, palpitations, headache, dizziness, nausea, or vomiting. is at the bedside. Review of Systems Review of Systems: All systems reviewed & are unremarkable except as noted in HPI and below Exam Const: General: no acute distress and uncomfortable Resp: Effort & Inspection: normal respiratory effort Auscultation: clear to auscultation bilaterally Cardio: Rate: regular rate Rhythm: regular rhythm GI: GI Palp: Yes Soft to palpation Auscultation: normal bowel sounds Other: Sunni tube with bile colored drainage, small amount. Neuro: Speech: normal speech Extrem: General: pedal edema bilaterally 2+ Psych: Mental Status: mental status grossly normal Affect: normal affect Objective Data Vital Signs Vital Signs: Vital Signs - 24 hr 10/14/24 14:00 10/14/24 19:57 10/14/24 20:00 Temperature 98.5 F 97.7 F Pulse Rate 86 82 82 Respiratory Rate 14 18 18 Blood Pressure 125/52 L 130/59 L Pulse Oximetry 100 98 98 Oxygen Delivery Room Air Fraction of Inspired Oxygen 21 Intake/Output Intake/Output: Intake & Output 10/12/24 10/13/24 10/14/24 10/15/24 23:59 23:59 23:59 23:59 Intake Total 1390 1120 1180 100 Output Total 1930 2000 3810 1000 Balance -540 -880 -2630 -900 Meds/Results Medications: Active Medications Generic Name Dose Route Start Last Admin Trade Name Robyq PRN Reason Stop Dose Admin Acetaminophen 650 mg 09/30/24 19:02 10/14/24 23:24 Acetaminophen 325 Mg Tablet PO 650 mg Q4H PRN Administration Mild Pain (1-3) or Fever Albuterol 2 puff 10/03/24 15:40 10/04/24 09:06 Albuterol Sulfate (*Sp) Aerosol 1 Puff INHALATION 2 puff Q6HRT PRN Administration Shortness Of Breath Or Wheezing Clopidogrel Bisulfate 75 mg 10/01/24 09:00 10/12/24 08:42 Clopidogrel Bisulfate 75 Mg Tablet PO 75 mg DAILY VU Administration Dextrose 12.5 gm 09/30/24 20:29 Dextrose 50% 25 Gm/50 Ml Syringe IV PUSH PRN PRN Hypoglycemia Protocol Docusate Sodium 100 mg 10/01/24 09:00 10/15/24 09:35 Docusate Sodium 100 Mg Capsule PO 100 mg DAILY VU Administration Ezetimibe 10 mg 10/01/24 09:00 10/15/24 09:35 Ezetimibe 10 Mg Tablet PO 10 mg DAILY VU Administration Epoetin Gordo-epbx 10,000 units 10/16/24 09:00 Epoetin [place]-Epbx 10,000 Units/Ml Vial SUB-Q TUTHSA@09 VU Famotidine 20 mg 09/30/24 21:00 10/15/24 09:35 Famotidine 20 Mg Tablet PO 20 mg Q12HR VU Administration Finasteride 5 mg 10/01/24 09:00 10/15/24 09:35 Finasteride 5 Mg Tablet PO 5 mg DAILY VU Administration Fluticasone Propionate 2 spray 09/30/24 20:28 10/14/24 08:33 Fluticasone Propionate 0.05% Na Spr 16 Gm Btl (*Bkc) NASAL 2 spray DAILY PRN Administration allergy symptoms Furosemide 40 mg 10/09/24 09:00 10/15/24 09:35 Furosemide 40 Mg Tablet PO 40 mg BID VU Administration Glucagon 1 mg 09/30/24 20:29 Glucagon For Inj 1 Mg Vial IM PRN PRN Hypoglycemia Protocol Glucose 15 gm 09/30/24 20:29 Glucose Oral Gel 15 Gm Of Glucse In 37.5 Gm Tube PO PRN PRN Hypoglycemia Protocol Guaifenesin 600 mg 10/11/24 21:00 10/15/24 09:35 Guaifenesin 12 Hr 600 Mg Tabcr PO 10/18/24 20:59 600 mg Q12HR VU Administration Heparin Sodium (Porcine) 5,000 units 09/30/24 21:00 10/14/24 08:34 Heparin Sodium 5,000 Units/Ml Vial SUB-Q 5,000 units Q12HR VU Administration Dextrose 1,000 mls @ 100 mls/hr 09/30/24 20:29 Dextrose 5% 1,000 Ml IVPB PRN PRN Hypoglycemia Protocol Ampicillin Sodium 2 gm in 100 mls @ 200 mls/hr 10/07/24 10:00 10/15/24 09:36 Ampicillin 2 Gm/Ns 100 Ml IVPB 200 mls/hr Q8H VU Administration Ceftriaxone Sodium 2 gm in 100 mls @ 200 mls/hr 10/08/24 14:00 10/14/24 13:58 Rocephin 2 Gm/Ns 100 Ml IVPB 200 mls/hr Q24H VU Administration Insulin Aspart 1 - 3 units 09/30/24 21:00 10/14/24 20:24 Insulin Aspart (*Bkc) 100 Units/Ml SUB-Q Not Given HS [facility] Protocol Insulin Aspart 3 - 6 units 10/01/24 08:00 10/15/24 08:56 Insulin Aspart (*Bkc) 100 Units/Ml SUB-Q Not Given TIDWM [facility] Protocol Metronidazole 500 mg 10/08/24 14:00 10/15/24 05:44 Metronidazole 500 Mg Tablet PO 500 mg Q8HR VU Administration Morphine Sulfate 15 mg 09/30/24 20:28 10/15/24 03:39 Morphine Sulfate (*Crx) 15 Mg Tab Ir PO 15 mg Q8H PRN Administration pain 7-10 Morphine Sulfate 15 mg 10/07/24 09:53 10/15/24 09:35 Morphine Sulfate (*Crx) 15 Mg Tab Ir PO 15 mg Q4H PRN Administration Pain Rated 7-10 Ondansetron HCl 4 mg 09/30/24 19:02 10/12/24 11:54 Ondansetron Inj 4 Mg/2 Ml Vial IV PUSH 4 mg Q4H PRN Administration Nausea Pantoprazole Sodium 40 mg 10/07/24 09:00 10/15/24 09:35 Pantoprazole 40 Mg Tablet PO 40 mg QAM VU Administration Polyethylene Glycol 17 gm 10/10/24 13:40 10/15/24 09:36 Polyethylene Glycol 3350 17 Gm Powd.Pack PO 17 gm QAM VU Administration Saccharomyces Boulardii 250 mg 10/11/24 17:00 10/15/24 09:35 Saccharomyces Boulardii 250 Mg Capsule PO 250 mg BID VU Administration Sodium Chloride 500 mg 10/06/24 17:00 10/15/24 09:35 Sodium Chloride 500 Mg Tablet PO 500 mg BID VU Administration Verapamil HCl 120 mg 09/30/24 21:00 10/15/24 09:35 Verapamil Hcl 120 Mg Tablet Immed Release PO 120 mg Q12HR VU Administration Radiology Results: ITS Impressions Abdomen/Pelvis CT 09/30/24 19:00 IMPRESSION: Gallbladder hydrops without inflammatory change. Dilated common bile duct, measuring 14 mm. No obstructing stone or mass detected. Correlate with biliary labs. 3.4 cm fusiform infrarenal abdominal aortic aneurysm. Consider follow-up in 3 years. Upper Quadrant Ultrasound 10/01/24 08:43 IMPRESSION: 1. Cholelithiasis with a normal-appearing gallbladder but with mild intra and extrahepatic biliary ductal dilation which raises concern for a nonvisualized distal obstructing choledocholithiasis. Correlate with liver function tests and if clinically indicated could consider further evaluation with either MRCP or ERCP. Hepatobiliary Scan [facility] 10/05/24 08:35 IMPRESSION: 1. No evident gallbladder activity consistent with acute cholecystitis. Cholecystostomy 10/05/24 16:57 IMPRESSION: 1. Successful ultrasound-guided cholecystostomy tube placement. 2. 35 mL bile was sent for aerobic, anaerobic, and fungal cultures. 3. The catheter will be managed by Dr. Brennan. Chest X-Ray 10/10/24 06:58 Impression: Clear lungs. Status post aortic valve replacement, with pacemaker device. Cholangiogram 10/12/24 14:45 IMPRESSION: 1. Cholelithiasis and choledocholithiasis obstructing distal choledocholithiasis with no observed contrast emptying into the duodenum. The cystic duct is patent. Consider ERCP for stone extraction and sphincterotomy to relieve the distal ductal obstruction. Labs Labs: Laboratory Results - last 24 hr 10/14/24 10/14/24 10/14/24 12:10 16:49 19:53 WBC RBC Hgb Hct MCV MCH MCHC RDW Plt Count MPV Immature Gran % (Auto) Neut % (Auto) Lymph % (Auto) [place] % (Auto) Eos % (Auto) Baso % (Auto) Lymph # (Auto) [place] # (Auto) Eos # (Auto) Baso # (Auto) Abs Immat Gran (auto) Absolute Neuts (auto) Absolute Nucleated RBC Nucleated RBC % Sodium Potassium Chloride Carbon Dioxide Anion Gap BUN Creatinine Estim Creat Clear Calc Estimated GFR Glucose POC Capillary Glucose 151 H 157 H 161 H Calcium Magnesium Total Bilirubin AST ALT Alkaline Phosphatase NT-Pro-B Natriuret Pep Total Protein Albumin 10/15/24 10/15/24 04:54 07:54 WBC 11.8 H RBC 3.19 L Hgb 9.3 L Hct 29.9 L MCV 93.7 MCH 29.2 MCHC 31.1 L RDW 15.1 H Plt Count 580 H MPV 8.9 Immature Gran % (Auto) 2.6 H Neut % (Auto) 73.5 H Lymph % (Auto) 8.9 L [place] % (Auto) 12.2 H Eos % (Auto) 2.0 Baso % (Auto) 0.8 Lymph # (Auto) 1.05 [place] # (Auto) 1.4 H Eos # (Auto) 0.2 Baso # (Auto) 0.1 Abs Immat Gran (auto) 0.31 H Absolute Neuts (auto) 8.7 H Absolute Nucleated RBC 0.020 H Nucleated RBC % 0.2 Sodium 133 L Potassium 4.7 Chloride 94 L Carbon Dioxide 30 Anion Gap 9 BUN 46 H Creatinine 2.76 H Estim Creat Clear Calc 20 Estimated GFR 22 L Glucose 128 H POC Capillary Glucose 122 H Calcium 8.8 Magnesium 1.8 Total Bilirubin 0.5 AST 32 ALT 17 Alkaline Phosphatase 95 NT-Pro-B Natriuret Pep 4260 H Total Protein 6.8 Albumin 3.1 L Quality VTE Prophylaxis VTE prophylaxis: pharmacologic ordered (Heparin 5000 units subQ q.12 hours.)
--- NOTE | 2024-10-15 11:01 | P.PNNP_ITS ---
Progress Note: A&P Assessment and Plan (1) Acute kidney injury: Code(s): N17.9 - Acute kidney failure, unspecified Status: Acute Assessment and Plan: * improvement noted if not relatively stable * as noted on admission * complicated by significant azotemia/elevated BUN on admission (see #3) * s/p holding diuretics and trial of IVFs * evaluation to date noted: * admission CT of A/P with no suspicious mass, obstructing stone, or hydronephrosis * prerenal urine electrolytes (by FeUrea) * urine eosinophils negative * mild proteinuria * normal/low CPK * UA without evidence of infection * suspect multifactorial etiology: * prerenal factors * overdiuresis * infection (bacteremia + cholecystitis) * other(?) * resumed on diuretic therapy (on 10/12) * follow trend of repeat labs and UOP (2) Stage 4 chronic kidney disease: Code(s): N18.4 - Chronic kidney disease, stage 4 (severe) Status: Chronic Assessment and Plan: * slow and progressive decline noted * GFR ~ 22 to 23 in * GFR ~ 20 to 21 in * GFR ~ 18 by July 2024 labs * creatinine has been running anywhere from 2.4 - 3.2mg/dl in the last 6 months * creatinine on 09/27/24 (outpatient labs) = 3.93mg/dl (GFR 15) -- but this may have related to his acute medical issues noted on admission * most likely due to diabetes and hypertension + chronic diuretic therapy (3) Azotemia: Code(s): R79.89 - Other specified abnormal findings of blood chemistry Status: Acute Assessment and Plan: * slow improvement noted if not stable * noted on admission * suspected related to diuretic therapy * however, underlying infection (see #4) likely a contributing factor as well... 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, 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 * moderate to severe mitral valve regurgitation * circumferential echogenic mass measuring 1.4 cm x 0.8 cm attached to left atrial side of mitral valve annulus which probably calcified mass; there is an additional small calcified echogenic mass attached to left ventricular side of posterior mitral valve leaflet -- probably calcifications more likely than vegetations; consider ADOLFO if clinically indicated * mild tricuspid valve regurgitation * mild pulmonary hypertension, estimated pulmonary arterial systolic pressure is 40 mmHg * trace pulmonic regurgitation * Cardiology following -- possible ADOLFO if patient agreeable... * repeat blood cultures (10/08) negative (5) Gallbladder hydrops: Code(s): K82.1 - Hydrops of gallbladder Status: Acute Assessment and Plan: * CT of A/P without overt acute cholecystitis * however, did have significant right upper quadrant pain on palpation with nausea and decreased oral intake * RUQ ultrasound results noted as well * LFTs normal * GI recommendations noted * Surgery following * s/p cholecystostomy tube placement (on 10/05) * will eventually need cholecystectomy * cholangiogram (10/12) suggestive of retained stone in bile duct -- ERCP planned this week per GI * continue supportive therapy (6) Anemia: Code(s): D64.9 - Anemia, unspecified Status: Acute Assessment and Plan: * due to combo of LEROY, CKD, acute illness/infection and possibly previous IVFs * dose with Epogen while hospitalized * follow trend of H/H (7) Hypertension: Code(s): I10 - Essential (primary) hypertension Status: Chronic Assessment and Plan: * reasonable control * follow trend of hemodynamics (8) Type 2 diabetes mellitus with hyperglycemia, without long-term current use of insulin: Code(s): E11.65 - Type 2 diabetes mellitus with hyperglycemia Status: Chronic Assessment and Plan: * follow accu-cheks * glycemic control per hospitalist Will continue to follow. L Subjective Date/time seen: 10/15/24 11:01 Interval history: Follow-up for acute kidney injury/acute renal failure on chronic kidney disease. No apparent distress noted at the time of my visit; still with on/off RUQ pain; however, eating and drinking reasonably well; noted plans for ERCP this week as recent cholangiogram demonstrated obstructing stone in bile duct; renal function/creatinine relatively stable at this time. Exam 2 Narrative: General: elderly but WD/WN male in NAD Heart: normal S1 and S2; no rub Lungs: clear anteriorly Abdomen: soft, nontender, nondistended, positive bowel sounds Extremities: no cyanosis or clubbing; trace - 1+ edema Skin: no nodules Objective Data Vital Signs Vital Signs: Vital Signs Temp Pulse Resp BP Pulse Ox O2 Del Method FiO2 10/15/24 10:54 98.2 F 86 17 143/58 H 100 10/15/24 09:35 79 18 98 Room Air 10/14/24 20:00 82 18 98 Room Air 10/14/24 19:57 97.7 F 82 18 130/59 L 98 Intake/Output Intake/Output: Intake & Output 10/12/24 10/13/24 10/14/24 10/15/24 23:59 23:59 23:59 23:59 Intake Total 1390 1120 1280 440 Output Total 1930 2000 3810 2110 Balance -186 -800 -1350 -3210 Meds/Results Medications: Active Medications Generic Name Dose Route Start Last Admin Trade Name Freq PRN Reason Stop Dose Admin Acetaminophen 650 mg 09/30/24 19:02 10/14/24 23:24 Acetaminophen 325 Mg Tablet PO 650 mg Q4H PRN Administration Mild Pain (1-3) or Fever Albuterol 2 puff 10/03/24 15:40 10/04/24 09:06 Albuterol Sulfate (*Sp) Aerosol 1 Puff INHALATION 2 puff Q6HRT PRN Administration Shortness Of Breath Or Wheezing Clopidogrel Bisulfate 75 mg 10/01/24 09:00 10/12/24 08:42 Clopidogrel Bisulfate 75 Mg Tablet PO 75 mg DAILY VU Administration Dextrose 12.5 gm 09/30/24 20:29 Dextrose 50% 25 Gm/50 Ml Syringe IV PUSH PRN PRN Hypoglycemia Protocol Docusate Sodium 100 mg 10/01/24 09:00 10/15/24 09:35 Docusate Sodium 100 Mg Capsule PO 100 mg DAILY VU Administration Ezetimibe 10 mg 10/01/24 09:00 10/15/24 09:35 Ezetimibe 10 Mg Tablet PO 10 mg DAILY VU Administration Epoetin Gordo-epbx 10,000 units 10/16/24 09:00 Epoetin Gordo-Epbx 10,000 Units/Ml Vial SUB-Q TUTHSA@09 VU Famotidine 20 mg 09/30/24 21:00 10/15/24 09:35 Famotidine 20 Mg Tablet PO 20 mg Q12HR VU Administration Finasteride 5 mg 10/01/24 09:00 10/15/24 09:35 Finasteride 5 Mg Tablet PO 5 mg DAILY VU Administration Fluticasone Propionate 2 spray 09/30/24 20:28 10/14/24 08:33 Fluticasone Propionate 0.05% Na Spr 16 Gm Btl (*Bkc) NASAL 2 spray DAILY PRN Administration allergy symptoms Furosemide 40 mg 10/09/24 09:00 10/15/24 09:35 Furosemide 40 Mg Tablet PO 40 mg BID VU Administration Glucagon 1 mg 09/30/24 20:29 Glucagon For Inj 1 Mg Vial IM PRN PRN Hypoglycemia Protocol Glucose 15 gm 09/30/24 20:29 Glucose Oral Gel 15 Gm Of Glucse In 37.5 Gm Tube PO PRN PRN Hypoglycemia Protocol Guaifenesin 600 mg 10/11/24 21:00 10/15/24 09:35 Guaifenesin 12 Hr 600 Mg Tabcr PO 10/18/24 20:59 600 mg Q12HR VU Administration Heparin Sodium (Porcine) 5,000 units 09/30/24 21:00 10/14/24 08:34 Heparin Sodium 5,000 Units/Ml Vial SUB-Q 5,000 units Q12HR VU Administration Dextrose 1,000 mls @ 100 mls/hr 09/30/24 20:29 Dextrose 5% 1,000 Ml IVPB PRN PRN Hypoglycemia Protocol Ampicillin Sodium 2 gm in 100 mls @ 200 mls/hr 10/07/24 10:00 10/15/24 10:06 Ampicillin 2 Gm/Ns 100 Ml IVPB Infused Q8H VU Infusion Ceftriaxone Sodium 2 gm in 100 mls @ 200 mls/hr 10/08/24 14:00 10/15/24 13:27 Rocephin 2 Gm/Ns 100 Ml IVPB 200 mls/hr Q24H VU Administration Insulin Aspart 1 - 3 units 09/30/24 21:00 10/14/24 20:24 Insulin Aspart (*Bkc) 100 Units/Ml SUB-Q Not Given HS VU Protocol Insulin Aspart 3 - 6 units 10/01/24 08:00 10/15/24 13:20 Insulin Aspart (*Bkc) 100 Units/Ml SUB-Q Not Given TIDWM [facility] Protocol Metronidazole 500 mg 10/08/24 14:00 10/15/24 13:26 Metronidazole 500 Mg Tablet PO 500 mg Q8HR VU Administration Morphine Sulfate 15 mg 10/07/24 09:53 10/15/24 14:31 Morphine Sulfate (*Crx) 15 Mg Tab Ir PO 15 mg Q4H PRN Administration Pain Rated 7-10 Ondansetron HCl 4 mg 09/30/24 19:02 10/12/24 11:54 Ondansetron Inj 4 Mg/2 Ml Vial IV PUSH 4 mg Q4H PRN Administration Nausea Pantoprazole Sodium 40 mg 10/07/24 09:00 10/15/24 09:35 Pantoprazole 40 Mg Tablet PO 40 mg QAM VU Administration Polyethylene Glycol 17 gm 10/10/24 13:40 10/15/24 09:36 Polyethylene Glycol 3350 17 Gm Powd.Pack PO 17 gm QAM VU Administration Saccharomyces Boulardii 250 mg 10/11/24 17:00 10/15/24 09:35 Saccharomyces Boulardii 250 Mg Capsule PO 250 mg BID VU Administration Sodium Chloride 500 mg 10/06/24 17:00 10/15/24 09:35 Sodium Chloride 500 Mg Tablet PO 500 mg BID VU Administration Verapamil HCl 120 mg 09/30/24 21:00 10/15/24 09:35 Verapamil Hcl 120 Mg Tablet Immed Release PO 120 mg Q12HR VU Administration Radiology Results: ITS Impressions Abdomen/Pelvis CT 09/30/24 19:00 IMPRESSION: Gallbladder hydrops without inflammatory change. Dilated common bile duct, measuring 14 mm. No obstructing stone or mass detected. Correlate with biliary labs. 3.4 cm fusiform infrarenal abdominal aortic aneurysm. Consider follow-up in 3 years. Upper Quadrant Ultrasound 10/01/24 08:43 IMPRESSION: 1. Cholelithiasis with a normal-appearing gallbladder but with mild intra and extrahepatic biliary ductal dilation which raises concern for a nonvisualized distal obstructing choledocholithiasis. Correlate with liver function tests and if clinically indicated could consider further evaluation with either MRCP or ERCP. Hepatobiliary Scan Nuclear Medicine 10/05/24 08:35 IMPRESSION: 1. No evident gallbladder activity consistent with acute cholecystitis. Cholecystostomy 10/05/24 16:57 IMPRESSION: 1. Successful ultrasound-guided cholecystostomy tube placement. 2. 35 mL bile was sent for aerobic, anaerobic, and fungal cultures. 3. The catheter will be managed by Dr. Brennan. Chest X-Ray 10/10/24 06:58 Impression: Clear lungs. Status post aortic valve replacement, with pacemaker device. Cholangiogram 10/12/24 14:45 IMPRESSION: 1. Cholelithiasis and choledocholithiasis obstructing distal choledocholithiasis with no observed contrast emptying into the duodenum. The cystic duct is patent. Consider ERCP for stone extraction and sphincterotomy to relieve the distal ductal obstruction. Labs Labs: Laboratory Tests 10/15/24 04:54 10/15/24 04:54 Calcium 8.8 Magnesium 1.8 Total Bilirubin 0.5 AST 32 ALT 17 Alkaline Phosphatase 95 NT-Pro-B Natriuret Pep 4260 H Total Protein 6.8 Albumin 3.1 L
--- NOTE | 2024-10-15 12:54 | WPDGIPROGNO ---
Progress Note: A&P Assessment and Plan (1) Enterococcal bacteremia: Code(s): R78.81 - Bacteremia; B95.2 - Enterococcus as the cause of diseases classified elsewhere Status: Acute Assessment and Plan: probably source is cholangitis (he is post cholecystostomy tube and cholangiogram noted retained stone in bile duct) he will need ERCP, probably tomorrow (plavix has been on hold), continue with iv abx hemodynamically stable, liver enzymes normal, no more abdominal pain and he is comfortable. calcifications in valve, cardiology on board for possible ADOLFO to rule out vegetations because of bacteremia (2) Cholangitis: Code(s): K83.09 - Other cholangitis Status: Acute Assessment and Plan: will need ercp (3) Choledocholithiasis with acute cholecystitis: Code(s): K80.42 - Calculus of bile duct with acute cholecystitis without obstruction Status: Acute Assessment and Plan: ercp (4) Antiplatelet or antithrombotic long-term use: Code(s): Z79.02 - intermediate (current) use of antithrombotics/antiplatelets Status: Acute Assessment and Plan: meds on hold (5) Type 2 diabetes mellitus with hyperglycemia, without long-term current use of insulin: Code(s): E11.65 - Type 2 diabetes mellitus with hyperglycemia Status: Chronic (6) Acute kidney injury superimposed on CKD: Code(s): N17.9 - Acute kidney failure, unspecified; N18.9 - Chronic kidney disease, unspecified Status: Acute Subjective Date/time seen: 10/15/24 12:54 Interval history: no new changes, comfortable Review of Systems Review of Systems: All systems reviewed & are unremarkable except as noted in HPI and below Exam Const: General: comfortable and no acute distress HENMT: Face/Nose/Sinus: Normal nares present Eyes: Sclera: sclerae normal Neck: Neck: supple Resp: Effort & Inspection: normal respiratory effort Auscultation: clear to auscultation bilaterally Cardio: Rate: regular rate Rhythm: regular rhythm GI: GI Palp: Yes Soft to palpation and No Guarding due to palpation present (GI) Auscultation: normal bowel sounds Other: Cholecystostomy tube with bile colored drainage. Skin: General skin exam: normal color Neuro: Speech: normal speech Extrem: General: pedal edema bilaterally 2+ Psych: Mental Status: mental status grossly normal Affect: normal affect Objective Data Vital Signs Vital Signs: Vital Signs - 24 hr 10/14/24 14:00 10/14/24 19:57 10/14/24 20:00 Temperature 98.5 F 97.7 F Pulse Rate 86 82 82 Respiratory Rate 14 18 18 Blood Pressure 125/52 L 130/59 L Pulse Oximetry 100 98 98 Oxygen Delivery Room Air Fraction of Inspired Oxygen 21 10/15/24 09:35 Temperature Pulse Rate 79 Respiratory Rate 18 Blood Pressure Pulse Oximetry 98 Oxygen Delivery Room Air Fraction of Inspired Oxygen 21 Intake/Output Intake/Output: Intake & Output 10/12/24 10/13/24 10/14/24 10/15/24 23:59 23:59 23:59 23:59 Intake Total 1390 1120 1180 100 Output Total 1930 1999 3810 [facility] -540 [phone] [phone] -2009 Meds/Results Medications: Active Medications Generic Name Dose Route Start Last Admin Trade Name Freq PRN Reason Stop Dose Admin Acetaminophen 650 mg 09/30/24 19:02 10/14/24 23:24 Acetaminophen 325 Mg Tablet PO 650 mg Q4H PRN Administration Mild Pain (1-3) or Fever Albuterol 2 puff 10/03/24 15:40 10/04/24 09:06 Albuterol Sulfate (*Sp) Aerosol 1 Puff INHALATION 2 puff Q6HRT PRN Administration Shortness Of Breath Or Wheezing Clopidogrel Bisulfate 75 mg 10/01/24 09:00 10/12/24 08:42 Clopidogrel Bisulfate 75 Mg Tablet PO 75 mg DAILY VU Administration Dextrose 12.5 gm 09/30/24 20:29 Dextrose 50% 25 Gm/50 Ml Syringe IV PUSH PRN PRN Hypoglycemia Protocol Docusate Sodium 100 mg 10/01/24 09:00 10/15/24 09:35 Docusate Sodium 100 Mg Capsule PO 100 mg DAILY VU Administration Ezetimibe 10 mg 10/01/24 09:00 10/15/24 09:35 Ezetimibe 10 Mg Tablet PO 10 mg DAILY VU Administration Epoetin Gordo-epbx 10,000 units 10/16/24 09:00 Epoetin Gordo-Epbx 10,000 Units/Ml Vial SUB-Q TUTA@09 [facility] Famotidine 20 mg 09/30/24 21:00 10/15/24 09:35 Famotidine 20 Mg Tablet PO 20 mg Q12HR VU Administration Finasteride 5 mg 10/01/24 09:00 10/15/24 09:35 Finasteride 5 Mg Tablet PO 5 mg DAILY VU Administration Fluticasone Propionate 2 spray 09/30/24 20:28 10/14/24 08:33 Fluticasone Propionate 0.05% Na Spr 16 Gm Btl (*Bkc) NASAL 2 spray DAILY PRN Administration allergy symptoms Furosemide 40 mg 10/09/24 09:00 10/15/24 09:35 Furosemide 40 Mg Tablet PO 40 mg BID VU Administration Glucagon 1 mg 09/30/24 20:29 Glucagon For Inj 1 Mg Vial IM PRN PRN Hypoglycemia Protocol Glucose 15 gm 09/30/24 20:29 Glucose Oral Gel 15 Gm Of Glucse In 37.5 Gm Tube PO PRN PRN Hypoglycemia Protocol Guaifenesin 600 mg 10/11/24 21:00 10/15/24 09:35 Guaifenesin 12 Hr 600 Mg Tabcr PO 10/18/24 20:59 600 mg Q12HR VU Administration Heparin Sodium (Porcine) 5,000 units 09/30/24 21:00 10/14/24 08:34 Heparin Sodium 5,000 Units/Ml Vial SUB-Q 5,000 units Q12HR VU Administration Dextrose 1,000 mls @ 100 mls/hr 09/30/24 20:29 Dextrose 5% 1,000 Ml IVPB PRN PRN Hypoglycemia Protocol Ampicillin Sodium 2 gm in 100 mls @ 200 mls/hr 10/07/24 10:00 10/15/24 09:36 Ampicillin 2 Gm/Ns 100 Ml IVPB 200 mls/hr Q8H VU Administration Ceftriaxone Sodium 2 gm in 100 mls @ 200 mls/hr 10/08/24 14:00 10/14/24 13:58 Rocephin 2 Gm/Ns 100 Ml IVPB 200 mls/hr Q24H VU Administration Insulin Aspart 1 - 3 units 09/30/24 21:00 10/14/24 20:24 Insulin Aspart (*Bkc) 100 Units/Ml SUB-Q Not Given HS VU Protocol Insulin Aspart 3 - 6 units 10/01/24 08:00 10/15/24 08:56 Insulin Aspart (*Bkc) 100 Units/Ml SUB-Q Not Given TIDWM VU Protocol Metronidazole 500 mg 10/08/24 14:00 10/15/24 05:44 Metronidazole 500 Mg Tablet PO 500 mg Q8HR VU Administration Morphine Sulfate 15 mg 09/30/24 20:28 10/15/24 03:39 Morphine Sulfate (*Crx) 15 Mg Tab Ir PO 15 mg Q8H PRN Administration pain 7-10 Morphine Sulfate 15 mg 10/07/24 09:53 10/15/24 09:35 Morphine Sulfate (*Crx) 15 Mg Tab Ir PO 15 mg Q4H PRN Administration Pain Rated 7-10 Ondansetron HCl 4 mg 09/30/24 19:02 10/12/24 11:54 Ondansetron Inj 4 Mg/2 Ml Vial IV PUSH 4 mg Q4H PRN Administration Nausea Pantoprazole Sodium 40 mg 10/07/24 09:00 10/15/24 09:35 Pantoprazole 40 Mg Tablet PO 40 mg QAM VU Administration Polyethylene Glycol 17 gm 10/10/24 13:40 10/15/24 09:36 Polyethylene Glycol 3350 17 Gm Powd.Pack PO 17 gm QAM VU Administration Saccharomyces Boulardii 250 mg 10/11/24 17:00 10/15/24 09:35 Saccharomyces Boulardii 250 Mg Capsule PO 250 mg BID VU Administration Sodium Chloride 500 mg 10/06/24 17:00 10/15/24 09:35 Sodium Chloride 500 Mg Tablet PO 500 mg BID VU Administration Verapamil HCl 120 mg 09/30/24 21:00 10/15/24 09:35 Verapamil Hcl 120 Mg Tablet Immed Release PO 120 mg Q12HR VU Administration Radiology Results: ITS Impressions Abdomen/Pelvis CT 09/30/24 19:00 IMPRESSION: Gallbladder hydrops without inflammatory change. Dilated common bile duct, measuring 14 mm. No obstructing stone or mass detected. Correlate with biliary labs. 3.4 cm fusiform infrarenal abdominal aortic aneurysm. Consider follow-up in 3 years. Upper Quadrant Ultrasound 10/01/24 08:43 IMPRESSION: 1. Cholelithiasis with a normal-appearing gallbladder but with mild intra and extrahepatic biliary ductal dilation which raises concern for a nonvisualized distal obstructing choledocholithiasis. Correlate with liver function tests and if clinically indicated could consider further evaluation with either MRCP or ERCP. Hepatobiliary Scan Nuclear Medicine 10/05/24 08:35 IMPRESSION: 1. No evident gallbladder activity consistent with acute cholecystitis. Cholecystostomy 10/05/24 16:57 IMPRESSION: 1. Successful ultrasound-guided cholecystostomy tube placement. 2. 35 mL bile was sent for aerobic, anaerobic, and fungal cultures. 3. The catheter will be managed by Dr. Brennan. Chest X-Ray 10/10/24 06:58 Impression: Clear lungs. Status post aortic valve replacement, with pacemaker device. Cholangiogram 10/12/24 14:45 IMPRESSION: 1. Cholelithiasis and choledocholithiasis obstructing distal choledocholithiasis with no observed contrast emptying into the duodenum. The cystic duct is patent. Consider ERCP for stone extraction and sphincterotomy to relieve the distal ductal obstruction. Labs Labs: Laboratory Results - last 24 hr 10/14/24 10/14/24 10/15/24 16:49 19:53 04:54 WBC 11.8 H RBC 3.19 L Hgb 9.3 L Hct 29.9 L MCV 93.7 MCH 29.2 MCHC 31.1 L RDW 15.1 H Plt Count 580 H MPV 8.9 Immature Gran % (Auto) 2.6 H Neut % (Auto) 73.5 H Lymph % (Auto) 8.9 L [place] % (Auto) 12.2 H Eos % (Auto) 2.0 Baso % (Auto) 0.8 Lymph # (Auto) 1.05 [place] # (Auto) 1.4 H Eos # (Auto) 0.2 Baso # (Auto) 0.1 Abs Immat Gran (auto) 0.31 H Absolute Neuts (auto) 8.7 H Absolute Nucleated RBC 0.020 H Nucleated RBC % 0.2 Sodium 133 L Potassium 4.7 Chloride 94 L Carbon Dioxide 30 Anion Gap 9 BUN 46 H Creatinine 2.76 H Estim Creat Clear Calc 20 Estimated GFR 22 L Glucose 128 H POC Capillary Glucose 157 H 161 H Calcium 8.8 Magnesium 1.8 Total Bilirubin 0.5 AST 32 ALT 17 Alkaline Phosphatase 95 NT-Pro-B Natriuret Pep 4260 H Total Protein 6.8 Albumin 3.1 L 10/15/24 10/15/24 07:54 12:25 WBC RBC Hgb Hct MCV MCH MCHC RDW Plt Count MPV Immature Gran % (Auto) Neut % (Auto) Lymph % (Auto) [place] % (Auto) Eos % (Auto) Baso % (Auto) Lymph # (Auto) [place] # (Auto) Eos # (Auto) Baso # (Auto) Abs Immat Gran (auto) Absolute Neuts (auto) Absolute Nucleated RBC Nucleated RBC % Sodium Potassium Chloride Carbon Dioxide Anion Gap BUN Creatinine Estim Creat Clear Calc Estimated GFR Glucose POC Capillary Glucose 122 H 138 H Calcium Magnesium Total Bilirubin AST ALT Alkaline Phosphatase NT-Pro-B Natriuret Pep Total Protein Albumin
[2024-10-15] MEDS: cefTRIAXone 2 GM/NS 100 ML 2 GM/100 ML BAG IVPB (13:27)
[2024-10-15 14:14] VITALS: BP 143/58; PULSE 86; RESP 17; TEMP 36.8; O2SAT 100
--- NOTE | 2024-10-15 14:17 | P.PNGS_ITS ---
Progress Note: A&P Assessment and Plan (1) Cholelithiasis with acute cholecystitis without biliary obstruction: Qualifiers: Cholelithiasis location: gallbladder Qualified Code(s): K80.00 - Calculus of gallbladder with acute cholecystitis without obstruction Code(s): K80.00 - Calculus of gallbladder with acute cholecystitis without obstruction Status: Acute Assessment and Plan: Relieved with placement of cholecystostomy tube. Abdomen benign aside from chronic distention and no further abdominal pain. (2) Enterococcal bacteremia: Code(s): R78.81 - Bacteremia; B95.2 - Enterococcus as the cause of diseases classified elsewhere Status: Acute Assessment and Plan: Cultures from 10/08 showed no growth. Continue ampicillin, ceftriaxone, and flag yl based on susceptibilities of the Enterococcus. (3) Antiplatelet or antithrombotic long-term use: Code(s): Z79.02 - care home (current) use of antithrombotics/antiplatelets Status: Acute Assessment and Plan: Clopidogrel being held. When patient is discharged, he will likely go home with cholecystostomy tube in place. (4) Pacemaker: Code(s): Z95.0 - Presence of cardiac pacemaker Status: Acute Assessment and Plan: Cannot have MRCP with pacemaker in place. 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: Qualifiers: Diabetes mellitus terminal operator insulin use: without terminal operator use Diabetes mellitus complication detail: with chronic kidney disease Chronic kidney disease stage: unspecified stage Qualified Code(s): E11.22 - Type 2 diabetes mellitus with diabetic chronic kidney disease Code(s): E11.29 - Type 2 diabetes mellitus with other diabetic kidney complication Status: Chronic (6) Acute kidney injury superimposed on CKD: Code(s): N17.9 - Acute kidney failure, unspecified; N18.9 - Chronic kidney disease, unspecified Status: Acute Assessment and Plan: Continue to monitor with serial labs. GFR 20. 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 Cystic duct is patent. GI planning for ERCP for stone extraction and sphincterotomy tomorrow. Will manage accordingly. Subjective Subjective Date/Time Seen: 10/15/24 14:17 Patient reports: no new complaints Interval history: Patient is doing well today. Tolerating regular diet without nausea or vomiting. Having regular bowel movements. Cholecystostomy drain functioning properly with small amount of green bilious fluid in the bag. Cholangiogram demonstrated obstructing choledocholithiasis. ERCP scheduled for tomorrow with GI. WBC 11.8. Vital signs stable. Exam GI: Inspection: distended, obesity, no visible herniation and other (Cholecystostomy tube draining bile appropriately) Auscultation: normal bowel sounds Rectal Exam: deferred Objective Data Vital Signs Vital Signs: Vital Signs - 24 hr 10/14/24 19:57 10/14/24 20:00 10/15/24 09:35 Temperature 97.7 F Pulse Rate 82 82 79 Respiratory Rate 18 18 18 Blood Pressure 130/59 L Pulse Oximetry 98 98 98 Oxygen Delivery Room Air Room Air Fraction of Inspired Oxygen 21 21 Intake/Output Intake/Output: Intake & Output 10/12/24 10/13/24 10/14/24 10/15/24 23:59 23:59 23:59 23:59 Intake Total 1390 1120 1280 200 Output Total 1930 2000 3810 2110 [facility] -540 -880 -2530 -4650 Meds/Results Medications: Active Medications Generic Name Dose Route Start Last Admin Trade Name Freq PRN Reason Stop Dose Admin Acetaminophen 650 mg 09/30/24 19:02 10/14/24 23:24 Acetaminophen 325 Mg Tablet PO 650 mg Q4H PRN Administration Mild Pain (1-3) or Fever Albuterol 2 puff 10/03/24 15:40 10/04/24 09:06 Albuterol Sulfate (*Sp) Aerosol 1 Puff INHALATION 2 puff Q6HRT PRN Administration Shortness Of Breath Or Wheezing Clopidogrel Bisulfate 75 mg 10/01/24 09:00 10/12/24 08:42 Clopidogrel Bisulfate 75 Mg Tablet PO 75 mg DAILY VU Administration Dextrose 12.5 gm 09/30/24 20:29 Dextrose 50% 25 Gm/50 Ml Syringe IV PUSH PRN PRN Hypoglycemia Protocol Docusate Sodium 100 mg 10/01/24 09:00 10/15/24 09:35 Docusate Sodium 100 Mg Capsule PO 100 mg DAILY VU Administration Ezetimibe 10 mg 10/01/24 09:00 10/15/24 09:35 Ezetimibe 10 Mg Tablet PO 10 mg DAILY VU Administration Epoetin Gordo-epbx 10,000 units 10/16/24 09:00 Epoetin Gordo-Epbx 10,000 Units/Ml Vial SUB-Q TUTHSA@09 VU Famotidine 20 mg 09/30/24 21:00 10/15/24 09:35 Famotidine 20 Mg Tablet PO 20 mg Q12HR VU Administration Finasteride 5 mg 10/01/24 09:00 10/15/24 09:35 Finasteride 5 Mg Tablet PO 5 mg DAILY VU Administration Fluticasone Propionate 2 spray 09/30/24 20:28 10/14/24 08:33 Fluticasone Propionate 0.05% Na Spr 16 Gm Btl (*Bkc) NASAL 2 spray DAILY PRN Administration allergy symptoms Furosemide 40 mg 10/09/24 09:00 10/15/24 09:35 Furosemide 40 Mg Tablet PO 40 mg BID VU Administration Glucagon 1 mg 09/30/24 20:29 Glucagon For Inj 1 Mg Vial IM PRN PRN Hypoglycemia Protocol Glucose 15 gm 09/30/24 20:29 Glucose Oral Gel 15 Gm Of Glucse In 37.5 Gm Tube PO PRN PRN Hypoglycemia Protocol Guaifenesin 600 mg 10/11/24 21:00 10/15/24 09:35 Guaifenesin 12 Hr 600 Mg Tabcr PO 10/18/24 20:59 600 mg Q12HR VU Administration Heparin Sodium (Porcine) 5,000 units 09/30/24 21:00 10/14/24 08:34 Heparin Sodium 5,000 Units/Ml Vial SUB-Q 5,000 units Q12HR VU Administration Dextrose 1,000 mls @ 100 mls/hr 09/30/24 20:29 Dextrose 5% 1,000 Ml IVPB PRN PRN Hypoglycemia Protocol Ampicillin Sodium 2 gm in 100 mls @ 200 mls/hr 10/07/24 10:00 10/15/24 10:06 Ampicillin 2 Gm/Ns 100 Ml IVPB Infused Q8H VU Infusion Ceftriaxone Sodium 2 gm in 100 mls @ 200 mls/hr 10/08/24 14:00 10/15/24 13:27 Rocephin 2 Gm/Ns 100 Ml IVPB 200 mls/hr Q24H VU Administration Insulin Aspart 1 - 3 units 09/30/24 21:00 10/14/24 20:24 Insulin Aspart (*Bkc) 100 Units/Ml SUB-Q Not Given HS [facility] Protocol Insulin Aspart 3 - 6 units 10/01/24 08:00 10/15/24 13:20 Insulin Aspart (*Bkc) 100 Units/Ml SUB-Q Not Given TIDWM [facility] Protocol Metronidazole 500 mg 10/08/24 14:00 10/15/24 13:26 Metronidazole 500 Mg Tablet PO 500 mg Q8HR VU Administration Morphine Sulfate 15 mg 09/30/24 20:28 10/15/24 03:39 Morphine Sulfate (*Crx) 15 Mg Tab Ir PO 15 mg Q8H PRN Administration pain 7-10 Morphine Sulfate 15 mg 10/07/24 09:53 10/15/24 09:35 Morphine Sulfate (*Crx) 15 Mg Tab Ir PO 15 mg Q4H PRN Administration Pain Rated 7-10 Ondansetron HCl 4 mg 09/30/24 19:02 10/12/24 11:54 Ondansetron Inj 4 Mg/2 Ml Vial IV PUSH 4 mg Q4H PRN Administration Nausea Pantoprazole Sodium 40 mg 10/07/24 09:00 10/15/24 09:35 Pantoprazole 40 Mg Tablet PO 40 mg QAM VU Administration Polyethylene Glycol 17 gm 10/10/24 13:40 10/15/24 09:36 Polyethylene Glycol 3350 17 Gm Powd.Pack PO 17 gm QAM VU Administration Saccharomyces Boulardii 250 mg 10/11/24 17:00 10/15/24 09:35 Saccharomyces Boulardii 250 Mg Capsule PO 250 mg BID VU Administration Sodium Chloride 500 mg 10/06/24 17:00 10/15/24 09:35 Sodium Chloride 500 Mg Tablet PO 500 mg BID VU Administration Verapamil HCl 120 mg 09/30/24 21:00 10/15/24 09:35 Verapamil Hcl 120 Mg Tablet Immed Release PO 120 mg Q12HR VU Administration Radiology Results: ITS Impressions Abdomen/Pelvis CT 09/30/24 19:00 IMPRESSION: Gallbladder hydrops without inflammatory change. Dilated common bile duct, measuring 14 mm. No obstructing stone or mass detected. Correlate with biliary labs. 3.4 cm fusiform infrarenal abdominal aortic aneurysm. Consider follow-up in 3 years. Upper Quadrant Ultrasound 10/01/24 08:43 IMPRESSION: 1. Cholelithiasis with a normal-appearing gallbladder but with mild intra and extrahepatic biliary ductal dilation which raises concern for a nonvisualized distal obstructing choledocholithiasis. Correlate with liver function tests and if clinically indicated could consider further evaluation with either MRCP or ERCP. Hepatobiliary Scan Nuclear Medicine 10/05/24 08:35 IMPRESSION: 1. No evident gallbladder activity consistent with acute cholecystitis. Cholecystostomy 10/05/24 16:57 IMPRESSION: 1. Successful ultrasound-guided cholecystostomy tube placement. 2. 35 mL bile was sent for aerobic, anaerobic, and fungal cultures. 3. The catheter will be managed by Dr. Brennan. Chest X-Ray 10/10/24 06:58 Impression: Clear lungs. Status post aortic valve replacement, with pacemaker device. Cholangiogram 10/12/24 14:45 IMPRESSION: 1. Cholelithiasis and choledocholithiasis obstructing distal choledocholithiasis with no observed contrast emptying into the duodenum. The cystic duct is patent. Consider ERCP for stone extraction and sphincterotomy to relieve the distal ductal obstruction. Labs Labs: Laboratory Results - last 24 hr 10/14/24 10/14/24 10/15/24 16:49 19:53 04:54 WBC 11.8 H RBC 3.19 L Hgb 9.3 L Hct 29.9 L MCV 93.7 MCH 29.2 MCHC 31.1 L RDW 15.1 H Plt Count 580 H MPV 8.9 Immature Gran % (Auto) 2.6 H Neut % (Auto) 73.5 H Lymph % (Auto) 8.9 L [place] % (Auto) 12.2 H Eos % (Auto) 2.0 Baso % (Auto) 0.8 Lymph # (Auto) 1.05 [place] # (Auto) 1.4 H Eos # (Auto) 0.2 Baso # (Auto) 0.1 Abs Immat Gran (auto) 0.31 H Absolute Neuts (auto) 8.7 H Absolute Nucleated RBC 0.020 H Nucleated RBC % 0.2 Sodium 133 L Potassium 4.7 Chloride 94 L Carbon Dioxide 30 Anion Gap 9 BUN 46 H Creatinine 2.76 H Estim Creat Clear Calc 20 Estimated GFR 22 L Glucose 128 H POC Capillary Glucose 157 H 161 H Calcium 8.8 Magnesium 1.8 Total Bilirubin 0.5 AST 32 ALT 17 Alkaline Phosphatase 95 NT-Pro-B Natriuret Pep 4260 H Total Protein 6.8 Albumin 3.1 L 10/15/24 10/15/24 07:54 12:25 WBC RBC Hgb Hct MCV MCH MCHC RDW Plt Count MPV Immature Gran % (Auto) Neut % (Auto) Lymph % (Auto) [place] % (Auto) Eos % (Auto) Baso % (Auto) Lymph # (Auto) [place] # (Auto) Eos # (Auto) Baso # (Auto) Abs Immat Gran (auto) Absolute Neuts (auto) Absolute Nucleated RBC Nucleated RBC % Sodium Potassium Chloride Carbon Dioxide Anion Gap BUN Creatinine Estim Creat Clear Calc Estimated GFR Glucose POC Capillary Glucose 122 H 138 H Calcium Magnesium Total Bilirubin AST ALT Alkaline Phosphatase NT-Pro-B Natriuret Pep Total Protein Albumin
[2024-10-15] MEDS: ACETAMINOPHEN 325 MG TABLET 650 MG PO (17:13)
[2024-10-15 20:53] VITALS: BP 146/55; PULSE 106; RESP 12; TEMP 36.7; O2SAT 90
[2024-10-16] VITALS (11 sets, daily range): BP systolic 110–168; BP diastolic 57–83; PULSE 77–96; RESP 11–19; TEMP 36.4–37.3; O2SAT 94–100
[2024-10-16] MEDS: MORPHINE SULFATE (*CRX) 15 MG TAB IR PO ×6 (00:19→21:32)
[2024-10-16] MEDS: AMPICILLIN 2 GM/NS 100 ML 2 GM/100 ML BAG IVPB ×3 (02:00→23:23)
[2024-10-16 05:33] LABS: Hematocrit 29.5 % (42.0-52.0); Hemoglobin 9.2 g/dL (14.0-18.0); Immature Granulocyte Percent A 2.5 % (0-0.5); Lymphocytes Absolute Auto 1.09 K/mm3 (0.9-3.2); Mean Corpuscular HGB Conc 31.2 g/dl (32-36); Mean Corpuscular Hemoglobin 29.3 pg (26-34); Mean Corpuscular Volume 93.9 fl (80-100); Nucleated Red Blood Cells Absolute Auto 0.000 K/mm3 (0.0-0.012); Nucleated Red Blood Cells Perc 0.0 % (0.0-0.2); Platelet Count Result 625 k/mm3 (150-375); Red Blood Count 3.14 M/mm3 (4.6-6.20); White Blood Count 12.4 K/mm3 (4.5-10.0)
[2024-10-16 05:58] LABS: Alanine Aminotransferase 16 U/L (6-50); Albumin Level 3.0 g/dL (3.5-5.1); Alkaline Phosphatase 87 U/L (38-126); Anion Gap 9 mmol/L (4-12); Aspartate Amino Transferase 31 U/L (17-59); Bilirubin,Total 0.4 mg/dL (0.2-1.3); Blood Urea Nitrogen 45 mg/dL (9-20); Calcium 8.8 mg/dL (8.4-10.2); Carbon Dioxide 33 mmol/L (22-30); Chloride 93 mmol/L (98-107); Estimated CRCL calculation 21 ml/min; Estimated Glomerular Filt Rate 23; Glucose 116 mg/dL (65-110); Magnesium 1.7 mg/dL (1.6-2.3); Potassium 4.6 mmol/L (3.4-5.0); Sodium 135 mmol/L (137-145); Total Protein 6.6 g/dL (6.3-8.2)
[2024-10-16 06:11] LABS: NT Pro B Type Natriuretic Pept 3660 pg/mL (19.9-100)
--- NOTE | 2024-10-16 09:10 | P.PNGS_ITS ---
Progress Note: A&P Assessment and Plan (1) Cholelithiasis with acute cholecystitis without biliary obstruction: Qualifiers: Cholelithiasis location: gallbladder Qualified Code(s): K80.00 - Calculus of gallbladder with acute cholecystitis without obstruction Code(s): K80.00 - Calculus of gallbladder with acute cholecystitis without obstruction Status: Acute Assessment and Plan: Relieved with placement of cholecystostomy tube. Abdomen benign aside from chronic distention and no further abdominal pain. (2) Enterococcal bacteremia: Code(s): R78.81 - Bacteremia; B95.2 - Enterococcus as the cause of diseases classified elsewhere Status: Acute Assessment and Plan: Cultures from 10/08 showed no growth. Continue ampicillin, ceftriaxone, and flag yl based on susceptibilities of the Enterococcus. (3) Antiplatelet or antithrombotic long-term use: Code(s): Z79.02 - senior living (current) use of antithrombotics/antiplatelets Status: Acute Assessment and Plan: Clopidogrel being held. When patient is discharged, he will likely go home with cholecystostomy tube in place. (4) Pacemaker: Code(s): Z95.0 - Presence of cardiac pacemaker Status: Acute Assessment and Plan: Cannot have MRCP with pacemaker in place. 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: Qualifiers: Diabetes mellitus terminal operations supervisor insulin use: without terminal operations supervisor use Diabetes mellitus complication detail: with chronic kidney disease Chronic kidney disease stage: unspecified stage Qualified Code(s): E11.22 - Type 2 diabetes mellitus with diabetic chronic kidney disease Code(s): E11.29 - Type 2 diabetes mellitus with other diabetic kidney complication Status: Chronic (6) Acute kidney injury superimposed on CKD: Code(s): N17.9 - Acute kidney failure, unspecified; N18.9 - Chronic kidney disease, unspecified Status: Acute Assessment and Plan: Continue to monitor with serial labs. GFR 20. 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 Cystic duct is patent. GI planning for ERCP for stone extraction today at 1345. Will follow for results and manage accordingly. Subjective Subjective Date/Time Seen: 10/16/24 09:10 Patient reports: no new complaints Interval history: Patient is doing well today. He is feeling ready for ERCP. No abdominal pain. No nausea/vomiting. Normal BMs. WBC today is 12.4, which has been fairly unchanged for the past week. Afebrile. Exam GI: Inspection: distended, obesity, no visible herniation and other (Cholecystostomy tube draining bile appropriately) Auscultation: normal bowel sounds Rectal Exam: deferred Objective Data Vital Signs Vital Signs: Vital Signs - 24 hr 10/15/24 09:35 10/15/24 14:14 10/15/24 20:53 Temperature 98.2 F 98.1 F Pulse Rate 79 86 106 H Respiratory Rate 18 17 12 Blood Pressure 143/58 H 146/55 H Pulse Oximetry 98 100 90 Oxygen Delivery Room Air Fraction of Inspired Oxygen 10/16/24 05:07 Temperature 97.8 F Pulse Rate 88 Respiratory Rate 12 Blood Pressure 158/76 H Pulse Oximetry 94 Oxygen Delivery Fraction of Inspired Oxygen Intake/Output Intake/Output: Intake & Output 10/13/24 10/14/24 10/15/24 10/16/24 23:59 23:59 23:59 23:59 Intake Total 1120 1280 880 600 Output Total 1999 3810 2910 1000 [facility] -880 -2530 -2030 -400 Meds/Results Medications: Active Medications Generic Name Dose Route Start Last Admin Trade Name Freq PRN Reason Stop Dose Admin Acetaminophen 650 mg 09/30/24 19:02 10/15/24 17:13 Acetaminophen 325 Mg Tablet PO 650 mg Q4H PRN Administration Mild Pain (1-3) or Fever Albuterol 2 puff 10/03/24 15:40 10/04/24 09:06 Albuterol Sulfate (*Sp) Aerosol 1 Puff INHALATION 2 puff Q6HRT PRN Administration Shortness Of Breath Or Wheezing Clopidogrel Bisulfate 75 mg 10/01/24 09:00 10/12/24 08:42 Clopidogrel Bisulfate 75 Mg Tablet PO 75 mg DAILY VU Administration Dextrose 12.5 gm 09/30/24 20:29 Dextrose 50% 25 Gm/50 Ml Syringe IV PUSH PRN PRN Hypoglycemia Protocol Docusate Sodium 100 mg 10/01/24 09:00 10/15/24 09:35 Docusate Sodium 100 Mg Capsule PO 100 mg DAILY VU Administration Ezetimibe 10 mg 10/01/24 09:00 10/15/24 09:35 Ezetimibe 10 Mg Tablet PO 10 mg DAILY VU Administration Epoetin Gordo-epbx 10,000 units 10/16/24 09:00 Epoetin [place]-Epbx 10,000 Units/Ml Vial SUB-Q TUTHSA@09 VU Famotidine 20 mg 09/30/24 21:00 10/15/24 20:38 Famotidine 20 Mg Tablet PO 20 mg Q12HR VU Administration Finasteride 5 mg 10/01/24 09:00 10/15/24 09:35 Finasteride 5 Mg Tablet PO 5 mg DAILY VU Administration Fluticasone Propionate 2 spray 09/30/24 20:28 10/14/24 08:33 Fluticasone Propionate 0.05% Na Spr 16 Gm Btl (*Bkc) NASAL 2 spray DAILY PRN Administration allergy symptoms Furosemide 40 mg 10/09/24 09:00 10/15/24 17:13 Furosemide 40 Mg Tablet PO 40 mg BID VU Administration Glucagon 1 mg 09/30/24 20:29 Glucagon For Inj 1 Mg Vial IM PRN PRN Hypoglycemia Protocol Glucose 15 gm 09/30/24 20:29 Glucose Oral Gel 15 Gm Of Glucse In 37.5 Gm Tube PO PRN PRN Hypoglycemia Protocol Guaifenesin 600 mg 10/11/24 21:00 10/15/24 20:38 Guaifenesin 12 Hr 600 Mg Tabcr PO 10/18/24 20:59 600 mg Q12HR VU Administration Heparin Sodium (Porcine) 5,000 units 09/30/24 21:00 10/14/24 08:34 Heparin Sodium 5,000 Units/Ml Vial SUB-Q 5,000 units Q12HR VU Administration Dextrose 1,000 mls @ 100 mls/hr 09/30/24 20:29 Dextrose 5% 1,000 Ml IVPB PRN PRN Hypoglycemia Protocol Ampicillin Sodium 2 gm in 100 mls @ 200 mls/hr 10/07/24 10:00 10/16/24 03:45 Ampicillin 2 Gm/Ns 100 Ml IVPB Infused Q8H VU Infusion Ceftriaxone Sodium 2 gm in 100 mls @ 200 mls/hr 10/08/24 14:00 10/15/24 13:57 Rocephin 2 Gm/Ns 100 Ml IVPB Infused Q24H VU Infusion Insulin Aspart 1 - 3 units 09/30/24 21:00 10/16/24 00:18 Insulin Aspart (*Bkc) 100 Units/Ml SUB-Q Not Given HS [facility] Protocol Insulin Aspart 3 - 6 units 10/01/24 08:00 10/15/24 17:39 Insulin Aspart (*Bkc) 100 Units/Ml SUB-Q Not Given TIDWM [facility] Protocol Metronidazole 500 mg 10/08/24 14:00 10/16/24 04:23 Metronidazole 500 Mg Tablet PO 500 mg Q8HR VU Administration Morphine Sulfate 15 mg 10/07/24 09:53 10/16/24 08:16 Morphine Sulfate (*Crx) 15 Mg Tab Ir PO 15 mg Q4H PRN Administration Pain Rated 7-10 Ondansetron HCl 4 mg 09/30/24 19:02 10/12/24 11:54 Ondansetron Inj 4 Mg/2 Ml Vial IV PUSH 4 mg Q4H PRN Administration Nausea Pantoprazole Sodium 40 mg 10/07/24 09:00 10/15/24 09:35 Pantoprazole 40 Mg Tablet PO 40 mg QAM VU Administration Polyethylene Glycol 17 gm 10/10/24 13:40 10/15/24 09:36 Polyethylene Glycol 3350 17 Gm Powd.Pack PO 17 gm QAM UV Administration Saccharomyces Boulardii 250 mg 10/11/24 17:00 10/15/24 17:13 Saccharomyces Boulardii 250 Mg Capsule PO 250 mg BID VU Administration Sodium Chloride 500 mg 10/06/24 17:00 10/15/24 17:14 Sodium Chloride 500 Mg Tablet PO 500 mg BID VU Administration Verapamil HCl 120 mg 09/30/24 21:00 10/15/24 20:38 Verapamil Hcl 120 Mg Tablet Immed Release PO 120 mg Q12HR VU Administration Radiology Results: ITS Impressions Abdomen/Pelvis CT 09/30/24 19:00 IMPRESSION: Gallbladder hydrops without inflammatory change. Dilated common bile duct, measuring 14 mm. No obstructing stone or mass detected. Correlate with biliary labs. 3.4 cm fusiform infrarenal abdominal aortic aneurysm. Consider follow-up in 3 years. Upper Quadrant Ultrasound 10/01/24 08:43 IMPRESSION: 1. Cholelithiasis with a normal-appearing gallbladder but with mild intra and extrahepatic biliary ductal dilation which raises concern for a nonvisualized distal obstructing choledocholithiasis. Correlate with liver function tests and if clinically indicated could consider further evaluation with either MRCP or ERCP. Hepatobiliary Scan Nuclear Medicine 10/05/24 08:35 IMPRESSION: 1. No evident gallbladder activity consistent with acute cholecystitis. Cholecystostomy 10/05/24 16:57 IMPRESSION: 1. Successful ultrasound-guided cholecystostomy tube placement. 2. 35 mL bile was sent for aerobic, anaerobic, and fungal cultures. 3. The catheter will be managed by Dr. Brennan. Chest X-Ray 10/10/24 06:58 Impression: Clear lungs. Status post aortic valve replacement, with pacemaker device. Cholangiogram 10/12/24 14:45 IMPRESSION: 1. Cholelithiasis and choledocholithiasis obstructing distal choledocholithiasis with no observed contrast emptying into the duodenum. The cystic duct is patent. Consider ERCP for stone extraction and sphincterotomy to relieve the distal ductal obstruction. Labs Labs: Laboratory Results - last 24 hr 10/15/24 10/15/24 10/15/24 12:25 17:18 20:51 WBC RBC Hgb Hct MCV MCH MCHC RDW Plt Count MPV Immature Gran % (Auto) Neut % (Auto) Lymph % (Auto) [place] % (Auto) Eos % (Auto) Baso % (Auto) Lymph # (Auto) [place] # (Auto) Eos # (Auto) Baso # (Auto) Abs Immat Gran (auto) Absolute Neuts (auto) Absolute Nucleated RBC Nucleated RBC % Sodium Potassium Chloride Carbon Dioxide Anion Gap BUN Creatinine Estim Creat Clear Calc Estimated GFR Glucose POC Capillary Glucose 138 H 121 H 239 H Calcium Magnesium Total Bilirubin AST ALT Alkaline Phosphatase NT-Pro-B Natriuret Pep Total Protein Albumin 10/16/24 10/16/24 10/16/24 05:05 05:14 08:06 WBC 12.4 H RBC 3.14 L Hgb 9.2 L Hct 29.5 L MCV 93.9 MCH 29.3 MCHC 31.2 L RDW 15.1 H Plt Count 625 H MPV 8.9 Immature Gran % (Auto) 2.5 H Neut % (Auto) 74.4 H Lymph % (Auto) 8.8 L [place] % (Auto) 12.1 H Eos % (Auto) 1.4 Baso % (Auto) 0.8 Lymph # (Auto) 1.09 [place] # (Auto) 1.5 H Eos # (Auto) 0.2 Baso # (Auto) 0.1 Abs Immat Gran (auto) 0.31 H Absolute Neuts (auto) 9.3 H Absolute Nucleated RBC 0.000 Nucleated RBC % 0.0 Sodium 135 L Potassium 4.6 Chloride 93 L Carbon Dioxide 33 H Anion Gap 9 BUN 45 H Creatinine 2.63 H Estim Creat Clear Calc 21 Estimated GFR 23 L Glucose 116 H POC Capillary Glucose 119 H 111 H Calcium 8.8 Magnesium 1.7 Total Bilirubin 0.4 AST 31 ALT 16 Alkaline Phosphatase 87 NT-Pro-B Natriuret Pep 3660 H Total Protein 6.6 Albumin 3.0 L
--- NOTE | 2024-10-16 11:16 | P.PNNP_ITS ---
Progress Note: A&P Assessment and Plan (1) Acute kidney injury: Code(s): N17.9 - Acute kidney failure, unspecified Status: Acute Assessment and Plan: * improvement noted if not relatively stable * as noted on admission * complicated by significant azotemia/elevated BUN on admission (see #3) * s/p holding diuretics and trial of IVFs * evaluation to date noted: * admission CT of A/P with no suspicious mass, obstructing stone, or hydronephrosis * prerenal urine electrolytes (by FeUrea) * urine eosinophils negative * mild proteinuria * normal/low CPK * UA without evidence of infection * suspect multifactorial etiology: * prerenal factors * overdiuresis * infection (bacteremia + cholecystitis) * other(?) * resumed on diuretic therapy (on 10/12) * follow trend of repeat labs and UOP (2) Stage 4 chronic kidney disease: Code(s): N18.4 - Chronic kidney disease, stage 4 (severe) Status: Chronic Assessment and Plan: * slow and progressive decline noted * GFR ~ 22 to 23 in * GFR ~ 20 to 21 in 2022/2023 * GFR ~ 18 by July 2024 labs * creatinine has been running anywhere from 2.4 - 3.2mg/dl in the last 6 months * creatinine on 09/27/24 (outpatient labs) = 3.93mg/dl (GFR 15) -- but this may have related to his acute medical issues noted on admission * most likely due to diabetes and hypertension + chronic diuretic therapy (3) Azotemia: Code(s): R79.89 - Other specified abnormal findings of blood chemistry Status: Acute Assessment and Plan: * stable/resolved * noted on admission (BUN 120) * suspected related to diuretic therapy/overdiuresis * however, underlying infection (see #4) likely a contributing factor as well... 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, 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 * moderate to severe mitral valve regurgitation * circumferential echogenic mass measuring 1.4 cm x 0.8 cm attached to left atrial side of mitral valve annulus which probably calcified mass; there is an additional small calcified echogenic mass attached to left ventricular side of posterior mitral valve leaflet -- probably calcifications more likely than vegetations; consider ADOLFO if clinically indicated * mild tricuspid valve regurgitation * mild pulmonary hypertension, estimated pulmonary arterial systolic pressure is 40 mmHg * trace pulmonic regurgitation * Cardiology recommendations noted -- patient not interested in ADOLFO at this time... * repeat blood cultures (10/08) negative (5) Gallbladder hydrops: Code(s): K82.1 - Hydrops of gallbladder Status: Acute Assessment and Plan: * CT of A/P without overt acute cholecystitis * however, did have significant right upper quadrant pain on palpation with nausea and decreased oral intake * RUQ ultrasound results noted as well * LFTs normal * GI recommendations noted * Surgery following * s/p cholecystostomy tube placement (on 10/05) * will eventually need cholecystectomy * cholangiogram (10/12) suggestive of retained stone in bile duct -- ERCP today per GI * continue supportive therapy (6) Anemia: Code(s): D64.9 - Anemia, unspecified Status: Acute Assessment and Plan: * due to combo of LEROY, CKD, acute illness/infection and possibly previous IVFs * dose with Epogen while hospitalized * follow trend of H/H (7) Hypertension: Code(s): I10 - Essential (primary) hypertension Status: Chronic Assessment and Plan: * reasonable control * follow trend of hemodynamics (8) Type 2 diabetes mellitus with hyperglycemia, without long-term current use of insulin: Code(s): E11.65 - Type 2 diabetes mellitus with hyperglycemia Status: Chronic Assessment and Plan: * follow accu-cheks * glycemic control per hospitalist Will continue to follow. L Subjective Date/time seen: 10/16/24 11:16 Interval history: Follow-up for acute kidney injury/acute renal failure on chronic kidney disease. Renal function/creatinine remains relatively stable at this time with reasonable urine output with current diuretic therapy; no acute distress noted at the time of my visit (sitting up in chair); noted plans for ERCP later today. Exam 2 Narrative: General: elderly but WD/WN male in NAD Heart: normal S1 and S2; no rub Lungs: clear anteriorly Abdomen: soft, nontender, nondistended, positive bowel sounds Extremities: no cyanosis or clubbing; trace - 1+ edema Skin: warm and dry Objective Data Vital Signs Vital Signs: Vital Signs Temp Pulse Resp BP Pulse Ox O2 Del Method FiO2 10/16/24 08:57 Room Air 10/16/24 08:16 88 12 94 Room Air 21 10/16/24 05:07 97.8 F 88 12 158/76 H 94 10/15/24 20:53 98.1 F 106 H 12 146/55 H 90 10/15/24 14:14 98.2 F 86 17 143/58 H 100 Intake/Output Intake/Output: Intake & Output 10/13/24 10/14/24 10/15/24 10/16/24 23:59 23:59 23:59 23:59 Intake Total 1120 1280 880 600 Output Total 1999 3810 2910 1000 Balance -880 -2530 -2030 -400 Meds/Results Medications: Active Medications Generic Name Dose Route Start Last Admin Trade Name Freq PRN Reason Stop Dose Admin Acetaminophen 650 mg 09/30/24 19:02 10/15/24 17:13 Acetaminophen 325 Mg Tablet PO 650 mg Q4H PRN Administration Mild Pain (1-3) or Fever Albuterol 2 puff 10/03/24 15:40 10/04/24 09:06 Albuterol Sulfate (*Sp) Aerosol 1 Puff INHALATION 2 puff Q6HRT PRN Administration Shortness Of Breath Or Wheezing Clopidogrel Bisulfate 75 mg 10/01/24 09:00 10/12/24 08:42 Clopidogrel Bisulfate 75 Mg Tablet PO 75 mg DAILY VU Administration Dextrose 12.5 gm 09/30/24 20:29 Dextrose 50% 25 Gm/50 Ml Syringe IV PUSH PRN PRN Hypoglycemia Protocol Docusate Sodium 100 mg 10/01/24 09:00 10/15/24 09:35 Docusate Sodium 100 Mg Capsule PO 100 mg DAILY VU Administration Ezetimibe 10 mg 10/01/24 09:00 10/15/24 09:35 Ezetimibe 10 Mg Tablet PO 10 mg DAILY VU Administration Epoetin Gordo-epbx 10,000 units 10/16/24 09:00 Epoetin Gordo-Epbx 10,000 Units/Ml Vial SUB-Q TUTHSA@09 VU Famotidine 20 mg 09/30/24 21:00 10/15/24 20:38 Famotidine 20 Mg Tablet PO 20 mg Q12HR VU Administration Finasteride 5 mg 10/01/24 09:00 10/15/24 09:35 Finasteride 5 Mg Tablet PO 5 mg DAILY VU Administration Fluticasone Propionate 2 spray 09/30/24 20:28 10/14/24 08:33 Fluticasone Propionate 0.05% Na Spr 16 Gm Btl (*Bkc) NASAL 2 spray DAILY PRN Administration allergy symptoms Furosemide 40 mg 10/09/24 09:00 10/15/24 17:13 Furosemide 40 Mg Tablet PO 40 mg BID VU Administration Glucagon 1 mg 09/30/24 20:29 Glucagon For Inj 1 Mg Vial IM PRN PRN Hypoglycemia Protocol Glucose 15 gm 09/30/24 20:29 Glucose Oral Gel 15 Gm Of Glucse In 37.5 Gm Tube PO PRN PRN Hypoglycemia Protocol Guaifenesin 600 mg 10/11/24 21:00 10/15/24 20:38 Guaifenesin 12 Hr 600 Mg Tabcr PO 10/18/24 20:59 600 mg Q12HR VU Administration Heparin Sodium (Porcine) 5,000 units 09/30/24 21:00 10/14/24 08:34 Heparin Sodium 5,000 Units/Ml Vial SUB-Q 5,000 units Q12HR VU Administration Dextrose 1,000 mls @ 100 mls/hr 09/30/24 20:29 Dextrose 5% 1,000 Ml IVPB PRN PRN Hypoglycemia Protocol Ampicillin Sodium 2 gm in 100 mls @ 200 mls/hr 10/07/24 10:00 10/16/24 03:45 Ampicillin 2 Gm/Ns 100 Ml IVPB Infused Q8H VU Infusion Ceftriaxone Sodium 2 gm in 100 mls @ 200 mls/hr 10/08/24 14:00 10/15/24 13:57 Rocephin 2 Gm/Ns 100 Ml IVPB Infused Q24H VU Infusion Insulin Aspart 1 - 3 units 09/30/24 21:00 10/16/24 00:18 Insulin Aspart (*Bkc) 100 Units/Ml SUB-Q Not Given HS VU Protocol Insulin Aspart 3 - 6 units 10/01/24 08:00 10/15/24 17:39 Insulin Aspart (*Bkc) 100 Units/Ml SUB-Q Not Given TIDWM [facility] Protocol Metronidazole 500 mg 10/08/24 14:00 10/16/24 04:23 Metronidazole 500 Mg Tablet PO 500 mg Q8HR VU Administration Morphine Sulfate 15 mg 10/07/24 09:53 10/16/24 12:04 Morphine Sulfate (*Crx) 15 Mg Tab Ir PO 15 mg Q4H PRN Administration Pain Rated 7-10 Ondansetron HCl 4 mg 09/30/24 19:02 10/12/24 11:54 Ondansetron Inj 4 Mg/2 Ml Vial IV PUSH 4 mg Q4H PRN Administration Nausea Pantoprazole Sodium 40 mg 10/07/24 09:00 10/15/24 09:35 Pantoprazole 40 Mg Tablet PO 40 mg QAM VU Administration Polyethylene Glycol 17 gm 10/10/24 13:40 10/15/24 09:36 Polyethylene Glycol 3350 17 Gm Powd.Pack PO 17 gm QAM VU Administration Saccharomyces Boulardii 250 mg 10/11/24 17:00 10/15/24 17:13 Saccharomyces Boulardii 250 Mg Capsule PO 250 mg BID VU Administration Sodium Chloride 500 mg 10/06/24 17:00 10/15/24 17:14 Sodium Chloride 500 Mg Tablet PO 500 mg BID VU Administration Verapamil HCl 120 mg 09/30/24 21:00 10/15/24 20:38 Verapamil Hcl 120 Mg Tablet Immed Release PO 120 mg Q12HR VU Administration Radiology Results: ITS Impressions Abdomen/Pelvis CT 09/30/24 19:00 IMPRESSION: Gallbladder hydrops without inflammatory change. Dilated common bile duct, measuring 14 mm. No obstructing stone or mass detected. Correlate with biliary labs. 3.4 cm fusiform infrarenal abdominal aortic aneurysm. Consider follow-up in 3 years. Upper Quadrant Ultrasound 10/01/24 08:43 IMPRESSION: 1. Cholelithiasis with a normal-appearing gallbladder but with mild intra and extrahepatic biliary ductal dilation which raises concern for a nonvisualized distal obstructing choledocholithiasis. Correlate with liver function tests and if clinically indicated could consider further evaluation with either MRCP or ERCP. Hepatobiliary Scan Nuclear Medicine 10/05/24 08:35 IMPRESSION: 1. No evident gallbladder activity consistent with acute cholecystitis. Cholecystostomy 10/05/24 16:57 IMPRESSION: 1. Successful ultrasound-guided cholecystostomy tube placement. 2. 35 mL bile was sent for aerobic, anaerobic, and fungal cultures. 3. The catheter will be managed by Dr. Brennan. Chest X-Ray 10/10/24 06:58 Impression: Clear lungs. Status post aortic valve replacement, with pacemaker device. Cholangiogram 10/12/24 14:45 IMPRESSION: 1. Cholelithiasis and choledocholithiasis obstructing distal choledocholithiasis with no observed contrast emptying into the duodenum. The cystic duct is patent. Consider ERCP for stone extraction and sphincterotomy to relieve the distal ductal obstruction. Labs Labs: Laboratory Tests 10/16/24 05:14 10/16/24 05:14 Calcium 8.8 Magnesium 1.7 Total Bilirubin 0.4 AST 31 ALT 16 Alkaline Phosphatase 87 NT-Pro-B Natriuret Pep 3660 H Total Protein 6.6 Albumin 3.0 L
--- NOTE | 2024-10-16 11:25 | PM.IMPN ---
Progress Note: A&P Assessment and Plan (1) Chest pain: Qualifiers: Chest pain type: unspecified Qualified Code(s): R07.9 - Chest pain, unspecified Code(s): R07.9 - Chest pain, unspecified Status: Acute Assessment and Plan: -Chest pain seems atypical in nature, pt continue to deny CP. -Troponin are elevated but flat. Will complete troponin series. -Pain seems more consistent with GI cause with reported indigestion and significant right upper quadrant pain. -Will continue Antihypertensives and Plavix. -->HOLD Plavix starting 10/05 for eventual lap sunni per surg 10/07: Per surg: No longer plan to proceed with cholecystectomy this week. Patient to ill with sepsis and bacteremia as well as acute on chronic renal failure. Will resume Plavix today. Pt continues to deny CP/SOB or any other worrisome sx. (2) Acute kidney injury superimposed on CKD: Code(s): N17.9 - Acute kidney failure, unspecified; N18.9 - Chronic kidney disease, unspecified Status: Acute Assessment and Plan: Patient has chronic kidney disease stage 4 with acute kidney injury. Most likely prerenal due to intervascular volume depletion. - Hold Lasix and continue IV fluid hydration at 75ml/hr. - Nephrology was consulted from the ER. - Continue flomax 10/02- cr/bun 2.96/100 10/03: Cr/BUN: 3.26/91, pending neph rounds due to worsening Cr 10/04: Cr/BUN: 3.43/90, Started IVF again today, continue to hold lasix 10/05: Cr/BUN: 3.54/[address] Lopez today, he believes that once the sunni tube is placed and with IV abx on board, kidney labs should begin to normalize back to pt baseline which is CKD4. Will continue to monitor levels. Dr. Lopez on for the weekend. 10/06: Cr/BUN: 2.84/84, starting to trend down, will continue to monitor daily IVF D/C due to better trending kidneys, lasix still on hold (no pulm congestion), and adequate intake. 10/07: Kidney levels continuing to improve Cr/BUN: 2.33/27 -If continues to improve, will start Lasix back up tomorrow. at the bedside today concerned for his BLE edema, which has not worsened per my exam. Pt also denies CP/SOB. 10/08: Kidney levels continuing to improve Cr/BUN: 2.15/59 -Lasix restarted today 10/09 daily: Cr/BUN: 2.41/55 Per neph 10/08: slow and progressive decline noted GFR ~ 22 to 23 in GFR ~ 20 to 21 in GFR ~ 18 by July 2024 labs creatinine has been running anywhere from 2.4 - 3.2mg/dl in the last 6 months creatinine on 09/27/24 (outpatient labs) = 3.93mg/dl (GFR 15) -- but this may have related to his acute medical issues currently most likely due to diabetes and hypertension + chronic diuretic therapy go to the 10/10: Cr/BUN: 2.84/57. Nephrology following, appreciate recommendations. 10/11: Cr/BUN 3.02/55. Nephrology following, appreciate recommendations. 10/12: Cr/BUN 2.99/53. Nephrology following, appreciate recommendations. 10/13: Cr/BUN 2.74/48. Nephrology following, appreciate recommendations. 10/14: Cr/BUN 2.68/48. Nephrology following, appreciate recommendations. 10/15: Cr/BUN 2.76/46. Nephrology following, appreciate recommendations. 10/16: Cr/BUN 2.63/45. Nephrology following, appreciate recommendations. (3) Acute uremia: Code(s): N19 - Unspecified kidney failure Status: Acute Assessment and Plan: Possibly due to hypovolemia. GI bleed is less likely given patient's hemoglobin is stable at 12 in ED and patient denies symptoms of hematemesis hematochezia or melena. Pt continues to deny any blood loss. -Will hold Lasix and continue IV fluid hydration and repeat CBC and electrolyte panel in a.m. -Decrease IV fluids to 50 ml and monitor I/O closely 10/03: -H/H as of 10/03: 9.630.5 -Pt appetite still decreased, continue IVF 50/hr 10/04: -H/H 9.8.5 -Started again on IVF to try to normalize creat, pt will be NPO at [facility] anyway for procedure tomorrow. 10/05: -H/H 9.9/31.3 -IVF down to 75 ml/hr for NPO status and to avoid pulm edema Spoke to Dr. Lopez today, he believes that once the sunni tube is placed and with IV abx on board, kidney labs should begin to normalize back to pt baseline which is CKD4. Will continue to monitor levels. Dr. Lpoez on for the weekend. 10/06: -H/H 10.8/35.4 -IVF stopped today, appetite better 10/07: -H/H: 9.7/29.8 10/08: -H/H: 10.3/31.7 10/10: -H/H 9.1/28.4. 10/11: H&H 9.1/28.0. /: H&H 8.6/27.2. /: H&H 8.5/26.9. /: H&H 8.6/27.0. /: H&H 9.3/29.9. /24: H&H 9.2/29.5. (4) Gallbladder hydrops: Code(s): K82.1 - Hydrops of gallbladder Status: Acute Assessment and Plan: CT does not suggest overt acute cholecystitis but patient does have significant kit right upper quadrant pain on palpation and worsening of his nausea with palpation of right upper quadrant. -RUQ US for better visualization of the gallbladder: 1. Cholelithiasis with a normal-appearing gallbladder but with mild intra and extrahepatic biliary ductal dilation which raises concern for a nonvisualized distal obstructing choledocholithiasis. Correlate with liver function tests and if clinically indicated could consider further evaluation with either MRCP or ERCP. -->Consulted GI 10/03, pending recs/rounding -Bilirubin and transaminases are normal. -Patient does have some leukocytosis but no fever. -Will hold off on adding antibiotic coverage at this time and will repeat CBC in a.m. 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 His symptoms are likely related to his gallbadder and there is concern for choledocholithiasis given his common bile duct dilatation on imaging. Since his Plavix has been continued, he would not be a candidate for a laparoscopic cholecystectomy at this time. He received his last dose of Plavix this morning, which I have put on hold. Since he continues to have symptoms, we would recommend proceeding with percutaneous cholecystostomy tube placement to treat his cholecystitis. We will eventually consider proceeding with a laparoscopic cholecystectomy with intraoperative cholangiogram to evaluate for choledocholithiasis, but this will be at a later date, possibly as an outpatient depending on how he is progressing medically, when his Plavix can be held for an adequate amount of time. This would also allow time for improved medical optimization in regards to his renal failure and pulmonary edema. Will repeat labs tomorrow and include a CMP to re-evaluate his liver enzymes. Although his WBC count has been trending down, I will also start him on broad-spectrum IV antibiotics to cover for cholecystitis/cholangitis given his persistent pain/fever/leukocytosis. Plavix has been continued since his admission. He received a dose this morning. Will hold his Plavix now, which ideally is held for 5 days prior to a cholecystectomy. -->Plan for sunni tube placement tomorrow, surg started ceftriaxone and flagyl today 10/05: HIDA scan and cholecystectomy tube placement today. Low fat diet started after procedure. Will continue to monitor tube and daily AM labs. 10/06: Pt looking a lot better since tube placement yesterday. Pt reporting some pain in his RLQ and tube insertion site but per pt his morphine home dose has been taking care of the pain. -Per surg note today: Cholecystostomy tube placed yesterday. Having pain at drain site. Cholecystostomy tube will alleviate acute cholecystitis. Will not help if patient has cholangitis. Although the bile ducts are dilated, liver function tests are normal. Cholangitis seems unlikely. Bacteremia: Receiving appropriate antibiotics with vancomycin and cefepime. Pending susceptibility testing on the Enterococcus 10/07: Per surg: Relieved with placement cholecystostomy tube. Abdomen benign and no further abdominal pain. No longer plan to proceed with cholecystectomy this week. Patient to ill with sepsis and bacteremia as well as acute on chronic renal failure. Will resume Plavix today. -Pt denies pain to his abd or sunni tube site. 10/08: -Slight WBC increase overnight, 10.4-->12.1 -Per surg rounds: Relieved with placement cholecystostomy tube. Abdomen benign and no further abdominal pain. No longer plan to proceed with cholecystectomy this week. Patient too ill with sepsis and bacteremia as well as acute on chronic renal failure. Plavix resumed. -Switched abx yesterday from vanc ampicillin and gentamicin based on susceptibilities of the Enterococcus per pharm 10/09: -Slight WBC increase overnight again, surg aware. Continue IV abx. Continue to monitor sunni tube, labs, VS. 10/10: -WBC 12.6, Ampicillin 2 gram IVPB q 8, Ceftriaxone 2 gram IVPB daily, and Metronidazole 500 mg PO q 8. Continue to monitor sunni tube, labs, VS. PT/OT. Surgery following, appreciate recommendations. 10/12: -WBC 11.2, Ampicillin 2 gram IVPB q 8, Ceftriaxone 2 gram IVPB daily, and Metronidazole 500 mg PO q 8. Continue to monitor sunni tube, labs, VS. PT/OT. Surgery following, appreciate recommendations. Cholangiogram today showed: Cholelithiasis and choledocholithiasis obstructing distal choledocholithiasis with no observed contrast emptying into the duodenum. The cystic duct is patent. Consider ERCP for stone extraction and sphincterotomy to relieve the distal ductal obstruction. 10/13: -WBC 12.0, Ampicillin 2 gram IVPB q 8, Ceftriaxone 2 gram IVPB daily, and Metronidazole 500 mg PO q 8. Continue to monitor sunni tube, labs, VS. PT/OT. Surgery following, appreciate recommendations. 10/14: -WBC 12.6, Ampicillin 2 gram IVPB q 8, Ceftriaxone 2 gram IVPB daily, and Metronidazole 500 mg PO q 8. Continue to monitor sunni tube, labs, VS. PT/OT. Surgery following, appreciate recommendations. GI consulted. NPO after MN for ERCP. 10/15: WBC 11.8, Ampicillin 2 gram IVPB q 8, Ceftriaxone 2 gram IVPB daily, and Metronidazole 500 mg PO q 8. Continue to monitor sunni tube, labs, VS. PT/OT. Surgery following, appreciate recommendations. GI following. Cardiac cleared patient to proceed with ERCP. NPO after MN for ERCP. 10/16: WBC 12.4 Ampicillin 2 gram IVPB q 8, Ceftriaxone 2 gram IVPB daily, and Metronidazole 500 mg PO q 8. Continue to monitor sunni tube, labs, VS. PT/OT. Surgery following, appreciate recommendations. GI following. Cardiac cleared patient to proceed with ERCP. ERCP today showed: Ampulla appeared normal with small papillary orifice. Selective, deep bile duct cannulation achieved Pappillatome and a 0.035 inch wire. There were many filling defects in the distal CBD consistent with stones. A sphincterectomy was performed with a therapeutic 3.5 Fr papillotome device in the bile duct with a 8 mm cut. A stone extraction was performed with a 9-12 mm balloon catheter and the assistance of a 0.035 inch short-wire access for complete clearance of approximately 10 unfragmented stones. One more passage of the balloon was used to wash the common bile duct. The balloon was extracted through the papillotomy orifice insufflated at 9 mm, no stones of debris, rendering the common bile duct cleared. (5) Type 2 diabetes mellitus with hyperglycemia, without long-term current use of insulin: Code(s): E11.65 - Type 2 diabetes mellitus with hyperglycemia Status: Chronic Assessment and Plan: Hold Actos -Moderate dose sliding scale insulin with Accu-Cheks a.c. HS and hypoglycemia protocol. -Glucose has been stable during stay (6) Elevated brain natriuretic peptide (BNP) level: Code(s): R79.89 - Other specified abnormal findings of blood chemistry Status: Acute Assessment and Plan: 10/11: BNP 9,700. Lasix 40 mg ivp x 1 given. 10/12: BNP 7,310. Creatinine 2.99. Restart home dose of Furosemide 40 mg PO BID. Monitor kidney function. 10/13: BNP 6,850. Creatinine 2.74. Continue Furosemide 40 mg PO BID. Monitor kidney function. 10/14: BNP 4,900. Creatinine 2.68. Continue Furosemide 40 mg PO BID. Monitor kidney function. 10/15: BNP 4,260. Creatinine 2.76. Continue Furosemide 40 mg PO BID. Monitor kidney function. 10/16: BNP 3,660. Creatinine 2.63. Continue Furosemide 40 mg PO BID. Monitor kidney function. Echocardiogram showed: Summary 1. Definity contrast administered improved wall motion interpretation. 2. Left ventricular chamber dimension is normal. 3. Left ventricular systolic function is normal, estimated at 60-65. 4. There is moderate concentric increased left ventricular wall thickness. 5. The left ventricular diastolic function is grade I diastolic dysfunction. 6. E/e' 15 is elevated. 7. Left atrial chamber dimension is mildly enlarged. 8. 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 Consider ADOLFO if clinically indicated. 9. There is moderate to severe mitral valve regurgitation. 10. Circumferential echogenic mass measuring 1.4 cm x 0.8 cm attached to left atrial side of mitral valve annulus which probably calcified mass. There is an additional small calcified echogenic mass attached to left ventricular side of posterior mitral valve leaflet. Probably calcifications more likely than vegetations. Consider ADOLFO if clinically indicated. 11. There is mild tricuspid valve regurgitation. 12. Mild pulmonary hypertension, estimated pulmonary arterial systolic pressure is 40 mmHg. 13. There is trace pulmonic regurgitation. Cardiology consulted, appreciate recommendations. (7) Chronic pain: Qualifiers: Chronic pain type: chronic pain syndrome Qualified Code(s): G89.4 - Chronic pain syndrome Code(s): G89.29 - Other chronic pain Status: Acute Assessment and Plan: Will resume patient's home morphine 15 mg Q 8 hours p.r.n. pain 7-10. (8) Abdominal aortic aneurysm (AAA) 3.0 cm to 5.5 cm in diameter in male: Code(s): I71.40 - Abdominal aortic aneurysm, without rupture, unspecified Status: Acute Assessment and Plan: Likely chronic will defer follow-up to patient's primary care provider for serial imaging (9) Bacteremia: Code(s): R78.81 - Bacteremia Status: Acute Assessment and Plan: 10/05: Both blood cultures resulted today with Gram + cocci in chains -->Spoke with ID pharm, reports could be either strep strain (covered by Ceftriaxone) or Entero strain (covered by Vanc) --->Will start vanc today to treat if ends up being entero strain to get ahead of the infection, will f/u tomorrow for final reads -Pt on Ceftriaxone 2g already via surg for low grade fevers and leukocytosis, will continue. -Ordered echo 10/05 to r/o endocarditis -Also repeat order for BC placed today 10/06: X1 BC final result yielding enterococcus faecalis, will continue with vanc, pending second final BC result -Will continue to trend BCs 10/07: After a slight bump, WBC continues to downtrend slightly, will continue to monitor. Per surg today: Spoke with pharmacist. Will change to ampicillin and gentamicin based on susceptibilities of the Enterococcus -->Gallbladder wound culture prelim resulted today for Enterococcus, continue ampicillin and gentamicin -Will continue to trend BCs, new draw tomorrow AM scheduled 10/08: -Slight WBC increase overnight, 10.4-->12.1 -Per surg: Continue ampicillin and gentamicin based on susceptibilities of the Enterococcus. -Switched abx yesterday from vanc ampicillin and gentamicin based on susceptibilities of the Enterococcus per pharm -Will continue to monitor daily labs 10/09: -Very slight, surg aware. Continue IV abx. Continue to monitor sunni tube, labs, VS. 10/10: -WBC 12.6, Ampicillin 2 gram IVPB q 8, Ceftriaxone 2 gram IVPB daily, and Metronidazole 500 mg PO q 8. Continue to monitor sunni tube, labs, VS. 10/11: WBC 12.5. Ampicillin 2 gram IVPB q 8, Ceftriaxone 2 gram IVPB daily, and Metronidazole 500 mg PO q 8. Continue to monitor sunni tube, labs, VS. 10/12: WBC 11.2. Ampicillin 2 gram IVPB q 8, Ceftriaxone 2 gram IVPB daily, and Metronidazole 500 mg PO q 8. Continue to monitor sunni tube, labs, VS. 10/13: WBC 12, Ampicillin 2 gram IVPB q 8, Ceftriaxone 2 gram IVPB daily, and Metronidazole 500 mg PO q 8. Continue to monitor sunni tube, labs, VS. PT/OT. Surgery following, appreciate recommendations. 10/14: -WBC 12.6, Ampicillin 2 gram IVPB q 8, Ceftriaxone 2 gram IVPB daily, and Metronidazole 500 mg PO q 8. Continue to monitor sunni tube, labs, VS. PT/OT. Surgery following, appreciate recommendations. 10/08 blood cultures negative. 10/15: WBC 11.8, Ampicillin 2 gram IVPB q 8, Ceftriaxone 2 gram IVPB daily, and Metronidazole 500 mg PO q 8. Continue to monitor sunni tube, labs, VS. PT/OT. Surgery following, appreciate recommendations. 10/08 blood cultures negative. 10/16: WBC 12.4, Ampicillin 2 gram IVPB q 8, Ceftriaxone 2 gram IVPB daily, and Metronidazole 500 mg PO q 8. Continue to monitor sunni tube, labs, VS. PT/OT. Surgery following, appreciate recommendations. 10/08 blood cultures negative. (10) Hyponatremia: Code(s): E87.1 - Hypo-osmolality and hyponatremia Status: Acute Assessment and Plan: Levels have been low since admission despite IVF NS. -Sodium chl tablets started 10/06 to normalize -Will continue to trend pt status and daily labs 10/07: Na 134 10/08: Na 135 10/09: Na 134 10/10: Na 134. 10/11: Na+ 131. Receiving Sodium chloride 500 mg PO BID. 10/12: Na+ 132. Receiving Sodium chloride 500 mg PO BID. 10/13: Na+ 131. Receiving Sodium chloride 500 mg PO BID. 10/14: Na+ 132. Receiving Sodium chloride 500 mg PO BID. 10/15: Na+ 133. Receiving Sodium chloride 500 mg PO BID. 10/16: Na+ 135. Receiving Sodium chloride 500 mg PO BID. 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 Per surg: Plavix has been continued since his admission. He received a dose this morning. Will hold his Plavix now, which ideally is held for 5 days prior to a cholecystectomy. 10/07: Per surg: No longer plan to proceed with cholecystectomy this week. Patient to ill with sepsis and bacteremia as well as acute on chronic renal failure. Will resume Plavix today. -Plan for outpatient lap sunni potentially, surg to continue to follow. Plan Sunni tube placement 10/05, continue to monitor pt with labs, VS, and pain control. Surg started IV abx 10/04. Subjective Date/time seen: 10/16/24 11:25 Interval history: Patient sitting up in bed. Patient reports pain in his right abdomen is a 8, it is sharp at times and shoots down toward leg, pain is frequent. Patient denies chest pain, palpitations, headache, dizziness, nausea, or vomiting. is at the bedside. Review of Systems Review of Systems: All systems reviewed & are unremarkable except as noted in HPI and below Exam Const: General: no acute distress and uncomfortable Resp: Effort & Inspection: normal respiratory effort Auscultation: clear to auscultation bilaterally Cardio: Rate: regular rate Rhythm: regular rhythm GI: GI Palp: Yes Soft to palpation Other: Sunni tube with bile colored drainage, small amount. Neuro: Speech: normal speech Extrem: General: pedal edema bilaterally 2+ Psych: Mental Status: mental status grossly normal Affect: normal affect Objective Data Vital Signs Vital Signs: Vital Signs - 24 hr 10/15/24 14:14 10/15/24 20:53 10/16/24 05:07 Temperature 98.2 F 98.1 F 97.8 F Pulse Rate 86 106 H 88 Respiratory Rate 17 12 12 Blood Pressure 143/58 H 146/55 H 158/76 H Pulse Oximetry 100 90 94 Oxygen Delivery Fraction of Inspired Oxygen 10/16/24 08:16 10/16/24 08:57 Temperature Pulse Rate 88 Respiratory Rate 12 Blood Pressure Pulse Oximetry 94 Oxygen Delivery Room Air Room Air Fraction of Inspired Oxygen 21 Intake/Output Intake/Output: Intake & Output 10/13/24 10/14/24 10/15/24 10/16/24 23:59 23:59 23:59 23:59 Intake Total 1120 1280 880 600 Output Total 1999 3810 2910 1000 Balance -880 -2530 -2030 -400 Meds/Results Medications: Active Medications Generic Name Dose Route Start Last Admin Trade Name Freq PRN Reason Stop Dose Admin Acetaminophen 650 mg 09/30/24 19:02 10/15/24 17:13 Acetaminophen 325 Mg Tablet PO 650 mg Q4H PRN Administration Mild Pain (1-3) or Fever Albuterol 2 puff 10/03/24 15:40 10/04/24 09:06 Albuterol Sulfate (*Sp) Aerosol 1 Puff INHALATION 2 puff Q6HRT PRN Administration Shortness Of Breath Or Wheezing Clopidogrel Bisulfate 75 mg 10/01/24 09:00 10/12/24 08:42 Clopidogrel Bisulfate 75 Mg Tablet PO 75 mg DAILY VU Administration Dextrose 12.5 gm 09/30/24 20:29 Dextrose 50% 25 Gm/50 Ml Syringe IV PUSH PRN PRN Hypoglycemia Protocol Docusate Sodium 100 mg 10/01/24 09:00 10/15/24 09:35 Docusate Sodium 100 Mg Capsule PO 100 mg DAILY VU Administration Ezetimibe 10 mg 10/01/24 09:00 10/15/24 09:35 Ezetimibe 10 Mg Tablet PO 10 mg DAILY VU Administration Epoetin Gordo-epbx 10,000 units 10/16/24 09:00 Epoetin Gordo-Epbx 10,000 Units/Ml Vial SUB-Q TUTHSA@09 [facility] Famotidine 20 mg 09/30/24 21:00 10/15/24 20:38 Famotidine 20 Mg Tablet PO 20 mg Q12HR VU Administration Finasteride 5 mg 10/01/24 09:00 10/15/24 09:35 Finasteride 5 Mg Tablet PO 5 mg DAILY VU Administration Fluticasone Propionate 2 spray 09/30/24 20:28 10/14/24 08:33 Fluticasone Propionate 0.05% Na Spr 16 Gm Btl (*Bkc) NASAL 2 spray DAILY PRN Administration allergy symptoms Furosemide 40 mg 10/09/24 09:00 10/15/24 17:13 Furosemide 40 Mg Tablet PO 40 mg BID VU Administration Glucagon 1 mg 09/30/24 20:29 Glucagon For Inj 1 Mg Vial IM PRN PRN Hypoglycemia Protocol Glucose 15 gm 09/30/24 20:29 Glucose Oral Gel 15 Gm Of Glucse In 37.5 Gm Tube PO PRN PRN Hypoglycemia Protocol Guaifenesin 600 mg 10/11/24 21:00 10/15/24 20:38 Guaifenesin 12 Hr 600 Mg Tabcr PO 10/18/24 20:59 600 mg Q12HR VU Administration Heparin Sodium (Porcine) 5,000 units 09/30/24 21:00 10/14/24 08:34 Heparin Sodium 5,000 Units/Ml Vial SUB-Q 5,000 units Q12HR VU Administration Dextrose 1,000 mls @ 100 mls/hr 09/30/24 20:29 Dextrose 5% 1,000 Ml IVPB PRN PRN Hypoglycemia Protocol Ampicillin Sodium 2 gm in 100 mls @ 200 mls/hr 10/07/24 10:00 10/16/24 03:45 Ampicillin 2 Gm/Ns 100 Ml IVPB Infused Q8H VU Infusion Ceftriaxone Sodium 2 gm in 100 mls @ 200 mls/hr 10/08/24 14:00 10/15/24 13:57 Rocephin 2 Gm/Ns 100 Ml IVPB Infused Q24H VU Infusion Insulin Aspart 1 - 3 units 09/30/24 21:00 10/16/24 00:18 Insulin Aspart (*Bkc) 100 Units/Ml SUB-Q Not Given HS VU Protocol Insulin Aspart 3 - 6 units 10/01/24 08:00 10/15/24 17:39 Insulin Aspart (*Bkc) 100 Units/Ml SUB-Q Not Given TIDWM [facility] Protocol Metronidazole 500 mg 10/08/24 14:00 10/16/24 04:23 Metronidazole 500 Mg Tablet PO 500 mg Q8HR VU Administration Morphine Sulfate 15 mg 10/07/24 09:53 10/16/24 08:16 Morphine Sulfate (*Crx) 15 Mg Tab Ir PO 15 mg Q4H PRN Administration Pain Rated 7-10 Ondansetron HCl 4 mg 09/30/24 19:02 10/12/24 11:54 Ondansetron Inj 4 Mg/2 Ml Vial IV PUSH 4 mg Q4H PRN Administration Nausea Pantoprazole Sodium 40 mg 10/07/24 09:00 10/15/24 09:35 Pantoprazole 40 Mg Tablet PO 40 mg QAM VU Administration Polyethylene Glycol 17 gm 10/10/24 13:40 10/15/24 09:36 Polyethylene Glycol 3350 17 Gm Powd.Pack PO 17 gm QAM VU Administration Saccharomyces Boulardii 250 mg 10/11/24 17:00 10/15/24 17:13 Saccharomyces Boulardii 250 Mg Capsule PO 250 mg BID VU Administration Sodium Chloride 500 mg 10/06/24 17:00 10/15/24 17:14 Sodium Chloride 500 Mg Tablet PO 500 mg BID VU Administration Verapamil HCl 120 mg 09/30/24 21:00 10/15/24 20:38 Verapamil Hcl 120 Mg Tablet Immed Release PO 120 mg Q12HR VU Administration Radiology Results: ITS Impressions Abdomen/Pelvis CT 09/30/24 19:00 IMPRESSION: Gallbladder hydrops without inflammatory change. Dilated common bile duct, measuring 14 mm. No obstructing stone or mass detected. Correlate with biliary labs. 3.4 cm fusiform infrarenal abdominal aortic aneurysm. Consider follow-up in 3 years. Upper Quadrant Ultrasound 10/01/24 08:43 IMPRESSION: 1. Cholelithiasis with a normal-appearing gallbladder but with mild intra and extrahepatic biliary ductal dilation which raises concern for a nonvisualized distal obstructing choledocholithiasis. Correlate with liver function tests and if clinically indicated could consider further evaluation with either MRCP or ERCP. Hepatobiliary Scan Nuclear Medicine 10/05/24 08:35 IMPRESSION: 1. No evident gallbladder activity consistent with acute cholecystitis. Cholecystostomy 10/05/24 16:57 IMPRESSION: 1. Successful ultrasound-guided cholecystostomy tube placement. 2. 35 mL bile was sent for aerobic, anaerobic, and fungal cultures. 3. The catheter will be managed by Dr. Brennan. Chest X-Ray 10/10/24 06:58 Impression: Clear lungs. Status post aortic valve replacement, with pacemaker device. Cholangiogram 10/12/24 14:45 IMPRESSION: 1. Cholelithiasis and choledocholithiasis obstructing distal choledocholithiasis with no observed contrast emptying into the duodenum. The cystic duct is patent. Consider ERCP for stone extraction and sphincterotomy to relieve the distal ductal obstruction. Labs Labs: Laboratory Results - last 24 hr 10/15/24 10/15/24 10/15/24 12:25 17:18 20:51 WBC RBC Hgb Hct MCV MCH MCHC RDW Plt Count MPV Immature Gran % (Auto) Neut % (Auto) Lymph % (Auto) [place] % (Auto) Eos % (Auto) Baso % (Auto) Lymph # (Auto) [place] # (Auto) Eos # (Auto) Baso # (Auto) Abs Immat Gran (auto) Absolute Neuts (auto) Absolute Nucleated RBC Nucleated RBC % Sodium Potassium Chloride Carbon Dioxide Anion Gap BUN Creatinine Estim Creat Clear Calc Estimated GFR Glucose POC Capillary Glucose 138 H 121 H 239 H Calcium Magnesium Total Bilirubin AST ALT Alkaline Phosphatase NT-Pro-B Natriuret Pep Total Protein Albumin 10/16/24 10/16/24 10/16/24 05:05 05:14 08:06 WBC 12.4 H RBC 3.14 L Hgb 9.2 L Hct 29.5 L MCV 93.9 MCH 29.3 MCHC 31.2 L RDW 15.1 H Plt Count 625 H MPV 8.9 Immature Gran % (Auto) 2.5 H Neut % (Auto) 74.4 H Lymph % (Auto) 8.8 L [place] % (Auto) 12.1 H Eos % (Auto) 1.4 Baso % (Auto) 0.8 Lymph # (Auto) 1.09 [place] # (Auto) 1.5 H Eos # (Auto) 0.2 Baso # (Auto) 0.1 Abs Immat Gran (auto) 0.31 H Absolute Neuts (auto) 9.3 H Absolute Nucleated RBC 0.000 Nucleated RBC % 0.0 Sodium 135 L Potassium 4.6 Chloride 93 L Carbon Dioxide 33 H Anion Gap 9 BUN 45 H Creatinine 2.63 H Estim Creat Clear Calc 21 Estimated GFR 23 L Glucose 116 H POC Capillary Glucose 119 H 111 H Calcium 8.8 Magnesium 1.7 Total Bilirubin 0.4 AST 31 ALT 16 Alkaline Phosphatase 87 NT-Pro-B Natriuret Pep 3660 H Total Protein 6.6 Albumin 3.0 L Quality VTE Prophylaxis VTE prophylaxis: pharmacologic ordered (Heparin 5000 units subQ q.12 hours.)
--- NOTE | 2024-10-16 12:46 | P.PNAN_ITS ---
Anes - Initial Pre Proc Eval Procedure: Operation Date: 10/16/24 13:45 Proposed Procedures p Endoscopic Retro Cholangiopancreatogram - Kal Palma MD Date/Time: 10/16/24 12:46 Surgeon: Janette Washington APRN Pre Op Diagnosis: Chest pain, Acute on chronic renal failure, Uremia Patient Data Age: 88 Gender: M Height: 1.73 m Weight: 99.4 kg Last Vital Signs Temp 36.6 C 10/16/24 05:07 Pulse 88 10/16/24 08:16 Resp 12 10/16/24 08:16 BP 158/76 H 10/16/24 05:07 Pulse Ox 94 10/16/24 08:16 O2 Del Method Room Air 10/16/24 08:57 FiO2 21 10/16/24 08:16 Allergies Allergy/AdvReac Type Severity Reaction Status Date / Time atorvastatin Allergy Unknown myalgia Verified 10/16/24 12:46 rosuvastatin Allergy Unknown myalgia Verified 10/16/24 12:46 Home Medications ?Medication ?Instructions ?Recorded ?Confirmed ?Type furosemide 40 mg tablet See Rx Instructions .Route 08/02/24 10/07/24 Rx .COMPLEX #180 tabs doxazosin 4 mg tablet (Cardura) 4 mg PO QHS #30 tabs 08/08/24 08/08/24 Rx clopidogrel 75 mg tablet (Plavix) 75 mg PO DAILY 09/30/24 09/30/24 History docusate sodium 100 mg capsule 100 mg PO DAILY 09/30/24 09/30/24 History (Colace) ezetimibe 10 mg tablet (Zetia) 10 mg PO DAILY 09/30/24 09/30/24 History famotidine 20 mg tablet (Acid 20 mg PO BID 09/30/24 09/30/24 History Controller) finasteride 5 mg tablet 5 mg PO DAILY 09/30/24 09/30/24 History fluticasone propionate 50 2 spray intranasal DAILY PRN 09/30/24 09/30/24 History mcg/actuation nasal allergy symptoms spray,suspension (Flonase Allergy Relief) metolazone 5 mg tablet 5 mg PO DAILY 09/30/24 09/30/24 History morphine 15 mg immediate release 15 mg PO Q8H PRN pain 09/30/24 09/30/24 History tablet pioglitazone 15 mg tablet (Actos) 15 mg PO DAILY 09/30/24 09/30/24 History verapamil 120 mg tablet 120 mg PO DAILY 09/30/24 09/30/24 History Laboratory Tests 10/15/24 10/15/24 10/16/24 17:18 20:51 05:05 WBC RBC Hgb Hct MCV MCH MCHC RDW Plt Count MPV Immature Gran % (Auto) Neut % (Auto) Lymph % (Auto) [place] % (Auto) Eos % (Auto) Baso % (Auto) Lymph # (Auto) [place] # (Auto) Eos # (Auto) Baso # (Auto) Abs Immat Gran (auto) Absolute Neuts (auto) Absolute Nucleated RBC Nucleated RBC % Sodium Potassium Chloride Carbon Dioxide Anion Gap BUN Creatinine Estim Creat Clear Calc Estimated GFR Glucose POC Capillary Glucose 121 H mg/dl 239 H mg/dl 119 H mg/dl (65-105) (65-105) (65-105) Calcium Magnesium Total Bilirubin AST ALT Alkaline Phosphatase NT-Pro-B Natriuret Pep Total Protein Albumin 10/16/24 10/16/24 10/16/24 05:14 08:06 12:05 WBC 12.4 H K/mm3 (4.5-10.0) RBC 3.14 L M/mm3 (4.6-6.20) Hgb 9.2 L g/dL (14.0-18.0) Hct 29.5 L % (42.0-52.0) MCV 93.9 fl (80-100) MCH 29.3 pg (26-34) MCHC 31.2 L g/dl (32-36) RDW 15.1 H % (11.5-14.5) Plt Count 625 H k/mm3 (150-375) MPV 8.9 fl (7.4-10.4) Immature Gran % (Auto) 2.5 H % (0-0.5) Neut % (Auto) 74.4 H % (45.5-73.1) Lymph % (Auto) 8.8 L % (18.3-44.2) [place] % (Auto) 12.1 H % (2.6-8.5) Eos % (Auto) 1.4 % (0-4.4) Baso % (Auto) 0.8 % (0.2-1.2) Lymph # (Auto) 1.09 K/mm3 (0.9-3.2) [place] # (Auto) 1.5 H K/mm3 (0.1-0.6) Eos # (Auto) 0.2 K/mm3 (0-0.3) Baso # (Auto) 0.1 K/mm3 (0.0-0.1) Abs Immat Gran (auto) 0.31 H K/mm3 (0.00-0.031) Absolute Neuts (auto) 9.3 H K/mm3 (1.3-6.7) Absolute Nucleated RBC 0.000 K/mm3 (0.0-0.012) Nucleated RBC % 0.0 % (0.0-0.2) Sodium 135 L mmol/L (137-145) Potassium 4.6 mmol/L (3.4-5.0) Chloride 93 L mmol/L (98-107) Carbon Dioxide 33 H mmol/L (22-30) Anion Gap 9 mmol/L (4-12) BUN 45 H mg/dL (9-20) Creatinine 2.63 H mg/dL (0.7-1.3) Estim Creat Clear Calc 21 ml/min Estimated GFR 23 L (59 - ) Glucose 116 H mg/dL (65-110) POC Capillary Glucose 111 H mg/dl 120 H mg/dl (65-105) (65-105) Calcium 8.8 mg/dL (8.4-10.2) Magnesium 1.7 mg/dL (1.6-2.3) Total Bilirubin 0.4 mg/dL (0.2-1.3) AST 31 U/L (17-59) ALT 16 U/L (6-50) Alkaline Phosphatase 87 U/L (38-126) NT-Pro-B Natriuret Pep 3660 H pg/mL (19.9-100) Total Protein 6.6 g/dL (6.3-8.2) Albumin 3.0 L g/dL (3.5-5.1) Patient hx anesthesia problems: none Family hx anesthesia problems: none Results Review: All pre-operative results and documents have been reviewed as part of the pre- operative evaluation. [facility] Past Medical History Medical History Choledocholithiasis with acute cholecystitis Cholangitis Elevated LFTs Chronic pain 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 URI (upper respiratory infection) Preoperative clearance History of colon polyps Dupuytren's contracture of right hand Pre-operative clearance Trigger finger, right middle finger Aortic stenosis Iron deficiency anemia Low back pain radiating to left leg Type II diabetes mellitus with renal manifestations Essential hypertension, benign Mixed hyperlipidemia Bilateral inguinal hernia Small fat containing bilateral inguinal hernias noted on CT 09/30/2024 Hepatic steatosis Chronic pain GERD (gastroesophageal reflux disease) Dyslipidemia BPH (benign prostatic hyperplasia) Type 2 diabetes mellitus Hypertension Hyperlipidemia Chronic kidney disease Heart failure 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 moderate mitral valve regurgitation Surgical History Surgical History History of repair of right rotator cuff (~07/05/14) Subacromial Decompression; Limited Debridement Status post cataract extraction of both eyes with insertion of intraocular lens 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 He has 3 children. He is a retired [employer]. He he is a lifelong nonsmoker and does not drink alcohol or use illicit substances. He ambulates with a walker. Code status: Full code (he states he would not want long-term intubation or feeding tube) Surrogate decision maker: Nallely () Smoking status: Never smoker Second hand tobacco smoke exposure: No Alcohol intake: never Substance use: never Do You Feel Safe in your Home?: Yes Lack of Transportation: YES Lack of Food: Never True Current Housing: I Have Housing Concerned About Future Housing: No Difficulty Paying Gas/Electric Bills: No Difficulty Paying for Meds: No Currently Unemployed: No Education: High School Diploma/GED Difficulty w/ Childcare or Family Care: No Living arrangements: with family Gender identity (if verbalized by the patient): Male Spiritual care concerns: No Anes - Eval Final PreProcedure Day of Procedure 10/16/24 12:46 Patient weight: obese Heart: regular rate and rhythm Lungs: decreased breath sounds Airway: Mallampati scale class III Neurological: alert and oriented Last oral intake: >/= 8 hours ASA classification: IV Emergent: no Anesthetic plan: proceed Anesthesia type and monitoring: general GIVS and standard monitoring Results Review: All pre-operative results and documents have been reviewed as part of the pre-op erative evaluation. Informed Consent: The patient's anesthetic plan and its attendant risks and benefits were discussed with the patient/family/POA. Questions were solicited and answers provided to the satisfaction of the patient/family/POA.
[2024-10-16] MEDS: SIMETHICONE ORAL SUSPENSION 20 MG/0.3 ML 30 ML BOTTLE 1.8 ML PO (12:47)
[2024-10-16] MEDS: LACTATED RINGERS 1,000 ML 150 ML IV CONT (12:49)
[2024-10-16] MEDS: INDOMETHACIN 50 MG SUPP.RECT 100 MG RECTAL (12:50)
[2024-10-16] MEDS: EPOETIN ALFA-EPBX 10,000 UNITS/ML VIAL 10000 UNITS SUB-Q (17:01)
[2024-10-16] MEDS: EZETIMIBE 10 MG TABLET PO (17:01)
[2024-10-16] MEDS: FINASTERIDE 5 MG TABLET PO (17:02)
[2024-10-16] MEDS: FAMOTIDINE 20 MG TABLET PO ×2 (17:02→23:23)
[2024-10-16] MEDS: PANTOPRAZOLE 40 MG TABLET PO (17:03)
[2024-10-16] MEDS: FUROSEMIDE 40 MG TABLET PO (17:05)
[2024-10-16] MEDS: SACCHAROMYCES BOULARDII 250 MG CAPSULE PO (17:05)
[2024-10-16] MEDS: SODIUM CHLORIDE 500 MG TABLET PO (17:05)
[2024-10-16] MEDS: cefTRIAXone 2 GM/NS 100 ML 2 GM/100 ML BAG IVPB (17:34)
--- NOTE | 2024-10-16 18:15 | P.PNGI_ITS ---
Progress Note: A&P Assessment and Plan (1) Choledocholithiasis with acute cholecystitis: Code(s): K80.42 - Calculus of bile duct with acute cholecystitis without obstruction Status: Acute Assessment and Plan: See ERCP report. Common bile duct cleared from stones. The patient is doing well. No need for follow-up from our end, however cholecystostomy tube should be carefully supervised by surgery and interventional radiology team. Subjective Date/time seen: 10/16/24 18:15 Interval history: Patient asymptomatic, no abdominal pain or discomfort. Objective Data Vital Signs Vital Signs: Vital Signs - 24 hr 10/15/24 20:53 10/16/24 05:07 10/16/24 08:16 Temperature 98.1 F 97.8 F Pulse Rate 106 H 88 88 Respiratory Rate 12 12 12 Blood Pressure 146/55 H 158/76 H Pulse Oximetry 90 94 94 Oxygen Delivery Room Air Oxygen Flow Rate Fraction of Inspired Oxygen 21 10/16/24 08:57 10/16/24 12:40 10/16/24 14:34 Temperature 99.1 F 98.4 F Pulse Rate 96 81 Respiratory Rate 18 17 Blood Pressure 163/66 H 110/63 Pulse Oximetry 96 100 Oxygen Delivery Room Air Room Air Simple Face Mask Oxygen Flow Rate 8 Fraction of Inspired Oxygen 10/16/24 14:44 10/16/24 14:54 10/16/24 15:04 Temperature 98.6 F Pulse Rate 80 92 89 Respiratory Rate 18 19 11 L Blood Pressure 115/71 147/76 H 157/83 H Pulse Oximetry 100 100 98 Oxygen Delivery Room Air Room Air Room Air Oxygen Flow Rate Fraction of Inspired Oxygen 10/16/24 15:14 10/16/24 15:24 10/16/24 15:34 Temperature 98.7 F Pulse Rate 88 86 87 Respiratory Rate 15 14 17 Blood Pressure 163/80 H 168/82 H 161/77 H Pulse Oximetry 100 98 99 Oxygen Delivery Room Air Room Air Room Air Oxygen Flow Rate Fraction of Inspired Oxygen Intake/Output Intake/Output: Intake & Output 10/13/24 10/14/24 10/15/24 10/16/24 23:59 23:59 23:59 23:59 Intake Total 1120 5212 027 7378 Output Total 1999 6680 2910 3500 Kcdblov -860 -9860 -2029 -2190 Meds/Results Medications: Active Medications Generic Name Dose Route Start Last Admin Trade Name Freq PRN Reason Stop Dose Admin Acetaminophen 650 mg 09/30/24 19:02 10/15/24 17:13 Acetaminophen 325 Mg Tablet PO 650 mg Q4H PRN Administration Mild Pain (1-3) or Fever Albuterol 2 puff 10/03/24 15:40 10/04/24 09:06 Albuterol Sulfate (*Sp) Aerosol 1 Puff INHALATION 2 puff Q6HRT PRN Administration Shortness Of Breath Or Wheezing Clopidogrel Bisulfate 75 mg 10/01/24 09:00 10/12/24 08:42 Clopidogrel Bisulfate 75 Mg Tablet PO 75 mg DAILY VU Administration Dextrose 12.5 gm 09/30/24 20:29 Dextrose 50% 25 Gm/50 Ml Syringe IV PUSH PRN PRN Hypoglycemia Protocol Docusate Sodium 100 mg 10/01/24 09:00 10/16/24 12:54 Docusate Sodium 100 Mg Capsule PO Not Given DAILY VU Ezetimibe 10 mg 10/01/24 09:00 10/16/24 17:01 Ezetimibe 10 Mg Tablet PO 10 mg DAILY VU Administration Epoetin [place]-epbx 10,000 units 10/16/24 09:00 10/16/24 17:01 Epoetin [place]-Epbx 10,000 Units/Ml Vial SUB-Q 10,000 units TUTA@09 VU Administration Famotidine 20 mg 09/30/24 21:00 10/16/24 17:02 Famotidine 20 Mg Tablet PO 20 mg Q12HR VU Administration Finasteride 5 mg 10/01/24 09:00 10/16/24 17:02 Finasteride 5 Mg Tablet PO 5 mg DAILY VU Administration Fluticasone Propionate 2 spray 09/30/24 20:28 10/14/24 08:33 Fluticasone Propionate 0.05% Na Spr 16 Gm Btl (*Bkc) NASAL 2 spray DAILY PRN Administration allergy symptoms Furosemide 40 mg 10/09/24 09:00 10/16/24 17:05 Furosemide 40 Mg Tablet PO 40 mg BID VU Administration Glucagon 1 mg 09/30/24 20:29 Glucagon For Inj 1 Mg Vial IM PRN PRN Hypoglycemia Protocol Glucose 15 gm 09/30/24 20:29 Glucose Oral Gel 15 Gm Of Glucse In 37.5 Gm Tube PO PRN PRN Hypoglycemia Protocol Guaifenesin 600 mg 10/11/24 21:00 10/16/24 17:02 Guaifenesin 12 Hr 600 Mg Tabcr PO 10/18/24 20:59 Not Given Q12HR VU Heparin Sodium (Porcine) 5,000 units 09/30/24 21:00 10/14/24 08:34 Heparin Sodium 5,000 Units/Ml Vial SUB-Q 5,000 units Q12HR VU Administration Dextrose 1,000 mls @ 100 mls/hr 09/30/24 20:29 Dextrose 5% 1,000 Ml IVPB PRN PRN Hypoglycemia Protocol Ceftriaxone Sodium 2 gm in 100 mls @ 200 mls/hr 10/08/24 14:00 10/16/24 17:34 Rocephin 2 Gm/Ns 100 Ml IVPB 200 mls/hr Q24H VU Administration Ampicillin Sodium 2 gm in 100 mls @ 200 mls/hr 10/16/24 14:00 10/16/24 16:54 Ampicillin 2 Gm/Ns 100 Ml IVPB 200 mls/hr Q8H VU Administration Insulin Aspart 1 - 3 units 09/30/24 21:00 10/16/24 00:18 Insulin Aspart (*Bkc) 100 Units/Ml SUB-Q Not Given HS VU Protocol Insulin Aspart 3 - 6 units 10/01/24 08:00 10/16/24 17:11 Insulin Aspart (*Bkc) 100 Units/Ml SUB-Q Not Given TIDWM VU Protocol Metronidazole 500 mg 10/08/24 14:00 10/16/24 17:10 Metronidazole 500 Mg Tablet PO 500 mg Q8HR VU Administration Morphine Sulfate 15 mg 10/07/24 09:53 10/16/24 17:05 Morphine Sulfate (*Crx) 15 Mg Tab Ir PO 15 mg Q4H PRN Administration Pain Rated 7-10 Ondansetron HCl 4 mg 09/30/24 19:02 10/12/24 11:54 Ondansetron Inj 4 Mg/2 Ml Vial IV PUSH 4 mg Q4H PRN Administration Nausea Pantoprazole Sodium 40 mg 10/07/24 09:00 10/16/24 17:03 Pantoprazole 40 Mg Tablet PO 40 mg QAM VU Administration Polyethylene Glycol 17 gm 10/10/24 13:40 10/16/24 12:55 Polyethylene Glycol 3350 17 Gm Powd.Pack PO Not Given QAM VU Saccharomyces Boulardii 250 mg 10/11/24 17:00 10/16/24 17:05 Saccharomyces Boulardii 250 Mg Capsule PO 250 mg BID VU Administration Sodium Chloride 500 mg 10/06/24 17:00 10/16/24 17:05 Sodium Chloride 500 Mg Tablet PO 500 mg BID VU Administration Verapamil HCl 120 mg 09/30/24 21:00 10/16/24 17:03 Verapamil Hcl 120 Mg Tablet Immed Release PO Not Given Q12HR VU Radiology Results: ITS Impressions Abdomen/Pelvis CT 09/30/24 19:00 IMPRESSION: Gallbladder hydrops without inflammatory change. Dilated common bile duct, m easuring 14 mm. No obstructing stone or mass detected. Correlate with biliary labs. 3.4 cm fusiform infrarenal abdominal aortic aneurysm. Consider follow-up in 3 years. Upper Quadrant Ultrasound 10/01/24 08:43 IMPRESSION: 1. Cholelithiasis with a normal-appearing gallbladder but with mild intra and extrahepatic biliary ductal dilation which raises concern for a nonvisualized distal obstructing choledocholithiasis. Correlate with liver function tests and if clinically indicated could consider further evaluation with either MRCP or ERCP. Hepatobiliary Scan Nuclear Medicine 10/05/24 08:35 IMPRESSION: 1. No evident gallbladder activity consistent with acute cholecystitis. Cholecystostomy 10/05/24 16:57 IMPRESSION: 1. Successful ultrasound-guided cholecystostomy tube placement. 2. 35 mL bile was sent for aerobic, anaerobic, and fungal cultures. 3. The catheter will be managed by Dr. Brennan. Chest X-Ray 10/10/24 06:58 Impression: Clear lungs. Status post aortic valve replacement, with pacemaker device. Cholangiogram 10/12/24 14:45 IMPRESSION: 1. Cholelithiasis and choledocholithiasis obstructing distal choledocholithiasis with no observed contrast emptying into the duodenum. The cystic duct is patent. Consider ERCP for stone extraction and sphincterotomy to relieve the distal ductal obstruction. Labs Labs: Laboratory Results - last 24 hr 10/15/24 10/16/24 10/16/24 20:51 05:05 05:14 WBC 12.4 H RBC 3.14 L Hgb 9.2 L Hct 29.5 L MCV 93.9 MCH 29.3 MCHC 31.2 L RDW 15.1 H Plt Count 625 H MPV 8.9 Immature Gran % (Auto) 2.5 H Neut % (Auto) 74.4 H Lymph % (Auto) 8.8 L [place] % (Auto) 12.1 H Eos % (Auto) 1.4 Baso % (Auto) 0.8 Lymph # (Auto) 1.09 [place] # (Auto) 1.5 H Eos # (Auto) 0.2 Baso # (Auto) 0.1 Abs Immat Gran (auto) 0.31 H Absolute Neuts (auto) 9.3 H Absolute Nucleated RBC 0.000 Nucleated RBC % 0.0 Sodium 135 L Potassium 4.6 Chloride 93 L Carbon Dioxide 33 H Anion Gap 9 BUN 45 H Creatinine 2.63 H Estim Creat Clear Calc 21 Estimated GFR 23 L Glucose 116 H POC Capillary Glucose 239 H 119 H Calcium 8.8 Magnesium 1.7 Total Bilirubin 0.4 AST 31 ALT 16 Alkaline Phosphatase 87 NT-Pro-B Natriuret Pep 3660 H Total Protein 6.6 Albumin 3.0 L 10/16/24 10/16/24 10/16/24 08:06 12:05 12:43 WBC RBC Hgb Hct MCV MCH MCHC RDW Plt Count MPV Immature Gran % (Auto) Neut % (Auto) Lymph % (Auto) [place] % (Auto) Eos % (Auto) Baso % (Auto) Lymph # (Auto) [place] # (Auto) Eos # (Auto) Baso # (Auto) Abs Immat Gran (auto) Absolute Neuts (auto) Absolute Nucleated RBC Nucleated RBC % Sodium Potassium Chloride Carbon Dioxide Anion Gap BUN Creatinine Estim Creat Clear Calc Estimated GFR Glucose POC Capillary Glucose 111 H 120 H 100 Calcium Magnesium Total Bilirubin AST ALT Alkaline Phosphatase NT-Pro-B Natriuret Pep Total Protein Albumin 10/16/24 16:36 WBC RBC Hgb Hct MCV MCH MCHC RDW Plt Count MPV Immature Gran % (Auto) Neut % (Auto) Lymph % (Auto) [place] % (Auto) Eos % (Auto) Baso % (Auto) Lymph # (Auto) [place] # (Auto) Eos # (Auto) Baso # (Auto) Abs Immat Gran (auto) Absolute Neuts (auto) Absolute Nucleated RBC Nucleated RBC % Sodium Potassium Chloride Carbon Dioxide Anion Gap BUN Creatinine Estim Creat Clear Calc Estimated GFR Glucose POC Capillary Glucose 138 H Calcium Magnesium Total Bilirubin AST ALT Alkaline Phosphatase NT-Pro-B Natriuret Pep Total Protein Albumin
[2024-10-16] MEDS: VERAPAMIL HCL 120 MG TABLET IMMED RELEASE PO (21:25)
[2024-10-16] MEDS: guaiFENesin 12 HR 600 MG TABCR PO (21:26)
[2024-10-17] MEDS: MORPHINE SULFATE (*CRX) 15 MG TAB IR PO ×4 (02:14→22:10)
[2024-10-17 05:03] VITALS: BP 130/65; PULSE 80; RESP 18; TEMP 36.6; O2SAT 100
[2024-10-17 05:19] LABS: Hematocrit 30.3 % (42.0-52.0); Hemoglobin 9.3 g/dL (14.0-18.0); Immature Granulocyte Percent A 2.1 % (0-0.5); Lymphocytes Absolute Auto 0.83 K/mm3 (0.9-3.2); Mean Corpuscular HGB Conc 30.7 g/dl (32-36); Mean Corpuscular Hemoglobin 29.2 pg (26-34); Mean Corpuscular Volume 95.0 fl (80-100); Nucleated Red Blood Cells Absolute Auto 0.000 K/mm3 (0.0-0.012); Nucleated Red Blood Cells Perc 0.0 % (0.0-0.2); Platelet Count Result 613 k/mm3 (150-375); Red Blood Count 3.19 M/mm3 (4.6-6.20); White Blood Count 11.5 K/mm3 (4.5-10.0)
[2024-10-17 05:29] LABS: Alanine Aminotransferase 16 U/L (6-50); Albumin Level 3.2 g/dL (3.5-5.1); Alkaline Phosphatase 84 U/L (38-126); Anion Gap 8 mmol/L (4-12); Aspartate Amino Transferase 33 U/L (17-59); Bilirubin,Total 0.4 mg/dL (0.2-1.3); Blood Urea Nitrogen 40 mg/dL (9-20); Calcium 8.6 mg/dL (8.4-10.2); Carbon Dioxide 36 mmol/L (22-30); Chloride 92 mmol/L (98-107); Estimated CRCL calculation 21 ml/min; Estimated Glomerular Filt Rate 23; Glucose 127 mg/dL (65-110); Magnesium 1.7 mg/dL (1.6-2.3); Potassium 4.6 mmol/L (3.4-5.0); Sodium 136 mmol/L (137-145); Total Protein 6.9 g/dL (6.3-8.2)
[2024-10-17 05:37] LABS: NT Pro B Type Natriuretic Pept 4220 pg/mL (19.9-100)
[2024-10-17] MEDS: AMPICILLIN 2 GM/NS 100 ML 2 GM/100 ML BAG IVPB ×3 (06:32→22:02)
--- NOTE | 2024-10-17 08:17 | PM.IMPN ---
Progress Note: A&P Assessment and Plan (1) Chest pain: Qualifiers: Chest pain type: unspecified Qualified Code(s): R07.9 - Chest pain, unspecified Code(s): R07.9 - Chest pain, unspecified Status: Acute Assessment and Plan: Prior chest pain resolved. No shortness of breath. Thought to be more consistent with GI cause with reported indigestion and significant right upper quadrant pain. Cardiology has been following -Troponins 0.053, 0.080, 0.090 -Holding Antihypertensives and Plavix. -->HOLD Plavix since 10/05 for lap torrie per surg. Initially deferred 05/27 bacteremia --Started heparin drip for acute DVT. Hold at 6am for OR (2) Acute kidney injury superimposed on CKD: Code(s): N17.9 - Acute kidney failure, unspecified; N18.9 - Chronic kidney disease, unspecified Status: Acute Assessment and Plan: Patient has chronic kidney disease stage 4 with acute kidney injury. Most likely prerenal due to intervascular volume depletion. Initially held Lasix and rehydrated, fluids at 75ml/hr. Nephrology was consulted from the ER. 10/02- cr/bun 2.96/100, peaked 10/05: Cr/BUN: 3.54/94. Has been fluctuating, but stable at 40/2.64 on furosemide side 10/09. 09/30 UA trace protein. 10/01 protein/creat ratio 0.36 - Continue flomax --continue furosemide 20mg daily --Nephrology following, appreciate recommendations (3) Gallbladder hydrops: Code(s): K82.1 - Hydrops of gallbladder Status: Acute Assessment and Plan: Admitted for evaluation of abdominal and chest pain, associated with nausea. Surgery and GI consulted IMAGING 09/30 CT did not suggest overt acute cholecystitis but patient does have significant kit right upper quadrant pain on palpation and worsening of his nausea with palpation of right upper quadrant. 10/01 RUQ US: Cholelithiasis with a normal-appearing gallbladder but with mild intra and extrahepatic biliary ductal dilation which raises concern for a nonvisualized distal obstructing choledocholithiasis. Correlate with liver function tests and if clinically indicated could consider further evaluation with either MRCP or ERCP. 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 10/12: Cholangiogram showed: Cholelithiasis and choledocholithiasis obstructing distal choledocholithiasis with no observed contrast emptying into the duodenum. The cystic duct is patent. Consider ERCP for stone extraction and sphincterotomy to relieve the distal ductal obstruction. 10/16 ERCP showed: Ampulla appeared normal with small papillary orifice. Selective, deep bile duct cannulation achieved Pappillatome and a 0.035 inch wire. There were many filling defects in the distal CBD consistent with stones. A sphincterectomy was performed with a therapeutic 3.5 Fr papillotome device in the bile duct with a 8 mm cut. A stone extraction was performed with a 9-12 mm balloon catheter and the assistance of a 0.035 inch short-wire access for complete clearance of approximately 10 unfragmented stones. One more passage of the balloon was used to wash the common bile duct. The balloon was extracted through the papillotomy orifice insufflated at 9 mm, no stones of debris, rendering the common bile duct cleared. PLAN --Antibiotics for bacteremia as noted: Ampicillin, Ceftriaxone, and Metronidazole --OR tomorrow for lap torrie, NPO post midnight --BMP, CBC, mag, phos --Heparin drip off at 6am --OK for OR per cardiology --Plavix has been held since 10/12 (4) Type 2 diabetes mellitus with hyperglycemia, without long-term current use of insulin: Code(s): E11.65 - Type 2 diabetes mellitus with hyperglycemia Status: Chronic Assessment and Plan: Holding Actos -Moderate dose sliding scale insulin with Accu-Cheks a.c. HS and hypoglycemia protocol. -Glucose has been stable during stay (5) Elevated brain natriuretic peptide (BNP) level: Code(s): R79.89 - Other specified abnormal findings of blood chemistry Status: Acute Assessment and Plan: LABS: 10/11: BNP 9,700. Lasix 40 mg ivp x 1 given. Trending down with furosemide 40mg BID and creatinine improving. 10/13 Echocardiogram showed: Summary 1. Definity contrast administered improved wall motion interpretation. 2. Left ventricular chamber dimension is normal. 3. Left ventricular systolic function is normal, estimated at 60-65. 4. There is moderate concentric increased left ventricular wall thickness. 5. The left ventricular diastolic function is grade I diastolic dysfunction. 6. E/e' 15 is elevated. 7. Left atrial chamber dimension is mildly enlarged. 8. 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 Consider ADOLFO if clinically indicated. 9. There is moderate to severe mitral valve regurgitation. 10. Circumferential echogenic mass measuring 1.4 cm x 0.8 cm attached to left atrial side of mitral valve annulus which probably calcified mass. There is an additional small calcified echogenic mass attached to left ventricular side of posterior mitral valve leaflet. Probably calcifications more likely than vegetations. Consider ADOLFO if clinically indicated. 11. There is mild tricuspid valve regurgitation. 12. Mild pulmonary hypertension, estimated pulmonary arterial systolic pressure is 40 mmHg. 13. There is trace pulmonic regurgitation. PLAN Cardiology consulted, planning ADOLFO outpatient with special needs child caregiver Hold lasfermín in AM for OR (6) Chronic pain: Qualifiers: Chronic pain type: chronic pain syndrome Qualified Code(s): G89.4 - Chronic pain syndrome Code(s): G89.29 - Other chronic pain Status: Acute Assessment and Plan: Continue home morphine 15 mg Q 8 hours p.r.n. pain 7-10. (7) Abdominal aortic aneurysm (AAA) 3.0 cm to 5.5 cm in diameter in male: Code(s): I71.40 - Abdominal aortic aneurysm, without rupture, unspecified Status: Acute Assessment and Plan: Likely chronic will defer follow-up to patient's primary care provider for serial imaging (8) Bacteremia: Code(s): R78.81 - Bacteremia Status: Acute Assessment and Plan: LABS 10/04 Blood culutre 1/2 enterococcus faecalis 10/05 Blood cultures 2/2 enterococcus faecalis 10/05 Fungal cx--NGTD 10/05 Gallbladder culture enteroccus species 10/08 Blood cultures 2/2 No growth Antbiotics Treated with empiric Vanc and Ceftriaxone, changed to Ampicillin and Gentamycin 10/07 --Continue Ampicillin, Ceftiraxone, and Metronidazole (9) Hyponatremia: Code(s): E87.1 - Hypo-osmolality and hyponatremia Status: Acute Assessment and Plan: Levels have been low since admission despite IVF NS. -Sodium chl tablets 500mg started 10/06 and sodium improved from 131<136 -Will continue to trend pt status and daily labs (10) Antiplatelet or antithrombotic long-term use: Code(s): Z79.02 - alf (current) use of antithrombotics/antiplatelets Status: Acute Assessment and Plan: Pt with hx of pacemaker and plavix long-term use. Plavix on hold, last dose 10/12. --Hold plavix for possible OR tomorrow --Discussed OR with cardiology --Started a heparin drip, hold at 6am. Restart when able post op (11) Lower extremity edema: Code(s): R60.0 - Localized edema Status: Acute Assessment and Plan: Acute peroneal DVT on dopplers today --Started a heparin drip without a bolus Time Spent With Patient Time: 56 minutes Subjective Date/time seen: 10/17/24 08:17 Interval history: VSS. Surgery planning OR tomorrow with Dr. Yeager. Spoke with cardiology, Dr. Farnsworth, and ok for OR tomorrow for cholecystectomy. Patient reports right hip pain that is chronic. Otherwise denies chest pain, shortness of breath Has LE edema, ordered dopplers and RLE positive for DVT. Has been on heparin subq for dvt prophylaxis. Changed to a heparin drip without a bolus since ERCP 10/16 NT-proBNP elevated. Chest x-ray showed minimal haziness in the left lung base Mag 1.7, replacing Review of Systems Review of Systems: 12 systems were reviewed with pertinent positives and negatives per HPI. Except as documented in the HPI, all other systems were reviewed and are negative. All systems reviewed & are unremarkable except as noted in HPI and below Exam Narrative: General - Awake and alert. No acute distress Eyes - PERRLA, EOM intact ENT - No thrush, No erythema Neck - No noticeable or palpable swelling Lymph Nodes - No lymphadenopathy Cardiovascular - RRR, +murmur, no JVD Lungs: Rare crackles bilateral bases, No wheezing, use of accessory muscles Skin - Skin warm and dry, no wounds or rashes Abdomen - Normal bowel sounds, abdomen soft and nontender to light palpation. Right abdominal drain with bilious drainage Extremities - Bilateral lower extremity edema, R>L, no cyanosis or clubbing Musculoskeletal - 5/5 strength, normal range of motion, no swollen or erythematous joints. Neurological ? Alert and oriented x 3, CN 2-12 grossly intact. Psych: Normal mood and affect Objective Data Vital Signs Vital Signs: Vital Signs - 24 hr 10/16/24 08:57 10/16/24 12:40 10/16/24 14:34 Temperature 99.1 F 98.4 F Pulse Rate 96 81 Respiratory Rate 18 17 Blood Pressure 163/66 H 110/63 Pulse Oximetry 96 100 Oxygen Delivery Room Air Room Air Simple Face Mask Oxygen Flow Rate 8 10/16/24 14:44 10/16/24 14:54 10/16/24 15:04 Temperature 98.6 F Pulse Rate 80 92 89 Respiratory Rate 18 19 11 L Blood Pressure 115/71 147/76 H 157/83 H Pulse Oximetry 100 100 98 Oxygen Delivery Room Air Room Air Room Air Oxygen Flow Rate 10/16/24 15:14 10/16/24 15:24 10/16/24 15:34 Temperature 98.7 F Pulse Rate 88 86 87 Respiratory Rate 15 14 17 Blood Pressure 163/80 H 168/82 H 161/77 H Pulse Oximetry 100 98 99 Oxygen Delivery Room Air Room Air Room Air Oxygen Flow Rate 10/16/24 21:18 10/16/24 21:36 10/17/24 05:03 Temperature 97.5 F L 97.8 F Pulse Rate 77 80 Respiratory Rate 16 18 Blood Pressure 133/57 L 130/65 Pulse Oximetry 99 100 Oxygen Delivery Room Air Oxygen Flow Rate Intake/Output Intake/Output: Intake & Output 10/14/24 10/15/24 10/16/24 10/17/24 23:59 23:59 23:59 23:59 Intake Total 9248 016 7050 450 Output Total 3810 2910 4850 500 Balance -2530 -2030 -3250 -50 Meds/Results Medications: Active Medications Generic Name Dose Route Start Last Admin Trade Name Freq PRN Reason Stop Dose Admin Acetaminophen 650 mg 09/30/24 19:02 10/15/24 17:13 Acetaminophen 325 Mg Tablet PO 650 mg Q4H PRN Administration Mild Pain (1-3) or Fever Albuterol 2 puff 10/03/24 15:40 10/04/24 09:06 Albuterol Sulfate (*Sp) Aerosol 1 Puff INHALATION 2 puff Q6HRT PRN Administration Shortness Of Breath Or Wheezing Clopidogrel Bisulfate 75 mg 10/01/24 09:00 10/12/24 08:42 Clopidogrel Bisulfate 75 Mg Tablet PO 75 mg DAILY VU Administration Dextrose 12.5 gm 09/30/24 20:29 Dextrose 50% 25 Gm/50 Ml Syringe IV PUSH PRN PRN Hypoglycemia Protocol Docusate Sodium 100 mg 10/01/24 09:00 10/16/24 12:54 Docusate Sodium 100 Mg Capsule PO Not Given DAILY VU Ezetimibe 10 mg 10/01/24 09:00 10/16/24 17:01 Ezetimibe 10 Mg Tablet PO 10 mg DAILY VU Administration Epoetin Gordo-epbx 10,000 units 10/16/24 09:00 10/16/24 17:01 Epoetin [place]-Epbx 10,000 Units/Ml Vial SUB-Q 10,000 units TUTHSA@09 VU Administration Famotidine 20 mg 09/30/24 21:00 10/16/24 23:23 Famotidine 20 Mg Tablet PO 20 mg Q12HR VU Administration Finasteride 5 mg 10/01/24 09:00 10/16/24 17:02 Finasteride 5 Mg Tablet PO 5 mg DAILY VU Administration Fluticasone Propionate 2 spray 09/30/24 20:28 10/14/24 08:33 Fluticasone Propionate 0.05% Na Spr 16 Gm Btl (*Bkc) NASAL 2 spray DAILY PRN Administration allergy symptoms Furosemide 40 mg 10/09/24 09:00 10/16/24 17:05 Furosemide 40 Mg Tablet PO 40 mg BID VU Administration Glucagon 1 mg 09/30/24 20:29 Glucagon For Inj 1 Mg Vial IM PRN PRN Hypoglycemia Protocol Glucose 15 gm 09/30/24 20:29 Glucose Oral Gel 15 Gm Of Glucse In 37.5 Gm Tube PO PRN PRN Hypoglycemia Protocol Guaifenesin 600 mg 10/11/24 21:00 10/16/24 21:26 Guaifenesin 12 Hr 600 Mg Tabcr PO 10/18/24 20:59 600 mg Q12HR VU Administration Heparin Sodium (Porcine) 5,000 units 09/30/24 21:00 10/14/24 08:34 Heparin Sodium 5,000 Units/Ml Vial SUB-Q 5,000 units Q12HR VU Administration Dextrose 1,000 mls @ 100 mls/hr 09/30/24 20:29 Dextrose 5% 1,000 Ml IVPB PRN PRN Hypoglycemia Protocol Ceftriaxone Sodium 2 gm in 100 mls @ 200 mls/hr 10/08/24 14:00 10/16/24 18:04 Rocephin 2 Gm/Ns 100 Ml IVPB Infused Q24H VU Infusion Ampicillin Sodium 2 gm in 100 mls @ 200 mls/hr 10/16/24 14:00 10/17/24 07:32 Ampicillin 2 Gm/Ns 100 Ml IVPB Infused Q8H VU Infusion Insulin Aspart 1 - 3 units 09/30/24 21:00 10/16/24 21:24 Insulin Aspart (*Bkc) 100 Units/Ml SUB-Q Not Given HS [facility] Protocol Insulin Aspart 3 - 6 units 10/01/24 08:00 10/16/24 17:11 Insulin Aspart (*Bkc) 100 Units/Ml SUB-Q Not Given TIDWM [facility] Protocol Metronidazole 500 mg 10/08/24 14:00 10/17/24 06:33 Metronidazole 500 Mg Tablet PO 500 mg Q8HR VU Administration Morphine Sulfate 15 mg 10/07/24 09:53 10/17/24 06:39 Morphine Sulfate (*Crx) 15 Mg Tab Ir PO 15 mg Q4H PRN Administration Pain Rated 7-10 Ondansetron HCl 4 mg 09/30/24 19:02 10/12/24 11:54 Ondansetron Inj 4 Mg/2 Ml Vial IV PUSH 4 mg Q4H PRN Administration Nausea Pantoprazole Sodium 40 mg 10/07/24 09:00 10/16/24 17:03 Pantoprazole 40 Mg Tablet PO 40 mg QAM [facility] Administration Polyethylene Glycol 17 gm 10/10/24 13:40 10/16/24 12:55 Polyethylene Glycol 3350 17 Gm Powd.Pack PO Not Given QAM VU Saccharomyces Boulardii 250 mg 10/11/24 17:00 10/16/24 17:05 Saccharomyces Boulardii 250 Mg Capsule PO 250 mg BID VU Administration Sodium Chloride 500 mg 10/06/24 17:00 10/16/24 17:05 Sodium Chloride 500 Mg Tablet PO 500 mg BID VU Administration Verapamil HCl 120 mg 09/30/24 21:00 10/16/24 21:25 Verapamil Hcl 120 Mg Tablet Immed Release PO 120 mg Q12HR VU Administration Radiology Results: ITS Impressions Abdomen/Pelvis CT 09/30/24 19:00 IMPRESSION: Gallbladder hydrops without inflammatory change. Dilated common bile duct, measuring 14 mm. No obstructing stone or mass detected. Correlate with biliary labs. 3.4 cm fusiform infrarenal abdominal aortic aneurysm. Consider follow-up in 3 years. Upper Quadrant Ultrasound 10/01/24 08:43 IMPRESSION: 1. Cholelithiasis with a normal-appearing gallbladder but with mild intra and extrahepatic biliary ductal dilation which raises concern for a nonvisualized distal obstructing choledocholithiasis. Correlate with liver function tests and if clinically indicated could consider further evaluation with either MRCP or ERCP. Hepatobiliary Scan Nuclear Medicine 10/05/24 08:35 IMPRESSION: 1. No evident gallbladder activity consistent with acute cholecystitis. Cholecystostomy 10/05/24 16:57 IMPRESSION: 1. Successful ultrasound-guided cholecystostomy tube placement. 2. 35 mL bile was sent for aerobic, anaerobic, and fungal cultures. 3. The catheter will be managed by Dr. Brennan. Chest X-Ray 10/10/24 06:58 Impression: Clear lungs. Status post aortic valve replacement, with pacemaker device. Cholangiogram 10/12/24 14:45 IMPRESSION: 1. Cholelithiasis and choledocholithiasis obstructing distal choledocholithiasis with no observed contrast emptying into the duodenum. The cystic duct is patent. Consider ERCP for stone extraction and sphincterotomy to relieve the distal ductal obstruction. Labs Labs: Laboratory Results - last 24 hr 10/16/24 10/16/24 10/16/24 12:05 12:43 16:36 WBC RBC Hgb Hct MCV MCH MCHC RDW Plt Count MPV Immature Gran % (Auto) Neut % (Auto) Lymph % (Auto) [place] % (Auto) Eos % (Auto) Baso % (Auto) Lymph # (Auto) [place] # (Auto) Eos # (Auto) Baso # (Auto) Abs Immat Gran (auto) Absolute Neuts (auto) Absolute Nucleated RBC Nucleated RBC % Sodium Potassium Chloride Carbon Dioxide Anion Gap BUN Creatinine Estim Creat Clear Calc Estimated GFR Glucose POC Capillary Glucose 120 H 100 138 H Calcium Magnesium Total Bilirubin AST ALT Alkaline Phosphatase NT-Pro-B Natriuret Pep Total Protein Albumin 10/16/24 10/17/24 20:43 04:50 WBC 11.5 H RBC 3.19 L Hgb 9.3 L Hct 30.3 L MCV 95.0 MCH 29.2 MCHC 30.7 L RDW 15.1 H Plt Count 613 H MPV 8.8 Immature Gran % (Auto) 2.1 H Neut % (Auto) 74.4 H Lymph % (Auto) 7.2 L [place] % (Auto) 13.2 H Eos % (Auto) 2.3 Baso % (Auto) 0.8 Lymph # (Auto) 0.83 L [place] # (Auto) 1.5 H Eos # (Auto) 0.3 Baso # (Auto) 0.1 Abs Immat Gran (auto) 0.24 H Absolute Neuts (auto) 8.6 H Absolute Nucleated RBC 0.000 Nucleated RBC % 0.0 Sodium 136 L Potassium 4.6 Chloride 92 L Carbon Dioxide 36 H Anion Gap 8 BUN 40 H Creatinine 2.64 H Estim Creat Clear Calc 21 Estimated GFR 23 L Glucose 127 H POC Capillary Glucose 166 H Calcium 8.6 Magnesium 1.7 Total Bilirubin 0.4 AST 33 ALT 16 Alkaline Phosphatase 84 NT-Pro-B Natriuret Pep 4220 H Total Protein 6.9 Albumin 3.2 L Quality VTE Prophylaxis VTE prophylaxis: pharmacologic ordered (Heparin 5000 units subQ q.12 hours.) Hospitalist MIPS Advance Care Plan I have confirmed that the patient's Advanced Care Plan is present, code status is documented, or surrogate decision maker is listed in patient medical record.: Yes Medication Reconciliation I have utilized all available resources to obtain, update and review the patients current medications (includes all prescriptions, OTC, herbals, cannabis, and nutritional supplements).: Yes
[2024-10-17] MEDS: FINASTERIDE 5 MG TABLET PO (08:31)
[2024-10-17] MEDS: FAMOTIDINE 20 MG TABLET PO ×2 (08:31→20:39)
[2024-10-17] MEDS: SACCHAROMYCES BOULARDII 250 MG CAPSULE PO ×2 (08:31→17:27)
[2024-10-17] MEDS: PANTOPRAZOLE 40 MG TABLET PO (08:32)
[2024-10-17] MEDS: SODIUM CHLORIDE 500 MG TABLET PO ×2 (08:32→17:27)
[2024-10-17] MEDS: guaiFENesin 12 HR 600 MG TABCR PO ×2 (08:32→20:39)
[2024-10-17] MEDS: DOCUSATE SODIUM 100 MG CAPSULE PO (08:32)
[2024-10-17] MEDS: VERAPAMIL HCL 120 MG TABLET IMMED RELEASE PO ×2 (08:32→20:39)
[2024-10-17] MEDS: FUROSEMIDE 40 MG TABLET PO ×2 (08:32→17:27)
[2024-10-17] MEDS: EZETIMIBE 10 MG TABLET PO (08:32)
--- NOTE | 2024-10-17 09:53 | PM.PNGS ---
Progress Note: A&P Assessment and Plan (1) Choledocholithiasis with acute cholecystitis: Code(s): K80.42 - Calculus of bile duct with acute cholecystitis without obstruction Status: Acute Assessment and Plan: Cholecystitis resolved with cholecystostomy tube, but patient found to have choledocholithiasis. Common duct stones cleared by ERCP yesterday successfully. To prevent recurrent common duct stones, we would recommend proceeding with a laparoscopic cholecystectomy by Dr. Brennan tomorrow. Description of the procedure, risks, benefits, alternatives, and expected recovery was discussed. Patient agrees to proceed. Will make him NPO after midnight and proceed with surgery tomorrow. (2) Enterococcal bacteremia: Code(s): R78.81 - Bacteremia; B95.2 - Enterococcus as the cause of diseases classified elsewhere Status: Acute Assessment and Plan: Repeat blood cx on 10/08 negative. 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 Continue to hold Plavix. 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 Diabetes mellitus complication detail: with chronic kidney disease Chronic kidney disease stage: unspecified stage Qualified Code(s): E11.22 - Type 2 diabetes mellitus with diabetic chronic kidney disease Code(s): E11.29 - Type 2 diabetes mellitus with other diabetic kidney complication Status: Chronic (6) Acute kidney injury superimposed on CKD: Code(s): N17.9 - Acute kidney failure, unspecified; N18.9 - Chronic kidney disease, unspecified Status: Acute (7) 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 Patient was started on a heparin infusion. Plan I have discussed the patient's case and plan of care with Dr. Brennan. Subjective Subjective Date/Time Seen: 10/17/24 09:53 Interval history: Patient reports feeling well until the middle of the night last night when he developed RUQ abdominal pain. This was aggravating through the night and made it difficult to sleep. He is still having some pain this morning. Denies any nausea or vomiting. Exam Const: General: comfortable and no acute distress Orientation/consciousness: patient oriented x3 GI: Inspection: non-distended and obesity GI Palp: Yes Soft to palpation, Yes Tenderness to palpation present (GI) (RUQ ), No Guarding due to palpation present (GI) and No Rebound tenderness present Auscultation: normal bowel sounds Other: Cholecystostomy tube in place with bilious drainage Objective Data Vital Signs Vital Signs: Vital Signs - 24 hr 10/16/24 12:40 10/16/24 14:34 10/16/24 14:44 Temperature 99.1 F 98.4 F Pulse Rate 96 81 80 Respiratory Rate 18 17 18 Blood Pressure 163/66 H 110/63 115/71 Pulse Oximetry 96 100 100 Oxygen Delivery Room Air Simple Face Mask Room Air Oxygen Flow Rate 8 10/16/24 14:54 10/16/24 15:04 10/16/24 15:14 Temperature 98.6 F Pulse Rate 92 89 88 Respiratory Rate 19 11 L 15 Blood Pressure 147/76 H 157/83 H 163/80 H Pulse Oximetry 100 98 100 Oxygen Delivery Room Air Room Air Room Air Oxygen Flow Rate 10/16/24 15:24 10/16/24 15:34 10/16/24 21:18 Temperature 98.7 F Pulse Rate 86 87 Respiratory Rate 14 17 Blood Pressure 168/82 H 161/77 H Pulse Oximetry 98 99 Oxygen Delivery Room Air Room Air Room Air Oxygen Flow Rate 10/16/24 21:36 10/17/24 05:03 Temperature 97.5 F L 97.8 F Pulse Rate 77 80 Respiratory Rate 16 18 Blood Pressure 133/57 L 130/65 Pulse Oximetry 99 100 Oxygen Delivery Oxygen Flow Rate Intake/Output Intake/Output: Intake & Output 10/14/24 10/15/24 10/16/24 10/17/24 23:59 23:59 23:59 23:59 Intake Total 9626 466 8672 450 Output Total 3810 2910 4850 500 Balance -2530 -2030 -3250 -50 Meds/Results Medications: Active Medications Generic Name Dose Route Start Last Admin Trade Name Freq PRN Reason Stop Dose Admin Acetaminophen 650 mg 09/30/24 19:02 10/15/24 17:13 Acetaminophen 325 Mg Tablet PO 650 mg Q4H PRN Administration Mild Pain (1-3) or Fever Albuterol 2 puff 10/03/24 15:40 10/04/24 09:06 Albuterol Sulfate (*Sp) Aerosol 1 Puff INHALATION 2 puff Q6HRT PRN Administration Shortness Of Breath Or Wheezing Clopidogrel Bisulfate 75 mg 10/01/24 09:00 10/12/24 08:42 Clopidogrel Bisulfate 75 Mg Tablet PO 75 mg DAILY VU Administration Dextrose 12.5 gm 09/30/24 20:29 Dextrose 50% 25 Gm/50 Ml Syringe IV PUSH PRN PRN Hypoglycemia Protocol Docusate Sodium 100 mg 10/01/24 09:00 10/17/24 08:32 Docusate Sodium 100 Mg Capsule PO 100 mg DAILY VU Administration Ezetimibe 10 mg 10/01/24 09:00 10/17/24 08:32 Ezetimibe 10 Mg Tablet PO 10 mg DAILY VU Administration Epoetin Gordo-epbx 10,000 units 10/16/24 09:00 10/16/24 17:01 Epoetin Gordo-Epbx 10,000 Units/Ml Vial SUB-Q 10,000 units TUTHSA@09 VU Administration Famotidine 20 mg 09/30/24 21:00 10/17/24 08:31 Famotidine 20 Mg Tablet PO 20 mg Q12HR VU Administration Finasteride 5 mg 10/01/24 09:00 10/17/24 08:31 Finasteride 5 Mg Tablet PO 5 mg DAILY VU Administration Fluticasone Propionate 2 spray 09/30/24 20:28 10/14/24 08:33 Fluticasone Propionate 0.05% Na Spr 16 Gm Btl (*Bkc) NASAL 2 spray DAILY PRN Administration allergy symptoms Furosemide 40 mg 10/09/24 09:00 10/17/24 08:32 Furosemide 40 Mg Tablet PO 40 mg BID VU Administration Glucagon 1 mg 09/30/24 20:29 Glucagon For Inj 1 Mg Vial IM PRN PRN Hypoglycemia Protocol Glucose 15 gm 09/30/24 20:29 Glucose Oral Gel 15 Gm Of Glucse In 37.5 Gm Tube PO PRN PRN Hypoglycemia Protocol Guaifenesin 600 mg 10/11/24 21:00 10/17/24 08:32 Guaifenesin 12 Hr 600 Mg Tabcr PO 10/18/24 20:59 600 mg Q12HR VU Administration Heparin Sodium (Porcine) 5,000 units 09/30/24 21:00 10/14/24 08:34 Heparin Sodium 5,000 Units/Ml Vial SUB-Q 5,000 units Q12HR VU Administration Dextrose 1,000 mls @ 100 mls/hr 09/30/24 20:29 Dextrose 5% 1,000 Ml IVPB PRN PRN Hypoglycemia Protocol Ceftriaxone Sodium 2 gm in 100 mls @ 200 mls/hr 10/08/24 14:00 10/16/24 18:04 Rocephin 2 Gm/Ns 100 Ml IVPB Infused Q24H VU Infusion Ampicillin Sodium 2 gm in 100 mls @ 200 mls/hr 10/16/24 14:00 10/17/24 07:32 Ampicillin 2 Gm/Ns 100 Ml IVPB Infused Q8H VU Infusion Insulin Aspart 1 - 3 units 09/30/24 21:00 10/16/24 21:24 Insulin Aspart (*Bkc) 100 Units/Ml SUB-Q Not Given HS VU Protocol Insulin Aspart 3 - 6 units 10/01/24 08:00 10/17/24 08:28 Insulin Aspart (*Bkc) 100 Units/Ml SUB-Q Not Given TIDWM [facility] Protocol Metronidazole 500 mg 10/08/24 14:00 10/17/24 06:33 Metronidazole 500 Mg Tablet PO 500 mg Q8HR VU Administration Morphine Sulfate 15 mg 10/07/24 09:53 10/17/24 06:39 Morphine Sulfate (*Crx) 15 Mg Tab Ir PO 15 mg Q4H PRN Administration Pain Rated 7-10 Ondansetron HCl 4 mg 09/30/24 19:02 10/12/24 11:54 Ondansetron Inj 4 Mg/2 Ml Vial IV PUSH 4 mg Q4H PRN Administration Nausea Pantoprazole Sodium 40 mg 10/07/24 09:00 10/17/24 08:32 Pantoprazole 40 Mg Tablet PO 40 mg QAM VU Administration Polyethylene Glycol 17 gm 10/10/24 13:40 10/17/24 08:37 Polyethylene Glycol 3350 17 Gm Powd.Pack PO 17 gm QAM VU Administration Saccharomyces Boulardii 250 mg 10/11/24 17:00 10/17/24 08:31 Saccharomyces Boulardii 250 Mg Capsule PO 250 mg BID VU Administration Sodium Chloride 500 mg 10/06/24 17:00 10/17/24 08:32 Sodium Chloride 500 Mg Tablet PO 500 mg BID VU Administration Verapamil HCl 120 mg 09/30/24 21:00 10/17/24 08:32 Verapamil Hcl 120 Mg Tablet Immed Release PO 120 mg Q12HR VU Administration Radiology Results: ITS Impressions Abdomen/Pelvis CT 09/30/24 19:00 IMPRESSION: Gallbladder hydrops without inflammatory change. Dilated common bile duct, measuring 14 mm. No obstructing stone or mass detected. Correlate with biliary labs. 3.4 cm fusiform infrarenal abdominal aortic aneurysm. Consider follow-up in 3 years. Upper Quadrant Ultrasound 10/01/24 08:43 IMPRESSION: 1. Cholelithiasis with a normal-appearing gallbladder but with mild intra and extrahepatic biliary ductal dilation which raises concern for a nonvisualized distal obstructing choledocholithiasis. Correlate with liver function tests and if clinically indicated could consider further evaluation with either MRCP or ERCP. Hepatobiliary Scan Nuclear Medicine 10/05/24 08:35 IMPRESSION: 1. No evident gallbladder activity consistent with acute cholecystitis. Cholecystostomy 10/05/24 16:57 IMPRESSION: 1. Successful ultrasound-guided cholecystostomy tube placement. 2. 35 mL bile was sent for aerobic, anaerobic, and fungal cultures. 3. The catheter will be managed by Dr. Brennan. Chest X-Ray 10/10/24 06:58 Impression: Clear lungs. Status post aortic valve replacement, with pacemaker device. Cholangiogram 10/12/24 14:45 IMPRESSION: 1. Cholelithiasis and choledocholithiasis obstructing distal choledocholithiasis with no observed contrast emptying into the duodenum. The cystic duct is patent. Consider ERCP for stone extraction and sphincterotomy to relieve the distal ductal obstruction. Labs Labs: Laboratory Results - last 24 hr 10/16/24 10/16/24 10/16/24 12:05 12:43 16:36 WBC RBC Hgb Hct MCV MCH MCHC RDW Plt Count MPV Immature Gran % (Auto) Neut % (Auto) Lymph % (Auto) [place] % (Auto) Eos % (Auto) Baso % (Auto) Lymph # (Auto) [place] # (Auto) Eos # (Auto) Baso # (Auto) Abs Immat Gran (auto) Absolute Neuts (auto) Absolute Nucleated RBC Nucleated RBC % Sodium Potassium Chloride Carbon Dioxide Anion Gap BUN Creatinine Estim Creat Clear Calc Estimated GFR Glucose POC Capillary Glucose 120 H 100 138 H Calcium Magnesium Total Bilirubin AST ALT Alkaline Phosphatase NT-Pro-B Natriuret Pep Total Protein Albumin Blood Type 10/16/24 10/17/24 10/17/24 20:43 04:50 08:09 WBC 11.5 H RBC 3.19 L Hgb 9.3 L Hct 30.3 L MCV 95.0 MCH 29.2 MCHC 30.7 L RDW 15.1 H Plt Count 613 H MPV 8.8 Immature Gran % (Auto) 2.1 H Neut % (Auto) 74.4 H Lymph % (Auto) 7.2 L [place] % (Auto) 13.2 H Eos % (Auto) 2.3 Baso % (Auto) 0.8 Lymph # (Auto) 0.83 L [place] # (Auto) 1.5 H Eos # (Auto) 0.3 Baso # (Auto) 0.1 Abs Immat Gran (auto) 0.24 H Absolute Neuts (auto) 8.6 H Absolute Nucleated RBC 0.000 Nucleated RBC % 0.0 Sodium 136 L Potassium 4.6 Chloride 92 L Carbon Dioxide 36 H Anion Gap 8 BUN 40 H Creatinine 2.64 H Estim Creat Clear Calc 21 Estimated GFR 23 L Glucose 127 H POC Capillary Glucose 166 H 110 H Calcium 8.6 Magnesium 1.7 Total Bilirubin 0.4 AST 33 ALT 16 Alkaline Phosphatase 84 NT-Pro-B Natriuret Pep 4220 H Total Protein 6.9 Albumin 3.2 L Blood Type 10/17/24 08:45 WBC RBC Hgb Hct MCV MCH MCHC RDW Plt Count MPV Immature Gran % (Auto) Neut % (Auto) Lymph % (Auto) [place] % (Auto) Eos % (Auto) Baso % (Auto) Lymph # (Auto) [place] # (Auto) Eos # (Auto) Baso # (Auto) Abs Immat Gran (auto) Absolute Neuts (auto) Absolute Nucleated RBC Nucleated RBC % Sodium Potassium Chloride Carbon Dioxide Anion Gap BUN Creatinine Estim Creat Clear Calc Estimated GFR Glucose POC Capillary Glucose Calcium Magnesium Total Bilirubin AST ALT Alkaline Phosphatase NT-Pro-B Natriuret Pep Total Protein Albumin Blood Type O Positive
[2024-10-17] MEDS: MAGNESIUM SULF 2 GM/WATER 50ML 2 GM/50 ML BAG IVPB (12:15)
--- NOTE | 2024-10-17 13:58 | PCPTNOTE ---
The patient treatment was not able to be completed on 10/17/2024 due to new found DVT in right lower extremity. Will plan to continue treatment per plan of care.
[2024-10-17 14:00] VITALS: BP 129/55; PULSE 96; RESP 20; TEMP 37.4; O2SAT 96
[2024-10-17] MEDS: cefTRIAXone 2 GM/NS 100 ML 2 GM/100 ML BAG IVPB (14:36)
--- NOTE | 2024-10-17 14:50 | P.PNNP_ITS ---
Progress Note: A&P Assessment and Plan (1) Acute kidney injury: Code(s): N17.9 - Acute kidney failure, unspecified Status: Acute Assessment and Plan: * improvement noted if not back to baseline * as noted on admission * complicated by significant azotemia/elevated BUN on admission (see #3) * s/p holding diuretics and trial of IVFs * evaluation to date noted: * admission CT of A/P with no suspicious mass, obstructing stone, or hydronephrosis * prerenal urine electrolytes (by FeUrea) * urine eosinophils negative * mild proteinuria * normal/low CPK * UA without evidence of infection * suspect multifactorial etiology: * prerenal factors * overdiuresis * infection (bacteremia + cholecystitis) * other(?) * resumed on diuretic therapy (on 10/12) * follow trend of repeat labs and UOP (2) Stage 4 chronic kidney disease: Code(s): N18.4 - Chronic kidney disease, stage 4 (severe) Status: Chronic Assessment and Plan: * slow and progressive decline noted * GFR ~ 22 to 23 in * GFR ~ 20 to 21 in 2022/2023 * GFR ~ 18 by July 2024 labs * creatinine has been running anywhere from 2.4 - 3.2mg/dl in the last 6 months * creatinine on 09/27/24 (outpatient labs) = 3.93mg/dl (GFR 15) -- but this may have related to his acute medical issues noted on admission * most likely due to diabetes and hypertension + chronic diuretic therapy (3) Azotemia: Code(s): R79.89 - Other specified abnormal findings of blood chemistry Status: Acute Assessment and Plan: * stable/resolved * noted on admission (BUN 120) * suspected related to diuretic therapy/overdiuresis * however, underlying infection (see #4) likely a contributing factor as well... 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, 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 * moderate to severe mitral valve regurgitation * circumferential echogenic mass measuring 1.4 cm x 0.8 cm attached to left atrial side of mitral valve annulus which probably calcified mass; there is an additional small calcified echogenic mass attached to left ventricular side of posterior mitral valve leaflet -- probably calcifications more likely than vegetations; consider ADOLFO if clinically indicated * mild tricuspid valve regurgitation * mild pulmonary hypertension, estimated pulmonary arterial systolic pressure is 40 mmHg * trace pulmonic regurgitation * Cardiology recommendations noted -- patient not interested in ADOLFO at this time... * repeat blood cultures (10/08) negative (5) Gallbladder hydrops: Code(s): K82.1 - Hydrops of gallbladder Status: Acute Assessment and Plan: * CT of A/P without overt acute cholecystitis * however, did have significant right upper quadrant pain on palpation with nausea and decreased oral intake * RUQ ultrasound results noted as well * LFTs normal * GI recommendations noted * Surgery following * s/p cholecystostomy tube placement (on 10/05) * noted plans for cholecystectomy tomorrow * cholangiogram (10/12) suggestive of retained stone in bile duct -- s/p ERCP (on 10/16) * continue supportive therapy (6) Anemia: Code(s): D64.9 - Anemia, unspecified Status: Acute Assessment and Plan: * due to combo of LEROY, CKD, acute illness/infection and possibly previous IVFs * dose with Epogen while hospitalized * follow trend of H/H (7) Hypertension: Code(s): I10 - Essential (primary) hypertension Status: Chronic Assessment and Plan: * reasonable control * follow trend of hemodynamics (8) Type 2 diabetes mellitus with hyperglycemia, without long-term current use of insulin: Code(s): E11.65 - Type 2 diabetes mellitus with hyperglycemia Status: Chronic Assessment and Plan: * follow accu-cheks * glycemic control per hospitalist Will continue to follow. L Subjective Date/time seen: 10/17/24 14:50 Interval history: Follow-up for acute kidney injury/acute renal failure on chronic kidney disease. Renal function/creatinine remains relatively stable with ongoing diuretic therapy and reasonable urine output; noted plans for operative intervention (cholecystectomy) per Surgery tomorrow; initiated on heparin gtt due to findings of right lower extremity DVT; no apparent distress noted. Exam 2 Narrative: General: elderly but WD/WN male in NAD Heart: normal S1 and S2; no rub Lungs: clear anteriorly Abdomen: soft, nontender, nondistended, positive bowel sounds Extremities: no cyanosis or clubbing; trace - 1+ edema Skin: warm and intact Objective Data Vital Signs Vital Signs: Vital Signs Temp Pulse Resp BP Pulse Ox O2 Del Method 10/17/24 14:00 99.3 F 96 20 129/55 L 96 10/17/24 08:35 Room Air 10/17/24 05:03 97.8 F 80 18 130/65 100 10/16/24 21:36 97.5 F L 77 16 133/57 L 99 10/16/24 21:18 Room Air 10/16/24 15:34 98.7 F 87 17 161/77 H 99 Room Air 10/16/24 15:24 86 14 168/82 H 98 Room Air Intake/Output Intake/Output: Intake & Output 10/14/24 10/15/24 10/16/24 10/17/24 23:59 23:59 23:59 23:59 Intake Total 2752 929 8630 1030 Output Total 3810 2910 4850 500 Balance -2530 -2030 -3250 530 Meds/Results Medications: Active Medications Generic Name Dose Route Start Last Admin Trade Name Freq PRN Reason Stop Dose Admin Acetaminophen 650 mg 09/30/24 19:02 10/15/24 17:13 Acetaminophen 325 Mg Tablet PO 650 mg Q4H PRN Administration Mild Pain (1-3) or Fever Albuterol 2 puff 10/03/24 15:40 10/04/24 09:06 Albuterol Sulfate (*Sp) Aerosol 1 Puff INHALATION 2 puff Q6HRT PRN Administration Shortness Of Breath Or Wheezing Clopidogrel Bisulfate 75 mg 10/01/24 09:00 10/12/24 08:42 Clopidogrel Bisulfate 75 Mg Tablet PO 75 mg DAILY VU Administration Dextrose 12.5 gm 09/30/24 20:29 Dextrose 50% 25 Gm/50 Ml Syringe IV PUSH PRN PRN Hypoglycemia Protocol Docusate Sodium 100 mg 10/01/24 09:00 10/17/24 08:32 Docusate Sodium 100 Mg Capsule PO 100 mg DAILY VU Administration Ezetimibe 10 mg 10/01/24 09:00 10/17/24 08:32 Ezetimibe 10 Mg Tablet PO 10 mg DAILY VU Administration Epoetin Gordo-epbx 10,000 units 10/16/24 09:00 10/16/24 17:01 Epoetin Gordo-Epbx 10,000 Units/Ml Vial SUB-Q 10,000 units TUTHSA@09 VU Administration Famotidine 20 mg 09/30/24 21:00 10/17/24 08:31 Famotidine 20 Mg Tablet PO 20 mg Q12HR VU Administration Finasteride 5 mg 10/01/24 09:00 10/17/24 08:31 Finasteride 5 Mg Tablet PO 5 mg DAILY VU Administration Fluticasone Propionate 2 spray 09/30/24 20:28 10/14/24 08:33 Fluticasone Propionate 0.05% Na Spr 16 Gm Btl (*Bkc) NASAL 2 spray DAILY PRN Administration allergy symptoms Furosemide 40 mg 10/09/24 09:00 10/17/24 08:32 Furosemide 40 Mg Tablet PO 40 mg BID VU Administration Glucagon 1 mg 09/30/24 20:29 Glucagon For Inj 1 Mg Vial IM PRN PRN Hypoglycemia Protocol Glucose 15 gm 09/30/24 20:29 Glucose Oral Gel 15 Gm Of Glucse In 37.5 Gm Tube PO PRN PRN Hypoglycemia Protocol Guaifenesin 600 mg 10/11/24 21:00 10/17/24 08:32 Guaifenesin 12 Hr 600 Mg Tabcr PO 10/18/24 20:59 600 mg Q12HR VU Administration Heparin Sodium (Porcine) 5,000 units 09/30/24 21:00 10/14/24 08:34 Heparin Sodium 5,000 Units/Ml Vial SUB-Q 5,000 units Q12HR VU Administration Heparin Sodium (Porcine) 4,000 units 10/17/24 13:37 Heparin Sodium 5,000 Units/Ml Vial IV PUSH PRN PRN aPTT less than 55 seconds Heparin Sodium (Porcine) 3,000 units 10/17/24 13:37 Heparin Sodium 5,000 Units/Ml Vial IV PUSH PRN PRN aPTT 55 - 70 seconds Dextrose 1,000 mls @ 100 mls/hr 09/30/24 20:29 Dextrose 5% 1,000 Ml IVPB PRN PRN Hypoglycemia Protocol Ceftriaxone Sodium 2 gm in 100 mls @ 200 mls/hr 10/08/24 14:00 10/17/24 14:36 Rocephin 2 Gm/Ns 100 Ml IVPB 200 mls/hr Q24H VU Administration Ampicillin Sodium 2 gm in 100 mls @ 200 mls/hr 10/16/24 14:00 10/17/24 14:29 Ampicillin 2 Gm/Ns 100 Ml IVPB 10/22/24 23:59 Infused Q8H VU Infusion Heparin Sodium/Dextrose 25,000 units in 250 mls @ 10 mls/hr 10/17/24 13:40 Heparin Sodium/D5w 100 Units/Ml IV CONT .Q24H VU Protocol 1,000 UNITS/HR Insulin Aspart 1 - 3 units 09/30/24 21:00 10/16/24 21:24 Insulin Aspart (*Bkc) 100 Units/Ml SUB-Q Not Given HS VU Protocol Insulin Aspart 3 - 6 units 10/01/24 08:00 10/17/24 12:24 Insulin Aspart (*Bkc) 100 Units/Ml SUB-Q Not Given TIDWM [facility] Protocol Metronidazole 500 mg 10/08/24 14:00 10/17/24 13:59 Metronidazole 500 Mg Tablet PO 500 mg Q8HR VU Administration Miscellaneous Information 0 each 10/18/24 00:01 Please Renew _.Ceftriaxone, Met Per [employer] Procedure, It Will Discontinue If Not Renewed XX 11/17/24 00:00 CLARIFY VU Morphine Sulfate 15 mg 10/07/24 09:53 10/17/24 06:39 Morphine Sulfate (*Crx) 15 Mg Tab Ir PO 15 mg Q4H PRN Administration Pain Rated 7-10 Ondansetron HCl 4 mg 09/30/24 19:02 10/12/24 11:54 Ondansetron Inj 4 Mg/2 Ml Vial IV PUSH 4 mg Q4H PRN Administration Nausea Pantoprazole Sodium 40 mg 10/07/24 09:00 10/17/24 08:32 Pantoprazole 40 Mg Tablet PO 40 mg QAM VU Administration Polyethylene Glycol 17 gm 10/10/24 13:40 10/17/24 08:37 Polyethylene Glycol 3350 17 Gm Powd.Pack PO 17 gm QAM VU Administration Saccharomyces Boulardii 250 mg 10/11/24 17:00 10/17/24 08:31 Saccharomyces Boulardii 250 Mg Capsule PO 250 mg BID VU Administration Sodium Chloride 500 mg 10/06/24 17:00 10/17/24 08:32 Sodium Chloride 500 Mg Tablet PO 500 mg BID VU Administration Verapamil HCl 120 mg 09/30/24 21:00 10/17/24 08:32 Verapamil Hcl 120 Mg Tablet Immed Release PO 120 mg Q12HR VU Administration Radiology Results: ITS Impressions Abdomen/Pelvis CT 09/30/24 19:00 IMPRESSION: Gallbladder hydrops without inflammatory change. Dilated common bile duct, measuring 14 mm. No obstructing stone or mass detected. Correlate with biliary labs. 3.4 cm fusiform infrarenal abdominal aortic aneurysm. Consider follow-up in 3 years. Upper Quadrant Ultrasound 10/01/24 08:43 IMPRESSION: 1. Cholelithiasis with a normal-appearing gallbladder but with mild intra and extrahepatic biliary ductal dilation which raises concern for a nonvisualized distal obstructing choledocholithiasis. Correlate with liver function tests and if clinically indicated could consider further evaluation with either MRCP or ERCP. Hepatobiliary Scan Nuclear Medicine 10/05/24 08:35 IMPRESSION: 1. No evident gallbladder activity consistent with acute cholecystitis. Cholecystostomy 10/05/24 16:57 IMPRESSION: 1. Successful ultrasound-guided cholecystostomy tube placement. 2. 35 mL bile was sent for aerobic, anaerobic, and fungal cultures. 3. The catheter will be managed by Dr. Brennan. Cholangiogram 10/12/24 14:45 IMPRESSION: 1. Cholelithiasis and choledocholithiasis obstructing distal choledocholithiasis with no observed contrast emptying into the duodenum. The cystic duct is patent. Consider ERCP for stone extraction and sphincterotomy to relieve the distal ductal obstruction. Chest X-Ray 10/17/24 11:39 IMPRESSION: No significant change from previous examination. Venous Doppler Study 10/17/24 13:00 IMPRESSION: 1. Right [id number] deep venous thrombosis in one of the paired right peroneal veins. Findings were discussed with Abeba crum, the nurse caring for the patient, at 1:07 PM. 2. No deep venous thrombosis in the left lower limb. 3. Small right [place]'s cyst. Labs Labs: Laboratory Tests 10/17/24 14:35 10/17/24 04:50 WBC 11.5 H Hgb 9.3 L Hct 30.3 L Plt Count 613 H Calcium 8.6 Magnesium 1.7 Total Bilirubin 0.4 AST 33 ALT 16 Alkaline Phosphatase 84 NT-Pro-B Natriuret Pep 4220 H Total Protein 6.9 Albumin 3.2 L
[2024-10-17 14:52] LABS: Hematocrit 28.1 % (42.0-52.0); Hemoglobin 8.8 g/dL (14.0-18.0); Immature Granulocyte Percent A 1.6 % (0-0.5); Lymphocytes Absolute Auto 0.94 K/mm3 (0.9-3.2); Mean Corpuscular HGB Conc 31.3 g/dl (32-36); Mean Corpuscular Hemoglobin 29.6 pg (26-34); Mean Corpuscular Volume 94.6 fl (80-100); Nucleated Red Blood Cells Absolute Auto 0.000 K/mm3 (0.0-0.012); Nucleated Red Blood Cells Perc 0.0 % (0.0-0.2); Platelet Count Result 621 k/mm3 (150-375); Red Blood Count 2.97 M/mm3 (4.6-6.20); White Blood Count 12.6 K/mm3 (4.5-10.0)
[2024-10-17 15:04] LABS: INR 1.2; Prothrombin Time 15.4 Seconds (11.1-14.7)
[2024-10-17 15:05] LABS: Partial Thromboplastin Time 35.0 Seconds (22.3-36.8)
[2024-10-17 15:23] LABS: Lipase < 10 U/L (23-300)
[2024-10-17] MEDS: HEPARIN SOD/D5W 100 UNITS/ML 25,000 UNITS/250 ML BAG 10 UNITS IV CONT (15:26)
[2024-10-17 21:28] VITALS: PULSE 79; RESP 20; O2SAT 95
[2024-10-17 21:38] LABS: Partial Thromboplastin Time 63.5 Seconds (22.3-36.8)
[2024-10-17 22:00] VITALS: BP 135/50; PULSE 80; RESP 18; TEMP 37.2; O2SAT 96
[2024-10-18] VITALS (14 sets, daily range): BP systolic 115–152; BP diastolic 49–64; PULSE 74–87; RESP 14–20; TEMP 36.2–37.9; O2SAT 16–100
[2024-10-18 05:44] LABS: Hematocrit 29.7 % (42.0-52.0); Hemoglobin 9.1 g/dL (14.0-18.0); Immature Granulocyte Percent A 2.2 % (0-0.5); Lymphocytes Absolute Auto 1.12 K/mm3 (0.9-3.2); Mean Corpuscular HGB Conc 30.6 g/dl (32-36); Mean Corpuscular Hemoglobin 29.0 pg (26-34); Mean Corpuscular Volume 94.6 fl (80-100); Nucleated Red Blood Cells Absolute Auto 0.020 K/mm3 (0.0-0.012); Nucleated Red Blood Cells Perc 0.2 % (0.0-0.2); Platelet Count Result 654 k/mm3 (150-375); Red Blood Count 3.14 M/mm3 (4.6-6.20); White Blood Count 11.9 K/mm3 (4.5-10.0)
[2024-10-18] MEDS: AMPICILLIN 2 GM/NS 100 ML 2 GM/100 ML BAG IVPB ×3 (05:47→22:01)
[2024-10-18 05:55] LABS: Alanine Aminotransferase 15 U/L (6-50); Albumin Level 3.1 g/dL (3.5-5.1); Alkaline Phosphatase 95 U/L (38-126); Anion Gap 9 mmol/L (4-12); Aspartate Amino Transferase 27 U/L (17-59); Bilirubin,Total 0.4 mg/dL (0.2-1.3); Blood Urea Nitrogen 36 mg/dL (9-20); Calcium 8.6 mg/dL (8.4-10.2); Carbon Dioxide 34 mmol/L (22-30); Chloride 91 mmol/L (98-107); Estimated CRCL calculation 20 ml/min; Estimated Glomerular Filt Rate 22; Glucose 124 mg/dL (65-110); Magnesium 2.0 mg/dL (1.6-2.3); Potassium 4.0 mmol/L (3.4-5.0); Sodium 134 mmol/L (137-145); Total Protein 6.8 g/dL (6.3-8.2)
[2024-10-18 05:56] LABS: INR 1.3; Prothrombin Time 15.9 Seconds (11.1-14.7)
[2024-10-18 05:58] LABS: Partial Thromboplastin Time 106.4 Seconds (22.3-36.8)
[2024-10-18] MEDS: VERAPAMIL HCL 120 MG TABLET IMMED RELEASE PO ×2 (08:42→20:39)
[2024-10-18] MEDS: MORPHINE SULFATE (*CRX) 15 MG TAB IR PO (08:42)
[2024-10-18] MEDS: EPOETIN ALFA-EPBX 10,000 UNITS/ML VIAL 10000 UNITS SUB-Q (08:42)
--- NOTE | 2024-10-18 10:52 | PM.IMPN ---
Progress Note: A&P Assessment and Plan (1) Chest pain: Qualifiers: Chest pain type: unspecified Qualified Code(s): R07.9 - Chest pain, unspecified Code(s): R07.9 - Chest pain, unspecified Status: Acute Assessment and Plan: Prior chest pain resolved. No shortness of breath. Thought to be more consistent with GI cause with reported indigestion and significant right upper quadrant pain. Cardiology has been following -Troponins 0.053, 0.080, 0.090 -Holding Antihypertensives and Plavix. -->HOLD Plavix since 10/05 for lap torrie per surg. Initially deferred 05/27 bacteremia --Started heparin drip for acute DVT. Hold at 6am for OR (2) Acute kidney injury superimposed on CKD: Code(s): N17.9 - Acute kidney failure, unspecified; N18.9 - Chronic kidney disease, unspecified Status: Acute Assessment and Plan: Patient has chronic kidney disease stage 4 with acute kidney injury. Most likely prerenal due to intervascular volume depletion. Initially held Lasix and rehydrated, fluids at 75ml/hr. Nephrology was consulted from the ER. 10/02- cr/bun 2.96/100, peaked 10/05: Cr/BUN: 3.54/94. Has been fluctuating, but stable at 40/2.64 on furosemide side 10/09. 09/30 UA trace protein. 10/01 protein/creat ratio 0.36 - Continue flomax --continue furosemide 20mg daily --Nephrology following, appreciate recommendations (3) Gallbladder hydrops: Code(s): K82.1 - Hydrops of gallbladder Status: Inactive Assessment and Plan: Admitted for evaluation of abdominal and chest pain, associated with nausea. Surgery and GI consulted. Cleared by cardiology preop and now s/p OR 10/[address] Brennan. Intraop bleeding s/p 1 unit of PRBC. IMAGING 09/30 CT did not suggest overt acute cholecystitis but patient does have significant kit right upper quadrant pain on palpation and worsening of his nausea with palpation of right upper quadrant. 10/01 RUQ US: Cholelithiasis with a normal-appearing gallbladder but with mild intra and extrahepatic biliary ductal dilation which raises concern for a nonvisualized distal obstructing choledocholithiasis. Correlate with liver function tests and if clinically indicated could consider further evaluation with either MRCP or ERCP. 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 10/12: Cholangiogram showed: Cholelithiasis and choledocholithiasis obstructing distal choledocholithiasis with no observed contrast emptying into the duodenum. The cystic duct is patent. Consider ERCP for stone extraction and sphincterotomy to relieve the distal ductal obstruction. 10/16 ERCP showed: Ampulla appeared normal with small papillary orifice. Selective, deep bile duct cannulation achieved Pappillatome and a 0.035 inch wire. There were many filling defects in the distal CBD consistent with stones. A sphincterectomy was performed with a therapeutic 3.5 Fr papillotome device in the bile duct with a 8 mm cut. A stone extraction was performed with a 9-12 mm balloon catheter and the assistance of a 0.035 inch short-wire access for complete clearance of approximately 10 unfragmented stones. One more passage of the balloon was used to wash the common bile duct. The balloon was extracted through the papillotomy orifice insufflated at 9 mm, no stones of debris, rendering the common bile duct cleared. PLAN --s/p OR for lap torrie. Antibiotics for bacteremia as noted: Ampicillin, Ceftriaxone, and Metronidazole --Resumed diet --Follow CBC, CMP. Type and screen next 10/20 --Transfuse for hgb <7, s/p 1 unite 10/18 --Heparin drip off post op. Resume when ok with surgery --s/p OR 10/18 --Plavix has been held since 10/12 --HIDA scan today to evaluate bleeding - (4) Type 2 diabetes mellitus with hyperglycemia, without long-term current use of insulin: Code(s): E11.65 - Type 2 diabetes mellitus with hyperglycemia Status: Chronic Assessment and Plan: Holding Actos -Moderate dose sliding scale insulin with Accu-Cheks a.c. HS and hypoglycemia protocol. -Glucose has been stable during stay (5) Elevated brain natriuretic peptide (BNP) level: Code(s): R79.89 - Other specified abnormal findings of blood chemistry Status: Acute Assessment and Plan: LABS: 10/11: BNP 9,700. Lasix 40 mg ivp x 1 given. Trending down with furosemide 40mg BID and creatinine improving. 6/21 Echocardiogram showed: Summary 1. Definity contrast administered improved wall motion interpretation. 2. Left ventricular chamber dimension is normal. 3. Left ventricular systolic function is normal, estimated at 60-65. 4. There is moderate concentric increased left ventricular wall thickness. 5. The left ventricular diastolic function is grade I diastolic dysfunction. 6. E/e' 15 is elevated. 7. Left atrial chamber dimension is mildly enlarged. 8. 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 Consider AODLFO if clinically indicated. 9. There is moderate to severe mitral valve regurgitation. 10. Circumferential echogenic mass measuring 1.4 cm x 0.8 cm attached to left atrial side of mitral valve annulus which probably calcified mass. There is an additional small calcified echogenic mass attached to left ventricular side of posterior mitral valve leaflet. Probably calcifications more likely than vegetations. Consider ADOLFO if clinically indicated. 11. There is mild tricuspid valve regurgitation. 12. Mild pulmonary hypertension, estimated pulmonary arterial systolic pressure is 40 mmHg. 13. There is trace pulmonic regurgitation. PLAN Cardiology consulted, planning ADOLFO outpatient with subway car repairer Jayant randhawa for OR, resumed (6) Abdominal aortic aneurysm (AAA) 3.0 cm to 5.5 cm in diameter in male: Code(s): I71.40 - Abdominal aortic aneurysm, without rupture, unspecified Status: Acute Assessment and Plan: Likely chronic will defer follow-up to patient's primary care provider for serial imaging (7) Bacteremia: Code(s): R78.81 - Bacteremia Status: Acute Assessment and Plan: LABS 10/04 Blood culutre 1/2 enterococcus faecalis 10/05 Blood cultures 2/2 enterococcus faecalis 10/05 Fungal cx--NGTD 10/05 Gallbladder culture enteroccus species 10/08 Blood cultures 2/2 No growth Antbiotics Treated with empiric Vanc and Ceftriaxone, changed to Ampicillin and Gentamycin 10/07 --Continue Ampicillin, Ceftiraxone, and Metronidazole (8) Hyponatremia: Code(s): E87.1 - Hypo-osmolality and hyponatremia Status: Acute Assessment and Plan: Levels have been low since admission despite IVF NS. 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 Plavix on hold, last dose 10/12. --Holding plavix and heparin post op until ok with surgery (10) Lower extremity edema: Code(s): R60.0 - Localized edema Status: Acute Assessment and Plan: Acute peroneal DVT on dopplers today --Started a heparin drip without a bolus (11) Acute pain: Code(s): R52 - Pain, unspecified Status: Acute Assessment and Plan: Acute on chronic pain. High risk medication use with IV opiates for pain --Continue home morphine 15 mg PO --Tylenol TID prn --Morphine 3-5mg IV prn Schedule oxycodone 5mg TID x3 doses today & reassess. May switch from morphine to dilaudid for better pain control Time Spent With Patient Time: 35 minutes Subjective Date/time seen: 10/18/24 10:52 Interval history: s/p cholecystecomy yesterday Having pain post op, moderately controlled but hasn't been taking pain medications as frequently as he can Heparin drip on hold. WBC up to 14.3 Review of Systems Review of Systems: 12 systems were reviewed with pertinent positives and negatives per HPI. Except as documented in the HPI, all other systems were reviewed and are negative. All systems reviewed & are unremarkable except as noted in HPI and below Exam Narrative: General - Awake and alert. No acute distress Eyes - PERRLA, EOM intact ENT - No thrush, No erythema Neck - No noticeable or palpable swelling Lymph Nodes - No lymphadenopathy Cardiovascular - RRR, +murmur, no JVD Lungs: Rare crackles bilateral bases, No wheezing, use of accessory muscles Skin - Skin warm and dry, no wounds or rashes Abdomen - Normal bowel sounds, abdomen soft and nontender to light palpation. Extremities - Bilateral lower extremity edema, R>L, no cyanosis or clubbing Musculoskeletal - 5/5 strength, normal range of motion, no swollen or erythematous joints. Neurological ? Alert and oriented x 3, CN 2-12 grossly intact. Psych: Normal mood and affect Objective Data Vital Signs Vital Signs: Vital Signs - 24 hr 10/17/24 14:00 10/17/24 20:22 10/17/24 21:28 Temperature 99.3 F Pulse Rate 96 79 Respiratory Rate 20 20 Blood Pressure 129/55 L Pulse Oximetry 96 95 Oxygen Delivery Room Air Room Air Fraction of Inspired Oxygen 21 10/17/24 22:00 10/18/24 05:37 Temperature 99 F 98.6 F Pulse Rate 80 77 Respiratory Rate 18 16 Blood Pressure 135/50 L 133/57 L Pulse Oximetry 96 97 Oxygen Delivery Fraction of Inspired Oxygen Intake/Output Intake/Output: Intake & Output 10/15/24 10/16/24 10/17/24 10/18/24 23:59 23:59 23:59 23:59 Intake Total 880 1600 2806.5 493.6 Output Total 2910 4850 1500 400 Balance -2030 -3250 1306.5 93.6 Meds/Results Medications: Active Medications Generic Name Dose Route Start Last Admin Trade Name Freq PRN Reason Stop Dose Admin Acetaminophen 650 mg 09/30/24 19:02 10/15/24 17:13 Acetaminophen 325 Mg Tablet PO 650 mg Q4H PRN Administration Mild Pain (1-3) or Fever Albuterol 2 puff 10/03/24 15:40 10/04/24 09:06 Albuterol Sulfate (*Sp) Aerosol 1 Puff INHALATION 2 puff Q6HRT PRN Administration Shortness Of Breath Or Wheezing Clopidogrel Bisulfate 75 mg 10/01/24 09:00 10/12/24 08:42 Clopidogrel Bisulfate 75 Mg Tablet PO 75 mg DAILY VU Administration Dextrose 12.5 gm 09/30/24 20:29 Dextrose 50% 25 Gm/50 Ml Syringe IV PUSH PRN PRN Hypoglycemia Protocol Docusate Sodium 100 mg 10/01/24 09:00 10/17/24 08:32 Docusate Sodium 100 Mg Capsule PO 100 mg DAILY VU Administration Ezetimibe 10 mg 10/01/24 09:00 10/17/24 08:32 Ezetimibe 10 Mg Tablet PO 10 mg DAILY VU Administration Epoetin Gordo-epbx 10,000 units 10/16/24 09:00 10/18/24 08:42 Epoetin Gordo-Epbx 10,000 Units/Ml Vial SUB-Q 10,000 units TUTHSA@09 VU Administration Famotidine 20 mg 09/30/24 21:00 10/17/24 20:39 Famotidine 20 Mg Tablet PO 20 mg Q12HR VU Administration Finasteride 5 mg 10/01/24 09:00 10/17/24 08:31 Finasteride 5 Mg Tablet PO 5 mg DAILY VU Administration Fluticasone Propionate 2 spray 09/30/24 20:28 10/14/24 08:33 Fluticasone Propionate 0.05% Na Spr 16 Gm Btl (*Bkc) NASAL 2 spray DAILY PRN Administration allergy symptoms Furosemide 40 mg 10/09/24 09:00 10/17/24 17:27 Furosemide 40 Mg Tablet PO 40 mg BID VU Administration Glucagon 1 mg 09/30/24 20:29 Glucagon For Inj 1 Mg Vial IM PRN PRN Hypoglycemia Protocol Glucose 15 gm 09/30/24 20:29 Glucose Oral Gel 15 Gm Of Glucse In 37.5 Gm Tube PO PRN PRN Hypoglycemia Protocol Guaifenesin 600 mg 10/11/24 21:00 10/17/24 20:39 Guaifenesin 12 Hr 600 Mg Tabcr PO 10/18/24 20:59 600 mg Q12HR VU Administration Heparin Sodium (Porcine) 5,000 units 09/30/24 21:00 10/14/24 08:34 Heparin Sodium 5,000 Units/Ml Vial SUB-Q 5,000 units Q12HR VU Administration Heparin Sodium (Porcine) 4,000 units 10/17/24 13:37 Heparin Sodium 5,000 Units/Ml Vial IV PUSH PRN PRN aPTT less than 55 seconds Heparin Sodium (Porcine) 3,000 units 10/17/24 13:37 10/17/24 22:02 Heparin Sodium 5,000 Units/Ml Vial IV PUSH 3,000 units PRN PRN Administration aPTT 55 - 70 seconds Dextrose 1,000 mls @ 100 mls/hr 09/30/24 20:29 Dextrose 5% 1,000 Ml IVPB PRN PRN Hypoglycemia Protocol Ceftriaxone Sodium 2 gm in 100 mls @ 200 mls/hr 10/08/24 14:00 10/17/24 15:06 Rocephin 2 Gm/Ns 100 Ml IVPB Infused Q24H VU Infusion Ampicillin Sodium 2 gm in 100 mls @ 200 mls/hr 10/16/24 14:00 10/18/24 06:17 Ampicillin 2 Gm/Ns 100 Ml IVPB 10/22/24 23:59 Infused Q8H VU Infusion Heparin Sodium/Dextrose 25,000 units in 250 mls @ 12 mls/hr 10/17/24 13:40 10/18/24 05:53 Heparin Sodium/D5w 100 Units/Ml IV CONT 1,200 units/hr .[id number] VU 12 mls/hr Titration Protocol 1,200 UNITS/HR Insulin Aspart 1 - 3 units 09/30/24 21:00 10/17/24 20:38 Insulin Aspart (*Bkc) 100 Units/Ml SUB-Q Not Given HS VU Protocol Insulin Aspart 3 - 6 units 10/01/24 08:00 10/18/24 08:32 Insulin Aspart (*Bkc) 100 Units/Ml SUB-Q Not Given TIDWM VU Protocol Metronidazole 500 mg 10/08/24 14:00 10/18/24 05:47 Metronidazole 500 Mg Tablet PO 500 mg Q8HR VU Administration Miscellaneous Information 0 each 10/18/24 00:01 Please Renew _.Ceftriaxone, Met Per [employer] Procedure, It Will Discontinue If Not Renewed XX 11/17/24 00:00 CLARIFY VU Morphine Sulfate 15 mg 10/07/24 09:53 10/18/24 08:42 Morphine Sulfate (*Crx) 15 Mg Tab Ir PO 15 mg Q4H PRN Administration Pain Rated 7-10 Ondansetron HCl 4 mg 09/30/24 19:02 10/12/24 11:54 Ondansetron Inj 4 Mg/2 Ml Vial IV PUSH 4 mg Q4H PRN Administration Nausea Pantoprazole Sodium 40 mg 10/07/24 09:00 10/17/24 08:32 Pantoprazole 40 Mg Tablet PO 40 mg QAM VU Administration Polyethylene Glycol 17 gm 10/10/24 13:40 10/17/24 08:37 Polyethylene Glycol 3350 17 Gm Powd.Pack PO 17 gm QAM VU Administration Saccharomyces Boulardii 250 mg 10/11/24 17:00 10/17/24 17:27 Saccharomyces Boulardii 250 Mg Capsule PO 250 mg BID VU Administration Sodium Chloride 500 mg 10/06/24 17:00 10/17/24 17:27 Sodium Chloride 500 Mg Tablet PO 500 mg BID VU Administration Verapamil HCl 120 mg 09/30/24 21:00 10/18/24 08:42 Verapamil Hcl 120 Mg Tablet Immed Release PO 120 mg Q12HR VU Administration Radiology Results: ITS Impressions Abdomen/Pelvis CT 09/30/24 19:00 IMPRESSION: Gallbladder hydrops without inflammatory change. Dilated common bile duct, measuring 14 mm. No obstructing stone or mass detected. Correlate with biliary labs. 3.4 cm fusiform infrarenal abdominal aortic aneurysm. Consider follow-up in 3 years. Upper Quadrant Ultrasound 10/01/24 08:43 IMPRESSION: 1. Cholelithiasis with a normal-appearing gallbladder but with mild intra and extrahepatic biliary ductal dilation which raises concern for a nonvisualized distal obstructing choledocholithiasis. Correlate with liver function tests and if clinically indicated could consider further evaluation with either MRCP or ERCP. Hepatobiliary Scan Nuclear Medicine 10/05/24 08:35 IMPRESSION: 1. No evident gallbladder activity consistent with acute cholecystitis. Cholecystostomy 10/05/24 16:57 IMPRESSION: 1. Successful ultrasound-guided cholecystostomy tube placement. 2. 35 mL bile was sent for aerobic, anaerobic, and fungal cultures. 3. The catheter will be managed by Dr. Brennan. Cholangiogram 10/12/24 14:45 IMPRESSION: 1. Cholelithiasis and choledocholithiasis obstructing distal choledocholithiasis with no observed contrast emptying into the duodenum. The cystic duct is patent. Consider ERCP for stone extraction and sphincterotomy to relieve the distal ductal obstruction. Chest X-Ray 10/17/24 11:39 IMPRESSION: No significant change from previous examination. Venous Doppler Study 10/17/24 13:00 IMPRESSION: 1. Right [id number] deep venous thrombosis in one of the paired right peroneal veins. Findings were discussed with Abeba crum, the nurse caring for the patient, at 1:07 PM. 2. No deep venous thrombosis in the left lower limb. 3. Small right [place]'s cyst. Labs Labs: Laboratory Results - last 24 hr 10/17/24 10/17/24 10/17/24 04:46 12:09 14:35 WBC 12.6 H RBC 2.97 L Hgb 8.8 L Hct 28.1 L MCV 94.6 MCH 29.6 MCHC 31.3 L RDW 15.1 H Plt Count 621 H MPV 8.6 Immature Gran % (Auto) 1.6 H Neut % (Auto) 76.2 H Lymph % (Auto) 7.5 L Lyman % (Auto) 12.3 H Eos % (Auto) 1.7 Baso % (Auto) 0.7 Lymph # (Auto) 0.94 Lyman # (Auto) 1.6 H Eos # (Auto) 0.2 Baso # (Auto) 0.1 Abs Immat Gran (auto) 0.20 H Absolute Neuts (auto) 9.6 H Absolute Nucleated RBC 0.000 Nucleated RBC % 0.0 PT 15.4 H INR 1.2 APTT 35.0 Sodium Potassium Chloride Carbon Dioxide Anion Gap BUN Creatinine Estim Creat Clear Calc Estimated GFR Glucose POC Capillary Glucose 130 H Calcium Phosphorus Magnesium Total Bilirubin AST ALT Alkaline Phosphatase Total Protein Albumin Lipase < 10 L 10/17/24 10/17/24 10/17/24 16:56 20:37 21:20 WBC RBC Hgb Hct MCV MCH MCHC RDW Plt Count MPV Immature Gran % (Auto) Neut % (Auto) Lymph % (Auto) Lyman % (Auto) Eos % (Auto) Baso % (Auto) Lymph # (Auto) Lyman # (Auto) Eos # (Auto) Baso # (Auto) Abs Immat Gran (auto) Absolute Neuts (auto) Absolute Nucleated RBC Nucleated RBC % PT INR APTT 63.5 H Sodium Potassium Chloride Carbon Dioxide Anion Gap BUN Creatinine Estim Creat Clear Calc Estimated GFR Glucose POC Capillary Glucose 162 H 161 H Calcium Phosphorus Magnesium Total Bilirubin AST ALT Alkaline Phosphatase Total Protein Albumin Lipase 10/18/24 10/18/24 04:16 08:04 WBC 11.9 H RBC 3.14 L Hgb 9.1 L Hct 29.7 L MCV 94.6 MCH 29.0 MCHC 30.6 L RDW 15.3 H Plt Count 654 H MPV 8.9 Immature Gran % (Auto) 2.2 H Neut % (Auto) 72.0 Lymph % (Auto) 9.4 L Lyman % (Auto) 12.7 H Eos % (Auto) 2.6 Baso % (Auto) 1.1 Lymph # (Auto) 1.12 Lyman # (Auto) 1.5 H Eos # (Auto) 0.3 Baso # (Auto) 0.1 Abs Immat Gran (auto) 0.26 H Absolute Neuts (auto) 8.5 H Absolute Nucleated RBC 0.020 H Nucleated RBC % 0.2 PT 15.9 H INR 1.3 APTT 106.4 H Sodium 134 L Potassium 4.0 Chloride 91 L Carbon Dioxide 34 H Anion Gap 9 BUN 36 H Creatinine 2.75 H Estim Creat Clear Calc 20 Estimated GFR 22 L Glucose 124 H POC Capillary Glucose 124 H Calcium 8.6 Phosphorus 3.0 Magnesium 2.0 Total Bilirubin 0.4 AST 27 ALT 15 Alkaline Phosphatase 95 Total Protein 6.8 Albumin 3.1 L Lipase Quality VTE Prophylaxis VTE prophylaxis: mechanical ordered Hospitalist MIPS Advance Care Plan I have confirmed that the patient's Advanced Care Plan is present, code status is documented, or surrogate decision maker is listed in patient medical record.: Yes Medication Reconciliation I have utilized all available resources to obtain, update and review the patients current medications (includes all prescriptions, OTC, herbals, cannabis, and nutritional supplements).: Yes
--- NOTE | 2024-10-18 11:53 | WPDHPUPDATE1 ---
History and Physical Update Update Date/Time: 10/18/24 11:53 History and Physical has been reviewed, including an updated exam of the patient. There are NO changes in the patient's condition. Risks, benefits, and alternatives have been discussed and questions answered. Patient agrees to proceed with procedure.
--- NOTE | 2024-10-18 13:33 | PCOTNOTE ---
Attempted to see pt. for occupational therapy re-evaluation. Per nursing, pt. is scheduled for Laparoscopic Cholecystectomy in an hour and is awaiting transport to procedure. Following
--- NOTE | 2024-10-18 13:55 | P.PNAN_ITS ---
Anes - Initial Pre Proc Eval Procedure: Operation Date: 10/18/24 14:30 Proposed Procedures p Laparoscopic Cholecystectomy - Rosendo Brennan MD Date/Time: 10/18/24 13:55 Surgeon: Mika Pre Op Diagnosis: Chest pain, Acute on chronic renal failure, Uremia Patient Data Age: 88 Gender: M Height: 1.73 m Weight: 98 kg Last Vital Signs Temp 37.5 C 10/18/24 13:49 Pulse 85 10/18/24 13:49 Resp 18 10/18/24 13:49 BP 142/58 H 10/18/24 13:49 Pulse Ox 94 10/18/24 13:49 O2 Del Method Room Air 10/18/24 08:40 O2 Flow Rate 8 10/16/24 14:34 FiO2 21 10/17/24 21:28 Allergies Allergy/AdvReac Type Severity Reaction Status Date / Time atorvastatin Allergy Unknown myalgia Verified 10/18/24 14:17 rosuvastatin Allergy Unknown myalgia Verified 10/18/24 14:17 Home Medications ?Medication ?Instructions ?Recorded ?Confirmed ?Type furosemide 40 mg tablet See Rx Instructions .Route 08/02/24 10/07/24 Rx .COMPLEX #180 tabs doxazosin 4 mg tablet (Cardura) 4 mg PO QHS #30 tabs 08/08/24 08/08/24 Rx clopidogrel 75 mg tablet (Plavix) 75 mg PO DAILY 09/30/24 09/30/24 History docusate sodium 100 mg capsule 100 mg PO DAILY 09/30/24 09/30/24 History (Colace) ezetimibe 10 mg tablet (Zetia) 10 mg PO DAILY 09/30/24 09/30/24 History famotidine 20 mg tablet (Acid 20 mg PO BID 09/30/24 09/30/24 History Controller) finasteride 5 mg tablet 5 mg PO DAILY 09/30/24 09/30/24 History fluticasone propionate 50 2 spray intranasal DAILY PRN 09/30/24 09/30/24 History mcg/actuation nasal allergy symptoms spray,suspension (Flonase Allergy Relief) metolazone 5 mg tablet 5 mg PO DAILY 09/30/24 09/30/24 History morphine 15 mg immediate release 15 mg PO Q8H PRN pain 09/30/24 09/30/24 History tablet pioglitazone 15 mg tablet (Actos) 15 mg PO DAILY 09/30/24 09/30/24 History verapamil 120 mg tablet 120 mg PO DAILY 09/30/24 09/30/24 History Laboratory Tests 10/17/24 10/17/24 10/17/24 04:46 14:35 16:56 WBC 12.6 H K/mm3 (4.5-10.0) RBC 2.97 L M/mm3 (4.6-6.20) Hgb 8.8 L g/dL (14.0-18.0) Hct 28.1 L % (42.0-52.0) MCV 94.6 fl (80-100) MCH 29.6 pg (26-34) MCHC 31.3 L g/dl (32-36) RDW 15.1 H % (11.5-14.5) Plt Count 621 H k/mm3 (150-375) MPV 8.6 fl (7.4-10.4) Immature Gran % (Auto) 1.6 H % (0-0.5) Neut % (Auto) 76.2 H % (45.5-73.1) Lymph % (Auto) 7.5 L % (18.3-44.2) [place] % (Auto) 12.3 H % (2.6-8.5) Eos % (Auto) 1.7 % (0-4.4) Baso % (Auto) 0.7 % (0.2-1.2) Lymph # (Auto) 0.94 K/mm3 (0.9-3.2) [place] # (Auto) 1.6 H K/mm3 (0.1-0.6) Eos # (Auto) 0.2 K/mm3 (0-0.3) Baso # (Auto) 0.1 K/mm3 (0.0-0.1) Abs Immat Gran (auto) 0.20 H K/mm3 (0.00-0.031) Absolute Neuts (auto) 9.6 H K/mm3 (1.3-6.7) Absolute Nucleated RBC 0.000 K/mm3 (0.0-0.012) Nucleated RBC % 0.0 % (0.0-0.2) PT 15.4 H Seconds (11.1-14.7) INR 1.2 APTT 35.0 Seconds (22.3-36.8) Sodium Potassium Chloride Carbon Dioxide Anion Gap BUN Creatinine Estim Creat Clear Calc Estimated GFR Glucose POC Capillary Glucose 162 H mg/dl (65-105) Calcium Phosphorus Magnesium Total Bilirubin AST ALT Alkaline Phosphatase Total Protein Albumin Lipase < 10 L U/L (23-300) 10/17/24 10/17/24 10/18/24 20:37 21:20 04:16 WBC 11.9 H K/mm3 (4.5-10.0) RBC 3.14 L M/mm3 (4.6-6.20) Hgb 9.1 L g/dL (14.0-18.0) Hct 29.7 L % (42.0-52.0) MCV 94.6 fl (80-100) MCH 29.0 pg (26-34) MCHC 30.6 L g/dl (32-36) RDW 15.3 H % (11.5-14.5) Plt Count 654 H k/mm3 (150-375) MPV 8.9 fl (7.4-10.4) Immature Gran % (Auto) 2.2 H % (0-0.5) Neut % (Auto) 72.0 % (45.5-73.1) Lymph % (Auto) 9.4 L % (18.3-44.2) [place] % (Auto) 12.7 H % (2.6-8.5) Eos % (Auto) 2.6 % (0-4.4) Baso % (Auto) 1.1 % (0.2-1.2) Lymph # (Auto) 1.12 K/mm3 (0.9-3.2) [place] # (Auto) 1.5 H K/mm3 (0.1-0.6) Eos # (Auto) 0.3 K/mm3 (0-0.3) Baso # (Auto) 0.1 K/mm3 (0.0-0.1) Abs Immat Gran (auto) 0.26 H K/mm3 (0.00-0.031) Absolute Neuts (auto) 8.5 H K/mm3 (1.3-6.7) Absolute Nucleated RBC 0.020 H K/mm3 (0.0-0.012) Nucleated RBC % 0.2 % (0.0-0.2) PT 15.9 H Seconds (11.1-14.7) INR 1.3 APTT 63.5 H Seconds 106.4 H Seconds (22.3-36.8) (22.3-36.8) Sodium 134 L mmol/L (137-145) Potassium 4.0 mmol/L (3.4-5.0) Chloride 91 L mmol/L (98-107) Carbon Dioxide 34 H mmol/L (22-30) Anion Gap 9 mmol/L (4-12) BUN 36 H mg/dL (9-20) Creatinine 2.75 H mg/dL (0.7-1.3) Estim Creat Clear Calc 20 ml/min Estimated GFR 22 L (59 - ) Glucose 124 H mg/dL (65-110) POC Capillary Glucose 161 H mg/dl (65-105) Calcium 8.6 mg/dL (8.4-10.2) Phosphorus 3.0 mg/dL (2.5-4.5) Magnesium 2.0 mg/dL (1.6-2.3) Total Bilirubin 0.4 mg/dL (0.2-1.3) AST 27 U/L (17-59) ALT 15 U/L (6-50) Alkaline Phosphatase 95 U/L (38-126) Total Protein 6.8 g/dL (6.3-8.2) Albumin 3.1 L g/dL (3.5-5.1) Lipase 10/18/24 10/18/24 08:04 12:10 WBC RBC Hgb Hct MCV MCH MCHC RDW Plt Count MPV Immature Gran % (Auto) Neut % (Auto) Lymph % (Auto) [place] % (Auto) Eos % (Auto) Baso % (Auto) Lymph # (Auto) [place] # (Auto) Eos # (Auto) Baso # (Auto) Abs Immat Gran (auto) Absolute Neuts (auto) Absolute Nucleated RBC Nucleated RBC % PT INR APTT Sodium Potassium Chloride Carbon Dioxide Anion Gap BUN Creatinine Estim Creat Clear Calc Estimated GFR Glucose POC Capillary Glucose 124 H mg/dl 112 H mg/dl (65-105) (65-105) Calcium Phosphorus Magnesium Total Bilirubin AST ALT Alkaline Phosphatase Total Protein Albumin Lipase Patient hx anesthesia problems: none Family hx anesthesia problems: none Results Review: All pre-operative results and documents have been reviewed as part of the pre- operative evaluation. [facility] Past Medical History Medical History (Updated 10/18/24 @ 14:20 by Jose Francisco Baker DO) AAA (abdominal aortic aneurysm) 3.6 cm Choledocholithiasis with acute cholecystitis Cholangitis Elevated LFTs Chronic pain 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 URI (upper respiratory infection) Preoperative clearance History of colon polyps Dupuytren's contracture of right hand Pre-operative clearance Trigger finger, right middle finger Iron deficiency anemia Low back pain radiating to left leg Type II diabetes mellitus with renal manifestations Essential hypertension, benign Mixed hyperlipidemia Bilateral inguinal hernia Small fat containing bilateral inguinal hernias noted on CT 09/30/2024 Hepatic steatosis Chronic pain GERD (gastroesophageal reflux disease) Dyslipidemia BPH (benign prostatic hyperplasia) Type 2 diabetes mellitus Hypertension Hyperlipidemia Chronic kidney disease Heart failure 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 moderate mitral valve regurgitation Surgical History Surgical History History of repair of right rotator cuff (~07/05/14) Subacromial Decompression; Limited Debridement Status post cataract extraction of both eyes with insertion of intraocular lens 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 He has 3 children. He is a retired [employer]. He he is a lifelong nonsmoker and does not drink alcohol or use illicit substances. He ambulates with a walker. Code status: Full code (he states he would not want long-term intubation or feeding tube) Surrogate decision maker: Nallely () Smoking status: Never smoker Second hand tobacco smoke exposure: No Alcohol intake: never Substance use: never Do You Feel Safe in your Home?: Yes Lack of Transportation: YES Lack of Food: Never True Current Housing: I Have Housing Concerned About Future Housing: No Difficulty Paying Gas/Electric Bills: No Difficulty Paying for Meds: No Currently Unemployed: No Education: High School Diploma/GED Difficulty w/ Childcare or Family Care: No Living arrangements: with family Gender identity (if verbalized by the patient): Male Spiritual care concerns: No Anes - Eval Final PreProcedure Day of Procedure 10/18/24 13:55 Patient weight: obese Heart: regular rate and rhythm Lungs: clear to auscultation Airway: Mallampati scale class II Neurological: alert and oriented Last oral intake: >/= 8 hours ASA classification: IV Emergent: no Anesthetic plan: proceed Anesthesia type and monitoring: general ETT and standard monitoring Results Review: All pre-operative results and documents have been reviewed as part of the pre- operative evaluation. Informed Consent: The patient's anesthetic plan and its attendant risks and benefits were discussed with the patient/family/POA. Questions were solicited and answers provided to the satisfaction of the patient/family/POA.
--- NOTE | 2024-10-18 14:29 | PCPTNOTE ---
Attempted to see patient for PT, however patient was out of the room for procedure.
[2024-10-18] MEDS: ceFAZolin 2 GM/D5W 50 ML 2 GM/50 ML BAG IVPB (14:41)
[2024-10-18] MEDS: cefTRIAXone 2 GM/NS 100 ML 2 GM/100 ML BAG IVPB (14:41)
--- NOTE | 2024-10-18 15:09 | S_PTH ---
PATIENT: Angel Zuniga LOC: [id number] U#:[id number] AGE/SX: 88/M ROOM: 258 RE10/01/[address]: iJm Miguel MD : 1935 BED: 01 DIS: 10/24/2024 SPEC #: [id number] RECD: 10/19/24 08:25 STATUS: ISSA REQ #: [id number] SKYLER: 10/18/24 15:[address]: Rosendo Brennan DEPT: [facility] Surgical RECD BY: Cindy Barnhart ENTERED: 10/19/24 08:25 SP TYPE: Surgical OTHR DR: DO Juan Larry MD Prashanth Jayaraj, MD Henry E. Purcell, MD Evelyne Thomas, APRN Tissues: A - Gallbladder Procedures: Hematoxylin and Eosin Stain Gross and Microscopic Level 3
[2024-10-18] MEDS: BUPIVACAINE/EPINEPHRINE 0.5% 30 ML VIAL INFILTRATE (15:46)
[2024-10-18] MEDS: LACTATED RINGERS 1,000 ML 30 ML IV CONT ×2 (17:30→17:31)
[2024-10-18] MEDS: fentaNYL CITRATE INJ (*CRX) 100 MCG/2 ML VIAL 25 MCG IV PUSH ×2 (17:55→18:05)
--- NOTE | 2024-10-18 18:02 | W.PM.PROC2 ---
Procedure Note - Detailed Date of Procedure 10/18/24 Pre-op Diagnosis Choledocholithiasis, acute and chronic cholecystitis Post-op Diagnosis Same Procedure Performed Laparoscopic cholecystectomy Surgeon Rosendo Brennan MD Integrative Medicine Physician Mildred Christianson [facility] Anesthesia General and Local Indications Patient was admitted with chest pain which turned out to be noncardiac. He was found to have gallstones and cholecystitis by HIDA scan and ultrasound. Patient is on Plavix and also had acute kidney injury with enterococcal bacteremia. He had a cholecystostomy tube placed under ultrasound guidance. He improved but continued to have positive blood cultures and remain ill. Cholecystogram was done and showed he had common bile duct obstruction, presumably by stones. His liver enzymes had never been elevated. He underwent ERCP 2 days ago and many stones were found in his common bile duct and were retrieved. His Plavix has been held and he is now taken to surgery for laparoscopic cholecystectomy to avoid continued passage of stones in his common bile duct. Is cholecystostomy tube is still in place at the time of surgery. Findings Patient had very severe chronic cholecystitis. His gallbladder was packed with stones. Gallbladder itself was very friable but was thickened consistent with chronic inflammation. Adhesions to the gallbladder were dense and very vascular. Even though no significant vessels were injured and no abrupt brisk bleeding occurred, he had 350 cc blood loss from continued oozing from adhesions and other areas of dissection. Is gallbladder wall was thickened but, despite having had a cholecystostomy tube in for over a week, his gallbladder was still distended but this was due to being packed with gallstones. The surgery took over 2 hours which is 4 times more than usual. Blood loss of 350 cc is 10 times more than typical. The patient cystic duct was so thickened and enlarged that it had to be ligated with a Vicryl endoloop rather than clipped. We had to place an extra port in the left mid abdomen to assist with retraction. Bleeding from the gallbladder fossa required use of 2 different applications of FloSeal. Procedure was easily 1 of the most difficult cholecystectomy he has I have performed. Description of Procedure Patient was taken to surgery and induced into general anesthesia. The abdomen is prepped and draped. Trocars were placed in the usual fashion using local anesthetic, applied Medical optical trocars, and a 5 mm camera. Patient was placed in mild reverse Trendelenburg as he could not tolerate more than this. The gallbladder was barely visible as it was covered by chronic omental adhesions. These adhesions were dense and very vascular. They were also adherent to the undersurface of the liver. Using sharp dissection and cautery, these adhesions were taken off the gallbladder and the lateral aspect of the right lobe of the liver. Cautery had to be used on the liver to achieve hemostasis after this dissection. There were additional adhesions to the gallbladder that were taken down and eventually we were able to see the infundibulum of the gallbladder and what appeared to be the triangle of [place]. Despite the thickened wall of the gallbladder, it was very friable and just grasping the infundibulum and neck area resulted in 2 small openings in the gallbladder. It was through these that we could see the tremendous number of gallstones in the gallbladder. These varied in size but none were particularly large. Throughout the entire surgery we had to stop and use a stone grasping forceps to continually remove stones as they reached the edge of the openings in the gallbladder. Great care was taken not to dump or lose any significant amount of stones in the abdomen. Dissection was continued using multiple different means on the infundibulum and cystic duct. To facilitate exposure of the cystic duct and its dissection, a 5th trocar was placed in the left mid abdomen. Through this a blunt retractor could be used to retract liver edge as well as to retract the duodenum posteriorly. I never did see the cystic artery and suspect it may have thrombosed due to the inflammatory process. As it was obvious the air was on going slow oozing of blood with the dissection and that more dissection was going to be needed, we transfused the patient 1 unit of packed red blood cells. He was anemic prior to surgery and it was felt that he had certainly had enough oozing of blood that this would be needed. Care was taken to dissect the infundibulum of the gallbladder off the liver and also dissect the gallbladder from the proximal cystic duct. This dissection was carried out on both the medial and lateral aspect of the gallbladder. The cystic duct was slowly identified as was its junction with the common bile duct. Cystic duct was short. This was likely due to the severity of the chronic inflammation but also it was dilated. I dissected the gallbladder circumferentially at the origin of the cystic duct and proximally to well over the lower 3rd of the gallbladder. I searched for the cystic artery but none was seen. I then continued dissection of the cystic duct and tried to obtain as much length of cystic duct as possible without, of course, causing any bile duct injury. Once this was accomplished, I clipped the cystic duct at its junction with the gallbladder. I then divided the cystic duct just beyond the clip. This was a short cystic duct stump but I was able to ligated with a Vicryl endoloop in a secure fashion. Once this was completed, we placed gentle traction on the gallbladder and continued dissection of the gallbladder off the liver trying to avoid any liver surface injury. By large this was accomplished. Cautery was used for hemostasis and for some of the dissection. The only entries into the gallbladder were made by trying to grasp and retract the gallbladder, not from dissection. Eventually the gallbladder was completely freed from the liver. It was placed immediately in an Endo-Catch bag. It was extricated through the 10 11 epigastric trocar site. This trocar site had to be enlarged to accommodate the gallbladder with its thickened wall and distension with many gallstones. Once the gallbladder was removed, the epigastric trocar was replaced. We used towel clips to occlude the skin and subcutaneous so that we could re insufflate. Oozing of blood from the dissection of the adhesions and from the gallbladder dissection continued at a slow rate throughout the surgery. At several different junctures we stopped and suctioned the blood and clot from the subhepatic space. Now with the gallbladder out, we suctioned away residual blood and clot. We elevated the liver so that the gallbladder fossa could be examined. Cautery was used to achieve some degree of hemostasis on the gallbladder fossa. We also used FloSeal which was quite helpful. Eventually the gallbladder fossa looked quite good with no evidence of bleeding or bile leakage. There was still raw surface area from the omentum and the undersurface of the right lobe of the liver that was oozing from adhesiolysis done at the earliest portion of the surgery. I also used cautery as well as another FloSeal application to these areas. These were very effective an achieving hemostasis as well. Irrigation and suctioning were done repeatedly. All looked quite good with no evidence of further bleeding. There was no evidence of bile leakage either. A 19 Ariel drain was then cut to the appropriate length and passed through the right lower quadrant trocar site. It was positioned in the subhepatic space. The drain was cut to the appropriate length and then sutured to the skin with 2-0 silk. We again reviewed the right upper quadrant. All looked good. We evacuated CO2 and removed the trocar sleeves. The fascia at the epigastric trocar site was closed in 2 layers. The posterior rectus fascia was closed with interrupted 3-0 Vicryl [id number] mattress suture. The anterior rectus fascia was closed with 0 Vicryl figure of 8 mattress sutures. The subcutaneous was closed with 3-0 Vicryl suture. All skin wounds were closed with subcuticular 4-0 Monocryl skin suture. The drain was placed to bulb suction. A dressing was placed over the drain site. The other trocar sites were dressed with Exofin surgical adhesive. The patient was then awakened and extubated. He was then transferred to recovery in good condition. Sponge and needle counts were correct x2. Estimated Blood Loss -350 Urine Output 600 Drains Yes (Nineteen [place] Ariel drain) Packing No Pathology Yes (Gallbladder) Complications None Condition Stable Disposition PACU [facility] Billing Surgery - Charge Forward: Surgery Billing (Laparoscopic cholecystectomy-add 22 modifier for severe disease and difficulty of surgery.)
[2024-10-18] MEDS: LACTATED RINGERS 1,000 ML 100 ML IV CONT (19:36)
[2024-10-18] MEDS: MORPHINE SULFATE (*CRX) 4 MG/ML INJ 5 MG IV PUSH (19:36)
[2024-10-19 00:40] VITALS: BP 126/52; PULSE 67; RESP 18; TEMP 36; O2SAT 98
[2024-10-19] MEDS: MORPHINE SULFATE (*CRX) 4 MG/ML INJ 5 MG IV PUSH (01:03)
[2024-10-19 04:40] VITALS: BP 134/57; PULSE 83; RESP 16; TEMP 36.6; O2SAT 94
[2024-10-19] MEDS: AMPICILLIN 2 GM/NS 100 ML 2 GM/100 ML BAG IVPB ×3 (05:49→21:46)
[2024-10-19] MEDS: LACTATED RINGERS 1,000 ML 100 ML IV CONT (05:49)
[2024-10-19] MEDS: MORPHINE SULFATE (*CRX) 2 MG/ML INJ 3 MG IV PUSH (05:55)
[2024-10-19 06:19] LABS: Hematocrit 30.0 % (42.0-52.0); Hemoglobin 9.5 g/dL (14.0-18.0); Immature Granulocyte Percent A 1.8 % (0-0.5); Lymphocytes Absolute Auto 0.80 K/mm3 (0.9-3.2); Mean Corpuscular HGB Conc 31.7 g/dl (32-36); Mean Corpuscular Hemoglobin 29.6 pg (26-34); Mean Corpuscular Volume 93.5 fl (80-100); Nucleated Red Blood Cells Absolute Auto 0.020 K/mm3 (0.0-0.012); Nucleated Red Blood Cells Perc 0.1 % (0.0-0.2); Platelet Count Result 532 k/mm3 (150-375); Red Blood Count 3.21 M/mm3 (4.6-6.20); White Blood Count 14.3 K/mm3 (4.5-10.0)
[2024-10-19 06:28] LABS: INR 1.3; Partial Thromboplastin Time 39.7 Seconds (22.3-36.8); Prothrombin Time 15.8 Seconds (11.1-14.7)
[2024-10-19 06:39] LABS: Alanine Aminotransferase 16 U/L (6-50); Albumin Level 3.0 g/dL (3.5-5.1); Alkaline Phosphatase 87 U/L (38-126); Anion Gap 7 mmol/L (4-12); Aspartate Amino Transferase 47 U/L (17-59); Bilirubin,Total 0.5 mg/dL (0.2-1.3); Blood Urea Nitrogen 33 mg/dL (9-20); Calcium 8.4 mg/dL (8.4-10.2); Carbon Dioxide 32 mmol/L (22-30); Chloride 94 mmol/L (98-107); Estimated CRCL calculation 22 ml/min; Estimated Glomerular Filt Rate 24; Glucose 118 mg/dL (65-110); Potassium 4.7 mmol/L (3.4-5.0); Sodium 133 mmol/L (137-145); Total Protein 6.6 g/dL (6.3-8.2)
--- NOTE | 2024-10-19 08:08 | P.PNGS_ITS ---
Progress Note: A&P Assessment and Plan (1) Choledocholithiasis with acute cholecystitis: Code(s): K80.42 - Calculus of bile duct with acute cholecystitis without obstruction Status: Acute Assessment and Plan: Seems to be doing well after very difficult laparoscopic cholecystectomy a stir day. He received 1 unit of packed cells during surgery and H&H is slightly higher than preop. Analgesics available are adequate for pain control. He is a chronic opioid user so needs more than opioid naive patient would. Advance to soft diet as tolerated. (2) Enterococcal bacteremia: Code(s): R78.81 - Bacteremia; B95.2 - Enterococcus as the cause of diseases classified elsewhere Status: Acute Assessment and Plan: Continues on ampicillin antibiotics with ceftriaxone. (3) DVT (deep venous thrombosis): Code(s): I82.409 - Acute embolism and thrombosis of unspecified deep veins of unspecified lower extremity Status: Acute Assessment and Plan: Perineal vein DVT, minimal risk for pulmonary embolism (4) Chronic anticoagulation: Code(s): Z79.01 - FPC (current) use of anticoagulants Status: Acute Assessment and Plan: Restart prophylactic dose of subcutaneous heparin. Probably can restart heparin drip or full anticoagulation tomorrow. (5) Stage 4 chronic kidney disease: Code(s): N18.4 - Chronic kidney disease, stage 4 (severe) Status: Chronic (6) Antiplatelet or antithrombotic long-term use: Code(s): Z79.02 - long term care social worker (current) use of antithrombotics/antiplatelets Status: Chronic Assessment and Plan: Plavix still on hold Subjective Subjective Date/Time Seen: 10/19/24 08:08 Post Op day: 1 Patient reports: no new complaints, pain is less and afebrile Exam Const: General: comfortable and awake GI: Inspection: no abdominal wall ecchymosis and incision (Healing well, serosanguineous NAI output) GI Palp: Yes Soft to palpation and Yes Tenderness to palpation present (GI) Objective Data Vital Signs Vital Signs: Vital Signs - 24 hr 10/18/24 08:40 10/18/24 13:49 10/18/24 14:00 Temperature 37.5 C 37.9 C H Pulse Rate 85 87 Respiratory Rate 18 Blood Pressure 142/58 H 152/57 H Pulse Oximetry 94 95 Oxygen Delivery Room Air Room Air Oxygen Flow Rate 10/18/24 17:30 10/18/24 17:45 10/18/24 18:00 Temperature 36.2 C L Pulse Rate 74 77 79 Respiratory Rate 20 16 15 Blood Pressure 139/61 144/64 H 146/62 H Pulse Oximetry 100 16 L 97 Oxygen Delivery Simple Face Mask Simple Face Mask Room Air Oxygen Flow Rate 8 8 10/18/24 18:15 10/18/24 18:30 10/18/24 18:45 Temperature Pulse Rate 78 76 77 Respiratory Rate 16 16 14 Blood Pressure 146/63 H 147/63 H 144/58 H Pulse Oximetry 100 99 98 Oxygen Delivery Nasal Cannula Nasal Cannula Nasal Cannula Oxygen Flow Rate 3 3 2 10/18/24 19:22 10/18/24 19:40 10/18/24 20:00 Temperature 36.4 C L 36.3 C L Pulse Rate 80 80 Respiratory Rate 16 16 Blood Pressure 139/57 L 143/61 H Pulse Oximetry 99 100 100 Oxygen Delivery Nasal Cannula Oxygen Flow Rate 3 10/18/24 20:05 10/18/24 21:07 10/19/24 00:40 Temperature 36.5 C 36.2 C L 36.0 C L Pulse Rate 74 76 67 Respiratory Rate 16 18 18 Blood Pressure 133/59 L 115/49 L 126/52 L Pulse Oximetry 100 96 98 Oxygen Delivery Oxygen Flow Rate 10/19/24 02:10 10/19/24 04:40 Temperature 36.6 C Pulse Rate 83 Respiratory Rate 16 Blood Pressure 134/57 L Pulse Oximetry 94 Oxygen Delivery Room Air Oxygen Flow Rate Intake/Output Intake/Output: Intake & Output 10/16/24 10/17/24 10/18/24 10/19/24 23:59 23:59 23:59 23:59 Intake Total 1600 2806.5 1693.6 1200 Output Total 4850 1500 2100 500 Balance -3250 1306.5 -406.4 700 Meds/Results Medications: Active Medications Generic Name Dose Route Start Last Admin Trade Name Freq PRN Reason Stop Dose Admin Acetaminophen 500 mg 10/18/24 18:55 Acetaminophen 500 Mg Tablet PO Q6H PRN Pain Rated 1-3 Albuterol 2 puff 10/03/24 15:40 10/04/24 09:06 Albuterol Sulfate (*Sp) Aerosol 1 Puff INHALATION 2 puff Q6HRT PRN Administration Shortness Of Breath Or Wheezing Clopidogrel Bisulfate 75 mg 10/01/24 09:00 10/12/24 08:42 Clopidogrel Bisulfate 75 Mg Tablet PO 75 mg DAILY VU Administration Dextrose 12.5 gm 09/30/24 20:29 Dextrose 50% 25 Gm/50 Ml Syringe IV PUSH PRN PRN Hypoglycemia Protocol Docusate Sodium 100 mg 10/01/24 09:00 10/18/24 12:32 Docusate Sodium 100 Mg Capsule PO Not Given DAILY [facility] Ezetimibe 10 mg 10/01/24 09:00 10/18/24 12:32 Ezetimibe 10 Mg Tablet PO Not Given DAILY VU Epoetin [place]-epbx 10,000 units 10/16/24 09:00 10/18/24 08:42 Epoetin [place]-Epbx 10,000 Units/Ml Vial SUB-Q 10,000 units TUTHSA@09 VU Administration Finasteride 5 mg 10/01/24 09:00 10/18/24 12:33 Finasteride 5 Mg Tablet PO Not Given DAILY [facility] Fluticasone Propionate 2 spray 09/30/24 20:28 10/14/24 08:33 Fluticasone Propionate 0.05% Na Spr 16 Gm Btl (*Bkc) NASAL 2 spray DAILY PRN Administration allergy symptoms Furosemide 40 mg 10/09/24 09:00 10/18/24 18:17 Furosemide 40 Mg Tablet PO Not Given BID VU Glucagon 1 mg 09/30/24 20:29 Glucagon For Inj 1 Mg Vial IM PRN PRN Hypoglycemia Protocol Glucose 15 gm 09/30/24 20:29 Glucose Oral Gel 15 Gm Of Glucse In 37.5 Gm Tube PO PRN PRN Hypoglycemia Protocol Heparin Sodium (Porcine) 5,000 units 09/30/24 21:00 10/14/24 08:34 Heparin Sodium 5,000 Units/Ml Vial SUB-Q 5,000 units Q12HR VU Administration Heparin Sodium (Porcine) 4,000 units 10/17/24 13:37 Heparin Sodium 5,000 Units/Ml Vial IV PUSH PRN PRN aPTT less than 55 seconds Heparin Sodium (Porcine) 3,000 units 10/17/24 13:37 10/17/24 22:02 Heparin Sodium 5,000 Units/Ml Vial IV PUSH 3,000 units PRN PRN Administration aPTT 55 - 70 seconds Dextrose 1,000 mls @ 100 mls/hr 09/30/24 20:29 Dextrose 5% 1,000 Ml IVPB PRN PRN Hypoglycemia Protocol Ceftriaxone Sodium 2 gm in 100 mls @ 200 mls/hr 10/08/24 14:00 10/18/24 15:11 Rocephin 2 Gm/Ns 100 Ml IVPB Infused Q24H VU Infusion Ampicillin Sodium 2 gm in 100 mls @ 200 mls/hr 10/16/24 14:00 10/19/24 06:20 Ampicillin 2 Gm/Ns 100 Ml IVPB 10/22/24 23:59 Infused Q8H VU Infusion Heparin Sodium/Dextrose 25,000 units in 250 mls @ 12 mls/hr 10/17/24 13:40 10/18/24 05:53 Heparin Sodium/D5w 100 Units/Ml IV CONT 1,200 units/hr .[id number] VU 12 mls/hr Titration Protocol 1,200 UNITS/HR Lactated Ringer's 1,000 mls @ 100 mls/hr 10/18/24 18:55 10/19/24 05:49 Lr - Lactated Ringers Iv IV CONT 100 mls/hr .Q10H VU Administration Insulin Aspart 1 - 3 units 09/30/24 21:00 10/18/24 20:39 Insulin Aspart (*Bkc) 100 Units/Ml SUB-Q Not Given HS VU Protocol Insulin Aspart 3 - 6 units 10/01/24 08:00 10/18/24 18:17 Insulin Aspart (*Bkc) 100 Units/Ml SUB-Q Not Given TIDWM [facility] Protocol Miscellaneous Information 0 each 10/18/24 00:01 Please Renew _.Ceftriaxone, Met Per Autost[employer] Procedure, It Will Discontinue If Not Renewed XX 11/17/24 00:00 CLARIFY [facility] Morphine Sulfate 15 mg 10/07/24 09:53 10/18/24 08:42 Morphine Sulfate (*Crx) 15 Mg Tab Ir PO 15 mg Q4H PRN Administration Pain Rated 7-10 Morphine Sulfate 3 mg 10/18/24 18:55 10/19/24 05:55 Morphine Sulfate (*Crx) 2 Mg/Ml Inj IV PUSH 3 mg Q2H PRN Administration Breakthrough Pain Rated 4-6 or NPO Morphine Sulfate 5 mg 10/18/24 18:55 10/19/24 01:03 Morphine Sulfate (*Crx) 4 Mg/Ml Inj IV PUSH 5 mg Q2H PRN Administration Breakthrough Pain Rated 7-10 or NPO Naloxone HCl 0.1 mg 10/18/24 18:55 Naloxone Hcl 0.4 Mg/Ml Vial IV PUSH Q2M PRN Opiate Reversal Ondansetron HCl 4 mg 09/30/24 19:02 10/12/24 11:54 Ondansetron Inj 4 Mg/2 Ml Vial IV PUSH 4 mg Q4H PRN Administration Nausea Pantoprazole Sodium 40 mg 10/07/24 09:00 10/18/24 12:33 Pantoprazole 40 Mg Tablet PO Not Given QAM VU Polyethylene Glycol 17 gm 10/10/24 13:40 10/18/24 12:33 Polyethylene Glycol 3350 17 Gm Powd.Pack PO Not Given QAM VU Saccharomyces Boulardii 250 mg 10/11/24 17:00 10/18/24 18:17 Saccharomyces Boulardii 250 Mg Capsule PO Not Given BID VU Sodium Chloride 500 mg 10/06/24 17:00 10/18/24 18:17 Sodium Chloride 500 Mg Tablet PO Not Given BID VU Verapamil HCl 120 mg 09/30/24 21:00 10/18/24 20:39 Verapamil Hcl 120 Mg Tablet Immed Release PO 120 mg Q12HR VU Administration Radiology Results: ITS Impressions Abdomen/Pelvis CT 09/30/24 19:00 IMPRESSION: Gallbladder hydrops without inflammatory change. Dilated common bile duct, measuring 14 mm. No obstructing stone or mass detected. Correlate with biliary labs. 3.4 cm fusiform infrarenal abdominal aortic aneurysm. Consider follow-up in 3 years. Upper Quadrant Ultrasound 10/01/24 08:43 IMPRESSION: 1. Cholelithiasis with a normal-appearing gallbladder but with mild intra and extrahepatic biliary ductal dilation which raises concern for a nonvisualized distal obstructing choledocholithiasis. Correlate with liver function tests and if clinically indicated could consider further evaluation with either MRCP or ERCP. Hepatobiliary Scan Nuclear Medicine 10/05/24 08:35 IMPRESSION: 1. No evident gallbladder activity consistent with acute cholecystitis. Cholecystostomy 10/05/24 16:57 IMPRESSION: 1. Successful ultrasound-guided cholecystostomy tube placement. 2. 35 mL bile was sent for aerobic, anaerobic, and fungal cultures. 3. The catheter will be managed by Dr. Brennan. Cholangiogram 10/12/24 14:45 IMPRESSION: 1. Cholelithiasis and choledocholithiasis obstructing distal choledocholithiasis with no observed contrast emptying into the duodenum. The cystic duct is patent. Consider ERCP for stone extraction and sphincterotomy to relieve the distal ductal obstruction. Chest X-Ray 10/17/24 11:39 IMPRESSION: No significant change from previous examination. Venous Doppler Study 10/17/24 13:00 IMPRESSION: 1. Right [id number] deep venous thrombosis in one of the paired right peroneal veins. Findings were discussed with Abeba crum, the nurse caring for the patient, at 1:07 PM. 2. No deep venous thrombosis in the left lower limb. 3. Small right [place]'s cyst. Labs Labs: Laboratory Results - last 24 hr 10/17/24 10/18/24 10/18/24 08:45 08:04 12:10 WBC RBC Hgb Hct MCV MCH MCHC RDW Plt Count MPV Immature Gran % (Auto) Neut % (Auto) Lymph % (Auto) [place] % (Auto) Eos % (Auto) Baso % (Auto) Lymph # (Auto) [place] # (Auto) Eos # (Auto) Baso # (Auto) Abs Immat Gran (auto) Absolute Neuts (auto) Absolute Nucleated RBC Nucleated RBC % PT INR APTT Sodium Potassium Chloride Carbon Dioxide Anion Gap BUN Creatinine Estim Creat Clear Calc Estimated GFR Glucose POC Capillary Glucose 124 H 112 H Calcium Total Bilirubin AST ALT Alkaline Phosphatase Total Protein Albumin Blood Type O Positive Antibody Screen Negative Crossmatch See Detail 10/18/24 10/18/24 10/19/24 18:11 20:11 05:50 WBC 14.3 H RBC 3.21 L Hgb 9.5 L Hct 30.0 L MCV 93.5 MCH 29.6 MCHC 31.7 L RDW 15.9 H Plt Count 532 H MPV 8.5 Immature Gran % (Auto) 1.8 H Neut % (Auto) 80.0 H Lymph % (Auto) 5.6 L [place] % (Auto) 11.7 H Eos % (Auto) 0.3 Baso % (Auto) 0.6 Lymph # (Auto) 0.80 L [place] # (Auto) 1.7 H Eos # (Auto) 0.1 Baso # (Auto) 0.1 Abs Immat Gran (auto) 0.26 H Absolute Neuts (auto) 11.5 H Absolute Nucleated RBC 0.020 H Nucleated RBC % 0.1 PT 15.8 H INR 1.3 APTT 39.7 H Sodium 133 L Potassium 4.7 Chloride 94 L Carbon Dioxide 32 H Anion Gap 7 BUN 33 H Creatinine 2.53 H Estim Creat Clear Calc 22 Estimated GFR 24 L Glucose 118 H POC Capillary Glucose 149 H 148 H Calcium 8.4 Total Bilirubin 0.5 AST 47 ALT 16 Alkaline Phosphatase 87 Total Protein 6.6 Albumin 3.0 L Blood Type Antibody Screen Crossmatch 10/19/24 07:57 WBC RBC Hgb Hct MCV MCH MCHC RDW Plt Count MPV Immature Gran % (Auto) Neut % (Auto) Lymph % (Auto) [place] % (Auto) Eos % (Auto) Baso % (Auto) Lymph # (Auto) [place] # (Auto) Eos # (Auto) Baso # (Auto) Abs Immat Gran (auto) Absolute Neuts (auto) Absolute Nucleated RBC Nucleated RBC % PT INR APTT Sodium Potassium Chloride Carbon Dioxide Anion Gap BUN Creatinine Estim Creat Clear Calc Estimated GFR Glucose POC Capillary Glucose 103 Calcium Total Bilirubin AST ALT Alkaline Phosphatase Total Protein Albumin Blood Type Antibody Screen Crossmatch
[2024-10-19] MEDS: VERAPAMIL HCL 120 MG TABLET IMMED RELEASE PO ×2 (08:33→20:25)
[2024-10-19] MEDS: EZETIMIBE 10 MG TABLET PO (08:33)
[2024-10-19] MEDS: FINASTERIDE 5 MG TABLET PO (08:33)
[2024-10-19] MEDS: PANTOPRAZOLE 40 MG TABLET PO (08:34)
[2024-10-19] MEDS: FUROSEMIDE 40 MG TABLET PO ×2 (08:34→17:21)
[2024-10-19] MEDS: SODIUM CHLORIDE 500 MG TABLET PO ×2 (08:34→17:21)
[2024-10-19] MEDS: SACCHAROMYCES BOULARDII 250 MG CAPSULE PO ×2 (08:34→17:21)
[2024-10-19] MEDS: DOCUSATE SODIUM 100 MG CAPSULE PO (08:34)
[2024-10-19 08:40] VITALS: BP 143/59; PULSE 87; RESP 18; O2SAT 93
--- NOTE | 2024-10-19 09:19 | PCNFU ---
Nutrition Follow-Up Complete: Inadequate oral intake related to acute loss of appetite as evidenced by recent intakes 0-50% Improve PO intake to 50% meals and supplements - Progressing. Continue same goal Goal: Pt current nutrition is Low fiber diet. Nutrition recommendation: No new recommendations. Continue current diet. Will monitor intakes for need for supplement Last recorded weight is 98.2 kg. Bowel Motility: +1 BM 10/18 Labs Reviewed: Hgb 9.5, Hct 20, Alb 3.0, Na 133, BUN 33, Cre 2.53 Meds Noted: Insulin, protonix, colace, m iralax Skin: Incision Additional Notes: Pt had lap torrie 10/17 and doing well with post-op. Diet progression per MD. Will add supplements if intakes remain suboptimal. Agree with orders Monitoring intakes, weights, labs, supplement intake, plan of care Follow up in 5 days
[2024-10-19] MEDS: oxyCODONE HCL (*CRX) 5 MG TAB IR PO ×2 (12:03→17:21)
[2024-10-19 12:40] VITALS: BP 137/54; PULSE 76; RESP 18; TEMP 36.5; O2SAT 96
[2024-10-19] MEDS: cefTRIAXone 2 GM/NS 100 ML 2 GM/100 ML BAG IVPB (14:08)
--- NOTE | 2024-10-19 14:56 | P.PNNP_ITS ---
Progress Note: A&P Assessment and Plan (1) Acute kidney injury: Code(s): N17.9 - Acute kidney failure, unspecified Status: Acute Assessment and Plan: * improvement noted and is back to baseline * evaluation to date noted: * admission CT of A/P with no suspicious mass, obstructing stone, or hydronephrosis * prerenal urine electrolytes (by FeUrea) * urine eosinophils negative * mild proteinuria * normal/low CPK * UA without evidence of infection * suspect multifactorial etiology: * prerenal factors * infection (bacteremia + cholecystitis) * resumed on diuretic therapy: furosemide 40mg bid * check a bmp in am (2) Stage 4 chronic kidney disease: Code(s): N18.4 - Chronic kidney disease, stage 4 (severe) Status: Chronic Assessment and Plan: * slow and progressive decline noted * GFR ~ 22 to 23 in * GFR ~ 20 to 21 in * GFR ~ 18 by July 2024 labs * creatinine has been running anywhere from 2.4 - 3.2mg/dl in the last 6 months * creatinine on 09/27/24 (outpatient labs) = 3.93mg/dl (GFR 15) -- but this may have related to his acute medical issues noted on admission * most likely due to diabetes and hypertension + chronic diuretic therapy (3) Azotemia: Code(s): R79.89 - Other specified abnormal findings of blood chemistry Status: Acute Assessment and Plan: improving (4) Bacteremia: Code(s): R78.81 - Bacteremia Status: Acute Assessment and Plan: * blood culture results noted: * 10/04 blood cultures - Enterococcus faecalis * 10/05 blood cultures - Enterococcus faecalis * presumed source = gallbladder * gallbladder/bile culture - Enterococcus faecalis * on antibiotics * Echo results (10/13) noted: * left ventricular systolic function is normal, estimated at 60-65% * left ventricular diastolic function is grade I diastolic dysfunction * 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, 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 * moderate to severe mitral valve regurgitation * circumferential echogenic mass measuring 1.4 cm x 0.8 cm attached to left atrial side of mitral valve annulus which probably calcified mass; there is an additional small calcified echogenic mass attached to left ventricular side of posterior mitral valve leaflet -- probably calcifications more likely than vegetations; consider ADOLFO if clinically indicated * mild tricuspid valve regurgitation * mild pulmonary hypertension, estimated pulmonary arterial systolic pressure is 40 mmHg * trace pulmonic regurgitation * Cardiology recommendations noted -- patient not interested in ADOLFO at this time... * repeat blood cultures (10/08) negative (5) Gallbladder hydrops: Code(s): K82.1 - Hydrops of gallbladder Status: Inactive Assessment and Plan: * status post torrie * feels better since procedure (6) Anemia: Code(s): D64.9 - Anemia, unspecified Status: Acute Assessment and Plan: * due to combo of LEROY, CKD, acute illness/infection and possibly previous IVFs * hb good today at 9.5 (7) Hypertension: Code(s): I10 - Essential (primary) hypertension Status: Chronic Assessment and Plan: * reasonable control * follow trend of hemodynamics (8) Type 2 diabetes mellitus with hyperglycemia, without long-term current use of insulin: Code(s): E11.65 - Type 2 diabetes mellitus with hyperglycemia Status: Chronic Assessment and Plan: * follow accu-cheks * glycemic control per hospitalist Will continue to follow. Subjective Date/time seen: 10/19/24 14:57 Interval history: pt is alert. had cholecystectomy yesterday. on low fat diet today. not very hungry. no cp or sob. Exam Narrative: General: elderly but WD/WN male in NAD Heart: normal S1 and S2; no rub or gallop Lungs: clear anteriorly Abdomen: soft, nontender, nondistended, positive bowel sounds Extremities: no cyanosis or clubbing; trace - 1+ edema Skin: no rash Objective Data Vital Signs Vital Signs: Vital Signs - 24 hr 10/18/24 17:30 10/18/24 17:45 10/18/24 18:00 Temperature 97.1 F L Pulse Rate 74 77 79 Respiratory Rate 20 16 15 Blood Pressure 139/61 144/64 H 146/62 H Pulse Oximetry 100 16 L 97 Oxygen Delivery Simple Face Mask Simple Face Mask Room Air Oxygen Flow Rate 8 8 10/18/24 18:15 10/18/24 18:30 10/18/24 18:45 Temperature Pulse Rate 78 76 77 Respiratory Rate 16 16 14 Blood Pressure 146/63 H 147/63 H 144/58 H Pulse Oximetry 100 99 98 Oxygen Delivery Nasal Cannula Nasal Cannula Nasal Cannula Oxygen Flow Rate 3 3 2 10/18/24 19:22 10/18/24 19:40 10/18/24 20:00 Temperature 97.5 F L 97.4 F L Pulse Rate 80 80 Respiratory Rate 16 16 Blood Pressure 139/57 L 143/61 H Pulse Oximetry 99 100 100 Oxygen Delivery Nasal Cannula Oxygen Flow Rate 3 10/18/24 20:05 10/18/24 21:07 10/19/24 00:40 Temperature 97.7 F 97.1 F L 96.8 F L Pulse Rate 74 76 67 Respiratory Rate 16 18 18 Blood Pressure 133/59 L 115/49 L 126/52 L Pulse Oximetry 100 96 98 Oxygen Delivery Oxygen Flow Rate 10/19/24 02:10 10/19/24 04:40 10/19/24 08:30 Temperature 98 F Pulse Rate 83 Respiratory Rate 16 Blood Pressure 134/57 L Pulse Oximetry 94 Oxygen Delivery Room Air Room Air Oxygen Flow Rate 10/19/24 08:40 10/19/24 12:40 Temperature 97.7 F Pulse Rate 87 76 Respiratory Rate 18 18 Blood Pressure 143/59 H 137/54 L Pulse Oximetry 93 96 Oxygen Delivery Oxygen Flow Rate Intake/Output Intake/Output: Intake & Output 10/16/24 10/17/24 10/18/24 10/19/24 23:59 23:59 23:59 23:59 Intake Total 1600 2806.5 1693.6 1490 Output Total 4850 1500 2100 500 Balance -3250 1306.5 -406.4 990 Meds/Results Medications: Active Medications Generic Name Dose Route Start Last Admin Trade Name Freq PRN Reason Stop Dose Admin Acetaminophen 500 mg 10/18/24 18:55 Acetaminophen 500 Mg Tablet PO Q6H PRN Pain Rated 1-3 Albuterol 2 puff 10/03/24 15:40 10/04/24 09:06 Albuterol Sulfate (*Sp) Aerosol 1 Puff INHALATION 2 puff Q6HRT PRN Administration Shortness Of Breath Or Wheezing Clopidogrel Bisulfate 75 mg 06/09/25 09:00 10/12/24 08:42 Clopidogrel Bisulfate 75 Mg Tablet PO 75 mg DAILY VU Administration Dextrose 12.5 gm 09/30/24 20:29 Dextrose 50% 25 Gm/50 Ml Syringe IV PUSH PRN PRN Hypoglycemia Protocol Docusate Sodium 100 mg 10/01/24 09:00 10/19/24 08:34 Docusate Sodium 100 Mg Capsule PO 100 mg DAILY VU Administration Ezetimibe 10 mg 10/01/24 09:00 10/19/24 08:33 Ezetimibe 10 Mg Tablet PO 10 mg DAILY VU Administration Epoetin Gordo-epbx 10,000 units 10/16/24 09:00 10/18/24 08:42 Epoetin Gordo-Epbx 10,000 Units/Ml Vial SUB-Q 10,000 units TUTHSA@09 VU Administration Finasteride 5 mg 10/01/24 09:00 10/19/24 08:33 Finasteride 5 Mg Tablet PO 5 mg DAILY VU Administration Fluticasone Propionate 2 spray 09/30/24 20:28 10/14/24 08:33 Fluticasone Propionate 0.05% Na Spr 16 Gm Btl (*Bkc) NASAL 2 spray DAILY PRN Administration allergy symptoms Furosemide 40 mg 10/09/24 09:00 10/19/24 08:34 Furosemide 40 Mg Tablet PO 40 mg BID VU Administration Glucagon 1 mg 09/30/24 20:29 Glucagon For Inj 1 Mg Vial IM PRN PRN Hypoglycemia Protocol Glucose 15 gm 09/30/24 20:29 Glucose Oral Gel 15 Gm Of Glucse In 37.5 Gm Tube PO PRN PRN Hypoglycemia Protocol Heparin Sodium (Porcine) 5,000 units 09/30/24 21:00 10/19/24 08:36 Heparin Sodium 5,000 Units/Ml Vial SUB-Q 5,000 units Q12HR VU Administration Heparin Sodium (Porcine) 4,000 units 10/17/24 13:37 Heparin Sodium 5,000 Units/Ml Vial IV PUSH PRN PRN aPTT less than 55 seconds Heparin Sodium (Porcine) 3,000 units 10/17/24 13:37 10/17/24 22:02 Heparin Sodium 5,000 Units/Ml Vial IV PUSH 3,000 units PRN PRN Administration aPTT 55 - 70 seconds Dextrose 1,000 mls @ 100 mls/hr 09/30/24 20:29 Dextrose 5% 1,000 Ml IVPB PRN PRN Hypoglycemia Protocol Ceftriaxone Sodium 2 gm in 100 mls @ 200 mls/hr 10/08/24 14:00 10/19/24 14:08 Rocephin 2 Gm/Ns 100 Ml IVPB 200 mls/hr Q24H VU Administration Ampicillin Sodium 2 gm in 100 mls @ 200 mls/hr 10/16/24 14:00 10/19/24 14:08 Ampicillin 2 Gm/Ns 100 Ml IVPB 10/22/24 23:59 200 mls/hr Q8H VU Administration Heparin Sodium/Dextrose 25,000 units in 250 mls @ 12 mls/hr 10/17/24 13:40 10/18/24 05:53 Heparin Sodium/D5w 100 Units/Ml IV CONT 1,200 units/hr .[id number] VU 12 mls/hr Titration Protocol 1,200 UNITS/HR Insulin Aspart 1 - 3 units 09/30/24 21:00 10/18/24 20:39 Insulin Aspart (*Bkc) 100 Units/Ml SUB-Q Not Given HS [facility] Protocol Insulin Aspart 3 - 6 units 10/01/24 08:00 10/19/24 11:56 Insulin Aspart (*Bkc) 100 Units/Ml SUB-Q Not Given TIDWM [facility] Protocol Miscellaneous Information 0 each 10/18/24 00:01 Please Renew _.Ceftriaxone, Met Per [employer] Procedure, It Will Discontinue If Not Renewed XX 11/17/24 00:00 CLARIFY [facility] Morphine Sulfate 15 mg 10/07/24 09:53 10/18/24 08:42 Morphine Sulfate (*Crx) 15 Mg Tab Ir PO 15 mg Q4H PRN Administration Pain Rated 7-10 Morphine Sulfate 3 mg 10/18/24 18:55 10/19/24 05:55 Morphine Sulfate (*Crx) 2 Mg/Ml Inj IV PUSH 3 mg Q2H PRN Administration Breakthrough Pain Rated 4-6 or NPO Morphine Sulfate 5 mg 10/18/24 18:55 10/19/24 01:03 Morphine Sulfate (*Crx) 4 Mg/Ml Inj IV PUSH 5 mg Q2H PRN Administration Breakthrough Pain Rated 7-10 or NPO Naloxone HCl 0.1 mg 10/18/24 18:55 Naloxone Hcl 0.4 Mg/Ml Vial IV PUSH Q2M PRN Opiate Reversal Ondansetron HCl 4 mg 09/30/24 19:02 10/12/24 11:54 Ondansetron Inj 4 Mg/2 Ml Vial IV PUSH 4 mg Q4H PRN Administration Nausea Oxycodone HCl 5 mg 10/19/24 09:20 10/19/24 12:03 Oxycodone Hcl (*Crx) 5 Mg Tab Ir PO 10/19/24 17:01 5 mg TID VU Administration Pantoprazole Sodium 40 mg 10/07/24 09:00 10/19/24 08:34 Pantoprazole 40 Mg Tablet PO 40 mg QAM VU Administration Polyethylene Glycol 17 gm 10/10/24 13:40 10/19/24 08:34 Polyethylene Glycol 3350 17 Gm Powd.Pack PO 17 gm QAM VU Administration Saccharomyces Boulardii 250 mg 10/11/24 17:00 10/19/24 08:34 Saccharomyces Boulardii 250 Mg Capsule PO 250 mg BID VU Administration Sodium Chloride 500 mg 10/06/24 17:00 10/19/24 08:34 Sodium Chloride 500 Mg Tablet PO 500 mg BID VU Administration Verapamil HCl 120 mg 09/30/24 21:00 10/19/24 08:33 Verapamil Hcl 120 Mg Tablet Immed Release PO 120 mg Q12HR VU Administration Radiology Results: ITS Impressions Abdomen/Pelvis CT 09/30/24 19:00 IMPRESSION: Gallbladder hydrops without inflammatory change. Dilated common bile duct, measuring 14 mm. No obstructing stone or mass detected. Correlate with biliary labs. 3.4 cm fusiform infrarenal abdominal aortic aneurysm. Consider follow-up in 3 years. Upper Quadrant Ultrasound 10/01/24 08:43 IMPRESSION: 1. Cholelithiasis with a normal-appearing gallbladder but with mild intra and extrahepatic biliary ductal dilation which raises concern for a nonvisualized distal obstructing choledocholithiasis. Correlate with liver function tests and if clinically indicated could consider further evaluation with either MRCP or ERCP. Cholecystostomy 10/05/24 16:57 IMPRESSION: 1. Successful ultrasound-guided cholecystostomy tube placement. 2. 35 mL bile was sent for aerobic, anaerobic, and fungal cultures. 3. The catheter will be managed by Dr. Brennan. Cholangiogram 10/12/24 14:45 IMPRESSION: 1. Cholelithiasis and choledocholithiasis obstructing distal choledocholithiasis with no observed contrast emptying into the duodenum. The cystic duct is patent. Consider ERCP for stone extraction and sphincterotomy to relieve the distal ductal obstruction. Chest X-Ray 10/17/24 11:39 IMPRESSION: No significant change from previous examination. Venous Doppler Study 10/17/24 13:00 IMPRESSION: 1. Right [id number] deep venous thrombosis in one of the paired right peroneal veins. Findings were discussed with Abeba crum, the nurse caring for the patient, at 1:07 PM. 2. No deep venous thrombosis in the left lower limb. 3. Small right Ren[place]'s cyst. Hepatobiliary Scan Nuclear Medicine 10/19/24 11:59 IMPRESSION: 1. Normal post cholecystectomy hepatobiliary scan with no bile leak. Labs Labs: Laboratory Results - last 24 hr 10/17/24 10/18/24 10/18/24 08:45 18:11 20:11 WBC RBC Hgb Hct MCV MCH MCHC RDW Plt Count MPV Immature Gran % (Auto) Neut % (Auto) Lymph % (Auto) Hughes % (Auto) Eos % (Auto) Baso % (Auto) Lymph # (Auto) Hughes # (Auto) Eos # (Auto) Baso # (Auto) Abs Immat Gran (auto) Absolute Neuts (auto) Absolute Nucleated RBC Nucleated RBC % PT INR APTT Sodium Potassium Chloride Carbon Dioxide Anion Gap BUN Creatinine Estim Creat Clear Calc Estimated GFR Glucose POC Capillary Glucose 149 H 148 H Calcium Total Bilirubin AST ALT Alkaline Phosphatase Total Protein Albumin Blood Type O Positive Antibody Screen Negative Crossmatch See Detail 10/19/24 10/19/24 10/19/24 05:50 07:57 11:47 WBC 14.3 H RBC 3.21 L Hgb 9.5 L Hct 30.0 L MCV 93.5 MCH 29.6 MCHC 31.7 L RDW 15.9 H Plt Count 532 H MPV 8.5 Immature Gran % (Auto) 1.8 H Neut % (Auto) 80.0 H Lymph % (Auto) 5.6 L Hughes % (Auto) 11.7 H Eos % (Auto) 0.3 Baso % (Auto) 0.6 Lymph # (Auto) 0.80 L Hughes # (Auto) 1.7 H Eos # (Auto) 0.1 Baso # (Auto) 0.1 Abs Immat Gran (auto) 0.26 H Absolute Neuts (auto) 11.5 H Absolute Nucleated RBC 0.020 H Nucleated RBC % 0.1 PT 15.8 H INR 1.3 APTT 39.7 H Sodium 133 L Potassium 4.7 Chloride 94 L Carbon Dioxide 32 H Anion Gap 7 BUN 33 H Creatinine 2.53 H Estim Creat Clear Calc 22 Estimated GFR 24 L Glucose 118 H POC Capillary Glucose 103 140 H Calcium 8.4 Total Bilirubin 0.5 AST 47 ALT 16 Alkaline Phosphatase 87 Total Protein 6.6 Albumin 3.0 L Blood Type Antibody Screen Crossmatch
[2024-10-19 20:30] VITALS: BP 120/54; PULSE 70; RESP 20; TEMP 37.1; O2SAT 96
[2024-10-20] MEDS: MORPHINE SULFATE (*CRX) 15 MG TAB IR PO ×6 (00:03→21:31)
[2024-10-20 05:17] VITALS: BP 139/60; PULSE 80; RESP 20; TEMP 36.6; O2SAT 94
[2024-10-20 05:45] LABS: Hematocrit 28.2 % (42.0-52.0); Hemoglobin 8.7 g/dL (14.0-18.0); Immature Granulocyte Percent A 2.5 % (0-0.5); Lymphocytes Absolute Auto 1.04 K/mm3 (0.9-3.2); Mean Corpuscular HGB Conc 30.9 g/dl (32-36); Mean Corpuscular Hemoglobin 29.2 pg (26-34); Mean Corpuscular Volume 94.6 fl (80-100); Nucleated Red Blood Cells Absolute Auto 0.000 K/mm3 (0.0-0.012); Nucleated Red Blood Cells Perc 0.0 % (0.0-0.2); Platelet Count Result 423 k/mm3 (150-375); Red Blood Count 2.98 M/mm3 (4.6-6.20); White Blood Count 13.7 K/mm3 (4.5-10.0)
[2024-10-20] MEDS: AMPICILLIN 2 GM/NS 100 ML 2 GM/100 ML BAG IVPB ×3 (05:47→21:43)
[2024-10-20 05:57] LABS: Alanine Aminotransferase 13 U/L (6-50); Albumin Level 2.8 g/dL (3.5-5.1); Alkaline Phosphatase 76 U/L (38-126); Anion Gap 7 mmol/L (4-12); Aspartate Amino Transferase 37 U/L (17-59); Bilirubin,Total 0.4 mg/dL (0.2-1.3); Blood Urea Nitrogen 35 mg/dL (9-20); Calcium 8.2 mg/dL (8.4-10.2); Carbon Dioxide 33 mmol/L (22-30); Chloride 96 mmol/L (98-107); Estimated CRCL calculation 20 ml/min; Estimated Glomerular Filt Rate 22; Glucose 125 mg/dL (65-110); Potassium 3.9 mmol/L (3.4-5.0); Sodium 136 mmol/L (137-145); Total Protein 6.2 g/dL (6.3-8.2)
[2024-10-20] MEDS: SACCHAROMYCES BOULARDII 250 MG CAPSULE PO ×2 (09:15→17:19)
[2024-10-20] MEDS: FUROSEMIDE 40 MG TABLET PO ×2 (09:15→17:18)
[2024-10-20] MEDS: DOCUSATE SODIUM 100 MG CAPSULE PO (09:15)
[2024-10-20] MEDS: FINASTERIDE 5 MG TABLET PO (09:15)
[2024-10-20] MEDS: VERAPAMIL HCL 120 MG TABLET IMMED RELEASE PO ×2 (09:15→21:33)
[2024-10-20] MEDS: PANTOPRAZOLE 40 MG TABLET PO (09:15)
[2024-10-20] MEDS: EZETIMIBE 10 MG TABLET PO (09:15)
[2024-10-20] MEDS: SODIUM CHLORIDE 500 MG TABLET PO ×2 (09:15→17:19)
[2024-10-20] MEDS: EPOETIN ALFA-EPBX 10,000 UNITS/ML VIAL 10000 UNITS SUB-Q (09:16)
--- NOTE | 2024-10-20 10:00 | P.PNNP_ITS ---
Progress Note: A&P Assessment and Plan (1) Acute kidney injury: Code(s): N17.9 - Acute kidney failure, unspecified Status: Acute Assessment and Plan: * improvement noted and is back to baseline * evaluation to date noted: * admission CT of A/P with no suspicious mass, obstructing stone, or hydronephrosis * prerenal urine electrolytes (by FeUrea) * urine eosinophils negative * mild proteinuria * normal/low CPK * UA without evidence of infection * suspect multifactorial etiology: * prerenal factors * infection (bacteremia + cholecystitis) * resumed on diuretic therapy: furosemide 40mg bid * Swelling is better * Creatinine is slightly higher. It seems to be bouncing between 2.5 and 2.7. * Will check another number tomorrow on the same medications. (2) Stage 4 chronic kidney disease: Code(s): N18.4 - Chronic kidney disease, stage 4 (severe) Status: Chronic Assessment and Plan: * slow and progressive decline noted * GFR ~ 22 to 23 in * GFR ~ 20 to 21 in * GFR ~ 18 by July 2024 labs * creatinine has been running anywhere from 2.4 - 3.2mg/dl in the last 6 months * creatinine on 09/27/24 (outpatient labs) = 3.93mg/dl (GFR 15) -- but this may have related to his acute medical issues noted on admission * most likely due to diabetes and hypertension + chronic diuretic therapy (3) Azotemia: Code(s): R79.89 - Other specified abnormal findings of blood chemistry Status: Acute Assessment and Plan: improving (4) Bacteremia: Code(s): R78.81 - Bacteremia Status: Acute Assessment and Plan: * blood culture results noted: * 10/04 blood cultures - Enterococcus faecalis * 10/05 blood cultures - Enterococcus faecalis * presumed source = gallbladder * gallbladder/bile culture - Enterococcus faecalis * on ampicillin and ceftriaxone * Echo results (10/13) noted: * left ventricular systolic function is normal, estimated at 60-65% * left ventricular diastolic function is grade I diastolic dysfunction * 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, 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 * moderate to severe mitral valve regurgitation * circumferential echogenic mass measuring 1.4 cm x 0.8 cm attached to left a trial side of mitral valve annulus which probably calcified mass; there is an additional small calcified echogenic mass attached to left ventricular side of posterior mitral valve leaflet -- probably calcifications more likely than vegetations; consider ADOLFO if clinically indicated * mild tricuspid valve regurgitation * mild pulmonary hypertension, estimated pulmonary arterial systolic pressure is 40 mmHg * trace pulmonic regurgitation * Cardiology recommendations noted -- patient not interested in ADOLFO at this time. * repeat blood cultures (10/08) negative (5) Gallbladder hydrops: Code(s): K82.1 - Hydrops of gallbladder Status: Inactive Assessment and Plan: * status post torrie * feels better since procedure (6) Anemia: Code(s): D64.9 - Anemia, unspecified Status: Acute Assessment and Plan: * due to combo of LEROY, CKD, acute illness/infection and possibly previous IVFs * hb up and down in the high 8s and low 9s (7) Hypertension: Code(s): I10 - Essential (primary) hypertension Status: Chronic Assessment and Plan: * Systolic ranging 120-143 * Continue same medication (8) Type 2 diabetes mellitus with hyperglycemia, without long-term current use of insulin: Code(s): E11.65 - Type 2 diabetes mellitus with hyperglycemia Status: Chronic Assessment and Plan: * follow accu-cheks * glycemic control per hospitalist Subjective Date/time seen: 10/20/24 10:00 Interval history: Angel is feeling little bit better. He ate more breakfast today. Pain is still present. No shortness of breath or chest pain Exam Narrative: General: elderly but WD/WN male in NAD Heart: normal S1 and S2; no rub or gallop Lungs: clear bilaterally Abdomen: soft, nontender, nondistended, positive bowel sounds Extremities: Trace bilateral edema Skin: no rash or subcu nodules Objective Data Vital Signs Vital Signs: Vital Signs - 24 hr 10/19/24 12:40 10/19/24 14:31 10/19/24 20:30 Temperature 97.7 F 98.7 F Pulse Rate 76 70 Respiratory Rate 18 20 Blood Pressure 137/54 L 120/54 L Pulse Oximetry 96 96 Oxygen Delivery Room Air 10/20/24 05:17 Temperature 97.9 F Pulse Rate 80 Respiratory Rate 20 Blood Pressure 139/60 Pulse Oximetry 94 Oxygen Delivery Intake/Output Intake/Output: Intake & Output 10/17/24 10/18/24 10/19/24 10/20/24 23:59 23:59 23:59 23:59 Intake Total 2806.5 1693.6 2180 500 Output Total 1500 2100 830 565 Balance 1306.5 -406.4 1350 -65 Meds/Results Medications: Active Medications Generic Name Dose Route Start Last Admin Trade Name Freq PRN Reason Stop Dose Admin Acetaminophen 500 mg 10/18/24 18:55 Acetaminophen 500 Mg Tablet PO Q6H PRN Pain Rated 1-3 Albuterol 2 puff 10/03/24 15:40 10/04/24 09:06 Albuterol Sulfate (*Sp) Aerosol 1 Puff INHALATION 2 puff Q6HRT PRN Administration Shortness Of Breath Or Wheezing Clopidogrel Bisulfate 75 mg 10/01/24 09:00 10/12/24 08:42 Clopidogrel Bisulfate 75 Mg Tablet PO 75 mg DAILY VU Administration Dextrose 12.5 gm 09/30/24 20:29 Dextrose 50% 25 Gm/50 Ml Syringe IV PUSH PRN PRN Hypoglycemia Protocol Docusate Sodium 100 mg 10/01/24 09:00 10/20/24 09:15 Docusate Sodium 100 Mg Capsule PO 100 mg DAILY VU Administration Ezetimibe 10 mg 10/01/24 09:00 10/20/24 09:15 Ezetimibe 10 Mg Tablet PO 10 mg DAILY VU Administration Epoetin Gordo-epbx 10,000 units 10/16/24 09:00 10/20/24 09:16 Epoetin Gordo-Epbx 10,000 Units/Ml Vial SUB-Q 10,000 units TUTA@09 VU Administration Finasteride 5 mg 10/01/24 09:00 10/20/24 09:15 Finasteride 5 Mg Tablet PO 5 mg DAILY VU Administration Fluticasone Propionate 2 spray 09/30/24 20:28 10/14/24 08:33 Fluticasone Propionate 0.05% Na Spr 16 Gm Btl (*Bkc) NASAL 2 spray DAILY PRN Administration allergy symptoms Furosemide 40 mg 10/09/24 09:00 10/20/24 09:15 Furosemide 40 Mg Tablet PO 40 mg BID VU Administration Glucagon 1 mg 09/30/24 20:29 Glucagon For Inj 1 Mg Vial IM PRN PRN Hypoglycemia Protocol Glucose 15 gm 09/30/24 20:29 Glucose Oral Gel 15 Gm Of Glucse In 37.5 Gm Tube PO PRN PRN Hypoglycemia Protocol Heparin Sodium (Porcine) 5,000 units 09/30/24 21:00 10/20/24 09:14 Heparin Sodium 5,000 Units/Ml Vial SUB-Q 5,000 units Q12HR VU Administration Heparin Sodium (Porcine) 4,000 units 10/17/24 13:37 Heparin Sodium 5,000 Units/Ml Vial IV PUSH PRN PRN aPTT less than 55 seconds Heparin Sodium (Porcine) 3,000 units 10/17/24 13:37 10/17/24 22:02 Heparin Sodium 5,000 Units/Ml Vial IV PUSH 3,000 units PRN PRN Administration aPTT 55 - 70 seconds Dextrose 1,000 mls @ 100 mls/hr 09/30/24 20:29 Dextrose 5% 1,000 Ml IVPB PRN PRN Hypoglycemia Protocol Ceftriaxone Sodium 2 gm in 100 mls @ 200 mls/hr 10/08/24 14:00 10/19/24 14:38 Rocephin 2 Gm/Ns 100 Ml IVPB Infused Q24H VU Infusion Ampicillin Sodium 2 gm in 100 mls @ 200 mls/hr 10/16/24 14:00 10/20/24 06:27 Ampicillin 2 Gm/Ns 100 Ml IVPB 10/22/24 23:59 Infused Q8H VU Infusion Heparin Sodium/Dextrose 25,000 units in 250 mls @ 12 mls/hr 10/17/24 13:40 10/18/24 05:53 Heparin Sodium/D5w 100 Units/Ml IV CONT 1,200 units/hr .[id number] VU 12 mls/hr Titration Protocol 1,200 UNITS/HR Insulin Aspart 1 - 3 units 09/30/24 21:00 10/19/24 21:41 Insulin Aspart (*Bkc) 100 Units/Ml SUB-Q Not Given HS VU Protocol Insulin Aspart 3 - 6 units 10/01/24 08:00 10/20/24 09:13 Insulin Aspart (*Bkc) 100 Units/Ml SUB-Q Not Given [facility]IDWM [facility] Protocol Miscellaneous Information 0 each 10/18/24 00:01 Please Renew _.Ceftriaxone, Met Per [employer] Procedure, It Will Discontinue If Not Renewed XX 11/17/24 00:00 CLARIFY VU Morphine Sulfate 15 mg 10/07/24 09:53 10/20/24 09:27 Morphine Sulfate (*Crx) 15 Mg Tab Ir PO 15 mg Q4H PRN Administration Pain Rated 7-10 Morphine Sulfate 3 mg 10/18/24 18:55 10/19/24 05:55 Morphine Sulfate (*Crx) 2 Mg/Ml Inj IV PUSH 3 mg Q2H PRN Administration Breakthrough Pain Rated 4-6 or NPO Morphine Sulfate 5 mg 10/18/24 18:55 10/19/24 01:03 Morphine Sulfate (*Crx) 4 Mg/Ml Inj IV PUSH 5 mg Q2H PRN Administration Breakthrough Pain Rated 7-10 or NPO Naloxone HCl 0.1 mg 10/18/24 18:55 Naloxone Hcl 0.4 Mg/Ml Vial IV PUSH Q2M PRN Opiate Reversal Ondansetron HCl 4 mg 09/30/24 19:02 10/12/24 11:54 Ondansetron Inj 4 Mg/2 Ml Vial IV PUSH 4 mg Q4H PRN Administration Nausea Pantoprazole Sodium 40 mg 10/07/24 09:00 10/20/24 09:15 Pantoprazole 40 Mg Tablet PO 40 mg QAM VU Administration Polyethylene Glycol 17 gm 10/10/24 13:40 10/20/24 09:16 Polyethylene Glycol 3350 17 Gm Powd.Pack PO 17 gm QAM VU Administration Saccharomyces Boulardii 250 mg 10/11/24 17:00 10/20/24 09:15 Saccharomyces Boulardii 250 Mg Capsule PO 250 mg BID VU Administration Sodium Chloride 500 mg 10/06/24 17:00 10/20/24 09:15 Sodium Chloride 500 Mg Tablet PO 500 mg BID VU Administration Verapamil HCl 120 mg 09/30/24 21:00 10/20/24 09:15 Verapamil Hcl 120 Mg Tablet Immed Release PO 120 mg Q12HR VU Administration Radiology Results: ITS Impressions Abdomen/Pelvis CT 09/30/24 19:00 IMPRESSION: Gallbladder hydrops without inflammatory change. Dilated common bile duct, measuring 14 mm. No obstructing stone or mass detected. Correlate with biliary labs. 3.4 cm fusiform infrarenal abdominal aortic aneurysm. Consider follow-up in 3 years. Upper Quadrant Ultrasound 10/01/24 08:43 IMPRESSION: 1. Cholelithiasis with a normal-appearing gallbladder but with mild intra and extrahepatic biliary ductal dilation which raises concern for a nonvisualized distal obstructing choledocholithiasis. Correlate with liver function tests and if clinically indicated could consider further evaluation with either MRCP or ERCP. Cholecystostomy 10/05/24 16:57 IMPRESSION: 1. Successful ultrasound-guided cholecystostomy tube placement. 2. 35 mL bile was sent for aerobic, anaerobic, and fungal cultures. 3. The catheter will be managed by Dr. Brennan. Cholangiogram 10/12/24 14:45 IMPRESSION: 1. Cholelithiasis and choledocholithiasis obstructing distal choledocholithiasis with no observed contrast emptying into the duodenum. The cystic duct is patent. Consider ERCP for stone extraction and sphincterotomy to relieve the distal ductal obstruction. Chest X-Ray 10/17/24 11:39 IMPRESSION: No significant change from previous examination. Venous Doppler Study 10/17/24 13:00 IMPRESSION: 1. Right [id number] deep venous thrombosis in one of the paired right peroneal veins. Findings were discussed with Abeba crum, the nurse caring for the patient, at 1:07 PM. 2. No deep venous thrombosis in the left lower limb. 3. Small right Reno's cyst. Hepatobiliary Scan Nuclear Medicine 10/19/24 11:59 IMPRESSION: 1. Normal post cholecystectomy hepatobiliary scan with no bile leak. Labs Labs: Laboratory Results - last 24 hr 10/19/24 10/19/24 10/19/24 11:47 17:16 20:34 WBC RBC Hgb Hct MCV MCH MCHC RDW Plt Count MPV Immature Gran % (Auto) Neut % (Auto) Lymph % (Auto) Stark % (Auto) Eos % (Auto) Baso % (Auto) Lymph # (Auto) Stark # (Auto) Eos # (Auto) Baso # (Auto) Abs Immat Gran (auto) Absolute Neuts (auto) Absolute Nucleated RBC Nucleated RBC % Sodium Potassium Chloride Carbon Dioxide Anion Gap BUN Creatinine Estim Creat Clear Calc Estimated GFR Glucose POC Capillary Glucose 140 H 127 H 152 H Calcium Total Bilirubin AST ALT Alkaline Phosphatase Total Protein Albumin 10/20/24 10/20/24 05:36 08:10 WBC 13.7 H RBC 2.98 L Hgb 8.7 L Hct 28.2 L MCV 94.6 MCH 29.2 MCHC 30.9 L RDW 15.5 H Plt Count 423 H MPV 8.3 Immature Gran % (Auto) 2.5 H Neut % (Auto) 73.6 H Lymph % (Auto) 7.6 L Stark % (Auto) 13.9 H Eos % (Auto) 1.7 Baso % (Auto) 0.7 Lymph # (Auto) 1.04 Stark # (Auto) 1.9 H Eos # (Auto) 0.2 Baso # (Auto) 0.1 Abs Immat Gran (auto) 0.34 H Absolute Neuts (auto) 10.1 H Absolute Nucleated RBC 0.000 Nucleated RBC % 0.0 Sodium 136 L Potassium 3.9 Chloride 96 L Carbon Dioxide 33 H Anion Gap 7 BUN 35 H Creatinine 2.76 H Estim Creat Clear Calc 20 Estimated GFR 22 L Glucose 125 H POC Capillary Glucose 112 H Calcium 8.2 L Total Bilirubin 0.4 AST 37 ALT 13 Alkaline Phosphatase 76 Total Protein 6.2 L Albumin 2.8 L
[2024-10-20] MEDS: ACETAMINOPHEN 500 MG TABLET PO (12:38)
[2024-10-20] MEDS: cefTRIAXone 2 GM/NS 100 ML 2 GM/100 ML BAG IVPB (13:35)
[2024-10-20 15:44] VITALS: BP 123/49; PULSE 72; RESP 20; TEMP 36.6; O2SAT 95
--- NOTE | 2024-10-20 17:43 | P.PNIM_ITS ---
Progress Note: A&P Assessment and Plan (1) Chest pain: Qualifiers: Chest pain type: unspecified Qualified Code(s): R07.9 - Chest pain, unspecified Code(s): R07.9 - Chest pain, unspecified Status: Acute Assessment and Plan: Prior chest pain resolved. No shortness of breath. Thought to be more con sistent with GI cause with reported indigestion and significant right upper quadrant pain. Cardiology has been following -Troponins 0.053, 0.080, 0.090 -Holding Antihypertensives and Plavix. -->HOLD Plavix since 10/05 for lap torrie per surg. Initially deferred 05/27 bacteremia --Started heparin drip for acute DVT. Hold at 6am for OR (2) Acute kidney injury superimposed on CKD: Code(s): N17.9 - Acute kidney failure, unspecified; N18.9 - Chronic kidney disease, unspecified Status: Acute Assessment and Plan: Patient has chronic kidney disease stage 4 with acute kidney injury. Most likely prerenal due to intervascular volume depletion. Initially held Lasix and rehydrated, fluids at 75ml/hr. Nephrology was consulted from the ER. 10/02- cr/bun 2.96/100, peaked 10/05: Cr/BUN: 3.54/94. Has been fluctuating, but stable at 40/2.64 on furosemide side 10/09. 09/30 UA trace protein. 10/01 protein/creat ratio 0.36 - Continue flomax --continue furosemide 20mg daily --Nephrology following, appreciate recommendations (3) Gallbladder hydrops: Code(s): K82.1 - Hydrops of gallbladder Status: Inactive Assessment and Plan: Admitted for evaluation of abdominal and chest pain, associated with nausea. Surgery and GI consulted. Cleared by cardiology preop and now s/p OR 10/[address] Brennan. Intraop bleeding s/p 1 unit of PRBC. IMAGING 09/30 CT did not suggest overt acute cholecystitis but patient does have significant kit right upper quadrant pain on palpation and worsening of his nausea with palpation of right upper quadrant. 10/01 RUQ US: Cholelithiasis with a normal-appearing gallbladder but with mild intra and extrahepatic biliary ductal dilation which raises concern for a nonvisualized distal obstructing choledocholithiasis. Correlate with liver function tests and if clinically indicated could consider further evaluation with either MRCP or ERCP. 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 10/12: Cholangiogram showed: Cholelithiasis and choledocholithiasis obstructing distal choledocholithiasis with no observed contrast emptying into the duodenum. The cystic duct is patent. Consider ERCP for stone extraction and sphincterotomy to relieve the distal ductal obstruction. 10/16 ERCP showed: Ampulla appeared normal with small papillary orifice. Selective, deep bile duct cannulation achieved Pappillatome and a 0.035 inch wire. There were many filling defects in the distal CBD consistent with stones. A sphincterectomy was performed with a therapeutic 3.5 Fr papillotome device in the bile duct with a 8 mm cut. A stone extraction was performed with a 9-12 mm balloon catheter and the assistance of a 0.035 inch short-wire access for complete clearance of approximately 10 unfragmented stones. One more passage of the balloon was used to wash the common bile duct. The balloon was extracted through the papillotomy orifice insufflated at 9 mm, no stones of debris, rendering the common bile duct cleared. PLAN --s/p OR for lap torrie. Antibiotics for bacteremia as noted: Ampicillin, Ceftriaxone, and Metronidazole --Resumed diet --Follow CBC, CMP. Type and screen next 10/20 --Transfuse for hgb <7, s/p 1 unite 10/18 --Heparin drip off post op. Blood count trending down but may be normal variation. Repeat in AM. If stable may be able to restart heparin drip if ok with surgery. Hold off if continues to downtrend --s/p OR 10/18 --Plavix has been held since 10/12, restart when able --10/19 HIDA scan to evaluate bleeding was negative (4) Type 2 diabetes mellitus with hyperglycemia, without long-term current use of insulin: Code(s): E11.65 - Type 2 diabetes mellitus with hyperglycemia Status: Chronic Assessment and Plan: Holding Actos -Moderate dose sliding scale insulin with Accu-Cheks a.c. HS and hypoglycemia protocol. -Glucose has been stable during stay (5) Elevated brain natriuretic peptide (BNP) level: Code(s): R79.89 - Other specified abnormal findings of blood chemistry Status: Acute Assessment and Plan: LABS: 10/11: BNP 9,700. Lasix 40 mg ivp x 1 given. Trending down with furosemide 40mg BID and creatinine improving. 10/13 Echocardiogram showed: Summary 1. Definity contrast administered improved wall motion interpretation. 2. Left ventricular chamber dimension is normal. 3. Left ventricular systolic function is normal, estimated at 60-65. 4. There is moderate concentric increased left ventricular wall thickness. 5. The left ventricular diastolic function is grade I diastolic dysfunction. 6. E/e' 15 is elevated. 7. Left atrial chamber dimension is mildly enlarged. 8. 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 Consider ADOLFO if clinically indicated. 9. There is moderate to severe mitral valve regurgitation. 10. Circumferential echogenic mass measuring 1.4 cm x 0.8 cm attached to left atrial side of mitral valve annulus which probably calcified mass. There is an additional small calcified echogenic mass attached to left ventricular side of posterior mitral valve leaflet. Probably calcifications more likely than vegetations. Consider ADOLFO if clinically indicated. 11. There is mild tricuspid valve regurgitation. 12. Mild pulmonary hypertension, estimated pulmonary arterial systolic pressure is 40 mmHg. 13. There is trace pulmonic regurgitation. PLAN * Cardiology consulted, planning ADOLFO outpatient with child support officer * Held lasix for OR, resumed (6) Abdominal aortic aneurysm (AAA) 3.0 cm to 5.5 cm in diameter in male: Code(s): I71.40 - Abdominal aortic aneurysm, without rupture, unspecified Status: Acute Assessment and Plan: Likely chronic will defer follow-up to patient's primary care provider for serial imaging (7) Bacteremia: Code(s): R78.81 - Bacteremia Status: Acute Assessment and Plan: LABS 10/04 Blood culutre 1/2 enterococcus faecalis 10/05 Blood cultures 2/2 enterococcus faecalis 10/05 Fungal cx--NGTD 10/05 Gallbladder culture enteroccus species 10/08 Blood cultures 05/27 No growth Antbiotics Treated with empiric Vanc and Ceftriaxone, changed to Ampicillin and Gentamycin 10/07 --Continue Ampicillin, Ceftiraxone, and Metronidazole (8) Hyponatremia: Code(s): E87.1 - Hypo-osmolality and hyponatremia Status: Acute Assessment and Plan: Levels have been low since admission despite IVF NS. -Sodium chl tablets 500mg started 10/06 and sodium improved from 131<136 -Will continue to trend pt status and daily labs (9) Antiplatelet or antithrombotic long-term use: Code(s): Z79.02 - skilled nursing (current) use of antithrombotics/antiplatelets Status: Chronic Assessment and Plan: Pt with hx of pacemaker and plavix long-term use. Plavix on hold, last dose 10/12. --Holding plavix and heparin post op until ok with surgery (10) Lower extremity edema: Code(s): R60.0 - Localized edema Status: Acute Assessment and Plan: Acute peroneal DVT on dopplers today --Started a heparin drip without a bolus (11) Acute pain: Code(s): R52 - Pain, unspecified Status: Acute Assessment and Plan: Acute on chronic pain. High risk medication use with IV opiates for pain --Continue home morphine 15 mg PO --Tylenol TID prn --Morphine IR, Morphine 3-5mg IV prn Time Spent With Patient Time: 37 minutes Subjective Date/time seen: 10/20/24 11:35 Interval history: Still having pain but tolerable. Blood count slightly decreased from prior but may be lab variation Has been getting up out of bed and not dizzy Had a BM Review of Systems Review of Systems: 12 systems were reviewed with pertinent positives and negatives per HPI. Except as documented in the HPI, all other systems were reviewed and are negative. All systems reviewed & are unremarkable except as noted in HPI and below Exam Narrative: General - Awake and alert. No acute distress Eyes - PERRLA, EOM intact ENT - No thrush, No erythema Neck - No noticeable or palpable swelling Lymph Nodes - No lymphadenopathy Cardiovascular - RRR, +murmur, no JVD Lungs: Rare crackles bilateral bases, No wheezing, use of accessory muscles Skin - Skin warm and dry, no wounds or rashes Abdomen - Normal bowel sounds, abdomen soft and nontender to light palpation, mild distention NIA drain with a small amount of serosanguineous drainage. Extremities - Bilateral lower extremity edema, R>L, no cyanosis or clubbing Musculoskeletal - 5/5 strength, normal range of motion, no swollen or erythematous joints. Neurological ? Alert and oriented x 3, CN 2-12 grossly intact. Psych: Normal mood and affect Objective Data Vital Signs Vital Signs: Vital Signs - 24 hr 10/19/24 20:30 10/20/24 05:17 10/20/24 09:10 Temperature 98.7 F 97.9 F Pulse Rate 70 80 Respiratory Rate 20 20 Blood Pressure 120/54 L 139/60 Pulse Oximetry 96 94 Oxygen Delivery Room Air 10/20/24 15:44 Temperature 97.8 F Pulse Rate 72 Respiratory Rate 20 Blood Pressure 123/49 L Pulse Oximetry 95 Oxygen Delivery Intake/Output Intake/Output: Intake & Output 10/17/24 10/18/24 10/19/24 10/20/24 23:59 23:59 23:59 23:59 Intake Total 2806.5 1693.6 2180 1180 Output Total 1500 2100 830 565 Balance 1306.5 -406.4 1350 615 Meds/Results Medications: Active Medications Generic Name Dose Route Start Last Admin Trade Name Freq PRN Reason Stop Dose Admin Acetaminophen 500 mg 10/18/24 18:55 10/20/24 12:38 Acetaminophen 500 Mg Tablet PO 500 mg Q6H PRN Administration Pain Rated 1-3 Albuterol 2 puff 10/03/24 15:40 10/04/24 09:06 Albuterol Sulfate (*Sp) Aerosol 1 Puff INHALATION 2 puff Q6HRT PRN Administration Shortness Of Breath Or Wheezing Clopidogrel Bisulfate 75 mg 10/01/24 09:00 10/12/24 08:42 Clopidogrel Bisulfate 75 Mg Tablet PO 75 mg DAILY VU Administration Dextrose 12.5 gm 09/30/24 20:29 Dextrose 50% 25 Gm/50 Ml Syringe IV PUSH PRN PRN Hypoglycemia Protocol Docusate Sodium 100 mg 10/01/24 09:00 10/20/24 09:15 Docusate Sodium 100 Mg Capsule PO 100 mg DAILY VU Administration Ezetimibe 10 mg 10/01/24 09:00 10/20/24 09:15 Ezetimibe 10 Mg Tablet PO 10 mg DAILY VU Administration Epoetin Gordo-epbx 10,000 units 10/16/24 09:00 10/20/24 09:16 Epoetin [place]-Epbx 10,000 Units/Ml Vial SUB-Q 10,000 units TUTHSA@09 UV Administration Finasteride 5 mg 10/01/24 09:00 10/20/24 09:15 Finasteride 5 Mg Tablet PO 5 mg DAILY VU Administration Fluticasone Propionate 2 spray 09/30/24 20:28 10/14/24 08:33 Fluticasone Propionate 0.05% Na Spr 16 Gm Btl (*Bk) NASAL 2 spray DAILY PRN Administration allergy symptoms Furosemide 40 mg 10/09/24 09:00 10/20/24 17:18 Furosemide 40 Mg Tablet PO 40 mg BID VU Administration Glucagon 1 mg 09/30/24 20:29 Glucagon For Inj 1 Mg Vial IM PRN PRN Hypoglycemia Protocol Glucose 15 gm 09/30/24 20:29 Glucose Oral Gel 15 Gm Of Glucse In 37.5 Gm Tube PO PRN PRN Hypoglycemia Protocol Heparin Sodium (Porcine) 5,000 units 09/30/24 21:00 10/20/24 09:14 Heparin Sodium 5,000 Units/Ml Vial SUB-Q 5,000 units Q12HR VU Administration Heparin Sodium (Porcine) 4,000 units 10/17/24 13:37 Heparin Sodium 5,000 Units/Ml Vial IV PUSH PRN PRN aPTT less than 55 seconds Heparin Sodium (Porcine) 3,000 units 10/17/24 13:37 10/17/24 22:02 Heparin Sodium 5,000 Units/Ml Vial IV PUSH 3,000 units PRN PRN Administration aPTT 55 - 70 seconds Dextrose 1,000 mls @ 100 mls/hr 09/30/24 20:29 Dextrose 5% 1,000 Ml IVPB PRN PRN Hypoglycemia Protocol Ceftriaxone Sodium 2 gm in 100 mls @ 200 mls/hr 10/08/24 14:00 10/20/24 14:05 Rocephin 2 Gm/Ns 100 Ml IVPB Infused Q24H VU Infusion Ampicillin Sodium 2 gm in 100 mls @ 200 mls/hr 10/16/24 14:00 10/20/24 15:12 Ampicillin 2 Gm/Ns 100 Ml IVPB 10/22/24 23:59 Infused Q8H VU Infusion Heparin Sodium/Dextrose 25,000 units in 250 mls @ 12 mls/hr 10/17/24 13:40 10/18/24 05:53 Heparin Sodium/D5w 100 Units/Ml IV CONT 1,200 units/hr .[id number] VU 12 mls/hr Titration Protocol 1,200 UNITS/HR Insulin Aspart 1 - 3 units 09/30/24 21:00 10/19/24 21:41 Insulin Aspart (*Bkc) 100 Units/Ml SUB-Q Not Given HS [facility] Protocol Insulin Aspart 3 - 6 units 10/01/24 08:00 10/20/24 17:17 Insulin Aspart (*Bkc) 100 Units/Ml SUB-Q Not Given TIDWM [facility] Protocol Miscellaneous Information 0 each 10/18/24 00:01 Please Renew _.Ceftriaxone, Met Per Autostop Procedure, It Will Discontinue If Not Renewed XX 11/17/24 00:00 CLARIFY [facility] Morphine Sulfate 15 mg 10/07/24 09:53 10/20/24 17:18 Morphine Sulfate (*Crx) 15 Mg Tab Ir PO 15 mg Q4H PRN Administration Pain Rated 7-10 Morphine Sulfate 3 mg 10/18/24 18:55 10/19/24 05:55 Morphine Sulfate (*Crx) 2 Mg/Ml Inj IV PUSH 3 mg Q2H PRN Administration Breakthrough Pain Rated 4-6 or NPO Morphine Sulfate 5 mg 10/18/24 18:55 10/19/24 01:03 Morphine Sulfate (*Crx) 4 Mg/Ml Inj IV PUSH 5 mg Q2H PRN Administration Breakthrough Pain Rated 7-10 or NPO Naloxone HCl 0.1 mg 10/18/24 18:55 Naloxone Hcl 0.4 Mg/Ml Vial IV PUSH Q2M PRN Opiate Reversal Ondansetron HCl 4 mg 09/30/24 19:02 10/12/24 11:54 Ondansetron Inj 4 Mg/2 Ml Vial IV PUSH 4 mg Q4H PRN Administration Nausea Pantoprazole Sodium 40 mg 10/07/24 09:00 10/20/24 09:15 Pantoprazole 40 Mg Tablet PO 40 mg QAM VU Administration Polyethylene Glycol 17 gm 10/10/24 13:40 10/20/24 09:16 Polyethylene Glycol 3350 17 Gm Powd.Pack PO 17 gm QAM VU Administration Saccharomyces Boulardii 250 mg 10/11/24 17:00 10/20/24 17:19 Saccharomyces Boulardii 250 Mg Capsule PO 250 mg BID VU Administration Sodium Chloride 500 mg 10/06/24 17:00 10/20/24 17:19 Sodium Chloride 500 Mg Tablet PO 500 mg BID VU Administration Verapamil HCl 120 mg 09/30/24 21:00 10/20/24 09:15 Verapamil Hcl 120 Mg Tablet Immed Release PO 120 mg Q12HR VU Administration Radiology Results: ITS Impressions Abdomen/Pelvis CT 09/30/24 19:00 IMPRESSION: Gallbladder hydrops without inflammatory change. Dilated common bile duct, measuring 14 mm. No obstructing stone or mass detected. Correlate with biliary labs. 3.4 cm fusiform infrarenal abdominal aortic aneurysm. Consider follow-up in 3 years. Upper Quadrant Ultrasound 10/01/24 08:43 IMPRESSION: 1. Cholelithiasis with a normal-appearing gallbladder but with mild intra and extrahepatic biliary ductal dilation which raises concern for a nonvisualized distal obstructing choledocholithiasis. Correlate with liver function tests and if clinically indicated could consider further evaluation with either MRCP or ERCP. Cholecystostomy 10/05/24 16:57 IMPRESSION: 1. Successful ultrasound-guided cholecystostomy tube placement. 2. 35 mL bile was sent for aerobic, anaerobic, and fungal cultures. 3. The catheter will be managed by Dr. Brennan. Cholangiogram 10/12/24 14:45 IMPRESSION: 1. Cholelithiasis and choledocholithiasis obstructing distal choledocholithiasis with no observed contrast emptying into the duodenum. The cystic duct is patent. Consider ERCP for stone extraction and sphincterotomy to relieve the distal ductal obstruction. Chest X-Ray 10/17/24 11:39 IMPRESSION: No significant change from previous examination. Venous Doppler Study 10/17/24 13:00 IMPRESSION: 1. Right [id number] deep venous thrombosis in one of the paired right peroneal veins. Findings were discussed with Abeba crum, the nurse caring for the patient, at 1:07 PM. 2. No deep venous thrombosis in the left lower limb. 3. Small right [place]'s cyst. Hepatobiliary Scan Nuclear Medicine 10/19/24 11:59 IMPRESSION: 1. Normal post cholecystectomy hepatobiliary scan with no bile leak. Labs Labs: Laboratory Results - last 24 hr 10/19/24 10/20/24 10/20/24 20:34 05:36 08:10 WBC 13.7 H RBC 2.98 L Hgb 8.7 L Hct 28.2 L MCV 94.6 MCH 29.2 MCHC 30.9 L RDW 15.5 H Plt Count 423 H MPV 8.3 Immature Gran % (Auto) 2.5 H Neut % (Auto) 73.6 H Lymph % (Auto) 7.6 L [place] % (Auto) 13.9 H Eos % (Auto) 1.7 Baso % (Auto) 0.7 Lymph # (Auto) 1.04 [place] # (Auto) 1.9 H Eos # (Auto) 0.2 Baso # (Auto) 0.1 Abs Immat Gran (auto) 0.34 H Absolute Neuts (auto) 10.1 H Absolute Nucleated RBC 0.000 Nucleated RBC % 0.0 Sodium 136 L Potassium 3.9 Chloride 96 L Carbon Dioxide 33 H Anion Gap 7 BUN 35 H Creatinine 2.76 H Estim Creat Clear Calc 20 Estimated GFR 22 L Glucose 125 H POC Capillary Glucose 152 H 112 H Calcium 8.2 L Total Bilirubin 0.4 AST 37 ALT 13 Alkaline Phosphatase 76 Total Protein 6.2 L Albumin 2.8 L 10/20/24 10/20/24 12:34 16:53 WBC RBC Hgb Hct MCV MCH MCHC RDW Plt Count MPV Immature Gran % (Auto) Neut % (Auto) Lymph % (Auto) [place] % (Auto) Eos % (Auto) Baso % (Auto) Lymph # (Auto) [place] # (Auto) Eos # (Auto) Baso # (Auto) Abs Immat Gran (auto) Absolute Neuts (auto) Absolute Nucleated RBC Nucleated RBC % Sodium Potassium Chloride Carbon Dioxide Anion Gap BUN Creatinine Estim Creat Clear Calc Estimated GFR Glucose POC Capillary Glucose 196 H 152 H Calcium Total Bilirubin AST ALT Alkaline Phosphatase Total Protein Albumin Quality VTE Prophylaxis VTE prophylaxis: mechanical ordered Hospitalist MIPS Advance Care Plan I have confirmed that the patient's Advanced Care Plan is present, code status is documented, or surrogate decision maker is listed in patient medical record.: Yes Medication Reconciliation I have utilized all available resources to obtain, update and review the patients current medications (includes all prescriptions, OTC, herbals, cannabis, and nutritional supplements).: Yes
--- NOTE | 2024-10-20 19:40 | P.PNGS_ITS ---
Progress Note: A&P Assessment and Plan (1) Choledocholithiasis with acute cholecystitis: Code(s): K80.42 - Calculus of bile duct with acute cholecystitis without obstruction Status: Acute Assessment and Plan: * Tolerating diet. H&H overall stable and no signs of active bleeding. OK to resume anticoagulation tomorrow. (2) Enterococcal bacteremia: Code(s): R78.81 - Bacteremia; B95.2 - Enterococcus as the cause of diseases classified elsewhere Status: Acute Assessment and Plan: Continues on ampicillin antibiotics with ceftriaxone. 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 Probably can restart heparin drip or full anticoagulation tomorrow. (5) Stage 4 chronic kidney disease: Code(s): N18.4 - Chronic kidney disease, stage 4 (severe) Status: Chronic (6) Antiplatelet or antithrombotic long-term use: Code(s): Z79.02 - terminal makeup operator (current) use of antithrombotics/antiplatelets Status: Chronic Assessment and Plan: Plavix still on hold Subjective Subjective Date/Time Seen: 10/20/24 19:40 Interval history: Tolerating diet. Pain improving. No fevers. Minimal drain output. Exam Const: General: comfortable and awake GI: Inspection: no abdominal wall ecchymosis and incision (Healing well, serosanguineous NIA output) GI Palp: Yes Soft to palpation and Yes Tenderness to palpation present (GI) Objective Data Vital Signs Vital Signs: Vital Signs - 24 hr 10/19/24 20:30 10/20/24 05:17 10/20/24 09:10 Temperature 98.7 F 97.9 F Pulse Rate 70 80 Respiratory Rate 20 20 Blood Pressure 120/54 L 139/60 Pulse Oximetry 96 94 Oxygen Delivery Room Air 10/20/24 15:44 Temperature 97.8 F Pulse Rate 72 Respiratory Rate 20 Blood Pressure 123/49 L Pulse Oximetry 95 Oxygen Delivery Intake/Output Intake/Output: Intake & Output 06/25/10/18/24 10/19/24 10/20/24 23:59 23:59 23:59 23:59 Intake Total 2806.5 1693.6 2180 1970 Output Total 1500 2100 830 1065 Balance 1306.5 -406.4 1350 905 Meds/Results Medications: Active Medications Generic Name Dose Route Start Last Admin Trade Name Freq PRN Reason Stop Dose Admin Acetaminophen 500 mg 10/18/24 18:55 10/20/24 12:38 Acetaminophen 500 Mg Tablet PO 500 mg Q6H PRN Administration Pain Rated 1-3 Albuterol 2 puff 10/03/24 15:40 10/04/24 09:06 Albuterol Sulfate (*Sp) Aerosol 1 Puff INHALATION 2 puff Q6HRT PRN Administration Shortness Of Breath Or Wheezing Clopidogrel Bisulfate 75 mg 10/01/24 09:00 10/12/24 08:42 Clopidogrel Bisulfate 75 Mg Tablet PO 75 mg DAILY VU Administration Dextrose 12.5 gm 09/30/24 20:29 Dextrose 50% 25 Gm/50 Ml Syringe IV PUSH PRN PRN Hypoglycemia Protocol Docusate Sodium 100 mg 10/01/24 09:00 10/20/24 09:15 Docusate Sodium 100 Mg Capsule PO 100 mg DAILY VU Administration Ezetimibe 10 mg 10/01/24 09:00 10/20/24 09:15 Ezetimibe 10 Mg Tablet PO 10 mg DAILY VU Administration Epoetin [place]ordo-epbx 10,000 units 10/16/24 09:00 10/20/24 09:16 Epoetin [place]-Epbx 10,000 Units/Ml Vial SUB-Q 10,000 units [facility]@09 VU Administration Finasteride 5 mg 10/01/24 09:00 10/20/24 09:15 Finasteride 5 Mg Tablet PO 5 mg DAILY VU Administration Fluticasone Propionate 2 spray 09/30/24 20:28 10/14/24 08:33 Fluticasone Propionate 0.05% Na Spr 16 Gm Btl (*Bkc) NASAL 2 spray DAILY PRN Administration allergy symptoms Furosemide 40 mg 10/09/24 09:00 10/20/24 17:18 Furosemide 40 Mg Tablet PO 40 mg BID VU Administration Glucagon 1 mg 09/30/24 20:29 Glucagon For Inj 1 Mg Vial IM PRN PRN Hypoglycemia Protocol Glucose 15 gm 09/30/24 20:29 Glucose Oral Gel 15 Gm Of Glucse In 37.5 Gm Tube PO PRN PRN Hypoglycemia Protocol Heparin Sodium (Porcine) 5,000 units 09/30/24 21:00 10/20/24 09:14 Heparin Sodium 5,000 Units/Ml Vial SUB-Q 5,000 units Q12HR VU Administration Heparin Sodium (Porcine) 4,000 units 10/17/24 13:37 Heparin Sodium 5,000 Units/Ml Vial IV PUSH PRN PRN aPTT less than 55 seconds Heparin Sodium (Porcine) 3,000 units 10/17/24 13:37 10/17/24 22:02 Heparin Sodium 5,000 Units/Ml Vial IV PUSH 3,000 units PRN PRN Administration aPTT 55 - 70 seconds Dextrose 1,000 mls @ 100 mls/hr 09/30/24 20:29 Dextrose 5% 1,000 Ml IVPB PRN PRN Hypoglycemia Protocol Ceftriaxone Sodium 2 gm in 100 mls @ 200 mls/hr 10/08/24 14:00 10/20/24 14:05 Rocephin 2 Gm/Ns 100 Ml IVPB Infused Q24H VU Infusion Ampicillin Sodium 2 gm in 100 mls @ 200 mls/hr 10/16/24 14:00 10/20/24 15:12 Ampicillin 2 Gm/Ns 100 Ml IVPB 10/22/24 23:59 Infused Q8H VU Infusion Heparin Sodium/Dextrose 25,000 units in 250 mls @ 12 mls/hr 10/17/24 13:40 10/18/24 05:53 Heparin Sodium/D5w 100 Units/Ml IV CONT 1,200 units/hr .[id number] VU 12 mls/hr Titration Protocol 1,200 UNITS/HR Insulin Aspart 1 - 3 units 09/30/24 21:00 10/19/24 21:41 Insulin Aspart (*Bkc) 100 Units/Ml SUB-Q Not Given HS VU Protocol Insulin Aspart 3 - 6 units 10/01/24 08:00 10/20/24 17:17 Insulin Aspart (*Bkc) 100 Units/Ml SUB-Q Not Given TIDWM [facility] Protocol Metronidazole 500 mg 10/20/24 22:00 Metronidazole 500 Mg Tablet PO Q8HR [facility] Miscellaneous Information 0 each 10/18/24 00:01 Please Renew _.Ceftriaxone, Met Per [employer] Procedure, It Will Discontinue If Not Renewed XX 11/17/24 00:00 CLARIFY VU Morphine Sulfate 15 mg 10/07/24 09:53 10/20/24 17:18 Morphine Sulfate (*Crx) 15 Mg Tab Ir PO 15 mg Q4H PRN Administration Pain Rated 7-10 Morphine Sulfate 3 mg 10/18/24 18:55 10/19/24 05:55 Morphine Sulfate (*Crx) 2 Mg/Ml Inj IV PUSH 3 mg Q2H PRN Administration Breakthrough Pain Rated 4-6 or NPO Morphine Sulfate 5 mg 10/18/24 18:55 10/19/24 01:03 Morphine Sulfate (*Crx) 4 Mg/Ml Inj IV PUSH 5 mg Q2H PRN Administration Breakthrough Pain Rated 7-10 or NPO Naloxone HCl 0.1 mg 10/18/24 18:55 Naloxone Hcl 0.4 Mg/Ml Vial IV PUSH Q2M PRN Opiate Reversal Ondansetron HCl 4 mg 09/30/24 19:02 10/12/24 11:54 Ondansetron Inj 4 Mg/2 Ml Vial IV PUSH 4 mg Q4H PRN Administration Nausea Pantoprazole Sodium 40 mg 10/07/24 09:00 10/20/24 09:15 Pantoprazole 40 Mg Tablet PO 40 mg QAM VU Administration Polyethylene Glycol 17 gm 10/10/24 13:40 10/20/24 09:16 Polyethylene Glycol 3350 17 Gm Powd.Pack PO 17 gm QAM VU Administration Saccharomyces Boulardii 250 mg 10/11/24 17:00 10/20/24 17:19 Saccharomyces Boulardii 250 Mg Capsule PO 250 mg BID VU Administration Sodium Chloride 500 mg 10/06/24 17:00 10/20/24 17:19 Sodium Chloride 500 Mg Tablet PO 500 mg BID VU Administration Verapamil HCl 120 mg 09/30/24 21:00 10/20/24 09:15 Verapamil Hcl 120 Mg Tablet Immed Release PO 120 mg Q12HR VU Administration Radiology Results: ITS Impressions Abdomen/Pelvis CT 09/30/24 19:00 IMPRESSION: Gallbladder hydrops without inflammatory change. Dilated common bile duct, measuring 14 mm. No obstructing stone or mass detected. Correlate with biliary labs. 3.4 cm fusiform infrarenal abdominal aortic aneurysm. Consider follow-up in 3 years. Upper Quadrant Ultrasound 10/01/24 08:43 IMPRESSION: 1. Cholelithiasis with a normal-appearing gallbladder but with mild intra and extrahepatic biliary ductal dilation which raises concern for a nonvisualized distal obstructing choledocholithiasis. Correlate with liver function tests and if clinically indicated could consider further evaluation with either MRCP or ERCP. Cholecystostomy 10/05/24 16:57 IMPRESSION: 1. Successful ultrasound-guided cholecystostomy tube placement. 2. 35 mL bile was sent for aerobic, anaerobic, and fungal cultures. 3. The catheter will be managed by Dr. Brennan. Cholangiogram 10/12/24 14:45 IMPRESSION: 1. Cholelithiasis and choledocholithiasis obstructing distal choledocholithiasis with no observed contrast emptying into the duodenum. The cystic duct is patent. Consider ERCP for stone extraction and sphincterotomy to relieve the distal ductal obstruction. Chest X-Ray 10/17/24 11:39 IMPRESSION: No significant change from previous examination. Venous Doppler Study 10/17/24 13:00 IMPRESSION: 1. Right [id number] deep venous thrombosis in one of the paired right pe roneal veins. Findings were discussed with Abeba curm, the nurse caring for the patient, at 1:07 PM. 2. No deep venous thrombosis in the left lower limb. 3. Small right [place]'s cyst. Hepatobiliary Scan Nuclear Medicine 10/19/24 11:59 IMPRESSION: 1. Normal post cholecystectomy hepatobiliary scan with no bile leak. Labs Labs: Laboratory Results - last 24 hr 10/19/24 10/20/24 10/20/24 20:34 05:36 08:10 WBC 13.7 H RBC 2.98 L Hgb 8.7 L Hct 28.2 L MCV 94.6 MCH 29.2 MCHC 30.9 L RDW 15.5 H Plt Count 423 H MPV 8.3 Immature Gran % (Auto) 2.5 H Neut % (Auto) 73.6 H Lymph % (Auto) 7.6 L [place] % (Auto) 13.9 H Eos % (Auto) 1.7 Baso % (Auto) 0.7 Lymph # (Auto) 1.04 [place] # (Auto) 1.9 H Eos # (Auto) 0.2 Baso # (Auto) 0.1 Abs Immat Gran (auto) 0.34 H Absolute Neuts (auto) 10.1 H Absolute Nucleated RBC 0.000 Nucleated RBC % 0.0 Sodium 136 L Potassium 3.9 Chloride 96 L Carbon Dioxide 33 H Anion Gap 7 BUN 35 H Creatinine 2.76 H Estim Creat Clear Calc 20 Estimated GFR 22 L Glucose 125 H POC Capillary Glucose 152 H 112 H Calcium 8.2 L Total Bilirubin 0.4 AST 37 ALT 13 Alkaline Phosphatase 76 Total Protein 6.2 L Albumin 2.8 L 10/20/24 10/20/24 12:34 16:53 WBC RBC Hgb Hct MCV MCH MCHC RDW Plt Count MPV Immature Gran % (Auto) Neut % (Auto) Lymph % (Auto) [place] % (Auto) Eos % (Auto) Baso % (Auto) Lymph # (Auto) [place] # (Auto) Eos # (Auto) Baso # (Auto) Abs Immat Gran (auto) Absolute Neuts (auto) Absolute Nucleated RBC Nucleated RBC % Sodium Potassium Chloride Carbon Dioxide Anion Gap BUN Creatinine Estim Creat Clear Calc Estimated GFR Glucose POC Capillary Glucose 196 H 152 H Calcium Total Bilirubin AST ALT Alkaline Phosphatase Total Protein Albumin
[2024-10-20 20:00] VITALS: O2SAT 91
[2024-10-20 20:33] VITALS: BP 147/64; PULSE 77; RESP 20; TEMP 36.6; O2SAT 91
[2024-10-21] MEDS: MORPHINE SULFATE (*CRX) 15 MG TAB IR PO ×4 (04:31→17:19)
[2024-10-21 05:10] VITALS: BP 134/58; PULSE 78; RESP 20; TEMP 36.8; O2SAT 93
[2024-10-21 05:43] LABS: Hematocrit 29.0 % (42.0-52.0); Hemoglobin 8.8 g/dL (14.0-18.0); Immature Granulocyte Percent A 4.4 % (0-0.5); Lymphocytes Absolute Auto 1.20 K/mm3 (0.9-3.2); Mean Corpuscular HGB Conc 30.3 g/dl (32-36); Mean Corpuscular Hemoglobin 29.2 pg (26-34); Mean Corpuscular Volume 96.3 fl (80-100); Nucleated Red Blood Cells Absolute Auto 0.000 K/mm3 (0.0-0.012); Nucleated Red Blood Cells Perc 0.0 % (0.0-0.2); Platelet Count Result 452 k/mm3 (150-375); Red Blood Count 3.01 M/mm3 (4.6-6.20); White Blood Count 11.2 K/mm3 (4.5-10.0)
[2024-10-21 05:56] LABS: Alanine Aminotransferase 13 U/L (6-50); Albumin Level 2.9 g/dL (3.5-5.1); Alkaline Phosphatase 79 U/L (38-126); Anion Gap 5 mmol/L (4-12); Aspartate Amino Transferase 31 U/L (17-59); Bilirubin,Total 0.4 mg/dL (0.2-1.3); Blood Urea Nitrogen 36 mg/dL (9-20); Calcium 8.2 mg/dL (8.4-10.2); Carbon Dioxide 33 mmol/L (22-30); Chloride 96 mmol/L (98-107); Estimated CRCL calculation 21 ml/min; Estimated Glomerular Filt Rate 23; Glucose 118 mg/dL (65-110); Potassium 3.6 mmol/L (3.4-5.0); Sodium 134 mmol/L (137-145); Total Protein 6.3 g/dL (6.3-8.2)
[2024-10-21] MEDS: AMPICILLIN 2 GM/NS 100 ML 2 GM/100 ML BAG IVPB ×3 (06:06→21:19)
--- NOTE | 2024-10-21 08:18 | PM.IMPN ---
Progress Note: A&P Assessment and Plan (1) S/P cholecystectomy: Code(s): Z90.49 - Acquired absence of other specified parts of digestive tract Status: Acute Assessment and Plan: s/p OR 10/[address] Brennan for infected gallbladder, gallbladder hydrops. Intraop bleeding s/p 1 unit of PRBC. Bood count now stable. HIDA scan no evidence of bleeding post op. NIA drain with minimal serosanguinous drainage PLAN -- Antibiotics for bacteremia as noted: Ampicillin, Ceftriaxone, and Metronidazole --Resumed diet and tolerating. Had a BM 10/21 --Type and screen active 10/20 --Resume Plavix in AM, ok per surgery recs --Transfuse for hgb <7, s/p 1 unite 10/18 --Heparin drip off post op. OK to restart heparin drip today per surgery recs (2) Bacteremia: Code(s): R78.81 - Bacteremia Status: Acute Assessment and Plan: LABS 10/04 Blood culutre 1 enterococcus faecalis 10/05 Blood cultures 05/27 enterococcus faecalis 10/05 Fungal cx--NGTD 10/05 Gallbladder culture enteroccus species 10/08 Blood cultures 05/27 No growth Antbiotics Treated with empiric Vanc and Ceftriaxone, changed to Ampicillin and Gentamycin 10/07 --Continue Ampicillin, Ceftriaxone, and Metronidazole (3) Acute DVT (deep venous thrombosis): Code(s): I82.409 - Acute embolism and thrombosis of unspecified deep veins of unspecified lower extremity Status: Acute Assessment and Plan: Acute peroneal DVT on dopplers 10/17. Started heparin drip and held for surgery --Restart heparin drip without a bolus --When therapeutic, can switch to oral anticoagulation (4) Acute kidney injury superimposed on CKD: Code(s): N17.9 - Acute kidney failure, unspecified; N18.9 - Chronic kidney disease, unspecified Status: Acute Assessment and Plan: Patient has chronic kidney disease stage 4 with acute kidney injury. Most likely prerenal due to intervascular volume depletion. Initially held Lasix and rehydrated, fluids at 75ml/hr. Nephrology was consulted from the ER. 10/02- cr/bun 2.96/100, peaked 10/05: Cr/BUN: 3.54/94. Has been fluctuating, but stable at 40/2.64 on furosemide side 10/09. 09/30 UA trace protein. 10/01 protein/creat ratio 0.36 - Continue flomax --continue furosemide 20mg daily --Nephrology following, appreciate recommendations (5) Type 2 diabetes mellitus with hyperglycemia, without long-term current use of insulin: Code(s): E11.65 - Type 2 diabetes mellitus with hyperglycemia Status: Chronic Assessment and Plan: Holding Actos -Moderate dose sliding scale insulin with Accu-Cheks a.c. HS and hypoglycemia protocol. -Glucose has been stable during stay (6) Elevated brain natriuretic peptide (BNP) level: Code(s): R79.89 - Other specified abnormal findings of blood chemistry Status: Acute Assessment and Plan: LABS: 10/11: BNP 9,700. Lasix 40 mg ivp x 1 given. Trending down with furosemide 40mg BID and creatinine improving. 10/13 Echocardiogram showed: Summary 1. Definity contrast administered improved wall motion interpretation. 2. Left ventricular chamber dimension is normal. 3. Left ventricular systolic function is normal, estimated at 60-65. 4. There is moderate concentric increased left ventricular wall thickness. 5. The left ventricular diastolic function is grade I diastolic dysfunction. 6. E/e' 15 is elevated. 7. Left atrial chamber dimension is mildly enlarged. 8. 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 Consider ADOLFO if clinically indicated. 9. There is moderate to severe mitral valve regurgitation. 10. Circumferential echogenic mass measuring 1.4 cm x 0.8 cm attached to left atrial side of mitral valve annulus which probably calcified mass. There is an additional small calcified echogenic mass attached to left ventricular side of posterior mitral valve leaflet. Probably calcifications more likely than vegetations. Consider ADOLFO if clinically indicated. 11. There is mild tricuspid valve regurgitation. 12. Mild pulmonary hypertension, estimated pulmonary arterial systolic pressure is 40 mmHg. 13. There is trace pulmonic regurgitation. 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 No shortness of breath. Thought to be more consistent with GI cause with reported indigestion and significant right upper quadrant pain. Cardiology has been following -Troponins 0.053, 0.080, 0.090 -Holding Antihypertensives and Plavix. --> Plavix on hold since 10/05 for lap torrie per surg. Initially deferred 05/27 bacteremia. Can resume per surgery. Restart 10/22 if no bleeding on heparin drip --Started heparin drip for acute DVT. On hold for surgery and can resuming today (9) Hyponatremia: Code(s): E87.1 - Hypo-osmolality and hyponatremia Status: Acute Assessment and Plan: Levels have been slightly ow since admission despite IVF NS. -Sodium chloride tablets 500mg started 10/06 and sodium improved from 131<136. Has been 131-136 in the last week -Trending with daily labs. Decrease sodium tabs as able (10) Antiplatelet or antithrombotic long-term use: Code(s): Z79.02 - retirement (current) use of antithrombotics/antiplatelets Status: Chronic Assessment and Plan: Pt with hx of pacemaker and plavix long-term use. Plavix on hold, last dose 10/12. --Start heparin drip. Resume plavix in AM if blood count stable overnight (11) Acute pain: Code(s): R52 - Pain, unspecified Status: Acute Assessment and Plan: Acute on chronic pain. High risk medication use with IV opiates for pain --Continue home morphine 15 mg PO --Tylenol TID prn --Morphine IR, Morphine 3-5mg IV prn --Bowel regimen: miralax Time Spent With Patient Time: 54 minutes Subjective Date/time seen: 10/21/24 08:18 Interval history: Blood count stable overnight Has been getting up out of bed and not dizzy Last BM today Patient has had a prolonged hospitalization, almost 30 days. He needs continued hospitalization to monitor for bleeding post op while restarting anticoagulation for acute DVT. Also on IV antibiotics. Review of Systems Review of Systems: 12 systems were reviewed with pertinent positives and negatives per HPI. Except as documented in the HPI, all other systems were reviewed and are negative. All systems reviewed & are unremarkable except as noted in HPI and below Exam Narrative: General - Awake and alert. No acute distress Eyes - PERRLA, EOM intact ENT - No thrush, No erythema Neck - No noticeable or palpable swelling Lymph Nodes - No lymphadenopathy Cardiovascular - RRR, +murmur, no JVD Lungs: Rare crackles bilateral bases, No wheezing, use of accessory muscles Skin - Skin warm and dry, no wounds or rashes Abdomen - Normal bowel sounds, abdomen soft and nontender to light palpation, mild distention NIA drain with a small amount of serosanguineous drainage. Extremities - Bilateral lower extremity edema, R>L, no cyanosis or clubbing Musculoskeletal - 5/5 strength, normal range of motion, no swollen or erythematous joints. Neurological ? Alert and oriented x 3, CN 2-12 grossly intact. Psych: Normal mood and affect Objective Data Vital Signs Vital Signs: Vital Signs - 24 hr 10/20/24 09:10 10/20/24 15:44 10/20/24 20:00 Temperature 97.8 F Pulse Rate 72 Respiratory Rate 20 Blood Pressure 123/49 L Pulse Oximetry 95 91 Oxygen Delivery Room Air Room Air 10/20/24 20:33 10/21/24 05:10 Temperature 97.9 F 98.2 F Pulse Rate 77 78 Respiratory Rate 20 20 Blood Pressure 147/64 H 134/58 L Pulse Oximetry 91 93 Oxygen Delivery Intake/Output Intake/Output: Intake & Output 10/18/24 10/19/24 10/20/24 10/21/24 23:59 23:59 23:59 23:59 Intake Total 1693.6 2180 2070 500 Output Total 2100 830 1065 850 Balance -406.4 1350 1005 -350 Meds/Results Medications: Active Medications Generic Name Dose Route Start Last Admin Trade Name Freq PRN Reason Stop Dose Admin Acetaminophen 500 mg 10/18/24 18:55 10/20/24 12:38 Acetaminophen 500 Mg Tablet PO 500 mg Q6H PRN Administration Pain Rated 1-3 Albuterol 2 puff 10/03/24 15:40 10/04/24 09:06 Albuterol Sulfate (*Sp) Aerosol 1 Puff INHALATION 2 puff Q6HRT PRN Administration Shortness Of Breath Or Wheezing Clopidogrel Bisulfate 75 mg 10/01/24 09:00 10/12/24 08:42 Clopidogrel Bisulfate 75 Mg Tablet PO 75 mg DAILY VU Administration Dextrose 12.5 gm 09/30/24 20:29 Dextrose 50% 25 Gm/50 Ml Syringe IV PUSH PRN PRN Hypoglycemia Protocol Docusate Sodium 100 mg 10/01/24 09:00 10/20/24 09:15 Docusate Sodium 100 Mg Capsule PO 100 mg DAILY VU Administration Ezetimibe 10 mg 10/01/24 09:00 10/20/24 09:15 Ezetimibe 10 Mg Tablet PO 10 mg DAILY VU Administration Epoetin Gordo-epbx 10,000 units 10/16/24 09:00 10/20/24 09:16 Epoetin [place]-Epbx 10,000 Units/Ml Vial SUB-Q 10,000 units TUTHSA@09 VU Administration Finasteride 5 mg 10/01/24 09:00 10/20/24 09:15 Finasteride 5 Mg Tablet PO 5 mg DAILY VU Administration Fluticasone Propionate 2 spray 09/30/24 20:28 10/14/24 08:33 Fluticasone Propionate 0.05% Na Spr 16 Gm Btl (*Bkc) NASAL 2 spray DAILY PRN Administration allergy symptoms Furosemide 40 mg 10/09/24 09:00 10/20/24 17:18 Furosemide 40 Mg Tablet PO 40 mg BID VU Administration Glucagon 1 mg 09/30/24 20:29 Glucagon For Inj 1 Mg Vial IM PRN PRN Hypoglycemia Protocol Glucose 15 gm 09/30/24 20:29 Glucose Oral Gel 15 Gm Of Glucse In 37.5 Gm Tube PO PRN PRN Hypoglycemia Protocol Heparin Sodium (Porcine) 5,000 units 09/30/24 21:00 10/20/24 21:43 Heparin Sodium 5,000 Units/Ml Vial SUB-Q 5,000 units Q12HR VU Administration Heparin Sodium (Porcine) 4,000 units 10/17/24 13:37 Heparin Sodium 5,000 Units/Ml Vial IV PUSH PRN PRN aPTT less than 55 seconds Heparin Sodium (Porcine) 3,000 units 10/17/24 13:37 10/17/24 22:02 Heparin Sodium 5,000 Units/Ml Vial IV PUSH 3,000 units PRN PRN Administration aPTT 55 - 70 seconds Dextrose 1,000 mls @ 100 mls/hr 09/30/24 20:29 Dextrose 5% 1,000 Ml IVPB PRN PRN Hypoglycemia Protocol Ceftriaxone Sodium 2 gm in 100 mls @ 200 mls/hr 10/08/24 14:00 10/20/24 14:05 Rocephin 2 Gm/Ns 100 Ml IVPB Infused Q24H VU Infusion Ampicillin Sodium 2 gm in 100 mls @ 200 mls/hr 10/16/24 14:00 10/21/24 06:06 Ampicillin 2 Gm/Ns 100 Ml IVPB 10/22/24 23:59 200 mls/hr Q8H VU Administration Heparin Sodium/Dextrose 25,000 units in 250 mls @ 12 mls/hr 10/17/24 13:40 10/18/24 05:53 Heparin Sodium/D5w 100 Units/Ml IV CONT 1,200 units/hr .[id number] VU 12 mls/hr Titration Protocol 1,200 UNITS/HR Insulin Aspart 1 - 3 units 09/30/24 21:00 10/19/24 21:41 Insulin Aspart (*Bkc) 100 Units/Ml SUB-Q Not Given HS VU Protocol Insulin Aspart 3 - 6 units 10/01/24 08:00 10/20/24 17:17 Insulin Aspart (*Bkc) 100 Units/Ml SUB-Q Not Given [facility] Protocol Metronidazole 500 mg 10/20/24 22:00 10/21/24 05:56 Metronidazole 500 Mg Tablet PO 500 mg Q8HR VU Administration Miscellaneous Information 0 each 10/18/24 00:01 Please Renew _.Ceftriaxone, Met Per Autost[employer] Procedure, It Will Discontinue If Not Renewed XX 11/17/24 00:00 CLARIFY VU Morphine Sulfate 15 mg 10/07/24 09:53 10/21/24 04:31 Morphine Sulfate (*Crx) 15 Mg Tab Ir PO 15 mg Q4H PRN Administration Pain Rated 7-10 Morphine Sulfate 3 mg 10/18/24 18:55 10/19/24 05:55 Morphine Sulfate (*Crx) 2 Mg/Ml Inj IV PUSH 3 mg Q2H PRN Administration Breakthrough Pain Rated 4-6 or NPO Morphine Sulfate 5 mg 10/18/24 18:55 10/19/24 01:03 Morphine Sulfate (*Crx) 4 Mg/Ml Inj IV PUSH 5 mg Q2H PRN Administration Breakthrough Pain Rated 7-10 or NPO Naloxone HCl 0.1 mg 10/18/24 18:55 Naloxone Hcl 0.4 Mg/Ml Vial IV PUSH Q2M PRN Opiate Reversal Ondansetron HCl 4 mg 09/30/24 19:02 10/12/24 11:54 Ondansetron Inj 4 Mg/2 Ml Vial IV PUSH 4 mg Q4H PRN Administration Nausea Pantoprazole Sodium 40 mg 10/07/24 09:00 10/20/24 09:15 Pantoprazole 40 Mg Tablet PO 40 mg QAM VU Administration Polyethylene Glycol 17 gm 10/10/24 13:40 10/20/24 09:16 Polyethylene Glycol 3350 17 Gm Powd.Pack PO 17 gm QAM VU Administration Saccharomyces Boulardii 250 mg 10/11/24 17:00 10/20/24 17:19 Saccharomyces Boulardii 250 Mg Capsule PO 250 mg BID VU Administration Sodium Chloride 500 mg 10/06/24 17:00 10/20/24 17:19 Sodium Chloride 500 Mg Tablet PO 500 mg BID VU Administration Verapamil HCl 120 mg 09/30/24 21:00 10/20/24 21:33 Verapamil Hcl 120 Mg Tablet Immed Release PO 120 mg Q12HR VU Administration Radiology Results: ITS Impressions Abdomen/Pelvis CT 09/30/24 19:00 IMPRESSION: Gallbladder hydrops without inflammatory change. Dilated common bile duct, measuring 14 mm. No obstructing stone or mass detected. Correlate with biliary labs. 3.4 cm fusiform infrarenal abdominal aortic aneurysm. Consider follow-up in 3 years. Upper Quadrant Ultrasound 10/01/24 08:43 IMPRESSION: 1. Cholelithiasis with a normal-appearing gallbladder but with mild intra and extrahepatic biliary ductal dilation which raises concern for a nonvisualized distal obstructing choledocholithiasis. Correlate with liver function tests and if clinically indicated could consider further evaluation with either MRCP or ERCP. Cholecystostomy 10/05/24 16:57 IMPRESSION: 1. Successful ultrasound-guided cholecystostomy tube placement. 2. 35 mL bile was sent for aerobic, anaerobic, and fungal cultures. 3. The catheter will be managed by Dr. Brennan. Cholangiogram 10/12/24 14:45 IMPRESSION: 1. Cholelithiasis and choledocholithiasis obstructing distal choledocholithiasis with no observed contrast emptying into the duodenum. The cystic duct is patent. Consider ERCP for stone extraction and sphincterotomy to relieve the distal ductal obstruction. Chest X-Ray 10/17/24 11:39 IMPRESSION: No significant change from previous examination. Venous Doppler Study 10/17/24 13:00 IMPRESSION: 1. Right [id number] deep venous thrombosis in one of the paired right peroneal veins. Findings were discussed with Abeba crum, the nurse caring for the patient, at 1:07 PM. 2. No deep venous thrombosis in the left lower limb. 3. Small right [place]'s cyst. Hepatobiliary Scan Nuclear Medicine 10/19/24 11:59 IMPRESSION: 1. Normal post cholecystectomy hepatobiliary scan with no bile leak. Labs Labs: Laboratory Results - last 24 hr 10/17/24 10/20/24 10/20/24 08:45 12:34 16:53 WBC RBC Hgb Hct MCV MCH MCHC RDW Plt Count MPV Immature Gran % (Auto) Neut % (Auto) Lymph % (Auto) Lamb % (Auto) Eos % (Auto) Baso % (Auto) Lymph # (Auto) Lamb # (Auto) Eos # (Auto) Baso # (Auto) Abs Immat Gran (auto) Absolute Neuts (auto) Absolute Nucleated RBC Nucleated RBC % Sodium Potassium Chloride Carbon Dioxide Anion Gap BUN Creatinine Estim Creat Clear Calc Estimated GFR Glucose POC Capillary Glucose 196 H 152 H Calcium Phosphorus Total Bilirubin AST ALT Alkaline Phosphatase Total Protein Albumin Crossmatch See Detail 10/20/24 10/21/24 10/21/24 20:27 05:18 07:33 WBC 11.2 H RBC 3.01 L Hgb 8.8 L Hct 29.0 L MCV 96.3 MCH 29.2 MCHC 30.3 L RDW 15.3 H Plt Count 452 H MPV 8.6 Immature Gran % (Auto) 4.4 H Neut % (Auto) 68.2 Lymph % (Auto) 10.8 L Lamb % (Auto) 13.4 H Eos % (Auto) 2.5 Baso % (Auto) 0.7 Lymph # (Auto) 1.20 Lamb # (Auto) 1.5 H Eos # (Auto) 0.3 Baso # (Auto) 0.1 Abs Immat Gran (auto) 0.49 H Absolute Neuts (auto) 7.6 H Absolute Nucleated RBC 0.000 Nucleated RBC % 0.0 Sodium 134 L Potassium 3.6 Chloride 96 L Carbon Dioxide 33 H Anion Gap 5 BUN 36 H Creatinine 2.62 H Estim Creat Clear Calc 21 Estimated GFR 23 L Glucose 118 H POC Capillary Glucose 153 H 112 H Calcium 8.2 L Phosphorus 3.1 Total Bilirubin 0.4 AST 31 ALT 13 Alkaline Phosphatase 79 Total Protein 6.3 Albumin 2.9 L Crossmatch Quality VTE Prophylaxis VTE prophylaxis: mechanical ordered and pharmacologic ordered Hospitalist MIPS Advance Care Plan I have confirmed that the patient's Advanced Care Plan is present, code status is documented, or surrogate decision maker is listed in patient medical record.: Yes Medication Reconciliation I have utilized all available resources to obtain, update and review the patients current medications (includes all prescriptions, OTC, herbals, cannabis, and nutritional supplements).: Yes
--- NOTE | 2024-10-21 08:25 | P.PNNP_ITS ---
Progress Note: A&P Assessment and Plan (1) Acute kidney injury: Code(s): N17.9 - Acute kidney failure, unspecified Status: Acute Assessment and Plan: * improvement noted and is back to baseline * evaluation to date noted: * admission CT of A/P with no suspicious mass, obstructing stone, or hydronephrosis * prerenal urine electrolytes (by FeUrea) * urine eosinophils negative * mild proteinuria * normal/low CPK * UA without evidence of infection * suspect multifactorial etiology: * prerenal factors * infection (bacteremia + cholecystitis) * he has trace edema. Will continue furosemide 40mg bid * Creatinine is up and down between 2.5 and 2.7. * Continue current diuretic dose. Check a creatinine in the morning. * Low threshold for going p.r.n. on the furosemide going forward (2) Stage 4 chronic kidney disease: Code(s): N18.4 - Chronic kidney disease, stage 4 (severe) Status: Chronic Assessment and Plan: * slow and progressive decline noted * GFR ~ 22 to 23 in * GFR ~ 20 to 21 in * GFR ~ 18 by July 2024 labs * creatinine has been running anywhere from 2.4 - 3.2mg/dl in the last 6 months * probably at a new baseline now (3) Azotemia: Code(s): R79.89 - Other specified abnormal findings of blood chemistry Status: Acute Assessment and Plan: improving (4) Bacteremia: Code(s): R78.81 - Bacteremia Status: Acute Assessment and Plan: * blood culture results noted: * 10/04 blood cultures - Enterococcus faecalis * 10/05 blood cultures - Enterococcus faecalis * presumed source = gallbladder * gallbladder/bile culture - Enterococcus faecalis * on ampicillin and ceftriaxone * Echo results (10/13) noted: * left ventricular systolic function is normal, estimated at 60-65% * left ventricular diastolic function is grade I diastolic dysfunction * 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, 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 * moderate to severe mitral valve regurgitation * circumferential echogenic mass measuring 1.4 cm x 0.8 cm attached to left atrial side of mitral valve annulus which probably calcified mass; there is an additional small calcified echogenic mass attached to left ventricular side of posterior mitral valve leaflet -- probably calcifications more likely than vegetations; consider ADOLFO if clinically indicated * mild tricuspid valve regurgitation * mild pulmonary hypertension, estimated pulmonary arterial systolic pressure is 40 mmHg * trace pulmonic regurgitation * Cardiology recommendations noted -- patient not interested in ADOLFO at this time. * repeat blood cultures (10/08) are final and negative (5) Gallbladder hydrops: Code(s): K82.1 - Hydrops of gallbladder Status: Inactive Assessment and Plan: * status post torrie * feels better since procedure (6) Anemia: Code(s): D64.9 - Anemia, unspecified Status: Acute Assessment and Plan: * due to combo of LEROY, CKD, acute illness/infection and possibly previous IVFs * hb up and down in the high 8s and low 9s (7) Hypertension: Code(s): I10 - Essential (primary) hypertension Status: Chronic Assessment and Plan: * Systolic ranging 120-147 * Continue same medication (8) Type 2 diabetes mellitus with hyperglycemia, without long-term current use of insulin: Code(s): E11.65 - Type 2 diabetes mellitus with hyperglycemia Status: Chronic Assessment and Plan: * follow accu-cheks * glycemic control per hospitalist (9) Hyponatremia: Code(s): E87.1 - Hypo-osmolality and hyponatremia Status: Acute Assessment and Plan: sodium slightly low since admission. Possibly due to illness or diuretics will follow this along Subjective Date/time seen: 10/21/24 08:25 Interval history: Patient is feeling a little bit better. Hungry for breakfast. No chest pain or shortness of breath Exam Narrative: General: elderly but WD/WN male in NAD Heart: normal S1 and S2; no rub or gallop Lungs: clear to auscultation Abdomen: soft, nontender, nondistended, positive bowel sounds Extremities: Trace bilateral edema Skin: no rash Objective Data Vital Signs Vital Signs: Vital Signs - 24 hr 10/20/24 09:10 10/20/24 15:44 10/20/24 20:00 Temperature 97.8 F Pulse Rate 72 Respiratory Rate 20 Blood Pressure 123/49 L Pulse Oximetry 95 91 Oxygen Delivery Room Air Room Air 10/20/24 20:33 10/21/24 05:10 Temperature 97.9 F 98.2 F Pulse Rate 77 78 Respiratory Rate 20 20 Blood Pressure 147/64 H 134/58 L Pulse Oximetry 91 93 Oxygen Delivery Intake/Output Intake/Output: Intake & Output 10/18/24 10/19/24 10/20/24 10/21/24 23:59 23:59 23:59 23:59 Intake Total 1693.6 2180 2070 500 Output Total 2100 830 1065 850 Balance -406.4 1350 1005 -350 Meds/Results Medications: Active Medications Generic Name Dose Route Start Last Admin Trade Name Freq PRN Reason Stop Dose Admin Acetaminophen 500 mg 10/18/24 18:55 10/20/24 12:38 Acetaminophen 500 Mg Tablet PO 500 mg Q6H PRN Administration Pain Rated 1-3 Albuterol 2 puff 10/03/24 15:40 10/04/24 09:06 Albuterol Sulfate (*Sp) Aerosol 1 Puff INHALATION 2 puff Q6HRT PRN Administration Shortness Of Breath Or Wheezing Clopidogrel Bisulfate 75 mg 10/01/24 09:00 10/12/24 08:42 Clopidogrel Bisulfate 75 Mg Tablet PO 75 mg DAILY VU Administration Dextrose 12.5 gm 09/30/24 20:29 Dextrose 50% 25 Gm/50 Ml Syringe IV PUSH PRN PRN Hypoglycemia Protocol Docusate Sodium 100 mg 10/01/24 09:00 10/20/24 09:15 Docusate Sodium 100 Mg Capsule PO 100 mg DAILY VU Administration Ezetimibe 10 mg 10/01/24 09:00 10/20/24 09:15 Ezetimibe 10 Mg Tablet PO 10 mg DAILY VU Administration Epoetin Gordo-epbx 10,000 units 10/16/24 09:00 10/20/24 09:16 Epoetin Gordo-Epbx 10,000 Units/Ml Vial SUB-Q 10,000 units TUTA@09 VU Administration Finasteride 5 mg 10/01/24 09:00 10/20/24 09:15 Finasteride 5 Mg Tablet PO 5 mg DAILY VU Administration Fluticasone Propionate 2 spray 09/30/24 20:28 10/14/24 08:33 Fluticasone Propionate 0.05% Na Spr 16 Gm Btl (*Bkc) NASAL 2 spray DAILY PRN Administration allergy symptoms Furosemide 40 mg 10/09/24 09:00 10/20/24 17:18 Furosemide 40 Mg Tablet PO 40 mg BID VU Administration Glucagon 1 mg 09/30/24 20:29 Glucagon For Inj 1 Mg Vial IM PRN PRN Hypoglycemia Protocol Glucose 15 gm 09/30/24 20:29 Glucose Oral Gel 15 Gm Of Glucse In 37.5 Gm Tube PO PRN PRN Hypoglycemia Protocol Heparin Sodium (Porcine) 5,000 units 09/30/24 21:00 10/20/24 21:43 Heparin Sodium 5,000 Units/Ml Vial SUB-Q 5,000 units Q12HR VU Administration Heparin Sodium (Porcine) 4,000 units 10/17/24 13:37 Heparin Sodium 5,000 Units/Ml Vial IV PUSH PRN PRN aPTT less than 55 seconds Heparin Sodium (Porcine) 3,000 units 10/17/24 13:37 10/17/24 22:02 Heparin Sodium 5,000 Units/Ml Vial IV PUSH 3,000 units PRN PRN Administration aPTT 55 - 70 seconds Dextrose 1,000 mls @ 100 mls/hr 09/30/24 20:29 Dextrose 5% 1,000 Ml IVPB PRN PRN Hypoglycemia Protocol Ceftriaxone Sodium 2 gm in 100 mls @ 200 mls/hr 10/08/24 14:00 10/20/24 14:05 Rocephin 2 Gm/Ns 100 Ml IVPB Infused Q24H VU Infusion Ampicillin Sodium 2 gm in 100 mls @ 200 mls/hr 10/16/24 14:00 10/21/24 06:06 Ampicillin 2 Gm/Ns 100 Ml IVPB 10/22/24 23:59 200 mls/hr Q8H VU Administration Heparin Sodium/Dextrose 25,000 units in 250 mls @ 12 mls/hr 10/17/24 13:40 10/18/24 05:53 Heparin Sodium/D5w 100 Units/Ml IV CONT 1,200 units/hr .[id number] VU 12 mls/hr Titration Protocol 1,200 UNITS/HR Insulin Aspart 1 - 3 units 09/30/24 21:00 10/19/24 21:41 Insulin Aspart (*Bkc) 100 Units/Ml SUB-Q Not Given HS VU Protocol Insulin Aspart 3 - 6 units 10/01/24 08:00 10/20/24 17:17 Insulin Aspart (*Bkc) 100 Units/Ml SUB-Q Not Given TIDWM [facility] Protocol Metronidazole 500 mg 10/20/24 22:00 10/21/24 05:56 Metronidazole 500 Mg Tablet PO 500 mg Q8HR VU Administration Miscellaneous Information 0 each 10/18/24 00:01 Please Renew _.Ceftriaxone, Met Per [employer] Procedure, It Will Discontinue If Not Renewed XX 11/17/24 00:00 CLARIFY [facility] Morphine Sulfate 15 mg 10/07/24 09:53 10/21/24 04:31 Morphine Sulfate (*Crx) 15 Mg Tab Ir PO 15 mg Q4H PRN Administration Pain Rated 7-10 Morphine Sulfate 3 mg 10/18/24 18:55 10/19/24 05:55 Morphine Sulfate (*Crx) 2 Mg/Ml Inj IV PUSH 3 mg Q2H PRN Administration Breakthrough Pain Rated 4-6 or NPO Morphine Sulfate 5 mg 10/18/24 18:55 10/19/24 01:03 Morphine Sulfate (*Crx) 4 Mg/Ml Inj IV PUSH 5 mg Q2H PRN Administration Breakthrough Pain Rated 7-10 or NPO Naloxone HCl 0.1 mg 10/18/24 18:55 Naloxone Hcl 0.4 Mg/Ml Vial IV PUSH Q2M PRN Opiate Reversal Ondansetron HCl 4 mg 09/30/24 19:02 10/12/24 11:54 Ondansetron Inj 4 Mg/2 Ml Vial IV PUSH 4 mg Q4H PRN Administration Nausea Pantoprazole Sodium 40 mg 10/07/24 09:00 10/20/24 09:15 Pantoprazole 40 Mg Tablet PO 40 mg QAM VU Administration Polyethylene Glycol 17 gm 10/10/24 13:40 10/20/24 09:16 Polyethylene Glycol 3350 17 Gm Powd.Pack PO 17 gm QAM VU Administration Saccharomyces Boulardii 250 mg 10/11/24 17:00 10/20/24 17:19 Saccharomyces Boulardii 250 Mg Capsule PO 250 mg BID VU Administration Sodium Chloride 500 mg 10/06/24 17:00 10/20/24 17:19 Sodium Chloride 500 Mg Tablet PO 500 mg BID VU Administration Verapamil HCl 120 mg 09/30/24 21:00 10/20/24 21:33 Verapamil Hcl 120 Mg Tablet Immed Release PO 120 mg Q12HR VU Administration Radiology Results: ITS Impressions Abdomen/Pelvis CT 09/30/24 19:00 IMPRESSION: Gallbladder hydrops without inflammatory change. Dilated common bile duct, measuring 14 mm. No obstructing stone or mass detected. Correlate with biliary labs. 3.4 cm fusiform infrarenal abdominal aortic aneurysm. Consider follow-up in 3 years. Upper Quadrant Ultrasound 10/01/24 08:43 IMPRESSION: 1. Cholelithiasis with a normal-appearing gallbladder but with mild intra and extrahepatic biliary ductal dilation which raises concern for a nonvisualized distal obstructing choledocholithiasis. Correlate with liver function tests and if clinically indicated could consider further evaluation with either MRCP or ERCP. Cholecystostomy 10/05/24 16:57 IMPRESSION: 1. Successful ultrasound-guided cholecystostomy tube placement. 2. 35 mL bile was sent for aerobic, anaerobic, and fungal cultures. 3. The catheter will be managed by Dr. Brennan. Cholangiogram 10/12/24 14:45 IMPRESSION: 1. Cholelithiasis and choledocholithiasis obstructing distal choledocholithiasis with no observed contrast emptying into the duodenum. The cystic duct is patent. Consider ERCP for stone extraction and sphincterotomy to relieve the distal ductal obstruction. Chest X-Ray 10/17/24 11:39 IMPRESSION: No significant change from previous examination. Venous Doppler Study 10/17/24 13:00 IMPRESSION: 1. Right mxibd-ild-hsss deep venous thrombosis in one of the paired right peroneal veins. Findings were discussed with Abeba crum, the nurse caring for the patient, at 1:07 PM. 2. No deep venous thrombosis in the left lower limb. 3. Small right Ren[place]'s cyst. Hepatobiliary Scan Nuclear Medicine 10/19/24 11:59 IMPRESSION: 1. Normal post cholecystectomy hepatobiliary scan with no bile leak. Labs Labs: Laboratory Results - last 24 hr 10/17/24 10/20/24 10/20/24 08:45 12:34 16:53 WBC RBC Hgb Hct MCV MCH MCHC RDW Plt Count MPV Immature Gran % (Auto) Neut % (Auto) Lymph % (Auto) [place] % (Auto) Eos % (Auto) Baso % (Auto) Lymph # (Auto) [place] # (Auto) Eos # (Auto) Baso # (Auto) Abs Immat Gran (auto) Absolute Neuts (auto) Absolute Nucleated RBC Nucleated RBC % Sodium Potassium Chloride Carbon Dioxide Anion Gap BUN Creatinine Estim Creat Clear Calc Estimated GFR Glucose POC Capillary Glucose 196 H 152 H Calcium Phosphorus Total Bilirubin AST ALT Alkaline Phosphatase Total Protein Albumin Crossmatch See Detail 10/20/24 10/21/24 10/21/24 20:27 05:18 07:33 WBC 11.2 H RBC 3.01 L Hgb 8.8 L Hct 29.0 L MCV 96.3 MCH 29.2 MCHC 30.3 L RDW 15.3 H Plt Count 452 H MPV 8.6 Immature Gran % (Auto) 4.4 H Neut % (Auto) 68.2 Lymph % (Auto) 10.8 L [place] % (Auto) 13.4 H Eos % (Auto) 2.5 Baso % (Auto) 0.7 Lymph # (Auto) 1.20 [place] # (Auto) 1.5 H Eos # (Auto) 0.3 Baso # (Auto) 0.1 Abs Immat Gran (auto) 0.49 H Absolute Neuts (auto) 7.6 H Absolute Nucleated RBC 0.000 Nucleated RBC % 0.0 Sodium 134 L Potassium 3.6 Chloride 96 L Carbon Dioxide 33 H Anion Gap 5 BUN 36 H Creatinine 2.62 H Estim Creat Clear Calc 21 Estimated GFR 23 L Glucose 118 H POC Capillary Glucose 153 H 112 H Calcium 8.2 L Phosphorus 3.1 Total Bilirubin 0.4 AST 31 ALT 13 Alkaline Phosphatase 79 Total Protein 6.3 Albumin 2.9 L Crossmatch
[2024-10-21] MEDS: SODIUM CHLORIDE 500 MG TABLET PO ×2 (08:51→17:19)
[2024-10-21] MEDS: SACCHAROMYCES BOULARDII 250 MG CAPSULE PO ×2 (08:51→17:19)
[2024-10-21] MEDS: DOCUSATE SODIUM 100 MG CAPSULE PO (08:51)
[2024-10-21] MEDS: FUROSEMIDE 40 MG TABLET PO ×2 (08:51→17:19)
[2024-10-21] MEDS: PANTOPRAZOLE 40 MG TABLET PO (08:51)
[2024-10-21] MEDS: VERAPAMIL HCL 120 MG TABLET IMMED RELEASE PO ×2 (08:51→21:20)
[2024-10-21] MEDS: FINASTERIDE 5 MG TABLET PO (08:51)
[2024-10-21] MEDS: EZETIMIBE 10 MG TABLET PO (08:51)
[2024-10-21] MEDS: cefTRIAXone 2 GM/NS 100 ML 2 GM/100 ML BAG IVPB (13:34)
--- NOTE | 2024-10-21 14:32 | PM.PNGS ---
Progress Note: A&P Assessment and Plan (1) Choledocholithiasis with acute cholecystitis: Code(s): K80.42 - Calculus of bile duct with acute cholecystitis without obstruction Status: Acute Assessment and Plan: Tolerating diet. H&H overall stable and no signs of active bleeding. OK to resume anticoagulation today. (2) Enterococcal bacteremia: Code(s): R78.81 - Bacteremia; B95.2 - Enterococcus as the cause of diseases classified elsewhere Status: Acute Assessment and Plan: Continues on ampicillin antibiotics with ceftriaxone. (3) DVT (deep venous thrombosis): Code(s): I82.409 - Acute embolism and thrombosis of unspecified deep veins of unspecified lower extremity Status: Acute Assessment and Plan: Peroneal vein DVT, minimal risk for pulmonary embolism (4) Chronic anticoagulation: Code(s): Z79.01 - intermediate card tender (current) use of anticoagulants Status: Acute (5) Stage 4 chronic kidney disease: Code(s): N18.4 - Chronic kidney disease, stage 4 (severe) Status: Chronic (6) Antiplatelet or antithrombotic long-term use: Code(s): Z79.02 - intermediate card tender (current) use of antithrombotics/antiplatelets Status: Chronic Assessment and Plan: Resume Plavix. Subjective Subjective Date/Time Seen: 10/21/24 14:32 Interval history: Tolerating diet. Minimal drain output. Up to chair today. Exam Const: General: comfortable and awake GI: Inspection: no abdominal wall ecchymosis and incision (Healing well, serosanguineous NIA output) GI Palp: Yes Soft to palpation and Yes Tenderness to palpation present (GI) Objective Data Vital Signs Vital Signs: Vital Signs - 24 hr 10/20/24 15:44 10/20/24 20:00 10/20/24 20:33 Temperature 97.8 F 97.9 F Pulse Rate 72 77 Respiratory Rate 20 20 Blood Pressure 123/49 L 147/64 H Pulse Oximetry 95 91 91 Oxygen Delivery Room Air 10/21/24 05:10 Temperature 98.2 F Pulse Rate 78 Respiratory Rate 20 Blood Pressure 134/58 L Pulse Oximetry 93 Oxygen Delivery Intake/Output Intake/Output: Intake & Output 10/18/24 10/19/24 10/20/24 10/21/24 23:59 23:59 23:59 23:59 Intake Total 1693.6 2180 2070 1080 Output Total 2100 830 1065 1500 Balance -406.4 1350 1005 -420 Meds/Results Medications: Active Medications Generic Name Dose Route Start Last Admin Trade Name Freq PRN Reason Stop Dose Admin Acetaminophen 500 mg 10/18/24 18:55 10/20/24 12:38 Acetaminophen 500 Mg Tablet PO 500 mg Q6H PRN Administration Pain Rated 1-3 Albuterol 2 puff 10/03/24 15:40 10/04/24 09:06 Albuterol Sulfate (*Sp) Aerosol 1 Puff INHALATION 2 puff Q6HRT PRN Administration Shortness Of Breath Or Wheezing Clopidogrel Bisulfate 75 mg 10/01/24 09:00 10/12/24 08:42 Clopidogrel Bisulfate 75 Mg Tablet PO 75 mg DAILY VU Administration Dextrose 12.5 gm 09/30/24 20:29 Dextrose 50% 25 Gm/50 Ml Syringe IV PUSH PRN PRN Hypoglycemia Protocol Docusate Sodium 100 mg 10/01/24 09:00 10/21/24 08:51 Docusate Sodium 100 Mg Capsule PO 100 mg DAILY VU Administration Ezetimibe 10 mg 10/01/24 09:00 10/21/24 08:51 Ezetimibe 10 Mg Tablet PO 10 mg DAILY VU Administration Epoetin Gordo-epbx 10,000 units 10/16/24 09:00 10/20/24 09:16 Epoetin Gordo-Epbx 10,000 Units/Ml Vial SUB-Q 10,000 units TUTHSA@09 VU Administration Finasteride 5 mg 10/01/24 09:00 10/21/24 08:51 Finasteride 5 Mg Tablet PO 5 mg DAILY VU Administration Fluticasone Propionate 2 spray 09/30/24 20:28 10/14/24 08:33 Fluticasone Propionate 0.05% Na Spr 16 Gm Btl (*Bkc) NASAL 2 spray DAILY PRN Administration allergy symptoms Furosemide 40 mg 10/09/24 09:00 10/21/24 08:51 Furosemide 40 Mg Tablet PO 40 mg BID VU Administration Glucagon 1 mg 09/30/24 20:29 Glucagon For Inj 1 Mg Vial IM PRN PRN Hypoglycemia Protocol Glucose 15 gm 09/30/24 20:29 Glucose Oral Gel 15 Gm Of Glucse In 37.5 Gm Tube PO PRN PRN Hypoglycemia Protocol Heparin Sodium (Porcine) 5,000 units 09/30/24 21:00 10/21/24 08:51 Heparin Sodium 5,000 Units/Ml Vial SUB-Q 5,000 units Q12HR VU Administration Heparin Sodium (Porcine) 4,000 units 10/17/24 13:37 Heparin Sodium 5,000 Units/Ml Vial IV PUSH PRN PRN aPTT less than 55 seconds Heparin Sodium (Porcine) 3,000 units 10/17/24 13:37 10/17/24 22:02 Heparin Sodium 5,000 Units/Ml Vial IV PUSH 3,000 units PRN PRN Administration aPTT 55 - 70 seconds Dextrose 1,000 mls @ 100 mls/hr 09/30/24 20:29 Dextrose 5% 1,000 Ml IVPB PRN PRN Hypoglycemia Protocol Ceftriaxone Sodium 2 gm in 100 mls @ 200 mls/hr 10/08/24 14:00 10/21/24 13:34 Rocephin 2 Gm/Ns 100 Ml IVPB 200 mls/hr Q24H VU Administration Ampicillin Sodium 2 gm in 100 mls @ 200 mls/hr 10/16/24 14:00 10/21/24 14:24 Ampicillin 2 Gm/Ns 100 Ml IVPB 10/22/24 23:59 200 mls/hr Q8H VU Administration Heparin Sodium/Dextrose 25,000 units in 250 mls @ 12 mls/hr 10/17/24 13:40 10/18/24 05:53 Heparin Sodium/D5w 100 Units/Ml IV CONT 1,200 units/hr .[id number] VU 12 mls/hr Titration Protocol 1,200 UNITS/HR Insulin Aspart 1 - 3 units 09/30/24 21:00 10/21/24 08:41 Insulin Aspart (*Bkc) 100 Units/Ml SUB-Q Not Given HS VU Protocol Insulin Aspart 3 - 6 units 10/01/24 08:00 10/21/24 12:51 Insulin Aspart (*Bkc) 100 Units/Ml SUB-Q Not Given TIDWM VU Protocol Metronidazole 500 mg 10/20/24 22:00 10/21/24 13:39 Metronidazole 500 Mg Tablet PO 500 mg Q8HR VU Administration Miscellaneous Information 0 each 10/18/24 00:01 Please Renew _.Ceftriaxone, Met Per [employer] Procedure, It Will Discontinue If Not Renewed XX 11/17/24 00:00 CLARIFY VU Morphine Sulfate 15 mg 10/07/24 09:53 10/21/24 13:39 Morphine Sulfate (*Crx) 15 Mg Tab Ir PO 15 mg Q4H PRN Administration Pain Rated 7-10 Morphine Sulfate 3 mg 10/18/24 18:55 10/19/24 05:55 Morphine Sulfate (*Crx) 2 Mg/Ml Inj IV PUSH 3 mg Q2H PRN Administration Breakthrough Pain Rated 4-6 or NPO Morphine Sulfate 5 mg 10/18/24 18:55 10/19/24 01:03 Morphine Sulfate (*Crx) 4 Mg/Ml Inj IV PUSH 5 mg Q2H PRN Administration Breakthrough Pain Rated 7-10 or NPO Naloxone HCl 0.1 mg 10/18/24 18:55 Naloxone Hcl 0.4 Mg/Ml Vial IV PUSH Q2M PRN Opiate Reversal Ondansetron HCl 4 mg 09/30/24 19:02 10/12/24 11:54 Ondansetron Inj 4 Mg/2 Ml Vial IV PUSH 4 mg Q4H PRN Administration Nausea Pantoprazole Sodium 40 mg 10/07/24 09:00 10/21/24 08:51 Pantoprazole 40 Mg Tablet PO 40 mg QAM VU Administration Polyethylene Glycol 17 gm 10/10/24 13:40 10/21/24 08:45 Polyethylene Glycol 3350 17 Gm Powd.Pack PO 17 gm QAM VU Administration Saccharomyces Boulardii 250 mg 10/11/24 17:00 10/21/24 08:51 Saccharomyces Boulardii 250 Mg Capsule PO 250 mg BID VU Administration Sodium Chloride 500 mg 10/06/24 17:00 10/21/24 08:51 Sodium Chloride 500 Mg Tablet PO 500 mg BID VU Administration Verapamil HCl 120 mg 09/30/24 21:00 10/21/24 08:51 Verapamil Hcl 120 Mg Tablet Immed Release PO 120 mg Q12HR VU Administration Radiology Results: ITS Impressions Abdomen/Pelvis CT 09/30/24 19:00 IMPRESSION: Gallbladder hydrops without inflammatory change. Dilated common bile duct, measuring 14 mm. No obstructing stone or mass detected. Correlate with biliary labs. 3.4 cm fusiform infrarenal abdominal aortic aneurysm. Consider follow-up in 3 years. Upper Quadrant Ultrasound 10/01/24 08:43 IMPRESSION: 1. Cholelithiasis with a normal-appearing gallbladder but with mild intra and extrahepatic biliary ductal dilation which raises concern for a nonvisualized distal obstructing choledocholithiasis. Correlate with liver function tests and if clinically indicated could consider further evaluation with either MRCP or ERCP. Cholecystostomy 10/05/24 16:57 IMPRESSION: 1. Successful ultrasound-guided cholecystostomy tube placement. 2. 35 mL bile was sent for aerobic, anaerobic, and fungal cultures. 3. The catheter will be managed by Dr. Brennan. Cholangiogram 10/12/24 14:45 IMPRESSION: 1. Cholelithiasis and choledocholithiasis obstructing distal choledocholithiasis with no observed contrast emptying into the duodenum. The cystic duct is patent. Consider ERCP for stone extraction and sphincterotomy to relieve the distal ductal obstruction. Chest X-Ray 10/17/24 11:39 IMPRESSION: No significant change from previous examination. Venous Doppler Study 10/17/24 13:00 IMPRESSION: 1. Right gvyos-jjy-efsw deep venous thrombosis in one of the paired right peroneal veins. Findings were discussed with Abeba crum, the nurse caring for the patient, at 1:07 PM. 2. No deep venous thrombosis in the left lower limb. 3. Small right [place]'s cyst. Hepatobiliary Scan Nuclear Medicine 10/19/24 11:59 IMPRESSION: 1. Normal post cholecystectomy hepatobiliary scan with no bile leak. Labs Labs: Laboratory Results - last 24 hr 10/17/24 10/20/24 10/20/24 08:45 16:53 20:27 WBC RBC Hgb Hct MCV MCH MCHC RDW Plt Count MPV Immature Gran % (Auto) Neut % (Auto) Lymph % (Auto) [place] % (Auto) Eos % (Auto) Baso % (Auto) Lymph # (Auto) [place] # (Auto) Eos # (Auto) Baso # (Auto) Abs Immat Gran (auto) Absolute Neuts (auto) Absolute Nucleated RBC Nucleated RBC % Sodium Potassium Chloride Carbon Dioxide Anion Gap BUN Creatinine Estim Creat Clear Calc Estimated GFR Glucose POC Capillary Glucose 152 H 153 H Calcium Phosphorus Total Bilirubin AST ALT Alkaline Phosphatase Total Protein Albumin Crossmatch See Detail 10/21/24 10/21/24 10/21/24 05:18 07:33 12:02 WBC 11.2 H RBC 3.01 L Hgb 8.8 L Hct 29.0 L MCV 96.3 MCH 29.2 MCHC 30.3 L RDW 15.3 H Plt Count 452 H MPV 8.6 Immature Gran % (Auto) 4.4 H Neut % (Auto) 68.2 Lymph % (Auto) 10.8 L [place] % (Auto) 13.4 H Eos % (Auto) 2.5 Baso % (Auto) 0.7 Lymph # (Auto) 1.20 [place] # (Auto) 1.5 H Eos # (Auto) 0.3 Baso # (Auto) 0.1 Abs Immat Gran (auto) 0.49 H Absolute Neuts (auto) 7.6 H Absolute Nucleated RBC 0.000 Nucleated RBC % 0.0 Sodium 134 L Potassium 3.6 Chloride 96 L Carbon Dioxide 33 H Anion Gap 5 BUN 36 H Creatinine 2.62 H Estim Creat Clear Calc 21 Estimated GFR 23 L Glucose 118 H POC Capillary Glucose 112 H 180 H Calcium 8.2 L Phosphorus 3.1 Total Bilirubin 0.4 AST 31 ALT 13 Alkaline Phosphatase 79 Total Protein 6.3 Albumin 2.9 L Crossmatch
[2024-10-21] MEDS: HEPARIN SOD/D5W 100 UNITS/ML 25,000 UNITS/250 ML BAG 12 UNITS IV CONT (18:26)
[2024-10-21 18:48] LABS: Partial Thromboplastin Time 44.6 Seconds (22.3-36.8)
[2024-10-21 19:47] VITALS: PULSE 78; RESP 20; O2SAT 93
[2024-10-21 21:28] VITALS: BP 147/60; PULSE 79; RESP 20; TEMP 36.8; O2SAT 97
[2024-10-22 00:45] LABS: Partial Thromboplastin Time 74.1 Seconds (22.3-36.8)
[2024-10-22] MEDS: MORPHINE SULFATE (*CRX) 4 MG/ML INJ 5 MG IV PUSH ×4 (03:22→23:58)
[2024-10-22 05:16] LABS: Hematocrit 29.3 % (42.0-52.0); Hemoglobin 8.9 g/dL (14.0-18.0); Immature Granulocyte Percent A 5.1 % (0-0.5); Lymphocytes Absolute Auto 1.25 K/mm3 (0.9-3.2); Mean Corpuscular HGB Conc 30.4 g/dl (32-36); Mean Corpuscular Hemoglobin 29.1 pg (26-34); Mean Corpuscular Volume 95.8 fl (80-100); Nucleated Red Blood Cells Absolute Auto 0.000 K/mm3 (0.0-0.012); Nucleated Red Blood Cells Perc 0.0 % (0.0-0.2); Platelet Count Result 489 k/mm3 (150-375); Red Blood Count 3.06 M/mm3 (4.6-6.20); White Blood Count 11.9 K/mm3 (4.5-10.0)
[2024-10-22] MEDS: AMPICILLIN 2 GM/NS 100 ML 2 GM/100 ML BAG IVPB ×3 (05:19→22:06)
[2024-10-22 05:30] LABS: Alanine Aminotransferase 14 U/L (6-50); Albumin Level 3.0 g/dL (3.5-5.1); Alkaline Phosphatase 81 U/L (38-126); Anion Gap 7 mmol/L (4-12); Aspartate Amino Transferase 33 U/L (17-59); Bilirubin,Total 0.4 mg/dL (0.2-1.3); Blood Urea Nitrogen 33 mg/dL (9-20); Calcium 8.3 mg/dL (8.4-10.2); Carbon Dioxide 33 mmol/L (22-30); Chloride 94 mmol/L (98-107); Estimated CRCL calculation 23 ml/min; Estimated Glomerular Filt Rate 25; Glucose 126 mg/dL (65-110); Potassium 3.8 mmol/L (3.4-5.0); Sodium 134 mmol/L (137-145); Total Protein 6.6 g/dL (6.3-8.2)
[2024-10-22 05:51] LABS: Anisocytosis 1+; Hypochromasia 1+
[2024-10-22 05:52] LABS: Microcytosis 2+ (NORMAL); Schistocytes None Seen
[2024-10-22 06:00] VITALS: BP 144/59; PULSE 76; RESP 20; TEMP 36.6; O2SAT 96
[2024-10-22 06:46] LABS: Partial Thromboplastin Time 73.2 Seconds (22.3-36.8)
[2024-10-22] MEDS: PANTOPRAZOLE 40 MG TABLET PO (09:05)
[2024-10-22] MEDS: FINASTERIDE 5 MG TABLET PO (09:06)
[2024-10-22] MEDS: FUROSEMIDE 40 MG TABLET PO ×2 (09:06→17:48)
[2024-10-22] MEDS: SODIUM CHLORIDE 500 MG TABLET PO ×2 (09:06→17:48)
[2024-10-22] MEDS: CLOPIDOGREL BISULFATE 75 MG TABLET PO (09:06)
[2024-10-22] MEDS: EZETIMIBE 10 MG TABLET PO (09:06)
[2024-10-22] MEDS: VERAPAMIL HCL 120 MG TABLET IMMED RELEASE PO ×2 (09:06→22:06)
[2024-10-22] MEDS: SACCHAROMYCES BOULARDII 250 MG CAPSULE PO ×2 (09:06→17:48)
[2024-10-22] MEDS: DOCUSATE SODIUM 100 MG CAPSULE PO (09:06)
--- NOTE | 2024-10-22 09:40 | P.PNNP_ITS ---
Progress Note: A&P Assessment and Plan (1) Acute kidney injury: Code(s): N17.9 - Acute kidney failure, unspecified Status: Acute Assessment and Plan: * improvement noted and is back to baseline * evaluation to date noted: * admission CT of A/P with no suspicious mass, obstructing stone, or hydronephrosis * prerenal urine electrolytes (by FeUrea) * urine eosinophils negative * mild proteinuria * normal/low CPK * UA without evidence of infection * suspect multifactorial etiology: * prerenal factors * infection (bacteremia + cholecystitis) * tolerating oral diuretic therapy (lasix 40mg bid) * follow trend of repeat labs and UOP (2) Stage 4 chronic kidney disease: Code(s): N18.4 - Chronic kidney disease, stage 4 (severe) Status: Chronic Assessment and Plan: * slow and progressive decline noted * GFR ~ 22 to 23 in * GFR ~ 20 to 21 in * GFR ~ 18 by July 2024 labs * creatinine was been running anywhere from 2.4 - 3.2mg/dl in the last 6 months * possible new baseline -- 2.4 - 2.7mg/dl(?) (3) Choledocholithiasis with acute cholecystitis: Code(s): K80.42 - Calculus of bile duct with acute cholecystitis without obstruction Status: Acute Assessment and Plan: * s/p cholecystostomy tube placement (on 10/05) * cholangiogram (10/12) suggestive of retained stone in bile duct -- s/p ERCP (on 10/16) * s/p cholecystectomy (on 10/18) * Surgery following * continue supportive therapy (4) Bacteremia: Code(s): R78.81 - Bacteremia Status: Acute Assessment and Plan: * blood culture results noted: * 10/04 blood cultures - Enterococcus faecalis * 10/05 blood cultures - Enterococcus faecalis * presumed source = gallbladder * gallbladder/bile culture - Enterococcus faecalis * on ampicillin and ceftriaxone * Echo results (10/13) noted: * left ventricular systolic function is normal, estimated at 60-65% * left ventricular diastolic function is grade I diastolic dysfunction * 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, 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 * moderate to severe mitral valve regurgitation * circumferential echogenic mass measuring 1.4 cm x 0.8 cm attached to left atrial side of mitral valve annulus which probably calcified mass; there is an additional small calcified echogenic mass attached to left ventricular side of posterior mitral valve leaflet -- probably calcifications more likely than vegetations; consider ADOLFO if clinically indicated * mild tricuspid valve regurgitation * mild pulmonary hypertension, estimated pulmonary arterial systolic pressure is 40 mmHg * trace pulmonic regurgitation * Cardiology recommendations noted -- patient not interested in ADOLFO at this time. * repeat blood cultures (10/08) negative (final read) (5) Anemia: Code(s): D64.9 - Anemia, unspecified Status: Acute Assessment and Plan: * due to combo of LEROY, CKD, acute illness/infection and possibly previous IVFs * on Epogen 3x/week while hospitalized * follow trend of H/H (6) Hyponatremia: Code(s): E87.1 - Hypo-osmolality and hyponatremia Status: Acute Assessment and Plan: * due to acute illness or possibly diuretic therapy * on low dose salt tablets * follow trend (7) Hypertension: Code(s): I10 - Essential (primary) hypertension Status: Chronic Assessment and Plan: * reasonable control at this time * continue same medications * follow trend of hemodynamics (8) Type 2 diabetes mellitus with hyperglycemia, without long-term current use of insulin: Code(s): E11.65 - Type 2 diabetes mellitus with hyperglycemia Status: Chronic Assessment and Plan: * follow accu-cheks * glycemic control per hospitalist Not much else to add -- will continue to follow intermittently. L Subjective Date/time seen: 10/22/24 09:40 Interval history: Follow-up for acute kidney injury/acute renal failure on chronic kidney disease. Chart reviewed since last seen -- renal function/creatinine remains relatively stable and tolerating diuretic therapy with reasonable urine output; sitting up in bed at the time of my visit; no apparent distress voiced; no issues/events overnight or earlier this morning. Exam 2 Narrative: General: elderly but WD/WN male in NAD Heart: normal S1 and S2; no rub Lungs: clear anteriorly Abdomen: soft, nontender, nondistended, positive bowel sounds Extremities: no cyanosis or clubbing; trace edema Skin: no nodules Objective Data Vital Signs Vital Signs: Vital Signs Temp Pulse Resp BP Pulse Ox O2 Del Method FiO2 10/22/24 06:00 97.9 F 76 20 144/59 H 96 10/21/24 21:28 98.2 F 79 20 147/60 H 97 10/21/24 19:47 78 20 93 Room Air 21 Intake/Output Intake/Output: Intake & Output 10/19/24 10/20/24 10/21/24 10/22/24 23:59 23:59 23:59 23:59 Intake Total 2180 2070 1820 503.2 Output Total 830 1065 1525 920 Balance 1350 1005 295 -416.8 Meds/Results Medications: Active Medications Generic Name Dose Route Start Last Admin Trade Name Freq PRN Reason Stop Dose Admin Acetaminophen 500 mg 10/18/24 18:55 10/20/24 12:38 Acetaminophen 500 Mg Tablet PO 500 mg Q6H PRN Administration Pain Rated 1-3 Albuterol 2 puff 10/03/24 15:40 10/04/24 09:06 Albuterol Sulfate (*Sp) Aerosol 1 Puff INHALATION 2 puff Q6HRT PRN Administration Shortness Of Breath Or Wheezing Apixaban 5 mg 10/22/24 21:00 Apixaban 5 Mg Tablet PO Q12HR [facility] Clopidogrel Bisulfate 75 mg 10/01/24 09:00 10/22/24 09:06 Clopidogrel Bisulfate 75 Mg Tablet PO 75 mg DAILY VU Administration Dextrose 12.5 gm 09/30/24 20:29 Dextrose 50% 25 Gm/50 Ml Syringe IV PUSH PRN PRN Hypoglycemia Protocol Docusate Sodium 100 mg 10/01/24 09:00 10/22/24 09:06 Docusate Sodium 100 Mg Capsule PO 100 mg DAILY VU Administration Ezetimibe 10 mg 10/01/24 09:00 10/22/24 09:06 Ezetimibe 10 Mg Tablet PO 10 mg DAILY VU Administration Epoetin Gordo-epbx 10,000 units 10/16/24 09:00 10/20/24 09:16 Epoetin Gordo-Epbx 10,000 Units/Ml Vial SUB-Q 10,000 units TUTA@09 VU Administration Finasteride 5 mg 10/01/24 09:00 10/22/24 09:06 Finasteride 5 Mg Tablet PO 5 mg DAILY VU Administration Fluticasone Propionate 2 spray 09/30/24 20:28 10/14/24 08:33 Fluticasone Propionate 0.05% Na Spr 16 Gm Btl (*Bkc) NASAL 2 spray DAILY PRN Administration allergy symptoms Furosemide 40 mg 10/09/24 09:00 10/22/24 09:06 Furosemide 40 Mg Tablet PO 40 mg BID VU Administration Glucagon 1 mg 09/30/24 20:29 Glucagon For Inj 1 Mg Vial IM PRN PRN Hypoglycemia Protocol Glucose 15 gm 09/30/24 20:29 Glucose Oral Gel 15 Gm Of Glucse In 37.5 Gm Tube PO PRN PRN Hypoglycemia Protocol Heparin Sodium (Porcine) 4,000 units 10/17/24 13:37 Heparin Sodium 5,000 Units/Ml Vial IV PUSH 10/22/24 19:00 PRN PRN aPTT less than 55 seconds Heparin Sodium (Porcine) 3,000 units 10/17/24 13:37 10/17/24 22:02 Heparin Sodium 5,000 Units/Ml Vial IV PUSH 10/22/24 19:00 3,000 units PRN PRN Administration aPTT 55 - 70 seconds Dextrose 1,000 mls @ 100 mls/hr 09/30/24 20:29 Dextrose 5% 1,000 Ml IVPB PRN PRN Hypoglycemia Protocol Ceftriaxone Sodium 2 gm in 100 mls @ 200 mls/hr 10/08/24 14:00 10/21/24 14:04 Rocephin 2 Gm/Ns 100 Ml IVPB Infused Q24H VU Infusion Ampicillin Sodium 2 gm in 100 mls @ 200 mls/hr 10/16/24 14:00 10/22/24 05:19 Ampicillin 2 Gm/Ns 100 Ml IVPB 10/22/24 23:59 100 mls/hr Q8H VU Administration Heparin Sodium/Dextrose 25,000 units in 250 mls @ 12 mls/hr 10/17/24 13:40 10/22/24 08:02 Heparin Sodium/D5w 100 Units/Ml IV CONT 10/22/24 19:00 1,200 units/hr .[id number] VU 12 mls/hr Titration Protocol 1,200 UNITS/HR Insulin Aspart 1 - 3 units 09/30/24 21:00 10/21/24 21:14 Insulin Aspart (*Bkc) 100 Units/Ml SUB-Q Not Given HS VU Protocol Insulin Aspart 3 - 6 units 10/01/24 08:00 10/22/24 09:09 Insulin Aspart (*Bkc) 100 Units/Ml SUB-Q Not Given TIDWM [facility] Protocol Metronidazole 500 mg 10/20/24 22:00 10/22/24 05:21 Metronidazole 500 Mg Tablet PO 500 mg Q8HR VU Administration Miscellaneous Information 0 each 10/18/24 00:01 Please Renew _.Ceftriaxone, Met Per [employer] Procedure, It Will Discontinue If Not Renewed XX 11/17/24 00:00 CLARIFY VU Morphine Sulfate 15 mg 10/07/24 09:53 10/21/24 17:19 Morphine Sulfate (*Crx) 15 Mg Tab Ir PO 15 mg Q4H PRN Administration Pain Rated 7-10 Morphine Sulfate 3 mg 10/18/24 18:55 10/19/24 05:55 Morphine Sulfate (*Crx) 2 Mg/Ml Inj IV PUSH 3 mg Q2H PRN Administration Breakthrough Pain Rated 4-6 or NPO Morphine Sulfate 5 mg 10/18/24 18:55 10/22/24 09:06 Morphine Sulfate (*Crx) 4 Mg/Ml Inj IV PUSH 5 mg Q2H PRN Administration Breakthrough Pain Rated 7-10 or NPO Naloxone HCl 0.1 mg 10/18/24 18:55 Naloxone Hcl 0.4 Mg/Ml Vial IV PUSH Q2M PRN Opiate Reversal Ondansetron HCl 4 mg 09/30/24 19:02 10/12/24 11:54 Ondansetron Inj 4 Mg/2 Ml Vial IV PUSH 4 mg Q4H PRN Administration Nausea Pantoprazole Sodium 40 mg 10/07/24 09:00 10/22/24 09:05 Pantoprazole 40 Mg Tablet PO 40 mg QAM VU Administration Polyethylene Glycol 17 gm 10/10/24 13:40 10/22/24 09:10 Polyethylene Glycol 3350 17 Gm Powd.Pack PO 17 gm QAM VU Administration Saccharomyces Boulardii 250 mg 10/11/24 17:00 10/22/24 09:06 Saccharomyces Boulardii 250 Mg Capsule PO 250 mg BID VU Administration Sodium Chloride 500 mg 10/06/24 17:00 10/22/24 09:06 Sodium Chloride 500 Mg Tablet PO 500 mg BID VU Administration Verapamil HCl 120 mg 09/30/24 21:00 10/22/24 09:06 Verapamil Hcl 120 Mg Tablet Immed Release PO 120 mg Q12HR VU Administration Radiology Results: ITS Impressions Abdomen/Pelvis CT 09/30/24 19:00 IMPRESSION: Gallbladder hydrops without inflammatory change. Dilated common bile duct, measuring 14 mm. No obstructing stone or mass detected. Correlate with biliary labs. 3.4 cm fusiform infrarenal abdominal aortic aneurysm. Consider follow-up in 3 years. Upper Quadrant Ultrasound 10/01/24 08:43 IMPRESSION: 1. Cholelithiasis with a normal-appearing gallbladder but with mild intra and extrahepatic biliary ductal dilation which raises concern for a nonvisualized distal obstructing choledocholithiasis. Correlate with liver function tests and if clinically indicated could consider further evaluation with either MRCP or ERCP. Cholecystostomy 10/05/24 16:57 IMPRESSION: 1. Successful ultrasound-guided cholecystostomy tube placement. 2. 35 mL bile was sent for aerobic, anaerobic, and fungal cultures. 3. The catheter will be managed by Dr. Brennan. Cholangiogram 10/12/24 14:45 IMPRESSION: 1. Cholelithiasis and choledocholithiasis obstructing distal choledocholithiasis with no observed contrast emptying into the duodenum. The cystic duct is patent. Consider ERCP for stone extraction and sphincterotomy to relieve the distal ductal obstruction. Chest X-Ray 10/17/24 11:39 IMPRESSION: No significant change from previous examination. Venous Doppler Study 10/17/24 13:00 IMPRESSION: 1. Right [id number] deep venous thrombosis in one of the paired right peroneal veins. Findings were discussed with Abeba crum, the nurse caring for the patient, at 1:07 PM. 2. No deep venous thrombosis in the left lower limb. 3. Small right Reno's cyst. Hepatobiliary Scan Nuclear Medicine 10/19/24 11:59 IMPRESSION: 1. Normal post cholecystectomy hepatobiliary scan with no bile leak. Ankle X-Ray 10/22/24 10:03 IMPRESSION: 1. Age-indeterminate, potentially subacute nondisplaced extra-articular fracture at the base of the left fourth proximal phalanx. Foot X-Ray 10/22/24 10:03 IMPRESSION: 1. Age-indeterminate, potentially subacute nondisplaced extra-articular fracture at the base of the left fourth proximal phalanx. Labs Labs: Laboratory Tests 10/22/24 04:28 10/22/24 04:28 Calcium 8.3 L Phosphorus 3.0 Total Bilirubin 0.4 AST 33 ALT 14 Alkaline Phosphatase 81 Total Protein 6.6 Albumin 3.0 L
--- NOTE | 2024-10-22 10:52 | PM.PNGS ---
Progress Note: A&P Assessment and Plan (1) Choledocholithiasis with acute cholecystitis: Code(s): K80.42 - Calculus of bile duct with acute cholecystitis without obstruction Status: Acute Assessment and Plan: Tolerating diet. H&H overall stable and no signs of active bleeding. Incisions healing well. Will remove NIA drain later today or tomorrow. His main complaint is left foot and ankle pain when bearing weight. Will order plain films of the left foot/ankle. (2) Enterococcal bacteremia: Code(s): R78.81 - Bacteremia; B95.2 - Enterococcus as the cause of diseases classified elsewhere Status: Acute Assessment and Plan: Continues IV antibiotics per Hospitalist (3) DVT (deep venous thrombosis): Code(s): I82.409 - Acute embolism and thrombosis of unspecified deep veins of unspecified lower extremity Status: Acute Assessment and Plan: Peroneal vein DVT, minimal risk for pulmonary embolism. Currently on heparin infusion with transition to apixaban today per Hospitalist. 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 Plan I have discussed the patient's case and plan of care with Dr. Brennan. Subjective Subjective Date/Time Seen: 10/22/24 10:52 Post Op day: 4 (Laparoscopic cholecystectomy) Interval history: Main complaint today is left ankle and left foot pain when standing or walking. He reportedly is unable to bear weight on his left ankle and foot due to the pain. No abdominal pain. He reports some expected incisional tenderness with movement. Tolerating a diet without any nausea or vomiting. Exam Const: General: comfortable and no acute distress Orientation/consciousness: patient oriented x3 GI: Inspection: no abdominal wall ecchymosis, non-distended, incision (Dry and glue intact, healing well) and other (NIA with scant serosanguineous output) GI Palp: Yes Soft to palpation, Yes Tenderness to palpation present (GI) and No Guarding due to palpation present (GI) Auscultation: normal bowel sounds Objective Data Vital Signs Vital Signs: Vital Signs - 24 hr 10/21/24 19:47 10/21/24 21:28 10/22/24 06:00 Temperature 98.2 F 97.9 F Pulse Rate 78 79 76 Respiratory Rate 20 20 20 Blood Pressure 147/60 H 144/59 H Pulse Oximetry 93 97 96 Oxygen Delivery Room Air Fraction of Inspired Oxygen 21 Intake/Output Intake/Output: Intake & Output 10/19/24 10/20/24 10/21/24 10/22/24 23:59 23:59 23:59 23:59 Intake Total 2180 2070 1820 263.2 Output Total 830 1065 1525 920 Balance 1350 1005 295 -656.8 Meds/Results Medications: Active Medications Generic Name Dose Route Start Last Admin Trade Name Freq PRN Reason Stop Dose Admin Acetaminophen 500 mg 10/18/24 18:55 10/20/24 12:38 Acetaminophen 500 Mg Tablet PO 500 mg Q6H PRN Administration Pain Rated 1-3 Albuterol 2 puff 10/03/24 15:40 10/04/24 09:06 Albuterol Sulfate (*Sp) Aerosol 1 Puff INHALATION 2 puff Q6HRT PRN Administration Shortness Of Breath Or Wheezing Apixaban 5 mg 10/22/24 21:00 Apixaban 5 Mg Tablet PO Q12HR [facility] Clopidogrel Bisulfate 75 mg 10/01/24 09:00 10/22/24 09:06 Clopidogrel Bisulfate 75 Mg Tablet PO 75 mg DAILY UV Administration Dextrose 12.5 gm 09/30/24 20:29 Dextrose 50% 25 Gm/50 Ml Syringe IV PUSH PRN PRN Hypoglycemia Protocol Docusate Sodium 100 mg 10/01/24 09:00 10/22/24 09:06 Docusate Sodium 100 Mg Capsule PO 100 mg DAILY VU Administration Ezetimibe 10 mg 10/01/24 09:00 10/22/24 09:06 Ezetimibe 10 Mg Tablet PO 10 mg DAILY VU Administration Epoetin Gordo-epbx 10,000 units 10/16/24 09:00 10/20/24 09:16 Epoetin Gordo-Epbx 10,000 Units/Ml Vial SUB-Q 10,000 units TUTA@09 VU Administration Finasteride 5 mg 10/01/24 09:00 10/22/24 09:06 Finasteride 5 Mg Tablet PO 5 mg DAILY VU Administration Fluticasone Propionate 2 spray 09/30/24 20:28 10/14/24 08:33 Fluticasone Propionate 0.05% Na Spr 16 Gm Btl (*Bkc) NASAL 2 spray DAILY PRN Administration allergy symptoms Furosemide 40 mg 10/09/24 09:00 10/22/24 09:06 Furosemide 40 Mg Tablet PO 40 mg BID VU Administration Glucagon 1 mg 09/30/24 20:29 Glucagon For Inj 1 Mg Vial IM PRN PRN Hypoglycemia Protocol Glucose 15 gm 09/30/24 20:29 Glucose Oral Gel 15 Gm Of Glucse In 37.5 Gm Tube PO PRN PRN Hypoglycemia Protocol Heparin Sodium (Porcine) 4,000 units 10/17/24 13:37 Heparin Sodium 5,000 Units/Ml Vial IV PUSH 10/22/24 19:00 PRN PRN aPTT less than 55 seconds Heparin Sodium (Porcine) 3,000 units 10/17/24 13:37 10/17/24 22:02 Heparin Sodium 5,000 Units/Ml Vial IV PUSH 10/22/24 19:00 3,000 units PRN PRN Administration aPTT 55 - 70 seconds Dextrose 1,000 mls @ 100 mls/hr 09/30/24 20:29 Dextrose 5% 1,000 Ml IVPB PRN PRN Hypoglycemia Protocol Ceftriaxone Sodium 2 gm in 100 mls @ 200 mls/hr 10/08/24 14:00 10/21/24 14:04 Rocephin 2 Gm/Ns 100 Ml IVPB Infused Q24H VU Infusion Ampicillin Sodium 2 gm in 100 mls @ 200 mls/hr 10/16/24 14:00 10/22/24 05:19 Ampicillin 2 Gm/Ns 100 Ml IVPB 10/22/24 23:59 100 mls/hr Q8H VU Administration Heparin Sodium/Dextrose 25,000 units in 250 mls @ 12 mls/hr 10/17/24 13:40 10/22/24 08:02 Heparin Sodium/D5w 100 Units/Ml IV CONT 10/22/24 19:00 1,200 units/hr .[id number] VU 12 mls/hr Titration Protocol 1,200 UNITS/HR Insulin Aspart 1 - 3 units 09/30/24 21:00 10/21/24 21:14 Insulin Aspart (*Bkc) 100 Units/Ml SUB-Q Not Given HS [facility] Protocol Insulin Aspart 3 - 6 units 10/01/24 08:00 10/22/24 09:09 Insulin Aspart (*Bkc) 100 Units/Ml SUB-Q Not Given TIDWM [facility] Protocol Metronidazole 500 mg 10/20/24 22:00 10/22/24 05:21 Metronidazole 500 Mg Tablet PO 500 mg Q8HR VU Administration Miscellaneous Information 0 each 10/18/24 00:01 Please Renew _.Ceftriaxone, Met Per [employer] Procedure, It Will Discontinue If Not Renewed XX 11/17/24 00:00 CLARIFY [facility] Morphine Sulfate 15 mg 10/07/24 09:53 10/21/24 17:19 Morphine Sulfate (*Crx) 15 Mg Tab Ir PO 15 mg Q4H PRN Administration Pain Rated 7-10 Morphine Sulfate 3 mg 10/18/24 18:55 10/19/24 05:55 Morphine Sulfate (*Crx) 2 Mg/Ml Inj IV PUSH 3 mg Q2H PRN Administration Breakthrough Pain Rated 4-6 or NPO Morphine Sulfate 5 mg 10/18/24 18:55 10/22/24 09:06 Morphine Sulfate (*Crx) 4 Mg/Ml Inj IV PUSH 5 mg Q2H PRN Administration Breakthrough Pain Rated 7-10 or NPO Naloxone HCl 0.1 mg 10/18/24 18:55 Naloxone Hcl 0.4 Mg/Ml Vial IV PUSH Q2M PRN Opiate Reversal Ondansetron HCl 4 mg 09/30/24 19:02 10/12/24 11:54 Ondansetron Inj 4 Mg/2 Ml Vial IV PUSH 4 mg Q4H PRN Administration Nausea Pantoprazole Sodium 40 mg 10/07/24 09:00 10/22/24 09:05 Pantoprazole 40 Mg Tablet PO 40 mg QAM VU Administration Polyethylene Glycol 17 gm 10/10/24 13:40 10/22/24 09:10 Polyethylene Glycol 3350 17 Gm Powd.Pack PO 17 gm QAM VU Administration Saccharomyces Boulardii 250 mg 10/11/24 17:00 10/22/24 09:06 Saccharomyces Boulardii 250 Mg Capsule PO 250 mg BID VU Administration Sodium Chloride 500 mg 10/06/24 17:00 10/22/24 09:06 Sodium Chloride 500 Mg Tablet PO 500 mg BID VU Administration Verapamil HCl 120 mg 09/30/24 21:00 10/22/24 09:06 Verapamil Hcl 120 Mg Tablet Immed Release PO 120 mg Q12HR VU Administration Radiology Results: ITS Impressions Abdomen/Pelvis CT 09/30/24 19:00 IMPRESSION: Gallbladder hydrops without inflammatory change. Dilated common bile duct, measuring 14 mm. No obstructing stone or mass detected. Correlate with biliary labs. 3.4 cm fusiform infrarenal abdominal aortic aneurysm. Consider follow-up in 3 years. Upper Quadrant Ultrasound 10/01/24 08:43 IMPRESSION: 1. Cholelithiasis with a normal-appearing gallbladder but with mild intra and extrahepatic biliary ductal dilation which raises concern for a nonvisualized distal obstructing choledocholithiasis. Correlate with liver function tests and if clinically indicated could consider further evaluation with either MRCP or ERCP. Cholecystostomy 10/05/24 16:57 IMPRESSION: 1. Successful ultrasound-guided cholecystostomy tube placement. 2. 35 mL bile was sent for aerobic, anaerobic, and fungal cultures. 3. The catheter will be managed by Dr. Brennan. Cholangiogram 10/12/24 14:45 IMPRESSION: 1. Cholelithiasis and choledocholithiasis obstructing distal choledocholithiasis with no observed contrast emptying into the duodenum. The cystic duct is patent. Consider ERCP for stone extraction and sphincterotomy to relieve the distal ductal obstruction. Chest X-Ray 10/17/24 11:39 IMPRESSION: No significant change from previous examination. Venous Doppler Study 10/17/24 13:00 IMPRESSION: 1. Right [id number] deep venous thrombosis in one of the paired right peroneal veins. Findings were discussed with Abeba crum, the nurse caring for the patient, at 1:07 PM. 2. No deep venous thrombosis in the left lower limb. 3. Small right [place]'s cyst. Hepatobiliary Scan Nuclear Medicine 10/19/24 11:59 IMPRESSION: 1. Normal post cholecystectomy hepatobiliary scan with no bile leak. Ankle X-Ray 10/22/24 10:03 IMPRESSION: 1. Age-indeterminate, potentially subacute nondisplaced extra-articular fracture at the base of the left fourth proximal phalanx. Foot X-Ray 10/22/24 10:03 IMPRESSION: 1. Age-indeterminate, potentially subacute nondisplaced extra-articular fracture at the base of the left fourth proximal phalanx. Labs Labs: Laboratory Results - last 24 hr 10/21/24 10/21/24 10/21/24 12:02 16:51 18:31 WBC RBC Hgb Hct MCV MCH MCHC RDW Plt Count MPV Immature Gran % (Auto) Neut % (Auto) Lymph % (Auto) [place] % (Auto) Eos % (Auto) Baso % (Auto) Lymph # (Auto) [place] # (Auto) Eos # (Auto) Baso # (Auto) Abs Immat Gran (auto) Absolute Neuts (auto) Absolute Nucleated RBC Band Neutrophils % Nucleated RBC % Platelet Estimate Hypochromasia Anisocytosis Microcytosis Schistocytes APTT 44.6 H Sodium Potassium Chloride Carbon Dioxide Anion Gap BUN Creatinine Estim Creat Clear Calc Estimated GFR Glucose POC Capillary Glucose 180 H 167 H Calcium Phosphorus Total Bilirubin AST ALT Alkaline Phosphatase Total Protein Albumin 10/21/24 10/22/24 10/22/24 20:43 00:24 04:28 WBC 11.9 H RBC 3.06 L Hgb 8.9 L Hct 29.3 L MCV 95.8 MCH 29.1 MCHC 30.4 L RDW 15.1 H Plt Count 489 H MPV 8.8 Immature Gran % (Auto) 5.1 H Neut % (Auto) 65.4 Lymph % (Auto) 10.5 L [place] % (Auto) 14.8 H Eos % (Auto) 3.2 Baso % (Auto) 1.0 Lymph # (Auto) 1.25 [place] # (Auto) 1.8 H Eos # (Auto) 0.4 H Baso # (Auto) 0.1 Abs Immat Gran (auto) 0.61 H Absolute Neuts (auto) 7.8 H Absolute Nucleated RBC 0.000 Band Neutrophils % Not Reportable Nucleated RBC % 0.0 Platelet Estimate Increased Hypochromasia 1+ Anisocytosis 1+ Microcytosis 2+ Schistocytes None seen APTT 74.1 H Sodium 134 L Potassium 3.8 Chloride 94 L Carbon Dioxide 33 H Anion Gap 7 BUN 33 H Creatinine 2.43 H Estim Creat Clear Calc 23 Estimated GFR 25 L Glucose 126 H POC Capillary Glucose 198 H Calcium 8.3 L Phosphorus 3.0 Total Bilirubin 0.4 AST 33 ALT 14 Alkaline Phosphatase 81 Total Protein 6.6 Albumin 3.0 L 10/22/24 10/22/24 06:22 08:24 WBC RBC Hgb Hct MCV MCH MCHC RDW Plt Count MPV Immature Gran % (Auto) Neut % (Auto) Lymph % (Auto) [place] % (Auto) Eos % (Auto) Baso % (Auto) Lymph # (Auto) [place] # (Auto) Eos # (Auto) Baso # (Auto) Abs Immat Gran (auto) Absolute Neuts (auto) Absolute Nucleated RBC Band Neutrophils % Nucleated RBC % Platelet Estimate Hypochromasia Anisocytosis Microcytosis Schistocytes APTT 73.2 H Sodium Potassium Chloride Carbon Dioxide Anion Gap BUN Creatinine Estim Creat Clear Calc Estimated GFR Glucose POC Capillary Glucose 145 H Calcium Phosphorus Total Bilirubin AST ALT Alkaline Phosphatase Total Protein Albumin
--- NOTE | 2024-10-22 12:00 | PCOTNOTE ---
Attempted to see Patient for OT treatment session. Patient declined, states he does not feel well, not today, I need sleep.
[2024-10-22] MEDS: MORPHINE SULFATE (*CRX) 15 MG TAB IR PO ×2 (12:35→22:05)
[2024-10-22] MEDS: ACETAMINOPHEN 500 MG TABLET PO (13:36)
[2024-10-22] MEDS: HEPARIN SOD/D5W 100 UNITS/ML 25,000 UNITS/250 ML BAG 12 UNITS IV CONT (13:38)
[2024-10-22 14:15] VITALS: BP 143/56; PULSE 86; RESP 18; TEMP 37; O2SAT 93
--- NOTE | 2024-10-22 15:19 | P.PNIM_ITS ---
Progress Note: A&P Assessment and Plan (1) S/P cholecystectomy: Code(s): Z90.49 - Acquired absence of other specified parts of digestive tract Status: Acute Assessment and Plan: s/p OR 10/[address] Brennan for infected gallbladder, gallbladder hydrops. Intraop bleeding s/p 1 unit of PRBC. Bood count now stable. HIDA scan no evidence of bleeding post op. NIA drain with minimal serosanguinous drainage PLAN -- Antibiotics for bacteremia as noted: Ampicillin, Ceftriaxone, and Metronidazole --Resumed diet and tolerating. Had a BM 10/21 --Type and screen active 10/20 --Resume Plavix in AM, ok per surgery recs --Transfuse for hgb <7, s/p 1 unite 10/18 --Heparin drip off post op. OK to restart heparin drip today per surgery recs (2) Bacteremia: Code(s): R78.81 - Bacteremia Status: Acute Assessment and Plan: LABS 10/04 Blood culutre 1 enterococcus faecalis 10/05 Blood cultures 05/27 enterococcus faecalis 10/05 Fungal cx--NGTD 10/05 Gallbladder culture enteroccus species 10/08 Blood cultures 05/27 No growth Antbiotics Treated with empiric Vanc and Ceftriaxone, changed to Ampicillin and Gentamycin 10/07 --Continue Ampicillin, Ceftriaxone, and Metronidazole (3) Acute DVT (deep venous thrombosis): Code(s): I82.409 - Acute embolism and thrombosis of unspecified deep veins of unspecified lower extremity Status: Acute Assessment and Plan: Acute peroneal DVT on dopplers 10/17. Started heparin drip and held for surgery --Restart heparin drip without a bolus --When therapeutic, can switch to oral anticoagulation (4) Acute kidney injury superimposed on CKD: Code(s): N17.9 - Acute kidney failure, unspecified; N18.9 - Chronic kidney disease, unspecified Status: Acute Assessment and Plan: Patient has chronic kidney disease stage 4 with acute kidney injury. Most likely prerenal due to intervascular volume depletion. Initially held Lasix and rehydrated, fluids at 75ml/hr. Nephrology was consulted from the ER. 10/02- cr/bun 2.96/100, peaked 10/05: Cr/BUN: 3.54/94. Has been fluctuating, but stable at 40/2.64 on furosemide side 10/09. 09/30 UA trace protein. 10/01 protein/creat ratio 0.36 - Continue flomax --continue furosemide 20mg daily --Nephrology following, appreciate recommendations (5) Type 2 diabetes mellitus with hyperglycemia, without long-term current use of insulin: Code(s): E11.65 - Type 2 diabetes mellitus with hyperglycemia Status: Chronic Assessment and Plan: Holding Actos -Moderate dose sliding scale insulin with Accu-Cheks a.c. HS and hypoglycemia protocol. -Glucose has been stable during stay (6) Elevated brain natriuretic peptide (BNP) level: Code(s): R79.89 - Other specified abnormal findings of blood chemistry Status: Acute Assessment and Plan: LABS: 10/11: BNP 9,700. Lasix 40 mg ivp x 1 given. Trending down with furosemide 40mg BID and creatinine improving. 10/13 Echocardiogram showed: Summary 1. Definity contrast administered improved wall motion interpretation. 2. Left ventricular chamber dimension is normal. 3. Left ventricular systolic function is normal, estimated at 60-65. 4. There is moderate concentric increased left ventricular wall thickness. 5. The left ventricular diastolic function is grade I diastolic dysfunction. 6. E/e' 15 is elevated. 7. Left atrial chamber dimension is mildly enlarged. 8. 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 Consider ADOLFO if clinically indicated. 9. There is moderate to severe mitral valve regurgitation. 10. Circumferential echogenic mass measuring 1.4 cm x 0.8 cm attached to left atrial side of mitral valve annulus which probably calcified mass. There is an additional small calcified echogenic mass attached to left ventricular side of posterior mitral valve leaflet. Probably calcifications more likely than vegetations. Consider ADOLFO if clinically indicated. 11. There is mild tricuspid valve regurgitation. 12. Mild pulmonary hypertension, estimated pulmonary arterial systolic pressure is 40 mmHg. 13. There is trace pulmonic regurgitation. PLAN * Cardiology consulted, planning ADOLFO with outpatient senior test engineer * Held lasix for OR, resumed (7) Abdominal aortic aneurysm (AAA) 3.0 cm to 5.5 cm in diameter in male: Code(s): I71.40 - Abdominal aortic aneurysm, without rupture, unspecified Status: Acute Assessment and Plan: Likely chronic will defer follow-up to patient's primary care provider for serial imaging (8) Chest pain: Qualifiers: Chest pain type: unspecified Qualified Code(s): R07.9 - Chest pain, unspecified Code(s): R07.9 - Chest pain, unspecified Status: Acute Assessment and Plan: RESOLVED Prior chest pain resolved. No shortness of breath. Thought to be more consistent with GI cause with reported indigestion and significant right upper quadrant pain. Cardiology has been following -Troponins 0.053, 0.080, 0.090 -Holding Antihypertensives and Plavix. --> Plavix on hold since 10/05 for lap torrie per surg. Initially deferred 05/27 bacteremia. Can resume per surgery. Restart 10/22 if no bleeding on heparin drip --Started heparin drip for acute DVT. On hold for surgery and can resuming today (9) Hyponatremia: Code(s): E87.1 - Hypo-osmolality and hyponatremia Status: Acute Assessment and Plan: Levels have been slightly ow since admission despite IVF NS. -Sodium chloride tablets 500mg started 10/06 and sodium improved from 131<136. Has been 131-136 in the last week -Trending with daily labs. Decrease sodium tabs as able (10) Antiplatelet or antithrombotic long-term use: Code(s): Z79.02 - superintendent terminal (current) use of antithrombotics/antiplatelets Status: Chronic Assessment and Plan: Pt with hx of pacemaker and plavix long-term use. Plavix on hold, last dose 10/12. --Start heparin drip. Resume plavix in AM if blood count stable overnight (11) Acute pain: Code(s): R52 - Pain, unspecified Status: Acute Assessment and Plan: Acute on chronic pain. High risk medication use with IV opiates for pain --Continue home morphine 15 mg PO --Tylenol TID prn --Morphine IR, Morphine 3-5mg IV prn --Bowel regimen: miralax Plan patient with choledocholithiasis with acute cholecystitis had ERCP which showed with many stone in the bile duct and removed, had cholecystectomy which showed gallbladder full of stone, patient was treated for cholecystitis ceftriaxone and metronidazole, patient developed enterococcal bacteremia and being treated with Ampicillin, and today is his last day of the antibiotics. patient is seen by surgery service will remove NIA drain tomorrow. patient was found to have peroneal vein DVT and has been treated with heparin, today will start patient on Eliquis, today patient c/o pain in left foot, which is going of 2 days, patient has been in the hospital 31 days, denies any trauma, x-ray of the foot showed age-indeterminate, potentially subacute nondisplaced extra-articular fracture at the base of the left fourth proximal phalanx. will consult an orthopedic for recommendation and will plan. Subjective Date/time seen: 10/22/24 15:19 Interval history: Blood count stable overnight Has been getting up out of bed and not dizzy had a BM today Patient has had a prolonged hospitalization, almost 31 days. He needs continued hospitalization to monitor for bleeding post op while restarting anticoagulation for acute DVT. Also on IV antibiotics. patient with choledocholithiasis with acute cholecystitis had ERCP which showed with many stone in the bile duct and removed, had cholecystectomy which showed gallbladder full of stone, patient was treated for cholecystitis ceftriaxone and metronidazole, patient developed enterococcal bacteremia and being treated with Ampicillin, and today is his last day of the antibiotics. patient is seen by surgery service will remove NIA drain tomorrow. patient was found to have peroneal vein DVT and has been treated with heparin, today will start patient on Eliquis, today patient c/o pain in left foot, which is going of 2 days, patient has been in the hospital 31 days, denies any trauma, x-ray of the foot showed age-indeterminate, potentially subacute nondisplaced extra-articular fracture at the base of the left fourth proximal phalanx. will consult an orthopedic for recommendation and will plan. Review of Systems Review of Systems: 12 systems were reviewed with pertinent positives and negatives per HPI. Except as documented in the HPI, all other systems were reviewed and are negative. All systems reviewed & are unremarkable except as noted in HPI and below Exam Narrative: Patient is comfortable, NAD HEENT: eyes are clear and none icteric LUNGS:CTA HEART: RR S1S2 ABD: BS+, Soft and nontender Lower extremities: no edema SKIN: nonjaundiced Neuro: grossly intact. Objective Data Vital Signs Vital Signs: Vital Signs - 24 hr 10/21/24 19:47 10/21/24 21:28 10/22/24 06:00 Temperature 36.8 C 36.6 C Pulse Rate 78 79 76 Respiratory Rate 20 20 20 Blood Pressure 147/60 H 144/59 H Pulse Oximetry 93 97 96 Oxygen Delivery Room Air Fraction of Inspired Oxygen 21 10/22/24 14:15 Temperature 37.0 C Pulse Rate 86 Respiratory Rate 18 Blood Pressure 143/56 H Pulse Oximetry 93 Oxygen Delivery Fraction of Inspired Oxygen Intake/Output Intake/Output: Intake & Output 10/19/24 10/20/24 10/21/24 10/22/24 23:59 23:59 23:59 23:59 Intake Total 2180 2070 1820 1030.4 Output Total 830 1065 1525 920 Balance 1350 1005 295 110.4 Meds/Results Medications: Active Medications Generic Name Dose Route Start Last Admin Trade Name Freq PRN Reason Stop Dose Admin Acetaminophen 500 mg 10/18/24 18:55 10/22/24 13:36 Acetaminophen 500 Mg Tablet PO 500 mg Q6H PRN Administration Pain Rated 1-3 Albuterol 2 puff 10/03/24 15:40 10/04/24 09:06 Albuterol Sulfate (*Sp) Aerosol 1 Puff INHALATION 2 puff Q6HRT PRN Administration Shortness Of Breath Or Wheezing Apixaban 5 mg 10/22/24 21:00 Apixaban 5 Mg Tablet PO Q12HR [facility] Clopidogrel Bisulfate 75 mg 10/01/24 09:00 10/22/24 09:06 Clopidogrel Bisulfate 75 Mg Tablet PO 75 mg DAILY VU Administration Dextrose 12.5 gm 09/30/24 20:29 Dextrose 50% 25 Gm/50 Ml Syringe IV PUSH PRN PRN Hypoglycemia Protocol Docusate Sodium 100 mg 10/01/24 09:00 10/22/24 09:06 Docusate Sodium 100 Mg Capsule PO 100 mg DAILY [facility] Administration Ezetimibe 10 mg 10/01/24 09:00 10/22/24 09:06 Ezetimibe 10 Mg Tablet PO 10 mg DAILY [facility] Administration Epoetin [place]ordo-epbx 10,000 units 10/16/24 09:00 10/20/24 09:16 Epoetin [place]-Epbx 10,000 Units/Ml Vial SUB-Q 10,000 units TUTHSA@09 VU Administration Finasteride 5 mg 10/01/24 09:00 10/22/24 09:06 Finasteride 5 Mg Tablet PO 5 mg DAILY VU Administration Fluticasone Propionate 2 spray 09/30/24 20:28 10/14/24 08:33 Fluticasone Propionate 0.05% Na Spr 16 Gm Btl (*Bkc) NASAL 2 spray DAILY PRN Administration allergy symptoms Furosemide 40 mg 10/09/24 09:00 10/22/24 09:06 Furosemide 40 Mg Tablet PO 40 mg BID VU Administration Glucagon 1 mg 09/30/24 20:29 Glucagon For Inj 1 Mg Vial IM PRN PRN Hypoglycemia Protocol Glucose 15 gm 09/30/24 20:29 Glucose Oral Gel 15 Gm Of Glucse In 37.5 Gm Tube PO PRN PRN Hypoglycemia Protocol Heparin Sodium (Porcine) 4,000 units 10/17/24 13:37 Heparin Sodium 5,000 Units/Ml Vial IV PUSH 10/22/24 19:00 PRN PRN aPTT less than 55 seconds Heparin Sodium (Porcine) 3,000 units 10/17/24 13:37 10/17/24 22:02 Heparin Sodium 5,000 Units/Ml Vial IV PUSH 10/22/24 19:00 3,000 units PRN PRN Administration aPTT 55 - 70 seconds Dextrose 1,000 mls @ 100 mls/hr 09/30/24 20:29 Dextrose 5% 1,000 Ml IVPB PRN PRN Hypoglycemia Protocol Ampicillin Sodium 2 gm in 100 mls @ 200 mls/hr 10/16/24 14:00 10/22/24 13:38 Ampicillin 2 Gm/Ns 100 Ml IVPB 10/22/24 23:59 100 mls/hr Q8H VU Administration Heparin Sodium/Dextrose 25,000 units in 250 mls @ 12 mls/hr 10/17/24 13:40 10/22/24 13:38 Heparin Sodium/D5w 100 Units/Ml IV CONT 10/22/24 19:00 1,200 units/hr .[id number] VU 12 mls/hr Administration Protocol 1,200 UNITS/HR Insulin Aspart 1 - 3 units 09/30/24 21:00 10/21/24 21:14 Insulin Aspart (*Bkc) 100 Units/Ml SUB-Q Not Given HS VU Protocol Insulin Aspart 3 - 6 units 10/01/24 08:00 10/22/24 12:23 Insulin Aspart (*Bkc) 100 Units/Ml SUB-Q Not Given TIDWM VU Protocol Morphine Sulfate 15 mg 10/07/24 09:53 10/22/24 12:35 Morphine Sulfate (*Crx) 15 Mg Tab Ir PO 15 mg Q4H PRN Administration Pain Rated 7-10 Morphine Sulfate 3 mg 10/18/24 18:55 10/19/24 05:55 Morphine Sulfate (*Crx) 2 Mg/Ml Inj IV PUSH 3 mg Q2H PRN Administration Breakthrough Pain Rated 4-6 or NPO Morphine Sulfate 5 mg 10/18/24 18:55 10/22/24 09:06 Morphine Sulfate (*Crx) 4 Mg/Ml Inj IV PUSH 5 mg Q2H PRN Administration Breakthrough Pain Rated 7-10 or NPO Naloxone HCl 0.1 mg 10/18/24 18:55 Naloxone Hcl 0.4 Mg/Ml Vial IV PUSH Q2M PRN Opiate Reversal Ondansetron HCl 4 mg 09/30/24 19:02 10/12/24 11:54 Ondansetron Inj 4 Mg/2 Ml Vial IV PUSH 4 mg Q4H PRN Administration Nausea Pantoprazole Sodium 40 mg 10/07/24 09:00 10/22/24 09:05 Pantoprazole 40 Mg Tablet PO 40 mg QAM VU Administration Polyethylene Glycol 17 gm 10/10/24 13:40 10/22/24 09:10 Polyethylene Glycol 3350 17 Gm Powd.Pack PO 17 gm QAM VU Administration Saccharomyces Boulardii 250 mg 10/11/24 17:00 10/22/24 09:06 Saccharomyces Boulardii 250 Mg Capsule PO 250 mg BID VU Administration Sodium Chloride 500 mg 10/06/24 17:00 10/22/24 09:06 Sodium Chloride 500 Mg Tablet PO 500 mg BID VU Administration Verapamil HCl 120 mg 09/30/24 21:00 10/22/24 09:06 Verapamil Hcl 120 Mg Tablet Immed Release PO 120 mg Q12HR VU Administration Radiology Results: ITS Impressions Abdomen/Pelvis CT 09/30/24 19:00 IMPRESSION: Gallbladder hydrops without inflammatory change. Dilated common bile duct, measuring 14 mm. No obstructing stone or mass detected. Correlate with biliary labs. 3.4 cm fusiform infrarenal abdominal aortic aneurysm. Consider follow-up in 3 years. Upper Quadrant Ultrasound 10/01/24 08:43 IMPRESSION: 1. Cholelithiasis with a normal-appearing gallbladder but with mild intra and extrahepatic biliary ductal dilation which raises concern for a nonvisualized distal obstructing choledocholithiasis. Correlate with liver function tests and if clinically indicated could consider further evaluation with either MRCP or ERCP. Cholecystostomy 10/05/24 16:57 IMPRESSION: 1. Successful ultrasound-guided cholecystostomy tube placement. 2. 35 mL bile was sent for aerobic, anaerobic, and fungal cultures. 3. The catheter will be managed by Dr. Brennan. Cholangiogram 10/12/24 14:45 IMPRESSION: 1. Cholelithiasis and choledocholithiasis obstructing distal choledocholithiasis with no observed contrast emptying into the duodenum. The cystic duct is patent. Consider ERCP for stone extraction and sphincterotomy to relieve the distal ductal obstruction. Chest X-Ray 10/17/24 11:39 IMPRESSION: No significant change from previous examination. Venous Doppler Study 10/17/24 13:00 IMPRESSION: 1. Right [id number] deep venous thrombosis in one of the paired right peroneal veins. Findings were discussed with Abeba crum, the nurse caring for the patient, at 1:07 PM. 2. No deep venous thrombosis in the left lower limb. 3. Small right Ren[place]'s cyst. Hepatobiliary Scan Nuclear Medicine 10/19/24 11:59 IMPRESSION: 1. Normal post cholecystectomy hepatobiliary scan with no bile leak. Ankle X-Ray 10/22/24 10:03 IMPRESSION: 1. Age-indeterminate, potentially subacute nondisplaced extra-articular fracture at the base of the left fourth proximal phalanx. Foot X-Ray 10/22/24 10:03 IMPRESSION: 1. Age-indeterminate, potentially subacute nondisplaced extra-articular fracture at the base of the left fourth proximal phalanx. Labs Labs: Laboratory Results - last 24 hr 10/21/24 10/21/24 10/21/24 16:51 18:31 20:43 WBC RBC Hgb Hct MCV MCH MCHC RDW Plt Count MPV Immature Gran % (Auto) Neut % (Auto) Lymph % (Auto) Bacon % (Auto) Eos % (Auto) Baso % (Auto) Lymph # (Auto) Bacon # (Auto) Eos # (Auto) Baso # (Auto) Abs Immat Gran (auto) Absolute Neuts (auto) Absolute Nucleated RBC Band Neutrophils % Nucleated RBC % Platelet Estimate Hypochromasia Anisocytosis Microcytosis Schistocytes APTT 44.6 H Sodium Potassium Chloride Carbon Dioxide Anion Gap BUN Creatinine Estim Creat Clear Calc Estimated GFR Glucose POC Capillary Glucose 167 H 198 H Calcium Phosphorus Total Bilirubin AST ALT Alkaline Phosphatase Total Protein Albumin 10/22/24 10/22/24 10/22/24 00:24 04:28 06:22 WBC 11.9 H RBC 3.06 L Hgb 8.9 L Hct 29.3 L MCV 95.8 MCH 29.1 MCHC 30.4 L RDW 15.1 H Plt Count 489 H MPV 8.8 Immature Gran % (Auto) 5.1 H Neut % (Auto) 65.4 Lymph % (Auto) 10.5 L Bacon % (Auto) 14.8 H Eos % (Auto) 3.2 Baso % (Auto) 1.0 Lymph # (Auto) 1.25 Bacon # (Auto) 1.8 H Eos # (Auto) 0.4 H Baso # (Auto) 0.1 Abs Immat Gran (auto) 0.61 H Absolute Neuts (auto) 7.8 H Absolute Nucleated RBC 0.000 Band Neutrophils % Not Reportable Nucleated RBC % 0.0 Platelet Estimate Increased Hypochromasia 1+ Anisocytosis 1+ Microcytosis 2+ Schistocytes None seen APTT 74.1 H 73.2 H Sodium 134 L Potassium 3.8 Chloride 94 L Carbon Dioxide 33 H Anion Gap 7 BUN 33 H Creatinine 2.43 H Estim Creat Clear Calc 23 Estimated GFR 25 L Glucose 126 H POC Capillary Glucose Calcium 8.3 L Phosphorus 3.0 Total Bilirubin 0.4 AST 33 ALT 14 Alkaline Phosphatase 81 Total Protein 6.6 Albumin 3.0 L 10/22/24 10/22/24 08:24 12:03 WBC RBC Hgb Hct MCV MCH MCHC RDW Plt Count MPV Immature Gran % (Auto) Neut % (Auto) Lymph % (Auto) Bacon % (Auto) Eos % (Auto) Baso % (Auto) Lymph # (Auto) Bacon # (Auto) Eos # (Auto) Baso # (Auto) Abs Immat Gran (auto) Absolute Neuts (auto) Absolute Nucleated RBC Band Neutrophils % Nucleated RBC % Platelet Estimate Hypochromasia Anisocytosis Microcytosis Schistocytes APTT Sodium Potassium Chloride Carbon Dioxide Anion Gap BUN Creatinine Estim Creat Clear Calc Estimated GFR Glucose POC Capillary Glucose 145 H 191 H Calcium Phosphorus Total Bilirubin AST ALT Alkaline Phosphatase Total Protein Albumin Quality VTE Prophylaxis VTE prophylaxis: mechanical ordered and pharmacologic ordered
[2024-10-22] MEDS: INSULIN ASPART (*BKC) 100 UNITS/ML SUB-Q (17:48)
[2024-10-22 18:43] LABS: Partial Thromboplastin Time 57.6 Seconds (22.3-36.8)
[2024-10-22 21:49] VITALS: BP 152/67; PULSE 77; RESP 16; TEMP 36.8; O2SAT 96
[2024-10-22] MEDS: APIXABAN 5 MG TABLET PO (22:06)
[2024-10-23] MEDS: MORPHINE SULFATE (*CRX) 15 MG TAB IR PO ×5 (02:35→22:07)
[2024-10-23 05:29] VITALS: BP 130/57; PULSE 74; RESP 16; TEMP 36.9; O2SAT 96
[2024-10-23] MEDS: MORPHINE SULFATE (*CRX) 4 MG/ML INJ 5 MG IV PUSH (05:57)
[2024-10-23 06:03] LABS: Alanine Aminotransferase 14 U/L (6-50); Albumin Level 3.0 g/dL (3.5-5.1); Alkaline Phosphatase 75 U/L (38-126); Anion Gap 7 mmol/L (4-12); Aspartate Amino Transferase 29 U/L (17-59); Bilirubin,Total 0.5 mg/dL (0.2-1.3); Blood Urea Nitrogen 32 mg/dL (9-20); Calcium 8.3 mg/dL (8.4-10.2); Carbon Dioxide 34 mmol/L (22-30); Chloride 93 mmol/L (98-107); Estimated CRCL calculation 26 ml/min; Estimated Glomerular Filt Rate 29; Glucose 122 mg/dL (65-110); Potassium 3.9 mmol/L (3.4-5.0); Sodium 134 mmol/L (137-145); Total Protein 6.5 g/dL (6.3-8.2)
[2024-10-23 06:04] LABS: Hematocrit 29.0 % (42.0-52.0); Hemoglobin 8.9 g/dL (14.0-18.0); Immature Granulocyte Percent A 4.4 % (0-0.5); Lymphocytes Absolute Auto 1.23 K/mm3 (0.9-3.2); Mean Corpuscular HGB Conc 30.7 g/dl (32-36); Mean Corpuscular Hemoglobin 29.2 pg (26-34); Mean Corpuscular Volume 95.1 fl (80-100); Nucleated Red Blood Cells Absolute Auto 0.000 K/mm3 (0.0-0.012); Nucleated Red Blood Cells Perc 0.0 % (0.0-0.2); Platelet Count Result 469 k/mm3 (150-375); Red Blood Count 3.05 M/mm3 (4.6-6.20); White Blood Count 12.7 K/mm3 (4.5-10.0)
[2024-10-23] MEDS: SACCHAROMYCES BOULARDII 250 MG CAPSULE PO ×2 (09:26→16:39)
[2024-10-23] MEDS: CLOPIDOGREL BISULFATE 75 MG TABLET PO (09:26)
[2024-10-23] MEDS: DOCUSATE SODIUM 100 MG CAPSULE PO (09:26)
[2024-10-23] MEDS: FINASTERIDE 5 MG TABLET PO (09:26)
[2024-10-23] MEDS: SODIUM CHLORIDE 500 MG TABLET PO ×2 (09:26→16:39)
[2024-10-23] MEDS: FUROSEMIDE 40 MG TABLET PO ×2 (09:26→16:39)
[2024-10-23] MEDS: EZETIMIBE 10 MG TABLET PO (09:26)
[2024-10-23] MEDS: PANTOPRAZOLE 40 MG TABLET PO (09:26)
[2024-10-23] MEDS: APIXABAN 5 MG TABLET PO ×2 (09:26→20:25)
[2024-10-23] MEDS: VERAPAMIL HCL 120 MG TABLET IMMED RELEASE PO ×2 (09:27→20:25)
[2024-10-23 09:28] VITALS: PULSE 86
--- NOTE | 2024-10-23 09:29 | PCOTNOTE ---
The patient treatment was not able to be completed. Refused at this time due to 10/10 pain RN Cat present and aware of pain. Will plan to continue treatment per plan of care.
[2024-10-23] MEDS: EPOETIN ALFA-EPBX 10,000 UNITS/ML VIAL 10000 UNITS SUB-Q (09:34)
--- NOTE | 2024-10-23 15:12 | PM.PNGS ---
Progress Note: A&P Assessment and Plan (1) Choledocholithiasis with acute cholecystitis: Code(s): K80.42 - Calculus of bile duct with acute cholecystitis without obstruction Status: Acute Assessment and Plan: Tolerating diet. H&H overall stable and no signs of active bleeding. Incisions healing well. Ordered NIA drain removal. Continue to monitor with serial abdominal exams. (2) Enterococcal bacteremia: Code(s): R78.81 - Bacteremia; B95.2 - Enterococcus as the cause of diseases classified elsewhere Status: Acute Assessment and Plan: Patient finished full course of antibiotics. They were stopped per hospitalist recs. Negative blood cultures on 10/08. (3) DVT (deep venous thrombosis): Code(s): I82.409 - Acute embolism and thrombosis of unspecified deep veins of unspecified lower extremity Status: Acute Assessment and Plan: Peroneal vein DVT, minimal risk for pulmonary embolism. Currently on clopidogrel and apixaban. 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 Plan I have discussed the patient's case and plan of care with Dr. Brennan. Subjective Subjective Date/Time Seen: 10/23/24 15:12 Patient reports: no new complaints, feels better, tolerating a regular diet and bowel movement Interval history: Patient is doing well. No new complaints. Mild incisional pain. Drain with serosanguineous fluid and no signs of bile or purulence. WBC remains in the [id number]. Vital signs stable. Still complains of some left ankle/foot pain. XRay yesterday showed no acute osseus abnormalities aside from age indeterminate extra-articular fracture of L 4th proximal phalanx. Exam GI: Inspection: distended, incision (Dry and glue intact, healing well), obesity and other (NIA with scant serosanguineous output) GI Palp: No Tenderness to palpation present (GI) Rectal Exam: deferred Other: Cholecystostomy tube in place with bilious drainage. Mild redness and ecchymosis surrounding incision sites. No tenderness to palpation of abdomen. Objective Data Vital Signs Vital Signs: Vital Signs - 24 hr 10/22/24 21:49 10/22/24 22:05 10/23/24 05:29 Temperature 98.2 F 98.4 F Pulse Rate 77 74 Respiratory Rate 16 16 Blood Pressure 152/67 H 130/57 L Pulse Oximetry 96 96 Oxygen Delivery Room Air 10/23/24 09:28 Temperature Pulse Rate 86 Respiratory Rate Blood Pressure Pulse Oximetry Oxygen Delivery Intake/Output Intake/Output: Intake & Output 10/20/24 10/21/24 10/22/24 10/23/24 23:59 23:59 23:59 23:59 Intake Total 2070 1820 1470.4 450 Output Total 1065 1525 1880 850 Balance 1005 295 -409.6 -400 Meds/Results Medications: Active Medications Generic Name Dose Route Start Last Admin Trade Name Freq PRN Reason Stop Dose Admin Acetaminophen 500 mg 10/18/24 18:55 10/22/24 13:36 Acetaminophen 500 Mg Tablet PO 500 mg Q6H PRN Administration Pain Rated 1-3 Albuterol 2 puff 10/03/24 15:40 10/04/24 09:06 Albuterol Sulfate (*Sp) Aerosol 1 Puff INHALATION 2 puff Q6HRT PRN Administration Shortness Of Breath Or Wheezing Apixaban 5 mg 10/22/24 21:00 10/23/24 09:26 Apixaban 5 Mg Tablet PO 5 mg Q12HR VU Administration Clopidogrel Bisulfate 75 mg 10/01/24 09:00 10/23/24 09:26 Clopidogrel Bisulfate 75 Mg Tablet PO 75 mg DAILY VU Administration Dextrose 12.5 gm 09/30/24 20:29 Dextrose 50% 25 Gm/50 Ml Syringe IV PUSH PRN PRN Hypoglycemia Protocol Docusate Sodium 100 mg 10/01/24 09:00 10/23/24 09:26 Docusate Sodium 100 Mg Capsule PO 100 mg DAILY VU Administration Ezetimibe 10 mg 10/01/24 09:00 10/23/24 09:26 Ezetimibe 10 Mg Tablet PO 10 mg DAILY VU Administration Epoetin Gordo-epbx 10,000 units 10/16/24 09:00 10/23/24 09:34 Epoetin Gordo-Epbx 10,000 Units/Ml Vial SUB-Q 10,000 units TUTHSA@09 VU Administration Finasteride 5 mg 10/01/24 09:00 10/23/24 09:26 Finasteride 5 Mg Tablet PO 5 mg DAILY VU Administration Fluticasone Propionate 2 spray 09/30/24 20:28 10/14/24 08:33 Fluticasone Propionate 0.05% Na Spr 16 Gm Btl (*Bkc) NASAL 2 spray DAILY PRN Administration allergy symptoms Furosemide 40 mg 10/09/24 09:00 10/23/24 09:26 Furosemide 40 Mg Tablet PO 40 mg BID VU Administration Glucagon 1 mg 09/30/24 20:29 Glucagon For Inj 1 Mg Vial IM PRN PRN Hypoglycemia Protocol Glucose 15 gm 09/30/24 20:29 Glucose Oral Gel 15 Gm Of Glucse In 37.5 Gm Tube PO PRN PRN Hypoglycemia Protocol Dextrose 1,000 mls @ 100 mls/hr 09/30/24 20:29 Dextrose 5% 1,000 Ml IVPB PRN PRN Hypoglycemia Protocol Insulin Aspart 1 - 3 units 09/30/24 21:00 10/22/24 21:34 Insulin Aspart (*Bkc) 100 Units/Ml SUB-Q Not Given HS [facility] Protocol Insulin Aspart 3 - 6 units 10/01/24 08:00 10/23/24 11:51 Insulin Aspart (*Bkc) 100 Units/Ml SUB-Q Not Given TIDWM [facility] Protocol Morphine Sulfate 15 mg 10/07/24 09:53 10/23/24 14:09 Morphine Sulfate (*Crx) 15 Mg Tab Ir PO 15 mg Q4H PRN Administration Pain Rated 7-10 Morphine Sulfate 3 mg 10/18/24 18:55 10/19/24 05:55 Morphine Sulfate (*Crx) 2 Mg/Ml Inj IV PUSH 3 mg Q2H PRN Administration Breakthrough Pain Rated 4-6 or NPO Morphine Sulfate 5 mg 10/18/24 18:55 10/23/24 05:57 Morphine Sulfate (*Crx) 4 Mg/Ml Inj IV PUSH 5 mg Q2H PRN Administration Breakthrough Pain Rated 7-10 or NPO Naloxone HCl 0.1 mg 10/18/24 18:55 Naloxone Hcl 0.4 Mg/Ml Vial IV PUSH Q2M PRN Opiate Reversal Ondansetron HCl 4 mg 09/30/24 19:02 10/12/24 11:54 Ondansetron Inj 4 Mg/2 Ml Vial IV PUSH 4 mg Q4H PRN Administration Nausea Pantoprazole Sodium 40 mg 10/07/24 09:00 10/23/24 09:26 Pantoprazole 40 Mg Tablet PO 40 mg QAM VU Administration Polyethylene Glycol 17 gm 10/10/24 13:40 10/23/24 09:27 Polyethylene Glycol 3350 17 Gm Powd.Pack PO 17 gm QAM VU Administration Saccharomyces Boulardii 250 mg 10/11/24 17:00 10/23/24 09:26 Saccharomyces Boulardii 250 Mg Capsule PO 250 mg BID VU Administration Sodium Chloride 500 mg 10/06/24 17:00 10/23/24 09:26 Sodium Chloride 500 Mg Tablet PO 500 mg BID VU Administration Verapamil HCl 120 mg 09/30/24 21:00 10/23/24 09:27 Verapamil Hcl 120 Mg Tablet Immed Release PO 120 mg Q12HR VU Administration Radiology Results: ITS Impressions Abdomen/Pelvis CT 09/30/24 19:00 IMPRESSION: Gallbladder hydrops without inflammatory change. Dilated common bile duct, measuring 14 mm. No obstructing stone or mass detected. Correlate with biliary labs. 3.4 cm fusiform infrarenal abdominal aortic aneurysm. Consider follow-up in 3 years. Upper Quadrant Ultrasound 10/01/24 08:43 IMPRESSION: 1. Cholelithiasis with a normal-appearing gallbladder but with mild intra and extrahepatic biliary ductal dilation which raises concern for a nonvisualized distal obstructing choledocholithiasis. Correlate with liver function tests and if clinically indicated could consider further evaluation with either MRCP or ERCP. Cholecystostomy 10/05/24 16:57 IMPRESSION: 1. Successful ultrasound-guided cholecystostomy tube placement. 2. 35 mL bile was sent for aerobic, anaerobic, and fungal cultures. 3. The catheter will be managed by Dr. Brennan. Cholangiogram 10/12/24 14:45 IMPRESSION: 1. Cholelithiasis and choledocholithiasis obstructing distal choledocholithiasis with no observed contrast emptying into the duodenum. The cystic duct is patent. Consider ERCP for stone extraction and sphincterotomy to relieve the distal ductal obstruction. Chest X-Ray 10/17/24 11:39 IMPRESSION: No significant change from previous examination. Venous Doppler Study 10/17/24 13:00 IMPRESSION: 1. Right [id number] deep venous thrombosis in one of the paired right peroneal veins. Findings were discussed with Abeba crum, the nurse caring for the patient, at 1:07 PM. 2. No deep venous thrombosis in the left lower limb. 3. Small right [place]'s cyst. Hepatobiliary Scan Nuclear Medicine 10/19/24 11:59 IMPRESSION: 1. Normal post cholecystectomy hepatobiliary scan with no bile leak. Ankle X-Ray 10/22/24 10:03 IMPRESSION: 1. Age-indeterminate, potentially subacute nondisplaced extra-articular fracture at the base of the left fourth proximal phalanx. Foot X-Ray 10/22/24 10:03 IMPRESSION: 1. Age-indeterminate, potentially subacute nondisplaced extra-articular fracture at the base of the left fourth proximal phalanx. Labs Labs: Laboratory Results - last 24 hr 10/22/24 10/22/24 10/22/24 17:04 18:10 20:36 WBC RBC Hgb Hct MCV MCH MCHC RDW Plt Count MPV Immature Gran % (Auto) Neut % (Auto) Lymph % (Auto) [place] % (Auto) Eos % (Auto) Baso % (Auto) Lymph # (Auto) [place] # (Auto) Eos # (Auto) Baso # (Auto) Abs Immat Gran (auto) Absolute Neuts (auto) Absolute Nucleated RBC Nucleated RBC % APTT 57.6 H Sodium Potassium Chloride Carbon Dioxide Anion Gap BUN Creatinine Estim Creat Clear Calc Estimated GFR Glucose POC Capillary Glucose 214 H 149 H Calcium Total Bilirubin AST ALT Alkaline Phosphatase Total Protein Albumin 10/23/24 10/23/24 10/23/24 05:16 08:00 11:45 WBC 12.7 H RBC 3.05 L Hgb 8.9 L Hct 29.0 L MCV 95.1 MCH 29.2 MCHC 30.7 L RDW 15.1 H Plt Count 469 H MPV 8.9 Immature Gran % (Auto) 4.4 H Neut % (Auto) 68.1 Lymph % (Auto) 9.7 L [place] % (Auto) 14.8 H Eos % (Auto) 2.1 Baso % (Auto) 0.9 Lymph # (Auto) 1.23 [place]field # (Auto) 1.9 H Eos # (Auto) 0.3 Baso # (Auto) 0.1 Abs Immat Gran (auto) 0.56 H Absolute Neuts (auto) 8.6 H Absolute Nucleated RBC 0.000 Nucleated RBC % 0.0 APTT Sodium 134 L Potassium 3.9 Chloride 93 L Carbon Dioxide 34 H Anion Gap 7 BUN 32 H Creatinine 2.16 H Estim Creat Clear Calc 26 Estimated GFR 29 L Glucose 122 H POC Capillary Glucose 146 H 152 H Calcium 8.3 L Total Bilirubin 0.5 AST 29 ALT 14 Alkaline Phosphatase 75 Total Protein 6.5 Albumin 3.0 L
[2024-10-23 15:30] VITALS: BP 133/57; PULSE 82; RESP 16; TEMP 36.9; O2SAT 98
--- NOTE | 2024-10-23 16:01 | P.PNIM_ITS ---
Progress Note: A&P Assessment and Plan (1) S/P cholecystectomy: Code(s): Z90.49 - Acquired absence of other specified parts of digestive tract Status: Acute Assessment and Plan: s/p OR 10/[address] Brennan for infected gallbladder, gallbladder hydrops. Intraop bleeding s/p 1 unit of PRBC. Bood count now stable. HIDA scan no evidence of bleeding post op. NIA drain with minimal serosanguinous drainage PLAN -- Antibiotics for bacteremia as noted: Ampicillin, Ceftriaxone, and Metronidazole --Resumed diet and tolerating. Had a BM 10/21 --Type and screen active 10/20 --Resume Plavix in AM, ok per surgery recs --Transfuse for hgb <7, s/p 1 unite 10/18 --Heparin drip off post op. OK to restart heparin drip today per surgery recs (2) Bacteremia: Code(s): R78.81 - Bacteremia Status: Acute Assessment and Plan: LABS 10/04 Blood culutre 1 enterococcus faecalis 10/05 Blood cultures 05/27 enterococcus faecalis 10/05 Fungal cx--NGTD 10/05 Gallbladder culture enteroccus species 10/08 Blood cultures 05/27 No growth Antbiotics Treated with empiric Vanc and Ceftriaxone, changed to Ampicillin and Gentamycin 10/07 --Continue Ampicillin, Ceftriaxone, and Metronidazole (3) Acute DVT (deep venous thrombosis): Code(s): I82.409 - Acute embolism and thrombosis of unspecified deep veins of unspecified lower extremity Status: Acute Assessment and Plan: Acute peroneal DVT on dopplers 10/17. Started heparin drip and held for surgery --Restart heparin drip without a bolus --When therapeutic, can switch to oral anticoagulation (4) Acute kidney injury superimposed on CKD: Code(s): N17.9 - Acute kidney failure, unspecified; N18.9 - Chronic kidney disease, unspecified Status: Acute Assessment and Plan: Patient has chronic kidney disease stage 4 with acute kidney injury. Most likely prerenal due to intervascular volume depletion. Initially held Lasix and rehydrated, fluids at 75ml/hr. Nephrology was consulted from the ER. 10/02- cr/bun 2.96/100, peaked 10/05: Cr/BUN: 3.54/94. Has been fluctuating, but stable at 40/2.64 on furosemide side 10/09. 09/30 UA trace protein. 10/01 protein/creat ratio 0.36 - Continue flomax --continue furosemide 20mg daily --Nephrology following, appreciate recommendations (5) Type 2 diabetes mellitus with hyperglycemia, without long-term current use of insulin: Code(s): E11.65 - Type 2 diabetes mellitus with hyperglycemia Status: Chronic Assessment and Plan: Holding Actos -Moderate dose sliding scale insulin with Accu-Cheks a.c. HS and hypoglycemia protocol. -Glucose has been stable during stay (6) Elevated brain natriuretic peptide (BNP) level: Code(s): R79.89 - Other specified abnormal findings of blood chemistry Status: Acute Assessment and Plan: LABS: 10/11: BNP 9,700. Lasix 40 mg ivp x 1 given. Trending down with furosemide 40mg BID and creatinine improving. 10/13 Echocardiogram showed: Summary 1. Definity contrast administered improved wall motion interpretation. 2. Left ventricular chamber dimension is normal. 3. Left ventricular systolic function is normal, estimated at 60-65. 4. There is moderate concentric increased left ventricular wall thickness. 5. The left ventricular diastolic function is grade I diastolic dysfunction. 6. E/e' 15 is elevated. 7. Left atrial chamber dimension is mildly enlarged. 8. 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 Consider ADOLFO if clinically indicated. 9. There is moderate to severe mitral valve regurgitation. 10. Circumferential echogenic mass measuring 1.4 cm x 0.8 cm attached to left atrial side of mitral valve annulus which probably calcified mass. There is an additional small calcified echogenic mass attached to left ventricular side of posterior mitral valve leaflet. Probably calcifications more likely than vegetations. Consider ADOLFO if clinically indicated. 11. There is mild tricuspid valve regurgitation. 12. Mild pulmonary hypertension, estimated pulmonary arterial systolic pressure is 40 mmHg. 13. There is trace pulmonic regurgitation. 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 No shortness of breath. Thought to be more consistent with GI cause with reported indigestion and significant right upper quadrant pain. Cardiology has been following -Troponins 0.053, 0.080, 0.090 -Holding Antihypertensives and Plavix. --> Plavix on hold since 10/05 for lap torrie per surg. Initially deferred 05/27 bacteremia. Can resume per surgery. Restart 10/22 if no bleeding on heparin drip --Started heparin drip for acute DVT. On hold for surgery and can resuming today (9) Hyponatremia: Code(s): E87.1 - Hypo-osmolality and hyponatremia Status: Acute Assessment and Plan: Levels have been slightly ow since admission despite IVF NS. -Sodium chloride tablets 500mg started 10/06 and sodium improved from 131<136. Has been 131-136 in the last week -Trending with daily labs. Decrease sodium tabs as able (10) Antiplatelet or antithrombotic long-term use: Code(s): Z79.02 - supervisor intermediates (current) use of antithrombotics/antiplatelets Status: Chronic Assessment and Plan: Pt with hx of pacemaker and plavix long-term use. Plavix on hold, last dose 10/12. --Start heparin drip. Resume plavix in AM if blood count stable overnight (11) Acute pain: Code(s): R52 - Pain, unspecified Status: Acute Assessment and Plan: Acute on chronic pain. High risk medication use with IV opiates for pain --Continue home morphine 15 mg PO --Tylenol TID prn --Morphine IR, Morphine 3-5mg IV prn --Bowel regimen: miralax Plan patient with choledocholithiasis with acute cholecystitis had ERCP which showed with many stone in the bile duct and removed, had cholecystectomy which showed gallbladder full of stone, patient was treated for cholecystitis ceftriaxone and metronidazole, patient developed enterococcal bacteremia and being treated with Ampicillin, and on 10/22 was his last day of the antibiotics. patient is seen by surgery service will remove NIA drain today. patient was found to have peroneal vein DVT and has been treated with heparin, today will start patient on Eliquis, today patient c/o pain in left foot, which is going of 2 days, patient has been in the hospital 31 days, denies any trauma, x-ray of the foot showed age- indeterminate, potentially subacute nondisplaced extra-articular fracture at the base of the left fourth proximal phalanx. will consult an orthopedic for recommendation and will plan. patient remains clinically stable, will be seen by surgery service and further recommendation to follow. Subjective Date/time seen: 10/23/24 16:01 Interval history: Blood count stable overnight Has been getting up out of bed and not dizzy had a BM today Patient has had a prolonged hospitalization, almost 31 days. He needs continued hospitalization to monitor for bleeding post op while restarting anticoagulation for acute DVT. Also on IV antibiotics. patient with choledocholithiasis with acute cholecystitis had ERCP which showed with many stone in the bile duct and removed, had cholecystectomy which showed gallbladder full of stone, patient was treated for cholecystitis ceftriaxone and metronidazole, patient developed enterococcal bacteremia and being treated with Ampicillin, and on 10/22 was his last day of the antibiotics. patient is seen by surgery service will remove NIA drain today. patient was found to have peroneal vein DVT and has been treated with heparin, today will start patient on Eliquis, today patient c/o pain in left foot, which is going of 2 days, patient has been in the hospital 31 days, denies any trauma, x-ray of the foot showed age- indeterminate, potentially subacute nondisplaced extra-articular fracture at the base of the left fourth proximal phalanx. will consult an orthopedic for recommendation and will plan. patient remains clinically stable, will be seen by surgery service and further recommendation to follow. Review of Systems Review of Systems: 12 systems were reviewed with pertinent positives and negatives per HPI. Except as documented in the HPI, all other systems were reviewed and are negative. All systems reviewed & are unremarkable except as noted in HPI and below Exam Narrative: Patient is comfortable, NAD HEENT: eyes are clear and none icteric LUNGS:CTA HEART: RR S1S2 ABD: BS+, Soft and nontender Lower extremities: no edema SKIN: nonjaundiced Neuro: grossly intact. Objective Data Vital Signs Vital Signs: Vital Signs - 24 hr 10/22/24 21:49 10/22/24 22:05 10/23/24 05:29 Temperature 36.8 C 36.9 C Pulse Rate 77 74 Respiratory Rate 16 16 Blood Pressure 152/67 H 130/57 L Pulse Oximetry 96 96 Oxygen Delivery Room Air 10/23/24 09:28 10/23/24 15:30 Temperature 36.9 C Pulse Rate 86 82 Respiratory Rate 16 Blood Pressure 133/57 L Pulse Oximetry 98 Oxygen Delivery Intake/Output Intake/Output: Intake & Output 10/20/24 10/21/24 10/22/24 10/23/24 23:59 23:59 23:59 23:59 Intake Total 2070 1820 1470.4 930 Output Total 1065 1525 1880 850 Balance 1005 295 -409.6 80 Meds/Results Medications: Active Medications Generic Name Dose Route Start Last Admin Trade Name Freq PRN Reason Stop Dose Admin Acetaminophen 500 mg 10/18/24 18:55 10/22/24 13:36 Acetaminophen 500 Mg Tablet PO 500 mg Q6H PRN Administration Pain Rated 1-3 Albuterol 2 puff 10/03/24 15:40 10/04/24 09:06 Albuterol Sulfate (*Sp) Aerosol 1 Puff INHALATION 2 puff Q6HRT PRN Administration Shortness Of Breath Or Wheezing Apixaban 5 mg 10/22/24 21:00 10/23/24 09:26 Apixaban 5 Mg Tablet PO 5 mg Q12HR VU Administration Clopidogrel Bisulfate 75 mg 10/01/24 09:00 10/23/24 09:26 Clopidogrel Bisulfate 75 Mg Tablet PO 75 mg DAILY VU Administration Dextrose 12.5 gm 09/30/24 20:29 Dextrose 50% 25 Gm/50 Ml Syringe IV PUSH PRN PRN Hypoglycemia Protocol Docusate Sodium 100 mg 10/01/24 09:00 10/23/24 09:26 Docusate Sodium 100 Mg Capsule PO 100 mg DAILY VU Administration Ezetimibe 10 mg 10/01/24 09:00 10/23/24 09:26 Ezetimibe 10 Mg Tablet PO 10 mg DAILY VU Administration Epoetin [place]-epbx 10,000 units 10/16/24 09:00 10/23/24 09:34 Epoetin [place]-Epbx 10,000 Units/Ml Vial SUB-Q 10,000 units TUTHSA@09 VU Administration Finasteride 5 mg 10/01/24 09:00 10/23/24 09:26 Finasteride 5 Mg Tablet PO 5 mg DAILY VU Administration Fluticasone Propionate 2 spray 09/30/24 20:28 10/14/24 08:33 Fluticasone Propionate 0.05% Na Spr 16 Gm Btl (*Bkc) NASAL 2 spray DAILY PRN Administration allergy symptoms Furosemide 40 mg 10/09/24 09:00 10/23/24 09:26 Furosemide 40 Mg Tablet PO 40 mg BID VU Administration Glucagon 1 mg 09/30/24 20:29 Glucagon For Inj 1 Mg Vial IM PRN PRN Hypoglycemia Protocol Glucose 15 gm 09/30/24 20:29 Glucose Oral Gel 15 Gm Of Glucse In 37.5 Gm Tube PO PRN PRN Hypoglycemia Protocol Dextrose 1,000 mls @ 100 mls/hr 09/30/24 20:29 Dextrose 5% 1,000 Ml IVPB PRN PRN Hypoglycemia Protocol Insulin Aspart 1 - 3 units 09/30/24 21:00 10/22/24 21:34 Insulin Aspart (*Bkc) 100 Units/Ml SUB-Q Not Given HS [facility] Protocol Insulin Aspart 3 - 6 units 10/01/24 08:00 10/23/24 11:51 Insulin Aspart (*Bkc) 100 Units/Ml SUB-Q Not Given TIDWM [facility] Protocol Morphine Sulfate 15 mg 10/07/24 09:53 10/23/24 14:09 Morphine Sulfate (*Crx) 15 Mg Tab Ir PO 15 mg Q4H PRN Administration Pain Rated 7-10 Morphine Sulfate 3 mg 10/18/24 18:55 10/19/24 05:55 Morphine Sulfate (*Crx) 2 Mg/Ml Inj IV PUSH 3 mg Q2H PRN Administration Breakthrough Pain Rated 4-6 or NPO Morphine Sulfate 5 mg 10/18/24 18:55 10/23/24 05:57 Morphine Sulfate (*Crx) 4 Mg/Ml Inj IV PUSH 5 mg Q2H PRN Administration Breakthrough Pain Rated 7-10 or NPO Naloxone HCl 0.1 mg 10/18/24 18:55 Naloxone Hcl 0.4 Mg/Ml Vial IV PUSH Q2M PRN Opiate Reversal Ondansetron HCl 4 mg 09/30/24 19:02 10/12/24 11:54 Ondansetron Inj 4 Mg/2 Ml Vial IV PUSH 4 mg Q4H PRN Administration Nausea Pantoprazole Sodium 40 mg 10/07/24 09:00 10/23/24 09:26 Pantoprazole 40 Mg Tablet PO 40 mg QAM VU Administration Polyethylene Glycol 17 gm 10/10/24 13:40 10/23/24 09:27 Polyethylene Glycol 3350 17 Gm Powd.Pack PO 17 gm QAM VU Administration Saccharomyces Boulardii 250 mg 10/11/24 17:00 10/23/24 09:26 Saccharomyces Boulardii 250 Mg Capsule PO 250 mg BID VU Administration Sodium Chloride 500 mg 10/06/24 17:00 10/23/24 09:26 Sodium Chloride 500 Mg Tablet PO 500 mg BID VU Administration Verapamil HCl 120 mg 09/30/24 21:00 10/23/24 09:27 Verapamil Hcl 120 Mg Tablet Immed Release PO 120 mg Q12HR VU Administration Radiology Results: ITS Impressions Abdomen/Pelvis CT 09/30/24 19:00 IMPRESSION: Gallbladder hydrops without inflammatory change. Dilated common bile duct, measuring 14 mm. No obstructing stone or mass detected. Correlate with biliary labs. 3.4 cm fusiform infrarenal abdominal aortic aneurysm. Consider follow-up in 3 years. Upper Quadrant Ultrasound 10/01/24 08:43 IMPRESSION: 1. Cholelithiasis with a normal-appearing gallbladder but with mild intra and extrahepatic biliary ductal dilation which raises concern for a nonvisualized distal obstructing choledocholithiasis. Correlate with liver function tests and if clinically indicated could consider further evaluation with either MRCP or ERCP. Cholecystostomy 10/05/24 16:57 IMPRESSION: 1. Successful ultrasound-guided cholecystostomy tube placement. 2. 35 mL bile was sent for aerobic, anaerobic, and fungal cultures. 3. The catheter will be managed by Dr. Brennan. Cholangiogram 10/12/24 14:45 IMPRESSION: 1. Cholelithiasis and choledocholithiasis obstructing distal choledocholithiasis with no observed contrast emptying into the duodenum. The cystic duct is patent. Consider ERCP for stone extraction and sphincterotomy to relieve the distal ductal obstruction. Chest X-Ray 10/17/24 11:39 IMPRESSION: No significant change from previous examination. Venous Doppler Study 10/17/24 13:00 IMPRESSION: 1. Right [id number] deep venous thrombosis in one of the paired right peroneal veins. Findings were discussed with Abeba crum, the nurse caring for the patient, at 1:07 PM. 2. No deep venous thrombosis in the left lower limb. 3. Small right [place]'s cyst. Hepatobiliary Scan Nuclear Medicine 10/19/24 11:59 IMPRESSION: 1. Normal post cholecystectomy hepatobiliary scan with no bile leak. Ankle X-Ray 10/22/24 10:03 IMPRESSION: 1. Age-indeterminate, potentially subacute nondisplaced extra-articular fracture at the base of the left fourth proximal phalanx. Foot X-Ray 10/22/24 10:03 IMPRESSION: 1. Age-indeterminate, potentially subacute nondisplaced extra-articular fracture at the base of the left fourth proximal phalanx. Labs Labs: Laboratory Results - last 24 hr 10/22/24 10/22/24 10/22/24 17:04 18:10 20:36 WBC RBC Hgb Hct MCV MCH MCHC RDW Plt Count MPV Immature Gran % (Auto) Neut % (Auto) Lymph % (Auto) [place] % (Auto) Eos % (Auto) Baso % (Auto) Lymph # (Auto) [place] # (Auto) Eos # (Auto) Baso # (Auto) Abs Immat Gran (auto) Absolute Neuts (auto) Absolute Nucleated RBC Nucleated RBC % APTT 57.6 H Sodium Potassium Chloride Carbon Dioxide Anion Gap BUN Creatinine Estim Creat Clear Calc Estimated GFR Glucose POC Capillary Glucose 214 H 149 H Calcium Total Bilirubin AST ALT Alkaline Phosphatase Total Protein Albumin 10/23/24 10/23/24 10/23/24 05:16 08:00 11:45 WBC 12.7 H RBC 3.05 L Hgb 8.9 L Hct 29.0 L MCV 95.1 MCH 29.2 MCHC 30.7 L RDW 15.1 H Plt Count 469 H MPV 8.9 Immature Gran % (Auto) 4.4 H Neut % (Auto) 68.1 Lymph % (Auto) 9.7 L [place] % (Auto) 14.8 H Eos % (Auto) 2.1 Baso % (Auto) 0.9 Lymph # (Auto) 1.23 [place] # (Auto) 1.9 H Eos # (Auto) 0.3 Baso # (Auto) 0.1 Abs Immat Gran (auto) 0.56 H Absolute Neuts (auto) 8.6 H Absolute Nucleated RBC 0.000 Nucleated RBC % 0.0 APTT Sodium 134 L Potassium 3.9 Chloride 93 L Carbon Dioxide 34 H Anion Gap 7 BUN 32 H Creatinine 2.16 H Estim Creat Clear Calc 26 Estimated GFR 29 L Glucose 122 H POC Capillary Glucose 146 H 152 H Calcium 8.3 L Total Bilirubin 0.5 AST 29 ALT 14 Alkaline Phosphatase 75 Total Protein 6.5 Albumin 3.0 L Quality VTE Prophylaxis VTE prophylaxis: mechanical ordered and pharmacologic ordered
--- NOTE | 2024-10-23 16:03 | PCPTNOTE ---
The patient treatment was not able to be completed on 10/23/2024 due to waiting on ortho consult. Will plan to continue treatment per plan of care.
[2024-10-23 20:24] VITALS: BP 136/57; PULSE 71; RESP 18; TEMP 36.5; O2SAT 97
[2024-10-23 20:52] LABS: Partial Thromboplastin Time 47.1 Seconds (22.3-36.8)
[2024-10-24] MEDS: MORPHINE SULFATE (*CRX) 15 MG TAB IR PO ×3 (02:45→13:56)
[2024-10-24 05:47] VITALS: BP 138/65; PULSE 76; RESP 18; TEMP 36.6; O2SAT 96
--- NOTE | 2024-10-24 07:09 | P.CONOP_ITS ---
Assessment and Plan Assessment and plan (1) Fracture of toe of left foot: Code(s): S92.912A - Unspecified fracture of left toe(s), initial encounter for closed fracture Status: Acute Plan 88 yr old male s/p cholecystectomy with mulitple medical problems. He has been inpatient for over 3 weeks. More recently, he complained of Left Foot pain. Unsure of how he may have injured his foot. Xrays showed Nondisplaced extra articular fracture at the base of the fourth proximal phalanx. He has been Weight bearing as tolerated with physical Therapy with Walker. Stable fracture. No brace required. WBAT. Can follow up with Dr Ng [phone] after discharge. History of Present Illness HPI Consult date: 10/23/24 Chief complaint: Left Foot Toe Fracture Narrative: 88 yr old male s/p cholecystectomy with mulitple medical problems. He has been inpatient for over 3 weeks. More recently, he complained of Left Foot pain. Unsure of how he may have injured his foot. Xrays showed Nondisplaced extra articular fracture at the base of the fourth proximal phalanx. He has been Weight bearing as tolerated with physical Therapy with Walker. Review of Systems 2 Review of Systems: All systems reviewed & are unremarkable except as noted in HPI and below PMFSH Past Medical History Medical History AAA (abdominal aortic aneurysm) 3.6 cm Choledocholithiasis with acute cholecystitis Cholangitis Elevated LFTs Chronic pain 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 URI (upper respiratory infection) Preoperative clearance History of colon polyps Dupuytren's contracture of right hand Pre-operative clearance Trigger finger, right middle finger Iron deficiency anemia Low back pain radiating to left leg Type II diabetes mellitus with renal manifestations Essential hypertension, benign Mixed hyperlipidemia Bilateral inguinal hernia Small fat containing bilateral inguinal hernias noted on CT 09/30/2024 Hepatic steatosis Chronic pain GERD (gastroesophageal reflux disease) Dyslipidemia BPH (benign prostatic hyperplasia) Type 2 diabetes mellitus Hypertension Hyperlipidemia Chronic kidney disease Heart failure 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 moderate mitral valve regurgitation Surgical History Surgical History (Updated 10/21/24 @ 17:55 by Shanel Pendleton APRN) History of repair of right rotator cuff (~07/05/14) Subacromial Decompression; Limited Debridement Status post cataract extraction of both eyes with insertion of intraocular lens 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 He has 3 children. He is a retired [employer]. He he is a lifelong nonsmoker and does not drink alcohol or use illicit substances. He ambulates with a walker. Code status: Full code (he states he would not want long-term intubation or feeding tube) Surrogate decision maker: Nallely () Smoking status: Never smoker Second hand tobacco smoke exposure: No Alcohol intake: never Substance use: never Do You Feel Safe in your Home?: Yes Lack of Transportation: YES Lack of Food: Never True Current Housing: I Have Housing Concerned About Future Housing: No Difficulty Paying Gas/Electric Bills: No Difficulty Paying for Meds: No Currently Unemployed: No Education: High School Diploma/GED Difficulty w/ Childcare or Family Care: No Living arrangements: with family Gender identity (if verbalized by the patient): Male Spiritual care concerns: No Meds Home Medications and Allergies Home Medications ?Medication ?Instructions ?Recorded ?Confirmed ?Type furosemide 40 mg tablet See Rx Instructions .Route 08/02/24 10/07/24 Rx .COMPLEX #180 tabs doxazosin 4 mg tablet (Cardura) 4 mg PO QHS #30 tabs 08/08/24 08/08/24 Rx clopidogrel 75 mg tablet (Plavix) 75 mg PO DAILY 09/30/24 09/30/24 History docusate sodium 100 mg capsule 100 mg PO DAILY 09/30/24 09/30/24 History (Colace) ezetimibe 10 mg tablet (Zetia) 10 mg PO DAILY 09/30/24 09/30/24 History famotidine 20 mg tablet (Acid 20 mg PO BID 09/30/24 09/30/24 History Controller) finasteride 5 mg tablet 5 mg PO DAILY 09/30/24 09/30/24 History fluticasone propionate 50 2 spray intranasal DAILY PRN 09/30/24 09/30/24 History mcg/actuation nasal allergy symptoms spray,suspension (Flonase Allergy Relief) metolazone 5 mg tablet 5 mg PO DAILY 09/30/24 09/30/24 History morphine 15 mg immediate release 15 mg PO Q8H PRN pain 09/30/24 09/30/24 History tablet pioglitazone 15 mg tablet (Actos) 15 mg PO DAILY 09/30/24 09/30/24 History verapamil 120 mg tablet 120 mg PO DAILY 09/30/24 09/30/24 History Allergies Allergy/AdvReac Type Severity Reaction Status Date / Time atorvastatin Allergy Unknown myalgia Verified 10/18/24 14:17 rosuvastatin Allergy Unknown myalgia Verified 10/18/24 14:17 Vital Signs Vital Signs - 24 hr 10/23/24 09:28 10/23/24 15:30 10/23/24 20:20 Temperature 36.9 C Pulse Rate 86 82 Respiratory Rate 16 Blood Pressure 133/57 L Pulse Oximetry 98 Oxygen Delivery Room Air 10/23/24 20:24 10/24/24 05:47 Temperature 36.5 C 36.6 C Pulse Rate 71 76 Respiratory Rate 18 18 Blood Pressure 136/57 L 138/65 Pulse Oximetry 97 96 Oxygen Delivery Exam 2 Narrative: Left Foot with moderate swelling at the 4th toe. Minimal tenderness to palpation to all toes. Range of motion, active and passive is symmetric to Right foot. Const: General: cooperative, comfortable, no acute distress, well developed, awake and overweight Nutritional Appearance: overweight O rientation/consciousness: oriented to person and oriented to place Results Labs 10/23/24 05:16 10/23/24 05:16 Labs: Abnormal lab results 10/23/24 10/23/24 10/23/24 Range/Units 08:00 11:45 17:19 APTT (22.3-36.8) Seconds POC Capillary Glucose 146 H 152 H 155 H (65-105) mg/dl 10/23/24 10/23/24 Range/Units 19:46 20:13 APTT 47.1 H (22.3-36.8) Seconds POC Capillary Glucose 169 H (65-105) mg/dl H & H 09/30/24 10/01/24 10/02/24 Range/Units 16:03 03:52 04:32 Hgb 12.0 10.9 L 10.0 L (12.0-15.0) g/dL Hct 38.3 33.3 L 31.4 L (37.0-47.0) % 10/03/24 10/04/24 10/05/24 Range/Units 04:59 04:59 05:50 Hgb 9.6 L 9.8 L 9.9 L (12.0-15.0) g/dL Hct 30.5 L 30.5 L 31.3 L (37.0-47.0) % 10/06/24 10/07/24 10/08/24 Range/Units 05:31 05:23 04:55 Hgb 10.8 L 9.7 L 10.3 L (12.0-15.0) g/dL Hct 35.4 L 29.8 L 31.7 L (37.0-47.0) % 10/09/24 10/10/24 10/11/24 Range/Units 08:01 04:48 05:10 Hgb 9.2 L 9.1 L 9.1 L (12.0-15.0) g/dL Hct 28.7 L 28.4 L 28.0 L (37.0-47.0) % 10/12/24 10/13/24 10/14/24 Range/Units 04:46 05:52 04:40 Hgb 8.6 L 8.5 L 8.6 L (12.0-15.0) g/dL Hct 27.2 L 26.9 L 27.0 L (37.0-47.0) % 10/15/24 10/16/24 10/17/24 Range/Units 04:54 05:14 04:50 Hgb 9.3 L 9.2 L 9.3 L (12.0-15.0) g/dL Hct 29.9 L 29.5 L 30.3 L (37.0-47.0) % 10/17/24 10/18/24 10/19/24 Range/Units 14:35 04:16 05:50 Hgb 8.8 L 9.1 L 9.5 L (12.0-15.0) g/dL Hct 28.1 L 29.7 L 30.0 L (37.0-47.0) % 10/20/24 10/21/24 10/22/24 Range/Units 05:36 05:18 04:28 Hgb 8.7 L 8.8 L 8.9 L (12.0-15.0) g/dL Hct 28.2 L 29.0 L 29.3 L (37.0-47.0) % 10/23/24 Range/Units 05:16 Hgb 8.9 L (12.0-15.0) g/dL Hct 29.0 L (37.0-47.0) % Coagulation 09/30/24 10/05/24 10/17/24 Range/Units 16:03 12:45 14:35 INR 1.1 1.1 1.2 10/18/24 10/19/24 Range/Units 04:16 05:50 INR 1.3 1.3 All other labs normal.
[2024-10-24] MEDS: SACCHAROMYCES BOULARDII 250 MG CAPSULE PO (08:53)
[2024-10-24] MEDS: SODIUM CHLORIDE 500 MG TABLET PO (08:53)
[2024-10-24] MEDS: VERAPAMIL HCL 120 MG TABLET IMMED RELEASE PO (08:54)
[2024-10-24] MEDS: PANTOPRAZOLE 40 MG TABLET PO (08:54)
[2024-10-24] MEDS: APIXABAN 5 MG TABLET PO (08:54)
[2024-10-24] MEDS: FUROSEMIDE 40 MG TABLET PO (08:54)
[2024-10-24] MEDS: EZETIMIBE 10 MG TABLET PO (08:54)
[2024-10-24] MEDS: DOCUSATE SODIUM 100 MG CAPSULE PO (08:54)
[2024-10-24] MEDS: CLOPIDOGREL BISULFATE 75 MG TABLET PO (08:54)
[2024-10-24] MEDS: FINASTERIDE 5 MG TABLET PO (08:54)
--- NOTE | 2024-10-24 09:05 | P.PNGS_ITS ---
Progress Note: A&P Assessment and Plan (1) Choledocholithiasis with acute cholecystitis: Code(s): K80.42 - Calculus of bile duct with acute cholecystitis without obstruction Status: Acute Assessment and Plan: * Patient healing as expected postop day 6 following laparoscopic cholecystectomy. NIA drain removed yesterday. He is tolerating a diet and no acute surgical issues. Surgically stable for discharge at this point. Patient would benefit from rehab and it was recommended that he go to acute rehab or SNF on discharge and patient is refusing. He is wanting to return home with home health. (2) Enterococcal bacteremia: Code(s): R78.81 - Bacteremia; B95.2 - Enterococcus as the cause of diseases classified elsewhere Status: Acute Assessment and Plan: * Completed treatment with IV antibiotics 2 weeks following last negative blood culture on 10/08. (3) DVT (deep venous thrombosis): Code(s): I82.409 - Acute embolism and thrombosis of unspecified deep veins of unspecified lower extremity Status: Acute Assessment and Plan: * Peroneal vein DVT. Currently on apixaban. (4) Chronic anticoagulation: Code(s): Z79.01 - chief recordist (current) use of anticoagulants Status: Acute (5) Stage 4 chronic kidney disease: Code(s): N18.4 - Chronic kidney disease, stage 4 (severe) Status: Chronic (6) Antiplatelet or antithrombotic long-term use: Code(s): Z79.02 - intermediate (current) use of antithrombotics/antiplatelets Status: Chronic Plan I have discussed the patient's case and plan of care with Dr. Brennan. Subjective Subjective Date/Time Seen: 10/24/24 09:05 Post Op day: 6 Interval history: Still has mild RUQ Pain, but improved after NIA drain removed yesterday. No nausea or vomiting. Tolerating his diet well. Patient refusing rehab or SNF, CC set up on discharge. Exam Const: General: comfortable and no acute distress Orientation/consciousness: patient oriented x3 GI: Inspection: non-distended, incision (dry and glue intact) and other (RUQ gauze dressing with scant serosanguineous drainage) GI Palp: Yes Soft to palpation, Yes Tenderness to palpation present (GI) (mild RUQ and near epigastric incision) and No Guarding due to palpation present (GI) Auscultation: normal bowel sounds Objective Data Vital Signs Vital Signs: Vital Signs - 24 hr 10/23/24 09:28 10/23/24 15:30 10/23/24 20:20 Temperature 98.5 F Pulse Rate 86 82 Respiratory Rate 16 Blood Pressure 133/57 L Pulse Oximetry 98 Oxygen Delivery Room Air 10/23/24 20:24 10/24/24 05:47 Temperature 97.7 F 97.8 F Pulse Rate 71 76 Respiratory Rate 18 18 Blood Pressure 136/57 L 138/65 Pulse Oximetry 97 96 Oxygen Delivery Intake/Output Intake/Output: Intake & Output 10/21/24 10/22/24 10/23/24 10/24/24 23:59 23:59 23:59 23:59 Intake Total 1820 1470.4 1170 100 Output Total 1525 1880 1600 950 Balance 295 -409.6 -430 -850 Meds/Results Medications: Active Medications Generic Name Dose Route Start Last Admin Trade Name Freq PRN Reason Stop Dose Admin Acetaminophen 500 mg 10/18/24 18:55 10/22/24 13:36 Acetaminophen 500 Mg Tablet PO 500 mg Q6H PRN Administration Pain Rated 1-3 Albuterol 2 puff 10/03/24 15:40 10/04/24 09:06 Albuterol Sulfate (*Sp) Aerosol 1 Puff INHALATION 2 puff Q6HRT PRN Administration Shortness Of Breath Or Wheezing Apixaban 5 mg 10/22/24 21:00 10/24/24 08:54 Apixaban 5 Mg Tablet PO 5 mg Q12HR VU Administration Clopidogrel Bisulfate 75 mg 10/01/24 09:00 10/24/24 08:54 Clopidogrel Bisulfate 75 Mg Tablet PO 75 mg DAILY VU Administration Dextrose 12.5 gm 09/30/24 20:29 Dextrose 50% 25 Gm/50 Ml Syringe IV PUSH PRN PRN Hypoglycemia Protocol Docusate Sodium 100 mg 10/01/24 09:00 10/24/24 08:54 Docusate Sodium 100 Mg Capsule PO 100 mg DAILY VU Administration Ezetimibe 10 mg 10/01/24 09:00 10/24/24 08:54 Ezetimibe 10 Mg Tablet PO 10 mg DAILY VU Administration Epoetin Gordo-epbx 10,000 units 10/16/24 09:00 10/23/24 09:34 Epoetin Gordo-Epbx 10,000 Units/Ml Vial SUB-Q 10,000 units TUTHSA@09 VU Administration Finasteride 5 mg 10/01/24 09:00 10/24/24 08:54 Finasteride 5 Mg Tablet PO 5 mg DAILY VU Administration Fluticasone Propionate 2 spray 09/30/24 20:28 10/14/24 08:33 Fluticasone Propionate 0.05% Na Spr 16 Gm Btl (*Bkc) NASAL 2 spray DAILY PRN Administration allergy symptoms Furosemide 40 mg 10/09/24 09:00 10/24/24 08:54 Furosemide 40 Mg Tablet PO 40 mg BID VU Administration Glucagon 1 mg 09/30/24 20:29 Glucagon For Inj 1 Mg Vial IM PRN PRN Hypoglycemia Protocol Glucose 15 gm 09/30/24 20:29 Glucose Oral Gel 15 Gm Of Glucse In 37.5 Gm Tube PO PRN PRN Hypoglycemia Protocol Dextrose 1,000 mls @ 100 mls/hr 09/30/24 20:29 Dextrose 5% 1,000 Ml IVPB PRN PRN Hypoglycemia Protocol Insulin Aspart 1 - 3 units 09/30/24 21:00 10/23/24 20:20 Insulin Aspart (*Bkc) 100 Units/Ml SUB-Q Not Given HS [facility] Protocol Insulin Aspart 3 - 6 units 10/01/24 08:00 10/24/24 08:55 Insulin Aspart (*Bkc) 100 Units/Ml SUB-Q Not Given TIDWM [facility] Protocol Morphine Sulfate 15 mg 10/07/24 09:53 10/24/24 08:54 Morphine Sulfate (*Crx) 15 Mg Tab Ir PO 15 mg Q4H PRN Administration Pain Rated 7-10 Morphine Sulfate 3 mg 10/18/24 18:55 10/19/24 05:55 Morphine Sulfate (*Crx) 2 Mg/Ml Inj IV PUSH 3 mg Q2H PRN Administration Breakthrough Pain Rated 4-6 or NPO Morphine Sulfate 5 mg 10/18/24 18:55 10/23/24 05:57 Morphine Sulfate (*Crx) 4 Mg/Ml Inj IV PUSH 5 mg Q2H PRN Administration Breakthrough Pain Rated 7-10 or NPO Naloxone HCl 0.1 mg 10/18/24 18:55 Naloxone Hcl 0.4 Mg/Ml Vial IV PUSH Q2M PRN Opiate Reversal Ondansetron HCl 4 mg 09/30/24 19:02 10/12/24 11:54 Ondansetron Inj 4 Mg/2 Ml Vial IV PUSH 4 mg Q4H PRN Administration Nausea Pantoprazole Sodium 40 mg 10/07/24 09:00 10/24/24 08:54 Pantoprazole 40 Mg Tablet PO 40 mg QAM VU Administration Polyethylene Glycol 17 gm 10/10/24 13:40 10/24/24 08:55 Polyethylene Glycol 3350 17 Gm Powd.Pack PO 17 gm QAM VU Administration Saccharomyces Boulardii 250 mg 10/11/24 17:00 10/24/24 08:53 Saccharomyces Boulardii 250 Mg Capsule PO 250 mg BID VU Administration Sodium Chloride 500 mg 10/06/24 17:00 10/24/24 08:53 Sodium Chloride 500 Mg Tablet PO 500 mg BID VU Administration Verapamil HCl 120 mg 09/30/24 21:00 10/24/24 08:54 Verapamil Hcl 120 Mg Tablet Immed Release PO 120 mg Q12HR VU Administration Radiology Results: ITS Impressions Abdomen/Pelvis CT 09/30/24 19:00 IMPRESSION: Gallbladder hydrops without inflammatory change. Dilated common bile duct, measuring 14 mm. No obstructing stone or mass detected. Correlate with biliary labs. 3.4 cm fusiform infrarenal abdominal aortic aneurysm. Consider follow-up in 3 years. Upper Quadrant Ultrasound 10/01/24 08:43 IMPRESSION: 1. Cholelithiasis with a normal-appearing gallbladder but with mild intra and extrahepatic biliary ductal dilation which raises concern for a nonvisualized distal obstructing choledocholithiasis. Correlate with liver function tests and if clinically indicated could consider further evaluation with either MRCP or ERCP. Cholecystostomy 10/05/24 16:57 IMPRESSION: 1. Successful ultrasound-guided cholecystostomy tube placement. 2. 35 mL bile was sent for aerobic, anaerobic, and fungal cultures. 3. The catheter will be managed by Dr. Brennan. Cholangiogram 10/12/24 14:45 IMPRESSION: 1. Cholelithiasis and choledocholithiasis obstructing distal choledocholithiasis with no observed contrast emptying into the duodenum. The cystic duct is patent. Consider ERCP for stone extraction and sphincterotomy to relieve the distal ductal obstruction. Chest X-Ray 10/17/24 11:39 IMPRESSION: No significant change from previous examination. Venous Doppler Study 10/17/24 13:00 IMPRESSION: 1. Right [id number] deep venous thrombosis in one of the paired right peroneal veins. Findings were discussed with Abeba crum, the nurse caring for the patient, at 1:07 PM. 2. No deep venous thrombosis in the left lower limb. 3. Small right Reno's cyst. Hepatobiliary Scan Nuclear Medicine 10/19/24 11:59 IMPRESSION: 1. Normal post cholecystectomy hepatobiliary scan with no bile leak. Ankle X-Ray 10/22/24 10:03 IMPRESSION: 1. Age-indeterminate, potentially subacute nondisplaced extra-articular fracture at the base of the left fourth proximal phalanx. Foot X-Ray 10/22/24 10:03 IMPRESSION: 1. Age-indeterminate, potentially subacute nondisplaced extra-articular fracture at the base of the left fourth proximal phalanx. Labs Labs: Laboratory Results - last 24 hr 10/23/24 10/23/24 10/23/24 11:45 17:19 19:46 APTT POC Capillary Glucose 152 H 155 H 169 H 10/23/24 10/24/24 20:13 08:03 APTT 47.1 H POC Capillary Glucose 133 H
[2024-10-24 09:27] LABS: Hematocrit 32.8 % (42.0-52.0); Hemoglobin 10.1 g/dL (14.0-18.0); Immature Granulocyte Percent A 4.5 % (0-0.5); Lymphocytes Absolute Auto 0.94 K/mm3 (0.9-3.2); Mean Corpuscular HGB Conc 30.8 g/dl (32-36); Mean Corpuscular Hemoglobin 29.2 pg (26-34); Mean Corpuscular Volume 94.8 fl (80-100); Nucleated Red Blood Cells Absolute Auto 0.020 K/mm3 (0.0-0.012); Nucleated Red Blood Cells Perc 0.2 % (0.0-0.2); Platelet Count Result 484 k/mm3 (150-375); Red Blood Count 3.46 M/mm3 (4.6-6.20); White Blood Count 12.1 K/mm3 (4.5-10.0)
[2024-10-24 09:44] LABS: Anion Gap 9 mmol/L (4-12); Blood Urea Nitrogen 32 mg/dL (9-20); Calcium 8.7 mg/dL (8.4-10.2); Carbon Dioxide 33 mmol/L (22-30); Chloride 94 mmol/L (98-107); Estimated CRCL calculation 26 ml/min; Estimated Glomerular Filt Rate 30; Glucose 193 mg/dL (65-110); Potassium 4.1 mmol/L (3.4-5.0); Sodium 136 mmol/L (137-145)
--- NOTE | 2024-10-24 11:07 | PCNFU ---
Nutrition Follow-Up Complete: Inadequate oral intake related to acute loss of appetite as evidenced by recent intakes 0-50% Improve PO intake to 50% meals and supplements - Goal is being met. Continue with goal Goal: Pt current nutrition is Low fiber diet Nutrition recommendation: Advance diet per MD Last recorded weight is 100.3 kg. Bowel Motility: +1 BM 10/23 Labs Reviewed: Hgb 10.1, Hct 32.8, Na 136, BUN 32, Cre 2.13, Glu 193 Meds Noted: Novolog, protonix, volace, miralax Skin: No skin issues. NIA drain is out Additional Notes: Drain is out and pt is tolerating diet well with 100% intakes. Diet advancement per surgery. Continue monitoring Monitoring intakes, weights, labs, supplement intake, plan of care Follow up in 5 days
[2024-10-24 13:53] VITALS: BP 146/64; PULSE 81; RESP 12; TEMP 36.7; O2SAT 97
--- NOTE | 2024-10-24 15:24 | P.DS_ITS ---
DS: Admitting Diagnosis Discharge Date 10/24/24 Admitting Diagnosis Nausea, abdominal pain and Chest pain DS: Discharge Diagnosis Discharge Diagnosis (1) S/P cholecystectomy: Code(s): Z90.49 - Acquired absence of other specified parts of digestive tract Status: Acute Assessment and Plan: s/p OR 10/[address] Brennan for infected gallbladder, gallbladder hydrops. Intraop bleeding s/p 1 unit of PRBC. Bood count now stable. HIDA scan no evidence of bleeding post op. NIA drain with minimal serosanguinous drainage PLAN -- Antibiotics for bacteremia as noted: Ampicillin, Ceftriaxone, and Metronidazole --Resumed diet and tolerating. Had a BM 10/21 --Type and screen active 10/20 --Resume Plavix in AM, ok per surgery recs --Transfuse for hgb <7, s/p 1 unite 10/18 --Heparin drip off post op. OK to restart heparin drip today per surgery recs (2) Bacteremia: Code(s): R78.81 - Bacteremia Status: Acute Assessment and Plan: LABS 10/04 Blood culutre 1/2 enterococcus faecalis 10/05 Blood cultures 2/2 enterococcus faecalis 10/05 Fungal cx--NGTD 10/05 Gallbladder culture enteroccus species 10/08 Blood cultures 05/27 No growth Antbiotics Treated with empiric Vanc and Ceftriaxone, changed to Ampicillin and Gentamycin 10/07 --Continue Ampicillin, Ceftriaxone, and Metronidazole (3) Acute DVT (deep venous thrombosis): Code(s): I82.409 - Acute embolism and thrombosis of unspecified deep veins of unspecified lower extremity Status: Acute Assessment and Plan: Acute peroneal DVT on dopplers 10/17. Started heparin drip and held for surgery --Restart heparin drip without a bolus --When therapeutic, can switch to oral anticoagulation (4) Acute kidney injury superimposed on CKD: Code(s): N17.9 - Acute kidney failure, unspecified; N18.9 - Chronic kidney disease, unspecified Status: Acute Assessment and Plan: Patient has chronic kidney disease stage 4 with acute kidney injury. Most likely prerenal due to intervascular volume depletion. Initially held Lasix and rehydrated, fluids at 75ml/hr. Nephrology was consulted from the ER. 10/02- cr/bun 2.96/100, peaked 10/05: Cr/BUN: 3.54/94. Has been fluctuating, but stable at 40/2.64 on furosemide side 10/09. 09/30 UA trace protein. 10/01 protein/creat ratio 0.36 - Continue flomax --continue furosemide 20mg daily --Nephrology following, appreciate recommendations (5) Type 2 diabetes mellitus with hyperglycemia, without long-term current use of insulin: Code(s): E11.65 - Type 2 diabetes mellitus with hyperglycemia Status: Chronic Assessment and Plan: Holding Actos -Moderate dose sliding scale insulin with Accu-Cheks a.c. HS and hypoglycemia protocol. -Glucose has been stable during stay (6) Elevated brain natriuretic peptide (BNP) level: Code(s): R79.89 - Other specified abnormal findings of blood chemistry Status: Acute Assessment and Plan: LABS: 10/11: BNP 9,700. Lasix 40 mg ivp x 1 given. Trending down with furosemide 40mg BID and creatinine improving. 10/13 Echocardiogram showed: Summary 1. Definity contrast administered improved wall motion interpretation. 2. Left ventricular chamber dimension is normal. 3. Left ventricular systolic function is normal, estimated at 60-65. 4. There is moderate concentric increased left ventricular wall thickness. 5. The left ventricular diastolic function is grade I diastolic dysfunction. 6. E/e' 15 is elevated. 7. Left atrial chamber dimension is mildly enlarged. 8. 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 Consider ADOLFO if clinically indicated. 9. There is moderate to severe mitral valve regurgitation. 10. Circumferential echogenic mass measuring 1.4 cm x 0.8 cm attached to left atrial side of mitral valve annulus which probably calcified mass. There is an additional small calcified echogenic mass attached to left ventricular side of posterior mitral valve leaflet. Probably calcifications more likely than vegetations. Consider ADOLFO if clinically indicated. 11. There is mild tricuspid valve regurgitation. 12. Mild pulmonary hypertension, estimated pulmonary arterial systolic pressure is 40 mmHg. 13. There is trace pulmonic regurgitation. PLAN * Cardiology consulted, planning ADOLFO with outpatient photoengraving supervisor * Held lasix for OR, resumed (7) Abdominal aortic aneurysm (AAA) 3.0 cm to 5.5 cm in diameter in male: Code(s): I71.40 - Abdominal aortic aneurysm, without rupture, unspecified Status: Acute Assessment and Plan: Likely chronic will defer follow-up to patient's primary care provider for serial imaging (8) Chest pain: Qualifiers: Chest pain type: unspecified Qualified Code(s): R07.9 - Chest pain, unspecified Code(s): R07.9 - Chest pain, unspecified Status: Acute Assessment and Plan: RESOLVED Prior chest pain resolved. No shortness of breath. Thought to be more consistent with GI cause with reported indigestion and significant right upper quadrant pain. Cardiology has been following -Troponins 0.053, 0.080, 0.090 -Holding Antihypertensives and Plavix. --> Plavix on hold since 10/05 for lap torrie per surg. Initially deferred 05/27 bacteremia. Can resume per surgery. Restart 10/22 if no bleeding on heparin drip --Started heparin drip for acute DVT. On hold for surgery and can resuming today (9) Hyponatremia: Code(s): E87.1 - Hypo-osmolality and hyponatremia Status: Acute Assessment and Plan: Levels have been slightly ow since admission despite IVF NS. -Sodium chloride tablets 500mg started 10/06 and sodium improved from 131<136. Has been 131-136 in the last week -Trending with daily labs. Decrease sodium tabs as able (10) Antiplatelet or antithrombotic long-term use: Code(s): Z79.02 - [facility] (current) use of antithrombotics/antiplatelets Status: Chronic Assessment and Plan: Pt with hx of pacemaker and plavix long-term use. Plavix on hold, last dose 10/12. --Start heparin drip. Resume plavix in AM if blood count stable overnight (11) Acute pain: Code(s): R52 - Pain, unspecified Status: Acute Assessment and Plan: Acute on chronic pain. High risk medication use with IV opiates for pain --Continue home morphine 15 mg PO --Tylenol TID prn --Morphine IR, Morphine 3-5mg IV prn --Bowel regimen: miralax Plan patient with choledocholithiasis with acute cholecystitis had ERCP which showed with many stone in the bile duct and removed, had cholecystectomy which showed gallbladder full of stone, patient was treated for cholecystitis ceftriaxone and metronidazole, patient developed enterococcal bacteremia and being treated with Ampicillin, and on 10/22 was his last day of the antibiotics. patient is seen by surgery service will remove NIA drain today. patient was found to have peroneal vein DVT and has been treated with heparin, today will start patient on Eliquis, today patient c/o pain in left foot, which is going of 2 days, patient has been in the hospital 31 days, denies any trauma, x-ray of the foot showed age- indeterminate, potentially subacute nondisplaced extra-articular fracture at the base of the left fourth proximal phalanx. will consult an orthopedic for recommendation and will plan. patient remains clinically stable, will be seen by surgery service and further recommendation to follow. DS: Summary Hospital Course Hospital Course: patient with choledocholithiasis with acute cholecystitis had ERCP which showed with many stone in the bile duct and removed, had cholecystectomy which showed gallbladder full of stone, patient was treated for cholecystitis ceftriaxone and metronidazole, patient developed enterococcal bacteremia and being treated with Ampicillin, and on 10/22 was his last day of the antibiotics. patient is seen by surgery service will remove NIA drain today. patient was found to have peroneal vein DVT and has been treated with heparin, today will start patient on Eliquis, today patient c/o pain in left foot, which is going of 2 days, patient has been in the hospital 31 days, denies any trauma, x-ray of the foot showed age- indeterminate, potentially subacute nondisplaced extra-articular fracture at the base of the left fourth proximal phalanx. will consult an orthopedic for recommendation and will plan. patient remains clinically stable, will be seen by surgery service and further recommendation to follow. patient was seen by orthopedic surgeon patient does not require any surgical intervention, may bear wt as tolerated, patient is seen by surgery service POD # 6 and wound is healing well following laparoscopic cholecystectomy, NIA drian was removed, patient pain is better and clinically stable, will discharge home today. Time Spent with Patient Time attestation: Total time spent providing and/or coordinating discharge services: Exam Narrative: Patient is comfortable, NAD HEENT: eyes are clear and none icteric LUNGS:CTA HEART: RR S1S2 ABD: BS+, Soft and nontender Lower extremities: no edema SKIN: nonjaundiced Neuro: grossly intact. DS: Data Data Completed and Pending Completed studies during hospitalization: Pending at discharge 10/18/24 15:09 Surgical [PTH] Routine Labs on day of discharge: Labs from last 24 hours 10/24/24 10/24/24 10/24/24 11:11 09:21 08:03 WBC 12.1 H RBC 3.46 L Hgb 10.1 L Hct 32.8 L MCV 94.8 MCH 29.2 MCHC 30.8 L RDW 15.1 H Plt Count 484 H MPV 8.7 Immature Gran % (Auto) 4.5 H Neut % (Auto) 72.0 Lymph % (Auto) 7.8 L Fountain % (Auto) 11.9 H Eos % (Auto) 3.1 Baso % (Auto) 0.7 Lymph # (Auto) 0.94 Fountain # (Auto) 1.4 H Eos # (Auto) 0.4 H Baso # (Auto) 0.1 Abs Immat Gran (auto) 0.55 H Absolute Neuts (auto) 8.7 H Absolute Nucleated RBC 0.020 H Nucleated RBC % 0.2 APTT Sodium 136 L Potassium 4.1 Chloride 94 L Carbon Dioxide 33 H Anion Gap 9 BUN 32 H Creatinine 2.13 H Estim Creat Clear Calc 26 Estimated GFR 30 L Glucose 193 H POC Capillary Glucose 199 H 133 H Calcium 8.7 10/23/24 10/23/24 10/23/24 20:13 19:46 17:19 WBC RBC Hgb Hct MCV MCH MCHC RDW Plt Count MPV Immature Gran % (Auto) Neut % (Auto) Lymph % (Auto) Fountain % (Auto) Eos % (Auto) Baso % (Auto) Lymph # (Auto) Fountain # (Auto) Eos # (Auto) Baso # (Auto) Abs Immat Gran (auto) Absolute Neuts (auto) Absolute Nucleated RBC Nucleated RBC % APTT 47.1 H Sodium Potassium Chloride Carbon Dioxide Anion Gap BUN Creatinine Estim Creat Clear Calc Estimated GFR Glucose POC Capillary Glucose 169 H 155 H Calcium Preliminary micro results at discharge 10/05/24 16:15 Fungal Culture - Preliminary Bile Discharge Plan Discharge Attending physician on discharge: Shanel Pendleton Consulting providers: Popeye Vaughan; Rosendo Brennan; Rachid Farnsworth; Jm Ng; Kal Palma; Dang Lopez; Anne North; Arleen Talamantes; Bing Pendleton; Janette Washington; Abeba Cornejo; Loretta Morris; Andrea Wilkerson; Yasir Zuluaga; Shanel Pendleton; Jose Francisco Baker; Wesly Escalante; Washington Huerta; Quincy Waggoner; Adair Ospina; Hector Doss; Cornelio Park; Araceli Daniel Discharging Clinician: Jim Miguel Patient Disposition: Home with Home Health Service Activity: may shower Discharge Instructions: Per Care Coordination: [facility] ([phone]) will call to set up initial visit. RN please fax discharge paperwork to [phone] * Incisions open to air. NIA drain site is covered with gauze. Change gauze dressing once daily for 3-4 more days and then may leave open to air if no drainage. * No lifting more than 15 lbs for another week. Then you may increase activity slowly as tolerated. * If you develop abdominal pain, drainage or redness around your incisions, or fever, call your surgeon's office or return to the ED. [phone] * * patient to follow discharge care instruction from his surgeon and follow up as scheduled, patient to follow up with his primary care provider as soon as possible. patient is instructed if any symptoms redevelop to go to nearest ER. * * Patient to follow up with his primary care and photoengraving supervisor to check on how long he needs to take Plavix as he is also taking Eliquis now. I have explained to the patient and his . patient Sheet Tester is Dr. Duarte Patient Instructions: Heart Failure (DC), Pain Management (GEN), Safe Use of Anticoagulants (DC) Patient Language: Latvian Stand Alone Forms: General Discharge Information Follow-up/Referrals: Juan Duong MD [Primary Care Provider] - Rosendo Brennan MD [Physician] - Discharge Medications: New pantoprazole 40 mg Tablet,Delayed Release (Dr/Ec) 40 mg PO QAM Qty: 40 0RF Eliquis 5 mg Tablet 5 mg PO Q12HR Qty: 60 0RF polyethylene glycol 3350 [Miralax] 17 gram Powder In Packet 17 g PO QAM Qty: 14 0RF Saccharomyces boulardii [Florastor] 250 mg Capsule 250 mg PO BID Qty: 60 0RF Continued doxazosin [Cardura] 4 mg tablet 4 mg PO QHS Qty: 30 5RF Rx Instructions: first dose going to bed pioglitazone [Actos] 15 mg tablet 15 mg PO DAILY famotidine [Acid Controller] 20 mg tablet 20 mg PO BID finasteride 5 mg tablet 5 mg PO DAILY verapamil 120 mg tablet 120 mg PO DAILY Patient Comments: States takes 2 per day ezetimibe [Zetia] 10 mg tablet 10 mg PO DAILY clopidogrel [Plavix] 75 mg tablet 75 mg PO DAILY morphine 15 mg tablet 15 mg PO Q8H PRN (Reason: pain) metolazone 5 mg tablet 5 mg PO DAILY Patient Comments: States as needed fluticasone propionate [Flonase Allergy Relief] 50 mcg/actuation spray,suspension 2 spray intranasal DAILY PRN (Reason: allergy symptoms) Rx Instructions: administer into each nostril docusate sodium [Colace] 100 mg capsule 100 mg PO DAILY furosemide 40 mg tablet See Rx Instructions .ROUTE .COMPLEX Qty: 180 1RF Dose Instruction: 40 MG ORALLY TWICE A DAY NEEDED FOR EDEMA Rx Instructions: 40 MG ORALLY TWICE A DAY NEEDED FOR EDEMA Date of admission: 10/01/24 12:08 Primary Care Provider: Juan Duong Admitting Provider: Joseph Nguyen Attending physician on admission: Jim Miguel Condition: Stable
== END 2024-10-24 16:32 | disposition home health service (06) | DRG 418 ==
LOC: ANHED 18:50 → ANHIMU 20:36 → ANH2MED 10-01 13:41
PROVIDERS: Internal Medicine; Internal Medicine Gastroenterology; Internal Medicine Nephrology; Nurse Practitioner; Nurse Practitioner Acute Care; Nurse Practitioner Family; Physician Assistant; Surgery; Admitting Provider General Practice; Emergency Provider Emergency Medicine; PCP Family Medicine; Visit Provider Family Medicine
PROC: 0FC98ZZ Extirpation of Matter from Common Bile Duct, Via Natural or Artificial Opening Endoscopic (ICD-10-PCS; CPT 43260; principal; 2024-10-16 13:45)
PROC: 0FT44ZZ Resection of Gallbladder, Percutaneous Endoscopic Approach (ICD-10-PCS; CPT 47562; principal; 2024-10-18 14:30)
DX: K80.64 Calculus of gallbladder and bile duct with chronic cholecystitis without obstruction (principal); E87.1 Hypo-osmolality and hyponatremia; K82.1 Hydrops of gallbladder; N17.9 Acute kidney failure, unspecified; I13.0 Hypertensive heart and chronic kidney disease with heart failure and stage 1 through stage 4 chronic kidney disease, or unspecified chronic kidney disease; R78.81 Bacteremia; I82.451 Acute embolism and thrombosis of right peroneal vein; N18.4 Chronic kidney disease, stage 4 (severe); E11.22 Type 2 diabetes mellitus with diabetic chronic kidney disease; E11.65 Type 2 diabetes mellitus with hyperglycemia; R07.89 Other chest pain; I50.9 Heart failure, unspecified; E78.2 Mixed hyperlipidemia; I71.40 Abdominal aortic aneurysm, without rupture, unspecified; K21.9 Gastro-esophageal reflux disease without esophagitis; N40.0 Benign prostatic hyperplasia without lower urinary tract symptoms; D63.1 Anemia in chronic kidney disease; B95.2 Enterococcus as the cause of diseases classified elsewhere; B96.89 Other specified bacterial agents as the cause of diseases classified elsewhere; G89.29 Other chronic pain; I35.0 Nonrheumatic aortic (valve) stenosis; Z90.49 Acquired absence of other specified parts of digestive tract; Z95.2 Presence of prosthetic heart valve; Z95.0 Presence of cardiac pacemaker; E66.9 Obesity, unspecified; Z68.33 Body mass index [BMI] 33.0-33.9, adult; Z79.02 Long term (current) use of antithrombotics/antiplatelets; D15.1 Benign neoplasm of heart; S92.912A Unspecified fracture of left toe(s), initial encounter for closed fracture; X58.XXXA Exposure to other specified factors, initial encounter
CPT/HCPCS: 36415; 36430; 47490; 47531; 71045; 71046; 73610; 73630; 74176; 74329; 76705; 78226; 80048; 80053; 80069; 80170; 80202; 81001; 81050; 82550; 82565; 82570; 82948; 83605; 83690; 83735; 83880; 84100; 84156; 84300; 84484; 84540; 85025; 85027; 85380; 85610; 85730; 85999; 86850; 86900; 86901; 86920; 86923; 87040; 87070; 87075; 87102; 87181; 87205; 87206; 88304; 92610; 93005; 93970; 94640; 96361; 96372; 96374; 96375; 96376; 97110; 97116; 97162; 97165; 97166; 97530; 97535; 99285; A9270; A9537; C1729; C8929; G0378; J0290; J0330; J0690; J0696; J1580; J1644; J1815; J1836; J1938; J2003; J2270; J2371; J2405; J2470; J2704; J3010; J3370; J3475; J7030; J7120; P9016; Q5105; Q9957; Q9966

== ENCOUNTER 2024-11-06 07:18 | Emergency (ER) | payer MEDICARE, BC, SELFPAY ==
--- NOTE | ~2024-11-06 | CT_ITS ---
CT abdomen pelvis wo con Ordering provider: Oma Dow MD History: 88 years Male with . LLQ pain, bilateral hip pain x2d; rct torrie . Comparison: September 30, 2024 Technique: CT abdomen and pelvis without IV and without oral contrast. Automated exposure control and iterative reconstruction technique were employed. The dose-length product was 658.68 mGy-cm. Findings: VISUALIZED LOWER CHEST: Trace of right pleural effusion. Cardiomegaly. UPPER ABDOMINAL ORGANS: Liver: Pneumobilia. Air is also seen in the CBD. Gallbladder: Not demonstrated. Fat stranding in the area of the gallbladder is seen with small fluid collection measuring 2.5 x 1 cm which may be postoperative changes. Clinical correlation advised. Spleen: Normal. Stomach/duodenum: Normal. Pancreas: Atrophic. Soft tissue density is seen in the area of the head which measures 3 x 4.1 cm enl arged lymph node seen in the previous study which may be a hematoma.. Further evaluation and follow-u p advised. Adrenals: Normal. Kidneys: Tiny calcifications in the left kidney lower pole which may be stones. PELVIC ORGANS: The bladder is normal. BOWEL AND MESENTERY: Colon: No evidence of diverticulitis. Fecal material is loaded in the colon. Postoperative changes se en in the right side of the colon.. Normal appendix. Small Bowel: Normal. No obstruction. Peritoneum/mesentery: No free air or free fluid. No mesenteric lymphadenopathy. RETROPERITONEUM: Moderate atheromatous disease of the abdominal aorta. Slight dilatation of the dist al aorta measuring 3.4 x 2.8 cm. Slight dilatation of the iliac arteries is also noted. No retroperi toneal lymphadenopathy. MUSCULOSKELETAL: Superficial soft tissues: Bilateral fat containing inguinal hernias. The superficial soft tissues are normal. Bones: Age appropriate degenerative changes of the spine. Bilateral hip osteoarthritic changes. Posto perative changes in the right hip area. IMPRESSION: 1. Postoperative changes in the area of the gallbladder with possible small collection. 2. Highly suggestive of hematoma in the area of the head of the pancreas. Further evaluation and fol low-up advised. 3. Pneumobilia. 4. Aneurysmal dilatation of the distal aorta. 5. Constipation 6. Bilateral fat containing inguinal hernias. 7. Tiny calcifications in the left kidney lower pole which may be stones. Reviewed, dictated and finalized at location A. IMPRESSION: 1. Postoperative changes in the area of the gallbladder with possible small co llection. 2. Highly suggestive of hematoma in the area of the head of the pancreas. Furt her evaluation and follow-up advised. 3. Pneumobilia. 4. Aneurysmal dilatation of the distal aorta. 5. Constipation 6. Bilateral fat containing inguinal hernias. 7. Tiny calcifications in the left kidney lower pole which may be stones.
--- NOTE | ~2024-11-06 | XR_ITS ---
EXAMINATION: XR hip LT 2V w AP pelvis DATE: 11/06/2024 08:12 INDICATION: Left hip pain TECHNIQUE: Anteroposterior view of the pelvis and anteroposterior, frog leg and cross-table lateral v iews of the left hip were obtained. COMPARISON: None. FINDINGS: Old fracture of the right femoral neck which is fixed with 3 lag screws and which has healed in near anatomic alignment with mild varus angulation. No fracture or suspected osteonecrosis. Mild osteoarth ritis at the bilateral hip and sacroiliac joints. Severe lower lumbar spondylosis with transitional l umbosacral segment. IMPRESSION: 1. Old healed right femoral neck fracture with screw fixation. No acute osseous abnormality. 2. 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 Reviewed, dictated and finalized at location A.
[2024-11-06 07:24] VITALS: BP 163/63; PULSE 85; RESP 16; TEMP 36.7; O2SAT 96
--- OUTSIDE RECORDS SUMMARY | 2024-11-06 08:05 | XMS_ITS | Clinical Summary ---
Author Organization [facility] Address [address] [place] [id number] Care Team Providers Care Operational Assistant Name Role Phone Unavailable Primary Care Provider [...] Diabetes: Visual Foot Exam 05/30/2023 Influenza Vaccine (#1) 2024 04/22/2020 Hepatitis B Vaccine Aged Out No longe r eligible based on patient's age to complete this topic Insurance [place]
--- OUTSIDE RECORDS SUMMARY | 2024-11-06 08:05 | XMS_ITS | Referral Summary ---
Author Organization [facility] Address [address] [place] [id number] Care Team Providers Care Media Developer Name Role Phone Eric Duong MD Primary Care Provider [phone] Hayder Penn MD Unavailable [phone] Allergies Active Allergy Reactions Criticality Noted Date Comments Atorvastatin Rosuvastatin Wxdpnvv-Qbi-Izl Reductase Inhibitors Muscle pain Medium 11/21/2018 Other: [...] drink = 0.6 oz pur e alcohol) [facility] Utilities Answer Date Recorded In the past 12 months has e Project [employer], gas, oil, or water company threatened to [...] often do you attend chur ch or uatsdin services? More than 4 times per year 05/23/2023 Do you belong to any clubs o r organizations such as jainism groups, unions, fraternal or athletic groups, or [...] place to sleep or slept in a penitentiary (including now)? No 05/23/2023 Personal Safety Answer Date Recorded Have you ever been in or are you currently in a harmful physical or emotional relationship or is someone making you feel afraid or unsafe? Denies 05/24/2023 Sex and Gender Information Value Date Recorded Sex Assigned at Not on file Legal Sex Male 3:02 AM ATTORNEY Gender Identity Not on file Sexual Orientation Not on file Last Filed Vital Signs Vital Sign Reading Time Taken Comments Blood Pressure 172/75 05/25/2023 12:04 PM ATTORNEY Pulse 100 05/25/2023 12:04 PM ATTORNEY Temperature 36.9 C (98.4 F) 05/25/2023 7:38 AM ATTORNEY Respiratory Rate 18 05/25/2023 12:04 PM ATTORNEY Oxygen Saturation 98% 05/25/2023 12:04 PM ATTORNEY Inhaled Oxygen Concentration - - Weight 89.9 kg (198 lb 4.8 oz) 05/25/2023 6:00 A M ATTORNEY Height 172.7 cm (5' 8) 05/24/2023 5:20 PM ATTORNEY Body Mass Index 30.15 05/24/2023 5:20 PM ATTORNEY Plan of Treatment Not on file Medical Devices Implanted Type 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 And 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 Apprentice Device Identifier Shelf Expiration Date Model / Serial / Lot [employer] Device Clsr Perclose Prostyle Sut-Mediatd Closure-Repair Sys 39891-44 - [id number] Implanted:Qty: 1 on 05/23/2023 by Hu Chapman MD at [facility] [employer] 02/22/2025 [id number] / / [id number] [employer] Device Clsr Perclose Prostyle Sut-Mediatd Closure-Repair Sys 66312-98 - [id number] Implanted:Qty: 1 on 05/23/2023 by Hu Chapman MD at [facility] [employer] 02/22/2025 [id number] / / [id number] [employer] Devendra 3 Commander [place] 26mm Transcatheter Ultra Low Profile [id number] - [id number] - [id number] Implanted:Qty: 1 on 05/23/2023 by Hu Chapman MD at [facility] [employer] 01/25/2026 [id number] / [id number] / [employer] Promri Solia S 60cm Lead Pacing Steroid Eluting [id number] - [id number] - [id number] Implanted:Qty: 1 on 05/24/2023 by Hayder Penn MD at [facility] Left: Chest [employer] 02/22/2025 [id number] / [id number] / [employer] Solia S 53cm Steroid Elute Bipolar Active Fixation Endocardial [id number] - [id number] - [id number] Implanted:Qty: 1 on 05/24/2023 by Hayder Penn MD at [facility] Left: Chest [employer] [id number] 04/24/2025 [id number] / [id number] / [employer] Edora Promri 86r08l9.5mm Dual Chamber Rate Adaptive Unipolar Bipolar 087343 - [id number] - [id number] Implanted:Qty: 1 on 05/24/2023 by Hayder Penn MD at [facility] Left: Chest [employer] 09/22/2024 [id number] / [id number] / Procedures Procedure Name Priority Date/Time Associated Diagnosis Comments EGFR Routine 05/25/2023 5:27 AM ATTORNEY from Last 3 Months or Most Recently Relevant to Health Maintenance Results * eGFR (05/25/2023 5:27 AM ATTORNEY) eGFR 21 mL/min/1. 73 m2 ARYAN HERNÁNDEZ [...] last reviewed 2021. Blood 05/25/2023 5:27 AM ATTORNEY 05/25/2023 5:51 AM ATTORNEY Cristina DISLA LAB BLOOD ORDERABLES F inal Result ARYAN [address] Department [place] [address] from Last 3 Months or Most Recently Relevant to Health Maintenance Insurance MEDICARE BLUE TRADITIONAL OOS MEDICARE BLUE TRADITIONAL OOS Advance Directives For more information, please contact: [phone] * Full Code (Latest Code Status on File) Date Activated Date Inactivated Comments 05/23/2023 11:47 AM 05/25/2023 5:36 PM Care Teams Media Developer Relationship Specialty [place] [id number] [place] [address] PCP - General Orthopedic Surgery 03/08/23 [place] [id number] [place] [address] Consulting Physician Cardiology 05/25/23
--- OUTSIDE RECORDS SUMMARY | 2024-11-06 08:05 | XMS_ITS | Clinical Summary ---
Author Organization [facility] Address [address], [place] [address] Phone Care Team Providers Care Wet Primer Powder Blender Name Role Phone Mario Alberto Fleming DO Primary Care Provider [phone] Allergies Active Allergy Reactions Criticality Noted Date [...] on file Legal Sex Male 9:25 AM [facility] Gender Identity Not on file Sexual Orientation [...] 3 - PCV) 05/21/2008 05/21/2007 Influenza Vaccine (#1) 2024 04/22/2020 Insurance MEDICARE [facility]) Care Teams Wet Primer Powder Blender Relationship Specialty Start Date End Date Mario Alberto Fleming DO [address] [place] [id number] PCP - General Internal Medicine 10/11/18
--- OUTSIDE RECORDS SUMMARY | 2024-11-06 08:05 | XMS_ITS | Clinical Summary ---
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
--- OUTSIDE RECORDS SUMMARY | 2024-11-06 08:05 | XMS_ITS | Clinical Summary ---
Author Organization Address [address] [place] [id number] Care Team Providers Care Courtesy Clerk Name Role Phone Eric Duong MD Primary Care Provider [phone] Hayder Penn MD Unavailable [phone] Allergies Active Allergy Reactions Criticality Noted Date Comments Atorvastatin Rosuvastatin Wzxwqos-Qje-Rss Reductase Inhibitors Muscle pain Medium 11/21/2018 Other: [...] drink = 0.6 oz pur e alcohol) [facility] Utilities Answer Date Recorded In the past 12 months has [employer] gas, oil, or water [employer] threatened to shut off services in your [...] How often do you attend chur or taoist services? More than 4 times per year 05/23/2023 Do you belong to any clubs o r organizations such as taoism groups, unions, fraternal or athletic groups, or [...] place to sleep or slept in a alf (including now)? No 05/23/2023 Personal Safety Answer Date Recorded Have you ever been in or are you currently in a harmful physical or emotional relationship or is someone making you feel afraid or unsafe? 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 Gender Identity Not on file Sexual Orientation Not on file Obstetrics History Last Filed Vital Signs Vital Sign Reading Time Taken Comments Blood Pressure 172/75 05/25/2023 12:04 PM SALESFORCE DEVELOPER Pulse 100 05/25/2023 12:04 PM SALESFORCE DEVELOPER Temperature 36.9 C (98.4 F) 05/25/2023 7:38 AM SALESFORCE DEVELOPER Respiratory Rate 18 05/25/2023 12:04 PM SALESFORCE DEVELOPER Oxygen Saturation 98% 05/25/2023 12:04 PM SALESFORCE DEVELOPER Inhaled Oxygen Concentration - - Weight 89.9 kg (198 lb 4.8 oz) 05/25/2023 6:00 A M SALESFORCE DEVELOPER Height 172.7 cm (5' 8) 05/24/2023 5:20 PM SALESFORCE DEVELOPER Body Mass Index 30.15 05/24/2023 5:20 PM SALESFORCE DEVELOPER Plan of Treatment Health Maintenance Due Date [...] 12/24/2008, 04/26 Medical Devices Implanted 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 Equipment 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 Device Identifier Shelf Expiration Date Model / Serial / Lot [employer] Device Clsr Perclose Prostyle Sut-Mediatd Closure-Repair Sys 32564-68 - [id number] Implanted:Qty: 1 on 05/23/2023 by Hu Chapman MD at [employer] 02/22/2025 [id number] / / [id number] [employer] Device Clsr Perclose Prostyle Sut-Mediatd Closure-Repair Sys 42723-91 - [id number] Implanted:Qty: 1 on 05/23/2023 by Hu Chapman MD at [employer] 02/22/2025 [id number] / / [id number] [employer] Devendra 3 Commander Coolrado 26mm Transcatheter Ultra Low Profile [id number] - [id number] - [id number] Implanted:Qty: 1 on 05/23/2023 by Hu Chapman MD at [employer] 01/25/2026 [id number] / [id number] / [employer] Promri Solia S 60cm Lead Pacing Steroid Eluting [id number] - [id number] - [id number] Implanted:Qty: 1 on 05/24/2023 by Hayder Penn MD at Left: Chest [employer] 02/22/2025 [id number] / [id number] / [employer] Solia S 53cm Steroid Elute Bipolar Active Fixation Endocardial [id number] - [id number] - [id number] Implanted:Qty: 1 on 05/24/2023 by Hayder Penn MD at Left: Chest [employer] [id number] 04/24/2025 [id number] / [id number] / [employer] Edora Promri 81r41l5.5mm Dual Chamber Rate Adaptive Unipolar Bipolar [id number] - [id number] - [id number] Implanted:Qty: 1 on 05/24/2023 by Hayder Penn MD at Left: Chest [employer] 09/22/2024 [id number] / [id number] / Procedures Procedure Name Priority Date/Time Associated Diagnosis Comments EGFR Routine 05/25/2023 5:27 AM SALESFORCE DEVELOPER from Last 3 Months or Most Recently Relevant to Health Maintenance Results * eGFR (05/25/2023 5:27 AM SALESFORCE DEVELOPER) eGFR 21 mL/min/1. 73 m2 ARYAN HERNÁNDEZ [...] last reviewed 2021. Blood 05/25/2023 5:27 AM SALESFORCE DEVELOPER 05/25/2023 5:51 AM SALESFORCE DEVELOPER Cristina DISLA LAB BLOOD ORDERABLES F inal Result [facility] [address] Department [place] [address] from Last 3 Months or Most Recently Relevant to Health Maintenance [place] [address] [facility] MEDICARE [facility] Advance Directives For more information, please contact: [phone] * Full Code (Latest Code Status on File) Date Activated Date Inactivated Comments 05/23/2023 11:47 AM 05/25/2023 5:36 PM Care Teams Courtesy Clerk Relationship Specialty [place] [address] [place] [address] PCP - General Orthopedic Surgery 03/08/23 [place] [address] [facility] [address] [place] [id number] Consulting Physician Cardiology 05/25/23
[2024-11-06 08:30] VITALS: BP 167/62; PULSE 93; RESP 18; TEMP 35.5; O2SAT 98
[2024-11-06 08:33] LABS: Add Urine Microscopic? YES; Appearance Urine Clear (Clear); Glucose Urine UA Negative (Negative); Leukocyte Esterase Ur Negative LEU/UL (Negative); Nitrate Urine Negative (Negative); Non Pathogenic Casts 0-2; Specific Grav Ur 1.015 (1.001-1.035)
[2024-11-06 09:30] VITALS: BP 155/63; PULSE 90; RESP 18; TEMP 36.6; O2SAT 97
[2024-11-06 10:00] VITALS: BP 180/75; PULSE 91; RESP 18; TEMP 36.6; O2SAT 97
--- NOTE | 2024-11-06 13:17 | ED.EXTPRO ---
HPI - Extremity Problem General Chief complaint: Extremity Problem,Nontraumatic Stated complaint: R hip pain Time Seen by Provider: 11/06/24 07:46 History of Present Illness HPI Narrative: Patient has had right hip pain for the last 2 days, his called an ambulance for him. When he was here, I asked and where his pain was and he pointed at his left hip. He then stated that maybe it was his left lower abdomen. Related Data Home Medications ?Medication ?Instructions ?Recorded ?Confirmed ?Last Taken ?Type clopidogrel 75 mg tablet (Plavix) 75 mg PO DAILY 09/30/24 09/30/24 09/29/24 History docusate sodium 100 mg capsule 100 mg PO DAILY 09/30/24 09/30/24 09/29/24 History (Colace) fluticasone propionate 50 2 spray intranasal DAILY PRN 09/30/24 09/30/24 09/29/24 History mcg/actuation nasal allergy symptoms spray,suspension (Flonase Allergy Relief) metolazone 5 mg tablet 5 mg PO DAILY 09/30/24 09/30/24 09/29/24 History morphine 15 mg immediate release 15 mg PO Q8H PRN pain 09/30/24 09/30/24 09/29/24 History tablet verapamil 120 mg tablet 120 mg PO DAILY 09/30/24 09/30/24 09/29/24 History Allergies Allergy/AdvReac Type Severity Reaction Status Date / Time atorvastatin Allergy Unknown myalgia Verified 10/18/24 14:17 rosuvastatin Allergy Unknown myalgia Verified 10/18/24 14:17 Review of Systems Review of Systems: All systems reviewed & are unremarkable except as noted in HPI and below PMFSH Past Medical History Medical History AAA (abdominal aortic aneurysm) 3.6 cm Choledocholithiasis with acute cholecystitis Cholangitis Elevated LFTs Chronic pain 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 URI (upper respiratory infection) Preoperative clearance History of colon polyps Dupuytren's contracture of right hand Pre-operative clearance Trigger finger, right middle finger Iron deficiency anemia Low back pain radiating to left leg Type II diabetes mellitus with renal manifestations Essential hypertension, benign Mixed hyperlipidemia Bilateral inguinal hernia Small fat containing bilateral inguinal hernias noted on CT 09/30/2024 Hepatic steatosis Chronic pain GERD (gastroesophageal reflux disease) Dyslipidemia BPH (benign prostatic hyperplasia) Type 2 diabetes mellitus Hypertension Hyperlipidemia Chronic kidney disease Heart failure 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 moderate mitral valve regurgitation Surgical History Surgical History (Updated 10/21/24 @ 17:55 by Shanel Pendleton APRN) History of repair of right rotator cuff (~07/05/14) Subacromial Decompression; Limited Debridement Status post cataract extraction of both eyes with insertion of intraocular lens 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 He has 3 children. He is a retired [employer]. He he is a lifelong nonsmoker and does not drink alcohol or use illicit substances. He ambulates with a walker. Code status: Full code (he states he would not want long-term intubation or feeding tube) Surrogate decision maker: Nallely () Smoking status: Never smoker Second hand tobacco smoke exposure: No Alcohol intake: never Substance use: never Do You Feel Safe in your Home?: Yes Lack of Transportation: YES Lack of Food: Never True Current Housing: I Have Housing Concerned About Future Housing: No Difficulty Paying Gas/Electric Bills: No Difficulty Paying for Meds: No Currently Unemployed: No Education: High School Diploma/GED Difficulty w/ Childcare or Family Care: No Living arrangements: with family Gender identity (if verbalized by the patient): Male Spiritual care concerns: No Exam Narrative: EXAMINATION OF ORGAN SYSTEMS/BODY AREAS: Constitutional: Vital signs per nursing GENERAL:[No acute distress, non-toxic appearing.] HEAD: Normal with no signs of head trauma. EYES: EOMI, conjunctiva normal ENT: Hearing grossly intact LUNGS: Nonlabored breathing. HEART: [Regular rate and rhythm], bilateral DP pulses ABD: [Soft], [nontender to palpation] EXT: Normal range of motion bilateral hips with good strength SKIN: Small bruise lower abdomen, multiple surgical sites on abdomen that are very well-appearing and healing NEURO: [Alert. No gross focal sensory or strength deficits.] PSYCH: Normal affect Course Vital Signs Vital signs: Vital Signs Temperature 98.1 F 11/06/24 07:24 Pulse Rate 85 11/06/24 07:24 Respiratory Rate 16 11/06/24 07:24 Blood Pressure 163/63 H 11/06/24 07:24 Pulse Oximetry 96 11/06/24 07:24 Oxygen Delivery Room Air 11/06/24 07:24 Temperature 97.8 F 11/06/24 10:00 Pulse Rate 91 11/06/24 10:00 Respiratory Rate 18 11/06/24 10:00 Blood Pressure 180/75 H 11/06/24 10:00 Pulse Oximetry 97 11/06/24 10:00 Oxygen Delivery Room Air 11/06/24 07:24 MDM - Extremity (Nontraumatic) MDM Narrative Medical decision making narrative: Patient presents here for hip pain, EMS and told me right hip, patient initially pointed at his left before being corrected by his , overall he has good range of motion to both hips, I do not see any obvious swelling or redness and he has no tenderness. He even so he said that he was maybe having left lower abdominal pain, at this point I ordered a CT for further evaluation. This is notable for possible pancreas hematoma which I discussed with family will need follow-up, tiny aneurysm which they will follow up with his doctor, postop changes to the right hip otherwise unremarkable. He has benefited from steroid course in the past and I feel I this could be helpful for joint inflammation and I will have him follow-up with his surgeon, primary care doctor, and orthopedist. Patient and at bedside agreeable to plan. Lab Data Labs: Lab Results 11/06/24 Range/Units 08:24 Urine Color Yellow (Yellow) Urine Appearance Clear (Clear) Urine pH 7.0 (5.0-9.0) Ur Specific [place] 1.015 (1.001-1.035) Urine Protein Trace (Negative) mg/dL Urine Glucose (UA) Negative (Negative) mg/dL Urine Ketones Negative (Negative) mg/dL Ur Blood (Man) 1+ H (Negative) Urine Nitrate Negative (Negative) Urine Bilirubin Negative (Negative) Urine Urobilinogen 2.0 H (<2.0) mg/dL Leukocyte Esterase Rfl Negative (Negative) TAMI/UL Urine RBC 11-20 H (0-2) /hpf Urine WBC 0-5 (0-3) /hpf Ur Squamous Epith Cells None seen (Few) /hpf Urine Bacteria None seen /hpf Urine Casts 0-2 Discharge Plan Discharge Clinical Impression: Chronic hip pain Patient Disposition: Home Condition: Stable Instructions: Hip Pain (ED) Additional Instructions: You can follow-up with her general surgeon for the bruise on your pancreas, and follow-up with orthopedic surgeon for your hips. Try the steroids as prescribed. You can always return to the ER for any further issues Patient Language: Divehi Prescriptions: New methocarbamol 750 mg tablet 750 mg PO TID PRN (Reason: muscle spasm) Qty: 30 0RF prednisone 20 mg tablet 40 mg PO DAILY 4 Days Qty: 8 0RF No Action doxazosin [Cardura] 4 mg tablet 4 mg PO QHS Qty: 30 5RF Rx Instructions: first dose going to bed verapamil 120 mg tablet 120 mg PO DAILY Patient Comments: States takes 2 per day clopidogrel [Plavix] 75 mg tablet 75 mg PO DAILY morphine 15 mg tablet 15 mg PO Q8H PRN (Reason: pain) metolazone 5 mg tablet 5 mg PO DAILY Patient Comments: States as needed fluticasone propionate [Flonase Allergy Relief] 50 mcg/actuation spray,suspension 2 spray intranasal DAILY PRN (Reason: allergy symptoms) Rx Instructions: administer into each nostril docusate sodium [Colace] 100 mg capsule 100 mg PO DAILY pantoprazole 40 mg Tablet,Delayed Release (Dr/Ec) 40 mg PO QAM Qty: 40 0RF Eliquis 5 mg Tablet 5 mg PO Q12HR Qty: 60 0RF polyethylene glycol 3350 [Miralax] 17 gram Powder In Packet 17 g PO QAM Qty: 14 0RF Saccharomyces boulardii [Florastor] 250 mg Capsule 250 mg PO BID Qty: 60 0RF furosemide 40 mg tablet See Rx Instructions .ROUTE .COMPLEX Qty: 180 1RF Dose Instruction: 40 MG ORALLY TWICE A DAY NEEDED FOR EDEMA Rx Instructions: 40 MG ORALLY TWICE A DAY NEEDED FOR EDEMA ezetimibe [Zetia] 10 mg tablet 10 mg PO DAILY Qty: 90 1RF pioglitazone [Actos] 15 mg tablet 15 mg PO DAILY Qty: 90 1RF finasteride 5 mg tablet 5 mg PO DAILY Qty: 90 1RF famotidine [Acid Controller] 20 mg tablet 20 mg PO BID Qty: 180 1RF Follow-up/Referrals: Tesfaye Martínez MD [Physician] - 2 Days Stephania Clarke APRN [Primary Care Provider] -
== END 2024-11-06 10:12 | disposition home or self-care (01) ==
PROVIDERS: Emergency Provider Emergency Medicine; PCP Nurse Practitioner Family
DX: M25.552 Pain in left hip (principal); G89.29 Other chronic pain; E11.22 Type 2 diabetes mellitus with diabetic chronic kidney disease; I13.0 Hypertensive heart and chronic kidney disease with heart failure and stage 1 through stage 4 chronic kidney disease, or unspecified chronic kidney disease; N18.9 Chronic kidney disease, unspecified; I50.30 Unspecified diastolic (congestive) heart failure; D63.1 Anemia in chronic kidney disease; D50.9 Iron deficiency anemia, unspecified; E78.2 Mixed hyperlipidemia; N40.0 Benign prostatic hyperplasia without lower urinary tract symptoms; K21.9 Gastro-esophageal reflux disease without esophagitis; Z95.2 Presence of prosthetic heart valve; Z95.0 Presence of cardiac pacemaker; Z96.1 Presence of intraocular lens; Z98.42 Cataract extraction status, left eye; Z98.41 Cataract extraction status, right eye; Z90.49 Acquired absence of other specified parts of digestive tract; Z79.01 Long term (current) use of anticoagulants; Z79.02 Long term (current) use of antithrombotics/antiplatelets; Z79.899 Other long term (current) drug therapy; R93.3 Abnormal findings on diagnostic imaging of other parts of digestive tract; K59.00 Constipation, unspecified; K40.20 Bilateral inguinal hernia, without obstruction or gangrene, not specified as recurrent; M47.816 Spondylosis without myelopathy or radiculopathy, lumbar region; M16.0 Bilateral primary osteoarthritis of hip; M46.1 Sacroiliitis, not elsewhere classified
CPT/HCPCS: 73502; 74176; 81001; 99284; J7512

== ENCOUNTER 2024-12-01 19:04 | Inpatient (IN) | payer MEDICARE, BC, SELFPAY ==
[2024-12-01] VITALS (23 sets, daily range): BP systolic 121–150; BP diastolic 51–62; PULSE 76–112; RESP 12–20; TEMP 36.5–37.9; O2SAT 97–100
--- NOTE | ~2024-12-01 | CT_ITS ---
EXAMINATION: CT knee RT wo con DATE: 12/08/2024 11:20 INDICATION: Right knee pain with bacteremia TECHNIQUE: High resolution computed tomography (CT) of the right knee was performed without intraveno us contrast. Additional sagittal and coronal reconstructions were performed. Automated exposure contr ol and iterative reconstruction technique were employed. The dose-length product was 1082.47 mGy-cm. COMPARISON: None FINDINGS: Bone alignment is normal. No fracture. Severe osteoarthritis at the medial compartment of the left kn ee with remodeling of the articular surface at the medial two thirds of the medial tibial plateau and tiny subarticular cystlike changes along both sides of the joint space. Mild osteoarthritis of the p atellofemoral compartment with tiny marginal osteophytes and mild lateral sided joint space narrowing . Tiny marginal osteophytes in the lateral compartment with joint space narrowing between the anterio r weightbearing lateral femoral condyle and the intercondylar eminence. Large knee joint effusion at the suprapatellar pouch and at the popliteal recess. Is also a small [place]'s cyst. Atherosclerotic ca lcific a cyst along the popliteal artery as well as the tibioperoneal trunk and visualized proximal a nterior tibial, posterior tibial and peroneal arteries. There are some subcutaneous edema along the l ateral aspect of the knee.. IMPRESSION: 1. Nonspecific large right knee joint effusion. Given the presence of bacteremia and knee pain would recommend diagnostic arthrocentesis. 2. 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 Reviewed, dictated and finalized at location A. IMPRESSION: 1. Nonspecific large right knee joint effusion. Given the presence of bacteremi a and knee pain would recommend diagnostic arthrocentesis. 2. Tricompartmental osteoarthritis, severe at the medial compartment of the kne e.
--- NOTE | ~2024-12-01 | CT_ITS ---
EXAMINATION: CT pelvis wo con DATE: 12/08/2024 11:20 INDICATION: Hip pain TECHNIQUE: High resolution computed tomography (CT) of the pelvis was performed without intravenous c ontrast. Additional sagittal and coronal reconstructions were performed. Automated exposure control a nd iterative reconstruction technique were employed. The dose-length product was 1082.47 mGy-cm. COMPARISON: 12/01/2024 and 11/06/2024 FINDINGS: Bone alignment is normal. Lag screw fixation at the proximal right femur presumably for old healed fr acture with no residual deformity. No acute fractures identified. Severe lower lumbar spondylosis. Tr ansitional lumbosacral segment, sacralized on the left. Mild bilateral hip and sacroiliac osteoarthri tis. No hip joint effusions, hematoma or other abnormal fluid collections. There is however subcutane ous edema at the bilateral flanks extending caudally along the lateral aspect of the hips and into th e proximal thighs. There is increased fat within the bilateral inguinal canals, unclear whether repre senting inguinal hernias or related to body habitus. Status post prostatectomy. Moderate diverticulos is along the precise descending and proximal sigmoid colon without adjacent from trace stranding to s uggest diverticulitis. No free fluid in the pelvis. No pathologically enlarged pelvic or inguinal lym phadenopathy. IMPRESSION: 1. Lag screw fixation at the proximal right femur presumably for old healed fracture. No acute osseou s abnormality. 2. Severe lower lumbar spondylosis. Reviewed, dictated and finalized at location A. IMPRESSION: 1. Lag screw fixation at the proximal right femur presumably for old healed fra cture. No acute osseous abnormality. 2. Severe lower lumbar spondylosis.
--- NOTE | ~2024-12-01 | CT_ITS ---
EXAMINATION: CT brain wo con DATE: 12/01/2024 21:34 INDICATION: confusion . TECHNIQUE: Computed tomography (CT) of the head was performed without intravenous contrast. The mA wa s adjusted according to patient size. Iterative reconstruction technique was employed. The dose-lengt h product was 983.67 mGy-cm. COMPARISON: None. FINDINGS: No acute intracranial hemorrhage or extra-axial fluid collection. No hydrocephalus, mass, or herniation. No acute ischemic infarct. Unremarkable dural venous sinus attenuation. No acute osseous abnormality. Right maxillary air-fluid level, the remaining aerated spaces are clear. Moderate atrophy and chronic white matter change. Atherosclerotic intracranial calcification. Bilater al lens replacements. 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 Focal area of left parietal encephalomalacia. IMPRESSION: No acute intracranial process. CT findings that may represent acute right maxillary sinusitis in the appropriate clinical context. Reviewed, dictated and finalized at location K. IMPRESSION: No acute intracranial process. CT findings that may represent acute right maxillary sinusitis in the appropria te clinical context.
--- NOTE | ~2024-12-01 | XR_ITS ---
HISTORY: pain hx of hip replacement COMPARISON: Reference is made to a CT of the pelvis dated 12/08/2024 TECHNIQUE: 2 views of the right hip along with an AP view of the pelvis FINDINGS: Redemonstration of lack screw fixation of the proximal right femur. No acute fracture deformity is appreciated. Significant calcified atherosclerotic disease is noted. IMPRESSION: Hardware in good position without a periprosthetic fracture. Reviewed, dictated and finalized at location A.
--- NOTE | ~2024-12-01 | CT_ITS ---
EXAMINATION: CT chest abdomen pelvis w con DATE: 12/01/2024 21:34 INDICATION: sepsis, weakness, confusion . TECHNIQUE: Computed tomography (CT) of the chest, abdomen, and pelvis was performed with 100 mL Omnip aque-350 intravenous contrast. Automated exposure control and iterative reconstruction technique were employed. The dose-length product was 1436.97 mGy-cm. COMPARISON: X-ray chest, same date; CT abdomen pelvis 11/06/2024 FINDINGS: CHEST: Thoracic aorta: No significant dilation. No dissection. Heavy atherosclerotic plaque. Lung parenchyma and airways: Motion artifact. Dependent scar/atelectasis. Granulomatous calcification s. Thoracic inlet, axillae and chest wall: No thyroid or soft tissue mass. No axillary lymphadenopathy. Mediastinum: No mass or lymphadenopathy. Calcified left hilar nodes. Dilated central pulmonary arteri es. Heart and pericardium: Mild cardiomegaly. Pacer leads terminating in good position. No pericardial ef fusion. Aortic valve replacement. Coronary artery calcifications: Moderate. Pleura: No effusion or mass. Thoracic bones: No acute osseous finding in the chest. ABDOMEN/PELVIS: Liver: Normal. Biliary/Gallbladder: Gallbladder is absent. Persistent low-density material and stranding within the gallbladder fossa, slightly decreased since the prior examination. Stable intra and extrahepatic bile duct dilation. Pneumobilia, a chronic finding Pancreas: Increasing size of the pancreatic head mass now measuring 5.1 x 3.3 cm. Fatty atrophy. Spleen: Normal. Adrenals:Small left adrenal myelolipoma. Kidneys: No suspicious mass. No obstructing calcification. Bilateral cortical thinning. No hydronephr osis. GI tract: No small or large bowel dilation. Status post right colectomy. Appendix surgically absent.. Diverticulosis without diverticulitis. Mesentery/Peritoneum: No ascites, mass, or free air. Retroperitoneum: No mass Atherosclerotic calcifications of intra-abdominal arterial vessels. Infraren al abdominal aortic aneurysm measuring up to 3.5 cm Pelvis: Pelvic organs are within normal limits Soft Tissues: Small and competent fat-containing umbilical and bilateral inguinal hernias Abdominopelvic bones: No acute osseous finding in the abdomen/pelvis. Stable mild multilevel maritza asaf deformities in the lower thoracic and lumbar spine. Uncomplicated fixation screws in the right f emoral neck. IMPRESSION: No acute finding in the chest. Mild cardiomegaly. CT findings suggestive of pulmonary hypertension. Persistent soft tissue density material and stranding in the gallbladder fossa, likely representing r esolving postinfectious/postsurgical change. 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 R ecommend MRI of the abdomen without contrast for further evaluation. Reviewed, dictated and finalized at location K. IMPRESSION: No acute finding in the chest. Mild cardiomegaly. CT findings suggestive of pulmonary hypertension. Persistent soft tissue density material and stranding in the gallbladder fossa, likely representing resolving postinfectious/postsurgical change. Enlarging pancreatic head mass may represent walled off necrosis, pseudocyst, o r other mass lesion. Recommend MRI of the abdomen without contrast for further evaluation.
--- NOTE | ~2024-12-01 | XR_ITS ---
EXAMINATION: XR chest 1V Exam Date/Time: 12/01/2024 20:01 CDT HISTORY: sepsis Comparison: 10/17/2024. RESULT: Lines, tubes, and devices: Left chest pacer with incompletely visualized leads. Cardiac valve replac ement. Lungs and pleura: Low volumes. Leftward rotation. Streaky bibasilar scar/atelectasis, otherwise eddi r. Cardiomediastinal silhouette: Stable. Other: No acute osseous or upper abdominal finding. IMPRESSION: No acute cardiopulmonary process. Reviewed, dictated and finalized at location K.
--- NOTE | ~2024-12-01 | XR_ITS ---
EXAMINATION: XR lumbar spine 2-3V DATE: 12/14/2024 14:33 INDICATION: Lower back pain with bacteremia TECHNIQUE: 3 images of the lumbar spine were obtained. COMPARISON: CT chest, abdomen and pelvis 12/01/2024 FINDINGS: Bony irregularity of the inferior endplate of the L3 vertebral body possibly due to a compression fracture of indeterminate age. Correlate for point tenderness. The remaining lumbar vertebral body heights are within normal limits. Moderate to severe degenerative change at the L4-5 and L5-S1 levels. Vascular calcifications are noted in the aorta. Bones appear osteopenic. There is bowel gas and stool projecting over the pelvis which limits evaluation. IMPRESSION: 1. Bony irregularity of the inferior endplate of the L3 vertebral body possibly due to a compression fracture of indeterminate age. Correlate for point tenderness. 2. The remaining lumbar vertebral body heights are within normal limits. 3. Moderate to severe degenerative change at the L4-L5 and L5-S1 levels. If symptoms persist or worsen, consider an MRI of the lumbar spine for further assessment. Reviewed, dictated and finalized at location Q. IMPRESSION: 1. Bony irregularity of the inferior endplate of the L3 vertebral body possibly due to a compression fracture of indeterminate age. Correlate for point tender ness. 2. The remaining lumbar vertebral body heights are within normal limits. 3. Moderate to severe degenerative change at the L4-L5 and L5-S1 levels. If symptoms persist or worsen, consider an MRI of the lumbar spine for further assessment.
--- NOTE | 2024-12-01 19:12 | ECG_ITS ---
Test Date: 2024-12-01 19:26:39 Measurements Intervals [place] Rate: 108 P: 66 OR: 186 QRS: -43 QRSD: 134 T: 85 QT: 335 QTc: 450 Interpretive Statements SINUS TACHYCARDIA LEFT AXIS DEVIATION RIGHT BUNDLE BRANCH BLOCK LEFT VENTRICULAR HYPERTROPHY AND ST-T CHANGE CONSIDER HIGH LATERAL INFARCT, AGE INDETERMINATE BASELINE ARTIFACT- I, III, AVR, AVL ABNORMAL ECG Compared to ECG 09/30/2024 15:49:49 HEART RATE HAS INCREASED Electronically Signed On 12-01-2024 20:27:01 CDT by Rachid Farnsworth D.O.
--- NOTE | 2024-12-01 19:23 | ED.WEAKNESS ---
HPI - Weakness General Chief complaint: Weakness Stated complaint: weakness Time Seen by Provider: 12/01/24 19:08 History of Present Illness HPI Narrative: 89-year-old male with a past medical history including recent choledocholithiasis and bacteremia requiring ERCP, cholecystectomy and broad-spectrum antibiotics. He had a prolonged hospital stay for 31 days and developed DVT. He is on anticoagulation. Patient presents to the emergency department from home with concerns of increasing weakness and lethargy for anywhere between a week to a month's time. Patient is a very poor historian and not able to tell me any collateral information. He is confused and altered at this time but no focal or lateralizing deficits on triage exam. Patient is slow to respond to questioning but is alert to his name but not much else. Great poor historian at this time and not able to get collateral formation. Remaining history obtained by EMR and family recollection after their arrival. Patient not able to provide review of systems question answers. Related Data Home Medications ?Medication ?Instructions ?Recorded ?Confirmed ?Last Taken ?Type clopidogrel 75 mg tablet (Plavix) 75 mg PO DAILY 09/30/24 12/02/24 12/01/24 History docusate sodium 100 mg capsule 100 mg PO DAILY 09/30/24 12/02/24 12/01/24 History (Colace) fluticasone propionate 50 2 spray intranasal DAILY PRN 09/30/24 12/02/24 09/29/24 History mcg/actuation nasal allergy symptoms spray,suspension (Flonase Allergy Relief) metolazone 5 mg tablet 5 mg PO DAILY 09/30/24 12/02/24 12/01/24 History verapamil 120 mg tablet 120 mg PO DAILY 09/30/24 12/02/24 12/01/24 History Allergies Allergy/AdvReac Type Severity Reaction Status Date / Time atorvastatin Allergy Unknown myalgia Verified 12/01/24 19:32 rosuvastatin Allergy Unknown myalgia Verified 12/01/24 19:32 Review of Systems Review of Systems: As reviewed above in HPI [facility] Past Medical History Medical History AAA (abdominal aortic aneurysm) 3.6 cm Choledocholithiasis with acute cholecystitis Cholangitis Elevated LFTs Chronic pain 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 URI (upper respiratory infection) Preoperative clearance History of colon polyps Dupuytren's contracture of right hand Pre-operative clearance Trigger finger, right middle finger Iron deficiency anemia Low back pain radiating to left leg Type II diabetes mellitus with renal manifestations Essential hypertension, benign Mixed hyperlipidemia Bilateral inguinal hernia Small fat containing bilateral inguinal hernias noted on CT 09/30/2024 Hepatic steatosis Chronic pain GERD (gastroesophageal reflux disease) Dyslipidemia BPH (benign prostatic hyperplasia) Type 2 diabetes mellitus Hypertension Hyperlipidemia Chronic kidney disease Heart failure 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 moderate mitral valve regurgitation Surgical History Surgical History History of repair of right rotator cuff (~07/05/14) Subacromial Decompression; Limited Debridement Status post cataract extraction of both eyes with insertion of intraocular lens 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 He has 3 children. He is a retired [employer]. He he is a lifelong nonsmoker and does not drink alcohol or use illicit substances. He ambulates with a walker. Code status: Full code (he states he would not want long-term intubation or feeding tube) Surrogate decision maker: Nallely () Smoking status: Never smoker Second hand tobacco smoke exposure: No Alcohol intake: never Substance use: never Do You Feel Safe in your Home?: Yes Lack of Transportation: No Lack of Food: Never True Current Housing: I Have Housing Concerned About Future Housing: No Difficulty Paying Gas/Electric Bills: No Difficulty Paying for Meds: No Currently Unemployed: No Education: Don't Know Difficulty w/ Childcare or Family Care: No Living arrangements: with family Gender identity (if verbalized by the patient): Male Spiritual care concerns: No Exam Narrative: GENERAL: Ill-appearing, tachycardic, febrile HEAD: Normocephalic EYES: Pupils equal and reactive ENT: Nares clear, no rhinorrhea or epistaxis. Mucous membranes moist. NECK: Supple. CHEST: Clear to auscultation, no respiratory distress or tachypnea HEART: [Regular rate and rhythm]. No murmur heard. [Normal peripheral pulses.] ABDOMEN: [Soft, nondistended], tender to palpation, [No rigidity or guarding] EXTREMITIES: Normal range of motion. No edema Pain reproduced with any range of motion of his extremities SKIN: Warm, dry, no rash. NEURO: Able to move his extremities, alert oriented x1, confused and repeats answers to questions, slow to respond to questioning, no facial asymmetry slurring of his speech Course Vital Signs Vital signs: Vital Signs Temperature 37.9 C H 12/01/24 19:04 Pulse Rate 112 H 12/01/24 19:04 Respiratory Rate 13 12/01/24 19:04 Blood Pressure 150/62 H 12/01/24 19:04 Pulse Oximetry 99 12/01/24 19:04 Oxygen Delivery Room Air 12/01/24 19:04 Temperature 37.1 C 12/02/24 03:30 Pulse Rate 69 12/02/24 03:30 Respiratory Rate 14 12/02/24 03:30 Blood Pressure 120/58 L 12/02/24 03:30 Pulse Oximetry 100 12/02/24 03:30 Oxygen Delivery Room Air 12/01/24 19:04 MDM - Weakness MDM Narrative Medical decision making narrative: 89-year-old male with a past medical history including recent choledocholithiasis and bacteremia requiring ERCP, cholecystectomy and broad-spectrum antibiotics. He had a prolonged hospital stay for 31 days and developed DVT. He is on anticoagulation. Patient presents to the emergency department from home with concerns of increasing weakness and lethargy for anywhere between a week to a month's time. Patient is a very poor historian and not able to tell me any collateral information. He is confused and altered at this time but no focal or lateralizing deficits on triage exam. Patient is slow to respond to questioning but is alert to his name but not much else. Great poor historian at this time and not able to get collateral formation. Remaining history obtained by EMR and family recollection after their arrival. Patient not able to provide review of systems question answers. Patient is septic appearing, ill-appearing and tachycardic and febrile. Blood pressure 150/62, he is confused and not able to answer questions appropriately, alert x1 at this time. No focal or lateralizing deficits, but he is slow to respond and appears weak globally. Patient does have tenderness to palpation as abdomen and complaining of abdominal pain. He has also pain globally with palpation basically everywhere on his extremities with no focal findings such as step-offs deformities or bruising. Septic bundle was initiated this time and he was given 30 cc/kg bolus given sepsis concerns with his recent bacteremia. Started on broad-spectrum antibiotics including vancomycin cefepime. Given Tylenol 1000 mg p.o., laboratory studies obtained, CT of the head and CT chest abdomen pelvis with contrast obtained for further delineation of potential sources. EKG chest x-ray, blood cultures, lactic acid, CBC, CMP ordered. Urinalysis with straight catheterization, urine drug screen. Patient's workup shows a leukocytosis of 10.5, acute anemia with a hemoglobin of 5.2 and hematocrit 17.3. Significant drop from his prior baseline around 8-10 range. No active bleeding, no dark tarry stools. Unclear exact source. 2 units packed red blood cells ordered for transfusion. Electrolytes show acute on chronic kidney disease with acute exacerbation with likely prerenal azotemia BUN 62. Mildly abnormal electrolytes but normal potassium. Glucose 157. LFTs are all normal. CRP largely elevated at 32.6, lipase negative. Urinalysis negative for infection. Negative alcohol level, drug screen positive for opiates otherwise negative. Chest x-ray shows no acute cardiopulmonary process. CT of the head shows no intracranial process. CT abdomen pelvis shows no acute findings in the chest, mild cardiomegaly seen. CT evidence of pulmonary hypertension. Soft tissue density in the gallbladder fossa likely post infectious or post surgical period concerning pancreatic head mass with interval enlargement from last month with differential remaining broad but including pseudocyst, necrosis or mass lesion. Recommending MRI per radiology. I discussed the case with the welfare eligibility interviewer on-call Dr. Palma and had extensive discussions regarding the patient's CT findings and examination as well as concern for sepsis with unknown source exactly but potential infected pseudocyst. GI does not think this is a necrosis or pseudocyst without any episodes of pancreatitis or by post ERCP pancreatitis with his negative nuclear HIDA scan after the ERCP. He has no stones evident on the scan, we went over patient's previous ERCP report and procedures in the hospital last month. LFTs are normal. No jaundice appearing. Recommending MRCP and continued broad-spectrum antibiotics while workup underway and agree with transfusion for 2 units at this time. Patient will be seen by GI in the morning. Discussed the case with the hospitalist Dr. Freddy nj who after we went over patient's clinical exam, historical features, response to fluid resuscitation and Tylenol and concern for sepsis with still unclear source but potential bacteremia or infected pseudocyst higher on the differential patient was accepted the IMU. I went and re-evaluated the patient multiple times and he was doing better with improvement vital signs. Family no longer present and did not get a chance to speak with them on plan of care. Patient successfully admitted to the hospital at this time. Medical Records Attestation: I reviewed the patient's medical records. Lab Data Attestation: I reviewed the patient's lab results. 12/01/24 19:23 12/01/24 19:23 Labs: Lab Results 12/01/24 12/01/24 12/01/24 Range/Units 19:23 19:31 19:43 WBC 10.5 H (4.5-10.0) K/mm3 RBC 1.95 L (4.6-6.20) M/mm3 Hgb 5.2 L* D (14.0-18.0) g/dL Hct 17.3 L* (42.0-52.0) % MCV 88.7 (80-100) fl MCH 26.7 (26-34) pg MCHC 30.1 L (32-36) g/dl RDW 17.1 H (11.5-14.5) % Plt Count 509 H (150-375) k/mm3 MPV 8.7 (7.4-10.4) fl Immature Gran % (Auto) 2.8 H (0-0.5) % Neut % (Auto) 65.0 (45.5-73.1) % Lymph % (Auto) 18.4 (18.3-44.2) % [place] % (Auto) 12.7 H (2.6-8.5) % Eos % (Auto) 0.9 (0-4.4) % Baso % (Auto) 0.2 (0.2-1.2) % Lymph # (Auto) 1.93 (0.9-3.2) K/mm3 [place] # (Auto) 1.3 H (0.1-0.6) K/mm3 Eos # (Auto) 0.1 (0-0.3) K/mm3 Baso # (Auto) 0.0 (0.0-0.1) K/mm3 Abs Immat Gran (auto) 0.29 H (0.00-0.031) K/mm3 Absolute Neuts (auto) 6.8 H (1.3-6.7) K/mm3 Absolute Nucleated RBC 0.040 H (0.0-0.012) K/mm3 Nucleated RBC % 0.4 H (0.0-0.2) % PT 15.6 H (11.1-14.7) Seconds INR 1.3 APTT 50.6 H (22.3-36.8) Seconds Sodium 132 L (137-145) mmol/L Potassium 4.0 (3.4-5.0) mmol/L Chloride 103 (98-107) mmol/L Carbon Dioxide 20 L (22-30) mmol/L Anion Gap 9 (4-12) mmol/L BUN 62 H D (9-20) mg/dL Creatinine 2.49 H (0.7-1.3) mg/dL Estim Creat Clear Calc 19 ml/min Estimated GFR 25 L (59 - ) Glucose 157 H (65-110) mg/dL Lactic Acid 0.9 (0.7-2.0) mmol/L Calcium 9.0 (8.4-10.2) mg/dL Total Bilirubin 0.8 (0.2-1.3) mg/dL AST 38 (17-59) U/L ALT 19 (6-50) U/L Alkaline Phosphatase 121 (38-126) U/L C-Reactive Protein 32.6 H (<1.0) mg/dL Total Protein 7.2 (6.3-8.2) g/dL Albumin 3.2 L (3.5-5.1) g/dL Lipase < 10 L (23-300) U/L Urine Color Yellow (Yellow) Urine Appearance Clear (Clear) Urine pH 5.0 (5.0-9.0) Ur Specific [place] 1.012 (1.001-1.035) Urine Protein Trace (Negative) mg/dL Urine Glucose (UA) Negative (Negative) mg/dL Urine Ketones Negative (Negative) mg/dL Ur Blood (Man) Negative (Negative) Urine Nitrate Negative (Negative) Urine Bilirubin Negative (Negative) Urine Urobilinogen 1.0 (<2.0) mg/dL Leukocyte Esterase Rfl Trace H (Negative) TAMI/UL Urine RBC 0-2 (0-2) /hpf Urine WBC 0-5 (0-3) /hpf Ur Squamous Epith Cells None seen (Few) /hpf Urine Bacteria None seen /hpf Urine Casts 3-5 Urine Opiates Screen Positive A (Negative) Urine Methadone Screen Negative (Negative) Ur Barbiturates Screen Negative (Negative) Ur Phencyclidine Scrn Negative (Negative) Ur Amphetamine Screen Negative (Negative) U Benzodiazepines Scrn Negative (Negative) Urine Cocaine Screen Negative (Negative) U Cannabinoids Screen Negative (Negative) Ethyl Alcohol < 10 (<10) mg/dL Blood Type O Positive Antibody Screen Negative Crossmatch See Detail Imaging Data Attestation: I personally reviewed and interpreted this imaging study as follows: My impression: Impressions Chest X-Ray 12/01/24 21:09 IMPRESSION: No acute cardiopulmonary process. Head CT 12/01/24 21:34 IMPRESSION: No acute intracranial process. CT findings that may represent acute right maxillary sinusitis in the appropriate clinical context. Chest/Abdomen/Pelvis CT 12/01/24 21:35 IMPRESSION: No acute finding in the chest. Mild cardiomegaly. CT findings suggestive of pulmonary hypertension. Persistent soft tissue density material and stranding in the gallbladder fossa, likely representing resolving postinfectious/postsurgical change. 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 Recommend MRI of the abdomen without contrast for further evaluation. Critical Care Time Critical Care Time Critical Care Time: Yes Total Critical Care Time: 105 Discharge Plan Discharge Clinical Impression: Sepsis, Acute kidney injury superimposed on CKD, Mass of head of pancreas, Acute anemia, Anemia requiring transfusions, Fever Patient Disposition: Still a Patient Condition: Guarded Prognosis Time of Disposition: 04:11
[2024-12-01 19:31] LABS: Immature Granulocyte Percent A 2.8 % (0-0.5); Lymphocytes Absolute Auto 1.93 K/mm3 (0.9-3.2); Mean Corpuscular HGB Conc 30.1 g/dl (32-36); Mean Corpuscular Hemoglobin 26.7 pg (26-34); Mean Corpuscular Volume 88.7 fl (80-100); Nucleated Red Blood Cells Absolute Auto 0.040 K/mm3 (0.0-0.012); Nucleated Red Blood Cells Perc 0.4 % (0.0-0.2); Platelet Count Result 509 k/mm3 (150-375); Red Blood Count 1.95 M/mm3 (4.6-6.20); White Blood Count 10.5 K/mm3 (4.5-10.0)
[2024-12-01 19:44] LABS: Alanine Aminotransferase 19 U/L (6-50); Albumin Level 3.2 g/dL (3.5-5.1); Alkaline Phosphatase 121 U/L (38-126); Anion Gap 9 mmol/L (4-12); Aspartate Amino Transferase 38 U/L (17-59); Bilirubin,Total 0.8 mg/dL (0.2-1.3); Blood Urea Nitrogen 62 mg/dL (9-20); Calcium 9.0 mg/dL (8.4-10.2); Carbon Dioxide 20 mmol/L (22-30); Chloride 103 mmol/L (98-107); Estimated CRCL calculation 19 ml/min; Estimated Glomerular Filt Rate 25; Glucose 157 mg/dL (65-110); Potassium 4.0 mmol/L (3.4-5.0); Sodium 132 mmol/L (137-145); Total Protein 7.2 g/dL (6.3-8.2)
[2024-12-01 19:46] LABS: INR 1.3; Prothrombin Time 15.6 Seconds (11.1-14.7)
--- OUTSIDE RECORDS SUMMARY | 2024-12-01 19:47 | XMS_ITS | Clinical Summary ---
Author Organization [facility] Facility Address [address] [place] [id number] Care Team Providers Care Piano Regulator Name Role Phone Unavailable Primary Care Provider [...]
--- OUTSIDE RECORDS SUMMARY | 2024-12-01 19:47 | XMS_ITS | Clinical Summary ---
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
--- OUTSIDE RECORDS SUMMARY | 2024-12-01 19:47 | XMS_ITS | Clinical Summary ---
Author Organization [facility] Address [address], [place] [address] Phone Care Team Providers Care Industrial Hygienist Name Role Phone Mario Alberto Fleming DO Primary Care Provider [phone] Allergies Active Allergy Reactions Criticality Noted Date [...] on file Legal Sex Male 9:25 AM [facility] Gender Identity Not on file [...] Influenza Vaccine (#1) 2024 04/22/2020 Insurance MEDICARE [facility]) Care Teams Industrial Hygienist Relationship Specialty Start Date End Date Mario Alberto Fleming DO [address] [place] [id number] PCP - General Internal Medicine 10/11/18
--- OUTSIDE RECORDS SUMMARY | 2024-12-01 19:47 | XMS_ITS | Clinical Summary ---
Author Organization [facility] Address [address] [place] [id number] Care Team Providers Care Dry Cleaning Machine Operator Helper Name Role Phone Eric Duong MD Primary Care Provider Hayder Penn MD Unavailable [phone] Allergies Active Allergy Reactions Criticality Noted Date Comments Atorvastatin Rosuvastatin Ichddnx-Fse-Dkq Reductase Inhibitors Muscle pain Medium 11/21/2018 Other: [...] (benign prostatic hyperplasia) Type 2 diabetes mellitus Arthritis History of transfusion Back pain Family [...] drink = 0.6 oz pur e alcohol) [employer] Utilities Answer Date Recorded In the past 12 months has [employer], gas, oil, or water [employer] threatened to shut off services in your [...] often do you attend chur ch or congregation services? More than 4 times per year 05/23/2023 Do you belong to any clubs o r organizations such as uatsdin groups, unions, fraternal or athletic groups, or [...] place to sleep or slept in a correction (including now)? No 05/23/2023 Personal Safety Answer Date Recorded Have you ever been in or are you currently in a harmful physical or emotional relationship or is someone making you feel afraid or unsafe? Denies 05/24/2023 Sex and Gender Information Value Date Recorded Sex Assigned at Not on file Legal Sex Male 3:02 AM INDUSTRIAL TECHNOLOGIST Gender Identity Not on file Sexual Orientation Not on file Obstetrics History Last Filed Vital Signs Vital Sign Reading Time Taken Comments Blood Pressure 172/75 05/25/2023 12:04 PM INDUSTRIAL TECHNOLOGIST Pulse 100 05/25/2023 12:04 PM INDUSTRIAL TECHNOLOGIST Temperature 36.9 C (98.4 F) 05/25/2023 7:38 AM INDUSTRIAL TECHNOLOGIST Respiratory Rate 18 05/25/2023 12:04 PM INDUSTRIAL TECHNOLOGIST Oxygen Saturation 98% 05/25/2023 12:04 PM INDUSTRIAL TECHNOLOGIST Inhaled Oxygen Concentration - - Weight 89.9 kg (198 lb 4.8 oz) 05/25/2023 6:00 A M INDUSTRIAL TECHNOLOGIST Height 172.7 cm (5' 8) 05/24/2023 5:20 PM INDUSTRIAL TECHNOLOGIST Body Mass Index 30.15 05/24/2023 5:20 PM INDUSTRIAL TECHNOLOGIST Plan of Treatment Health Maintenance Due Date [...] 08/26/2020, 07/29/2020 Depression Screening 04/26/2024 04/26/2023, 04/26/19 Fall Risk Assessment 05/25/2024 05/25/2023 eGFR 05/25/2024 05/25/2023, 04/27, 05/24/2023, Additional history exists Influenza Vaccine (#1) 2024 04/22/2020, 2019 Pneumococcal vaccine 65+ Completed 12/24/2008, 04/26 Medical Devices Implanted Type Area Gas Turbine Assembler Device Identifier Shelf Expiration Date Model / Serial / Lot [employer] Device Clsr Perclose Prostyle Sut-Mediatd Closure-Repair Sys 04609-22 - [id number] Implanted:Qty: 1 on 05/23/2023 by Hu Chapman MD at [facility] [employer] 02/22/2025 [id number] / / [id number] [employer] Device Clsr Perclose Prostyle Sut-Mediatd Closure-Repair Sys 20879-49 - [id number] Implanted:Qty: 1 on 05/23/2023 by Hu Chapman MD at [facility] [employer] 02/22/2025 [id number] / / [id number] [employer] Devendra 3 Commander [place] 26mm Transcatheter Ultra Low Profile [id number] - [id number] - [id number] Implanted:Qty: 1 on 05/23/2023 by Hu Chapman MD at [facility] [employer] 01/25/2026 [id number] / [id number] / [employer] Promri Solia S 60cm Lead Pacing Steroid Eluting [id number] - [id number] - [id number] Implanted:Qty: 1 on 05/24/2023 by Hayder Penn MD at [facility] Left: Chest [employer] 02/22/2025 [id number] / [id number] / [employer] Solia S 53cm Steroid Elute Bipolar Active Fixation Endocardial [id number] - [id number] - [id number] Implanted:Qty: 1 on 05/24/2023 by Hayder Penn MD at [facility] Left: Chest [employer] Inc [id number] 04/24/2025 [id number] / [id number] / [employer] Edora Promri [id number] Dual Chamber Rate Adaptive Unipolar Bipolar [id number] - [id number] - [id number] Implanted:Qty: 1 on 05/24/2023 by Hayder Penn MD at [facility] Left: Chest [employer] 09/22/2024 [id number] / [id number] / Procedures Procedure Name Priority Date/Time Associated Diagnosis Comments EGFR Routine 05/25/2023 5:27 AM INDUSTRIAL TECHNOLOGIST from Last 3 Months or Most Recently Relevant to Health Maintenance Results * eGFR (05/25/2023 5:27 AM INDUSTRIAL TECHNOLOGIST) [facility] eGFR 21 mL/min/1. 73 m2 ARYAN HERNÁNDEZ [...] last reviewed 2021. Blood 05/25/2023 5:27 AM INDUSTRIAL TECHNOLOGIST 05/25/2023 5:51 AM INDUSTRIAL TECHNOLOGIST Cristina DISLA LAB BLOOD ORDERABLES F inal Result [facility] [address] [place] [address] from Last 3 Months or Most Recently Relevant to Health Maintenance [place] [address] [facility] MEDICARE [facility] Advance Directives For more information, please contact: [phone] * Full Code (Latest Code Status on File) Date Activated Date Inactivated Comments 05/23/2023 11:47 AM 05/25/2023 5:36 PM Care Teams Dry Cleaning Machine Operator Helper Relationship Specialty [place] [address] [place] [address] PCP - General Orthopedic Surgery 03/08/23 [place] [address] [facility] [address] [place] [address] Consulting Physician Cardiology 05/25/23
[2024-12-01 19:48] LABS: Partial Thromboplastin Time 50.6 Seconds (22.3-36.8)
[2024-12-01] MEDS: SODIUM CHLORIDE 0.9% IV 1,000 ML 999 ML IV CONT ×2 (19:54)
[2024-12-01] MEDS: CEFEPIME 2 GM in SODIUM CHLORIDE 0.9% IV 50 ML 100 ML IVPB (19:54)
[2024-12-01] MEDS: SODIUM CHLORIDE 0.9% IV 600 ML 999 ML IV CONT (19:55)
[2024-12-01] MEDS: ACETAMINOPHEN 500 MG TABLET 1000 MG PO (19:55)
[2024-12-01 19:57] LABS: Add Urine Microscopic? YES; Appearance Urine Clear (Clear); Glucose Urine UA Negative (Negative); Leukocyte Esterase Ur Trace LEU/UL (Negative); Nitrate Urine Negative (Negative); Specific Grav Ur 1.012 (1.001-1.035)
[2024-12-01 20:01] LABS: Hematocrit 17.3 % (42.0-52.0); Hemoglobin 5.2 g/dL (14.0-18.0)
[2024-12-01 20:10] LABS: Cannabinoid Screen Urine Negative (Negative)
[2024-12-01 20:10] LABS: CRP 32.6 mg/dL (<1.0)
[2024-12-01] MEDS: VANCOMYCIN 1,250 MG/NS 250 ML 1,250 MG/250 ML BAG 166.67 MG IVPB (21:01)
[2024-12-01] MEDS: TUBING, BLOOD SET 1 EACH XX (22:21)
--- NOTE | 2024-12-01 22:50 | P.HP_ITS ---
H&P: HPI History of Present Illness Date/Time: 12/01/24 22:50 Chief Complaint: anemia and SIRS Narrative: Patient is an 89-year-old male with a past medical history of recent choledocholithiasis and bacteremia requiring ERCP, cholecystectomy, and status post broad-spectrum antibiotics. The patient was recently admitted to the hospital for 31 days, and the record review indicates the patient developed DVT during the hospitalization. Patient was discharged with Eliquis 5 mg p.o. b.i.d.. The patient visited the ED due to concerns about increasing weakness and lethargy after discharge. Patient is a poor historian. Patient has SIRS criteria, but is unable to identify the source of infection. The patient will be started on broad-spectrum antibiotics, vancomycin and cefepime, and blood cultures will be ordered. Patient hemoglobin dropped from 10.1 on 10/24/24 to 5.2. Chest/abdomen/pelvis CT was unable to identify the possible source of infection or bleeding. The ED physician consulted GI and was advised to perform MRCP in the morning. The patient's was present during the examination. She denies any blood in the bowel movement but reports there were some occasional nosebleeds. She reports that lately the patient has been feeling very weak after the physical therapy. Review of Systems Review of Systems: As reviewed above in [facility] Past Medical History Medical History AAA (abdominal aortic aneurysm) 3.6 cm Choledocholithiasis with acute cholecystitis Cholangitis Elevated LFTs Chronic pain 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 URI (upper respiratory infection) Preoperative clearance History of colon polyps Dupuytren's contracture of right hand Pre-operative clearance Trigger finger, right middle finger Iron deficiency anemia Low back pain radiating to left leg Type II diabetes mellitus with renal manifestations Essential hypertension, benign Mixed hyperlipidemia Bilateral inguinal hernia Small fat containing bilateral inguinal hernias noted on CT 09/30/2024 Hepatic steatosis Chronic pain GERD (gastroesophageal reflux disease) Dyslipidemia BPH (benign prostatic hyperplasia) Type 2 diabetes mellitus Hypertension Hyperlipidemia Chronic kidney disease Heart failure 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 moderate mitral valve regurgitation Surgical History Surgical History History of repair of right rotator cuff (~07/05/14) Subacromial Decompression; Limited Debridement Status post cataract extraction of both eyes with insertion of intraocular lens 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 He has 3 children. He is a retired [employer]. He he is a lifelong nonsmoker and does not drink alcohol or use illicit substances. He ambulates with a walker. Code status: Full code (he states he would not want long-term intubation or feeding tube) Surrogate decision maker: Nallely () Smoking status: Never smoker Second hand tobacco smoke exposure: No Alcohol intake: never Substance use: never Do You Feel Safe in your Home?: Yes Lack of Transportation: No Lack of Food: Never True Current Housing: I Have Housing Concerned About Future Housing: No Difficulty Paying Gas/Electric Bills: No Difficulty Paying for Meds: No Currently Unemployed: No Education: Don't Know Difficulty w/ Childcare or Family Care: No Living arrangements: with family Gender identity (if verbalized by the patient): Male Spiritual care concerns: No Meds Home Medications and Allergies Home Medications ?Medication ?Instructions ?Recorded ?Confirmed ?Type furosemide 40 mg tablet See Rx Instructions .Route 08/02/24 12/02/24 Rx .COMPLEX #180 tabs doxazosin 4 mg tablet (Cardura) 4 mg PO QHS #30 tabs 08/08/24 12/02/24 Rx clopidogrel 75 mg tablet (Plavix) 75 mg PO DAILY 09/30/24 12/02/24 History docusate sodium 100 mg capsule 100 mg PO DAILY 09/30/24 12/02/24 History (Colace) fluticasone propionate 50 2 spray intranasal DAILY PRN 09/30/24 12/02/24 History mcg/actuation nasal allergy symptoms spray,suspension (Flonase Allergy Relief) metolazone 5 mg tablet 5 mg PO DAILY 09/30/24 12/02/24 History verapamil 120 mg tablet 120 mg PO DAILY 09/30/24 12/02/24 History Saccharomyces boulardii 250 mg 250 mg PO BID #60 caps 10/24/24 12/02/24 Rx capsule (Florastor) apixaban 5 mg tablet (Eliquis) 5 mg PO Q12HR #60 tabs 10/24/24 12/02/24 Rx pantoprazole 40 mg tablet,delayed 40 mg PO QAM #40 tabs 10/24/24 12/02/24 Rx release polyethylene glycol 3350 17 gram 17 g PO QAM #14 ea 10/24/24 12/02/24 Rx oral powder packet (Miralax) ezetimibe 10 mg tablet (Zetia) 10 mg PO DAILY #90 tabs 10/30/24 12/02/24 Rx famotidine 20 mg tablet (Acid 20 mg PO BID #180 tabs 10/30/24 12/02/24 Rx Controller) finasteride 5 mg tablet 5 mg PO DAILY #90 tabs 10/30/24 12/02/24 Rx pioglitazone 15 mg tablet (Actos) 15 mg PO DAILY #90 tabs 10/30/24 12/02/24 Rx methocarbamol 750 mg tablet 750 mg PO TID PRN muscle spasm #30 11/06/24 12/02/24 Rx tabs prednisone 20 mg tablet 40 mg (2 x 20 mg) PO DAILY 4 days 11/06/24 12/02/24 Rx #8 tabs morphine 15 mg immediate release 15 mg PO Q8H PRN pain #80 tabs 11/20/24 12/02/24 Rx tablet Allergies Allergy/AdvReac Type Severity Reaction Status Date / Time atorvastatin Allergy Unknown myalgia Verified 12/01/24 19:32 rosuvastatin Allergy Unknown myalgia Verified 12/01/24 19:32 Vital Signs Vital Signs - 24 hr 12/01/24 19:04 12/01/24 19:31 12/01/24 22:08 Temperature 100.3 F H 98.8 F Pulse Rate 112 H 112 H 96 Respiratory Rate 13 12 Blood Pressure 150/62 H 130/59 L Pulse Oximetry 99 100 Oxygen Delivery Room Air 12/01/24 22:25 12/01/24 22:25 Temperature 98.2 F 98.1 F Pulse Rate 90 90 Respiratory Rate 14 14 Blood Pressure 129/54 L 129/54 L Pulse Oximetry 98 98 Oxygen Delivery Exam Narrative: GENERAL: Ill-appearing, tachycardic, febrile HEAD: Normocephalic EYES: Pupils equal and reactive ENT: Nares clear, no rhinorrhea or epistaxis. Mucous membranes moist. NECK: Supple. CHEST: Clear to auscultation, no respiratory distress or tachypnea HEART: [Regular rate and rhythm]. No murmur heard. [Normal peripheral pulses.] ABDOMEN: [Soft, nondistended], tender to palpation, [No rigidity or guarding] EXTREMITIES: Normal range of motion. No edema Pain reproduced with any range of motion of his extremities SKIN: Warm, dry, no rash. NEURO: Able to move his extremities, alert oriented x1, confused and repeats answers to questions, slow to respond to questioning, no facial asymmetry slurring of his speech H&P: Results Labs Labs: Short CBC 12/01/24 Range/Units 19:23 WBC 10.5 H (4.5-10.0) K/mm3 Hgb 5.2 L* D (14.0-18.0) g/dL Hct 17.3 L* (42.0-52.0) % Plt Count 509 H (150-375) k/mm3 BMP 12/01/24 19:23 Sodium 132 L Potassium 4.0 Chloride 103 Carbon Dioxide 20 L BUN 62 H D Creatinine 2.49 H Glucose 157 H Calcium 9.0 Liver Function 12/01/24 Range/Units 19:23 Total Bilirubin 0.8 (0.2-1.3) mg/dL AST 38 (17-59) U/L ALT 19 (6-50) U/L Alkaline Phosphatase 121 (38-126) U/L Albumin 3.2 L (3.5-5.1) g/dL Urine 12/01/24 Range/Units 19:43 Urine Color Yellow (Yellow) Urine Appearance Clear (Clear) Urine pH 5.0 (5.0-9.0) Ur Specific [place] 1.012 (1.001-1.035) Urine Protein Trace (Negative) mg/dL Urine Glucose (UA) Negative (Negative) mg/dL Assessment and Plan Assessment and plan (1) SIRS (systemic inflammatory response syndrome): Code(s): R65.10 - Systemic inflammatory response syndrome (SIRS) of non-infectious origin without acute organ dysfunction Status: Acute Assessment and Plan: meets sirs criteria: Elevated temperature, increased heart rate given 3l bolus 30ml/kg in first 3 hours, received 2 L Unknown source of infection Order cefepime and vancomycin Order nasal MRSA Order blood culture and urine culture Lactic acid 0.9 Order PT PTT INR Order COVID flu RSV Monitor vitals Consider hydrocotisone 200mg x 3 days if blood pressure drops (2) Anemia: Code(s): D64.9 - Anemia, unspecified Status: Acute Assessment and Plan: Currently receiving 1 unit PRBC Hold Eliquis due to significant drop in hemoglobin GI consulted Monitor H&H Transfuse PRBC Unable to identify the source of bleeding Protonix 40 mg b.i.d. IV (3) DVT (deep venous thrombosis): Code(s): I82.409 - Acute embolism and thrombosis of unspecified deep veins of unspecified lower extremity Status: Acute Assessment and Plan: As mentioned above (4) Mass of head of pancreas: Code(s): K86.89 - Other specified diseases of pancreas Status: Acute Assessment and Plan: Reason history of cholecystectomy CT abdomen/pelvis shows Enlarging pancreatic head mass GI following MRCP in the morning (5) Hypertension: Code(s): I10 - Essential (primary) hypertension Status: Chronic Assessment and Plan: Due to hypotension- Hold verapamil 120 mg p.o. q.d. Hold metolazone 5 mg p.o. q.d. Hold Lasix 40 mg p.o. b.i.d. Hold Cardura of 4 mg p.o. q.d. Plan Code status full code DVT prophylaxis contraindicated due to significant drop in hemoglobin Hospitalist MIPS Advance Care Plan I have confirmed that the patient's Advanced Care Plan is present, code status is documented, or surrogate decision maker is listed in patient medical record.: Yes Medication Reconciliation I have utilized all available resources to obtain, update and review the patients current medications (includes all prescriptions, OTC, herbals, cannabis, and nutritional supplements).: Yes
[2024-12-01 22:57] LABS: Lipase < 10 U/L (23-300)
[2024-12-01] MEDS: SODIUM CHLORIDE 0.9% IV 250 ML 30 ML IV CONT (23:10)
[2024-12-01] MEDS: SODIUM CHLORIDE 0.9% IV 1,000 ML 125 ML IV CONT (23:14)
[2024-12-02] VITALS (21 sets, daily range): BP systolic 120–157; BP diastolic 51–78; PULSE 56–98; RESP 12–20; TEMP 36.4–37.1; O2SAT 91–100; BMI 28.5
--- NOTE | 2024-12-02 00:07 | ADMGEN ---
This patient, Angel Zuniga, was admitted to IMU Room 211-01 at 0000. Patient/family oriented to hospital policies and general routines including ID bracelet, bed and alarms, visiting hours, pain management, procedures, bathroom and other care routines, personal items, smoking policy, room service/diet, and visiting hours. Information on how to activate the Rapid Response Team has been discussed. Patient/Family are encouraged to report perceived risks to care and to ask questions if they do not understand what they are told or what they should do.
[2024-12-02] MEDS: SODIUM CHLORIDE 0.9% IV 250 ML 30 ML (01:05)
[2024-12-02] MEDS: TUBING, BLOOD PLUM PUMP TUBING 1 EACH XX (01:05)
[2024-12-02 06:26] LABS: Hematocrit 24.0 % (42.0-52.0); Hemoglobin 7.0 g/dL (14.0-18.0); Mean Corpuscular HGB Conc 29.2 g/dl (32-36); Mean Corpuscular Hemoglobin 28.1 pg (26-34); Mean Corpuscular Volume 96.4 fl (80-100); Platelet Count Result 412 k/mm3 (150-375); Red Blood Count 2.49 M/mm3 (4.6-6.20); White Blood Count 10.8 K/mm3 (4.5-10.0)
[2024-12-02] MEDS: SODIUM CHLORIDE 0.9% IV 1,000 ML 125 ML IV CONT (07:15)
[2024-12-02 07:16] LABS: Alanine Aminotransferase 14 U/L (6-50); Albumin Level 2.4 g/dL (3.5-5.1); Alkaline Phosphatase 104 U/L (38-126); Anion Gap 10 mmol/L (4-12); Aspartate Amino Transferase 23 U/L (17-59); Bilirubin,Total 0.8 mg/dL (0.2-1.3); Blood Urea Nitrogen 54 mg/dL (9-20); Calcium 8.3 mg/dL (8.4-10.2); Carbon Dioxide 16 mmol/L (22-30); Chloride 110 mmol/L (98-107); Estimated CRCL calculation 25 ml/min; Estimated Glomerular Filt Rate 35; Glucose 119 mg/dL (65-110); Potassium 4.0 mmol/L (3.4-5.0); Sodium 136 mmol/L (137-145); Total Protein 5.4 g/dL (6.3-8.2)
[2024-12-02 07:39] LABS: MRSA (PCR) NOT DETECTED (NOT DETECTE)
[2024-12-02] MEDS: CEFEPIME 1 GM in SODIUM CHLORIDE 0.9% IV 50 ML 100 ML IVPB ×2 (09:18→21:18)
--- NOTE | 2024-12-02 09:47 | P.PNIM_ITS ---
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(s): Z79.01 - buttermaker (current) use of anticoagulants Status: Acute (2) Type 2 diabetes mellitus with hyperglycemia, without long-term current use of insulin: Code(s): E11.65 - Type 2 diabetes mellitus with hyperglycemia Status: Chronic (3) Chronic kidney disease: Qualifiers: Chronic kidney disease stage: unspecified stage Qualified Code(s): N18.9 - Chronic kidney disease, unspecified Code(s): N18.9 - Chronic kidney disease, unspecified Status: Acute (4) Acute anemia: Code(s): D64.9 - Anemia, unspecified Status: Acute (5) Fever: Code(s): R50.9 - Fever, unspecified Status: Acute Plan He has not had a fever since the recorded 100.3? F on admission. He received large volume fluid resuscitation, he now has hyperchloremia acidosis, will discontinue normal saline. He does not have hypotension. No longer with sinus tachycardia. Do not see an infectious etiology for fever. However will carry through with MRCP. Gastroenterology consultation. Continue cefepime and vancomycin for now, follow-up urine and blood cultures. Will order a quad viral screen. Will check haptoglobin, LDH, reticulocyte count. The patient had prednisone 40 mg p.o. q.day on his home med list and those have been continued. Patient reports he has not taken this for many weeks he was given it during a previous ER visit but does not know why and thinks he presented there for pain. And, he is a very poor historian. On admission, hypotension and fever could explain adrenal insufficiency however that is unlik pablo since he was not taking prednisone for many weeks now and reportedly only took it for 1 week. Also, hemoglobin of 5.6 would more accurately explain his hypotension. Also, he has not had any further fever or any other lab indications of adrenal insufficiency. Continue to monitor for signs of adrenal insufficiency. He apparently was taken Protonix during his course of prednisone however that does not completely preclude peptic ulcer disease. Will check a stool occult. Patient denies any dark stool or bright red blood per rectum. Anemia, status post 1 unit PRBC, his hemoglobin has improved to 7.0 grams/deciliter. Will recheck again in another 4 hours. Hold [employer] Eliquis. Follow-up with Gastroenterology. Continue [employer] Protonix. Restart his [employer] morphine, he complains of severe bilateral knee arthritis and has chronic opioid dependence. Patient wishes to be full code. SCDs. Accu-Cheks a.c. HS with low-dose insulin sliding scale. Ambulate with assistance, fall precautions. He resides at assisted living. Subjective Date/time seen: 12/02/24 09:47 Interval history: No major acute overnight events. Patient complains of bilateral knee pain due to his chronic arthritis. He takes morphine at home usually around the clock and has not received it. He is a poor historian otherwise. Review of Systems Review of Systems: All systems reviewed & are unremarkable except as noted in HPI and below (Subjective) Exam Const: General: comfortable and no acute distress HENMT: Mouth: Yes moist mucous membranes Eyes: Pupils: Equal, round and reactive pupils present Neck: Neck: supple Resp: Effort & Inspection: normal respiratory effort Auscultation: clear to auscultation bilaterally Cardio: Rate: regular rate Rhythm: regular rhythm GI: Inspection: non-distended GI Palp: Yes Soft to palpation Extrem: General: no edema Other: 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, no erythema, no fluctuance Objective Data Vital Signs Vital Signs: Vital Signs - 24 hr 12/01/24 19:04 12/01/24 19:14 12/01/24 19:15 Temperature 100.3 F H Pulse Rate 112 H 108 H 108 H Respiratory Rate 13 14 16 Blood Pressure 150/62 H Pulse Oximetry 99 98 99 Oxygen Delivery Room Air 12/01/24 19:30 12/01/24 19:31 12/01/24 19:31 Temperature Pulse Rate 107 H 112 H 106 H Respiratory Rate 15 14 Blood Pressure 134/56 L Pulse Oximetry 98 Oxygen Delivery 12/01/24 20:08 12/01/24 20:15 12/01/24 20:30 Temperature Pulse Rate 109 H 104 H 99 Respiratory Rate 13 14 15 Blood Pressure Pulse Oximetry 100 98 97 Oxygen Delivery 12/01/24 20:45 12/01/24 21:00 12/01/24 21:35 Temperature Pulse Rate 97 96 102 H Respiratory Rate 17 15 13 Blood Pressure Pulse Oximetry Oxygen Delivery 12/01/24 21:45 12/01/24 22:08 12/01/24 22:25 Temperature 98.8 F 98.2 F Pulse Rate 100 96 90 Respiratory Rate 13 12 14 Blood Pressure 130/59 L 129/54 L Pulse Oximetry 99 100 98 Oxygen Delivery 12/01/24 22:25 12/01/24 22:30 12/01/24 22:31 Temperature 98.1 F Pulse Rate 90 85 84 Respiratory Rate 14 14 14 Blood Pressure 129/54 L 121/54 L Pulse Oximetry 98 98 98 Oxygen Delivery 12/01/24 22:45 12/01/24 23:00 12/01/24 23:01 Temperature Pulse Rate 81 79 78 Respiratory Rate 12 14 16 Blood Pressure 123/60 Pulse Oximetry Oxygen Delivery 12/01/24 23:16 12/01/24 23:25 12/01/24 23:34 Temperature 97.7 F 97.9 F Pulse Rate 81 79 76 Respiratory Rate 14 14 20 Blood Pressure 123/60 130/51 L Pulse Oximetry 100 100 99 Oxygen Delivery 12/01/24 23:57 12/02/24 00:00 12/02/24 00:30 Temperature 97.7 F 97.8 F Pulse Rate 77 80 Respiratory Rate 18 Blood Pressure 126/54 L Pulse Oximetry 99 Oxygen Delivery 12/02/24 01:05 12/02/24 01:22 12/02/24 01:25 Temperature 97.8 F 98.6 F 97.9 F Pulse Rate 74 72 76 Respiratory Rate 20 18 20 Blood Pressure 130/52 L 120/53 L 130/51 L Pulse Oximetry 100 99 99 Oxygen Delivery 12/02/24 02:00 12/02/24 02:25 12/02/24 03:30 Temperature 98.6 F 98.7 F Pulse Rate 73 72 69 Respiratory Rate 18 14 Blood Pressure 120/53 L 120/58 L Pulse Oximetry 99 100 Oxygen Delivery 12/02/24 04:00 12/02/24 04:00 12/02/24 06:00 Temperature 98.7 F Pulse Rate 56 L 70 79 Respiratory Rate 18 Blood Pressure 138/54 L Pulse Oximetry 100 Oxygen Delivery 12/02/24 08:00 Temperature 97.5 F L Pulse Rate 79 Respiratory Rate 20 Blood Pressure 149/57 H Pulse Oximetry 100 Oxygen Delivery Intake/Output Intake/Output: Intake & Output 11/29/24 11/30/24 12/01/24 12/02/24 23:59 23:59 23:59 23:59 Intake Total 3250 1702.5 Output Total 1200 Balance 3250 502.5 Meds/Results Medications: Active Medications Generic Name Dose Route Start Last Admin Trade Name Freq PRN Reason Stop Dose Admin Acetaminophen 650 mg 12/01/24 22:35 Acetaminophen 325 Mg Tablet PO Q4H PRN Mild Pain (1-3) or Fever Doxazosin Mesylate 4 mg 12/02/24 21:00 Doxazosin Mesylate 4 Mg Tablet PO QHS VU Finasteride 5 mg 12/02/24 09:00 Finasteride 5 Mg Tablet PO DAILY VU Fluticasone Propionate 2 spray 12/02/24 03:58 Fluticasone Propionate 0.05% Na Spr 16 Gm Btl (*Bkc) NASAL DAILY PRN allergy symptoms Cefepime HCl 1 gm/ Sodium 50 mls @ 100 mls/hr 12/02/24 08:00 12/02/24 09:18 Chloride IVPB 100 mls/hr Q12H VU Administration Ondansetron HCl 4 mg 12/01/24 22:35 Ondansetron Inj 4 Mg/2 Ml Vial IV PUSH Q4H PRN Nausea Vancomycin HCl 1 each 12/01/24 21:46 Vancomycin For Acute Kidney Injury IVPB PRN PRN Vancomycin Protocol Radiology Results: ITS Impressions Chest X-Ray 12/01/24 21:09 IMPRESSION: No acute cardiopulmonary process. Head CT 12/01/24 21:34 IMPRESSION: No acute intracranial process. CT findings that may represent acute right maxillary sinusitis in the appropriate clinical context. Chest/Abdomen/Pelvis CT 12/01/24 21:35 IMPRESSION: No acute finding in the chest. Mild cardiomegaly. CT findings suggestive of pulmonary hypertension. Persistent soft tissue density material and stranding in the gallbladder fossa, likely representing resolving postinfectious/postsurgical change. 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 Recommend MRI of the abdomen without contrast for further evaluation. Labs Labs: Laboratory Results - last 24 hr 12/01/24 12/01/24 12/01/24 19:23 19:31 19:43 WBC 10.5 H RBC 1.95 L Hgb 5.2 L* D Hct 17.3 L* MCV 88.7 MCH 26.7 MCHC 30.1 L RDW 17.1 H Plt Count 509 H MPV 8.7 Immature Gran % (Auto) 2.8 H Neut % (Auto) 65.0 Lymph % (Auto) 18.4 Camp % (Auto) 12.7 H Eos % (Auto) 0.9 Baso % (Auto) 0.2 Lymph # (Auto) 1.93 Camp # (Auto) 1.3 H Eos # (Auto) 0.1 Baso # (Auto) 0.0 Abs Immat Gran (auto) 0.29 H Absolute Neuts (auto) 6.8 H Absolute Nucleated RBC 0.040 H Nucleated RBC % 0.4 H PT 15.6 H INR 1.3 APTT 50.6 H Sodium 132 L Potassium 4.0 Chloride 103 Carbon Dioxide 20 L Anion Gap 9 BUN 62 H D Creatinine 2.49 H Estim Creat Clear Calc 19 Estimated GFR 25 L Glucose 157 H Lactic Acid 0.9 Calcium 9.0 Total Bilirubin 0.8 AST 38 ALT 19 Alkaline Phosphatase 121 C-Reactive Protein 32.6 H Total Protein 7.2 Albumin 3.2 L Lipase < 10 L Urine Color Yellow Urine Appearance Clear Urine pH 5.0 Ur Specific [place] 1.012 Urine Protein Trace Urine Glucose (UA) Negative Urine Ketones Negative Ur Blood (Man) Negative Urine Nitrate Negative Urine Bilirubin Negative Urine Urobilinogen 1.0 Leukocyte Esterase Rfl Trace H Urine RBC 0-2 Urine WBC 0-5 Ur Squamous Epith Cells None seen Urine Bacteria None seen Urine Casts 3-5 Nasal MRSA (PCR) Urine Opiates Screen Positive A Urine Methadone Screen Negative Ur Barbiturates Screen Negative Ur Phencyclidine Scrn Negative Ur Amphetamine Screen Negative U Benzodiazepines Scrn Negative Urine Cocaine Screen Negative U Cannabinoids Screen Negative Ethyl Alcohol < 10 Blood Type O Positive Antibody Screen Negative Crossmatch See Detail 12/02/24 12/02/24 06:13 06:22 WBC 10.8 H RBC 2.49 L Hgb 7.0 L Hct 24.0 L MCV 96.4 D MCH 28.1 D MCHC 29.2 L RDW 16.3 H Plt Count 412 H MPV 8.6 Immature Gran % (Auto) Neut % (Auto) Lymph % (Auto) Camp % (Auto) Eos % (Auto) Baso % (Auto) Lymph # (Auto) Camp # (Auto) Eos # (Auto) Baso # (Auto) Abs Immat Gran (auto) Absolute Neuts (auto) Absolute Nucleated RBC Nucleated RBC % PT INR APTT Sodium 136 L Potassium 4.0 Chloride 110 H Carbon Dioxide 16 L Anion Gap 10 BUN 54 H Creatinine 1.84 H Estim Creat Clear Calc 25 Estimated GFR 35 L Glucose 119 H Lactic Acid Calcium 8.3 L Total Bilirubin 0.8 AST 23 ALT 14 Alkaline Phosphatase 104 C-Reactive Protein Total Protein 5.4 L Albumin 2.4 L Lipase Urine Color Urine Appearance Urine pH Ur Specific [place] Urine Protein Urine Glucose (UA) Urine Ketones Ur Blood (Man) Urine Nitrate Urine Bilirubin Urine Urobilinogen Leukocyte Esterase Rfl Urine RBC Urine WBC Ur Squamous Epith Cells Urine Bacteria Urine Casts Nasal MRSA (PCR) Not detected Urine Opiates Screen Urine Methadone Screen Ur Barbiturates Screen Ur Phencyclidine Scrn Ur Amphetamine Screen U Benzodiazepines Scrn Urine Cocaine Screen U Cannabinoids Screen Ethyl Alcohol Blood Type Antibody Screen Crossmatch
[2024-12-02 10:39] LABS: Hematocrit 24.5 % (42.0-52.0); Hemoglobin 7.6 g/dL (14.0-18.0); Immature Reticulocyte Fraction 21.6 % (3.0-15.9); Reticulocyte Hemoglobin Conten 21.3 pg (28.2-36.6); Reticulocytes Absolute 0.04 10^6/uL (0.02-0.10)
[2024-12-02] MEDS: FINASTERIDE 5 MG TABLET PO (10:46)
[2024-12-02] MEDS: MORPHINE SULFATE (*CRX) 15 MG TAB IR PO (10:47)
[2024-12-02] MEDS: PANTOPRAZOLE 40 MG TABLET PO (10:48)
--- NOTE | 2024-12-02 11:16 | P.CONGI_ITS ---
Assessment and Plan Assessment and plan (1) Mass of head of pancreas: Code(s): K86.89 - Other specified diseases of pancreas Status: Acute Assessment and Plan: The patient's sudden and significant drop in hemoglobin, coupled with the presence of a mass in the head of the pancreas, most likely indicates a delayed intramural duodenal bleed following the relatively recent ERCP. This is particularly concerning given the patient's use of anticoagulation and antiplatelet therapy. While the patient is currently hemodynamically stable and has responded to a blood transfusion, both Eliquis and Plavix have been discontinued for now. An MRI would be the ideal next step for better defining the lesion, but it is contraindicated due to the patient's pacemaker. Therefore, the patient will be observed, and a referral will be made for an outpatient endoscopic ultrasound at [facility] as soon as possible. GI Consult Note Consult date/time: 12/02/24 11:16 Reason for consult: abnormal CT scan of the abdomen HPI: Angel Zuniga is an 89-year-old male with a history of cholelithiasis, choledocholithiasis, and bacteremia. He was previously hospitalized for 31 days in September, during which he underwent an ERCP with sphincterotomy and stone extraction on October 16, 2024, followed by a laparoscopic cholecystectomy on October 18, 2024. This surgery involved 350 cc of blood loss, requiring a transfusion. During that hospital stay, he developed deep venous thrombosis (DVT) and was started on anticoagulation. He was admitted yesterday due to weakness and confusion. His labs showed a critically low hemoglobin of 5.2. A CT scan revealed a normal post- cholecystectomy appearance with mild biliary dilatation and pneumobilia. Most notably, the scan described an enlarged pancreatic head, measuring 5.1 x 3.3 cm, with a radiologic differential diagnosis of walled-off necrosis, a pseudocyst, or a mass. At the time of admission, the patient was taking both Eliquis and Plavix. Review of Systems 2 Review of Systems: All systems reviewed & are unremarkable except as noted in HPI and below PMFSH Past Medical History Medical History AAA (abdominal aortic aneurysm) 3.6 cm Choledocholithiasis with acute cholecystitis Cholangitis Elevated LFTs Chronic pain 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 URI (upper respiratory infection) Preoperative clearance History of colon polyps Dupuytren's contracture of right hand Pre-operative clearance Trigger finger, right middle finger Iron deficiency anemia Low back pain radiating to left leg Type II diabetes mellitus with renal manifestations Essential hypertension, benign Mixed hyperlipidemia Bilateral inguinal hernia Small fat containing bilateral inguinal hernias noted on CT 09/30/2024 Hepatic steatosis Chronic pain GERD (gastroesophageal reflux disease) Dyslipidemia BPH (benign prostatic hyperplasia) Type 2 diabetes mellitus Hypertension Hyperlipidemia Chronic kidney disease Heart failure 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 moderate mitral valve regurgitation Surgical History Surgical History History of repair of right rotator cuff (~07/05/14) Subacromial Decompression; Limited Debridement Status post cataract extraction of both eyes with insertion of intraocular lens 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 He has 3 children. He is a retired [employer]. He he is a lifelong nonsmoker and does not drink alcohol or use illicit substances. He ambulates with a walker. Code status: Full code (he states he would not want long-term intubation or feeding tube) Surrogate decision maker: Nallely () Smoking status: Never smoker Second hand tobacco smoke exposure: No Alcohol intake: never Substance use: never Do You Feel Safe in your Home?: Yes Lack of Transportation: No Lack of Food: Never True Current Housing: I Have Housing Concerned About Future Housing: No Difficulty Paying Gas/Electric Bills: No Difficulty Paying for Meds: No Currently Unemployed: No Education: Don't Know Difficulty w/ Childcare or Family Care: No Living arrangements: with family Gender identity (if verbalized by the patient): Male Spiritual care concerns: No Meds Home Medications and Allergies Home Medications ?Medication ?Instructions ?Recorded ?Confirmed ?Type furosemide 40 mg tablet See Rx Instructions .Route 08/02/24 12/02/24 Rx .COMPLEX #180 tabs doxazosin 4 mg tablet (Cardura) 4 mg PO QHS #30 tabs 08/08/24 12/02/24 Rx clopidogrel 75 mg tablet (Plavix) 75 mg PO DAILY 09/30/24 12/02/24 History docusate sodium 100 mg capsule 100 mg PO DAILY 09/30/24 12/02/24 History (Colace) fluticasone propionate 50 2 spray intranasal DAILY PRN 09/30/24 12/02/24 History mcg/actuation nasal allergy symptoms spray,suspension (Flonase Allergy Relief) metolazone 5 mg tablet 5 mg PO DAILY 09/30/24 12/02/24 History verapamil 120 mg tablet 120 mg PO DAILY 09/30/24 12/02/24 History Saccharomyces boulardii 250 mg 250 mg PO BID #60 caps 10/24/24 12/02/24 Rx capsule (Florastor) apixaban 5 mg tablet (Eliquis) 5 mg PO Q12HR #60 tabs 10/24/24 12/02/24 Rx pantoprazole 40 mg tablet,delayed 40 mg PO QAM #40 tabs 10/24/24 12/02/24 Rx release polyethylene glycol 3350 17 gram 17 g PO QAM #14 ea 10/24/24 12/02/24 Rx oral powder packet (Miralax) ezetimibe 10 mg tablet (Zetia) 10 mg PO DAILY #90 tabs 10/30/24 12/02/24 Rx famotidine 20 mg tablet (Acid 20 mg PO BID #180 tabs 10/30/24 12/02/24 Rx Controller) finasteride 5 mg tablet 5 mg PO DAILY #90 tabs 10/30/24 12/02/24 Rx pioglitazone 15 mg tablet (Actos) 15 mg PO DAILY #90 tabs 10/30/24 12/02/24 Rx methocarbamol 750 mg tablet 750 mg PO TID PRN muscle spasm #30 11/06/24 12/02/24 Rx tabs prednisone 20 mg tablet 40 mg (2 x 20 mg) PO DAILY 4 days 11/06/24 12/02/24 Rx #8 tabs morphine 15 mg immediate release 15 mg PO Q8H PRN pain #80 tabs 11/20/24 12/02/24 Rx tablet Allergies Allergy/AdvReac Type Severity Reaction Status Date / Time atorvastatin Allergy Unknown myalgia Verified 12/01/24 19:32 rosuvastatin Allergy Unknown myalgia Verified 12/01/24 19:32 Vital Signs Vital Signs - 24 hr 12/01/24 19:04 12/01/24 19:14 12/01/24 19:15 Temperature 100.3 F H Pulse Rate 112 H 108 H 108 H Respiratory Rate 13 14 16 Blood Pressure 150/62 H Pulse Oximetry 99 98 99 Oxygen Delivery Room Air 12/01/24 19:30 12/01/24 19:31 12/01/24 19:31 Temperature Pulse Rate 107 H 112 H 106 H Respiratory Rate 15 14 Blood Pressure 134/56 L Pulse Oximetry 98 Oxygen Delivery 12/01/24 20:08 12/01/24 20:15 12/01/24 20:30 Temperature Pulse Rate 109 H 104 H 99 Respiratory Rate 13 14 15 Blood Pressure Pulse Oximetry 100 98 97 Oxygen Delivery 12/01/24 20:45 12/01/24 21:00 12/01/24 21:35 Temperature Pulse Rate 97 96 102 H Respiratory Rate 17 15 13 Blood Pressure Pulse Oximetry Oxygen Delivery 12/01/24 21:45 12/01/24 22:08 12/01/24 22:25 Temperature 98.8 F 98.2 F Pulse Rate 100 96 90 Respiratory Rate 13 12 14 Blood Pressure 130/59 L 129/54 L Pulse Oximetry 99 100 98 Oxygen Delivery 12/01/24 22:25 12/01/24 22:30 12/01/24 22:31 Temperature 98.1 F Pulse Rate 90 85 84 Respiratory Rate 14 14 14 Blood Pressure 129/54 L 121/54 L Pulse Oximetry 98 98 98 Oxygen Delivery 12/01/24 22:45 12/01/24 23:00 12/01/24 23:01 Temperature Pulse Rate 81 79 78 Respiratory Rate 12 14 16 Blood Pressure 123/60 Pulse Oximetry Oxygen Delivery 12/01/24 23:16 12/01/24 23:25 12/01/24 23:34 Temperature 97.7 F 97.9 F Pulse Rate 81 79 76 Respiratory Rate 14 14 20 Blood Pressure 123/60 130/51 L Pulse Oximetry 100 100 99 Oxygen Delivery 12/01/24 23:57 12/02/24 00:00 12/02/24 00:30 Temperature 97.7 F 97.8 F Pulse Rate 77 80 Respiratory Rate 18 Blood Pressure 126/54 L Pulse Oximetry 99 Oxygen Delivery 12/02/24 01:05 12/02/24 01:22 12/02/24 01:25 Temperature 97.8 F 98.6 F 97.9 F Pulse Rate 74 72 76 Respiratory Rate 20 18 20 Blood Pressure 130/52 L 120/53 L 130/51 L Pulse Oximetry 100 99 99 Oxygen Delivery 12/02/24 02:00 12/02/24 02:25 12/02/24 03:30 Temperature 98.6 F 98.7 F Pulse Rate 73 72 69 Respiratory Rate 18 14 Blood Pressure 120/53 L 120/58 L Pulse Oximetry 99 100 Oxygen Delivery 12/02/24 04:00 12/02/24 04:00 12/02/24 06:00 Temperature 98.7 F Pulse Rate 56 L 70 79 Respiratory Rate 18 Blood Pressure 138/54 L Pulse Oximetry 100 Oxygen Delivery 12/02/24 08:00 Temperature 97.5 F L Pulse Rate 79 Respiratory Rate 20 Blood Pressure 149/57 H Pulse Oximetry 100 Oxygen Delivery Exam 2 Narrative: Alert and oriented, cooperative. Abdomen: Soft, mildly tender on deep palpation of the epigastrium. No masses, no hepatosplenomegaly. Rest of the exam within normal limits. Const: General: comfortable and no acute distress HENMT: Mouth: Yes moist mucous membranes Eyes: Pupils: Equal, round and reactive pupils present Neck: Neck: supple Resp: Effort & Inspection: normal respiratory effort Auscultation: clear to auscultation bilaterally Cardio: Rate: regular rate Rhythm: regular rhythm GI: Inspection: non-distended GI Palp: Yes Soft to palpation Extrem: General: no edema Other: 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, no erythema, no fluctuance Results Labs 12/02/24 10:12 12/02/24 06:22 Labs: Short CBC 12/01/24 12/02/24 12/02/24 Range/Units 19:23 06:22 10:12 WBC 10.5 H 10.8 H (4.5-10.0) K/mm3 Hgb 5.2 L* D 7.0 L 7.6 L (14.0-18.0) g/dL Hct 17.3 L* 24.0 L 24.5 L (42.0-52.0) % Plt Count 509 H 412 H (150-375) k/mm3 BMP 12/01/24 12/02/24 19:23 06:22 Sodium 132 L 136 L Potassium 4.0 4.0 Chloride 103 110 H Carbon Dioxide 20 L 16 L BUN 62 H D 54 H Creatinine 2.49 H 1.84 H Glucose 157 H 119 H Calcium 9.0 8.3 L Liver Function 12/01/24 12/02/24 Range/Units 19:23 06:22 Total Bilirubin 0.8 0.8 (0.2-1.3) mg/dL AST 38 23 (17-59) U/L ALT 19 14 (6-50) U/L Alkaline Phosphatase 121 104 (38-126) U/L Albumin 3.2 L 2.4 L (3.5-5.1) g/dL Urine 12/01/24 Range/Units 19:43 Urine Color Yellow (Yellow) Urine Appearance Clear (Clear) Urine pH 5.0 (5.0-9.0) Ur Specific [place] 1.012 (1.001-1.035) Urine Protein Trace (Negative) mg/dL Urine Glucose (UA) Negative (Negative) mg/dL
[2024-12-02 11:20] LABS: Influenza A QL RT-PCR Negative (Negative); Influenza B QL RT-PCR Negative (Negative); RSV RNA, RT-PCR Negative (Negative); SARS-CoV-2 RNA PCR Negative (Negative)
[2024-12-02 20:21] LABS: Hematocrit 22.2 % (42.0-52.0); Hemoglobin 7.0 g/dL (14.0-18.0)
[2024-12-02] MEDS: DOXAZOSIN MESYLATE 4 MG TABLET PO (21:18)
[2024-12-03] VITALS (14 sets, daily range): BP systolic 147–158; BP diastolic 58–72; PULSE 78–103; RESP 16–18; TEMP 36.5–36.9; O2SAT 98–100
[2024-12-03] MEDS: MORPHINE SULFATE (*CRX) 15 MG TAB IR PO ×2 (02:53→15:39)
[2024-12-03 03:57] LABS: IFOB Positive Control Positive; Immunochemical Fecal Occult Bl Negative (N)
[2024-12-03 04:15] LABS: Hematocrit 22.1 % (42.0-52.0); Hemoglobin 7.0 g/dL (14.0-18.0); Immature Granulocyte Percent A 2.9 % (0-0.5); Lymphocytes Absolute Auto 2.32 K/mm3 (0.9-3.2); Mean Corpuscular HGB Conc 31.7 g/dl (32-36); Mean Corpuscular Hemoglobin 28.6 pg (26-34); Mean Corpuscular Volume 90.2 fl (80-100); Nucleated Red Blood Cells Absolute Auto 0.000 K/mm3 (0.0-0.012); Nucleated Red Blood Cells Perc 0.0 % (0.0-0.2); Platelet Count Result 423 k/mm3 (150-375); Red Blood Count 2.45 M/mm3 (4.6-6.20); White Blood Count 10.7 K/mm3 (4.5-10.0)
[2024-12-03 04:36] LABS: Alanine Aminotransferase 23 U/L (6-50); Albumin Level 2.7 g/dL (3.5-5.1); Alkaline Phosphatase 110 U/L (38-126); Anion Gap 9 mmol/L (4-12); Aspartate Amino Transferase 48 U/L (17-59); Bilirubin,Total 0.6 mg/dL (0.2-1.3); Blood Urea Nitrogen 45 mg/dL (9-20); Calcium 8.7 mg/dL (8.4-10.2); Carbon Dioxide 17 mmol/L (22-30); Chloride 109 mmol/L (98-107); Estimated CRCL calculation 23 ml/min; Estimated Glomerular Filt Rate 33; Glucose 131 mg/dL (65-110); Magnesium 1.9 mg/dL (1.6-2.3); Potassium 3.6 mmol/L (3.4-5.0); Sodium 135 mmol/L (137-145); Total Protein 6.2 g/dL (6.3-8.2)
[2024-12-03] MEDS: ACETAMINOPHEN 325 MG TABLET 650 MG PO ×3 (05:18→20:56)
--- NOTE | 2024-12-03 08:48 | PM.IMPN ---
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 F on admission. He received large volume fluid resuscitation, he now has hyperchloremia acidosis, will discontinue normal saline. He does not have hypotension. No longer with sinus tachycardia. Do not see an infectious etiology for fever. However will carry through with MRCP. Gastroenterology consultation. Continue cefepime and vancomycin for now, follow-up urine and blood cultures. Will order a quad viral screen. Will check haptoglobin, LDH, reticulocyte count. The patient had prednisone 40 mg p.o. q.day on his home med list and those have been continued. Patient reports he has not taken this for many weeks he was given it during a previous ER visit but does not know why and thinks he presented there for pain. And, he is a very poor historian. On admission, hypotension and fever could explain adrenal insufficiency however that is unlikely since he was not taking prednisone for many weeks now and reportedly only took it for 1 week. Also, hemoglobin of 5.6 would more accurately explain his hypotension. Also, he has not had any further fever or any other lab indications of adrenal insufficiency. Continue to monitor for signs of adrenal insufficiency. He apparently was taken Protonix during his course of prednisone however that does not completely preclude peptic ulcer disease. Will check a stool occult. Patient denies any dark stool or bright red blood per rectum. Anemia, status post 1 unit PRBC, his hemoglobin has improved to 7.0 grams/deciliter. Will recheck again in another 4 hours. 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 Follow-up with Gastroenterology. 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 Patient wishes to be full code. SCDs. Accu-Cheks a.c. HS with low-dose insulin sliding scale. Ambulate with assistance, fall precautions. He resides at assisted living. Subjective Date/time seen: 12/03/24 08:48 Interval history: Discussed with Radiology for second read. Reports possible hematoma vs abscess vs wall off necrosis Review of Systems Review of Systems: As reviewed above in HPI All systems reviewed & are unremarkable except as noted in HPI and below (Subjective) Exam Narrative: GENERAL: Ill-appearing, tachycardic, febrile HEAD: Normocephalic EYES: Pupils equal and reactive ENT: Nares clear, no rhinorrhea or epistaxis. Mucous membranes moist. NECK: Supple. CHEST: Clear to auscultation, no respiratory distress or tachypnea HEART: [Regular rate and rhythm]. No murmur heard. [Normal peripheral pulses.] ABDOMEN: [Soft, nondistended], tender to palpation, [No rigidity or guarding] EXTREMITIES: Normal range of motion. No edema Pain reproduced with any range of motion of his extremities SKIN: Warm, dry, no rash. NEURO: Able to move his extremities, alert oriented x1, confused and repeats answers to questions, slow to respond to questioning, no facial asymmetry slurring of his speech Const: General: comfortable and no acute distress HENMT: Mouth: Yes moist mucous membranes Eyes: Pupils: Equal, round and reactive pupils present Neck: Neck: supple Resp: Effort & Inspection: normal respiratory effort Auscultation: clear to auscultation bilaterally Cardio: Rate: regular rate Rhythm: regular rhythm GI: Inspection: non-distended Neuro: Cranial nerves: Yes Equal, round and reactive pupils present Extrem: General: no edema Other: 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, no erythema, no fluctuance Objective Data Vital Signs Vital Signs: Vital Signs - 24 hr 12/02/24 10:00 12/02/24 12:00 12/02/24 12:00 Temperature 98.8 F Pulse Rate 72 98 93 Respiratory Rate 18 Blood Pressure 157/66 H Pulse Oximetry 98 Oxygen Delivery Fraction of Inspired Oxygen 12/02/24 14:00 12/02/24 15:41 12/02/24 16:00 Temperature 98.5 F Pulse Rate 89 87 90 Respiratory Rate 12 Blood Pressure 151/78 H Pulse Oximetry 100 Oxygen Delivery Fraction of Inspired Oxygen 12/02/24 18:00 12/02/24 20:00 12/02/24 20:00 Temperature 97.8 F Pulse Rate 91 90 89 Respiratory Rate 20 Blood Pressure 144/65 H Pulse Oximetry 100 Oxygen Delivery Fraction of Inspired Oxygen 12/02/24 20:30 12/02/24 22:00 12/02/24 23:42 Temperature 98.8 F Pulse Rate 85 81 83 Respiratory Rate 20 16 Blood Pressure 146/58 H Pulse Oximetry 91 98 Oxygen Delivery Room Air Fraction of Inspired Oxygen 21 12/03/24 00:00 12/03/24 02:00 12/03/24 04:00 Temperature 98.1 F Pulse Rate 78 91 88 Respiratory Rate 16 Blood Pressure 158/64 H Pulse Oximetry 98 Oxygen Delivery Fraction of Inspired Oxygen 12/03/24 04:00 12/03/24 06:00 12/03/24 07:45 Temperature 98.0 F Pulse Rate 84 81 95 Respiratory Rate 16 Blood Pressure 158/71 H Pulse Oximetry 100 Oxygen Delivery Fraction of Inspired Oxygen Intake/Output Intake/Output: Intake & Output 11/30/24 12/01/24 12/02/24 12/03/24 23:59 23:59 23:59 23:59 Intake Total 3250 2502.5 236 Output Total 1600 350 Balance 3250 902.5 -114 Meds/Results Medications: Active Medications Generic Name Dose Route Start Last Admin Trade Name Freq PRN Reason Stop Dose Admin Acetaminophen 650 mg 12/01/24 22:35 12/03/24 05:18 Acetaminophen 325 Mg Tablet PO 650 mg Q4H PRN Administration Mild Pain (1-3) or Fever Dextrose 12.5 gm 12/02/24 09:48 Dextrose 50% 25 Gm/50 Ml Syringe IV PUSH PRN PRN Hypoglycemia Protocol Doxazosin Mesylate 4 mg 12/02/24 21:00 12/02/24 21:18 Doxazosin Mesylate 4 Mg Tablet PO 4 mg QHS VU Administration Finasteride 5 mg 12/02/24 09:00 12/02/24 10:46 Finasteride 5 Mg Tablet PO 5 mg DAILY VU Administration Fluticasone Propionate 2 spray 12/02/24 03:58 Fluticasone Propionate 0.05% Na Spr 16 Gm Btl (*Bkc) NASAL DAILY PRN allergy symptoms Glucose 15 gm 12/02/24 09:48 Glucose Oral Gel 15 Gm Of Glucse In 37.5 Gm Tube PO PRN PRN Hypoglycemia Protocol Cefepime HCl 1 gm/ Sodium 50 mls @ 100 mls/hr 12/02/24 08:00 12/02/24 21:50 Chloride IVPB Infused Q12H VU Infusion Dextrose 1,000 mls @ 100 mls/hr 12/02/24 09:48 Dextrose 5% 1,000 Ml IVPB PRN PRN Hypoglycemia Protocol Insulin Aspart 2 - 5 units 12/02/24 12:00 12/02/24 18:13 Insulin Aspart (*Bkc) 100 Units/Ml SUB-Q Not Given TIDWM VU Protocol Insulin Aspart 1 - 2 units 12/02/24 21:00 12/02/24 21:11 Insulin Aspart (*Bkc) 100 Units/Ml SUB-Q Not Given HS VU Protocol Morphine Sulfate 15 mg 12/02/24 09:47 12/03/24 02:53 Morphine Sulfate (*Crx) 15 Mg Tab Ir PO 15 mg Q8H PRN Administration SEVERE PAIN Ondansetron HCl 4 mg 12/01/24 22:35 Ondansetron Inj 4 Mg/2 Ml Vial IV PUSH Q4H PRN Nausea Pantoprazole Sodium 40 mg 12/02/24 09:50 12/02/24 10:48 Pantoprazole 40 Mg Tablet PO 40 mg QAM VU Administration Vancomycin HCl 1 each 12/01/24 21:46 Vancomycin For Acute Kidney Injury IVPB PRN PRN Vancomycin Protocol Radiology Results: ITS Impressions Chest X-Ray 12/01/24 21:09 IMPRESSION: No acute cardiopulmonary process. Head CT 12/01/24 21:34 IMPRESSION: No acute intracranial process. CT findings that may represent acute right maxillary sinusitis in the appropriate clinical context. Chest/Abdomen/Pelvis CT 12/01/24 21:35 IMPRESSION: No acute finding in the chest. Mild cardiomegaly. CT findings suggestive of pulmonary hypertension. Persistent soft tissue density material and stranding in the gallbladder fossa, likely representing resolving postinfectious/postsurgical change. 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 Recommend MRI of the abdomen without contrast for further evaluation. Labs Labs: Laboratory Results - last 24 hr 12/02/24 12/02/24 12/02/24 09:57 10:12 11:13 WBC RBC Hgb 7.6 L Hct 24.5 L MCV MCH MCHC RDW Plt Count MPV Immature Gran % (Auto) Neut % (Auto) Lymph % (Auto) [place] % (Auto) Eos % (Auto) Baso % (Auto) Lymph # (Auto) [place] # (Auto) Eos # (Auto) Baso # (Auto) Abs Immat Gran (auto) Absolute Neuts (auto) Absolute Nucleated RBC Nucleated RBC % Absolute Retic 0.04 Percent Retic 1.52 Immature Retic Fraction 21.6 H Retic Hgb Content 21.3 L Sodium Potassium Chloride Carbon Dioxide Anion Gap BUN Creatinine Estim Creat Clear Calc Estimated GFR Glucose POC Capillary Glucose 138 H Calcium Magnesium Total Bilirubin AST ALT Alkaline Phosphatase Lactate Dehydrogenase 252 H Total Protein Albumin Stl Occult Blood (IFOB) Random Vancomycin Influenza A (RT-PCR) Negative Influenza B (RT-PCR) Negative RSV (RT-PCR) Negative SARS-CoV-2 RNA (RT-PCR) Negative 12/02/24 12/02/24 12/02/24 16:04 20:02 20:04 WBC RBC Hgb 7.0 L Hct 22.2 L MCV MCH MCHC RDW Plt Count MPV Immature Gran % (Auto) Neut % (Auto) Lymph % (Auto) [place] % (Auto) Eos % (Auto) Baso % (Auto) Lymph # (Auto) [place] # (Auto) Eos # (Auto) Baso # (Auto) Abs Immat Gran (auto) Absolute Neuts (auto) Absolute Nucleated RBC Nucleated RBC % Absolute Retic Percent Retic Immature Retic Fraction Retic Hgb Content Sodium Potassium Chloride Carbon Dioxide Anion Gap BUN Creatinine Estim Creat Clear Calc Estimated GFR Glucose POC Capillary Glucose 146 H 147 H Calcium Magnesium Total Bilirubin AST ALT Alkaline Phosphatase Lactate Dehydrogenase Total Protein Albumin Stl Occult Blood (IFOB) Random Vancomycin 10.7 Influenza A (RT-PCR) Influenza B (RT-PCR) RSV (RT-PCR) SARS-CoV-2 RNA (RT-PCR) 12/03/24 12/03/24 12/03/24 02:58 03:46 07:16 WBC 10.7 H RBC 2.45 L Hgb 7.0 L Hct 22.1 L MCV 90.2 D MCH 28.6 MCHC 31.7 L RDW 16.3 H Plt Count 423 H MPV 8.8 Immature Gran % (Auto) 2.9 H Neut % (Auto) 59.4 Lymph % (Auto) 21.8 [place] % (Auto) 13.7 H Eos % (Auto) 1.9 Baso % (Auto) 0.3 Lymph # (Auto) 2.32 [place] # (Auto) 1.5 H Eos # (Auto) 0.2 Baso # (Auto) 0.0 Abs Immat Gran (auto) 0.31 H Absolute Neuts (auto) 6.3 Absolute Nucleated RBC 0.000 Nucleated RBC % 0.0 Absolute Retic Percent Retic Immature Retic Fraction Retic Hgb Content Sodium 135 L Potassium 3.6 Chloride 109 H Carbon Dioxide 17 L Anion Gap 9 BUN 45 H Creatinine 1.95 H Estim Creat Clear Calc 23 Estimated GFR 33 L Glucose 131 H POC Capillary Glucose 125 H Calcium 8.7 Magnesium 1.9 Total Bilirubin 0.6 AST 48 ALT 23 Alkaline Phosphatase 110 Lactate Dehydrogenase Total Protein 6.2 L Albumin 2.7 L Stl Occult Blood (IFOB) Negative Random Vancomycin Influenza A (RT-PCR) Influenza B (RT-PCR) RSV (RT-PCR) SARS-CoV-2 RNA (RT-PCR) Hospitalist MIPS Advance Care Plan I have confirmed that the patient's Advanced Care Plan is present, code status is documented, or surrogate decision maker is listed in patient medical record.: Yes Medication Reconciliation I have utilized all available resources to obtain, update and review the patients current medications (includes all prescriptions, OTC, herbals, cannabis, and nutritional supplements).: Yes
[2024-12-03] MEDS: PANTOPRAZOLE 40 MG TABLET PO (09:50)
[2024-12-03] MEDS: FINASTERIDE 5 MG TABLET PO (09:50)
[2024-12-03] MEDS: CEFEPIME 1 GM in SODIUM CHLORIDE 0.9% IV 50 ML 100 ML IVPB ×2 (09:51→20:39)
[2024-12-03] MEDS: VANCOMYCIN 1,250 MG/NS 250 ML 1,250 MG/250 ML BAG 166.67 MG IVPB (11:19)
--- NOTE | 2024-12-03 12:40 | WNDPHOTO ---
PHOTO ONLY - See Nursing Notes and/ or assessments for documentation.
[2024-12-03 13:19] LABS: Hematocrit 22.5 % (42.0-52.0); Hemoglobin 7.2 g/dL (14.0-18.0)
--- NOTE | 2024-12-03 16:41 | WPDGIPROGNO ---
Progress Note: A&P Assessment and Plan (1) Mass of head of pancreas: Code(s): K86.89 - Other specified diseases of pancreas Status: Acute Assessment and Plan: The patient's condition remains stable, with their hemoglobin holding steady and a full diet being well-tolerated. 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 This is further complicated by the patient being on both an anticoagulant and Plavix. 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 The plan is to discharge the patient home without blood thinners as soon as we have a definitive date for the endoscopic ultrasound. Subjective Date/time seen: 12/03/24 16:41 Objective Data Vital Signs Vital Signs: Vital Signs - 24 hr 12/02/24 18:00 12/02/24 20:00 12/02/24 20:00 Temperature 97.8 F Pulse Rate 91 90 89 Respiratory Rate 20 Blood Pressure 144/65 H Pulse Oximetry 100 Oxygen Delivery Fraction of Inspired Oxygen 12/02/24 20:30 12/02/24 22:00 12/02/24 23:42 Temperature 98.8 F Pulse Rate 85 81 83 Respiratory Rate 20 16 Blood Pressure 146/58 H Pulse Oximetry 91 98 Oxygen Delivery Room Air Fraction of Inspired Oxygen 21 12/03/24 00:00 12/03/24 02:00 12/03/24 04:00 Temperature 98.1 F Pulse Rate 78 91 88 Respiratory Rate 16 Blood Pressure 158/64 H Pulse Oximetry 98 Oxygen Delivery Fraction of Inspired Oxygen 12/03/24 04:00 12/03/24 06:00 12/03/24 07:45 Temperature 98.0 F Pulse Rate 84 81 95 Respiratory Rate 16 Blood Pressure 158/71 H Pulse Oximetry 100 Oxygen Delivery Fraction of Inspired Oxygen 12/03/24 08:00 12/03/24 10:00 12/03/24 11:42 Temperature 97.7 F Pulse Rate 94 97 96 Respiratory Rate 16 Blood Pressure 147/58 H Pulse Oximetry 100 Oxygen Delivery Fraction of Inspired Oxygen 12/03/24 12:00 12/03/24 14:00 12/03/24 15:59 Temperature 98.2 F Pulse Rate 103 H 99 94 Respiratory Rate 18 Blood Pressure 154/63 H Pulse Oximetry 99 Oxygen Delivery Fraction of Inspired Oxygen 12/03/24 16:00 Temperature Pulse Rate 94 Respiratory Rate Blood Pressure Pulse Oximetry Oxygen Delivery Fraction of Inspired Oxygen Intake/Output Intake/Output: Intake & Output 11/30/24 12/01/24 12/02/24 12/03/24 23:59 23:59 23:59 23:59 Intake Total 3250 2502.5 602 Output Total 1600 600 Balance 3250 902.5 2 Meds/Results Medications: Active Medications Generic Name Dose Route Start Last Admin Trade Name Freq PRN Reason Stop Dose Admin Acetaminophen 650 mg 12/01/24 22:35 12/03/24 09:56 Acetaminophen 325 Mg Tablet PO 650 mg Q4H PRN Administration Mild Pain (1-3) or Fever Dextrose 12.5 gm 12/02/24 09:48 Dextrose 50% 25 Gm/50 Ml Syringe IV PUSH PRN PRN Hypoglycemia Protocol Doxazosin Mesylate 4 mg 12/02/24 21:00 12/02/24 21:18 Doxazosin Mesylate 4 Mg Tablet PO 4 mg QHS VU Administration Finasteride 5 mg 12/02/24 09:00 12/03/24 09:50 Finasteride 5 Mg Tablet PO 5 mg DAILY VU Administration Fluticasone Propionate 2 spray 12/02/24 03:58 Fluticasone Propionate 0.05% Na Spr 16 Gm Btl (*Bkc) NASAL DAILY PRN allergy symptoms Glucose 15 gm 12/02/24 09:48 Glucose Oral Gel 15 Gm Of Glucse In 37.5 Gm Tube PO PRN PRN Hypoglycemia Protocol Cefepime HCl 1 gm/ Sodium 50 mls @ 100 mls/hr 12/02/24 08:00 12/03/24 09:51 Chloride IVPB 100 mls/hr Q12H VU Administration Dextrose 1,000 mls @ 100 mls/hr 12/02/24 09:48 Dextrose 5% 1,000 Ml IVPB PRN PRN Hypoglycemia Protocol Insulin Aspart 2 - 5 units 12/02/24 12:00 12/03/24 11:19 Insulin Aspart (*Bkc) 100 Units/Ml SUB-Q Not Given TIDWM VU Protocol Insulin Aspart 1 - 2 units 12/02/24 21:00 12/02/24 21:11 Insulin Aspart (*Bkc) 100 Units/Ml SUB-Q Not Given [facility] Protocol Morphine Sulfate 15 mg 12/02/24 09:47 12/03/24 15:39 Morphine Sulfate (*Crx) 15 Mg Tab Ir PO 15 mg Q8H PRN Administration SEVERE PAIN Ondansetron HCl 4 mg 12/01/24 22:35 Ondansetron Inj 4 Mg/2 Ml Vial IV PUSH Q4H PRN Nausea Pantoprazole Sodium 40 mg 12/02/24 09:50 12/03/24 09:50 Pantoprazole 40 Mg Tablet PO 40 mg QAM VU Administration Vancomycin HCl 1 each 12/01/24 21:46 Vancomycin For Acute Kidney Injury IVPB PRN PRN Vancomycin Protocol Radiology Results: ITS Impressions Chest X-Ray 12/01/24 21:09 IMPRESSION: No acute cardiopulmonary process. Head CT 12/01/24 21:34 IMPRESSION: No acute intracranial process. CT findings that may represent acute right maxillary sinusitis in the appropriate clinical context. Chest/Abdomen/Pelvis CT 12/01/24 21:35 IMPRESSION: No acute finding in the chest. Mild cardiomegaly. CT findings suggestive of pulmonary hypertension. Persistent soft tissue density material and stranding in the gallbladder fossa, likely representing resolving postinfectious/postsurgical change. 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 Recommend MRI of the abdomen without contrast for further evaluation. Labs Labs: Laboratory Results - last 24 hr 12/02/24 12/02/24 12/03/24 20:02 20:04 02:58 WBC RBC Hgb 7.0 L Hct 22.2 L MCV MCH MCHC RDW Plt Count MPV Immature Gran % (Auto) Neut % (Auto) Lymph % (Auto) [place] % (Auto) Eos % (Auto) Baso % (Auto) Lymph # (Auto) [place] # (Auto) Eos # (Auto) Baso # (Auto) Abs Immat Gran (auto) Absolute Neuts (auto) Absolute Nucleated RBC Nucleated RBC % Sodium Potassium Chloride Carbon Dioxide Anion Gap BUN Creatinine Estim Creat Clear Calc Estimated GFR Glucose POC Capillary Glucose 147 H Calcium Magnesium Total Bilirubin AST ALT Alkaline Phosphatase Total Protein Albumin Stl Occult Blood (IFOB) Negative Random Vancomycin 10.7 12/03/24 12/03/24 12/03/24 03:46 07:16 10:59 WBC 10.7 H RBC 2.45 L Hgb 7.0 L Hct 22.1 L MCV 90.2 D MCH 28.6 MCHC 31.7 L RDW 16.3 H Plt Count 423 H MPV 8.8 Immature Gran % (Auto) 2.9 H Neut % (Auto) 59.4 Lymph % (Auto) 21.8 [place] % (Auto) 13.7 H Eos % (Auto) 1.9 Baso % (Auto) 0.3 Lymph # (Auto) 2.32 [place] # (Auto) 1.5 H Eos # (Auto) 0.2 Baso # (Auto) 0.0 Abs Immat Gran (auto) 0.31 H Absolute Neuts (auto) 6.3 Absolute Nucleated RBC 0.000 Nucleated RBC % 0.0 Sodium 135 L Potassium 3.6 Chloride 109 H Carbon Dioxide 17 L Anion Gap 9 BUN 45 H Creatinine 1.95 H Estim Creat Clear Calc 23 Estimated GFR 33 L Glucose 131 H POC Capillary Glucose 125 H 167 H Calcium 8.7 Magnesium 1.9 Total Bilirubin 0.6 AST 48 ALT 23 Alkaline Phosphatase 110 Total Protein 6.2 L Albumin 2.7 L Stl Occult Blood (IFOB) Random Vancomycin 12/03/24 12:58 WBC RBC Hgb 7.2 L Hct 22.5 L MCV MCH MCHC RDW Plt Count MPV Immature Gran % (Auto) Neut % (Auto) Lymph % (Auto) [place] % (Auto) Eos % (Auto) Baso % (Auto) Lymph # (Auto) [place] # (Auto) Eos # (Auto) Baso # (Auto) Abs Immat Gran (auto) Absolute Neuts (auto) Absolute Nucleated RBC Nucleated RBC % Sodium Potassium Chloride Carbon Dioxide Anion Gap BUN Creatinine Estim Creat Clear Calc Estimated GFR Glucose POC Capillary Glucose Calcium Magnesium Total Bilirubin AST ALT Alkaline Phosphatase Total Protein Albumin Stl Occult Blood (IFOB) Random Vancomycin
[2024-12-03] MEDS: DOXAZOSIN MESYLATE 4 MG TABLET PO (20:56)
[2024-12-04] VITALS (9 sets, daily range): BP systolic 151–168; BP diastolic 66–80; PULSE 79–105; RESP 16–20; TEMP 36.7–37.1; O2SAT 99–100
[2024-12-04] MEDS: MORPHINE SULFATE (*CRX) 15 MG TAB IR PO ×3 (00:16→18:30)
[2024-12-04 04:33] LABS: Hematocrit 23.3 % (42.0-52.0); Hemoglobin 7.0 g/dL (14.0-18.0); Mean Corpuscular HGB Conc 30.0 g/dl (32-36); Mean Corpuscular Hemoglobin 27.3 pg (26-34); Mean Corpuscular Volume 91.0 fl (80-100); Platelet Count Result 427 k/mm3 (150-375); Red Blood Count 2.56 M/mm3 (4.6-6.20); White Blood Count 11.3 K/mm3 (4.5-10.0)
[2024-12-04] MEDS: ACETAMINOPHEN 325 MG TABLET 650 MG PO ×3 (04:51→21:28)
[2024-12-04 04:57] LABS: Alanine Aminotransferase 42 U/L (6-50); Albumin Level 2.6 g/dL (3.5-5.1); Alkaline Phosphatase 105 U/L (38-126); Anion Gap 3 mmol/L (4-12); Aspartate Amino Transferase 81 U/L (17-59); Bilirubin,Total 0.4 mg/dL (0.2-1.3); Blood Urea Nitrogen 38 mg/dL (9-20); Calcium 8.7 mg/dL (8.4-10.2); Carbon Dioxide 20 mmol/L (22-30); Chloride 110 mmol/L (98-107); Estimated CRCL calculation 30 ml/min; Estimated Glomerular Filt Rate 39; Glucose 130 mg/dL (65-110); Potassium 4.0 mmol/L (3.4-5.0); Sodium 133 mmol/L (137-145); Total Protein 6.2 g/dL (6.3-8.2)
[2024-12-04] MEDS: CEFEPIME 1 GM in SODIUM CHLORIDE 0.9% IV 50 ML 100 ML IVPB (08:36)
[2024-12-04] MEDS: FINASTERIDE 5 MG TABLET PO (08:38)
[2024-12-04] MEDS: PANTOPRAZOLE 40 MG TABLET PO (08:38)
--- NOTE | 2024-12-04 11:12 | P.PNIM_ITS ---
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 Status: Acute Assessment and Plan: Hold Eliquis Peroneal vein DVT (2) Type 2 diabetes mellitus with hyperglycemia, without long-term current use of insulin: Code(s): E11.65 - Type 2 diabetes mellitus with hyperglycemia Status: Chronic Assessment and Plan: SSI Hypoglycemia protocol (3) Acute anemia: Code(s): D64.9 - Anemia, unspecified Status: Acute Assessment and Plan: Possible delayed intramural duodenal bleed following the relatively recent ERCP Discussed with radiologist who agrees the possibility of hematoma 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 Pending follow-up appointment at [facility]. Review of Systems Review of Systems: As reviewed above in HPI All systems reviewed & are unremarkable except as noted in HPI and below (Subjective) Exam Narrative: GENERAL: Ill-appearing, tachycardic, febrile HEAD: Normocephalic EYES: Pupils equal and reactive ENT: Nares clear, no rhinorrhea or epistaxis. Mucous membranes moist. NECK: Supple. CHEST: Clear to auscultation, no respiratory distress or tachypnea HEART: [Regular rate and rhythm]. No murmur heard. [Normal peripheral pulses.] ABDOMEN: [Soft, nondistended], tender to palpation, [No rigidity or guarding] EXTREMITIES: Normal range of motion. No edema Pain reproduced with any range of motion of his extremities SKIN: Warm, dry, no rash. NEURO: Able to move his extremities, alert oriented x1, confused and repeats answers to questions, slow to respond to questioning, no facial asymmetry slurring of his speech Const: General: comfortable and no acute distress HENMT: Mouth: Yes moist mucous membranes Eyes: Pupils: Equal, round and reactive pupils present Neck: Neck: supple Resp: Effort & Inspection: normal respiratory effort Auscultation: clear to auscultation bilaterally Cardio: Rate: regular rate Rhythm: regular rhythm GI: Inspection: non-distended Neuro: Cranial nerves: Yes Equal, round and reactive pupils present Extrem: General: no edema Other: 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, no erythema, no fluctuance Objective Data Vital Signs Vital Signs: Vital Signs - 24 hr 12/03/24 11:42 12/03/24 12:00 12/03/24 14:00 Temperature 97.7 F Pulse Rate 96 103 H 99 Respiratory Rate 16 Blood Pressure 147/58 H Pulse Oximetry 100 12/03/24 15:59 12/03/24 16:00 12/03/24 20:00 Temperature 98.2 F Pulse Rate 94 94 86 Respiratory Rate 18 Blood Pressure 154/63 H Pulse Oximetry 99 12/03/24 23:59 12/04/24 00:00 12/04/24 04:00 Temperature 98.4 F Pulse Rate 95 95 79 Respiratory Rate 16 Blood Pressure 152/72 H Pulse Oximetry 98 12/04/24 07:50 Temperature 98.1 F Pulse Rate 91 Respiratory Rate 16 Blood Pressure 168/66 H Pulse Oximetry 100 Intake/Output Intake/Output: Intake & Output 12/01/24 12/02/24 12/03/24 12/04/24 23:59 23:59 23:59 23:59 Intake Total 3250 2502.5 1277 240 Output Total 1600 1200 500 Balance 3250 902.5 77 -260 Meds/Results Medications: Active Medications Generic Name Dose Route Start Last Admin Trade Name Freq PRN Reason Stop Dose Admin Acetaminophen 650 mg 12/01/24 22:35 12/04/24 04:51 Acetaminophen 325 Mg Tablet PO 650 mg Q4H PRN Administration Mild Pain (1-3) or Fever Dextrose 12.5 gm 12/02/24 09:48 Dextrose 50% 25 Gm/50 Ml Syringe IV PUSH PRN PRN Hypoglycemia Protocol Doxazosin Mesylate 4 mg 12/02/24 21:00 12/03/24 20:56 Doxazosin Mesylate 4 Mg Tablet PO 4 mg QHS VU Administration Finasteride 5 mg 12/02/24 09:00 12/04/24 08:38 Finasteride 5 Mg Tablet PO 5 mg DAILY VU Administration Fluticasone Propionate 2 spray 12/02/24 03:58 Fluticasone Propionate 0.05% Na Spr 16 Gm Btl (*Bkc) NASAL DAILY PRN allergy symptoms Glucose 15 gm 12/02/24 09:48 Glucose Oral Gel 15 Gm Of Glucse In 37.5 Gm Tube PO PRN PRN Hypoglycemia Protocol Cefepime HCl 1 gm/ Sodium 50 mls @ 100 mls/hr 12/02/24 08:00 12/04/24 08:36 Chloride IVPB 100 mls/hr Q12H VU Administration Dextrose 1,000 mls @ 100 mls/hr 12/02/24 09:48 Dextrose 5% 1,000 Ml IVPB PRN PRN Hypoglycemia Protocol Insulin Aspart 2 - 5 units 12/02/24 12:00 12/04/24 08:36 Insulin Aspart (*Bkc) 100 Units/Ml SUB-Q Not Given TIDWM VU Protocol Insulin Aspart 1 - 2 units 12/02/24 21:00 12/03/24 20:36 Insulin Aspart (*Bkc) 100 Units/Ml SUB-Q Not Given HS VU Protocol Morphine Sulfate 15 mg 12/02/24 09:47 12/04/24 08:37 Morphine Sulfate (*Crx) 15 Mg Tab Ir PO 15 mg Q8H PRN Administration SEVERE PAIN Ondansetron HCl 4 mg 12/01/24 22:35 Ondansetron Inj 4 Mg/2 Ml Vial IV PUSH Q4H PRN Nausea Pantoprazole Sodium 40 mg 12/02/24 09:50 12/04/24 08:38 Pantoprazole 40 Mg Tablet PO 40 mg QAM VU Administration Vancomycin HCl 1 each 12/01/24 21:46 Vancomycin For Acute Kidney Injury IVPB PRN PRN Vancomycin Protocol Radiology Results: ITS Impressions Chest X-Ray 12/01/24 21:09 IMPRESSION: No acute cardiopulmonary process. Head CT 12/01/24 21:34 IMPRESSION: No acute intracranial process. CT findings that may represent acute right maxillary sinusitis in the appropriate clinical context. Chest/Abdomen/Pelvis CT 12/01/24 21:35 IMPRESSION: No acute finding in the chest. Mild cardiomegaly. CT findings suggestive of pulmonary hypertension. Persistent soft tissue density material and stranding in the gallbladder fossa, likely representing resolving postinfectious/postsurgical change. 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 Recommend MRI of the abdomen without contrast for further evaluation. Labs Labs: Laboratory Results - last 24 hr 12/02/24 12/03/24 12/03/24 10:12 12:58 16:05 WBC RBC Hgb 7.2 L Hct 22.5 L MCV MCH MCHC RDW Plt Count MPV Haptoglobin 277 Sodium Potassium Chloride Carbon Dioxide Anion Gap BUN Creatinine Estim Creat Clear Calc Estimated GFR Glucose POC Capillary Glucose 158 H Calcium Total Bilirubin AST ALT Alkaline Phosphatase Total Protein Albumin Vancomycin Trough 12/03/24 12/04/24 12/04/24 20:28 04:13 07:33 WBC 11.3 H RBC 2.56 L Hgb 7.0 L Hct 23.3 L MCV 91.0 MCH 27.3 MCHC 30.0 L RDW 16.4 H Plt Count 427 H MPV 8.6 Haptoglobin Sodium 133 L Potassium 4.0 Chloride 110 H Carbon Dioxide 20 L Anion Gap 3 L BUN 38 H Creatinine 1.69 H Estim Creat Clear Calc 30 Estimated GFR 39 L Glucose 130 H POC Capillary Glucose 144 H 141 H Calcium 8.7 Total Bilirubin 0.4 AST 81 H ALT 42 Alkaline Phosphatase 105 Total Protein 6.2 L Albumin 2.6 L Vancomycin Trough 12/04/24 10:17 WBC RBC Hgb Hct MCV MCH MCHC RDW Plt Count MPV Haptoglobin Sodium Potassium Chloride Carbon Dioxide Anion Gap BUN Creatinine Estim Creat Clear Calc Estimated GFR Glucose POC Capillary Glucose Calcium Total Bilirubin AST ALT Alkaline Phosphatase Total Protein Albumin Vancomycin Trough 12.6 Hospitalist MIPS Advance Care Plan I have confirmed that the patient's Advanced Care Plan is present, code status is documented, or surrogate decision maker is listed in patient medical record.: Yes Medication Reconciliation I have utilized all available resources to obtain, update and review the patients current medications (includes all prescriptions, OTC, herbals, cannabis, and nutritional supplements).: Yes
[2024-12-04 12:50] LABS: Hematocrit 25.0 % (42.0-52.0); Hemoglobin 7.6 g/dL (14.0-18.0)
[2024-12-04] MEDS: VANCOMYCIN 1,250 MG/NS 250 ML 1,250 MG/250 ML BAG 166.67 MG IVPB (13:49)
[2024-12-04] MEDS: DOXAZOSIN MESYLATE 4 MG TABLET PO (21:31)
[2024-12-05] VITALS (11 sets, daily range): BP systolic 157–189; BP diastolic 68–78; PULSE 78–96; RESP 14–18; TEMP 36.4–36.8; O2SAT 100
[2024-12-05] MEDS: ACETAMINOPHEN 325 MG TABLET 650 MG PO ×4 (03:28→18:54)
[2024-12-05] MEDS: MORPHINE SULFATE (*CRX) 15 MG TAB IR PO ×3 (06:01→22:04)
--- NOTE | 2024-12-05 07:05 | P.PNGI_ITS ---
Progress Note: A&P Assessment and Plan (1) Mass of head of pancreas: Code(s): K86.89 - Other specified diseases of pancreas Status: Acute Assessment and Plan: endoscopic ultrasound scheduled with Dr Boris Virgen at [facility] for 12/05 at 1 pm. Family and [facility] staff in contact with the patient. Plan - do not start any anticoagulation or anti aggregation after discharge - follow up with results of the EUS as an outpatient Subjective Date/time seen: 12/05/24 07:05 Objective Data Vital Signs Vital Signs: Vital Signs - 24 hr 12/04/24 07:50 12/04/24 08:00 12/04/24 10:00 Temperature 98.1 F Pulse Rate 91 92 93 Respiratory Rate 16 Blood Pressure 168/66 H Pulse Oximetry 100 Oxygen Delivery 12/04/24 12:56 12/04/24 16:00 12/04/24 16:00 Temperature 98.7 F Pulse Rate 92 105 H 98 Respiratory Rate 18 Blood Pressure 158/80 H Pulse Oximetry 100 Oxygen Delivery 12/04/24 20:00 12/04/24 20:00 12/04/24 20:42 Temperature 98.2 F Pulse Rate 87 93 Respiratory Rate 20 Blood Pressure 151/73 H Pulse Oximetry 99 Oxygen Delivery Room Air 12/05/24 00:00 12/05/24 03:26 12/05/24 04:00 Temperature 97.6 F Pulse Rate 78 86 89 Respiratory Rate 18 Blood Pressure 162/75 H Pulse Oximetry 100 Oxygen Delivery Intake/Output Intake/Output: Intake & Output 12/02/24 12/03/24 12/04/24 12/05/24 23:59 23:59 23:59 23:59 Intake Total 2502.5 1277 480 240 Output Total 1600 1200 1100 700 Balance 902.5 77 -620 -618 Meds/Results Medications: Active Medications Generic Name Dose Route Start Last Admin Trade Name Freq PRN Reason Stop Dose Admin Acetaminophen 650 mg 12/01/24 22:35 12/05/24 03:28 Acetaminophen 325 Mg Tablet PO 650 mg Q4H PRN Administration Mild Pain (1-3) or Fever Dextrose 12.5 gm 12/02/24 09:48 Dextrose 50% 25 Gm/50 Ml Syringe IV PUSH PRN PRN Hypoglycemia Protocol Doxazosin Mesylate 4 mg 12/02/24 21:00 12/04/24 21:31 Doxazosin Mesylate 4 Mg Tablet PO 4 mg QHS VU Administration Finasteride 5 mg 12/02/24 09:00 12/04/24 08:38 Finasteride 5 Mg Tablet PO 5 mg DAILY VU Administration Fluticasone Propionate 2 spray 12/02/24 03:58 Fluticasone Propionate 0.05% Na Spr 16 Gm Btl (*Bkc) NASAL DAILY PRN allergy symptoms Glucose 15 gm 12/02/24 09:48 Glucose Oral Gel 15 Gm Of Glucse In 37.5 Gm Tube PO PRN PRN Hypoglycemia Protocol Dextrose 1,000 mls @ 100 mls/hr 12/02/24 09:48 Dextrose 5% 1,000 Ml IVPB PRN PRN Hypoglycemia Protocol Morphine Sulfate 15 mg 12/02/24 09:47 12/05/24 06:01 Morphine Sulfate (*Crx) 15 Mg Tab Ir PO 15 mg Q8H PRN Administration SEVERE PAIN Ondansetron HCl 4 mg 12/01/24 22:35 Ondansetron Inj 4 Mg/2 Ml Vial IV PUSH Q4H PRN Nausea Pantoprazole Sodium 40 mg 12/02/24 09:50 12/04/24 08:38 Pantoprazole 40 Mg Tablet PO 40 mg QAM VU Administration Vancomycin HCl 1 each 12/01/24 21:46 Vancomycin For Acute Kidney Injury IVPB PRN PRN Vancomycin Protocol Radiology Results: ITS Impressions Chest X-Ray 12/01/24 21:09 IMPRESSION: No acute cardiopulmonary process. Head CT 12/01/24 21:34 IMPRESSION: No acute intracranial process. CT findings that may represent acute right maxillary sinusitis in the appropriate clinical context. Chest/Abdomen/Pelvis CT 12/01/24 21:35 IMPRESSION: No acute finding in the chest. Mild cardiomegaly. CT findings suggestive of pulmonary hypertension. Persistent soft tissue density material and stranding in the gallbladder fossa, likely representing resolving postinfectious/postsurgical change. 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 Recommend MRI of the abdomen without contrast for further evaluation. Labs Labs: Laboratory Results - last 24 hr 12/02/24 12/04/24 12/04/24 10:12 07:33 10:17 Hgb Hct Haptoglobin 277 POC Capillary Glucose 141 H Vancomycin Trough 12.6 08/12/25 12:43 Hgb 7.6 L Hct 25.0 L Haptoglobin POC Capillary Glucose Vancomycin Trough
[2024-12-05] MEDS: FINASTERIDE 5 MG TABLET PO (08:31)
[2024-12-05] MEDS: PANTOPRAZOLE 40 MG TABLET PO (08:31)
--- NOTE | 2024-12-05 14:23 | PM.IMPN ---
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 Status: Acute Assessment and Plan: Hold Eliquis Peroneal vein DVT (2) Type 2 diabetes mellitus with hyperglycemia, without long-term current use of insulin: Code(s): E11.65 - Type 2 diabetes mellitus with hyperglycemia Status: Chronic Assessment and Plan: SSI Hypoglycemia protocol (3) Acute anemia: Code(s): D64.9 - Anemia, unspecified Status: Acute Assessment and Plan: Possible delayed intramural duodenal bleed following the relatively recent ERCP Discussed with radiologist who agrees the possibility of hematoma 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 Pending outpatient endoscopic ultrasound at [facility] (4) Fever: Code(s): R50.9 - Fever, unspecified Status: Acute Assessment and Plan: likely reactive in nature remains afebrile no signs of infectious process Blood culture negative continue to monitor off antibiotics Discontinued cefepime Subjective Date/time seen: 12/05/24 14:23 Interval history: Pending BC.No acute events overnight Review of Systems Review of Systems: As reviewed above in HPI All systems reviewed & are unremarkable except as noted in HPI and below (Subjective) Exam Narrative: GENERAL: Ill-appearing, tachycardic, febrile HEAD: Normocephalic EYES: Pupils equal and reactive ENT: Nares clear, no rhinorrhea or epistaxis. Mucous membranes moist. NECK: Supple. CHEST: Clear to auscultation, no respiratory distress or tachypnea HEART: [Regular rate and rhythm]. No murmur heard. [Normal peripheral pulses.] ABDOMEN: [Soft, nondistended], tender to palpation, [No rigidity or guarding] EXTREMITIES: Normal range of motion. No edema Pain reproduced with any range of motion of his extremities SKIN: Warm, dry, no rash. NEURO: Able to move his extremities, alert oriented x1, confused and repeats answers to questions, slow to respond to questioning, no facial asymmetry slurring of his speech Const: General: comfortable and no acute distress HENMT: Mouth: Yes moist mucous membranes Eyes: Pupils: Equal, round and reactive pupils present Neck: Neck: supple Resp: Effort & Inspection: normal respiratory effort Auscultation: clear to auscultation bilaterally Cardio: Rate: regular rate Rhythm: regular rhythm GI: Inspection: non-distended Neuro: Cranial nerves: Yes Equal, round and reactive pupils present Extrem: General: no edema Other: 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, no erythema, no fluctuance Objective Data Vital Signs Vital Signs: Vital Signs - 24 hr 12/04/24 16:00 12/04/24 16:00 12/04/24 20:00 Temperature 98.7 F Pulse Rate 105 H 98 Respiratory Rate 18 Blood Pressure 158/80 H Pulse Oximetry 100 Oxygen Delivery Room Air 12/04/24 20:00 12/04/24 20:42 12/05/24 00:00 Temperature 98.2 F Pulse Rate 87 93 78 Respiratory Rate 20 Blood Pressure 151/73 H Pulse Oximetry 99 Oxygen Delivery 12/05/24 03:26 12/05/24 04:00 12/05/24 08:03 Temperature 97.6 F Pulse Rate 86 89 78 Respiratory Rate 18 Blood Pressure 162/75 H Pulse Oximetry 100 Oxygen Delivery 12/05/24 08:35 12/05/24 12:03 12/05/24 13:58 Temperature 98.2 F Pulse Rate 96 89 Respiratory Rate 18 14 Blood Pressure 157/72 H Pulse Oximetry 100 100 Oxygen Delivery Room Air Intake/Output Intake/Output: Intake & Output 12/02/24 12/03/24 12/04/24 12/05/24 23:59 23:59 23:59 23:59 Intake Total 2502.5 0558 382 1930 Output Total 1600 1200 1100 700 Balance 902.5 77 -426 620 Meds/Results Medications: Active Medications Generic Name Dose Route Start Last Admin Trade Name Freq PRN Reason Stop Dose Admin Acetaminophen 650 mg 12/01/24 22:35 12/05/24 12:05 Acetaminophen 325 Mg Tablet PO 650 mg Q4H PRN Administration Mild Pain (1-3) or Fever Dextrose 12.5 gm 12/02/24 09:48 Dextrose 50% 25 Gm/50 Ml Syringe IV PUSH PRN PRN Hypoglycemia Protocol Doxazosin Mesylate 4 mg 12/02/24 21:00 12/04/24 21:31 Doxazosin Mesylate 4 Mg Tablet PO 4 mg QHS VU Administration Finasteride 5 mg 12/02/24 09:00 12/05/24 08:31 Finasteride 5 Mg Tablet PO 5 mg DAILY VU Administration Fluticasone Propionate 2 spray 12/02/24 03:58 Fluticasone Propionate 0.05% Na Spr 16 Gm Btl (*Bkc) NASAL DAILY PRN allergy symptoms Glucose 15 gm 12/02/24 09:48 Glucose Oral Gel 15 Gm Of Glucse In 37.5 Gm Tube PO PRN PRN Hypoglycemia Protocol Dextrose 1,000 mls @ 100 mls/hr 12/02/24 09:48 Dextrose 5% 1,000 Ml IVPB PRN PRN Hypoglycemia Protocol Morphine Sulfate 15 mg 12/02/24 09:47 12/05/24 14:21 Morphine Sulfate (*Crx) 15 Mg Tab Ir PO 15 mg Q8H PRN Administration SEVERE PAIN Ondansetron HCl 4 mg 12/01/24 22:35 Ondansetron Inj 4 Mg/2 Ml Vial IV PUSH Q4H PRN Nausea Pantoprazole Sodium 40 mg 12/02/24 09:50 12/05/24 08:31 Pantoprazole 40 Mg Tablet PO 40 mg QAM VU Administration Vancomycin HCl 1 each 12/01/24 21:46 Vancomycin For Acute Kidney Injury IVPB PRN PRN Vancomycin Protocol Radiology Results: ITS Impressions Chest X-Ray 12/01/24 21:09 IMPRESSION: No acute cardiopulmonary process. Head CT 12/01/24 21:34 IMPRESSION: No acute intracranial process. CT findings that may represent acute right maxillary sinusitis in the appropriate clinical context. Chest/Abdomen/Pelvis CT 12/01/24 21:35 IMPRESSION: No acute finding in the chest. Mild cardiomegaly. CT findings suggestive of pulmonary hypertension. Persistent soft tissue density material and stranding in the gallbladder fossa, likely representing resolving postinfectious/postsurgical change. 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 Recommend MRI of the abdomen without contrast for further evaluation. Hospitalist [facility] Advance Care Plan I have confirmed that the patient's Advanced Care Plan is present, code status is documented, or surrogate decision maker is listed in patient medical record.: Yes Medication Reconciliation I have utilized all available resources to obtain, update and review the patients current medications (includes all prescriptions, OTC, herbals, cannabis, and nutritional supplements).: Yes
--- NOTE | 2024-12-05 15:34 | PCPTNOTE ---
Attempted PT evaluation, Pt sleeping. Per nurse, let pt sleep at this time. Will Follow.
[2024-12-05] MEDS: VANCOMYCIN 1,250 MG/NS 250 ML 1,250 MG/250 ML BAG 166.67 MG IVPB (15:44)
[2024-12-05] MEDS: DOXAZOSIN MESYLATE 4 MG TABLET PO (21:40)
[2024-12-06] VITALS (16 sets, daily range): BP systolic 141–191; BP diastolic 62–91; PULSE 75–113; RESP 12–18; TEMP 36.2–37; O2SAT 99–100
[2024-12-06] MEDS: ACETAMINOPHEN 325 MG TABLET 650 MG PO ×2 (02:00→17:42)
[2024-12-06 04:43] LABS: Hematocrit 22.8 % (42.0-52.0); Mean Corpuscular HGB Conc 29.8 g/dl (32-36); Mean Corpuscular Hemoglobin 27.5 pg (26-34); Mean Corpuscular Volume 92.3 fl (80-100); Platelet Count Result 409 k/mm3 (150-375); Red Blood Count 2.47 M/mm3 (4.6-6.20); White Blood Count 11.3 K/mm3 (4.5-10.0)
[2024-12-06 04:46] LABS: Hemoglobin 6.8 g/dL (14.0-18.0)
[2024-12-06 05:00] LABS: Alanine Aminotransferase 42 U/L (6-50); Albumin Level 2.5 g/dL (3.5-5.1); Alkaline Phosphatase 98 U/L (38-126); Anion Gap 4 mmol/L (4-12); Aspartate Amino Transferase 59 U/L (17-59); Bilirubin,Total 0.3 mg/dL (0.2-1.3); Blood Urea Nitrogen 30 mg/dL (9-20); Calcium 8.7 mg/dL (8.4-10.2); Carbon Dioxide 19 mmol/L (22-30); Chloride 109 mmol/L (98-107); Estimated CRCL calculation 36 ml/min; Estimated Glomerular Filt Rate 47; Glucose 122 mg/dL (65-110); Potassium 4.9 mmol/L (3.4-5.0); Sodium 132 mmol/L (137-145); Total Protein 5.8 g/dL (6.3-8.2)
[2024-12-06] MEDS: MORPHINE SULFATE (*CRX) 15 MG TAB IR PO ×3 (07:20→23:23)
[2024-12-06] MEDS: SODIUM CHLORIDE 0.9% IV 250 ML 30 ML IV CONT (07:23)
[2024-12-06] MEDS: PANTOPRAZOLE 40 MG TABLET PO (08:36)
[2024-12-06] MEDS: FINASTERIDE 5 MG TABLET PO (08:36)
--- NOTE | 2024-12-06 13:16 | P.PNIM_ITS ---
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 Status: Acute Assessment and Plan: Hold Eliquis Peroneal vein DVT (2) Type 2 diabetes mellitus with hyperglycemia, without long-term current use of insulin: Code(s): E11.65 - Type 2 diabetes mellitus with hyperglycemia Status: Chronic Assessment and Plan: SSI Hypoglycemia protocol (3) Acute anemia: Code(s): D64.9 - Anemia, unspecified Status: Acute Assessment and Plan: Possible delayed intramural duodenal bleed following the relatively recent ERCP Discussed with radiologist who agrees the possibility of hematoma 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 Pending outpatient endoscopic ultrasound at [facility] (4) Fever: Code(s): R50.9 - Fever, unspecified Status: Acute Assessment and Plan: likely reactive in nature remains afebrile no signs of infectious process Blood culture negative continue to monitor off antibiotics Discontinued cefepime (5) Bacteremia: Code(s): R78.81 - Bacteremia Status: Acute Assessment and Plan: Enterococcus faecalis Patient was previously positive for Enterococcus faecalis on 10/22 ID consulted Unclear source Consulted Cardiology for ADOLFO Monitor leukocytosis Continue ceftriaxone Monitor fever Subjective Date/time seen: 12/06/24 13:16 Interval history: Patient received 1 unit PRBC. Patient has a repeat Enterococcus faecalis in the blood. Consulted ID and requested ADOLFO. Review of Systems Review of Systems: As reviewed above in HPI All systems reviewed & are unremarkable except as noted in HPI and below (Subjective) Exam Narrative: GENERAL: Ill-appearing, tachycardic, febrile HEAD: Normocephalic EYES: Pupils equal and reactive ENT: Nares clear, no rhinorrhea or epistaxis. Mucous membranes moist. NECK: Supple. CHEST: Clear to auscultation, no respiratory distress or tachypnea HEART: [Regular rate and rhythm]. No murmur heard. [Normal peripheral pulses.] ABDOMEN: [Soft, nondistended], tender to palpation, [No rigidity or guarding] EXTREMITIES: Normal range of motion. No edema Pain reproduced with any range of motion of his extremities SKIN: Warm, dry, no rash. NEURO: Able to move his extremities, alert oriented x1, confused and repeats answers to questions, slow to respond to questioning, no facial asymmetry slurring of his speech Const: General: comfortable and no acute distress HENMT: Mouth: Yes moist mucous membranes Eyes: Pupils: Equal, round and reactive pupils present Neck: Neck: supple Resp: Effort & Inspection: normal respiratory effort Auscultation: clear to auscultation bilaterally Cardio: Rate: regular rate Rhythm: regular rhythm GI: Inspection: non-distended Neuro: Cranial nerves: Yes Equal, round and reactive pupils present Extrem: General: no edema Other: 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, no erythema, no fluctuance Objective Data Vital Signs Vital Signs: Vital Signs - 24 hr 12/05/24 13:58 12/05/24 16:04 12/05/24 20:00 Temperature 98.2 F Pulse Rate 89 89 88 Respiratory Rate 14 Blood Pressure 157/72 H Pulse Oximetry 100 Oxygen Delivery 12/05/24 21:30 12/05/24 22:00 12/05/24 22:06 Temperature 97.7 F Pulse Rate 87 Respiratory Rate 18 Blood Pressure 189/78 H 172/68 H Pulse Oximetry 100 Oxygen Delivery Room Air 12/06/24 00:00 12/06/24 00:20 12/06/24 04:00 Temperature Pulse Rate 88 76 Respiratory Rate Blood Pressure Pulse Oximetry 100 Oxygen Delivery Room Air 12/06/24 06:00 12/06/24 07:04 12/06/24 07:20 Temperature 97.5 F L 97.2 F L 97.4 F L Pulse Rate 76 76 86 Respiratory Rate 18 18 18 Blood Pressure 169/71 H 191/77 H 152/67 H Pulse Oximetry 100 99 100 Oxygen Delivery 12/06/24 07:35 12/06/24 08:03 12/06/24 08:20 Temperature 98.1 F Pulse Rate 75 93 Respiratory Rate 18 18 Blood Pressure 157/72 H Pulse Oximetry 99 100 Oxygen Delivery Room Air 12/06/24 09:20 12/06/24 10:20 12/06/24 10:20 Temperature 98.0 F 98.0 F 98.0 F Pulse Rate 92 87 87 Respiratory Rate 18 18 18 Blood Pressure 141/62 H 149/69 H 149/69 H Pulse Oximetry 100 99 99 Oxygen Delivery 12/06/24 11:49 12/06/24 12:03 Temperature Pulse Rate 113 H Respiratory Rate Blood Pressure Pulse Oximetry Oxygen Delivery Room Air Intake/Output Intake/Output: Intake & Output 08/11/25 12/04/24 12/05/24 12/06/24 23:59 23:59 23:59 23:59 Intake Total 6845 951 6647 1370.5 Output Total 1200 1100 1250 700 Balance 77 -620 1030 670.5 Meds/Results Medications: Active Medications Generic Name Dose Route Start Last Admin Trade Name Freq PRN Reason Stop Dose Admin Acetaminophen 650 mg 12/01/24 22:35 12/06/24 02:00 Acetaminophen 325 Mg Tablet PO 650 mg Q4H PRN Administration Mild Pain (1-3) or Fever Dextrose 12.5 gm 12/02/24 09:48 Dextrose 50% 25 Gm/50 Ml Syringe IV PUSH PRN PRN Hypoglycemia Protocol Doxazosin Mesylate 4 mg 12/02/24 21:00 12/05/24 21:40 Doxazosin Mesylate 4 Mg Tablet PO 4 mg QHS VU Administration Finasteride 5 mg 12/02/24 09:00 12/06/24 08:36 Finasteride 5 Mg Tablet PO 5 mg DAILY VU Administration Fluticasone Propionate 2 spray 12/02/24 03:58 Fluticasone Propionate 0.05% Na Spr 16 Gm Btl (*Bkc) NASAL DAILY PRN allergy symptoms Glucose 15 gm 12/02/24 09:48 Glucose Oral Gel 15 Gm Of Glucse In 37.5 Gm Tube PO PRN PRN Hypoglycemia Protocol Dextrose 1,000 mls @ 100 mls/hr 12/02/24 09:48 Dextrose 5% 1,000 Ml IVPB PRN PRN Hypoglycemia Protocol Sodium Chloride 250 mls @ 30 mls/hr 12/06/24 05:04 12/06/24 07:24 Normal Saline Iv IV CONT 12/06/24 13:23 0 mls/hr .Q8H20M STA Infusion Ampicillin Sodium 2 gm/ Sodium 100 mls @ 200 mls/hr 12/06/24 13:05 Chloride IVPB Q6H VU Ceftriaxone Sodium 2 gm/ 100 mls @ 200 mls/hr 12/06/24 13:05 Sodium Chloride IVPB Q12H VU Morphine Sulfate 15 mg 12/02/24 09:47 12/06/24 07:20 Morphine Sulfate (*Crx) 15 Mg Tab Ir PO 15 mg Q8H PRN Administration SEVERE PAIN Ondansetron HCl 4 mg 12/01/24 22:35 Ondansetron Inj 4 Mg/2 Ml Vial IV PUSH Q4H PRN Nausea Pantoprazole Sodium 40 mg 12/02/24 09:50 12/06/24 08:36 Pantoprazole 40 Mg Tablet PO 40 mg QAM VU Administration Radiology Results: ITS Impressions Chest X-Ray 12/01/24 21:09 IMPRESSION: No acute cardiopulmonary process. Head CT 12/01/24 21:34 IMPRESSION: No acute intracranial process. CT findings that may represent acute right maxillary sinusitis in the appropriate clinical context. Chest/Abdomen/Pelvis CT 12/01/24 21:35 IMPRESSION: No acute finding in the chest. Mild cardiomegaly. CT findings suggestive of pulmonary hypertension. Persistent soft tissue density material and stranding in the gallbladder fossa, likely representing resolving postinfectious/postsurgical change. 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 Recommend MRI of the abdomen without contrast for further evaluation. Labs Labs: Laboratory Results - last 24 hr 12/05/24 12/06/24 12/06/24 13:52 04:12 05:15 WBC 11.3 H RBC 2.47 L Hgb 6.8 L* Hct 22.8 L MCV 92.3 MCH 27.5 MCHC 29.8 L RDW 16.3 H Plt Count 409 H MPV 8.9 Sodium 132 L Potassium 4.9 Chloride 109 H Carbon Dioxide 19 L Anion Gap 4 BUN 30 H Creatinine 1.42 H Estim Creat Clear Calc 36 Estimated GFR 47 L Glucose 122 H Calcium 8.7 Total Bilirubin 0.3 AST 59 ALT 42 Alkaline Phosphatase 98 Total Protein 5.8 L Albumin 2.5 L Random Vancomycin 15.6 Blood Type O Positive Antibody Screen Negative Crossmatch See Detail Hospitalist MIPS Advance Care Plan I have confirmed that the patient's Advanced Care Plan is present, code status is documented, or surrogate decision maker is listed in patient medical record.: Yes Medication Reconciliation I have utilized all available resources to obtain, update and review the patients current medications (includes all prescriptions, OTC, herbals, cannabis, and nutritional supplements).: Yes
[2024-12-06] MEDS: AMPICILLIN SODIUM 2 GM in SODIUM CHLORIDE 0.9% IV 100 ML 200 ML IVPB ×3 (13:33→23:23)
[2024-12-06 13:34] LABS: Hematocrit 27.3 % (42.0-52.0); Hemoglobin 8.5 g/dL (14.0-18.0)
[2024-12-06] MEDS: cefTRIAXone 2 GM in SODIUM CHLORIDE 0.9% IV 100 ML 200 ML IVPB (14:14)
--- NOTE | 2024-12-06 15:14 | P.CONINF_ITS ---
Assessment and Plan Assessment and plan (1) Fever: Code(s): R50.9 - Fever, unspecified Status: Acute Plan #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 Patient presenting with decreased hemoglobin. Right lower quadrant pain versus hip pain. 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 With new anemia of unclear etiology. 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 With recent cholecystectomy and manipulation of the biliary tract September 2024. #Pacemaker. #Right hip fracture. With pinning. No CHANA. Plan: Will start ampicillin and ceftriaxone. Follow-up repeat blood cultures. Discussed with Dr. Nguyen. this will pursue transesophageal echocardiogram. Will follow hip exam. May need to do CT to further evaluate pain there. Not amenable to MRI based on previous discussion about pacemaker viability with MRI. Follow-up abdominal exam. LFTs are stable. Eventually [facility]. Will follow up and make further recommendations based on workup. This was done via telemedicine with me in [facility] in [facility]. With consent. HIPPA protected audiovisual interface. HPI Data of Consult Date/Time: 12/06/24 15:14 Requesting Physician: Joseph Nguyen MD Primary Care Provider: Stephania Clarke APRN Consult Narrative Reason for consult: Bacteremia Narrative: Angel Zuniga is a 89 year old male with a recent history of gangrenous gallbladder. Had presented in September 2024 abdominal discomfort. Was bacteremic with Enterococcus faecalis. Had gangrenous gallbladder removed. Blood cultures cleared after 2 days and following surgical control. He was placed on ampicillin and ceftriaxone eventually discharged home on antibiotic therapy he. He actually had been doing fairly well. Start developing increased weakness as well some right lower quadrant/possible hip pain. Does have pinning of the right hip. Came into the ED. CT scan not showing anything specific as far as intra Abdominal infection although he has a possible hematoma in the pancreatic head from previous manipulation. There is planned workup for a EUS at [facility] while patient is off anticoagulation. . Blood cultures drawn on 12/01 now growing Enterococcus faecalis. 1/2 blood cultures presently. Denies any nausea vomiting. Does have some soft stools. Pain in the right lower quadrant pain also when standing. No other joint complaints. Patient has a pacemaker. Denies any chest discomfort. 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 URI (upper respiratory infection) Preoperative clearance History of colon polyps Dupuytren's contracture of right hand Pre-operative clearance Trigger finger, right middle finger Iron deficiency anemia Low back pain radiating to left leg Type II diabetes mellitus with renal manifestations Essential hypertension, benign Mixed hyperlipidemia Bilateral inguinal hernia Small fat containing bilateral inguinal hernias noted on CT 09/30/2024 Hepatic steatosis Chronic pain GERD (gastroesophageal reflux disease) Dyslipidemia BPH (benign prostatic hyperplasia) Type 2 diabetes mellitus Hypertension Hyperlipidemia Chronic kidney disease Heart failure 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 moderate mitral valve regurgitation Surgical History Surgical History History of repair of right rotator cuff (~07/05/14) Subacromial Decompression; Limited Debridement Status post cataract extraction of both eyes with insertion of intraocular lens 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 He has 3 children. He is a retired [employer]. He he is a lifelong nonsmoker and does not drink alcohol or use illicit substances. He ambulates with a walker. Code status: Full code (he states he would not want long-term intubation or feeding tube) Surrogate decision maker: Nallely () Smoking status: Never smoker Second hand tobacco smoke exposure: No Alcohol intake: never Substance use: never Do You Feel Safe in your Home?: Yes Lack of Transportation: No Lack of Food: Never True Current Housing: I Have Housing Concerned About Future Housing: No Difficulty Paying Gas/Electric Bills: No Difficulty Paying for Meds: No Currently Unemployed: No Education: Don't Know Difficulty w/ Childcare or Family Care: No Living arrangements: with family Gender identity (if verbalized by the patient): Male Spiritual care concerns: No Meds Home Medications and Allergies Home Medications ?Medication ?Instructions ?Recorded ?Confirmed ?Type furosemide 40 mg tablet See Rx Instructions .Route 08/02/24 12/02/24 Rx .COMPLEX #180 tabs doxazosin 4 mg tablet (Cardura) 4 mg PO QHS #30 tabs 08/08/24 12/02/24 Rx clopidogrel 75 mg tablet (Plavix) 75 mg PO DAILY 09/30/24 12/02/24 History docusate sodium 100 mg capsule 100 mg PO DAILY 09/30/24 12/02/24 History (Colace) fluticasone propionate 50 2 spray intranasal DAILY PRN 09/30/24 12/02/24 History mcg/actuation nasal allergy symptoms spray,suspension (Flonase Allergy Relief) metolazone 5 mg tablet 5 mg PO DAILY 09/30/24 12/02/24 History verapamil 120 mg tablet 120 mg PO DAILY 09/30/24 12/02/24 History Saccharomyces boulardii 250 mg 250 mg PO BID #60 caps 10/24/24 12/02/24 Rx capsule (Florastor) apixaban 5 mg tablet (Eliquis) 5 mg PO Q12HR #60 tabs 10/24/24 12/02/24 Rx pantoprazole 40 mg tablet,delayed 40 mg PO QAM #40 tabs 10/24/24 12/02/24 Rx release polyethylene glycol 3350 17 gram 17 g PO QAM #14 ea 10/24/24 12/02/24 Rx oral powder packet (Miralax) ezetimibe 10 mg tablet (Zetia) 10 mg PO DAILY #90 tabs 10/30/24 12/02/24 Rx famotidine 20 mg tablet (Acid 20 mg PO BID #180 tabs 10/30/24 12/02/24 Rx Controller) finasteride 5 mg tablet 5 mg PO DAILY #90 tabs 10/30/24 12/02/24 Rx pioglitazone 15 mg tablet (Actos) 15 mg PO DAILY #90 tabs 10/30/24 12/02/24 Rx methocarbamol 750 mg tablet 750 mg PO TID PRN muscle spasm #30 11/06/24 12/02/24 Rx tabs prednisone 20 mg tablet 40 mg (2 x 20 mg) PO DAILY 4 days 11/06/24 12/02/24 Rx #8 tabs morphine 15 mg immediate release 15 mg PO Q8H PRN pain #80 tabs 11/20/24 12/02/24 Rx tablet Allergies Allergy/AdvReac Type Severity Reaction Status Date / Time atorvastatin Allergy Unknown myalgia Verified 12/01/24 19:32 rosuvastatin Allergy Unknown myalgia Verified 12/01/24 19:32 Vital Signs Vital Signs - 24 hr 12/05/24 16:04 12/05/24 20:00 12/05/24 21:30 Temperature Pulse Rate 89 88 Respiratory Rate Blood Pressure Pulse Oximetry Oxygen Delivery Room Air 12/05/24 22:00 12/05/24 22:06 12/06/24 00:00 Temperature 36.5 C Pulse Rate 87 88 Respiratory Rate 18 Blood Pressure 189/78 H 172/68 H Pulse Oximetry 100 Oxygen Delivery 12/06/24 00:20 12/06/24 04:00 12/06/24 06:00 Temperature 36.4 C L Pulse Rate 76 76 Respiratory Rate 18 Blood Pressure 169/71 H Pulse Oximetry 100 100 Oxygen Delivery Room Air 12/06/24 07:04 12/06/24 07:20 12/06/24 07:35 Temperature 36.2 C L 36.3 C L Pulse Rate 76 86 Respiratory Rate 18 18 18 Blood Pressure 191/77 H 152/67 H Pulse Oximetry 99 100 99 Oxygen Delivery Room Air 12/06/24 08:03 12/06/24 08:20 12/06/24 09:20 Temperature 36.7 C 36.7 C Pulse Rate 75 93 92 Respiratory Rate 18 18 Blood Pressure 157/72 H 141/62 H Pulse Oximetry 100 100 Oxygen Delivery 12/06/24 10:20 12/06/24 10:20 12/06/24 11:49 Temperature 36.7 C 36.7 C Pulse Rate 87 87 Respiratory Rate 18 18 Blood Pressure 149/69 H 149/69 H Pulse Oximetry 99 99 Oxygen Delivery Room Air 12/06/24 12:03 12/06/24 14:00 Temperature 36.9 C Pulse Rate 113 H 100 Respiratory Rate 12 Blood Pressure 152/70 H Pulse Oximetry 100 Oxygen Delivery Exam 2 Narrative: Alert oriented to person place and time. Family at bedside. Hard of hearing. No pain with direct range of motion of the hip area. No obvious SBE changes. Will review echo cardiographic results. Discussed with hospitalist. Denies headache. Results Labs 12/06/24 13:30 12/06/24 04:12 Labs: Short CBC 12/06/24 12/06/24 Range/Units 04:12 13:30 WBC 11.3 H (4.5-10.0) K/mm3 Hgb 6.8 L* 8.5 L (14.0-18.0) g/dL Hct 22.8 L 27.3 L (42.0-52.0) % Plt Count 409 H (150-375) k/mm3 BMP 12/06/24 04:12 Sodium 132 L Potassium 4.9 Chloride 109 H Carbon Dioxide 19 L BUN 30 H Creatinine 1.42 H Glucose 122 H Calcium 8.7 Liver Function 12/06/24 Range/Units 04:12 Total Bilirubin 0.3 (0.2-1.3) mg/dL AST 59 (17-59) U/L ALT 42 (6-50) U/L Alkaline Phosphatase 98 (38-126) U/L Albumin 2.5 L (3.5-5.1) g/dL
[2024-12-06] MEDS: DOXAZOSIN MESYLATE 4 MG TABLET PO (21:20)
[2024-12-07] VITALS (21 sets, daily range): BP systolic 136–178; BP diastolic 57–98; PULSE 78–104; RESP 12–20; TEMP 36.7–37.1; O2SAT 95–100
--- NOTE | 2024-12-07 | ECHO_ITS ---
Patient Info Name: Angel Zuniga Age: 89 years : 1935 Gender: Male Ht: 68 in Wt: 200 lbs BSA: 2.11 m2 HR: 102 bpm BP: 167 / 70 mmHg Heart Rhythm: Tachycardia Technical Quality: Good Exam Date: 12/07/2024 10:13 AM Patient Status: I Admit Date: 12/01/2024 Exam Type: CA echo transesophageal Complete two-dimensional, color flow and Doppler transesophageal study is performed. Staff Referring Physician: Joseph Nguyen Microbiology Teacher: Kylie Saavedra Attending Provider: Joseph Nguyen Summary 1. Left ventricular chamber dimension is normal. 2. Left ventricular systolic function is normal with an ejection fraction of 60-65% by visual estimation. 3. There is moderate concentric increased left ventricular wall thickness. 4. The left ventricular diastolic function is indeterminate as it was not assessed. 5. Linear artifact in right ventricle suggestive of catheter(s), pacemaker lead(s), or ICD lead(s). 6. Left atrial chamber dimension is moderately enlarged. 7. Linear artifact in the right atrium suggestive of catheter(s), pacemaker lead(s), or ICD lead(s). 8. The TAVR aortic valve is trileaflet. 9. There is moderate mitral valve regurgitation. 10. There is trace tricuspid valve regurgitation. 11. There is trace pulmonic regurgitation. Procedure Details Risks/benefits/alternative to ADOLFO discuss with patient and he gave informed consent. Patient was monitored electrocardiographically and was in sinus rhythm at 80 bpm, BP 150/80 mmHg, pulse ox >99% throughout. He was given Cetacaine spray x 1 to posterior oropharynx. Fentanyl 25 mcg and Versed 2 mg IV given for conscious sedation. ADOLFO probe advanced and he swallowed without incident. Agitated saline IV given. Multiple images obtained. ADOLFO probe withdrawn and no blood noted on ADOLFO probe tip. Left Ventricle Left ventricular chamber dimension is normal. Left ventricular systolic function is normal with an ejection fraction of 60-65% by visual estimation. There is moderate concentric increased left ventricular wall thickness. The left ventricular diastolic function is indeterminate as it was not assessed. Right Ventricle Right ventricular chamber dimension is normal. Right ventricular systolic function is normal. Linear artifact in right ventricle suggestive of catheter(s), pacemaker lead(s), or ICD lead(s). No obvious vegetation on pacemaker leads. Left Atria Left atrial chamber dimension is moderately enlarged. Right Atria Right atrial chamber dimension is normal. Linear artifact in the right atrium suggestive of catheter(s), pacemaker lead(s), or ICD lead(s). Atrial Septum Intact interatrial septum visualized by 2D, color flow and agitated saline imaging. Agitated saline injection opacified right side cardiac chambers without shunt to left side cardiac chambers. Atrial Appendage There is no thrombus visualized in the left atrial appendage. Aortic Valve The TAVR aortic valve is trileaflet. There is no sclerosis of the TAVR aortic valve leaflets. There is no TAVR aortic valve stenosis. There is no regurgitation of the TAVR aortic valve. No TAVR aortic valve vegetation visualized. Pulmonic Valve There is trace pulmonic regurgitation. No pulmonic valve vegetation visualized. Mitral Valve The mitral valve has a moderately calcified annulus. There is no mitral valve stenosis. There is moderate mitral valve regurgitation. No mitral valve vegetation visualized. Tricuspid Valve There is trace tricuspid valve regurgitation. No tricuspid valve vegetation visualized. RVSP is not measured. Pericardium/Pleural There is no pericardial effusion. Inferior Vena Cava Inferior vena cava is not well visualized. Aorta The aortic root size at the sinus of Valsalva is normal. Report Signatures
[2024-12-07] MEDS: cefTRIAXone 2 GM in SODIUM CHLORIDE 0.9% IV 100 ML 200 ML IVPB ×2 (00:36→13:19)
[2024-12-07] MEDS: AMPICILLIN SODIUM 2 GM in SODIUM CHLORIDE 0.9% IV 100 ML 200 ML IVPB ×3 (06:22→17:10)
[2024-12-07] MEDS: MORPHINE SULFATE (*CRX) 15 MG TAB IR PO ×2 (06:55→16:32)
--- NOTE | 2024-12-07 09:55 | PC.NURSE ---
To cardiac field laboratory operator via bed.
[2024-12-07] MEDS: fentaNYL CITRATE INJ (*CRX) 100 MCG/2 ML VIAL 25 MCG IV PUSH (10:24)
[2024-12-07] MEDS: MIDAZOLAM HCL (*CRX) 2 MG/2 ML VIAL IV PUSH (10:24)
--- NOTE | 2024-12-07 11:10 | PC.NURSE ---
Returned from cardiac laboratory clerk via bed.
--- NOTE | 2024-12-07 11:10 | PCNWS ---
Weekly nutritional screen. Patient is tolerating current diet with adequate intake. No weight loss reported. No nutritional needs at this time.
--- NOTE | 2024-12-07 11:20 | P.CONCA_ITS ---
Assessment and Plan Assessment and plan (1) Enterococcal bacteremia: Code(s): R78.81 - Bacteremia; B95.2 - Enterococcus as the cause of diseases classified elsewhere Status: Acute Assessment and Plan: ADOLFO performed this morning shows no evidence of vegetations or endocarditis. No evidence of atrial myxoma. No further cardiac workup. Will sign off. Please call with any questions. (2) Pacemaker: Code(s): Z95.0 - Presence of cardiac pacemaker Status: Acute Assessment and Plan: Stable. He is followed by his regular health nurse, Dr. Penn with [facility]. (3) Hypertension: Code(s): I10 - Essential (primary) hypertension Status: Chronic Assessment and Plan: Stable. (4) Mixed hyperlipidemia: Code(s): E78.2 - Mixed hyperlipidemia Status: Acute Assessment and Plan: On Zetia. (5) History of transcatheter aortic valve replacement (TAVR): Code(s): Z95.2 - Presence of prosthetic heart valve Status: Acute Assessment and Plan: Stable. History of Present Illness History of Present Illness Consult date/time: 12/07/24 11:21 Reason For Visit: Sepsis, acute anemia, pancreatic anomaly Narrative: 89 yr old man referred for needing a ADOLFO. 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 His regular health nurse is Dr. Penn with [facility]. I saw him in September 2024 when he was admitted here for over a month and had bacteremia with enterococcus faecalis related to gallbladder and placement of cholecystotomy tube. I offered ADOLFO then but he declined. He returned to hospital 6 days ago with weakness and found to have bacteremia again with same bacteria. ID was consulted and recommended ADOLFO. He is limited at walking around the house and not cannot walk due to significant edema of legs. Denies chest pain, sob, orthopnea, PND, edema, dizziness, palpitations. Review of Systems 2 Review of Systems: All systems reviewed & are unremarkable except as noted in HPI and below Constitutional: Constitutional: Reports as per HPI, Denies chills, Reports fatigue and Denies fever(s) Cardiovascular: Cardiovascular: Reports as per HPI, Denies chest pain and Denies irregular heart rhythm Respiratory: Respiratory: Reports as per HPI and Denies dyspnea Gastrointestinal: Gastrointestinal: Reports as per HPI and Denies abdominal pain Genitourinary: Genitourinary: Reports as per HPI and Denies dysuria Musculoskeletal: Musculoskeletal: Reports as per HPI Neurologic: Reports as per HPI, Denies dizziness and Denies syncope [facility] Past Medical History Medical History (Updated 12/07/24 @ 11:27 by Rachid Farnsworth DO) Bacteremia AAA (abdominal aortic aneurysm) 3.6 cm Choledocholithiasis with acute cholecystitis Cholangitis Elevated LFTs Chronic pain 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 URI (upper respiratory infection) Preoperative clearance History of colon polyps Dupuytren's contracture of right hand Pre-operative clearance Trigger finger, right middle finger Iron deficiency anemia Low back pain radiating to left leg Type II diabetes mellitus with renal manifestations Essential hypertension, benign Mixed hyperlipidemia Bilateral inguinal hernia Small fat containing bilateral inguinal hernias noted on CT 09/30/2024 Hepatic steatosis Chronic pain GERD (gastroesophageal reflux disease) Dyslipidemia BPH (benign prostatic hyperplasia) Type 2 diabetes mellitus Hypertension Hyperlipidemia Chronic kidney disease Heart failure 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 moderate mitral valve regurgitation Surgical History Surgical History History of repair of right rotator cuff (~07/05/14) Subacromial Decompression; Limited Debridement Status post cataract extraction of both eyes with insertion of intraocular lens 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 He has 3 children. He is a retired [employer]. He he is a lifelong nonsmoker and does not drink alcohol or use illicit substances. He ambulates with a walker. Code status: Full code (he states he would not want long-term intubation or feeding tube) Surrogate decision maker: Nallely () Smoking status: Never smoker Second hand tobacco smoke exposure: No Alcohol intake: never Substance use: never Do You Feel Safe in your Home?: Yes Lack of Transportation: No Lack of Food: Never True Current Housing: I Have Housing Concerned About Future Housing: No Difficulty Paying Gas/Electric Bills: No Difficulty Paying for Meds: No Currently Unemployed: No Education: Don't Know Difficulty w/ Childcare or Family Care: No Living arrangements: with family Gender identity (if verbalized by the patient): Male Spiritual care concerns: No Meds Home Medications and Allergies Home Medications ?Medication ?Instructions ?Recorded ?Confirmed ?Type furosemide 40 mg tablet See Rx Instructions .Route 08/02/24 12/02/24 Rx .COMPLEX #180 tabs doxazosin 4 mg tablet (Cardura) 4 mg PO QHS #30 tabs 08/08/24 12/02/24 Rx clopidogrel 75 mg tablet (Plavix) 75 mg PO DAILY 09/30/24 12/02/24 History docusate sodium 100 mg capsule 100 mg PO DAILY 09/30/24 12/02/24 History (Colace) fluticasone propionate 50 2 spray intranasal DAILY PRN 09/30/24 12/02/24 History mcg/actuation nasal allergy symptoms spray,suspension (Flonase Allergy Relief) metolazone 5 mg tablet 5 mg PO DAILY 09/30/24 12/02/24 History verapamil 120 mg tablet 120 mg PO DAILY 09/30/24 12/02/24 History Saccharomyces boulardii 250 mg 250 mg PO BID #60 caps 10/24/24 12/02/24 Rx capsule (Florastor) apixaban 5 mg tablet (Eliquis) 5 mg PO Q12HR #60 tabs 10/24/24 12/02/24 Rx pantoprazole 40 mg tablet,delayed 40 mg PO QAM #40 tabs 10/24/24 12/02/24 Rx release polyethylene glycol 3350 17 gram 17 g PO QAM #14 ea 10/24/24 12/02/24 Rx oral powder packet (Miralax) ezetimibe 10 mg tablet (Zetia) 10 mg PO DAILY #90 tabs 10/30/24 12/02/24 Rx famotidine 20 mg tablet (Acid 20 mg PO BID #180 tabs 10/30/24 12/02/24 Rx Controller) finasteride 5 mg tablet 5 mg PO DAILY #90 tabs 10/30/24 12/02/24 Rx pioglitazone 15 mg tablet (Actos) 15 mg PO DAILY #90 tabs 10/30/24 12/02/24 Rx methocarbamol 750 mg tablet 750 mg PO TID PRN muscle spasm #30 11/06/24 12/02/24 Rx tabs prednisone 20 mg tablet 40 mg (2 x 20 mg) PO DAILY 4 days 11/06/24 12/02/24 Rx #8 tabs morphine 15 mg immediate release 15 mg PO Q8H PRN pain #80 tabs 11/20/24 12/02/24 Rx tablet Allergies Allergy/AdvReac Type Severity Reaction Status Date / Time atorvastatin Allergy Unknown myalgia Verified 12/01/24 19:32 rosuvastatin Allergy Unknown myalgia Verified 12/01/24 19:32 Vital Signs Vital Signs - 24 hr 12/06/24 11:49 12/06/24 12:03 12/06/24 14:00 Temperature 98.4 F Pulse Rate 113 H 100 Respiratory Rate 12 Blood Pressure 152/70 H Pulse Oximetry 100 Oxygen Delivery Room Air Oxygen Flow Rate 12/06/24 16:03 12/06/24 20:00 12/06/24 20:00 Temperature Pulse Rate 104 H 100 Respiratory Rate Blood Pressure Pulse Oximetry Oxygen Delivery Room Air Oxygen Flow Rate 12/06/24 22:00 12/07/24 00:00 12/07/24 04:00 Temperature 98.6 F Pulse Rate 75 90 78 Respiratory Rate 18 Blood Pressure 164/91 H Pulse Oximetry 99 Oxygen Delivery Oxygen Flow Rate 12/07/24 06:00 12/07/24 08:03 12/07/24 08:53 Temperature 98.2 F Pulse Rate 81 88 Respiratory Rate 18 18 Blood Pressure 161/98 H Pulse Oximetry 95 95 Oxygen Delivery Room Air Oxygen Flow Rate 12/07/24 10:08 12/07/24 10:18 12/07/24 10:23 Temperature 98.1 F Pulse Rate 103 H 103 H 104 H Respiratory Rate 12 18 13 Blood Pressure 167/70 H 163/70 H 174/74 H Pulse Oximetry 99 99 98 Oxygen Delivery Oxygen Flow Rate 2.0 2.0 2.0 12/07/24 10:25 12/07/24 10:30 12/07/24 10:45 Temperature Pulse Rate 103 H 100 101 H Respiratory Rate 13 14 16 Blood Pressure 178/76 H 141/95 H 142/72 H Pulse Oximetry 99 100 100 Oxygen Delivery Room Air Oxygen Flow Rate 2.0 2.0 12/07/24 11:02 Temperature Pulse Rate 99 Respiratory Rate 14 Blood Pressure 142/71 H Pulse Oximetry 99 Oxygen Delivery Room Air Oxygen Flow Rate Exam 2 Const: General: cooperative, healthy appearing, comfortable and obese Resp: Auscultation: clear to auscultation bilaterally, no crackles, no rales, no rhonchi and no wheezes Cardio: Rate: regular rate Rhythm: regular rhythm Heart sounds: no murmurs Peripheral pulses: dorsalis pedis present GI: GI Palp: Yes abdominal tenderness and Yes Soft to palpation Neuro: General: oriented to person, oriented to place and oriented to time Extrem: Right lower extremity: no edema Left lower extremity: no edema Results Labs and Meds 12/06/24 13:30 12/06/24 04:12 Lab results: CBC 12/06/24 Range/Units 13:30 Hgb 8.5 L (14.0-18.0) g/dL Hct 27.3 L (42.0-52.0) % Intake and Output 12/06/24 12/07/24 12/07/24 23:59 07:59 15:59 Intake Total 1440 500 Output Total 900 1100 Balance 540 -600 Intake: IV 200 200 Ampicillin Sodium 2 gm In 200 100 Sodium Chloride 0.9% IV 100 ml @ 200 mls/hr IVPB Q6HR VU Rx#: [id number] cefTRIAXone 2 gm In Sodium 100 Chloride 0.9% IV 100 ml @ 200 mls/hr IVPB Q12H VU Rx#: [id number] Oral 1240 300 Output: Catheter Urine 900 1100 External/Condom 900 1100 Other: # Unmeasured Voids 1 Number of Bowel Movements Today 0 Patient Weight 12/07/24 23:59 Weight 91.1 kg
[2024-12-07] MEDS: ACETAMINOPHEN 325 MG TABLET 650 MG PO ×2 (11:35→20:58)
--- NOTE | 2024-12-07 12:14 | PCOTNOTE ---
Pt currently off the floor for a ADOLFO. Will continue to follow for OT evaluation.
[2024-12-07 13:10] LABS: Hematocrit 26.3 % (42.0-52.0); Hemoglobin 8.1 g/dL (14.0-18.0); Mean Corpuscular HGB Conc 30.8 g/dl (32-36); Mean Corpuscular Hemoglobin 27.8 pg (26-34); Mean Corpuscular Volume 90.4 fl (80-100); Platelet Count Result 440 k/mm3 (150-375); Red Blood Count 2.91 M/mm3 (4.6-6.20); White Blood Count 12.4 K/mm3 (4.5-10.0)
[2024-12-07 13:45] LABS: Alanine Aminotransferase 48 U/L (6-50); Albumin Level 2.6 g/dL (3.5-5.1); Alkaline Phosphatase 112 U/L (38-126); Anion Gap 7 mmol/L (4-12); Aspartate Amino Transferase 69 U/L (17-59); Bilirubin,Total 0.4 mg/dL (0.2-1.3); Blood Urea Nitrogen 24 mg/dL (9-20); Calcium 8.7 mg/dL (8.4-10.2); Carbon Dioxide 20 mmol/L (22-30); Chloride 105 mmol/L (98-107); Estimated CRCL calculation 38 ml/min; Estimated Glomerular Filt Rate 50; Glucose 189 mg/dL (65-110); Potassium 4.7 mmol/L (3.4-5.0); Sodium 132 mmol/L (137-145); Total Protein 6.2 g/dL (6.3-8.2)
--- NOTE | 2024-12-07 14:08 | P.PNINF_ITS ---
Progress Note: A&P Assessment and Plan (1) Fever: Code(s): R50.9 - Fever, unspecified Status: Acute Plan #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 Patient presenting with decreased hemoglobin. Right lower quadrant pain versus hip pain. 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 CHANO negative 12/07 Assessing for right hip involvement versus right knee. With new anemia of unclear etiology. 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 could be infected and source. With recent cholecystectomy and manipulation of the biliary tract September 2024. #Pacemaker. #Right hip fracture. With pinning. No CHANA. Plan: Continue ampicillin and ceftriaxone. CT right hip and knee with pacemaker not compatible with MRI. If the effusion increases in size, consider arthrocentesis for cell count /crystal analysis and culture. Anticipating at least 2 weeks of IV antibiotics with the possibility that pancreatic area could be source. No obvious area for drainage at this point. Has endoscopic ultrasound planned at [facility] will follow-up radiographic workup and monitor for improvement in leg exam. Likely here least through Tuesday so would hold on PICC line for now pending repeat blood cultures. . This was done via telemedicine with me in [facility] in [facility]. With consent. HIPPA protected audiovisual interface. Subjective Date/time seen: 12/07/24 14:08 Interval history: Still having the right lower quadrant pain/ possible hip pain. No describes some right knee swelling and pain. Chano is not consistent with endocarditis or pacemaker lead endocarditis. No fevers or chills. Exam Narrative: Alert and oriented to person place and time. Hard of hearing. Complain by family. Able to move right hip with some discomfort. Right knee with possible early effusion. No increased warmth. No SBE changes. Able to move extremities. Strength Objective Data Vital Signs Vital Signs: Vital Signs - 24 hr 12/06/24 16:03 12/06/24 20:00 12/06/24 20:00 Temperature Pulse Rate 104 H 100 Respiratory Rate Blood Pressure Pulse Oximetry Oxygen Delivery Room Air Oxygen Flow Rate 12/06/24 22:00 12/07/24 00:00 12/07/24 04:00 Temperature 37.0 C Pulse Rate 75 90 78 Respiratory Rate 18 Blood Pressure 164/91 H Pulse Oximetry 99 Oxygen Delivery Oxygen Flow Rate 12/07/24 06:00 12/07/24 08:03 12/07/24 08:53 Temperature 36.8 C Pulse Rate 81 88 Respiratory Rate 18 18 Blood Pressure 161/98 H Pulse Oximetry 95 95 Oxygen Delivery Room Air Oxygen Flow Rate 12/07/24 10:08 12/07/24 10:18 12/07/24 10:23 Temperature 36.7 C Pulse Rate 103 H 103 H 104 H Respiratory Rate 12 18 13 Blood Pressure 167/70 H 163/70 H 174/74 H Pulse Oximetry 99 99 98 Oxygen Delivery Oxygen Flow Rate 2.0 2.0 2.0 12/07/24 10:25 12/07/24 10:30 12/07/24 10:45 Temperature Pulse Rate 103 H 100 101 H Respiratory Rate 13 14 16 Blood Pressure 178/76 H 141/95 H 142/72 H Pulse Oximetry 99 100 100 Oxygen Delivery Room Air Oxygen Flow Rate 2.0 2.0 12/07/24 11:02 12/07/24 12:03 Temperature Pulse Rate 99 91 Respiratory Rate 14 Blood Pressure 142/71 H Pulse Oximetry 99 Oxygen Delivery Room Air Oxygen Flow Rate Intake/Output Intake/Output: Intake & Output 12/04/24 12/05/24 12/06/24 12/07/24 23:59 23:59 23:59 23:59 Intake Total 480 2280 3010.5 700 Output Total 1100 1250 1600 1100 Balance -620 1030 1410.5 -400 Meds/Results Medications: Active Medications Generic Name Dose Route Start Last Admin Trade Name Freq PRN Reason Stop Dose Admin Acetaminophen 650 mg 12/01/24 22:35 12/07/24 11:35 Acetaminophen 325 Mg Tablet PO 650 mg Q4H PRN Administration Mild Pain (1-3) or Fever Dextrose 12.5 gm 12/02/24 09:48 Dextrose 50% 25 Gm/50 Ml Syringe IV PUSH PRN PRN Hypoglycemia Protocol Doxazosin Mesylate 4 mg 12/02/24 21:00 12/06/24 21:20 Doxazosin Mesylate 4 Mg Tablet PO 4 mg QHS VU Administration Finasteride 5 mg 12/02/24 09:00 12/07/24 08:53 Finasteride 5 Mg Tablet PO Not Given DAILY VU Fluticasone Propionate 2 spray 12/02/24 03:58 Fluticasone Propionate 0.05% Na Spr 16 Gm Btl (*Bkc) NASAL DAILY PRN allergy symptoms Glucose 15 gm 12/02/24 09:48 Glucose Oral Gel 15 Gm Of Glucse In 37.5 Gm Tube PO PRN PRN Hypoglycemia Protocol Dextrose 1,000 mls @ 100 mls/hr 12/02/24 09:48 Dextrose 5% 1,000 Ml IVPB PRN PRN Hypoglycemia Protocol Ampicillin Sodium 2 gm/ Sodium 100 mls @ 200 mls/hr 12/06/24 13:05 12/07/24 12:05 Chloride IVPB Infused Q6HR VU Infusion Ceftriaxone Sodium 2 gm/ 100 mls @ 200 mls/hr 12/06/24 14:00 12/07/24 13:51 Sodium Chloride IVPB Infused Q12H VU Infusion Morphine Sulfate 15 mg 12/02/24 09:47 12/07/24 06:55 Morphine Sulfate (*Crx) 15 Mg Tab Ir PO 15 mg Q8H PRN Administration SEVERE PAIN Ondansetron HCl 4 mg 12/01/24 22:35 Ondansetron Inj 4 Mg/2 Ml Vial IV PUSH Q4H PRN Nausea Pantoprazole Sodium 40 mg 12/02/24 09:50 12/07/24 08:53 Pantoprazole 40 Mg Tablet PO Not Given [facility] Radiology Results: ITS Impressions Chest X-Ray 12/01/24 21:09 IMPRESSION: No acute cardiopulmonary process. Head CT 12/01/24 21:34 IMPRESSION: No acute intracranial process. CT findings that may represent acute right maxillary sinusitis in the appropriate clinical context. Chest/Abdomen/Pelvis CT 12/01/24 21:35 IMPRESSION: No acute finding in the chest. Mild cardiomegaly. CT findings suggestive of pulmonary hypertension. Persistent soft tissue density material and stranding in the gallbladder fossa, likely representing resolving postinfectious/postsurgical change. 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 Recommend MRI of the abdomen without contrast for further evaluation. Labs Labs: Laboratory Results - last 24 hr 12/07/24 13:00 WBC 12.4 H RBC 2.91 L Hgb 8.1 L Hct 26.3 L MCV 90.4 MCH 27.8 MCHC 30.8 L RDW 16.2 H Plt Count 440 H MPV 8.8 Sodium 132 L Potassium 4.7 Chloride 105 Carbon Dioxide 20 L Anion Gap 7 BUN 24 H Creatinine 1.34 H Estim Creat Clear Calc 38 Estimated GFR 50 L Glucose 189 H Calcium 8.7 Total Bilirubin 0.4 AST 69 H ALT 48 Alkaline Phosphatase 112 Total Protein 6.2 L Albumin 2.6 L
--- NOTE | 2024-12-07 15:32 | PM.IMPN ---
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 Status: Acute Assessment and Plan: Hold Eliquis Peroneal vein DVT (2) Type 2 diabetes mellitus with hyperglycemia, without long-term current use of insulin: Code(s): E11.65 - Type 2 diabetes mellitus with hyperglycemia Status: Chronic Assessment and Plan: SSI Hypoglycemia protocol (3) Acute anemia: Code(s): D64.9 - Anemia, unspecified Status: Acute Assessment and Plan: Possible delayed intramural duodenal bleed following the relatively recent ERCP Discussed with radiologist who agrees the possibility of hematoma 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 Pending outpatient endoscopic ultrasound at [facility] (4) Fever: Code(s): R50.9 - Fever, unspecified Status: Acute Assessment and Plan: Blood culture positive for Enterococcus faecalis-recurrent remains afebrile no signs of infectious process Blood culture positive for Enterococcus faecalis Started on ampicillin and ceftriaxone (5) Bacteremia: Code(s): R78.81 - Bacteremia Status: Acute Assessment and Plan: 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 Patient underwent ADOLFO no evidence of endocarditis. Will discuss with ID for the duration of antibiotic Review of Systems Review of Systems: As reviewed above in HPI All systems reviewed & are unremarkable except as noted in HPI and below (Subjective) Exam Narrative: GENERAL: Ill-appearing, tachycardic, febrile HEAD: Normocephalic EYES: Pupils equal and reactive ENT: Nares clear, no rhinorrhea or epistaxis. Mucous membranes moist. NECK: Supple. CHEST: Clear to auscultation, no respiratory distress or tachypnea HEART: [Regular rate and rhythm]. No murmur heard. [Normal peripheral pulses.] ABDOMEN: [Soft, nondistended], tender to palpation, [No rigidity or guarding] EXTREMITIES: Normal range of motion. No edema Pain reproduced with any range of motion of his extremities SKIN: Warm, dry, no rash. NEURO: Able to move his extremities, alert oriented x1, confused and repeats answers to questions, slow to respond to questioning, no facial asymmetry slurring of his speech Const: General: comfortable and no acute distress HENMT: Mouth: Yes moist mucous membranes Eyes: Pupils: Equal, round and reactive pupils present Neck: Neck: supple Resp: Effort & Inspection: normal respiratory effort Auscultation: clear to auscultation bilaterally Cardio: Rate: regular rate Rhythm: regular rhythm GI: Inspection: non-distended Neuro: Cranial nerves: Yes Equal, round and reactive pupils present Extrem: General: no edema Other: 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, no erythema, no fluctuance Objective Data Vital Signs Vital Signs: Vital Signs - 24 hr 12/06/24 16:03 12/06/24 20:00 12/06/24 20:00 Temperature Pulse Rate 104 H 100 Respiratory Rate Blood Pressure Pulse Oximetry Oxygen Delivery Room Air Oxygen Flow Rate 12/06/24 22:00 12/07/24 00:00 12/07/24 04:00 Temperature 98.6 F Pulse Rate 75 90 78 Respiratory Rate 18 Blood Pressure 164/91 H Pulse Oximetry 99 Oxygen Delivery Oxygen Flow Rate 12/07/24 06:00 12/07/24 08:03 12/07/24 08:53 Temperature 98.2 F Pulse Rate 81 88 Respiratory Rate 18 18 Blood Pressure 161/98 H Pulse Oximetry 95 95 Oxygen Delivery Room Air Oxygen Flow Rate 12/07/24 10:08 12/07/24 10:18 12/07/24 10:23 Temperature 98.1 F Pulse Rate 103 H 103 H 104 H Respiratory Rate 12 18 13 Blood Pressure 167/70 H 163/70 H 174/74 H Pulse Oximetry 99 99 98 Oxygen Delivery Oxygen Flow Rate 2.0 2.0 2.0 12/07/24 10:25 12/07/24 10:30 12/07/24 10:45 Temperature Pulse Rate 103 H 100 101 H Respiratory Rate 13 14 16 Blood Pressure 178/76 H 141/95 H 142/72 H Pulse Oximetry 99 100 100 Oxygen Delivery Room Air Oxygen Flow Rate 2.0 2.0 12/07/24 11:02 12/07/24 11:15 12/07/24 11:30 Temperature 98.7 F 98.7 F Pulse Rate 99 97 92 Respiratory Rate 14 14 14 Blood Pressure 142/71 H 140/57 L 154/65 H Pulse Oximetry 99 97 97 Oxygen Delivery Room Air Oxygen Flow Rate 12/07/24 12:00 12/07/24 12:03 12/07/24 13:00 Temperature 98.2 F 98.6 F Pulse Rate 96 91 100 Respiratory Rate 16 16 Blood Pressure 148/61 H 136/59 L Pulse Oximetry 98 98 Oxygen Delivery Oxygen Flow Rate Intake/Output Intake/Output: Intake & Output 12/04/24 12/05/24 12/06/24 12/07/24 23:59 23:59 23:59 23:59 Intake Total 480 2280 3010.5 940 Output Total 1100 1250 1600 1100 Balance -620 1030 1410.5 -160 Meds/Results Medications: Active Medications Generic Name Dose Route Start Last Admin Trade Name Freq PRN Reason Stop Dose Admin Acetaminophen 650 mg 12/01/24 22:35 12/07/24 11:35 Acetaminophen 325 Mg Tablet PO 650 mg Q4H PRN Administration Mild Pain (1-3) or Fever Dextrose 12.5 gm 12/02/24 09:48 Dextrose 50% 25 Gm/50 Ml Syringe IV PUSH PRN PRN Hypoglycemia Protocol Doxazosin Mesylate 4 mg 12/02/24 21:00 12/06/24 21:20 Doxazosin Mesylate 4 Mg Tablet PO 4 mg QHS VU Administration Finasteride 5 mg 12/02/24 09:00 12/07/24 08:53 Finasteride 5 Mg Tablet PO Not Given DAILY VU Fluticasone Propionate 2 spray 12/02/24 03:58 Fluticasone Propionate 0.05% Na Spr 16 Gm Btl (*Bkc) NASAL DAILY PRN allergy symptoms Glucose 15 gm 12/02/24 09:48 Glucose Oral Gel 15 Gm Of Glucse In 37.5 Gm Tube PO PRN PRN Hypoglycemia Protocol Dextrose 1,000 mls @ 100 mls/hr 12/02/24 09:48 Dextrose 5% 1,000 Ml IVPB PRN PRN Hypoglycemia Protocol Ampicillin Sodium 2 gm/ Sodium 100 mls @ 200 mls/hr 12/06/24 13:05 12/07/24 12:05 Chloride IVPB Infused Q6HR VU Infusion Ceftriaxone Sodium 2 gm/ 100 mls @ 200 mls/hr 12/06/24 14:00 12/07/24 13:51 Sodium Chloride IVPB Infused Q12H VU Infusion Morphine Sulfate 15 mg 12/02/24 09:47 12/07/24 06:55 Morphine Sulfate (*Crx) 15 Mg Tab Ir PO 15 mg Q8H PRN Administration SEVERE PAIN Ondansetron HCl 4 mg 12/01/24 22:35 Ondansetron Inj 4 Mg/2 Ml Vial IV PUSH Q4H PRN Nausea Pantoprazole Sodium 40 mg 12/02/24 09:50 12/07/24 08:53 Pantoprazole 40 Mg Tablet PO Not Given [facility] Radiology Results: ITS Impressions Chest X-Ray 12/01/24 21:09 IMPRESSION: No acute cardiopulmonary process. Head CT 12/01/24 21:34 IMPRESSION: No acute intracranial process. CT findings that may represent acute right maxillary sinusitis in the appropriate clinical context. Chest/Abdomen/Pelvis CT 12/01/24 21:35 IMPRESSION: No acute finding in the chest. Mild cardiomegaly. CT findings suggestive of pulmonary hypertension. Persistent soft tissue density material and stranding in the gallbladder fossa, likely representing resolving postinfectious/postsurgical change. 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 Recommend MRI of the abdomen without contrast for further evaluation. Labs Labs: Laboratory Results - last 24 hr 12/07/24 13:00 WBC 12.4 H RBC 2.91 L Hgb 8.1 L Hct 26.3 L MCV 90.4 MCH 27.8 MCHC 30.8 L RDW 16.2 H Plt Count 440 H MPV 8.8 Sodium 132 L Potassium 4.7 Chloride 105 Carbon Dioxide 20 L Anion Gap 7 BUN 24 H Creatinine 1.34 H Estim Creat Clear Calc 38 Estimated GFR 50 L Glucose 189 H Calcium 8.7 Total Bilirubin 0.4 AST 69 H ALT 48 Alkaline Phosphatase 112 Total Protein 6.2 L Albumin 2.6 L Hospitalist [facility] Advance Care Plan I have confirmed that the patient's Advanced Care Plan is present, code status is documented, or surrogate decision maker is listed in patient medical record.: Yes Medication Reconciliation I have utilized all available resources to obtain, update and review the patients current medications (includes all prescriptions, OTC, herbals, cannabis, and nutritional supplements).: Yes
[2024-12-07] MEDS: DOXAZOSIN MESYLATE 4 MG TABLET PO (20:58)
[2024-12-07] MEDS: DOCUSATE SODIUM 100 MG CAPSULE PO (20:58)
[2024-12-08] VITALS (10 sets, daily range): BP systolic 141–162; BP diastolic 65–68; PULSE 81–102; RESP 16–20; TEMP 36.5–37.1; O2SAT 99–100
[2024-12-08] MEDS: MORPHINE SULFATE (*CRX) 15 MG TAB IR PO ×3 (00:04→16:20)
[2024-12-08] MEDS: AMPICILLIN SODIUM 2 GM in SODIUM CHLORIDE 0.9% IV 100 ML IVPB (00:05)
[2024-12-08] MEDS: cefTRIAXone 2 GM in SODIUM CHLORIDE 0.9% IV 100 ML 200 ML IVPB ×2 (01:09→13:19)
[2024-12-08] MEDS: ACETAMINOPHEN 325 MG TABLET 650 MG PO ×4 (03:16→20:35)
[2024-12-08 04:46] LABS: Hematocrit 23.7 % (42.0-52.0); Hemoglobin 7.3 g/dL (14.0-18.0); Mean Corpuscular HGB Conc 30.8 g/dl (32-36); Mean Corpuscular Hemoglobin 27.9 pg (26-34); Mean Corpuscular Volume 90.5 fl (80-100); Platelet Count Result 386 k/mm3 (150-375); Red Blood Count 2.62 M/mm3 (4.6-6.20); White Blood Count 10.4 K/mm3 (4.5-10.0)
[2024-12-08 05:22] LABS: Alanine Aminotransferase 57 U/L (6-50); Albumin Level 2.4 g/dL (3.5-5.1); Alkaline Phosphatase 101 U/L (38-126); Anion Gap 5 mmol/L (4-12); Aspartate Amino Transferase 87 U/L (17-59); Bilirubin,Total 0.2 mg/dL (0.2-1.3); Blood Urea Nitrogen 21 mg/dL (9-20); Calcium 8.8 mg/dL (8.4-10.2); Carbon Dioxide 21 mmol/L (22-30); Chloride 106 mmol/L (98-107); Estimated CRCL calculation 38 ml/min; Estimated Glomerular Filt Rate 49; Glucose 126 mg/dL (65-110); Potassium 4.6 mmol/L (3.4-5.0); Sodium 132 mmol/L (137-145); Total Protein 5.9 g/dL (6.3-8.2)
[2024-12-08] MEDS: AMPICILLIN SODIUM 2 GM in SODIUM CHLORIDE 0.9% IV 100 ML 200 ML IVPB ×3 (06:31→18:22)
[2024-12-08] MEDS: FINASTERIDE 5 MG TABLET PO (08:20)
[2024-12-08] MEDS: PANTOPRAZOLE 40 MG TABLET PO (08:20)
[2024-12-08] MEDS: DOCUSATE SODIUM 100 MG CAPSULE PO ×2 (08:20→20:36)
--- NOTE | 2024-12-08 09:55 | PM.IMPN ---
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 Status: Acute Assessment and Plan: Hold Eliquis Peroneal vein DVT (2) Type 2 diabetes mellitus with hyperglycemia, without long-term current use of insulin: Code(s): E11.65 - Type 2 diabetes mellitus with hyperglycemia Status: Chronic Assessment and Plan: SSI Hypoglycemia protocol (3) Acute anemia: Code(s): D64.9 - Anemia, unspecified Status: Acute Assessment and Plan: Possible delayed intramural duodenal bleed following the relatively recent ERCP Discussed with radiologist who agrees the possibility of hematoma 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 could be infected and source. With recent cholecystectomy and manipulation of the biliary tract September 2024. 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 could be infected and source. With recent cholecystectomy and manipulation of the biliary tract September 2024. Subjective Date/time seen: 12/08/24 09:55 Interval history: Discussed with infectious disease. Pending CT right pelvis and knee. Hemoglobin dropped from 8.1-7.3 ,will continue to monitor Review of Systems Review of Systems: As reviewed above in HPI All systems reviewed & are unremarkable except as noted in HPI and below (Subjective) Exam Narrative: GENERAL: Ill-appearing, tachycardic, febrile HEAD: Normocephalic EYES: Pupils equal and reactive ENT: Nares clear, no rhinorrhea or epistaxis. Mucous membranes moist. NECK: Supple. CHEST: Clear to auscultation, no respiratory distress or tachypnea HEART: [Regular rate and rhythm]. No murmur heard. [Normal peripheral pulses.] ABDOMEN: [Soft, nondistended], tender to palpation, [No rigidity or guarding] EXTREMITIES: Normal range of motion. No edema Pain reproduced with any range of motion of his extremities SKIN: Warm, dry, no rash. NEURO: Able to move his extremities, alert oriented x1, confused and repeats answers to questions, slow to respond to questioning, no facial asymmetry slurring of his speech Const: General: comfortable and no acute distress HENMT: Mouth: Yes moist mucous membranes Eyes: Pupils: Equal, round and reactive pupils present Neck: Neck: supple Resp: Effort & Inspection: normal respiratory effort Auscultation: clear to auscultation bilaterally Cardio: Rate: regular rate Rhythm: regular rhythm GI: Inspection: non-distended Neuro: Cranial nerves: Yes Equal, round and reactive pupils present Extrem: General: no edema Other: 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, no erythema, no fluctuance Objective Data Vital Signs Vital Signs: Vital Signs - 24 hr 12/07/24 10:08 12/07/24 10:18 12/07/24 10:23 Temperature 98.1 F Pulse Rate 103 H 103 H 104 H Respiratory Rate 12 18 13 Blood Pressure 167/70 H 163/70 H 174/74 H Pulse Oximetry 99 99 98 Oxygen Delivery Oxygen Flow Rate 2.0 2.0 2.0 12/07/24 10:25 12/07/24 10:30 12/07/24 10:45 Temperature Pulse Rate 103 H 100 101 H Respiratory Rate 13 14 16 Blood Pressure 178/76 H 141/95 H 142/72 H Pulse Oximetry 99 100 100 Oxygen Delivery Room Air Oxygen Flow Rate 2.0 2.0 12/07/24 11:02 12/07/24 11:15 12/07/24 11:30 Temperature 98.7 F 98.7 F Pulse Rate 99 97 92 Respiratory Rate 14 14 14 Blood Pressure 142/71 H 140/57 L 154/65 H Pulse Oximetry 99 97 97 Oxygen Delivery Room Air Oxygen Flow Rate 12/07/24 12:00 12/07/24 12:03 12/07/24 13:00 Temperature 98.2 F 98.6 F Pulse Rate 96 91 100 Respiratory Rate 16 16 Blood Pressure 148/61 H 136/59 L Pulse Oximetry 98 98 Oxygen Delivery Oxygen Flow Rate 12/07/24 16:03 12/07/24 20:00 12/07/24 20:48 Temperature Pulse Rate 84 85 Respiratory Rate Blood Pressure Pulse Oximetry Oxygen Delivery Room Air Oxygen Flow Rate 12/07/24 21:24 08/15/25 23:31 12/08/24 00:00 Temperature 98.4 F Pulse Rate 95 89 Respiratory Rate 20 Blood Pressure 166/72 H Pulse Oximetry 100 100 Oxygen Delivery Room Air Oxygen Flow Rate 12/08/24 04:00 12/08/24 05:01 Temperature 97.7 F Pulse Rate 81 83 Respiratory Rate 20 Blood Pressure 141/65 H Pulse Oximetry 99 Oxygen Delivery Oxygen Flow Rate Intake/Output Intake/Output: Intake & Output 12/05/24 12/06/24 12/07/24 12/08/24 23:59 23:59 23:59 23:59 Intake Total 2280 3010.5 1520 550 Output Total 1250 1600 1900 1050 Balance 1030 1410.5 -380 -500 Meds/Results Medications: Active Medications Generic Name Dose Route Start Last Admin Trade Name Freq PRN Reason Stop Dose Admin Acetaminophen 650 mg 12/01/24 22:35 12/08/24 03:16 Acetaminophen 325 Mg Tablet PO 650 mg Q4H PRN Administration Mild Pain (1-3) or Fever Dextrose 12.5 gm 12/02/24 09:48 Dextrose 50% 25 Gm/50 Ml Syringe IV PUSH PRN PRN Hypoglycemia Protocol Docusate Sodium 100 mg 12/07/24 21:00 12/08/24 08:20 Docusate Sodium 100 Mg Capsule PO 100 mg Q12HR VU Administration Doxazosin Mesylate 4 mg 12/02/24 21:00 12/07/24 20:58 Doxazosin Mesylate 4 Mg Tablet PO 4 mg QHS VU Administration Finasteride 5 mg 12/02/24 09:00 12/08/24 08:20 Finasteride 5 Mg Tablet PO 5 mg DAILY VU Administration Fluticasone Propionate 2 spray 12/02/24 03:58 Fluticasone Propionate 0.05% Na Spr 16 Gm Btl (*Bkc) NASAL DAILY PRN allergy symptoms Glucose 15 gm 12/02/24 09:48 Glucose Oral Gel 15 Gm Of Glucse In 37.5 Gm Tube PO PRN PRN Hypoglycemia Protocol Dextrose 1,000 mls @ 100 mls/hr 12/02/24 09:48 Dextrose 5% 1,000 Ml IVPB PRN PRN Hypoglycemia Protocol Ampicillin Sodium 2 gm/ Sodium 100 mls @ 200 mls/hr 12/06/24 13:05 12/08/24 06:31 Chloride IVPB 200 mls/hr Q6HR VU Administration Ceftriaxone Sodium 2 gm/ 100 mls @ 200 mls/hr 12/06/24 14:00 12/08/24 01:39 Sodium Chloride IVPB Infused Q12H VU Infusion Morphine Sulfate 15 mg 12/02/24 09:47 12/08/24 08:20 Morphine Sulfate (*Crx) 15 Mg Tab Ir PO 15 mg Q8H PRN Administration SEVERE PAIN Ondansetron HCl 4 mg 12/01/24 22:35 Ondansetron Inj 4 Mg/2 Ml Vial IV PUSH Q4H PRN Nausea Pantoprazole Sodium 40 mg 12/02/24 09:50 12/08/24 08:20 Pantoprazole 40 Mg Tablet PO 40 mg QAM VU Administration Radiology Results: ITS Impressions Chest X-Ray 12/01/24 21:09 IMPRESSION: No acute cardiopulmonary process. Head CT 12/01/24 21:34 IMPRESSION: No acute intracranial process. CT findings that may represent acute right maxillary sinusitis in the appropriate clinical context. Chest/Abdomen/Pelvis CT 12/01/24 21:35 IMPRESSION: No acute finding in the chest. Mild cardiomegaly. CT findings suggestive of pulmonary hypertension. Persistent soft tissue density material and stranding in the gallbladder fossa, likely representing resolving postinfectious/postsurgical change. 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 Recommend MRI of the abdomen without contrast for further evaluation. Labs Labs: Laboratory Results - last 24 hr 12/07/24 12/08/24 12/08/24 13:00 04:37 04:38 WBC 12.4 H 10.4 H RBC 2.91 L 2.62 L Hgb 8.1 L 7.3 L Hct 26.3 L 23.7 L MCV 90.4 90.5 MCH 27.8 27.9 MCHC 30.8 L 30.8 L RDW 16.2 H 16.2 H Plt Count 440 H 386 H MPV 8.8 8.6 Sodium 132 L 132 L Potassium 4.7 4.6 Chloride 105 106 Carbon Dioxide 20 L 21 L Anion Gap 7 5 BUN 24 H 21 H Creatinine 1.34 H 1.38 H Estim Creat Clear Calc 38 38 Estimated GFR 50 L 49 L Glucose 189 H 126 H Calcium 8.7 8.8 Total Bilirubin 0.4 0.2 AST 69 H 87 H ALT 48 57 H Alkaline Phosphatase 112 101 Total Protein 6.2 L 5.9 L Albumin 2.6 L 2.4 L Hospitalist MIPS Advance Care Plan I have confirmed that the patient's Advanced Care Plan is present, code status is documented, or surrogate decision maker is listed in patient medical record.: Yes Medication Reconciliation I have utilized all available resources to obtain, update and review the patients current medications (includes all prescriptions, OTC, herbals, cannabis, and nutritional supplements).: Yes
[2024-12-08] MEDS: HYDROmorphone HCL INJ (*CRX) 1 MG/ML SYR 0.5 MG IV PUSH ×3 (13:18→22:23)
[2024-12-08] MEDS: DOXAZOSIN MESYLATE 4 MG TABLET PO (20:35)
[2024-12-09] VITALS (11 sets, daily range): BP systolic 156–170; BP diastolic 60–74; PULSE 79–109; RESP 16–20; TEMP 36.8–37; O2SAT 95–99
[2024-12-09] MEDS: AMPICILLIN SODIUM 2 GM in SODIUM CHLORIDE 0.9% IV 100 ML 200 ML IVPB ×4 (00:06→17:24)
[2024-12-09] MEDS: MORPHINE SULFATE (*CRX) 15 MG TAB IR PO ×3 (00:06→17:23)
[2024-12-09] MEDS: cefTRIAXone 2 GM in SODIUM CHLORIDE 0.9% IV 100 ML 200 ML IVPB ×2 (02:18→15:04)
[2024-12-09] MEDS: HYDROmorphone HCL INJ (*CRX) 1 MG/ML SYR 0.5 MG IV PUSH ×5 (02:25→20:34)
[2024-12-09 04:57] LABS: Hematocrit 24.5 % (42.0-52.0); Hemoglobin 7.2 g/dL (14.0-18.0); Mean Corpuscular HGB Conc 29.4 g/dl (32-36); Mean Corpuscular Hemoglobin 27.3 pg (26-34); Mean Corpuscular Volume 92.8 fl (80-100); Platelet Count Result 412 k/mm3 (150-375); Red Blood Count 2.64 M/mm3 (4.6-6.20); White Blood Count 10.2 K/mm3 (4.5-10.0)
[2024-12-09 05:21] LABS: Alanine Aminotransferase 73 U/L (6-50); Albumin Level 2.5 g/dL (3.5-5.1); Alkaline Phosphatase 110 U/L (38-126); Anion Gap 4 mmol/L (4-12); Aspartate Amino Transferase 107 U/L (17-59); Bilirubin,Total 0.2 mg/dL (0.2-1.3); Blood Urea Nitrogen 21 mg/dL (9-20); Calcium 8.8 mg/dL (8.4-10.2); Carbon Dioxide 24 mmol/L (22-30); Chloride 105 mmol/L (98-107); Estimated CRCL calculation 41 ml/min; Estimated Glomerular Filt Rate 53; Glucose 115 mg/dL (65-110); Potassium 4.8 mmol/L (3.4-5.0); Sodium 133 mmol/L (137-145); Total Protein 5.8 g/dL (6.3-8.2)
--- NOTE | 2024-12-09 07:50 | P.PNIM_ITS ---
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 Status: Acute Assessment and Plan: Hold Eliquis Peroneal vein DVT (2) Type 2 diabetes mellitus with hyperglycemia, without long-term current use of insulin: Code(s): E11.65 - Type 2 diabetes mellitus with hyperglycemia Status: Chronic Assessment and Plan: SSI Hypoglycemia protocol (3) Acute anemia: Code(s): D64.9 - Anemia, unspecified Status: Acute Assessment and Plan: Possible delayed intramural duodenal bleed following the relatively recent ERCP Discussed with radiologist who agrees the possibility of hematoma 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 could be infected and source. With recent cholecystectomy and manipulation of the biliary tract September 2024. 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 could be infected and source. With recent cholecystectomy and manipulation of the biliary tract September 2024. Subjective Date/time seen: 12/09/24 07:50 Interval history: Patient complains of right knee pain. Consulted Ortho for possible aspiration. Review of Systems Review of Systems: As reviewed above in HPI All systems reviewed & are unremarkable except as noted in HPI and below (Subjective) Exam Narrative: GENERAL: Ill-appearing, tachycardic, febrile HEAD: Normocephalic EYES: Pupils equal and reactive ENT: Nares clear, no rhinorrhea or epistaxis. Mucous membranes moist. NECK: Supple. CHEST: Clear to auscultation, no respiratory distress or tachypnea HEART: [Regular rate and rhythm]. No murmur heard. [Normal peripheral pulses.] ABDOMEN: [Soft, nondistended], tender to palpation, [No rigidity or guarding] EXTREMITIES: Normal range of motion. No edema Pain reproduced with any range of motion of his extremities SKIN: Warm, dry, no rash. NEURO: Able to move his extremities, alert oriented x1, confused and repeats answers to questions, slow to respond to questioning, no facial asymmetry slurring of his speech Const: General: comfortable and no acute distress HENMT: Mouth: Yes moist mucous membranes Eyes: Pupils: Equal, round and reactive pupils present Neck: Neck: supple Resp: Effort & Inspection: normal respiratory effort Auscultation: clear to auscultation bilaterally Cardio: Rate: regular rate Rhythm: regular rhythm GI: Inspection: non-distended Neuro: Cranial nerves: Yes Equal, round and reactive pupils present Extrem: General: no edema Other: 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, no erythema, no fluctuance Objective Data Vital Signs Vital Signs: Vital Signs - 24 hr 12/08/24 08:00 12/08/24 08:00 12/08/24 12:00 Temperature Pulse Rate 96 100 Respiratory Rate Blood Pressure Pulse Oximetry Oxygen Delivery Room Air 12/08/24 13:55 12/08/24 16:00 12/08/24 16:29 Temperature 98.3 F Pulse Rate 102 H 101 H Respiratory Rate 16 Blood Pressure 158/65 H 162/68 H Pulse Oximetry 100 Oxygen Delivery 12/08/24 20:00 12/08/24 20:12 12/08/24 20:28 Temperature 98.8 F Pulse Rate 98 97 Respiratory Rate 20 Blood Pressure 156/65 H Pulse Oximetry 99 Oxygen Delivery Room Air 12/09/24 00:00 12/09/24 04:00 12/09/24 05:49 Temperature 98.3 F Pulse Rate 95 79 100 Respiratory Rate 20 Blood Pressure 159/73 H Pulse Oximetry 95 Oxygen Delivery Intake/Output Intake/Output: Intake & Output 12/06/24 12/07/24 12/08/24 12/09/24 23:59 23:59 23:59 23:59 Intake Total 3010.5 1520 1790 450 Output Total 1600 1900 2050 800 Balance 1410.5 -380 -260 -350 Meds/Results Medications: Active Medications Generic Name Dose Route Start Last Admin Trade Name Freq PRN Reason Stop Dose Admin Acetaminophen 650 mg 12/01/24 22:35 12/08/24 20:35 Acetaminophen 325 Mg Tablet PO 650 mg Q4H PRN Administration Mild Pain (1-3) or Fever Dextrose 12.5 gm 12/02/24 09:48 Dextrose 50% 25 Gm/50 Ml Syringe IV PUSH PRN PRN Hypoglycemia Protocol Docusate Sodium 100 mg 12/07/24 21:00 12/08/24 20:36 Docusate Sodium 100 Mg Capsule PO 100 mg Q12HR VU Administration Doxazosin Mesylate 4 mg 12/02/24 21:00 12/08/24 20:35 Doxazosin Mesylate 4 Mg Tablet PO 4 mg QHS VU Administration Finasteride 5 mg 12/02/24 09:00 12/08/24 08:20 Finasteride 5 Mg Tablet PO 5 mg DAILY VU Administration Fluticasone Propionate 2 spray 12/02/24 03:58 Fluticasone Propionate 0.05% Na Spr 16 Gm Btl (*Bkc) NASAL DAILY PRN allergy symptoms Glucose 15 gm 12/02/24 09:48 Glucose Oral Gel 15 Gm Of Glucse In 37.5 Gm Tube PO PRN PRN Hypoglycemia Protocol Hydromorphone HCl 0.5 mg 12/08/24 17:55 12/09/24 06:40 Hydromorphone Hcl Inj (*Crx) 1 Mg/Ml Syr IV PUSH 0.5 mg Q4H PRN Administration Pain Rated 7-10 Dextrose 1,000 mls @ 100 mls/hr 12/02/24 09:48 Dextrose 5% 1,000 Ml IVPB PRN PRN Hypoglycemia Protocol Ampicillin Sodium 2 gm/ Sodium 100 mls @ 200 mls/hr 12/06/24 13:05 12/09/24 06:59 Chloride IVPB Infused Q6HR VU Infusion Ceftriaxone Sodium 2 gm/ 100 mls @ 200 mls/hr 12/06/24 14:00 12/09/24 02:48 Sodium Chloride IVPB Infused Q12H VU Infusion Morphine Sulfate 15 mg 12/02/24 09:47 12/09/24 00:06 Morphine Sulfate (*Crx) 15 Mg Tab Ir PO 15 mg Q8H PRN Administration SEVERE PAIN Ondansetron HCl 4 mg 12/01/24 22:35 Ondansetron Inj 4 Mg/2 Ml Vial IV PUSH Q4H PRN Nausea Pantoprazole Sodium 40 mg 12/02/24 09:50 12/08/24 08:20 Pantoprazole 40 Mg Tablet PO 40 mg QAM VU Administration Radiology Results: ITS Impressions Chest X-Ray 12/01/24 21:09 IMPRESSION: No acute cardiopulmonary process. Head CT 12/01/24 21:34 IMPRESSION: No acute intracranial process. CT findings that may represent acute right maxillary sinusitis in the appro priate clinical context. Chest/Abdomen/Pelvis CT 12/01/24 21:35 IMPRESSION: No acute finding in the chest. Mild cardiomegaly. CT findings suggestive of pulmonary hypertension. Persistent soft tissue density material and stranding in the gallbladder fossa, likely representing resolving postinfectious/postsurgical change. 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 Recommend MRI of the abdomen without contrast for further evaluation. Pelvis CT 12/08/24 11:31 IMPRESSION: 1. Lag screw fixation at the proximal right femur presumably for old healed fracture. No acute osseous abnormality. 2. Severe lower lumbar spondylosis. Knee CT 12/08/24 13:19 IMPRESSION: 1. Nonspecific large right knee joint effusion. Given the presence of bacteremia and knee pain would recommend diagnostic arthrocentesis. 2. 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 Labs Labs: Laboratory Results - last 24 hr 12/09/24 04:34 WBC 10.2 H RBC 2.64 L Hgb 7.2 L Hct 24.5 L MCV 92.8 MCH 27.3 MCHC 29.4 L RDW 16.1 H Plt Count 412 H MPV 8.8 Sodium 133 L Potassium 4.8 Chloride 105 Carbon Dioxide 24 Anion Gap 4 BUN 21 H Creatinine 1.28 Estim Creat Clear Calc 41 Estimated GFR 53 L Glucose 115 H Calcium 8.8 Total Bilirubin 0.2 AST 107 H ALT 73 H Alkaline Phosphatase 110 Total Protein 5.8 L Albumin 2.5 L Hospitalist [facility] Advance Care Plan I have confirmed that the patient's Advanced Care Plan is present, code status is documented, or surrogate decision maker is listed in patient medical record.: Yes Medication Reconciliation I have utilized all available resources to obtain, update and review the patients current medications (includes all prescriptions, OTC, herbals, cannabis , and nutritional supplements).: Yes
[2024-12-09] MEDS: PANTOPRAZOLE 40 MG TABLET PO (09:00)
[2024-12-09] MEDS: FINASTERIDE 5 MG TABLET PO (09:00)
[2024-12-09] MEDS: DOCUSATE SODIUM 100 MG CAPSULE PO ×2 (09:00→20:36)
[2024-12-09] MEDS: ACETAMINOPHEN 325 MG TABLET 650 MG PO (12:34)
[2024-12-09] MEDS: MELATONIN 3 MG TABLET PO (20:36)
[2024-12-09] MEDS: DOXAZOSIN MESYLATE 4 MG TABLET PO (20:36)
[2024-12-10] VITALS (10 sets, daily range): BP systolic 138–152; BP diastolic 60–67; PULSE 88–110; RESP 16–18; TEMP 36.6–36.9; O2SAT 95–98
[2024-12-10] MEDS: ACETAMINOPHEN 325 MG TABLET 650 MG PO ×2 (00:05→11:28)
[2024-12-10] MEDS: MORPHINE SULFATE (*CRX) 15 MG TAB IR PO ×3 (01:08→21:38)
[2024-12-10] MEDS: AMPICILLIN SODIUM 2 GM in SODIUM CHLORIDE 0.9% IV 100 ML 200 ML IVPB ×5 (01:09→23:43)
[2024-12-10] MEDS: cefTRIAXone 2 GM in SODIUM CHLORIDE 0.9% IV 100 ML 200 ML IVPB ×2 (01:41→14:42)
[2024-12-10] MEDS: HYDROmorphone HCL INJ (*CRX) 1 MG/ML SYR 0.5 MG IV PUSH ×2 (05:24→09:26)
--- NOTE | 2024-12-10 07:15 | PM.IMPN ---
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(s): Z79.01 - group home (current) use of anticoagulants Status: Acute Assessment and Plan: Hold Eliquis due to anemia possibly pancreatic head hematoma Peroneal vein DVT (2) Type 2 diabetes mellitus with hyperglycemia, without long-term current use of insulin: Code(s): E11.65 - Type 2 diabetes mellitus with hyperglycemia Status: Chronic Assessment and Plan: SSI Hypoglycemia protocol (3) Acute anemia: Code(s): D64.9 - Anemia, unspecified Status: Acute Assessment and Plan: -Possible delayed intramural duodenal bleed following the relatively recent ERCP vs Discussed with radiologist who agrees the possibility of hematoma in pancreas head -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 -Pending outpatient endoscopic ultrasound at [facility] -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 could be infected and source. -With recent cholecystectomy and manipulation of the biliary tract September 2024. 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 could be infected and source. With recent cholecystectomy and manipulation of the biliary tract September 2024. Consulted Ortho for right knee swelling and possible aspiration Subjective Date/time seen: 12/10/24 07:15 Interval history: Brief HPI: Patient was admitted on 12/01/2024. Patient had prolonged hospitalization recently in [place] where he underwent cholecystectomy and manipulation of the biliary track September 2024. He was admitted due to anemia and possible infection. GI evaluated the patient and scheduled endoscopic ultrasound for further management of pancreatic head mass versus hematoma in the CT scan. Patient hemoglobin is stable and received PRBC during this hospitalization. Unfortunately the multiple repeat blood culture shows Enterococcus faecalis. Transesophageal echocardiogram negative for infective endocarditis. Infectious Disease requested right CT hip and knee to rule out possible infectious source. Consulted Orthopedics for her right knee aspiration. 12/10/2024:Reviewed CT scan of the the right knee and hip. Consulted Orthopedics for possible aspiration of the right knee to identify the infectious source. Patient has a multiple repeat Enterococcus faecalis in blood. Review of Systems Review of Systems: As reviewed above in HPI All systems reviewed & are unremarkable except as noted in HPI and below (Subjective) Constitutional: Constitutional: Reports as per HPI, Denies chills, Reports fatigue and Denies fever(s) ENT: Denies dizziness Cardiovascular: Cardiovascular: Reports as per HPI, Denies chest pain, Denies syncope, Denies irregular heart rhythm and Denies dyspnea Respiratory: Respiratory: Reports as per HPI and Denies dyspnea Gastrointestinal: Gastrointestinal: Reports as per HPI and Denies abdominal pain Genitourinary: Genitourinary: Reports as per HPI and Denies dysuria Musculoskeletal: Musculoskeletal: Reports as per HPI Neurologic: Reports as per HPI, Denies dizziness and Denies syncope Endocrine: Endocrine: Reports fatigue Exam Narrative: GENERAL: Ill-appearing, tachycardic, febrile HEAD: Normocephalic EYES: Pupils equal and reactive ENT: Nares clear, no rhinorrhea or epistaxis. Mucous membranes moist. NECK: Supple. CHEST: Clear to auscultation, no respiratory distress or tachypnea HEART: [Regular rate and rhythm]. No murmur heard. [Normal peripheral pulses.] ABDOMEN: [Soft, nondistended], tender to palpation, [No rigidity or guarding] EXTREMITIES: Normal range of motion. No edema Pain reproduced with any range of motion of his extremities SKIN: Warm, dry, no rash. NEURO: Able to move his extremities, alert oriented x1, confused and repeats answers to questions, slow to respond to questioning, no facial asymmetry slurring of his speech Const: General: comfortable and no acute distress Nutritional Appearance: obese Orientation/consciousness: oriented to person, oriented to place and oriented to time HENMT: Mouth: Yes moist mucous membranes Eyes: Pupils: Equal, round and reactive pupils present Neck: Neck: supple Resp: Effort & Inspection: normal respiratory effort Auscultation: clear to auscultation bilaterally Cardio: Rate: regular rate Rhythm: regular rhythm Heart sounds: no murmurs Peripheral pulses: dorsalis pedis present GI: Inspection: non-distended Neuro: General: oriented to person, oriented to place and oriented to time Cranial nerves: Yes Equal, round and reactive pupils present Extrem: General: no edema Right lower extremity: no edema Left lower extremity: no edema Other: 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, no erythema, no fluctuance Objective Data Vital Signs Vital Signs: Vital Signs - 24 hr 12/09/24 08:00 12/09/24 08:00 12/09/24 08:57 Temperature Pulse Rate 101 H 109 H Respiratory Rate Blood Pressure 157/60 H Pulse Oximetry 99 Oxygen Delivery Room Air 12/09/24 11:40 12/09/24 12:00 12/09/24 13:47 Temperature 98.6 F Pulse Rate 96 102 H 104 H Respiratory Rate 18 Blood Pressure 170/74 H 156/68 H Pulse Oximetry 99 99 Oxygen Delivery 12/09/24 16:00 12/09/24 20:00 12/09/24 20:28 Temperature Pulse Rate 97 93 Respiratory Rate Blood Pressure Pulse Oximetry Oxygen Delivery Room Air 12/09/24 20:32 12/10/24 00:00 12/10/24 04:00 Temperature 98.5 F Pulse Rate 96 106 H 88 Respiratory Rate 16 Blood Pressure 162/71 H Pulse Oximetry 99 Oxygen Delivery 12/10/24 05:02 Temperature 98 F Pulse Rate 88 Respiratory Rate 16 Blood Pressure 152/67 H Pulse Oximetry 98 Oxygen Delivery Intake/Output Intake/Output: Intake & Output 12/07/24 12/08/24 12/09/24 12/10/24 23:59 23:59 23:59 23:59 Intake Total 1520 1790 2766 800 Output Total 1900 2050 2050 900 Balance -380 -260 716 -100 Meds/Results Medications: Active Medications Generic Name Dose Route Start Last Admin Trade Name Freq PRN Reason Stop Dose Admin Acetaminophen 650 mg 12/01/24 22:35 12/10/24 00:05 Acetaminophen 325 Mg Tablet PO 650 mg Q4H PRN Administration Mild Pain (1-3) or Fever Dextrose 12.5 gm 12/02/24 09:48 Dextrose 50% 25 Gm/50 Ml Syringe IV PUSH PRN PRN Hypoglycemia Protocol Docusate Sodium 100 mg 12/07/24 21:00 12/09/24 20:36 Docusate Sodium 100 Mg Capsule PO 100 mg Q12HR VU Administration Doxazosin Mesylate 4 mg 12/02/24 21:00 12/09/24 20:36 Doxazosin Mesylate 4 Mg Tablet PO 4 mg QHS VU Administration Finasteride 5 mg 12/02/24 09:00 12/09/24 09:00 Finasteride 5 Mg Tablet PO 5 mg DAILY VU Administration Fluticasone Propionate 2 spray 12/02/24 03:58 Fluticasone Propionate 0.05% Na Spr 16 Gm Btl (*Bkc) NASAL DAILY PRN allergy symptoms Glucose 15 gm 12/02/24 09:48 Glucose Oral Gel 15 Gm Of Glucse In 37.5 Gm Tube PO PRN PRN Hypoglycemia Protocol Hydromorphone HCl 0.5 mg 12/08/24 17:55 12/10/24 05:24 Hydromorphone Hcl Inj (*Crx) 1 Mg/Ml Syr IV PUSH 0.5 mg Q4H PRN Administration Pain Rated 7-10 Dextrose 1,000 mls @ 100 mls/hr 12/02/24 09:48 Dextrose 5% 1,000 Ml IVPB PRN PRN Hypoglycemia Protocol Ampicillin Sodium 2 gm/ Sodium 100 mls @ 200 mls/hr 12/06/24 13:05 12/10/24 05:55 Chloride IVPB Infused Q6HR VU Infusion Ceftriaxone Sodium 2 gm/ 100 mls @ 200 mls/hr 12/06/24 14:00 12/10/24 02:11 Sodium Chloride IVPB Infused Q12H VU Infusion Melatonin 3 mg 12/09/24 21:00 12/09/24 20:36 Melatonin 3 Mg Tablet PO 3 mg HS VU Administration Morphine Sulfate 15 mg 12/02/24 09:47 12/10/24 01:08 Morphine Sulfate (*Crx) 15 Mg Tab Ir PO 15 mg Q8H PRN Administration SEVERE PAIN Ondansetron HCl 4 mg 12/01/24 22:35 Ondansetron Inj 4 Mg/2 Ml Vial IV PUSH Q4H PRN Nausea Pantoprazole Sodium 40 mg 12/02/24 09:50 12/09/24 09:00 Pantoprazole 40 Mg Tablet PO 40 mg QAM VU Administration Radiology Results: ITS Impressions Chest X-Ray 12/01/24 21:09 IMPRESSION: No acute cardiopulmonary process. Head CT 12/01/24 21:34 IMPRESSION: No acute intracranial process. CT findings that may represent acute right maxillary sinusitis in the appropriate clinical context. Chest/Abdomen/Pelvis CT 12/01/24 21:35 IMPRESSION: No acute finding in the chest. Mild cardiomegaly. CT findings suggestive of pulmonary hypertension. Persistent soft tissue density material and stranding in the gallbladder fossa, likely representing resolving postinfectious/postsurgical change. 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 Recommend MRI of the abdomen without contrast for further evaluation. Pelvis CT 12/08/24 11:31 IMPRESSION: 1. Lag screw fixation at the proximal right femur presumably for old healed fracture. No acute osseous abnormality. 2. Severe lower lumbar spondylosis. Knee CT 12/08/24 13:19 IMPRESSION: 1. Nonspecific large right knee joint effusion. Given the presence of bacteremia and knee pain would recommend diagnostic arthrocentesis. 2. 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 Hospitalist MIPS Advance Care Plan I have confirmed that the patient's Advanced Care Plan is present, code status is documented, or surrogate decision maker is listed in patient medical record.: Yes Medication Reconciliation I have utilized all available resources to obtain, update and review the patients current medications (includes all prescriptions, OTC, herbals, cannabis, and nutritional supplements).: Yes
[2024-12-10] MEDS: PANTOPRAZOLE 40 MG TABLET PO (08:55)
[2024-12-10] MEDS: DOCUSATE SODIUM 100 MG CAPSULE PO ×2 (08:55→20:55)
[2024-12-10] MEDS: FINASTERIDE 5 MG TABLET PO (08:55)
--- NOTE | 2024-12-10 12:09 | P.CONOP_ITS ---
<Statement entered by Andrea Talley MD - 12/10/24 14:47> [place]: Patient seen and examined. Chart reviewed. CT scan shows right knee effusion. Orthopedic consult reviewed and agree with assessment and plan. Right knee aspirate with 45 cc of fluid. Await lab results. Assessment and Plan Assessment and plan (1) Mass of head of pancreas: Code(s): K86.89 - Other specified diseases of pancreas <Janae R. Eddi, ELECTRONIC SECURITY TECHNICIAN - Last Filed: 12/10/24 13:38> Status: Acute <Janae R. Eddi, ELECTRONIC SECURITY TECHNICIAN - Last Filed: 12/10/24 13:38> (2) Anemia requiring transfusions: Code(s): D64.9 - Anemia, unspecified <Janae R. Eddi, ELECTRONIC SECURITY TECHNICIAN - Last Filed: 12/10/24 13:38> Status: Acute <Janae R. Eddi, ELECTRONIC SECURITY TECHNICIAN - Last Filed: 12/10/24 13:38> (3) Leukocytosis: Qualifiers: Leukocytosis type: leukemoid reaction Qualified Code(s): D 72.823 - Leukemoid reaction <Janae R. Eddi, ELECTRONIC SECURITY TECHNICIAN - Last Filed: 12/10/24 13:38> Code(s): D72.829 - Elevated white blood cell count, unspecified <Janae R. Eddi, ELECTRONIC SECURITY TECHNICIAN - Last Filed: 12/10/24 13:38> Status: Acute <Janae R. Eddi, ELECTRONIC SECURITY TECHNICIAN - Last Filed: 12/10/24 13:38> (4) Bacteremia: Code(s): R78.81 - Bacteremia <Janae R. Eddi, ELECTRONIC SECURITY TECHNICIAN - Last Filed: 12/10/24 13:38> Status: Acute <Janae R. Eddi, ELECTRONIC SECURITY TECHNICIAN - Last Filed: 12/10/24 13:38> (5) Sepsis: Code(s): A41.9 - Sepsis, unspecified organism <Janae R. Eddi, ELECTRONIC SECURITY TECHNICIAN - Last Filed: 12/10/24 13:38> Status: Acute <Jaane R. Eddi, ELECTRONIC SECURITY TECHNICIAN - Last Filed: 12/10/24 13:38> (6) Effusion of knee joint right: Code(s): M25.461 - Effusion, right knee <ERAN Gold - Last Filed: 12/10/24 13:38> Status: Acute <ERAN Gold - Last Filed: 12/10/24 13:38> Assessment and Plan: CT scan of the right knee revealed a nonspecific large right knee joint effusion. Given the presence of bacteremia, Infectious Disease requested further evaluation for possible diagnostic arthrocentesis. Patient does note trauma to the right knee several weeks ago. CT scan does also reveal underlying severe degenerative changes. Discussed condition, nature, etiology course of natural history. Conservative and operative treatment options reviewed as well the risks and benefits of each. Recommended aspiration of the right knee joint at this time for further evaluation. Patient agreeable. Consent obtained. See procedure note for details. 45 mL of serosanguineous fluid which was mildly cloudy in nature aspirated for evaluation. To note, fluid noted both pre patella and in the knee joint space. Gram stain negative for organisms, many WBC seen. Will determine further plan of care pending synovial fluid analysis. <ERAN Gold - Last Filed: 12/10/24 13:38> (7) Degenerative joint disease of knee: Code(s): M17.9 - Osteoarthritis of knee, unspecified <ERAN Gold - Last Filed: 12/10/24 13:38> Status: Acute <ERAN Gold - Last Filed: 12/10/24 13:38> Assessment and Plan: Severe degenerative changes noted on CT scan. <ERAN Gold - Last Filed: 12/10/24 13:38> Assessment and Plan: Reviewed history, exam, radiographs and current labs with attending MD and covering surgeon, Dr. Talley, who agrees with current plan as indicated above. No further recommendations from Dr. Talley at this time. <ERAN Gold - Last Filed: 12/10/24 13:38> History of Present Illness HPI Consult date: 12/10/24 <ERAN Gold - Last Filed: 12/10/24 13:38> 12/10/24 <Andrea Talley MD - Last Filed: 12/10/24 14:51> Chief complaint: Sepsis, acute anemia, pancreatic anomaly <ERAN Gold - Last Filed: 12/10/24 13:38> Narrative: 89-year-old male initially admitted on 12/01/2024 due to anemia and bacteremia. He has been managed and followed by the hospitalist service and GI due to a recent cholecystectomy and manipulation of the biliary tract in September 2024. Infectious disease is following. A right hip CT and knee CT were ordered to rule out possible infectious source. The right knee CT revealed a nonspecific large right knee joint effusion. Underlying severe tricompartmental osteoarthritis is noted as well. The right hip CT revealed severe lower lumbar spondylosis and a lag screw fixation of the proximal right femur from a previous healed fracture. No acute osseous abnormality or signs of infection. Orthopedic consult requested for possible aspiration of the right knee to rule out source of bacteremia. 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 URI (upper respiratory infection) Preoperative clearance History of colon polyps Dupuytren's contracture of right hand Pre-operative clearance Trigger finger, right middle finger Iron deficiency anemia Low back pain radiating to left leg Type II diabetes mellitus with renal manifestations Essential hypertension, benign Mixed hyperlipidemia Bilateral inguinal hernia Small fat containing bilateral inguinal hernias noted on CT 09/30/2024 Hepatic steatosis Chronic pain GERD (gastroesophageal reflux disease) Dyslipidemia BPH (benign prostatic hyperplasia) Type 2 diabetes mellitus Hypertension Hyperlipidemia Chronic kidney disease Heart failure 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 moderate mitral valve regurgitation <ERAN Gold - Last Filed: 12/10/24 13:38> Surgical History Surgical History: Surgical History History of repair of right rotator cuff (~07/05/14) Subacromial Decompression; Limited Debridement Status post cataract extraction of both eyes with insertion of intraocular lens 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) History of appendectomy History of right hemicolectomy (2008) Status post open reduction with internal fixation of fracture Right femur History of permanent cardiac pacemaker placement Biotronik dual chamber pacemaker MRI safe <ERAN Gold - Last Filed: 12/10/24 13:38> Family History Family History: Family History Father Chronic kidney disease Cerebrovascular accident Heart disease Mother Carcinoma of colon Mother Carcinoma of colon Father Patient's father is <ERAN Gold - Last Filed: 12/10/24 13:38> Social History Social History: Social History Social History: The patient lives with his of he he 19 years. He has 3 children. He is a retired [employer]. He he is a lifelong nonsmoker and does not drink alcohol or use illicit substances. He ambulates with a walker. Code status: Full code (he states he would not want long-term intubation or feeding tube) Surrogate decision maker: Nallely () Smoking status: Never smoker Second hand tobacco smoke exposure: No Alcohol intake: never Substance use: never Do You Feel Safe in your Home?: Yes Lack of Transportation: No Lack of Food: Never True Current Housing: I Have Housing Concerned About Future Housing: No Difficulty Paying Gas/Electric Bills: No Difficulty Paying for Meds: No Currently Unemployed: No Education: Don't Know Difficulty w/ Childcare or Family Care: No Living arrangements: with family Gender identity (if verbalized by the patient): Male Spiritual care concerns: No <ERAN Gold - Last Filed: 12/10/24 13:38> Meds Home Medications and Allergies Home medications: Home Medications ?Medication ?Instructions ?Recorded ?Confirmed ?Type furosemide 40 mg tablet See Rx Instructions .Route 08/02/24 12/02/24 Rx .COMPLEX #180 tabs doxazosin 4 mg tablet (Cardura) 4 mg PO QHS #30 tabs 08/08/24 12/02/24 Rx clopidogrel 75 mg tablet (Plavix) 75 mg PO DAILY 09/30/24 12/02/24 History docusate sodium 100 mg capsule 100 mg PO DAILY 09/30/24 12/02/24 History (Colace) fluticasone propionate 50 2 spray intranasal DAILY PRN 09/30/24 12/02/24 History mcg/actuation nasal allergy symptoms spray,suspension (Flonase Allergy Relief) metolazone 5 mg tablet 5 mg PO DAILY 09/30/24 12/02/24 History verapamil 120 mg tablet 120 mg PO DAILY 09/30/24 12/02/24 History Saccharomyces boulardii 250 mg 250 mg PO BID #60 caps 10/24/24 12/02/24 Rx capsule (Florastor) apixaban 5 mg tablet (Eliquis) 5 mg PO Q12HR #60 tabs 10/24/24 12/02/24 Rx pantoprazole 40 mg tablet,delayed 40 mg PO QAM #40 tabs 10/24/24 12/02/24 Rx release polyethylene glycol 3350 17 gram 17 g PO QAM #14 ea 10/24/24 12/02/24 Rx oral powder packet (Miralax) ezetimibe 10 mg tablet (Zetia) 10 mg PO DAILY #90 tabs 10/30/24 12/02/24 Rx famotidine 20 mg tablet (Acid 20 mg PO BID #180 tabs 10/30/24 12/02/24 Rx Controller) finasteride 5 mg tablet 5 mg PO DAILY #90 tabs 10/30/24 12/02/24 Rx pioglitazone 15 mg tablet (Actos) 15 mg PO DAILY #90 tabs 10/30/24 12/02/24 Rx methocarbamol 750 mg tablet 750 mg PO TID PRN muscle spasm #30 11/06/24 12/02/24 Rx tabs prednisone 20 mg tablet 40 mg (2 x 20 mg) PO DAILY 4 days 11/06/24 12/02/24 Rx #8 tabs morphine 15 mg immediate release 15 mg PO Q8H PRN pain #80 tabs 11/20/24 12/02/24 Rx tablet <Janae Montague, ERAN - Last Filed: 12/10/24 13:38> Allergies/Adverse reactions: Allergies Allergy/AdvReac Type Severity Reaction Status Date / Time atorvastatin Allergy Unknown myalgia Verified 12/01/24 19:32 rosuvastatin Allergy Unknown myalgia Verified 12/01/24 19:32 <ZENON GoldP - Last Filed: 12/10/24 13:38> Vital Signs Vital Signs - 24 hr 12/09/24 13:47 12/09/24 16:00 12/09/24 20:00 Temperature 37.0 C Pulse Rate 104 H 97 93 Respiratory Rate 18 Blood Pressure 156/68 H Pulse Oximetry 99 Oxygen Delivery 12/09/24 20:28 12/09/24 20:32 12/10/24 00:00 Temperature 36.9 C Pulse Rate 96 106 H Respiratory Rate 16 Blood Pressure 162/71 H Pulse Oximetry 99 Oxygen Delivery Room Air 12/10/24 04:00 12/10/24 05:02 12/10/24 10:40 Temperature 36.6 C Pulse Rate 88 88 Respiratory Rate 16 Blood Pressure 152/67 H Pulse Oximetry 98 Oxygen Delivery Room Air <ZENON GoldP - Last Filed: 12/10/24 13:38> Exam 2 Const: General: comfortable and no acute distress <ZENON GoldP - Last Filed: 12/10/24 13:38> HENMT: Mouth: Yes moist mucous membranes <ZENON GoldP - Last Filed: 12/10/24 13:38> Eyes: General: appearance normal, both eyes and all related structures < ZENON GoldP - Last Filed: 12/10/24 13:38> Neck: Neck: supple and no JVD <ZENON GlodP - Last Filed: 12/10/24 13:38> Resp: Effort & Inspection: normal respiratory effort <ZENON GoldP - Last Filed: 12/10/24 13:38> GI: Inspection: non-distended <ZENON GoldP - Last Filed: 12/10/24 13:38> Neuro: General: gait normal <ZENON GoldP - Last Filed: 12/10/24 13:38> Cognition (Neuro): normal cognition <ERAN Gold - Last Filed: 12/10/24 13:38> Speech: normal speech <ZENON GoldP - Last Filed: 12/10/24 13:38> Extrem: Right lower extremity: knee Details: tenderness ( Diffuse), swelling ( large nonspecific joint effusion, prepatellar swelling) Location: of the patella and of the pre-patellar area, abnormal ROM Details: pain with active ROM during Details: in extension and in flexion and pain with passive ROM during Details: in extension and in flexion, deformity ( joint swelling) Location: of the knee and warmth ( mild, no redness); no lacerations, no ecchymosis and no crepitus <ERAN Gold - Last Filed: 12/10/24 13:38> Left lower extremity: knee Details: tenderness ( diffuse), swelling ( mild joint effusion) and normal ROM <ZENON GoldP - Last Filed: 12/10/24 13:38> Psych: Mental Status: mental status grossly normal <ERAN Gold - Last Filed: 12/10/24 13:38> Affect: normal affect <ERAN Gold - Last Filed: 12/10/24 13:38> Results Labs Result Diagrams: 12/09/24 04:34 12/09/24 04:34 <ERAN Gold - Last Filed: 12/10/24 13:38> Labs: H & H 12/01/24 12/02/24 12/02/24 Range/Units 19:23 06:22 10:12 Hgb 5.2 L* D 7.0 L 7.6 L (14.0-18.0) g/dL Hct 17.3 L* 24.0 L 24.5 L (42.0-52.0) % 12/02/24 12/03/24 12/03/24 Range/Units 20:04 03:46 12:58 Hgb 7.0 L 7.0 L 7.2 L (14.0-18.0) g/dL Hct 22.2 L 22.1 L 22.5 L (42.0-52.0) % 12/04/24 12/04/24 12/06/24 Range/Units 04:13 12:43 04:12 Hgb 7.0 L 7.6 L 6.8 L* (14.0-18.0) g/dL Hct 23.3 L 25.0 L 22.8 L (42.0-52.0) % 12/06/24 12/07/24 12/08/24 Range/Units 13:30 13:00 04:37 Hgb 8.5 L 8.1 L 7.3 L (14.0-18.0) g/dL Hct 27.3 L 26.3 L 23.7 L (42.0-52.0) % 12/09/24 Range/Units 04:34 Hgb 7.2 L (14.0-18.0) g/dL Hct 24.5 L (42.0-52.0) % Coagulation 12/01/24 Range/Units 19:23 INR 1.3 All other labs normal. <ERAN Gold - Last Filed: 12/10/24 13:38> Joint Aspiration & Injection Pre-Procedure Pre-procedure care: Consent was obtained, Procedures/risks were explained, Questions were answered, Correct patient identified and Correct side and site confirmed <ERAN Gold - Last Filed: 12/10/24 13:38> Post Procedure Patient tolerated the procedure well?: Tolerated procedure well <ERAN Gold - Last Filed: 12/10/24 13:38> Position Position: Laying <ERAN Gold - Last Filed: 12/10/24 13:38> Location: right <ERAN Gold - Last Filed: 12/10/24 13:38> Site Prepped Technique: povidone-iodine and alcohol <ERAN Gold - Last Filed: 12/10/24 13:38> Anesthetic: lidocaine 1% plain <ERAN Gold - Last Filed: 12/10/24 13:38> Fluid: Serosanguinous <ERAN Gold - Last Filed: 12/10/24 13:38> Fluid Withdrawn (mL): 45 <ERAN Gold - Last Filed: 12/10/24 13:38> Sterile Dressing Sterile Dressing: Adhesive <ERAN Gold - Last Filed: 12/10/24 13:38> KNEE Knee Procedure: lateral joint line Manual palpation and prepatellar bursa Manual palpation <ERAN Gold - Last Filed: 12/10/24 13:38>
[2024-12-10 12:41] LABS: Color Synovial Fluid Red (Colorless); Lymphocytes Synovial Fluid 2 %; Neutrophils Synovial Fluid 98 % (0-25); Source Synovial Fluid Rt Knee Syn Fluid
--- NOTE | 2024-12-10 13:52 | PCPTNOTE ---
Attempted to see patient for PT, however RN advised not to see patient due to patient having too much pain and patient reported increase pain after working with OT this date.
--- NOTE | 2024-12-10 16:25 | P.PNINF_ITS ---
Progress Note: A&P Assessment and Plan (1) Fever: Code(s): R50.9 - Fever, unspecified Status: Acute Plan #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 Patient presenting with decreased hemoglobin. Right lower quadrant pain versus hip pain. 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 ADOLFO negative 12/07 Assessing for right hip involvement versus right knee. Possible [place] joint septic arthritis of right knee based on a fusion with large neutrophil count. With new anemia of unclear etiology. 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 could be infected and source. With recent cholecystectomy and manipulation of the biliary tract September 2024. Gallbladder cultures positive for Enterococcus as well. #Pacemaker. #Right hip fracture. With pinning. No CHANA. #Right knee effusion. Rule out septic arthritis. Plan: Repeat blood cultures. Continue ampicillin and ceftriaxone. CT right hip and knee with pacemaker not compatible with MRI. Await right knee arthrocentesis culture. Anticipating at least 2 weeks of IV antibiotics with the possibility that pancreatic area could be source. No obvious area for drainage at this point. Has endoscopic ultrasound planned at [facility] However, if synovial aspirate positive for Enterococcus would extend treatment up to 4 weeks for [place] joint septic arthritis. Will follow-up radiographic workup and monitor for improvement in leg exam. . This was done via telemedicine with [facility] in [place] and with inpatient at [facility] in [place], [place]. With consent. HIPPA protected audiovisual interface. Subjective Date/time seen: 12/10/24 16:25 Interval history: 12/10/2024: Afebrile and without new complaints -- still complaining of right lower quadrant and right knee pain. Most recent blood cultures from 12/06 remain positive. Status post right knee aspiration. Fluid cell count could not be performed due to clotting but noted to have 98% neutrophils. Crystal exam negative. Review of Systems Review of Systems: Continues to complain of right lower quadrant and right knee pain although the latter has improved post synovial aspiration. Exam Const: General: comfortable and no acute distress Eyes: General: appearance normal, both eyes and all related structures Resp: Effort & Inspection: normal respiratory effort Skin: General skin exam: no rashes or lesions noted Psych: Mental Status: mental status grossly normal Objective Data Vital Signs Vital Signs: Vital Signs - 24 hr 12/09/24 20:00 12/09/24 20:28 12/09/24 20:32 Temperature 98.5 F Pulse Rate 93 96 Respiratory Rate 16 Blood Pressure 162/71 H Pulse Oximetry 99 Oxygen Delivery Room Air 12/10/24 00:00 12/10/24 04:00 12/10/24 05:02 Temperature 98 F Pulse Rate 106 H 88 88 Respiratory Rate 16 Blood Pressure 152/67 H Pulse Oximetry 98 Oxygen Delivery 12/10/24 10:40 12/10/24 12:59 12/10/24 14:00 Temperature 98.3 F Pulse Rate 91 Respiratory Rate 16 Blood Pressure 147/61 H 138/60 Pulse Oximetry 98 Oxygen Delivery Room Air Intake/Output Intake/Output: Intake & Output 12/07/24 12/08/24 12/09/24 12/10/24 23:59 23:59 23:59 23:59 Intake Total 1520 1790 2766 1400 Output Total 1900 2050 2050 900 Balance -380 -260 716 500 Meds/Results Medications: Active Medications Generic Name Dose Route Start Last Admin Trade Name Freq PRN Reason Stop Dose Admin Acetaminophen 650 mg 12/01/24 22:35 12/10/24 11:28 Acetaminophen 325 Mg Tablet PO 650 mg Q4H PRN Administration Mild Pain (1-3) or Fever Dextrose 12.5 gm 12/02/24 09:48 Dextrose 50% 25 Gm/50 Ml Syringe IV PUSH PRN PRN Hypoglycemia Protocol Docusate Sodium 100 mg 12/07/24 21:00 12/10/24 08:55 Docusate Sodium 100 Mg Capsule PO 100 mg Q12HR VU Administration Doxazosin Mesylate 4 mg 12/02/24 21:00 12/09/24 20:36 Doxazosin Mesylate 4 Mg Tablet PO 4 mg QHS VU Administration Finasteride 5 mg 12/02/24 09:00 12/10/24 08:55 Finasteride 5 Mg Tablet PO 5 mg DAILY VU Administration Fluticasone Propionate 2 spray 12/02/24 03:58 Fluticasone Propionate 0.05% Na Spr 16 Gm Btl (*Bkc) NASAL DAILY PRN allergy symptoms Glucose 15 gm 12/02/24 09:48 Glucose Oral Gel 15 Gm Of Glucse In 37.5 Gm Tube PO PRN PRN Hypoglycemia Protocol Hydromorphone HCl 0.5 mg 12/08/24 17:55 12/10/24 09:26 Hydromorphone Hcl Inj (*Crx) 1 Mg/Ml Syr IV PUSH 0.5 mg Q4H PRN Administration Pain Rated 7-10 Dextrose 1,000 mls @ 100 mls/hr 12/02/24 09:48 Dextrose 5% 1,000 Ml IVPB PRN PRN Hypoglycemia Protocol Ampicillin Sodium 2 gm/ Sodium 100 mls @ 200 mls/hr 12/06/24 13:05 12/10/24 11:27 Chloride IVPB 200 mls/hr Q6HR VU Administration Ceftriaxone Sodium 2 gm/ 100 mls @ 200 mls/hr 12/06/24 14:00 12/10/24 14:42 Sodium Chloride IVPB 200 mls/hr Q12H VU Administration Melatonin 3 mg 12/09/24 21:00 12/09/24 20:36 Melatonin 3 Mg Tablet PO 3 mg HS VU Administration Morphine Sulfate 15 mg 12/02/24 09:47 12/10/24 12:58 Morphine Sulfate (*Crx) 15 Mg Tab Ir PO 15 mg Q8H PRN Administration SEVERE PAIN Ondansetron HCl 4 mg 12/01/24 22:35 Ondansetron Inj 4 Mg/2 Ml Vial IV PUSH Q4H PRN Nausea Pantoprazole Sodium 40 mg 12/02/24 09:50 12/10/24 08:55 Pantoprazole 40 Mg Tablet PO 40 mg QAM VU Administration Radiology Results: ITS Impressions Chest X-Ray 12/01/24 21:09 IMPRESSION: No acute cardiopulmonary process. Head CT 12/01/24 21:34 IMPRESSION: No acute intracranial process. CT findings that may represent acute right maxillary sinusitis in the appropriate clinical context. Chest/Abdomen/Pelvis CT 12/01/24 21:35 IMPRESSION: No acute finding in the chest. Mild cardiomegaly. CT findings suggestive of pulmonary hypertension. Persistent soft tissue density material and stranding in the gallbladder fossa, likely representing resolving postinfectious/postsurgical change. 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 Recommend MRI of the abdomen without contrast for further evaluation. Pelvis CT 12/08/24 11:31 IMPRESSION: 1. Lag screw fixation at the proximal right femur presumably for old healed fracture. No acute osseous abnormality. 2. Severe lower lumbar spondylosis. Knee CT 12/08/24 13:19 IMPRESSION: 1. Nonspecific large right knee joint effusion. Given the presence of bacteremia and knee pain would recommend diagnostic arthrocentesis. 2. 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 Labs Labs: Laboratory Results - last 24 hr 12/10/24 11:46 Synovial Source Rt knee syn fluid Synovial Color Red Synovial Appearance Cloudy A Synovial RBC TNP Synovial Nuc Cells TNP Synovial Neutrophils 98 H Synovial Lymphocytes 2 Synovial Crystals None seen Blood cultures 12/06: Enterococcus faecalis Blood cultures 12/01: Enterococcus faecalis
[2024-12-10] MEDS: FLUTICASONE PROPIONATE 0.05% NA SPR 16 GM BTL (*BKC) 2 SPRAY NASAL (17:45)
[2024-12-10] MEDS: FUROSEMIDE INJ 40 MG/4 ML VIAL IV PUSH (18:11)
[2024-12-10] MEDS: DOXAZOSIN MESYLATE 4 MG TABLET PO (20:55)
[2024-12-10] MEDS: MELATONIN 3 MG TABLET PO (20:55)
[2024-12-11] VITALS (9 sets, daily range): BP systolic 135–151; BP diastolic 56–72; PULSE 79–101; RESP 16–18; TEMP 36.3–36.8; O2SAT 97–100
[2024-12-11] MEDS: cefTRIAXone 2 GM in SODIUM CHLORIDE 0.9% IV 100 ML 200 ML IVPB ×2 (01:08→13:52)
[2024-12-11] MEDS: HYDROmorphone HCL INJ (*CRX) 1 MG/ML SYR 0.5 MG IV PUSH ×3 (01:27→20:59)
[2024-12-11 05:23] LABS: Hematocrit 25.1 % (42.0-52.0); Hemoglobin 7.8 g/dL (14.0-18.0); Mean Corpuscular HGB Conc 31.1 g/dl (32-36); Mean Corpuscular Hemoglobin 28.1 pg (26-34); Mean Corpuscular Volume 90.3 fl (80-100); Platelet Count Result 421 k/mm3 (150-375); Red Blood Count 2.78 M/mm3 (4.6-6.20); White Blood Count 14.2 K/mm3 (4.5-10.0)
[2024-12-11] MEDS: FLUTICASONE PROPIONATE 0.05% NA SPR 16 GM BTL (*BKC) 2 SPRAY NASAL ×2 (05:44→10:22)
[2024-12-11] MEDS: AMPICILLIN SODIUM 2 GM in SODIUM CHLORIDE 0.9% IV 100 ML 200 ML IVPB ×3 (05:44→17:19)
[2024-12-11 05:54] LABS: Alanine Aminotransferase 55 U/L (6-50); Albumin Level 2.8 g/dL (3.5-5.1); Alkaline Phosphatase 101 U/L (38-126); Anion Gap 9 mmol/L (4-12); Aspartate Amino Transferase 63 U/L (17-59); Bilirubin,Total 0.7 mg/dL (0.2-1.3); Blood Urea Nitrogen 23 mg/dL (9-20); Calcium 8.8 mg/dL (8.4-10.2); Carbon Dioxide 21 mmol/L (22-30); Chloride 98 mmol/L (98-107); Estimated CRCL calculation 40 ml/min; Estimated Glomerular Filt Rate 53; Glucose 243 mg/dL (65-110); Potassium 5.5 mmol/L (3.4-5.0); Sodium 128 mmol/L (137-145); Total Protein 6.5 g/dL (6.3-8.2)
[2024-12-11] MEDS: PANTOPRAZOLE 40 MG TABLET PO (08:12)
[2024-12-11] MEDS: FINASTERIDE 5 MG TABLET PO (08:12)
[2024-12-11] MEDS: DOCUSATE SODIUM 100 MG CAPSULE PO ×2 (08:12→22:17)
[2024-12-11] MEDS: MORPHINE SULFATE (*CRX) 15 MG TAB IR PO ×2 (08:58→17:18)
--- NOTE | 2024-12-11 11:38 | P.PNIM_ITS ---
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 Status: Acute Assessment and Plan: Hold Eliquis due to anemia possibly pancreatic head hematoma Peroneal vein DVT (2) Type 2 diabetes mellitus with hyperglycemia, without long-term current use of insulin: Code(s): E11.65 - Type 2 diabetes mellitus with hyperglycemia Status: Chronic Assessment and Plan: SSI Hypoglycemia protocol (3) Acute anemia: Code(s): D64.9 - Anemia, unspecified Status: Acute Assessment and Plan: -Possible delayed intramural duodenal bleed following the relatively recent ERCP vs Discussed with radiologist who agrees the possibility of hematoma in pancreas head -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 -Pending outpatient endoscopic ultrasound at [facility] -Pancreatic head mass versus hematoma. could be infected and source. -With recent cholecystectomy and manipulation of the biliary tract September 2024. 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 could be infected and source. With recent cholecystectomy and manipulation of the biliary tract September 2024. Consulted Ortho for right knee swelling and possible aspiration Plan DVT prophylaxis on SCDs, AC on hold due to possible pancreatic head hematoma Subjective Date/time seen: 12/11/24 11:38 Interval history: Comfortable at bedside awaiting synovial fluid culture Review of Systems Review of Systems: As reviewed above in HPI All systems reviewed & are unremarkable except as noted in HPI and below (Subjective) Constitutional: Constitutional: Reports as per HPI, Denies chills, Reports fatigue and Denies fever(s) ENT: Denies dizziness Cardiovascular: Cardiovascular: Reports as per HPI, Denies chest pain, Denies syncope, Denies irregular heart rhythm and Denies dyspnea Respiratory: Respiratory: Reports as per HPI and Denies dyspnea Gastrointestinal: Gastrointestinal: Reports as per HPI and Denies abdominal pain Genitourinary: Genitourinary: Reports as per HPI and Denies dysuria Musculoskeletal: Musculoskeletal: Reports as per HPI Neurologic: Reports as per HPI, Denies dizziness and Denies syncope Endocrine: Endocrine: Reports fatigue Exam Narrative: GENERAL: Ill-appearing, tachycardic, febrile HEAD: Normocephalic EYES: Pupils equal and reactive ENT: Nares clear, no rhinorrhea or epistaxis. Mucous membranes moist. NECK: Supple. CHEST: Clear to auscultation, no respiratory distress or tachypnea HEART: [Regular rate and rhythm]. No murmur heard. [Normal peripheral pulses.] ABDOMEN: [Soft, nondistended], tender to palpation, [No rigidity or guarding] EXTREMITIES: Normal range of motion. No edema Pain reproduced with any range of motion of his extremities SKIN: Warm, dry, no rash. NEURO: Able to move his extremities, alert oriented x1, confused and repeats answers to questions, slow to respond to questioning, no facial asymmetry slurring of his speech Const: General: comfortable, no acute distress and obese Nutritional Appearance: obese Orientation/consciousness: oriented to person, oriented to place and oriented to time HENMT: Mouth: Yes moist mucous membranes Eyes: Pupils: Equal, round and reactive pupils present Neck: Neck: supple Resp: Effort & Inspection: normal respiratory effort Auscultation: clear to auscultation bilaterally Cardio: Rate: regular rate Rhythm: regular rhythm Heart sounds: no murmurs Peripheral pulses: dorsalis pedis present GI: Inspection: non-distended Neuro: General: oriented to person, oriented to place and oriented to time Cranial nerves: Yes Equal, round and reactive pupils present Extrem: General: no edema Right lower extremity: no edema Left lower extremity: no edema Other: 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, no erythema, no fluctuance Objective Data Vital Signs Vital Signs: Vital Signs - 24 hr 12/10/24 12:00 12/10/24 12:59 12/10/24 14:00 Temperature 98.3 F Pulse Rate 93 91 Respiratory Rate 16 Blood Pressure 147/61 H 138/60 Pulse Oximetry 98 Oxygen Delivery 12/10/24 16:00 12/10/24 19:24 12/10/24 20:00 Temperature 98.5 F Pulse Rate 95 110 H Respiratory Rate 18 Blood Pressure 152/65 H Pulse Oximetry 95 95 Oxygen Delivery Room Air 12/10/24 20:00 12/11/24 00:00 12/11/24 04:00 Temperature Pulse Rate 107 H 88 81 Respiratory Rate Blood Pressure Pulse Oximetry Oxygen Delivery 12/11/24 05:08 12/11/24 08:03 12/11/24 08:03 Temperature 97.4 F L Pulse Rate 87 79 79 Respiratory Rate 17 18 Blood Pressure 151/72 H Pulse Oximetry 97 97 Oxygen Delivery Room Air Intake/Output Intake/Output: Intake & Output 12/08/24 12/09/24 12/10/24 12/11/24 23:59 23:59 23:59 23:59 Intake Total 1790 2766 2290 250 Output Total 2050 0 3200 1900 Balance -260 347 -366 -7252 Meds/Results Medications: Active Medications Generic Name Dose Route Start Last Admin Trade Name Freq PRN Reason Stop Dose Admin Acetaminophen 650 mg 12/01/24 22:35 12/10/24 11:28 Acetaminophen 325 Mg Tablet PO 650 mg Q4H PRN Administration Mild Pain (1-3) or Fever Dextrose 12.5 gm 12/02/24 09:48 Dextrose 50% 25 Gm/50 Ml Syringe IV PUSH PRN PRN Hypoglycemia Protocol Docusate Sodium 100 mg 12/07/24 21:00 12/11/24 08:12 Docusate Sodium 100 Mg Capsule PO 100 mg Q12HR VU Administration Doxazosin Mesylate 4 mg 12/02/24 21:00 12/10/24 20:55 Doxazosin Mesylate 4 Mg Tablet PO 4 mg QHS VU Administration Finasteride 5 mg 12/02/24 09:00 12/11/24 08:12 Finasteride 5 Mg Tablet PO 5 mg DAILY VU Administration Fluticasone Propionate 2 spray 12/02/24 03:58 12/11/24 10:22 Fluticasone Propionate 0.05% Na Spr 16 Gm Btl (*Bkc) NASAL 2 spray DAILY PRN Administration allergy symptoms Glucose 15 gm 12/02/24 09:48 Glucose Oral Gel 15 Gm Of Glucse In 37.5 Gm Tube PO PRN PRN Hypoglycemia Protocol Hydromorphone HCl 0.5 mg 12/08/24 17:55 12/11/24 01:27 Hydromorphone Hcl Inj (*Crx) 1 Mg/Ml Syr IV PUSH 0.5 mg Q4H PRN Administration Pain Rated 7-10 Dextrose 1,000 mls @ 100 mls/hr 12/02/24 09:48 Dextrose 5% 1,000 Ml IVPB PRN PRN Hypoglycemia Protocol Ampicillin Sodium 2 gm/ Sodium 100 mls @ 200 mls/hr 12/06/24 13:05 12/11/24 05:44 Chloride IVPB 200 mls/hr Q6HR VU Administration Ceftriaxone Sodium 2 gm/ 100 mls @ 200 mls/hr 12/06/24 14:00 12/11/24 01:08 Sodium Chloride IVPB 200 mls/hr Q12H VU Administration Melatonin 3 mg 12/09/24 21:00 12/10/24 20:55 Melatonin 3 Mg Tablet PO 3 mg HS VU Administration Morphine Sulfate 15 mg 12/02/24 09:47 12/11/24 08:58 Morphine Sulfate (*Crx) 15 Mg Tab Ir PO 15 mg Q8H PRN Administration SEVERE PAIN Ondansetron HCl 4 mg 12/01/24 22:35 Ondansetron Inj 4 Mg/2 Ml Vial IV PUSH Q4H PRN Nausea Pantoprazole Sodium 40 mg 12/02/24 09:50 12/11/24 08:12 Pantoprazole 40 Mg Tablet PO 40 mg QAM VU Administration Radiology Results: ITS Impressions Chest X-Ray 12/01/24 21:09 IMPRESSION: No acute cardiopulmonary process. Head CT 12/01/24 21:34 IMPRESSION: No acute intracranial process. CT findings that may represent acute right maxillary sinusitis in the appropriate clinical context. Chest/Abdomen/Pelvis CT 12/01/24 21:35 IMPRESSION: No acute finding in the chest. Mild cardiomegaly. CT findings suggestive of pulmonary hypertension. Persistent soft tissue density material and stranding in the gallbladder fossa, likely representing resolving postinfectious/postsurgical change. 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 Recommend MRI of the abdomen without contrast for further evaluation. Pelvis CT 12/08/24 11:31 IMPRESSION: 1. Lag screw fixation at the proximal right femur presumably for old healed fracture. No acute osseous abnormality. 2. Severe lower lumbar spondylosis. Knee CT 12/08/24 13:19 IMPRESSION: 1. Nonspecific large right knee joint effusion. Given the presence of bacteremia and knee pain would recommend diagnostic arthrocentesis. 2. 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 Labs Labs: Laboratory Results - last 24 hr 12/10/24 12/11/24 11:46 04:39 WBC 14.2 H RBC 2.78 L Hgb 7.8 L Hct 25.1 L MCV 90.3 MCH 28.1 MCHC 31.1 L RDW 15.7 H Plt Count 421 H MPV 9.2 Sodium 128 L Potassium 5.5 H Chloride 98 Carbon Dioxide 21 L Anion Gap 9 BUN 23 H Creatinine 1.28 Estim Creat Clear Calc 40 Estimated GFR 53 L Glucose 243 H Calcium 8.8 Total Bilirubin 0.7 AST 63 H ALT 55 H Alkaline Phosphatase 101 Total Protein 6.5 Albumin 2.8 L Synovial Source Rt knee syn fluid Synovial Color Red Synovial Appearance Cloudy A Synovial RBC TNP Synovial Nuc Cells TNP Synovial Neutrophils 98 H Synovial Lymphocytes 2 Synovial Crystals None seen
[2024-12-11] MEDS: ACETAMINOPHEN 325 MG TABLET 650 MG PO (12:02)
--- NOTE | 2024-12-11 13:19 | PCOTNOTE ---
Patient reports he just got done with therapy and is to tired at this time. He needed to rest and didn't want to get all stirred up.
--- NOTE | 2024-12-11 14:23 | P.PNINF_ITS ---
Progress Note: A&P Assessment and Plan (1) Fever: Code(s): R50.9 - Fever, unspecified Status: Acute (2) Enterococcal bacteremia: Code(s): R78.81 - Bacteremia; B95.2 - Enterococcus as the cause of diseases classified elsewhere Status: Acute (3) Effusion of knee joint right: Code(s): M25.461 - Effusion, right knee Status: Acute (4) Elevated LFTs: Code(s): R79.89 - Other specified abnormal findings of blood chemistry Status: Acute (5) Leukocytosis: Qualifiers: Leukocytosis type: leukemoid reaction Qualified Code(s): D72.823 - Leukemoid reaction Code(s): D72.829 - Elevated white blood cell count, unspecified Status: Acute Plan #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 Patient presenting with decreased hemoglobin. Right lower quadrant pain versus hip pain. 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 ADOLFO negative 12/07 Assessing for right hip involvement versus right knee. Possible [place] joint septic arthritis of right knee based on a fusion with large neutrophil count. With new anemia of unclear etiology. 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 could be infected and source. -- With recent cholecystectomy and manipulation of the biliary tract September 2024. Gallbladder cultures positive for Enterococcus as well. #Pacemaker. #Right hip fracture. With pinning. No CHANA. #Right knee effusion. Rule out septic arthritis. #Mild transaminitis. May be associated with ceftriaxone use and will follow. Of Leukocytosis. May be secondary to Solu-Medrol dosed yesterday. Also with anemia and intermittent drop in Hemoglobin. Plan: Repeat blood cultures Pending. Continue ampicillin and ceftriaxone. Monitor liver enzymes while on ceftriaxone. Await right knee arthrocentesis culture. Anticipating at least 2 weeks of IV antibiotics with the possibility that pancreatic area could be source. No obvious area for drainage at this point. Has endoscopic ultrasound planned at [facility] . However, if synovial aspirate positive for Enterococcus would extend treatment up to 4 weeks for [place] joint septic arthritis. This was done via telemedicine with [facility] in [place] and with inpatient at [facility] in [place], [place]. With consent. HIPPA protected audiovisual interface. Subjective Date/time seen: 12/11/24 14:23 Interval history: Mr. Zuniga continues to feel better. He is afebrile and with stable vital signs. White blood cell count increased to 14.2 but he received single dose 60 mg Solu- Medrol yesterday. Also with intermittent drop in hemoglobin. Liver enzymes slightly elevated and will need to continue to monitor while receiving ceftriaxone and ampicillin. Repeat blood cultures are pending. Synovial aspiration culture pending. Review of Systems Review of Systems: All systems reviewed & are unremarkable except as noted in HPI and below Exam Const: General: comfortable and no acute distress Eyes: General: appearance normal, both eyes and all related structures Resp: Effort & Inspection: normal respiratory effort Skin: General skin exam: no rashes or lesions noted Psych: Mental Status: mental status grossly normal Objective Data Vital Signs Vital Signs: Vital Signs - 24 hr 12/10/24 16:00 12/10/24 19:24 12/10/24 20:00 Temperature 98.5 F Pulse Rate 95 110 H Respiratory Rate 18 Blood Pressure 152/65 H Pulse Oximetry 95 95 Oxygen Delivery Room Air 12/10/24 20:00 12/11/24 00:00 12/11/24 04:00 Temperature Pulse Rate 107 H 88 81 Respiratory Rate Blood Pressure Pulse Oximetry Oxygen Delivery 12/11/24 05:08 12/11/24 08:03 12/11/24 08:03 Temperature 97.4 F L Pulse Rate 87 79 79 Respiratory Rate 17 18 Blood Pressure 151/72 H Pulse Oximetry 97 97 Oxygen Delivery Room Air Intake/Output Intake/Output: Intake & Output 12/08/24 12/09/24 12/10/24 12/11/24 23:59 23:59 23:59 23:59 Intake Total 1790 2766 2290 910 Output Total 2050 2050 3200 1900 Balance -260 716 -910 -990 Meds/Results Medications: Active Medications Generic Name Dose Route Start Last Admin Trade Name Freq PRN Reason Stop Dose Admin Acetaminophen 650 mg 12/01/24 22:35 12/11/24 12:02 Acetaminophen 325 Mg Tablet PO 650 mg Q4H PRN Administration Mild Pain (1-3) or Fever Dextrose 12.5 gm 12/02/24 09:48 Dextrose 50% 25 Gm/50 Ml Syringe IV PUSH PRN PRN Hypoglycemia Protocol Docusate Sodium 100 mg 12/07/24 21:00 12/11/24 08:12 Docusate Sodium 100 Mg Capsule PO 100 mg Q12HR VU Administration Doxazosin Mesylate 4 mg 12/02/24 21:00 12/10/24 20:55 Doxazosin Mesylate 4 Mg Tablet PO 4 mg QHS VU Administration Finasteride 5 mg 12/02/24 09:00 12/11/24 08:12 Finasteride 5 Mg Tablet PO 5 mg DAILY VU Administration Fluticasone Propionate 2 spray 12/02/24 03:58 12/11/24 10:22 Fluticasone Propionate 0.05% Na Spr 16 Gm Btl (*Bkc) NASAL 2 spray DAILY PRN Administration allergy symptoms Glucose 15 gm 12/02/24 09:48 Glucose Oral Gel 15 Gm Of Glucse In 37.5 Gm Tube PO PRN PRN Hypoglycemia Protocol Hydromorphone HCl 0.5 mg 12/08/24 17:55 12/11/24 13:53 Hydromorphone Hcl Inj (*Crx) 1 Mg/Ml Syr IV PUSH 0.5 mg Q4H PRN Administration Pain Rated 7-10 Dextrose 1,000 mls @ 100 mls/hr 12/02/24 09:48 Dextrose 5% 1,000 Ml IVPB PRN PRN Hypoglycemia Protocol Ampicillin Sodium 2 gm/ Sodium 100 mls @ 200 mls/hr 12/06/24 13:05 12/11/24 12:20 Chloride IVPB Infused Q6HR VU Infusion Ceftriaxone Sodium 2 gm/ 100 mls @ 200 mls/hr 12/06/24 14:00 12/11/24 13:52 Sodium Chloride IVPB 200 mls/hr Q12H UV Administration Melatonin 3 mg 12/09/24 21:00 12/10/24 20:55 Melatonin 3 Mg Tablet PO 3 mg HS VU Administration Morphine Sulfate 15 mg 12/02/24 09:47 12/11/24 08:58 Morphine Sulfate (*Crx) 15 Mg Tab Ir PO 15 mg Q8H PRN Administration SEVERE PAIN Ondansetron HCl 4 mg 12/01/24 22:35 Ondansetron Inj 4 Mg/2 Ml Vial IV PUSH Q4H PRN Nausea Pantoprazole Sodium 40 mg 12/02/24 09:50 12/11/24 08:12 Pantoprazole 40 Mg Tablet PO 40 mg QAM VU Administration Radiology Results: ITS Impressions Chest X-Ray 12/01/24 21:09 IMPRESSION: No acute cardiopulmonary process. Head CT 12/01/24 21:34 IMPRESSION: No acute intracranial process. CT findings that may represent acute right maxillary sinusitis in the appropriate clinical context. Chest/Abdomen/Pelvis CT 12/01/24 21:35 IMPRESSION: No acute finding in the chest. Mild cardiomegaly. CT findings suggestive of pulmonary hypertension. Persistent soft tissue density material and stranding in the gallbladder fossa, likely representing resolving postinfectious/postsurgical change. 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 Recommend MRI of the abdomen without contrast for further evaluation. Pelvis CT 12/08/24 11:31 IMPRESSION: 1. Lag screw fixation at the proximal right femur presumably for old healed fracture. No acute osseous abnormality. 2. Severe lower lumbar spondylosis. Knee CT 12/08/24 13:19 IMPRESSION: 1. Nonspecific large right knee joint effusion. Given the presence of bacteremia and knee pain would recommend diagnostic arthrocentesis. 2. Tricompartmental osteoarthritis, severe at the medial compartment of the kne e. Labs Labs: Laboratory Results - last 24 hr 12/11/24 04:39 WBC 14.2 H RBC 2.78 L Hgb 7.8 L Hct 25.1 L MCV 90.3 MCH 28.1 MCHC 31.1 L RDW 15.7 H Plt Count 421 H MPV 9.2 Sodium 128 L Potassium 5.5 H Chloride 98 Carbon Dioxide 21 L Anion Gap 9 BUN 23 H Creatinine 1.28 Estim Creat Clear Calc 40 Estimated GFR 53 L Glucose 243 H Calcium 8.8 Total Bilirubin 0.7 AST 63 H ALT 55 H Alkaline Phosphatase 101 Total Protein 6.5 Albumin 2.8 L Blood cultures 12/10: Pending Blood cultures 12/06: Enterococcus faecalis Blood cultures 12/01: Enterococcus faecalis
[2024-12-11 16:08] LABS: Glucose, Body Fluid 64 mg/dL (.)
[2024-12-11] MEDS: DOXAZOSIN MESYLATE 4 MG TABLET PO (22:18)
[2024-12-11] MEDS: MELATONIN 3 MG TABLET PO (22:18)
[2024-12-12] VITALS (8 sets, daily range): BP systolic 144–178; BP diastolic 64–81; PULSE 78–103; RESP 14–20; TEMP 36.6–37.2; O2SAT 97–100
[2024-12-12] MEDS: AMPICILLIN SODIUM 2 GM in SODIUM CHLORIDE 0.9% IV 100 ML 200 ML IVPB ×4 (00:33→17:33)
[2024-12-12] MEDS: cefTRIAXone 2 GM in SODIUM CHLORIDE 0.9% IV 100 ML 200 ML IVPB ×2 (01:10→13:11)
[2024-12-12] MEDS: MORPHINE SULFATE (*CRX) 15 MG TAB IR PO ×3 (02:10→18:17)
[2024-12-12] MEDS: HYDROmorphone HCL INJ (*CRX) 1 MG/ML SYR 0.5 MG IV PUSH ×2 (04:48→22:49)
[2024-12-12 04:59] LABS: Iron 56 ug/dL (49-181)
[2024-12-12 05:08] LABS: Percent Iron Saturation 38 % (20-50)
[2024-12-12 05:35] LABS: Ferritin 330.00 ng/mL (11.1-264)
[2024-12-12] MEDS: ACETAMINOPHEN 325 MG TABLET 650 MG PO ×2 (08:30→21:19)
[2024-12-12] MEDS: FLUTICASONE PROPIONATE 0.05% NA SPR 16 GM BTL (*BKC) 2 SPRAY NASAL (08:30)
[2024-12-12] MEDS: PANTOPRAZOLE 40 MG TABLET PO (08:31)
[2024-12-12] MEDS: FINASTERIDE 5 MG TABLET PO (08:31)
--- NOTE | 2024-12-12 13:35 | P.PNIM_ITS ---
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 Status: Acute Assessment and Plan: Hold Eliquis due to anemia possibly pancreatic head hematoma Peroneal vein DVT (2) Type 2 diabetes mellitus with hyperglycemia, without long-term current use of insulin: Code(s): E11.65 - Type 2 diabetes mellitus with hyperglycemia Status: Chronic Assessment and Plan: SSI Hypoglycemia protocol (3) Acute anemia: Code(s): D64.9 - Anemia, unspecified Status: Acute Assessment and Plan: -Possible delayed intramural duodenal bleed following the relatively recent ERCP vs Discussed with radiologist who agrees the possibility of hematoma in pancreas head -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 -Pending outpatient endoscopic ultrasound at [facility] -Pancreatic head mass versus hematoma. could be infected and source. -With recent cholecystectomy and manipulation of the biliary tract September 2024. 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 could be infected and source. With recent cholecystectomy and manipulation of the biliary tract September 2024. Consulted Ortho for right knee swelling and possible aspiration Plan DVT prophylaxis on SCDs, AC on hold due to possible pancreatic head hematoma Subjective Date/time seen: 12/12/24 13:35 Interval history: Comfortable at bedside awaiting Synovial fluid culture Review of Systems Review of Systems: As reviewed above in HPI All systems reviewed & are unremarkable except as noted in HPI and below (Subjective) Constitutional: Constitutional: Reports as per HPI, Denies chills, Reports fatigue and Denies fever(s) ENT: Denies dizziness Cardiovascular: Cardiovascular: Reports as per HPI, Denies chest pain, Denies syncope, Denies irregular heart rhythm and Denies dyspnea Respiratory: Respiratory: Reports as per HPI and Denies dyspnea Gastrointestinal: Gastrointestinal: Reports as per HPI and Denies abdominal pain Genitourinary: Genitourinary: Reports as per HPI and Denies dysuria Musculoskeletal: Musculoskeletal: Reports as per HPI Neurologic: Reports as per HPI, Denies dizziness and Denies syncope Endocrine: Endocrine: Reports fatigue Exam Narrative: GENERAL: Ill-appearing, tachycardic, febrile HEAD: Normocephalic EYES: Pupils equal and reactive ENT: Nares clear, no rhinorrhea or epistaxis. Mucous membranes moist. NECK: Supple. CHEST: Clear to auscultation, no respiratory distress or tachypnea HEART: [Regular rate and rhythm]. No murmur heard. [Normal peripheral pulses.] ABDOMEN: [Soft, nondistended], tender to palpation, [No rigidity or guarding] EXTREMITIES: Normal range of motion. No edema Pain reproduced with any range of motion of his extremities SKIN: Warm, dry, no rash. NEURO: Able to move his extremities, alert oriented x1, confused and repeats answers to questions, slow to respond to questioning, no facial asymmetry slurr ing of his speech Const: General: comfortable, no acute distress and obese Nutritional Appearance: obese Orientation/consciousness: oriented to person, oriented to place and oriented to time HENMT: Mouth: Yes moist mucous membranes Eyes: Pupils: Equal, round and reactive pupils present Neck: Neck: supple Resp: Effort & Inspection: normal respiratory effort Auscultation: clear to auscultation bilaterally Cardio: Rate: regular rate Rhythm: regular rhythm Heart sounds: no murmurs Peripheral pulses: dorsalis pedis present GI: Inspection: non-distended Neuro: General: oriented to person, oriented to place and oriented to time Cranial nerves: Yes Equal, round and reactive pupils present Extrem: General: no edema Right lower extremity: no edema Left lower extremity: no edema Other: 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, no erythema, no fluctuance Objective Data Vital Signs Vital Signs: Vital Signs - 24 hr 12/11/24 14:00 12/11/24 16:03 12/11/24 20:00 Temperature 97.5 F L Pulse Rate 100 97 Respiratory Rate 16 Blood Pressure 144/65 H Pulse Oximetry 100 Oxygen Delivery Room Air 12/11/24 20:00 12/11/24 21:04 12/12/24 00:00 Temperature 98.2 F Pulse Rate 87 98 82 Respiratory Rate 18 Blood Pressure 135/56 L Pulse Oximetry 98 Oxygen Delivery 12/12/24 04:00 12/12/24 05:01 12/12/24 08:00 Temperature 98.9 F Pulse Rate 78 91 95 Respiratory Rate 17 Blood Pressure 144/64 H Pulse Oximetry 97 Oxygen Delivery 12/12/24 08:31 Temperature Pulse Rate Respiratory Rate 18 Blood Pressure Pulse Oximetry 97 Oxygen Delivery Room Air Intake/Output Intake/Output: Intake & Output 12/09/24 12/10/24 12/11/24 12/12/24 23:59 23:59 23:59 23:59 Intake Total 2766 2290 2640 1820 Output Total 2050 3200 2500 1200 Balance 716 910 140 620 Meds/Results Medications: Active Medications Generic Name Dose Route Start Last Admin Trade Name Freq PRN Reason Stop Dose Admin Acetaminophen 650 mg 12/01/24 22:35 12/12/24 08:30 Acetaminophen 325 Mg Tablet PO 650 mg Q4H PRN Administration Mild Pain (1-3) or Fever Dextrose 12.5 gm 12/02/24 09:48 Dextrose 50% 25 Gm/50 Ml Syringe IV PUSH PRN PRN Hypoglycemia Protocol Docusate Sodium 100 mg 12/07/24 21:00 12/12/24 08:32 Docusate Sodium 100 Mg Capsule PO Not Given Q12HR VU Doxazosin Mesylate 4 mg 12/02/24 21:00 12/11/24 22:18 Doxazosin Mesylate 4 Mg Tablet PO 4 mg QHS VU Administration Finasteride 5 mg 12/02/24 09:00 12/12/24 08:31 Finasteride 5 Mg Tablet PO 5 mg DAILY VU Administration Fluticasone Propionate 2 spray 12/02/24 03:58 12/12/24 08:30 Fluticasone Propionate 0.05% Na Spr 16 Gm Btl (*Bkc) NASAL 2 spray DAILY PRN Administration allergy symptoms Glucose 15 gm 12/02/24 09:48 Glucose Oral Gel 15 Gm Of Glucse In 37.5 Gm Tube PO PRN PRN Hypoglycemia Protocol Hydromorphone HCl 0.5 mg 12/08/24 17:55 12/12/24 04:48 Hydromorphone Hcl Inj (*Crx) 1 Mg/Ml Syr IV PUSH 0.5 mg Q4H PRN Administration Pain Rated 7-10 Dextrose 1,000 mls @ 100 mls/hr 12/02/24 09:48 Dextrose 5% 1,000 Ml IVPB PRN PRN Hypoglycemia Protocol Ampicillin Sodium 2 gm/ Sodium 100 mls @ 200 mls/hr 12/06/24 13:05 12/12/24 13:00 Chloride IVPB Infused Q6HR VU Infusion Ceftriaxone Sodium 2 gm/ 100 mls @ 200 mls/hr 12/06/24 14:00 12/12/24 13:11 Sodium Chloride IVPB 200 mls/hr Q12H VU Administration Melatonin 3 mg 12/09/24 21:00 12/11/24 22:18 Melatonin 3 Mg Tablet PO 3 mg HS VU Administration Morphine Sulfate 15 mg 12/02/24 09:47 12/12/24 10:40 Morphine Sulfate (*Crx) 15 Mg Tab Ir PO 15 mg Q8H PRN Administration SEVERE PAIN Ondansetron HCl 4 mg 12/01/24 22:35 Ondansetron Inj 4 Mg/2 Ml Vial IV PUSH Q4H PRN Nausea Pantoprazole Sodium 40 mg 12/02/24 09:50 12/12/24 08:31 Pantoprazole 40 Mg Tablet PO 40 mg QAM VU Administration Radiology Results: ITS Impressions Chest X-Ray 12/01/24 21:09 IMPRESSION: No acute cardiopulmonary process. Head CT 12/01/24 21:34 IMPRESSION: No acute intracranial process. CT findings that may represent acute right maxillary sinusitis in the appropriate clinical context. Chest/Abdomen/Pelvis CT 12/01/24 21:35 IMPRESSION: No acute finding in the chest. Mild cardiomegaly. CT findings suggestive of pulmonary hypertension. Persistent soft tissue density material and stranding in the gallbladder fossa, likely representing resolving postinfectious/postsurgical change. 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 Recommend MRI of the abdomen without contrast for further evaluation. Pelvis CT 12/08/24 11:31 IMPRESSION: 1. Lag screw fixation at the proximal right femur presumably for old healed fracture. No acute osseous abnormality. 2. Severe lower lumbar spondylosis. Knee CT 12/08/24 13:19 IMPRESSION: 1. Nonspecific large right knee joint effusion. Given the presence of bacteremia and knee pain would recommend diagnostic arthrocentesis. 2. 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 Labs Labs: Laboratory Results - last 24 hr 12/10/24 12/12/24 11:46 04:37 Iron 56 TIBC 149 L % Saturation 38 Ferritin 330.00 H Fluid Glucose 64 Fluid Total Protein 2.8
--- NOTE | 2024-12-12 16:24 | P.PNOP_ITS ---
Progress Note: A&P Assessment and Plan (1) Effusion of knee joint right: Code(s): M25.461 - Effusion, right knee Status: Acute Assessment and Plan: 2 days status post right knee aspiration. Cultures pending. No growth to date. Lab did not perform the other tests as ordered. Exam improved today. No evidence of infection. Doubt knee is source of bacteremia. Continue conservative treatment. (2) Degenerative joint disease of knee: Qualifiers: Osteoarthritis type: primary Laterality: bilateral Qualified Code(s): M17.0 - Bilateral primary osteoarthritis of knee Code(s): M17.9 - Osteoarthritis of knee, unspecified Status: Acute Assessment and Plan: Both knees improved in terms of swelling. No pain. No erythema or warmth. No other signs of infection. Continue conservative care. Plan Patient is asked that his Lasix be restarted. He feels that he is fluid overloaded. He was on 40 mg daily prior. Also no SCDs in place. Will reorder. Subjective Subjective Date/Time Seen: 12/12/24 16:24 Principal diagnosis: Bilateral knee effusion Interval history: 2 days status post right knee aspirate. Patient states a little bit of pressure and pain in the right knee with weight-bearing. No pain at rest and in bed. Exam Const: General: No in distress or confusion Orientation/consciousness: oriented to person, oriented to place and oriented to time Extrem: Right lower extremity: knee Details: normal to inspection, tenderness Location: of the patella ( mild), swelling ( Improved) Location: of the pre- patellar area, knee ligament exam normal and other ( no erythema.); no ecchymosis and no unusual warmth Left lower extremity: normal to inspection, normal capillary refill, hip/thigh Details: normal ROM; no tenderness, knee Details: normal ROM and knee ligament exam normal Details: anterior drawer test normal, posterior drawer test normal, valgus stress test normal, varus stress test normal and Leroy's test normal; no tenderness, no swelling and no unusual warmth and foot Details: toes with normal ROM, vascular exam Details: dorsalis pedis pulse present and normal capillary refill and motor-sensory exam light- touch normal; no tenderness Objective Data Vital Signs Vital Signs: Vital Signs - 24 hr 12/11/24 20:00 12/11/24 20:00 12/11/24 21:04 Temperature 98.2 F Pulse Rate 87 98 Respiratory Rate 18 Blood Pressure 135/56 L Pulse Oximetry 98 Oxygen Delivery Room Air 12/12/24 00:00 12/12/24 04:00 12/12/24 05:01 Temperature 98.9 F Pulse Rate 82 78 91 Respiratory Rate 17 Blood Pressure 144/64 H Pulse Oximetry 97 Oxygen Delivery 12/12/24 08:00 12/12/24 08:31 12/12/24 14:00 Temperature 98.2 F Pulse Rate 95 100 Respiratory Rate 18 14 Blood Pressure 172/75 H Pulse Oximetry 97 100 Oxygen Delivery Room Air Intake/Output Intake/Output: Intake & Output 12/09/24 12/10/24 12/11/24 12/12/24 23:59 23:59 23:59 23:59 Intake Total 2766 2290 2640 1920 Output Total 2050 3200 2500 1200 Balance 716 910 140 720 Meds/Results Medications: Active Medications Generic Name Dose Route Start Last Admin Trade Name Freq PRN Reason Stop Dose Admin Acetaminophen 650 mg 12/01/24 22:35 12/12/24 08:30 Acetaminophen 325 Mg Tablet PO 650 mg Q4H PRN Administration Mild Pain (1-3) or Fever Dext 12/02/24 03:58 12/12/24 08:30 Fluticasone Propionate 0.05% Na Spr 16 Gm Btl (*Bkc) NASAL 2 spray DAILY PRN Administration allergy symptoms Glucose 15 gm 12/02/24 09:48 Glucose Oral Gel 15 Gm Of Glucse In 37.5 Gm Tube PO PRN PRN Hypoglycemia Protocol Hydromorphone HCl 0.5 mg 12/08/24 17:55 12/12/24 04:48 Hydromorphone Hcl Inj (*Crx) 1 Mg/Ml Syr IV PUSH 0.5 mg Q4H PRN Administration Pain Rated 7-10 Dextrose 1,000 mls @ 100 mls/hr 12/02/24 09:48 Dextrose 5% 1,000 Ml IVPB PRN PRN Hypoglycemia Protocol Ampicillin Sodium 2 gm/ Sodium 100 mls @ 200 mls/hr 12/06/24 13:05 12/12/24 13:00 Chloride IVPB Infused Q6HR VU Infusion Ceftriaxone Sodium 2 gm/ 100 mls @ 200 mls/hr 12/06/24 14:00 12/12/24 13:40 Sodium Chloride IVPB Infused Q12H VU Infusion Melatonin 3 mg 12/09/24 21:00 12/11/24 22:18 Melatonin 3 Mg Tablet PO 3 mg HS VU Administration Morphine Sulfate 15 mg 12/02/24 09:47 12/12/24 10:40 Morphine Sulfate (*Crx) 15 Mg Tab Ir PO 15 mg Q8H PRN Administration SEVERE PAIN Ondansetron HCl 4 mg 12/01/24 22:35 Ondansetron Inj 4 Mg/2 Ml Vial IV PUSH Q4H PRN Nausea Pantoprazole Sodium 40 mg 12/02/24 09:50 12/12/24 08:31 Pantoprazole 40 Mg Tablet PO 40 mg QAM VU Administration Radiology Results: Labs Labs: Laboratory Results - last 24 hr 12/12/24 04:37 Iron 56 TIBC 149 L % Saturation 38 Ferritin 330.00 H
[2024-12-12] MEDS: FUROSEMIDE 40 MG TABLET PO (16:43)
[2024-12-12 18:07] LABS: IFOB Positive Control Positive; Immunochemical Fecal Occult Bl Positive (N)
--- NOTE | 2024-12-12 18:43 | WPDINFPN2 ---
Progress Note: A&P Assessment and Plan (1) Fever: Code(s): R50.9 - Fever, unspecified Status: Acute (2) Enterococcal bacteremia: Code(s): R78.81 - Bacteremia; B95.2 - Enterococcus as the cause of diseases classified elsewhere Status: Acute (3) Effusion of knee joint right: Code(s): M25.461 - Effusion, right knee Status: Acute (4) Elevated LFTs: Code(s): R79.89 - Other specified abnormal findings of blood chemistry Status: Acute (5) Leukocytosis: Qualifiers: Leukocytosis type: leukemoid reaction Qualified Code(s): D72.823 - Leukemoid reaction Code(s): D72.829 - Elevated white blood cell count, unspecified Status: Acute Plan #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 Patient presenting with decreased hemoglobin. Right lower quadrant pain versus hip pain. 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 ADOLFO negative 12/07 Assessing for right hip involvement versus right knee. Possible [place] joint septic arthritis of right knee based on effusion with large neutrophil Percentage; however, full soft count could not be performed due to clotting.. With new anemia of unclear etiology. Hemoglobin has been stable of late. 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 Could be infected and source. Underwent cholecystectomy and manipulation of the biliary tract in September of 2024 with gallbladder culture positive for Enterococcus at that time. #Pacemaker. #Right hip fracture. With pinning. No CHANA. #Right knee effusion. Rule out septic arthritis , as per above. #Mild transaminitis. May be associated with ceftriaxone use and will follow. #Leukocytosis. May be secondary to Solu-Medrol dosed 12/10. Also with anemia and intermittent drop in hemoglobin. Plan: Repeat blood cultures pending. Continue ampicillin and ceftriaxone but monitor liver enzymes. Will repeat in a.m.. cough Await right knee arthrocentesis culture. Anticipating at least 2 weeks of IV antibiotics with the possibility that pancreatic area could be source. No obvious area for drainage at this point. Has endoscopic ultrasound planned at [facility] . However, if synovial aspirate positive for Enterococcus would extend treatment up to 4 weeks for [place] joint septic arthritis. This was done via telemedicine with [facility] in [place] and with inpatient at [facility] in [place], [place]. With consent. HIPPA protected audiovisual interface. Subjective Date/time seen: 12/12/24 18:43 Interval history: 12/12/2024: Patient is awake and alert and interactive. Still complaining of right lower quadrant and hip pain but right knee pain and swelling diminished. Right knee aspiration cultures remain pending. 12/10/2024 blood cultures remain pending as well. Review of Systems Review of Systems: Continues to complain of right lower quadrant and right knee pain although the latter has improved post synovial aspiration. All systems reviewed & are unremarkable except as noted in HPI and below Exam Narrative: Awake and alert and interactive. Comfortable in appearance. Breathing comfortably. No tachycardia. Abdomen without significant distention. Left arm with phlebotomy site ecchymosis with out cellulitis. Right knee remains with residual swelling as compared with left knee although without warmth or significant tenderness to palpation. Objective Data Vital Signs Vital Signs: Vital Signs - 24 hr 12/11/24 20:00 12/11/24 20:00 12/11/24 21:04 Temperature 98.2 F Pulse Rate 87 98 Respiratory Rate 18 Blood Pressure 135/56 L Pulse Oximetry 98 Oxygen Delivery Room Air 12/12/24 00:00 12/12/24 04:00 12/12/24 05:01 Temperature 98.9 F Pulse Rate 82 78 91 Respiratory Rate 17 Blood Pressure 144/64 H Pulse Oximetry 97 Oxygen Delivery 12/12/24 08:00 12/12/24 08:31 12/12/24 14:00 Temperature 98.2 F Pulse Rate 95 100 Respiratory Rate 18 14 Blood Pressure 172/75 H Pulse Oximetry 97 100 Oxygen Delivery Room Air Intake/Output Intake/Output: Intake & Output 12/09/24 12/10/24 12/11/24 12/12/24 23:59 23:59 23:59 23:59 Intake Total 2766 2290 2640 3120 Output Total 2050 3200 2500 2500 Balance 716 -910 140 620 Meds/Results Medications: Active Medications Generic Name Dose Route Start Last Admin Trade Name Freq PRN Reason Stop Dose Admin Acetaminophen 650 mg 12/01/24 22:35 12/12/24 08:30 Acetaminophen 325 Mg Tablet PO 650 mg Q4H PRN Administration Mild Pain (1-3) or Fever Dextrose 12.5 gm 12/02/24 09:48 Dextrose 50% 25 Gm/50 Ml Syringe IV PUSH PRN PRN Hypoglycemia Protocol Docusate Sodium 100 mg 12/07/24 21:00 08/20/25 08:32 Docusate Sodium 100 Mg Capsule PO Not Given Q12HR VU Doxazosin Mesylate 4 mg 12/02/24 21:00 12/11/24 22:18 Doxazosin Mesylate 4 Mg Tablet PO 4 mg QHS VU Administration Finasteride 5 mg 12/02/24 09:00 12/12/24 08:31 Finasteride 5 Mg Tablet PO 5 mg DAILY VU Administration Fluticasone Propionate 2 spray 12/02/24 03:58 12/12/24 08:30 Fluticasone Propionate 0.05% Na Spr 16 Gm Btl (*Bkc) NASAL 2 spray DAILY PRN Administration allergy symptoms Furosemide 40 mg 12/12/24 16:25 12/12/24 16:43 Furosemide 40 Mg Tablet PO 40 mg DAILY VU Administration Glucose 15 gm 12/02/24 09:48 Glucose Oral Gel 15 Gm Of Glucse In 37.5 Gm Tube PO PRN PRN Hypoglycemia Protocol Hydromorphone HCl 0.5 mg 12/08/24 17:55 12/12/24 04:48 Hydromorphone Hcl Inj (*Crx) 1 Mg/Ml Syr IV PUSH 0.5 mg Q4H PRN Administration Pain Rated 7-10 Dextrose 1,000 mls @ 100 mls/hr 12/02/24 09:48 Dextrose 5% 1,000 Ml IVPB PRN PRN Hypoglycemia Protocol Ampicillin Sodium 2 gm/ Sodium 100 mls @ 200 mls/hr 12/06/24 13:05 12/12/24 18:05 Chloride IVPB Infused Q6HR VU Infusion Ceftriaxone Sodium 2 gm/ 100 mls @ 200 mls/hr 12/06/24 14:00 12/12/24 13:40 Sodium Chloride IVPB Infused Q12H VU Infusion Melatonin 3 mg 12/09/24 21:00 12/11/24 22:18 Melatonin 3 Mg Tablet PO 3 mg HS VU Administration Morphine Sulfate 15 mg 12/02/24 09:47 12/12/24 18:17 Morphine Sulfate (*Crx) 15 Mg Tab Ir PO 15 mg Q8H PRN Administration SEVERE PAIN Ondansetron HCl 4 mg 12/01/24 22:35 Ondansetron Inj 4 Mg/2 Ml Vial IV PUSH Q4H PRN Nausea Pantoprazole Sodium 40 mg 12/02/24 09:50 08/20/25 08:31 Pantoprazole 40 Mg Tablet PO 40 mg QAM VU Administration Radiology Results: ITS Impressions Chest X-Ray 12/01/24 21:09 IMPRESSION: No acute cardiopulmonary process. Head CT 12/01/24 21:34 IMPRESSION: No acute intracranial process. CT findings that may represent acute right maxillary sinusitis in the appropriate clinical context. Chest/Abdomen/Pelvis CT 12/01/24 21:35 IMPRESSION: No acute finding in the chest. Mild cardiomegaly. CT findings suggestive of pulmonary hypertension. Persistent soft tissue density material and stranding in the gallbladder fossa, likely representing resolving postinfectious/postsurgical change. 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 Recommend MRI of the abdomen without contrast for further evaluation. Pelvis CT 12/08/24 11:31 IMPRESSION: 1. Lag screw fixation at the proximal right femur presumably for old healed fracture. No acute osseous abnormality. 2. Severe lower lumbar spondylosis. Knee CT 12/08/24 13:19 IMPRESSION: 1. Nonspecific large right knee joint effusion. Given the presence of bacteremia and knee pain would recommend diagnostic arthrocentesis. 2. 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 Labs Labs: Laboratory Results - last 24 hr 12/12/24 12/12/24 04:37 17:50 Iron 56 TIBC 149 L % Saturation 38 Ferritin 330.00 H Stl Occult Blood (IFOB) Positive H
[2024-12-12] MEDS: DOCUSATE SODIUM 100 MG CAPSULE PO (21:19)
[2024-12-12] MEDS: DOXAZOSIN MESYLATE 4 MG TABLET PO (21:19)
[2024-12-12] MEDS: MELATONIN 3 MG TABLET PO (21:20)
[2024-12-13] MEDS: AMPICILLIN SODIUM 2 GM in SODIUM CHLORIDE 0.9% IV 100 ML 200 ML IVPB ×3 (00:54→11:38)
[2024-12-13] MEDS: cefTRIAXone 2 GM in SODIUM CHLORIDE 0.9% IV 100 ML 200 ML IVPB (01:28)
[2024-12-13 04:05] VITALS: BP 162/68; PULSE 93; RESP 20; TEMP 36.5; O2SAT 99
[2024-12-13 04:52] LABS: Hematocrit 24.7 % (42.0-52.0); Hemoglobin 7.4 g/dL (14.0-18.0); Immature Granulocyte Percent A 2.5 % (0-0.5); Lymphocytes Absolute Auto 2.27 K/mm3 (0.9-3.2); Mean Corpuscular HGB Conc 30.0 g/dl (32-36); Mean Corpuscular Hemoglobin 27.7 pg (26-34); Mean Corpuscular Volume 92.5 fl (80-100); Nucleated Red Blood Cells Absolute Auto 0.000 K/mm3 (0.0-0.012); Nucleated Red Blood Cells Perc 0.0 % (0.0-0.2); Platelet Count Result 446 k/mm3 (150-375); Red Blood Count 2.67 M/mm3 (4.6-6.20); White Blood Count 10.6 K/mm3 (4.5-10.0)
[2024-12-13 05:20] LABS: Alanine Aminotransferase 81 U/L (6-50); Albumin Level 2.5 g/dL (3.5-5.1); Alkaline Phosphatase 121 U/L (38-126); Anion Gap 2 mmol/L (4-12); Aspartate Amino Transferase 102 U/L (17-59); Bilirubin,Total 0.3 mg/dL (0.2-1.3); Blood Urea Nitrogen 21 mg/dL (9-20); Calcium 8.9 mg/dL (8.4-10.2); Carbon Dioxide 30 mmol/L (22-30); Chloride 103 mmol/L (98-107); Estimated CRCL calculation 37 ml/min; Estimated Glomerular Filt Rate 49; Glucose 116 mg/dL (65-110); Magnesium 1.5 mg/dL (1.6-2.3); Potassium 4.3 mmol/L (3.4-5.0); Sodium 135 mmol/L (137-145); Total Protein 5.9 g/dL (6.3-8.2)
[2024-12-13] MEDS: MORPHINE SULFATE (*CRX) 15 MG TAB IR PO ×3 (05:58→22:01)
[2024-12-13] MEDS: HYDROmorphone HCL INJ (*CRX) 1 MG/ML SYR 0.5 MG IV PUSH ×2 (08:28→18:15)
[2024-12-13] MEDS: FINASTERIDE 5 MG TABLET PO (08:31)
[2024-12-13] MEDS: FUROSEMIDE 40 MG TABLET PO (08:31)
[2024-12-13] MEDS: DOCUSATE SODIUM 100 MG CAPSULE PO ×2 (08:31→21:53)
[2024-12-13] MEDS: PANTOPRAZOLE 40 MG TABLET PO (08:31)
--- NOTE | 2024-12-13 10:49 | WPDINFPN2 ---
Progress Note: A&P Assessment and Plan (1) Fever: Code(s): R50.9 - Fever, unspecified Status: Acute (2) Enterococcal bacteremia: Code(s): R78.81 - Bacteremia; B95.2 - Enterococcus as the cause of diseases classified elsewhere Status: Acute (3) Effusion of knee joint right: Code(s): M25.461 - Effusion, right knee Status: Acute (4) Elevated LFTs: Code(s): R79.89 - Other specified abnormal findings of blood chemistry Status: Acute (5) Leukocytosis: Qualifiers: Leukocytosis type: leukemoid reaction Qualified Code(s): D72.823 - Leukemoid reaction Code(s): D72.829 - Elevated white blood cell count, unspecified Status: Acute Plan # 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 Patient presenting with decreased hemoglobin. Right lower quadrant pain versus hip pain. 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 ADOLFO negative 12/07 Assessing for right hip involvement versus right knee. Possible [place] joint septic arthritis of right knee based on effusion with large neutrophil percentage; however, full cell count could not be performed due to clotting And aspiration fluid culture negative at 24 hours. culture performed while on antibiotics. With new anemia of unclear etiology. Hemoglobin has been stable of late. 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 Could be infected and source. Underwent cholecystectomy and manipulation of the biliary tract in September of 2024 with gallbladder culture positive for Enterococcus at that time # Pacemaker. # Right hip fracture. With pinning. No CHANA. # Right knee effusion. Rule out septic arthritis, as per above. # Lower back pain. # Mild transaminitis. May be associated with ceftriaxone use and will follow. Low-grade transaminitis persists. # Leukocytosis. May be secondary to Solu-Medrol dosed 12/10. Also with anemia and intermittent drop in hemoglobin. Improving. Plan: -- Continue to follow repeat blood cultures which are no growth to date. Follow right knee cultures. -- With continued transaminitis recommend transitioning from ceftriaxone to ampicillin to daptomycin 500 mg IV Q 24 hours. Consider IV antibiotics now day 8 of potential 14 if repeat blood cultures as well as knee aspiration cultures remain negative. Anticipate an additional 14 day course of oral linezolid after completing IV antibiotic. -- check baseline CPK in a.m.. -- monitor liver enzymes off of ceftriaxone and ampicillin. -- obtain LS spine x-rays. This was done via telemedicine with [facility] in [place] and with inpatient at [facility] in [place], [place]. With consent. HIPPA protected audiovisual interface. Subjective Date/time seen: 12/13/24 10:49 Interval history: 12/12/2024: Patient is awake and alert and interactive. Still complaining of right lower quadrant and hip pain but right knee pain and swelling diminished. Right knee aspiration cultures remain pending. 12/10 blood cultures remain pending as well. 12/13/2024: Afebrile with improvement in leukocytosis that was identified yesterday. 12/10 blood and knee aspiration cultures negative at 24 hours. Review of Systems Review of Systems: Continues to complain of right lower quadrant and right knee pain with increasing knee pain today. Also complaining of lower back pain. All systems reviewed & are unremarkable except as noted in HPI and below Exam Narrative: Awake and alert and interactive. Comfortable in appearance. Breathing comfortably. No tachycardia. Abdomen without significant distention. Left arm with phlebotomy site ecchymosis with out cellulitis. Right knee remains with residual swelling , possibly increased today, as compared with left knee although without warmth or erythema. Tender today to palpation. Lumbar back not tender to palpation. Objective Data Vital Signs Vital Signs: Vital Signs - 24 hr 12/12/24 14:00 12/12/24 20:00 12/12/24 20:04 Temperature 98.2 F Pulse Rate 100 103 H Respiratory Rate 14 Blood Pressure 172/75 H Pulse Oximetry 100 100 Oxygen Delivery Room Air Room Air 12/12/24 20:13 12/13/24 04:05 Temperature 97.9 F 97.7 F Pulse Rate 103 H 93 Respiratory Rate 20 20 Blood Pressure 178/81 H 162/68 H Pulse Oximetry 100 99 Oxygen Delivery Intake/Output Intake/Output: Intake & Output 12/10/24 12/11/24 12/12/24 12/13/24 23:59 23:59 23:59 23:59 Intake Total 2290 2640 3120 450 Output Total 3200 2500 3200 2100 Balance -910 Meds/Results Medications: Active Medications Generic Name Dose Route Start Last Admin Trade Name Freq PRN Reason Stop Dose Admin Acetaminophen 650 mg 12/01/24 22:35 12/12/24 21:19 Acetaminophen 325 Mg Tablet PO 650 mg Q4H PRN Administration Mild Pain (1-3) or Fever Dextrose 12.5 gm 12/02/24 09:48 Dextrose 50% 25 Gm/50 Ml Syringe IV PUSH PRN PRN Hypoglycemia Protocol Docusate Sodium 100 mg 12/07/24 21:00 12/13/24 08:31 Docusate Sodium 100 Mg Capsule PO 100 mg Q12HR VU Administration Doxazosin Mesylate 4 mg 12/02/24 21:00 12/12/24 21:19 Doxazosin Mesylate 4 Mg Tablet PO 4 mg QHS VU Administration Finasteride 5 mg 12/02/24 09:00 12/13/24 08:31 Finasteride 5 Mg Tablet PO 5 mg DAILY VU Administration Fluticasone Propionate 2 spray 12/02/24 03:58 12/12/24 08:30 Fluticasone Propionate 0.05% Na Spr 16 Gm Btl (*Bkc) NASAL 2 spray DAILY PRN Administration allergy symptoms Furosemide 40 mg 12/12/24 16:25 12/13/24 08:31 Furosemide 40 Mg Tablet PO 40 mg DAILY VU Administration Glucose 15 gm 12/02/24 09:48 Glucose Oral Gel 15 Gm Of Glucse In 37.5 Gm Tube PO PRN PRN Hypoglycemia Protocol Hydromorphone HCl 0.5 mg 12/08/24 17:55 12/13/24 08:28 Hydromorphone Hcl Inj (*Crx) 1 Mg/Ml Syr IV PUSH 0.5 mg Q4H PRN Administration Pain Rated 7-10 Dextrose 1,000 mls @ 100 mls/hr 12/02/24 09:48 Dextrose 5% 1,000 Ml IVPB PRN PRN Hypoglycemia Protocol Ampicillin Sodium 2 gm/ Sodium 100 mls @ 200 mls/hr 12/06/24 13:05 12/13/24 06:28 Chloride IVPB Infused Q6HR VU Infusion Ceftriaxone Sodium 2 gm/ 100 mls @ 200 mls/hr 12/06/24 14:00 12/13/24 01:58 Sodium Chloride IVPB Infused Q12H VU Infusion Melatonin 3 mg 12/09/24 21:00 12/12/24 21:20 Melatonin 3 Mg Tablet PO 3 mg HS VU Administration Morphine Sulfate 15 mg 12/02/24 09:47 12/13/24 05:58 Morphine Sulfate (*Crx) 15 Mg Tab Ir PO 15 mg Q8H PRN Administration SEVERE PAIN Ondansetron HCl 4 mg 12/01/24 22:35 Ondansetron Inj 4 Mg/2 Ml Vial IV PUSH Q4H PRN Nausea Pantoprazole Sodium 40 mg 12/02/24 09:50 12/13/24 08:31 Pantoprazole 40 Mg Tablet PO 40 mg QAM VU Administration Radiology Results: ITS Impressions Chest X-Ray 12/01/24 21:09 IMPRESSION: No acute cardiopulmonary process. Head CT 12/01/24 21:34 IMPRESSION: No acute intracranial process. CT findings that may represent acute right maxillary sinusitis in the appropriate clinical context. Chest/Abdomen/Pelvis CT 12/01/24 21:35 IMPRESSION: No acute finding in the chest. Mild cardiomegaly. CT findings suggestive of pulmonary hypertension. Persistent soft tissue density material and stranding in the gallbladder fossa, likely representing resolving postinfectious/postsurgical change. 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 Recommend MRI of the abdomen without contrast for further evaluation. Pelvis CT 12/08/24 11:31 IMPRESSION: 1. Lag screw fixation at the proximal right femur presumably for old healed fracture. No acute osseous abnormality. 2. Severe lower lumbar spondylosis. Knee CT 12/08/24 13:19 IMPRESSION: 1. Nonspecific large right knee joint effusion. Given the presence of bacteremia and knee pain would recommend diagnostic arthrocentesis. 2. 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 Labs Labs: Laboratory Results - last 24 hr 12/12/24 12/13/24 17:50 04:11 WBC 10.6 H RBC 2.67 L Hgb 7.4 L Hct 24.7 L MCV 92.5 MCH 27.7 MCHC 30.0 L RDW 15.9 H Plt Count 446 H MPV 9.1 Immature Gran % (Auto) 2.5 H Neut % (Auto) 63.3 Lymph % (Auto) 21.4 [place] % (Auto) 10.5 H Eos % (Auto) 1.7 Baso % (Auto) 0.6 Lymph # (Auto) 2.27 [place] # (Auto) 1.1 H Eos # (Auto) 0.2 Baso # (Auto) 0.1 Abs Immat Gran (auto) 0.27 H Absolute Neuts (auto) 6.7 Absolute Nucleated RBC 0.000 Nucleated RBC % 0.0 Sodium 135 L Potassium 4.3 Chloride 103 Carbon Dioxide 30 Anion Gap 2 L BUN 21 H Creatinine 1.38 H Estim Creat Clear Calc 37 Estimated GFR 49 L Glucose 116 H Calcium 8.9 Magnesium 1.5 L Total Bilirubin 0.3 AST 102 H ALT 81 H Alkaline Phosphatase 121 Total Protein 5.9 L Albumin 2.5 L Stl Occult Blood (IFOB) Positive H
--- NOTE | 2024-12-13 11:11 | P.PNIM_ITS ---
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 Status: Acute Assessment and Plan: Hold Eliquis due to anemia possibly pancreatic head hematoma Peroneal vein DVT Hold Eliquis until follow up at [facility] for EUS (2) Type 2 diabetes mellitus with hyperglycemia, without long-term current use of insulin: Code(s): E11.65 - Type 2 diabetes mellitus with hyperglycemia Status: Chronic Assessment and Plan: SSI Hypoglycemia protocol (3) Acute anemia: Code(s): D64.9 - Anemia, unspecified Status: Acute Assessment and Plan: -Possible delayed intramural duodenal bleed following the relatively recent ERCP vs Discussed with radiologist who agrees the possibility of hematoma in pancreas head -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 -Pending outpatient endoscopic ultrasound at [facility], Family and [facility] staff in touch for the scheduling -Pancreatic head mass versus hematoma. could be infected and source. -With recent cholecystectomy and manipulation of the biliary tract September 2024. - Iron sat 38 HB 7.4 (4) Fever: Code(s): R50.9 - Fever, unspecified Status: Acute Assessment and Plan: Blood culture positive for Enterococcus faecalis-recurrent remains afebrile no signs of infectious process Blood culture positive for Enterococcus faecalis on ampicillin and ceftriaxone duration contingent on Synovial culture (2 weeks vs 4 weeks) (5) Bacteremia: Code(s): R78.81 - Bacteremia Status: Acute Assessment and Plan: Enterococcus faecalis recurrent in blood Patient was previously positive for Enterococcus faecalis on 10/22 ID consulted Unclear source ADOLFO -negative Monitor leukocytosis on ampicillin and ceftriaxone, awaiting synovial fluid culture Monitor fever 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 could be infected and source. With recent cholecystectomy and manipulation of the biliary tract September 2024. Consulted Ortho for right knee swelling and possible aspiration Plan DVT prophylaxis on SCDs, AC on hold due to possible pancreatic head hematoma Subjective Date/time seen: 12/13/24 11:11 Interval history: Comfortable at bedside Awaiting synovial fluid culture Review of Systems Review of Systems: As reviewed above in HPI All systems reviewed & are unremarkable except as noted in HPI and below (Subjective) Constitutional: Constitutional: Reports as per HPI, Denies chills, Reports fatigue and Denies fever(s) ENT: Denies dizziness Cardiovascular: Cardiovascular: Reports as per HPI, Denies chest pain, Denies syncope, Denies irregular heart rhythm and Denies dyspnea Respiratory: Respiratory: Reports as per HPI and Denies dyspnea Gastrointestinal: Gastrointestinal: Reports as per HPI and Denies abdominal pain Genitourinary: Genitourinary: Reports as per HPI and Denies dysuria Musculoskeletal: Musculoskeletal: Reports as per HPI Neurologic: Reports as per HPI, Denies dizziness and Denies syncope Endocrine: Endocrine: Reports fatigue Exam Narrative: GENERAL: Ill-appearing, tachycardic, febrile HEAD: Normocephalic EYES: Pupils equal and reactive ENT: Nares clear, no rhinorrhea or epistaxis. Mucous membranes moist. NECK: Supple. CHEST: Clear to auscultation, no respiratory distress or tachypnea HEART: [Regular rate and rhythm]. No murmur heard. [Normal peripheral pulses.] ABDOMEN: [Soft, nondistended], tender to palpation, [No rigidity or guarding] EXTREMITIES: Normal range of motion. No edema Pain reproduced with any range of motion of his extremities SKIN: Warm, dry, no rash. NEURO: Able to move his extremities, alert oriented x1, confused and repeats answers to questions, slow to respond to questioning, no facial asymmetry slurring of his speech Const: General: comfortable, no acute distress and obese Nutritional Appearance: obese Orientation/consciousness: oriented to person, oriented to place and oriented to time HENMT: Mouth: Yes moist mucous membranes Eyes: Pupils: Equal, round and reactive pupils present Neck: Neck: supple Resp: Effort & Inspection: normal respiratory effort Auscultation: clear to auscultation bilaterally Cardio: Rate: regular rate Rhythm: regular rhythm Heart sounds: no murmurs Peripheral pulses: dorsalis pedis present GI: Inspection: non-distended Neuro: General: oriented to person, oriented to place and oriented to time Cranial nerves: Yes Equal, round and reactive pupils present Extrem: General: no edema Right lower extremity: no edema Left lower extremity: no edema Other: 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, no erythema, no fluctuance Objective Data Vital Signs Vital Signs: Vital Signs - 24 hr 12/12/24 14:00 12/12/24 20:00 12/12/24 20:04 Temperature 98.2 F Pulse Rate 100 103 H Respiratory Rate 14 Blood Pressure 172/75 H Pulse Oximetry 100 100 Oxygen Delivery Room Air Room Air 12/12/24 20:13 12/13/24 04:05 Temperature 97.9 F 97.7 F Pulse Rate 103 H 93 Respiratory Rate 20 20 Blood Pressure 178/81 H 162/68 H Pulse Oximetry 100 99 Oxygen Delivery Intake/Output Intake/Output: Intake & Output 12/10/24 12/11/24 12/12/24 12/13/24 23:59 23:59 23:59 23:59 Intake Total 2290 2640 3120 870 Output Total 3200 2500 3200 2100 Balance -910 Meds/Results Medications: Active Medications Generic Name Dose Route Start Last Admin Trade Name Freq PRN Reason Stop Dose Admin Acetaminophen 650 mg 12/01/24 22:35 12/12/24 21:19 Acetaminophen 325 Mg Tablet PO 650 mg Q4H PRN Administration Mild Pain (1-3) or Fever Dextrose 12.5 gm 12/02/24 09:48 Dextrose 50% 25 Gm/50 Ml Syringe IV PUSH PRN PRN Hypoglycemia Protocol Docusate Sodium 100 mg 12/07/24 21:00 12/13/24 08:31 Docusate Sodium 100 Mg Capsule PO 100 mg Q12HR VU Administration Doxazosin Mesylate 4 mg 12/02/24 21:00 12/12/24 21:19 Doxazosin Mesylate 4 Mg Tablet PO 4 mg QHS VU Administration Finasteride 5 mg 12/02/24 09:00 12/13/24 08:31 Finasteride 5 Mg Tablet PO 5 mg DAILY VU Administration Fluticasone Propionate 2 spray 12/02/24 03:58 12/12/24 08:30 Fluticasone Propionate 0.05% Na Spr 16 Gm Btl (*Bkc) NASAL 2 spray DAILY PRN Administration allergy symptoms Furosemide 40 mg 12/12/24 16:25 12/13/24 08:31 Furosemide 40 Mg Tablet PO 40 mg DAILY VU Administration Glucose 15 gm 12/02/24 09:48 Glucose Oral Gel 15 Gm Of Glucse In 37.5 Gm Tube PO PRN PRN Hypoglycemia Protocol Hydromorphone HCl 0.5 mg 12/08/24 17:55 12/13/24 08:28 Hydromorphone Hcl Inj (*Crx) 1 Mg/Ml Syr IV PUSH 0.5 mg Q4H PRN Administration Pain Rated 7-10 Dextrose 1,000 mls @ 100 mls/hr 12/02/24 09:48 Dextrose 5% 1,000 Ml IVPB PRN PRN Hypoglycemia Protocol Ampicillin Sodium 2 gm/ Sodium 100 mls @ 200 mls/hr 12/06/24 13:05 12/13/24 06:28 Chloride IVPB Infused Q6HR VU Infusion Ceftriaxone Sodium 2 gm/ 100 mls @ 200 mls/hr 12/06/24 14:00 12/13/24 01:58 Sodium Chloride IVPB Infused Q12H VU Infusion Melatonin 3 mg 12/09/24 21:00 12/12/24 21:20 Melatonin 3 Mg Tablet PO 3 mg HS VU Administration Morphine Sulfate 15 mg 12/02/24 09:47 12/13/24 05:58 Morphine Sulfate (*Crx) 15 Mg Tab Ir PO 15 mg Q8H PRN Administration SEVERE PAIN Ondansetron HCl 4 mg 12/01/24 22:35 Ondansetron Inj 4 Mg/2 Ml Vial IV PUSH Q4H PRN Nausea Pantoprazole Sodium 40 mg 12/02/24 09:50 12/13/24 08:31 Pantoprazole 40 Mg Tablet PO 40 mg QAM VU Administration Radiology Results: ITS Impressions Chest X-Ray 12/01/24 21:09 IMPRESSION: No acute cardiopulmonary process. Head CT 12/01/24 21:34 IMPRESSION: No acute intracranial process. CT findings that may represent acute right maxillary sinusitis in the appropriate clinical context. Chest/Abdomen/Pelvis CT 12/01/24 21:35 IMPRESSION: No acute finding in the chest. Mild cardiomegaly. CT findings suggestive of pulmonary hypertension. Persistent soft tissue density material and stranding in the gallbladder fossa, likely representing resolving postinfectious/postsurgical change. 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 Recommend MRI of the abdomen without contrast for further evaluation. Pelvis CT 12/08/24 11:31 IMPRESSION: 1. Lag screw fixation at the proximal right femur presumably for old healed fracture. No acute osseous abnormality. 2. Severe lower lumbar spondylosis. Knee CT 12/08/24 13:19 IMPRESSION: 1. Nonspecific large right knee joint effusion. Given the presence of bacteremia and knee pain would recommend diagnostic arthrocentesis. 2. 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 Labs Labs: Laboratory Results - last 24 hr 12/12/24 12/13/24 17:50 04:11 WBC 10.6 H RBC 2.67 L Hgb 7.4 L Hct 24.7 L MCV 92.5 MCH 27.7 MCHC 30.0 L RDW 15.9 H Plt Count 446 H MPV 9.1 Immature Gran % (Auto) 2.5 H Neut % (Auto) 63.3 Lymph % (Auto) 21.4 [place] % (Auto) 10.5 H Eos % (Auto) 1.7 Baso % (Auto) 0.6 Lymph # (Auto) 2.27 [place] # (Auto) 1.1 H Eos # (Auto) 0.2 Baso # (Auto) 0.1 Abs Immat Gran (auto) 0.27 H Absolute Neuts (auto) 6.7 Absolute Nucleated RBC 0.000 Nucleated RBC % 0.0 Sodium 135 L Potassium 4.3 Chloride 103 Carbon Dioxide 30 Anion Gap 2 L BUN 21 H Creatinine 1.38 H Estim Creat Clear Calc 37 Estimated GFR 49 L Glucose 116 H Calcium 8.9 Magnesium 1.5 L Total Bilirubin 0.3 AST 102 H ALT 81 H Alkaline Phosphatase 121 Total Protein 5.9 L Albumin 2.5 L Stl Occult Blood (IFOB) Positive H
[2024-12-13 14:00] VITALS: BP 158/70; PULSE 96; RESP 20; TEMP 36.6; O2SAT 99
[2024-12-13] MEDS: DAPTOmycin 500 MG in SODIUM CHLORIDE 0.9% IV 50 ML 100 MG IVPB (14:00)
--- NOTE | 2024-12-13 15:15 | PM.CNGS ---
Assessment and Plan Assessment and plan (1) Enterococcal bacteremia: Code(s): R78.81 - Bacteremia; B95.2 - Enterococcus as the cause of diseases classified elsewhere Status: Acute Assessment and Plan: The patient presents with recurrent enterococcal bacteremia, which is the same organism as it was in September when he was treated for bacteremia and cholangitis with choledocholithiasis. He is about 2 months following an ERCP and a difficult laparoscopic cholecystectomy. There is no evidence on the CT scan on this admission for an intraabdominal abscess, bowel injury, or any other cause for the bacteremia related to his surgery. To note, there is an enlarging pancreatic mass that was not present in September and has grown since his CT scan in October. Infectious disease is following and consulted Ortho to evaluate a knee effusion for possible septic arthritis. Knee aspiration was performed on 12/10 with cultures pending. Other possible sources for the bacteremia could be retained gallstones in the common bile duct, an infection related to the pancreas, or an infected hematoma related to bleeding following the ERCP. To note, his bilirubin was normal previously when he had choledocholithiasis in September and is still normal now. GI evaluated the patient initially when he was admitted, but has not re-evaluated the patient in over a week. They had initially recommended an outpatient endoscopic ultrasound, which has been rescheduled twice at [facility] since he is still admitted. We would recommend transfer to a tertiary care facility as soon as a bed is available to further evaluate the pancreatic mass as a potential source for the bactermia. No surgical indications at this time. Thank you for allowing me to see the patient in consultation. (2) History of laparoscopic cholecystectomy: Code(s): Z90.49 - Acquired absence of other specified parts of digestive tract Status: Acute (3) Acute anemia: Code(s): D64.9 - Anemia, unspecified Status: Acute (4) Mass of head of pancreas: Code(s): K86.89 - Other specified diseases of pancreas Status: Acute (5) Type 2 diabetes mellitus with hyperglycemia, without long-term current use of insulin: Code(s): E11.65 - Type 2 diabetes mellitus with hyperglycemia Status: Chronic (6) Chronic anticoagulation: Code(s): Z79.01 - assisted (current) use of anticoagulants Status: Acute (7) DVT (deep venous thrombosis): Code(s): I82.409 - Acute embolism and thrombosis of unspecified deep veins of unspecified lower extremity Status: Acute Assessment and Plan: (8) History of transcatheter aortic valve replacement (TAVR): Code(s): Z95.2 - Presence of prosthetic heart valve Status: Acute (9) Effusion of knee joint right: Code(s): M25.461 - Effusion, right knee Status: Acute (10) Stage 4 chronic kidney disease: Code(s): N18.4 - Chronic kidney disease, stage 4 (severe) Status: Chronic Plan I have discussed the patient's case and plan of care with Dr. Brennan. History of Present Illness Consult details Consult date: 12/13/24 Reason for consult: other (S/p laparoscopic cholecystectomy with anemia and bacteremia) Requesting physician: Janae Montague FNP Narrative: This is an 89-year-old man with multiple medical problems, who is known to our service from a previous hospitalization from 09/30/2024 - 10/24/2024 for LEROY, Enterococcus bacteremia, choledocholithiasis with cholangitis and acute on chronic cholecystitis. He had an ERCP on 10/16/2024 with removal of 10 gallstones and a very difficult laparoscopic cholecystectomy on 10/18/[address] Brennan. His hospitalization was complicated by a lower extremity DVT. He was anticoagulated and was discharged on both Plavix and Eliquis. He returned to the ED from home on 12/01/2024 due to altered mental status. His also reports complaints of right hip pain and knee pain. His right groin and hip pain, as well as chronic back pain, has been ongoing for months. His knee pain started after twisting his knee when his legs gave out at home and his reportedly caught him before hitting the ground. Initial workup showed profound anemia with a hemoglobin of 5.2, WBC count 10.5, and creatinine was 2.49 which was up slightly from his recent discharge at 2.13. He had a low grade fever on admission, but no fevers since. He had blood cultures drawn on 12/01 that have grown enterococcus faecalis, which is the same organism from his hospitalization in September. He did have negative blood cultures before discharged and completed a course of Ampicillin in September. CT scan of the chest, abdomen and pelvis showed persistent soft tissue density material and stranding in the gallbladder fossa likely representing resolving postinfectious/postsurgical change, enlarging pancreatic head mass, and findings suggestive of pulmonary hypertension. GI consulted and feel the pancreatic mass, may actually be related to a delayed duodenal bleed following the ERCP in September. He is not able to have an MRCP due to his pacemaker. He was transfused and his hemoglobin has remained relatively stable over the past week. GI set him up for an endoscopic ultrasound at [facility], but patient has had to reschedule this at least twice due to this prolonged hospitalization. Cardiology was also consulted, and performed a ADOLFO that was negative for any vegetations or evidence of endocarditis. His main complaint since readmission is abdominal pain, which he points to his right groin and right hip when describing this pain. He states it has slowly progressed since admission. His pain goes into his right knee and into his lower back. He states his back pain is primarily in the right posterior hip location when I examined him.Infectious disease consulted and following. Knee and pelvis CT with findings of right knee effusion. Orthopedics was consulted and performed an aspiration of the right knee. Fluid from the aspiration was sent for cultures, but the specimen clotted and some tests were unable to be performed. We are now consulted for the bacteremia and anemia in the setting of a relatively recent laparoscopic cholecystectomy. The patient had blood cultures on 12/01 that grew enterococcus and repeat cultures were drawn on 12/06. He was on single-agent Rocephin initially, which was changed to Ampicillin on 12/06. Repeat blood cultures were drawn on 12/10 and are still pending. He was recently switched to IV Daptomycin due to slow rise in his LFTs. ID pharmacist is following. 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 URI (upper respiratory infection) Preoperative clearance History of colon polyps Dupuytren's contracture of right hand Pre-operative clearance Trigger finger, right middle finger Iron deficiency anemia Low back pain radiating to left leg Type II diabetes mellitus with renal manifestations Essential hypertension, benign Mixed hyperlipidemia Bilateral inguinal hernia Small fat containing bilateral inguinal hernias noted on CT 09/30/2024 Hepatic steatosis Chronic pain GERD (gastroesophageal reflux disease) Dyslipidemia BPH (benign prostatic hyperplasia) Type 2 diabetes mellitus Hypertension Hyperlipidemia Chronic kidney disease Heart failure 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 moderate mitral valve regurgitation Surgical History Surgical History (Updated 12/13/24 @ 15:51 by ERAN Black) History of laparoscopic cholecystectomy History of repair of right rotator cuff (~07/05/14) Subacromial Decompression; Limited Debridement Status post cataract extraction of both eyes with insertion of intraocular lens 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 He has 3 children. He is a retired [employer]. He he is a lifelong nonsmoker and does not drink alcohol or use illicit substances. He ambulates with a walker. Code status: Full code (he states he would not want long-term intubation or feeding tube) Surrogate decision maker: Nallely () Smoking status: Never smoker Second hand tobacco smoke exposure: No Alcohol intake: never Substance use: never Do You Feel Safe in your Home?: Yes Lack of Transportation: No Lack of Food: Never True Current Housing: I Have Housing Concerned About Future Housing: No Difficulty Paying Gas/Electric Bills: No Difficulty Paying for Meds: No Currently Unemployed: No Education: Don't Know Difficulty w/ Childcare or Family Care: No Living arrangements: with family Gender identity (if verbalized by the patient): Male Spiritual care concerns: No Meds Home Medications and Allergies Home Medications ?Medication ?Instructions ?Recorded ?Confirmed ?Type furosemide 40 mg tablet See Rx Instructions .Route 08/02/24 12/02/24 Rx .COMPLEX #180 tabs doxazosin 4 mg tablet (Cardura) 4 mg PO QHS #30 tabs 08/08/24 12/02/24 Rx clopidogrel 75 mg tablet (Plavix) 75 mg PO DAILY 09/30/24 12/02/24 History docusate sodium 100 mg capsule 100 mg PO DAILY 09/30/24 12/02/24 History (Colace) fluticasone propionate 50 2 spray intranasal DAILY PRN 09/30/24 12/02/24 History mcg/actuation nasal allergy symptoms spray,suspension (Flonase Allergy Relief) metolazone 5 mg tablet 5 mg PO DAILY 09/30/24 12/02/24 History verapamil 120 mg tablet 120 mg PO DAILY 09/30/24 12/02/24 History Saccharomyces boulardii 250 mg 250 mg PO BID #60 caps 10/24/24 12/02/24 Rx capsule (Florastor) apixaban 5 mg tablet (Eliquis) 5 mg PO Q12HR #60 tabs 10/24/24 12/02/24 Rx pantoprazole 40 mg tablet,delayed 40 mg PO QAM #40 tabs 10/24/24 12/02/24 Rx release polyethylene glycol 3350 17 gram 17 g PO QAM #14 ea 10/24/24 12/02/24 Rx oral powder packet (Miralax) ezetimibe 10 mg tablet (Zetia) 10 mg PO DAILY #90 tabs 10/30/24 12/02/24 Rx famotidine 20 mg tablet (Acid 20 mg PO BID #180 tabs 10/30/24 12/02/24 Rx Controller) finasteride 5 mg tablet 5 mg PO DAILY #90 tabs 10/30/24 12/02/24 Rx pioglitazone 15 mg tablet (Actos) 15 mg PO DAILY #90 tabs 10/30/24 12/02/24 Rx methocarbamol 750 mg tablet 750 mg PO TID PRN muscle spasm #30 11/06/24 12/02/24 Rx tabs prednisone 20 mg tablet 40 mg (2 x 20 mg) PO DAILY 4 days 11/06/24 12/02/24 Rx #8 tabs morphine 15 mg immediate release 15 mg PO Q8H PRN pain #80 tabs 11/20/24 12/02/24 Rx tablet Allergies Allergy/AdvReac Type Severity Reaction Status Date / Time atorvastatin Allergy Unknown myalgia Verified 12/01/24 19:32 rosuvastatin Allergy Unknown myalgia Verified 12/01/24 19:32 Vital Signs Vital Signs - 24 hr 12/12/24 20:00 12/12/24 20:04 12/12/24 20:13 Temperature 97.9 F Pulse Rate 103 H 103 H Respiratory Rate 20 Blood Pressure 178/81 H Pulse Oximetry 100 100 Oxygen Delivery Room Air Room Air 12/13/24 04:05 Temperature 97.7 F Pulse Rate 93 Respiratory Rate 20 Blood Pressure 162/68 H Pulse Oximetry 99 Oxygen Delivery Exam Const: General: comfortable and no acute distress Nutritional Appearance: overweight Orientation/consciousness: patient oriented x3 HENMT: Head: normocephalic and atraumatic Ears: hearing grossly normal bilaterally Mouth: Yes moist mucous membranes Eyes: General: appearance normal, both eyes and all related structures Pupils: Equal, round and reactive pupils present Neck: Neck: normal visual inspection and full ROM Chest: Chest palpation & inspection: Pacemaker present Resp: Effort & Inspection: no respiratory distress Auscultation: clear to auscultation bilaterally Cardio: Rate: regular rate Rhythm: regular rhythm Peripheral pulses: Peripheral pulses 2+ throughout GI: Inspection: non-distended and scar (port site incisions well healed) GI Palp: Yes Soft to palpation, Yes Tenderness to palpation present (GI) (Mild RLQ tenderness extending to the right groin), No Guarding due to palpation present (GI), No Hernia present and No Rebound tenderness present Auscultation: normal bowel sounds Skin: General skin exam: normal color Neuro: General: moves all extremities and no focal motor deficits Speech: normal speech Extrem: Right lower extremity: normal capillary refill, edema (Diffuse edema around the right hip on to the dependent aspect of the thigh) Details: pitting and 2+, hip/thigh Details: tenderness (Diffusely tender) Location: of the hip, of the proximal upper leg and of the mid upper leg and swelling; no ecchymosis, no crepitus, no deformity and no unusual warmth, knee Details: tenderness (Diffuse), swelling (Diffuse, mild) and other (No redness); no unusual warmth, ankle Details: normal to inspection; no tenderness and no swelling and foot Details: vascular exam Details: dorsalis pedis pulse present Psych: Mental Status: mental status grossly normal Attitude: cooperative Insight: Good insight present (Psych) Judgement: Good judgement present (Psych) Results Labs 12/13/24 04:11 12/13/24 04:11 Labs: Abnormal lab results 12/12/24 12/13/24 Range/Units 17:50 04:11 WBC 10.6 H (4.5-10.0) K/mm3 RBC 2.67 L (4.6-6.20) M/mm3 Hgb 7.4 L (14.0-18.0) g/dL Hct 24.7 L (42.0-52.0) % MCHC 30.0 L (32-36) g/dl RDW 15.9 H (11.5-14.5) % Plt Count 446 H (150-375) k/mm3 Immature Gran % (Auto) 2.5 H (0-0.5) % [place] % (Auto) 10.5 H (2.6-8.5) % [place] # (Auto) 1.1 H (0.1-0.6) K/mm3 Abs Immat Gran (auto) 0.27 H (0.00-0.031) K/mm3 Sodium 135 L (137-145) mmol/L Anion Gap 2 L (4-12) mmol/L BUN 21 H (9-20) mg/dL Creatinine 1.38 H (0.7-1.3) mg/dL Estimated GFR 49 L (59 - ) Glucose 116 H (65-110) mg/dL Magnesium 1.5 L (1.6-2.3) mg/dL AST 102 H (17-59) U/L ALT 81 H (6-50) U/L Total Protein 5.9 L (6.3-8.2) g/dL Albumin 2.5 L (3.5-5.1) g/dL Stl Occult Blood (IFOB) Positive H (N) Diabetes panel 12/13/24 Range/Units 04:11 Sodium 135 L (137-145) mmol/L Potassium 4.3 (3.4-5.0) mmol/L Chloride 103 (98-107) mmol/L Carbon Dioxide 30 (22-30) mmol/L BUN 21 H (9-20) mg/dL Creatinine 1.38 H (0.7-1.3) mg/dL Glucose 116 H (65-110) mg/dL Calcium 8.9 (8.4-10.2) mg/dL AST 102 H (17-59) U/L ALT 81 H (6-50) U/L Alkaline Phosphatase 121 (38-126) U/L Total Protein 5.9 L (6.3-8.2) g/dL Albumin 2.5 L (3.5-5.1) g/dL Calcium panel 12/13/24 Range/Units 04:11 Calcium 8.9 (8.4-10.2) mg/dL Albumin 2.5 L (3.5-5.1) g/dL Pituitary panel 12/13/24 Range/Units 04:11 Sodium 135 L (137-145) mmol/L Potassium 4.3 (3.4-5.0) mmol/L Chloride 103 (98-107) mmol/L Carbon Dioxide 30 (22-30) mmol/L BUN 21 H (9-20) mg/dL Creatinine 1.38 H (0.7-1.3) mg/dL Glucose 116 H (65-110) mg/dL Calcium 8.9 (8.4-10.2) mg/dL Adrenal panel 12/13/24 Range/Units 04:11 Sodium 135 L (137-145) mmol/L Potassium 4.3 (3.4-5.0) mmol/L Chloride 103 (98-107) mmol/L Carbon Dioxide 30 (22-30) mmol/L BUN 21 H (9-20) mg/dL Creatinine 1.38 H (0.7-1.3) mg/dL Glucose 116 H (65-110) mg/dL Calcium 8.9 (8.4-10.2) mg/dL Total Bilirubin 0.3 (0.2-1.3) mg/dL AST 102 H (17-59) U/L ALT 81 H (6-50) U/L Alkaline Phosphatase 121 (38-126) U/L Total Protein 5.9 L (6.3-8.2) g/dL Albumin 2.5 L (3.5-5.1) g/dL All other labs normal. Imaging Additional studies: ITS Impressions Chest X-Ray 12/01/24 21:09 IMPRESSION: No acute cardiopulmonary process. Head CT 12/01/24 21:34 IMPRESSION: No acute intracranial process. CT findings that may represent acute right maxillary sinusitis in the appropriate clinical context. Chest/Abdomen/Pelvis CT 12/01/24 21:35 IMPRESSION: No acute finding in the chest. Mild cardiomegaly. CT findings suggestive of pulmonary hypertension. Persistent soft tissue density material and stranding in the gallbladder fossa, likely representing resolving postinfectious/postsurgical change. 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 Recommend MRI of the abdomen without contrast for further evaluation. Pelvis CT 12/08/24 11:31 IMPRESSION: 1. Lag screw fixation at the proximal right femur presumably for old healed fracture. No acute osseous abnormality. 2. Severe lower lumbar spondylosis. Knee CT 12/08/24 13:19 IMPRESSION: 1. Nonspecific large right knee joint effusion. Given the presence of bacteremia and knee pain would recommend diagnostic arthrocentesis. 2. 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
[2024-12-13 21:53] VITALS: BP 159/69; PULSE 91; RESP 16; TEMP 36.9; O2SAT 98
[2024-12-13] MEDS: DOXAZOSIN MESYLATE 4 MG TABLET PO (21:53)
[2024-12-13] MEDS: MELATONIN 3 MG TABLET PO (21:53)
[2024-12-14 05:01] LABS: Hematocrit 24.8 % (42.0-52.0); Hemoglobin 7.1 g/dL (14.0-18.0); Immature Granulocyte Percent A 4.1 % (0-0.5); Lymphocytes Absolute Auto 2.27 K/mm3 (0.9-3.2); Mean Corpuscular HGB Conc 28.6 g/dl (32-36); Mean Corpuscular Hemoglobin 27.2 pg (26-34); Mean Corpuscular Volume 95.0 fl (80-100); Nucleated Red Blood Cells Absolute Auto 0.000 K/mm3 (0.0-0.012); Nucleated Red Blood Cells Perc 0.0 % (0.0-0.2); Platelet Count Result 442 k/mm3 (150-375); Red Blood Count 2.61 M/mm3 (4.6-6.20); White Blood Count 10.5 K/mm3 (4.5-10.0)
[2024-12-14 05:11] LABS: Alanine Aminotransferase 64 U/L (6-50); Albumin Level 2.6 g/dL (3.5-5.1); Alkaline Phosphatase 109 U/L (38-126); Anion Gap 3 mmol/L (4-12); Aspartate Amino Transferase 57 U/L (17-59); Bilirubin,Total 0.3 mg/dL (0.2-1.3); Blood Urea Nitrogen 20 mg/dL (9-20); Calcium 8.5 mg/dL (8.4-10.2); Carbon Dioxide 28 mmol/L (22-30); Chloride 100 mmol/L (98-107); Creatine Kinase < 20 U/L (55-170); Estimated CRCL calculation 38 ml/min; Estimated Glomerular Filt Rate 51; Glucose 143 mg/dL (65-110); Magnesium 1.6 mg/dL (1.6-2.3); Potassium 4.0 mmol/L (3.4-5.0); Sodium 131 mmol/L (137-145); Total Protein 5.8 g/dL (6.3-8.2)
[2024-12-14 05:23] LABS: Anisocytosis 1+; Macrocytosis 1+ (NORMAL); Ovalocytes 1+; Schistocytes None Seen
[2024-12-14 05:36] VITALS: BP 159/70; PULSE 95; RESP 16; TEMP 37.1; O2SAT 97
[2024-12-14] MEDS: HYDROmorphone HCL INJ (*CRX) 1 MG/ML SYR 0.5 MG IV PUSH ×3 (05:38→15:14)
[2024-12-14] MEDS: PANTOPRAZOLE 40 MG TABLET PO (07:32)
[2024-12-14] MEDS: DOCUSATE SODIUM 100 MG CAPSULE PO (07:33)
[2024-12-14] MEDS: FINASTERIDE 5 MG TABLET PO (07:33)
[2024-12-14] MEDS: MORPHINE SULFATE (*CRX) 15 MG TAB IR PO ×2 (07:34→17:21)
[2024-12-14] MEDS: FUROSEMIDE 40 MG TABLET PO (07:35)
[2024-12-14] MEDS: DAPTOmycin 500 MG in SODIUM CHLORIDE 0.9% IV 50 ML 100 MG IVPB (09:01)
--- NOTE | 2024-12-14 10:54 | P.PNINF_ITS ---
Progress Note: A&P Assessment and Plan (1) Fever: Code(s): R50.9 - Fever, unspecified Status: Acute (2) Enterococcal bacteremia: Code(s): R78.81 - Bacteremia; B95.2 - Enterococcus as the cause of diseases classified elsewhere Status: Acute (3) Effusion of knee joint right: Code(s): M25.461 - Effusion, right knee Status: Acute (4) Elevated LFTs: Code(s): R79.89 - Other specified abnormal findings of blood chemistry Status: Acute (5) Leukocytosis: Qualifiers: Leukocytosis type: leukemoid reaction Qualified Code(s): D72.823 - Leukemoid reaction Code(s): D72.829 - Elevated white blood cell count, unspecified Status: Acute Plan # 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 Patient presenting with decreased hemoglobin. Right lower quadrant pain versus hip pain. 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 ADOLFO negative 12/07 Assessing for right hip involvement versus right knee. Possible [place] septic arthritis of right knee based on effusion with large neutrophil percentage; however, full cell count could not be performed due to clotting And aspiration fluid culture negative to date. culture performed while on antibiotics. With new anemia of unclear etiology. Hemoglobin has been stable of late. 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 Could be infected and source. Underwent cholecystectomy and manipulation of the biliary tract in September of 2024 with gallbladder culture positive for Enterococcus at that time # Pacemaker. # Right hip fracture. With pinning. No CHANA. # Right knee effusion. Rule out septic arthritis, as per above. # Lower back pain. # Mild transaminitis. May be associated with ceftriaxone use and will follow. Low-grade transaminitis persists. # Leukocytosis. May be secondary to Solu-Medrol dosed 12/10. Also with anemia and intermittent drop in hemoglobin. Improving. Plan: -- Continue to follow repeat blood cultures which are no growth to date. Follow right knee cultures. -- With continued transaminitis recommend transitioning from ceftriaxone to ampicillin to daptomycin 500 mg IV Q 24 hours. Consider IV antibiotics now day 9 of potential 14 if repeat blood cultures as well as knee aspiration cultures remain negative. Anticipate an additional 14 day course of oral linezolid after completing IV antibiotic. if discharged being considered may transition to oral linezolid 600 mg q.12 hours and continue through 01/02/2025. -- monitor liver enzymes off of ceftriaxone and ampicillin. -- await LS spine x-rays. This was done via telemedicine with sd in [place] and with inpatient at [facility] in [place], [place]. With consent. HIPPA protected audiovisual interface. Subjective Date/time seen: 12/14/24 10:54 Interval history: 12/12/2024: Patient is awake and alert and interactive. Still complaining of right lower quadrant and hip pain but right knee pain and swelling diminished. Right knee aspiration cultures remain pending. 12/10 blood cultures remain pending as well. 12/13/2024: Afebrile with improvement in leukocytosis that was identified yesterday. 12/10 blood and knee aspiration cultures negative at 24 hours. 12/14/2024: Afebrile vital signs stable. Continues to complain of right hip, right knee, and lower back pain. Hip x-ray shows right hip hardware in good position. LS spine films pending White blood cell count 10.4. AST 64. CPK less than 20. Blood cultures 12/10: Negative at 24 hours. Synovial aspirate culture 12/10: Negative aerobic and pending anaerobic cultures. Review of Systems Review of Systems: Continues to complain of right lower quadrant and right knee pain knee pain. Also complaining of lower back pain. All systems reviewed & are unremarkable except as noted in HPI and below Exam Narrative: Awake and alert and interactive. Comfortable in appearance. Breathing comfortably. No tachycardia. Abdomen without significant distention. Left arm with phlebotomy site ecchymosis with out cellulitis. Right knee remains with residual swelling , possibly increased today, as compared with left knee although without warmth or erythema. Objective Data Vital Signs Vital Signs: Vital Signs - 24 hr 12/13/24 14:00 12/13/24 20:00 12/13/24 21:53 Temperature 97.8 F 98.5 F Pulse Rate 96 91 Respiratory Rate 20 16 Blood Pressure 158/70 H 159/69 H Pulse Oximetry 99 98 Oxygen Delivery Room Air 12/14/24 05:36 Temperature 98.7 F Pulse Rate 95 Respiratory Rate 16 Blood Pressure 159/70 H Pulse Oximetry 97 Oxygen Delivery Intake/Output Intake/Output: Intake & Output 12/11/24 12/12/24 12/13/24 12/14/24 23:59 23:59 23:59 23:59 Intake Total 2640 3120 1661 830 Output Total 2806 1340 3302 900 Balance -70 Meds/Results Medications: Active Medications Generic Name Dose Route Start Last Admin Trade Name Freq PRN Reason Stop Dose Admin Acetaminophen 650 mg 12/01/24 22:35 12/12/24 21:19 Acetaminophen 325 Mg Tablet PO 650 mg Q4H PRN Administration Mild Pain (1-3) or Fever Dextrose 12.5 gm 12/02/24 09:48 Dextrose 50% 25 Gm/50 Ml Syringe IV PUSH PRN PRN Hypoglycemia Protocol Docusate Sodium 100 mg 12/07/24 21:00 12/14/24 07:33 Docusate Sodium 100 Mg Capsule PO 100 mg Q12HR VU Administration Doxazosin Mesylate 4 mg 12/02/24 21:00 12/13/24 21:53 Doxazosin Mesylate 4 Mg Tablet PO 4 mg QHS VU Administration Finasteride 5 mg 12/02/24 09:00 12/14/24 07:33 Finasteride 5 Mg Tablet PO 5 mg DAILY VU Administration Fluticasone Propionate 2 spray 12/02/24 03:58 12/12/24 08:30 Fluticasone Propionate 0.05% Na Spr 16 Gm Btl (*Bkc) NASAL 2 spray DAILY PRN Administration allergy symptoms Furosemide 40 mg 12/12/24 16:25 12/14/24 07:35 Furosemide 40 Mg Tablet PO 40 mg DAILY VU Administration Glucose 15 gm 12/02/24 09:48 Glucose Oral Gel 15 Gm Of Glucse In 37.5 Gm Tube PO PRN PRN Hypoglycemia Protocol Hydromorphone HCl 0.5 mg 12/08/24 17:55 12/14/24 10:45 Hydromorphone Hcl Inj (*Crx) 1 Mg/Ml Syr IV PUSH 0.5 mg Q4H PRN Administration Pain Rated 7-10 Dextrose 1,000 mls @ 100 mls/hr 12/02/24 09:48 Dextrose 5% 1,000 Ml IVPB PRN PRN Hypoglycemia Protocol Daptomycin 500 mg/ Sodium 50 mls @ 100 mls/hr 12/13/24 14:00 12/14/24 09:01 Chloride IVPB 100 mls/hr DAILY VU Administration Melatonin 3 mg 12/09/24 21:00 12/13/24 21:53 Melatonin 3 Mg Tablet PO 3 mg HS VU Administration Morphine Sulfate 15 mg 12/02/24 09:47 12/14/24 07:34 Morphine Sulfate (*Crx) 15 Mg Tab Ir PO 15 mg Q8H PRN Administration SEVERE PAIN Ondansetron HCl 4 mg 12/01/24 22:35 Ondansetron Inj 4 Mg/2 Ml Vial IV PUSH Q4H PRN Nausea Pantoprazole Sodium 40 mg 12/02/24 09:50 12/14/24 07:32 Pantoprazole 40 Mg Tablet PO 40 mg QAM VU Administration Radiology Results: ITS Impressions Chest X-Ray 12/01/24 21:09 IMPRESSION: No acute cardiopulmonary process. Head CT 12/01/24 21:34 IMPRESSION: No acute intracranial process. CT findings that may represent acute right maxillary sinusitis in the appropriate clinical context. Chest/Abdomen/Pelvis CT 12/01/24 21:35 IMPRESSION: No acute finding in the chest. Mild cardiomegaly. CT findings suggestive of pulmonary hypertension. Persistent soft tissue density material and stranding in the gallbladder fossa, likely representing resolving postinfectious/postsurgical change. 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 Recommend MRI of the abdomen without contrast for further evaluation. Pelvis CT 12/08/24 11:31 IMPRESSION: 1. Lag screw fixation at the proximal right femur presumably for old healed fracture. No acute osseous abnormality. 2. Severe lower lumbar spondylosis. Knee CT 12/08/24 13:19 IMPRESSION: 1. Nonspecific large right knee joint effusion. Given the presence of bacteremia and knee pain would recommend diagnostic arthrocentesis. 2. 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 Labs Labs: Laboratory Results - last 24 hr 12/14/24 04:33 WBC 10.5 H RBC 2.61 L Hgb 7.1 L Hct 24.8 L MCV 95.0 MCH 27.2 MCHC 28.6 L RDW 16.3 H Plt Count 442 H MPV 8.5 Immature Gran % (Auto) 4.1 H Neut % (Auto) 59.7 Lymph % (Auto) 21.7 [place] % (Auto) 11.4 H Eos % (Auto) 2.5 Baso % (Auto) 0.6 Lymph # (Auto) 2.27 [place] # (Auto) 1.2 H Eos # (Auto) 0.3 Baso # (Auto) 0.1 Abs Immat Gran (auto) 0.43 H Absolute Neuts (auto) 6.3 Absolute Nucleated RBC 0.000 Band Neutrophils % Not Reportable Nucleated RBC % 0.0 Platelet Estimate Increased Anisocytosis 1+ Macrocytosis 1+ Ovalocytes 1+ Schistocytes None seen Sodium 131 L Potassium 4.0 Chloride 100 Carbon Dioxide 28 Anion Gap 3 L BUN 20 Creatinine 1.33 H Estim Creat Clear Calc 38 Estimated GFR 51 L Glucose 143 H Calcium 8.5 Magnesium 1.6 Total Bilirubin 0.3 AST 57 ALT 64 H Alkaline Phosphatase 109 Total Creatine Kinase < 20 L Total Protein 5.8 L Albumin 2.6 L
--- NOTE | 2024-12-14 11:58 | PM.IMPN ---
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(s): Z79.01 - [employer] (current) use of anticoagulants Status: Acute Assessment and Plan: Hold Eliquis due to anemia possibly pancreatic head hematoma Peroneal vein DVT Hold Eliquis until follow up at [facility] for EUS (2) Type 2 diabetes mellitus with hyperglycemia, without long-term current use of insulin: Code(s): E11.65 - Type 2 diabetes mellitus with hyperglycemia Status: Chronic Assessment and Plan: SSI Hypoglycemia protocol (3) Acute anemia: Code(s): D64.9 - Anemia, unspecified Status: Acute Assessment and Plan: -Possible delayed intramural duodenal bleed following the relatively recent ERCP vs Discussed with radiologist who agrees the possibility of hematoma in pancreas head -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 -Pending outpatient endoscopic ultrasound at [facility], Family and [facility] staff in touch for the scheduling -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 could be infected and source. -With recent cholecystectomy and manipulation of the biliary tract September 2024. 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 Awaiting transfer EUS eval of pancreatic mass (suspect for source of infection) Plan DVT prophylaxis on SCDs, AC on hold due to possible pancreatic head hematoma Subjective Date/time seen: 12/14/24 11:58 Interval history: Complained of right hip pain Tenderness on exam, XR pending Awaiting transfer to [facility] Review of Systems Review of Systems: As reviewed above in HPI All systems reviewed & are unremarkable except as noted in HPI and below (Subjective) Constitutional: Constitutional: Reports as per HPI, Denies chills, Reports fatigue and Denies fever(s) ENT: Denies dizziness Cardiovascular: Cardiovascular: Reports as per HPI, Denies chest pain, Denies syncope, Denies irregular heart rhythm and Denies dyspnea Respiratory: Respiratory: Reports as per HPI and Denies dyspnea Gastrointestinal: Gastrointestinal: Reports as per HPI and Denies abdominal pain Genitourinary: Genitourinary: Reports as per HPI and Denies dysuria Musculoskeletal: Musculoskeletal: Reports as per HPI Neurologic: Reports as per HPI, Denies dizziness and Denies syncope Endocrine: Endocrine: Reports fatigue Exam Narrative: GENERAL: Ill-appearing, tachycardic, febrile HEAD: Normocephalic EYES: Pupils equal and reactive ENT: Nares clear, no rhinorrhea or epistaxis. Mucous membranes moist. NECK: Supple. CHEST: Clear to auscultation, no respiratory distress or tachypnea HEART: [Regular rate and rhythm]. No murmur heard. [Normal peripheral pulses.] ABDOMEN: [Soft, nondistended], tender to palpation, [No rigidity or guarding] EXTREMITIES: Normal range of motion. No edema Pain reproduced with any range of motion of his extremities SKIN: Warm, dry, no rash. NEURO: Able to move his extremities, alert oriented x1, confused and repeats answers to questions, slow to respond to questioning, no facial asymmetry slurring of his speech Const: General: comfortable, no acute distress and obese Nutritional Appearance: obese Orientation/consciousness: oriented to person, oriented to place and oriented to time HENMT: Mouth: Yes moist mucous membranes Eyes: Pupils: Equal, round and reactive pupils present Neck: Neck: supple Resp: Effort & Inspection: normal respiratory effort Auscultation: clear to auscultation bilaterally Cardio: Rate: regular rate Rhythm: regular rhythm Heart sounds: no murmurs Peripheral pulses: dorsalis pedis present GI: Inspection: non-distended Neuro: General: oriented to person, oriented to place and oriented to time Cranial nerves: Yes Equal, round and reactive pupils present Extrem: General: no edema Right lower extremity: no edema Left lower extremity: no edema Other: 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, no erythema, no fluctuance Objective Data Vital Signs Vital Signs: Vital Signs - 24 hr 12/13/24 14:00 12/13/24 20:00 12/13/24 21:53 Temperature 97.8 F 98.5 F Pulse Rate 96 91 Respiratory Rate 20 16 Blood Pressure 158/70 H 159/69 H Pulse Oximetry 99 98 Oxygen Delivery Room Air 12/14/24 05:36 Temperature 98.7 F Pulse Rate 95 Respiratory Rate 16 Blood Pressure 159/70 H Pulse Oximetry 97 Oxygen Delivery Intake/Output Intake/Output: Intake & Output 12/11/24 12/12/24 12/13/24 12/14/24 23:59 23:59 23:59 23:59 Intake Total 2640 3120 1665 880 Output Total 2500 3200 3675 1650 Balance -770 Meds/Results Medications: Active Medications Generic Name Dose Route Start Last Admin Trade Name Freq PRN Reason Stop Dose Admin Acetaminophen 650 mg 12/01/24 22:35 12/12/24 21:19 Acetaminophen 325 Mg Tablet PO 650 mg Q4H PRN Administration Mild Pain (1-3) or Fever Dextrose 12.5 gm 12/02/24 09:48 Dextrose 50% 25 Gm/50 Ml Syringe IV PUSH PRN PRN Hypoglycemia Protocol Docusate Sodium 100 mg 12/07/24 21:00 12/14/24 07:33 Docusate Sodium 100 Mg Capsule PO 100 mg Q12HR VU Administration Doxazosin Mesylate 4 mg 12/02/24 21:00 12/13/24 21:53 Doxazosin Mesylate 4 Mg Tablet PO 4 mg QHS VU Administration Finasteride 5 mg 12/02/24 09:00 12/14/24 07:33 Finasteride 5 Mg Tablet PO 5 mg DAILY VU Administration Fluticasone Propionate 2 spray 12/02/24 03:58 12/12/24 08:30 Fluticasone Propionate 0.05% Na Spr 16 Gm Btl (*Bkc) NASAL 2 spray DAILY PRN Administration allergy symptoms Furosemide 40 mg 12/12/24 16:25 12/14/24 07:35 Furosemide 40 Mg Tablet PO 40 mg DAILY VU Administration Glucose 15 gm 12/02/24 09:48 Glucose Oral Gel 15 Gm Of Glucse In 37.5 Gm Tube PO PRN PRN Hypoglycemia Protocol Hydromorphone HCl 0.5 mg 12/08/24 17:55 12/14/24 10:45 Hydromorphone Hcl Inj (*Crx) 1 Mg/Ml Syr IV PUSH 0.5 mg Q4H PRN Administration Pain Rated 7-10 Dextrose 1,000 mls @ 100 mls/hr 12/02/24 09:48 Dextrose 5% 1,000 Ml IVPB PRN PRN Hypoglycemia Protocol Daptomycin 500 mg/ Sodium 50 mls @ 100 mls/hr 12/13/24 14:00 12/14/24 09:31 Chloride IVPB Infused DAILY VU Infusion Melatonin 3 mg 12/09/24 21:00 12/13/24 21:53 Melatonin 3 Mg Tablet PO 3 mg HS VU Administration Morphine Sulfate 15 mg 12/02/24 09:47 12/14/24 07:34 Morphine Sulfate (*Crx) 15 Mg Tab Ir PO 15 mg Q8H PRN Administration SEVERE PAIN Ondansetron HCl 4 mg 12/01/24 22:35 Ondansetron Inj 4 Mg/2 Ml Vial IV PUSH Q4H PRN Nausea Pantoprazole Sodium 40 mg 12/02/24 09:50 12/14/24 07:32 Pantoprazole 40 Mg Tablet PO 40 mg QAM VU Administration Radiology Results: ITS Impressions Chest X-Ray 12/01/24 21:09 IMPRESSION: No acute cardiopulmonary process. Head CT 12/01/24 21:34 IMPRESSION: No acute intracranial process. CT findings that may represent acute right maxillary sinusitis in the appropriate clinical context. Chest/Abdomen/Pelvis CT 12/01/24 21:35 IMPRESSION: No acute finding in the chest. Mild cardiomegaly. CT findings suggestive of pulmonary hypertension. Persistent soft tissue density material and stranding in the gallbladder fossa, likely representing resolving postinfectious/postsurgical change. 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 Recommend MRI of the abdomen without contrast for further evaluation. Pelvis CT 12/08/24 11:31 IMPRESSION: 1. Lag screw fixation at the proximal right femur presumably for old healed fracture. No acute osseous abnormality. 2. Severe lower lumbar spondylosis. Knee CT 12/08/24 13:19 IMPRESSION: 1. Nonspecific large right knee joint effusion. Given the presence of bacteremia and knee pain would recommend diagnostic arthrocentesis. 2. 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 Labs Labs: Laboratory Results - last 24 hr 12/14/24 04:33 WBC 10.5 H RBC 2.61 L Hgb 7.1 L Hct 24.8 L MCV 95.0 MCH 27.2 MCHC 28.6 L RDW 16.3 H Plt Count 442 H MPV 8.5 Immature Gran % (Auto) 4.1 H Neut % (Auto) 59.7 Lymph % (Auto) 21.7 [place] % (Auto) 11.4 H Eos % (Auto) 2.5 Baso % (Auto) 0.6 Lymph # (Auto) 2.27 [place] # (Auto) 1.2 H Eos # (Auto) 0.3 Baso # (Auto) 0.1 Abs Immat Gran (auto) 0.43 H Absolute Neuts (auto) 6.3 Absolute Nucleated RBC 0.000 Band Neutrophils % Not Reportable Nucleated RBC % 0.0 Platelet Estimate Increased Anisocytosis 1+ Macrocytosis 1+ Ovalocytes 1+ Schistocytes None seen Sodium 131 L Potassium 4.0 Chloride 100 Carbon Dioxide 28 Anion Gap 3 L BUN 20 Creatinine 1.33 H Estim Creat Clear Calc 38 Estimated GFR 51 L Glucose 143 H Calcium 8.5 Magnesium 1.6 Total Bilirubin 0.3 AST 57 ALT 64 H Alkaline Phosphatase 109 Total Creatine Kinase < 20 L Total Protein 5.8 L Albumin 2.6 L
--- NOTE | 2024-12-14 13:23 | PCOTNOTE ---
Attempted to see Patient at this time. Patient and his declined services at this time. Stated he is going down for testing for his Right hip, has alreasy been up in the chair today and needs to be in bed for testing.
[2024-12-14 14:00] VITALS: BP 174/67; PULSE 113; RESP 16; TEMP 37.6; O2SAT 100
--- NOTE | 2024-12-14 14:50 | PCPTNOTE ---
Patient refused treatment this session due to right hip pain. Encouraged patient for participation, patient continued to refuse.
--- NOTE | 2024-12-15 14:03 | P.TS_ITS ---
Transfer Discharge Sum: Prov Provider Date of admission: 12/01/24 22:35 Primary care physician: Stephania Clarke APRN Admitting clinician: Joseph Nguyen MD Consults: 12/01/24 Consult to Physician Routine Comment: Consulting Provider: Kal Palma Reason for consultation: post ERCP, sepsis Has provider been notified: Yes 12/03/24 Wound/ET Consult Routine Reason for Consult:: Wound on buttocks 12/06/24 Consult to Physician Routine Comment: [place]oke to exchange @1200 [place]06 [facility] [place]: Guicho Kunz will call order clerk/MD group to consult: [facility] - id consult Reason for consultation: e faecalis BSI w/ hx of e faecalis BSI Has provider been notified: Yes 12/06/24 11:40 Consult Infectious Disease Pharmacist Routine Comment: Initiate coordination of ID Physician consult. 12/06/24 12:00 Consult Infectious Disease Pharmacist Routine Comment: Initiate coordination of ID Physician consult. 12/06/24 16:57 Consult to Physician Routine Comment: Spoke to Dr. Farnsworth office @ 08:43am ([facility]) Consulting Provider: Rachid Farnsworth will call order clerk/ group to consult: Cardiology Reason for consultation: ADOLFO/Bactremia Has provider been notified: Yes 12/09/24 09:15 Consult to Physician Routine Comment: Sent text message to Dr. Hdz @ 10:05am(-) Consulting Provider: Andrea Talley will call order clerk/MD group to consult: Ortho Reason for consultation: Right knee pain. Has provider been notified: Yes 12/13/24 Consult to Physician Routine Comment: Consulting Provider: Rosendo Brennan will call order clerk/MD group to consult: General Surgery Previous Dr. Brennan patient- prolonged hospitalization post op. Return on 12/01 with anemia. Reason for consultation: S/P Sunni with Anemia/Bacteremia Has provider been notified: Yes DS: Admitting Diagnosis Discharge Date 12/14/24 Admitting Diagnosis anemia and SIRS DS: Discharge Diagnosis Discharge Diagnosis (1) Bacteremia: Code(s): R78.81 - Bacteremia Status: Acute Transfer Discharge Sum: Med Medications Active and Home Medications: Home Medications furosemide 40 mg tablet See Rx Instructions .Route .COMPLEX #180 tabs 08/02/24 [Rx Confirmed 12/02/24] doxazosin 4 mg tablet (Cardura) 4 mg PO QHS #30 tabs 08/08/24 [Rx Confirmed 12/02/24] clopidogrel 75 mg tablet (Plavix) 75 mg PO DAILY 09/30/24 [History Confirmed 12/02/24] docusate sodium 100 mg capsule (Colace) 100 mg PO DAILY 09/30/24 [History Confirmed 12/02/24] fluticasone propionate 50 mcg/actuation nasal spray,suspension (Flonase Allergy Relief) 2 spray intranasal DAILY PRN allergy symptoms 09/30/24 [History Confirmed 12/02/24] metolazone 5 mg tablet 5 mg PO DAILY 09/30/24 [History Confirmed 12/02/24] verapamil 120 mg tablet 120 mg PO DAILY 09/30/24 [History Confirmed 12/02/24] Saccharomyces boulardii 250 mg capsule (Florastor) 250 mg PO BID #60 caps 10/24/24 [Rx Confirmed 12/02/24] apixaban 5 mg tablet (Eliquis) 5 mg PO Q12HR #60 tabs 10/24/24 [Rx Confirmed 12/02/24] pantoprazole 40 mg tablet,delayed release 40 mg PO QAM #40 tabs 10/24/24 [Rx Confirmed 12/02/24] polyethylene glycol 3350 17 gram oral powder packet (Miralax) 17 g PO QAM #14 ea 10/24/24 [Rx Confirmed 12/02/24] ezetimibe 10 mg tablet (Zetia) 10 mg PO DAILY #90 tabs 10/30/24 [Rx Confirmed 12/02/24] famotidine 20 mg tablet (Acid Controller) 20 mg PO BID #180 tabs 10/30/24 [Rx Confirmed 12/02/24] finasteride 5 mg tablet 5 mg PO DAILY #90 tabs 10/30/24 [Rx Confirmed 12/02/24] pioglitazone 15 mg tablet (Actos) 15 mg PO DAILY #90 tabs 10/30/24 [Rx Confirmed 12/02/24] methocarbamol 750 mg tablet 750 mg PO TID PRN muscle spasm #30 tabs 11/06/24 [Rx Confirmed 12/02/24] prednisone 20 mg tablet 40 mg (2 x 20 mg) PO DAILY 4 days #8 tabs 11/06/24 [Rx Confirmed 12/02/24] morphine 15 mg immediate release tablet 15 mg PO Q8H PRN pain #80 tabs 11/20/24 [Rx Confirmed 12/02/24] Transfer Discharge Sum: Hosp Hospital Course Hospital course: History of Present Illness 89-year-old male with a complex medical history including: * Recent choledocholithiasis and enterococcal bacteremia (September 2024) requiring ERCP with removal of 10 gallstones and difficult laparoscopic cholecystectomy. * Hospitalization complicated by lower extremity DVT, managed with Eliquis and Plavix. * Readmitted 12/01/2024 for increasing weakness, lethargy, and profound anemia (Hb 5.2). * Blood cultures positive for Enterococcus faecalis, same organism as prior admission. * Imaging revealed an enlarging mass in the head of the pancreas (not present in September, increased since October), persistent post-surgical changes in the gallbladder fossa, and right knee effusion. * Ongoing right groin/hip/knee pain, chronic back pain, and bilateral lower extremity edema. * Unable to undergo MRI due to pacemaker; EUS at [facility] has been rescheduled twice due to prolonged hospitalization. Hospital Course * Infectious Disease: * Recurrent Enterococcus faecalis bacteremia, three months apart. * ADOLFO negative for endocarditis or vegetations. * Source unclear: possible infected pancreatic mass, retained gallstones, or infected hematoma. * Treated with ampicillin, ceftriaxone, then transitioned to daptomycin due to transaminitis. * Plan for 14 days IV antibiotics, then oral linezolid if cultures remain negative. * Blood cultures pending. * As synovial fluid culture was negative, thus the need to further investigate the pancreatic mass prompting inpatient transfer to [facility] for EUS of the pancreas * General Surgery: * No evidence of intra-abdominal abscess or surgical source for bacteremia. * Pancreatic head mass is concerning for neoplasm or infected hematoma. * No surgical intervention indicated at this time. * Strongly recommend transfer for EUS and further evaluation. * Orthopedics: * Right knee effusion aspirated (45 mL serosanguineous, mildly cloudy fluid). * Gram stain negative, many WBCs, cultures negative to date (specimen clotted, limited analysis). * Exam improved, no evidence of septic arthritis. * Severe bilateral knee osteoarthritis. * Conservative management recommended. 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 * ADOLFO: Normal LV function (EF 60?65%), moderate concentric LVH, moderate mitral regurgitation, trace tricuspid/pulmonic regurgitation, moderately enlarged LA, TAVR valve trileaflet, no vegetations. * Stable from a cardiac standpoint. * Hematology: * Acute anemia, likely multifactorial (possible delayed duodenal bleed post- ERCP, chronic disease, or GI source). * Transfused PRBCs, hemoglobin stabilized. * Iron saturation 38%. * Nephrology: * Stage 4 chronic kidney disease (baseline creatinine ?2.1?2.5). * Other: * Type 2 diabetes mellitus with hyperglycemia (managed with SSI). * Chronic anticoagulation held due to anemia and possible bleeding. * History of DVT (peroneal vein), currently not anticoagulated. * Bilateral lower extremity edema, patient requests Lasix be restarted. Active Problems and Assessment Recurrent Enterococcus faecalis bacteremia?(R78.81, B95.2): * Source unclear; possible pancreatic mass, retained stones, or infected hematoma. 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): * Requires EUS for further evaluation; possible neoplasm or infected hematoma.Right knee effusion?(M25.461): * Aspirated, no evidence of septic arthritis, conservative management.History of laparoscopic cholecystectomy?(Z90.49): * September 2024, complicated by DVT and bacteremia.Type 2 diabetes mellitus with hyperglycemia?(E11.65): * Managed with SSI.Chronic anticoagulation?(Z79.01): * Held due to anemia and possible bleeding.DVT, peroneal vein?(I82.486): * Not currently anticoagulated.Stage 4 chronic kidney disease?(N18.4): * Baseline creatinine ?2.1?2.5.Degenerative joint disease, bilateral knees?(M17.0, M17.9): * Severe OA, conservative management.History of TAVR and pacemaker?(Z95.2, Z95.0): * Stable.Hypertension?(I10): * Stable, some antihypertensives held for hypotension.Leukocytosis?(D72.109): * May be reactive or related to infection/inflammation. Summary of Interventions * IV antibiotics: ampicillin, ceftriaxone, transitioned to daptomycin. * Blood cultures, knee aspiration, ADOLFO, CT imaging. * PRBC transfusions for anemia. * SSI for diabetes. * Antihypertensives held as needed for hypotension. * Lasix held, patient requests restart for edema. * Awaiting transfer for EUS and further management of pancreatic mass. Plan at Transfer * Continue IV antibiotics per ID recommendations. * Monitor blood cultures and labs. * Resume Lasix as tolerated for volume overload. * inpatient EUS at receiving facility for pancreatic mass. * Continue supportive care for CKD, diabetes, and hypertension. * Monitor for signs of infection, bleeding, or decompensation. Patient Condition: Stable Time Spent with Patient Time attestation: Total time spent providing and/or coordinating transfer services: DS: Data Data Completed and Pending Labs on day of discharge: Preliminary micro results at discharge 12/10/24 18:13 Blood Culture - Preliminary Blood 12/10/24 18:35 Blood Culture - Preliminary Blood
--- NOTE | 2024-12-15 14:03 | PM.TDS ---
Transfer Discharge Sum: Prov Provider Date of admission: 12/01/24 22:35 Primary care physician: Stephania Clarke APRN Admitting clinician: Joseph Nguyen MD Consults: 12/01/24 Consult to Physician Routine Comment: Consulting Provider: Kal Palma Reason for consultation: post ERCP, sepsis Has provider been notified: Yes 12/03/24 Wound/ET Consult Routine Reason for Consult:: Wound on buttocks 12/06/24 Consult to Physician Routine Comment: Spoke to exchange @1200 12/06 [facility] [place] Consulting Provider: Guicho Kunz call manager/MD group to consult: [facility] - id consult Reason for consultation: e faecalis BSI w/ hx of e faecalis BSI Has provider been notified: Yes 12/06/24 11:40 Consult Infectious Disease Pharmacist Routine Comment: Initiate coordination of ID Physician consult. 12/06/24 12:00 Consult Infectious Disease Pharmacist Routine Comment: Initiate coordination of ID Physician consult. 12/06/24 16:57 Consult to Physician Routine Comment: Spoke to Dr. Farnsworth office @ 08:43am ([facility]) Consulting Provider: Rachid Farnsworth call manager/ group to consult: Cardiology Reason for consultation: ADOLFO/Bactremia Has provider been notified: Yes 12/09/24 09:15 Consult to Physician Routine Comment: Sent text message to Dr. Hdz @ 10:05am(-) Consulting Provider: Andrea Talley call manager/MD group to consult: Ortho Reason for consultation: Right knee pain. Has provider been notified: Yes 12/13/24 Consult to Physician Routine Comment: Consulting Provider: Rosendo Brennan call manager/MD group to consult: General Surgery Previous Dr. Brennan patient- prolonged hospitalization post op. Return on 12/01 with anemia. Reason for consultation: S/P Sunni with Anemia/Bacteremia Has provider been notified: Yes DS: Admitting Diagnosis Discharge Date 12/14/24 Admitting Diagnosis anemia and SIRS DS: Discharge Diagnosis Discharge Diagnosis (1) Bacteremia: Code(s): R78.81 - Bacteremia Status: Acute Transfer Discharge Sum: Med Medications Active and Home Medications: Home Medications furosemide 40 mg tablet See Rx Instructions .Route .COMPLEX #180 tabs 08/02/24 [Rx Confirmed 12/02/24] doxazosin 4 mg tablet (Cardura) 4 mg PO QHS #30 tabs 08/08/24 [Rx Confirmed 12/02/24] clopidogrel 75 mg tablet (Plavix) 75 mg PO DAILY 09/30/24 [History Confirmed 12/02/24] docusate sodium 100 mg capsule (Colace) 100 mg PO DAILY 09/30/24 [History Confirmed 12/02/24] fluticasone propionate 50 mcg/actuation nasal spray,suspension (Flonase Allergy Relief) 2 spray intranasal DAILY PRN allergy symptoms 09/30/24 [History Confirmed 12/02/24] metolazone 5 mg tablet 5 mg PO DAILY 09/30/24 [History Confirmed 12/02/24] verapamil 120 mg tablet 120 mg PO DAILY 09/30/24 [History Confirmed 12/02/24] Saccharomyces boulardii 250 mg capsule (Florastor) 250 mg PO BID #60 caps 10/24/24 [Rx Confirmed 12/02/24] apixaban 5 mg tablet (Eliquis) 5 mg PO Q12HR #60 tabs 10/24/24 [Rx Confirmed 12/02/24] pantoprazole 40 mg tablet,delayed release 40 mg PO QAM #40 tabs 10/24/24 [Rx Confirmed 12/02/24] polyethylene glycol 3350 17 gram oral powder packet (Miralax) 17 g PO QAM #14 ea 10/24/24 [Rx Confirmed 12/02/24] ezetimibe 10 mg tablet (Zetia) 10 mg PO DAILY #90 tabs 10/30/24 [Rx Confirmed 12/02/24] famotidine 20 mg tablet (Acid Controller) 20 mg PO BID #180 tabs 10/30/24 [Rx Confirmed 12/02/24] finasteride 5 mg tablet 5 mg PO DAILY #90 tabs 10/30/24 [Rx Confirmed 12/02/24] pioglitazone 15 mg tablet (Actos) 15 mg PO DAILY #90 tabs 10/30/24 [Rx Confirmed 12/02/24] methocarbamol 750 mg tablet 750 mg PO TID PRN muscle spasm #30 tabs 11/06/24 [Rx Confirmed 12/02/24] prednisone 20 mg tablet 40 mg (2 x 20 mg) PO DAILY 4 days #8 tabs 11/06/24 [Rx Confirmed 12/02/24] morphine 15 mg immediate release tablet 15 mg PO Q8H PRN pain #80 tabs 11/20/24 [Rx Confirmed 12/02/24] Transfer Discharge Sum: Hosp Hospital Course Hospital course: History of Present Illness 89-year-old male with a complex medical history including: Recent choledocholithiasis and enterococcal bacteremia (September 2024) requiring ERCP with removal of 10 gallstones and difficult laparoscopic cholecystectomy. Hospitalization complicated by lower extremity DVT, managed with Eliquis and Plavix. Readmitted 12/01/2024 for increasing weakness, lethargy, and profound anemia (Hb 5.2). Blood cultures positive for Enterococcus faecalis, same organism as prior admission. Imaging revealed an enlarging mass in the head of the pancreas (not present in September, increased since October), persistent post-surgical changes in the gallbladder fossa, and right knee effusion. Ongoing right groin/hip/knee pain, chronic back pain, and bilateral lower extremity edema. Unable to undergo MRI due to pacemaker; [facility] at [facility] has been rescheduled twice due to prolonged hospitalization. Hospital Course Infectious Disease: Recurrent Enterococcus faecalis bacteremia, three months apart. ADOLFO negative for endocarditis or vegetations. Source unclear: possible infected pancreatic mass, retained gallstones, or infected hematoma. Treated with ampicillin, ceftriaxone, then transitioned to daptomycin due to transaminitis. Plan for 14 days IV antibiotics, then oral linezolid if cultures remain negative. Blood cultures pending. As synovial fluid culture was negative, thus the need to further investigate the pancreatic mass prompting inpatient transfer to [facility] for EUS of the pancreas General Surgery: No evidence of intra-abdominal abscess or surgical source for bacteremia. Pancreatic head mass is concerning for neoplasm or infected hematoma. No surgical intervention indicated at this time. Strongly recommend transfer for EUS and further evaluation. Orthopedics: Right knee effusion aspirated (45 mL serosanguineous, mildly cloudy fluid). Gram stain negative, many WBCs, cultures negative to date (specimen clotted, limited analysis). Exam improved, no evidence of septic arthritis. Severe bilateral knee osteoarthritis. Conservative management recommended. 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 ADOLFO: Normal LV function (EF 60?65%), moderate concentric LVH, moderate mitral regurgitation, trace tricuspid/pulmonic regurgitation, moderately enlarged LA, TAVR valve trileaflet, no vegetations. Stable from a cardiac standpoint. Hematology: Acute anemia, likely multifactorial (possible delayed duodenal bleed post-ERCP, chronic disease, or GI source). Transfused PRBCs, hemoglobin stabilized. Iron saturation 38%. Nephrology: Stage 4 chronic kidney disease (baseline creatinine ?2.1?2.5). Other: Type 2 diabetes mellitus with hyperglycemia (managed with SSI). Chronic anticoagulation held due to anemia and possible bleeding. History of DVT (peroneal vein), currently not anticoagulated. Bilateral lower extremity edema, patient requests Lasix be restarted. Active Problems and Assessment Recurrent Enterococcus faecalis bacteremia?(R78.81, B95.2): Source unclear; possible pancreatic mass, retained stones, or infected hematoma. 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): Requires EUS for further evaluation; possible neoplasm or infected hematoma.Right knee effusion?(M25.461): Aspirated, no evidence of septic arthritis, conservative management.History of laparoscopic cholecystectomy?(Z90.49): September 2024, complicated by DVT and bacteremia.Type 2 diabetes mellitus with hyperglycemia?(E11.65): Managed with SSI.Chronic anticoagulation?(Z79.01): Held due to anemia and possible bleeding.DVT, peroneal vein?(I82.409): Not currently anticoagulated.Stage 4 chronic kidney disease?(N18.4): Baseline creatinine ?2.1?2.5.Degenerative joint disease, bilateral knees?(M17.0, M17.9): Severe OA, conservative management.History of TAVR and pacemaker?(Z95.2, Z95.0): Stable.Hypertension?(I10): Stable, some antihypertensives held for hypotension.Leukocytosis?(D72.829): May be reactive or related to infection/inflammation. Summary of Interventions IV antibiotics: ampicillin, ceftriaxone, transitioned to daptomycin. Blood cultures, knee aspiration, ADOLFO, CT imaging. PRBC transfusions for anemia. SSI for diabetes. Antihypertensives held as needed for hypotension. Lasix held, patient requests restart for edema. Awaiting transfer for EUS and further management of pancreatic mass. Plan at Transfer Continue IV antibiotics per ID recommendations. Monitor blood cultures and labs. Resume Lasix as tolerated for volume overload. inpatient EUS at receiving facility for pancreatic mass. Continue supportive care for CKD, diabetes, and hypertension. Monitor for signs of infection, bleeding, or decompensation. Patient Condition: Stable Time Spent with Patient Time attestation: Total time spent providing and/or coordinating transfer services: DS: Data Data Completed and Pending Labs on day of discharge: Preliminary micro results at discharge 12/10/24 18:13 Blood Culture - Preliminary Blood 12/10/24 18:35 Blood Culture - Preliminary Blood
== END 2024-12-14 18:17 | disposition short-term general hospital (02) | DRG 872 ==
LOC: ANHED 19:45 → ANHIMU 23:20 → ANH2MED 12-04 17:26
PROVIDERS: General Practice; Internal Medicine; Internal Medicine Cardiovascular Disease; Nurse Practitioner Family; Admitting Provider General Practice; Emergency Provider Student in an Organized Health Care Education/Training Program; PCP Nurse Practitioner Family; Visit Provider General Practice
PROC: B24BZZ4 Ultrasonography of Heart with Aorta, Transesophageal (ICD-10-PCS; CPT 93312; principal; 2024-12-07 10:00)
DX: R78.81 Bacteremia (principal); I13.0 Hypertensive heart and chronic kidney disease with heart failure and stage 1 through stage 4 chronic kidney disease, or unspecified chronic kidney disease; I50.32 Chronic diastolic (congestive) heart failure; N18.4 Chronic kidney disease, stage 4 (severe); D63.1 Anemia in chronic kidney disease; E11.22 Type 2 diabetes mellitus with diabetic chronic kidney disease; E78.2 Mixed hyperlipidemia; I71.40 Abdominal aortic aneurysm, without rupture, unspecified; B95.2 Enterococcus as the cause of diseases classified elsewhere; K21.9 Gastro-esophageal reflux disease without esophagitis; K76.0 Fatty (change of) liver, not elsewhere classified; N40.0 Benign prostatic hyperplasia without lower urinary tract symptoms; K86.89 Other specified diseases of pancreas; M25.461 Effusion, right knee; M17.11 Unilateral primary osteoarthritis, right knee; M25.551 Pain in right hip; M72.0 Palmar fascial fibromatosis [Dupuytren]; M65.331 Trigger finger, right middle finger; Z20.822 Contact with and (suspected) exposure to COVID-19; Z79.01 Long term (current) use of anticoagulants; Z79.02 Long term (current) use of antithrombotics/antiplatelets; Z95.0 Presence of cardiac pacemaker; Z95.4 Presence of other heart-valve replacement
CPT/HCPCS: 20610; 36415; 36430; 70450; 71045; 71260; 72100; 72192; 73502; 73700; 74177; 80053; 80202; 80307; 81001; 82077; 82274; 82550; 82728; 82945; 82948; 83010; 83540; 83550; 83605; 83615; 83690; 83735; 84157; 85014; 85018; 85025; 85027; 85046; 85610; 85730; 86140; 86850; 86900; 86901; 86923; 87040; 87070; 87075; 87086; 87205; 87637; 87641; 89051; 89060; 93005; 93312; 93320; 93325; 96361; 96365; 96366; 96367; 96375; 97110; 97162; 97166; 97530; 99285; A9270; J0290; J0692; J0696; J0878; J1171; J1938; J2250; J2919; J3010; J3373; J7030; J7040; J7050; P9016; Q9967